=== PATIENT | female | born 2000 | race Caucasian/White ===

== ENCOUNTER 2018-02-09 20:54 | Emergency (ER) | payer SELFPAY ==
--- OUTSIDE RECORDS SUMMARY | 2018-02-09 20:57 | XMS REPORT | Clinical Summary ---
:2000 Author Organization [facility] Address [address] [place] [address] Phone Care Team Providers Name Role Phone Unavailable Primary Care Provider Unavailable Allergies Active Allergy Reactions Severity Noted Date Comments Onion Hives 05/18/2017 Tree Nut 06/17/2017 Latex Rash Low 04/07/2017 Acetaminophen-Pamabrom Rash Low 04/07/2017 Bumps in mouth Promethazine Anxiety Low 04/07/2017 Severe anxiety attacks Current Medications Prescription Sig. Disp. Refills Start End Status Date Date insulin regular If [id number], give 1unit 10 mL 3 04/09/20 Active (HUMULIN R,NOVOLIN R) If DG=[id number], give 2units 17 100 unit/mL injection If GF=[id number], give 4units If HI=[id number], give 6units If UZ=[id number], give 8units. medroxyPROGESTERone Inject 150 mg Active (DEPO-PROVERA) 150 intramuscularly mg/mL every 3 (three) injectionIndications: months. Contraception sertraline (ZOLOFT) 50 Take 50 mg by Active MG tabletIndications: mouth daily. Anxiety with Depression traZODone (DESYREL) 50 Take 50 mg by Active MG tabletIndications: mouth nightly. insomnia associated with depression ondansetron Take 4 mg by mouth Active (ZOFRAN-ODT) 4 MG every 8 (eight) disintegrating tablet hours as needed for Nausea. insulin regular Inject 0.1 mLs (10 10 mL 1 06/19/20 Active (HUMULIN R,NOVOLIN R) Units total) 17 100 unit/mL subcutaneously 3 injectionIndications: (three) times type 1 diabetes daily before meals mellitus Use as directed.. insulin degludec Inject 30 Units 2 Syringe 1 06/19/20 Active (TRESIBA FLEXTOUCH subcutaneously 17 U-100) 100 unit/mL (3 every evening. mL) InPn insulin glargine Inject 40 Units 04/09/ Discontinued (LANTUS) 100 unit/mL subcutaneously 2017 injection nightly Use as directed . insulin regular Inject 15 Units 04/09/ Discontinued (HUMULIN R,NOVOLIN R) subcutaneously 2016 100 unit/mL (three) times injectionIndications: daily before meals type 1 diabetes Use as directed . mellitus insulin glargine Inject 40 Units 10 mL 3 04/09/2004/09/ Discontinued (LANTUS) 100 unit/mL subcutaneously 17 2016 injection nightly Use as directed. insulin regular Inject 0.15 mLs 10 mL 3 04/09/20 Discontinued (HUMULIN R,NOVOLIN R) (15 Units total) 17 2016 100 unit/mL subcutaneously 3 injectionIndications: (three) times type 1 diabetes daily before meals mellitus Use as directed.. insulin regular Use as directed. 10 mL 3 04/09/2004/09/ Discontinued (HUMULIN R,NOVOLIN R) 2016 100 unit/mL injection insulin glargine Inject 40 Units 10 mL 3 04/09/2004/09/ Discontinued (LANTUS) 100 unit/mL subcutaneously 17 2016 injection nightly Use as directed. insulin glargine Inject 25 Units 10 mL 3 04/09/2006/19/ Discontinued (LANTUS) 100 unit/mL subcutaneously 2016 injection nightly Use as directed. cefdinir (OMNICEF) 300 Take 1 capsule 14 capsule 0 05/19/2005/19/ Discontinued MG capsule (300 mg total) by 2016 mouth 2 (two) times daily for 7 days. levoFLOXacin Take 1 tablet (250 7 tablet 0 05/19/2005/26/ (LEVAQUIN) 250 MG mg total) by mouth 2016 tablet daily for 7 days. Active Problems Problem Noted Date Diabetic ketoacidosis without coma associated with diabetes mellitus due 06/17 to underlying condition (HCC) Diabetic ketoacidosis without coma associated with type 1 diabetes 05/18/2017 mellitus (HCC) DKA, type 1 (HCC) 04/07/2017 Nausea 04/07/2017 Encounters Date Type Specialty Care Team Description 06/17/2017 - Hospital General Internal Davy Arevalo Diabetic ketoacidosis 06/19/2017 Encounter Medicine DO Jeffrey without coma Robbie Pichardo associated with MD William diabetes mellitus due to underlying condition (HCC) (Primary Dx);Nausea and vomiting, intractability of vomiting not specified, unspecified vomiting type;Metabolic acidosis;Nausea;Type 1 diabetes mellitus with ketoacidosis without coma (HCC);LUCILA (acute kidney injury) (HCC) 06/17/2017 Orders Only General Internal Medicine 05/18/2017 - [facility] General Internal [place] Diabetic ketoacidosis 05/19/2017 Encounter Medicine Freeman Díaz MD without coma Jamey Olivas associated with type 1 MD Shelly diabetes mellitus Smith, Obed Precious, (HCC) (Primary Dx) 04/07/2017 - Hospital Intensive Care Francis Sarmiento, Type 1 diabetes 04/09/2017 Encounter Maldonado Alvarez mellitus with ketoacidosis without Christina Hammond MD coma (HCC);Uncontrolled type 1 diabetes mellitus without complication (HCC);Hypoglycemia 04/07/2017 Orders Only General Internal Medicine after 02/08/2017 Immunizations Name Dates Previously Given Next Due Influenza Three-TIV PF 5+ YR 05/18/2017 Social History Tobacco Use Types Packs/Day Years Used Date Former Smoker Quit: 06/18/2016 Smokeless Tobacco: Never Used Alcohol Use Drinks/Week oz/Week Comments No Sex Assigned at Date Recorded Not on file Last Filed Vital Signs Vital Sign Reading Time Taken Blood Pressure 98/51 06/19/2017 11:24 AM [employer] Pulse 100 06/19/2017 11:24 AM [employer] Temperature 36.6 C (97.9 F) 06/19/2017 11:24 AM [employer] Respiratory Rate 20 06/19/2017 11:24 AM [employer] Oxygen Saturation 100% 06/19/2017 11:24 AM [employer] Inhaled Oxygen Concentration - - Weight 53.4 kg (117 lb 12.8 oz) 06/19/2017 12:00 AM [employer] Height 157.5 cm (5' 2") 06/17/2017 7:32 AM [employer] Body Mass Index 21.55 06/19/2017 12:00 AM [employer] Plan of Treatment Not on file Procedures Procedure Name Priority Date/Time Associated Diagnosis Comments CRITICAL CARE Routine 06/17/2017 8:43 AM Results for this [employer] procedure are in the results section. CRITICAL CARE Routine 05/18/2017 5:37 AM Diabetic ketoacidosis Results for this CDT without coma procedure are in associated with type 1 the results diabetes mellitus section. (HCC) after 02/08/2017 Results RHYTHM STRIP - SCAN (06/22/2017 2:03 PM)Only the most recent of3 resultswithin the time period is included.POC-Glucose meter (06/19/2017 10:22 AM)Only the most recent of89 resultswithin the time period is included. Component Value Ref Range POC-Glucose Meter 230 (H)Comment: TESTED AT [facility] [address] [facility] 70 - 110 mg/dL [facility] [address] Specimen Performing Laboratory Blood [address] [address] Basic Metabolic Panel (06/18/2017 8:56 AM)Only the most recent of18 resultswithin the time period is included. Component Value Ref Range Sodium 135 135 - 148 meq/L Potassium 3.5 3.5 - 5.5 meq/L Chloride 108 (H) 98 - 106 meq/L CO2 20 20 - 31 meq/L BUN 8 (L) 10 - 26 mg/dL Creatinine 0.90 0.50 - 1.20 mg/dL Glucose 164 (H) 70 - 110 mg/dL Calcium 8.6 8.5 - 10.5 mg/dL EGFR 81Comment: ESTIMATED GFR IS NOT ACCURATE mL/min/1.73 sq m CREATININE CLEARANCE IN PREDICTING GLOMERULAR FILTRATION RATE. ESTIMATED GFR IS NOT APPLICABLE FOR DIALYSIS PATIENTS. Specimen Performing Laboratory Blood [facility] [address] [place] [address] Glucose, serum (06/17/2017 6:45 PM)Only the most recent of8 resultswithin the time period is included. Component Value Ref Range Glucose 230 (H) 70 - 110 mg/dL Specimen Performing Laboratory Blood [facility] [address] [place] [address] Narrative If last glucose was less than 500, may do bedside glucose instead of serum glucose. Potassium (06/17/2017 2:02 PM)Only the most recent of5 resultswithin the time period is included. Component Value Ref Range Potassium 3.9 3.5 - 5.5 meq/L Specimen Performing Laboratory Blood [facility] [address] [place] [address] Narrative If last glucose was less than 500, may do bedside glucose instead of serum glucose. Hemoglobin A1c (06/17/2017 9:43 AM)Only the most recent of3 resultswithin the time period is included. Component Value Ref Range Hemoglobin A1C >14.0 (H) 4.3 - 6.1 % Specimen Performing Laboratory Blood - Line, Venous [facility] [address] [facility] [place] [address] Critical Care (06/17/2017 8:43 AM) Narrative Davy Arevalo, DO 06/17/20178:43 AM Critical Care Performed by: DAVY AREVALO Authorized by: DAVY AREVALO Total critical care time: 35 minutes Critical care time was exclusive of separately billable procedures and treating other patients. Critical care was necessary to treat or prevent imminent or life-threatening deterioration of the following conditions: metabolic crisis and endocrine crisis. Critical care was time spent personally by me on the following activities: discussions with consultants, ordering and review of laboratory studies, re-evaluation of patient's condition and review of old charts. ECG 12 lead (06/17/2017 8:03 AM)Only the most recent of3 resultswithin the time period is included. Specimen Performing Laboratory GE MUSE Narrative Ventricular Rate 97 BPM Atrial Rate 97 BPM P-R Interval 146 ms QRS Duration 72 ms Q-T Interval 372 ms QTC Calculation(Bazett) 472 ms P Hack[place] 67 degrees R [place] 61 degrees T [place] 40 degrees Normal sinus rhythm Normal ECG Procedure Note Interface, External Ris In - 06/17/2017 5:38 PM [employer] Ventricular Rate 97 BPM Atrial Rate 97 BPM P-R Interval 146 ms QRS Duration 72 ms Q-T Interval 372 ms QTC Calculation(Bazett) 472 ms P [place] 67 degrees R [place] 61 degrees T [place] 40 degrees Normal sinus rhythm Normal ECG CBC with platelet count + automated diff (06/17/2017 7:50 AM)Only the most recent of6 resultswithin the time period is included. Component Value Ref Range WBC 7.7 4.0 - 10.0 K/L RBC 5.18 (H) 4.00 - 5.00 M/L Hemoglobin 14.6 12.0 - 15.0 GM/DL Hematocrit 43.9 36.0 - 45.0 % MCV 84.8 82.0 - 99.0 fL MCH 28.1 27.0 - 33.0 pg MCHC 33.1 32.0 - 36.0 GM/DL RDW 12.3 12.0 - 15.0 % Platelets 421 150 - 430 K/CU MM MPV 8.0 6.5 - 10.5 fL nRBC 0 0 - 0 /100 WBC % Neutros 50 % % Lymphs 45 % % Monos 5 % % Eos 1 % % Baso 1 % # Neutros 3.80 1.80 - 8.00 K/L # Lymphs 3.40 1.48 - 4.50 K/L # Monos 0.40 0.00 - 1.30 K/L # Eos 0.10 0.00 - 0.50 K/L # Baso 0.00 0.00 - 0.20 K/L Specimen Performing Laboratory Blood [facility] [address] [place] [address] Screen, urine (06/17/2017 7:50 AM)Only the most recent of2 resultswithin the time period is included. Component Value Ref Range Preg Test, Ur Negative Specimen Performing Laboratory Urine - Urine, [place] [address] Urinalysis w/Microscopic (06/17/2017 7:50 AM)Only the most recent of2 resultswithin the time period is included. Component Value Ref Range Color, UA Colorless Clarity, UA Clear Specific Cromwell, UA 1.025 1.001 - 1.035 pH, UA 5.0 5.0 - 8.0 Protein, UA Negative Negative Glucose, UA >500 mg/dL (A) Negative Ketones, UA 80 mg/dL (A) Negative Bilirubin, UA Negative Negative Blood, UA Negative Negative Nitrite, UA Negative Negative Leukocytes, UA Negative Negative Urobilinogen, UA <1.0 0.2 - 1.0 mg/dL RBC, UA 0 /HPF WBC, UA <1 /HPF Mucus Rare Specimen Source Specimen Performing Laboratory Urine - Urine, [place] [address] CBC with platelet count + automated diff (06/17/2017 7:50 AM)Only the most recent of6 resultswithin the time period is included. Specimen Performing Laboratory Blood Narrative The following orders were created for panel order CBC with platelet count + automated diff. Procedure Abnormality Status --------- ------ CBC with platelet count ...[[id number]]AbnormalFinal result Please view results for these tests on the individual orders. Phosphorus (06/17/2017 7:50 AM)Only the most recent of6 resultswithin the time period is included. Component Value Ref Range Phosphorus 4.0 2.5 - 4.5 mg/dL Specimen Performing Laboratory [facility] [address] [place] [address] Magnesium (06/17/2017 7:50 AM)Only the most recent of6 resultswithin the time period is included. Component Value Ref Range Magnesium 2.0 1.5 - 3.0 mg/dL Specimen Performing Laboratory [facility] [address] [place] [address] pH, venous (06/17/2017 7:50 AM) Component Value Ref Range pH, Maxim 7.18 (LL) 7.32 - 7.[address] [facility] [address] [place] [address] Ketone, blood (06/17/2017 7:50 AM)Only the most recent of4 resultswithin the time period is included. Component Value Ref Range Ketones, Blood 6.1 (H) <0.4 mmol/L Specimen Performing Laboratory [facility] [address] [place] [address] Comprehensive metabolic panel (06/17/2017 7:50 AM) Component Value Ref Range Protein, Total 8.2 6.0 - 8.5 gm/dL Albumin 4.5 3.5 - 5.0 g/dL Alkaline Phosphatase 135 (H) 30 - 115 U/L Total Bilirubin 0.3 0.1 - 1.3 mg/dL Sodium 130 (L) 135 - 148 meq/L Potassium 4.6 3.5 - 5.5 meq/L Chloride 96 (L) 98 - 106 meq/L CO2 10 (LL) 20 - 31 meq/L BUN 16 10 - 26 mg/dL Creatinine 1.49 (H) 0.50 - 1.20 mg/dL Glucose 637 (HH) 70 - 110 mg/dL Calcium 9.5 8.5 - 10.5 mg/dL AST 12 5 - 40 U/L ALT 14 6 - 50 U/L EGFR 45Comment: ESTIMATED GFR IS NOT ACCURATE mL/min/1.73 sq m CREATININE CLEARANCE IN PREDICTING GLOMERULAR FILTRATION RATE. ESTIMATED GFR IS NOT APPLICABLE FOR DIALYSIS PATIENTS. Specimen Performing Laboratory Blood [facility] [address] [place] [address] Calcium, Ionized (05/18/2017 4:08 PM) Component Value Ref Range Calcium, Ion 1.13 1.12 - 1.27 mmol/L pH, Blood 7.30 Specimen Performing Laboratory Blood [facility] [address] [place] [address] Narrative Check serum Ionized Calcium level after 4 hours after IV Calcium replacement. Blood culture (05/18/2017 9:32 AM)Only the most recent of4 resultswithin the time period is included. Component Value Ref Range Result No growth in 5 days Specimen Performing Laboratory Blood - Arm, Left [facility] [address] [place] [address] Procalcitonin (05/18/2017 9:14 AM) Component Value Ref Range Procalcitonin <0.05 <0.05 ng/mL Specimen Performing Laboratory Blood [facility] [address] [place] [address] Narrative SEPSIS RISK (ng/mL) Low:0.05-0.50 Intermediate: 0.51-2.00 High: >=2.01 Urinalysis w/Microscopic + Reflex to Culture - Clear Catch (05/18/2017 5:45 AM) Component Value Ref Range Color, UA Colorless Clarity, UA Hazy Specific Cromwell, UA 1.022 1.001 - 1.035 pH, UA 5.0 5.0 - 8.0 Protein, UA Negative Negative Glucose, UA >500 mg/dL (A) Negative Ketones, UA 80 mg/dL (A) Negative Bilirubin, UA Negative Negative Blood, UA Large (A) Negative Nitrite, UA Negative Negative Leukocytes, UA Negative Negative Urobilinogen, UA <1.0 0.2 - 1.0 mg/dL RBC, UA 170 /HPF WBC, UA 27 /HPF Mucus Rare Specimen Source Specimen Performing Laboratory Urine [facility] [address] [place] [address] Influenza antigen A & B (Rapid) (05/18/2017 5:45 AM) Component Value Ref Range Rapid Influenza A Antigen Negative Negative Rapid influenza B Antigen Negative Negative Specimen Performing Laboratory Nasopharyngeal - Nasal Mucosa [facility] [address] [place] [address] Urine culture (05/18/2017 5:45 AM)Only the most recent of2 resultswithin the time period is included. Component Value Ref Range Result Result 20-29,000 col/mL Escherichia coli (A) Result <10,000 col/mL Beta-hemolytic streptococcus group B, by serological grouping (A)Comment: If this patient is , please refer to ACOG guidelines for appropriate screening and management of colonized women. Specimen Performing Laboratory Urine [facility] [address] [place] [address] Narrative 10-19,000 col/mL skin christophe Organism Antibiotic Method Susceptibility Escherichia coli Amikacin <=2: Susceptible Escherichia coli Ampicillin + Sulbactam Resistant Escherichia coli Aztreonam <=1: Susceptible Escherichia coli Cefepime <=1: Susceptible Escherichia coli Cefoxitin <=4: Susceptible Escherichia coli Ceftazidime <=1: Susceptible Escherichia coli Ceftriaxone <=1: Susceptible Escherichia coli Ertapenem <=0.5: Susceptible Escherichia coli Gentamicin <=1: Susceptible Escherichia coli Levofloxacin <=0.12: Susceptible Escherichia coli Meropenem <=0.25: Susceptible Escherichia coli Nitrofurantoin <=16: Susceptible Escherichia coli Piperacillin + Tazobactam <=4: Susceptible Escherichia coli Tobramycin <=1: Susceptible Escherichia coli Trimethoprim + Sulfamethoxazole <=20: Susceptible Critical Care (05/18/2017 5:37 AM) Narrative Rafa Hernandez MD 05/18/20175:37 AM Critical Care Performed by: RAFA HERNANDEZ Authorized by: RAFA HERNANDEZ Critical care was necessary to treat or prevent imminent or life-threatening deterioration of the following conditions: endocrine crisis. Critical care was time spent personally by me on the following activities: blood draw for specimens, development of treatment plan with patient or surrogate, discussions with consultants, discussions with primary provider, evaluation of patient's response to treatment, ordering and performing treatments and interventions, ordering and review of laboratory studies, ordering and review of radiographic studies and re-evaluation of patient's condition. XR chest 1 view portable / bedside (05/18/2017 5:24 AM)Only the most recent of2 resultswithin the time period is included. Specimen Performing Laboratory GE RIS Narrative FINAL REPORT Comparison examination: 04/07/2017 No pneumothorax, focal pulmonary consolidation, or significant pleural effusion. Normal cardiomediastinal contours. Normal skeleton and soft tissues. Impression: No acute abnormality. Signed: Joesph Foy MD Report Verified Date/Time:05/18/2017 05:52:18 Reading Location: [address] Transitional Reading Room Procedure Note Interface, External Ris In - 05/18/2017 5:54 AM CDT FINAL REPORT Comparison examination: 04/07/2017 No pneumothorax, focal pulmonary consolidation, or significant pleural effusion. Normal cardiomediastinal contours. Normal skeleton and soft tissues. Impression: No acute abnormality. Signed: Joesph Foy MD Report Verified Date/Time: 05/18/2017 05:52:18 Reading Location: [address] Transitional Reading Room Blood gas, venous (05/18/2017 4:54 AM)Only the most recent of2 resultswithin the time period is included. Component Value Ref Range pH, Maxim 7.17 (LL) 7.32 - 7.42 pCO2, Maxim 30 (L) 41 - 51 mmHg pO2, Maxim 35 25 - 40 mmHg O2 Sat, Maxim 53.6 40.0 - 70.0 % HCO3, Maxim 11 (L) 21 - 29 mmol/L Base Excess, Maxim -16.5 (L) -2.0 - 3.0 mmol/L Patient Temperature 36.9 C FIO2 21.0 % Specimen Performing Laboratory Blood [facility] [address] [place] [address] Hepatic function panel (05/18/2017 4:54 AM) Component Value Ref Range Protein, Total 7.9 6.0 - 8.5 gm/dL Albumin 4.1 3.5 - 5.0 g/dL Total Bilirubin 0.4 0.1 - 1.3 mg/dL Bilirubin, Direct 0.2 0.0 - 0.5 mg/dL Alkaline Phosphatase 136 (H) 30 - 115 U/L AST 11 5 - 40 U/L ALT 10 6 - 50 U/L Specimen Performing Laboratory [facility] [address] [place] [address] Narrative If last glucose was less than 500, may do bedside glucose instead of serum glucose. Specimen slightly lipemic Manual Differential (04/09/2017 5:24 AM)Only the most recent of2 resultswithin the time period is included. Component Value Ref Range Total Counted Specimen Performing Laboratory Blood [address] [address] TSH/Free T4 If Indicated (04/07/2017 4:18 PM) Component Value Ref Range TSH 0.95 0.35 - 4.94 uIU/mL Specimen Performing Laboratory Blood [address] [address] Troponin I (04/07/2017 4:18 PM) Component Value Ref Range Troponin I <0.01 0.00 - 0.03 ng/mL Specimen Performing Laboratory Blood [address] [address] Narrative Effective 06/20/2014: Reference Range Change New: 0.00-0.03 Previous 0.00-0.15 Troponin I (TnI) levels must be interpreted in the context of the presenting symptoms and the clinical findings. Elevated TnI levels indicate myocardial damage, but are not specific for ischemic heart disease. Elevated TnI levels are seen in patients with other cardiac conditions (including myocarditis and congestive heart failure), and slight TnI elevations occur in patients with other conditions, including sepsis, renal failure, acidosis, acute neurological disease, and persistent tachyarrhythmia. Lactic acid, venous, whole blood (04/07/2017 4:18 PM) Component Value Ref Range Lactate, Venous 1.1 0.5 - 2.2 mmol/L Specimen Performing Laboratory Blood [address] [address] Narrative Effective 12/05/2015: Units/Reference Range Change New: 0.5-2.2 mmol/LPrevious: 5-20 mg/dL Lipase (04/07/2017 4:18 PM) Component Value Ref Range Lipase 33 8 - 78 U/L Specimen Performing Laboratory Blood [address] [address] Amylase (04/07/2017 4:18 PM) Component Value Ref Range Amylase 66 25 - 125 U/L Specimen Performing Laboratory Blood [address] [address] after 02/08/2017
--- OUTSIDE RECORDS SUMMARY | 2018-02-09 20:59 | XMS REPORT ---
:2000 [facility] Wilfred Gallardo [address] [place] [id number] Care Team Providers Name Role Phone DAVY CRAWLEY Unavailable Unavailable RAFA HODGES Unavailable Unavailable TOMER CHACON Unavailable Unavailable Problems This patient has no known problems. Allergies, Adverse Reactions, Alerts This patient has no known allergies or adverse reactions. Medications This patient has no known medications. Results Test Description Test Time Test Comments Text Results Atomic Results Result Comments POCT-GLUCOSE METER 2017-06-19 10:41:00 Test Item Value Reference Range Comments POC-GLUCOSE METER (BEAKER) (test 230 mg/dL 70-110 TESTED AT [address] ywqi=1517) [facility] [address] POCT-GLUCOSE [id number] 08:32:00 Test Item Value Reference Range Comments POC-GLUCOSE METER (BEAKER) 70 mg/dL 70-110 TESTED AT [facility] [id number] [place] [address] (test ogcg=0674) [facility] [address] POCT-GLUCOSE [id number] 05:13:00 Test Item Value Reference Range Comments POC-GLUCOSE METER (BEAKER) 152 mg/dL 70-110 TESTED AT [facility] [id number] [place] [address] (test ujed=9187) [facility] [address] POCT-GLUCOSE [id number] 04:14:00 Test Item Value Reference Range Comments POC-GLUCOSE METER (BEAKER) 55 mg/dL 70-110 TESTED AT [facility] [id number] [place] [address] (test vbxb=3185) [facility] [address] POCT-GLUCOSE [id number] 20:37:00 Test Item Value Reference Range Comments POC-GLUCOSE METER (BEAKER) 204 mg/dL 70-110 TESTED AT [facility] [id number] [place] [address] (test legx=3641) [facility] [address] POCT-GLUCOSE [id number] 19:01:00 Test Item Value Reference Range Comments POC-GLUCOSE METER (BEAKER) 88 mg/dL 70-110 TESTED AT [facility] [address] [facility] (test enuo=2893) [facility] [address] POCT-GLUCOSE [id number] 17:27:00 Test Item Value Reference Range Comments POC-GLUCOSE METER (BEAKER) 253 mg/dL 70-110 TESTED AT [facility] [id number] [place] [address] (test dxtp=0974) [facility] [address] POCT-GLUCOSE [id number] 15:36:00 Test Item Value Reference Range Comments POC-GLUCOSE METER (BEAKER) 366 mg/dL 70-110 TESTED AT [facility] [id number] [place] [address] (test nkma=5361) [facility] [address] POCT-GLUCOSE [id number] 11:51:00 Test Item Value Reference Range Comments POC-GLUCOSE METER (BEAKER) 194 mg/dL 70-110 TESTED AT [facility] [id number] [place] [address] (test zivl=4913) [facility] [address] POCT-GLUCOSE [id number] 10:19:00 Test Item Value Reference Range Comments POC-GLUCOSE METER (BEAKER) 147 mg/dL 70-110 TESTED AT [facility] [id number] [place] [address] (test dyaq=9952) [facility] [address] BASIC METABOLIC [id number] 09:23:00 Test Item Value Reference Range Comments SODIUM (BEAKER) (test 135 meq/L 135-148 zlwc=459) POTASSIUM (BEAKER) (test 3.5 meq/L 3.5-5.5 ukea=652) CHLORIDE (BEAKER) (test 108 meq/L 98-106 cvly=413) CO2 (BEAKER) (test 20 meq/L 20-31 xywk=633) BLOOD UREA NITROGEN 8 mg/dL 10-26 (BEAKER) (test tfog=483) CREATININE (BEAKER) (test 0.90 mg/dL 0.50-1.20 cnrg=888) GLUCOSE RANDOM (BEAKER) 164 mg/dL 70-110 (test kbzu=525) CALCIUM (BEAKER) (test 8.6 mg/dL 8.5-10.5 secw=798) EGFR (BEAKER) (test 81 mL/min/1.73 sq m ESTIMATED GFR IS NOT ajqe=9477) ACCURATE CREATININE CLEARANCE IN PREDICTING GLOMERULAR FILTRATION RATE. ESTIMATED GFR IS NOT APPLICABLE FOR DIALYSIS PATIENTS. POCT-GLUCOSE [id number] 08:02:00 Test Item Value Reference Range Comments POC-GLUCOSE METER (BEAKER) 161 mg/dL 70-110 TESTED AT [facility] [address] [facility] (test letz=7096) [facility] [address] POCT-GLUCOSE [id number] 07:03:00 Test Item Value Reference Range Comments POC-GLUCOSE METER (BEAKER) 151 mg/dL 70-110 TESTED AT [facility] [id number] [place] [address] (test mbox=0861) [facility] [address] POCT-GLUCOSE [id number] 05:08:00 Test Item Value Reference Range Comments POC-GLUCOSE METER (BEAKER) 158 mg/dL 70-110 TESTED AT [facility] [id number] [place] [address] (test wjmw=7676) [facility] [address] BASIC METABOLIC [id number] 04:51:00 Test Item Value Reference Range Comments SODIUM (BEAKER) (test 137 meq/L 135-148 sbwl=213) POTASSIUM (BEAKER) (test 3.3 meq/L 3.5-5.5 mcas=135) CHLORIDE (BEAKER) (test 111 meq/L 98-106 lufj=005) CO2 (BEAKER) (test 15 meq/L 20-31 aqjf=962) BLOOD UREA NITROGEN 9 mg/dL 10-26 (BEAKER) (test jfrt=187) CREATININE (BEAKER) (test 0.84 mg/dL 0.50-1.20 nuyi=313) GLUCOSE RANDOM (BEAKER) 160 mg/dL 70-110 (test fkjb=230) CALCIUM (BEAKER) (test 8.3 mg/dL 8.5-10.5 knev=447) EGFR (BEAKER) (test 87 mL/min/1.73 sq m ESTIMATED GFR IS NOT kaun=5229) ACCURATE CREATININE CLEARANCE IN PREDICTING GLOMERULAR FILTRATION RATE. ESTIMATED GFR IS NOT APPLICABLE FOR DIALYSIS PATIENTS. POCT-GLUCOSE [id number] 03:03:00 Test Item Value Reference Range Comments POC-GLUCOSE METER (BEAKER) 153 mg/dL 70-110 TESTED AT [facility] [id number] [place] [address] (test plln=3798) WAY [facility] [address] POCT-GLUCOSE [id number] 02:09:00 Test Item Value Reference Range Comments POC-GLUCOSE METER (BEAKER) 159 mg/dL 70-110 TESTED AT [facility] [id number] [place] [address] (test rloq=6222) [facility] [address] POCT-GLUCOSE [id number] 01:08:00 Test Item Value Reference Range Comments POC-GLUCOSE METER (BEAKER) 174 mg/dL 70-110 TESTED AT [address] (test sjgd=2271) [facility] [address] BASIC METABOLIC [id number] 00:38:00 Test Item Value Reference Range Comments SODIUM (BEAKER) (test 137 meq/L 135-148 fnug=152) POTASSIUM (BEAKER) (test 3.8 meq/L 3.5-5.5 mdix=882) CHLORIDE (BEAKER) (test 111 meq/L 98-106 kvva=449) CO2 (BEAKER) (test 12 meq/L 20-31 zrde=816) BLOOD UREA NITROGEN 9 mg/dL 10-26 (BEAKER) (test mwet=311) CREATININE (BEAKER) (test 0.91 mg/dL 0.50-1.20 kgak=418) GLUCOSE RANDOM (BEAKER) 173 mg/dL 70-110 (test ntrw=532) CALCIUM (BEAKER) (test 8.4 mg/dL 8.5-10.5 cncy=517) EGFR (BEAKER) (test 80 mL/min/1.73 sq m ESTIMATED GFR IS NOT ufao=2528) ACCURATE CREATININE CLEARANCE IN PREDICTING GLOMERULAR FILTRATION RATE. ESTIMATED GFR IS NOT APPLICABLE FOR DIALYSIS PATIENTS. POCT-GLUCOSE [id number] 00:37:00 Test Item Value Reference Range Comments POC-GLUCOSE METER (BEAKER) 198 mg/dL 70-110 TESTED AT [facility] [id number] [place] [address] (test buqu=8549) [facility] [address] POCT-GLUCOSE [id number] 00:14:00 Test Item Value Reference Range Comments POC-GLUCOSE METER (BEAKER) 162 mg/dL 70-110 TESTED AT [address] (test ouiu=4738) [facility] [address] POCT-GLUCOSE [id number] 23:39:00 Test Item Value Reference Range Comments POC-GLUCOSE METER (BEAKER) 149 mg/dL 70-110 TESTED AT [facility] [id number] [place] [address] (test wdvz=5919) [facility] [address] POCT-GLUCOSE [id number] 23:10:00 Test Item Value Reference Range Comments POC-GLUCOSE METER (BEAKER) 134 mg/dL 70-110 TESTED AT [facility] [id number] [place] [address] (test kthq=9087) [facility] [address] POCT-GLUCOSE [id number] 22:41:00 Test Item Value Reference Range Comments POC-GLUCOSE METER (BEAKER) 112 mg/dL 70-110 TESTED AT [facility] [id number] [place] [address] (test qjar=4554) [facility] [address] POCT-GLUCOSE [id number] 21:59:00 Test Item Value Reference Range Comments POC-GLUCOSE METER (BEAKER) 95 mg/dL 70-110 TESTED AT [facility] [id number] [place] [address] (test ykav=8658) [facility] [address] POCT-GLUCOSE [id number] 21:39:00 Test Item Value Reference Range Comments POC-GLUCOSE METER (BEAKER) 110 mg/dL 70-110 TESTED AT [facility] [id number] [place] [address] (test izuk=9963) [facility] [address] POCT-GLUCOSE [id number] 21:07:00 Test Item Value Reference Range Comments POC-GLUCOSE METER (BEAKER) 114 mg/dL 70-110 TESTED AT [facility] [id number] [place] [address] (test ozis=7380) [facility] [address] BASIC METABOLIC [id number] 20:47:00 Test Item Value Reference Range Comments SODIUM (BEAKER) (test 139 meq/L 135-148 mfds=735) POTASSIUM (BEAKER) (test 3.7 meq/L 3.5-5.5 dwfx=040) CHLORIDE (BEAKER) (test 112 meq/L 98-106 mgxh=695) CO2 (BEAKER) (test 12 meq/L 20-31 zfcu=648) BLOOD UREA NITROGEN 9 mg/dL 10-26 (BEAKER) (test tgxo=204) CREATININE (BEAKER) (test 1.03 mg/dL 0.50-1.20 zyix=190) GLUCOSE RANDOM (BEAKER) 162 mg/dL 70-110 (test bqob=023) CALCIUM (BEAKER) (test 8.6 mg/dL 8.5-10.5 suvk=019) EGFR (BEAKER) (test 69 mL/min/1.73 sq m ESTIMATED GFR IS NOT apdn=0702) ACCURATE CREATININE CLEARANCE IN PREDICTING GLOMERULAR FILTRATION RATE. ESTIMATED GFR IS NOT APPLICABLE FOR DIALYSIS PATIENTS. POCT-GLUCOSE [id number] 20:17:00 Test Item Value Reference Range Comments POC-GLUCOSE METER (BEAKER) 176 mg/dL 70-110 TESTED AT [facility] [address] [facility] (test mpyj=5376) [facility] [address] [id number] 19:09:00 Test Item Value Reference Range Comments GLUCOSE RANDOM (BEAKER) (test damj=072) 230 mg/dL 70-110 If last glucose was less than 500, may do bedside glucose instead of serum glucose.POCT-GLUCOSE [id number] 18:53:00 Test Item Value Reference Range Comments POC-GLUCOSE METER (BEAKER) 212 mg/dL 70-110 TESTED AT [facility] [address] [facility] (test cind=5019) WAY [facility] [address] POCT-GLUCOSE [id number] 17:14:00 Test Item Value Reference Range Comments POC-GLUCOSE METER (BEAKER) 145 mg/dL 70-110 TESTED AT [facility] [address] [facility] (test wijy=2509) [facility] [address] BASIC METABOLIC [id number] 16:51:00 Test Item Value Reference Range Comments SODIUM (BEAKER) (test 140 meq/L 135-148 ogdn=891) POTASSIUM (BEAKER) (test 3.9 meq/L 3.5-5.5 ztys=236) CHLORIDE (BEAKER) (test 114 meq/L 98-106 puxc=155) CO2 (BEAKER) (test 14 meq/L 20-31 dbxa=632) BLOOD UREA NITROGEN 10 mg/dL 10-26 (BEAKER) (test xivs=853) CREATININE (BEAKER) (test 0.94 mg/dL 0.50-1.20 xxpv=542) GLUCOSE RANDOM (BEAKER) 126 mg/dL 70-110 (test zedu=347) CALCIUM (BEAKER) (test 8.4 mg/dL 8.5-10.5 xmnd=672) EGFR (BEAKER) (test 77 mL/min/1.73 sq m ESTIMATED GFR IS NOT gnhb=3040) ACCURATE CREATININE CLEARANCE IN PREDICTING GLOMERULAR FILTRATION RATE. ESTIMATED GFR IS NOT APPLICABLE FOR DIALYSIS PATIENTS. If last glucose was less than 500, may do bedside glucose instead of serum glucose.[id number] 16:47:00 Test Item Value Reference Range Comments GLUCOSE RANDOM (BEAKER) (test ghhv=786) 126 mg/dL 70-110 If last glucose was less than 500, may do bedside glucose instead of serum glucose.POCT-GLUCOSE [id number] 16:04:00 Test Item Value Reference Range Comments POC-GLUCOSE METER (BEAKER) 119 mg/dL 70-110 TESTED AT [address] (test oqja=1787) [place] [address] [id number] 14:30:00 Test Item Value Reference Range Comments POTASSIUM (BEAKER) (test jsff=497) 3.9 meq/L 3.5-5.5 If last glucose was less than 500, may do bedside glucose instead of serum glucose.[id number] 14:30:00 Test Item Value Reference Range Comments GLUCOSE RANDOM (BEAKER) (test hnhm=170) 190 mg/dL 70-110 If last glucose was less than 500, may do bedside glucose instead of serum glucose.POCT-GLUCOSE [id number] 14:05:00 Test Item Value Reference Range Comments POC-GLUCOSE METER (BEAKER) 194 mg/dL 70-110 TESTED AT [address] (test zfxs=5338) [place] [address] POCT-GLUCOSE [id number] 13:15:00 Test Item Value Reference Range Comments POC-GLUCOSE METER (BEAKER) 229 mg/dL 70-110 TESTED AT [address] (test gztj=7584) [place] [address] BASIC METABOLIC [id number] 12:44:00 Test Item Value Reference Range Comments SODIUM (BEAKER) (test 136 meq/L 135-148 vget=201) POTASSIUM (BEAKER) (test 4.0 meq/L 3.5-5.5 ibde=779) CHLORIDE (BEAKER) (test 111 meq/L 98-106 bahy=000) CO2 (BEAKER) (test 12 meq/L 20-31 nckx=112) BLOOD UREA NITROGEN 12 mg/dL 10-26 (BEAKER) (test nlmc=777) CREATININE (BEAKER) (test 0.99 mg/dL 0.50-1.20 yluy=842) GLUCOSE RANDOM (BEAKER) 258 mg/dL 70-110 (test bbsp=963) CALCIUM (BEAKER) (test 8.1 mg/dL 8.5-10.5 ajpf=016) EGFR (BEAKER) (test 72 mL/min/1.73 sq m ESTIMATED GFR IS NOT ikxk=6822) ACCURATE CREATININE CLEARANCE IN PREDICTING GLOMERULAR FILTRATION RATE. ESTIMATED GFR IS NOT APPLICABLE FOR DIALYSIS PATIENTS. If last glucose was less than 500, may do bedside glucose instead of serum glucose.[id number] 12:43:00 Test Item Value Reference Range Comments GLUCOSE RANDOM (BEAKER) (test fkwz=532) 258 mg/dL 70-110 If last glucose was less than 500, may do bedside glucose instead of serum glucose.POCT-GLUCOSE [id number] 12:03:00 Test Item Value Reference Range Comments POC-GLUCOSE METER (BEAKER) 238 mg/dL 70-110 TESTED AT [address] (test sddf=0723) [facility] [address] POCT-GLUCOSE [id number] 11:05:00 Test Item Value Reference Range Comments POC-GLUCOSE METER (BEAKER) 261 mg/dL 70-110 TESTED AT [address] (test ednl=0631) [facility] [address] HEMOGLOBIN [id number] 10:07:00 Test Item Value Reference Range Comments HEMOGLOBIN A1C (BEAKER) (test qmrp=911) > % 4.3-6.1 [id number] 10:00:00 Test Item Value Reference Range Comments GLUCOSE RANDOM (BEAKER) (test kcuz=063) 441 mg/dL 70-110 If last glucose was less than 500, may do bedside glucose instead of serum glucose.[id number] 09:55:00 Test Item Value Reference Range Comments POTASSIUM (BEAKER) (test bwya=684) 4.1 meq/L 3.5-5.5 If last glucose was less than 500, may do bedside glucose instead of serum glucose.POCT-GLUCOSE [id number] 09:18:00 Test Item Value Reference Range Comments POC-GLUCOSE METER (BEAKER) > mg/dL 70-110 OUTSIDE MEASURING RANGETESTED AT (test hdns=6690) [facility] [address] [facility] [address] [id number] 09:15:00 Test Item Value Reference Range Comments GLUCOSE RANDOM (BEAKER) (test jknm=564) 585 mg/dL 70-110 If last glucose was less than 500, may do bedside glucose instead of serum glucose.COMPREHENSIVE METABOLIC [id number] 08:30:00 Test Item Value Reference Range Comments TOTAL PROTEIN (BEAKER) 8.2 gm/dL 6.0-8.5 (test adae=497) ALBUMIN (BEAKER) (test 4.5 g/dL 3.5-5.0 ltir=7446) ALKALINE PHOSPHATASE 135 U/L 30-115 (BEAKER) (test ojif=979) BILIRUBIN TOTAL (BEAKER) 0.3 mg/dL 0.1-1.3 (test udkf=865) SODIUM (BEAKER) (test 130 meq/L 135-148 xqwo=990) POTASSIUM (BEAKER) (test 4.6 meq/L 3.5-5.5 mqse=218) CHLORIDE (BEAKER) (test 96 meq/L 98-106 nnas=547) CO2 (BEAKER) (test 10 meq/L 20-31 wuvz=475) BLOOD UREA NITROGEN 16 mg/dL 10-26 (BEAKER) (test gpxm=369) CREATININE (BEAKER) (test 1.49 mg/dL 0.50-1.20 dwhq=188) GLUCOSE RANDOM (BEAKER) 637 mg/dL 70-110 (test cdmx=690) CALCIUM (BEAKER) (test 9.5 mg/dL 8.5-10.5 onyp=340) AST (SGOT) (BEAKER) (test 12 U/L 5-40 fpnl=161) ALT (SGPT) (BEAKER) (test 14 U/L 6-50 rrpq=618) EGFR (BEAKER) (test 45 mL/min/1.73 sq m ESTIMATED GFR IS NOT ljrf=2086) ACCURATE CREATININE CLEARANCE IN PREDICTING GLOMERULAR FILTRATION RATE. ESTIMATED GFR IS NOT APPLICABLE FOR DIALYSIS PATIENTS. CBC W/PLT COUNT & AUTO [id number] 08:29:00 Test Item Value Reference Range Comments WHITE BLOOD CELL COUNT (BEAKER) (test nqam=631) 7.7 K/ L 4.0-10.0 RED BLOOD CELL COUNT (BEAKER) (test zvhm=728) 5.18 M/ L 4.00-5.00 HEMOGLOBIN (BEAKER) (test yjpm=306) 14.6 GM/DL 12.0-15.0 HEMATOCRIT (BEAKER) (test uqru=454) 43.9 % 36.0-45.0 MEAN CORPUSCULAR VOLUME (BEAKER) (test kvlh=396) 84.8 fL 82.0-99.0 MEAN CORPUSCULAR HEMOGLOBIN (BEAKER) (test 28.1 pg 27.0-33.0 jrpn=670) MEAN CORPUSCULAR HEMOGLOBIN CONC (BEAKER) (test 33.1 GM/DL 32.0-36.0 bsfn=498) RED CELL DISTRIBUTION WIDTH (BEAKER) (test 12.3 % 12.0-15.0 cxjq=128) PLATELET COUNT (BEAKER) (test cmri=110) 421 K/CU MM 150-430 MEAN PLATELET VOLUME (BEAKER) (test xmkd=313) 8.0 fL 6.5-10.5 NUCLEATED RED BLOOD CELLS (BEAKER) (test 0 /100 WBC 0-0 wmjm=686) NEUTROPHILS RELATIVE PERCENT (BEAKER) (test 50 % xcwp=802) LYMPHOCYTES RELATIVE PERCENT (BEAKER) (test 45 % gakx=368) MONOCYTES RELATIVE PERCENT (BEAKER) (test 5 % byfi=873) EOSINOPHILS RELATIVE PERCENT (BEAKER) (test 1 % cvvk=410) BASOPHILS RELATIVE PERCENT (BEAKER) (test 1 % spzz=485) NEUTROPHILS ABSOLUTE COUNT (BEAKER) (test 3.80 K/ L 1.80-8.00 qvpe=149) LYMPHOCYTES ABSOLUTE COUNT (BEAKER) (test 3.40 K/ L 1.48-4.50 wtde=423) MONOCYTES ABSOLUTE COUNT (BEAKER) (test 0.40 K/ L 0.00-1.30 tbzn=623) EOSINOPHILS ABSOLUTE COUNT (BEAKER) (test 0.10 K/ L 0.00-0.50 jrei=409) BASOPHILS ABSOLUTE COUNT (BEAKER) (test 0.00 K/ L 0.00-0.20 ardw=176) [id number] 08:25:00 Test Item Value Reference Range Comments PHOSPHORUS (BEAKER) (test yjuh=084) 4.0 mg/dL 2.5-4.5 [id number] 08:25:00 Test Item Value Reference Range Comments MAGNESIUM (BEAKER) (test tcxx=488) 2.0 mg/dL 1.5-3.0 SCREEN, [id number] 08:16:00 Test Item Value Reference Range Comments TEST URINE (BEAKER) (test bgvw=364) Negative URINALYSIS W/ [id number] 08:16:00 Test Item Value Reference Range Comments COLOR (BEAKER) (test gugt=657) Colorless CLARITY (BEAKER) (test xlyp=086) Clear SPECIFIC GRAVITY UA (BEAKER) (test qvte=805) 1.025 1.001-1.035 PH UA (BEAKER) (test lsbv=877) 5.0 5.0-8.0 PROTEIN UA (BEAKER) (test arga=600) Negative Negative GLUCOSE UA (BEAKER) (test hsnz=750) >500 mg/dL Negative KETONES UA (BEAKER) (test lkrm=064) 80 mg/dL Negative BILIRUBIN UA (BEAKER) (test sfix=689) Negative Negative BLOOD UA (BEAKER) (test sjjm=289) Negative Negative NITRITE UA (BEAKER) (test eich=948) Negative Negative LEUKOCYTE ESTERASE UA (BEAKER) (test cvbs=964) Negative Negative UROBILINOGEN UA (BEAKER) (test pchf=184) < mg/dL 0.2-1.0 RBC UA (BEAKER) (test bdrw=013) 0 /HPF WBC UA (BEAKER) (test xbrb=722) < /HPF MUCUS (BEAKER) (test jisy=6957) Rare SOURCE(BEAKER) (test bkjs=0062) KETONE, [id number] 08:09:00 Test Item Value Reference Range Comments KETONES, BLOOD (BEAKER) (test omil=0351) 6.1 mmol/L <0.4 PH, [id number] 08:08:00 Test Item Value Reference Range Comments PH VENOUS (BEAKER) (test kukf=196) 7.18 7.32-7.42 BLOOD [id number] 13:00:00 Test Item Value Reference Range Comments CULTURE (BEAKER) (test hjmr=1382) No growth in 5 days BLOOD [id number] 13:00:00 Test Item Value Reference Range Comments CULTURE (BEAKER) (test edwt=3801) No growth in 5 days POCT-GLUCOSE [id number] 17:12:00 Test Item Value Reference Range Comments POC-GLUCOSE METER (BEAKER) 136 mg/dL 70-110 TESTED AT [facility] [address] [facility] (test slhf=1045) [facility] [address] POCT-GLUCOSE [id number] 16:37:00 Test Item Value Reference Range Comments POC-GLUCOSE METER (BEAKER) 45 mg/dL 70-110 TESTED AT [facility] [address] [facility] (test nbrd=1367) [facility] [address] POCT-GLUCOSE [id number] 11:32:00 Test Item Value Reference Range Comments POC-GLUCOSE METER (BEAKER) 98 mg/dL 70-110 TESTED AT [facility] [address] [facility] (test fpzb=8555) [facility] [address] POCT-GLUCOSE [id number] 06:45:00 Test Item Value Reference Range Comments POC-GLUCOSE METER (BEAKER) 85 mg/dL 70-110 TESTED AT [facility] [address] [facility] (test ejrr=6713) [facility] [address] [id number] 06:25:00 Test Item Value Reference Range Comments PHOSPHORUS (BEAKER) (test shxn=495) 2.4 mg/dL 2.5-4.5 [id number] 06:25:00 Test Item Value Reference Range Comments MAGNESIUM (BEAKER) (test fqos=373) 2.4 mg/dL 1.5-3.0 BASIC METABOLIC [id number] 06:25:00 Test Item Value Reference Range Comments SODIUM (BEAKER) (test 138 meq/L 135-148 tzzc=454) POTASSIUM (BEAKER) (test 3.9 meq/L 3.5-5.5 xgcl=778) CHLORIDE (BEAKER) (test 110 meq/L 98-106 pkfd=315) CO2 (BEAKER) (test 19 meq/L 20-31 kbhj=154) BLOOD UREA NITROGEN 3 mg/dL 10-26 (BEAKER) (test srso=232) CREATININE (BEAKER) (test 0.79 mg/dL 0.50-1.20 jyit=272) GLUCOSE RANDOM (BEAKER) 104 mg/dL 70-110 (test zllg=945) CALCIUM (BEAKER) (test 8.6 mg/dL 8.5-10.5 gwjm=912) EGFR (BEAKER) (test 94 mL/min/1.73 sq m ESTIMATED GFR IS NOT gldn=0135) ACCURATE CREATININE CLEARANCE IN PREDICTING GLOMERULAR FILTRATION RATE. ESTIMATED GFR IS NOT APPLICABLE FOR DIALYSIS PATIENTS. CBC W/PLT COUNT & AUTO [id number] 05:58:00 Test Item Value Reference Range Comments WHITE BLOOD CELL COUNT (BEAKER) (test mxwl=774) 9.2 K/ L 4.0-10.0 RED BLOOD CELL COUNT (BEAKER) (test fjxx=407) 4.36 M/ L 4.00-5.00 HEMOGLOBIN (BEAKER) (test glra=085) 12.6 GM/DL 12.0-15.0 HEMATOCRIT (BEAKER) (test wlxq=536) 37.0 % 36.0-45.0 MEAN CORPUSCULAR VOLUME (BEAKER) (test foby=325) 84.8 fL 82.0-99.0 MEAN CORPUSCULAR HEMOGLOBIN (BEAKER) (test 29.0 pg 27.0-33.0 thzg=600) MEAN CORPUSCULAR HEMOGLOBIN CONC (BEAKER) (test 34.2 GM/DL 32.0-36.0 qyan=857) RED CELL DISTRIBUTION WIDTH (BEAKER) (test 12.5 % 12.0-15.0 wxgs=907) PLATELET COUNT (BEAKER) (test nrmv=064) 359 K/CU MM 150-430 MEAN PLATELET VOLUME (BEAKER) (test perp=000) 7.2 fL 6.5-10.5 NUCLEATED RED BLOOD CELLS (BEAKER) (test 0 /100 WBC 0-0 cuox=651) NEUTROPHILS RELATIVE PERCENT (BEAKER) (test 53 % piwk=273) LYMPHOCYTES RELATIVE PERCENT (BEAKER) (test 40 % nkmj=369) MONOCYTES RELATIVE PERCENT (BEAKER) (test 5 % egjh=518) EOSINOPHILS RELATIVE PERCENT (BEAKER) (test 2 % vwld=152) BASOPHILS RELATIVE PERCENT (BEAKER) (test 0 % nyly=137) NEUTROPHILS ABSOLUTE COUNT (BEAKER) (test 4.90 K/ L 1.80-8.00 ztgt=460) LYMPHOCYTES ABSOLUTE COUNT (BEAKER) (test 3.70 K/ L 1.48-4.50 hwkp=589) MONOCYTES ABSOLUTE COUNT (BEAKER) (test 0.50 K/ L 0.00-1.30 rpia=940) EOSINOPHILS ABSOLUTE COUNT (BEAKER) (test 0.20 K/ L 0.00-0.50 wgid=677) BASOPHILS ABSOLUTE COUNT (BEAKER) (test 0.00 K/ L 0.00-0.20 zxxz=138) POCT-GLUCOSE [id number] 05:38:00 Test Item Value Reference Range Comments POC-GLUCOSE METER (BEAKER) 102 mg/dL 70-110 TESTED AT [address] (test bhow=0618) [facility] [address] POCT-GLUCOSE [id number] 03:29:00 Test Item Value Reference Range Comments POC-GLUCOSE METER (BEAKER) 163 mg/dL 70-110 TESTED AT [address] (test hrnf=0166) [facility] [address] POCT-GLUCOSE [id number] 03:29:00 Test Item Value Reference Range Comments POC-GLUCOSE METER (BEAKER) 155 mg/dL 70-110 TESTED AT [address] (test iynw=6737) [facility] [address] BASIC METABOLIC [id number] 01:42:00 Test Item Value Reference Range Comments SODIUM (BEAKER) (test 136 meq/L 135-148 sjtu=621) POTASSIUM (BEAKER) (test 3.7 meq/L 3.5-5.5 xgnd=220) CHLORIDE (BEAKER) (test 109 meq/L 98-106 pnjp=929) CO2 (BEAKER) (test 17 meq/L 20-31 mpqo=330) BLOOD UREA NITROGEN 3 mg/dL - (BEAKER) (test msbe=780) CREATININE (BEAKER) (test 0.79 mg/dL 0.50-1.20 wtar=716) GLUCOSE RANDOM (BEAKER) 153 mg/dL 70-110 (test plba=169) CALCIUM (BEAKER) (test 8.2 mg/dL 8.5-10.5 okap=838) EGFR (BEAKER) (test 94 mL/min/1.73 sq m ESTIMATED GFR IS NOT tsow=6446) ACCURATE CREATININE CLEARANCE IN PREDICTING GLOMERULAR FILTRATION RATE. ESTIMATED GFR IS NOT APPLICABLE FOR DIALYSIS PATIENTS. [id number] 01:39:00 Test Item Value Reference Range Comments PHOSPHORUS (BEAKER) (test eogx=340) 2.1 mg/dL 2.5-4.5 [id number] 01:39:00 Test Item Value Reference Range Comments MAGNESIUM (BEAKER) (test fwqo=650) 2.0 mg/dL 1.5-3.0 POCT-GLUCOSE [id number] 01:19:00 Test Item Value Reference Range Comments POC-GLUCOSE METER (BEAKER) 152 mg/dL 70-110 TESTED AT [facility] [address] [facility] (test cpzu=9249) [facility] [address] POCT-GLUCOSE [id number] 01:07:00 Test Item Value Reference Range Comments POC-GLUCOSE METER (BEAKER) 145 mg/dL 70-110 TESTED AT [facility] [address] [facility] (test buyb=9182) [facility] [address] POCT-GLUCOSE [id number] 01:07:00 Test Item Value Reference Range Comments POC-GLUCOSE METER (BEAKER) 165 mg/dL 70-110 TESTED AT [facility] [address] [facility] (test fafy=2500) [facility] [address] POCT-GLUCOSE [id number] 01:07:00 Test Item Value Reference Range Comments POC-GLUCOSE METER (BEAKER) 163 mg/dL 70-110 TESTED AT [facility] [address] [facility] (test regp=7614) [facility] [address] BASIC METABOLIC [id number] 20:59:00 Test Item Value Reference Range Comments SODIUM (BEAKER) (test 137 meq/L 135-148 hmqc=203) POTASSIUM (BEAKER) (test 3.9 meq/L 3.5-5.5 Specimen slightly kgjd=449) hemolyzed CHLORIDE (BEAKER) (test 111 meq/L 98-106 gaem=640) CO2 (BEAKER) (test 13 meq/L 20-31 asyh=619) BLOOD UREA NITROGEN 4 mg/dL 10-26 (BEAKER) (test xzdh=722) CREATININE (BEAKER) (test 0.83 mg/dL 0.50-1.20 Specimen slightly lwgg=353) hemolyzed GLUCOSE RANDOM (BEAKER) 160 mg/dL 70-110 (test empt=778) CALCIUM (BEAKER) (test 8.5 mg/dL 8.5-10.5 poyg=593) EGFR (BEAKER) (test 89 mL/min/1.73 sq m ESTIMATED GFR IS NOT oqls=8059) ACCURATE CREATININE CLEARANCE IN PREDICTING GLOMERULAR FILTRATION RATE. ESTIMATED GFR IS NOT APPLICABLE FOR DIALYSIS PATIENTS. [id number] 20:58:00 Test Item Value Reference Range Comments MAGNESIUM (BEAKER) (test 1.8 mg/dL 1.5-3.0 Specimen slightly hemolyzed tmke=766) [id number] 20:58:00 Test Item Value Reference Range Comments PHOSPHORUS (BEAKER) (test 2.2 mg/dL 2.5-4.5 Specimen slightly hemolyzed xqez=936) POCT-GLUCOSE [id number] 18:02:00 Test Item Value Reference Range Comments POC-GLUCOSE METER (BEAKER) 176 mg/dL 70-110 TESTED AT [address] (test laec=9656) [facility] [address] [id number] 16:46:00 Test Item Value Reference Range Comments MAGNESIUM (BEAKER) (test 2.1 mg/dL 1.5-3.0 Specimen slightly hemolyzed qbjc=961) [id number] 16:46:00 Test Item Value Reference Range Comments PHOSPHORUS (BEAKER) (test 2.1 mg/dL 2.5-4.5 Specimen slightly hemolyzed ztqh=256) BASIC METABOLIC [id number] 16:46:00 Test Item Value Reference Range Comments SODIUM (BEAKER) (test 134 meq/L 135-148 vbkb=657) POTASSIUM (BEAKER) (test 4.4 meq/L 3.5-5.5 Specimen slightly zyvk=182) hemolyzed CHLORIDE (BEAKER) (test 109 meq/L 98-106 hgyy=475) CO2 (BEAKER) (test 13 meq/L 20-31 pxji=826) BLOOD UREA NITROGEN 5 mg/dL - (BEAKER) (test mttl=957) CREATININE (BEAKER) (test 0.79 mg/dL 0.50-1.20 Specimen slightly opqd=276) hemolyzed GLUCOSE RANDOM (BEAKER) 177 mg/dL 70-110 (test ymht=841) CALCIUM (BEAKER) (test 7.8 mg/dL 8.5-10.5 exvg=236) EGFR (BEAKER) (test 94 mL/min/1.73 sq m ESTIMATED GFR IS NOT mhij=9590) ACCURATE CREATININE CLEARANCE IN PREDICTING GLOMERULAR FILTRATION RATE. ESTIMATED GFR IS NOT APPLICABLE FOR DIALYSIS PATIENTS. CALCIUM, [id number] 16:21:00 Test Item Value Reference Range Comments CALCIUM IONIZED (BEAKER) (test ufmb=048) 1.13 mmol/L 1.12-1.27 PH, BLOOD (BEAKER) (test ukpj=0739) 7.30 Check serum Ionized Calcium level after 4 hours after IV Calcium replacement.POCT-GLUCOSE [id number] 16:12:00 Test Item Value Reference Range Comments POC-GLUCOSE METER (BEAKER) 191 mg/dL 70-110 TESTED AT [facility] [address] [facility] (test ukib=0467) WAY [facility] [address] POCT-GLUCOSE [id number] 15:20:00 Test Item Value Reference Range Comments POC-GLUCOSE METER (BEAKER) 181 mg/dL 70-110 TESTED AT [facility] [address] [facility] (test fqok=6848) WAY [facility] [address] POCT-GLUCOSE [id number] 14:15:00 Test Item Value Reference Range Comments POC-GLUCOSE METER (BEAKER) 169 mg/dL 70-110 TESTED AT [facility] [address] [facility] (test tnqf=1121) WAY [facility] [address] BASIC METABOLIC [id number] 13:44:00 Test Item Value Reference Range Comments SODIUM (BEAKER) (test 137 meq/L 135-148 liqh=047) POTASSIUM (BEAKER) (test 3.8 meq/L 3.5-5.5 sids=252) CHLORIDE (BEAKER) (test 112 meq/L 98-106 iold=135) CO2 (BEAKER) (test 13 meq/L 20- jote=150) BLOOD UREA NITROGEN 7 mg/dL - (BEAKER) (test nwjx=935) CREATININE (BEAKER) (test 0.78 mg/dL 0.50-1.20 fkcp=000) GLUCOSE RANDOM (BEAKER) 141 mg/dL 70-110 (test onrz=758) CALCIUM (BEAKER) (test 7.7 mg/dL 8.5-10.5 lvai=386) EGFR (BEAKER) (test 95 mL/min/1.73 sq m ESTIMATED GFR IS NOT zvob=7910) ACCURATE CREATININE CLEARANCE IN PREDICTING GLOMERULAR FILTRATION RATE. ESTIMATED GFR IS NOT APPLICABLE FOR DIALYSIS PATIENTS. POCT-GLUCOSE [id number] 13:24:00 Test Item Value Reference Range Comments POC-GLUCOSE METER (BEAKER) 157 mg/dL 70-110 TESTED AT [facility] [id number] [place] [address] (test jtrt=6496) [facility] [address] POCT-GLUCOSE [id number] 12:34:00 Test Item Value Reference Range Comments POC-GLUCOSE METER (BEAKER) 131 mg/dL 70-110 TESTED AT [facility] [id number] [place] [address] (test lbts=8504) [facility] [address] POCT-GLUCOSE [id number] 11:39:00 Test Item Value Reference Range Comments POC-GLUCOSE METER (BEAKER) 160 mg/dL 70-110 TESTED AT [facility] [id number] [place] [address] (test ibhv=0290) [facility] [address] [id number] 11:13:00 Test Item Value Reference Range Comments PROCALCITONIN (BEAKER) (test urko=6917) < ng/mL <0.05 SEPSIS RISK (ng/mL)Low: 0.05-0.50Intermediate: 0.51-2.00High: & gt;=2.01POCT-GLUCOSE [id number] 10:40:00 Test Item Value Reference Range Comments POC-GLUCOSE METER (BEAKER) 202 mg/dL 70-110 TESTED AT [facility] [id number] [place] [address] (test stte=5011) [facility] [address] [id number] 10:04:00 Test Item Value Reference Range Comments PHOSPHORUS (BEAKER) (test 1.4 mg/dL 2.5-4.5 Specimen slightly hemolyzed cfbp=827) BASIC METABOLIC [id number] 10:04:00 Test Item Value Reference Range Comments SODIUM (BEAKER) (test 138 meq/L 135-148 gioh=405) POTASSIUM (BEAKER) (test 4.0 meq/L 3.5-5.5 Specimen slightly zsot=189) hemolyzed CHLORIDE (BEAKER) (test 113 meq/L 98-106 xkjj=706) CO2 (BEAKER) (test 11 meq/L 20-31 ducc=346) BLOOD UREA NITROGEN 9 mg/dL 10-26 (BEAKER) (test dmfx=854) CREATININE (BEAKER) (test 0.88 mg/dL 0.50-1.20 Specimen slightly jzzw=094) hemolyzed GLUCOSE RANDOM (BEAKER) 224 mg/dL 70-110 (test zbiv=285) CALCIUM (BEAKER) (test 7.9 mg/dL 8.5-10.5 bozc=583) EGFR (BEAKER) (test 83 mL/min/1.73 sq m ESTIMATED GFR IS NOT bulu=8105) ACCURATE CREATININE CLEARANCE IN PREDICTING GLOMERULAR FILTRATION RATE. ESTIMATED GFR IS NOT APPLICABLE FOR DIALYSIS PATIENTS. [id number] 10:02:00 Test Item Value Reference Range Comments MAGNESIUM (BEAKER) (test 1.8 mg/dL 1.5-3.0 Specimen slightly hemolyzed evac=198) POCT-GLUCOSE [id number] 09:36:00 Test Item Value Reference Range Comments POC-GLUCOSE METER (BEAKER) 212 mg/dL 70-110 TESTED AT [facility] [address] [facility] (test nhmh=8840) [facility] [address] POCT-GLUCOSE [id number] 08:43:00 Test Item Value Reference Range Comments POC-GLUCOSE METER (BEAKER) 268 mg/dL 70-110 TESTED AT [facility] [address] [facility] (test fscy=4206) [facility] [address] [id number] 07:47:00 Test Item Value Reference Range Comments POTASSIUM (BEAKER) (test isqq=474) 4.0 meq/L 3.5-5.5 If last glucose was less than 500, may do bedside glucose instead of serum glucose.[id number] 07:47:00 Test Item Value Reference Range Comments GLUCOSE RANDOM (BEAKER) (test kfri=311) 370 mg/dL 70-110 If last glucose was less than 500, may do bedside glucose instead of serum glucose.POCT-GLUCOSE [id number] 07:31:00 Test Item Value Reference Range Comments POC-GLUCOSE METER (BEAKER) 328 mg/dL 70-110 Notified VI DAIVS/TESTED AT [facility] (test ktay=2636) [address] [facility] [address] [facility] [address] POCT-GLUCOSE [id number] 07:31:00 Test Item Value Reference Range Comments POC-GLUCOSE METER (BEAKER) 414 mg/dL 70-110 TESTED AT [facility] [address] [facility] (test xfwf=1338) WAY [facility] [address] [id number] 06:57:00 Test Item Value Reference Range Comments POTASSIUM (BEAKER) (test ktvz=131) 4.5 meq/L 3.5-5.5 [id number] 06:51:00 Test Item Value Reference Range Comments GLUCOSE RANDOM (BEAKER) (test llnt=505) 523 mg/dL 70-110 If last glucose was less than 500, may do bedside glucose instead of serum glucose.URINALYSIS W/ REFLEX URINE [id number] 06:29:00 Test Item Value Reference Range Comments COLOR (BEAKER) (test sdrj=714) Colorless CLARITY (BEAKER) (test prqz=278) Hazy SPECIFIC GRAVITY UA (BEAKER) (test nwvm=270) 1.022 1.001-1.035 PH UA (BEAKER) (test bqhb=448) 5.0 5.0-8.0 PROTEIN UA (BEAKER) (test ahzk=144) Negative Negative GLUCOSE UA (BEAKER) (test yuwo=513) >500 mg/dL Negative KETONES UA (BEAKER) (test ugdp=633) 80 mg/dL Negative BILIRUBIN UA (BEAKER) (test dzru=866) Negative Negative BLOOD UA (BEAKER) (test mjpp=865) Large Negative NITRITE UA (BEAKER) (test ycsh=702) Negative Negative LEUKOCYTE ESTERASE UA (BEAKER) (test cjfv=401) Negative Negative UROBILINOGEN UA (BEAKER) (test hivk=501) < mg/dL 0.2-1.0 RBC UA (BEAKER) (test ickd=297) 170 /HPF WBC UA (BEAKER) (test ydeh=639) 27 /HPF MUCUS (BEAKER) (test qndo=9954) Rare SOURCE(BEAKER) (test ygko=9567) RAPID INFLUENZA A&B [id number] 06:13:00 Test Item Value Reference Range Comments RAPID INFLUENZA A AG (BEAKER) (test hgbs=2166) Negative Negative RAPID INFLUENZA B AG (BEAKER) (test rcjb=3110) Negative Negative SCREEN, [id number] 05:58:00 Test Item Value Reference Range Comments TEST URINE (BEAKER) (test mfoc=930) Negative RAD, CHEST, 1 VIEW, NON [id number] 05:52:00Reason for exam:-> EMESISReason for exam:->BLOOD SUGAR PROBLEMShould this be performed at the bedside?->YesIs the patient ?->NoFINAL REPORT Comparison examination: 04/07/2017 No pneumothorax, focal pulmonary consolidation, or significant pleural effusion. Normal cardiomediastinal contours. Normal skeleton and soft tissues. Impression: No acute abnormality. Signed: Joesph Foy Verified Date/Time: 05/18/2017 05:52 :18 Reading Location: [address] Reading Room HEMOGLOBIN [id number] 05:49:00 Test Item Value Reference Range Comments HEMOGLOBIN A1C (BEAKER) (test hpsr=038) 13.2 % 4.3-6.1 BASIC METABOLIC [id number] 05:28:00 Test Item Value Reference Range Comments SODIUM (BEAKER) (test 132 meq/L 135-148 suva=071) POTASSIUM (BEAKER) (test 4.4 meq/L 3.5-5.5 mutb=579) CHLORIDE (BEAKER) (test 101 meq/L 98-106 vcag=905) CO2 (BEAKER) (test 8 meq/L 20-31 mcvp=836) BLOOD UREA NITROGEN 12 mg/dL 10- (BEAKER) (test hhhd=606) CREATININE (BEAKER) (test 1.29 mg/dL 0.50-1.20 ltzo=080) GLUCOSE RANDOM (BEAKER) 622 mg/dL 70-110 (test ejex=921) CALCIUM (BEAKER) (test 8.7 mg/dL 8.5-10.5 mtiv=585) EGFR (BEAKER) (test 53 mL/min/1.73 sq m ESTIMATED GFR IS NOT tpqm=6333) ACCURATE CREATININE CLEARANCE IN PREDICTING GLOMERULAR FILTRATION RATE. ESTIMATED GFR IS NOT APPLICABLE FOR DIALYSIS PATIENTS. If last glucose was less than 500, may do bedside glucose instead of serum glucose.HEPATIC FUNCTION [id number] 05:27:00 Test Item Value Reference Range Comments TOTAL PROTEIN (BEAKER) (test mtqx=260) 7.9 gm/dL 6.0-8.5 ALBUMIN (BEAKER) (test pusk=8301) 4.1 g/dL 3.5-5.0 BILIRUBIN TOTAL (BEAKER) (test pgvr=110) 0.4 mg/dL 0.1-1.3 BILIRUBIN DIRECT (BEAKER) (test hrmg=302) 0.2 mg/dL 0.0-0.5 ALKALINE PHOSPHATASE (BEAKER) (test gmay=567) 136 U/L 30-115 AST (SGOT) (BEAKER) (test vlkv=113) 11 U/L 5-40 ALT (SGPT) (BEAKER) (test wafy=572) 10 U/L 6-50 If last glucose was less than 500, may do bedside glucose instead of serum glucose.Specimen slightlylipemicBLOOD GAS, [id number] 05:04:00 Test Item Value Reference Range Comments PH VENOUS (BEAKER) (test tsto=619) 7.17 7.32-7.42 PCO2 VENOUS (BEAKER) (test mkek=060) 30 mmHg 41-51 PO2 VENOUS (BEAKER) (test kevi=490) 35 mmHg 25-40 O2 SATURATION VENOUS (BEAKER) (test jmxz=901) 53.6 % 40.0-70.0 HCO3 VENOUS (BEAKER) (test ytce=549) 11 mmol/L 21-29 BASE EXCESS VENOUS (BEAKER) (test jkyw=424) -16.5 mmol/L -2.0-3.0 PATIENT TEMPERATURE (BEAKER) (test wqap=0202) 36.9 C FIO2 (BEAKER) (test qnif=9001) 21.0 % KETONE, [id number] 05:03:00 Test Item Value Reference Range Comments KETONES, BLOOD (BEAKER) (test goyh=2654) 5.8 mmol/L <0.4 CBC W/PLT COUNT & AUTO [id number] 05:02:00 Test Item Value Reference Range Comments WHITE BLOOD CELL COUNT (BEAKER) (test ofbg=054) 15.3 K/ L 4.0-10.0 RED BLOOD CELL COUNT (BEAKER) (test nrhm=420) 4.71 M/ L 4.00-5.00 HEMOGLOBIN (BEAKER) (test hqks=191) 13.5 GM/DL 12.0-15.0 HEMATOCRIT (BEAKER) (test plws=245) 40.9 % 36.0-45.0 MEAN CORPUSCULAR VOLUME (BEAKER) (test iknb=146) 86.8 fL 82.0-99.0 MEAN CORPUSCULAR HEMOGLOBIN (BEAKER) (test 28.7 pg 27.0-33.0 dmvi=612) MEAN CORPUSCULAR HEMOGLOBIN CONC (BEAKER) (test 33.1 GM/DL 32.0-36.0 dwnl=134) RED CELL DISTRIBUTION WIDTH (BEAKER) (test 12.3 % 12.0-15.0 cwny=142) PLATELET COUNT (BEAKER) (test usot=955) 382 K/CU MM 150-430 MEAN PLATELET VOLUME (BEAKER) (test xvld=194) 7.7 fL 6.5-10.5 NUCLEATED RED BLOOD CELLS (BEAKER) (test 0 /100 WBC 0-0 kjvi=368) NEUTROPHILS RELATIVE PERCENT (BEAKER) (test 73 % iizd=323) LYMPHOCYTES RELATIVE PERCENT (BEAKER) (test 21 % bxef=064) MONOCYTES RELATIVE PERCENT (BEAKER) (test 5 % dqnt=111) EOSINOPHILS RELATIVE PERCENT (BEAKER) (test 1 % qtco=259) BASOPHILS RELATIVE PERCENT (BEAKER) (test 0 % rbal=653) NEUTROPHILS ABSOLUTE COUNT (BEAKER) (test 11.20 K/ L 1.80-8.00 vzxv=269) LYMPHOCYTES ABSOLUTE COUNT (BEAKER) (test 3.30 K/ L 1.48-4.50 obxi=581) MONOCYTES ABSOLUTE COUNT (BEAKER) (test 0.70 K/ L 0.00-1.30 ztcu=374) EOSINOPHILS ABSOLUTE COUNT (BEAKER) (test 0.10 K/ L 0.00-0.50 pdde=724) BASOPHILS ABSOLUTE COUNT (BEAKER) (test 0.00 K/ L 0.00-0.20 vbag=217) POCT-GLUCOSE [id number] 04:49:00 Test Item Value Reference Range Comments POC-GLUCOSE METER (BEAKER) > mg/dL 70-110 OUTSIDE MEASURING RANGETESTED AT (test plky=3304) [facility] [address] [facility] [address] BLOOD [id number] 00:00:00 Test Item Value Reference Range Comments CULTURE (BEAKER) (test vnpb=6674) No growth in 5 days BLOOD [id number] 00:00:00 Test Item Value Reference Range Comments CULTURE (BEAKER) (test tzcm=5809) No growth in 5 days URINE [id number] 15:21:00 Test Item Value Reference Range Comments CULTURE (BEAKER) (test veti=7687) >100,000 col/mL skin christophe POCT-GLUCOSE [id number] 14:37:00 Test Item Value Reference Range Comments POC-GLUCOSE METER (BEAKER) 326 mg/dL 70-110 TESTED AT [address] (test myke=9464) [facility] [address] POCT-GLUCOSE [id number] 13:26:00 Test Item Value Reference Range Comments POC-GLUCOSE METER (BEAKER) 331 mg/dL 70-110 TESTED AT [address] (test efhi=3903) [facility] [address] CBC W/PLT COUNT & AUTO [id number] 11:34:00 Test Item Value Reference Range Comments WHITE BLOOD CELL COUNT (BEAKER) (test jrmx=134) 5.9 K/ L 3.5-10.5 RED BLOOD CELL COUNT (BEAKER) (test zdxi=109) 4.15 M/ L 3.93-5.22 HEMOGLOBIN (BEAKER) (test gzmt=568) 11.7 GM/DL 11.2-15.7 HEMATOCRIT (BEAKER) (test intt=016) 34.9 % 34.1-44.9 MEAN CORPUSCULAR VOLUME (BEAKER) (test gpws=047) 84.1 fL 79.4-94.8 MEAN CORPUSCULAR HEMOGLOBIN (BEAKER) (test 28.2 pg 25.6-32.2 tqam=673) MEAN CORPUSCULAR HEMOGLOBIN CONC (BEAKER) (test 33.5 GM/DL 32.2-35.5 tuhw=080) RED CELL DISTRIBUTION WIDTH (BEAKER) (test 12.8 % 11.7-14.4 srvj=161) PLATELET COUNT (BEAKER) (test askq=273) 272 K/CU MM 150-450 MEAN PLATELET VOLUME (BEAKER) (test xsxj=368) 9.5 fL 9.4-12.3 NUCLEATED RED BLOOD CELLS (BEAKER) (test 0 /100 WBC 0-0 xktw=916) NEUTROPHILS RELATIVE PERCENT (BEAKER) (test 44 % mdda=331) LYMPHOCYTES RELATIVE PERCENT (BEAKER) (test 47 % hhve=970) MONOCYTES RELATIVE PERCENT (BEAKER) (test 6 % jenq=409) EOSINOPHILS RELATIVE PERCENT (BEAKER) (test 2 % lkti=516) BASOPHILS RELATIVE PERCENT (BEAKER) (test 1 % evby=330) NEUTROPHILS ABSOLUTE COUNT (BEAKER) (test 2.61 K/ L 1.56-6.13 vcvf=433) LYMPHOCYTES ABSOLUTE COUNT (BEAKER) (test 2.79 K/ L 1.18-3.74 uwrd=652) MONOCYTES ABSOLUTE COUNT (BEAKER) (test 0.33 K/ L 0.24-0.36 qarj=970) EOSINOPHILS ABSOLUTE COUNT (BEAKER) (test 0.10 K/ L 0.04-0.36 rygm=468) BASOPHILS ABSOLUTE COUNT (BEAKER) (test 0.04 K/ L 0.01-0.08 fdfg=191) IMMATURE GRANULOCYTES-RELATIVE PERCENT (BEAKER) 0 % 0-1 (test dgku=3349) (MANUAL DIFFERENTIAL)2017-04-09 11:34:00 Test Item Value Reference Range Comments TOTAL COUNTED (BEAKER) (test qljr=9860) POCT-GLUCOSE [id number] 11:18:00 Test Item Value Reference Range Comments POC-GLUCOSE METER (BEAKER) 349 mg/dL 70-[address] [facility] [address] [facility] (test iwjb=3179) [facility] [address] POCT-GLUCOSE [id number] 09:34:00 Test Item Value Reference Range Comments POC-GLUCOSE METER (BEAKER) 61 mg/dL 70-110 TESTED AT [address] (test jdje=0841) [facility] [address] POCT-GLUCOSE [id number] 08:48:00 Test Item Value Reference Range Comments POC-GLUCOSE METER (BEAKER) 79 mg/dL 70-110 TESTED AT [address] (test zehx=5377) [place] [address] BASIC METABOLIC [id number] 06:12:00 Test Item Value Reference Range Comments SODIUM (BEAKER) (test 135 meq/L 136-145 upbe=439) POTASSIUM (BEAKER) (test 4.7 meq/L 3.5-5.1 kkhm=358) CHLORIDE (BEAKER) (test 105 meq/L 98-107 cznq=506) CO2 (BEAKER) (test 22 meq/L 22-29 amav=838) BLOOD UREA NITROGEN 11 mg/dL 7-21 (BEAKER) (test kmya=496) CREATININE (BEAKER) (test 0.83 mg/dL 0.57-1.25 vbyj=319) GLUCOSE RANDOM (BEAKER) 387 mg/dL 70-105 (test hnhy=535) CALCIUM (BEAKER) (test 8.7 mg/dL 8.4-10.2 ijgq=479) EGFR (BEAKER) (test 89 mL/min/1.73 sq m ESTIMATED GFR IS NOT dznw=1059) ACCURATE CREATININE CLEARANCE IN PREDICTING GLOMERULAR FILTRATION RATE. ESTIMATED GFR IS NOT APPLICABLE FOR DIALYSIS PATIENTS. KETONE, [id number] 05:43:00 Test Item Value Reference Range Comments KETONES, BLOOD (BEAKER) (test ycor=0846) 0.1 mmol/L <0.4 POCT-GLUCOSE [id number] 05:39:00 Test Item Value Reference Range Comments POC-GLUCOSE METER (BEAKER) 366 mg/dL 70-110 TESTED AT [address] (test sfpe=3249) [place] [id number] POCT-GLUCOSE [id number] 22:32:00 Test Item Value Reference Range Comments POC-GLUCOSE METER (BEAKER) 302 mg/dL 70-110 TESTED AT [address] (test ulji=6798) [place] [address] POCT-GLUCOSE [id number] 19:15:00 Test Item Value Reference Range Comments POC-GLUCOSE METER (BEAKER) 273 mg/dL 70-110 TESTED AT [address] (test fyli=9228) [facility] [address] POCT-GLUCOSE [id number] 17:49:00 Test Item Value Reference Range Comments POC-GLUCOSE METER (BEAKER) 174 mg/dL 70-110 TESTED AT [address] (test vaxd=7969) [facility] [address] POCT-GLUCOSE [id number] 17:02:00 Test Item Value Reference Range Comments POC-GLUCOSE METER (BEAKER) 171 mg/dL 70-110 TESTED AT [address] (test ovug=1860) [facility] [address] POCT-GLUCOSE [id number] 15:17:00 Test Item Value Reference Range Comments POC-GLUCOSE METER (BEAKER) 135 mg/dL 70-110 TESTED AT [address] (test eifb=2125) [place] [id number] POCT-GLUCOSE [id number] 13:10:00 Test Item Value Reference Range Comments POC-GLUCOSE METER (BEAKER) 61 mg/dL 70-110 TESTED AT [address] (test pbfl=0434) [facility] [address] POCT-GLUCOSE [id number] 11:21:00 Test Item Value Reference Range Comments POC-GLUCOSE METER (BEAKER) 57 mg/dL 70-110 Notified VI DAVIS/TESTED AT [facility] (test npvb=2202) [address] [place] [address] POCT-GLUCOSE [id number] 08:02:00 Test Item Value Reference Range Comments POC-GLUCOSE METER (BEAKER) 68 mg/dL 70-110 Notified VI DAVIS/TESTED AT [facility] (test wwpu=1932) [address] [place] [address] CBC W/PLT COUNT & AUTO [id number] 08:02:00 Test Item Value Reference Range Comments WHITE BLOOD CELL COUNT (BEAKER) (test vhpr=545) 6.6 K/ L 3.5-10.5 RED BLOOD CELL COUNT (BEAKER) (test nxqf=748) 3.97 M/ L 3.93-5.22 HEMOGLOBIN (BEAKER) (test pxug=436) 11.2 GM/DL 11.2-15.7 HEMATOCRIT (BEAKER) (test srsl=822) 33.2 % 34.1-44.9 MEAN CORPUSCULAR VOLUME (BEAKER) (test tmjm=301) 83.6 fL 79.4-94.8 MEAN CORPUSCULAR HEMOGLOBIN (BEAKER) (test 28.2 pg 25.6-32.2 qtta=786) MEAN CORPUSCULAR HEMOGLOBIN CONC (BEAKER) (test 33.7 GM/DL 32.2-35.5 kvga=139) RED CELL DISTRIBUTION WIDTH (BEAKER) (test 12.7 % 11.7-14.4 mjwc=593) PLATELET COUNT (BEAKER) (test lpdv=464) 231 K/CU MM 150-450 MEAN PLATELET VOLUME (BEAKER) (test onmc=437) 9.5 fL 9.4-12.3 NUCLEATED RED BLOOD CELLS (BEAKER) (test 0 /100 WBC 0-0 hoqs=492) NEUTROPHILS RELATIVE PERCENT (BEAKER) (test 33 % koat=612) LYMPHOCYTES RELATIVE PERCENT (BEAKER) (test 58 % scxs=853) MONOCYTES RELATIVE PERCENT (BEAKER) (test 6 % huof=389) EOSINOPHILS RELATIVE PERCENT (BEAKER) (test 2 % qrif=338) BASOPHILS RELATIVE PERCENT (BEAKER) (test 1 % zwia=008) NEUTROPHILS ABSOLUTE COUNT (BEAKER) (test 2.20 K/ L 1.56-6.13 rlen=554) LYMPHOCYTES ABSOLUTE COUNT (BEAKER) (test 3.84 K/ L 1.18-3.74 yshl=904) MONOCYTES ABSOLUTE COUNT (BEAKER) (test 0.37 K/ L 0.24-0.36 bcac=158) EOSINOPHILS ABSOLUTE COUNT (BEAKER) (test 0.13 K/ L 0.04-0.36 pitt=764) BASOPHILS ABSOLUTE COUNT (BEAKER) (test 0.04 K/ L 0.01-0.08 ypjs=900) IMMATURE GRANULOCYTES-RELATIVE PERCENT (BEAKER) 0 % 0-1 (test dxrg=8077) POCT-GLUCOSE [id number] 06:58:00 Test Item Value Reference Range Comments POC-GLUCOSE METER (BEAKER) 95 mg/dL 70-[address] [facility] [address] [facility] (test vdmv=7610) [facility] [address] POCT-GLUCOSE [id number] 06:17:00 Test Item Value Reference Range Comments POC-GLUCOSE METER (BEAKER) 150 mg/dL 70-110 TESTED AT [address] (test dhcr=0248) [place] [id number] POCT-GLUCOSE [id number] 05:18:00 Test Item Value Reference Range Comments POC-GLUCOSE METER (BEAKER) 101 mg/dL 70-110 TESTED AT [address] (test kxgz=6577) [place] [address] POCT-GLUCOSE [id number] 05:07:00 Test Item Value Reference Range Comments POC-GLUCOSE METER (BEAKER) 119 mg/dL 70-110 TESTED AT [address] (test wqhh=8480) [place] [id number] BASIC METABOLIC [id number] 04:52:00 Test Item Value Reference Range Comments SODIUM (BEAKER) (test 140 meq/L 136-145 pglh=485) POTASSIUM (BEAKER) (test 3.8 meq/L 3.5-5.1 vlkf=656) CHLORIDE (BEAKER) (test 109 meq/L 98-107 ebsv=329) CO2 (BEAKER) (test 21 meq/L 22-29 noxe=439) BLOOD UREA NITROGEN 7 mg/dL 7-21 (BEAKER) (test zxpb=500) CREATININE (BEAKER) (test 0.70 mg/dL 0.57-1.25 yxjo=682) GLUCOSE RANDOM (BEAKER) 208 mg/dL 70-105 (test vwjy=774) CALCIUM (BEAKER) (test 8.4 mg/dL 8.4-10.2 lqyj=238) EGFR (BEAKER) (test 108 mL/min/1.73 sq m ESTIMATED GFR IS NOT trev=3486) ACCURATE CREATININE CLEARANCE IN PREDICTING GLOMERULAR FILTRATION RATE. ESTIMATED GFR IS NOT APPLICABLE FOR DIALYSIS PATIENTS. POCT-GLUCOSE [id number] 04:05:00 Test Item Value Reference Range Comments POC-GLUCOSE METER (BEAKER) 48 mg/dL 70-110 TESTED AT [address] (test urlx=4555) [facility] [address] POCT-GLUCOSE [id number] 02:30:00 Test Item Value Reference Range Comments POC-GLUCOSE METER (BEAKER) 181 mg/dL 70-110 TESTED AT [address] (test xizj=1243) [facility] [address] POCT-GLUCOSE [id number] 02:10:00 Test Item Value Reference Range Comments POC-GLUCOSE METER (BEAKER) 37 mg/dL 70-110 Will Repeat Test/TESTED AT (test oyce=8967) [place] [id number] POCT-GLUCOSE [id number] 01:07:00 Test Item Value Reference Range Comments POC-GLUCOSE METER (BEAKER) 87 mg/dL 70-110 TESTED AT [address] (test fmwo=8118) [place] [id number] BASIC METABOLIC [id number] 00:44:00 Test Item Value Reference Range Comments SODIUM (BEAKER) (test 142 meq/L 136-145 ucms=393) POTASSIUM (BEAKER) (test 3.6 meq/L 3.5-5.1 keck=411) CHLORIDE (BEAKER) (test 112 meq/L 98-107 xgnk=125) CO2 (BEAKER) (test 22 meq/L 22-29 xitv=311) BLOOD UREA NITROGEN 8 mg/dL 7-21 (BEAKER) (test bwhv=565) CREATININE (BEAKER) (test 0.83 mg/dL 0.57-1.25 dzkv=991) GLUCOSE RANDOM (BEAKER) 109 mg/dL 70-105 (test upto=939) CALCIUM (BEAKER) (test 8.6 mg/dL 8.4-10.2 jmnq=646) EGFR (BEAKER) (test 89 mL/min/1.73 sq m ESTIMATED GFR IS NOT purh=4634) ACCURATE CREATININE CLEARANCE IN PREDICTING GLOMERULAR FILTRATION RATE. ESTIMATED GFR IS NOT APPLICABLE FOR DIALYSIS PATIENTS. POCT-GLUCOSE [id number] 00:30:00 Test Item Value Reference Range Comments POC-GLUCOSE METER (BEAKER) 96 mg/dL 70-110 TESTED AT [address] (test rick=9104) [facility] [address] POCT-GLUCOSE [id number] 23:54:00 Test Item Value Reference Range Comments POC-GLUCOSE METER (BEAKER) 91 mg/dL 70-110 TESTED AT [address] (test hebz=9582) [place] [id number] POCT-GLUCOSE [id number] 23:12:00 Test Item Value Reference Range Comments POC-GLUCOSE METER (BEAKER) 48 mg/dL 70-110 TESTED AT [address] (test wcyi=6985) [place] [address] POCT-GLUCOSE [id number] 21:58:00 Test Item Value Reference Range Comments POC-GLUCOSE METER (BEAKER) 94 mg/dL 70-110 TESTED AT [address] (test qllp=2566) [place] [address] BASIC METABOLIC [id number] 21:08:00 Test Item Value Reference Range Comments SODIUM (BEAKER) (test 137 meq/L 136-145 hwis=443) POTASSIUM (BEAKER) (test 3.6 meq/L 3.5-5.1 lfov=589) CHLORIDE (BEAKER) (test 109 meq/L 98-107 oaeh=835) CO2 (BEAKER) (test 18 meq/L 22-29 hmup=773) BLOOD UREA NITROGEN 6 mg/dL 7-21 (BEAKER) (test yeyq=136) CREATININE (BEAKER) (test 0.93 mg/dL 0.57-1.25 wyfm=505) GLUCOSE RANDOM (BEAKER) 200 mg/dL 70-105 (test mwyi=608) CALCIUM (BEAKER) (test 7.8 mg/dL 8.4-10.2 kfyv=188) EGFR (BEAKER) (test 78 mL/min/1.73 sq m ESTIMATED GFR IS NOT uqnn=9062) ACCURATE CREATININE CLEARANCE IN PREDICTING GLOMERULAR FILTRATION RATE. ESTIMATED GFR IS NOT APPLICABLE FOR DIALYSIS PATIENTS. POCT-GLUCOSE [id number] 20:57:00 Test Item Value Reference Range Comments POC-GLUCOSE METER (BEAKER) 165 mg/dL 70-110 TESTED AT [address] (test edcc=2403) [place] [address] [id number] 20:55:00 Test Item Value Reference Range Comments POTASSIUM (BEAKER) (test bfej=224) 3.6 meq/L 3.5-5.1 URINALYSIS W/ [id number] 20:40:00 Test Item Value Reference Range Comments COLOR (BEAKER) (test cpkr=203) Light Yellow CLARITY (BEAKER) (test nvwd=992) Clear SPECIFIC GRAVITY UA (BEAKER) (test avuo=273) 1.009 1.001-1.035 PH UA (BEAKER) (test fhbm=421) 5.5 5.0-8.0 PROTEIN UA (BEAKER) (test ozyv=258) Negative Negative GLUCOSE UA (BEAKER) (test dydl=088) >1000 mg/dL Negative KETONES UA (BEAKER) (test uiyp=648) 60 mg/dL Negative BILIRUBIN UA (BEAKER) (test glyg=816) Negative Negative BLOOD UA (BEAKER) (test altc=664) Moderate Negative NITRITE UA (BEAKER) (test zpmw=778) Negative Negative LEUKOCYTE ESTERASE UA (BEAKER) (test vinr=045) Negative Negative UROBILINOGEN UA (BEAKER) (test fuac=773) 0.2 mg/dL 0.2-1.0 RBC UA (BEAKER) (test ywmp=592) 0 /HPF WBC UA (BEAKER) (test qqde=496) 1 /HPF SQUAMOUS EPITHELIAL (BEAKER) (test asee=855) 2 /HPF SOURCE(BEAKER) (test wthy=2688) POCT-GLUCOSE [id number] 19:59:00 Test Item Value Reference Range Comments POC-GLUCOSE METER (BEAKER) 282 mg/dL 70-110 TESTED AT [address] (test fqcq=7673) [facility] [address] POCT-GLUCOSE [id number] 19:02:00 Test Item Value Reference Range Comments POC-GLUCOSE METER (BEAKER) 374 mg/dL 70-110 Notified VI DAVIS/TESTED AT [facility] (test sjin=8604) [address] [place] [address] CBC W/PLT COUNT & AUTO [id number] 18:56:00 Test Item Value Reference Range Comments WHITE BLOOD CELL COUNT (BEAKER) (test pdmg=195) 8.3 K/ L 3.5-10.5 RED BLOOD CELL COUNT (BEAKER) (test qhnm=861) 4.18 M/ L 3.93-5.22 HEMOGLOBIN (BEAKER) (test zbft=237) 11.9 GM/DL 11.2-15.7 HEMATOCRIT (BEAKER) (test irqe=735) 35.0 % 34.1-44.9 MEAN CORPUSCULAR VOLUME (BEAKER) (test nhea=816) 83.7 fL 79.4-94.8 MEAN CORPUSCULAR HEMOGLOBIN (BEAKER) (test 28.5 pg 25.6-32.2 tjxg=463) MEAN CORPUSCULAR HEMOGLOBIN CONC (BEAKER) (test 34.0 GM/DL 32.2-35.5 ftlf=543) RED CELL DISTRIBUTION WIDTH (BEAKER) (test 12.7 % 11.7-14.4 irbr=220) PLATELET COUNT (BEAKER) (test fbip=777) 307 K/CU MM 150-450 MEAN PLATELET VOLUME (BEAKER) (test jfqn=067) 9.5 fL 9.4-12.3 NUCLEATED RED BLOOD CELLS (BEAKER) (test 0 /100 WBC 0-0 xbec=483) NEUTROPHILS RELATIVE PERCENT (BEAKER) (test 42 % iais=233) LYMPHOCYTES RELATIVE PERCENT (BEAKER) (test 51 % rsia=303) MONOCYTES RELATIVE PERCENT (BEAKER) (test 5 % sczh=924) EOSINOPHILS RELATIVE PERCENT (BEAKER) (test 1 % aqso=758) BASOPHILS RELATIVE PERCENT (BEAKER) (test 1 % hkwd=825) NEUTROPHILS ABSOLUTE COUNT (BEAKER) (test 3.52 K/ L 1.56-6.13 jbar=809) LYMPHOCYTES ABSOLUTE COUNT (BEAKER) (test 4.24 K/ L 1.18-3.74 wlzs=875) MONOCYTES ABSOLUTE COUNT (BEAKER) (test 0.39 K/ L 0.24-0.36 bwbm=833) EOSINOPHILS ABSOLUTE COUNT (BEAKER) (test 0.09 K/ L 0.04-0.36 vlwc=138) BASOPHILS ABSOLUTE COUNT (BEAKER) (test 0.05 K/ L 0.01-0.08 jaqg=890) IMMATURE GRANULOCYTES-RELATIVE PERCENT (BEAKER) 0 % 0-1 (test dezq=7165) POCT-GLUCOSE [id number] 18:03:00 Test Item Value Reference Range Comments POC-GLUCOSE METER (BEAKER) 294 mg/dL 70-[address] [facility] [address] [facility] (test uzzz=9310) [facility] [address] HEMOGLOBIN [id number] 17:45:00 Test Item Value Reference Range Comments HEMOGLOBIN A1C (BEAKER) (test znse=274) 12.6 % 4.3-6.1 RAD, CHEST, 1 VIEW, NON [id number] 17:20:00Reason for exam:->sobShould this be performed at the bedside?->YesFINAL REPORT AP chest History: Shortness of breath. Comparison: None available. Discussion: The trachea is midline. The lungs are symmetrically expanded without evidence of focal consolidation, pneumothorax, or significant pleural fluid. The cardiomediastinal silhouette and pulmonary vasculature are within normal limits. No acute osseous abnormalities are identified. The surrounding soft tissues are unremarkable. IMPRESSION: No acute cardiopulmonary abnormality. Signed: Salomon Shelton MDReport Verified Date/Time: 04/07/2017 17:20:50 Reading Location: [address] Radiology Reading Room TSH/FREE T4 IF [id number] 17: 04:00 Test Item Value Reference Range Comments THYROID STIMULATING HORMONE (BEAKER) (test 0.95 uIU/mL 0.35-4.94 uljq=306) TROPONIN [id number] 16:51:00 Test Item Value Reference Range Comments TROPONIN I (BEAKER) (test saof=374) < ng/mL 0.00-0.03 Effective 06/20/2014: Reference Range ChangeNew: 0.00-0.03 Previous 0.00- 0.15Troponin I (TnI) levels must be interpreted in the context of the presenting symptoms and the clinical findings. Elevated TnI levels indicate myocardial damage, but are not specific for ischemic heart disease. Elevated TnI levels are seen in patients with other cardiac conditions (including myocarditis and congestive heartfailure), and slight TnI elevations occur in patients with other conditions, including sepsis, renalfailure, acidosis, acute neurological disease, and persistent tachyarrhythmia.[id number] 16:45:00 Test Item Value Reference Range Comments LIPASE (BEAKER) (test jwot=889) 33 U/L 8-78 [id number] 16:45:00 Test Item Value Reference Range Comments AMYLASE (BEAKER) (test vtmf=545) 66 U/L 25-125 BASIC METABOLIC [id number] 16:45:00 Test Item Value Reference Range Comments SODIUM (BEAKER) (test 139 meq/L 136-145 pccw=737) POTASSIUM (BEAKER) (test 3.8 meq/L 3.5-5.1 tklf=198) CHLORIDE (BEAKER) (test 109 meq/L 98-107 rwmg=191) CO2 (BEAKER) (test 23 meq/L 22-29 ehze=640) BLOOD UREA NITROGEN 8 mg/dL 7-21 (BEAKER) (test weeg=809) CREATININE (BEAKER) (test 0.72 mg/dL 0.57-1.25 lavg=364) GLUCOSE RANDOM (BEAKER) 125 mg/dL 70-105 (test ghcw=299) CALCIUM (BEAKER) (test 8.4 mg/dL 8.4-10.2 zsnx=323) EGFR (BEAKER) (test 104 mL/min/1.73 sq m ESTIMATED GFR IS NOT iugq=9704) ACCURATE CREATININE CLEARANCE IN PREDICTING GLOMERULAR FILTRATION RATE. ESTIMATED GFR IS NOT APPLICABLE FOR DIALYSIS PATIENTS. LACTIC ACID, VENOUS, WHOLE [id number] 16:45:00 Test Item Value Reference Range Comments LACTATE BLOOD VENOUS (2) (BEAKER) (test 1.1 mmol/L 0.5-2.2 fphs=6749) Effective 12/05/2015: Units/Reference Range ChangeNew: 0.5-2.2 mmol/L Previous: 5 -20 mg/dLKETONE, [id number] 16:41:00 Test Item Value Reference Range Comments KETONES, BLOOD (BEAKER) (test hrdb=0547) 2.1 mmol/L <0.4 BLOOD GAS, [id number] 16:27:00 Test Item Value Reference Range Comments PH VENOUS (BEAKER) (test ntpr=004) 7.36 7.32-7.42 PCO2 VENOUS (BEAKER) (test filg=705) 41 mmHg 41-51 PO2 VENOUS (BEAKER) (test srny=456) 18 mmHg 25-40 O2 SATURATION VENOUS (BEAKER) (test vdil=308) 26.4 % 40.0-70.0 HCO3 VENOUS (BEAKER) (test yblf=131) 23 mmol/L 21-29 BASE EXCESS VENOUS (BEAKER) (test rqut=976) -2.5 mmol/L -2.0-3.0 PATIENT TEMPERATURE (BEAKER) (test uxkz=9052) 37.0 C POCT-GLUCOSE [id number] 16:20:00 Test Item Value Reference Range Comments POC-GLUCOSE METER (BEAKER) 156 mg/dL 70-110 TESTED AT [address] (test pjvj=2852) [place] [address] POCT-GLUCOSE [id number] 15:28:00 Test Item Value Reference Range Comments POC-GLUCOSE METER (BEAKER) 101 mg/dL 70-110 TESTED AT [address] (test iwsu=1407) [place] [address]
[2018-02-09 21:43] LABS: Absolute Lymphocytes (CBC) 2.4 K/uL (0.7-4.9); Absolute Monocytes 0.3 K/uL (0.1-1.3); Absolute Neutrophil 2.5 K/uL (1.8-8.0); Basophils % 0.4 % (0-1.3); Eosinophils % 0.7 % (0-4.4); Hematocrit 40.6 % (36.0-45.0); Lymphocytes % 46.5 % (15.3-44.8); MCH 29.3 pg (27.0-35.0); MCV 87.1 fL (80-100); MPV 8.1 fL (7.6-11.3); Monocytes % 4.9 % (3.3-12.3); RBC Red Blood Cell Count 4.66 M/uL (3.86-4.86)
[2018-02-09 21:55] LABS: Urine Blood NEGATIVE (NEG); Urine Glucose 2+ (NEG); Urine Protein NEGATIVE (NEG)
[2018-02-09] MEDS ORDERED: NA CHLORIDE 0.9% 2,000 ML ONE (21:58)
[2018-02-09 22:01] LABS: BUN Blood Urea Nitrogen 12 mg/dL (7-18); Bicarbonate 23 mmol/L (21-32); Potassium 4.1 mmol/L (3.5-5.1); Sodium Level 130 mmol/L (136-145)
[2018-02-09 22:03] LABS: Glucose Level 622 mg/dL (74-106)
[2018-02-09] MEDS ORDERED: INSULIN -REGULAR HUMAN 50 UNIT/0.5 ML ML ONE ×2 (22:35→23:24)
--- NOTE | 2018-02-10 00:36 | ER ---
Nurse's Notes [facility] Name: Salome Santacruz Age: 17 yrs Sex: Female : 2000 Arrival Date: 02/09/2018 Time: 21:09 Bed 20 Private MD: Diagnosis: Hyperglycemia, unspecified Presentation: 02/09 21:00 Presenting complaint: Patient states: that she thinks she is in DKA, missed a dose of fc her insulin a couple of days ago has been unable to catch up to fix it. Now feels weak and just not "right". Transition of care: patient was not received from another setting of care. Onset of symptoms was February 07, 2018. Risk Assessment: Do you want to hurt yourself or someone else? Patient reports no desire to harm self or others. Initial Sepsis Screen: Does the patient meet any 2 criteria? RR > 20 per min. HR > 90 bpm. Does the patient have a suspected source of infection? Yes: Other: unknown. Care prior to arrival: None. 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 - Social history:: Smoking status: Patient/guardian denies using tobacco, Patient/guardian denies using alcohol, street drugs. - Ebola Screening: : Patient negative for fever greater than or equal to 101.5 degrees Fahrenheit, and additional compatible Ebola Virus Disease symptoms Patient denies exposure to infectious person Patient denies travel to an Ebola-affected area in the 21 days before illness onset. Screenin:14 Abuse screen: Denies threats or abuse. Nutritional screening: No deficits noted. fc Tuberculosis screening: No symptoms or risk factors identified. Fall Risk None identified. Assessment: 21:26 General: Appears in no apparent distress. comfortable, Behavior is calm, cooperative, aj appropriate for age. Pain: Complains of pain in entire body. Neuro: Level of Consciousness is awake, alert, obeys commands, Oriented to person, place, time, situation, Appropriate for age. Respiratory: Airway is patent Respiratory effort is even, unlabored, Respiratory pattern is regular, symmetrical. GI: Reports nausea. Derm: Skin is intact, is healthy with good turgor, Skin is pink, warm \\T\\ dry. normal. 23:08 Reassessment: Patient appears in no apparent distress at this time. Patient and/or family updated on plan of care and expected duration. Pain level reassessed. Patient is alert, oriented x 3, equal unlabored respirations, skin warm/dry/pink. 23:45 Reassessment: RECD REPORT FROM SHARMAINE LEBRON. 17YO WF P/W HYPERGLYCEMIA, REPEAT BGL DUE bp AFTER IVF. 02/10 00:40 Reassessment: PT D/C HOME AMBULATORY WITH FAMILY, DX WITH HYPERGLYCEMIA. bp Vital Signs: 02/09 21:00 BP 114 / 74; Pulse 103; Resp 24; Temp 97.6(O); Pulse Ox 99% on R/A; Weight 61.23 kg fc (R); Height 5 ft. 4 in. (162.56 cm) (R); Pain 7/10; 23:15 BP 105 / 78; Pulse 100; Resp 18; Pulse Ox 100% on R/A; wh 02/10 00:15 BP 110 / 61; Pulse 100; Resp 14; Pulse Ox 100% ; bp 00:30 BP 91 / 55; Pulse 99; Resp 14; Pulse Ox 99% ; bp 02/09 21:00 Body Mass Index 23.17 (61.23 kg, 162.56 cm) ED Course: 02/09 21:00 Arm band placed on Patient placed in an exam room, on a stretcher. fc 21:09 Patient arrived in ED. fc 21:11 Michael Ramos PA is PHCP. jr8 21:11 Sameer Altamirano MD is Attending Physician. jr8 21:13 Triage completed. fc 21:14 Patient has correct armband on for positive identification. Placed in gown. Bed in low fc position. Call light in reach. 21:24 Inserted saline lock: 20 gauge in right antecubital area, using aseptic technique. Blood collected. 21:25 Manda Lainez, RN is Primary Nurse. 22:02 Report given to Sharmaine LEBRON. 22:03 Notified Nurse Practitioner and/or Physician Breaker Hand of a critical lab result(s), fc glucose 622. 22:26 Sharmaine Matos is Primary Nurse. 02/10 00:39 No provider procedures requiring assistance completed. IV discontinued, intact, bp bleeding controlled, No redness/swelling at site. Pressure dressing applied. Administered Medications: 02/09 22:02 Drug: NS 0.9% 1000 ml Route: IV; Rate: 1000 ml; Site: right antecubital; 02/10 00:41 Follow up: IV Status: Completed infusion; IV Intake: 1000ml 02/09 22:02 Drug: NS 0.9% 1000 ml Route: IV; Rate: 1000 ml; Site: right antecubital; 02/10 00:42 Follow up: IV Status: Completed infusion; IV Intake: 1000ml 02/09 22:36 Drug: Insulin Regular Human 10 units {Co-Signature: (Joshua Lew RN).} Route: Sub-Q; Site: right upper arm; 23:34 Follow up: Response: No adverse reaction 22:37 Drug: Insulin Regular Human 10 units {Co-Signature: (Joshua Lew RN).} Route: IVP; Site: right antecubital; 23:33 Follow up: Response: No adverse reaction 23:32 Drug: Insulin Regular Human 10 units {Co-Signature: (Joshua Lew RN).} Route: IVP; Site: right antecubital; 02/10 00:34 Follow up: Response: Marked relief of symptoms bp Point of Care Testing: Blood Glucose: 02/09 21:24 Blood Glucose: High (>450 mg/dL); 23:16 Blood Glucose: 388 mg/dL; 02/10 00:34 Blood Glucose: 174 mg/dL; bp Ranges: Intake: 00:41 IV: 1000ml; Total: 1000ml. bp 00:42 IV: 1000ml; Total: 2000ml. bp Outcome: 00:35 Discharge ordered by jrLola 00:40 Discharged to home ambulatory, with family. bp 00:40 Condition: stable 00:40 Discharge instructions given to patient, Instructed on discharge instructions, follow up and referral plans. Demonstrated understanding of instructions, follow-up care. 00:45 Patient left the ED. bp Signatures: Manda Lainez, RN RN aj Edilma Sparks RN RN Michael Hadley PA PA jr8 Sharmaine Matos Brian, RN RN bp Joshua Lew RN bp
--- NOTE | 2018-02-10 00:36 | EDPHYS ---
Physician Documentation [facility] Name: Salome Santacruz Age: 17 yrs Sex: Female : 2000 Arrival Date: 02/09/2018 Time: 21:09 Bed 20 Private MD: ED Physician Sameer Altamirano HPI: 02/09 21:50 This 17 yrs old Female presents to ER via Ambulatory with complaints of High jr8 Blood Sugar. 21:50 Onset: The symptoms/episode began/occurred acutely, yesterday. Associated signs and jr8 symptoms: Pertinent positives: nausea. Current symptoms: In the emergency department the patient's symptoms are unchanged from the initial presentation. The patient has experienced similar episodes in the past, several times. The patient has not recently seen a physician. Patient stated that she is a Type 1 diabetic with poor control of glucose. Stated that she has diffuse pain and nausea. Usually feels this way when she goes into DKA. Started with symptoms yesterday . 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 - Social history:: Smoking status: Patient/guardian denies using tobacco, Patient/guardian denies using alcohol, street drugs. - Ebola Screening: : Patient negative for fever greater than or equal to 101.5 degrees Fahrenheit, and additional compatible Ebola Virus Disease symptoms Patient denies exposure to infectious person Patient denies travel to an Ebola-affected area in the 21 days before illness onset. ROS: 21:50 Eyes: Negative for injury, pain, redness, and discharge, ENT: Negative for injury, jr8 pain, and discharge, Neck: Negative for injury, pain, and swelling, Cardiovascular: Negative for chest pain, palpitations, and edema, Respiratory: Negative for shortness of breath, cough, wheezing, and pleuritic chest pain, Back: Negative for injury and pain, MS/Extremity: Negative for injury and deformity, Skin: Negative for injury, rash, and discoloration, Neuro: Negative for headache, weakness, numbness, tingling, and seizure. 21:50 Abdomen/GI: Positive for nausea, Negative for abdominal pain, vomiting, diarrhea, constipation, abdominal cramps, abdominal distension, anorexia, dysphagia, hematemesis, black/tarry stool, rectal pain, rectal bleeding, bowel incontinence, flatulence. Exam: 21:50 Eyes: Pupils equal round and reactive to light, extra-ocular motions intact. Lids and jr8 lashes normal. Conjunctiva and sclera are non-icteric and not injected. Cornea within normal limits. Periorbital areas with no swelling, redness, or edema. ENT: Nares patent. No nasal discharge, no septal abnormalities noted. Tympanic membranes are normal and external auditory canals are clear. Oropharynx with no redness, swelling, or masses, exudates, or evidence of obstruction, uvula midline. Mucous membranes moist. Neck: Trachea midline, no thyromegaly or masses palpated, and no cervical lymphadenopathy. Supple, full range of motion without nuchal rigidity, or vertebral point tenderness. No Meningismus. Cardiovascular: Regular rate and rhythm with a normal S1 and S2. No gallops, murmurs, or rubs. Normal PMI, no JVD. No pulse deficits. Respiratory: Lungs have equal breath sounds bilaterally, clear to auscultation and percussion. No rales, rhonchi or wheezes noted. No increased work of breathing, no retractions or nasal flaring. Abdomen/GI: Soft, non-tender, with normal bowel sounds. No distension or tympany. No guarding or rebound. No evidence of tenderness throughout. Back: No spinal tenderness. No costovertebral tenderness. Full range of motion. Skin: Warm, dry with normal turgor. Normal color with no rashes, no lesions, and no evidence of cellulitis. MS/ Extremity: Pulses equal, no cyanosis. Neurovascular intact. Full, normal range of motion. Neuro: Awake and alert, GCS 15, oriented to person, place, time, and situation. Cranial nerves II-XII grossly intact. Motor strength 5/5 in all extremities. Sensory grossly intact. Cerebellar exam normal. Normal gait. Vital Signs: 21:00 BP 114 / 74; Pulse 103; Resp 24; Temp 97.6(O); Pulse Ox 99% on R/A; Weight 61.23 kg fc (R); Height 5 ft. 4 in. (162.56 cm) (R); Pain 02/09; 23:15 BP 105 / 78; Pulse 100; Resp 18; Pulse Ox 100% on R/A; wh 02/10 00:15 BP 110 / 61; Pulse 100; Resp 14; Pulse Ox 100% ; bp 00:30 BP 91 / 55; Pulse 99; Resp 14; Pulse Ox 99% ; bp 02/09 21:00 Body Mass Index 23.17 (61.23 kg, 162.56 cm) fc MDM: 02/09 21:11 Patient medically screened. [facility] 02/10 00:34 Data reviewed: vital signs, nurses notes, lab test result(s), and as a result, I will [facility] discharge patient. Data interpreted: Pulse oximetry: on room air is 100 %. Interpretation: normal. Counseling: I had a detailed discussion with the patient and/or guardian regarding: the historical points, exam findings, and any diagnostic results supporting the discharge/admit diagnosis, lab results, the need for outpatient follow up, a family practitioner, to return to the emergency department if symptoms worsen or persist or if there are any questions or concerns that arise at home. Response to treatment: the patient's symptoms have markedly improved after treatment, patient is well hydrated. 02/09 21:11 Order name: CBC with Diff; Complete Time: 21:48 02/09 21:11 Order name: Basic Metabolic Panel; Complete Time: 22:14 [facility] 02/09 21:11 Order name: Ketone, Serum; Complete Time: 22:14 [facility] 02/09 21:26 Order name: Urine Dipstick--Ancillary (enter results); Complete Time: 22:00 ms 02/09 21:26 Order name: Urine --Ancillary (enter results); Complete Time: 22:00 ca 02/09 21:11 Order name: Urine Test (obtain specimen); Complete Time: 21:26 [facility] 02/09 21: Order name: Urine Dipstick-Ancillary (obtain specimen); Complete Time: 21: [facility] 02/09 21:11 Order name: IV; Complete Time: : [facility] 02/09 21:11 Order name: Glucose Level; Complete Time: : [facility] Administered Medications: 02/09 22:02 Drug: NS 0.9% 1000 ml Route: IV; Rate: 1000 ml; Site: right antecubital; 02/10 00:41 Follow up: IV Status: Completed infusion; IV Intake: 1000ml 02/09 22:02 Drug: NS 0.9% 1000 ml Route: IV; Rate: 1000 ml; Site: right antecubital; 02/10 00:42 Follow up: IV Status: Completed infusion; IV Intake: 1000ml 02/09 22:36 Drug: Insulin Regular Human 10 units {Co-Signature: (Joshua Lew RN).} Route: Sub-; Site: right upper arm; 23:34 Follow up: Response: No adverse reaction 22:37 Drug: Insulin Regular Human 10 units {Co-Signature: (Joshua Lew RN).} Route: IVP; Site: right antecubital; 23:33 Follow up: Response: No adverse reaction 23:32 Drug: Insulin Regular Human 10 units {Co-Signature: (Joshua Lew RN).} Route: IVP; Site: right antecubital; 02/10 00:34 Follow up: Response: Marked relief of symptoms bp Point of Care Testing: Blood Glucose: 02/09 21:24 Blood Glucose: High (>450 mg/dL); 23:16 Blood Glucose: 388 mg/dL; 02/10 00:34 Blood Glucose: 174 mg/dL; bp Ranges: Critical Glucose Levels:Adult <50 mg/dl or >400 mg/dl <40 mg/dl or >180 mg/dl Disposition: :18 Co-signature as Attending Physician, Sameer Altamirano MD Available for consultation at ps1 all times. Disposition: 02/10/18 00:35 Discharged to Home. Impression: Hyperglycemia, unspecified. - Condition is Stable. - Discharge Instructions: Hyperglycemia, Blood Glucose Monitoring, Adult. - Medication Reconciliation Form, Thank You Letter, Antibiotic Education, Prescription Opioid Use form. - Follow up: Private Physician; When: 2 - 3 days; Reason: Recheck today's complaints, Continuance of care, Re-evaluation by your physician. - Problem is new. - Symptoms have improved. Signatures: Dispatcher [employer] Manda Manley, RN RN Edilma Herrera RN RN fc Roszak, Josh, PA PA jr8 Sharmaine Matos Brian, RN RN bp Sameer Altamirano MD MD ps1 Joshua Lew RN bp Corrections: (The following items were deleted from the chart) 00:45 00:35 02/10/2018 00:35 Discharged to Home. Impression: Hyperglycemia, unspecified. bp Condition is Stable. Forms are Medication Reconciliation Form, Thank You Letter, Antibiotic Education, Prescription Opioid Use. Follow up: Private Physician; When: 2 - 3 days; Reason: Recheck today's complaints, Continuance of care, Re-evaluation by your physician. Problem is new. Symptoms have improved. jr8
[2018-02-10 00:50] VITALS: TEMP 97.6
[2018-02-10 00:54] VITALS: BP 91/55; O2SAT 99
== END 2018-02-10 00:45 | disposition home or self-care (01) ==
LOC: ER 20:54
DX: E10.65 Type 1 diabetes mellitus with hyperglycemia (principal); Z79.4 Long term (current) use of insulin; Z88.8 Allergy status to other drugs, medicaments and biological substances
CPT/HCPCS: 36415; 80048; 81003; 81025; 82010; 82962; 85025; 96361; 96372; 96374; 99284; J7030

== ENCOUNTER 2018-08-17 10:56 | Emergency (ER) | payer SELFPAY ==
--- OUTSIDE RECORDS SUMMARY | 2018-08-17 11:02 | XMS REPORT | Clinical Summary ---
:2000 Author Organization [facility] Address [address] [place] [address] Care Team Providers Name Role Phone Sohail Xiong MD Primary Care Provider Allergies Active Allergy Reactions Severity Noted Date Comments Latex Rash Low 04/07/2017 Acetaminophen-Pamabrom Rash Low 04/07/2017 Bumps in mouth Onion Hives 05/18/2017 Promethazine Anxiety Low 04/07/2017 Severe anxiety attacks Tree Nut 06/17/2017 Medications Medication Sig Dispensed Refills Start End Date Status Date insulin regular (HUMULIN If NQ=[id number], give 1unit 10 mL 3 Active R,NOVOLIN R) 100 unit/mL If PU=923-419, give 2units 7 injection If EQ=326-619, give 4units If YG=117-406, give 6units If RN=405-034, give 8units. medroxyPROGESTERone Inject 150 mg 0 Active (DEPO-PROVERA) 150 mg/mL intramuscularly injectionIndications: every 3 (three) Contraception months. sertraline (ZOLOFT) 50 Take 50 mg by mouth 0 Active MG tabletIndications: daily. Anxiety with Depression traZODone (DESYREL) 50 Take 50 mg by mouth 0 Active MG tabletIndications: nightly. insomnia associated with depression ondansetron (ZOFRAN-ODT) Take 4 mg by mouth 0 Active 4 MG disintegrating every 8 (eight) tablet hours as needed for Nausea. insulin regular (HUMULIN Inject 0.1 mLs (10 10 mL 1 Active R,NOVOLIN R) 100 unit/mL Units total) 7 injectionIndications: subcutaneously 3 type 1 diabetes mellitus (three) times daily before meals Use as directed.. insulin degludec Inject 30 Units 2 Syringe 1 Active (TRESIBA FLEXTOUCH subcutaneously 7 U-100) 100 unit/mL (3 every evening. mL) InPn Active Problems Problem Noted Date Diabetic ketoacidosis without coma associated with diabetes mellitus due 06/17 to underlying condition Diabetic ketoacidosis without coma associated with type 1 diabetes 05/18/2017 mellitus DKA, type 1 04/07/2017 Nausea 04/07/2017 Immunizations Name Dates Previously Given Next Due Influenza Three-TIV PF 5+ YR 05/18/2017 Social History Tobacco Use Types Packs/Day Years Used Date Former Smoker Quit: 06/18/2016 Smokeless Tobacco: Never Used Alcohol Use Drinks/Week oz/Week Comments No Sex Assigned at Date Recorded Not on file Job Start Date Occupation Industry Not on file Not on file Not on file Travel History Travel Start Travel End No recent travel history available. Last Filed Vital Signs Not on file Plan of Treatment Not on file Results Not on fileafter 08/16/2017 Insurance Payer Benefit Plan / Group Subscriber ID Type Phone Address OTHER-COMMERCIAL GENERIC COMMERCIAL xxxxxxxxx Advance Directives For more information, please contact:[address] [phone] Code Status Date Activated Date Inactivated Comments Full Code 06/17/2017 10:54 AM 06/19/2017 2:40 PM This code status was determined by: Patient Full Code 05/18/2017 7:25 AM 05/19/2017 7:18 PM This code status was determined by: Patient Full Code 04/07/2017 3:28 PM 04/09/2017 7:53 PM This code status was determined by: Patient
--- OUTSIDE RECORDS SUMMARY | 2018-08-17 11:03 | XMS REPORT ---
:2000 [facility] Address [address] [place] [id number] Care Team Providers Name Role Phone ARLYNANTONIETA LIAOBEST PETERSEN Unavailable Unavailable RAFA HODGES Unavailable Unavailable TOMER CHACON Unavailable Unavailable Problems This patient has no known problems. Allergies, Adverse Reactions, Alerts This patient has no known allergies or adverse reactions. Medications This patient has no known medications. Results Test Description Test Time Test Comments Text Results Atomic Results Result Comments US PELVIC (TRANSVAGINAL 2018-03-16 14:02:32 CLINICAL INDICATION: R10.2 ONLY) Pelvic and perineal painTECHNIQUE:Real-time and doppler transvaginal ultrasound evaluation of the pelvis was performed on the [employer] Pre[employer].Comparison study: No prior study.FINDINGS:Uterus: 8.2 x 3.9 x 5.1 cm. Homogeneous echotexture without focal mass. Small volume fluid within the endometrial canal. Endometrial stripe: 7.0 mm. Right ovary: 4.2 x 1.9 x 3.7 cm with a volume of 15.6 ml. Several small follicles. Left Ovary: 3.5 x 2.1 x 2.6 cm with a volume of 9.9 ml. Simple cyst measuring 1.8 x 1.5 x 1.5 cm. Adnexa: No free fluid or adnexal mass.IMPRESSION:1. Simple, 1.8 cm left ovarian cyst.2. No other significant findings. POCT-GLUCOSE METER 2017-06-19 10:41:00 Test Item Value Reference Range Comments POC-GLUCOSE METER (BEAKER) (test 230 mg/dL 70-110 TESTED AT [facility] [address] [facility] [address] lqzn=3445) [facility] [address] POCT-GLUCOSE [id number] 08:32:00 Test Item Value Reference Range Comments POC-GLUCOSE METER (BEAKER) 70 mg/dL 70-110 TESTED AT [facility] [address] [facility] (test bmej=7009) WAY [facility] [address] POCT-GLUCOSE [id number] 05:13:00 Test Item Value Reference Range Comments POC-GLUCOSE METER (BEAKER) 152 mg/dL 70-110 TESTED AT [facility] [address] [facility] (test ldpw=9430) WAY [facility] [address] POCT-GLUCOSE [id number] 04:14:00 Test Item Value Reference Range Comments POC-GLUCOSE METER (BEAKER) 55 mg/dL 70-110 TESTED AT [facility] [address] [facility] (test atqk=6983) WAY [facility] [address] POCT-GLUCOSE [id number] 20:37:00 Test Item Value Reference Range Comments POC-GLUCOSE METER (BEAKER) 204 mg/dL 70-110 TESTED AT [facility] [address] [facility] (test cpfw=3396) [facility] [address] POCT-GLUCOSE [id number] 19:01:00 Test Item Value Reference Range Comments POC-GLUCOSE METER (BEAKER) 88 mg/dL 70-110 TESTED AT [facility] [address] [facility] (test noxr=9383) WAY [facility] [address] POCT-GLUCOSE [id number] 17:27:00 Test Item Value Reference Range Comments POC-GLUCOSE METER (BEAKER) 253 mg/dL 70-110 TESTED AT [facility] [address] [facility] (test awdy=6633) WAY [facility] [address] POCT-GLUCOSE [id number] 15:36:00 Test Item Value Reference Range Comments POC-GLUCOSE METER (BEAKER) 366 mg/dL 70-110 TESTED AT [facility] [address] [facility] (test hedg=1486) WAY [facility] [address] POCT-GLUCOSE [id number] 11:51:00 Test Item Value Reference Range Comments POC-GLUCOSE METER (BEAKER) 194 mg/dL 70-110 TESTED AT [facility] [address] [facility] (test stjc=7786) [facility] [address] POCT-GLUCOSE [id number] 10:19:00 Test Item Value Reference Range Comments POC-GLUCOSE METER (BEAKER) 147 mg/dL 70-110 TESTED AT [address] (test diyb=4544) [facility] [address] BASIC METABOLIC [id number] 09:23:00 Test Item Value Reference Range Comments SODIUM (BEAKER) (test 135 meq/L 135-148 xfpm=485) POTASSIUM (BEAKER) (test 3.5 meq/L 3.5-5.5 cugh=551) CHLORIDE (BEAKER) (test 108 meq/L 98-106 szek=152) CO2 (BEAKER) (test 20 meq/L 20-31 ypwf=247) BLOOD UREA NITROGEN 8 mg/dL 10-26 (BEAKER) (test rnya=411) CREATININE (BEAKER) (test 0.90 mg/dL 0.50-1.20 vqmc=819) GLUCOSE RANDOM (BEAKER) 164 mg/dL 70-110 (test czgk=018) CALCIUM (BEAKER) (test 8.6 mg/dL 8.5-10.5 qctp=257) EGFR (BEAKER) (test 81 mL/min/1.73 sq m ESTIMATED GFR IS NOT sbco=0145) ACCURATE CREATININE CLEARANCE IN PREDICTING GLOMERULAR FILTRATION RATE. ESTIMATED GFR IS NOT APPLICABLE FOR DIALYSIS PATIENTS. POCT-GLUCOSE [id number] 08:02:00 Test Item Value Reference Range Comments POC-GLUCOSE METER (BEAKER) 161 mg/dL 70-110 TESTED AT [address] (test dnwm=5652) [facility] [address] POCT-GLUCOSE [id number] 07:03:00 Test Item Value Reference Range Comments POC-GLUCOSE METER (BEAKER) 151 mg/dL 70-110 TESTED AT [address] (test kmrk=6032) [facility] [address] POCT-GLUCOSE [id number] 05:08:00 Test Item Value Reference Range Comments POC-GLUCOSE METER (BEAKER) 158 mg/dL 70-110 TESTED AT [address] (test vegc=7100) [facility] [address] BASIC METABOLIC [id number] 04:51:00 Test Item Value Reference Range Comments SODIUM (BEAKER) (test 137 meq/L 135-148 ykje=126) POTASSIUM (BEAKER) (test 3.3 meq/L 3.5-5.5 eyjr=337) CHLORIDE (BEAKER) (test 111 meq/L 98-106 aoki=153) CO2 (BEAKER) (test 15 meq/L 20-31 kyey=085) BLOOD UREA NITROGEN 9 mg/dL 10-26 (BEAKER) (test ctil=690) CREATININE (BEAKER) (test 0.84 mg/dL 0.50-1.20 zjct=215) GLUCOSE RANDOM (BEAKER) 160 mg/dL 70-110 (test maee=838) CALCIUM (BEAKER) (test 8.3 mg/dL 8.5-10.5 tnuv=689) EGFR (BEAKER) (test 87 mL/min/1.73 sq m ESTIMATED GFR IS NOT npam=8099) ACCURATE CREATININE CLEARANCE IN PREDICTING GLOMERULAR FILTRATION RATE. ESTIMATED GFR IS NOT APPLICABLE FOR DIALYSIS PATIENTS. POCT-GLUCOSE [id number] 03:03:00 Test Item Value Reference Range Comments POC-GLUCOSE METER (BEAKER) 153 mg/dL 70-110 TESTED AT [facility] [address] [facility] (test ollc=3908) [facility] [address] POCT-GLUCOSE [id number] 02:09:00 Test Item Value Reference Range Comments POC-GLUCOSE METER (BEAKER) 159 mg/dL 70-110 TESTED AT [facility] [address] [facility] (test clzd=0765) [facility] [address] POCT-GLUCOSE [id number] 01:08:00 Test Item Value Reference Range Comments POC-GLUCOSE METER (BEAKER) 174 mg/dL 70-110 TESTED AT [facility] [address] [facility] (test hmwy=2968) [facility] [address] BASIC METABOLIC [id number] 00:38:00 Test Item Value Reference Range Comments SODIUM (BEAKER) (test 137 meq/L 135-148 tdze=872) POTASSIUM (BEAKER) (test 3.8 meq/L 3.5-5.5 svqo=672) CHLORIDE (BEAKER) (test 111 meq/L 98-106 bwcd=287) CO2 (BEAKER) (test 12 meq/L 20-31 satm=933) BLOOD UREA NITROGEN 9 mg/dL 10-26 (BEAKER) (test skkq=585) CREATININE (BEAKER) (test 0.91 mg/dL 0.50-1.20 xspd=724) GLUCOSE RANDOM (BEAKER) 173 mg/dL 70-110 (test hwwv=902) CALCIUM (BEAKER) (test 8.4 mg/dL 8.5-10.5 twwn=599) EGFR (BEAKER) (test 80 mL/min/1.73 sq m ESTIMATED GFR IS NOT ymub=5124) ACCURATE CREATININE CLEARANCE IN PREDICTING GLOMERULAR FILTRATION RATE. ESTIMATED GFR IS NOT APPLICABLE FOR DIALYSIS PATIENTS. POCT-GLUCOSE [id number] 00:37:00 Test Item Value Reference Range Comments POC-GLUCOSE METER (BEAKER) 198 mg/dL 70-110 TESTED AT [facility] [address] [facility] (test qgmf=2061) WAY [facility] [address] POCT-GLUCOSE [id number] 00:14:00 Test Item Value Reference Range Comments POC-GLUCOSE METER (BEAKER) 162 mg/dL 70-110 TESTED AT [facility] [id number] [place] [address] (test zicd=0436) [facility] [address] POCT-GLUCOSE [id number] 23:39:00 Test Item Value Reference Range Comments POC-GLUCOSE METER (BEAKER) 149 mg/dL 70-110 TESTED AT [facility] [id number] [place] [address] (test llzd=4866) [facility] [address] POCT-GLUCOSE [id number] 23:10:00 Test Item Value Reference Range Comments POC-GLUCOSE METER (BEAKER) 134 mg/dL 70-110 TESTED AT [facility] [id number] [place] [address] (test cevq=9525) [facility] [address] POCT-GLUCOSE [id number] 22:41:00 Test Item Value Reference Range Comments POC-GLUCOSE METER (BEAKER) 112 mg/dL 70-110 TESTED AT [facility] [id number] [place] [address] (test kxfc=1866) [facility] [address] POCT-GLUCOSE [id number] 21:59:00 Test Item Value Reference Range Comments POC-GLUCOSE METER (BEAKER) 95 mg/dL 70-110 TESTED AT [facility] [id number] [place] [address] (test lyyl=2725) [facility] [address] POCT-GLUCOSE [id number] 21:39:00 Test Item Value Reference Range Comments POC-GLUCOSE METER (BEAKER) 110 mg/dL 70-110 TESTED AT [facility] [id number] [place] [address] (test qeue=5004) [facility] [address] POCT-GLUCOSE [id number] 21:07:00 Test Item Value Reference Range Comments POC-GLUCOSE METER (BEAKER) 114 mg/dL 70-110 TESTED AT [facility] [id number] [place] [address] (test lnuc=4137) [place] [address] BASIC METABOLIC [id number] 20:47:00 Test Item Value Reference Range Comments SODIUM (BEAKER) (test 139 meq/L 135-148 udwn=131) POTASSIUM (BEAKER) (test 3.7 meq/L 3.5-5.5 fgqr=322) CHLORIDE (BEAKER) (test 112 meq/L 98-106 urdl=902) CO2 (BEAKER) (test 12 meq/L 20-31 bzdq=442) BLOOD UREA NITROGEN 9 mg/dL 10-26 (BEAKER) (test dqjy=560) CREATININE (BEAKER) (test 1.03 mg/dL 0.50-1.20 kpfv=965) GLUCOSE RANDOM (BEAKER) 162 mg/dL 70-110 (test zcaf=616) CALCIUM (BEAKER) (test 8.6 mg/dL 8.5-10.5 suuh=321) EGFR (BEAKER) (test 69 mL/min/1.73 sq m ESTIMATED GFR IS NOT ftju=7015) ACCURATE CREATININE CLEARANCE IN PREDICTING GLOMERULAR FILTRATION RATE. ESTIMATED GFR IS NOT APPLICABLE FOR DIALYSIS PATIENTS. POCT-GLUCOSE [id number] 20:17:00 Test Item Value Reference Range Comments POC-GLUCOSE METER (BEAKER) 176 mg/dL 70-110 TESTED AT [facility] [id number] [place] [address] (test tqxw=6911) [facility] [address] [id number] 19:09:00 Test Item Value Reference Range Comments GLUCOSE RANDOM (BEAKER) (test atik=657) 230 mg/dL 70-110 If last glucose was less than 500, may do bedside glucose instead of serum glucose.POCT-GLUCOSE [id number] 18:53:00 Test Item Value Reference Range Comments POC-GLUCOSE METER (BEAKER) 212 mg/dL 70-110 TESTED AT [facility] [address] [facility] (test swie=3288) [place] [address] POCT-GLUCOSE [id number] 17:14:00 Test Item Value Reference Range Comments POC-GLUCOSE METER (BEAKER) 145 mg/dL 70-110 TESTED AT [facility] [address] [facility] (test hdnk=8990) [facility] [address] BASIC METABOLIC [id number] 16:51:00 Test Item Value Reference Range Comments SODIUM (BEAKER) (test 140 meq/L 135-148 ggni=025) POTASSIUM (BEAKER) (test 3.9 meq/L 3.5-5.5 ivhb=994) CHLORIDE (BEAKER) (test 114 meq/L 98-106 rfbu=264) CO2 (BEAKER) (test 14 meq/L 20-31 sbff=722) BLOOD UREA NITROGEN 10 mg/dL 10-26 (BEAKER) (test fprl=416) CREATININE (BEAKER) (test 0.94 mg/dL 0.50-1.20 dmwu=669) GLUCOSE RANDOM (BEAKER) 126 mg/dL 70-110 (test fqyj=154) CALCIUM (BEAKER) (test 8.4 mg/dL 8.5-10.5 iqqh=100) EGFR (BEAKER) (test 77 mL/min/1.73 sq m ESTIMATED GFR IS NOT pyrq=5616) ACCURATE CREATININE CLEARANCE IN PREDICTING GLOMERULAR FILTRATION RATE. ESTIMATED GFR IS NOT APPLICABLE FOR DIALYSIS PATIENTS. If last glucose was less than 500, may do bedside glucose instead of serum glucose.[id number] 16:47:00 Test Item Value Reference Range Comments GLUCOSE RANDOM (BEAKER) (test iphc=034) 126 mg/dL 70-110 If last glucose was less than 500, may do bedside glucose instead of serum glucose.POCT-GLUCOSE [id number] 16:04:00 Test Item Value Reference Range Comments POC-GLUCOSE METER (BEAKER) 119 mg/dL 70-110 TESTED AT [facility] [address] [facility] (test ojxp=0233) [facility] [address] [id number] 14:30:00 Test Item Value Reference Range Comments POTASSIUM (BEAKER) (test mkum=008) 3.9 meq/L 3.5-5.5 If last glucose was less than 500, may do bedside glucose instead of serum glucose.[id number] 14:30:00 Test Item Value Reference Range Comments GLUCOSE RANDOM (BEAKER) (test kkpo=652) 190 mg/dL 70-110 If last glucose was less than 500, may do bedside glucose instead of serum glucose.POCT-GLUCOSE [id number] 14:05:00 Test Item Value Reference Range Comments POC-GLUCOSE METER (BEAKER) 194 mg/dL 70-110 TESTED AT [facility] [address] [facility] (test gtyv=7657) [facility] [address] POCT-GLUCOSE [id number] 13:15:00 Test Item Value Reference Range Comments POC-GLUCOSE METER (BEAKER) 229 mg/dL 70-110 TESTED AT [facility] [address] [facility] (test vioa=0780) [facility] [address] BASIC METABOLIC [id number] 12:44:00 Test Item Value Reference Range Comments SODIUM (BEAKER) (test 136 meq/L 135-148 jyor=231) POTASSIUM (BEAKER) (test 4.0 meq/L 3.5-5.5 ihfo=047) CHLORIDE (BEAKER) (test 111 meq/L 98-106 ohmr=263) CO2 (BEAKER) (test 12 meq/L 20-31 pfrf=656) BLOOD UREA NITROGEN 12 mg/dL 10-26 (BEAKER) (test pmix=636) CREATININE (BEAKER) (test 0.99 mg/dL 0.50-1.20 saeh=170) GLUCOSE RANDOM (BEAKER) 258 mg/dL 70-110 (test cqar=699) CALCIUM (BEAKER) (test 8.1 mg/dL 8.5-10.5 siuh=555) EGFR (BEAKER) (test 72 mL/min/1.73 sq m ESTIMATED GFR IS NOT uqxy=0744) ACCURATE CREATININE CLEARANCE IN PREDICTING GLOMERULAR FILTRATION RATE. ESTIMATED GFR IS NOT APPLICABLE FOR DIALYSIS PATIENTS. If last glucose was less than 500, may do bedside glucose instead of serum glucose.[id number] 12:43:00 Test Item Value Reference Range Comments GLUCOSE RANDOM (BEAKER) (test wmwe=146) 258 mg/dL 70-110 If last glucose was less than 500, may do bedside glucose instead of serum glucose.POCT-GLUCOSE [id number] 12:03:00 Test Item Value Reference Range Comments POC-GLUCOSE METER (BEAKER) 238 mg/dL 70-110 TESTED AT [facility] [address] [facility] (test auvn=5976) [facility] [address] POCT-GLUCOSE [id number] 11:05:00 Test Item Value Reference Range Comments POC-GLUCOSE METER (BEAKER) 261 mg/dL 70-110 TESTED AT [facility] [address] [facility] (test pcbr=7383) [facility] [address] HEMOGLOBIN [id number] 10:07:00 Test Item Value Reference Range Comments HEMOGLOBIN A1C (BEAKER) (test lrsf=022) > % 4.3-6.1 [id number] 10:00:00 Test Item Value Reference Range Comments GLUCOSE RANDOM (BEAKER) (test jpfq=604) 441 mg/dL 70-110 If last glucose was less than 500, may do bedside glucose instead of serum glucose.[id number] 09:55:00 Test Item Value Reference Range Comments POTASSIUM (BEAKER) (test ljur=554) 4.1 meq/L 3.5-5.5 If last glucose was less than 500, may do bedside glucose instead of serum glucose.POCT-GLUCOSE [id number] 09:18:00 Test Item Value Reference Range Comments POC-GLUCOSE METER (BEAKER) > mg/dL 70-110 OUTSIDE MEASURING RANGETESTED AT (test wuhb=8393) [facility] [address] [facility] [address] [id number] 09:15:00 Test Item Value Reference Range Comments GLUCOSE RANDOM (BEAKER) (test uyus=902) 585 mg/dL 70-110 If last glucose was less than 500, may do bedside glucose instead of serum glucose.COMPREHENSIVE METABOLIC [id number] 08:30:00 Test Item Value Reference Range Comments TOTAL PROTEIN (BEAKER) 8.2 gm/dL 6.0-8.5 (test omaz=461) ALBUMIN (BEAKER) (test 4.5 g/dL 3.5-5.0 qzxw=3508) ALKALINE PHOSPHATASE 135 U/L 30-115 (BEAKER) (test oskp=460) BILIRUBIN TOTAL (BEAKER) 0.3 mg/dL 0.1-1.3 (test vwor=383) SODIUM (BEAKER) (test 130 meq/L 135-148 oomq=396) POTASSIUM (BEAKER) (test 4.6 meq/L 3.5-5.5 yoff=385) CHLORIDE (BEAKER) (test 96 meq/L 98-106 flbz=584) CO2 (BEAKER) (test 10 meq/L 20-31 jsih=055) BLOOD UREA NITROGEN 16 mg/dL 10-26 (BEAKER) (test togh=827) CREATININE (BEAKER) (test 1.49 mg/dL 0.50-1.20 rubn=910) GLUCOSE RANDOM (BEAKER) 637 mg/dL 70-110 (test cjmh=094) CALCIUM (BEAKER) (test 9.5 mg/dL 8.5-10.5 hhgp=934) AST (SGOT) (BEAKER) (test 12 U/L 5-40 wcds=258) ALT (SGPT) (BEAKER) (test 14 U/L 6-50 rzak=987) EGFR (BEAKER) (test 45 mL/min/1.73 sq m ESTIMATED GFR IS NOT gdys=4022) ACCURATE CREATININE CLEARANCE IN PREDICTING GLOMERULAR FILTRATION RATE. ESTIMATED GFR IS NOT APPLICABLE FOR DIALYSIS PATIENTS. CBC W/PLT COUNT & AUTO [id number] 08:29:00 Test Item Value Reference Range Comments WHITE BLOOD CELL COUNT (BEAKER) (test igea=778) 7.7 K/ L 4.0-10.0 RED BLOOD CELL COUNT (BEAKER) (test lhkc=220) 5.18 M/ L 4.00-5.00 HEMOGLOBIN (BEAKER) (test bvfd=251) 14.6 GM/DL 12.0-15.0 HEMATOCRIT (BEAKER) (test utbv=979) 43.9 % 36.0-45.0 MEAN CORPUSCULAR VOLUME (BEAKER) (test noga=812) 84.8 fL 82.0-99.0 MEAN CORPUSCULAR HEMOGLOBIN (BEAKER) (test 28.1 pg 27.0-33.0 xjyw=941) MEAN CORPUSCULAR HEMOGLOBIN CONC (BEAKER) (test 33.1 GM/DL 32.0-36.0 fziv=957) RED CELL DISTRIBUTION WIDTH (BEAKER) (test 12.3 % 12.0-15.0 szms=020) PLATELET COUNT (BEAKER) (test umvz=186) 421 K/CU MM 150-430 MEAN PLATELET VOLUME (BEAKER) (test cxvj=231) 8.0 fL 6.5-10.5 NUCLEATED RED BLOOD CELLS (BEAKER) (test 0 /100 WBC 0-0 nbby=817) NEUTROPHILS RELATIVE PERCENT (BEAKER) (test 50 % ckhv=409) LYMPHOCYTES RELATIVE PERCENT (BEAKER) (test 45 % inle=621) MONOCYTES RELATIVE PERCENT (BEAKER) (test 5 % wslb=515) EOSINOPHILS RELATIVE PERCENT (BEAKER) (test 1 % zyvr=145) BASOPHILS RELATIVE PERCENT (BEAKER) (test 1 % jeni=223) NEUTROPHILS ABSOLUTE COUNT (BEAKER) (test 3.80 K/ L 1.80-8.00 wuan=138) LYMPHOCYTES ABSOLUTE COUNT (BEAKER) (test 3.40 K/ L 1.48-4.50 qgrz=737) MONOCYTES ABSOLUTE COUNT (BEAKER) (test 0.40 K/ L 0.00-1.30 vpqo=524) EOSINOPHILS ABSOLUTE COUNT (BEAKER) (test 0.10 K/ L 0.00-0.50 jckk=672) BASOPHILS ABSOLUTE COUNT (BEAKER) (test 0.00 K/ L 0.00-0.20 hxcw=248) [id number] 08:25:00 Test Item Value Reference Range Comments PHOSPHORUS (BEAKER) (test exku=402) 4.0 mg/dL 2.5-4.5 [id number] 08:25:00 Test Item Value Reference Range Comments MAGNESIUM (BEAKER) (test mudb=546) 2.0 mg/dL 1.5-3.0 SCREEN, [id number] 08:16:00 Test Item Value Reference Range Comments TEST URINE (BEAKER) (test lggr=551) Negative URINALYSIS W/ [id number] 08:16:00 Test Item Value Reference Range Comments COLOR (BEAKER) (test anxp=771) Colorless CLARITY (BEAKER) (test voud=476) Clear SPECIFIC GRAVITY UA (BEAKER) (test euns=240) 1.025 1.001-1.035 PH UA (BEAKER) (test stgu=440) 5.0 5.0-8.0 PROTEIN UA (BEAKER) (test gsgi=992) Negative Negative GLUCOSE UA (BEAKER) (test wlvq=180) >500 mg/dL Negative KETONES UA (BEAKER) (test sxwe=977) 80 mg/dL Negative BILIRUBIN UA (BEAKER) (test yvub=498) Negative Negative BLOOD UA (BEAKER) (test jlfs=394) Negative Negative NITRITE UA (BEAKER) (test upwv=777) Negative Negative LEUKOCYTE ESTERASE UA (BEAKER) (test dgra=392) Negative Negative UROBILINOGEN UA (BEAKER) (test crgi=663) < mg/dL 0.2-1.0 RBC UA (BEAKER) (test gohm=311) 0 /HPF WBC UA (BEAKER) (test vqgt=894) < /HPF MUCUS (BEAKER) (test sofw=8748) Rare SOURCE(BEAKER) (test skfg=8593) KETONE, [id number] 08:09:00 Test Item Value Reference Range Comments KETONES, BLOOD (BEAKER) (test eyud=5104) 6.1 mmol/L <0.4 PH, [id number] 08:08:00 Test Item Value Reference Range Comments PH VENOUS (BEAKER) (test mxqy=508) 7.18 7.32-7.42 BLOOD [id number] 13:00:00 Test Item Value Reference Range Comments CULTURE (BEAKER) (test bzvg=3509) No growth in 5 days BLOOD [id number] 13:00:00 Test Item Value Reference Range Comments CULTURE (BEAKER) (test usuv=7381) No growth in 5 days POCT-GLUCOSE [id number] 17:12:00 Test Item Value Reference Range Comments POC-GLUCOSE METER (BEAKER) 136 mg/dL 70-110 TESTED AT [facility] [address] [facility] (test gbke=5376) [facility] [address] POCT-GLUCOSE [id number] 16:37:00 Test Item Value Reference Range Comments POC-GLUCOSE METER (BEAKER) 45 mg/dL 70-110 TESTED AT [facility] [address] [facility] (test izcd=3499) [facility] [address] POCT-GLUCOSE [id number] 11:32:00 Test Item Value Reference Range Comments POC-GLUCOSE METER (BEAKER) 98 mg/dL 70-110 TESTED AT [facility] [address] [facility] (test rfqw=1423) [facility] [address] POCT-GLUCOSE [id number] 06:45:00 Test Item Value Reference Range Comments POC-GLUCOSE METER (BEAKER) 85 mg/dL 70-110 TESTED AT [facility] [address] [facility] (test nfub=5215) [facility] [address] [id number] 06:25:00 Test Item Value Reference Range Comments PHOSPHORUS (BEAKER) (test oxbc=107) 2.4 mg/dL 2.5-4.5 [id number] 06:25:00 Test Item Value Reference Range Comments MAGNESIUM (BEAKER) (test xaks=537) 2.4 mg/dL 1.5-3.0 BASIC METABOLIC [id number] 06:25:00 Test Item Value Reference Range Comments SODIUM (BEAKER) (test 138 meq/L 135-148 nyry=551) POTASSIUM (BEAKER) (test 3.9 meq/L 3.5-5.5 laqg=638) CHLORIDE (BEAKER) (test 110 meq/L 98-106 vqvl=766) CO2 (BEAKER) (test 19 meq/L 20-31 fwpg=996) BLOOD UREA NITROGEN 3 mg/dL 10-26 (BEAKER) (test rfjm=033) CREATININE (BEAKER) (test 0.79 mg/dL 0.50-1.20 cgwm=370) GLUCOSE RANDOM (BEAKER) 104 mg/dL 70-110 (test kdnt=707) CALCIUM (BEAKER) (test 8.6 mg/dL 8.5-10.5 tsjb=026) EGFR (BEAKER) (test 94 mL/min/1.73 sq m ESTIMATED GFR IS NOT veeq=7396) ACCURATE CREATININE CLEARANCE IN PREDICTING GLOMERULAR FILTRATION RATE. ESTIMATED GFR IS NOT APPLICABLE FOR DIALYSIS PATIENTS. CBC W/PLT COUNT & AUTO [id number] 05:58:00 Test Item Value Reference Range Comments WHITE BLOOD CELL COUNT (BEAKER) (test iwka=083) 9.2 K/ L 4.0-10.0 RED BLOOD CELL COUNT (BEAKER) (test qtgf=213) 4.36 M/ L 4.00-5.00 HEMOGLOBIN (BEAKER) (test xfwa=577) 12.6 GM/DL 12.0-15.0 HEMATOCRIT (BEAKER) (test lfks=130) 37.0 % 36.0-45.0 MEAN CORPUSCULAR VOLUME (BEAKER) (test yldl=517) 84.8 fL 82.0-99.0 MEAN CORPUSCULAR HEMOGLOBIN (BEAKER) (test 29.0 pg 27.0-33.0 hlvg=890) MEAN CORPUSCULAR HEMOGLOBIN CONC (BEAKER) (test 34.2 GM/DL 32.0-36.0 efcn=513) RED CELL DISTRIBUTION WIDTH (BEAKER) (test 12.5 % 12.0-15.0 zghn=910) PLATELET COUNT (BEAKER) (test gbtz=665) 359 K/CU MM 150-430 MEAN PLATELET VOLUME (BEAKER) (test ccld=378) 7.2 fL 6.5-10.5 NUCLEATED RED BLOOD CELLS (BEAKER) (test 0 /100 WBC 0-0 rani=069) NEUTROPHILS RELATIVE PERCENT (BEAKER) (test 53 % ybzm=983) LYMPHOCYTES RELATIVE PERCENT (BEAKER) (test 40 % fyil=495) MONOCYTES RELATIVE PERCENT (BEAKER) (test 5 % hpxy=579) EOSINOPHILS RELATIVE PERCENT (BEAKER) (test 2 % drqu=084) BASOPHILS RELATIVE PERCENT (BEAKER) (test 0 % jsft=469) NEUTROPHILS ABSOLUTE COUNT (BEAKER) (test 4.90 K/ L 1.80-8.00 rawe=530) LYMPHOCYTES ABSOLUTE COUNT (BEAKER) (test 3.70 K/ L 1.48-4.50 zbod=079) MONOCYTES ABSOLUTE COUNT (BEAKER) (test 0.50 K/ L 0.00-1.30 bxji=435) EOSINOPHILS ABSOLUTE COUNT (BEAKER) (test 0.20 K/ L 0.00-0.50 feqt=494) BASOPHILS ABSOLUTE COUNT (BEAKER) (test 0.00 K/ L 0.00-0.20 gtat=939) POCT-GLUCOSE [id number] 05:38:00 Test Item Value Reference Range Comments POC-GLUCOSE METER (BEAKER) 102 mg/dL 70-110 TESTED AT [address] (test pret=0903) [facility] [address] POCT-GLUCOSE [id number] 03:29:00 Test Item Value Reference Range Comments POC-GLUCOSE METER (BEAKER) 163 mg/dL 70-110 TESTED AT [address] (test qjor=2776) [facility] [address] POCT-GLUCOSE [id number] 03:29:00 Test Item Value Reference Range Comments POC-GLUCOSE METER (BEAKER) 155 mg/dL 70-110 TESTED AT [facility] [address] [facility] (test jppp=3119) [facility] [address] BASIC METABOLIC [id number] 01:42:00 Test Item Value Reference Range Comments SODIUM (BEAKER) (test 136 meq/L 135-148 agvi=601) POTASSIUM (BEAKER) (test 3.7 meq/L 3.5-5.5 anaf=815) CHLORIDE (BEAKER) (test 109 meq/L 98-106 zeud=054) CO2 (BEAKER) (test 17 meq/L 20-31 ceje=281) BLOOD UREA NITROGEN 3 mg/dL 10-26 (BEAKER) (test zwif=483) CREATININE (BEAKER) (test 0.79 mg/dL 0.50-1.20 gztp=629) GLUCOSE RANDOM (BEAKER) 153 mg/dL 70-110 (test bqin=382) CALCIUM (BEAKER) (test 8.2 mg/dL 8.5-10.5 hxwr=547) EGFR (BEAKER) (test 94 mL/min/1.73 sq m ESTIMATED GFR IS NOT aowh=0181) ACCURATE CREATININE CLEARANCE IN PREDICTING GLOMERULAR FILTRATION RATE. ESTIMATED GFR IS NOT APPLICABLE FOR DIALYSIS PATIENTS. [id number] 01:39:00 Test Item Value Reference Range Comments PHOSPHORUS (BEAKER) (test exjj=232) 2.1 mg/dL 2.5-4.5 [id number] 01:39:00 Test Item Value Reference Range Comments MAGNESIUM (BEAKER) (test pbrh=786) 2.0 mg/dL 1.5-3.0 POCT-GLUCOSE [id number] 01:19:00 Test Item Value Reference Range Comments POC-GLUCOSE METER (BEAKER) 152 mg/dL 70-110 TESTED AT [facility] [address] [facility] (test nabc=7073) [facility] [address] POCT-GLUCOSE [id number] 01:07:00 Test Item Value Reference Range Comments POC-GLUCOSE METER (BEAKER) 145 mg/dL 70-110 TESTED AT [facility] [address] [facility] (test hxgo=9712) [facility] [address] POCT-GLUCOSE [id number] 01:07:00 Test Item Value Reference Range Comments POC-GLUCOSE METER (BEAKER) 165 mg/dL 70-110 TESTED AT [facility] [address] [facility] (test wkla=9914) [facility] [address] POCT-GLUCOSE [id number] 01:07:00 Test Item Value Reference Range Comments POC-GLUCOSE METER (BEAKER) 163 mg/dL 70-110 TESTED AT [facility] [address] [facility] (test eceg=0850) [facility] [address] BASIC METABOLIC [id number] 20:59:00 Test Item Value Reference Range Comments SODIUM (BEAKER) (test 137 meq/L 135-148 axui=426) POTASSIUM (BEAKER) (test 3.9 meq/L 3.5-5.5 Specimen slightly wntq=532) hemolyzed CHLORIDE (BEAKER) (test 111 meq/L 98-106 cfer=461) CO2 (BEAKER) (test 13 meq/L 20-31 ynhh=740) BLOOD UREA NITROGEN 4 mg/dL 10-26 (BEAKER) (test vdme=448) CREATININE (BEAKER) (test 0.83 mg/dL 0.50-1.20 Specimen slightly oofa=872) hemolyzed GLUCOSE RANDOM (BEAKER) 160 mg/dL 70-110 (test pnnz=953) CALCIUM (BEAKER) (test 8.5 mg/dL 8.5-10.5 foev=936) EGFR (BEAKER) (test 89 mL/min/1.73 sq m ESTIMATED GFR IS NOT vxre=2169) ACCURATE CREATININE CLEARANCE IN PREDICTING GLOMERULAR FILTRATION RATE. ESTIMATED GFR IS NOT APPLICABLE FOR DIALYSIS PATIENTS. [id number] 20:58:00 Test Item Value Reference Range Comments MAGNESIUM (BEAKER) (test 1.8 mg/dL 1.5-3.0 Specimen slightly hemolyzed edvg=752) [id number] 20:58:00 Test Item Value Reference Range Comments PHOSPHORUS (BEAKER) (test 2.2 mg/dL 2.5-4.5 Specimen slightly hemolyzed cari=643) POCT-GLUCOSE [id number] 18:02:00 Test Item Value Reference Range Comments POC-GLUCOSE METER (BEAKER) 176 mg/dL 70-110 TESTED AT [facility] [address] [facility] (test lgyf=1452) [facility] [address] [id number] 16:46:00 Test Item Value Reference Range Comments MAGNESIUM (BEAKER) (test 2.1 mg/dL 1.5-3.0 Specimen slightly hemolyzed ogzv=021) [id number] 16:46:00 Test Item Value Reference Range Comments PHOSPHORUS (BEAKER) (test 2.1 mg/dL 2.5-4.5 Specimen slightly hemolyzed qohj=192) BASIC METABOLIC [id number] 16:46:00 Test Item Value Reference Range Comments SODIUM (BEAKER) (test 134 meq/L 135-148 pcwt=734) POTASSIUM (BEAKER) (test 4.4 meq/L 3.5-5.5 Specimen slightly irxi=015) hemolyzed CHLORIDE (BEAKER) (test 109 meq/L 98-106 uwhu=077) CO2 (BEAKER) (test 13 meq/L 20-31 osxl=918) BLOOD UREA NITROGEN 5 mg/dL 10-26 (BEAKER) (test mbyy=349) CREATININE (BEAKER) (test 0.79 mg/dL 0.50-1.20 Specimen slightly tlrb=905) hemolyzed GLUCOSE RANDOM (BEAKER) 177 mg/dL 70-110 (test oxmo=399) CALCIUM (BEAKER) (test 7.8 mg/dL 8.5-10.5 czbv=407) EGFR (BEAKER) (test 94 mL/min/1.73 sq m ESTIMATED GFR IS NOT pmwj=4663) ACCURATE CREATININE CLEARANCE IN PREDICTING GLOMERULAR FILTRATION RATE. ESTIMATED GFR IS NOT APPLICABLE FOR DIALYSIS PATIENTS. CALCIUM, [id number] 16:21:00 Test Item Value Reference Range Comments CALCIUM IONIZED (BEAKER) (test huvk=491) 1.13 mmol/L 1.12-1.27 PH, BLOOD (BEAKER) (test fvtj=7928) 7.30 Check serum Ionized Calcium level after 4 hours after IV Calcium replacement.POCT-GLUCOSE [id number] 16:12:00 Test Item Value Reference Range Comments POC-GLUCOSE METER (BEAKER) 191 mg/dL 70-110 TESTED AT [facility] [address] [facility] (test datn=0531) [facility] [address] POCT-GLUCOSE [id number] 15:20:00 Test Item Value Reference Range Comments POC-GLUCOSE METER (BEAKER) 181 mg/dL 70-110 TESTED AT [facility] [address] [facility] (test rbbz=6172) [facility] [address] POCT-GLUCOSE [id number] 14:15:00 Test Item Value Reference Range Comments POC-GLUCOSE METER (BEAKER) 169 mg/dL 70-110 TESTED AT [facility] [address] [facility] (test mqoa=7680) [facility] [address] BASIC METABOLIC [id number] 13:44:00 Test Item Value Reference Range Comments SODIUM (BEAKER) (test 137 meq/L 135-148 colo=795) POTASSIUM (BEAKER) (test 3.8 meq/L 3.5-5.5 hnkf=468) CHLORIDE (BEAKER) (test 112 meq/L 98-106 zxdd=601) CO2 (BEAKER) (test 13 meq/L 20-31 getj=702) BLOOD UREA NITROGEN 7 mg/dL - (BEAKER) (test kkvk=407) CREATININE (BEAKER) (test 0.78 mg/dL 0.50-1.20 yibt=500) GLUCOSE RANDOM (BEAKER) 141 mg/dL 70-110 (test ulcc=306) CALCIUM (BEAKER) (test 7.7 mg/dL 8.5-10.5 vayy=070) EGFR (BEAKER) (test 95 mL/min/1.73 sq m ESTIMATED GFR IS NOT mpbe=1927) ACCURATE CREATININE CLEARANCE IN PREDICTING GLOMERULAR FILTRATION RATE. ESTIMATED GFR IS NOT APPLICABLE FOR DIALYSIS PATIENTS. POCT-GLUCOSE [id number] 13:24:00 Test Item Value Reference Range Comments POC-GLUCOSE METER (BEAKER) 157 mg/dL 70-110 TESTED AT [facility] [address] [facility] (test agqs=4777) [facility] [address] POCT-GLUCOSE [id number] 12:34:00 Test Item Value Reference Range Comments POC-GLUCOSE METER (BEAKER) 131 mg/dL 70-110 TESTED AT [facility] [address] [facility] (test duuj=7338) [facility] [address] POCT-GLUCOSE [id number] 11:39:00 Test Item Value Reference Range Comments POC-GLUCOSE METER (BEAKER) 160 mg/dL 70-110 TESTED AT [facility] [address] [facility] (test qmfp=1984) [facility] [address] [id number] 11:13:00 Test Item Value Reference Range Comments PROCALCITONIN (BEAKER) (test nmxi=0827) < ng/mL <0.05 SEPSIS RISK (ng/mL)Low: 0.05-0.50Intermediate: 0.51-2.00High: & gt;=2.01POCT-GLUCOSE [id number] 10:40:00 Test Item Value Reference Range Comments POC-GLUCOSE METER (BEAKER) 202 mg/dL 70-110 TESTED AT [facility] [address] [facility] (test akou=1066) [facility] [address] [id number] 10:04:00 Test Item Value Reference Range Comments PHOSPHORUS (BEAKER) (test 1.4 mg/dL 2.5-4.5 Specimen slightly hemolyzed cqmo=882) BASIC METABOLIC [id number] 10:04:00 Test Item Value Reference Range Comments SODIUM (BEAKER) (test 138 meq/L 135-148 nrvn=200) POTASSIUM (BEAKER) (test 4.0 meq/L 3.5-5.5 Specimen slightly gshz=203) hemolyzed CHLORIDE (BEAKER) (test 113 meq/L 98-106 jfcq=652) CO2 (BEAKER) (test 11 meq/L 20-31 cotq=785) BLOOD UREA NITROGEN 9 mg/dL 10-26 (BEAKER) (test uhpn=565) CREATININE (BEAKER) (test 0.88 mg/dL 0.50-1.20 Specimen slightly ghdj=953) hemolyzed GLUCOSE RANDOM (BEAKER) 224 mg/dL 70-110 (test srre=919) CALCIUM (BEAKER) (test 7.9 mg/dL 8.5-10.5 qyvy=693) EGFR (BEAKER) (test 83 mL/min/1.73 sq m ESTIMATED GFR IS NOT ilke=1864) ACCURATE CREATININE CLEARANCE IN PREDICTING GLOMERULAR FILTRATION RATE. ESTIMATED GFR IS NOT APPLICABLE FOR DIALYSIS PATIENTS. [id number] 10:02:00 Test Item Value Reference Range Comments MAGNESIUM (BEAKER) (test 1.8 mg/dL 1.5-3.0 Specimen slightly hemolyzed civh=023) POCT-GLUCOSE [id number] 09:36:00 Test Item Value Reference Range Comments POC-GLUCOSE METER (BEAKER) 212 mg/dL 70-110 TESTED AT [facility] [address] [facility] (test eixw=6773) [facility] [address] POCT-GLUCOSE [id number] 08:43:00 Test Item Value Reference Range Comments POC-GLUCOSE METER (BEAKER) 268 mg/dL 70-110 TESTED AT [facility] [id number] [place] [address] (test cwxb=0589) [facility] [address] [id number] 07:47:00 Test Item Value Reference Range Comments POTASSIUM (BEAKER) (test oodf=263) 4.0 meq/L 3.5-5.5 If last glucose was less than 500, may do bedside glucose instead of serum glucose.[id number] 07:47:00 Test Item Value Reference Range Comments GLUCOSE RANDOM (BEAKER) (test jqom=360) 370 mg/dL 70-110 If last glucose was less than 500, may do bedside glucose instead of serum glucose.POCT-GLUCOSE [id number] 07:31:00 Test Item Value Reference Range Comments POC-GLUCOSE METER (BEAKER) 328 mg/dL 70-110 Notified VI ADVIS/TESTED AT [facility] (test axzg=4452) [address] [place] [address] POCT-GLUCOSE [id number] 07:31:00 Test Item Value Reference Range Comments POC-GLUCOSE METER (BEAKER) 414 mg/dL 70-110 TESTED AT [facility] [id number] [place] [address] (test eomm=1826) [place] [address] [id number] 06:57:00 Test Item Value Reference Range Comments POTASSIUM (BEAKER) (test vliu=772) 4.5 meq/L 3.5-5.5 [id number] 06:51:00 Test Item Value Reference Range Comments GLUCOSE RANDOM (BEAKER) (test mbud=176) 523 mg/dL 70-110 If last glucose was less than 500, may do bedside glucose instead of serum glucose.URINALYSIS W/ REFLEX URINE [id number] 06:29:00 Test Item Value Reference Range Comments COLOR (BEAKER) (test gglj=061) Colorless CLARITY (BEAKER) (test lemo=675) Hazy SPECIFIC GRAVITY UA (BEAKER) (test wgut=907) 1.022 1.001-1.035 PH UA (BEAKER) (test vhzs=760) 5.0 5.0-8.0 PROTEIN UA (BEAKER) (test qyra=687) Negative Negative GLUCOSE UA (BEAKER) (test wpbt=355) >500 mg/dL Negative KETONES UA (BEAKER) (test cwjb=312) 80 mg/dL Negative BILIRUBIN UA (BEAKER) (test iazc=540) Negative Negative BLOOD UA (BEAKER) (test hgev=547) Large Negative NITRITE UA (BEAKER) (test cnvo=296) Negative Negative LEUKOCYTE ESTERASE UA (BEAKER) (test ampg=646) Negative Negative UROBILINOGEN UA (BEAKER) (test vrkh=710) < mg/dL 0.2-1.0 RBC UA (BEAKER) (test hyau=478) 170 /HPF WBC UA (BEAKER) (test umln=848) 27 /HPF MUCUS (BEAKER) (test cotg=7138) Rare SOURCE(BEAKER) (test cala=3343) RAPID INFLUENZA A&B [id number] 06:13:00 Test Item Value Reference Range Comments RAPID INFLUENZA A AG (BEAKER) (test flxy=7133) Negative Negative RAPID INFLUENZA B AG (BEAKER) (test utbi=9621) Negative Negative SCREEN, [id number] 05:58:00 Test Item Value Reference Range Comments TEST URINE (BEAKER) (test njdp=391) Negative RAD, CHEST, 1 VIEW, NON [id number] 05:52:00Reason for exam:-> EMESISReason for exam:->BLOOD SUGAR PROBLEMShould this be performed at the bedside?->YesIs the patient ?->NoFINAL REPORT Comparison examination: 04/07/2017 No pneumothorax, focal pulmonary consolidation, or significant pleural effusion. Normal cardiomediastinal contours. Normal skeleton and soft tissues. Impression: No acute abnormality. Signed: Joesph Foy Verified Date/Time: 05/18/2017 05:52 :18 Reading Location: [facility] C013T Transitional Reading Room HEMOGLOBIN [id number] 05:49:00 Test Item Value Reference Range Comments HEMOGLOBIN A1C (BEAKER) (test zxnk=428) 13.2 % 4.3-6.1 BASIC METABOLIC [id number] 05:28:00 Test Item Value Reference Range Comments SODIUM (BEAKER) (test 132 meq/L 135-148 oihu=407) POTASSIUM (BEAKER) (test 4.4 meq/L 3.5-5.5 cvcy=465) CHLORIDE (BEAKER) (test 101 meq/L 98-106 jbvk=808) CO2 (BEAKER) (test 8 meq/L 20-31 wbhg=431) BLOOD UREA NITROGEN 12 mg/dL 10-26 (BEAKER) (test tuhd=523) CREATININE (BEAKER) (test 1.29 mg/dL 0.50-1.20 vejs=108) GLUCOSE RANDOM (BEAKER) 622 mg/dL 70-110 (test fsri=012) CALCIUM (BEAKER) (test 8.7 mg/dL 8.5-10.5 voiz=183) EGFR (BEAKER) (test 53 mL/min/1.73 sq m ESTIMATED GFR IS NOT jtku=0112) ACCURATE CREATININE CLEARANCE IN PREDICTING GLOMERULAR FILTRATION RATE. ESTIMATED GFR IS NOT APPLICABLE FOR DIALYSIS PATIENTS. If last glucose was less than 500, may do bedside glucose instead of serum glucose.HEPATIC FUNCTION [id number] 05:27:00 Test Item Value Reference Range Comments TOTAL PROTEIN (BEAKER) (test nwsv=137) 7.9 gm/dL 6.0-8.5 ALBUMIN (BEAKER) (test aibz=6472) 4.1 g/dL 3.5-5.0 BILIRUBIN TOTAL (BEAKER) (test ylfn=496) 0.4 mg/dL 0.1-1.3 BILIRUBIN DIRECT (BEAKER) (test ebwy=225) 0.2 mg/dL 0.0-0.5 ALKALINE PHOSPHATASE (BEAKER) (test lndp=722) 136 U/L 30-115 AST (SGOT) (BEAKER) (test yyjl=790) 11 U/L 5-40 ALT (SGPT) (BEAKER) (test efmt=788) 10 U/L 6-50 If last glucose was less than 500, may do bedside glucose instead of serum glucose.Specimen slightlylipemicBLOOD GAS, [id number] 05:04:00 Test Item Value Reference Range Comments PH VENOUS (BEAKER) (test xhnw=564) 7.17 7.32-7.42 PCO2 VENOUS (BEAKER) (test dahk=498) 30 mmHg 41-51 PO2 VENOUS (BEAKER) (test phur=738) 35 mmHg 25-40 O2 SATURATION VENOUS (BEAKER) (test bgmc=328) 53.6 % 40.0-70.0 HCO3 VENOUS (BEAKER) (test vnhg=999) 11 mmol/L 21-29 BASE EXCESS VENOUS (BEAKER) (test obwx=398) -16.5 mmol/L -2.0-3.0 PATIENT TEMPERATURE (BEAKER) (test qkuf=3575) 36.9 C FIO2 (BEAKER) (test jfoy=4908) 21.0 % KETONE, [id number] 05:03:00 Test Item Value Reference Range Comments KETONES, BLOOD (BEAKER) (test subd=5631) 5.8 mmol/L <0.4 CBC W/PLT COUNT & AUTO [id number] 05:02:00 Test Item Value Reference Range Comments WHITE BLOOD CELL COUNT (BEAKER) (test nnhs=026) 15.3 K/ L 4.0-10.0 RED BLOOD CELL COUNT (BEAKER) (test ymvt=999) 4.71 M/ L 4.00-5.00 HEMOGLOBIN (BEAKER) (test etwl=829) 13.5 GM/DL 12.0-15.0 HEMATOCRIT (BEAKER) (test ktlu=916) 40.9 % 36.0-45.0 MEAN CORPUSCULAR VOLUME (BEAKER) (test mbcn=725) 86.8 fL 82.0-99.0 MEAN CORPUSCULAR HEMOGLOBIN (BEAKER) (test 28.7 pg 27.0-33.0 tqmg=450) MEAN CORPUSCULAR HEMOGLOBIN CONC (BEAKER) (test 33.1 GM/DL 32.0-36.0 umyo=640) RED CELL DISTRIBUTION WIDTH (BEAKER) (test 12.3 % 12.0-15.0 zhks=973) PLATELET COUNT (BEAKER) (test ztjp=724) 382 K/CU MM 150-430 MEAN PLATELET VOLUME (BEAKER) (test hbim=670) 7.7 fL 6.5-10.5 NUCLEATED RED BLOOD CELLS (BEAKER) (test 0 /100 WBC 0-0 nrjh=610) NEUTROPHILS RELATIVE PERCENT (BEAKER) (test 73 % jzit=659) LYMPHOCYTES RELATIVE PERCENT (BEAKER) (test 21 % hpzc=218) MONOCYTES RELATIVE PERCENT (BEAKER) (test 5 % angk=166) EOSINOPHILS RELATIVE PERCENT (BEAKER) (test 1 % uyyy=487) BASOPHILS RELATIVE PERCENT (BEAKER) (test 0 % bgnd=968) NEUTROPHILS ABSOLUTE COUNT (BEAKER) (test 11.20 K/ L 1.80-8.00 pabp=949) LYMPHOCYTES ABSOLUTE COUNT (BEAKER) (test 3.30 K/ L 1.48-4.50 vwci=345) MONOCYTES ABSOLUTE COUNT (BEAKER) (test 0.70 K/ L 0.00-1.30 rgzi=242) EOSINOPHILS ABSOLUTE COUNT (BEAKER) (test 0.10 K/ L 0.00-0.50 fasm=603) BASOPHILS ABSOLUTE COUNT (BEAKER) (test 0.00 K/ L 0.00-0.20 wsxd=371) POCT-GLUCOSE [id number] 04:49:00 Test Item Value Reference Range Comments POC-GLUCOSE METER (BEAKER) > mg/dL 70-110 OUTSIDE MEASURING RANGETESTED AT (test rbwr=2400) [facility] [address] [facility] [address] BLOOD [id number] 00:00:00 Test Item Value Reference Range Comments CULTURE (BEAKER) (test qtqj=5069) No growth in 5 days BLOOD [id number] 00:00:00 Test Item Value Reference Range Comments CULTURE (BEAKER) (test mdbh=0596) No growth in 5 days URINE [id number] 15:21:00 Test Item Value Reference Range Comments CULTURE (BEAKER) (test ukcg=0342) >100,000 col/mL skin christophe POCT-GLUCOSE [id number] 14:37:00 Test Item Value Reference Range Comments POC-GLUCOSE METER (BEAKER) 326 mg/dL 70-110 TESTED AT [facility] [address] [facility] (test rvsu=1927) [facility] [address] POCT-GLUCOSE [id number] 13:26:00 Test Item Value Reference Range Comments POC-GLUCOSE METER (BEAKER) 331 mg/dL 70-110 TESTED AT [facility] [address] [facility] (test xdfn=2077) [facility] [address] CBC W/PLT COUNT & AUTO [id number] 11:34:00 Test Item Value Reference Range Comments WHITE BLOOD CELL COUNT (BEAKER) (test mxdy=183) 5.9 K/ L 3.5-10.5 RED BLOOD CELL COUNT (BEAKER) (test woij=536) 4.15 M/ L 3.93-5.22 HEMOGLOBIN (BEAKER) (test qwvl=234) 11.7 GM/DL 11.2-15.7 HEMATOCRIT (BEAKER) (test zuge=505) 34.9 % 34.1-44.9 MEAN CORPUSCULAR VOLUME (BEAKER) (test pdlz=486) 84.1 fL 79.4-94.8 MEAN CORPUSCULAR HEMOGLOBIN (BEAKER) (test 28.2 pg 25.6-32.2 nnur=269) MEAN CORPUSCULAR HEMOGLOBIN CONC (BEAKER) (test 33.5 GM/DL 32.2-35.5 grov=714) RED CELL DISTRIBUTION WIDTH (BEAKER) (test 12.8 % 11.7-14.4 avuq=654) PLATELET COUNT (BEAKER) (test xbal=337) 272 K/CU MM 150-450 MEAN PLATELET VOLUME (BEAKER) (test nekb=233) 9.5 fL 9.4-12.3 NUCLEATED RED BLOOD CELLS (BEAKER) (test 0 /100 WBC 0-0 yayt=297) NEUTROPHILS RELATIVE PERCENT (BEAKER) (test 44 % zaeb=605) LYMPHOCYTES RELATIVE PERCENT (BEAKER) (test 47 % ymtd=219) MONOCYTES RELATIVE PERCENT (BEAKER) (test 6 % onxh=342) EOSINOPHILS RELATIVE PERCENT (BEAKER) (test 2 % drnf=657) BASOPHILS RELATIVE PERCENT (BEAKER) (test 1 % vhes=360) NEUTROPHILS ABSOLUTE COUNT (BEAKER) (test 2.61 K/ L 1.56-6.13 bixb=376) LYMPHOCYTES ABSOLUTE COUNT (BEAKER) (test 2.79 K/ L 1.18-3.74 agxb=147) MONOCYTES ABSOLUTE COUNT (BEAKER) (test 0.33 K/ L 0.24-0.36 kyyi=526) EOSINOPHILS ABSOLUTE COUNT (BEAKER) (test 0.10 K/ L 0.04-0.36 qdse=550) BASOPHILS ABSOLUTE COUNT (BEAKER) (test 0.04 K/ L 0.01-0.08 zkvx=448) IMMATURE GRANULOCYTES-RELATIVE PERCENT (BEAKER) 0 % 0-1 (test gtla=6076) (MANUAL DIFFERENTIAL)2017-04-09 11:34:00 Test Item Value Reference Range Comments TOTAL COUNTED (BEAKER) (test judv=6770) POCT-GLUCOSE [id number] 11:18:00 Test Item Value Reference Range Comments POC-GLUCOSE METER (BEAKER) 349 mg/dL 70-110 TESTED AT [address] (test fefy=0919) [place] [id number] POCT-GLUCOSE [id number] 09:34:00 Test Item Value Reference Range Comments POC-GLUCOSE METER (BEAKER) 61 mg/dL 70-110 TESTED AT [address] (test hmvd=8103) [facility] [address] POCT-GLUCOSE [id number] 08:48:00 Test Item Value Reference Range Comments POC-GLUCOSE METER (BEAKER) 79 mg/dL 70-110 TESTED AT [address] (test imhn=6527) [facility] [address] BASIC METABOLIC [id number] 06:12:00 Test Item Value Reference Range Comments SODIUM (BEAKER) (test 135 meq/L 136-145 puer=646) POTASSIUM (BEAKER) (test 4.7 meq/L 3.5-5.1 efow=315) CHLORIDE (BEAKER) (test 105 meq/L 98-107 hwjf=436) CO2 (BEAKER) (test 22 meq/L 22-29 ntnd=367) BLOOD UREA NITROGEN 11 mg/dL 7-21 (BEAKER) (test ztrr=009) CREATININE (BEAKER) (test 0.83 mg/dL 0.57-1.25 butr=487) GLUCOSE RANDOM (BEAKER) 387 mg/dL 70-105 (test zchj=939) CALCIUM (BEAKER) (test 8.7 mg/dL 8.4-10.2 dveh=975) EGFR (BEAKER) (test 89 mL/min/1.73 sq m ESTIMATED GFR IS NOT ciwl=7093) ACCURATE CREATININE CLEARANCE IN PREDICTING GLOMERULAR FILTRATION RATE. ESTIMATED GFR IS NOT APPLICABLE FOR DIALYSIS PATIENTS. KETONE, [id number] 05:43:00 Test Item Value Reference Range Comments KETONES, BLOOD (BEAKER) (test dgdl=2929) 0.1 mmol/L <0.4 POCT-GLUCOSE [id number] 05:39:00 Test Item Value Reference Range Comments POC-GLUCOSE METER (BEAKER) 366 mg/dL 70-110 TESTED AT [address] (test omhv=3619) [facility] [address] POCT-GLUCOSE [id number] 22:32:00 Test Item Value Reference Range Comments POC-GLUCOSE METER (BEAKER) 302 mg/dL 70-110 TESTED AT [address] (test jima=4368) [place] [id number] POCT-GLUCOSE [id number] 19:15:00 Test Item Value Reference Range Comments POC-GLUCOSE METER (BEAKER) 273 mg/dL 70-110 TESTED AT [address] (test mfqh=6198) [place] [id number] POCT-GLUCOSE [id number] 17:49:00 Test Item Value Reference Range Comments POC-GLUCOSE METER (BEAKER) 174 mg/dL 70-110 TESTED AT [address] (test guet=3663) [place] [id number] POCT-GLUCOSE [id number] 17:02:00 Test Item Value Reference Range Comments POC-GLUCOSE METER (BEAKER) 171 mg/dL 70-110 TESTED AT [address] (test fzip=6836) [facility] [address] POCT-GLUCOSE [id number] 15:17:00 Test Item Value Reference Range Comments POC-GLUCOSE METER (BEAKER) 135 mg/dL 70-110 TESTED AT [address] (test gmth=3117) [place] [id number] POCT-GLUCOSE [id number] 13:10:00 Test Item Value Reference Range Comments POC-GLUCOSE METER (BEAKER) 61 mg/dL 70-110 TESTED AT [address] (test jeaf=7585) [place] [id number] POCT-GLUCOSE [id number] 11:21:00 Test Item Value Reference Range Comments POC-GLUCOSE METER (BEAKER) 57 mg/dL 70-110 Notified VI DAVIS/TESTED AT [facility] (test jpvv=0662) [address] [facility] [address] POCT-GLUCOSE [id number] 08:02:00 Test Item Value Reference Range Comments POC-GLUCOSE METER (BEAKER) 68 mg/dL 70-110 Notified VI DAVIS/TESTED AT [facility] (test unfx=8434) [address] [facility] [address] CBC W/PLT COUNT & AUTO [id number] 08:02:00 Test Item Value Reference Range Comments WHITE BLOOD CELL COUNT (BEAKER) (test amij=031) 6.6 K/ L 3.5-10.5 RED BLOOD CELL COUNT (BEAKER) (test svzr=590) 3.97 M/ L 3.93-5.22 HEMOGLOBIN (BEAKER) (test wmlg=026) 11.2 GM/DL 11.2-15.7 HEMATOCRIT (BEAKER) (test okhy=103) 33.2 % 34.1-44.9 MEAN CORPUSCULAR VOLUME (BEAKER) (test fslp=121) 83.6 fL 79.4-94.8 MEAN CORPUSCULAR HEMOGLOBIN (BEAKER) (test 28.2 pg 25.6-32.2 gzbm=428) MEAN CORPUSCULAR HEMOGLOBIN CONC (BEAKER) (test 33.7 GM/DL 32.2-35.5 hteg=793) RED CELL DISTRIBUTION WIDTH (BEAKER) (test 12.7 % 11.7-14.4 koof=802) PLATELET COUNT (BEAKER) (test eovk=100) 231 K/CU MM 150-450 MEAN PLATELET VOLUME (BEAKER) (test ggin=935) 9.5 fL 9.4-12.3 NUCLEATED RED BLOOD CELLS (BEAKER) (test 0 /100 WBC 0-0 nfql=978) NEUTROPHILS RELATIVE PERCENT (BEAKER) (test 33 % ebnb=272) LYMPHOCYTES RELATIVE PERCENT (BEAKER) (test 58 % yhvq=008) MONOCYTES RELATIVE PERCENT (BEAKER) (test 6 % cuci=781) EOSINOPHILS RELATIVE PERCENT (BEAKER) (test 2 % rlma=816) BASOPHILS RELATIVE PERCENT (BEAKER) (test 1 % ilva=536) NEUTROPHILS ABSOLUTE COUNT (BEAKER) (test 2.20 K/ L 1.56-6.13 ibfd=612) LYMPHOCYTES ABSOLUTE COUNT (BEAKER) (test 3.84 K/ L 1.18-3.74 rjoj=150) MONOCYTES ABSOLUTE COUNT (BEAKER) (test 0.37 K/ L 0.24-0.36 ksyp=660) EOSINOPHILS ABSOLUTE COUNT (BEAKER) (test 0.13 K/ L 0.04-0.36 jszm=365) BASOPHILS ABSOLUTE COUNT (BEAKER) (test 0.04 K/ L 0.01-0.08 jito=682) IMMATURE GRANULOCYTES-RELATIVE PERCENT (BEAKER) 0 % 0-1 (test acpv=6522) POCT-GLUCOSE [id number] 06:58:00 Test Item Value Reference Range Comments POC-GLUCOSE METER (BEAKER) 95 mg/dL 70-110 TESTED AT [address] (test sive=7220) [place] [id number] POCT-GLUCOSE [id number] 06:17:00 Test Item Value Reference Range Comments POC-GLUCOSE METER (BEAKER) 150 mg/dL 70-110 TESTED AT [address] (test zwbf=2105) [place] [id number] POCT-GLUCOSE [id number] 05:18:00 Test Item Value Reference Range Comments POC-GLUCOSE METER (BEAKER) 101 mg/dL 70-110 TESTED AT [address] (test ouhc=2537) [place] [id number] POCT-GLUCOSE [id number] 05:07:00 Test Item Value Reference Range Comments POC-GLUCOSE METER (BEAKER) 119 mg/dL 70-110 TESTED AT [address] (test ugdn=4631) [place] [id number] BASIC METABOLIC [id number] 04:52:00 Test Item Value Reference Range Comments SODIUM (BEAKER) (test 140 meq/L 136-145 syjg=881) POTASSIUM (BEAKER) (test 3.8 meq/L 3.5-5.1 pcce=705) CHLORIDE (BEAKER) (test 109 meq/L 98-107 crih=777) CO2 (BEAKER) (test 21 meq/L 22-29 dobp=207) BLOOD UREA NITROGEN 7 mg/dL 7-21 (BEAKER) (test idqv=062) CREATININE (BEAKER) (test 0.70 mg/dL 0.57-1.25 qmgq=131) GLUCOSE RANDOM (BEAKER) 208 mg/dL 70-105 (test agkr=803) CALCIUM (BEAKER) (test 8.4 mg/dL 8.4-10.2 hiff=118) EGFR (BEAKER) (test 108 mL/min/1.73 sq m ESTIMATED GFR IS NOT fere=1818) ACCURATE CREATININE CLEARANCE IN PREDICTING GLOMERULAR FILTRATION RATE. ESTIMATED GFR IS NOT APPLICABLE FOR DIALYSIS PATIENTS. POCT-GLUCOSE [id number] 04:05:00 Test Item Value Reference Range Comments POC-GLUCOSE METER (BEAKER) 48 mg/dL 70-110 TESTED AT [address] (test yobq=0998) [place] [id number] POCT-GLUCOSE [id number] 02:30:00 Test Item Value Reference Range Comments POC-GLUCOSE METER (BEAKER) 181 mg/dL 70-110 TESTED AT [address] (test wcwg=6079) [place] [id number] POCT-GLUCOSE [id number] 02:10:00 Test Item Value Reference Range Comments POC-GLUCOSE METER (BEAKER) 37 mg/dL 70-110 Will Repeat Test/TESTED AT (test gqhl=0372) [address] [address] POCT-GLUCOSE [id number] 01:07:00 Test Item Value Reference Range Comments POC-GLUCOSE METER (BEAKER) 87 mg/dL 70-110 TESTED AT [address] (test pjvv=4645) [facility] [address] BASIC METABOLIC [id number] 00:44:00 Test Item Value Reference Range Comments SODIUM (BEAKER) (test 142 meq/L 136-145 bgxb=299) POTASSIUM (BEAKER) (test 3.6 meq/L 3.5-5.1 uiaa=232) CHLORIDE (BEAKER) (test 112 meq/L 98-107 nsct=934) CO2 (BEAKER) (test 22 meq/L 22-29 whit=367) BLOOD UREA NITROGEN 8 mg/dL 7-21 (BEAKER) (test otpb=569) CREATININE (BEAKER) (test 0.83 mg/dL 0.57-1.25 vfwv=106) GLUCOSE RANDOM (BEAKER) 109 mg/dL 70-105 (test ypqe=447) CALCIUM (BEAKER) (test 8.6 mg/dL 8.4-10.2 kbpk=573) EGFR (BEAKER) (test 89 mL/min/1.73 sq m ESTIMATED GFR IS NOT asph=3477) ACCURATE CREATININE CLEARANCE IN PREDICTING GLOMERULAR FILTRATION RATE. ESTIMATED GFR IS NOT APPLICABLE FOR DIALYSIS PATIENTS. POCT-GLUCOSE [id number] 00:30:00 Test Item Value Reference Range Comments POC-GLUCOSE METER (BEAKER) 96 mg/dL 70-110 TESTED AT [address] (test ehxd=6295) [place] [id number] POCT-GLUCOSE [id number] 23:54:00 Test Item Value Reference Range Comments POC-GLUCOSE METER (BEAKER) 91 mg/dL 70-110 TESTED AT [address] (test wsmu=3375) [place] [id number] POCT-GLUCOSE [id number] 23:12:00 Test Item Value Reference Range Comments POC-GLUCOSE METER (BEAKER) 48 mg/dL 70-110 TESTED AT [address] (test tgei=8753) [place] [id number] POCT-GLUCOSE [id number] 21:58:00 Test Item Value Reference Range Comments POC-GLUCOSE METER (BEAKER) 94 mg/dL 70-110 TESTED AT [address] (test veki=1211) [facility] [address] BASIC METABOLIC [id number] 21:08:00 Test Item Value Reference Range Comments SODIUM (BEAKER) (test 137 meq/L 136-145 xilp=568) POTASSIUM (BEAKER) (test 3.6 meq/L 3.5-5.1 jgok=638) CHLORIDE (BEAKER) (test 109 meq/L 98-107 dvja=529) CO2 (BEAKER) (test 18 meq/L 22-29 ucyo=419) BLOOD UREA NITROGEN 6 mg/dL 7-21 (BEAKER) (test gqmt=059) CREATININE (BEAKER) (test 0.93 mg/dL 0.57-1.25 tafm=273) GLUCOSE RANDOM (BEAKER) 200 mg/dL 70-105 (test kmjr=224) CALCIUM (BEAKER) (test 7.8 mg/dL 8.4-10.2 ywyp=090) EGFR (BEAKER) (test 78 mL/min/1.73 sq m ESTIMATED GFR IS NOT agsq=7598) ACCURATE CREATININE CLEARANCE IN PREDICTING GLOMERULAR FILTRATION RATE. ESTIMATED GFR IS NOT APPLICABLE FOR DIALYSIS PATIENTS. POCT-GLUCOSE [id number] 20:57:00 Test Item Value Reference Range Comments POC-GLUCOSE METER (BEAKER) 165 mg/dL 70-110 TESTED AT [facility] [address] [facility] (test qqwr=4813) [place] [address] [id number] 20:55:00 Test Item Value Reference Range Comments POTASSIUM (BEAKER) (test sxzm=599) 3.6 meq/L 3.5-5.1 URINALYSIS W/ [id number] 20:40:00 Test Item Value Reference Range Comments COLOR (BEAKER) (test ulkf=241) Light Yellow CLARITY (BEAKER) (test qxmg=564) Clear SPECIFIC GRAVITY UA (BEAKER) (test baji=518) 1.009 1.001-1.035 PH UA (BEAKER) (test jhfl=065) 5.5 5.0-8.0 PROTEIN UA (BEAKER) (test aucd=495) Negative Negative GLUCOSE UA (BEAKER) (test qjsa=482) >1000 mg/dL Negative KETONES UA (BEAKER) (test isdx=450) 60 mg/dL Negative BILIRUBIN UA (BEAKER) (test fauu=714) Negative Negative BLOOD UA (BEAKER) (test htkg=395) Moderate Negative NITRITE UA (BEAKER) (test dudc=367) Negative Negative LEUKOCYTE ESTERASE UA (BEAKER) (test vvyl=894) Negative Negative UROBILINOGEN UA (BEAKER) (test oeqt=687) 0.2 mg/dL 0.2-1.0 RBC UA (BEAKER) (test lsdg=129) 0 /HPF WBC UA (BEAKER) (test fvnq=341) 1 /HPF SQUAMOUS EPITHELIAL (BEAKER) (test vagx=684) 2 /HPF SOURCE(BEAKER) (test basd=8906) POCT-GLUCOSE [id number] 19:59:00 Test Item Value Reference Range Comments POC-GLUCOSE METER (BEAKER) 282 mg/dL 70-110 TESTED AT [place] [id number] [facility] (test khan=9733) [place] [id number] POCT-GLUCOSE [id number] 19:02:00 Test Item Value Reference Range Comments POC-GLUCOSE METER (BEAKER) 374 mg/dL 70-110 Notified VI DAVIS/TESTED AT [facility] (test dkwi=9789) [address] [facility] [address] CBC W/PLT COUNT & AUTO [id number] 18:56:00 Test Item Value Reference Range Comments WHITE BLOOD CELL COUNT (BEAKER) (test qqda=710) 8.3 K/ L 3.5-10.5 RED BLOOD CELL COUNT (BEAKER) (test yvyl=545) 4.18 M/ L 3.93-5.22 HEMOGLOBIN (BEAKER) (test ucxw=240) 11.9 GM/DL 11.2-15.7 HEMATOCRIT (BEAKER) (test agzf=634) 35.0 % 34.1-44.9 MEAN CORPUSCULAR VOLUME (BEAKER) (test qvwv=275) 83.7 fL 79.4-94.8 MEAN CORPUSCULAR HEMOGLOBIN (BEAKER) (test 28.5 pg 25.6-32.2 aklj=571) MEAN CORPUSCULAR HEMOGLOBIN CONC (BEAKER) (test 34.0 GM/DL 32.2-35.5 ukcy=785) RED CELL DISTRIBUTION WIDTH (BEAKER) (test 12.7 % 11.7-14.4 enuu=983) PLATELET COUNT (BEAKER) (test kgri=601) 307 K/CU MM 150-450 MEAN PLATELET VOLUME (BEAKER) (test gnhz=652) 9.5 fL 9.4-12.3 NUCLEATED RED BLOOD CELLS (BEAKER) (test 0 /100 WBC 0-0 mnkc=009) NEUTROPHILS RELATIVE PERCENT (BEAKER) (test 42 % wpzw=999) LYMPHOCYTES RELATIVE PERCENT (BEAKER) (test 51 % ojlv=355) MONOCYTES RELATIVE PERCENT (BEAKER) (test 5 % fdsj=607) EOSINOPHILS RELATIVE PERCENT (BEAKER) (test 1 % epcd=402) BASOPHILS RELATIVE PERCENT (BEAKER) (test 1 % uybu=316) NEUTROPHILS ABSOLUTE COUNT (BEAKER) (test 3.52 K/ L 1.56-6.13 sccx=946) LYMPHOCYTES ABSOLUTE COUNT (BEAKER) (test 4.24 K/ L 1.18-3.74 myzq=186) MONOCYTES ABSOLUTE COUNT (BEAKER) (test 0.39 K/ L 0.24-0.36 qzxb=010) EOSINOPHILS ABSOLUTE COUNT (BEAKER) (test 0.09 K/ L 0.04-0.36 mdxz=372) BASOPHILS ABSOLUTE COUNT (BEAKER) (test 0.05 K/ L 0.01-0.08 kafd=849) IMMATURE GRANULOCYTES-RELATIVE PERCENT (BEAKER) 0 % 0-1 (test niac=2422) POCT-GLUCOSE [id number] 18:03:00 Test Item Value Reference Range Comments POC-GLUCOSE METER (BEAKER) 294 mg/dL 70-110 TESTED AT [facility] [address] [facility] (test covh=0768) [facility] [address] HEMOGLOBIN [id number] 17:45:00 Test Item Value Reference Range Comments HEMOGLOBIN A1C (BEAKER) (test pzuc=524) 12.6 % 4.3-6.1 RAD, CHEST, 1 VIEW, NON [id number] 17:20:00Reason for exam:->sobShould this be performed at [...] No acute cardiopulmonary abnormality. Signed: Salomon Shelton Verified Date/Time: 04/07/2017 17:20:50 Reading Location: [address] Radiology Reading Room TSH/FREE T4 IF [id number] 17: 04:00 Test Item Value Reference Range Comments THYROID STIMULATING HORMONE (BEAKER) (test 0.95 uIU/mL 0.35-4.94 wneg=413) TROPONIN [id number] 16:51:00 Test Item Value Reference Range Comments TROPONIN I (BEAKER) (test tata=545) < ng/mL 0.00-0.03 Effective 06/20/2014: Reference Range [...] renalfailure, acidosis, acute neurological disease, and persistent tachyarrhythmia.[id number] 16:45:00 Test Item Value Reference Range Comments LIPASE (BEAKER) (test nqbv=016) 33 U/L 8-78 [id number] 16:45:00 Test Item Value Reference Range Comments AMYLASE (BEAKER) (test fmcp=970) 66 U/L 25-125 BASIC METABOLIC [id number] 16:45:00 Test Item Value Reference Range Comments SODIUM (BEAKER) (test 139 meq/L 136-145 klfx=103) POTASSIUM (BEAKER) (test 3.8 meq/L 3.5-5.1 xnkr=511) CHLORIDE (BEAKER) (test 109 meq/L 98-107 ovgc=791) CO2 (BEAKER) (test 23 meq/L 22-29 tdgj=025) BLOOD UREA NITROGEN 8 mg/dL 7-21 (BEAKER) (test gzmt=733) CREATININE (BEAKER) (test 0.72 mg/dL 0.57-1.25 srsu=209) GLUCOSE RANDOM (BEAKER) 125 mg/dL 70-105 (test fywr=071) CALCIUM (BEAKER) (test 8.4 mg/dL 8.4-10.2 rlgt=708) EGFR (BEAKER) (test 104 mL/min/1.73 sq m ESTIMATED GFR IS NOT klkx=4576) ACCURATE CREATININE CLEARANCE IN PREDICTING GLOMERULAR FILTRATION RATE. ESTIMATED GFR IS NOT APPLICABLE FOR DIALYSIS PATIENTS. LACTIC ACID, VENOUS, WHOLE [id number] 16:45:00 Test Item Value Reference Range Comments LACTATE BLOOD VENOUS (2) (BEAKER) (test 1.1 mmol/L 0.5-2.2 yuzq=5702) Effective 12/05/2015: Units/Reference Range ChangeNew: 0.5-2.2 mmol/L Previous: 5 -20 mg/dLKETONE, [id number] 16:41:00 Test Item Value Reference Range Comments KETONES, BLOOD (BEAKER) (test reau=8558) 2.1 mmol/L <0.4 BLOOD GAS, [id number] 16:27:00 Test Item Value Reference Range Comments PH VENOUS (BEAKER) (test ybea=843) 7.36 7.32-7.42 PCO2 VENOUS (BEAKER) (test ygok=415) 41 mmHg 41-51 PO2 VENOUS (BEAKER) (test gdng=038) 18 mmHg 25-40 O2 SATURATION VENOUS (BEAKER) (test jofm=068) 26.4 % 40.0-70.0 HCO3 VENOUS (BEAKER) (test wjbn=968) 23 mmol/L 21-29 BASE EXCESS VENOUS (BEAKER) (test bnap=858) -2.5 mmol/L -2.0-3.0 PATIENT TEMPERATURE (BEAKER) (test wqmw=3200) 37.0 C POCT-GLUCOSE [id number] 16:20:00 Test Item Value Reference Range Comments POC-GLUCOSE METER (BEAKER) 156 mg/dL 70-110 TESTED AT [address] (test wnry=0273) [place] [address] POCT-GLUCOSE [id number] 15:28:00 Test Item Value Reference Range Comments POC-GLUCOSE METER (BEAKER) 101 mg/dL 70-110 TESTED AT [address] (test dqeo=7246) [place] [address]
[2018-08-17] MEDS ORDERED: NA CHLORIDE 0.9% 1,000 ML ONE ×2 (11:49→14:41)
[2018-08-17] MEDS ORDERED: ONDANSETRON 4 MG/2 ML VIAL ONE (11:49)
[2018-08-17 12:10] LABS: Absolute Lymphocytes (CBC) 2.2 K/uL (0.7-4.9); Absolute Monocytes 0.4 K/uL (0.1-1.3); Absolute Neutrophil 3.6 K/uL (1.8-8.0); Basophils % 0.5 % (0-1.3); Eosinophils % 0.4 % (0-4.4); Lymphocytes % 34.9 % (15.3-44.8); MPV 7.8 fL (7.6-11.3); Monocytes % 6.2 % (3.3-12.3); RBC Red Blood Cell Count 4.96 M/uL (3.86-4.86)
[2018-08-17 12:25] LABS: ALT/SGPT 14 U/L (12-78); AST/SGOT 9 U/L (15-37); Albumin 3.5 g/dL (3.4-5.0); Alkaline Phosphatase 92 U/L (45-117); BUN Blood Urea Nitrogen 11 mg/dL (7-18); Bicarbonate 19 mmol/L (21-32); Bilirubin Direct 0.1 mg/dL (0-0.2); Bilirubin Total 0.3 mg/dL (0.2-1.0); Glucose Level 249 mg/dL (74-106); Lipase 85 U/L (73-393); Magnesium 1.7 mg/dL (1.8-2.4); Potassium 3.6 mmol/L (3.5-5.1); Protein, Total 7.2 g/dL (6.4-8.2); Sodium Level 138 mmol/L (136-145)
[2018-08-17 14:03] LABS: Urine Blood 2+ (NEG); Urine Glucose 2+ (NEG); Urine Protein NEGATIVE (NEG); Urine pH 5.5 (5.0-7.0)
[2018-08-17] MEDS ORDERED: INSULIN -REGULAR HUMAN 50 UNIT/0.5 ML ML ONE (14:40)
[2018-08-17] MEDS ORDERED: MAGNESIUM SULFATE 1 gm IVPB 1 GM/100 ML BAG IV ONE (14:41)
--- NOTE | 2018-08-17 15:30 | ER ---
Nurse's Notes [facility] Name: Salome Santacruz Age: 18 yrs Sex: Female : 2000 Arrival Date: 08/17/2018 Time: 10:59 Bed 7 Private MD: Diagnosis: Hyperglycemia, unspecified Presentation: 08/17 11:02 Presenting complaint: Patient states: I have hx of diabetes, im on my period and every sg time i menstruate i go into DKA, have been testing my urine, large ketones reports, pt reports bodyaches, abd pain, and nausea that started this morning. Transition of care: patient was not received from another setting of care. Onset of symptoms was August 17, 2018. Risk Assessment: Do you want to hurt yourself or someone else? Patient reports no desire to harm self or others. Initial Sepsis Screen: Does the patient meet any 2 criteria? HR > 90 bpm. Does the patient have a suspected source of infection? No. Patient's initial sepsis screen is negative. Care prior to arrival: None. 11:02 Method Of Arrival: Ambulatory sg 11:02 Acuity: BRIAN 2 sg Triage Assessment: 11:05 General: Appears distressed, uncomfortable, slender, Behavior is cooperative, bp appropriate for age, anxious. 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 - Social history:: Smoking status: Patient/guardian denies using tobacco. - Ebola Screening: : Patient negative for fever greater than or equal to 101.5 degrees Fahrenheit, and additional compatible Ebola Virus Disease symptoms Patient denies exposure to infectious person Patient denies travel to an Ebola-affected area in the 21 days before illness onset No symptoms or risks identified at this time. Screenin:10 Abuse screen: Denies threats or abuse. Denies injuries from another. Nutritional bp screening: No deficits noted. Tuberculosis screening: No symptoms or risk factors identified. Fall Risk None identified. Assessment: 11:10 General: Appears distressed, uncomfortable, slender, Behavior is cooperative, bp appropriate for age, anxious. Pain: Complains of pain in GENERALIZED. Neuro: Level of Consciousness is awake, alert, obeys commands, Oriented to person, place, time, situation, Appropriate for age. Cardiovascular: Rhythm is sinus tachycardia. Respiratory: Airway is patent Respiratory effort is even, unlabored, Respiratory pattern is regular, symmetrical. GI: Reports nausea. : No signs and/or symptoms were reported regarding the genitourinary system. EENT: No deficits noted. Derm: No deficits noted. Musculoskeletal: Circulation, motion, and sensation intact. Range of motion: intact in all extremities. 12:30 Reassessment: UOP PENDING, VS STABLE ON MONITOR. bp 14:38 Reassessment: IVF INFUSING, DISPO PENDING BGL RE-EVAL. bp 15:46 Reassessment: PT D/C HOME AMBULATORY, DX WITH HYPERGLYCEMIA. bp Vital Signs: 11:03 BP 105 / 66; Pulse 122; Resp 20; Temp 98.2; Pulse Ox 100% ; Height 5 ft. 4 in. (162.56 sg cm); Pain 7/10; 11:11 Weight 65.4 kg (M); sg 12:30 BP 97 / 61; Pulse 92; Resp 16; Pulse Ox 98% ; bp 14:38 BP 101 / 60; Pulse 91; Resp 14; Pulse Ox 97% ; bp 15:50 BP 108 / 68; Pulse 86; Resp 14; Pulse Ox 100% ; bp 11:11 Body Mass Index 24.75 (65.40 kg, 162.56 cm) sg ED Course: 10:59 Patient arrived in ED. mr 11:03 Triage completed. sg 11:06 Dre Brothers PA is PHCP. cp 11:06 Sameer Altamirano MD is Attending Physician. cp 11:07 Joshua Lew, VI is Primary Nurse. bp 11:10 Patient has correct armband on for positive identification. Bed in low position. Call bp light in reach. Side rails up X2. Child being held by parent. 11:30 Inserted saline lock: 20 gauge in right forearm, using aseptic technique. Blood bp collected. 15:48 No provider procedures requiring assistance completed. IV discontinued, intact, bp bleeding controlled, No redness/swelling at site. Pressure dressing applied. 15:50 Arm band placed on. bp Administered Medications: 11:45 Drug: NS 0.9% 1000 ml Route: IV; Rate: 1 bolus; Site: right forearm; bp 12:45 Follow up: IV Status: Completed infusion; IV Intake: 1000ml bp 11:45 Drug: Zofran 4 mg Route: IVP; Site: right forearm; bp 12:55 Follow up: Response: Nausea is decreased bp 14:35 Drug: NovoLIN R 5 units {Co-Signature: ca1 (Elisha Pendleton RN).} Route: Sub-Q; Site: right bp upper arm; 15:44 Follow up: Response: No adverse reaction; Marked relief of symptoms bp 14:36 Drug: NS 0.9% 1000 ml Route: IV; Rate: 1 bolus; Site: right forearm; bp 15:45 Follow up: IV Status: Completed infusion bp 14:36 Drug: Magnesium Sulfate 1 grams Route: IVPB; Infused Over: 1 hrs; Site: right forearm; bp 15:30 Follow up: IV Status: Completed infusion; IV Intake: 1000ml bp Intake: 12:45 IV: 1000ml; Total: 1000ml. bp 15:30 IV: 1000ml; Total: 2000ml. bp Outcome: 15:30 Discharge ordered by . cp 15:48 Discharged to home ambulatory, with family. bp 15:48 Condition: stable 15:48 Discharge instructions given to patient, Instructed on discharge instructions, follow up and referral plans. Demonstrated understanding of instructions, follow-up care. 15:52 Patient left the ED. bp Signatures: Ezra Bermeo RN RN sg Rivera, Mary mr Dre Brothers, EJ PA cp Joshua Lew, VI RN bp Elisha Pendleton RN ca1
--- NOTE | 2018-08-17 15:31 | EDPHYS ---
Physician Documentation [facility] Name: Salome Santacruz Age: 18 yrs Sex: Female : 2000 Arrival Date: 08/17/2018 Time: 10:59 Bed 7 Private MD: ED Physician Sameer Altamirano HPI: 08/17 11:45 This 18 yrs old Female presents to ER via Ambulatory with complaints of cp Diabetic. 11:45 The patient or guardian reports hyperglycemia, that was potentially precipitated by cp menstrual cycle. 11:45 Onset: The symptoms/episode began/occurred today. Associated signs and symptoms: cp Pertinent positives: diarrhea, nausea, Pertinent negatives: vomiting. Current symptoms: In the emergency department the patient's symptoms are unchanged from the initial presentation, despite home interventions. The patient has experienced similar episodes in the past, chronically. [employer]: 11:03 LMP 08/17/2018 sg Historical: - Allergies: 11:04 Midol; sg 11:04 Phenergan; sg - Home Meds: 15:49 Humalog 100 unit/mL Sub-Q soln 20 unit before meals [Active]; hydroxyzine HCl 50 mg bp Oral tab 2 tabs nightly [Active]; Tresiba FlexTouch U-100 100 unit/mL (3 mL) subcutaneous inpn 40 unit nightly [Active]; - PMHx: 11:04 Anxiety; Depression; Diabetes - IDDM; sg - PSHx: 11:04 ; sg - Immunization history:: Adult Immunizations up to date. - Social history:: Smoking status: Patient/guardian denies using tobacco. - Ebola Screening: : Patient negative for fever greater than or equal to 101.5 degrees Fahrenheit, and additional compatible Ebola Virus Disease symptoms Patient denies exposure to infectious person Patient denies travel to an Ebola-affected area in the 21 days before illness onset No symptoms or risks identified at this time. ROS: 12:00 Constitutional: Negative for body aches, chills, fever, poor PO intake. cp 12:00 Eyes: Negative for injury, pain, redness, and discharge. cp 12:00 ENT: Negative for drainage from ear(s), ear pain, sore throat, difficulty swallowing, difficulty handling secretions. 12:00 Cardiovascular: Negative for chest pain, edema, palpitations. 12:00 Respiratory: Negative for cough, shortness of breath, wheezing. 12:00 Abdomen/GI: Positive for nausea, Negative for abdominal pain, vomiting, diarrhea, constipation, black/tarry stool, rectal bleeding. 12:00 Back: Negative for pain at rest, pain with movement. 12:00 : Negative for urinary symptoms. 12:00 Skin: Negative for cellulitis, rash. 12:00 Neuro: Negative for altered mental status, headache, weakness. 12:00 All other systems are negative. Exam: 12:05 Constitutional: The patient appears in no acute distress, alert, awake, non-toxic, well cp developed, well nourished. 12:05 Head/Face: Normocephalic, atraumatic. Eyes: Pupils equal round and reactive to light, cp extra-ocular motions intact. Lids and lashes normal. Conjunctiva and sclera are non-icteric and not injected. Cornea within normal limits. Periorbital areas with no swelling, redness, or edema. ENT: Nares patent. No nasal discharge, no septal abnormalities noted. Tympanic membranes are normal and external auditory canals are clear. Oropharynx with no redness, swelling, or masses, exudates, or evidence of obstruction, uvula midline. Mucous membranes moist. Chest/axilla: Normal chest wall appearance and motion. Nontender with no deformity. No lesions are appreciated. 12:05 Cardiovascular: Rate: tachycardic, Rhythm: regular, Heart sounds: murmur, not appreciated, Edema: is not appreciated. 12:05 Respiratory: the patient does not display signs of respiratory distress, Respirations: normal, no use of accessory muscles, no retractions, no splinting, no tachypnea, labored breathing, is not present, Breath sounds: are clear throughout, no decreased breath sounds, no stridor, no wheezing. 12:05 Abdomen/GI: Inspection: abdomen appears normal, Bowel sounds: active, all quadrants, Palpation: abdomen is soft and non-tender, in all quadrants, rebound tenderness, is not appreciated, voluntary guarding, is not appreciated, involuntary guarding, is not appreciated. 12:05 Back: CVA tenderness, is absent. 12:05 Skin: cellulitis, is not appreciated, no rash present. 12:05 Neuro: Orientation: to person, place \T\ time. Mentation: is normal, Cerebellar function: is grossly normal, Motor: moves all fours, strength is normal, Sensation: is normal. Vital Signs: 11:03 BP 105 / 66; Pulse 122; Resp 20; Temp 98.2; Pulse Ox 100% ; Height 5 ft. 4 in. (162.56 sg cm); Pain 7/10; 11:11 Weight 65.4 kg (M); sg 12:30 BP 97 / 61; Pulse 92; Resp 16; Pulse Ox 98% ; bp 14:38 BP 101 / 60; Pulse 91; Resp 14; Pulse Ox 97% ; bp 15:50 BP 108 / 68; Pulse 86; Resp 14; Pulse Ox 100% ; bp 11:11 Body Mass Index 24.75 (65.40 kg, 162.56 cm) sg MDM: 11:26 Patient medically screened. cp 12:00 Differential diagnosis: DKA, hyperglycemia, UTI, sepsis. cp 15:30 Data reviewed: vital signs, nurses notes, lab test result(s), and as a result, I will cp discharge patient. 15:30 Counseling: I had a detailed discussion with the patient and/or guardian regarding: the cp historical points, exam findings, and any diagnostic results supporting the discharge/admit diagnosis, lab results, to return to the emergency department if symptoms worsen or persist or if there are any questions or concerns that arise at home. Response to treatment: the patient's symptoms have markedly improved after treatment, and as a result, I will discharge patient. 08/17 11:36 Order name: Basic Metabolic Panel; Complete Time: 14: cp 08/17 11:36 Order name: CBC with Diff; Complete Time: 14: cp 08/17 11:36 Order name: Creatinine for Radiology; Complete Time: 14: cp 08/17 11:36 Order name: Hepatic Function; Complete Time: 14:06 cp 08/17 11:36 Order name: Lipase; Complete Time: 14:06 cp 08/17 11:36 Order name: Ketone, Serum; Complete Time: 14: cp 08/17 11:36 Order name: Magnesium; Complete Time: 14: cp 08/17 11:54 Order name: Glucose, Ancillary Testing; Complete Time: 14:06 EDMS 08/17 13:31 Order name: Urine Dipstick--Ancillary (enter results); Complete Time: 14:06 bd 08/17 13:31 Order name: Urine --Ancillary (enter results); Complete Time: 14:06 bd 08/17 11:06 Order name: Accucheck Blood Glucose; Complete Time: 12:04 cp 08/17 11:07 Order name: Urine Dipstick-Ancillary (obtain specimen); Complete Time: 13:29 cp 08/17 11:07 Order name: Urine Test (obtain specimen); Complete Time: 13:29 cp 08/17 11:36 Order name: IV Saline Lock; Complete Time: 12:03 cp 08/17 11:36 Order name: Labs collected and sent; Complete Time: 12:03 cp Administered Medications: 11:45 Drug: NS 0.9% 1000 ml Route: IV; Rate: 1 bolus; Site: right forearm; bp 12:45 Follow up: IV Status: Completed infusion; IV Intake: 1000ml bp 11:45 Drug: Zofran 4 mg Route: IVP; Site: right forearm; bp 12:55 Follow up: Response: Nausea is decreased bp 14:35 Drug: NovoLIN R 5 units {Co-Signature: ca1 (Elisha Pendleton RN).} Route: Sub-Q; Site: right bp upper arm; 15:44 Follow up: Response: No adverse reaction; Marked relief of symptoms bp 14:36 Drug: NS 0.9% 1000 ml Route: IV; Rate: 1 bolus; Site: right forearm; bp 15:45 Follow up: IV Status: Completed infusion bp 14:36 Drug: Magnesium Sulfate 1 grams Route: IVPB; Infused Over: 1 hrs; Site: right forearm; bp 15:30 Follow up: IV Status: Completed infusion; IV Intake: 1000ml bp Disposition: 08/17/18 15:30 Discharged to Home. Impression: Hyperglycemia, unspecified. - Condition is Stable. - Discharge Instructions: Hyperglycemia, Blood Glucose Monitoring, Adult. - Work release form, Medication Reconciliation Form, Thank You Letter, Antibiotic Education, Prescription Opioid Use form. - Follow up: Private Physician; When: 1 - 2 days; Reason: Recheck today's complaints. - Problem is an acute exacerbation. - Symptoms have improved. Addendum: 08/22/2018 03:30 Co-signature as Attending Physician, Sameer Altamirano MD Available for consultation at p s1 all times . Signatures: Dispatcher [employer] Ezra Sandoval RN RN sg Page, Dre, PA PA cp Joshua Lew, RN RN bp Sameer Altamirano MD MD ps1 Elisha Pendleton RN ca1 Corrections: (The following items were deleted from the chart) 08/17 15:52 15:30 08/17/2018 15:30 Discharged to Home. Impression: Hyperglycemia, unspecified. bp Condition is Stable. Forms are Medication Reconciliation Form, Thank You Letter, Antibiotic Education, Prescription Opioid Use. Follow up: Private Physician; When: 1 - 2 days; Reason: Recheck today's complaints. Problem is an acute exacerbation. Symptoms have improved. cp
[2018-08-17 16:52] VITALS: BP 108/68; O2SAT 100
[2018-08-17 20:32] VITALS: TEMP 98.2
== END 2018-08-17 15:52 | disposition home or self-care (01) ==
LOC: ER 10:56
DX: E11.65 Type 2 diabetes mellitus with hyperglycemia (principal); Z79.4 Long term (current) use of insulin
CPT/HCPCS: 36415; 80048; 80076; 81003; 81025; 82010; 82962; 83690; 83735; 85025; 96361; 96365; 96372; 96375; 99284; J2405; J3475; J7030

== ENCOUNTER 2019-02-02 23:46 | Emergency (ER) | payer SELFPAY ==
--- OUTSIDE RECORDS SUMMARY | 2019-02-02 23:49 | XMS REPORT | Clinical Summary ---
:2000 Author Organization [facility] Address [address] [place] [address] Care Team Providers Name Role Phone Sohail Xiong MD Primary Care Provider Allergies Active Allergy Reactions Severity Noted Date Comments Latex Rash Low 04/07/2017 Acetaminophen-Pamabrom Rash Low 04/07/2017 Bumps in mouth Onion Hives 05/18/2017 Promethazine Anxiety Low 04/07/2017 Severe anxiety attacks Tree Nut 06/17/2017 Medications Medication Sig Dispensed Refills Start End Date Status Date insulin regular (HUMULIN If VO=[id number], give 1unit 10 mL 3 Active R,NOVOLIN R) 100 unit/mL If EA=373-305, give 2units 7 injection If OB=534-329, give 4units If YO=773-600, give 6units If NM=990-302, give 8units. medroxyPROGESTERone Inject 150 mg 0 [...] Not on file Results Not on fileafter 02/01/2018 Insurance Payer Benefit Plan / Group Subscriber ID Type Phone Address OTHER-COMMERCIAL GENERIC COMMERCIAL xxxxxxxxx Advance Directives For more information, please contact:[address] [phone] Code Status Date Activated Date Inactivated Comments Full Code 06/17/2017 10:54 AM 06/19/2017 2:40 PM This code status was determined by: Patient Full Code 05/18/2017 7:25 AM 05/19/2017 7:18 PM This code status was determined by: Patient Full Code 04/07/2017 3:28 PM 04/09/2017 7:53 PM This code status was determined by: Patient
--- OUTSIDE RECORDS SUMMARY | 2019-02-02 23:52 | XMS REPORT ---
:2000 [facility] Address [address] [place] [id number] Care Team Providers Name Role Phone ARLYNANTONIETA [...] of the pelvis was performed on the [employer].Comparison study: No prior study.FINDINGS:Uterus: 8.2 [...] (BEAKER) (test 230 mg/dL 70-110 TESTED AT [facility] [address] [facility] [address] ryxh=0517) [facility] [address] POCT-GLUCOSE [id number] 08:32:00 Test Item Value Reference Range Comments POC-GLUCOSE METER (BEAKER) 70 mg/dL 70-110 TESTED AT [facility] [address] [facility] (test xqpo=6643) WAY [facility] [address] POCT-GLUCOSE [id number] 05:13:00 Test Item Value Reference Range Comments POC-GLUCOSE METER (BEAKER) 152 mg/dL 70-110 TESTED AT [facility] [address] [facility] (test xttw=8525) WAY [facility] [address] POCT-GLUCOSE [id number] 04:14:00 Test Item Value Reference Range Comments POC-GLUCOSE METER (BEAKER) 55 mg/dL 70-110 TESTED AT [facility] [address] [facility] (test ngmt=5166) WAY [facility] [address] POCT-GLUCOSE [id number] 20:37:00 Test Item Value Reference Range Comments POC-GLUCOSE METER (BEAKER) 204 mg/dL 70-110 TESTED AT [facility] [address] [facility] (test sjcg=7670) [facility] [address] POCT-GLUCOSE [id number] 19:01:00 Test Item Value Reference Range Comments POC-GLUCOSE METER (BEAKER) 88 mg/dL 70-110 TESTED AT [facility] [address] [facility] (test ovzh=9758) WAY [facility] [address] POCT-GLUCOSE [id number] 17:27:00 Test Item Value Reference Range Comments POC-GLUCOSE METER (BEAKER) 253 mg/dL 70-110 TESTED AT [facility] [address] [facility] (test rdgk=3737) WAY [facility] [address] POCT-GLUCOSE [id number] 15:36:00 Test Item Value Reference Range Comments POC-GLUCOSE METER (BEAKER) 366 mg/dL 70-110 TESTED AT [facility] [address] [facility] (test aahr=7941) WAY [facility] [address] POCT-GLUCOSE [id number] 11:51:00 Test Item Value Reference Range Comments POC-GLUCOSE METER (BEAKER) 194 mg/dL 70-110 TESTED AT [facility] [address] [facility] (test dxaz=7528) [facility] [address] POCT-GLUCOSE [id number] 10:19:00 Test Item Value Reference Range Comments POC-GLUCOSE METER (BEAKER) 147 mg/dL 70-110 TESTED AT [address] (test cvws=1990) [facility] [address] BASIC METABOLIC [id number] 09:23:00 Test Item Value Reference Range Comments SODIUM (BEAKER) (test 135 meq/L 135-148 opkx=214) POTASSIUM (BEAKER) (test 3.5 meq/L 3.5-5.5 zmty=273) CHLORIDE (BEAKER) (test 108 meq/L 98-106 hdhe=791) CO2 (BEAKER) (test 20 meq/L 20-31 wcfg=023) BLOOD UREA NITROGEN 8 mg/dL 10-26 (BEAKER) (test nazg=640) CREATININE (BEAKER) (test 0.90 mg/dL 0.50-1.20 mqdq=948) GLUCOSE RANDOM (BEAKER) 164 mg/dL 70-110 (test ynjy=357) CALCIUM (BEAKER) (test 8.6 mg/dL 8.5-10.5 admp=948) EGFR (BEAKER) (test 81 mL/min/1.73 sq m ESTIMATED GFR IS NOT cmbo=2443) ACCURATE CREATININE CLEARANCE IN PREDICTING GLOMERULAR FILTRATION RATE. ESTIMATED GFR IS NOT APPLICABLE FOR DIALYSIS PATIENTS. POCT-GLUCOSE [id number] 08:02:00 Test Item Value Reference Range Comments POC-GLUCOSE METER (BEAKER) 161 mg/dL 70-110 TESTED AT [address] (test wwfr=2849) [facility] [address] POCT-GLUCOSE [id number] 07:03:00 Test Item Value Reference Range Comments POC-GLUCOSE METER (BEAKER) 151 mg/dL 70-110 TESTED AT [address] (test auff=5139) [facility] [address] POCT-GLUCOSE [id number] 05:08:00 Test Item Value Reference Range Comments POC-GLUCOSE METER (BEAKER) 158 mg/dL 70-110 TESTED AT [address] (test prnj=8338) [facility] [address] BASIC METABOLIC [id number] 04:51:00 Test Item Value Reference Range Comments SODIUM (BEAKER) (test 137 meq/L 135-148 pthm=271) POTASSIUM (BEAKER) (test 3.3 meq/L 3.5-5.5 wtdk=409) CHLORIDE (BEAKER) (test 111 meq/L 98-106 tuok=385) CO2 (BEAKER) (test 15 meq/L 20-31 ohfj=008) BLOOD UREA NITROGEN 9 mg/dL 10-26 (BEAKER) (test clkb=955) CREATININE (BEAKER) (test 0.84 mg/dL 0.50-1.20 zxjn=359) GLUCOSE RANDOM (BEAKER) 160 mg/dL 70-110 (test ralm=764) CALCIUM (BEAKER) (test 8.3 mg/dL 8.5-10.5 ijxx=897) EGFR (BEAKER) (test 87 mL/min/1.73 sq m ESTIMATED GFR IS NOT ytlx=2325) ACCURATE CREATININE CLEARANCE IN PREDICTING GLOMERULAR FILTRATION RATE. ESTIMATED GFR IS NOT APPLICABLE FOR DIALYSIS PATIENTS. POCT-GLUCOSE [id number] 03:03:00 Test Item Value Reference Range Comments POC-GLUCOSE METER (BEAKER) 153 mg/dL 70-110 TESTED AT [facility] [address] [facility] (test iyty=2806) [facility] [address] POCT-GLUCOSE [id number] 02:09:00 Test Item Value Reference Range Comments POC-GLUCOSE METER (BEAKER) 159 mg/dL 70-110 TESTED AT [facility] [address] [facility] (test dshh=8435) [facility] [address] POCT-GLUCOSE [id number] 01:08:00 Test Item Value Reference Range Comments POC-GLUCOSE METER (BEAKER) 174 mg/dL 70-110 TESTED AT [facility] [address] [facility] (test tnig=7678) [facility] [address] BASIC METABOLIC [id number] 00:38:00 Test Item Value Reference Range Comments SODIUM (BEAKER) (test 137 meq/L 135-148 uxnb=134) POTASSIUM (BEAKER) (test 3.8 meq/L 3.5-5.5 mxov=370) CHLORIDE (BEAKER) (test 111 meq/L 98-106 gryj=319) CO2 (BEAKER) (test 12 meq/L 20-31 mhyq=820) BLOOD UREA NITROGEN 9 mg/dL 10-26 (BEAKER) (test mdbk=123) CREATININE (BEAKER) (test 0.91 mg/dL 0.50-1.20 ylln=167) GLUCOSE RANDOM (BEAKER) 173 mg/dL 70-110 (test lvkq=436) CALCIUM (BEAKER) (test 8.4 mg/dL 8.5-10.5 dvlh=637) EGFR (BEAKER) (test 80 mL/min/1.73 sq m ESTIMATED GFR IS NOT qvlp=0017) ACCURATE CREATININE CLEARANCE IN PREDICTING GLOMERULAR FILTRATION RATE. ESTIMATED GFR IS NOT APPLICABLE FOR DIALYSIS PATIENTS. POCT-GLUCOSE [id number] 00:37:00 Test Item Value Reference Range Comments POC-GLUCOSE METER (BEAKER) 198 mg/dL 70-110 TESTED AT [facility] [address] [facility] (test ucqy=5834) WAY [facility] [address] POCT-GLUCOSE [id number] 00:14:00 Test Item Value Reference Range Comments POC-GLUCOSE METER (BEAKER) 162 mg/dL 70-110 TESTED AT [facility] [id number] [place] [address] (test iepx=2841) [facility] [address] POCT-GLUCOSE [id number] 23:39:00 Test Item Value Reference Range Comments POC-GLUCOSE METER (BEAKER) 149 mg/dL 70-110 TESTED AT [facility] [id number] [place] [address] (test gmqj=3446) [facility] [address] POCT-GLUCOSE [id number] 23:10:00 Test Item Value Reference Range Comments POC-GLUCOSE METER (BEAKER) 134 mg/dL 70-110 TESTED AT [facility] [id number] [place] [address] (test yjzz=0647) [facility] [address] POCT-GLUCOSE [id number] 22:41:00 Test Item Value Reference Range Comments POC-GLUCOSE METER (BEAKER) 112 mg/dL 70-110 TESTED AT [facility] [id number] [place] [address] (test qnwt=6039) [facility] [address] POCT-GLUCOSE [id number] 21:59:00 Test Item Value Reference Range Comments POC-GLUCOSE METER (BEAKER) 95 mg/dL 70-110 TESTED AT [facility] [address] [place] [address] (test ouht=5050) [facility] [address] POCT-GLUCOSE [id number] 21:39:00 Test Item Value Reference Range Comments POC-GLUCOSE METER (BEAKER) 110 mg/dL 70-110 TESTED AT [facility] [id number] [place] [address] (test upsq=7605) WAY [facility] [address] POCT-GLUCOSE [id number] 21:07:00 Test Item Value Reference Range Comments POC-GLUCOSE METER (BEAKER) 114 mg/dL 70-110 TESTED AT [facility] [id number] [place] [address] (test bbrz=6165) [place] [address] BASIC METABOLIC [id number] 20:47:00 Test Item Value Reference Range Comments SODIUM (BEAKER) (test 139 meq/L 135-148 jycm=966) POTASSIUM (BEAKER) (test 3.7 meq/L 3.5-5.5 gawh=749) CHLORIDE (BEAKER) (test 112 meq/L 98-106 exlr=211) CO2 (BEAKER) (test 12 meq/L 20-31 jrwt=027) BLOOD UREA NITROGEN 9 mg/dL 10-26 (BEAKER) (test ywqn=624) CREATININE (BEAKER) (test 1.03 mg/dL 0.50-1.20 qnru=215) GLUCOSE RANDOM (BEAKER) 162 mg/dL 70-110 (test kneu=983) CALCIUM (BEAKER) (test 8.6 mg/dL 8.5-10.5 dsrm=089) EGFR (BEAKER) (test 69 mL/min/1.73 sq m ESTIMATED GFR IS NOT kjsi=3478) ACCURATE CREATININE CLEARANCE IN PREDICTING GLOMERULAR FILTRATION RATE. ESTIMATED GFR IS NOT APPLICABLE FOR DIALYSIS PATIENTS. POCT-GLUCOSE [id number] 20:17:00 Test Item Value Reference Range Comments POC-GLUCOSE METER (BEAKER) 176 mg/dL 70-110 TESTED AT [facility] [id number] [place] [address] (test lerf=0027) WAY [facility] [address] [id number] 19:09:00 Test Item Value Reference Range Comments GLUCOSE RANDOM (BEAKER) (test kpqt=537) 230 mg/dL 70-110 If last glucose was less than 500, may do bedside glucose instead of serum glucose.POCT-GLUCOSE [id number] 18:53:00 Test Item Value Reference Range Comments POC-GLUCOSE METER (BEAKER) 212 mg/dL 70-110 TESTED AT [facility] [address] [facility] (test ykuc=5475) [place] [address] POCT-GLUCOSE [id number] 17:14:00 Test Item Value Reference Range Comments POC-GLUCOSE METER (BEAKER) 145 mg/dL 70-110 TESTED AT [facility] [address] [facility] (test izfo=6177) WAY [facility] [address] BASIC METABOLIC [id number] 16:51:00 Test Item Value Reference Range Comments SODIUM (BEAKER) (test 140 meq/L 135-148 seep=251) POTASSIUM (BEAKER) (test 3.9 meq/L 3.5-5.5 fbbt=773) CHLORIDE (BEAKER) (test 114 meq/L 98-106 kdro=525) CO2 (BEAKER) (test 14 meq/L 20-31 vvfg=539) BLOOD UREA NITROGEN 10 mg/dL 10-26 (BEAKER) (test huqt=990) CREATININE (BEAKER) (test 0.94 mg/dL 0.50-1.20 qsjk=920) GLUCOSE RANDOM (BEAKER) 126 mg/dL 70-110 (test uaxt=175) CALCIUM (BEAKER) (test 8.4 mg/dL 8.5-10.5 ytho=118) EGFR (BEAKER) (test 77 mL/min/1.73 sq m ESTIMATED GFR IS NOT zwlv=8580) ACCURATE CREATININE CLEARANCE IN PREDICTING GLOMERULAR FILTRATION RATE. ESTIMATED GFR IS NOT APPLICABLE FOR DIALYSIS PATIENTS. If last glucose was less than 500, may do bedside glucose instead of serum glucose.[id number] 16:47:00 Test Item Value Reference Range Comments GLUCOSE RANDOM (BEAKER) (test cfbp=302) 126 mg/dL 70-110 If last glucose was less than 500, may do bedside glucose instead of serum glucose.POCT-GLUCOSE [id number] 16:04:00 Test Item Value Reference Range Comments POC-GLUCOSE METER (BEAKER) 119 mg/dL 70-110 TESTED AT [facility] [address] [facility] (test bwax=0266) WAY [facility] [address] [id number] 14:30:00 Test Item Value Reference Range Comments POTASSIUM (BEAKER) (test ymnt=453) 3.9 meq/L 3.5-5.5 If last glucose was less than 500, may do bedside glucose instead of serum glucose.[id number] 14:30:00 Test Item Value Reference Range Comments GLUCOSE RANDOM (BEAKER) (test fjaw=216) 190 mg/dL 70-110 If last glucose was less than 500, may do bedside glucose instead of serum glucose.POCT-GLUCOSE [id number] 14:05:00 Test Item Value Reference Range Comments POC-GLUCOSE METER (BEAKER) 194 mg/dL 70-110 TESTED AT [facility] [address] [facility] (test bnxj=5699) [facility] [address] POCT-GLUCOSE [id number] 13:15:00 Test Item Value Reference Range Comments POC-GLUCOSE METER (BEAKER) 229 mg/dL 70-110 TESTED AT [facility] [address] [facility] (test oyzh=7075) [facility] [address] BASIC METABOLIC [id number] 12:44:00 Test Item Value Reference Range Comments SODIUM (BEAKER) (test 136 meq/L 135-148 wkwg=035) POTASSIUM (BEAKER) (test 4.0 meq/L 3.5-5.5 ovme=937) CHLORIDE (BEAKER) (test 111 meq/L 98-106 aroj=802) CO2 (BEAKER) (test 12 meq/L 20-31 jrls=824) BLOOD UREA NITROGEN 12 mg/dL 10-26 (BEAKER) (test fbiu=645) CREATININE (BEAKER) (test 0.99 mg/dL 0.50-1.20 kcng=389) GLUCOSE RANDOM (BEAKER) 258 mg/dL 70-110 (test qddj=619) CALCIUM (BEAKER) (test 8.1 mg/dL 8.5-10.5 vqlt=103) EGFR (BEAKER) (test 72 mL/min/1.73 sq m ESTIMATED GFR IS NOT vyqa=3305) ACCURATE CREATININE CLEARANCE IN PREDICTING GLOMERULAR FILTRATION RATE. ESTIMATED GFR IS NOT APPLICABLE FOR DIALYSIS PATIENTS. If last glucose was less than 500, may do bedside glucose instead of serum glucose.[id number] 12:43:00 Test Item Value Reference Range Comments GLUCOSE RANDOM (BEAKER) (test fgkp=764) 258 mg/dL 70-110 If last glucose was less than 500, may do bedside glucose instead of serum glucose.POCT-GLUCOSE [id number] 12:03:00 Test Item Value Reference Range Comments POC-GLUCOSE METER (BEAKER) 238 mg/dL 70-110 TESTED AT [facility] [address] [facility] (test nktr=3885) [facility] [address] POCT-GLUCOSE [id number] 11:05:00 Test Item Value Reference Range Comments POC-GLUCOSE METER (BEAKER) 261 mg/dL 70-110 TESTED AT [facility] [address] [facility] (test bqun=8713) [facility] [address] HEMOGLOBIN [id number] 10:07:00 Test Item Value Reference Range Comments HEMOGLOBIN A1C (BEAKER) (test gksy=302) > % 4.3-6.1 [id number] 10:00:00 Test Item Value Reference Range Comments GLUCOSE RANDOM (BEAKER) (test xngl=912) 441 mg/dL 70-110 If last glucose was less than 500, may do bedside glucose instead of serum glucose.[id number] 09:55:00 Test Item Value Reference Range Comments POTASSIUM (BEAKER) (test zpaz=333) 4.1 meq/L 3.5-5.5 If last glucose was less than 500, may do bedside glucose instead of serum glucose.POCT-GLUCOSE [id number] 09:18:00 Test Item Value Reference Range Comments POC-GLUCOSE METER (BEAKER) > mg/dL 70-110 OUTSIDE MEASURING RANGETESTED AT (test ljmy=3802) [facility] [address] [facility] [address] [id number] 09:15:00 Test Item Value Reference Range Comments GLUCOSE RANDOM (BEAKER) (test vhxu=556) 585 mg/dL 70-110 If last glucose was less than 500, may do bedside glucose instead of serum glucose.COMPREHENSIVE METABOLIC [id number] 08:30:00 Test Item Value Reference Range Comments TOTAL PROTEIN (BEAKER) 8.2 gm/dL 6.0-8.5 (test cqwy=189) ALBUMIN (BEAKER) (test 4.5 g/dL 3.5-5.0 tkdz=6856) ALKALINE PHOSPHATASE 135 U/L 30-115 (BEAKER) (test slmm=898) BILIRUBIN TOTAL (BEAKER) 0.3 mg/dL 0.1-1.3 (test tnck=336) SODIUM (BEAKER) (test 130 meq/L 135-148 dzsd=472) POTASSIUM (BEAKER) (test 4.6 meq/L 3.5-5.5 pdnd=912) CHLORIDE (BEAKER) (test 96 meq/L 98-106 allk=373) CO2 (BEAKER) (test 10 meq/L 20-31 cisl=067) BLOOD UREA NITROGEN 16 mg/dL 10-26 (BEAKER) (test atlv=906) CREATININE (BEAKER) (test 1.49 mg/dL 0.50-1.20 vpse=212) GLUCOSE RANDOM (BEAKER) 637 mg/dL 70-110 (test baws=252) CALCIUM (BEAKER) (test 9.5 mg/dL 8.5-10.5 sdzm=992) AST (SGOT) (BEAKER) (test 12 U/L 5-40 vurh=767) ALT (SGPT) (BEAKER) (test 14 U/L 6-50 rdnu=045) EGFR (BEAKER) (test 45 mL/min/1.73 sq m ESTIMATED GFR IS NOT nokb=3271) ACCURATE CREATININE CLEARANCE IN PREDICTING GLOMERULAR FILTRATION RATE. ESTIMATED GFR IS NOT APPLICABLE FOR DIALYSIS PATIENTS. CBC W/PLT COUNT & AUTO [id number] 08:29:00 Test Item Value Reference Range Comments WHITE BLOOD CELL COUNT (BEAKER) (test lwpv=109) 7.7 K/ L 4.0-10.0 RED BLOOD CELL COUNT (BEAKER) (test jphd=220) 5.18 M/ L 4.00-5.00 HEMOGLOBIN (BEAKER) (test rxxa=796) 14.6 GM/DL 12.0-15.0 HEMATOCRIT (BEAKER) (test ecrl=619) 43.9 % 36.0-45.0 MEAN CORPUSCULAR VOLUME (BEAKER) (test qlkz=423) 84.8 fL 82.0-99.0 MEAN CORPUSCULAR HEMOGLOBIN (BEAKER) (test 28.1 pg 27.0-33.0 fwow=229) MEAN CORPUSCULAR HEMOGLOBIN CONC (BEAKER) (test 33.1 GM/DL 32.0-36.0 bhbw=683) RED CELL DISTRIBUTION WIDTH (BEAKER) (test 12.3 % 12.0-15.0 qwcr=221) PLATELET COUNT (BEAKER) (test kygt=613) 421 K/CU MM 150-430 MEAN PLATELET VOLUME (BEAKER) (test nlrf=819) 8.0 fL 6.5-10.5 NUCLEATED RED BLOOD CELLS (BEAKER) (test 0 /100 WBC 0-0 yxyh=207) NEUTROPHILS RELATIVE PERCENT (BEAKER) (test 50 % hwpq=019) LYMPHOCYTES RELATIVE PERCENT (BEAKER) (test 45 % jbtm=768) MONOCYTES RELATIVE PERCENT (BEAKER) (test 5 % cgok=112) EOSINOPHILS RELATIVE PERCENT (BEAKER) (test 1 % hkjz=140) BASOPHILS RELATIVE PERCENT (BEAKER) (test 1 % xpsq=330) NEUTROPHILS ABSOLUTE COUNT (BEAKER) (test 3.80 K/ L 1.80-8.00 hkxo=134) LYMPHOCYTES ABSOLUTE COUNT (BEAKER) (test 3.40 K/ L 1.48-4.50 nwod=912) MONOCYTES ABSOLUTE COUNT (BEAKER) (test 0.40 K/ L 0.00-1.30 wzih=380) EOSINOPHILS ABSOLUTE COUNT (BEAKER) (test 0.10 K/ L 0.00-0.50 bvqj=870) BASOPHILS ABSOLUTE COUNT (BEAKER) (test 0.00 K/ L 0.00-0.20 kxwt=906) [id number] 08:25:00 Test Item Value Reference Range Comments PHOSPHORUS (BEAKER) (test urnc=130) 4.0 mg/dL 2.5-4.5 [id number] 08:25:00 Test Item Value Reference Range Comments MAGNESIUM (BEAKER) (test cggt=820) 2.0 mg/dL 1.5-3.0 SCREEN, [id number] 08:16:00 Test Item Value Reference Range Comments TEST URINE (BEAKER) (test guge=131) Negative URINALYSIS W/ [id number] 08:16:00 Test Item Value Reference Range Comments COLOR (BEAKER) (test jaed=397) Colorless CLARITY (BEAKER) (test jfox=683) Clear SPECIFIC GRAVITY UA (BEAKER) (test frkn=459) 1.025 1.001-1.035 PH UA (BEAKER) (test jfji=017) 5.0 5.0-8.0 PROTEIN UA (BEAKER) (test gctu=199) Negative Negative GLUCOSE UA (BEAKER) (test tqta=405) >500 mg/dL Negative KETONES UA (BEAKER) (test hilc=009) 80 mg/dL Negative BILIRUBIN UA (BEAKER) (test ixxw=001) Negative Negative BLOOD UA (BEAKER) (test xudf=066) Negative Negative NITRITE UA (BEAKER) (test ksjm=875) Negative Negative LEUKOCYTE ESTERASE UA (BEAKER) (test ptzh=703) Negative Negative UROBILINOGEN UA (BEAKER) (test brvw=734) < mg/dL 0.2-1.0 RBC UA (BEAKER) (test xybz=650) 0 /HPF WBC UA (BEAKER) (test pkrb=164) < /HPF MUCUS (BEAKER) (test tjkp=4283) Rare SOURCE(BEAKER) (test oywv=3480) KETONE, [id number] 08:09:00 Test Item Value Reference Range Comments KETONES, BLOOD (BEAKER) (test thmf=7079) 6.1 mmol/L <0.4 PH, [id number] 08:08:00 Test Item Value Reference Range Comments PH VENOUS (BEAKER) (test pnsl=491) 7.18 7.32-7.42 BLOOD [id number] 13:00:00 Test Item Value Reference Range Comments CULTURE (BEAKER) (test lsaz=9759) No growth in 5 days BLOOD [id number] 13:00:00 Test Item Value Reference Range Comments CULTURE (BEAKER) (test ksjh=9052) No growth in 5 days POCT-GLUCOSE [id number] 17:12:00 Test Item Value Reference Range Comments POC-GLUCOSE METER (BEAKER) 136 mg/dL 70-110 TESTED AT [facility] [address] [facility] (test fntn=9356) WAY [facility] [address] POCT-GLUCOSE [id number] 16:37:00 Test Item Value Reference Range Comments POC-GLUCOSE METER (BEAKER) 45 mg/dL 70-110 TESTED AT [facility] [address] [facility] (test cuxw=8147) WAY [facility] [address] POCT-GLUCOSE [id number] 11:32:00 Test Item Value Reference Range Comments POC-GLUCOSE METER (BEAKER) 98 mg/dL 70-110 TESTED AT [facility] [address] [facility] (test tmoh=2763) WAY [facility] [address] POCT-GLUCOSE [id number] 06:45:00 Test Item Value Reference Range Comments POC-GLUCOSE METER (BEAKER) 85 mg/dL 70-110 TESTED AT [facility] [address] [facility] (test rpgs=1965) [facility] [address] [id number] 06:25:00 Test Item Value Reference Range Comments PHOSPHORUS (BEAKER) (test hije=790) 2.4 mg/dL 2.5-4.5 [id number] 06:25:00 Test Item Value Reference Range Comments MAGNESIUM (BEAKER) (test oumh=504) 2.4 mg/dL 1.5-3.0 BASIC METABOLIC [id number] 06:25:00 Test Item Value Reference Range Comments SODIUM (BEAKER) (test 138 meq/L 135-148 aibt=454) POTASSIUM (BEAKER) (test 3.9 meq/L 3.5-5.5 qjhb=927) CHLORIDE (BEAKER) (test 110 meq/L 98-106 jtqv=349) CO2 (BEAKER) (test 19 meq/L 20-31 mjnk=176) BLOOD UREA NITROGEN 3 mg/dL 10-26 (BEAKER) (test erak=843) CREATININE (BEAKER) (test 0.79 mg/dL 0.50-1.20 vqnh=886) GLUCOSE RANDOM (BEAKER) 104 mg/dL 70-110 (test iooi=020) CALCIUM (BEAKER) (test 8.6 mg/dL 8.5-10.5 cofj=698) EGFR (BEAKER) (test 94 mL/min/1.73 sq m ESTIMATED GFR IS NOT douo=9852) ACCURATE CREATININE CLEARANCE IN PREDICTING GLOMERULAR FILTRATION RATE. ESTIMATED GFR IS NOT APPLICABLE FOR DIALYSIS PATIENTS. CBC W/PLT COUNT & AUTO [id number] 05:58:00 Test Item Value Reference Range Comments WHITE BLOOD CELL COUNT (BEAKER) (test mkrb=713) 9.2 K/ L 4.0-10.0 RED BLOOD CELL COUNT (BEAKER) (test byho=700) 4.36 M/ L 4.00-5.00 HEMOGLOBIN (BEAKER) (test qdqc=957) 12.6 GM/DL 12.0-15.0 HEMATOCRIT (BEAKER) (test clqz=924) 37.0 % 36.0-45.0 MEAN CORPUSCULAR VOLUME (BEAKER) (test rtwc=239) 84.8 fL 82.0-99.0 MEAN CORPUSCULAR HEMOGLOBIN (BEAKER) (test 29.0 pg 27.0-33.0 yuoj=575) MEAN CORPUSCULAR HEMOGLOBIN CONC (BEAKER) (test 34.2 GM/DL 32.0-36.0 apbc=548) RED CELL DISTRIBUTION WIDTH (BEAKER) (test 12.5 % 12.0-15.0 kaxn=729) PLATELET COUNT (BEAKER) (test vilh=350) 359 K/CU MM 150-430 MEAN PLATELET VOLUME (BEAKER) (test nkev=757) 7.2 fL 6.5-10.5 NUCLEATED RED BLOOD CELLS (BEAKER) (test 0 /100 WBC 0-0 wusy=391) NEUTROPHILS RELATIVE PERCENT (BEAKER) (test 53 % oshy=185) LYMPHOCYTES RELATIVE PERCENT (BEAKER) (test 40 % egwi=530) MONOCYTES RELATIVE PERCENT (BEAKER) (test 5 % kfvs=836) EOSINOPHILS RELATIVE PERCENT (BEAKER) (test 2 % rrgn=009) BASOPHILS RELATIVE PERCENT (BEAKER) (test 0 % wtvi=762) NEUTROPHILS ABSOLUTE COUNT (BEAKER) (test 4.90 K/ L 1.80-8.00 aaoj=995) LYMPHOCYTES ABSOLUTE COUNT (BEAKER) (test 3.70 K/ L 1.48-4.50 jtyh=540) MONOCYTES ABSOLUTE COUNT (BEAKER) (test 0.50 K/ L 0.00-1.30 nfeo=147) EOSINOPHILS ABSOLUTE COUNT (BEAKER) (test 0.20 K/ L 0.00-0.50 mgfk=471) BASOPHILS ABSOLUTE COUNT (BEAKER) (test 0.00 K/ L 0.00-0.20 siyh=744) POCT-GLUCOSE [id number] 05:38:00 Test Item Value Reference Range Comments POC-GLUCOSE METER (BEAKER) 102 mg/dL 70-110 TESTED AT [address] (test krlq=7847) [facility] [address] POCT-GLUCOSE [id number] 03:29:00 Test Item Value Reference Range Comments POC-GLUCOSE METER (BEAKER) 163 mg/dL 70-110 TESTED AT [address] (test josr=4724) [facility] [address] POCT-GLUCOSE [id number] 03:29:00 Test Item Value Reference Range Comments POC-GLUCOSE METER (BEAKER) 155 mg/dL 70-110 TESTED AT [facility] [address] [facility] (test mjgb=6591) [facility] [address] BASIC METABOLIC [id number] 01:42:00 Test Item Value Reference Range Comments SODIUM (BEAKER) (test 136 meq/L 135-148 vszz=367) POTASSIUM (BEAKER) (test 3.7 meq/L 3.5-5.5 myrx=710) CHLORIDE (BEAKER) (test 109 meq/L 98-106 wodh=710) CO2 (BEAKER) (test 17 meq/L 20-31 vzjn=531) BLOOD UREA NITROGEN 3 mg/dL 10-26 (BEAKER) (test coin=642) CREATININE (BEAKER) (test 0.79 mg/dL 0.50-1.20 kjij=000) GLUCOSE RANDOM (BEAKER) 153 mg/dL 70-110 (test eavd=607) CALCIUM (BEAKER) (test 8.2 mg/dL 8.5-10.5 bezo=741) EGFR (BEAKER) (test 94 mL/min/1.73 sq m ESTIMATED GFR IS NOT cvvw=5654) ACCURATE CREATININE CLEARANCE IN PREDICTING GLOMERULAR FILTRATION RATE. ESTIMATED GFR IS NOT APPLICABLE FOR DIALYSIS PATIENTS. [id number] 01:39:00 Test Item Value Reference Range Comments PHOSPHORUS (BEAKER) (test cklu=236) 2.1 mg/dL 2.5-4.5 [id number] 01:39:00 Test Item Value Reference Range Comments MAGNESIUM (BEAKER) (test dgon=771) 2.0 mg/dL 1.5-3.0 POCT-GLUCOSE [id number] 01:19:00 Test Item Value Reference Range Comments POC-GLUCOSE METER (BEAKER) 152 mg/dL 70-110 TESTED AT [facility] [address] [facility] (test dopw=3061) [facility] [address] POCT-GLUCOSE [id number] 01:07:00 Test Item Value Reference Range Comments POC-GLUCOSE METER (BEAKER) 145 mg/dL 70-110 TESTED AT [facility] [address] [facility] (test heff=7301) [facility] [address] POCT-GLUCOSE [id number] 01:07:00 Test Item Value Reference Range Comments POC-GLUCOSE METER (BEAKER) 165 mg/dL 70-110 TESTED AT [facility] [address] [facility] (test yeke=6942) [facility] [address] POCT-GLUCOSE [id number] 01:07:00 Test Item Value Reference Range Comments POC-GLUCOSE METER (BEAKER) 163 mg/dL 70-110 TESTED AT [facility] [address] [facility] (test iihb=6808) [facility] [address] BASIC METABOLIC [id number] 20:59:00 Test Item Value Reference Range Comments SODIUM (BEAKER) (test 137 meq/L 135-148 izbn=793) POTASSIUM (BEAKER) (test 3.9 meq/L 3.5-5.5 Specimen slightly wknb=023) hemolyzed CHLORIDE (BEAKER) (test 111 meq/L 98-106 gsqn=500) CO2 (BEAKER) (test 13 meq/L 20-31 sqil=294) BLOOD UREA NITROGEN 4 mg/dL 10-26 (BEAKER) (test agxj=638) CREATININE (BEAKER) (test 0.83 mg/dL 0.50-1.20 Specimen slightly vtno=247) hemolyzed GLUCOSE RANDOM (BEAKER) 160 mg/dL 70-110 (test yucn=756) CALCIUM (BEAKER) (test 8.5 mg/dL 8.5-10.5 ezty=269) EGFR (BEAKER) (test 89 mL/min/1.73 sq m ESTIMATED GFR IS NOT zcfx=6124) ACCURATE CREATININE CLEARANCE IN PREDICTING GLOMERULAR FILTRATION RATE. ESTIMATED GFR IS NOT APPLICABLE FOR DIALYSIS PATIENTS. [id number] 20:58:00 Test Item Value Reference Range Comments MAGNESIUM (BEAKER) (test 1.8 mg/dL 1.5-3.0 Specimen slightly hemolyzed jwju=769) [id number] 20:58:00 Test Item Value Reference Range Comments PHOSPHORUS (BEAKER) (test 2.2 mg/dL 2.5-4.5 Specimen slightly hemolyzed qhqd=921) POCT-GLUCOSE [id number] 18:02:00 Test Item Value Reference Range Comments POC-GLUCOSE METER (BEAKER) 176 mg/dL 70-110 TESTED AT [facility] [address] [facility] (test tmbi=5917) WAY [facility] [address] [id number] 16:46:00 Test Item Value Reference Range Comments MAGNESIUM (BEAKER) (test 2.1 mg/dL 1.5-3.0 Specimen slightly hemolyzed ugwh=793) [id number] 16:46:00 Test Item Value Reference Range Comments PHOSPHORUS (BEAKER) (test 2.1 mg/dL 2.5-4.5 Specimen slightly hemolyzed ftvc=419) BASIC METABOLIC [id number] 16:46:00 Test Item Value Reference Range Comments SODIUM (BEAKER) (test 134 meq/L 135-148 byfs=258) POTASSIUM (BEAKER) (test 4.4 meq/L 3.5-5.5 Specimen slightly pvxx=041) hemolyzed CHLORIDE (BEAKER) (test 109 meq/L 98-106 nkmq=354) CO2 (BEAKER) (test 13 meq/L 20-31 btzg=196) BLOOD UREA NITROGEN 5 mg/dL 10-26 (BEAKER) (test vjdx=374) CREATININE (BEAKER) (test 0.79 mg/dL 0.50-1.20 Specimen slightly lfuz=822) hemolyzed GLUCOSE RANDOM (BEAKER) 177 mg/dL 70-110 (test slyq=613) CALCIUM (BEAKER) (test 7.8 mg/dL 8.5-10.5 rlyd=017) EGFR (BEAKER) (test 94 mL/min/1.73 sq m ESTIMATED GFR IS NOT iccx=9504) ACCURATE CREATININE CLEARANCE IN PREDICTING GLOMERULAR FILTRATION RATE. ESTIMATED GFR IS NOT APPLICABLE FOR DIALYSIS PATIENTS. CALCIUM, [id number] 16:21:00 Test Item Value Reference Range Comments CALCIUM IONIZED (BEAKER) (test qxrb=483) 1.13 mmol/L 1.12-1.27 PH, BLOOD (BEAKER) (test dgyx=5619) 7.30 Check serum Ionized Calcium level after 4 hours after IV Calcium replacement.POCT-GLUCOSE [id number] 16:12:00 Test Item Value Reference Range Comments POC-GLUCOSE METER (BEAKER) 191 mg/dL 70-110 TESTED AT [facility] [address] [facility] (test jgkx=3736) [facility] [address] POCT-GLUCOSE [id number] 15:20:00 Test Item Value Reference Range Comments POC-GLUCOSE METER (BEAKER) 181 mg/dL 70-110 TESTED AT [facility] [address] [facility] (test ihyz=3863) WAY [facility] [address] POCT-GLUCOSE [id number] 14:15:00 Test Item Value Reference Range Comments POC-GLUCOSE METER (BEAKER) 169 mg/dL 70-110 TESTED AT [facility] [address] [facility] (test vxvf=9350) WAY [facility] [address] BASIC METABOLIC [id number] 13:44:00 Test Item Value Reference Range Comments SODIUM (BEAKER) (test 137 meq/L 135-148 utyf=143) POTASSIUM (BEAKER) (test 3.8 meq/L 3.5-5.5 kjou=077) CHLORIDE (BEAKER) (test 112 meq/L 98-106 bytq=044) CO2 (BEAKER) (test 13 meq/L 20-31 nqnx=811) BLOOD UREA NITROGEN 7 mg/dL - (BEAKER) (test gbnu=681) CREATININE (BEAKER) (test 0.78 mg/dL 0.50-1.20 rsue=621) GLUCOSE RANDOM (BEAKER) 141 mg/dL 70-110 (test abjz=108) CALCIUM (BEAKER) (test 7.7 mg/dL 8.5-10.5 npnm=545) EGFR (BEAKER) (test 95 mL/min/1.73 sq m ESTIMATED GFR IS NOT tmkl=7141) ACCURATE CREATININE CLEARANCE IN PREDICTING GLOMERULAR FILTRATION RATE. ESTIMATED GFR IS NOT APPLICABLE FOR DIALYSIS PATIENTS. POCT-GLUCOSE [id number] 13:24:00 Test Item Value Reference Range Comments POC-GLUCOSE METER (BEAKER) 157 mg/dL 70-110 TESTED AT [facility] [address] [facility] (test mtlr=3169) WAY [facility] [address] POCT-GLUCOSE [id number] 12:34:00 Test Item Value Reference Range Comments POC-GLUCOSE METER (BEAKER) 131 mg/dL 70-110 TESTED AT [facility] [address] [facility] (test uzzu=9714) WAY [facility] [address] POCT-GLUCOSE [id number] 11:39:00 Test Item Value Reference Range Comments POC-GLUCOSE METER (BEAKER) 160 mg/dL 70-110 TESTED AT [facility] [address] [facility] (test ebpp=4754) WAY [facility] [address] [id number] 11:13:00 Test Item Value Reference Range Comments PROCALCITONIN (BEAKER) (test jzbm=2796) < ng/mL <0.05 SEPSIS RISK (ng/mL)Low: 0.05-0.50Intermediate: 0.51-2.00High: & gt;=2.01POCT-GLUCOSE [id number] 10:40:00 Test Item Value Reference Range Comments POC-GLUCOSE METER (BEAKER) 202 mg/dL 70-110 TESTED AT [facility] [address] [facility] (test mhjf=3842) WAY [facility] [address] [id number] 10:04:00 Test Item Value Reference Range Comments PHOSPHORUS (BEAKER) (test 1.4 mg/dL 2.5-4.5 Specimen slightly hemolyzed shqo=421) BASIC METABOLIC [id number] 10:04:00 Test Item Value Reference Range Comments SODIUM (BEAKER) (test 138 meq/L 135-148 wbpn=562) POTASSIUM (BEAKER) (test 4.0 meq/L 3.5-5.5 Specimen slightly tuow=810) hemolyzed CHLORIDE (BEAKER) (test 113 meq/L 98-106 iasd=238) CO2 (BEAKER) (test 11 meq/L 20-31 ggul=597) BLOOD UREA NITROGEN 9 mg/dL 10-26 (BEAKER) (test aijx=680) CREATININE (BEAKER) (test 0.88 mg/dL 0.50-1.20 Specimen slightly vuxx=490) hemolyzed GLUCOSE RANDOM (BEAKER) 224 mg/dL 70-110 (test pagp=095) CALCIUM (BEAKER) (test 7.9 mg/dL 8.5-10.5 allj=431) EGFR (BEAKER) (test 83 mL/min/1.73 sq m ESTIMATED GFR IS NOT ibqc=4538) ACCURATE CREATININE CLEARANCE IN PREDICTING GLOMERULAR FILTRATION RATE. ESTIMATED GFR IS NOT APPLICABLE FOR DIALYSIS PATIENTS. [id number] 10:02:00 Test Item Value Reference Range Comments MAGNESIUM (BEAKER) (test 1.8 mg/dL 1.5-3.0 Specimen slightly hemolyzed uggt=537) POCT-GLUCOSE [id number] 09:36:00 Test Item Value Reference Range Comments POC-GLUCOSE METER (BEAKER) 212 mg/dL 70-110 TESTED AT [facility] [address] [facility] (test jpeq=7703) [facility] [address] POCT-GLUCOSE [id number] 08:43:00 Test Item Value Reference Range Comments POC-GLUCOSE METER (BEAKER) 268 mg/dL 70-110 TESTED AT [facility] [address] [place] [address] (test afgf=6452) [facility] [address] [id number] 07:47:00 Test Item Value Reference Range Comments POTASSIUM (BEAKER) (test fuua=342) 4.0 meq/L 3.5-5.5 If last glucose was less than 500, may do bedside glucose instead of serum glucose.[id number] 07:47:00 Test Item Value Reference Range Comments GLUCOSE RANDOM (BEAKER) (test qenn=003) 370 mg/dL 70-110 If last glucose was less than 500, may do bedside glucose instead of serum glucose.POCT-GLUCOSE [id number] 07:31:00 Test Item Value Reference Range Comments POC-GLUCOSE METER (BEAKER) 328 mg/dL 70-110 Notified VI DAVIS/TESTED AT [facility] (test vozb=7887) [address] [place] [address] POCT-GLUCOSE [id number] 07:31:00 Test Item Value Reference Range Comments POC-GLUCOSE METER (BEAKER) 414 mg/dL 70-110 TESTED AT [facility] [id number] [place] [address] (test zpne=5828) [place] [address] [id number] 06:57:00 Test Item Value Reference Range Comments POTASSIUM (BEAKER) (test jsxe=956) 4.5 meq/L 3.5-5.5 [id number] 06:51:00 Test Item Value Reference Range Comments GLUCOSE RANDOM (BEAKER) (test jiaj=225) 523 mg/dL 70-110 If last glucose was less than 500, may do bedside glucose instead of serum glucose.URINALYSIS W/ REFLEX URINE [id number] 06:29:00 Test Item Value Reference Range Comments COLOR (BEAKER) (test yyjw=260) Colorless CLARITY (BEAKER) (test xrsf=460) Hazy SPECIFIC GRAVITY UA (BEAKER) (test itcw=454) 1.022 1.001-1.035 PH UA (BEAKER) (test ynzb=173) 5.0 5.0-8.0 PROTEIN UA (BEAKER) (test lcdv=955) Negative Negative GLUCOSE UA (BEAKER) (test ttzh=116) >500 mg/dL Negative KETONES UA (BEAKER) (test fyil=079) 80 mg/dL Negative BILIRUBIN UA (BEAKER) (test roxr=060) Negative Negative BLOOD UA (BEAKER) (test klrd=042) Large Negative NITRITE UA (BEAKER) (test ngkb=230) Negative Negative LEUKOCYTE ESTERASE UA (BEAKER) (test toso=446) Negative Negative UROBILINOGEN UA (BEAKER) (test qvts=210) < mg/dL 0.2-1.0 RBC UA (BEAKER) (test vqei=885) 170 /HPF WBC UA (BEAKER) (test zwlo=272) 27 /HPF MUCUS (BEAKER) (test ggtl=5705) Rare SOURCE(BEAKER) (test nyoh=8075) RAPID INFLUENZA A&B [id number] 06:13:00 Test Item Value Reference Range Comments RAPID INFLUENZA A AG (BEAKER) (test frud=4900) Negative Negative RAPID INFLUENZA B AG (BEAKER) (test uxtf=1340) Negative Negative SCREEN, [id number] 05:58:00 Test Item Value Reference Range Comments TEST URINE (BEAKER) (test oell=265) Negative RAD, CHEST, 1 VIEW, NON [id number] 05:52:00Reason for exam:-> EMESISReason for exam:->BLOOD SUGAR PROBLEMShould this be performed at the bedside?->YesIs the patient ?->NoFINAL REPORT Comparison examination: 04/07/2017 No pneumothorax, focal pulmonary consolidation, or significant pleural effusion. Normal cardiomediastinal contours. Normal skeleton and soft tissues. Impression: No acute abnormality. Signed: Joesph Foy Verified Date/Time: 05/18/2017 05:52 :18 Reading Location: [facility] C013T Transitional Reading Room HEMOGLOBIN [id number] 05:49:00 Test Item Value Reference Range Comments HEMOGLOBIN A1C (BEAKER) (test yrax=503) 13.2 % 4.3-6.1 BASIC METABOLIC [id number] 05:28:00 Test Item Value Reference Range Comments SODIUM (BEAKER) (test 132 meq/L 135-148 vuob=611) POTASSIUM (BEAKER) (test 4.4 meq/L 3.5-5.5 hycy=606) CHLORIDE (BEAKER) (test 101 meq/L 98-106 mcso=502) CO2 (BEAKER) (test 8 meq/L 20-31 swup=673) BLOOD UREA NITROGEN 12 mg/dL 10-26 (BEAKER) (test jqmw=601) CREATININE (BEAKER) (test 1.29 mg/dL 0.50-1.20 qbrf=012) GLUCOSE RANDOM (BEAKER) 622 mg/dL 70-110 (test cwco=651) CALCIUM (BEAKER) (test 8.7 mg/dL 8.5-10.5 sygg=212) EGFR (BEAKER) (test 53 mL/min/1.73 sq m ESTIMATED GFR IS NOT szpy=2825) ACCURATE CREATININE CLEARANCE IN PREDICTING GLOMERULAR FILTRATION RATE. ESTIMATED GFR IS NOT APPLICABLE FOR DIALYSIS PATIENTS. If last glucose was less than 500, may do bedside glucose instead of serum glucose.HEPATIC FUNCTION [id number] 05:27:00 Test Item Value Reference Range Comments TOTAL PROTEIN (BEAKER) (test ibgk=345) 7.9 gm/dL 6.0-8.5 ALBUMIN (BEAKER) (test buzj=2507) 4.1 g/dL 3.5-5.0 BILIRUBIN TOTAL (BEAKER) (test fixz=169) 0.4 mg/dL 0.1-1.3 BILIRUBIN DIRECT (BEAKER) (test ydds=636) 0.2 mg/dL 0.0-0.5 ALKALINE PHOSPHATASE (BEAKER) (test otvr=290) 136 U/L 30-115 AST (SGOT) (BEAKER) (test bhhd=019) 11 U/L 5-40 ALT (SGPT) (BEAKER) (test slym=535) 10 U/L 6-50 If last glucose was less than 500, may do bedside glucose instead of serum glucose.Specimen slightlylipemicBLOOD GAS, [id number] 05:04:00 Test Item Value Reference Range Comments PH VENOUS (BEAKER) (test cjgg=542) 7.17 7.32-7.42 PCO2 VENOUS (BEAKER) (test hmqf=330) 30 mmHg 41-51 PO2 VENOUS (BEAKER) (test oixv=951) 35 mmHg 25-40 O2 SATURATION VENOUS (BEAKER) (test ubzo=564) 53.6 % 40.0-70.0 HCO3 VENOUS (BEAKER) (test kmnl=581) 11 mmol/L 21-29 BASE EXCESS VENOUS (BEAKER) (test axod=512) -16.5 mmol/L -2.0-3.0 PATIENT TEMPERATURE (BEAKER) (test dacw=5996) 36.9 C FIO2 (BEAKER) (test haez=3226) 21.0 % KETONE, [id number] 05:03:00 Test Item Value Reference Range Comments KETONES, BLOOD (BEAKER) (test ijst=5219) 5.8 mmol/L <0.4 CBC W/PLT COUNT & AUTO [id number] 05:02:00 Test Item Value Reference Range Comments WHITE BLOOD CELL COUNT (BEAKER) (test jbjs=812) 15.3 K/ L 4.0-10.0 RED BLOOD CELL COUNT (BEAKER) (test dnrb=326) 4.71 M/ L 4.00-5.00 HEMOGLOBIN (BEAKER) (test imsr=268) 13.5 GM/DL 12.0-15.0 HEMATOCRIT (BEAKER) (test llfl=779) 40.9 % 36.0-45.0 MEAN CORPUSCULAR VOLUME (BEAKER) (test tgkz=999) 86.8 fL 82.0-99.0 MEAN CORPUSCULAR HEMOGLOBIN (BEAKER) (test 28.7 pg 27.0-33.0 ocdk=898) MEAN CORPUSCULAR HEMOGLOBIN CONC (BEAKER) (test 33.1 GM/DL 32.0-36.0 kwkh=468) RED CELL DISTRIBUTION WIDTH (BEAKER) (test 12.3 % 12.0-15.0 oiby=091) PLATELET COUNT (BEAKER) (test dmcq=850) 382 K/CU MM 150-430 MEAN PLATELET VOLUME (BEAKER) (test yhwi=295) 7.7 fL 6.5-10.5 NUCLEATED RED BLOOD CELLS (BEAKER) (test 0 /100 WBC 0-0 tfsp=162) NEUTROPHILS RELATIVE PERCENT (BEAKER) (test 73 % dbwi=183) LYMPHOCYTES RELATIVE PERCENT (BEAKER) (test 21 % javd=254) MONOCYTES RELATIVE PERCENT (BEAKER) (test 5 % xxln=846) EOSINOPHILS RELATIVE PERCENT (BEAKER) (test 1 % adfn=352) BASOPHILS RELATIVE PERCENT (BEAKER) (test 0 % ugnl=954) NEUTROPHILS ABSOLUTE COUNT (BEAKER) (test 11.20 K/ L 1.80-8.00 eimx=929) LYMPHOCYTES ABSOLUTE COUNT (BEAKER) (test 3.30 K/ L 1.48-4.50 qzzc=580) MONOCYTES ABSOLUTE COUNT (BEAKER) (test 0.70 K/ L 0.00-1.30 avhs=523) EOSINOPHILS ABSOLUTE COUNT (BEAKER) (test 0.10 K/ L 0.00-0.50 swtx=836) BASOPHILS ABSOLUTE COUNT (BEAKER) (test 0.00 K/ L 0.00-0.20 mitv=875) POCT-GLUCOSE [id number] 04:49:00 Test Item Value Reference Range Comments POC-GLUCOSE METER (BEAKER) > mg/dL 70-110 OUTSIDE MEASURING RANGETESTED AT (test zute=8479) [facility] [address] [facility] [address] BLOOD [id number] 00:00:00 Test Item Value Reference Range Comments CULTURE (BEAKER) (test bppp=5388) No growth in 5 days BLOOD [id number] 00:00:00 Test Item Value Reference Range Comments CULTURE (BEAKER) (test hccp=0222) No growth in 5 days URINE [id number] 15:21:00 Test Item Value Reference Range Comments CULTURE (BEAKER) (test uulz=1740) >100,000 col/mL skin christophe POCT-GLUCOSE [id number] 14:37:00 Test Item Value Reference Range Comments POC-GLUCOSE METER (BEAKER) 326 mg/dL 70-110 TESTED AT [facility] [address] [facility] (test util=6310) [facility] [address] POCT-GLUCOSE [id number] 13:26:00 Test Item Value Reference Range Comments POC-GLUCOSE METER (BEAKER) 331 mg/dL 70-110 TESTED AT [facility] [address] [facility] (test oato=0938) [facility] [address] CBC W/PLT COUNT & AUTO [id number] 11:34:00 Test Item Value Reference Range Comments WHITE BLOOD CELL COUNT (BEAKER) (test bpbw=566) 5.9 K/ L 3.5-10.5 RED BLOOD CELL COUNT (BEAKER) (test vpgf=229) 4.15 M/ L 3.93-5.22 HEMOGLOBIN (BEAKER) (test kphj=631) 11.7 GM/DL 11.2-15.7 HEMATOCRIT (BEAKER) (test meac=584) 34.9 % 34.1-44.9 MEAN CORPUSCULAR VOLUME (BEAKER) (test dwdx=375) 84.1 fL 79.4-94.8 MEAN CORPUSCULAR HEMOGLOBIN (BEAKER) (test 28.2 pg 25.6-32.2 lscf=643) MEAN CORPUSCULAR HEMOGLOBIN CONC (BEAKER) (test 33.5 GM/DL 32.2-35.5 ibsb=723) RED CELL DISTRIBUTION WIDTH (BEAKER) (test 12.8 % 11.7-14.4 lnnl=037) PLATELET COUNT (BEAKER) (test nhih=977) 272 K/CU MM 150-450 MEAN PLATELET VOLUME (BEAKER) (test jgqj=773) 9.5 fL 9.4-12.3 NUCLEATED RED BLOOD CELLS (BEAKER) (test 0 /100 WBC 0-0 lqjz=054) NEUTROPHILS RELATIVE PERCENT (BEAKER) (test 44 % ifxm=685) LYMPHOCYTES RELATIVE PERCENT (BEAKER) (test 47 % nicc=385) MONOCYTES RELATIVE PERCENT (BEAKER) (test 6 % zvvm=668) EOSINOPHILS RELATIVE PERCENT (BEAKER) (test 2 % nokt=610) BASOPHILS RELATIVE PERCENT (BEAKER) (test 1 % lapy=873) NEUTROPHILS ABSOLUTE COUNT (BEAKER) (test 2.61 K/ L 1.56-6.13 ynnh=244) LYMPHOCYTES ABSOLUTE COUNT (BEAKER) (test 2.79 K/ L 1.18-3.74 ygas=119) MONOCYTES ABSOLUTE COUNT (BEAKER) (test 0.33 K/ L 0.24-0.36 ckln=959) EOSINOPHILS ABSOLUTE COUNT (BEAKER) (test 0.10 K/ L 0.04-0.36 rted=592) BASOPHILS ABSOLUTE COUNT (BEAKER) (test 0.04 K/ L 0.01-0.08 schz=145) IMMATURE GRANULOCYTES-RELATIVE PERCENT (BEAKER) 0 % 0-1 (test jsfu=4582) (MANUAL DIFFERENTIAL)2017-04-09 11:34:00 Test Item Value Reference Range Comments TOTAL COUNTED (BEAKER) (test xsnc=4304) POCT-GLUCOSE [id number] 11:18:00 Test Item Value Reference Range Comments POC-GLUCOSE METER (BEAKER) 349 mg/dL 70-110 TESTED AT [address] (test bbep=8455) [place] [id number] POCT-GLUCOSE [id number] 09:34:00 Test Item Value Reference Range Comments POC-GLUCOSE METER (BEAKER) 61 mg/dL 70-110 TESTED AT [address] (test ljeo=1450) [facility] [address] POCT-GLUCOSE [id number] 08:48:00 Test Item Value Reference Range Comments POC-GLUCOSE METER (BEAKER) 79 mg/dL 70-110 TESTED AT [address] (test xite=7520) [facility] [address] BASIC METABOLIC [id number] 06:12:00 Test Item Value Reference Range Comments SODIUM (BEAKER) (test 135 meq/L 136-145 logk=818) POTASSIUM (BEAKER) (test 4.7 meq/L 3.5-5.1 zcyj=330) CHLORIDE (BEAKER) (test 105 meq/L 98-107 ilbo=959) CO2 (BEAKER) (test 22 meq/L 22-29 ktdw=573) BLOOD UREA NITROGEN 11 mg/dL 7-21 (BEAKER) (test qtrd=295) CREATININE (BEAKER) (test 0.83 mg/dL 0.57-1.25 bucs=764) GLUCOSE RANDOM (BEAKER) 387 mg/dL 70-105 (test sics=194) CALCIUM (BEAKER) (test 8.7 mg/dL 8.4-10.2 qeoa=907) EGFR (BEAKER) (test 89 mL/min/1.73 sq m ESTIMATED GFR IS NOT fqhi=3659) ACCURATE CREATININE CLEARANCE IN PREDICTING GLOMERULAR FILTRATION RATE. ESTIMATED GFR IS NOT APPLICABLE FOR DIALYSIS PATIENTS. KETONE, [id number] 05:43:00 Test Item Value Reference Range Comments KETONES, BLOOD (BEAKER) (test rald=5693) 0.1 mmol/L <0.4 POCT-GLUCOSE [id number] 05:39:00 Test Item Value Reference Range Comments POC-GLUCOSE METER (BEAKER) 366 mg/dL 70-110 TESTED AT [address] (test wvvf=4703) [facility] [address] POCT-GLUCOSE [id number] 22:32:00 Test Item Value Reference Range Comments POC-GLUCOSE METER (BEAKER) 302 mg/dL 70-110 TESTED AT [address] (test uiqc=5810) [place] [id number] POCT-GLUCOSE [id number] 19:15:00 Test Item Value Reference Range Comments POC-GLUCOSE METER (BEAKER) 273 mg/dL 70-110 TESTED AT [address] (test qjgv=1511) [place] [id number] POCT-GLUCOSE [id number] 17:49:00 Test Item Value Reference Range Comments POC-GLUCOSE METER (BEAKER) 174 mg/dL 70-110 TESTED AT [address] (test nxcm=3310) [place] [id number] POCT-GLUCOSE [id number] 17:02:00 Test Item Value Reference Range Comments POC-GLUCOSE METER (BEAKER) 171 mg/dL 70-110 TESTED AT [address] (test rvop=9581) [facility] [address] POCT-GLUCOSE [id number] 15:17:00 Test Item Value Reference Range Comments POC-GLUCOSE METER (BEAKER) 135 mg/dL 70-110 TESTED AT [address] (test xhfm=7005) [place] [id number] POCT-GLUCOSE [id number] 13:10:00 Test Item Value Reference Range Comments POC-GLUCOSE METER (BEAKER) 61 mg/dL 70-110 TESTED AT [address] (test mpso=1715) [place] [id number] POCT-GLUCOSE [id number] 11:21:00 Test Item Value Reference Range Comments POC-GLUCOSE METER (BEAKER) 57 mg/dL 70-110 Notified VI DAVIS/TESTED AT [facility] (test nacp=2221) [address] [facility] [address] POCT-GLUCOSE [id number] 08:02:00 Test Item Value Reference Range Comments POC-GLUCOSE METER (BEAKER) 68 mg/dL 70-110 Notified VI DAVIS/TESTED AT [facility] (test jrfl=8255) [address] [facility] [address] CBC W/PLT COUNT & AUTO [id number] 08:02:00 Test Item Value Reference Range Comments WHITE BLOOD CELL COUNT (BEAKER) (test vwdu=803) 6.6 K/ L 3.5-10.5 RED BLOOD CELL COUNT (BEAKER) (test uckl=992) 3.97 M/ L 3.93-5.22 HEMOGLOBIN (BEAKER) (test zszy=040) 11.2 GM/DL 11.2-15.7 HEMATOCRIT (BEAKER) (test wibr=122) 33.2 % 34.1-44.9 MEAN CORPUSCULAR VOLUME (BEAKER) (test dmaw=603) 83.6 fL 79.4-94.8 MEAN CORPUSCULAR HEMOGLOBIN (BEAKER) (test 28.2 pg 25.6-32.2 nlgr=518) MEAN CORPUSCULAR HEMOGLOBIN CONC (BEAKER) (test 33.7 GM/DL 32.2-35.5 cejn=818) RED CELL DISTRIBUTION WIDTH (BEAKER) (test 12.7 % 11.7-14.4 lfkf=726) PLATELET COUNT (BEAKER) (test djmt=190) 231 K/CU MM 150-450 MEAN PLATELET VOLUME (BEAKER) (test dgcq=525) 9.5 fL 9.4-12.3 NUCLEATED RED BLOOD CELLS (BEAKER) (test 0 /100 WBC 0-0 nswg=003) NEUTROPHILS RELATIVE PERCENT (BEAKER) (test 33 % npaq=608) LYMPHOCYTES RELATIVE PERCENT (BEAKER) (test 58 % nvfw=674) MONOCYTES RELATIVE PERCENT (BEAKER) (test 6 % gcgs=180) EOSINOPHILS RELATIVE PERCENT (BEAKER) (test 2 % jzkm=173) BASOPHILS RELATIVE PERCENT (BEAKER) (test 1 % bpfk=966) NEUTROPHILS ABSOLUTE COUNT (BEAKER) (test 2.20 K/ L 1.56-6.13 aeae=691) LYMPHOCYTES ABSOLUTE COUNT (BEAKER) (test 3.84 K/ L 1.18-3.74 cmlh=444) MONOCYTES ABSOLUTE COUNT (BEAKER) (test 0.37 K/ L 0.24-0.36 icxc=156) EOSINOPHILS ABSOLUTE COUNT (BEAKER) (test 0.13 K/ L 0.04-0.36 kqda=359) BASOPHILS ABSOLUTE COUNT (BEAKER) (test 0.04 K/ L 0.01-0.08 avwe=879) IMMATURE GRANULOCYTES-RELATIVE PERCENT (BEAKER) 0 % 0-1 (test cfuk=7540) POCT-GLUCOSE [id number] 06:58:00 Test Item Value Reference Range Comments POC-GLUCOSE METER (BEAKER) 95 mg/dL 70-110 TESTED AT [address] (test xhqw=7449) [place] [id number] POCT-GLUCOSE [id number] 06:17:00 Test Item Value Reference Range Comments POC-GLUCOSE METER (BEAKER) 150 mg/dL 70-110 TESTED AT [address] (test pqvm=9365) [place] [id number] POCT-GLUCOSE [id number] 05:18:00 Test Item Value Reference Range Comments POC-GLUCOSE METER (BEAKER) 101 mg/dL 70-110 TESTED AT [address] (test ydxt=8193) [place] [id number] POCT-GLUCOSE [id number] 05:07:00 Test Item Value Reference Range Comments POC-GLUCOSE METER (BEAKER) 119 mg/dL 70-110 TESTED AT [address] (test hjuh=1831) [place] [id number] BASIC METABOLIC [id number] 04:52:00 Test Item Value Reference Range Comments SODIUM (BEAKER) (test 140 meq/L 136-145 dyry=309) POTASSIUM (BEAKER) (test 3.8 meq/L 3.5-5.1 engx=718) CHLORIDE (BEAKER) (test 109 meq/L 98-107 ocua=406) CO2 (BEAKER) (test 21 meq/L 22-29 zgtw=409) BLOOD UREA NITROGEN 7 mg/dL 7-21 (BEAKER) (test jkfb=973) CREATININE (BEAKER) (test 0.70 mg/dL 0.57-1.25 evdi=288) GLUCOSE RANDOM (BEAKER) 208 mg/dL 70-105 (test tjli=026) CALCIUM (BEAKER) (test 8.4 mg/dL 8.4-10.2 fjes=192) EGFR (BEAKER) (test 108 mL/min/1.73 sq m ESTIMATED GFR IS NOT mxdb=8161) ACCURATE CREATININE CLEARANCE IN PREDICTING GLOMERULAR FILTRATION RATE. ESTIMATED GFR IS NOT APPLICABLE FOR DIALYSIS PATIENTS. POCT-GLUCOSE [id number] 04:05:00 Test Item Value Reference Range Comments POC-GLUCOSE METER (BEAKER) 48 mg/dL 70-110 TESTED AT [address] (test vbzs=4061) [place] [id number] POCT-GLUCOSE [id number] 02:30:00 Test Item Value Reference Range Comments POC-GLUCOSE METER (BEAKER) 181 mg/dL 70-110 TESTED AT [address] (test jkdi=1200) [place] [id number] POCT-GLUCOSE [id number] 02:10:00 Test Item Value Reference Range Comments POC-GLUCOSE METER (BEAKER) 37 mg/dL 70-110 Will Repeat Test/TESTED AT (test mtoq=7021) [address] [address] POCT-GLUCOSE [id number] 01:07:00 Test Item Value Reference Range Comments POC-GLUCOSE METER (BEAKER) 87 mg/dL 70-110 TESTED AT [address] (test hwsi=5451) [facility] [address] BASIC METABOLIC [id number] 00:44:00 Test Item Value Reference Range Comments SODIUM (BEAKER) (test 142 meq/L 136-145 zbdq=580) POTASSIUM (BEAKER) (test 3.6 meq/L 3.5-5.1 hkkg=838) CHLORIDE (BEAKER) (test 112 meq/L 98-107 ivzg=214) CO2 (BEAKER) (test 22 meq/L 22-29 wgwx=605) BLOOD UREA NITROGEN 8 mg/dL 7-21 (BEAKER) (test flnt=510) CREATININE (BEAKER) (test 0.83 mg/dL 0.57-1.25 vfgg=575) GLUCOSE RANDOM (BEAKER) 109 mg/dL 70-105 (test ubjf=128) CALCIUM (BEAKER) (test 8.6 mg/dL 8.4-10.2 oblm=082) EGFR (BEAKER) (test 89 mL/min/1.73 sq m ESTIMATED GFR IS NOT edqz=6360) ACCURATE CREATININE CLEARANCE IN PREDICTING GLOMERULAR FILTRATION RATE. ESTIMATED GFR IS NOT APPLICABLE FOR DIALYSIS PATIENTS. POCT-GLUCOSE [id number] 00:30:00 Test Item Value Reference Range Comments POC-GLUCOSE METER (BEAKER) 96 mg/dL 70-110 TESTED AT [address] (test bshi=8056) [place] [id number] POCT-GLUCOSE [id number] 23:54:00 Test Item Value Reference Range Comments POC-GLUCOSE METER (BEAKER) 91 mg/dL 70-110 TESTED AT [address] (test sxmn=4629) [place] [id number] POCT-GLUCOSE [id number] 23:12:00 Test Item Value Reference Range Comments POC-GLUCOSE METER (BEAKER) 48 mg/dL 70-110 TESTED AT [address] (test jpqc=2639) [place] [id number] POCT-GLUCOSE [id number] 21:58:00 Test Item Value Reference Range Comments POC-GLUCOSE METER (BEAKER) 94 mg/dL 70-110 TESTED AT [address] (test xneb=5295) [facility] [address] BASIC METABOLIC [id number] 21:08:00 Test Item Value Reference Range Comments SODIUM (BEAKER) (test 137 meq/L 136-145 kcqf=066) POTASSIUM (BEAKER) (test 3.6 meq/L 3.5-5.1 caws=663) CHLORIDE (BEAKER) (test 109 meq/L 98-107 tdis=106) CO2 (BEAKER) (test 18 meq/L 22-29 rhnk=495) BLOOD UREA NITROGEN 6 mg/dL 7-21 (BEAKER) (test poiz=097) CREATININE (BEAKER) (test 0.93 mg/dL 0.57-1.25 fvkt=812) GLUCOSE RANDOM (BEAKER) 200 mg/dL 70-105 (test igau=555) CALCIUM (BEAKER) (test 7.8 mg/dL 8.4-10.2 taka=037) EGFR (BEAKER) (test 78 mL/min/1.73 sq m ESTIMATED GFR IS NOT momo=4928) ACCURATE CREATININE CLEARANCE IN PREDICTING GLOMERULAR FILTRATION RATE. ESTIMATED GFR IS NOT APPLICABLE FOR DIALYSIS PATIENTS. POCT-GLUCOSE [id number] 20:57:00 Test Item Value Reference Range Comments POC-GLUCOSE METER (BEAKER) 165 mg/dL 70-110 TESTED AT [facility] [address] [facility] (test cvoo=1384) [place] [address] [id number] 20:55:00 Test Item Value Reference Range Comments POTASSIUM (BEAKER) (test xlrr=570) 3.6 meq/L 3.5-5.1 URINALYSIS W/ [id number] 20:40:00 Test Item Value Reference Range Comments COLOR (BEAKER) (test dzly=789) Light Yellow CLARITY (BEAKER) (test vezr=783) Clear SPECIFIC GRAVITY UA (BEAKER) (test nazl=809) 1.009 1.001-1.035 PH UA (BEAKER) (test fwas=717) 5.5 5.0-8.0 PROTEIN UA (BEAKER) (test mrvb=117) Negative Negative GLUCOSE UA (BEAKER) (test rozj=802) >1000 mg/dL Negative KETONES UA (BEAKER) (test usma=328) 60 mg/dL Negative BILIRUBIN UA (BEAKER) (test qclr=762) Negative Negative BLOOD UA (BEAKER) (test korb=429) Moderate Negative NITRITE UA (BEAKER) (test wfqp=097) Negative Negative LEUKOCYTE ESTERASE UA (BEAKER) (test vqda=034) Negative Negative UROBILINOGEN UA (BEAKER) (test vzwg=401) 0.2 mg/dL 0.2-1.0 RBC UA (BEAKER) (test pecq=831) 0 /HPF WBC UA (BEAKER) (test znta=873) 1 /HPF SQUAMOUS EPITHELIAL (BEAKER) (test vxas=885) 2 /HPF SOURCE(BEAKER) (test wdlw=9867) POCT-GLUCOSE [id number] 19:59:00 Test Item Value Reference Range Comments POC-GLUCOSE METER (BEAKER) 282 mg/dL 70-110 TESTED AT [place] [id number] [facility] (test uiop=1937) [place] [id number] POCT-GLUCOSE [id number] 19:02:00 Test Item Value Reference Range Comments POC-GLUCOSE METER (BEAKER) 374 mg/dL 70-110 Notified VI DAVIS/TESTED AT [facility] (test sqlg=1848) [address] [facility] [address] CBC W/PLT COUNT & AUTO [id number] 18:56:00 Test Item Value Reference Range Comments WHITE BLOOD CELL COUNT (BEAKER) (test nufn=846) 8.3 K/ L 3.5-10.5 RED BLOOD CELL COUNT (BEAKER) (test vmsr=776) 4.18 M/ L 3.93-5.22 HEMOGLOBIN (BEAKER) (test qgiy=101) 11.9 GM/DL 11.2-15.7 HEMATOCRIT (BEAKER) (test raec=938) 35.0 % 34.1-44.9 MEAN CORPUSCULAR VOLUME (BEAKER) (test zbqe=527) 83.7 fL 79.4-94.8 MEAN CORPUSCULAR HEMOGLOBIN (BEAKER) (test 28.5 pg 25.6-32.2 tldy=197) MEAN CORPUSCULAR HEMOGLOBIN CONC (BEAKER) (test 34.0 GM/DL 32.2-35.5 oehb=138) RED CELL DISTRIBUTION WIDTH (BEAKER) (test 12.7 % 11.7-14.4 irvu=605) PLATELET COUNT (BEAKER) (test omge=949) 307 K/CU MM 150-450 MEAN PLATELET VOLUME (BEAKER) (test maih=258) 9.5 fL 9.4-12.3 NUCLEATED RED BLOOD CELLS (BEAKER) (test 0 /100 WBC 0-0 saaa=642) NEUTROPHILS RELATIVE PERCENT (BEAKER) (test 42 % gvts=886) LYMPHOCYTES RELATIVE PERCENT (BEAKER) (test 51 % ziyc=336) MONOCYTES RELATIVE PERCENT (BEAKER) (test 5 % roer=438) EOSINOPHILS RELATIVE PERCENT (BEAKER) (test 1 % oirf=148) BASOPHILS RELATIVE PERCENT (BEAKER) (test 1 % qmzo=658) NEUTROPHILS ABSOLUTE COUNT (BEAKER) (test 3.52 K/ L 1.56-6.13 sruz=620) LYMPHOCYTES ABSOLUTE COUNT (BEAKER) (test 4.24 K/ L 1.18-3.74 tcdm=649) MONOCYTES ABSOLUTE COUNT (BEAKER) (test 0.39 K/ L 0.24-0.36 npzf=820) EOSINOPHILS ABSOLUTE COUNT (BEAKER) (test 0.09 K/ L 0.04-0.36 puho=771) BASOPHILS ABSOLUTE COUNT (BEAKER) (test 0.05 K/ L 0.01-0.08 tgap=456) IMMATURE GRANULOCYTES-RELATIVE PERCENT (BEAKER) 0 % 0-1 (test bddq=2877) POCT-GLUCOSE [id number] 18:03:00 Test Item Value Reference Range Comments POC-GLUCOSE METER (BEAKER) 294 mg/dL 70-110 TESTED AT [facility] [address] [facility] (test onrk=2092) [facility] [address] HEMOGLOBIN [id number] 17:45:00 Test Item Value Reference Range Comments HEMOGLOBIN A1C (BEAKER) (test ajeo=135) 12.6 % 4.3-6.1 RAD, CHEST, 1 VIEW, NON [id number] 17:20:00Reason for exam:->sobShould this be performed at [...] [place] Verified Date/Time: 04/07/2017 17:20:50 Reading Location: [address] Radiology Reading Room TSH/FREE T4 IF [id number] 17: 04:00 Test Item Value Reference Range Comments THYROID STIMULATING HORMONE (BEAKER) (test 0.95 uIU/mL 0.35-4.94 nqkh=923) TROPONIN [id number] 16:51:00 Test Item Value Reference Range Comments TROPONIN I (BEAKER) (test gpde=763) < ng/mL 0.00-0.03 Effective 06/20/2014: Reference Range [...] renalfailure, acidosis, acute neurological disease, and persistent tachyarrhythmia.[id number] 16:45:00 Test Item Value Reference Range Comments LIPASE (BEAKER) (test ajub=244) 33 U/L 8-78 [id number] 16:45:00 Test Item Value Reference Range Comments AMYLASE (BEAKER) (test cjrv=862) 66 U/L 25-125 BASIC METABOLIC [id number] 16:45:00 Test Item Value Reference Range Comments SODIUM (BEAKER) (test 139 meq/L 136-145 ogbs=444) POTASSIUM (BEAKER) (test 3.8 meq/L 3.5-5.1 dxwh=515) CHLORIDE (BEAKER) (test 109 meq/L 98-107 hxwo=087) CO2 (BEAKER) (test 23 meq/L 22-29 mqez=867) BLOOD UREA NITROGEN 8 mg/dL 7-21 (BEAKER) (test ykjr=790) CREATININE (BEAKER) (test 0.72 mg/dL 0.57-1.25 ijgt=531) GLUCOSE RANDOM (BEAKER) 125 mg/dL 70-105 (test zbkw=822) CALCIUM (BEAKER) (test 8.4 mg/dL 8.4-10.2 numy=465) EGFR (BEAKER) (test 104 mL/min/1.73 sq m ESTIMATED GFR IS NOT qjzj=7859) ACCURATE CREATININE CLEARANCE IN PREDICTING GLOMERULAR FILTRATION RATE. ESTIMATED GFR IS NOT APPLICABLE FOR DIALYSIS PATIENTS. LACTIC ACID, VENOUS, WHOLE [id number] 16:45:00 Test Item Value Reference Range Comments LACTATE BLOOD VENOUS (2) (BEAKER) (test 1.1 mmol/L 0.5-2.2 awuh=9080) Effective 12/05/2015: Units/Reference Range ChangeNew: 0.5-2.2 mmol/L Previous: 5 -20 mg/dLKETONE, [id number] 16:41:00 Test Item Value Reference Range Comments KETONES, BLOOD (BEAKER) (test ganq=7700) 2.1 mmol/L <0.4 BLOOD GAS, [id number] 16:27:00 Test Item Value Reference Range Comments PH VENOUS (BEAKER) (test oyja=891) 7.36 7.32-7.42 PCO2 VENOUS (BEAKER) (test qfni=561) 41 mmHg 41-51 PO2 VENOUS (BEAKER) (test glgg=486) 18 mmHg 25-40 O2 SATURATION VENOUS (BEAKER) (test znnq=402) 26.4 % 40.0-70.0 HCO3 VENOUS (BEAKER) (test ylcy=130) 23 mmol/L 21-29 BASE EXCESS VENOUS (BEAKER) (test lxnx=446) -2.5 mmol/L -2.0-3.0 PATIENT TEMPERATURE (BEAKER) (test jioe=3132) 37.0 C POCT-GLUCOSE [id number] 16:20:00 Test Item Value Reference Range Comments POC-GLUCOSE METER (BEAKER) 156 mg/dL 70-110 TESTED AT [address] (test ufzb=1424) [place] [address] POCT-GLUCOSE [id number] 15:28:00 Test Item Value Reference Range Comments POC-GLUCOSE METER (BEAKER) 101 mg/dL 70-110 TESTED AT [address] (test uqkf=3337) [place] [address]
[2019-02-03] MEDS ORDERED: NA CHLORIDE 0.9% 1,000 ML ONE (00:38)
[2019-02-03 01:00] LABS: Absolute Lymphocytes (CBC) 2.9 K/uL (0.7-4.9); Basophils % 0.7 % (0-1.3); Eosinophils % 1.8 % (0-4.4); Lymphocytes % 35.7 % (15.3-44.8); MPV 7.8 fL (7.6-11.3); Monocytes % 6.2 % (3.3-12.3); RBC Red Blood Cell Count 5.07 M/uL (3.86-4.86)
[2019-02-03 01:12] LABS: ALT/SGPT 15 U/L (12-78); AST/SGOT 8 U/L (15-37); Albumin 3.9 g/dL (3.4-5.0); Alkaline Phosphatase 104 U/L (45-117); BUN Blood Urea Nitrogen 15 mg/dL (7-18); Bicarbonate 26 mmol/L (21-32); Bilirubin Total 0.3 mg/dL (0.2-1.0); Glucose Level 210 mg/dL (74-106); Lipase 113 U/L (73-393); Potassium 3.2 mmol/L (3.5-5.1); Protein, Total 7.9 g/dL (6.4-8.2); Sodium Level 139 mmol/L (136-145)
[2019-02-03 02:04] LABS: Urine Bacteria <20 /HPF (<20); Urine Culture Reflex Order REFLEXED; Urine RBC NONE SEEN /HPF (NONE SEEN)
--- NOTE | 2019-02-03 02:42 | EDPHYS ---
Physician Documentation [facility] Name: Salome Santacruz Age: 18 yrs Sex: Female : 2000 Arrival Date: 02/02/2019 Time: 23:57 Bed 18 Private MD: ED Physician Jos Davis HPI: 02/03 02:30 This 18 yrs old Female presents to ER via Ambulatory with complaints of gs Vomiting, High Blood Sugar. 02:30 The patient presents to the emergency department with nausea, vomiting. Onset: The gs symptoms/episode began/occurred yesterday. Possible causes: unknown. The symptoms are aggravated by nothing. The symptoms are alleviated by nothing. Associated signs and symptoms: Pertinent negatives: diarrhea, dysuria, fever. Severity of symptoms: At their worst the symptoms were moderate in the emergency department the symptoms are unchanged. The patient has experienced similar episodes in the past, a few times. worried lluvia was in dka. 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 - Social history:: Smoking status: Patient/guardian denies using tobacco. - Ebola Screening: : No symptoms or risks identified at this time. ROS: 02:30 All other systems are negative. gs Exam: 02:30 Head/Face: Normocephalic, atraumatic. Eyes: Pupils equal round and reactive to light, gs extra-ocular motions intact. Lids and lashes normal. Conjunctiva and sclera are non-icteric and not injected. Cornea within normal limits. Periorbital areas with no swelling, redness, or edema. ENT: Nares patent. No nasal discharge, no septal abnormalities noted. Tympanic membranes are normal and external auditory canals are clear. Oropharynx with no redness, swelling, or masses, exudates, or evidence of obstruction, uvula midline. Mucous membranes moist. Neck: Trachea midline, no thyromegaly or masses palpated, and no cervical lymphadenopathy. Supple, full range of motion without nuchal rigidity, or vertebral point tenderness. No Meningismus. Chest/axilla: Normal chest wall appearance and motion. Nontender with no deformity. No lesions are appreciated. Cardiovascular: Regular rate and rhythm with a normal S1 and S2. No gallops, murmurs, or rubs. Normal PMI, no JVD. No pulse deficits. Respiratory: Lungs have equal breath sounds bilaterally, clear to auscultation and percussion. No rales, rhonchi or wheezes noted. No increased work of breathing, no retractions or nasal flaring. Abdomen/GI: Soft, non-tender, with normal bowel sounds. No distension or tympany. No guarding or rebound. No evidence of tenderness throughout. Back: No spinal tenderness. No costovertebral tenderness. Full range of motion. Skin: Warm, dry with normal turgor. Normal color with no rashes, no lesions, and no evidence of cellulitis. MS/ Extremity: Pulses equal, no cyanosis. Neurovascular intact. Full, normal range of motion. Neuro: Awake and alert, GCS 15, oriented to person, place, time, and situation. Cranial nerves II-XII grossly intact. Motor strength 5/5 in all extremities. Sensory grossly intact. Cerebellar exam normal. Normal gait. 02:30 Constitutional: The patient appears alert, awake. Vital Signs: 00:02 BP 123 / 87; Pulse 107; Resp 18 S; Temp 98.4(O); Pulse Ox 99% on R/A; Weight 61.23 kg bb (R); Height 5 ft. 4 in. (162.56 cm) (R); Pain 9/10; 01:00 BP 106 / 67; Pulse 88; Resp 15; Pulse Ox 100% ; rr5 01:55 BP 116 / 72; Pulse 95; Resp 17; Pulse Ox 99% on R/A; rr5 03:00 BP 110 / 67; Pulse 100; Resp 17; Temp 97.4; Pulse Ox 100% ; Pain 4/10; rr5 00:02 Body Mass Index 23.17 (61.23 kg, 162.56 cm) MDM: 01:34 Patient medically screened. gs 02:30 Differential diagnosis: viral gastroenteritis, gastroenteritis. Differential diagnosis: gs dka. Data reviewed: vital signs, nurses notes. Response to treatment: the patient's symptoms have markedly improved after treatment, and as a result, I will discharge patient. 02/03 00:09 Order name: Urine Microscopic Only; Complete Time: 02:18 gs 02/03 00:09 Order name: CBC with Diff; Complete Time: 02:18 gs 02/03 00:09 Order name: CMP; Complete Time: 02:18 gs 02/03 00:09 Order name: Lipase; Complete Time: 02:18 gs 02/03 02:06 Order name: Urine Culture EDMS 02/03 02:43 Order name: Urine Dipstick--Ancillary (enter results) ar5 02/03 00:09 Order name: Urine Test (obtain specimen); Complete Time: 01:58 gs 02/03 00:09 Order name: Urine Dipstick-Ancillary (obtain specimen); Complete Time: 01:58 gs 02/03 02:43 Order name: Urine --Ancillary (enter results) ar5 Administered Medications: 00:30 Drug: NS 0.9% 1000 ml Route: IV; Rate: 1 bolus; Site: right forearm; rr5 01:20 Follow up: Response: No adverse reaction; IV Status: Completed infusion; IV Intake: rr5 1000ml 02:35 Drug: TORadol - Ketorolac 15 mg Route: IVP; Site: right forearm; rr5 03:00 Follow up: Response: No adverse reaction; pain score from 8/10 now 4/10 as verbalized rr5 by patient. Point of Care Testing: Blood Glucose: 00:04 Blood Glucose: 280 mg/dL; bb 00:30 Blood Glucose: 238 mg/dL; rr5 01:35 Blood Glucose: 82 mg/dL; rr5 03:00 Blood Glucose: 125 mg/dL; rr5 Ranges: Critical Glucose Levels:Adult <50 mg/dl or >400 mg/dl <40 mg/dl or >180 mg/dl Disposition: 02/03/19 02:40 Discharged to Home. Impression: Vomiting. - Condition is Stable. - Discharge Instructions: Nausea and Vomiting, Adult. - Prescriptions for Zofran 4 mg Oral Tablet - take 1 tablet by ORAL route every 12 hours As needed; 10 tablet. - Medication Reconciliation Form, Thank You Letter, Antibiotic Education, Prescription Opioid Use form. - Follow up: Private Physician; When: 1 - 2 days; Reason: Re-evaluation by your physician. Signatures: Dispatcher [employer] Florencia Samaniego RN RN Jos Finn MD MD gs Roque, Raymond, RN RN rr5 Corrections: (The following items were deleted from the chart) 03:00 02:40 02/03/2019 02:40 Discharged to Home. Impression: Vomiting. Condition is Stable. rr5 Forms are Medication Reconciliation Form, Thank You Letter, Antibiotic Education, Prescription Opioid Use. Follow up: Private Physician; When: 1 - 2 days; Reason: Re-evaluation by your physician. gs
--- NOTE | 2019-02-03 02:42 | ER ---
Nurse's Notes [facility] Name: Salome Santacruz Age: 18 yrs Sex: Female : 2000 Arrival Date: 02/02/2019 Time: 23:57 Bed 18 Private MD: Diagnosis: Vomiting Presentation: 02/02 23:57 Presenting complaint: Patient states: she thinks she is in DKA her blood sugar tonight bb was 438 and she gave herself 10 units of fast acting insulin and 30 units of Novolin but now she is having abdominal pain and she has vomited x 2. Transition of care: patient was not received from another setting of care. Onset of symptoms was February 03, 2019. Risk Assessment: Do you want to hurt yourself or someone else? Patient reports no desire to harm self or others. Initial Sepsis Screen: Does the patient meet any 2 criteria? No. Patient's initial sepsis screen is negative. Does the patient have a suspected source of infection? No. Patient's initial sepsis screen is negative. 23:57 Method Of Arrival: Ambulatory 23:57 Acuity: BRIAN 2 23:57 Care prior to arrival: Medication(s) given: insulin. rr5 Triage Assessment: 02/03 00:00 General: Appears in no apparent distress. uncomfortable, Behavior is calm, cooperative, rr5 appropriate for age. GI: Reports lower abdominal pain, upper abdominal pain, vomiting. 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 - Social history:: Smoking status: Patient/guardian denies using tobacco. - Ebola Screening: : No symptoms or risks identified at this time. Screenin:30 Abuse screen: Denies threats or abuse. Denies injuries from another. Nutritional rr5 screening: No deficits noted. Tuberculosis screening: No symptoms or risk factors identified. Fall Risk IV access (20 points). Total [place] Fall Scale indicates No Risk (0-24 pts). Assessment: 00:00 General: Appears in no apparent distress. uncomfortable, Behavior is calm, cooperative, rr5 appropriate for age. 00:00 Pain: Complains of pain in abdomen Pain does not radiate. Pain currently is 9 out of 10 rr5 on a pain scale. Quality of pain is described as aching, Pain began gradually, Is intermittent. Neuro: Level of Consciousness is awake, alert, obeys commands, Oriented to person, place, time, situation, Appropriate for age Reports weakness. Cardiovascular: Capillary refill < 3 seconds Patient's skin is warm and dry. Respiratory: Airway is patent Respiratory effort is even, unlabored, Respiratory pattern is regular, symmetrical. GI: Abdomen is flat, Reports lower abdominal pain, upper abdominal pain, vomiting. : No signs and/or symptoms were reported regarding the genitourinary system. EENT: No signs and/or symptoms were reported regarding the EENT system. Derm: Skin is intact, Skin temperature is warm. Musculoskeletal: Circulation, motion, and sensation intact. Capillary refill < 3 seconds, Range of motion: intact in all extremities. 00:50 Reassessment: Patient appears in no apparent distress at this time. Patient is alert, rr5 oriented x 3, equal unlabored respirations, skin warm/dry/pink. eyes closed on bed breathing spontaneously at room air. 01:35 Reassessment: CBG 82mg/dl ED provider aware, snacks given. rr5 02:55 Reassessment: Patient appears in no apparent distress at this time. Patient is alert, rr5 oriented x 3, equal unlabored respirations, skin warm/dry/pink. CBG 125 mg/DL rechecked. discharge instruction given and explained without complaints made. Patient states feeling better. Patient states symptoms have improved. Vital Signs: 00:02 BP 123 / 87; Pulse 107; Resp 18 S; Temp 98.4(O); Pulse Ox 99% on R/A; Weight 61.23 kg bb (R); Height 5 ft. 4 in. (162.56 cm) (R); Pain 9/10; 01:00 BP 106 / 67; Pulse 88; Resp 15; Pulse Ox 100% ; rr5 01:55 BP 116 / 72; Pulse 95; Resp 17; Pulse Ox 99% on R/A; rr5 03:00 BP 110 / 67; Pulse 100; Resp 17; Temp 97.4; Pulse Ox 100% ; Pain 4/10; rr5 00:02 Body Mass Index 23.17 (61.23 kg, 162.56 cm) bb ED Course: 02/02 23:57 Patient arrived in ED. bb 02/03 00:01 Triage completed. bb 00:02 Arm band placed on Patient placed in an exam room, on a stretcher, on pulse oximetry. bb Family accompanied patient. 00:05 Patient has correct armband on for positive identification. Placed in gown. Bed in low rr5 position. Call light in reach. Side rails up X2. Pulse ox on. NIBP on. 00:08 Jos Davis MD is Attending Physician. gs 00:21 Bradley Tipton RN is Primary Nurse. rr5 00:30 Inserted saline lock: 18 gauge in right forearm, using aseptic technique. Blood rr5 collected. 02:55 Assist provider with bone marrow aspiration. IV discontinued, intact, bleeding rr5 controlled, No redness/swelling at site. Pressure dressing applied. Administered Medications: 00:30 Drug: NS 0.9% 1000 ml Route: IV; Rate: 1 bolus; Site: right forearm; rr5 01:20 Follow up: Response: No adverse reaction; IV Status: Completed infusion; IV Intake: rr5 1000ml 02:35 Drug: TORadol - Ketorolac 15 mg Route: IVP; Site: right forearm; rr5 03:00 Follow up: Response: No adverse reaction; pain score from 8/10 now 4/10 as verbalized rr5 by patient. Point of Care Testing: Blood Glucose: 00:04 Blood Glucose: 280 mg/dL; bb 00:30 Blood Glucose: 238 mg/dL; rr5 01:35 Blood Glucose: 82 mg/dL; rr5 03:00 Blood Glucose: 125 mg/dL; rr5 Ranges: Intake: 01:20 IV: 1000ml; Total: 1000ml. rr5 Outcome: 02:40 Discharge ordered by . gs 02:55 Discharged to home ambulatory, with family. rr5 02:55 Condition: stable 02:55 Discharge instructions given to patient, Instructed on discharge instructions, follow up and referral plans. Demonstrated understanding of instructions, follow-up care. 03:00 Patient left the ED. rr5 Signatures: Florencia Giron RN RN bb Jos Davis MD MD gs Roque, Raymond, RN RN rr5
[2019-02-03] MEDS ORDERED: KETOROLAC 30 MG/ML INJ ONE (02:51)
[2019-02-03 03:16] LABS: Urine Blood NEGATIVE (NEG); Urine Glucose 2+ (NEG); Urine Protein NEGATIVE (NEG); Urine Specific Gravity 1.015 (1.005-1.030)
== END 2019-02-03 03:00 | disposition home or self-care (01) ==
LOC: ER 23:46
DX: R11.10 Vomiting, unspecified (principal); E11.9 Type 2 diabetes mellitus without complications; F41.9 Anxiety disorder, unspecified; F32.9 Major depressive disorder, single episode, unspecified; Z79.4 Long term (current) use of insulin; Z88.6 Allergy status to analgesic agent; Z88.8 Allergy status to other drugs, medicaments and biological substances; Z91.018 Allergy to other foods; Z91.040 Latex allergy status
CPT/HCPCS: 36415; 80053; 81003; 81015; 81025; 82962; 83690; 85025; 87086; 87088; 96361; 96374; 99285; J7030

== ENCOUNTER 2019-03-22 07:40 | Emergency (ER) | payer SELFPAY ==
--- OUTSIDE RECORDS SUMMARY | 2019-03-22 07:42 | XMS REPORT | Clinical Summary ---
:2000 Author Organization [facility] Address [address] [place] [address] Care Team Providers Name Role Phone Sohail Xiong MD Primary Care Provider Unavailable Allergies Active Allergy Reactions Severity Noted Date Comments Latex Rash Low 04/07/2017 Acetaminophen-Pamabrom Rash Low 04/07/2017 Bumps in mouth Onion Hives 05/18/2017 Promethazine Anxiety Low 04/07/2017 Severe anxiety attacks Tree Nut 06/17/2017 Medications Medication Sig Dispensed Refills Start End Date Status Date insulin regular (HUMULIN If PT=954-187, give 1unit 10 mL 3 Active R,NOVOLIN R) 100 unit/mL If EE=069-515, give 2units 7 injection If UI=457-956, give 4units If KC=545-577, give 6units If CL=612-390, give 8units. medroxyPROGESTERone Inject 150 mg 0 [...] Not on file Results Not on fileafter 03/21/2018 Insurance Payer Benefit Plan / Group Subscriber ID Type Phone Address OTHER-COMMERCIAL GENERIC COMMERCIAL xxxxxxxxx Advance Directives For more information, please contact:[address] [phone] Code Status Date Activated Date Inactivated Comments Full Code 06/17/2017 10:54 AM 06/19/2017 2:40 PM This code status was determined by: Patient Full Code 05/18/2017 7:25 AM 05/19/2017 7:18 PM This code status was determined by: Patient Full Code 04/07/2017 3:28 PM 04/09/2017 7:53 PM This code status was determined by: Patient
--- OUTSIDE RECORDS SUMMARY | 2019-03-22 07:44 | XMS REPORT ---
:2000 [facility] Address [address] [place] [address] Care Team Providers Name Role Phone DAVY [...] of the pelvis was performed on the [employer] Preirus.Comparison study: No prior study.FINDINGS:Uterus: 8.2 x [...] (BEAKER) (test 230 mg/dL 70-110 TESTED AT [facility] [address] hsvd=5189) [facility] [address] POCT-GLUCOSE [id number] 08:32:00 Test Item Value Reference Range Comments POC-GLUCOSE METER (BEAKER) 70 mg/dL 70-110 TESTED AT [facility] [address] [facility] (test guiz=6294) WAY [facility] [address] POCT-GLUCOSE [id number] 05:13:00 Test Item Value Reference Range Comments POC-GLUCOSE METER (BEAKER) 152 mg/dL 70-110 TESTED AT [facility] [address] [facility] (test dpug=9954) WAY [facility] [address] POCT-GLUCOSE [id number] 04:14:00 Test Item Value Reference Range Comments POC-GLUCOSE METER (BEAKER) 55 mg/dL 70-110 TESTED AT [facility] [address] [facility] (test oyoq=6354) WAY [facility] [address] POCT-GLUCOSE [id number] 20:37:00 Test Item Value Reference Range Comments POC-GLUCOSE METER (BEAKER) 204 mg/dL 70-110 TESTED AT [facility] [address] [facility] (test wcnc=4142) WAY [facility] [address] POCT-GLUCOSE [id number] 19:01:00 Test Item Value Reference Range Comments POC-GLUCOSE METER (BEAKER) 88 mg/dL 70-110 TESTED AT [facility] [address] [facility] (test hqyo=8827) WAY [facility] [address] POCT-GLUCOSE [id number] 17:27:00 Test Item Value Reference Range Comments POC-GLUCOSE METER (BEAKER) 253 mg/dL 70-110 TESTED AT [facility] [address] [facility] (test ykmd=3880) WAY [facility] [address] POCT-GLUCOSE [id number] 15:36:00 Test Item Value Reference Range Comments POC-GLUCOSE METER (BEAKER) 366 mg/dL 70-110 TESTED AT [facility] [address] [facility] (test jxrl=0368) WAY [facility] [address] POCT-GLUCOSE [id number] 11:51:00 Test Item Value Reference Range Comments POC-GLUCOSE METER (BEAKER) 194 mg/dL 70-110 TESTED AT [facility] [address] [facility] (test hznd=2564) WAY [facility] [address] POCT-GLUCOSE [id number] 10:19:00 Test Item Value Reference Range Comments POC-GLUCOSE METER (BEAKER) 147 mg/dL 70-110 TESTED AT [address] (test ryqk=9210) [facility] [address] BASIC METABOLIC [id number] 09:23:00 Test Item Value Reference Range Comments SODIUM (BEAKER) (test 135 meq/L 135-148 bncm=511) POTASSIUM (BEAKER) (test 3.5 meq/L 3.5-5.5 mmmo=737) CHLORIDE (BEAKER) (test 108 meq/L 98-106 rxun=265) CO2 (BEAKER) (test 20 meq/L 20-31 itxh=435) BLOOD UREA NITROGEN 8 mg/dL 10-26 (BEAKER) (test jcwx=183) CREATININE (BEAKER) (test 0.90 mg/dL 0.50-1.20 tfhf=587) GLUCOSE RANDOM (BEAKER) 164 mg/dL 70-110 (test izlq=702) CALCIUM (BEAKER) (test 8.6 mg/dL 8.5-10.5 wuru=987) EGFR (BEAKER) (test 81 mL/min/1.73 sq m ESTIMATED GFR IS NOT maau=9180) ACCURATE CREATININE CLEARANCE IN PREDICTING GLOMERULAR FILTRATION RATE. ESTIMATED GFR IS NOT APPLICABLE FOR DIALYSIS PATIENTS. POCT-GLUCOSE [id number] 08:02:00 Test Item Value Reference Range Comments POC-GLUCOSE METER (BEAKER) 161 mg/dL 70-110 TESTED AT [address] (test nzdl=0156) [place] [address] POCT-GLUCOSE [id number] 07:03:00 Test Item Value Reference Range Comments POC-GLUCOSE METER (BEAKER) 151 mg/dL 70-110 TESTED AT [address] (test gygq=1326) [place] [address] POCT-GLUCOSE [id number] 05:08:00 Test Item Value Reference Range Comments POC-GLUCOSE METER (BEAKER) 158 mg/dL 70-110 TESTED AT [address] (test uche=7120) [facility] [address] BASIC METABOLIC [id number] 04:51:00 Test Item Value Reference Range Comments SODIUM (BEAKER) (test 137 meq/L 135-148 hyyr=010) POTASSIUM (BEAKER) (test 3.3 meq/L 3.5-5.5 sdxh=449) CHLORIDE (BEAKER) (test 111 meq/L 98-106 nqns=136) CO2 (BEAKER) (test 15 meq/L 20-31 racs=842) BLOOD UREA NITROGEN 9 mg/dL 10-26 (BEAKER) (test cqgd=036) CREATININE (BEAKER) (test 0.84 mg/dL 0.50-1.20 djud=728) GLUCOSE RANDOM (BEAKER) 160 mg/dL 70-110 (test uajh=886) CALCIUM (BEAKER) (test 8.3 mg/dL 8.5-10.5 aczh=051) EGFR (BEAKER) (test 87 mL/min/1.73 sq m ESTIMATED GFR IS NOT fscy=8749) ACCURATE CREATININE CLEARANCE IN PREDICTING GLOMERULAR FILTRATION RATE. ESTIMATED GFR IS NOT APPLICABLE FOR DIALYSIS PATIENTS. POCT-GLUCOSE [id number] 03:03:00 Test Item Value Reference Range Comments POC-GLUCOSE METER (BEAKER) 153 mg/dL 70-110 TESTED AT [facility] [id number] [place] [address] (test csrz=6909) [facility] [address] POCT-GLUCOSE [id number] 02:09:00 Test Item Value Reference Range Comments POC-GLUCOSE METER (BEAKER) 159 mg/dL 70-110 TESTED AT [facility] [address] [facility] (test bykv=9528) [facility] [address] POCT-GLUCOSE [id number] 01:08:00 Test Item Value Reference Range Comments POC-GLUCOSE METER (BEAKER) 174 mg/dL 70-110 TESTED AT [facility] [address] [facility] (test xhok=7405) [facility] [address] BASIC METABOLIC [id number] 00:38:00 Test Item Value Reference Range Comments SODIUM (BEAKER) (test 137 meq/L 135-148 jjgg=426) POTASSIUM (BEAKER) (test 3.8 meq/L 3.5-5.5 cllu=645) CHLORIDE (BEAKER) (test 111 meq/L 98-106 apnp=666) CO2 (BEAKER) (test 12 meq/L 20-31 vaoj=919) BLOOD UREA NITROGEN 9 mg/dL 10-26 (BEAKER) (test xtgp=488) CREATININE (BEAKER) (test 0.91 mg/dL 0.50-1.20 bmvs=779) GLUCOSE RANDOM (BEAKER) 173 mg/dL 70-110 (test ptgd=870) CALCIUM (BEAKER) (test 8.4 mg/dL 8.5-10.5 wmtm=486) EGFR (BEAKER) (test 80 mL/min/1.73 sq m ESTIMATED GFR IS NOT ksgm=4673) ACCURATE CREATININE CLEARANCE IN PREDICTING GLOMERULAR FILTRATION RATE. ESTIMATED GFR IS NOT APPLICABLE FOR DIALYSIS PATIENTS. POCT-GLUCOSE [id number] 00:37:00 Test Item Value Reference Range Comments POC-GLUCOSE METER (BEAKER) 198 mg/dL 70-110 TESTED AT [facility] [id number] [place] [address] (test syqc=4504) WAY [facility] [address] POCT-GLUCOSE [id number] 00:14:00 Test Item Value Reference Range Comments POC-GLUCOSE METER (BEAKER) 162 mg/dL 70-110 TESTED AT [facility] [id number] [place] [address] (test ozuv=2101) [facility] [address] POCT-GLUCOSE [id number] 23:39:00 Test Item Value Reference Range Comments POC-GLUCOSE METER (BEAKER) 149 mg/dL 70-110 TESTED AT [facility] [id number] [place] [address] (test hqhx=4105) [facility] [address] POCT-GLUCOSE [id number] 23:10:00 Test Item Value Reference Range Comments POC-GLUCOSE METER (BEAKER) 134 mg/dL 70-110 TESTED AT [facility] [id number] [place] [address] (test bidx=8327) [facility] [address] POCT-GLUCOSE [id number] 22:41:00 Test Item Value Reference Range Comments POC-GLUCOSE METER (BEAKER) 112 mg/dL 70-110 TESTED AT [facility] [id number] [place] [address] (test cmjm=8578) [facility] [address] POCT-GLUCOSE [id number] 21:59:00 Test Item Value Reference Range Comments POC-GLUCOSE METER (BEAKER) 95 mg/dL 70-110 TESTED AT [facility] [id number] [place] [address] (test ntzx=3703) [facility] [address] POCT-GLUCOSE [id number] 21:39:00 Test Item Value Reference Range Comments POC-GLUCOSE METER (BEAKER) 110 mg/dL 70-110 TESTED AT [address] (test adzi=5345) WAY [facility] [address] POCT-GLUCOSE [id number] 21:07:00 Test Item Value Reference Range Comments POC-GLUCOSE METER (BEAKER) 114 mg/dL 70-110 TESTED AT [facility] [id number] [place] [address] (test obfs=0849) [place] [address] BASIC METABOLIC [id number] 20:47:00 Test Item Value Reference Range Comments SODIUM (BEAKER) (test 139 meq/L 135-148 azwb=905) POTASSIUM (BEAKER) (test 3.7 meq/L 3.5-5.5 brvx=133) CHLORIDE (BEAKER) (test 112 meq/L 98-106 dvsi=478) CO2 (BEAKER) (test 12 meq/L 20-31 iyjg=103) BLOOD UREA NITROGEN 9 mg/dL 10-26 (BEAKER) (test kfwn=137) CREATININE (BEAKER) (test 1.03 mg/dL 0.50-1.20 mdfr=189) GLUCOSE RANDOM (BEAKER) 162 mg/dL 70-110 (test syya=587) CALCIUM (BEAKER) (test 8.6 mg/dL 8.5-10.5 rmbk=652) EGFR (BEAKER) (test 69 mL/min/1.73 sq m ESTIMATED GFR IS NOT qztn=3284) ACCURATE CREATININE CLEARANCE IN PREDICTING GLOMERULAR FILTRATION RATE. ESTIMATED GFR IS NOT APPLICABLE FOR DIALYSIS PATIENTS. POCT-GLUCOSE [id number] 20:17:00 Test Item Value Reference Range Comments POC-GLUCOSE METER (BEAKER) 176 mg/dL 70-110 TESTED AT [facility] [id number] [place] [address] (test ljbc=0343) WAY [facility] [address] [id number] 19:09:00 Test Item Value Reference Range Comments GLUCOSE RANDOM (BEAKER) (test czeb=265) 230 mg/dL 70-110 If last glucose was less than 500, may do bedside glucose instead of serum glucose.POCT-GLUCOSE [id number] 18:53:00 Test Item Value Reference Range Comments POC-GLUCOSE METER (BEAKER) 212 mg/dL 70-110 TESTED AT [facility] [address] [facility] (test joci=5872) [place] [address] POCT-GLUCOSE [id number] 17:14:00 Test Item Value Reference Range Comments POC-GLUCOSE METER (BEAKER) 145 mg/dL 70-110 TESTED AT [facility] [address] [facility] (test dbgw=2154) [facility] [address] BASIC METABOLIC [id number] 16:51:00 Test Item Value Reference Range Comments SODIUM (BEAKER) (test 140 meq/L 135-148 uvlp=569) POTASSIUM (BEAKER) (test 3.9 meq/L 3.5-5.5 aznu=330) CHLORIDE (BEAKER) (test 114 meq/L 98-106 dyxi=632) CO2 (BEAKER) (test 14 meq/L 20-31 icnn=064) BLOOD UREA NITROGEN 10 mg/dL 10-26 (BEAKER) (test wekb=306) CREATININE (BEAKER) (test 0.94 mg/dL 0.50-1.20 bmrn=473) GLUCOSE RANDOM (BEAKER) 126 mg/dL 70-110 (test drer=280) CALCIUM (BEAKER) (test 8.4 mg/dL 8.5-10.5 xilu=096) EGFR (BEAKER) (test 77 mL/min/1.73 sq m ESTIMATED GFR IS NOT bngo=1687) ACCURATE CREATININE CLEARANCE IN PREDICTING GLOMERULAR FILTRATION RATE. ESTIMATED GFR IS NOT APPLICABLE FOR DIALYSIS PATIENTS. If last glucose was less than 500, may do bedside glucose instead of serum glucose.[id number] 16:47:00 Test Item Value Reference Range Comments GLUCOSE RANDOM (BEAKER) (test tctz=148) 126 mg/dL 70-110 If last glucose was less than 500, may do bedside glucose instead of serum glucose.POCT-GLUCOSE [id number] 16:04:00 Test Item Value Reference Range Comments POC-GLUCOSE METER (BEAKER) 119 mg/dL 70-110 TESTED AT [facility] [address] [facility] (test letc=4893) WAY [facility] [address] [id number] 14:30:00 Test Item Value Reference Range Comments POTASSIUM (BEAKER) (test feif=380) 3.9 meq/L 3.5-5.5 If last glucose was less than 500, may do bedside glucose instead of serum glucose.[id number] 14:30:00 Test Item Value Reference Range Comments GLUCOSE RANDOM (BEAKER) (test xsel=424) 190 mg/dL 70-110 If last glucose was less than 500, may do bedside glucose instead of serum glucose.POCT-GLUCOSE [id number] 14:05:00 Test Item Value Reference Range Comments POC-GLUCOSE METER (BEAKER) 194 mg/dL 70-110 TESTED AT [facility] [address] [facility] (test lpkk=2549) WAY [facility] [address] POCT-GLUCOSE [id number] 13:15:00 Test Item Value Reference Range Comments POC-GLUCOSE METER (BEAKER) 229 mg/dL 70-110 TESTED AT [facility] [address] [facility] (test ijer=0338) WAY [facility] [address] BASIC METABOLIC [id number] 12:44:00 Test Item Value Reference Range Comments SODIUM (BEAKER) (test 136 meq/L 135-148 rsnt=342) POTASSIUM (BEAKER) (test 4.0 meq/L 3.5-5.5 xbwg=927) CHLORIDE (BEAKER) (test 111 meq/L 98-106 wgnw=828) CO2 (BEAKER) (test 12 meq/L 20-31 dmeb=778) BLOOD UREA NITROGEN 12 mg/dL 10-26 (BEAKER) (test lqqs=503) CREATININE (BEAKER) (test 0.99 mg/dL 0.50-1.20 tfge=335) GLUCOSE RANDOM (BEAKER) 258 mg/dL 70-110 (test bwca=521) CALCIUM (BEAKER) (test 8.1 mg/dL 8.5-10.5 lsml=954) EGFR (BEAKER) (test 72 mL/min/1.73 sq m ESTIMATED GFR IS NOT qemz=5730) ACCURATE CREATININE CLEARANCE IN PREDICTING GLOMERULAR FILTRATION RATE. ESTIMATED GFR IS NOT APPLICABLE FOR DIALYSIS PATIENTS. If last glucose was less than 500, may do bedside glucose instead of serum glucose.[id number] 12:43:00 Test Item Value Reference Range Comments GLUCOSE RANDOM (BEAKER) (test xwol=643) 258 mg/dL 70-110 If last glucose was less than 500, may do bedside glucose instead of serum glucose.POCT-GLUCOSE [id number] 12:03:00 Test Item Value Reference Range Comments POC-GLUCOSE METER (BEAKER) 238 mg/dL 70-110 TESTED AT [facility] [address] [facility] (test cjfy=6647) [facility] [address] POCT-GLUCOSE [id number] 11:05:00 Test Item Value Reference Range Comments POC-GLUCOSE METER (BEAKER) 261 mg/dL 70-110 TESTED AT [facility] [address] [facility] (test mtfk=7586) [facility] [address] HEMOGLOBIN [id number] 10:07:00 Test Item Value Reference Range Comments HEMOGLOBIN A1C (BEAKER) (test tuyx=441) > % 4.3-6.1 [id number] 10:00:00 Test Item Value Reference Range Comments GLUCOSE RANDOM (BEAKER) (test rlvu=525) 441 mg/dL 70-110 If last glucose was less than 500, may do bedside glucose instead of serum glucose.[id number] 09:55:00 Test Item Value Reference Range Comments POTASSIUM (BEAKER) (test vezp=788) 4.1 meq/L 3.5-5.5 If last glucose was less than 500, may do bedside glucose instead of serum glucose.POCT-GLUCOSE [id number] 09:18:00 Test Item Value Reference Range Comments POC-GLUCOSE METER (BEAKER) > mg/dL 70-110 OUTSIDE MEASURING RANGETESTED AT (test wwvx=7552) [facility] [address] [facility] [address] [id number] 09:15:00 Test Item Value Reference Range Comments GLUCOSE RANDOM (BEAKER) (test pdge=341) 585 mg/dL 70-110 If last glucose was less than 500, may do bedside glucose instead of serum glucose.COMPREHENSIVE METABOLIC [id number] 08:30:00 Test Item Value Reference Range Comments TOTAL PROTEIN (BEAKER) 8.2 gm/dL 6.0-8.5 (test bdwz=876) ALBUMIN (BEAKER) (test 4.5 g/dL 3.5-5.0 hgej=0898) ALKALINE PHOSPHATASE 135 U/L 30-115 (BEAKER) (test ycis=083) BILIRUBIN TOTAL (BEAKER) 0.3 mg/dL 0.1-1.3 (test duaj=960) SODIUM (BEAKER) (test 130 meq/L 135-148 qaks=041) POTASSIUM (BEAKER) (test 4.6 meq/L 3.5-5.5 toki=953) CHLORIDE (BEAKER) (test 96 meq/L 98-106 oqdg=554) CO2 (BEAKER) (test 10 meq/L 20-31 lljm=422) BLOOD UREA NITROGEN 16 mg/dL 10-26 (BEAKER) (test bzxk=538) CREATININE (BEAKER) (test 1.49 mg/dL 0.50-1.20 bdav=905) GLUCOSE RANDOM (BEAKER) 637 mg/dL 70-110 (test fadc=909) CALCIUM (BEAKER) (test 9.5 mg/dL 8.5-10.5 sukv=578) AST (SGOT) (BEAKER) (test 12 U/L 5-40 kbby=133) ALT (SGPT) (BEAKER) (test 14 U/L 6-50 tfvx=599) EGFR (BEAKER) (test 45 mL/min/1.73 sq m ESTIMATED GFR IS NOT hxmj=1827) ACCURATE CREATININE CLEARANCE IN PREDICTING GLOMERULAR FILTRATION RATE. ESTIMATED GFR IS NOT APPLICABLE FOR DIALYSIS PATIENTS. CBC W/PLT COUNT & AUTO [id number] 08:29:00 Test Item Value Reference Range Comments WHITE BLOOD CELL COUNT (BEAKER) (test fila=463) 7.7 K/ L 4.0-10.0 RED BLOOD CELL COUNT (BEAKER) (test wzsj=833) 5.18 M/ L 4.00-5.00 HEMOGLOBIN (BEAKER) (test iavj=751) 14.6 GM/DL 12.0-15.0 HEMATOCRIT (BEAKER) (test fnmi=500) 43.9 % 36.0-45.0 MEAN CORPUSCULAR VOLUME (BEAKER) (test mywy=086) 84.8 fL 82.0-99.0 MEAN CORPUSCULAR HEMOGLOBIN (BEAKER) (test 28.1 pg 27.0-33.0 vfai=319) MEAN CORPUSCULAR HEMOGLOBIN CONC (BEAKER) (test 33.1 GM/DL 32.0-36.0 prph=961) RED CELL DISTRIBUTION WIDTH (BEAKER) (test 12.3 % 12.0-15.0 rbli=797) PLATELET COUNT (BEAKER) (test yrgu=294) 421 K/CU MM 150-430 MEAN PLATELET VOLUME (BEAKER) (test acay=976) 8.0 fL 6.5-10.5 NUCLEATED RED BLOOD CELLS (BEAKER) (test 0 /100 WBC 0-0 zdkw=417) NEUTROPHILS RELATIVE PERCENT (BEAKER) (test 50 % kcyc=695) LYMPHOCYTES RELATIVE PERCENT (BEAKER) (test 45 % ageq=170) MONOCYTES RELATIVE PERCENT (BEAKER) (test 5 % irnx=755) EOSINOPHILS RELATIVE PERCENT (BEAKER) (test 1 % wwpq=222) BASOPHILS RELATIVE PERCENT (BEAKER) (test 1 % bmdn=206) NEUTROPHILS ABSOLUTE COUNT (BEAKER) (test 3.80 K/ L 1.80-8.00 dmrq=797) LYMPHOCYTES ABSOLUTE COUNT (BEAKER) (test 3.40 K/ L 1.48-4.50 qzwe=147) MONOCYTES ABSOLUTE COUNT (BEAKER) (test 0.40 K/ L 0.00-1.30 wncw=032) EOSINOPHILS ABSOLUTE COUNT (BEAKER) (test 0.10 K/ L 0.00-0.50 rfng=392) BASOPHILS ABSOLUTE COUNT (BEAKER) (test 0.00 K/ L 0.00-0.20 durr=937) [id number] 08:25:00 Test Item Value Reference Range Comments PHOSPHORUS (BEAKER) (test xwpx=826) 4.0 mg/dL 2.5-4.5 [id number] 08:25:00 Test Item Value Reference Range Comments MAGNESIUM (BEAKER) (test hdwn=409) 2.0 mg/dL 1.5-3.0 SCREEN, [id number] 08:16:00 Test Item Value Reference Range Comments TEST URINE (BEAKER) (test japl=363) Negative URINALYSIS W/ [id number] 08:16:00 Test Item Value Reference Range Comments COLOR (BEAKER) (test tnuw=374) Colorless CLARITY (BEAKER) (test nggf=427) Clear SPECIFIC GRAVITY UA (BEAKER) (test gxfi=219) 1.025 1.001-1.035 PH UA (BEAKER) (test bvzp=216) 5.0 5.0-8.0 PROTEIN UA (BEAKER) (test lonm=125) Negative Negative GLUCOSE UA (BEAKER) (test kody=569) >500 mg/dL Negative KETONES UA (BEAKER) (test jrsp=159) 80 mg/dL Negative BILIRUBIN UA (BEAKER) (test rfxu=906) Negative Negative BLOOD UA (BEAKER) (test uuwh=680) Negative Negative NITRITE UA (BEAKER) (test cote=730) Negative Negative LEUKOCYTE ESTERASE UA (BEAKER) (test fbxy=241) Negative Negative UROBILINOGEN UA (BEAKER) (test dmpo=202) < mg/dL 0.2-1.0 RBC UA (BEAKER) (test fdsp=211) 0 /HPF WBC UA (BEAKER) (test nuds=020) < /HPF MUCUS (BEAKER) (test fzgb=2646) Rare SOURCE(BEAKER) (test umtl=8883) KETONE, [id number] 08:09:00 Test Item Value Reference Range Comments KETONES, BLOOD (BEAKER) (test qlaz=0247) 6.1 mmol/L <0.4 PH, [id number] 08:08:00 Test Item Value Reference Range Comments PH VENOUS (BEAKER) (test spgo=518) 7.18 7.32-7.42 BLOOD [id number] 13:00:00 Test Item Value Reference Range Comments CULTURE (BEAKER) (test uoch=9935) No growth in 5 days BLOOD [id number] 13:00:00 Test Item Value Reference Range Comments CULTURE (BEAKER) (test woyj=6517) No growth in 5 days POCT-GLUCOSE [id number] 17:12:00 Test Item Value Reference Range Comments POC-GLUCOSE METER (BEAKER) 136 mg/dL 70-110 TESTED AT [facility] [address] [facility] (test kkjn=8042) WAY [facility] [address] POCT-GLUCOSE [id number] 16:37:00 Test Item Value Reference Range Comments POC-GLUCOSE METER (BEAKER) 45 mg/dL 70-110 TESTED AT [facility] [address] [facility] (test lklv=3590) WAY [facility] [address] POCT-GLUCOSE [id number] 11:32:00 Test Item Value Reference Range Comments POC-GLUCOSE METER (BEAKER) 98 mg/dL 70-110 TESTED AT [facility] [address] [facility] (test pdma=6942) WAY [facility] [address] POCT-GLUCOSE [id number] 06:45:00 Test Item Value Reference Range Comments POC-GLUCOSE METER (BEAKER) 85 mg/dL 70-110 TESTED AT [facility] [address] [facility] (test lkrz=4110) [facility] [address] [id number] 06:25:00 Test Item Value Reference Range Comments PHOSPHORUS (BEAKER) (test cwcw=724) 2.4 mg/dL 2.5-4.5 [id number] 06:25:00 Test Item Value Reference Range Comments MAGNESIUM (BEAKER) (test qnsz=742) 2.4 mg/dL 1.5-3.0 BASIC METABOLIC [id number] 06:25:00 Test Item Value Reference Range Comments SODIUM (BEAKER) (test 138 meq/L 135-148 nebm=821) POTASSIUM (BEAKER) (test 3.9 meq/L 3.5-5.5 jlhq=712) CHLORIDE (BEAKER) (test 110 meq/L 98-106 uowg=202) CO2 (BEAKER) (test 19 meq/L 20-31 wsms=483) BLOOD UREA NITROGEN 3 mg/dL 10-26 (BEAKER) (test sixh=623) CREATININE (BEAKER) (test 0.79 mg/dL 0.50-1.20 lwfl=813) GLUCOSE RANDOM (BEAKER) 104 mg/dL 70-110 (test jppv=473) CALCIUM (BEAKER) (test 8.6 mg/dL 8.5-10.5 mhxm=467) EGFR (BEAKER) (test 94 mL/min/1.73 sq m ESTIMATED GFR IS NOT qfdl=9025) ACCURATE CREATININE CLEARANCE IN PREDICTING GLOMERULAR FILTRATION RATE. ESTIMATED GFR IS NOT APPLICABLE FOR DIALYSIS PATIENTS. CBC W/PLT COUNT & AUTO [id number] 05:58:00 Test Item Value Reference Range Comments WHITE BLOOD CELL COUNT (BEAKER) (test mjdl=336) 9.2 K/ L 4.0-10.0 RED BLOOD CELL COUNT (BEAKER) (test pxmm=130) 4.36 M/ L 4.00-5.00 HEMOGLOBIN (BEAKER) (test hwed=407) 12.6 GM/DL 12.0-15.0 HEMATOCRIT (BEAKER) (test hqbw=749) 37.0 % 36.0-45.0 MEAN CORPUSCULAR VOLUME (BEAKER) (test wbap=742) 84.8 fL 82.0-99.0 MEAN CORPUSCULAR HEMOGLOBIN (BEAKER) (test 29.0 pg 27.0-33.0 xxiy=090) MEAN CORPUSCULAR HEMOGLOBIN CONC (BEAKER) (test 34.2 GM/DL 32.0-36.0 jegh=756) RED CELL DISTRIBUTION WIDTH (BEAKER) (test 12.5 % 12.0-15.0 igum=265) PLATELET COUNT (BEAKER) (test fgom=174) 359 K/CU MM 150-430 MEAN PLATELET VOLUME (BEAKER) (test zqbt=656) 7.2 fL 6.5-10.5 NUCLEATED RED BLOOD CELLS (BEAKER) (test 0 /100 WBC 0-0 ntmz=242) NEUTROPHILS RELATIVE PERCENT (BEAKER) (test 53 % jyoh=718) LYMPHOCYTES RELATIVE PERCENT (BEAKER) (test 40 % iuqq=751) MONOCYTES RELATIVE PERCENT (BEAKER) (test 5 % pagx=427) EOSINOPHILS RELATIVE PERCENT (BEAKER) (test 2 % lojt=307) BASOPHILS RELATIVE PERCENT (BEAKER) (test 0 % jajt=973) NEUTROPHILS ABSOLUTE COUNT (BEAKER) (test 4.90 K/ L 1.80-8.00 gknd=290) LYMPHOCYTES ABSOLUTE COUNT (BEAKER) (test 3.70 K/ L 1.48-4.50 kcve=876) MONOCYTES ABSOLUTE COUNT (BEAKER) (test 0.50 K/ L 0.00-1.30 skks=916) EOSINOPHILS ABSOLUTE COUNT (BEAKER) (test 0.20 K/ L 0.00-0.50 xzmt=906) BASOPHILS ABSOLUTE COUNT (BEAKER) (test 0.00 K/ L 0.00-0.20 tort=783) POCT-GLUCOSE [id number] 05:38:00 Test Item Value Reference Range Comments POC-GLUCOSE METER (BEAKER) 102 mg/dL 70-110 TESTED AT [address] (test sipx=9613) [facility] [address] POCT-GLUCOSE [id number] 03:29:00 Test Item Value Reference Range Comments POC-GLUCOSE METER (BEAKER) 163 mg/dL 70-110 TESTED AT [address] (test ypnx=7983) [facility] [address] POCT-GLUCOSE [id number] 03:29:00 Test Item Value Reference Range Comments POC-GLUCOSE METER (BEAKER) 155 mg/dL 70-110 TESTED AT [facility] [address] [facility] (test krex=5113) [facility] [address] BASIC METABOLIC [id number] 01:42:00 Test Item Value Reference Range Comments SODIUM (BEAKER) (test 136 meq/L 135-148 nace=928) POTASSIUM (BEAKER) (test 3.7 meq/L 3.5-5.5 ntzq=727) CHLORIDE (BEAKER) (test 109 meq/L 98-106 ledb=906) CO2 (BEAKER) (test 17 meq/L 20-31 ahej=260) BLOOD UREA NITROGEN 3 mg/dL - (BEAKER) (test aiew=805) CREATININE (BEAKER) (test 0.79 mg/dL 0.50-1.20 ekls=331) GLUCOSE RANDOM (BEAKER) 153 mg/dL 70-110 (test xcqx=532) CALCIUM (BEAKER) (test 8.2 mg/dL 8.5-10.5 qlij=142) EGFR (BEAKER) (test 94 mL/min/1.73 sq m ESTIMATED GFR IS NOT jzjp=3113) ACCURATE CREATININE CLEARANCE IN PREDICTING GLOMERULAR FILTRATION RATE. ESTIMATED GFR IS NOT APPLICABLE FOR DIALYSIS PATIENTS. [id number] 01:39:00 Test Item Value Reference Range Comments PHOSPHORUS (BEAKER) (test qqkb=344) 2.1 mg/dL 2.5-4.5 [id number] 01:39:00 Test Item Value Reference Range Comments MAGNESIUM (BEAKER) (test njaz=406) 2.0 mg/dL 1.5-3.0 POCT-GLUCOSE [id number] 01:19:00 Test Item Value Reference Range Comments POC-GLUCOSE METER (BEAKER) 152 mg/dL 70-110 TESTED AT [facility] [address] [facility] (test nvxd=3196) [facility] [address] POCT-GLUCOSE [id number] 01:07:00 Test Item Value Reference Range Comments POC-GLUCOSE METER (BEAKER) 145 mg/dL 70-110 TESTED AT [facility] [address] [facility] (test zhym=5356) [address] [facility] [address] POCT-GLUCOSE [id number] 01:07:00 Test Item Value Reference Range Comments POC-GLUCOSE METER (BEAKER) 165 mg/dL 70-110 TESTED AT [facility] [address] [facility] (test qmwy=1063) [facility] [address] POCT-GLUCOSE [id number] 01:07:00 Test Item Value Reference Range Comments POC-GLUCOSE METER (BEAKER) 163 mg/dL 70-110 TESTED AT [facility] [address] [facility] (test unlb=3908) [facility] [address] BASIC METABOLIC [id number] 20:59:00 Test Item Value Reference Range Comments SODIUM (BEAKER) (test 137 meq/L 135-148 ezka=126) POTASSIUM (BEAKER) (test 3.9 meq/L 3.5-5.5 Specimen slightly rrei=875) hemolyzed CHLORIDE (BEAKER) (test 111 meq/L 98-106 rldx=684) CO2 (BEAKER) (test 13 meq/L 20-31 vhmk=554) BLOOD UREA NITROGEN 4 mg/dL 10-26 (BEAKER) (test lryg=264) CREATININE (BEAKER) (test 0.83 mg/dL 0.50-1.20 Specimen slightly lqiu=802) hemolyzed GLUCOSE RANDOM (BEAKER) 160 mg/dL 70-110 (test lztg=341) CALCIUM (BEAKER) (test 8.5 mg/dL 8.5-10.5 aota=904) EGFR (BEAKER) (test 89 mL/min/1.73 sq m ESTIMATED GFR IS NOT pxat=2916) ACCURATE CREATININE CLEARANCE IN PREDICTING GLOMERULAR FILTRATION RATE. ESTIMATED GFR IS NOT APPLICABLE FOR DIALYSIS PATIENTS. [id number] 20:58:00 Test Item Value Reference Range Comments MAGNESIUM (BEAKER) (test 1.8 mg/dL 1.5-3.0 Specimen slightly hemolyzed bbxo=076) [id number] 20:58:00 Test Item Value Reference Range Comments PHOSPHORUS (BEAKER) (test 2.2 mg/dL 2.5-4.5 Specimen slightly hemolyzed pgut=604) POCT-GLUCOSE [id number] 18:02:00 Test Item Value Reference Range Comments POC-GLUCOSE METER (BEAKER) 176 mg/dL 70-110 TESTED AT [facility] [address] [facility] (test jzxt=7538) [address] [facility] [address] [id number] 16:46:00 Test Item Value Reference Range Comments MAGNESIUM (BEAKER) (test 2.1 mg/dL 1.5-3.0 Specimen slightly hemolyzed hqyt=310) [id number] 16:46:00 Test Item Value Reference Range Comments PHOSPHORUS (BEAKER) (test 2.1 mg/dL 2.5-4.5 Specimen slightly hemolyzed mhsm=099) BASIC METABOLIC [id number] 16:46:00 Test Item Value Reference Range Comments SODIUM (BEAKER) (test 134 meq/L 135-148 idad=085) POTASSIUM (BEAKER) (test 4.4 meq/L 3.5-5.5 Specimen slightly oqmd=836) hemolyzed CHLORIDE (BEAKER) (test 109 meq/L 98-106 mfwv=789) CO2 (BEAKER) (test 13 meq/L 20-31 mbmk=905) BLOOD UREA NITROGEN 5 mg/dL 10-26 (BEAKER) (test ljxv=696) CREATININE (BEAKER) (test 0.79 mg/dL 0.50-1.20 Specimen slightly brse=260) hemolyzed GLUCOSE RANDOM (BEAKER) 177 mg/dL 70-110 (test bngr=116) CALCIUM (BEAKER) (test 7.8 mg/dL 8.5-10.5 lpbs=700) EGFR (BEAKER) (test 94 mL/min/1.73 sq m ESTIMATED GFR IS NOT yclf=4711) ACCURATE CREATININE CLEARANCE IN PREDICTING GLOMERULAR FILTRATION RATE. ESTIMATED GFR IS NOT APPLICABLE FOR DIALYSIS PATIENTS. CALCIUM, [id number] 16:21:00 Test Item Value Reference Range Comments CALCIUM IONIZED (BEAKER) (test vbpa=200) 1.13 mmol/L 1.12-1.27 PH, BLOOD (BEAKER) (test syck=9831) 7.30 Check serum Ionized Calcium level after 4 hours after IV Calcium replacement.POCT-GLUCOSE [id number] 16:12:00 Test Item Value Reference Range Comments POC-GLUCOSE METER (BEAKER) 191 mg/dL 70-110 TESTED AT [facility] [address] [facility] (test gyjl=6035) [facility] [address] POCT-GLUCOSE [id number] 15:20:00 Test Item Value Reference Range Comments POC-GLUCOSE METER (BEAKER) 181 mg/dL 70-110 TESTED AT [facility] [address] [facility] (test nogj=8561) [facility] [address] POCT-GLUCOSE [id number] 14:15:00 Test Item Value Reference Range Comments POC-GLUCOSE METER (BEAKER) 169 mg/dL 70-110 TESTED AT [facility] [address] [facility] (test sept=5347) [address] [facility] [address] BASIC METABOLIC [id number] 13:44:00 Test Item Value Reference Range Comments SODIUM (BEAKER) (test 137 meq/L 135-148 vlhh=695) POTASSIUM (BEAKER) (test 3.8 meq/L 3.5-5.5 mrmp=411) CHLORIDE (BEAKER) (test 112 meq/L 98-106 cnhb=373) CO2 (BEAKER) (test 13 meq/L 20-31 wtti=983) BLOOD UREA NITROGEN 7 mg/dL - (BEAKER) (test rdey=553) CREATININE (BEAKER) (test 0.78 mg/dL 0.50-1.20 iiok=341) GLUCOSE RANDOM (BEAKER) 141 mg/dL 70-110 (test kjjf=869) CALCIUM (BEAKER) (test 7.7 mg/dL 8.5-10.5 txxn=099) EGFR (BEAKER) (test 95 mL/min/1.73 sq m ESTIMATED GFR IS NOT ccur=3625) ACCURATE CREATININE CLEARANCE IN PREDICTING GLOMERULAR FILTRATION RATE. ESTIMATED GFR IS NOT APPLICABLE FOR DIALYSIS PATIENTS. POCT-GLUCOSE [id number] 13:24:00 Test Item Value Reference Range Comments POC-GLUCOSE METER (BEAKER) 157 mg/dL 70-110 TESTED AT [facility] [address] [facility] (test hydq=8813) WAY [facility] [address] POCT-GLUCOSE [id number] 12:34:00 Test Item Value Reference Range Comments POC-GLUCOSE METER (BEAKER) 131 mg/dL 70-110 TESTED AT [facility] [address] [facility] (test mjhx=6868) WAY [place] [address] POCT-GLUCOSE [id number] 11:39:00 Test Item Value Reference Range Comments POC-GLUCOSE METER (BEAKER) 160 mg/dL 70-110 TESTED AT [facility] [address] [facility] (test aktq=8672) WAY [facility] [address] [id number] 11:13:00 Test Item Value Reference Range Comments PROCALCITONIN (BEAKER) (test zuuf=0096) < ng/mL <0.05 SEPSIS RISK (ng/mL)Low: 0.05-0.50Intermediate: 0.51-2.00High: & gt;=2.01POCT-GLUCOSE [id number] 10:40:00 Test Item Value Reference Range Comments POC-GLUCOSE METER (BEAKER) 202 mg/dL 70-110 TESTED AT [facility] [address] [facility] (test psmw=7166) WAY [facility] [address] [id number] 10:04:00 Test Item Value Reference Range Comments PHOSPHORUS (BEAKER) (test 1.4 mg/dL 2.5-4.5 Specimen slightly hemolyzed vqhb=325) BASIC METABOLIC [id number] 10:04:00 Test Item Value Reference Range Comments SODIUM (BEAKER) (test 138 meq/L 135-148 cozs=285) POTASSIUM (BEAKER) (test 4.0 meq/L 3.5-5.5 Specimen slightly ytol=947) hemolyzed CHLORIDE (BEAKER) (test 113 meq/L 98-106 wzyn=119) CO2 (BEAKER) (test 11 meq/L 20-31 tutd=307) BLOOD UREA NITROGEN 9 mg/dL 10-26 (BEAKER) (test hdpg=393) CREATININE (BEAKER) (test 0.88 mg/dL 0.50-1.20 Specimen slightly dcaq=919) hemolyzed GLUCOSE RANDOM (BEAKER) 224 mg/dL 70-110 (test rajm=573) CALCIUM (BEAKER) (test 7.9 mg/dL 8.5-10.5 jaiz=207) EGFR (BEAKER) (test 83 mL/min/1.73 sq m ESTIMATED GFR IS NOT pmic=0696) ACCURATE CREATININE CLEARANCE IN PREDICTING GLOMERULAR FILTRATION RATE. ESTIMATED GFR IS NOT APPLICABLE FOR DIALYSIS PATIENTS. [id number] 10:02:00 Test Item Value Reference Range Comments MAGNESIUM (BEAKER) (test 1.8 mg/dL 1.5-3.0 Specimen slightly hemolyzed nnhm=937) POCT-GLUCOSE [id number] 09:36:00 Test Item Value Reference Range Comments POC-GLUCOSE METER (BEAKER) 212 mg/dL 70-110 TESTED AT [facility] [address] [facility] (test wonw=7011) [facility] [address] POCT-GLUCOSE [id number] 08:43:00 Test Item Value Reference Range Comments POC-GLUCOSE METER (BEAKER) 268 mg/dL 70-110 TESTED AT [facility] [address] [facility] (test zxtu=5020) [facility] [address] [id number] 07:47:00 Test Item Value Reference Range Comments POTASSIUM (BEAKER) (test hqjc=039) 4.0 meq/L 3.5-5.5 If last glucose was less than 500, may do bedside glucose instead of serum glucose.[id number] 07:47:00 Test Item Value Reference Range Comments GLUCOSE RANDOM (BEAKER) (test nqpk=571) 370 mg/dL 70-110 If last glucose was less than 500, may do bedside glucose instead of serum glucose.POCT-GLUCOSE [id number] 07:31:00 Test Item Value Reference Range Comments POC-GLUCOSE METER (BEAKER) 328 mg/dL 70-110 Notified VI DAVIS/TESTED AT [facility] (test qnoq=1002) [address] [place] [address] POCT-GLUCOSE [id number] 07:31:00 Test Item Value Reference Range Comments POC-GLUCOSE METER (BEAKER) 414 mg/dL 70-110 TESTED AT [facility] [id number] [place] [address] (test vllk=4554) [facility] [address] [id number] 06:57:00 Test Item Value Reference Range Comments POTASSIUM (BEAKER) (test fcqn=376) 4.5 meq/L 3.5-5.5 [id number] 06:51:00 Test Item Value Reference Range Comments GLUCOSE RANDOM (BEAKER) (test lnxt=459) 523 mg/dL 70-110 If last glucose was less than 500, may do bedside glucose instead of serum glucose.URINALYSIS W/ REFLEX URINE [id number] 06:29:00 Test Item Value Reference Range Comments COLOR (BEAKER) (test crna=758) Colorless CLARITY (BEAKER) (test fbpk=112) Hazy SPECIFIC GRAVITY UA (BEAKER) (test cwsn=352) 1.022 1.001-1.035 PH UA (BEAKER) (test ydia=870) 5.0 5.0-8.0 PROTEIN UA (BEAKER) (test wcut=701) Negative Negative GLUCOSE UA (BEAKER) (test hddw=791) >500 mg/dL Negative KETONES UA (BEAKER) (test scli=020) 80 mg/dL Negative BILIRUBIN UA (BEAKER) (test zlve=113) Negative Negative BLOOD UA (BEAKER) (test ztcf=504) Large Negative NITRITE UA (BEAKER) (test xenl=405) Negative Negative LEUKOCYTE ESTERASE UA (BEAKER) (test hyci=059) Negative Negative UROBILINOGEN UA (BEAKER) (test edsx=995) < mg/dL 0.2-1.0 RBC UA (BEAKER) (test xgiv=941) 170 /HPF WBC UA (BEAKER) (test uzmj=454) 27 /HPF MUCUS (BEAKER) (test ttxr=8503) Rare SOURCE(BEAKER) (test yjky=2593) RAPID INFLUENZA A&B [id number] 06:13:00 Test Item Value Reference Range Comments RAPID INFLUENZA A AG (BEAKER) (test yepf=7885) Negative Negative RAPID INFLUENZA B AG (BEAKER) (test reod=1018) Negative Negative SCREEN, [id number] 05:58:00 Test Item Value Reference Range Comments TEST URINE (BEAKER) (test vygy=126) Negative RAD, CHEST, 1 VIEW, NON [id number] 05:52:00Reason for exam:-> EMESISReason for exam:->BLOOD SUGAR PROBLEMShould this be performed at the bedside?->YesIs the patient ?->NoFINAL REPORT Comparison examination: 04/07/2017 No pneumothorax, focal pulmonary consolidation, or significant pleural effusion. Normal cardiomediastinal contours. Normal skeleton and soft tissues. Impression: No acute abnormality. Signed: Joesph Foyeport Verified Date/Time: 05/18/2017 05:52 :18 Reading Location: [facility] C0[facility] Trans[facility] Reading Room HEMOGLOBIN [id number] 05:49:00 Test Item Value Reference Range Comments HEMOGLOBIN A1C (BEAKER) (test hovm=877) 13.2 % 4.3-6.1 BASIC METABOLIC [id number] 05:28:00 Test Item Value Reference Range Comments SODIUM (BEAKER) (test 132 meq/L 135-148 xpiv=255) POTASSIUM (BEAKER) (test 4.4 meq/L 3.5-5.5 xkht=424) CHLORIDE (BEAKER) (test 101 meq/L 98-106 czpr=128) CO2 (BEAKER) (test 8 meq/L 20-31 uqfw=608) BLOOD UREA NITROGEN 12 mg/dL 10-26 (BEAKER) (test wmzx=107) CREATININE (BEAKER) (test 1.29 mg/dL 0.50-1.20 gzsg=497) GLUCOSE RANDOM (BEAKER) 622 mg/dL 70-110 (test odwk=481) CALCIUM (BEAKER) (test 8.7 mg/dL 8.5-10.5 qfau=904) EGFR (BEAKER) (test 53 mL/min/1.73 sq m ESTIMATED GFR IS NOT wweu=3495) ACCURATE CREATININE CLEARANCE IN PREDICTING GLOMERULAR FILTRATION RATE. ESTIMATED GFR IS NOT APPLICABLE FOR DIALYSIS PATIENTS. If last glucose was less than 500, may do bedside glucose instead of serum glucose.HEPATIC FUNCTION [id number] 05:27:00 Test Item Value Reference Range Comments TOTAL PROTEIN (BEAKER) (test bgmk=208) 7.9 gm/dL 6.0-8.5 ALBUMIN (BEAKER) (test onwf=5229) 4.1 g/dL 3.5-5.0 BILIRUBIN TOTAL (BEAKER) (test vnvo=479) 0.4 mg/dL 0.1-1.3 BILIRUBIN DIRECT (BEAKER) (test finh=135) 0.2 mg/dL 0.0-0.5 ALKALINE PHOSPHATASE (BEAKER) (test kpkz=976) 136 U/L 30-115 AST (SGOT) (BEAKER) (test gpnw=822) 11 U/L 5-40 ALT (SGPT) (BEAKER) (test iige=609) 10 U/L 6-50 If last glucose was less than 500, may do bedside glucose instead of serum glucose.Specimen slightlylipemicBLOOD GAS, [id number] 05:04:00 Test Item Value Reference Range Comments PH VENOUS (BEAKER) (test yktm=453) 7.17 7.32-7.42 PCO2 VENOUS (BEAKER) (test qlmv=845) 30 mmHg 41-51 PO2 VENOUS (BEAKER) (test kldb=206) 35 mmHg 25-40 O2 SATURATION VENOUS (BEAKER) (test uwec=438) 53.6 % 40.0-70.0 HCO3 VENOUS (BEAKER) (test frbd=503) 11 mmol/L 21-29 BASE EXCESS VENOUS (BEAKER) (test clly=342) -16.5 mmol/L -2.0-3.0 PATIENT TEMPERATURE (BEAKER) (test dgik=9433) 36.9 C FIO2 (BEAKER) (test zuim=0983) 21.0 % KETONE, [id number] 05:03:00 Test Item Value Reference Range Comments KETONES, BLOOD (BEAKER) (test lxkh=1604) 5.8 mmol/L <0.4 CBC W/PLT COUNT & AUTO [id number] 05:02:00 Test Item Value Reference Range Comments WHITE BLOOD CELL COUNT (BEAKER) (test xudi=848) 15.3 K/ L 4.0-10.0 RED BLOOD CELL COUNT (BEAKER) (test xzxj=460) 4.71 M/ L 4.00-5.00 HEMOGLOBIN (BEAKER) (test bybw=865) 13.5 GM/DL 12.0-15.0 HEMATOCRIT (BEAKER) (test pbud=573) 40.9 % 36.0-45.0 MEAN CORPUSCULAR VOLUME (BEAKER) (test nkom=871) 86.8 fL 82.0-99.0 MEAN CORPUSCULAR HEMOGLOBIN (BEAKER) (test 28.7 pg 27.0-33.0 clvr=388) MEAN CORPUSCULAR HEMOGLOBIN CONC (BEAKER) (test 33.1 GM/DL 32.0-36.0 nyeh=571) RED CELL DISTRIBUTION WIDTH (BEAKER) (test 12.3 % 12.0-15.0 jazw=221) PLATELET COUNT (BEAKER) (test uhsn=388) 382 K/CU MM 150-430 MEAN PLATELET VOLUME (BEAKER) (test tonm=919) 7.7 fL 6.5-10.5 NUCLEATED RED BLOOD CELLS (BEAKER) (test 0 /100 WBC 0-0 fgvv=891) NEUTROPHILS RELATIVE PERCENT (BEAKER) (test 73 % yytf=737) LYMPHOCYTES RELATIVE PERCENT (BEAKER) (test 21 % wnbc=372) MONOCYTES RELATIVE PERCENT (BEAKER) (test 5 % uvyc=758) EOSINOPHILS RELATIVE PERCENT (BEAKER) (test 1 % zrpn=155) BASOPHILS RELATIVE PERCENT (BEAKER) (test 0 % vnum=859) NEUTROPHILS ABSOLUTE COUNT (BEAKER) (test 11.20 K/ L 1.80-8.00 risz=857) LYMPHOCYTES ABSOLUTE COUNT (BEAKER) (test 3.30 K/ L 1.48-4.50 usuf=461) MONOCYTES ABSOLUTE COUNT (BEAKER) (test 0.70 K/ L 0.00-1.30 lwnq=998) EOSINOPHILS ABSOLUTE COUNT (BEAKER) (test 0.10 K/ L 0.00-0.50 uyqi=751) BASOPHILS ABSOLUTE COUNT (BEAKER) (test 0.00 K/ L 0.00-0.20 aprj=090) POCT-GLUCOSE [id number] 04:49:00 Test Item Value Reference Range Comments POC-GLUCOSE METER (BEAKER) > mg/dL 70-110 OUTSIDE MEASURING RANGETESTED AT (test lior=0649) [facility] [address] [facility] [address] BLOOD [id number] 00:00:00 Test Item Value Reference Range Comments CULTURE (BEAKER) (test tvef=9551) No growth in 5 days BLOOD [id number] 00:00:00 Test Item Value Reference Range Comments CULTURE (BEAKER) (test ksiq=2190) No growth in 5 days URINE [id number] 15:21:00 Test Item Value Reference Range Comments CULTURE (BEAKER) (test ejxz=2795) >100,000 col/mL skin christophe POCT-GLUCOSE [id number] 14:37:00 Test Item Value Reference Range Comments POC-GLUCOSE METER (BEAKER) 326 mg/dL 70-[address] [facility] [address] [facility] (test waqh=0501) [facility] [address] POCT-GLUCOSE [id number] 13:26:00 Test Item Value Reference Range Comments POC-GLUCOSE METER (BEAKER) 331 mg/dL 70-[address] [facility] [address] [facility] (test uqso=2101) [facility] [address] CBC W/PLT COUNT & AUTO [id number] 11:34:00 Test Item Value Reference Range Comments WHITE BLOOD CELL COUNT (BEAKER) (test xlxt=338) 5.9 K/ L 3.5-10.5 RED BLOOD CELL COUNT (BEAKER) (test oxzf=598) 4.15 M/ L 3.93-5.22 HEMOGLOBIN (BEAKER) (test twxo=145) 11.7 GM/DL 11.2-15.7 HEMATOCRIT (BEAKER) (test abli=699) 34.9 % 34.1-44.9 MEAN CORPUSCULAR VOLUME (BEAKER) (test klzh=738) 84.1 fL 79.4-94.8 MEAN CORPUSCULAR HEMOGLOBIN (BEAKER) (test 28.2 pg 25.6-32.2 kcdi=318) MEAN CORPUSCULAR HEMOGLOBIN CONC (BEAKER) (test 33.5 GM/DL 32.2-35.5 enyf=491) RED CELL DISTRIBUTION WIDTH (BEAKER) (test 12.8 % 11.7-14.4 fzzo=418) PLATELET COUNT (BEAKER) (test gytv=992) 272 K/CU MM 150-450 MEAN PLATELET VOLUME (BEAKER) (test tdvw=062) 9.5 fL 9.4-12.3 NUCLEATED RED BLOOD CELLS (BEAKER) (test 0 /100 WBC 0-0 uepm=602) NEUTROPHILS RELATIVE PERCENT (BEAKER) (test 44 % edbp=138) LYMPHOCYTES RELATIVE PERCENT (BEAKER) (test 47 % lmsz=317) MONOCYTES RELATIVE PERCENT (BEAKER) (test 6 % eeqy=114) EOSINOPHILS RELATIVE PERCENT (BEAKER) (test 2 % xgrj=355) BASOPHILS RELATIVE PERCENT (BEAKER) (test 1 % ezrn=449) NEUTROPHILS ABSOLUTE COUNT (BEAKER) (test 2.61 K/ L 1.56-6.13 vofy=206) LYMPHOCYTES ABSOLUTE COUNT (BEAKER) (test 2.79 K/ L 1.18-3.74 vkym=222) MONOCYTES ABSOLUTE COUNT (BEAKER) (test 0.33 K/ L 0.24-0.36 edot=374) EOSINOPHILS ABSOLUTE COUNT (BEAKER) (test 0.10 K/ L 0.04-0.36 drpd=357) BASOPHILS ABSOLUTE COUNT (BEAKER) (test 0.04 K/ L 0.01-0.08 vvcz=047) IMMATURE GRANULOCYTES-RELATIVE PERCENT (BEAKER) 0 % 0-1 (test ccxi=6051) (MANUAL DIFFERENTIAL)2017-04-09 11:34:00 Test Item Value Reference Range Comments TOTAL COUNTED (BEAKER) (test nett=2365) POCT-GLUCOSE [id number] 11:18:00 Test Item Value Reference Range Comments POC-GLUCOSE METER (BEAKER) 349 mg/dL 70-110 TESTED AT [address] (test opfw=6321) [place] [address] POCT-GLUCOSE [id number] 09:34:00 Test Item Value Reference Range Comments POC-GLUCOSE METER (BEAKER) 61 mg/dL 70-110 TESTED AT [address] (test qkzw=7386) [place] [id number] POCT-GLUCOSE [id number] 08:48:00 Test Item Value Reference Range Comments POC-GLUCOSE METER (BEAKER) 79 mg/dL 70-110 TESTED AT [address] (test ablt=0824) [place] [id number] BASIC METABOLIC [id number] 06:12:00 Test Item Value Reference Range Comments SODIUM (BEAKER) (test 135 meq/L 136-145 diwl=704) POTASSIUM (BEAKER) (test 4.7 meq/L 3.5-5.1 lpjv=250) CHLORIDE (BEAKER) (test 105 meq/L 98-107 osgs=034) CO2 (BEAKER) (test 22 meq/L 22-29 bsiv=418) BLOOD UREA NITROGEN 11 mg/dL 7-21 (BEAKER) (test ikry=462) CREATININE (BEAKER) (test 0.83 mg/dL 0.57-1.25 znfj=613) GLUCOSE RANDOM (BEAKER) 387 mg/dL 70-105 (test ijdb=117) CALCIUM (BEAKER) (test 8.7 mg/dL 8.4-10.2 asiq=064) EGFR (BEAKER) (test 89 mL/min/1.73 sq m ESTIMATED GFR IS NOT tzcf=5172) ACCURATE CREATININE CLEARANCE IN PREDICTING GLOMERULAR FILTRATION RATE. ESTIMATED GFR IS NOT APPLICABLE FOR DIALYSIS PATIENTS. KETONE, [id number] 05:43:00 Test Item Value Reference Range Comments KETONES, BLOOD (BEAKER) (test igma=8408) 0.1 mmol/L <0.4 POCT-GLUCOSE [id number] 05:39:00 Test Item Value Reference Range Comments POC-GLUCOSE METER (BEAKER) 366 mg/dL 70-110 TESTED AT [address] (test mrcq=0980) [facility] [address] POCT-GLUCOSE [id number] 22:32:00 Test Item Value Reference Range Comments POC-GLUCOSE METER (BEAKER) 302 mg/dL 70-110 TESTED AT [address] (test mput=8458) [facility] [address] POCT-GLUCOSE [id number] 19:15:00 Test Item Value Reference Range Comments POC-GLUCOSE METER (BEAKER) 273 mg/dL 70-110 TESTED AT [address] (test zeys=2517) [facility] [address] POCT-GLUCOSE [id number] 17:49:00 Test Item Value Reference Range Comments POC-GLUCOSE METER (BEAKER) 174 mg/dL 70-110 TESTED AT [address] (test peao=6114) [place] [address] POCT-GLUCOSE [id number] 17:02:00 Test Item Value Reference Range Comments POC-GLUCOSE METER (BEAKER) 171 mg/dL 70-110 TESTED AT [address] (test fjcx=9311) [facility] [address] POCT-GLUCOSE [id number] 15:17:00 Test Item Value Reference Range Comments POC-GLUCOSE METER (BEAKER) 135 mg/dL 70-110 TESTED AT [address] (test muxi=1869) [place] [address] POCT-GLUCOSE [id number] 13:10:00 Test Item Value Reference Range Comments POC-GLUCOSE METER (BEAKER) 61 mg/dL 70-110 TESTED AT [address] (test ircs=3480) [facility] [address] POCT-GLUCOSE [id number] 11:21:00 Test Item Value Reference Range Comments POC-GLUCOSE METER (BEAKER) 57 mg/dL 70-110 Notified VI DAVIS/TESTED AT [facility] (test fisl=8425) [address] [facility] [address] POCT-GLUCOSE [id number] 08:02:00 Test Item Value Reference Range Comments POC-GLUCOSE METER (BEAKER) 68 mg/dL 70-110 Notified VI DAVIS/TESTED AT [facility] (test dgfm=0491) [address] [facility] [address] CBC W/PLT COUNT & AUTO [id number] 08:02:00 Test Item Value Reference Range Comments WHITE BLOOD CELL COUNT (BEAKER) (test qpfy=528) 6.6 K/ L 3.5-10.5 RED BLOOD CELL COUNT (BEAKER) (test xowu=871) 3.97 M/ L 3.93-5.22 HEMOGLOBIN (BEAKER) (test qnpk=582) 11.2 GM/DL 11.2-15.7 HEMATOCRIT (BEAKER) (test emwb=281) 33.2 % 34.1-44.9 MEAN CORPUSCULAR VOLUME (BEAKER) (test xckd=272) 83.6 fL 79.4-94.8 MEAN CORPUSCULAR HEMOGLOBIN (BEAKER) (test 28.2 pg 25.6-32.2 jhqt=461) MEAN CORPUSCULAR HEMOGLOBIN CONC (BEAKER) (test 33.7 GM/DL 32.2-35.5 rkcb=691) RED CELL DISTRIBUTION WIDTH (BEAKER) (test 12.7 % 11.7-14.4 mqgk=128) PLATELET COUNT (BEAKER) (test vhdu=433) 231 K/CU MM 150-450 MEAN PLATELET VOLUME (BEAKER) (test zrkm=242) 9.5 fL 9.4-12.3 NUCLEATED RED BLOOD CELLS (BEAKER) (test 0 /100 WBC 0-0 hreu=269) NEUTROPHILS RELATIVE PERCENT (BEAKER) (test 33 % srju=675) LYMPHOCYTES RELATIVE PERCENT (BEAKER) (test 58 % qzet=755) MONOCYTES RELATIVE PERCENT (BEAKER) (test 6 % xqro=965) EOSINOPHILS RELATIVE PERCENT (BEAKER) (test 2 % jtnj=830) BASOPHILS RELATIVE PERCENT (BEAKER) (test 1 % huvf=177) NEUTROPHILS ABSOLUTE COUNT (BEAKER) (test 2.20 K/ L 1.56-6.13 cbxu=037) LYMPHOCYTES ABSOLUTE COUNT (BEAKER) (test 3.84 K/ L 1.18-3.74 ieyo=455) MONOCYTES ABSOLUTE COUNT (BEAKER) (test 0.37 K/ L 0.24-0.36 wgfs=354) EOSINOPHILS ABSOLUTE COUNT (BEAKER) (test 0.13 K/ L 0.04-0.36 gede=968) BASOPHILS ABSOLUTE COUNT (BEAKER) (test 0.04 K/ L 0.01-0.08 ottf=819) IMMATURE GRANULOCYTES-RELATIVE PERCENT (BEAKER) 0 % 0-1 (test imkf=6915) POCT-GLUCOSE [id number] 06:58:00 Test Item Value Reference Range Comments POC-GLUCOSE METER (BEAKER) 95 mg/dL 70-110 TESTED AT [address] (test mbzy=3163) [place] [address] POCT-GLUCOSE [id number] 06:17:00 Test Item Value Reference Range Comments POC-GLUCOSE METER (BEAKER) 150 mg/dL 70-110 TESTED AT [address] (test vxsm=5518) [place] [id number] POCT-GLUCOSE [id number] 05:18:00 Test Item Value Reference Range Comments POC-GLUCOSE METER (BEAKER) 101 mg/dL 70-110 TESTED AT [address] (test koag=4709) [place] [id number] POCT-GLUCOSE [id number] 05:07:00 Test Item Value Reference Range Comments POC-GLUCOSE METER (BEAKER) 119 mg/dL 70-110 TESTED AT [address] (test ysra=2837) [place] [id number] BASIC METABOLIC [id number] 04:52:00 Test Item Value Reference Range Comments SODIUM (BEAKER) (test 140 meq/L 136-145 vuif=252) POTASSIUM (BEAKER) (test 3.8 meq/L 3.5-5.1 oyty=717) CHLORIDE (BEAKER) (test 109 meq/L 98-107 jffu=884) CO2 (BEAKER) (test 21 meq/L 22-29 otvy=630) BLOOD UREA NITROGEN 7 mg/dL 7-21 (BEAKER) (test zkyu=391) CREATININE (BEAKER) (test 0.70 mg/dL 0.57-1.25 vbml=975) GLUCOSE RANDOM (BEAKER) 208 mg/dL 70-105 (test pvqt=508) CALCIUM (BEAKER) (test 8.4 mg/dL 8.4-10.2 mplr=930) EGFR (BEAKER) (test 108 mL/min/1.73 sq m ESTIMATED GFR IS NOT itdd=7462) ACCURATE CREATININE CLEARANCE IN PREDICTING GLOMERULAR FILTRATION RATE. ESTIMATED GFR IS NOT APPLICABLE FOR DIALYSIS PATIENTS. POCT-GLUCOSE [id number] 04:05:00 Test Item Value Reference Range Comments POC-GLUCOSE METER (BEAKER) 48 mg/dL 70-110 TESTED AT [address] (test ckgm=6356) [place] [id number] POCT-GLUCOSE [id number] 02:30:00 Test Item Value Reference Range Comments POC-GLUCOSE METER (BEAKER) 181 mg/dL 70-110 TESTED AT [address] (test uvjy=8100) [place] [id number] POCT-GLUCOSE [id number] 02:10:00 Test Item Value Reference Range Comments POC-GLUCOSE METER (BEAKER) 37 mg/dL 70-110 Will Repeat Test/TESTED AT (test ymxu=8348) [place] [id number] POCT-GLUCOSE [id number] 01:07:00 Test Item Value Reference Range Comments POC-GLUCOSE METER (BEAKER) 87 mg/dL 70-110 TESTED AT [address] (test vbgh=9155) [facility] [address] BASIC METABOLIC [id number] 00:44:00 Test Item Value Reference Range Comments SODIUM (BEAKER) (test 142 meq/L 136-145 fxfq=537) POTASSIUM (BEAKER) (test 3.6 meq/L 3.5-5.1 yivs=614) CHLORIDE (BEAKER) (test 112 meq/L 98-107 nnuu=246) CO2 (BEAKER) (test 22 meq/L 22-29 siqc=234) BLOOD UREA NITROGEN 8 mg/dL 7-21 (BEAKER) (test cnfe=125) CREATININE (BEAKER) (test 0.83 mg/dL 0.57-1.25 uhwj=880) GLUCOSE RANDOM (BEAKER) 109 mg/dL 70-105 (test fyfr=319) CALCIUM (BEAKER) (test 8.6 mg/dL 8.4-10.2 uiii=999) EGFR (BEAKER) (test 89 mL/min/1.73 sq m ESTIMATED GFR IS NOT xhrd=6197) ACCURATE CREATININE CLEARANCE IN PREDICTING GLOMERULAR FILTRATION RATE. ESTIMATED GFR IS NOT APPLICABLE FOR DIALYSIS PATIENTS. POCT-GLUCOSE [id number] 00:30:00 Test Item Value Reference Range Comments POC-GLUCOSE METER (BEAKER) 96 mg/dL 70-110 TESTED AT [address] (test hpjd=1612) [place] [address] POCT-GLUCOSE [id number] 23:54:00 Test Item Value Reference Range Comments POC-GLUCOSE METER (BEAKER) 91 mg/dL 70-110 TESTED AT [address] (test wrin=4893) [place] [address] POCT-GLUCOSE [id number] 23:12:00 Test Item Value Reference Range Comments POC-GLUCOSE METER (BEAKER) 48 mg/dL 70-110 TESTED AT [address] (test yxnh=3953) [place] [id number] POCT-GLUCOSE [id number] 21:58:00 Test Item Value Reference Range Comments POC-GLUCOSE METER (BEAKER) 94 mg/dL 70-110 TESTED AT [address] (test ekqu=5277) [place] [id number] BASIC METABOLIC [id number] 21:08:00 Test Item Value Reference Range Comments SODIUM (BEAKER) (test 137 meq/L 136-145 ngxd=181) POTASSIUM (BEAKER) (test 3.6 meq/L 3.5-5.1 vzaq=717) CHLORIDE (BEAKER) (test 109 meq/L 98-107 nhkj=680) CO2 (BEAKER) (test 18 meq/L 22-29 hnut=501) BLOOD UREA NITROGEN 6 mg/dL 7-21 (BEAKER) (test cmte=554) CREATININE (BEAKER) (test 0.93 mg/dL 0.57-1.25 hsnk=742) GLUCOSE RANDOM (BEAKER) 200 mg/dL 70-105 (test dvqp=971) CALCIUM (BEAKER) (test 7.8 mg/dL 8.4-10.2 qqux=169) EGFR (BEAKER) (test 78 mL/min/1.73 sq m ESTIMATED GFR IS NOT xprj=0821) ACCURATE CREATININE CLEARANCE IN PREDICTING GLOMERULAR FILTRATION RATE. ESTIMATED GFR IS NOT APPLICABLE FOR DIALYSIS PATIENTS. POCT-GLUCOSE [id number] 20:57:00 Test Item Value Reference Range Comments POC-GLUCOSE METER (BEAKER) 165 mg/dL 70-110 TESTED AT [address] (test szrt=0197) [place] [id number] 20:55:00 Test Item Value Reference Range Comments POTASSIUM (BEAKER) (test ocmh=307) 3.6 meq/L 3.5-5.1 URINALYSIS W/ [id number] 20:40:00 Test Item Value Reference Range Comments COLOR (BEAKER) (test lllq=483) Light Yellow CLARITY (BEAKER) (test owqg=642) Clear SPECIFIC GRAVITY UA (BEAKER) (test xihe=018) 1.009 1.001-1.035 PH UA (BEAKER) (test yoqr=553) 5.5 5.0-8.0 PROTEIN UA (BEAKER) (test frdw=139) Negative Negative GLUCOSE UA (BEAKER) (test ymac=282) >1000 mg/dL Negative KETONES UA (BEAKER) (test ltcs=562) 60 mg/dL Negative BILIRUBIN UA (BEAKER) (test cyfh=212) Negative Negative BLOOD UA (BEAKER) (test xniz=004) Moderate Negative NITRITE UA (BEAKER) (test zkef=427) Negative Negative LEUKOCYTE ESTERASE UA (BEAKER) (test anva=872) Negative Negative UROBILINOGEN UA (BEAKER) (test jdng=562) 0.2 mg/dL 0.2-1.0 RBC UA (BEAKER) (test sool=135) 0 /HPF WBC UA (BEAKER) (test jiop=056) 1 /HPF SQUAMOUS EPITHELIAL (BEAKER) (test txln=440) 2 /HPF SOURCE(BEAKER) (test cqxm=2127) POCT-GLUCOSE [id number] 19:59:00 Test Item Value Reference Range Comments POC-GLUCOSE METER (BEAKER) 282 mg/dL 70-110 TESTED AT [address] (test igsr=7606) [place] [id number] POCT-GLUCOSE [id number] 19:02:00 Test Item Value Reference Range Comments POC-GLUCOSE METER (BEAKER) 374 mg/dL 70-110 Notified VI DAVIS/TESTED AT [facility] (test wfhc=0213) [address] [facility] [address] CBC W/PLT COUNT & AUTO [id number] 18:56:00 Test Item Value Reference Range Comments WHITE BLOOD CELL COUNT (BEAKER) (test ezam=042) 8.3 K/ L 3.5-10.5 RED BLOOD CELL COUNT (BEAKER) (test opis=355) 4.18 M/ L 3.93-5.22 HEMOGLOBIN (BEAKER) (test scmb=992) 11.9 GM/DL 11.2-15.7 HEMATOCRIT (BEAKER) (test vehn=637) 35.0 % 34.1-44.9 MEAN CORPUSCULAR VOLUME (BEAKER) (test wmqa=590) 83.7 fL 79.4-94.8 MEAN CORPUSCULAR HEMOGLOBIN (BEAKER) (test 28.5 pg 25.6-32.2 cgwz=247) MEAN CORPUSCULAR HEMOGLOBIN CONC (BEAKER) (test 34.0 GM/DL 32.2-35.5 nlfz=690) RED CELL DISTRIBUTION WIDTH (BEAKER) (test 12.7 % 11.7-14.4 pcxd=880) PLATELET COUNT (BEAKER) (test mjrn=168) 307 K/CU MM 150-450 MEAN PLATELET VOLUME (BEAKER) (test sruo=299) 9.5 fL 9.4-12.3 NUCLEATED RED BLOOD CELLS (BEAKER) (test 0 /100 WBC 0-0 eede=793) NEUTROPHILS RELATIVE PERCENT (BEAKER) (test 42 % mryv=145) LYMPHOCYTES RELATIVE PERCENT (BEAKER) (test 51 % kchm=765) MONOCYTES RELATIVE PERCENT (BEAKER) (test 5 % ozlg=842) EOSINOPHILS RELATIVE PERCENT (BEAKER) (test 1 % lygu=920) BASOPHILS RELATIVE PERCENT (BEAKER) (test 1 % ipqt=449) NEUTROPHILS ABSOLUTE COUNT (BEAKER) (test 3.52 K/ L 1.56-6.13 olxy=181) LYMPHOCYTES ABSOLUTE COUNT (BEAKER) (test 4.24 K/ L 1.18-3.74 pclu=761) MONOCYTES ABSOLUTE COUNT (BEAKER) (test 0.39 K/ L 0.24-0.36 angk=008) EOSINOPHILS ABSOLUTE COUNT (BEAKER) (test 0.09 K/ L 0.04-0.36 jycj=017) BASOPHILS ABSOLUTE COUNT (BEAKER) (test 0.05 K/ L 0.01-0.08 xush=578) IMMATURE GRANULOCYTES-RELATIVE PERCENT (BEAKER) 0 % 0-1 (test mmvl=4122) POCT-GLUCOSE [id number] 18:03:00 Test Item Value Reference Range Comments POC-GLUCOSE METER (BEAKER) 294 mg/dL 70-[address] [facility] [address] [facility] (test vbyh=8094) [facility] [address] HEMOGLOBIN [id number] 17:45:00 Test Item Value Reference Range Comments HEMOGLOBIN A1C (BEAKER) (test ekir=840) 12.6 % 4.3-6.1 RAD, CHEST, 1 VIEW, NON [id number] 17:20:00Reason for exam:->sobShould this be performed at [...] [place] Verified Date/Time: 04/07/2017 17:20:50 Reading Location: [address] Radiology Reading Room TSH/FREE T4 IF [id number] 17: 04:00 Test Item Value Reference Range Comments THYROID STIMULATING HORMONE (BEAKER) (test 0.95 uIU/mL 0.35-4.94 nsxl=671) TROPONIN [id number] 16:51:00 Test Item Value Reference Range Comments TROPONIN I (BEAKER) (test onbu=821) < ng/mL 0.00-0.03 Effective 06/20/2014: Reference Range [...] renalfailure, acidosis, acute neurological disease, and persistent tachyarrhythmia.[id number] 16:45:00 Test Item Value Reference Range Comments LIPASE (BEAKER) (test ispk=975) 33 U/L 8-78 [id number] 16:45:00 Test Item Value Reference Range Comments AMYLASE (BEAKER) (test sxue=689) 66 U/L 25-125 BASIC METABOLIC [id number] 16:45:00 Test Item Value Reference Range Comments SODIUM (BEAKER) (test 139 meq/L 136-145 atzf=856) POTASSIUM (BEAKER) (test 3.8 meq/L 3.5-5.1 ygjp=873) CHLORIDE (BEAKER) (test 109 meq/L 98-107 judc=956) CO2 (BEAKER) (test 23 meq/L 22-29 wrms=614) BLOOD UREA NITROGEN 8 mg/dL 7-21 (BEAKER) (test eukt=263) CREATININE (BEAKER) (test 0.72 mg/dL 0.57-1.25 pozz=705) GLUCOSE RANDOM (BEAKER) 125 mg/dL 70-105 (test moil=668) CALCIUM (BEAKER) (test 8.4 mg/dL 8.4-10.2 bmmo=050) EGFR (BEAKER) (test 104 mL/min/1.73 sq m ESTIMATED GFR IS NOT yukv=1814) ACCURATE CREATININE CLEARANCE IN PREDICTING GLOMERULAR FILTRATION RATE. ESTIMATED GFR IS NOT APPLICABLE FOR DIALYSIS PATIENTS. LACTIC ACID, VENOUS, WHOLE [id number] 16:45:00 Test Item Value Reference Range Comments LACTATE BLOOD VENOUS (2) (BEAKER) (test 1.1 mmol/L 0.5-2.2 vphn=0664) Effective 12/05/2015: Units/Reference Range ChangeNew: 0.5-2.2 mmol/L Previous: 5 -20 mg/dLKETONE, [id number] 16:41:00 Test Item Value Reference Range Comments KETONES, BLOOD (BEAKER) (test ldek=4847) 2.1 mmol/L <0.4 BLOOD GAS, [id number] 16:27:00 Test Item Value Reference Range Comments PH VENOUS (BEAKER) (test foas=829) 7.36 7.32-7.42 PCO2 VENOUS (BEAKER) (test hkxf=101) 41 mmHg 41-51 PO2 VENOUS (BEAKER) (test rmeq=212) 18 mmHg 25-40 O2 SATURATION VENOUS (BEAKER) (test nmir=252) 26.4 % 40.0-70.0 HCO3 VENOUS (BEAKER) (test fsdp=462) 23 mmol/L 21-29 BASE EXCESS VENOUS (BEAKER) (test iqfl=991) -2.5 mmol/L -2.0-3.0 PATIENT TEMPERATURE (BEAKER) (test wfbi=8180) 37.0 C POCT-GLUCOSE [id number] 16:20:00 Test Item Value Reference Range Comments POC-GLUCOSE METER (BEAKER) 156 mg/dL 70-110 TESTED AT [address] (test oarm=5175) [place] [address] POCT-GLUCOSE [id number] 15:28:00 Test Item Value Reference Range Comments POC-GLUCOSE METER (BEAKER) 101 mg/dL 70-110 TESTED AT [address] (test dhee=4393) [place] [address]
[2019-03-22 08:09] LABS: Absolute Lymphocytes (CBC) 1.8 K/uL (0.7-4.9); Basophils % 0.2 % (0-1.3); Hematocrit 40.9 % (36.0-45.0); Lymphocytes % 14.4 % (15.3-44.8); MPV 7.5 fL (7.6-11.3); RBC Red Blood Cell Count 4.94 M/uL (3.86-4.86)
[2019-03-22 08:32] LABS: BUN Blood Urea Nitrogen 16 mg/dL (7-18); Bicarbonate 24 mmol/L (21-32); Glucose Level 144 mg/dL (74-106); Potassium 3.6 mmol/L (3.5-5.1); Sodium Level 141 mmol/L (136-145)
--- NOTE | 2019-03-22 08:57 | ER ---
Nurse's Notes [facility] Name: Salome Santacruz Age: 19 yrs Sex: Female : 2000 Arrival Date: 03/22/2019 Time: 07:43 Bed 5 Private MD: Diagnosis: Hypoglycemia, unspecified Presentation: 03/22 07:43 Presenting complaint: EMS states: "pt's called 911, upon arrival pt was only aa5 reponsive to pain and FSBG was 52 and increased to 188 after giving 250mls of D10". Pt now A\\T\\O x 4. Pt c/o nausea. Pt states "all I remember was giving myself 55 units of Levemir last night and going to bed". Pt reports Levemir dosage was recently increased from 50 units to 55 units. 07:43 Transition of care: patient was not received from another setting of care. Onset of aa5 symptoms was March 22, 2019. Risk Assessment: Do you want to hurt yourself or someone else? Patient reports no desire to harm self or others. Initial Sepsis Screen: Does the patient meet any 2 criteria? No. Patient's initial sepsis screen is negative. Does the patient have a suspected source of infection? No. Patient's initial sepsis screen is negative. Care prior to arrival: Medication(s) given: D10 250mls bolus IV initiated. 20 GA, in the left antecubital area. 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 - Family history:: not pertinent. - Ebola Screening: : No symptoms or risks identified at this time. - Social history:: Smoking status: Patient/guardian denies using tobacco. - Hospitalizations: : No recent hospitalization is reported. Screenin:45 Abuse screen: Denies threats or abuse. Nutritional screening: No deficits noted. aa5 Tuberculosis screening: No symptoms or risk factors identified. Fall Risk None identified. Assessment: 07:45 General: Appears comfortable, Behavior is calm, cooperative. Pain: Denies pain. Neuro: aa5 Level of Consciousness is awake, alert, obeys commands, Oriented to person, place, time, situation. Cardiovascular: Heart tones S1 S2 present Patient's skin is warm and dry. Rhythm is regular. Respiratory: Airway is patent Respiratory effort is even, unlabored, Respiratory pattern is regular, symmetrical. GI: Abdomen is flat, non-distended, Bowel sounds present X 4 quads. Abd is soft and non tender X 4 quads. Reports nausea, Patient currently denies vomiting. : No signs and/or symptoms were reported regarding the genitourinary system. EENT: No signs and/or symptoms were reported regarding the EENT system. Derm: Skin is pink, warm \\T\\ dry. Musculoskeletal: Range of motion: intact in all extremities. 08:20 Reassessment: Pt given food tray, pt now sitting up in bed eating, pt tolerating well. .aa5 08:20 Reassessment: Patient is alert, oriented x 3, equal unlabored respirations, skin aa5 warm/dry/pink. Patient denies pain at this time. Denies nausea . 08:55 Reassessment: Pt ate 100% of breakfast, pt tolerated well. . aa5 09:10 Reassessment: Patient is alert, oriented x 3, equal unlabored respirations, skin aa5 warm/dry/pink. Patient denies pain at this time. Vital Signs: 07:43 BP 119 / 86; Pulse 94; Resp 18 S; Temp 98.2(O); Pulse Ox 100% on R/A; Pain 0/10; aa5 09:10 BP 116 / 71; Pulse 94; Resp 16; Temp 98.2; Pulse Ox 100% ; bp ED Course: 07:43 Patient arrived in ED. rn 07:43 Joe Carreon MD is Attending Physician. rn 07:43 Patient placed in an exam room, on a stretcher. aa5 07:45 Arm band placed on. aa5 07:45 Patient has correct armband on for positive identification. Placed in gown. Bed in low aa5 position. Call light in reach. Side rails up X2. 07:46 Shaunna King, RN is Primary Nurse. aa5 07:51 Triage completed. aa5 07:54 Initial lab(s) drawn, by ED staff, sent to lab. Maintain EMS IV. Dressing intact. Site aa5 clean \\T\\ dry. Gauge \\T\\ site: 20 G to L AC . 07:54 Inserted saline lock: 20 gauge in right antecubital area, using aseptic technique. IV aa5 inserted by Gayle Manzano technical stenographer. 08:11 EKG done, by health and safety tech. reviewed by Joe Carreon MD. sm3 09:10 No provider procedures requiring assistance completed. IV discontinued, intact, aa5 bleeding controlled, No redness/swelling at site. Pressure dressing applied, both IV's d/c'd. Administered Medications: No medications were administered Point of Care Testing: Blood Glucose: 07:43 Blood Glucose: 170 mg/dL; aa5 08:58 Blood Glucose: 114 mg/dL; aa5 Ranges: Outcome: 08:56 Discharge ordered by . rn 09:10 Discharged to home ambulatory, with significant other. aa5 09:10 Condition: stable 09:10 Discharge instructions given to patient, Instructed on discharge instructions, follow up and referral plans. Demonstrated understanding of instructions, follow-up care. 09:13 Patient left the ED. iw Signatures: Pauline London RN RN iw Nieto, Roman, MD MD rn Calderon, Audri, RN RN aa5 Peltier, Brian, RN RN bp Montes, Shakira 3 Corrections: (The following items were deleted from the chart) 07:52 07:43 Presenting complaint: EMS states: "pt's called 911, upon arrival pt was aa5 only reponsive to pain and FSBG was 52 and increased to 188 after giving 250mls of D10". Pt now A\\T\\O x 4. Pt c/o nausea. aa5
--- NOTE | 2019-03-22 08:57 | EDPHYS ---
Physician Documentation [facility] Name: Salome Santacruz Age: 19 yrs Sex: Female : 2000 Arrival Date: 03/22/2019 Time: 07:43 Bed 5 Private MD: ED Physician Joe Carreon HPI: 03/22 07:46 This 19 yrs old Female presents to ER via Unassigned with complaints of low rn blood sugar. 07:46 The patient or guardian reports hypoglycemia, that was potentially precipitated by no rn particular event. Associated signs and symptoms: Pertinent positives: None. Pertinent negatives: decreased urine output, diarrhea, seizure activity, skin flushing, urinary incontinence, vomiting. Current symptoms: In the emergency department the patient's symptoms have improved. The patient has not experienced similar symptoms in the past. The patient has been recently seen by a physician:. Reports low blood sugar, took 55 u lantus last night, woke up today not feeling right, no seizure, doesn't recall events, called 911, glucose 50s, given oral glucose and IV glucose now glucose 170 and patient feels back to baseline. Denies recent fever/vomiting/diarrhea. Reports physician increased her lantus from 50-55, didn't eat much last night, hadn't eaten anything this morning.. 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 - Family history:: not pertinent. - Ebola Screening: : No symptoms or risks identified at this time. - Social history:: Smoking status: Patient/guardian denies using tobacco. - Hospitalizations: : No recent hospitalization is reported. ROS: 07:46 Constitutional: Negative for fever, chills, and weight loss, Eyes: Negative for injury, rn pain, redness, and discharge, Neck: Negative for injury, pain, and swelling, Cardiovascular: Negative for chest pain, palpitations, and edema, Respiratory: Negative for shortness of breath, cough, wheezing, and pleuritic chest pain, Abdomen/GI: Negative for abdominal pain, nausea, vomiting, diarrhea, and constipation, MS/Extremity: Negative for injury and deformity, Skin: Negative for injury, rash, and discoloration, Neuro: Negative for headache, weakness, numbness, tingling, and seizure. Exam: 07:46 Constitutional: This is a well developed, well nourished patient who is awake, alert, rn and in no acute distress. Head/Face: Normocephalic, atraumatic. Eyes: Pupils equal round and reactive to light, extra-ocular motions intact. Lids and lashes normal. Conjunctiva and sclera are non-icteric and not injected. Cornea within normal limits. Periorbital areas with no swelling, redness, or edema. ENT: MMM Neck: Trachea midline, no thyromegaly or masses palpated, and no cervical lymphadenopathy. Supple, full range of motion without nuchal rigidity, or vertebral point tenderness. No Meningismus. Cardiovascular: Regular rate and rhythm. No pulse deficits. Respiratory: Lungs have equal breath sounds bilaterally, clear to auscultation. No increased work of breathing, no retractions or nasal flaring. Abdomen/GI: soft, non-tender MS/ Extremity: Pulses equal, no cyanosis. Neurovascular intact. Full, normal range of motion. Equal circumference. Neuro: Awake and alert, GCS 15, oriented to person, place, time, and situation. Cranial nerves II-XII grossly intact. Motor strength 5/5 in all extremities. Sensory grossly intact. Cerebellar exam normal. 07:53 ECG was reviewed by the Attending Physician. rn Vital Signs: 07:43 BP 119 / 86; Pulse 94; Resp 18 S; Temp 98.2(O); Pulse Ox 100% on R/A; Pain 0/10; aa5 09:10 BP 116 / 71; Pulse 94; Resp 16; Temp 98.2; Pulse Ox 100% ; bp MDM: 07:44 Patient medically screened. rn 08:55 Differential diagnosis: hypoglycemic episode. Data reviewed: vital signs, nurses notes, handle turner test result(s), EKG, and as a result, I will discharge patient. Counseling: I had a detailed discussion with the patient and/or guardian regarding: the historical points, exam findings, and any diagnostic results supporting the discharge/admit diagnosis, lab results, the need for outpatient follow up, to return to the emergency department if symptoms worsen or persist or if there are any questions or concerns that arise at home. Response to treatment: the patient's symptoms have markedly improved after treatment, the patient's symptoms have resolved after treatment, and as a result, I will discharge patient. Special discussion: I discussed with the patient/guardian in detail that at this point there is no indication for admission to the hospital. It is understood, however, that if the symptoms persist or worsen the patient needs to return immediately for re-evaluation. Based on the history and exam findings, there is no indication for further emergent testing or inpatient evaluation. I discussed with the patient/guardian the need to see the primary care provider for further evaluation of the symptoms. ED course: Pt passed PO challenge, glucose remains stable, normal vitals, normal renal function, will dc home. checks glucose frequently, states lately glucose in AM running around 40s-50s, I recommended nighttime/bedtime snack to mitigate this.. 03/22 07:45 Order name: CBC with Diff; Complete Time: 08:35 rn 03/22 07:45 Order name: Basic Metabolic Panel; Complete Time: 08:35 rn 03/22 07:45 Order name: Urine Microscopic Only rn 03/22 07:56 Order name: glucometer results - FOR PT WITH NO ID aa5 03/22 08:10 Order name: Urine Dipstick--Ancillary (enter results) bd 03/22 07:45 Order name: IV Start; Complete Time: 07:47 rn 03/22 07:45 Order name: Urine Test (obtain specimen); Complete Time: 08:17 rn 03/22 07:45 Order name: Urine Dipstick-Ancillary (obtain specimen); Complete Time: 08:17 rn 03/22 07:45 Order name: EKG; Complete Time: 07:46 rn 03/22 07:45 Order name: EKG - Nurse/Tech; Complete Time: 07:56 rn 03/22 07:45 Order name: PO challenge; Complete Time: 08:18 rn 03/22 07:46 Order name: Diet Regular; Complete Time: 07:46 iw 03/22 08:10 Order name: Urine --Ancillary (enter results) bd EC:53 Rate is 93 beats/min. Rhythm is regular. QRS [place] is Normal. [place] interval is normal. QRS rn interval is normal. QT interval is normal. No Q waves. T waves are Normal. No ST changes noted. Clinical impression: Normal ECG. Interpreted by me. Reviewed by me. Administered Medications: No medications were administered Point of Care Testing: Blood Glucose: 07:43 Blood Glucose: 170 mg/dL; aa5 08:58 Blood Glucose: 114 mg/dL; aa5 Ranges: Critical Glucose Levels:Adult <50 mg/dl or >400 mg/dl <40 mg/dl or >180 mg/dl Disposition: 03/22/19 08:56 Discharged to Home. Impression: Hypoglycemia, unspecified. - Condition is Stable. - Discharge Instructions: Hypoglycemia, Blood Glucose Monitoring, Adult. - Work release form, Medication Reconciliation Form, Thank You Letter, Antibiotic Education, Prescription Opioid Use form. - Follow up: Private Physician; When: As needed; Reason: Recheck today's complaints, Re-evaluation by your physician. - Problem is new. - Symptoms have improved. Signatures: Dispatcher [employer] EDPauline Rm RN RN iw Nieto, Roman, MD MD rn Calderon, Audri, RN RN aa5 Corrections: (The following items were deleted from the chart) 09:13 08:56 03/22/2019 08:56 Discharged to Home. Impression: Hypoglycemia, unspecified. iw Condition is Stable. Forms are Medication Reconciliation Form, Thank You Letter, Antibiotic Education, Prescription Opioid Use. Follow up: Private Physician; When: As needed; Reason: Recheck today's complaints, Re-evaluation by your physician. Problem is new. Symptoms have improved. rn
[2019-03-22 09:39] LABS: Urine Bacteria 20-50 /HPF (<20); Urine Culture Reflex Order REFLEXED; Urine Mucus 1+ /HPF (NONE SEEN); Urine RBC <5 /HPF (NONE SEEN)
[2019-03-22 09:44] LABS: Urine Blood NEGATIVE (NEG); Urine Glucose 2+ (NEG); Urine Protein NEGATIVE (NEG); Urine Specific Gravity 1.015 (1.005-1.030)
[2019-03-22 09:58] VITALS: TEMP 98.2; O2SAT 100
[2019-03-22 10:00] VITALS: BP 116/71
--- NOTE | 2019-03-22 12:20 | EKG ---
Test Date: 2019-03-22 Test Time: 07:47:28 Reconciliation Analyst: MERYL MEASUREMENT RESULTS: Intervals: Rate: 93 [place]: 144 QRSD: 76 QT: 374 QTc: 465 [place]: P: 58 [place]: 144 QRS: 47 T: 33 INTERPRETIVE STATEMENTS: Normal sinus rhythm Normal ECG Compared to ECG 04/07/2017 09:27:29 No significant changes Electronically Signed On 03-22-19 12:20:04 CDT by Favio Hilton
== END 2019-03-22 09:13 | disposition home or self-care (01) ==
LOC: ER 07:40
DX: E11.649 Type 2 diabetes mellitus with hypoglycemia without coma (principal); Z88.8 Allergy status to other drugs, medicaments and biological substances; Z91.018 Allergy to other foods; Z91.040 Latex allergy status; Z91.048 Other nonmedicinal substance allergy status
CPT/HCPCS: 36415; 80048; 81003; 81015; 81025; 82962; 85025; 87086; 87088; 93005; 99284

== ENCOUNTER 2019-04-20 09:59 | Inpatient (IN) | payer SELFPAY ==
--- OUTSIDE RECORDS SUMMARY | 2019-04-20 10:01 | XMS REPORT | Clinical Summary ---
:2000 Author Organization [facility] Address [address] [place] [address] Care Team Providers Name Role Phone Sohail Xiong MD Primary Care Provider Unavailable Allergies Active Allergy Reactions Severity Noted Date Comments Latex Rash Low 04/07/2017 Acetaminophen-Pam[place]rom Rash Low 04/07/2017 Bumps in mouth Onion Hives 05/18/2017 Promethazine Anxiety Low 04/07/2017 Severe anxiety attacks Tree Nut 06/17/2017 Medications Medication Sig Dispensed Refills Start End Date Status Date insulin regular (HUMULIN If JH=583-132, give 1unit 10 mL 3 Active R,NOVOLIN R) 100 unit/mL If SA=789-510, give 2units 7 injection If QC=382-085, give 4units If UU=350-727, give 6units If PM=949-294, give 8units. medroxyPROGESTERone Inject 150 mg 0 [...] Not on file Results Not on fileafter 04/19/2018 Insurance Payer Benefit Plan / Group Subscriber ID Type Phone Address OTHER-COMMERCIAL GENERIC COMMERCIAL xxxxxxxxx Advance Directives For more information, please contact:[address] [phone] Code Status Date Activated Date Inactivated Comments Full Code 06/17/2017 10:54 AM 06/19/2017 2:40 PM This code status was determined by: Patient Full Code 05/18/2017 7:25 AM 05/19/2017 7:18 PM This code status was determined by: Patient Full Code 04/07/2017 3:28 PM 04/09/2017 7:53 PM This code status was determined by: Patient
--- OUTSIDE RECORDS SUMMARY | 2019-04-20 10:04 | XMS REPORT | Summary of Care ---
:2000 Author Organization [facility] - Health Address [address] [place] [address] Care Team Providers Name Role Phone Pcp, Patient Does Not Have A Primary Care Provider Reason for Visit Reason Comments Hypoglycemia Auth/Cert Status Reason Specialty Diagnoses / Referred By Referred To Procedures Contact Contact Emergency Medicine Diagnoses [facility] [address] [place] [address] [place] [address] Encounter Details Date Type Department Care Team Description 03/25/2019 Emergency ADC-Emergency NataliemaLenora S, Hypoglycemia (Primary Department MD Dx) [address] [place] [address] [address] [place] [address] [id number] [place], [place] [id number] Allergies Active Allergy Reactions Severity Noted Date Comments Latex Rash 01/30/2016 Midol (Ibuprofen) Other - See comments Medium 09/09/2013 Pt reported that her mouth gets "itchy and swollen" when she takes Midol and Midol Teen. Dr. Guo notified. Sister insists that pt is only allergic to Midol, NOT ibuprofen. Onion Hives Medium 12/02/2016 Promethazine Hcl Other - See comments 01/30/2016 Anxiety and chest pressure documented as of this encounter (statuses as of 03/25/2019) Medications Medication Sig Dispensed Refills Start Date End Date Status Blood-Glucose Meter To be used with 1 Each 1 03/16/2013 Active (PRECISION XTRA) blood ketone strips. MiscIndications: Type I (juvenile type) diabetes mellitus without mention of complication, uncontrolled glucagon (GLUCAGON 1 mg by 2 mg 0 07/24/2014 Active EMERGENCY) 1 mg Intramuscular route injectionIndications as needed (For : Type I (juvenile severe type) diabetes hypoglycemia). mellitus without mention of complication, uncontrolled, Vaccination reaction, initial encounter blood sugar 6 (six) times daily. 200 Strip 12 07/24/2014 Active diagnostic (FREESTYLE LITE STRIPS) stripIndications: Type I (juvenile type) diabetes mellitus without mention of complication, uncontrolled, Vaccination reaction, initial encounter SERTraline 50 mg Take 1 tablet by 90 tablet 1 11/12/2016 Active tabletIndications: mouth daily. Chronic depression, Chronic insomnia insulin degludec inject 40 Units 0 Active (TRESIBA FLEXTOUCH under the skin at U-100) 100 unit/mL bedtime. (3 mL) InPn hydrOXYzine 25 mg Take 25 mg by mouth 0 Active tablet at bedtime as needed for Other (sleep). insulin lispro 100 Inject 10-20 units 10 mL 0 12/11/2017 Active unit/mL pen SQ per carb dosing injectorIndications: Indications: sliding sliding scale scale documented as of this encounter (statuses as of 03/25/2019) Active Problems Problem Noted Date Syncope 12/10/2017 Dyspareunia, female 05/27/2017 Other general counseling and advice for contraceptive management 04/14/2017 Depo-Provera contraceptive status 04/14/2017 New onset of headaches 11/14/2016 Chronic insomnia 10/21/2016 Contraceptive management 03/14/2016 Well woman exam 02/28/2016 DKA (diabetic ketoacidoses) 07/18/2014 Overview: Sep, 2015- admission for DKA and E coli UTI 09/2015, 10/2015, (neg 12/2015) Type 1 diabetes mellitus, uncontrolled 09/09/2013 Overview: Class D since age 1 on insulin pump- base rate: 7am-9pm 1.9U and 9pm-mid 1.6U; Mid-7 am 1.5 CHO 1 u. Along with sliding scale. Depressive disorder 10/17/2012 Overview: wellbutrin 1 yr ago- self d/c. Attention deficit hyperactivity disorder (ADHD) 10/17/2012 Overview: ICD10 Diagnosis Term Online Banking Specialist Utility documented as of this encounter (statuses as of 03/25/2019) Resolved Problems Problem Noted Date Resolved Date Anemia of mother in , condition 02/28/2016 11/14/2016 Status post primary low transverse section 02/03/2016 02/28/2016 Liveborn by 02/03/2016 02/28/2016 01/30/2016 02/28/2016 36 weeks gestation of 01/29/2016 02/28/2016 Uncontrolled blood glucose 01/29/2016 02/28/2016 Diabetes mellitus affecting in third trimester 01/29/20162015 contractions, third trimester 01/14/2016 01/24/2016 Overview: 01/10/2016 observation for ctx Cx=close GBS (group B Streptococcus carrier), +RV culture, currently 01/14/20162015 Overview: 01/08/2016 (+) heart deceleration 01/09/2016 02/28/2016 DM (diabetes mellitus) 12/04/2015 02/28/2016 Noncompliance 09/06/2015 02/28/2016 Pneumonia due to organism 01/23/2015 01/24/2016 UTI (lower urinary tract infection) 01/18/2015 09/06/2015 Recurrent UTI (urinary tract infection) complicating , 01/18/2015 unspecified trimester Overview: 07/2015- Klebsiella 09/2015 and 10/2015- E coli x 2 culture- multidrug resistance (R- amp, cephalosporin, genti, bactrim; sen- macrobid) 01/2016- contam 01/10 on macrobid supp DKA, type 1 12/14/2013 09/06/2015 Hepatitis 12/14/2013 02/28/2016 Overview: S/p hepatitis A and B vaccination as child Type 1 diabetes mellitus with ketoacidosis, uncontrolled 07/14/20122015 documented as of this encounter (statuses as of 03/25/2019) Immunizations Name Administration Dates Next Due DTAP 01/14/2005, 03/12/2004 HEPATITIS A 03/09/2006, 05/22/2005, 02/21/2000 HPV 01/24/2015 HPV9 07/14/2017, 04/14/2017 Hep B, Adol or Pedi Dosage 05/22/2005, 01/14/2005, 03/12/2004 Influenza Virus Vaccine Quad IM 3+ YRS 09/07/2015 MMR 01/14/2005, 03/11/2004 Meningococcal Vaccine 06/06/2010 Pneumococcal 13 Conjugate, PCV13 07/20/2014 (Prevnar 13) Polio (IPV/OPV) 05/22/2005, 01/14/2005, 03/12/2004 TDAP (ADACEL) VACCINE 04/14/2017 Td 05/22/2005 Tdap 12/27/2015, 06/06/2010 Varicella (varivax)(chicken pox) 03/09/2008, 03/11/2004, 02/21/2000, 08/08/1999 documented as of this encounter Social History Tobacco Use Types Packs/Day Years Used Date Former Smoker Cigarettes 04/14/2012 - 04/14/2015 Smokeless Tobacco: Never Used Alcohol Use Drinks/Week oz/Week Comments No 0 Standard drinks or equivalent 0.0 Sex Assigned at Date Recorded Not on file Job Start Date Occupation Industry Not on file Not on file Not on file Travel History Travel Start Travel End No recent travel history available. documented as of this encounter Last Filed Vital Signs Vital Sign Reading Time Taken Comments Blood Pressure 115/72 03/25/2019 11:00 AM CDT Pulse 90 03/25/2019 11:00 AM CDT Temperature 36.9 C (98.4 F) 03/25/2019 8:07 AM CDT Respiratory Rate 16 03/25/2019 11:00 AM CDT Oxygen Saturation 100% 03/25/2019 11:00 AM CDT Inhaled Oxygen Concentration - - Weight 59.4 kg (131 lb) 03/25/2019 8:07 AM CDT Height - - Body Mass Index - - documented in this encounter Discharge Instructions Lenora Rodriguez MD - 03/25/2019 DIAGNOSIS Diagnoses that have been ruled out: None Diagnoses that are still under consideration: None Final diagnoses: Hypoglycemia NO LIFE-THREATENING FINDINGS ON TODAY'S EXAM. PROCEDURES IN THE ER TODAY: Orders Placed This Encounter Procedures POCT GLUCOSE (AUTOMATED) URINALYSIS POCT TEST CBC WITH DIFF COMP. METABOLIC PANEL (68731) CBC WITH DIFFERENTIAL POCT GLUCOSE(AGE >30DAYS) MEDICATIONS ADMINISTERED IN THE ER TODAY AND DISCHARGE MEDICATIONS: No orders of the defined types were placed in this encounter. FOLLOW-UP RECOMMENDATIONS: RECOMMEND FOLLOW-UP WITH YOUR PRIMARY CARE PROVIDER OR UNDERWRITING SPECIALIST ESPECIALLY IF NO IMPROVEMENT IN SYMPTOMS. CALL [phone] TO SCHEDULE THE NEXT AVAILABLE ENDOCRINOLOGY CLINIC APPOINTMENT DISCUSSED MAY FOLLOW-UP WITH A PROVIDER OF YOUR CHOICE, SUCH : 1. A PHYSICIAN OF YOUR CHOICE 2. [facility], . LOCATIONS IN [facility] 3. [facility], [address], [place]; OR, IF YOU WISH TO FOLLOW-UP WITHIN THE [facility], MAY TRY THESE OPTIONS (CLINIC APPOINTMENTS AVAILABLE ON [id number] BASIS): 1. SCHEDULE AN APPOINTMENT ONLINE AT [email or web address] [place] 2. OR CALL THE [facility] ACCESS CENTER AT OR 3. OR CALL YOUR [facility] PHYSICIAN'S OFFICE DIRECTLY IF YOU ARE ALREADY AN ESTABLISHED [facility] PATIENT. RETURN TO ER FOR WORSENING OF SYMPTOMS documented in this encounter Plan of Treatment Health Maintenance Due Date Last Done Comments EYE EXAM 02/16/2008 MENINGOCOCCAL B VACCINES (1 02/16/2008 of 2 - Risk Bexsero 2-dose series) PNEUMOCOCCAL 0-64 YEARS 09/14/2014 07/20/2014 COMBINED SERIES (1 of 1 - PPSV23) FOOT EXAM 02/16/2016 LDL-C 10/22/2017 10/22/2016, 12/16/2014 URINE MICROALBUMIN 10/22/2017 10/22/2016, 06/06/2014, 07/22/2012 CHLAMYDIA SCREENING 04/14/2018 04/14/2017, 09/20/2016, 03/14/2016, Additional history exists HgA1C 06/12/2018 12/10/2017, 10/08/2017, 12/02/2016, Additional history exists PAP SMEAR 2019 INFLUENZA VACCINE (Retired 04/03/2019 09/07/2015 version) CREATININE (SERUM) 01/11/2020 01/10/2019, 07/13/2018, 12/11/2017, Additional history exists DTaP,Tdap,and Td Vaccines (6 04/14/2027 04/14/2017, 12/27/2015, - Td) 06/06/2010, Additional history exists MENINGOCOCCAL VACCINE Aged Out 06/06/2010 No longer eligible based on patient's age to complete this topic HPV VACCINES Completed 07/14/2017, 04/14/2017, 01/24/2015 documented as of this encounter Procedures Procedure Name Priority Date/Time Associated Diagnosis Comments POCT GLUCOSE Routine 03/25/2019 10:42 Results for this (AUTOMATED) AM CDT procedure are in the results section. POCT GLUCOSE(AGE THIEN 03/25/2019 10:42 Hypoglycemia Results for this >30DAYS) AM CDT procedure are in the results section. POCT TEST THIEN 03/25/2019 9:20 Hypoglycemia Results for this AM CDT procedure are in the results section. URINALYSIS STAT 03/25/2019 9:18 Hypoglycemia Results for this AM CDT procedure are in the results section. CBC WITH DIFFERENTIAL STAT 03/25/2019 9:13 Hypoglycemia Results for this AM CDT procedure are in the results section. CBC WITH DIFF STAT 03/25/2019 9:13 Hypoglycemia Results for this AM CDT procedure are in the results section. COMP. METABOLIC PANEL STAT 03/25/2019 9:13 Hypoglycemia Results for this (19458) AM CDT procedure are in the results section. POCT GLUCOSE Routine 03/25/2019 8:51 Results for this (AUTOMATED) AM CDT procedure are in the results section. NOTICE OF PRIVACY Routine 03/25/2019 7:56 PRACTICES AM CDT CONSENT/REFUSAL FOR Routine 03/25/2019 7:55 DIAGNOSIS AND AM CDT TREATMENT documented in this encounter Results POCT GLUCOSE (AUTOMATED) (03/25/2019 10:42 AM CDT) POCT GLU 276 (H) 70 - 110 mg/dL [facility] Specimen Blood Performing Organization Address City/State/Zipcode Phone Number [facility] CLIA: [id number], [address] [place] [address] POCT GLUCOSE(AGE >30DAYS) (03/25/2019 10:42 AM CDT) POCT Glu (age>30days) 276 (A) 70 - 110 mg/dL Specimen Blood - CAPILLARY POCT TEST (03/25/2019 9:20 AM CDT) POCT PREG negative On board controls acceptable present with C Line POCT PREG LOT # [id number] POCT PREG TEST DATE 08-02-2020 Specimen Urine - URINE, CLEAN CATCH URINALYSIS (03/25/2019 9:18 AM CDT) APPEARANCE Clear Clear [facility] COLOR Yellow Yellow [facility] PH 6.0 4.8 - 8.0 [facility] SP GRAVITY 1.010 1.003 - 1.030 [facility] GLU U QUAL >1000 mg/dL (A) Negative [facility] BLOOD Negative Negative [facility] KETONES Negative Negative [facility] PROTEIN Negative Negative [facility] UROBILIN 0.2 mg/dL 0-1.0 mg/dL [facility] BILIRUBIN Negative Negative [facility] NITRITE Negative Negative [facility] LEUK MANN Negative Negative [facility] RBC/HPF 0 0 - 3 HPF [facility] WBC/HPF 4 0 - 5 HPF [facility] BACTERIA Many (A) Negative [facility] SQ EPITH 12 HPF [facility] TRANS EPI 1 <=1 HPF [facility] Specimen Urine - URINE, CLEAN CATCH Performing Organization Address City/State/Zipcode Phone Number [facility] CLIA: [id number], [address] [place] [address] CBC WITH DIFFERENTIAL (03/25/2019 9:13 AM CDT) Pathologist [facility] WBC 10.43Comment: 4.30 - 11.10 [facility] 10*3/L [facility] preliminary LABORATORY verified result was 10.32 10*3/L on 03/25/2019 at 0936 CDT RBC 5.27 (H)Comment: 3.93 - 5.25 [facility] 10*6/L [facility] preliminary LABORATORY verified result was 5.28 10*6/L on 03/25/2019 at 0936 CDT HGB 14.9 11.6 - 15.0 [facility] g/dL [facility] LABORAT[facility] HCT 44.3Comment: 35.7 - 45.2 % [facility] preliminary LABORATORY verified result was 44.4 % on 03/25/2019 at 0936 CDT MCV 84.1 80.6 - 95.5 [facility] LABORATORY MCH 28.3Comment: 25.9 - 32.8 [facility] pg [facility] preliminary LABORATORY verified result was 28.2 pg on 03/25/[address] [place] [address] MCHC 33.6 31.6 - 35.1 [facility] g/dL [facility] LABORATORY RDW-SD 36.1 (L)Comment: 39.0 - 49.9 [facility] preliminary LABORATORY verified result was 36.0 fL on 03/25/[address] [place] [address] RDW-CV 12.0Comment: 12.0 - 15.5 % [facility] preliminary LABORATORY verified result was 11.9 % on 03/25/[address] [place] [address] PLT 421 (H)Comment: 166 - 358 [facility] 10*3/L [facility] preliminary LABORATORY verified result was 422 10*3/L on 03/25/[address] [place] [address] MPV 9.6 9.5 - 12.9 fL [facility] NRBC/100 WBC 0.0 0.0 - 10.0 [facility]100 WBCs [facility] LAB[facility] NRBC x10^3 <0.01 10*3/L [facility] GRAN MAT (NEUT) % 71.2Comment: % [facility] preliminary LABORATORY verified result was 70.8 % on 03/25/[address] [place] [address] IMM GRAN % 0.50 % [facility] LAB[facility] LYMPH % 22.5Comment: % [facility] preliminary LABORATORY verified result was 23.0 % on 03/25/[address] [place] [address] MONO % 4.8Comment: % [facility] preliminary LABORATORY verified result was 4.7 % on 03/25/[address] [place] [address] EOS % 0.5Comment: % [facility] preliminary LABORATORY verified result was 0.6 % on 03/25/[address] [place] [address] BASO % 0.5Comment: % [facility] preliminary LABORATORY verified result was 0.4 % on 03/25/[address] [place] [address] GRAN MAT 7.43 (H)Comment: 1.88 - 7.09 [facility] x10^3(ANC) Previous 10*3/uL HOSPITAL preliminary LABORATORY verified result was 7.31 10*3/uL on 03/25/2019 at 0936 CDT IMM GRAN x10^3 0.05 0.00 - 0.06 [facility] 10*3/uL [facility] LABORATORY LYMPH x10^3 2.35Comment: 1.32 - 3.29 [facility] Previous 10*3/uL [facility] preliminary LABORATORY verified result was 2.37 10*3/uL on 03/25/2019 at 0936 CDT MONO x10^3 0.50Comment: 0.33 - 0.92 [facility] Previous 10*3/uL [facility] preliminary LABORATORY verified result was 0.49 10*3/uL on 03/25/2019 at 0936 CDT EOS x10^3 0.05Comment: 0.03 - 0.39 [facility] Previous 10*3/uL [facility] preliminary LABORATORY verified result was 0.06 10*3/uL on 03/25/2019 at 0936 CDT BASO x10^3 0.05Comment: 0.01 - 0.07 [facility] 10*3/uL [facility] preliminary LABORATORY verified result was 0.04 10*3/uL on 03/25/2019 at 0936 CDT Specimen Blood - VENOUS Performing Organization Address City/State/Zipcode Phone Number [facility] CLIA: [id number], [address] [place] [address] COMP. METABOLIC PANEL (24737) (03/25/2019 9:13 AM CDT) NA 144 135 - 145 [facility] mmol/L [facility] LABORATORY K 3.6 3.5 - 5.0 [facility] mmol/L [facility] LAB[facility] CL 106 98 - 108 mmol/L [facility] CO2 TOTAL 23 23 - 31 mmol/L [facility] AGAP 15 2 - 16 [facility] BUN 14 7 - 23 mg/dL [facility] GLUCOSE 37 (LL) 70 - 110 mg/dL [facility] CREATININE 0.53 0.50 - 1.04 [facility] mg/dL [facility] LAB[facility]ORY TOTAL BILI 0.5 0.1 - 1.1 mg/dL [facility] CALCIUM 9.2 8.6 - 10.6 [facility] mg/dL [facility] LAB[facility] T PROTEIN 9.1 (H) 6.3 - 8.2 g/dL [facility] ALBUMIN 5.1 (H) 3.5 - 5.0 g/dL [facility] ALK PHOS 120 34 - 122 U/L [facility] ALT(SGPT) 6 (L) 9 - 51 U/L [facility] AST(SGOT) 19 13 - 40 U/L [facility] eGFR Calculation 145.6 mL/min/1.73m2 [facility] ([facility] LABORATORY Mongolian) eGFR Calculation 176.5 mL/min/1.73m2 [facility] () [facility] LAB[facility] Specimen Blood - VENOUS Narrative Performed At Association of Glomerular Filtration Rate (GFR) [facility] and Staging of Kidney Disease* + + +- + | GFR (mL/min/1.73 m2)| With Kidney Damage|Without Kidney Damage + + +- + |>90| Stage one| Normal + + +- + |60-89|S tage two| Decreased GFR + + +- + |30-59|S tage three| Stage three + + +- + |15-29|S tage four | Stage four + + +- + |<15 (or dialysis)|Stage five | Stage five + + +- + *Each stage assumes the associated GFR level has been in effect for at least three months.Stages 1 to 5, with or without kidney disease, indicate chronic kidney disease. Notes: Determination of stages one and two (with eGFR >59mL/min/1.73 m2) requires estimation of kidney damage for at least three months as defined by structural or functional abnormalities of the kidney, manifested by either: Pathological abnormalities or Markers of kidney damage (including abnormalities in the composition of the blood or urine or abnormalities in imaging tests). Performing Organization Address [facility] Phone Number [facility] CLIA: [id number], [address] [place] [address] [email or web address] POCT GLUCOSE (AUTOMATED) (03/25/2019 8:51 AM CDT) POCT GLU 181 (H) 70 - 110 mg/dL [facility] Specimen Blood Performing Organization Address 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
--- OUTSIDE RECORDS SUMMARY | 2019-04-20 10:04 | XMS REPORT ---
:2000 [facility] [address] [place] [address] Care Team Providers Name Role Phone DAVY [...] of the pelvis was performed on the [employer] Pre[employer].Comparison study: No prior study.FINDINGS:Uterus: 8.2 x [...] (BEAKER) (test 230 mg/dL 70-110 TESTED AT [facility] [address] [facility] [address] mxev=8274) [facility] [address] POCT-GLUCOSE [id number] 08:32:00 Test Item Value Reference Range Comments POC-GLUCOSE METER (BEAKER) 70 mg/dL 70-110 TESTED AT [facility] [address] [facility] (test zieh=0275) WAY [facility] [address] POCT-GLUCOSE [id number] 05:13:00 Test Item Value Reference Range Comments POC-GLUCOSE METER (BEAKER) 152 mg/dL 70-110 TESTED AT [facility] [address] [facility] (test wuhh=2420) WAY [facility] [address] POCT-GLUCOSE [id number] 04:14:00 Test Item Value Reference Range Comments POC-GLUCOSE METER (BEAKER) 55 mg/dL 70-110 TESTED AT [facility] [address] [facility] (test lppg=4599) WAY [facility] [address] POCT-GLUCOSE [id number] 20:37:00 Test Item Value Reference Range Comments POC-GLUCOSE METER (BEAKER) 204 mg/dL 70-110 TESTED AT [facility] [address] [facility] (test upaj=8601) WAY [facility] [address] POCT-GLUCOSE [id number] 19:01:00 Test Item Value Reference Range Comments POC-GLUCOSE METER (BEAKER) 88 mg/dL 70-110 TESTED AT [facility] [address] [facility] (test couo=2233) WAY [facility] [address] POCT-GLUCOSE [id number] 17:27:00 Test Item Value Reference Range Comments POC-GLUCOSE METER (BEAKER) 253 mg/dL 70-110 TESTED AT [facility] [address] [facility] (test fqzt=0179) WAY [facility] [address] POCT-GLUCOSE [id number] 15:36:00 Test Item Value Reference Range Comments POC-GLUCOSE METER (BEAKER) 366 mg/dL 70-110 TESTED AT [facility] [address] [facility] (test xkwb=5840) WAY [facility] [address] POCT-GLUCOSE [id number] 11:51:00 Test Item Value Reference Range Comments POC-GLUCOSE METER (BEAKER) 194 mg/dL 70-110 TESTED AT [facility] [address] [facility] (test hdba=4878) WAY [facility] [address] POCT-GLUCOSE [id number] 10:19:00 Test Item Value Reference Range Comments POC-GLUCOSE METER (BEAKER) 147 mg/dL 70-110 TESTED AT [address] (test jcue=3802) [facility] [address] BASIC METABOLIC [id number] 09:23:00 Test Item Value Reference Range Comments SODIUM (BEAKER) (test 135 meq/L 135-148 wfyb=834) POTASSIUM (BEAKER) (test 3.5 meq/L 3.5-5.5 xhsu=960) CHLORIDE (BEAKER) (test 108 meq/L 98-106 yrce=844) CO2 (BEAKER) (test 20 meq/L 20-31 snsq=181) BLOOD UREA NITROGEN 8 mg/dL 10-26 (BEAKER) (test njwl=317) CREATININE (BEAKER) (test 0.90 mg/dL 0.50-1.20 zcpm=766) GLUCOSE RANDOM (BEAKER) 164 mg/dL 70-110 (test yvzv=419) CALCIUM (BEAKER) (test 8.6 mg/dL 8.5-10.5 azwv=906) EGFR (BEAKER) (test 81 mL/min/1.73 sq m ESTIMATED GFR IS NOT sarc=5463) ACCURATE CREATININE CLEARANCE IN PREDICTING GLOMERULAR FILTRATION RATE. ESTIMATED GFR IS NOT APPLICABLE FOR DIALYSIS PATIENTS. POCT-GLUCOSE [id number] 08:02:00 Test Item Value Reference Range Comments POC-GLUCOSE METER (BEAKER) 161 mg/dL 70-110 TESTED AT [address] (test widy=1362) [place] [address] POCT-GLUCOSE [id number] 07:03:00 Test Item Value Reference Range Comments POC-GLUCOSE METER (BEAKER) 151 mg/dL 70-110 TESTED AT [address] (test gsfs=1547) [place] [address] POCT-GLUCOSE [id number] 05:08:00 Test Item Value Reference Range Comments POC-GLUCOSE METER (BEAKER) 158 mg/dL 70-110 TESTED AT [address] (test nkye=1745) [facility] [address] BASIC METABOLIC [id number] 04:51:00 Test Item Value Reference Range Comments SODIUM (BEAKER) (test 137 meq/L 135-148 tywv=927) POTASSIUM (BEAKER) (test 3.3 meq/L 3.5-5.5 dkhe=726) CHLORIDE (BEAKER) (test 111 meq/L 98-106 okgd=978) CO2 (BEAKER) (test 15 meq/L 20-31 bkzd=577) BLOOD UREA NITROGEN 9 mg/dL 10-26 (BEAKER) (test draa=338) CREATININE (BEAKER) (test 0.84 mg/dL 0.50-1.20 yqjg=669) GLUCOSE RANDOM (BEAKER) 160 mg/dL 70-110 (test zece=952) CALCIUM (BEAKER) (test 8.3 mg/dL 8.5-10.5 woza=434) EGFR (BEAKER) (test 87 mL/min/1.73 sq m ESTIMATED GFR IS NOT siff=6003) ACCURATE CREATININE CLEARANCE IN PREDICTING GLOMERULAR FILTRATION RATE. ESTIMATED GFR IS NOT APPLICABLE FOR DIALYSIS PATIENTS. POCT-GLUCOSE [id number] 03:03:00 Test Item Value Reference Range Comments POC-GLUCOSE METER (BEAKER) 153 mg/dL 70-110 TESTED AT [facility] [id number] [place] [address] (test qlsh=8239) [facility] [address] POCT-GLUCOSE [id number] 02:09:00 Test Item Value Reference Range Comments POC-GLUCOSE METER (BEAKER) 159 mg/dL 70-110 TESTED AT [facility] [address] [facility] (test idjm=7893) [facility] [address] POCT-GLUCOSE [id number] 01:08:00 Test Item Value Reference Range Comments POC-GLUCOSE METER (BEAKER) 174 mg/dL 70-110 TESTED AT [facility] [address] [facility] (test wqdp=1514) [facility] [address] BASIC METABOLIC [id number] 00:38:00 Test Item Value Reference Range Comments SODIUM (BEAKER) (test 137 meq/L 135-148 egie=504) POTASSIUM (BEAKER) (test 3.8 meq/L 3.5-5.5 stvz=398) CHLORIDE (BEAKER) (test 111 meq/L 98-106 eynl=157) CO2 (BEAKER) (test 12 meq/L 20-31 bwcc=629) BLOOD UREA NITROGEN 9 mg/dL 10-26 (BEAKER) (test ozyq=760) CREATININE (BEAKER) (test 0.91 mg/dL 0.50-1.20 ehmx=122) GLUCOSE RANDOM (BEAKER) 173 mg/dL 70-110 (test lnyl=284) CALCIUM (BEAKER) (test 8.4 mg/dL 8.5-10.5 cdsv=328) EGFR (BEAKER) (test 80 mL/min/1.73 sq m ESTIMATED GFR IS NOT izxs=9818) ACCURATE CREATININE CLEARANCE IN PREDICTING GLOMERULAR FILTRATION RATE. ESTIMATED GFR IS NOT APPLICABLE FOR DIALYSIS PATIENTS. POCT-GLUCOSE [id number] 00:37:00 Test Item Value Reference Range Comments POC-GLUCOSE METER (BEAKER) 198 mg/dL 70-110 TESTED AT [facility] [id number] [place] [address] (test bzqa=9346) WAY [facility] [address] POCT-GLUCOSE [id number] 00:14:00 Test Item Value Reference Range Comments POC-GLUCOSE METER (BEAKER) 162 mg/dL 70-110 TESTED AT [facility] [id number] [place] [address] (test shmn=2526) [facility] [address] POCT-GLUCOSE [id number] 23:39:00 Test Item Value Reference Range Comments POC-GLUCOSE METER (BEAKER) 149 mg/dL 70-110 TESTED AT [facility] [id number] [place] [address] (test fipm=1465) [facility] [address] POCT-GLUCOSE [id number] 23:10:00 Test Item Value Reference Range Comments POC-GLUCOSE METER (BEAKER) 134 mg/dL 70-110 TESTED AT [facility] [id number] [place] [address] (test tdul=9760) [facility] [address] POCT-GLUCOSE [id number] 22:41:00 Test Item Value Reference Range Comments POC-GLUCOSE METER (BEAKER) 112 mg/dL 70-110 TESTED AT [facility] [id number] [place] [address] (test hhnx=5133) [facility] [address] POCT-GLUCOSE [id number] 21:59:00 Test Item Value Reference Range Comments POC-GLUCOSE METER (BEAKER) 95 mg/dL 70-110 TESTED AT [facility] [id number] [place] [address] (test cssf=1145) [facility] [address] POCT-GLUCOSE [id number] 21:39:00 Test Item Value Reference Range Comments POC-GLUCOSE METER (BEAKER) 110 mg/dL 70-110 TESTED AT [address] (test xlcg=4086) WAY [facility] [address] POCT-GLUCOSE [id number] 21:07:00 Test Item Value Reference Range Comments POC-GLUCOSE METER (BEAKER) 114 mg/dL 70-110 TESTED AT [facility] [id number] [place] [address] (test xcty=8150) [place] [address] BASIC METABOLIC [id number] 20:47:00 Test Item Value Reference Range Comments SODIUM (BEAKER) (test 139 meq/L 135-148 inhc=835) POTASSIUM (BEAKER) (test 3.7 meq/L 3.5-5.5 dzqy=726) CHLORIDE (BEAKER) (test 112 meq/L 98-106 xgjj=852) CO2 (BEAKER) (test 12 meq/L 20-31 vadk=436) BLOOD UREA NITROGEN 9 mg/dL 10-26 (BEAKER) (test pcxd=149) CREATININE (BEAKER) (test 1.03 mg/dL 0.50-1.20 hzmh=513) GLUCOSE RANDOM (BEAKER) 162 mg/dL 70-110 (test medz=818) CALCIUM (BEAKER) (test 8.6 mg/dL 8.5-10.5 dslu=616) EGFR (BEAKER) (test 69 mL/min/1.73 sq m ESTIMATED GFR IS NOT stpg=3658) ACCURATE CREATININE CLEARANCE IN PREDICTING GLOMERULAR FILTRATION RATE. ESTIMATED GFR IS NOT APPLICABLE FOR DIALYSIS PATIENTS. POCT-GLUCOSE [id number] 20:17:00 Test Item Value Reference Range Comments POC-GLUCOSE METER (BEAKER) 176 mg/dL 70-110 TESTED AT [facility] [id number] [place] [address] (test tuso=6724) WAY [facility] [address] [id number] 19:09:00 Test Item Value Reference Range Comments GLUCOSE RANDOM (BEAKER) (test wczf=342) 230 mg/dL 70-110 If last glucose was less than 500, may do bedside glucose instead of serum glucose.POCT-GLUCOSE [id number] 18:53:00 Test Item Value Reference Range Comments POC-GLUCOSE METER (BEAKER) 212 mg/dL 70-110 TESTED AT [facility] [address] [facility] (test jlaa=7913) [place] [address] POCT-GLUCOSE [id number] 17:14:00 Test Item Value Reference Range Comments POC-GLUCOSE METER (BEAKER) 145 mg/dL 70-110 TESTED AT [facility] [address] [facility] (test ujmc=0946) [facility] [address] BASIC METABOLIC [id number] 16:51:00 Test Item Value Reference Range Comments SODIUM (BEAKER) (test 140 meq/L 135-148 nvzo=734) POTASSIUM (BEAKER) (test 3.9 meq/L 3.5-5.5 gord=708) CHLORIDE (BEAKER) (test 114 meq/L 98-106 aznd=733) CO2 (BEAKER) (test 14 meq/L 20-31 clhk=022) BLOOD UREA NITROGEN 10 mg/dL 10-26 (BEAKER) (test omco=506) CREATININE (BEAKER) (test 0.94 mg/dL 0.50-1.20 unqh=482) GLUCOSE RANDOM (BEAKER) 126 mg/dL 70-110 (test zkdl=464) CALCIUM (BEAKER) (test 8.4 mg/dL 8.5-10.5 csje=092) EGFR (BEAKER) (test 77 mL/min/1.73 sq m ESTIMATED GFR IS NOT wnsq=4815) ACCURATE CREATININE CLEARANCE IN PREDICTING GLOMERULAR FILTRATION RATE. ESTIMATED GFR IS NOT APPLICABLE FOR DIALYSIS PATIENTS. If last glucose was less than 500, may do bedside glucose instead of serum glucose.[id number] 16:47:00 Test Item Value Reference Range Comments GLUCOSE RANDOM (BEAKER) (test ghpa=179) 126 mg/dL 70-110 If last glucose was less than 500, may do bedside glucose instead of serum glucose.POCT-GLUCOSE [id number] 16:04:00 Test Item Value Reference Range Comments POC-GLUCOSE METER (BEAKER) 119 mg/dL 70-110 TESTED AT [facility] [address] [facility] (test vnce=8013) WAY [facility] [address] [id number] 14:30:00 Test Item Value Reference Range Comments POTASSIUM (BEAKER) (test neyg=411) 3.9 meq/L 3.5-5.5 If last glucose was less than 500, may do bedside glucose instead of serum glucose.[id number] 14:30:00 Test Item Value Reference Range Comments GLUCOSE RANDOM (BEAKER) (test joiy=861) 190 mg/dL 70-110 If last glucose was less than 500, may do bedside glucose instead of serum glucose.POCT-GLUCOSE [id number] 14:05:00 Test Item Value Reference Range Comments POC-GLUCOSE METER (BEAKER) 194 mg/dL 70-110 TESTED AT [facility] [address] [facility] (test ylqd=1449) WAY [facility] [address] POCT-GLUCOSE [id number] 13:15:00 Test Item Value Reference Range Comments POC-GLUCOSE METER (BEAKER) 229 mg/dL 70-110 TESTED AT [facility] [address] [facility] (test rozq=4478) WAY [facility] [address] BASIC METABOLIC [id number] 12:44:00 Test Item Value Reference Range Comments SODIUM (BEAKER) (test 136 meq/L 135-148 gvqq=006) POTASSIUM (BEAKER) (test 4.0 meq/L 3.5-5.5 ryhl=408) CHLORIDE (BEAKER) (test 111 meq/L 98-106 cdmj=990) CO2 (BEAKER) (test 12 meq/L 20-31 ymwi=858) BLOOD UREA NITROGEN 12 mg/dL 10-26 (BEAKER) (test exwj=625) CREATININE (BEAKER) (test 0.99 mg/dL 0.50-1.20 drxj=393) GLUCOSE RANDOM (BEAKER) 258 mg/dL 70-110 (test cyyn=376) CALCIUM (BEAKER) (test 8.1 mg/dL 8.5-10.5 udin=887) EGFR (BEAKER) (test 72 mL/min/1.73 sq m ESTIMATED GFR IS NOT pzfd=8140) ACCURATE CREATININE CLEARANCE IN PREDICTING GLOMERULAR FILTRATION RATE. ESTIMATED GFR IS NOT APPLICABLE FOR DIALYSIS PATIENTS. If last glucose was less than 500, may do bedside glucose instead of serum glucose.[id number] 12:43:00 Test Item Value Reference Range Comments GLUCOSE RANDOM (BEAKER) (test bfdh=601) 258 mg/dL 70-110 If last glucose was less than 500, may do bedside glucose instead of serum glucose.POCT-GLUCOSE [id number] 12:03:00 Test Item Value Reference Range Comments POC-GLUCOSE METER (BEAKER) 238 mg/dL 70-110 TESTED AT [facility] [address] [facility] (test gekt=3983) [facility] [address] POCT-GLUCOSE [id number] 11:05:00 Test Item Value Reference Range Comments POC-GLUCOSE METER (BEAKER) 261 mg/dL 70-110 TESTED AT [facility] [address] [facility] (test ncos=6636) [facility] [address] HEMOGLOBIN [id number] 10:07:00 Test Item Value Reference Range Comments HEMOGLOBIN A1C (BEAKER) (test dgtt=765) > % 4.3-6.1 [id number] 10:00:00 Test Item Value Reference Range Comments GLUCOSE RANDOM (BEAKER) (test wcnc=655) 441 mg/dL 70-110 If last glucose was less than 500, may do bedside glucose instead of serum glucose.[id number] 09:55:00 Test Item Value Reference Range Comments POTASSIUM (BEAKER) (test edtb=366) 4.1 meq/L 3.5-5.5 If last glucose was less than 500, may do bedside glucose instead of serum glucose.POCT-GLUCOSE [id number] 09:18:00 Test Item Value Reference Range Comments POC-GLUCOSE METER (BEAKER) > mg/dL 70-110 OUTSIDE MEASURING RANGETESTED AT (test gfqj=4537) [facility] [address] [facility] [address] [id number] 09:15:00 Test Item Value Reference Range Comments GLUCOSE RANDOM (BEAKER) (test guyr=195) 585 mg/dL 70-110 If last glucose was less than 500, may do bedside glucose instead of serum glucose.COMPREHENSIVE METABOLIC [id number] 08:30:00 Test Item Value Reference Range Comments TOTAL PROTEIN (BEAKER) 8.2 gm/dL 6.0-8.5 (test ridm=606) ALBUMIN (BEAKER) (test 4.5 g/dL 3.5-5.0 lpya=2338) ALKALINE PHOSPHATASE 135 U/L 30-115 (BEAKER) (test bbez=567) BILIRUBIN TOTAL (BEAKER) 0.3 mg/dL 0.1-1.3 (test kmrc=414) SODIUM (BEAKER) (test 130 meq/L 135-148 wwxf=126) POTASSIUM (BEAKER) (test 4.6 meq/L 3.5-5.5 trjh=621) CHLORIDE (BEAKER) (test 96 meq/L 98-106 ujhu=000) CO2 (BEAKER) (test 10 meq/L 20-31 ulsm=858) BLOOD UREA NITROGEN 16 mg/dL 10-26 (BEAKER) (test dzzt=652) CREATININE (BEAKER) (test 1.49 mg/dL 0.50-1.20 ufwi=306) GLUCOSE RANDOM (BEAKER) 637 mg/dL 70-110 (test iavs=929) CALCIUM (BEAKER) (test 9.5 mg/dL 8.5-10.5 peqg=842) AST (SGOT) (BEAKER) (test 12 U/L 5-40 llib=292) ALT (SGPT) (BEAKER) (test 14 U/L 6-50 fdvc=949) EGFR (BEAKER) (test 45 mL/min/1.73 sq m ESTIMATED GFR IS NOT ygol=4666) ACCURATE CREATININE CLEARANCE IN PREDICTING GLOMERULAR FILTRATION RATE. ESTIMATED GFR IS NOT APPLICABLE FOR DIALYSIS PATIENTS. CBC W/PLT COUNT & AUTO [id number] 08:29:00 Test Item Value Reference Range Comments WHITE BLOOD CELL COUNT (BEAKER) (test wapz=149) 7.7 K/ L 4.0-10.0 RED BLOOD CELL COUNT (BEAKER) (test gmqv=616) 5.18 M/ L 4.00-5.00 HEMOGLOBIN (BEAKER) (test czdg=459) 14.6 GM/DL 12.0-15.0 HEMATOCRIT (BEAKER) (test lypl=165) 43.9 % 36.0-45.0 MEAN CORPUSCULAR VOLUME (BEAKER) (test mxpu=079) 84.8 fL 82.0-99.0 MEAN CORPUSCULAR HEMOGLOBIN (BEAKER) (test 28.1 pg 27.0-33.0 thiq=342) MEAN CORPUSCULAR HEMOGLOBIN CONC (BEAKER) (test 33.1 GM/DL 32.0-36.0 ylvo=886) RED CELL DISTRIBUTION WIDTH (BEAKER) (test 12.3 % 12.0-15.0 yepo=970) PLATELET COUNT (BEAKER) (test ptba=210) 421 K/CU MM 150-430 MEAN PLATELET VOLUME (BEAKER) (test tqgt=859) 8.0 fL 6.5-10.5 NUCLEATED RED BLOOD CELLS (BEAKER) (test 0 /100 WBC 0-0 ebbr=799) NEUTROPHILS RELATIVE PERCENT (BEAKER) (test 50 % pfil=561) LYMPHOCYTES RELATIVE PERCENT (BEAKER) (test 45 % xrjc=712) MONOCYTES RELATIVE PERCENT (BEAKER) (test 5 % carr=639) EOSINOPHILS RELATIVE PERCENT (BEAKER) (test 1 % gmsk=279) BASOPHILS RELATIVE PERCENT (BEAKER) (test 1 % pfri=976) NEUTROPHILS ABSOLUTE COUNT (BEAKER) (test 3.80 K/ L 1.80-8.00 jarw=591) LYMPHOCYTES ABSOLUTE COUNT (BEAKER) (test 3.40 K/ L 1.48-4.50 uuwk=730) MONOCYTES ABSOLUTE COUNT (BEAKER) (test 0.40 K/ L 0.00-1.30 zoij=732) EOSINOPHILS ABSOLUTE COUNT (BEAKER) (test 0.10 K/ L 0.00-0.50 wkbl=779) BASOPHILS ABSOLUTE COUNT (BEAKER) (test 0.00 K/ L 0.00-0.20 dtat=878) [id number] 08:25:00 Test Item Value Reference Range Comments PHOSPHORUS (BEAKER) (test knqf=154) 4.0 mg/dL 2.5-4.5 [id number] 08:25:00 Test Item Value Reference Range Comments MAGNESIUM (BEAKER) (test kkxs=847) 2.0 mg/dL 1.5-3.0 SCREEN, [id number] 08:16:00 Test Item Value Reference Range Comments TEST URINE (BEAKER) (test bliu=962) Negative URINALYSIS W/ [id number] 08:16:00 Test Item Value Reference Range Comments COLOR (BEAKER) (test zhql=883) Colorless CLARITY (BEAKER) (test qter=079) Clear SPECIFIC GRAVITY UA (BEAKER) (test stql=706) 1.025 1.001-1.035 PH UA (BEAKER) (test pyym=385) 5.0 5.0-8.0 PROTEIN UA (BEAKER) (test xbgu=790) Negative Negative GLUCOSE UA (BEAKER) (test kjot=559) >500 mg/dL Negative KETONES UA (BEAKER) (test iige=568) 80 mg/dL Negative BILIRUBIN UA (BEAKER) (test lgwc=097) Negative Negative BLOOD UA (BEAKER) (test leba=544) Negative Negative NITRITE UA (BEAKER) (test pbgn=289) Negative Negative LEUKOCYTE ESTERASE UA (BEAKER) (test ojcl=621) Negative Negative UROBILINOGEN UA (BEAKER) (test hnac=983) < mg/dL 0.2-1.0 RBC UA (BEAKER) (test kxfm=994) 0 /HPF WBC UA (BEAKER) (test pkch=024) < /HPF MUCUS (BEAKER) (test hjiy=1471) Rare SOURCE(BEAKER) (test fvwa=9039) KETONE, [id number] 08:09:00 Test Item Value Reference Range Comments KETONES, BLOOD (BEAKER) (test akwt=5341) 6.1 mmol/L <0.4 PH, [id number] 08:08:00 Test Item Value Reference Range Comments PH VENOUS (BEAKER) (test pffi=849) 7.18 7.32-7.42 BLOOD [id number] 13:00:00 Test Item Value Reference Range Comments CULTURE (BEAKER) (test yrvt=3161) No growth in 5 days BLOOD [id number] 13:00:00 Test Item Value Reference Range Comments CULTURE (BEAKER) (test kewf=9802) No growth in 5 days POCT-GLUCOSE [id number] 17:12:00 Test Item Value Reference Range Comments POC-GLUCOSE METER (BEAKER) 136 mg/dL 70-110 TESTED AT [facility] [address] [facility] (test bepw=1638) WAY [facility] [address] POCT-GLUCOSE [id number] 16:37:00 Test Item Value Reference Range Comments POC-GLUCOSE METER (BEAKER) 45 mg/dL 70-110 TESTED AT [facility] [address] [facility] (test soes=8984) WAY [facility] [address] POCT-GLUCOSE [id number] 11:32:00 Test Item Value Reference Range Comments POC-GLUCOSE METER (BEAKER) 98 mg/dL 70-110 TESTED AT [facility] [address] [facility] (test seoc=1428) WAY [facility] [address] POCT-GLUCOSE [id number] 06:45:00 Test Item Value Reference Range Comments POC-GLUCOSE METER (BEAKER) 85 mg/dL 70-110 TESTED AT [facility] [address] [facility] (test jkml=2760) [facility] [address] [id number] 06:25:00 Test Item Value Reference Range Comments PHOSPHORUS (BEAKER) (test uiot=097) 2.4 mg/dL 2.5-4.5 [id number] 06:25:00 Test Item Value Reference Range Comments MAGNESIUM (BEAKER) (test mmbr=827) 2.4 mg/dL 1.5-3.0 BASIC METABOLIC [id number] 06:25:00 Test Item Value Reference Range Comments SODIUM (BEAKER) (test 138 meq/L 135-148 bruz=065) POTASSIUM (BEAKER) (test 3.9 meq/L 3.5-5.5 rolo=802) CHLORIDE (BEAKER) (test 110 meq/L 98-106 pkir=803) CO2 (BEAKER) (test 19 meq/L 20-31 wmlp=207) BLOOD UREA NITROGEN 3 mg/dL 10-26 (BEAKER) (test cmre=494) CREATININE (BEAKER) (test 0.79 mg/dL 0.50-1.20 xbqd=717) GLUCOSE RANDOM (BEAKER) 104 mg/dL 70-110 (test awzx=355) CALCIUM (BEAKER) (test 8.6 mg/dL 8.5-10.5 dkpp=758) EGFR (BEAKER) (test 94 mL/min/1.73 sq m ESTIMATED GFR IS NOT mvjc=1121) ACCURATE CREATININE CLEARANCE IN PREDICTING GLOMERULAR FILTRATION RATE. ESTIMATED GFR IS NOT APPLICABLE FOR DIALYSIS PATIENTS. CBC W/PLT COUNT & AUTO [id number] 05:58:00 Test Item Value Reference Range Comments WHITE BLOOD CELL COUNT (BEAKER) (test hjbs=461) 9.2 K/ L 4.0-10.0 RED BLOOD CELL COUNT (BEAKER) (test dlir=215) 4.36 M/ L 4.00-5.00 HEMOGLOBIN (BEAKER) (test doen=810) 12.6 GM/DL 12.0-15.0 HEMATOCRIT (BEAKER) (test aofi=255) 37.0 % 36.0-45.0 MEAN CORPUSCULAR VOLUME (BEAKER) (test xmnu=009) 84.8 fL 82.0-99.0 MEAN CORPUSCULAR HEMOGLOBIN (BEAKER) (test 29.0 pg 27.0-33.0 dyms=318) MEAN CORPUSCULAR HEMOGLOBIN CONC (BEAKER) (test 34.2 GM/DL 32.0-36.0 tvnx=150) RED CELL DISTRIBUTION WIDTH (BEAKER) (test 12.5 % 12.0-15.0 jzax=543) PLATELET COUNT (BEAKER) (test ejad=519) 359 K/CU MM 150-430 MEAN PLATELET VOLUME (BEAKER) (test rxcb=557) 7.2 fL 6.5-10.5 NUCLEATED RED BLOOD CELLS (BEAKER) (test 0 /100 WBC 0-0 ndww=908) NEUTROPHILS RELATIVE PERCENT (BEAKER) (test 53 % qcek=965) LYMPHOCYTES RELATIVE PERCENT (BEAKER) (test 40 % pkbl=370) MONOCYTES RELATIVE PERCENT (BEAKER) (test 5 % dwkd=457) EOSINOPHILS RELATIVE PERCENT (BEAKER) (test 2 % vwfr=674) BASOPHILS RELATIVE PERCENT (BEAKER) (test 0 % atmz=669) NEUTROPHILS ABSOLUTE COUNT (BEAKER) (test 4.90 K/ L 1.80-8.00 ogcf=029) LYMPHOCYTES ABSOLUTE COUNT (BEAKER) (test 3.70 K/ L 1.48-4.50 gjry=840) MONOCYTES ABSOLUTE COUNT (BEAKER) (test 0.50 K/ L 0.00-1.30 bwft=597) EOSINOPHILS ABSOLUTE COUNT (BEAKER) (test 0.20 K/ L 0.00-0.50 dsoj=762) BASOPHILS ABSOLUTE COUNT (BEAKER) (test 0.00 K/ L 0.00-0.20 brxq=380) POCT-GLUCOSE [id number] 05:38:00 Test Item Value Reference Range Comments POC-GLUCOSE METER (BEAKER) 102 mg/dL 70-110 TESTED AT [address] (test vaqw=3971) [facility] [address] POCT-GLUCOSE [id number] 03:29:00 Test Item Value Reference Range Comments POC-GLUCOSE METER (BEAKER) 163 mg/dL 70-110 TESTED AT [address] (test lmlc=8064) [facility] [address] POCT-GLUCOSE [id number] 03:29:00 Test Item Value Reference Range Comments POC-GLUCOSE METER (BEAKER) 155 mg/dL 70-110 TESTED AT [facility] [address] [facility] (test mtag=5293) [facility] [address] BASIC METABOLIC [id number] 01:42:00 Test Item Value Reference Range Comments SODIUM (BEAKER) (test 136 meq/L 135-148 uime=423) POTASSIUM (BEAKER) (test 3.7 meq/L 3.5-5.5 ulvg=108) CHLORIDE (BEAKER) (test 109 meq/L 98-106 ifcm=018) CO2 (BEAKER) (test 17 meq/L 20-31 hkle=073) BLOOD UREA NITROGEN 3 mg/dL - (BEAKER) (test tiln=894) CREATININE (BEAKER) (test 0.79 mg/dL 0.50-1.20 tdbh=907) GLUCOSE RANDOM (BEAKER) 153 mg/dL 70-110 (test tyoq=181) CALCIUM (BEAKER) (test 8.2 mg/dL 8.5-10.5 pzml=029) EGFR (BEAKER) (test 94 mL/min/1.73 sq m ESTIMATED GFR IS NOT hsve=4864) ACCURATE CREATININE CLEARANCE IN PREDICTING GLOMERULAR FILTRATION RATE. ESTIMATED GFR IS NOT APPLICABLE FOR DIALYSIS PATIENTS. [id number] 01:39:00 Test Item Value Reference Range Comments PHOSPHORUS (BEAKER) (test hamr=510) 2.1 mg/dL 2.5-4.5 [id number] 01:39:00 Test Item Value Reference Range Comments MAGNESIUM (BEAKER) (test wulm=321) 2.0 mg/dL 1.5-3.0 POCT-GLUCOSE [id number] 01:19:00 Test Item Value Reference Range Comments POC-GLUCOSE METER (BEAKER) 152 mg/dL 70-110 TESTED AT [facility] [place] [address] [facility] (test egmx=9030) [facility] [address] POCT-GLUCOSE [id number] 01:07:00 Test Item Value Reference Range Comments POC-GLUCOSE METER (BEAKER) 145 mg/dL 70-110 TESTED AT [facility] [place] [address] [facility] (test tzcg=4039) WAY [facility] [address] POCT-GLUCOSE [id number] 01:07:00 Test Item Value Reference Range Comments POC-GLUCOSE METER (BEAKER) 165 mg/dL 70-110 TESTED AT [facility] [place] [address] [facility] (test wxqf=9369) [facility] [address] POCT-GLUCOSE [id number] 01:07:00 Test Item Value Reference Range Comments POC-GLUCOSE METER (BEAKER) 163 mg/dL 70-110 TESTED AT [facility] [place] [address] [facility] (test pmbn=7367) [facility] [address] BASIC METABOLIC [id number] 20:59:00 Test Item Value Reference Range Comments SODIUM (BEAKER) (test 137 meq/L 135-148 sdzr=823) POTASSIUM (BEAKER) (test 3.9 meq/L 3.5-5.5 Specimen slightly qdfm=440) hemolyzed CHLORIDE (BEAKER) (test 111 meq/L 98-106 wnob=124) CO2 (BEAKER) (test 13 meq/L 20-31 slaf=426) BLOOD UREA NITROGEN 4 mg/dL 10-26 (BEAKER) (test uprv=992) CREATININE (BEAKER) (test 0.83 mg/dL 0.50-1.20 Specimen slightly zmrz=990) hemolyzed GLUCOSE RANDOM (BEAKER) 160 mg/dL 70-110 (test kvnj=592) CALCIUM (BEAKER) (test 8.5 mg/dL 8.5-10.5 nyou=375) EGFR (BEAKER) (test 89 mL/min/1.73 sq m ESTIMATED GFR IS NOT idor=4637) ACCURATE CREATININE CLEARANCE IN PREDICTING GLOMERULAR FILTRATION RATE. ESTIMATED GFR IS NOT APPLICABLE FOR DIALYSIS PATIENTS. [id number] 20:58:00 Test Item Value Reference Range Comments MAGNESIUM (BEAKER) (test 1.8 mg/dL 1.5-3.0 Specimen slightly hemolyzed oadu=356) [id number] 20:58:00 Test Item Value Reference Range Comments PHOSPHORUS (BEAKER) (test 2.2 mg/dL 2.5-4.5 Specimen slightly hemolyzed dilq=008) POCT-GLUCOSE [id number] 18:02:00 Test Item Value Reference Range Comments POC-GLUCOSE METER (BEAKER) 176 mg/dL 70-110 TESTED AT [facility] [place] [address] [facility] (test txsj=2033) [facility] [address] [id number] 16:46:00 Test Item Value Reference Range Comments MAGNESIUM (BEAKER) (test 2.1 mg/dL 1.5-3.0 Specimen slightly hemolyzed whbj=691) [id number] 16:46:00 Test Item Value Reference Range Comments PHOSPHORUS (BEAKER) (test 2.1 mg/dL 2.5-4.5 Specimen slightly hemolyzed vsvs=614) BASIC METABOLIC [id number] 16:46:00 Test Item Value Reference Range Comments SODIUM (BEAKER) (test 134 meq/L 135-148 vzis=055) POTASSIUM (BEAKER) (test 4.4 meq/L 3.5-5.5 Specimen slightly uwvw=204) hemolyzed CHLORIDE (BEAKER) (test 109 meq/L 98-106 hucj=160) CO2 (BEAKER) (test 13 meq/L 20-31 oowx=242) BLOOD UREA NITROGEN 5 mg/dL 10-26 (BEAKER) (test hqbc=944) CREATININE (BEAKER) (test 0.79 mg/dL 0.50-1.20 Specimen slightly hoxw=745) hemolyzed GLUCOSE RANDOM (BEAKER) 177 mg/dL 70-110 (test fcbi=519) CALCIUM (BEAKER) (test 7.8 mg/dL 8.5-10.5 fvlw=494) EGFR (BEAKER) (test 94 mL/min/1.73 sq m ESTIMATED GFR IS NOT iyyg=9051) ACCURATE CREATININE CLEARANCE IN PREDICTING GLOMERULAR FILTRATION RATE. ESTIMATED GFR IS NOT APPLICABLE FOR DIALYSIS PATIENTS. CALCIUM, [id number] 16:21:00 Test Item Value Reference Range Comments CALCIUM IONIZED (BEAKER) (test boan=990) 1.13 mmol/L 1.12-1.27 PH, BLOOD (BEAKER) (test lovy=5113) 7.30 Check serum Ionized Calcium level after 4 hours after IV Calcium replacement.POCT-GLUCOSE [id number] 16:12:00 Test Item Value Reference Range Comments POC-GLUCOSE METER (BEAKER) 191 mg/dL 70-110 TESTED AT [facility] [place] [address] [facility] (test pccs=1904) WAY [facility] [address] POCT-GLUCOSE [id number] 15:20:00 Test Item Value Reference Range Comments POC-GLUCOSE METER (BEAKER) 181 mg/dL 70-110 TESTED AT [facility] [place] [address] [facility] (test yacp=3997) WAY [facility] [address] POCT-GLUCOSE [id number] 14:15:00 Test Item Value Reference Range Comments POC-GLUCOSE METER (BEAKER) 169 mg/dL 70-110 TESTED AT [facility] [place] [address] [facility] (test vgjs=6260) [facility] [address] BASIC METABOLIC [id number] 13:44:00 Test Item Value Reference Range Comments SODIUM (BEAKER) (test 137 meq/L 135-148 sagc=184) POTASSIUM (BEAKER) (test 3.8 meq/L 3.5-5.5 dnuz=967) CHLORIDE (BEAKER) (test 112 meq/L 98-106 ennh=094) CO2 (BEAKER) (test 13 meq/L 20-31 knwy=911) BLOOD UREA NITROGEN 7 mg/dL - (BEAKER) (test hhpx=838) CREATININE (BEAKER) (test 0.78 mg/dL 0.50-1.20 ejez=434) GLUCOSE RANDOM (BEAKER) 141 mg/dL 70-110 (test fctm=411) CALCIUM (BEAKER) (test 7.7 mg/dL 8.5-10.5 nooo=761) EGFR (BEAKER) (test 95 mL/min/1.73 sq m ESTIMATED GFR IS NOT chek=2731) ACCURATE CREATININE CLEARANCE IN PREDICTING GLOMERULAR FILTRATION RATE. ESTIMATED GFR IS NOT APPLICABLE FOR DIALYSIS PATIENTS. POCT-GLUCOSE [id number] 13:24:00 Test Item Value Reference Range Comments POC-GLUCOSE METER (BEAKER) 157 mg/dL 70-110 TESTED AT [facility] [place] [address] [facility] (test kxlt=1713) WAY [facility] [address] POCT-GLUCOSE [id number] 12:34:00 Test Item Value Reference Range Comments POC-GLUCOSE METER (BEAKER) 131 mg/dL 70-110 TESTED AT [facility] [place] [address] [facility] (test mjwf=0502) WAY [place] [address] POCT-GLUCOSE [id number] 11:39:00 Test Item Value Reference Range Comments POC-GLUCOSE METER (BEAKER) 160 mg/dL 70-110 TESTED AT [facility] [place] [address] [facility] (test nnsc=4292) [facility] [address] [id number] 11:13:00 Test Item Value Reference Range Comments PROCALCITONIN (BEAKER) (test ztbj=3672) < ng/mL <0.05 SEPSIS RISK (ng/mL)Low: 0.05-0.50Intermediate: 0.51-2.00High: & gt;=2.01POCT-GLUCOSE [id number] 10:40:00 Test Item Value Reference Range Comments POC-GLUCOSE METER (BEAKER) 202 mg/dL 70-110 TESTED AT [facility] [place] [address] [facility] (test kwsg=5527) [facility] [address] [id number] 10:04:00 Test Item Value Reference Range Comments PHOSPHORUS (BEAKER) (test 1.4 mg/dL 2.5-4.5 Specimen slightly hemolyzed myga=604) BASIC METABOLIC [id number] 10:04:00 Test Item Value Reference Range Comments SODIUM (BEAKER) (test 138 meq/L 135-148 bqph=036) POTASSIUM (BEAKER) (test 4.0 meq/L 3.5-5.5 Specimen slightly lvnx=933) hemolyzed CHLORIDE (BEAKER) (test 113 meq/L 98-106 giuj=877) CO2 (BEAKER) (test 11 meq/L 20-31 tvty=569) BLOOD UREA NITROGEN 9 mg/dL 10-26 (BEAKER) (test mqcb=602) CREATININE (BEAKER) (test 0.88 mg/dL 0.50-1.20 Specimen slightly hlji=314) hemolyzed GLUCOSE RANDOM (BEAKER) 224 mg/dL 70-110 (test vejw=224) CALCIUM (BEAKER) (test 7.9 mg/dL 8.5-10.5 asia=142) EGFR (BEAKER) (test 83 mL/min/1.73 sq m ESTIMATED GFR IS NOT owpr=8587) ACCURATE CREATININE CLEARANCE IN PREDICTING GLOMERULAR FILTRATION RATE. ESTIMATED GFR IS NOT APPLICABLE FOR DIALYSIS PATIENTS. [id number] 10:02:00 Test Item Value Reference Range Comments MAGNESIUM (BEAKER) (test 1.8 mg/dL 1.5-3.0 Specimen slightly hemolyzed fpdp=891) POCT-GLUCOSE [id number] 09:36:00 Test Item Value Reference Range Comments POC-GLUCOSE METER (BEAKER) 212 mg/dL 70-110 TESTED AT [facility] [place] [address] [facility] (test lctm=0147) [facility] [address] POCT-GLUCOSE [id number] 08:43:00 Test Item Value Reference Range Comments POC-GLUCOSE METER (BEAKER) 268 mg/dL 70-110 TESTED AT [facility] [place] [address] [facility] (test orfq=3936) [facility] [address] [id number] 07:47:00 Test Item Value Reference Range Comments POTASSIUM (BEAKER) (test zwhf=939) 4.0 meq/L 3.5-5.5 If last glucose was less than 500, may do bedside glucose instead of serum glucose.[id number] 07:47:00 Test Item Value Reference Range Comments GLUCOSE RANDOM (BEAKER) (test otks=618) 370 mg/dL 70-110 If last glucose was less than 500, may do bedside glucose instead of serum glucose.POCT-GLUCOSE [id number] 07:31:00 Test Item Value Reference Range Comments POC-GLUCOSE METER (BEAKER) 328 mg/dL 70-110 Notified VI DAVIS/TESTED AT [facility] [place] (test jrju=1512) [address] [facility] [address] [place] [address] POCT-GLUCOSE [id number] 07:31:00 Test Item Value Reference Range Comments POC-GLUCOSE METER (BEAKER) 414 mg/dL 70-110 TESTED AT [facility] [place] [id number] [place] [address] (test zfyb=3677) [facility] [address] [id number] 06:57:00 Test Item Value Reference Range Comments POTASSIUM (BEAKER) (test camz=647) 4.5 meq/L 3.5-5.5 [id number] 06:51:00 Test Item Value Reference Range Comments GLUCOSE RANDOM (BEAKER) (test gpnf=459) 523 mg/dL 70-110 If last glucose was less than 500, may do bedside glucose instead of serum glucose.URINALYSIS W/ REFLEX URINE [id number] 06:29:00 Test Item Value Reference Range Comments COLOR (BEAKER) (test jvmw=658) Colorless CLARITY (BEAKER) (test kvbp=264) Hazy SPECIFIC GRAVITY UA (BEAKER) (test mywe=524) 1.022 1.001-1.035 PH UA (BEAKER) (test bufp=710) 5.0 5.0-8.0 PROTEIN UA (BEAKER) (test clte=686) Negative Negative GLUCOSE UA (BEAKER) (test jffz=504) >500 mg/dL Negative KETONES UA (BEAKER) (test ftiw=442) 80 mg/dL Negative BILIRUBIN UA (BEAKER) (test qwhj=909) Negative Negative BLOOD UA (BEAKER) (test udkd=516) Large Negative NITRITE UA (BEAKER) (test hxax=047) Negative Negative LEUKOCYTE ESTERASE UA (BEAKER) (test uiwh=692) Negative Negative UROBILINOGEN UA (BEAKER) (test jyoo=349) < mg/dL 0.2-1.0 RBC UA (BEAKER) (test pmxy=204) 170 /HPF WBC UA (BEAKER) (test lugg=624) 27 /HPF MUCUS (BEAKER) (test tsvg=7297) Rare SOURCE(BEAKER) (test vrcf=5908) RAPID INFLUENZA A&B [id number] 06:13:00 Test Item Value Reference Range Comments RAPID INFLUENZA A AG (BEAKER) (test pzmm=3593) Negative Negative RAPID INFLUENZA B AG (BEAKER) (test zjtd=8853) Negative Negative SCREEN, [id number] 05:58:00 Test Item Value Reference Range Comments TEST URINE (BEAKER) (test buqj=967) Negative RAD, CHEST, 1 VIEW, NON [id number] 05:52:00Reason for exam:-> EMESISReason for exam:->BLOOD SUGAR PROBLEMShould this be performed at the bedside?->YesIs the patient ?->NoFINAL REPORT Comparison examination: 04/07/2017 No pneumothorax, focal pulmonary consolidation, or significant pleural effusion. Normal cardiomediastinal contours. Normal skeleton and soft tissues. Impression: No acute abnormality. Signed: Joesph Foyeport Verified Date/Time: 05/18/2017 05:52 :18 Reading Location: [facility] C0[facility] Transitional Reading Room HEMOGLOBIN [id number] 05:49:00 Test Item Value Reference Range Comments HEMOGLOBIN A1C (BEAKER) (test mplk=418) 13.2 % 4.3-6.1 BASIC METABOLIC [id number] 05:28:00 Test Item Value Reference Range Comments SODIUM (BEAKER) (test 132 meq/L 135-148 nczp=691) POTASSIUM (BEAKER) (test 4.4 meq/L 3.5-5.5 zywl=360) CHLORIDE (BEAKER) (test 101 meq/L 98-106 lqcy=459) CO2 (BEAKER) (test 8 meq/L 20-31 vagq=945) BLOOD UREA NITROGEN 12 mg/dL 10-26 (BEAKER) (test boie=199) CREATININE (BEAKER) (test 1.29 mg/dL 0.50-1.20 pzmg=921) GLUCOSE RANDOM (BEAKER) 622 mg/dL 70-110 (test ejlw=956) CALCIUM (BEAKER) (test 8.7 mg/dL 8.5-10.5 nmhy=847) EGFR (BEAKER) (test 53 mL/min/1.73 sq m ESTIMATED GFR IS NOT wtrp=0889) ACCURATE CREATININE CLEARANCE IN PREDICTING GLOMERULAR FILTRATION RATE. ESTIMATED GFR IS NOT APPLICABLE FOR DIALYSIS PATIENTS. If last glucose was less than 500, may do bedside glucose instead of serum glucose.HEPATIC FUNCTION [id number] 05:27:00 Test Item Value Reference Range Comments TOTAL PROTEIN (BEAKER) (test wtyf=730) 7.9 gm/dL 6.0-8.5 ALBUMIN (BEAKER) (test scbu=8631) 4.1 g/dL 3.5-5.0 BILIRUBIN TOTAL (BEAKER) (test jpyp=964) 0.4 mg/dL 0.1-1.3 BILIRUBIN DIRECT (BEAKER) (test wjqb=445) 0.2 mg/dL 0.0-0.5 ALKALINE PHOSPHATASE (BEAKER) (test myzy=034) 136 U/L 30-115 AST (SGOT) (BEAKER) (test gxog=297) 11 U/L 5-40 ALT (SGPT) (BEAKER) (test alno=654) 10 U/L 6-50 If last glucose was less than 500, may do bedside glucose instead of serum glucose.Specimen slightlylipemicBLOOD GAS, [id number] 05:04:00 Test Item Value Reference Range Comments PH VENOUS (BEAKER) (test unbr=951) 7.17 7.32-7.42 PCO2 VENOUS (BEAKER) (test otlw=785) 30 mmHg 41-51 PO2 VENOUS (BEAKER) (test ggjj=268) 35 mmHg 25-40 O2 SATURATION VENOUS (BEAKER) (test txom=334) 53.6 % 40.0-70.0 HCO3 VENOUS (BEAKER) (test odha=274) 11 mmol/L 21-29 BASE EXCESS VENOUS (BEAKER) (test itzc=514) -16.5 mmol/L -2.0-3.0 PATIENT TEMPERATURE (BEAKER) (test jqun=6193) 36.9 C FIO2 (BEAKER) (test ykkx=4442) 21.0 % KETONE, [id number] 05:03:00 Test Item Value Reference Range Comments KETONES, BLOOD (BEAKER) (test yybd=3461) 5.8 mmol/L <0.4 CBC W/PLT COUNT & AUTO [id number] 05:02:00 Test Item Value Reference Range Comments WHITE BLOOD CELL COUNT (BEAKER) (test tcuz=347) 15.3 K/ L 4.0-10.0 RED BLOOD CELL COUNT (BEAKER) (test mlvr=862) 4.71 M/ L 4.00-5.00 HEMOGLOBIN (BEAKER) (test ywjg=451) 13.5 GM/DL 12.0-15.0 HEMATOCRIT (BEAKER) (test mmbe=545) 40.9 % 36.0-45.0 MEAN CORPUSCULAR VOLUME (BEAKER) (test nyxd=211) 86.8 fL 82.0-99.0 MEAN CORPUSCULAR HEMOGLOBIN (BEAKER) (test 28.7 pg 27.0-33.0 gnjn=099) MEAN CORPUSCULAR HEMOGLOBIN CONC (BEAKER) (test 33.1 GM/DL 32.0-36.0 wmge=963) RED CELL DISTRIBUTION WIDTH (BEAKER) (test 12.3 % 12.0-15.0 ppwv=342) PLATELET COUNT (BEAKER) (test yiax=216) 382 K/CU MM 150-430 MEAN PLATELET VOLUME (BEAKER) (test ecfe=810) 7.7 fL 6.5-10.5 NUCLEATED RED BLOOD CELLS (BEAKER) (test 0 /100 WBC 0-0 nhhq=280) NEUTROPHILS RELATIVE PERCENT (BEAKER) (test 73 % bdjg=501) LYMPHOCYTES RELATIVE PERCENT (BEAKER) (test 21 % geuo=671) MONOCYTES RELATIVE PERCENT (BEAKER) (test 5 % ezsu=957) EOSINOPHILS RELATIVE PERCENT (BEAKER) (test 1 % jvic=566) BASOPHILS RELATIVE PERCENT (BEAKER) (test 0 % wgoo=931) NEUTROPHILS ABSOLUTE COUNT (BEAKER) (test 11.20 K/ L 1.80-8.00 uola=057) LYMPHOCYTES ABSOLUTE COUNT (BEAKER) (test 3.30 K/ L 1.48-4.50 gsac=152) MONOCYTES ABSOLUTE COUNT (BEAKER) (test 0.70 K/ L 0.00-1.30 bgmb=070) EOSINOPHILS ABSOLUTE COUNT (BEAKER) (test 0.10 K/ L 0.00-0.50 xmwq=960) BASOPHILS ABSOLUTE COUNT (BEAKER) (test 0.00 K/ L 0.00-0.20 jtfw=373) POCT-GLUCOSE [id number] 04:49:00 Test Item Value Reference Range Comments POC-GLUCOSE METER (BEAKER) > mg/dL 70-110 OUTSIDE MEASURING RANGETESTED AT (test oluy=8589) [facility] [place] [address] [facility] [address] BLOOD [id number] 00:00:00 Test Item Value Reference Range Comments CULTURE (BEAKER) (test fqbg=5217) No growth in 5 days BLOOD [id number] 00:00:00 Test Item Value Reference Range Comments CULTURE (BEAKER) (test iirs=8570) No growth in 5 days URINE [id number] 15:21:00 Test Item Value Reference Range Comments CULTURE (BEAKER) (test wtko=3508) >100,000 col/mL skin christophe POCT-GLUCOSE [id number] 14:37:00 Test Item Value Reference Range Comments POC-GLUCOSE METER (BEAKER) 326 mg/dL 70-110 TESTED AT [facility] [address] [facility] (test ojmn=5532) [facility] [address] POCT-GLUCOSE [id number] 13:26:00 Test Item Value Reference Range Comments POC-GLUCOSE METER (BEAKER) 331 mg/dL 70-110 TESTED AT [facility] [address] [facility] (test ljsp=4051) [facility] [address] CBC W/PLT COUNT & AUTO [id number] 11:34:00 Test Item Value Reference Range Comments WHITE BLOOD CELL COUNT (BEAKER) (test vxxv=785) 5.9 K/ L 3.5-10.5 RED BLOOD CELL COUNT (BEAKER) (test ubfn=393) 4.15 M/ L 3.93-5.22 HEMOGLOBIN (BEAKER) (test aanu=926) 11.7 GM/DL 11.2-15.7 HEMATOCRIT (BEAKER) (test ysub=695) 34.9 % 34.1-44.9 MEAN CORPUSCULAR VOLUME (BEAKER) (test hhhc=735) 84.1 fL 79.4-94.8 MEAN CORPUSCULAR HEMOGLOBIN (BEAKER) (test 28.2 pg 25.6-32.2 vldo=899) MEAN CORPUSCULAR HEMOGLOBIN CONC (BEAKER) (test 33.5 GM/DL 32.2-35.5 ikeu=716) RED CELL DISTRIBUTION WIDTH (BEAKER) (test 12.8 % 11.7-14.4 dlwo=349) PLATELET COUNT (BEAKER) (test bjrt=810) 272 K/CU MM 150-450 MEAN PLATELET VOLUME (BEAKER) (test vrak=872) 9.5 fL 9.4-12.3 NUCLEATED RED BLOOD CELLS (BEAKER) (test 0 /100 WBC 0-0 jfmt=921) NEUTROPHILS RELATIVE PERCENT (BEAKER) (test 44 % qkvx=877) LYMPHOCYTES RELATIVE PERCENT (BEAKER) (test 47 % mbnq=815) MONOCYTES RELATIVE PERCENT (BEAKER) (test 6 % lsym=438) EOSINOPHILS RELATIVE PERCENT (BEAKER) (test 2 % zwia=579) BASOPHILS RELATIVE PERCENT (BEAKER) (test 1 % movo=290) NEUTROPHILS ABSOLUTE COUNT (BEAKER) (test 2.61 K/ L 1.56-6.13 xzcb=103) LYMPHOCYTES ABSOLUTE COUNT (BEAKER) (test 2.79 K/ L 1.18-3.74 vheo=252) MONOCYTES ABSOLUTE COUNT (BEAKER) (test 0.33 K/ L 0.24-0.36 jgzm=063) EOSINOPHILS ABSOLUTE COUNT (BEAKER) (test 0.10 K/ L 0.04-0.36 huny=614) BASOPHILS ABSOLUTE COUNT (BEAKER) (test 0.04 K/ L 0.01-0.08 iyhn=139) IMMATURE GRANULOCYTES-RELATIVE PERCENT (BEAKER) 0 % 0-1 (test eaca=3353) (MANUAL DIFFERENTIAL)2017-04-09 11:34:00 Test Item Value Reference Range Comments TOTAL COUNTED (BEAKER) (test kgow=4975) POCT-GLUCOSE [id number] 11:18:00 Test Item Value Reference Range Comments POC-GLUCOSE METER (BEAKER) 349 mg/dL 70-110 TESTED AT [address] (test ydji=3109) [place] [address] POCT-GLUCOSE [id number] 09:34:00 Test Item Value Reference Range Comments POC-GLUCOSE METER (BEAKER) 61 mg/dL 70-110 TESTED AT [address] (test xvbq=0599) [place] [id number] POCT-GLUCOSE [id number] 08:48:00 Test Item Value Reference Range Comments POC-GLUCOSE METER (BEAKER) 79 mg/dL 70-110 TESTED AT [address] (test umdz=3333) [place] [id number] BASIC METABOLIC [id number] 06:12:00 Test Item Value Reference Range Comments SODIUM (BEAKER) (test 135 meq/L 136-145 hbhs=962) POTASSIUM (BEAKER) (test 4.7 meq/L 3.5-5.1 zead=707) CHLORIDE (BEAKER) (test 105 meq/L 98-107 kyjz=516) CO2 (BEAKER) (test 22 meq/L 22-29 brqa=098) BLOOD UREA NITROGEN 11 mg/dL 7-21 (BEAKER) (test wsgp=778) CREATININE (BEAKER) (test 0.83 mg/dL 0.57-1.25 yiim=799) GLUCOSE RANDOM (BEAKER) 387 mg/dL 70-105 (test zilg=099) CALCIUM (BEAKER) (test 8.7 mg/dL 8.4-10.2 bnxw=198) EGFR (BEAKER) (test 89 mL/min/1.73 sq m ESTIMATED GFR IS NOT pswe=4872) ACCURATE CREATININE CLEARANCE IN PREDICTING GLOMERULAR FILTRATION RATE. ESTIMATED GFR IS NOT APPLICABLE FOR DIALYSIS PATIENTS. KETONE, [id number] 05:43:00 Test Item Value Reference Range Comments KETONES, BLOOD (BEAKER) (test jnco=7565) 0.1 mmol/L <0.4 POCT-GLUCOSE [id number] 05:39:00 Test Item Value Reference Range Comments POC-GLUCOSE METER (BEAKER) 366 mg/dL 70-110 TESTED AT [address] (test baqm=7690) [facility] [address] POCT-GLUCOSE [id number] 22:32:00 Test Item Value Reference Range Comments POC-GLUCOSE METER (BEAKER) 302 mg/dL 70-110 TESTED AT [address] (test gdax=9493) [facility] [address] POCT-GLUCOSE [id number] 19:15:00 Test Item Value Reference Range Comments POC-GLUCOSE METER (BEAKER) 273 mg/dL 70-110 TESTED AT [address] (test rgcj=3756) [facility] [address] POCT-GLUCOSE [id number] 17:49:00 Test Item Value Reference Range Comments POC-GLUCOSE METER (BEAKER) 174 mg/dL 70-110 TESTED AT [address] (test rram=0812) [place] [id number] POCT-GLUCOSE [id number] 17:02:00 Test Item Value Reference Range Comments POC-GLUCOSE METER (BEAKER) 171 mg/dL 70-110 TESTED AT [address] (test ucra=0527) [facility] [address] POCT-GLUCOSE [id number] 15:17:00 Test Item Value Reference Range Comments POC-GLUCOSE METER (BEAKER) 135 mg/dL 70-110 TESTED AT [address] (test vhtw=8855) [place] [id number] POCT-GLUCOSE [id number] 13:10:00 Test Item Value Reference Range Comments POC-GLUCOSE METER (BEAKER) 61 mg/dL 70-110 TESTED AT [address] (test wzli=5188) [facility] [address] POCT-GLUCOSE [id number] 11:21:00 Test Item Value Reference Range Comments POC-GLUCOSE METER (BEAKER) 57 mg/dL 70-110 Notified VI DAVIS/TESTED AT [facility] (test wxrl=4494) [address] [facility] [address] POCT-GLUCOSE [id number] 08:02:00 Test Item Value Reference Range Comments POC-GLUCOSE METER (BEAKER) 68 mg/dL 70-110 Notified VI DAVIS/TESTED AT [facility] (test vedx=1018) [address] [facility] [address] CBC W/PLT COUNT & AUTO [id number] 08:02:00 Test Item Value Reference Range Comments WHITE BLOOD CELL COUNT (BEAKER) (test rqmc=702) 6.6 K/ L 3.5-10.5 RED BLOOD CELL COUNT (BEAKER) (test levg=298) 3.97 M/ L 3.93-5.22 HEMOGLOBIN (BEAKER) (test rswq=635) 11.2 GM/DL 11.2-15.7 HEMATOCRIT (BEAKER) (test lvdk=101) 33.2 % 34.1-44.9 MEAN CORPUSCULAR VOLUME (BEAKER) (test dbwa=108) 83.6 fL 79.4-94.8 MEAN CORPUSCULAR HEMOGLOBIN (BEAKER) (test 28.2 pg 25.6-32.2 nzkg=357) MEAN CORPUSCULAR HEMOGLOBIN CONC (BEAKER) (test 33.7 GM/DL 32.2-35.5 imkd=578) RED CELL DISTRIBUTION WIDTH (BEAKER) (test 12.7 % 11.7-14.4 yatn=003) PLATELET COUNT (BEAKER) (test qlcc=587) 231 K/CU MM 150-450 MEAN PLATELET VOLUME (BEAKER) (test gklk=507) 9.5 fL 9.4-12.3 NUCLEATED RED BLOOD CELLS (BEAKER) (test 0 /100 WBC 0-0 nqvl=006) NEUTROPHILS RELATIVE PERCENT (BEAKER) (test 33 % oukj=550) LYMPHOCYTES RELATIVE PERCENT (BEAKER) (test 58 % gnzg=079) MONOCYTES RELATIVE PERCENT (BEAKER) (test 6 % objz=560) EOSINOPHILS RELATIVE PERCENT (BEAKER) (test 2 % joda=559) BASOPHILS RELATIVE PERCENT (BEAKER) (test 1 % avmu=617) NEUTROPHILS ABSOLUTE COUNT (BEAKER) (test 2.20 K/ L 1.56-6.13 emku=187) LYMPHOCYTES ABSOLUTE COUNT (BEAKER) (test 3.84 K/ L 1.18-3.74 ijmi=316) MONOCYTES ABSOLUTE COUNT (BEAKER) (test 0.37 K/ L 0.24-0.36 ghrc=207) EOSINOPHILS ABSOLUTE COUNT (BEAKER) (test 0.13 K/ L 0.04-0.36 axgf=372) BASOPHILS ABSOLUTE COUNT (BEAKER) (test 0.04 K/ L 0.01-0.08 whai=373) IMMATURE GRANULOCYTES-RELATIVE PERCENT (BEAKER) 0 % 0-1 (test drsq=1227) POCT-GLUCOSE [id number] 06:58:00 Test Item Value Reference Range Comments POC-GLUCOSE METER (BEAKER) 95 mg/dL 70-110 TESTED AT [address] (test ipmd=5575) [place] [address] POCT-GLUCOSE [id number] 06:17:00 Test Item Value Reference Range Comments POC-GLUCOSE METER (BEAKER) 150 mg/dL 70-110 TESTED AT [address] (test mahy=7304) [place] [id number] POCT-GLUCOSE [id number] 05:18:00 Test Item Value Reference Range Comments POC-GLUCOSE METER (BEAKER) 101 mg/dL 70-110 TESTED AT [address] (test nlyo=4018) [place] [id number] POCT-GLUCOSE [id number] 05:07:00 Test Item Value Reference Range Comments POC-GLUCOSE METER (BEAKER) 119 mg/dL 70-110 TESTED AT [address] (test harl=1235) [place] [id number] BASIC METABOLIC [id number] 04:52:00 Test Item Value Reference Range Comments SODIUM (BEAKER) (test 140 meq/L 136-145 dpsl=907) POTASSIUM (BEAKER) (test 3.8 meq/L 3.5-5.1 kouj=829) CHLORIDE (BEAKER) (test 109 meq/L 98-107 wlhr=804) CO2 (BEAKER) (test 21 meq/L 22-29 vnfx=069) BLOOD UREA NITROGEN 7 mg/dL 7-21 (BEAKER) (test kxdy=692) CREATININE (BEAKER) (test 0.70 mg/dL 0.57-1.25 trfz=213) GLUCOSE RANDOM (BEAKER) 208 mg/dL 70-105 (test nysk=767) CALCIUM (BEAKER) (test 8.4 mg/dL 8.4-10.2 sgdv=612) EGFR (BEAKER) (test 108 mL/min/1.73 sq m ESTIMATED GFR IS NOT phdj=7339) ACCURATE CREATININE CLEARANCE IN PREDICTING GLOMERULAR FILTRATION RATE. ESTIMATED GFR IS NOT APPLICABLE FOR DIALYSIS PATIENTS. POCT-GLUCOSE [id number] 04:05:00 Test Item Value Reference Range Comments POC-GLUCOSE METER (BEAKER) 48 mg/dL 70-110 TESTED AT [address] (test vuzv=1175) [place] [id number] POCT-GLUCOSE [id number] 02:30:00 Test Item Value Reference Range Comments POC-GLUCOSE METER (BEAKER) 181 mg/dL 70-110 TESTED AT [address] (test mbot=2942) [place] [id number] POCT-GLUCOSE [id number] 02:10:00 Test Item Value Reference Range Comments POC-GLUCOSE METER (BEAKER) 37 mg/dL 70-110 Will Repeat Test/TESTED AT (test tppd=2109) [place] [id number] POCT-GLUCOSE [id number] 01:07:00 Test Item Value Reference Range Comments POC-GLUCOSE METER (BEAKER) 87 mg/dL 70-110 TESTED AT [address] (test zroq=2881) [facility] [address] BASIC METABOLIC [id number] 00:44:00 Test Item Value Reference Range Comments SODIUM (BEAKER) (test 142 meq/L 136-145 eurd=883) POTASSIUM (BEAKER) (test 3.6 meq/L 3.5-5.1 lnbh=882) CHLORIDE (BEAKER) (test 112 meq/L 98-107 afyn=819) CO2 (BEAKER) (test 22 meq/L 22-29 sivs=852) BLOOD UREA NITROGEN 8 mg/dL 7-21 (BEAKER) (test phck=700) CREATININE (BEAKER) (test 0.83 mg/dL 0.57-1.25 zqvt=643) GLUCOSE RANDOM (BEAKER) 109 mg/dL 70-105 (test qbsv=731) CALCIUM (BEAKER) (test 8.6 mg/dL 8.4-10.2 ibbs=798) EGFR (BEAKER) (test 89 mL/min/1.73 sq m ESTIMATED GFR IS NOT hkrg=1252) ACCURATE CREATININE CLEARANCE IN PREDICTING GLOMERULAR FILTRATION RATE. ESTIMATED GFR IS NOT APPLICABLE FOR DIALYSIS PATIENTS. POCT-GLUCOSE [id number] 00:30:00 Test Item Value Reference Range Comments POC-GLUCOSE METER (BEAKER) 96 mg/dL 70-110 TESTED AT [address] (test ounw=7255) [place] [address] POCT-GLUCOSE [id number] 23:54:00 Test Item Value Reference Range Comments POC-GLUCOSE METER (BEAKER) 91 mg/dL 70-110 TESTED AT [address] (test rety=2384) [place] [address] POCT-GLUCOSE [id number] 23:12:00 Test Item Value Reference Range Comments POC-GLUCOSE METER (BEAKER) 48 mg/dL 70-110 TESTED AT [address] (test ulgb=0792) [place] [id number] POCT-GLUCOSE [id number] 21:58:00 Test Item Value Reference Range Comments POC-GLUCOSE METER (BEAKER) 94 mg/dL 70-110 TESTED AT [address] (test fpld=3723) [place] [id number] BASIC METABOLIC [id number] 21:08:00 Test Item Value Reference Range Comments SODIUM (BEAKER) (test 137 meq/L 136-145 kpwu=287) POTASSIUM (BEAKER) (test 3.6 meq/L 3.5-5.1 pkao=309) CHLORIDE (BEAKER) (test 109 meq/L 98-107 gpvo=951) CO2 (BEAKER) (test 18 meq/L 22-29 ahbt=049) BLOOD UREA NITROGEN 6 mg/dL 7-21 (BEAKER) (test lzpt=630) CREATININE (BEAKER) (test 0.93 mg/dL 0.57-1.25 vobf=859) GLUCOSE RANDOM (BEAKER) 200 mg/dL 70-105 (test tppk=034) CALCIUM (BEAKER) (test 7.8 mg/dL 8.4-10.2 mpxg=121) EGFR (BEAKER) (test 78 mL/min/1.73 sq m ESTIMATED GFR IS NOT ewvq=2911) ACCURATE CREATININE CLEARANCE IN PREDICTING GLOMERULAR FILTRATION RATE. ESTIMATED GFR IS NOT APPLICABLE FOR DIALYSIS PATIENTS. POCT-GLUCOSE [id number] 20:57:00 Test Item Value Reference Range Comments POC-GLUCOSE METER (BEAKER) 165 mg/dL 70-110 TESTED AT [address] (test bkcf=3295) [place] [id number] 20:55:00 Test Item Value Reference Range Comments POTASSIUM (BEAKER) (test vwfd=648) 3.6 meq/L 3.5-5.1 URINALYSIS W/ [id number] 20:40:00 Test Item Value Reference Range Comments COLOR (BEAKER) (test jqou=786) Light Yellow CLARITY (BEAKER) (test gxzx=673) Clear SPECIFIC GRAVITY UA (BEAKER) (test mqaw=286) 1.009 1.001-1.035 PH UA (BEAKER) (test zwnc=555) 5.5 5.0-8.0 PROTEIN UA (BEAKER) (test idrh=173) Negative Negative GLUCOSE UA (BEAKER) (test kppk=561) >1000 mg/dL Negative KETONES UA (BEAKER) (test hnhp=398) 60 mg/dL Negative BILIRUBIN UA (BEAKER) (test vqwt=105) Negative Negative BLOOD UA (BEAKER) (test bvxr=125) Moderate Negative NITRITE UA (BEAKER) (test fxwl=146) Negative Negative LEUKOCYTE ESTERASE UA (BEAKER) (test kwat=528) Negative Negative UROBILINOGEN UA (BEAKER) (test gmcw=985) 0.2 mg/dL 0.2-1.0 RBC UA (BEAKER) (test cjlu=489) 0 /HPF WBC UA (BEAKER) (test eige=841) 1 /HPF SQUAMOUS EPITHELIAL (BEAKER) (test vvkw=309) 2 /HPF SOURCE(BEAKER) (test xqof=0207) POCT-GLUCOSE [id number] 19:59:00 Test Item Value Reference Range Comments POC-GLUCOSE METER (BEAKER) 282 mg/dL 70-110 TESTED AT [address] (test rtpv=0499) [place] [id number] POCT-GLUCOSE [id number] 19:02:00 Test Item Value Reference Range Comments POC-GLUCOSE METER (BEAKER) 374 mg/dL 70-110 Notified VI DAVIS/TESTED AT [facility] (test bpxw=3639) [address] [facility] [address] CBC W/PLT COUNT & AUTO [id number] 18:56:00 Test Item Value Reference Range Comments WHITE BLOOD CELL COUNT (BEAKER) (test kewo=391) 8.3 K/ L 3.5-10.5 RED BLOOD CELL COUNT (BEAKER) (test hhvg=644) 4.18 M/ L 3.93-5.22 HEMOGLOBIN (BEAKER) (test uxlp=095) 11.9 GM/DL 11.2-15.7 HEMATOCRIT (BEAKER) (test bixp=280) 35.0 % 34.1-44.9 MEAN CORPUSCULAR VOLUME (BEAKER) (test rkcr=387) 83.7 fL 79.4-94.8 MEAN CORPUSCULAR HEMOGLOBIN (BEAKER) (test 28.5 pg 25.6-32.2 fotn=723) MEAN CORPUSCULAR HEMOGLOBIN CONC (BEAKER) (test 34.0 GM/DL 32.2-35.5 gous=416) RED CELL DISTRIBUTION WIDTH (BEAKER) (test 12.7 % 11.7-14.4 zqol=964) PLATELET COUNT (BEAKER) (test jmxy=856) 307 K/CU MM 150-450 MEAN PLATELET VOLUME (BEAKER) (test kego=617) 9.5 fL 9.4-12.3 NUCLEATED RED BLOOD CELLS (BEAKER) (test 0 /100 WBC 0-0 dmda=055) NEUTROPHILS RELATIVE PERCENT (BEAKER) (test 42 % smre=688) LYMPHOCYTES RELATIVE PERCENT (BEAKER) (test 51 % qgbr=174) MONOCYTES RELATIVE PERCENT (BEAKER) (test 5 % qtiu=284) EOSINOPHILS RELATIVE PERCENT (BEAKER) (test 1 % fpyf=896) BASOPHILS RELATIVE PERCENT (BEAKER) (test 1 % jlsm=463) NEUTROPHILS ABSOLUTE COUNT (BEAKER) (test 3.52 K/ L 1.56-6.13 rujv=324) LYMPHOCYTES ABSOLUTE COUNT (BEAKER) (test 4.24 K/ L 1.18-3.74 putf=169) MONOCYTES ABSOLUTE COUNT (BEAKER) (test 0.39 K/ L 0.24-0.36 rswo=106) EOSINOPHILS ABSOLUTE COUNT (BEAKER) (test 0.09 K/ L 0.04-0.36 samu=795) BASOPHILS ABSOLUTE COUNT (BEAKER) (test 0.05 K/ L 0.01-0.08 easf=594) IMMATURE GRANULOCYTES-RELATIVE PERCENT (BEAKER) 0 % 0-1 (test eprh=3963) POCT-GLUCOSE [id number] 18:03:00 Test Item Value Reference Range Comments POC-GLUCOSE METER (BEAKER) 294 mg/dL 70-110 [facility]ED AT [facility] [facility] (test zgse=4760) [facility] [address] HEMOGLOBIN [id number] 17:45:00 Test Item Value Reference Range Comments HEMOGLOBIN A1C (BEAKER) (test zbmn=688) 12.6 % 4.3-6.1 RAD, CHEST, 1 VIEW, NON [id number] 17:20:00Reason for exam:->sobShould this be performed at [...] [place] Verified Date/Time: 04/07/2017 17:20:50 Reading Location: [address] Radiology Reading Room TSH/FREE T4 IF [id number] 17: 04:00 Test Item Value Reference Range Comments THYROID STIMULATING HORMONE (BEAKER) (test 0.95 uIU/mL 0.35-4.94 huej=218) TROPONIN [id number] 16:51:00 Test Item Value Reference Range Comments TROPONIN I (BEAKER) (test pnzn=949) < ng/mL 0.00-0.03 Effective 06/20/2014: Reference Range [...] renalfailure, acidosis, acute neurological disease, and persistent tachyarrhythmia.[id number] 16:45:00 Test Item Value Reference Range Comments LIPASE (BEAKER) (test grmn=836) 33 U/L 8-78 [id number] 16:45:00 Test Item Value Reference Range Comments AMYLASE (BEAKER) (test dhdm=004) 66 U/L 25-125 BASIC METABOLIC [id number] 16:45:00 Test Item Value Reference Range Comments SODIUM (BEAKER) (test 139 meq/L 136-145 iswc=897) POTASSIUM (BEAKER) (test 3.8 meq/L 3.5-5.1 fbih=805) CHLORIDE (BEAKER) (test 109 meq/L 98-107 nsbf=767) CO2 (BEAKER) (test 23 meq/L 22-29 jhyk=506) BLOOD UREA NITROGEN 8 mg/dL 7-21 (BEAKER) (test vgdh=427) CREATININE (BEAKER) (test 0.72 mg/dL 0.57-1.25 wded=337) GLUCOSE RANDOM (BEAKER) 125 mg/dL 70-105 (test okmf=442) CALCIUM (BEAKER) (test 8.4 mg/dL 8.4-10.2 fmpo=270) EGFR (BEAKER) (test 104 mL/min/1.73 sq m ESTIMATED GFR IS NOT ltwq=9394) ACCURATE CREATININE CLEARANCE IN PREDICTING GLOMERULAR FILTRATION RATE. ESTIMATED GFR IS NOT APPLICABLE FOR DIALYSIS PATIENTS. LACTIC ACID, VENOUS, WHOLE [id number] 16:45:00 Test Item Value Reference Range Comments LACTATE BLOOD VENOUS (2) (BEAKER) (test 1.1 mmol/L 0.5-2.2 gysb=2603) Effective 12/05/2015: Units/Reference Range ChangeNew: 0.5-2.2 mmol/L Previous: 5 -20 mg/dLKETONE, [id number] 16:41:00 Test Item Value Reference Range Comments KETONES, BLOOD (BEAKER) (test vtji=7078) 2.1 mmol/L <0.4 BLOOD GAS, [id number] 16:27:00 Test Item Value Reference Range Comments PH VENOUS (BEAKER) (test uabs=651) 7.36 7.32-7.42 PCO2 VENOUS (BEAKER) (test hoxy=354) 41 mmHg 41-51 PO2 VENOUS (BEAKER) (test eiwu=777) 18 mmHg 25-40 O2 SATURATION VENOUS (BEAKER) (test jxzl=429) 26.4 % 40.0-70.0 HCO3 VENOUS (BEAKER) (test apnv=044) 23 mmol/L 21-29 BASE EXCESS VENOUS (BEAKER) (test rjkw=812) -2.5 mmol/L -2.0-3.0 PATIENT TEMPERATURE (BEAKER) (test nzzy=6863) 37.0 C POCT-GLUCOSE [id number] 16:20:00 Test Item Value Reference Range Comments POC-GLUCOSE METER (BEAKER) 156 mg/dL 70-110 TESTED AT [address] (test lqhw=0963) [place] [address] POCT-GLUCOSE [id number] 15:28:00 Test Item Value Reference Range Comments POC-GLUCOSE METER (BEAKER) 101 mg/dL 70-110 TESTED AT [address] (test wvvc=0323) [place] [address]
[2019-04-20] MEDS ORDERED: NA CHLORIDE 0.9% 1,000 ML ONE ×2 (10:13→11:17)
[2019-04-20] MEDS ORDERED: INSULIN -REGULAR HUMAN 50 UNIT/0.5 ML ML ONE (10:24)
[2019-04-20] MEDS ORDERED: FAMOTIDINE 20 MG/2 ML VIAL IV ONE (10:25)
[2019-04-20] MEDS ORDERED: ONDANSETRON 4 MG/2 ML VIAL ONE ×2 (10:25→15:41)
[2019-04-20] MEDS ORDERED: MORPHINE 4 MG/ML SYR ONE ×2 (10:25→14:31)
[2019-04-20 10:35] LABS: Absolute Lymphocytes (CBC) 2.7 K/uL (0.7-4.9); Basophils % 0.3 % (0-1.3); Hematocrit 42.2 % (36.0-45.0); Lymphocytes % 23.1 % (15.3-44.8); MPV 8.3 fL (7.6-11.3); RBC Red Blood Cell Count 4.87 M/uL (3.86-4.86)
[2019-04-20 10:49] LABS: Albumin 4.4 g/dL (3.4-5.0); Bilirubin Direct 0.2 mg/dL (0-0.2); Bilirubin Total 0.7 mg/dL (0.2-1.0); Potassium 4.9 mmol/L (3.5-5.1); Protein, Total 8.2 g/dL (6.4-8.2)
[2019-04-20] MEDS ORDERED: INSULIN -REGULAR HUMAN 100 UNIT in NA CHLORIDE 0.9% 100 ML IV SCH ×2 (11:00→12:45)
--- NOTE | 2019-04-20 11:02 | ER ---
Nurse's Notes [facility] Name: Salome Santacruz Age: 19 yrs Sex: Female : 2000 Arrival Date: 04/20/2019 Time: 10:01 Bed 7 Private MD: Diagnosis: DKA, Hyperglycemia, Acidosis Presentation: 04/20 10:02 Presenting complaint: EMS states: BGL was 225 at 0600, pt took 36 units of insulin, BGL jl7 was 600 took another 10 units. Pt vomited in route, reports having a cold or allergies for the past few days. Transition of care: patient was not received from another setting of care. Onset of symptoms was April 20, 2019 at 06:00. Risk Assessment: Do you want to hurt yourself or someone else? Patient reports no desire to harm self or others. Initial Sepsis Screen: Does the patient meet any 2 criteria? No. Patient's initial sepsis screen is negative. Does the patient have a suspected source of infection? No. Patient's initial sepsis screen is negative. Care prior to arrival: Medication(s) given: Insulin 46 units total. 10:02 Method Of Arrival: EMS: [facility] 10:02 Acuity: BRIAN 2 jl7 Triage Assessment: 10:07 General: Appears in no apparent distress. uncomfortable, ill, Behavior is calm, jl7 cooperative, appropriate for age. Pain: Complains of pain in all over Pain currently is 8 out of 10 on a pain scale. Quality of pain is described as aching. EENT: No signs and/or symptoms were reported regarding the EENT system. Neuro: Level of Consciousness is awake, alert, obeys commands, Oriented to person, place, time, situation. Cardiovascular: Patient's skin is warm and dry. Respiratory: Airway is patent Respiratory effort is even, unlabored, Respiratory pattern is regular, symmetrical. GI: Reports nausea, vomiting. : No signs and/or symptoms were reported regarding the genitourinary system. Derm: Skin is dry, Skin is pale, Skin temperature is warm. Musculoskeletal: No signs and/or symptoms reported regarding the musculoskeletal system. 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 - Social history:: Smoking status: Patient/guardian denies using tobacco. - Ebola Screening: : No symptoms or risks identified at this time. Screenin:05 Abuse screen: Denies threats or abuse. Denies injuries from another. Nutritional aj1 screening: No deficits noted. Tuberculosis screening: No symptoms or risk factors identified. 16:15 Fall Risk None identified. aj1 Assessment: 10:05 General: Appears in no apparent distress. uncomfortable, Behavior is calm, cooperative, aj1 appropriate for age. Pain: Complains of pain in right inguinal area Pain does not radiate. Pain currently is 8 out of 10 on a pain scale. Quality of pain is described as aching. Neuro: Level of Consciousness is awake, alert, obeys commands, Oriented to person, place, time, situation, Booth Supervisor are equal bilaterally Moves all extremities. Full function Speech is normal, Facial symmetry appears normal. Cardiovascular: Denies chest pain, shortness of breath, Heart tones S1 S2 present Patient's skin is warm and dry. Rhythm is sinus tachycardia. Respiratory: Airway is patent Respiratory effort is even, unlabored, Respiratory pattern is regular, tachypnea Breath sounds are clear bilaterally. GI: Abdomen is flat, non-distended, Abd is soft and non tender X 4 quads. Reports nausea, vomiting. : No signs and/or symptoms were reported regarding the genitourinary system. EENT: No signs and/or symptoms were reported regarding the EENT system. Derm: Skin is intact, is healthy with good turgor, Skin is dry, Skin is flushed. Musculoskeletal: No signs and/or symptoms reported regarding the musculoskeletal system. Circulation, motion, and sensation intact. 11:05 Reassessment: Patient appears in no apparent distress at this time. No changes from aj1 previously documented assessment. Patient and/or family updated on plan of care and expected duration. Pain level reassessed. Patient is alert, oriented x 3, equal unlabored respirations, skin warm/dry/pink. 12:00 Reassessment: Patient and/or family updated on plan of care and expected duration. Pain aj1 level reassessed. General: Appears in no apparent distress. comfortable, Behavior is calm, cooperative, appropriate for age. Neuro: Level of Consciousness is awake, alert, obeys commands, Oriented to person, place, time, situation. Cardiovascular: Denies chest pain, shortness of breath, Heart tones S1 S2 present Patient's skin is warm and dry. Rhythm is sinus tachycardia. Respiratory: Airway is patent Respiratory effort is even, unlabored, Respiratory pattern is regular, symmetrical. Derm: No signs and/or symptoms reported regarding the dermatologic system. Skin is pink, warm \T\ dry. normal. Musculoskeletal: Circulation, motion, and sensation intact. 13:00 Reassessment: Insulin drip decreased to 2 units/hour. aj1 13:00 Reassessment: Patient appears in no apparent distress at this time. No changes from aj1 previously documented assessment. Patient and/or family updated on plan of care and expected duration. Pain level reassessed. Patient is alert, oriented x 3, equal unlabored respirations, skin warm/dry/pink. 14:00 Reassessment: Patient FSBS 179 at this time, insulin drip was decreased to 1 unit per aj1 hour and D5 1/2 NS \T\ 150 was started. 14:00 Reassessment: Patient and/or family updated on plan of care and expected duration. Pain aj1 level reassessed. General: Appears in no apparent distress. comfortable, Behavior is calm, cooperative, appropriate for age. Neuro: Level of Consciousness is awake, alert, obeys commands, Oriented to person, place, time, situation, Speech is normal, Facial symmetry appears normal. Cardiovascular: Patient's skin is warm and dry. Cardiovascular: Rhythm is sinus tachycardia. Respiratory: Airway is patent Respiratory effort is even, unlabored, Respiratory pattern is regular, symmetrical. Derm: No signs and/or symptoms reported regarding the dermatologic system. Skin is pink, warm \T\ dry. normal. Musculoskeletal: No signs and/or symptoms reported regarding the musculoskeletal system. Circulation, motion, and sensation intact. 14:30 Reassessment: Patient states that her pain has come back and she would like more pain aj1 medication. Notified Dr. Charles of patient's complaints. Order received. 15:13 Reassessment: Patient appears in no apparent distress at this time. No changes from aj1 previously documented assessment. Patient and/or family updated on plan of care and expected duration. Pain level reassessed. Patient is alert, oriented x 3, equal unlabored respirations, skin warm/dry/pink. 16:04 Reassessment: Notified Dr. Valente that patient's gap is 11, and acetone level is aj1 negative. Order received to give 10 units of levemir now, stop insulin drip in [address] Valente back to have patient down-graded to acute. 16:15 Reassessment: Charting continued in [facility]. aj1 19:45 Reassessment: Patient appears in no apparent distress at this time. Patient and/or aa1 family updated on plan of care and expected duration. Pain level reassessed. Patient is alert, oriented x 3, equal unlabored respirations, skin warm/dry/pink. Report given to VI Araujo on 4th floor Patient denies pain at this time. Patient states feeling better. Vital Signs: 10:07 BP 119 / 76; Pulse 126; Resp 23 S; Temp 98.4(O); Pulse Ox 99% on R/A; Weight 58.97 kg jl7 (R); Height 5 ft. 5 in. (165.10 cm) (R); Pain 8/10; 10:39 BP 112 / 74; Pulse 131; Resp 24; Pulse Ox 100% on R/A; aj1 11:00 BP 109 / 61; Pulse 128; Resp 22; Pulse Ox 100% on R/A; aj1 11:30 BP 111 / 75; Pulse 126; Resp 18; Pulse Ox 100% on R/A; aj1 11:50 Weight 59.33 kg (M); aj1 12:00 BP 100 / 56; Pulse 117; Resp 18; Pulse Ox 99% on R/A; aj1 12:30 BP 98 / 69; Pulse 111; Resp 18; Pulse Ox 99% on R/A; aj1 13:00 BP 102 / 75; Pulse 112; Resp 20; Pulse Ox 99% on R/A; aj1 13:30 BP 104 / 65; Pulse 105; Resp 20; Pulse Ox 99% on R/A; aj1 14:00 BP 91 / 57; Pulse 105; Resp 20; Pulse Ox 97% on R/A; jl7 14:30 BP 101 / 63; Pulse 111; Resp 18; Pulse Ox 99% ; jl7 15:00 BP 93 / 55; Pulse 111; Resp 18; Pulse Ox 100% on R/A; jl7 15:30 BP 93 / 56; Pulse 111; Resp 20; Pulse Ox 100% on R/A; jl7 16:00 BP 111 / 62; Pulse 117; Resp 16; Pulse Ox 99% ; jl7 19:45 BP 109 / 68; Pulse 103; Resp 20; Temp 98.6; Pulse Ox 99% on R/A; Pain 0/10; aa1 11:50 Body Mass Index 21.77 (59.33 kg, 165.10 cm) aj1 ED Course: 10:01 Patient arrived in ED. jl7 10:05 Patient has correct armband on for positive identification. Bed in low position. Call aj light in reach. Side rails up X 1. 10:05 No provider procedures requiring assistance completed. aj1 10:07 Triage completed. jl7 10:07 Arm band placed on right wrist. jl7 10:08 Francisco Charles MD is Attending Physician. kdr 10:10 Vera Cobian RN is Primary Nurse. jl7 10:10 Initial lab(s) drawn, by me, sent to lab. Inserted saline lock: 20 gauge in right aj1 antecubital area, using aseptic technique. Blood collected. 10:33 Thea Devries, VI is Primary Nurse. aj1 11:01 Shu Valente MD is Hospitalizing Provider. kdr 11:40 Repeat lab(s) drawn. by me, sent to lab. Inserted saline lock: 22 gauge in left wrist, dh3 using aseptic technique. Blood collected. 14:18 Repeat lab(s) drawn. by me, sent to lab. dh3 14:54 Radiology exam delayed due to lab results not completed at this time. (BUN/Creatinine) jg6 test not completed at this time. IV insertion attempt and/or patient not having appropriate IV at this time. 16:15 Patient admitted, IV remains in place. aj1 Administered Medications: 10:12 Drug: NS 0.9% 1000 ml Route: IV; Rate: 1 bolus; Site: right antecubital; aj1 11:55 Follow up: IV Status: Completed infusion; IV Intake: 1110ml 10:33 Drug: Insulin Regular Human 10 units {Co-Signature: jl7 (Vera Cobian RN).} Route: IVP; aj1 Site: right antecubital; 11:03 Follow up: Response: No adverse reaction; Blood sugar is unchanged 10:34 Drug: Pepcid 20 mg Route: IVP; Site: right antecubital; aj1 11:55 Follow up: Response: No adverse reaction 10:34 Drug: morphine 4 mg Route: IVP; Site: right antecubital; aj1 11:56 Follow up: Response: No adverse reaction; RASS: Alert and Calm (0) aj1 10:35 Drug: Zofran 4 mg Route: IVP; Site: right antecubital; aj1 11:55 Follow up: Response: No adverse reaction aj 11:10 Drug: Insulin Drip - (Insulin Regular Human 100 units, NS 0.9% 100 ml) {Co-Signature: ajKim jl7 (Vera Cobian RN).} Route: IV; Rate: calculated rate; Site: right antecubital; 11:10 Drug: NS 0.9% 1000 ml Route: IV; Rate: 200 ml/hr; Site: right antecubital; aj1 14:54 Follow up: IV Status: Completed infusion; IV Intake: 600ml aj 14:00 Drug: D5-1/2 NS 1000 ml Route: IV; Rate: 150 ml/hr; Site: right antecubital; aj1 14:36 Drug: morphine 4 mg {Note: RASS score 0 patient is alert .} Route: IVP; Site: left aj1 wrist; 17:14 Drug: Levemir 100 unit/mL 10 units Route: Sub-Q; Site: left upper arm; aj1 Point of Care Testing: Blood Glucose: 10:33 Blood Glucose: High (>450 mg/dL); 11:03 Blood Glucose: High (>450 mg/dL); aj1 12:00 Blood Glucose: 407 mg/dL; aj1 13:00 Blood Glucose: 248 mg/dL; aj1 14:00 Blood Glucose: 179 mg/dL; 1 15:01 Blood Glucose: 201 mg/dL; 1 17:01 Blood Glucose: 272 mg/dL; 3 19:00 Blood Glucose: 301 mg/dL; 3 Ranges: Intake: 11:55 IV: 1110ml; Total: 1110ml. [facility] 14:54 IV: 600ml; Total: 1710ml. [facility] Outcome: 11:01 Decision to Hospitalize by Provider. kdr 17:[address] [facility] 17:26 Condition: stable 17:26 Discharge instructions given to patient, Instructed on the need for admit, Demonstrated understanding of instructions. 19:55 Patient left the ED. aa1 Signatures: Thea Devries RN RN aj1 Alexandra Nicole RN RN aa1 Francisco Charles MD MD kdr Leal, Jahala, RN RN jl7 Kelsey Gonzales [facility] Bri Rocha j6 Vera Cobian RN jl7 Corrections: (The following items were deleted from the chart) 14:53 14:51 Reassessment: Patient states that her pain has come back and she would like more [facility] pain medication. Notified Dr. Charles of patient's complaints. Order received aj1
--- NOTE | 2019-04-20 11:02 | EDPHYS ---
Physician Documentation [facility] Name: Salome Santacruz Age: 19 yrs Sex: Female : 2000 Arrival Date: 04/20/2019 Time: 10:01 Bed 7 Private MD: ED Physician Francisco Charles HPI: 04/20 13:29 This 19 yrs old Female presents to ER via EMS with complaints of High Blood kdr Sugar. 13:29 The patient or guardian reports hyperglycemia, that was potentially precipitated by The kdr patient has been running out of her medication and she has been trying to stretch it out so she has not taken a full dosing regimen fo the last few days. Onset: The symptoms/episode began/occurred gradually, yesterday. Associated signs and symptoms: Pertinent negatives: anorexia, decreased urine output, diaphoresis, diarrhea, hair loss, ketones in urine, nausea, polydipsia, polyphagia, seizure activity, skin flushing, urinary incontinence. Current symptoms: In the emergency department the patient's symptoms are unchanged from the initial presentation. The patient has experienced similar episodes in the past, a few times. The patient has not recently seen a physician. 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 - Social history:: Smoking status: Patient/guardian denies using tobacco. - Ebola Screening: : No symptoms or risks identified at this time. ROS: 13:29 Constitutional: Negative for fever, chills, and weight loss, Eyes: Negative for injury, kdr pain, redness, and discharge, ENT: Negative for injury, pain, and discharge, Neck: Negative for injury, pain, and swelling, Cardiovascular: Negative for chest pain, palpitations, and edema, Respiratory: Negative for shortness of breath, cough, wheezing, and pleuritic chest pain, Abdomen/GI: Negative for abdominal pain, nausea, vomiting, diarrhea, and constipation, Back: Negative for injury and pain, : Negative for injury, bleeding, discharge, and swelling, MS/Extremity: Negative for injury and deformity, Skin: Negative for injury, rash, and discoloration, Neuro: Negative for headache, weakness, numbness, tingling, and seizure activity. Psych: Negative for depression, anxiety, suicide ideation, homicidal ideation, and hallucinations, Allergy/Immunology: Negative for hives, rash, and allergies, Hematologic/Lymphatic: Negative for swollen nodes, abnormal bleeding, and unusual bruising. 13:29 Endocrine: Positive for polydipsia, polyuria. Exam: 13:29 Constitutional: This is a well developed, well nourished patient who is awake, alert, kdr and in no acute distress. Head/Face: Normocephalic, atraumatic. Eyes: Pupils equal round and reactive to light, extra-ocular motions intact. Lids and lashes normal. Conjunctiva and sclera are non-icteric and not injected. Cornea within normal limits. Periorbital areas with no swelling, redness, or edema. Neck: Trachea midline, no thyromegaly or masses palpated, and no cervical lymphadenopathy. Supple, full range of motion without nuchal rigidity, or vertebral point tenderness. No Meningismus. Chest/axilla: Normal chest wall appearance and motion. Nontender with no deformity. No lesions are appreciated. Cardiovascular: Regular rate and rhythm with a normal S1 and S2. No gallops, murmurs, or rubs. Normal PMI, no JVD. No pulse deficits. Respiratory: Lungs have equal breath sounds bilaterally, clear to auscultation and percussion. No rales, rhonchi or wheezes noted. No increased work of breathing, no retractions or nasal flaring. Abdomen/GI: Soft, non-tender, with normal bowel sounds. No distension or tympany. No guarding or rebound. No evidence of tenderness throughout. Back: No spinal tenderness. No costovertebral tenderness. Full range of motion. Skin: Warm, dry with normal turgor. Normal color with no rashes, no lesions, and no evidence of cellulitis. MS/ Extremity: Pulses equal, no cyanosis. Neurovascular intact. Full, normal range of motion. Neuro: Awake and alert, GCS 15, oriented to person, place, time, and situation. Cranial nerves II-XII grossly intact. Motor strength 5/5 in all extremities. Sensory grossly intact. Cerebellar exam normal. Normal gait. Psych: Awake, alert, with orientation to person, place and time. Behavior, mood, and affect are within normal limits. Vital Signs: 10:07 BP 119 / 76; Pulse 126; Resp 23 S; Temp 98.4(O); Pulse Ox 99% on R/A; Weight 58.97 kg jl7 (R); Height 5 ft. 5 in. (165.10 cm) (R); Pain 8/10; 10:39 BP 112 / 74; Pulse 131; Resp 24; Pulse Ox 100% on R/A; aj1 11:00 BP 109 / 61; Pulse 128; Resp 22; Pulse Ox 100% on R/A; aj1 11:30 BP 111 / 75; Pulse 126; Resp 18; Pulse Ox 100% on R/A; aj1 11:50 Weight 59.33 kg (M); aj1 12:00 BP 100 / 56; Pulse 117; Resp 18; Pulse Ox 99% on R/A; aj1 12:30 BP 98 / 69; Pulse 111; Resp 18; Pulse Ox 99% on R/A; aj1 13:00 BP 102 / 75; Pulse 112; Resp 20; Pulse Ox 99% on R/A; aj1 13:30 BP 104 / 65; Pulse 105; Resp 20; Pulse Ox 99% on R/A; aj1 14:00 BP 91 / 57; Pulse 105; Resp 20; Pulse Ox 97% on R/A; jl7 14:30 BP 101 / 63; Pulse 111; Resp 18; Pulse Ox 99% ; jl7 15:00 BP 93 / 55; Pulse 111; Resp 18; Pulse Ox 100% on R/A; jl7 15:30 BP 93 / 56; Pulse 111; Resp 20; Pulse Ox 100% on R/A; jl7 16:00 BP 111 / 62; Pulse 117; Resp 16; Pulse Ox 99% ; jl7 19:45 BP 109 / 68; Pulse 103; Resp 20; Temp 98.6; Pulse Ox 99% on R/A; Pain 0/10; aa1 11:50 Body Mass Index 21.77 (59.33 kg, 165.10 cm) aj MDM: 11:01 Patient medically screened. kdr 13:29 Data reviewed: vital signs, nurses notes, lab test result(s), radiologic studies. [facility] 04/20 10:09 Order name: Basic Metabolic Panel; Complete Time: 11: kdr 04/20 10:09 Order name: CBC with Diff; Complete Time: 11: kdr 04/20 10:09 Order name: Creatinine for Radiology; Complete Time: 11: kdr 04/20 10:09 Order name: Hepatic Function; Complete Time: 11: kdr 04/20 10:09 Order name: Lipase; Complete Time: 11: kdr 04/20 10:23 Order name: Glucose, Ancillary Testing; Complete Time: 11: EDNE 04/20 11:29 Order name: Glucose; Complete Time: 12:25 [facility] 04/20 11:56 Order name: Urine Dipstick--Ancillary (enter results) 04/20 11:56 Order name: Urine --Ancillary (enter results) bd 04/20 12:49 Order name: Acetone Level EDMS 04/20 12:49 Order name: Acetone Level EDMS 04/20 12:49 Order name: Acetone Level EDMS 04/20 12:49 Order name: Acetone Level EDMS 04/20 12:50 Order name: Acetone Level EDMS 04/20 12:50 Order name: Acetone Level EDMS 04/20 12:50 Order name: Acetone Level EDMS 04/20 12:50 Order name: Acetone Level EDMS 04/20 12:50 Order name: Acetone Level EDMS 04/20 12:50 Order name: Acetone Level EDMS 04/20 12:50 Order name: Acetone Level EDMS 04/20 12:50 Order name: Basic Metabolic Panel EDMS 04/20 12:51 Order name: Basic Metabolic Panel EDMS 04/20 12:51 Order name: Basic Metabolic Panel EDMS 04/20 12:51 Order name: Basic Metabolic Panel EDMS 04/20 12:52 Order name: Basic Metabolic Panel EDMS 04/20 12:52 Order name: Basic Metabolic Panel EDMS 04/20 12:52 Order name: Basic Metabolic Panel EDMS 04/20 12:52 Order name: Basic Metabolic Panel EDMS 04/20 12:52 Order name: Basic Metabolic Panel EDMS 04/20 12:52 Order name: Basic Metabolic Panel EDMS 04/20 12:48 Order name: CONS Diabetic Education Consul EDNE 04/20 12:48 Order name: CONS Pharmacy Consult EDMS 04/20 12:48 Order name: Dietitian Consult EDMS 04/20 12:48 Order name: NPO EDNE 04/20 12:52 Order name: Basic Metabolic Panel EDNE 04/20 12:52 Order name: CBC with Automated Diff EDMS 04/20 12:52 Order name: CBC with Automated Diff EDMS 04/20 12:52 Order name: CBC with Automated Diff EDMS 04/20 12:52 Order name: CBC with Automated Diff EDMS 04/20 12:52 Order name: CBC with Automated Diff EDMS 04/20 12:53 Order name: CBC with Automated Diff EDMS 04/20 14:45 Order name: CT Abd/Pelvis - IV Contrast Only kdr 04/20 15:52 Order name: CT EDNE 04/20 17:06 Order name: Glucose, Ancillary Testing EDNE 04/20 17:32 Order name: Glucose, Ancillary Testing EDNE 04/20 17:32 Order name: Glucose, Ancillary Testing EDNE 04/20 17:32 Order name: Glucose, Ancillary Testing EDNE 04/20 17:32 Order name: Glucose, Ancillary Testing EDNE 04/20 17:32 Order name: Glucose, Ancillary Testing EDNE 04/20 17:32 Order name: Glucose, Ancillary Testing EDNE 04/20 19:09 Order name: Glucose, Ancillary Testing EDNE 04/20 19:09 Order name: Glucose, Ancillary Testing EDNE 04/20 10:09 Order name: IV Saline Lock; Complete Time: 10:35 kdr 04/20 10:09 Order name: Labs collected and sent; Complete Time: 10:35 kdr 04/20 16:06 Order name: Diet [place] 1800 [place]; Complete Time: 16:07 aj1 Administered Medications: 10:12 Drug: NS 0.9% 1000 ml Route: IV; Rate: 1 bolus; Site: right antecubital; aj1 11:55 Follow up: IV Status: Completed infusion; IV Intake: 1110ml aj1 10:33 Drug: Insulin Regular Human 10 units {Co-Signature: jl7 (Jahala Cobian RN).} Route: IVP; aj1 Site: right antecubital; 11:03 Follow up: Response: No adverse reaction; Blood sugar is unchanged aj1 10:34 Drug: Pepcid 20 mg Route: IVP; Site: right antecubital; aj1 11:55 Follow up: Response: No adverse reaction aj1 10:34 Drug: morphine 4 mg Route: IVP; Site: right antecubital; aj1 11:56 Follow up: Response: No adverse reaction; RASS: Alert and Calm (0) aj1 10:35 Drug: Zofran 4 mg Route: IVP; Site: right antecubital; aj1 11:55 Follow up: Response: No adverse reaction aj1 11:10 Drug: Insulin Drip - (Insulin Regular Human 100 units, NS 0.9% 100 ml) {Co-Signature: aj1 jl7 (Vera Cobian RN).} Route: IV; Rate: calculated rate; Site: right antecubital; 11:10 Drug: NS 0.9% 1000 ml Route: IV; Rate: 200 ml/hr; Site: right antecubital; aj1 14:54 Follow up: IV Status: Completed infusion; IV Intake: 600ml aj1 14:00 Drug: D5-1/2 NS 1000 ml Route: IV; Rate: 150 ml/hr; Site: right antecubital; aj1 14:36 Drug: morphine 4 mg {Note: RASS score 0 patient is alert .} Route: IVP; Site: left aj1 wrist; 17:14 Drug: Levemir 100 unit/mL 10 units Route: Sub-Q; Site: left upper arm; aj1 Point of Care Testing: Blood Glucose: 10:33 Blood Glucose: High (>450 mg/dL); aj1 11:03 Blood Glucose: High (>450 mg/dL); aj1 12:00 Blood Glucose: 407 mg/dL; aj1 13:00 Blood Glucose: 248 mg/dL; aj1 14:00 Blood Glucose: 179 mg/dL; aj1 15:01 Blood Glucose: 201 mg/dL; aj1 17:01 Blood Glucose: 272 mg/dL; dh3 19:00 Blood Glucose: 301 mg/dL; dh3 Ranges: Critical Glucose Levels:Adult <50 mg/dl or >400 mg/dl <40 mg/dl or >180 mg/dl Disposition: 04/20/19 11:01 Hospitalization ordered by Shu Valente for Inpatient Admission. Preliminary diagnosis is DKA, Hyperglycemia, Acidosis. - Bed requested for Telemetry/MedSurg (Inpatient). - Status is Inpatient Admission. aa1 - Condition is Fair. - Problem is an acute exacerbation. - Symptoms have improved. UTI on Admission? No Signatures: Dispatcher [employer] EDMS Amrita marshall Thea Horner RN RN aj1 Alexandra Nicole RN RN aa1 Francisco Charles MD MD kdr Vera Cobian RN RN jl7 Vera Cobian RN jl7 Corrections: (The following items were deleted from the chart) 12:01 11:01 Hospitalization Ordered by Shu Valente MD for Inpatient Admission. Preliminary kdr diagnosis is DKA, Hyperglycemia, Acidosis. Bed requested for Telemetry/MedSurg (Inpatient). Status is Inpatient Admission. Condition is Fair. Problem is an acute exacerbation. Symptoms have improved. UTI on Admission? No. kdr 17:23 12:01 04/20/2019 11:01 Hospitalization Ordered by Shu Valente MD for Inpatient bd Admission. Preliminary diagnosis is DKA, Hyperglycemia, Acidosis. Bed requested for Intensive Care Unit. Status is Inpatient Admission. Condition is Fair. Problem is an acute exacerbation. Symptoms have improved. UTI on Admission? No. kdr 19:55 17:23 04/20/2019 11:01 Hospitalization Ordered by Shu Valente MD for Inpatient aa1 Admission. Preliminary diagnosis is DKA, Hyperglycemia, Acidosis. Bed requested for Telemetry/MedSurg (Inpatient). Status is Inpatient Admission. Condition is Fair. Problem is an acute exacerbation. Symptoms have improved. UTI on Admission? No. bd
[2019-04-20] MEDS ORDERED: ONDANSETRON 4 MG/2 ML VIAL IV PRN (12:39)
[2019-04-20] MEDS ORDERED: NACHLORIDE 0.45% 1,000 ML IV SCH (13:00)
[2019-04-20] MEDS ORDERED: D5 0.45 NS 1,000 ML IV SCH (13:00)
[2019-04-20 13:53] LABS: Urine Blood NEGATIVE (NEG); Urine Glucose 2+ (NEG); Urine Protein NEGATIVE (NEG)
[2019-04-20] MEDS ORDERED: D5 0.45 NS 1,000 ML IV ONE (14:19)
[2019-04-20 14:50] LABS: BUN Blood Urea Nitrogen 16 mg/dL (7-18); Bicarbonate 19 mmol/L (21-32); Glucose Level 178 mg/dL (74-106); Sodium Level 143 mmol/L (136-145)
--- NOTE | 2019-04-20 15:38 | P.HP ---
Patient History Date of Service: 04/20/19 Reason for admission: DKA History of Present Illness: This is a 19-year-old female with significant past medical history of type 1 diabetes who presented to the ED complaining having nausea vomiting abdominal pain. Patient stated that she has not been able to take her insulin for past couple of weeks due to running out of the medication and not being able to refill it. Patient stated that she usually is compliant with her medication was 1st time this has happened. No other complaints to offer at this time. Denies having any fever chills diarrhea or any other associated symptoms. In the ER patient was found to have DKA with an anion gap of 22 and blood sugar of 688 this patient was referred over to admission for further care. Allergies acetaminophen [From Midol] Allergy (Verified 08/21/16 08:55) "bumps in my mouth" latex Allergy (Verified 08/21/16 08:55) Rash pamabrom [From Midol] Allergy (Verified 08/21/16 08:55) "bumps in my mouth" promethazine [From Phenergan] Allergy (Unverified 02/10/18 00:49) Unknown Home Medications: Acetaminophen with Codeine [Tylenol with Codeine #4 Tablet] 1 each PO Q6HP PRN 08/21/16 Ciprofloxacin HCl [Cipro 500 MG Tablet] 500 mg PO BID 08/21/16 Insulin Aspart [Novolog] 0 unit SQ DAILY 08/21/16 Mupirocin Oint [Bactroban 2% Ointment] 22 gm TP DAILY 08/21/16 Smz./Tmp. [Bactrim Ds 800 MG/160 MG] 1 tab PO BID 08/21/16 - Past Medical/Surgical History Has patient received pneumonia vaccine in the past: No Diabetic: Yes -: Type 1 DM Past Surgical History: Reviewed- Non-Contributory - Family History Family History: Reviewed- Non-Contributory - Social History Smoking Status: Never smoker Counseled patient to stop smoking for: less than 10 minutes Smoking therapy provided: No Patient receptive to therapy: No Alcohol use: No CD- Drugs: No Caffeine use: No Place of Residence: Home Review of Systems 10-point ROS is otherwise unremarkable Physical Examination - Physical Exam General: Alert, In no apparent distress HEENT: Atraumatic, PERRLA, Mucous membr. moist/pink, EOMI, Sclerae nonicteric Neck: Supple, 2+ carotid pulse no bruit, No LAD, Without JVD or thyroid abnormality Respiratory: Clear to auscultation bilaterally, Normal air movement Cardiovascular: Regular rate/rhythm, Normal S1 S2 Gastrointestinal: Normal bowel sounds, No tenderness Musculoskeletal: No tenderness Integumentary: No rashes Neurological: Normal gait, Normal speech, Normal strength at 5/5 x4 extr, Normal tone, Normal affect Lymphatics: No axilla or inguinal lymphadenopathy - Studies Laboratory Data (last 24 hrs) 04/20/19 11:40: Glucose 470 H* 04/20/19 10:15: Creatinine 1.05 04/20/19 10:15: WBC 11.5 H, Hgb 13.9, Hct 42.2, Plt Count 385 04/20/19 10:15: Sodium 131 L, Potassium 4.9, BUN 20 H, Creatinine 1.08, Glucose 688 H*, Total Bilirubin 0.7, AST 7 L, ALT 14, Alkaline Phosphatase 108, Lipase 76 Assessment and Plan - Problems (Diagnosis) (1) DKA (diabetic ketoacidoses) Current Visit: Yes Status: Acute Plan: DKA 2.2 to Noncompliance to medication -blood sugar initial at 688 and anion gap of 20 to -Will start on Insulin ggt and IV half NS at 100 mL an hr -BMP q4h, Acetone q4h for now -Will monitor closely in the ICU -Will switch to D5W once Bs < 200 Qualifiers: Diabetes mellitus type: type 1 Diabetes mellitus complication detail: without coma Qualified Code(s): E10.10 - Type 1 diabetes mellitus with ketoacidosis without coma (2) Type 1 diabetes mellitus Current Visit: Yes Status: Chronic Discharge Plan: Home Plan to discharge in: Greater than 2 days - Advance Directives Does patient have a Living Will: No Does patient have a Durable POA for Healthcare: No - Code Status/Comfort Care Code Status Assessed: Yes Critical Care: No
--- NOTE | 2019-04-20 15:40 | RAD REPORT ---
EXAM DESCRIPTION: CT - Abdomen Pelvis W Contrast - 04/20/2019 3:30 pm CLINICAL HISTORY: ABD PAIN, vomiting COMPARISON: CT study September 2013 TECHNIQUE: Biphasic, helical CT imaging of the abdomen and pelvis was performed following 100 ml non -ionic IV contrast. No oral contrast. All CT scans are performed using dose optimization technique as appropriate and may include automated exposure control or mA/KV adjustment according to patient size. FINDINGS: No suspicious findings in the lung bases. The liver, spleen, and pancreas show no suspicious findings. Gallbladder and biliary tree are also wi thout suspicious finding. Symmetric renal function is seen with no hydronephrosis or suspicious renal mass. No pyelonephritis o r acute parenchymal process. No bladder abnormalities. No adrenal abnormalities. No dilated bowel loops or bowel wall thickening. Appendix is normal. No free air, free fluid or infla mmatory stranding. No hernia, mass or bulky lymphadenopathy. No suspicious bony findings. IMPRESSION: Contrast enhanced CT abdomen and pelvis showing no significant or suspicious finding. No suspicious change from comparison.
[2019-04-20] MEDS ORDERED: ACETAMINOPHEN 500 MG TAB ONE (15:41)
[2019-04-20 16:18] VITALS: BMI 21.7
[2019-04-20] MEDS ORDERED: D50W 25 GM/50 ML SYRINGE IV PRN ×2 (16:27→19:37)
[2019-04-20] MEDS ORDERED: GLUCAGON 1 MG/VIAL IM PRN ×2 (16:27→19:37)
[2019-04-20] MEDS ORDERED: INSULIN -REGULAR HUMAN 50 UNIT/0.5 ML ML SQ SCH ×2 (16:30→19:41)
[2019-04-20 19:19] LABS: BUN Blood Urea Nitrogen 12 mg/dL (7-18); Bicarbonate 16 mmol/L (21-32); Glucose Level 310 mg/dL (74-106); Potassium 4.3 mmol/L (3.5-5.1); Sodium Level 138 mmol/L (136-145)
--- NOTE | 2019-04-20 19:45 | P.PN ---
Subjective Date of Service: 04/20/19 [facility] Provider: [facility] Chief Complaint: DKA Subjective: Doing well Physical Examination - Vital Signs Temperature: 98.6 F Blood Pressure: 102/66 Pulse: 101 Respirations: 22 Pulse Ox (%): 100 - Physical Exam General: Alert, In no apparent distress, Oriented x3, Cooperative HEENT: Atraumatic Neck: Supple Respiratory: Clear to auscultation bilaterally, Normal air movement Cardiovascular: Normal pulses, Regular rate/rhythm Gastrointestinal: Normal bowel sounds, Soft and benign, Non-distended Neurological: Normal speech, Normal strength at 5/5 x4 extr, Normal tone, Normal affect - Studies Laboratory Data (last 24 hrs) 04/20/19 11:40: Glucose 470 H* 04/20/19 10:15: Creatinine 1.05 04/20/19 10:15: WBC 11.5 H, Hgb 13.9, Hct 42.2, Plt Count 385 04/20/19 10:15: Sodium 131 L, Potassium 4.9, BUN 20 H, Creatinine 1.08, Glucose 688 H*, Total Bilirubin 0.7, AST 7 L, ALT 14, Alkaline Phosphatase 108, Lipase 76 Medications List Reviewed: Yes Assessment & Plan Discharge Plan: Home Plan to discharge in: 24 Hours Physician Review Additional Text: Impression: Diabetic ketoacidosis with history of type 1 diabetes Plan: Patient reports taking Levemir 45 units subcu at bedtime at home. She apparently ran out of medication. Anion gap has closed. Patient to be transition off insulin IV and to Levemir subcu. Patient no longer requiring ICU. Will transition to telemetry. Will start Levemir 30 units subcu every bedtime. Continue Accu-Cheks an aggressive sliding scale. Continue IV fluids at half-normal saline at 125 cc/hour. Continue to monitor closely. Will check A1c in the morning. Recheck lab in the morning. Likely discharge tomorrow with clinical improvement. Recommend patient to follow up and establish care with endocrinology as an outpatient to further address. Compliance with medication addressed in detail. She apparently gets medication assistance through the [facility] to obtained Levemir at a reduced cost. Will monitor closely. Time Spent Managing Pts Care (In Minutes): 35
[2019-04-20] MEDS ORDERED: INSULIN GLARGINE 100 UNITS/ML SQ SCH (21:00)
[2019-04-20] MEDS: INSULIN -REGULAR HUMAN 50 UNIT/0.5 ML ML SQ SCH (21:16)
[2019-04-20] MEDS: NACHLORIDE 0.45% 1,000 ML IV SCH (21:16)
[2019-04-20] MEDS ORDERED: TRAMADOL HCL 50 MG TAB PO PRN (21:46)
[2019-04-20] MEDS ORDERED: IBUPROFEN 400 MG TAB PO PRN (21:46)
[2019-04-21 04:48] LABS: BUN Blood Urea Nitrogen 13 mg/dL (7-18); Bicarbonate 23 mmol/L (21-32); Glucose Level 65 mg/dL (74-106); Potassium 3.6 mmol/L (3.5-5.1); Sodium Level 143 mmol/L (136-145)
[2019-04-21] MEDS: NACHLORIDE 0.45% 1,000 ML IV SCH (05:08)
[2019-04-21 05:20] LABS: Basophils % 0.6 % (0-1.3); Hematocrit 35.6 % (36.0-45.0); Lymphocytes % 45.9 % (15.3-44.8); MPV 7.8 fL (7.6-11.3); RBC Red Blood Cell Count 4.24 M/uL (3.86-4.86)
[2019-04-21] MEDS ORDERED: D5 0.45 NS 1,000 ML IV ONE (06:19)
[2019-04-21] MEDS ORDERED: D5 0.45 NS 1,000 ML IV SCH (06:28)
[2019-04-21] MEDS: INSULIN -REGULAR HUMAN 50 UNIT/0.5 ML ML SQ SCH (07:30)
[2019-04-21 08:08] VITALS: TEMP 98.9
[2019-04-21] MEDS ORDERED: POTASSIUM 25 MEQ EFFERV TAB PO ONE (09:00)
[2019-04-21] MEDS ORDERED: ENOXAPARIN 40 MG/0.4 ML SQ SCH (09:00)
[2019-04-21] MEDS ORDERED: INSULIN -REGULAR HUMAN 50 UNIT/0.5 ML ML SQ SCH (09:18)
[2019-04-21 12:32] VITALS: BP 101/60
--- NOTE | 2019-04-21 13:02 | P.SSS ---
Patient History Date of Service: 04/21/19 Primary [facility] Provider: [facility] Reason for admission: DKA History of Present Illness: This is a 19-year-old female with significant past medical history of type 1 diabetes who presented to the ED complaining having nausea vomiting abdominal pain. Patient stated that she has not been able to take her insulin for past couple of weeks due to running out of the medication and not being able to refill it. Patient stated that she usually is compliant with her medication was 1st time this has happened. No other complaints to offer at this time. Denies having any fever chills diarrhea or any other associated symptoms. In the ER patient was found to have DKA with an anion gap of 22 and blood sugar of 688 this patient was referred over to admission for further care. Allergies acetaminophen [From Midol] Allergy (Verified 08/21/16 08:55) "bumps in my mouth" latex Allergy (Verified 08/21/16 08:55) Rash pamabrom [From Midol] Allergy (Verified 08/21/16 08:55) "bumps in my mouth" promethazine [From Phenergan] Allergy (Verified 04/20/19 23:18) Unknown Home Medications: Insulin Aspart [Novolog] 36 unit SQ AC 08/21/16 Insulin Detemir [Levemir] 45 units SQ BEDTIME 04/20/19 - Past Medical/Surgical History Has patient received pneumonia vaccine in the past: No Diabetic: Yes -: Type 1 DM -: -: [place] Teeth removed -: I&D - Family History Family History: Reviewed- Non-Contributory - Social History Smoking Status: Never smoker Alcohol use: Yes CD- Drugs: No Caffeine use: Yes Place of Residence: Home Review of Systems 10-point ROS is otherwise unremarkable Physical Examination - Vital Signs Temperature: 98.9 F Blood Pressure: 101/60 Pulse: 102 Respirations: 18 Pulse Ox (%): 99 - Physical Exam General: Alert, In no apparent distress HEENT: Atraumatic, PERRLA, Mucous membr. moist/pink, EOMI, Sclerae nonicteric Neck: Supple, 2+ carotid pulse no bruit, No LAD, Without JVD or thyroid abnormality Respiratory: Clear to auscultation bilaterally, Normal air movement Cardiovascular: Regular rate/rhythm, Normal S1 S2 Gastrointestinal: Normal bowel sounds, No tenderness Musculoskeletal: No tenderness Integumentary: No rashes Neurological: Normal gait, Normal speech, Normal strength at 5/5 x4 extr, Normal tone, Normal affect Lymphatics: No axilla or inguinal lymphadenopathy - Diagnosis (Problem(s)) (1) DKA (diabetic ketoacidoses) Current Visit: Yes Status: Acute Plan: DKA 2.2 to Noncompliance to medication -blood sugar initial at 688 and anion gap of 20 -today gap closed x 3 and on ISS doing well -DC home today and resume home insulin Qualifiers: Diabetes mellitus type: type 1 Diabetes mellitus complication detail: without coma Qualified Code(s): E10.10 - Type 1 diabetes mellitus with ketoacidosis without coma (2) Type 1 diabetes mellitus Current Visit: Yes Status: Chronic - Disposition Disposition: ROUTINE DISCHARGE Condition: GOOD Diet: Regular Activity: Ad ignacio
[2019-04-21 15:42] VITALS: O2SAT 99
== END 2019-04-21 14:39 | disposition home or self-care (01) | DRG 639 ==
LOC: ER 09:59 → ERHOLD 12:39 → 4TH 19:45
PROVIDERS: ADMIT Family Medicine; ATTEND Family Medicine
DX: E10.10 Type 1 diabetes mellitus with ketoacidosis without coma (principal); Z91.14 Patient's other noncompliance with medication regimen; Z91.040 Latex allergy status
CPT/HCPCS: 36415; 74177; 80048; 80076; 81003; 81025; 82010; 82947; 82962; 83036; 83690; 83735; 84100; 85025; 96361; 96372; 96374; 96375; 99285; J1650; J2405; J7030; Q9967

== ENCOUNTER 2019-10-03 12:18 | Emergency (ER) | payer SELFPAY ==
--- OUTSIDE RECORDS SUMMARY | 2019-10-03 12:24 | XMS REPORT ---
:2000 [facility] Address [address] [place] [address] Care Team Providers Name Role Phone ARLYNANTONIETA [...] of the pelvis was performed on the [employer].Comparison study: No prior study.FINDINGS:Uterus: 8.2 x [...] (BEAKER) (test 230 mg/dL 70-[address] [facility] [address] [facility] [address] antp=0832) [facility] [address] POCT-GLUCOSE [id number] 08:32:00 Test Item Value Reference Range Comments POC-GLUCOSE METER (BEAKER) 70 mg/dL 70-[address] [facility] [address] [facility] (test ekcz=2999) WAY [facility] [address] POCT-GLUCOSE [id number] 05:13:00 Test Item Value Reference Range Comments POC-GLUCOSE METER (BEAKER) 152 mg/dL 70-[address] [facility] [address] [facility] (test qbek=3189) WAY [facility] [address] POCT-GLUCOSE [id number] 04:14:00 Test Item Value Reference Range Comments POC-GLUCOSE METER (BEAKER) 55 mg/dL 70-[address] [facility] [address] [facility] (test bifz=7364) WAY [facility] [address] POCT-GLUCOSE [id number] 20:37:00 Test Item Value Reference Range Comments POC-GLUCOSE METER (BEAKER) 204 mg/dL 70-[address] [facility] [address] [facility] (test mhlw=2925) [facility] [address] POCT-GLUCOSE [id number] 19:01:00 Test Item Value Reference Range Comments POC-GLUCOSE METER (BEAKER) 88 mg/dL 70-[address] [facility] [address] [facility] (test pice=5035) WAY [facility] [address] POCT-GLUCOSE [id number] 17:27:00 Test Item Value Reference Range Comments POC-GLUCOSE METER (BEAKER) 253 mg/dL 70-[address] [facility] [address] [facility] (test mzzr=6826) WAY [facility] [address] POCT-GLUCOSE [id number] 15:36:00 Test Item Value Reference Range Comments POC-GLUCOSE METER (BEAKER) 366 mg/dL 70-[address] [facility] [address] [facility] (test gswb=8383) WAY [facility] [address] POCT-GLUCOSE [id number] 11:51:00 Test Item Value Reference Range Comments POC-GLUCOSE METER (BEAKER) 194 mg/dL 70-[address] [facility] [address] [facility] (test hmkg=3704) [facility] [address] POCT-GLUCOSE [id number] 10:19:00 Test Item Value Reference Range Comments POC-GLUCOSE METER (BEAKER) 147 mg/dL 70-110 TESTED AT [address] (test obdi=2433) [facility] [address] BASIC METABOLIC [id number] 09:23:00 Test Item Value Reference Range Comments SODIUM (BEAKER) (test 135 meq/L 135-148 sccv=072) POTASSIUM (BEAKER) (test 3.5 meq/L 3.5-5.5 nxql=261) CHLORIDE (BEAKER) (test 108 meq/L 98-106 ylsm=000) CO2 (BEAKER) (test 20 meq/L 20-31 yeej=697) BLOOD UREA NITROGEN 8 mg/dL 10-26 (BEAKER) (test regh=448) CREATININE (BEAKER) (test 0.90 mg/dL 0.50-1.20 txxz=353) GLUCOSE RANDOM (BEAKER) 164 mg/dL 70-110 (test atte=437) CALCIUM (BEAKER) (test 8.6 mg/dL 8.5-10.5 rjkx=697) EGFR (BEAKER) (test 81 mL/min/1.73 sq m ESTIMATED GFR IS NOT ylvb=0838) ACCURATE CREATININE CLEARANCE IN PREDICTING GLOMERULAR FILTRATION RATE. ESTIMATED GFR IS NOT APPLICABLE FOR DIALYSIS PATIENTS. POCT-GLUCOSE [id number] 08:02:00 Test Item Value Reference Range Comments POC-GLUCOSE METER (BEAKER) 161 mg/dL 70-110 TESTED AT [address] (test hflp=9336) [facility] [address] POCT-GLUCOSE [id number] 07:03:00 Test Item Value Reference Range Comments POC-GLUCOSE METER (BEAKER) 151 mg/dL 70-110 TESTED AT [address] (test xmkt=6713) [facility] [address] POCT-GLUCOSE [id number] 05:08:00 Test Item Value Reference Range Comments POC-GLUCOSE METER (BEAKER) 158 mg/dL 70-110 TESTED AT [address] (test msmd=3192) [facility] [address] BASIC METABOLIC [id number] 04:51:00 Test Item Value Reference Range Comments SODIUM (BEAKER) (test 137 meq/L 135-148 pwni=817) POTASSIUM (BEAKER) (test 3.3 meq/L 3.5-5.5 mznw=628) CHLORIDE (BEAKER) (test 111 meq/L 98-106 elfb=512) CO2 (BEAKER) (test 15 meq/L 20-31 thcy=201) BLOOD UREA NITROGEN 9 mg/dL 10-26 (BEAKER) (test jrfw=300) CREATININE (BEAKER) (test 0.84 mg/dL 0.50-1.20 jmzc=159) GLUCOSE RANDOM (BEAKER) 160 mg/dL 70-110 (test liub=880) CALCIUM (BEAKER) (test 8.3 mg/dL 8.5-10.5 qurq=113) EGFR (BEAKER) (test 87 mL/min/1.73 sq m ESTIMATED GFR IS NOT wiec=9242) ACCURATE CREATININE CLEARANCE IN PREDICTING GLOMERULAR FILTRATION RATE. ESTIMATED GFR IS NOT APPLICABLE FOR DIALYSIS PATIENTS. POCT-GLUCOSE [id number] 03:03:00 Test Item Value Reference Range Comments POC-GLUCOSE METER (BEAKER) 153 mg/dL 70-[address] [facility] [address] [facility] (test ozlz=8196) [facility] [address] POCT-GLUCOSE [id number] 02:09:00 Test Item Value Reference Range Comments POC-GLUCOSE METER (BEAKER) 159 mg/dL 70-[address] [facility] [address] [facility] (test zymf=8243) [facility] [address] POCT-GLUCOSE [id number] 01:08:00 Test Item Value Reference Range Comments POC-GLUCOSE METER (BEAKER) 174 mg/dL 70-[address] [facility] [address] [facility] (test cfpj=6782) [facility] [address] BASIC METABOLIC [id number] 00:38:00 Test Item Value Reference Range Comments SODIUM (BEAKER) (test 137 meq/L 135-148 gemp=710) POTASSIUM (BEAKER) (test 3.8 meq/L 3.5-5.5 bfak=204) CHLORIDE (BEAKER) (test 111 meq/L 98-106 qdif=182) CO2 (BEAKER) (test 12 meq/L 20-31 xbhz=916) BLOOD UREA NITROGEN 9 mg/dL 10-26 (BEAKER) (test kgmz=408) CREATININE (BEAKER) (test 0.91 mg/dL 0.50-1.20 qsrs=159) GLUCOSE RANDOM (BEAKER) 173 mg/dL 70-110 (test nndp=487) CALCIUM (BEAKER) (test 8.4 mg/dL 8.5-10.5 laxy=759) EGFR (BEAKER) (test 80 mL/min/1.73 sq m ESTIMATED GFR IS NOT tcgm=2781) ACCURATE CREATININE CLEARANCE IN PREDICTING GLOMERULAR FILTRATION RATE. ESTIMATED GFR IS NOT APPLICABLE FOR DIALYSIS PATIENTS. POCT-GLUCOSE [id number] 00:37:00 Test Item Value Reference Range Comments POC-GLUCOSE METER (BEAKER) 198 mg/dL 70-[address] [facility] [address] [facility] (test jkgd=1025) WAY [facility] [address] POCT-GLUCOSE [id number] 00:14:00 Test Item Value Reference Range Comments POC-GLUCOSE METER (BEAKER) 162 mg/dL 70-[address] [facility] [id number] [place] [address] (test vzap=9786) [facility] [address] POCT-GLUCOSE [id number] 23:39:00 Test Item Value Reference Range Comments POC-GLUCOSE METER (BEAKER) 149 mg/dL 70-[address] [facility] [id number] [place] [address] (test yaxa=8869) [facility] [address] POCT-GLUCOSE [id number] 23:10:00 Test Item Value Reference Range Comments POC-GLUCOSE METER (BEAKER) 134 mg/dL 70-[address] [facility] [address] [place] [address] (test divs=6137) [facility] [address] POCT-GLUCOSE [id number] 22:41:00 Test Item Value Reference Range Comments POC-GLUCOSE METER (BEAKER) 112 mg/dL 70-[address] [facility] [address] [place] [address] (test elrz=5533) [facility] [address] POCT-GLUCOSE [id number] 21:59:00 Test Item Value Reference Range Comments POC-GLUCOSE METER (BEAKER) 95 mg/dL 70-[address] [facility] [address] [place] [address] (test qdgo=6028) [facility] [address] POCT-GLUCOSE [id number] 21:39:00 Test Item Value Reference Range Comments POC-GLUCOSE METER (BEAKER) 110 mg/dL 70-[address] [facility] [address] [place] [address] (test dkrs=0949) WAY [facility] [address] POCT-GLUCOSE [id number] 21:07:00 Test Item Value Reference Range Comments POC-GLUCOSE METER (BEAKER) 114 mg/dL 70-[address] [facility] [address] [place] [address] (test inla=7061) [place] [address] BASIC METABOLIC [id number] 20:47:00 Test Item Value Reference Range Comments SODIUM (BEAKER) (test 139 meq/L 135-148 utam=836) POTASSIUM (BEAKER) (test 3.7 meq/L 3.5-5.5 xaaj=201) CHLORIDE (BEAKER) (test 112 meq/L 98-106 xnyh=987) CO2 (BEAKER) (test 12 meq/L 20-31 aecm=520) BLOOD UREA NITROGEN 9 mg/dL 10-26 (BEAKER) (test bzca=188) CREATININE (BEAKER) (test 1.03 mg/dL 0.50-1.20 sxzv=075) GLUCOSE RANDOM (BEAKER) 162 mg/dL 70-110 (test hcli=679) CALCIUM (BEAKER) (test 8.6 mg/dL 8.5-10.5 ghgn=084) EGFR (BEAKER) (test 69 mL/min/1.73 sq m ESTIMATED GFR IS NOT ixqg=4244) ACCURATE CREATININE CLEARANCE IN PREDICTING GLOMERULAR FILTRATION RATE. ESTIMATED GFR IS NOT APPLICABLE FOR DIALYSIS PATIENTS. POCT-GLUCOSE [id number] 20:17:00 Test Item Value Reference Range Comments POC-GLUCOSE METER (BEAKER) 176 mg/dL 70-[address] [facility] [id number] [place] [address] (test jpxn=8874) WAY [facility] [address] [id number] 19:09:00 Test Item Value Reference Range Comments GLUCOSE RANDOM (BEAKER) (test vhut=511) 230 mg/dL 70-110 If last glucose was less than 500, may do bedside glucose instead of serum glucose.POCT-GLUCOSE [id number] 18:53:00 Test Item Value Reference Range Comments POC-GLUCOSE METER (BEAKER) 212 mg/dL 70-[address] [facility] [address] [facility] (test tutf=7387) [place] [address] POCT-GLUCOSE [id number] 17:14:00 Test Item Value Reference Range Comments POC-GLUCOSE METER (BEAKER) 145 mg/dL 70-[address] [facility] [address] [facility] (test tjkt=6284) WAY [facility] [address] BASIC METABOLIC [id number] 16:51:00 Test Item Value Reference Range Comments SODIUM (BEAKER) (test 140 meq/L 135-148 awyd=347) POTASSIUM (BEAKER) (test 3.9 meq/L 3.5-5.5 zyee=560) CHLORIDE (BEAKER) (test 114 meq/L 98-106 tdlg=819) CO2 (BEAKER) (test 14 meq/L 20-31 gmgg=479) BLOOD UREA NITROGEN 10 mg/dL 10-26 (BEAKER) (test dgdl=628) CREATININE (BEAKER) (test 0.94 mg/dL 0.50-1.20 poek=795) GLUCOSE RANDOM (BEAKER) 126 mg/dL 70-110 (test stzr=420) CALCIUM (BEAKER) (test 8.4 mg/dL 8.5-10.5 yhxl=644) EGFR (BEAKER) (test 77 mL/min/1.73 sq m ESTIMATED GFR IS NOT ltmt=0179) ACCURATE CREATININE CLEARANCE IN PREDICTING GLOMERULAR FILTRATION RATE. ESTIMATED GFR IS NOT APPLICABLE FOR DIALYSIS PATIENTS. If last glucose was less than 500, may do bedside glucose instead of serum glucose.[id number] 16:47:00 Test Item Value Reference Range Comments GLUCOSE RANDOM (BEAKER) (test qmct=517) 126 mg/dL 70-110 If last glucose was less than 500, may do bedside glucose instead of serum glucose.POCT-GLUCOSE [id number] 16:04:00 Test Item Value Reference Range Comments POC-GLUCOSE METER (BEAKER) 119 mg/dL 70-[address] [facility] [address] [facility] (test ifak=1924) WAY [facility] [address] [id number] 14:30:00 Test Item Value Reference Range Comments POTASSIUM (BEAKER) (test shfs=039) 3.9 meq/L 3.5-5.5 If last glucose was less than 500, may do bedside glucose instead of serum glucose.[id number] 14:30:00 Test Item Value Reference Range Comments GLUCOSE RANDOM (BEAKER) (test yxbr=489) 190 mg/dL 70-110 If last glucose was less than 500, may do bedside glucose instead of serum glucose.POCT-GLUCOSE [id number] 14:05:00 Test Item Value Reference Range Comments POC-GLUCOSE METER (BEAKER) 194 mg/dL 70-[address] [facility] [address] [facility] (test pokj=8915) [facility] [address] POCT-GLUCOSE [id number] 13:15:00 Test Item Value Reference Range Comments POC-GLUCOSE METER (BEAKER) 229 mg/dL 70-[address] [facility] [address] [facility] (test xakz=5078) [facility] [address] BASIC METABOLIC [id number] 12:44:00 Test Item Value Reference Range Comments SODIUM (BEAKER) (test 136 meq/L 135-148 ynso=281) POTASSIUM (BEAKER) (test 4.0 meq/L 3.5-5.5 rhjk=630) CHLORIDE (BEAKER) (test 111 meq/L 98-106 faqf=893) CO2 (BEAKER) (test 12 meq/L 20-31 lbae=800) BLOOD UREA NITROGEN 12 mg/dL 10-26 (BEAKER) (test ifcf=114) CREATININE (BEAKER) (test 0.99 mg/dL 0.50-1.20 ekdg=511) GLUCOSE RANDOM (BEAKER) 258 mg/dL 70-110 (test rplt=802) CALCIUM (BEAKER) (test 8.1 mg/dL 8.5-10.5 jhot=162) EGFR (BEAKER) (test 72 mL/min/1.73 sq m ESTIMATED GFR IS NOT qhga=8223) ACCURATE CREATININE CLEARANCE IN PREDICTING GLOMERULAR FILTRATION RATE. ESTIMATED GFR IS NOT APPLICABLE FOR DIALYSIS PATIENTS. If last glucose was less than 500, may do bedside glucose instead of serum glucose.[id number] 12:43:00 Test Item Value Reference Range Comments GLUCOSE RANDOM (BEAKER) (test wlac=011) 258 mg/dL 70-110 If last glucose was less than 500, may do bedside glucose instead of serum glucose.POCT-GLUCOSE [id number] 12:03:00 Test Item Value Reference Range Comments POC-GLUCOSE METER (BEAKER) 238 mg/dL 70-[address] [facility] [address] [facility] (test eqxa=1157) [facility] [address] POCT-GLUCOSE [id number] 11:05:00 Test Item Value Reference Range Comments POC-GLUCOSE METER (BEAKER) 261 mg/dL 70-[address] [facility] [address] [facility] (test oxsh=8226) [facility] [address] HEMOGLOBIN [id number] 10:07:00 Test Item Value Reference Range Comments HEMOGLOBIN A1C (BEAKER) (test iapq=327) > % 4.3-6.1 [id number] 10:00:00 Test Item Value Reference Range Comments GLUCOSE RANDOM (BEAKER) (test lpeg=231) 441 mg/dL 70-110 If last glucose was less than 500, may do bedside glucose instead of serum glucose.[id number] 09:55:00 Test Item Value Reference Range Comments POTASSIUM (BEAKER) (test lyjw=223) 4.1 meq/L 3.5-5.5 If last glucose was less than 500, may do bedside glucose instead of serum glucose.POCT-GLUCOSE [id number] 09:18:00 Test Item Value Reference Range Comments POC-GLUCOSE METER (BEAKER) > mg/dL 70-110 OUTSIDE MEASURING RANGETESTED AT (test fotf=7326) [facility] [address] [facility] [address] [id number] 09:15:00 Test Item Value Reference Range Comments GLUCOSE RANDOM (BEAKER) (test xxqg=142) 585 mg/dL 70-110 If last glucose was less than 500, may do bedside glucose instead of serum glucose.COMPREHENSIVE METABOLIC [id number] 08:30:00 Test Item Value Reference Range Comments TOTAL PROTEIN (BEAKER) 8.2 gm/dL 6.0-8.5 (test dllu=221) ALBUMIN (BEAKER) (test 4.5 g/dL 3.5-5.0 gkob=1042) ALKALINE PHOSPHATASE 135 U/L 30-115 (BEAKER) (test wznr=385) BILIRUBIN TOTAL (BEAKER) 0.3 mg/dL 0.1-1.3 (test jgyl=352) SODIUM (BEAKER) (test 130 meq/L 135-148 wwkw=960) POTASSIUM (BEAKER) (test 4.6 meq/L 3.5-5.5 fiai=920) CHLORIDE (BEAKER) (test 96 meq/L 98-106 koaz=637) CO2 (BEAKER) (test 10 meq/L 20-31 ljkg=565) BLOOD UREA NITROGEN 16 mg/dL 10-26 (BEAKER) (test eqdx=620) CREATININE (BEAKER) (test 1.49 mg/dL 0.50-1.20 xwwc=072) GLUCOSE RANDOM (BEAKER) 637 mg/dL 70-110 (test wkyb=227) CALCIUM (BEAKER) (test 9.5 mg/dL 8.5-10.5 absk=168) AST (SGOT) (BEAKER) (test 12 U/L 5-40 lbht=602) ALT (SGPT) (BEAKER) (test 14 U/L 6-50 wtxp=036) EGFR (BEAKER) (test 45 mL/min/1.73 sq m ESTIMATED GFR IS NOT cmvr=6237) ACCURATE CREATININE CLEARANCE IN PREDICTING GLOMERULAR FILTRATION RATE. ESTIMATED GFR IS NOT APPLICABLE FOR DIALYSIS PATIENTS. CBC W/PLT COUNT & AUTO [id number] 08:29:00 Test Item Value Reference Range Comments WHITE BLOOD CELL COUNT (BEAKER) (test vjec=729) 7.7 K/ L 4.0-10.0 RED BLOOD CELL COUNT (BEAKER) (test oldp=514) 5.18 M/ L 4.00-5.00 HEMOGLOBIN (BEAKER) (test iiwu=298) 14.6 GM/DL 12.0-15.0 HEMATOCRIT (BEAKER) (test sctq=894) 43.9 % 36.0-45.0 MEAN CORPUSCULAR VOLUME (BEAKER) (test temo=798) 84.8 fL 82.0-99.0 MEAN CORPUSCULAR HEMOGLOBIN (BEAKER) (test 28.1 pg 27.0-33.0 huyp=952) MEAN CORPUSCULAR HEMOGLOBIN CONC (BEAKER) (test 33.1 GM/DL 32.0-36.0 fzxi=398) RED CELL DISTRIBUTION WIDTH (BEAKER) (test 12.3 % 12.0-15.0 baxn=753) PLATELET COUNT (BEAKER) (test rgcn=071) 421 K/CU MM 150-430 MEAN PLATELET VOLUME (BEAKER) (test hlhh=694) 8.0 fL 6.5-10.5 NUCLEATED RED BLOOD CELLS (BEAKER) (test 0 /100 WBC 0-0 ylyr=987) NEUTROPHILS RELATIVE PERCENT (BEAKER) (test 50 % srcy=152) LYMPHOCYTES RELATIVE PERCENT (BEAKER) (test 45 % yaku=351) MONOCYTES RELATIVE PERCENT (BEAKER) (test 5 % maie=129) EOSINOPHILS RELATIVE PERCENT (BEAKER) (test 1 % alvv=821) BASOPHILS RELATIVE PERCENT (BEAKER) (test 1 % nylc=888) NEUTROPHILS ABSOLUTE COUNT (BEAKER) (test 3.80 K/ L 1.80-8.00 drxx=712) LYMPHOCYTES ABSOLUTE COUNT (BEAKER) (test 3.40 K/ L 1.48-4.50 xbrs=849) MONOCYTES ABSOLUTE COUNT (BEAKER) (test 0.40 K/ L 0.00-1.30 ppyy=506) EOSINOPHILS ABSOLUTE COUNT (BEAKER) (test 0.10 K/ L 0.00-0.50 coid=185) BASOPHILS ABSOLUTE COUNT (BEAKER) (test 0.00 K/ L 0.00-0.20 lqrj=306) [id number] 08:25:00 Test Item Value Reference Range Comments PHOSPHORUS (BEAKER) (test mhqb=715) 4.0 mg/dL 2.5-4.5 [id number] 08:25:00 Test Item Value Reference Range Comments MAGNESIUM (BEAKER) (test qmkz=094) 2.0 mg/dL 1.5-3.0 SCREEN, [id number] 08:16:00 Test Item Value Reference Range Comments TEST URINE (BEAKER) (test qixg=980) Negative URINALYSIS W/ [id number] 08:16:00 Test Item Value Reference Range Comments COLOR (BEAKER) (test qbku=974) Colorless CLARITY (BEAKER) (test opks=337) Clear SPECIFIC GRAVITY UA (BEAKER) (test kpxo=678) 1.025 1.001-1.035 PH UA (BEAKER) (test rngm=186) 5.0 5.0-8.0 PROTEIN UA (BEAKER) (test rjxw=295) Negative Negative GLUCOSE UA (BEAKER) (test vjxi=397) >500 mg/dL Negative KETONES UA (BEAKER) (test lyfe=884) 80 mg/dL Negative BILIRUBIN UA (BEAKER) (test dzuo=418) Negative Negative BLOOD UA (BEAKER) (test kicn=053) Negative Negative NITRITE UA (BEAKER) (test vgqk=205) Negative Negative LEUKOCYTE ESTERASE UA (BEAKER) (test sxaa=721) Negative Negative UROBILINOGEN UA (BEAKER) (test nvqk=068) < mg/dL 0.2-1.0 RBC UA (BEAKER) (test fphe=398) 0 /HPF WBC UA (BEAKER) (test spmm=463) < /HPF MUCUS (BEAKER) (test ehfz=2378) Rare SOURCE(BEAKER) (test hhwq=3310) KETONE, [id number] 08:09:00 Test Item Value Reference Range Comments KETONES, BLOOD (BEAKER) (test vofq=2715) 6.1 mmol/L <0.4 PH, [id number] 08:08:00 Test Item Value Reference Range Comments PH VENOUS (BEAKER) (test rujx=425) 7.18 7.32-7.42 BLOOD [id number] 13:00:00 Test Item Value Reference Range Comments CULTURE (BEAKER) (test drqp=4759) No growth in 5 days BLOOD [id number] 13:00:00 Test Item Value Reference Range Comments CULTURE (BEAKER) (test mgia=9317) No growth in 5 days POCT-GLUCOSE [id number] 17:12:00 Test Item Value Reference Range Comments POC-GLUCOSE METER (BEAKER) 136 mg/dL 70-[address] [facility] [address] [facility] (test fytg=0495) WAY [facility] [address] POCT-GLUCOSE [id number] 16:37:00 Test Item Value Reference Range Comments POC-GLUCOSE METER (BEAKER) 45 mg/dL 70-[address] [facility] [address] [facility] (test xkxs=1737) WAY [facility] [address] POCT-GLUCOSE [id number] 11:32:00 Test Item Value Reference Range Comments POC-GLUCOSE METER (BEAKER) 98 mg/dL 70-[address] [facility] [address] [facility] [place] (test btnt=4019) WAY [facility] [address] POCT-GLUCOSE [id number] 06:45:00 Test Item Value Reference Range Comments POC-GLUCOSE METER (BEAKER) 85 mg/dL 70-[address] [facility] [address] [facility] [place] (test dhqr=6646) [facility] [address] [id number] 06:25:00 Test Item Value Reference Range Comments PHOSPHORUS (BEAKER) (test viam=505) 2.4 mg/dL 2.5-4.5 [id number] 06:25:00 Test Item Value Reference Range Comments MAGNESIUM (BEAKER) (test cpgp=680) 2.4 mg/dL 1.5-3.0 BASIC METABOLIC [id number] 06:25:00 Test Item Value Reference Range Comments SODIUM (BEAKER) (test 138 meq/L 135-148 vxat=904) POTASSIUM (BEAKER) (test 3.9 meq/L 3.5-5.5 fbso=746) CHLORIDE (BEAKER) (test 110 meq/L 98-106 qpbx=514) CO2 (BEAKER) (test 19 meq/L 20-31 epqs=044) BLOOD UREA NITROGEN 3 mg/dL 10-26 (BEAKER) (test xwxu=186) CREATININE (BEAKER) (test 0.79 mg/dL 0.50-1.20 aiak=111) GLUCOSE RANDOM (BEAKER) 104 mg/dL 70-110 (test wsdn=582) CALCIUM (BEAKER) (test 8.6 mg/dL 8.5-10.5 lbpr=618) EGFR (BEAKER) (test 94 mL/min/1.73 sq m ESTIMATED GFR IS NOT tndh=1991) ACCURATE CREATININE CLEARANCE IN PREDICTING GLOMERULAR FILTRATION RATE. ESTIMATED GFR IS NOT APPLICABLE FOR DIALYSIS PATIENTS. CBC W/PLT COUNT & AUTO [id number] 05:58:00 Test Item Value Reference Range Comments WHITE BLOOD CELL COUNT (BEAKER) (test dokd=901) 9.2 K/ L 4.0-10.0 RED BLOOD CELL COUNT (BEAKER) (test aory=339) 4.36 M/ L 4.00-5.00 HEMOGLOBIN (BEAKER) (test awfd=689) 12.6 GM/DL 12.0-15.0 HEMATOCRIT (BEAKER) (test rkyd=592) 37.0 % 36.0-45.0 MEAN CORPUSCULAR VOLUME (BEAKER) (test iyva=791) 84.8 fL 82.0-99.0 MEAN CORPUSCULAR HEMOGLOBIN (BEAKER) (test 29.0 pg 27.0-33.0 fcst=687) MEAN CORPUSCULAR HEMOGLOBIN CONC (BEAKER) (test 34.2 GM/DL 32.0-36.0 vfza=935) RED CELL DISTRIBUTION WIDTH (BEAKER) (test 12.5 % 12.0-15.0 wmpw=616) PLATELET COUNT (BEAKER) (test kkra=153) 359 K/CU MM 150-430 MEAN PLATELET VOLUME (BEAKER) (test xmwu=770) 7.2 fL 6.5-10.5 NUCLEATED RED BLOOD CELLS (BEAKER) (test 0 /100 WBC 0-0 pjdl=356) NEUTROPHILS RELATIVE PERCENT (BEAKER) (test 53 % dyhq=962) LYMPHOCYTES RELATIVE PERCENT (BEAKER) (test 40 % cwan=042) MONOCYTES RELATIVE PERCENT (BEAKER) (test 5 % jafg=142) EOSINOPHILS RELATIVE PERCENT (BEAKER) (test 2 % pqcd=038) BASOPHILS RELATIVE PERCENT (BEAKER) (test 0 % fxjk=970) NEUTROPHILS ABSOLUTE COUNT (BEAKER) (test 4.90 K/ L 1.80-8.00 xzns=062) LYMPHOCYTES ABSOLUTE COUNT (BEAKER) (test 3.70 K/ L 1.48-4.50 yphc=253) MONOCYTES ABSOLUTE COUNT (BEAKER) (test 0.50 K/ L 0.00-1.30 urcq=991) EOSINOPHILS ABSOLUTE COUNT (BEAKER) (test 0.20 K/ L 0.00-0.50 cyka=113) BASOPHILS ABSOLUTE COUNT (BEAKER) (test 0.00 K/ L 0.00-0.20 povx=840) POCT-GLUCOSE [id number] 05:38:00 Test Item Value Reference Range Comments POC-GLUCOSE METER (BEAKER) 102 mg/dL 70-110 TESTED AT [address] (test ucjs=4547) [facility] [address] POCT-GLUCOSE [id number] 03:29:00 Test Item Value Reference Range Comments POC-GLUCOSE METER (BEAKER) 163 mg/dL 70-110 TESTED AT [address] (test mnfx=5337) [facility] [address] POCT-GLUCOSE [id number] 03:29:00 Test Item Value Reference Range Comments POC-GLUCOSE METER (BEAKER) 155 mg/dL 70-[address] [facility] [address] [facility] [place] (test tain=7218) [facility] [address] BASIC METABOLIC [id number] 01:42:00 Test Item Value Reference Range Comments SODIUM (BEAKER) (test 136 meq/L 135-148 dvkj=145) POTASSIUM (BEAKER) (test 3.7 meq/L 3.5-5.5 bvab=251) CHLORIDE (BEAKER) (test 109 meq/L 98-106 jqqi=542) CO2 (BEAKER) (test 17 meq/L 20-31 byyw=499) BLOOD UREA NITROGEN 3 mg/dL 10-26 (BEAKER) (test fpvm=052) CREATININE (BEAKER) (test 0.79 mg/dL 0.50-1.20 ukby=671) GLUCOSE RANDOM (BEAKER) 153 mg/dL 70-110 (test fjsr=593) CALCIUM (BEAKER) (test 8.2 mg/dL 8.5-10.5 ohwl=411) EGFR (BEAKER) (test 94 mL/min/1.73 sq m ESTIMATED GFR IS NOT koqu=2470) ACCURATE CREATININE CLEARANCE IN PREDICTING GLOMERULAR FILTRATION RATE. ESTIMATED GFR IS NOT APPLICABLE FOR DIALYSIS PATIENTS. [id number] 01:39:00 Test Item Value Reference Range Comments PHOSPHORUS (BEAKER) (test mdwq=172) 2.1 mg/dL 2.5-4.5 [id number] 01:39:00 Test Item Value Reference Range Comments MAGNESIUM (BEAKER) (test rcen=454) 2.0 mg/dL 1.5-3.0 POCT-GLUCOSE [id number] 01:19:00 Test Item Value Reference Range Comments POC-GLUCOSE METER (BEAKER) 152 mg/dL 70-[address] [facility] [address] [facility] (test bvlt=3454) [facility] [address] POCT-GLUCOSE [id number] 01:07:00 Test Item Value Reference Range Comments POC-GLUCOSE METER (BEAKER) 145 mg/dL 70-[address] [facility] [address] [facility] (test qmxo=9543) [facility] [address] POCT-GLUCOSE [id number] 01:07:00 Test Item Value Reference Range Comments POC-GLUCOSE METER (BEAKER) 165 mg/dL 70-[address] [facility] [address] [facility] (test pspw=6720) [facility] [address] POCT-GLUCOSE [id number] 01:07:00 Test Item Value Reference Range Comments POC-GLUCOSE METER (BEAKER) 163 mg/dL 70-[address] [facility] [address] [facility] (test hhez=8084) [facility] [address] BASIC METABOLIC [id number] 20:59:00 Test Item Value Reference Range Comments SODIUM (BEAKER) (test 137 meq/L 135-148 ddfz=643) POTASSIUM (BEAKER) (test 3.9 meq/L 3.5-5.5 Specimen slightly ahfe=254) hemolyzed CHLORIDE (BEAKER) (test 111 meq/L 98-106 juib=270) CO2 (BEAKER) (test 13 meq/L 20-31 fjqc=691) BLOOD UREA NITROGEN 4 mg/dL 10-26 (BEAKER) (test qfkd=717) CREATININE (BEAKER) (test 0.83 mg/dL 0.50-1.20 Specimen slightly wcmq=456) hemolyzed GLUCOSE RANDOM (BEAKER) 160 mg/dL 70-110 (test bjqc=930) CALCIUM (BEAKER) (test 8.5 mg/dL 8.5-10.5 fuuy=358) EGFR (BEAKER) (test 89 mL/min/1.73 sq m ESTIMATED GFR IS NOT hyrw=2170) ACCURATE CREATININE CLEARANCE IN PREDICTING GLOMERULAR FILTRATION RATE. ESTIMATED GFR IS NOT APPLICABLE FOR DIALYSIS PATIENTS. [id number] 20:58:00 Test Item Value Reference Range Comments MAGNESIUM (BEAKER) (test 1.8 mg/dL 1.5-3.0 Specimen slightly hemolyzed zqhh=829) [id number] 20:58:00 Test Item Value Reference Range Comments PHOSPHORUS (BEAKER) (test 2.2 mg/dL 2.5-4.5 Specimen slightly hemolyzed lzum=632) POCT-GLUCOSE [id number] 18:02:00 Test Item Value Reference Range Comments POC-GLUCOSE METER (BEAKER) 176 mg/dL 70-[address] [facility] [address] [facility] (test oztl=6398) [address] [facility] [address] [id number] 16:46:00 Test Item Value Reference Range Comments MAGNESIUM (BEAKER) (test 2.1 mg/dL 1.5-3.0 Specimen slightly hemolyzed fsrk=537) [id number] 16:46:00 Test Item Value Reference Range Comments PHOSPHORUS (BEAKER) (test 2.1 mg/dL 2.5-4.5 Specimen slightly hemolyzed ofxn=699) BASIC METABOLIC [id number] 16:46:00 Test Item Value Reference Range Comments SODIUM (BEAKER) (test 134 meq/L 135-148 jcxc=047) POTASSIUM (BEAKER) (test 4.4 meq/L 3.5-5.5 Specimen slightly dzsn=600) hemolyzed CHLORIDE (BEAKER) (test 109 meq/L 98-106 pveo=161) CO2 (BEAKER) (test 13 meq/L 20-31 vfah=002) BLOOD UREA NITROGEN 5 mg/dL 10-26 (BEAKER) (test kqvh=597) CREATININE (BEAKER) (test 0.79 mg/dL 0.50-1.20 Specimen slightly mswg=659) hemolyzed GLUCOSE RANDOM (BEAKER) 177 mg/dL 70-110 (test lvsj=798) CALCIUM (BEAKER) (test 7.8 mg/dL 8.5-10.5 bnid=913) EGFR (BEAKER) (test 94 mL/min/1.73 sq m ESTIMATED GFR IS NOT llsj=4754) ACCURATE CREATININE CLEARANCE IN PREDICTING GLOMERULAR FILTRATION RATE. ESTIMATED GFR IS NOT APPLICABLE FOR DIALYSIS PATIENTS. CALCIUM, [id number] 16:21:00 Test Item Value Reference Range Comments CALCIUM IONIZED (BEAKER) (test antx=673) 1.13 mmol/L 1.12-1.27 PH, BLOOD (BEAKER) (test mjnr=7848) 7.30 Check serum Ionized Calcium level after 4 hours after IV Calcium replacement.POCT-GLUCOSE [id number] 16:12:00 Test Item Value Reference Range Comments POC-GLUCOSE METER (BEAKER) 191 mg/dL 70-[address] [facility] [address] [facility] (test ereu=5009) WAY [facility] [address] POCT-GLUCOSE [id number] 15:20:00 Test Item Value Reference Range Comments POC-GLUCOSE METER (BEAKER) 181 mg/dL 70-[address] [facility] [address] [facility] (test ylsy=3332) WAY [facility] [address] POCT-GLUCOSE [id number] 14:15:00 Test Item Value Reference Range Comments POC-GLUCOSE METER (BEAKER) 169 mg/dL 70-[address] [facility] [address] [facility] (test drnk=7743) WAY [facility] [address] BASIC METABOLIC [id number] 13:44:00 Test Item Value Reference Range Comments SODIUM (BEAKER) (test 137 meq/L 135-148 hhdr=265) POTASSIUM (BEAKER) (test 3.8 meq/L 3.5-5.5 zfcr=094) CHLORIDE (BEAKER) (test 112 meq/L 98-106 panp=736) CO2 (BEAKER) (test 13 meq/L 20-31 uqyn=732) BLOOD UREA NITROGEN 7 mg/dL - (BEAKER) (test kthy=992) CREATININE (BEAKER) (test 0.78 mg/dL 0.50-1.20 fkvs=841) GLUCOSE RANDOM (BEAKER) 141 mg/dL 70-110 (test rbzl=926) CALCIUM (BEAKER) (test 7.7 mg/dL 8.5-10.5 qofh=188) EGFR (BEAKER) (test 95 mL/min/1.73 sq m ESTIMATED GFR IS NOT gbvj=4858) ACCURATE CREATININE CLEARANCE IN PREDICTING GLOMERULAR FILTRATION RATE. ESTIMATED GFR IS NOT APPLICABLE FOR DIALYSIS PATIENTS. POCT-GLUCOSE [id number] 13:24:00 Test Item Value Reference Range Comments POC-GLUCOSE METER (BEAKER) 157 mg/dL 70-[address] [facility] [address] [facility] (test ozut=5679) WAY [facility] [address] POCT-GLUCOSE [id number] 12:34:00 Test Item Value Reference Range Comments POC-GLUCOSE METER (BEAKER) 131 mg/dL 70-[address] [facility] [address] [facility] (test gatt=6880) WAY [facility] [address] POCT-GLUCOSE [id number] 11:39:00 Test Item Value Reference Range Comments POC-GLUCOSE METER (BEAKER) 160 mg/dL 70-[address] [facility] [address] [facility] (test ihdg=3211) WAY [facility] [address] [id number] 11:13:00 Test Item Value Reference Range Comments PROCALCITONIN (BEAKER) (test xemb=3188) < ng/mL <0.05 SEPSIS RISK (ng/mL)Low: 0.05-0.50Intermediate: 0.51-2.00High: & gt;=2.01POCT-GLUCOSE [id number] 10:40:00 Test Item Value Reference Range Comments POC-GLUCOSE METER (BEAKER) 202 mg/dL 70-[address] [facility] [address] [facility] (test pjda=0957) WAY [facility] [address] [id number] 10:04:00 Test Item Value Reference Range Comments PHOSPHORUS (BEAKER) (test 1.4 mg/dL 2.5-4.5 Specimen slightly hemolyzed kgrn=362) BASIC METABOLIC [id number] 10:04:00 Test Item Value Reference Range Comments SODIUM (BEAKER) (test 138 meq/L 135-148 xdxk=738) POTASSIUM (BEAKER) (test 4.0 meq/L 3.5-5.5 Specimen slightly cbap=021) hemolyzed CHLORIDE (BEAKER) (test 113 meq/L 98-106 uvvb=231) CO2 (BEAKER) (test 11 meq/L 20-31 dbkj=137) BLOOD UREA NITROGEN 9 mg/dL 10-26 (BEAKER) (test mwaf=457) CREATININE (BEAKER) (test 0.88 mg/dL 0.50-1.20 Specimen slightly vvre=024) hemolyzed GLUCOSE RANDOM (BEAKER) 224 mg/dL 70-110 (test evce=126) CALCIUM (BEAKER) (test 7.9 mg/dL 8.5-10.5 ihzm=946) EGFR (BEAKER) (test 83 mL/min/1.73 sq m ESTIMATED GFR IS NOT dmwh=0179) ACCURATE CREATININE CLEARANCE IN PREDICTING GLOMERULAR FILTRATION RATE. ESTIMATED GFR IS NOT APPLICABLE FOR DIALYSIS PATIENTS. [id number] 10:02:00 Test Item Value Reference Range Comments MAGNESIUM (BEAKER) (test 1.8 mg/dL 1.5-3.0 Specimen slightly hemolyzed wpod=846) POCT-GLUCOSE [id number] 09:36:00 Test Item Value Reference Range Comments POC-GLUCOSE METER (BEAKER) 212 mg/dL 70-[address] [facility] [address] [facility] (test vnyi=5780) [facility] [address] POCT-GLUCOSE [id number] 08:43:00 Test Item Value Reference Range Comments POC-GLUCOSE METER (BEAKER) 268 mg/dL 70-[address] [facility] [id number] [place] [address] (test fkcp=9790) [facility] [address] [id number] 07:47:00 Test Item Value Reference Range Comments POTASSIUM (BEAKER) (test cggx=600) 4.0 meq/L 3.5-5.5 If last glucose was less than 500, may do bedside glucose instead of serum glucose.[id number] 07:47:00 Test Item Value Reference Range Comments GLUCOSE RANDOM (BEAKER) (test ngmw=624) 370 mg/dL 70-110 If last glucose was less than 500, may do bedside glucose instead of serum glucose.POCT-GLUCOSE [id number] 07:31:00 Test Item Value Reference Range Comments POC-GLUCOSE METER (BEAKER) 328 mg/dL 70-110 Notified VI DAVIS/TESTED AT [facility] (test rwhd=8412) [address] [place] [address] POCT-GLUCOSE [id number] 07:31:00 Test Item Value Reference Range Comments POC-GLUCOSE METER (BEAKER) 414 mg/dL 70-[address] [facility] [id number] [place] [address] (test mdbd=3488) [place] [address] [id number] 06:57:00 Test Item Value Reference Range Comments POTASSIUM (BEAKER) (test kjok=096) 4.5 meq/L 3.5-5.5 [id number] 06:51:00 Test Item Value Reference Range Comments GLUCOSE RANDOM (BEAKER) (test zlzg=419) 523 mg/dL 70-110 If last glucose was less than 500, may do bedside glucose instead of serum glucose.URINALYSIS W/ REFLEX URINE [id number] 06:29:00 Test Item Value Reference Range Comments COLOR (BEAKER) (test tjhs=168) Colorless CLARITY (BEAKER) (test krec=956) Hazy SPECIFIC GRAVITY UA (BEAKER) (test fxgl=544) 1.022 1.001-1.035 PH UA (BEAKER) (test ktef=884) 5.0 5.0-8.0 PROTEIN UA (BEAKER) (test lcew=616) Negative Negative GLUCOSE UA (BEAKER) (test lmbd=787) >500 mg/dL Negative KETONES UA (BEAKER) (test lwnm=354) 80 mg/dL Negative BILIRUBIN UA (BEAKER) (test zrtr=311) Negative Negative BLOOD UA (BEAKER) (test eeak=663) Large Negative NITRITE UA (BEAKER) (test chkt=225) Negative Negative LEUKOCYTE ESTERASE UA (BEAKER) (test zgwr=342) Negative Negative UROBILINOGEN UA (BEAKER) (test wvvl=595) < mg/dL 0.2-1.0 RBC UA (BEAKER) (test jaoo=897) 170 /HPF WBC UA (BEAKER) (test ehif=333) 27 /HPF MUCUS (BEAKER) (test xrin=5633) Rare SOURCE(BEAKER) (test hgst=7356) RAPID INFLUENZA A&B [id number] 06:13:00 Test Item Value Reference Range Comments RAPID INFLUENZA A AG (BEAKER) (test zpzx=1091) Negative Negative RAPID INFLUENZA B AG (BEAKER) (test dyxf=8966) Negative Negative SCREEN, [id number] 05:58:00 Test Item Value Reference Range Comments TEST URINE (BEAKER) (test xxid=707) Negative RAD, CHEST, 1 VIEW, NON [id number] 05:52:00Reason for exam:-> EMESISReason for exam:->BLOOD SUGAR PROBLEMShould this be performed at the bedside?->YesIs the patient ?->NoFINAL REPORT Comparison examination: 04/07/2017 No pneumothorax, focal pulmonary consolidation, or significant pleural effusion. Normal cardiomediastinal contours. Normal skeleton and soft tissues. Impression: No acute abnormality. Signed: Joesph Foy Verified Date/Time: 05/18/2017 05:52 :18 Reading Location: [facility] C013T Transitional Reading Room HEMOGLOBIN [id number] 05:49:00 Test Item Value Reference Range Comments HEMOGLOBIN A1C (BEAKER) (test wfsg=891) 13.2 % 4.3-6.1 BASIC METABOLIC [id number] 05:28:00 Test Item Value Reference Range Comments SODIUM (BEAKER) (test 132 meq/L 135-148 eask=833) POTASSIUM (BEAKER) (test 4.4 meq/L 3.5-5.5 sbkt=186) CHLORIDE (BEAKER) (test 101 meq/L 98-106 blos=968) CO2 (BEAKER) (test 8 meq/L 20-31 bzlt=596) BLOOD UREA NITROGEN 12 mg/dL 10-26 (BEAKER) (test mjco=931) CREATININE (BEAKER) (test 1.29 mg/dL 0.50-1.20 lpwz=207) GLUCOSE RANDOM (BEAKER) 622 mg/dL 70-110 (test kpup=439) CALCIUM (BEAKER) (test 8.7 mg/dL 8.5-10.5 kaml=817) EGFR (BEAKER) (test 53 mL/min/1.73 sq m ESTIMATED GFR IS NOT ntuf=5612) ACCURATE CREATININE CLEARANCE IN PREDICTING GLOMERULAR FILTRATION RATE. ESTIMATED GFR IS NOT APPLICABLE FOR DIALYSIS PATIENTS. If last glucose was less than 500, may do bedside glucose instead of serum glucose.HEPATIC FUNCTION [id number] 05:27:00 Test Item Value Reference Range Comments TOTAL PROTEIN (BEAKER) (test assd=931) 7.9 gm/dL 6.0-8.5 ALBUMIN (BEAKER) (test ndlr=6245) 4.1 g/dL 3.5-5.0 BILIRUBIN TOTAL (BEAKER) (test cref=940) 0.4 mg/dL 0.1-1.3 BILIRUBIN DIRECT (BEAKER) (test bbsz=947) 0.2 mg/dL 0.0-0.5 ALKALINE PHOSPHATASE (BEAKER) (test uoyr=148) 136 U/L 30-115 AST (SGOT) (BEAKER) (test cjvd=475) 11 U/L 5-40 ALT (SGPT) (BEAKER) (test vlng=190) 10 U/L 6-50 If last glucose was less than 500, may do bedside glucose instead of serum glucose.Specimen slightlylipemicBLOOD GAS, [id number] 05:04:00 Test Item Value Reference Range Comments PH VENOUS (BEAKER) (test elhe=521) 7.17 7.32-7.42 PCO2 VENOUS (BEAKER) (test aoxv=904) 30 mmHg 41-51 PO2 VENOUS (BEAKER) (test eujk=289) 35 mmHg 25-40 O2 SATURATION VENOUS (BEAKER) (test rzfa=410) 53.6 % 40.0-70.0 HCO3 VENOUS (BEAKER) (test zjze=387) 11 mmol/L 21-29 BASE EXCESS VENOUS (BEAKER) (test pfhq=512) -16.5 mmol/L -2.0-3.0 PATIENT TEMPERATURE (BEAKER) (test kxgi=0741) 36.9 C FIO2 (BEAKER) (test dqrf=7070) 21.0 % KETONE, [id number] 05:03:00 Test Item Value Reference Range Comments KETONES, BLOOD (BEAKER) (test nueb=5419) 5.8 mmol/L <0.4 CBC W/PLT COUNT & AUTO [id number] 05:02:00 Test Item Value Reference Range Comments WHITE BLOOD CELL COUNT (BEAKER) (test szyj=811) 15.3 K/ L 4.0-10.0 RED BLOOD CELL COUNT (BEAKER) (test spny=312) 4.71 M/ L 4.00-5.00 HEMOGLOBIN (BEAKER) (test wqdz=222) 13.5 GM/DL 12.0-15.0 HEMATOCRIT (BEAKER) (test oogy=995) 40.9 % 36.0-45.0 MEAN CORPUSCULAR VOLUME (BEAKER) (test tzbu=517) 86.8 fL 82.0-99.0 MEAN CORPUSCULAR HEMOGLOBIN (BEAKER) (test 28.7 pg 27.0-33.0 lfvc=096) MEAN CORPUSCULAR HEMOGLOBIN CONC (BEAKER) (test 33.1 GM/DL 32.0-36.0 emzm=677) RED CELL DISTRIBUTION WIDTH (BEAKER) (test 12.3 % 12.0-15.0 tgrf=904) PLATELET COUNT (BEAKER) (test oerx=512) 382 K/CU MM 150-430 MEAN PLATELET VOLUME (BEAKER) (test mnyc=773) 7.7 fL 6.5-10.5 NUCLEATED RED BLOOD CELLS (BEAKER) (test 0 /100 WBC 0-0 zvbf=536) NEUTROPHILS RELATIVE PERCENT (BEAKER) (test 73 % yuqt=321) LYMPHOCYTES RELATIVE PERCENT (BEAKER) (test 21 % ojaz=991) MONOCYTES RELATIVE PERCENT (BEAKER) (test 5 % aedf=651) EOSINOPHILS RELATIVE PERCENT (BEAKER) (test 1 % tlfv=406) BASOPHILS RELATIVE PERCENT (BEAKER) (test 0 % wtce=477) NEUTROPHILS ABSOLUTE COUNT (BEAKER) (test 11.20 K/ L 1.80-8.00 qleq=643) LYMPHOCYTES ABSOLUTE COUNT (BEAKER) (test 3.30 K/ L 1.48-4.50 rras=489) MONOCYTES ABSOLUTE COUNT (BEAKER) (test 0.70 K/ L 0.00-1.30 slxl=626) EOSINOPHILS ABSOLUTE COUNT (BEAKER) (test 0.10 K/ L 0.00-0.50 mehf=083) BASOPHILS ABSOLUTE COUNT (BEAKER) (test 0.00 K/ L 0.00-0.20 vgjr=776) POCT-GLUCOSE [id number] 04:49:00 Test Item Value Reference Range Comments POC-GLUCOSE METER (BEAKER) > mg/dL 70-110 OUTSIDE MEASURING RANGETESTED AT (test cgwm=2564) [facility] [address] [facility] [address] BLOOD [id number] 00:00:00 Test Item Value Reference Range Comments CULTURE (BEAKER) (test ngli=5757) No growth in 5 days BLOOD [id number] 00:00:00 Test Item Value Reference Range Comments CULTURE (BEAKER) (test tjji=2417) No growth in 5 days URINE [id number] 15:21:00 Test Item Value Reference Range Comments CULTURE (BEAKER) (test pjzm=1827) >100,000 col/mL skin christophe POCT-GLUCOSE [id number] 14:37:00 Test Item Value Reference Range Comments POC-GLUCOSE METER (BEAKER) 326 mg/dL 70-110 TESTED AT [facility] [address] [facility] (test hgyu=0049) [facility] [address] POCT-GLUCOSE [id number] 13:26:00 Test Item Value Reference Range Comments POC-GLUCOSE METER (BEAKER) 331 mg/dL 70-110 TESTED AT [facility] [address] [facility] (test swxi=0565) [facility] [address] CBC W/PLT COUNT & AUTO [id number] 11:34:00 Test Item Value Reference Range Comments WHITE BLOOD CELL COUNT (BEAKER) (test rqpu=770) 5.9 K/ L 3.5-10.5 RED BLOOD CELL COUNT (BEAKER) (test hsaf=007) 4.15 M/ L 3.93-5.22 HEMOGLOBIN (BEAKER) (test qrwe=473) 11.7 GM/DL 11.2-15.7 HEMATOCRIT (BEAKER) (test aakj=233) 34.9 % 34.1-44.9 MEAN CORPUSCULAR VOLUME (BEAKER) (test ufsw=856) 84.1 fL 79.4-94.8 MEAN CORPUSCULAR HEMOGLOBIN (BEAKER) (test 28.2 pg 25.6-32.2 acvm=512) MEAN CORPUSCULAR HEMOGLOBIN CONC (BEAKER) (test 33.5 GM/DL 32.2-35.5 hmud=658) RED CELL DISTRIBUTION WIDTH (BEAKER) (test 12.8 % 11.7-14.4 lcfz=894) PLATELET COUNT (BEAKER) (test ehej=509) 272 K/CU MM 150-450 MEAN PLATELET VOLUME (BEAKER) (test vlhi=715) 9.5 fL 9.4-12.3 NUCLEATED RED BLOOD CELLS (BEAKER) (test 0 /100 WBC 0-0 tgsg=899) NEUTROPHILS RELATIVE PERCENT (BEAKER) (test 44 % kssv=174) LYMPHOCYTES RELATIVE PERCENT (BEAKER) (test 47 % yeuh=218) MONOCYTES RELATIVE PERCENT (BEAKER) (test 6 % tdvv=750) EOSINOPHILS RELATIVE PERCENT (BEAKER) (test 2 % quwh=769) BASOPHILS RELATIVE PERCENT (BEAKER) (test 1 % ofxs=043) NEUTROPHILS ABSOLUTE COUNT (BEAKER) (test 2.61 K/ L 1.56-6.13 bied=557) LYMPHOCYTES ABSOLUTE COUNT (BEAKER) (test 2.79 K/ L 1.18-3.74 xycq=859) MONOCYTES ABSOLUTE COUNT (BEAKER) (test 0.33 K/ L 0.24-0.36 cprl=932) EOSINOPHILS ABSOLUTE COUNT (BEAKER) (test 0.10 K/ L 0.04-0.36 koju=466) BASOPHILS ABSOLUTE COUNT (BEAKER) (test 0.04 K/ L 0.01-0.08 rdlb=329) IMMATURE GRANULOCYTES-RELATIVE PERCENT (BEAKER) 0 % 0-1 (test aony=6561) (MANUAL DIFFERENTIAL)2017-04-09 11:34:00 Test Item Value Reference Range Comments TOTAL COUNTED (BEAKER) (test maro=9954) POCT-GLUCOSE [id number] 11:18:00 Test Item Value Reference Range Comments POC-GLUCOSE METER (BEAKER) 349 mg/dL 70-110 TESTED AT [address] (test ipcm=5587) [place] [id number] POCT-GLUCOSE [id number] 09:34:00 Test Item Value Reference Range Comments POC-GLUCOSE METER (BEAKER) 61 mg/dL 70-110 TESTED AT [address] (test kfty=2905) [facility] [address] POCT-GLUCOSE [id number] 08:48:00 Test Item Value Reference Range Comments POC-GLUCOSE METER (BEAKER) 79 mg/dL 70-110 TESTED AT [address] (test dujy=0957) [facility] [address] BASIC METABOLIC [id number] 06:12:00 Test Item Value Reference Range Comments SODIUM (BEAKER) (test 135 meq/L 136-145 qyai=292) POTASSIUM (BEAKER) (test 4.7 meq/L 3.5-5.1 khzd=536) CHLORIDE (BEAKER) (test 105 meq/L 98-107 hdwe=650) CO2 (BEAKER) (test 22 meq/L 22-29 vunh=278) BLOOD UREA NITROGEN 11 mg/dL 7-21 (BEAKER) (test aqnz=442) CREATININE (BEAKER) (test 0.83 mg/dL 0.57-1.25 acdi=102) GLUCOSE RANDOM (BEAKER) 387 mg/dL 70-105 (test udjg=833) CALCIUM (BEAKER) (test 8.7 mg/dL 8.4-10.2 nxlg=553) EGFR (BEAKER) (test 89 mL/min/1.73 sq m ESTIMATED GFR IS NOT jjjp=6746) ACCURATE CREATININE CLEARANCE IN PREDICTING GLOMERULAR FILTRATION RATE. ESTIMATED GFR IS NOT APPLICABLE FOR DIALYSIS PATIENTS. KETONE, [id number] 05:43:00 Test Item Value Reference Range Comments KETONES, BLOOD (BEAKER) (test psmo=7898) 0.1 mmol/L <0.4 POCT-GLUCOSE [id number] 05:39:00 Test Item Value Reference Range Comments POC-GLUCOSE METER (BEAKER) 366 mg/dL 70-110 TESTED AT [address] (test ncty=6242) [facility] [address] POCT-GLUCOSE [id number] 22:32:00 Test Item Value Reference Range Comments POC-GLUCOSE METER (BEAKER) 302 mg/dL 70-110 TESTED AT [address] (test fyoi=6220) [place] [id number] POCT-GLUCOSE [id number] 19:15:00 Test Item Value Reference Range Comments POC-GLUCOSE METER (BEAKER) 273 mg/dL 70-110 TESTED AT [address] (test tgas=5358) [place] [id number] POCT-GLUCOSE [id number] 17:49:00 Test Item Value Reference Range Comments POC-GLUCOSE METER (BEAKER) 174 mg/dL 70-110 TESTED AT [address] (test xmxo=5132) [place] [id number] POCT-GLUCOSE [id number] 17:02:00 Test Item Value Reference Range Comments POC-GLUCOSE METER (BEAKER) 171 mg/dL 70-110 TESTED AT [address] (test bfed=2093) [facility] [address] POCT-GLUCOSE [id number] 15:17:00 Test Item Value Reference Range Comments POC-GLUCOSE METER (BEAKER) 135 mg/dL 70-110 TESTED AT [address] (test uddh=0935) [place] [id number] POCT-GLUCOSE [id number] 13:10:00 Test Item Value Reference Range Comments POC-GLUCOSE METER (BEAKER) 61 mg/dL 70-110 TESTED AT [address] (test byhp=7294) [place] [id number] POCT-GLUCOSE [id number] 11:21:00 Test Item Value Reference Range Comments POC-GLUCOSE METER (BEAKER) 57 mg/dL 70-110 Notified VI DAVIS/TESTED AT [facility] (test tzvg=8027) [address] [facility] [address] POCT-GLUCOSE [id number] 08:02:00 Test Item Value Reference Range Comments POC-GLUCOSE METER (BEAKER) 68 mg/dL 70-110 Notified VI DAVIS/TESTED AT [facility] (test swvn=5619) [address] [facility] [address] CBC W/PLT COUNT & AUTO [id number] 08:02:00 Test Item Value Reference Range Comments WHITE BLOOD CELL COUNT (BEAKER) (test dugc=867) 6.6 K/ L 3.5-10.5 RED BLOOD CELL COUNT (BEAKER) (test vpsx=799) 3.97 M/ L 3.93-5.22 HEMOGLOBIN (BEAKER) (test iune=971) 11.2 GM/DL 11.2-15.7 HEMATOCRIT (BEAKER) (test xdjs=179) 33.2 % 34.1-44.9 MEAN CORPUSCULAR VOLUME (BEAKER) (test swow=726) 83.6 fL 79.4-94.8 MEAN CORPUSCULAR HEMOGLOBIN (BEAKER) (test 28.2 pg 25.6-32.2 tsdk=636) MEAN CORPUSCULAR HEMOGLOBIN CONC (BEAKER) (test 33.7 GM/DL 32.2-35.5 dbue=560) RED CELL DISTRIBUTION WIDTH (BEAKER) (test 12.7 % 11.7-14.4 asly=187) PLATELET COUNT (BEAKER) (test ardb=122) 231 K/CU MM 150-450 MEAN PLATELET VOLUME (BEAKER) (test lvhx=890) 9.5 fL 9.4-12.3 NUCLEATED RED BLOOD CELLS (BEAKER) (test 0 /100 WBC 0-0 aait=006) NEUTROPHILS RELATIVE PERCENT (BEAKER) (test 33 % gswa=970) LYMPHOCYTES RELATIVE PERCENT (BEAKER) (test 58 % vvch=346) MONOCYTES RELATIVE PERCENT (BEAKER) (test 6 % dhgh=632) EOSINOPHILS RELATIVE PERCENT (BEAKER) (test 2 % qzlo=791) BASOPHILS RELATIVE PERCENT (BEAKER) (test 1 % deey=275) NEUTROPHILS ABSOLUTE COUNT (BEAKER) (test 2.20 K/ L 1.56-6.13 boli=680) LYMPHOCYTES ABSOLUTE COUNT (BEAKER) (test 3.84 K/ L 1.18-3.74 zteu=466) MONOCYTES ABSOLUTE COUNT (BEAKER) (test 0.37 K/ L 0.24-0.36 fayn=030) EOSINOPHILS ABSOLUTE COUNT (BEAKER) (test 0.13 K/ L 0.04-0.36 oect=811) BASOPHILS ABSOLUTE COUNT (BEAKER) (test 0.04 K/ L 0.01-0.08 xgfr=553) IMMATURE GRANULOCYTES-RELATIVE PERCENT (BEAKER) 0 % 0-1 (test uhms=5693) POCT-GLUCOSE [id number] 06:58:00 Test Item Value Reference Range Comments POC-GLUCOSE METER (BEAKER) 95 mg/dL 70-110 TESTED AT [address] (test gakg=7397) [place] [id number] POCT-GLUCOSE [id number] 06:17:00 Test Item Value Reference Range Comments POC-GLUCOSE METER (BEAKER) 150 mg/dL 70-110 TESTED AT [address] (test gzww=6369) [place] [id number] POCT-GLUCOSE [id number] 05:18:00 Test Item Value Reference Range Comments POC-GLUCOSE METER (BEAKER) 101 mg/dL 70-110 TESTED AT [address] (test jsis=3338) [place] [id number] POCT-GLUCOSE [id number] 05:07:00 Test Item Value Reference Range Comments POC-GLUCOSE METER (BEAKER) 119 mg/dL 70-110 TESTED AT [address] (test wgvg=4768) [place] [id number] BASIC METABOLIC [id number] 04:52:00 Test Item Value Reference Range Comments SODIUM (BEAKER) (test 140 meq/L 136-145 aeha=037) POTASSIUM (BEAKER) (test 3.8 meq/L 3.5-5.1 tirh=151) CHLORIDE (BEAKER) (test 109 meq/L 98-107 hqmi=529) CO2 (BEAKER) (test 21 meq/L 22-29 gsda=371) BLOOD UREA NITROGEN 7 mg/dL 7-21 (BEAKER) (test vdet=103) CREATININE (BEAKER) (test 0.70 mg/dL 0.57-1.25 xskl=947) GLUCOSE RANDOM (BEAKER) 208 mg/dL 70-105 (test ivxi=427) CALCIUM (BEAKER) (test 8.4 mg/dL 8.4-10.2 wfgf=002) EGFR (BEAKER) (test 108 mL/min/1.73 sq m ESTIMATED GFR IS NOT hdav=7456) ACCURATE CREATININE CLEARANCE IN PREDICTING GLOMERULAR FILTRATION RATE. ESTIMATED GFR IS NOT APPLICABLE FOR DIALYSIS PATIENTS. POCT-GLUCOSE [id number] 04:05:00 Test Item Value Reference Range Comments POC-GLUCOSE METER (BEAKER) 48 mg/dL 70-110 TESTED AT [address] (test uczv=7443) [place] [id number] POCT-GLUCOSE [id number] 02:30:00 Test Item Value Reference Range Comments POC-GLUCOSE METER (BEAKER) 181 mg/dL 70-110 TESTED AT [address] (test kbqj=7238) [place] [id number] POCT-GLUCOSE [id number] 02:10:00 Test Item Value Reference Range Comments POC-GLUCOSE METER (BEAKER) 37 mg/dL 70-110 Will Repeat Test/TESTED AT (test ghce=9331) [address] [address] POCT-GLUCOSE [id number] 01:07:00 Test Item Value Reference Range Comments POC-GLUCOSE METER (BEAKER) 87 mg/dL 70-110 TESTED AT [address] (test jevm=0963) [facility] [address] BASIC METABOLIC [id number] 00:44:00 Test Item Value Reference Range Comments SODIUM (BEAKER) (test 142 meq/L 136-145 hlco=462) POTASSIUM (BEAKER) (test 3.6 meq/L 3.5-5.1 gdjb=143) CHLORIDE (BEAKER) (test 112 meq/L 98-107 ttth=884) CO2 (BEAKER) (test 22 meq/L 22-29 pbqt=468) BLOOD UREA NITROGEN 8 mg/dL 7-21 (BEAKER) (test egdb=059) CREATININE (BEAKER) (test 0.83 mg/dL 0.57-1.25 ihum=072) GLUCOSE RANDOM (BEAKER) 109 mg/dL 70-105 (test uwse=288) CALCIUM (BEAKER) (test 8.6 mg/dL 8.4-10.2 udny=109) EGFR (BEAKER) (test 89 mL/min/1.73 sq m ESTIMATED GFR IS NOT vzjd=8783) ACCURATE CREATININE CLEARANCE IN PREDICTING GLOMERULAR FILTRATION RATE. ESTIMATED GFR IS NOT APPLICABLE FOR DIALYSIS PATIENTS. POCT-GLUCOSE [id number] 00:30:00 Test Item Value Reference Range Comments POC-GLUCOSE METER (BEAKER) 96 mg/dL 70-110 TESTED AT [address] (test ruon=0049) [place] [id number] POCT-GLUCOSE [id number] 23:54:00 Test Item Value Reference Range Comments POC-GLUCOSE METER (BEAKER) 91 mg/dL 70-110 TESTED AT [address] (test cfku=1860) [place] [id number] POCT-GLUCOSE [id number] 23:12:00 Test Item Value Reference Range Comments POC-GLUCOSE METER (BEAKER) 48 mg/dL 70-110 TESTED AT [address] (test jkqn=9290) [place] [id number] POCT-GLUCOSE [id number] 21:58:00 Test Item Value Reference Range Comments POC-GLUCOSE METER (BEAKER) 94 mg/dL 70-110 TESTED AT [address] (test qghl=0702) [facility] [address] BASIC METABOLIC [id number] 21:08:00 Test Item Value Reference Range Comments SODIUM (BEAKER) (test 137 meq/L 136-145 abyg=272) POTASSIUM (BEAKER) (test 3.6 meq/L 3.5-5.1 gepn=221) CHLORIDE (BEAKER) (test 109 meq/L 98-107 lvhx=426) CO2 (BEAKER) (test 18 meq/L 22-29 yycm=927) BLOOD UREA NITROGEN 6 mg/dL 7-21 (BEAKER) (test bfyv=861) CREATININE (BEAKER) (test 0.93 mg/dL 0.57-1.25 fjuz=053) GLUCOSE RANDOM (BEAKER) 200 mg/dL 70-105 (test uztp=464) CALCIUM (BEAKER) (test 7.8 mg/dL 8.4-10.2 cswx=108) EGFR (BEAKER) (test 78 mL/min/1.73 sq m ESTIMATED GFR IS NOT esrq=4486) ACCURATE CREATININE CLEARANCE IN PREDICTING GLOMERULAR FILTRATION RATE. ESTIMATED GFR IS NOT APPLICABLE FOR DIALYSIS PATIENTS. POCT-GLUCOSE [id number] 20:57:00 Test Item Value Reference Range Comments POC-GLUCOSE METER (BEAKER) 165 mg/dL 70-110 TESTED AT [facility] [address] [facility] (test bpfw=1502) [place] [address] [id number] 20:55:00 Test Item Value Reference Range Comments POTASSIUM (BEAKER) (test jkpc=972) 3.6 meq/L 3.5-5.1 URINALYSIS W/ [id number] 20:40:00 Test Item Value Reference Range Comments COLOR (BEAKER) (test fwbx=824) Light Yellow CLARITY (BEAKER) (test fnvu=817) Clear SPECIFIC GRAVITY UA (BEAKER) (test jjel=614) 1.009 1.001-1.035 PH UA (BEAKER) (test yotk=807) 5.5 5.0-8.0 PROTEIN UA (BEAKER) (test utjx=028) Negative Negative GLUCOSE UA (BEAKER) (test lguw=199) >1000 mg/dL Negative KETONES UA (BEAKER) (test gwqp=173) 60 mg/dL Negative BILIRUBIN UA (BEAKER) (test pagu=747) Negative Negative BLOOD UA (BEAKER) (test zumg=042) Moderate Negative NITRITE UA (BEAKER) (test bzry=302) Negative Negative LEUKOCYTE ESTERASE UA (BEAKER) (test vace=814) Negative Negative UROBILINOGEN UA (BEAKER) (test efrj=258) 0.2 mg/dL 0.2-1.0 RBC UA (BEAKER) (test wxyw=209) 0 /HPF WBC UA (BEAKER) (test ulvc=058) 1 /HPF SQUAMOUS EPITHELIAL (BEAKER) (test orkb=251) 2 /HPF SOURCE(BEAKER) (test txqj=4846) POCT-GLUCOSE [id number] 19:59:00 Test Item Value Reference Range Comments POC-GLUCOSE METER (BEAKER) 282 mg/dL 70-110 TESTED AT [place] [id number] [facility] (test mntd=3401) [place] [id number] POCT-GLUCOSE [id number] 19:02:00 Test Item Value Reference Range Comments POC-GLUCOSE METER (BEAKER) 374 mg/dL 70-110 Notified VI DAVIS/TESTED AT [facility] (test erwv=1801) [address] [facility] [address] CBC W/PLT COUNT & AUTO [id number] 18:56:00 Test Item Value Reference Range Comments WHITE BLOOD CELL COUNT (BEAKER) (test kooq=884) 8.3 K/ L 3.5-10.5 RED BLOOD CELL COUNT (BEAKER) (test ahus=576) 4.18 M/ L 3.93-5.22 HEMOGLOBIN (BEAKER) (test cbno=811) 11.9 GM/DL 11.2-15.7 HEMATOCRIT (BEAKER) (test rlkk=334) 35.0 % 34.1-44.9 MEAN CORPUSCULAR VOLUME (BEAKER) (test yvvq=098) 83.7 fL 79.4-94.8 MEAN CORPUSCULAR HEMOGLOBIN (BEAKER) (test 28.5 pg 25.6-32.2 zull=905) MEAN CORPUSCULAR HEMOGLOBIN CONC (BEAKER) (test 34.0 GM/DL 32.2-35.5 nxen=181) RED CELL DISTRIBUTION WIDTH (BEAKER) (test 12.7 % 11.7-14.4 ucnh=146) PLATELET COUNT (BEAKER) (test tnzk=035) 307 K/CU MM 150-450 MEAN PLATELET VOLUME (BEAKER) (test hryh=143) 9.5 fL 9.4-12.3 NUCLEATED RED BLOOD CELLS (BEAKER) (test 0 /100 WBC 0-0 ikxo=911) NEUTROPHILS RELATIVE PERCENT (BEAKER) (test 42 % vwhj=983) LYMPHOCYTES RELATIVE PERCENT (BEAKER) (test 51 % ikkb=780) MONOCYTES RELATIVE PERCENT (BEAKER) (test 5 % tivw=837) EOSINOPHILS RELATIVE PERCENT (BEAKER) (test 1 % apzc=376) BASOPHILS RELATIVE PERCENT (BEAKER) (test 1 % budj=414) NEUTROPHILS ABSOLUTE COUNT (BEAKER) (test 3.52 K/ L 1.56-6.13 qryc=021) LYMPHOCYTES ABSOLUTE COUNT (BEAKER) (test 4.24 K/ L 1.18-3.74 stro=671) MONOCYTES ABSOLUTE COUNT (BEAKER) (test 0.39 K/ L 0.24-0.36 imjb=142) EOSINOPHILS ABSOLUTE COUNT (BEAKER) (test 0.09 K/ L 0.04-0.36 baum=234) BASOPHILS ABSOLUTE COUNT (BEAKER) (test 0.05 K/ L 0.01-0.08 cgsn=027) IMMATURE GRANULOCYTES-RELATIVE PERCENT (BEAKER) 0 % 0-1 (test stpn=7184) POCT-GLUCOSE [id number] 18:03:00 Test Item Value Reference Range Comments POC-GLUCOSE METER (BEAKER) 294 mg/dL 70-110 TESTED AT [facility] [address] [facility] (test ztwr=2606) [facility] [address] HEMOGLOBIN [id number] 17:45:00 Test Item Value Reference Range Comments HEMOGLOBIN A1C (BEAKER) (test sjqu=223) 12.6 % 4.3-6.1 RAD, CHEST, 1 VIEW, NON [id number] 17:20:00Reason for exam:->sobShould this be performed at [...] [place] Verified Date/Time: 04/07/2017 17:20:50 Reading Location: [address] Radiology Reading Room TSH/FREE T4 IF [id number] 17: 04:00 Test Item Value Reference Range Comments THYROID STIMULATING HORMONE (BEAKER) (test 0.95 uIU/mL 0.35-4.94 lzdx=923) TROPONIN [id number] 16:51:00 Test Item Value Reference Range Comments TROPONIN I (BEAKER) (test kvke=064) < ng/mL 0.00-0.03 Effective 06/20/2014: Reference Range [...] renalfailure, acidosis, acute neurological disease, and persistent tachyarrhythmia.[id number] 16:45:00 Test Item Value Reference Range Comments LIPASE (BEAKER) (test iwgw=473) 33 U/L 8-78 [id number] 16:45:00 Test Item Value Reference Range Comments AMYLASE (BEAKER) (test jexe=858) 66 U/L 25-125 BASIC METABOLIC [id number] 16:45:00 Test Item Value Reference Range Comments SODIUM (BEAKER) (test 139 meq/L 136-145 ovot=917) POTASSIUM (BEAKER) (test 3.8 meq/L 3.5-5.1 wyjb=150) CHLORIDE (BEAKER) (test 109 meq/L 98-107 arsj=773) CO2 (BEAKER) (test 23 meq/L 22-29 olor=770) BLOOD UREA NITROGEN 8 mg/dL 7-21 (BEAKER) (test lrkb=707) CREATININE (BEAKER) (test 0.72 mg/dL 0.57-1.25 izuf=486) GLUCOSE RANDOM (BEAKER) 125 mg/dL 70-105 (test shmu=280) CALCIUM (BEAKER) (test 8.4 mg/dL 8.4-10.2 qwdj=447) EGFR (BEAKER) (test 104 mL/min/1.73 sq m ESTIMATED GFR IS NOT oeek=5692) ACCURATE CREATININE CLEARANCE IN PREDICTING GLOMERULAR FILTRATION RATE. ESTIMATED GFR IS NOT APPLICABLE FOR DIALYSIS PATIENTS. LACTIC ACID, VENOUS, WHOLE [id number] 16:45:00 Test Item Value Reference Range Comments LACTATE BLOOD VENOUS (2) (BEAKER) (test 1.1 mmol/L 0.5-2.2 dtyt=4663) Effective 12/05/2015: Units/Reference Range ChangeNew: 0.5-2.2 mmol/L Previous: 5 -20 mg/dLKETONE, [id number] 16:41:00 Test Item Value Reference Range Comments KETONES, BLOOD (BEAKER) (test xibp=9735) 2.1 mmol/L <0.4 BLOOD GAS, [id number] 16:27:00 Test Item Value Reference Range Comments PH VENOUS (BEAKER) (test tcbr=586) 7.36 7.32-7.42 PCO2 VENOUS (BEAKER) (test rerx=751) 41 mmHg 41-51 PO2 VENOUS (BEAKER) (test dyca=845) 18 mmHg 25-40 O2 SATURATION VENOUS (BEAKER) (test nfjd=966) 26.4 % 40.0-70.0 HCO3 VENOUS (BEAKER) (test vgbi=996) 23 mmol/L 21-29 BASE EXCESS VENOUS (BEAKER) (test yyye=393) -2.5 mmol/L -2.0-3.0 PATIENT TEMPERATURE (BEAKER) (test okrx=5675) 37.0 C POCT-GLUCOSE [id number] 16:20:00 Test Item Value Reference Range Comments POC-GLUCOSE METER (BEAKER) 156 mg/dL 70-110 TESTED AT [address] (test ihfo=9914) [place] [address] POCT-GLUCOSE [id number] 15:28:00 Test Item Value Reference Range Comments POC-GLUCOSE METER (BEAKER) 101 mg/dL 70-110 TESTED AT [address] (test uluw=9217) [place] [address]
[2019-10-03] MEDS ORDERED: MORPHINE 4 MG/ML SYR ONE (12:33)
[2019-10-03] MEDS ORDERED: ONDANSETRON 4 MG/2 ML VIAL ONE ×2 (12:34→14:01)
[2019-10-03] MEDS ORDERED: NA CHLORIDE 0.9% 1,000 ML ONE ×2 (12:34→14:01)
--- NOTE | 2019-10-03 12:42 | RAD REPORT ---
EXAM DESCRIPTION: CT - Head Brain Wo Cont - 10/03/2019 12:32 pm CLINICAL HISTORY: HEADACHE Headache, drowsiness COMPARISON: No comparisons TECHNIQUE: All CT scans are performed using dose optimization technique as appropriate and may inclu de automated exposure control or mA/KV adjustment according to patient size. FINDINGS: No intracranial hemorrhage, hydrocephalus or extra-axial fluid collection.No areas of brai n edema or evidence of midline shift. The paranasal sinuses and mastoids are clear. The calvarium is intact. IMPRESSION: No acute intracranial abnormality.
[2019-10-03 13:01] LABS: Absolute Lymphocytes (CBC) 1.9 K/uL (0.7-4.9); Basophils % 0.6 % (0-1.3); Hematocrit 40.2 % (36.0-45.0); Lymphocytes % 19.4 % (15.3-44.8); MPV 8.1 fL (7.6-11.3); RBC Red Blood Cell Count 4.87 M/uL (3.86-4.86)
[2019-10-03 13:20] LABS: ALT/SGPT 14 U/L (12-78); AST/SGOT 12 U/L (15-37); Albumin 3.6 g/dL (3.4-5.0); Alkaline Phosphatase 94 U/L (45-117); BUN Blood Urea Nitrogen 12 mg/dL (7-18); Bicarbonate 25 mmol/L (21-32); Bilirubin Direct 0.1 mg/dL (0-0.2); Bilirubin Total 0.3 mg/dL (0.2-1.0); Glucose Level 78 mg/dL (74-106); Lipase 90 U/L (73-393); Potassium 3.7 mmol/L (3.5-5.1); Protein, Total 7.6 g/dL (6.4-8.2); Sodium Level 140 mmol/L (136-145)
[2019-10-03 13:22] LABS: Urine Blood NEGATIVE (NEG); Urine Glucose 2+ (NEG); Urine Protein NEGATIVE (NEG); Urine pH 7.5 (5.0-7.0)
[2019-10-03] MEDS ORDERED: D50W 25 GM/50 ML SYRINGE/VIAL IV ONE (14:01)
[2019-10-03] MEDS ORDERED: KETOROLAC 30 MG/ML INJ ONE (14:01)
--- NOTE | 2019-10-03 14:42 | RAD REPORT ---
EXAM DESCRIPTION: CT - Head angio - 10/03/2019 2:25 pm CLINICAL HISTORY: HEADACHE COMPARISON: Head Brain Wo Cont dated 10/03/2019 TECHNIQUE: CT angiography of the head was performed with MIPs. All CT scans are performed using dose optimization technique as appropriate and may include automated exposure control or mA/KV adjustment according to patient size. FINDINGS: No evidence of aneurysm is detected. No flow-limiting stenosis or vascular malformation id entified. Antegrade flow is seen in the vertebral arteries. The vertebral arteries are codominant. The visualized dural venous sinuses are patent. IMPRESSION: No significant flow abnormality is detected.
--- NOTE | 2019-10-03 15:00 | EDPHYS ---
Physician Documentation [facility] Name: Salome Santacruz Age: 19 yrs Sex: Female : 2000 Arrival Date: 10/03/2019 Time: 12:11 Bed 5 Private MD: ED Physician Dre Rice HPI: 10/02 12:23 This 19 yrs old Female presents to ER via EMS with complaints of Abdominal rajan Pain. 12:23 The patient complains of pain to the top of head, forehead, left frontal area, left rajan side of the back of head, left temporal area, left occipital area, left base of the skull, right frontal area, right side of the back of head, right occipital area and right base of the skull. Onset: The symptoms/episode began/occurred this morning. The patient presents with abdominal pain in the upper abdomen, in the lower abdomen, abdominal distention in the upper abdomen, in the lower abdomen. Onset: The symptoms/episode began/occurred 1 day(s) ago. The patient presents to the emergency department with nausea, vomiting, abdominal pain, of the right upper quadrant, left upper quadrant, right lower quadrant and left lower quadrant. Onset: The symptoms/episode began/occurred this morning. Historical: - Allergies: 12:13 Latex, Natural Rubber; bp 12:13 Midol; bp 12:13 Phenergan; bp 12:13 raw onions; bp - Home Meds: 12:13 Humalog 100 unit/mL Sub-Q soln 20 unit before meals [Active]; Levemir FlexTouch 100 bp unit/mL (3 mL) subcutaneous inpn [Active]; novolin 70/30 [Active]; - PMHx: 12:13 Anxiety; Depression; Diabetes - IDDM; bp - Immunization history:: Adult Immunizations up to date. - Social history:: Smoking status: unknown. - Family history:: not pertinent. ROS: 12:23 Constitutional: Negative for fever, chills, and weight loss, Eyes: Negative for injury, rajan pain, redness, and discharge, ENT: Negative for injury, pain, and discharge, Neck: Negative for injury, pain, and swelling, Cardiovascular: Negative for chest pain, palpitations, and edema, Respiratory: Negative for shortness of breath, cough, wheezing, and pleuritic chest pain, Back: Negative for injury and pain, : Negative for injury, bleeding, discharge, and swelling, MS/Extremity: Negative for injury and deformity, Skin: Negative for injury, rash, and discoloration. 12:23 Abdomen/GI: Positive for abdominal pain, nausea and vomiting. 12:23 Neuro: Positive for headache. Exam: 12:23 Head/Face: Normocephalic, atraumatic. Eyes: Pupils equal round and reactive to light, rajan extra-ocular motions intact. Lids and lashes normal. Conjunctiva and sclera are non-icteric and not injected. Cornea within normal limits. Periorbital areas with no swelling, redness, or edema. ENT: Nares patent. No nasal discharge, no septal abnormalities noted. Tympanic membranes are normal and external auditory canals are clear. Oropharynx with no redness, swelling, or masses, exudates, or evidence of obstruction, uvula midline. Mucous membranes moist. Neck: Trachea midline, no thyromegaly or masses palpated, and no cervical lymphadenopathy. Supple, full range of motion without nuchal rigidity, or vertebral point tenderness. No Meningismus. Chest/axilla: Normal chest wall appearance and motion. Nontender with no deformity. No lesions are appreciated. Cardiovascular: Regular rate and rhythm with a normal S1 and S2. No gallops, murmurs, or rubs. Normal PMI, no JVD. No pulse deficits. Respiratory: Lungs have equal breath sounds bilaterally, clear to auscultation and percussion. No rales, rhonchi or wheezes noted. No increased work of breathing, no retractions or nasal flaring. Abdomen/GI: Soft, non-tender, with normal bowel sounds. No distension or tympany. No guarding or rebound. No evidence of tenderness throughout. Back: No spinal tenderness. No costovertebral tenderness. Full range of motion. Skin: Warm, dry with normal turgor. Normal color with no rashes, no lesions, and no evidence of cellulitis. MS/ Extremity: Pulses equal, no cyanosis. Neurovascular intact. Full, normal range of motion. Neuro: Awake and alert, GCS 15, oriented to person, place, time, and situation. Cranial nerves II-XII grossly intact. Motor strength 5/5 in all extremities. Sensory grossly intact. Cerebellar exam normal. Normal gait. Psych: Awake, alert, with orientation to person, place and time. Behavior, mood, and affect are within normal limits. 12:23 Constitutional: The patient appears in obvious distress, moderately distressed. 13:48 Neck: ROM/movement: is normal, no acute changes, pain, is not appreciated, Meningeal rajan signs: are not present, Kernig's sign is negative, Brudzinski's sign is negative, nuchal rigidity, is not appreciated. Vital Signs: 12:12 BP 110 / 70; Pulse 100; Resp 18; Temp 97.7; Pulse Ox 98% ; Weight 63.5 kg; bp 13:06 BP 109 / 74; Pulse 93; Resp 16; Pulse Ox 100% ; bp 14:15 BP 110 / 69; Pulse 98; Resp 16; Pulse Ox 100% ; bp 15:55 BP 105 / 68; Pulse 100; Resp 15; Temp 97.8; Pulse Ox 100% ; bp MDM: 12:11 Patient medically screened. [facility] 12:25 Data reviewed: vital signs, nurses notes, lab test result(s), radiologic studies, CT rajan scan, plain films. 10/02 12:13 Order name: Basic Metabolic Panel; Complete Time: 13:30 [facility] 10/02 12:13 Order name: CBC with Diff; Complete Time: 13:30 [facility] 10/02 12:13 Order name: Creatinine for Radiology; Complete Time: 13:30 [facility] 10/02 12:13 Order name: Hepatic Function; Complete Time: 13:30 [facility] 10/02 12:13 Order name: Lipase; Complete Time: 13:30 [facility] 10/02 13:19 Order name: Urine Dipstick--Ancillary (enter results); Complete Time: 13:30 10/02 12:21 Order name: CT Head Brain wo Cont; Complete Time: 13:30 [facility] 10/02 13:19 Order name: Urine --Ancillary (enter results); Complete Time: 13:30 10/02 13:43 Order name: CT Head Angio; Complete Time: 14:58 rajan 10/02 13:57 Order name: Glucose, Ancillary Testing; Complete Time: 14:58 EDMS 10/02 12:13 Order name: IV Saline Lock; Complete Time: 12:55 [facility] 10/02 12:13 Order name: Labs collected and sent; Complete Time: 12:55 [facility] 10/02 12:13 Order name: Urine Dipstick-Ancillary (obtain specimen); Complete Time: 13:06 [facility] 10/02 12:13 Order name: Urine Test (obtain specimen); Complete Time: 13:06 [facility] Administered Medications: 12:45 Drug: NS 0.9% 1000 ml Route: IV; Rate: 1 bolus; Site: right forearm; bp 12:45 Drug: Zofran (Ondansetron) 4 mg Route: IVP; Site: right forearm; bp 13:09 Follow up: Response: Nausea is decreased bp 12:45 Drug: morphine 4 mg Route: IVP; Site: right forearm; bp 13:09 Follow up: Response: Pain is decreased bp 14:00 Drug: NS 0.9% 1000 ml Route: IV; Rate: 1 bolus; Site: right forearm; bp 15:59 Follow up: IV Status: Completed infusion; IV Intake: 1000ml bp 14:00 Drug: Zofran (Ondansetron) 4 mg Route: IVP; Site: right forearm; bp 15:59 Follow up: Response: Nausea is decreased bp 14:00 Drug: TORadol 30 mg Route: IVP; Site: right forearm; bp 15:59 Follow up: Response: Pain is decreased bp 14:00 Drug: D50W 25 ml Route: IVP; Site: right forearm; bp 15:58 Follow up: Response: Blood sugar is elevated bp Disposition: 10/03/19 14:59 Discharged to Home. Impression: Headache, Abdominal tenderness, Vomiting, Type 1 diabetes mellitus. - Condition is Stable. - Discharge Instructions: Abdominal Pain, Adult, Type 1 Diabetes Mellitus, Diagnosis, Adult, General Headache Without Cause, Migraine Headache, Nausea and Vomiting, Adult, Nausea and Vomiting, Adult, Sbzi-ev-Msuv, Abdominal Pain, Adult, Pvso-id-Fbpq, Diabetes Mellitus and Food, General Headache Without Cause, Ubhj-ai-Bjwp, Type 1 Diabetes Mellitus, Self Care, Adult, Type 1 Diabetes Mellitus, Diagnosis, Adult, Nyld-nc-Dnyw, Type 1 Diabetes Mellitus, Self Care, Adult, Jetg-ye-Eftm. - Prescriptions for Fioricet with Codeine 50- 325-40-30 mg Oral capsule - take 1 capsule by ORAL route every 4 hours as needed not to exceed 6 capsules per 24hrs; 30 capsule. Zofran 4 mg Oral Tablet - take 1 tablet by ORAL route every 12 hours As needed; 20 tablet. - Work release form, Medication Reconciliation Form, Thank You Letter, Antibiotic Education, Prescription Opioid Use form. - Follow up: Private Physician; When: 2 - 3 days; Reason: Recheck today's complaints, Continuance of care, Re-evaluation by your physician. Follow up: Edgardo Purcell; When: 2 - 3 days; Reason: Recheck today's complaints, Continuance of care, Re-evaluation by your physician. - Problem is new. - Symptoms have improved. Signatures: Dispatcher [employer] EDMS Dre Rice MD MD cha Peltier, Brian, RN RN bp Corrections: (The following items were deleted from the chart) 16:15 14:59 10/03/2019 14:59 Discharged to Home. Impression: Headache; Abdominal tenderness; bp Vomiting; Type 1 diabetes mellitus. Condition is Stable. Discharge Instructions: Abdominal Pain, Adult, Type 1 Diabetes Mellitus, Diagnosis, Adult, General Headache Without Cause, Migraine Headache, Nausea and Vomiting, Adult, Nausea and Vomiting, Adult, Wdum-oi-Ityo, Abdominal Pain, Adult, Oexe-ts-Ogyh, Diabetes Mellitus and Food, General Headache Without Cause, Bteg-yk-Zsms, Type 1 Diabetes Mellitus, Self Care, Adult, Type 1 Diabetes Mellitus, Diagnosis, Adult, Gpui-he-Hnlm, Type 1 Diabetes Mellitus, Self Care, Adult, Otin-kz-Vshb. Prescriptions for Fioricet with Codeine 27-225-57-30 mg Oral capsule - take 1 capsule by ORAL route every 4 hours as needed not to exceed 6 capsules per 24hrs; 30 capsule, Zofran 4 mg Oral Tablet - take 1 tablet by ORAL route every 12 hours As needed; 20 tablet. and Forms are Medication Reconciliation Form, Thank You Letter, Antibiotic Education, Prescription Opioid Use. Follow up: Private Physician; When: 2 - 3 days; Reason: Recheck today's complaints, Continuance of care, Re-evaluation by your physician. Follow up: Edgardo Purcell; When: 2 - 3 days; Reason: Recheck today's complaints, Continuance of care, Re-evaluation by your physician. Problem is new. Symptoms have improved. rajan
--- NOTE | 2019-10-03 15:00 | ER ---
Nurse's Notes [facility] Name: Salome Santacruz Age: 19 yrs Sex: Female : 2000 Arrival Date: 10/03/2019 Time: 12:11 Bed 5 Private MD: Diagnosis: Headache;Abdominal tenderness;Vomiting;Type 1 diabetes mellitus Presentation: 10/02 12:12 Chief complaint: EMS states: LOWER ABDOMINAL PAIN WITH NAUSEA AND OSEGUERA. Coronavirus bp screen: The patient has NOT traveled to [place] in the past 14 days. The patient has NOT had contact with known and/or suspected case of Coronavirus. Proceed with normal triage procedures. Ebola Screen: No symptoms or risks identified at this time. Initial Sepsis Screen: Does the patient meet any 2 criteria? No. Patient's initial sepsis screen is negative. Does the patient have a suspected source of infection? No. Patient's initial sepsis screen is negative. Risk Assessment: Do you want to hurt yourself or someone else? Patient reports no desire to harm self or others. Care prior to arrival: Glucose check: 80. 12:12 Method Of Arrival: EMS: [facility] bp 12:12 Acuity: BRIAN 3 bp Triage Assessment: 12:13 General: Appears in no apparent distress. comfortable, Behavior is cooperative, bp appropriate for age, anxious. Pain: Complains of pain in right lower quadrant and left lower quadrant. EENT: No deficits noted. Neuro: No deficits noted. Cardiovascular: No deficits noted. Respiratory: No deficits noted. GI: Reports lower abdominal pain, nausea, vomiting. : No signs and/or symptoms were reported regarding the genitourinary system. Derm: No deficits noted. Musculoskeletal: No deficits noted. Historical: - Allergies: 12:13 Latex, Natural Rubber; bp 12:13 Midol; bp 12:13 Phenergan; bp 12:13 raw onions; bp - Home Meds: 12:13 Humalog 100 unit/mL Sub-Q soln 20 unit before meals [Active]; Levemir FlexTouch 100 bp unit/mL (3 mL) subcutaneous inpn [Active]; novolin 70/30 [Active]; - PMHx: 12:13 Anxiety; Depression; Diabetes - IDDM; bp - Immunization history:: Adult Immunizations up to date. - Social history:: Smoking status: unknown. - Family history:: not pertinent. Screenin:15 Abuse screen: Denies threats or abuse. Denies injuries from another. Nutritional bp screening: No deficits noted. Tuberculosis screening: No symptoms or risk factors identified. Fall Risk None identified. Assessment: 12:15 General: SEE TRIAGE NOTE. bp 14:16 Reassessment: NEW PIV PLACED FOR CTA. CT CONTACTED. bp 15:55 Reassessment: D/C ON HOLD FOR MD RE-EVBERE. bp 16:14 Reassessment: PT D/C HOME AMBULATORY WITH FAMILY, DX WITH HEADACHE AND ABDOMINAL bp TENDERNESS. Vital Signs: 12:12 BP 110 / 70; Pulse 100; Resp 18; Temp 97.7; Pulse Ox 98% ; Weight 63.5 kg; bp 13:06 BP 109 / 74; Pulse 93; Resp 16; Pulse Ox 100% ; bp 14:15 BP 110 / 69; Pulse 98; Resp 16; Pulse Ox 100% ; bp 15:55 BP 105 / 68; Pulse 100; Resp 15; Temp 97.8; Pulse Ox 100% ; bp ED Course: 12:11 Patient arrived in ED. bp 12:11 Dre Rice MD is Attending Physician. rajan 12:13 Triage completed. bp 12:13 Arm band placed on. bp 12:15 Patient has correct armband on for positive identification. Bed in low position. Call bp light in reach. Side rails up X2. 12:16 Joshua Lew, RN is Primary Nurse. bp 12:34 CT Head Brain wo Cont In Process Unspecified. EDMS 12:45 Inserted saline lock: 22 gauge in right forearm, using aseptic technique. Blood bp collected. 14:15 Inserted saline lock: 22 gauge in left antecubital area, using aseptic technique. bp 14:15 Inserted saline lock: 22 gauge in left antecubital area, using aseptic technique. dh3 14:25 CT Head Angio In Process Unspecified. EDMS 14:59 Edgardo Purcell MD is Referral Physician. rajan 16:14 No provider procedures requiring assistance completed. IV discontinued, intact, bp bleeding controlled, No redness/swelling at site. Pressure dressing applied. Administered Medications: 12:45 Drug: NS 0.9% 1000 ml Route: IV; Rate: 1 bolus; Site: right forearm; bp 12:45 Drug: Zofran (Ondansetron) 4 mg Route: IVP; Site: right forearm; bp 13:09 Follow up: Response: Nausea is decreased bp 12:45 Drug: morphine 4 mg Route: IVP; Site: right forearm; bp 13:09 Follow up: Response: Pain is decreased bp 14:00 Drug: NS 0.9% 1000 ml Route: IV; Rate: 1 bolus; Site: right forearm; bp 15:59 Follow up: IV Status: Completed infusion; IV Intake: 1000ml bp 14:00 Drug: Zofran (Ondansetron) 4 mg Route: IVP; Site: right forearm; bp 15:59 Follow up: Response: Nausea is decreased bp 14:00 Drug: TORadol 30 mg Route: IVP; Site: right forearm; bp 15:59 Follow up: Response: Pain is decreased bp 14:00 Drug: D50W 25 ml Route: IVP; Site: right forearm; bp 15:58 Follow up: Response: Blood sugar is elevated bp Intake: 15:59 IV: 1000ml; Total: 1000ml. bp Outcome: 14:59 Discharge ordered by MD. tolentino 16:14 Discharged to home ambulatory, with family. bp 16:14 Condition: stable 16:14 Discharge instructions given to patient, Instructed on discharge instructions, follow up and referral plans. medication usage, Demonstrated understanding of instructions, follow-up care, medications, Prescriptions given X 2. 16:15 Patient left the ED. bp Signatures: Dispatcher [employer] Dre Rock MD MD cha Herrera, Deanna [facility] Joshua Lew, RN RN bp
[2019-10-03 16:42] VITALS: O2SAT 100
[2019-10-03 16:44] VITALS: BP 105/68; TEMP 97.8
== END 2019-10-03 16:15 | disposition home or self-care (01) ==
LOC: ER 12:18
DX: R10.819 Abdominal tenderness, unspecified site (principal); R11.10 Vomiting, unspecified; E10.9 Type 1 diabetes mellitus without complications; F34.1 Dysthymic disorder; Z79.4 Long term (current) use of insulin; Z88.6 Allergy status to analgesic agent; Z88.8 Allergy status to other drugs, medicaments and biological substances; Z91.018 Allergy to other foods; Z91.040 Latex allergy status
CPT/HCPCS: 36415; 70450; 70496; 80048; 80076; 81003; 81025; 82947; 83690; 85025; 96361; 96374; 96375; 99284; J2405; J7030; Q9967

== ENCOUNTER 2020-05-19 15:25 | Emergency (ER) | payer OTHER, SELFPAY ==
--- OUTSIDE RECORDS SUMMARY | 2020-05-19 15:27 | XMS REPORT | Clinical Summary ---
:2000 Author Organization [facility] Address [address] [place] [address] Care Team Providers Name Role Phone Tanvi Xiong MD Primary Care Provider Unavailable Allergies Active Allergy Reactions Severity Noted Date Comments Latex Rash Low 04/07/2017 Acetaminophen-Pamabrom Rash Low 04/07/2017 Bumps in mouth Onion Hives 05/18/2017 Promethazine Anxiety Low 04/07/2017 Severe anxiety attacks Tree Nut 06/17/2017 Medications Medication Sig Dispensed Refills Start End Date Status Date insulin regular (HUMULIN If FI=124-920, give 1unit 10 mL 3 Active R,NOVOLIN R) 100 unit/mL If OJ=961-851, give 2units 7 injection If MK=703-506, give 4units If QA=103-470, give 6units If UE=753-925, give 8units. medroxyPROGESTERone Inject 150 mg 0 Active (DEPO-PROVERA) 150 mg/mL intramuscularly injectionIndications: every 3 (three) contraception months. sertraline (ZOLOFT) 50 Take 50 mg by mouth 0 Active MG tabletIndications: daily. anxiety with depression traZODone (DESYREL) 50 Take 50 mg by [...] Date Diabetic ketoacidosis without coma associated with nikki betes mellitus due 06/17/2017 to underlying condition Diabetic ketoacidosis without coma associated with typ e 1 diabetes 05/18/2017 mellitus DKA, type 1 04/07/2017 Nausea 04/07/2017 Immunizations Name Administration Dates Next Due Influenza Three-TIV PF 5+ YR 05/18/2017 Social History Tobacco Use Types Packs/Day Years Used Date Former Smoker Quit: 06/18/20 16 Smokeless Tobacco: Never Used Alcohol Use Drinks/Week oz/Week Comments No Sex Assigned at Date Recorded Not on file Last Filed Vital Signs Not on file Plan of Treatment Not on file Results Not on fileafter 05/19/2019 Insurance Payer Benefit Plan / Subscriber ID Effective Dates Phone Addre ss Type Group OTHER-[employer] [id number] 2017-Present L Advance Directives For more information, please contact: [phone] Code Status Date Activated Date Inactivated Comments Full Code 06/17/2017 10:54 AM 06/19/2017 2:40 PM This code status was determined by: Patient Full Code 05/18/2017 7:25 AM 05/19/2017 7:18 PM This code status was determined by: Patient Full Code 04/07/2017 3:28 PM 04/09/2017 7:53 PM This code status was determined by: Patient
--- OUTSIDE RECORDS SUMMARY | 2020-05-19 15:27 | XMS REPORT | Summary of Care ---
:2000 Author Organization [facility] Address [address] [place] [id number] Care Team Providers Name Role Phone Pcp, Patient Does Not Have A Primary Care Provider +[id number] Reason for Referral (Routine) Status Reason Specialty Diagnoses / Referred By Referred To Procedures Contact Contact New Request OB-GYNECOLOGY Diagnoses Type 1 diabetes mellitus without complication Early stage of Marilee Kimball, Procedures Discharge Follow-Up: Specialty Service OB-GYNECOLOGY; 1 Week [employer] [address] [facility] [id number] [place] [address] Reason for Visit Reason Comments Headache 8 wks Neck Pain Auth/Cert Status Reason Specialty Diagnoses / Referred By Referred To Procedures Contact Contact Emergency Medicine Adc Em ergency Dept [address] [place] [address] Fax: Encounter Details Date Type Department Care Team Description 04/06/2020 Emergency ADC-Emergency Marilee Kimball, Nonintrac table headache, unspecified chronicity pattern, unspecified headache type (Primary Dx); 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 Type 1 nikki betes mellitus without complication; Drive [id number] Early stage of ; [place], [place] [id number] [place] [address] Nausea [phone] [phone] Allergies Active Allergy Reactions Severity Noted Date Comments Latex Rash 01/30/2016 Midol (Ibuprofen) Other - See comments Medium 09/09/2013 Pt reported that her mouth gets "itchy and swollen" when she takes Midol and Midol Teen. Dr. Guo notified. Sister insists that pt is only allergic t o Midol, NOT ibuprofen. Onion Hives Medium 12/02/2016 Promethazine Hcl Other - See comments 01/30/2016 Anx iety and chest pressure documented as of this encounter (statuses as of 04/06/2020) Medications Medication Sig Dispensed Refills Start Date End Date Status Blood-Glucose Meter To be used with 1 Each 1 03/16/2013 Active (PRECISION XTRA) blood ketone MiscIndications: strips. Type I (juvenile type) diabetes mellitus without mention of complication, uncontrolled glucagon (GLUCAGON 1 mg by 2 mg 0 07/24/2014 Active EMERGENCY) 1 mg Intramuscular route injectionIndications as needed (For : Type I (juvenile severe type) diabetes hypoglycemia). mellitus without mention of complication, uncontrolled, Vaccination reaction, initial encounter blood sugar 6 (six) times 200 Strip 12 07/24/2014 Act jose diagnostic daily. (FREESTYLE LITE STRIPS) stripIndications: Type I (juvenile [...] SQ per carb dosing injectorIndications: Indications: sliding scale sliding scale ibuprofen 800 mg Take 1 tablet by 20 tablet 0 01/10/2020 Active tabletIndications: mouth every 8 Abdominal pain, (eight) hours as unspecified needed for Pain abdominal location, (scale 4-6). Right ovarian cyst, Right lower quadrant pain acetaminophen-codein Take 1 tablet by 12 tablet 0 01/10/2020 Active e 300-30 mg mouth every 6 (six) tabletIndications: hours as needed for Abdominal pain, Pain (scale 7-10). unspecified abdominal location, Right ovarian cyst, Right lower quadrant pain cephALEXin 500 mg Take 1 capsule by 28 capsule 0 04/06/2020 Active capsuleIndications: mouth 4 (four) 0 Urinary tract times daily for 7 infection without days. hematuria, site unspecified ondansetron (ZOFRAN Take 1 tablet by 12 tablet 0 04/06/2020 Active ODT) 4 mg mouth every 8 disintegrating (eight) hours as tabletIndications: needed for Nausea Nausea and Vomiting (N/V). documented as of this encounter (statuses as of 04/06/2020) Active Problems Problem Noted Date Syncope 12/10/2017 [...] D since age 1 on insulin pump- bas e rate: 7am-9pm 1.9U and 9pm-mid 1.6U; Mid-7 am 1.5 CHO 1 u. Along with sliding sca le. Depressive disorder 10/17/2012 Overview: wellbutrin 1 yr ago- self d/c. Attention deficit hyperactivity disorder (ADHD) 2012 Overview: ICD10 Diagnosis Term Burn Out Tender Lace Utility documented as of this encounter (statuses as of 04/06/2020) Resolved Problems Problem Noted Date Resolved Date Anemia of mother in , condition 02/28/20 16 11/14/2016 Status post primary low transverse section 02/03/20 16 02/28/2016 Liveborn by 02/03/2016 02/28/2016 01/30/2016 02/28/2016 36 weeks gestation of 01/29/2016 02/28/20 16 Uncontrolled blood glucose 01/29/2016 02/28/2016 Diabetes mellitus affecting in third trimester 02/28/2016 contractions, third trimester 01/14/2016 Overview: 01/10/2016 observation for ctx Cx = close GBS (group B Streptococcus carrier), +RV culture, currently 01/14/2016 02/28/2016 Overview: 01/08/2016 (+) heart deceleration 01/09/2016 02/28/2016 DM (diabetes mellitus) 12/04/2015 02/28/2016 Noncompliance 09/06/2015 02/28/2016 Pneumonia due to organism 01/23/2015 01/24/2016 UTI (lower urinary tract infection) 01/18/2015 02/0 11/2015 Recurrent UTI (urinary tract infection) complicating pregnan cy, 01/18/2015 02/28/2016 unspecified trimester Overview: 07/2015- Klebsiella 09/2015 and 10/2015- E coli x 2 culture- multidrug resistance (R- amp, cephalosporin, genti, bactrim; sen- macrobid) 01/2016- contam 01/10 on macrobid supp DKA, type 1 12/14/2013 09/06/2015 Hepatitis 12/14/2013 02/28/2016 Overview: S/p hepatitis A and B vaccination as chi ld Type 1 diabetes mellitus with ketoacidosis, uncontrolled 07/201209/06/2015 documented as of this encounter (statuses as of 04/06/2020) Immunizations Name Administration Dates Next Due DTAP 01/14/2005, 03/12/2004 HEPATITIS A 03/09/2006, 05/22/2005, 02/21/2000 HPV 01/24/2015 HPV9 07/14/2017, 04/14/2017 Hep B, Adol or Pedi Dosage 05/22/2005, 01/14/2005, 4 Influenza Virus Vaccine Quad IM 3+ YRS 09/07/2015 MMR 01/14/2005, 03/11/2004 Meningococcal Vaccine 06/06/2010 Pneumococcal 13 Conjugate, PCV13 07/20/2014 (Prevnar 13) Polio (IPV/OPV) 05/22/2005, 01/14/2005, 03/12/2004 TDAP 12/27/2015, 06/06/2010 TDAP (ADACEL) VACCINE 04/14/2017 Td 05/22/2005 Varicella (varivax)(chicken pox) 03/09/2008, 03/11/2004, , 08/08/1999 documented as of this encounter Social History Tobacco Use Types Packs/Day Years Used Date Former Smoker Cigarettes 04/14/2012 - 0 04/14/2015 Smokeless Tobacco: Never Used Alcohol Use Drinks/Week oz/Week Comments No 0 Standard drinks or equivalent 0.0 Sex Assigned at Date Recorded Not on file COVID-19 Exposure Response Date Recorded In the last month, have you been in contact with No / Unsure 04/06/2020 2:54 PM CDT someone who was confirmed or suspected to have Coronavirus / COVID-19? documented as of this encounter Last Filed Vital Signs Vital Sign Reading Time Taken Comments Blood Pressure 121/84 04/06/2020 3:01 PM CDT Pulse 97 04/06/2020 3:01 PM CDT Temperature 37.2 C (99 F) 04/06/2020 3:01 PM CDT Respiratory Rate 14 04/06/2020 3:01 PM CDT Oxygen Saturation 100% 04/06/2020 3:01 PM CDT Inhaled Oxygen Concentration - - Weight 61.7 kg (136 lb) 04/06/2020 3:01 PM CDT Height 162.6 cm (5' 4") 04/06/2020 3:01 PM CDT Body Mass Index 23.34 04/06/2020 3:01 PM CDT documented in this encounter Discharge Instructions Marilee Benítez NP - 04/06/2020Diagnosis: Early UTI Headache Nausea Prescriptions for zofran and keflex sent to [facility] [place] Referral for OB follow up sent Return to ED for acute worsening or any new concern documented in this encounter ED Notes Amara Cheung RN - 04/06/2020 3:00 PM CDTPatient states for the past few weeks she has been experiencing neck and head aches. Advises she is "maybe 8 weeks too". Complaining of associated nausea but no vomiting. documented in this encounter Plan of Treatment Name Type Priority Associated Diagnoses Order S chedule URINE CULTURE LAB Routine Nonintractable headache, ON CE for 1 Occurrences unspecified chronicity start ing 04/06/2020 until pattern, unspecified headach e 04/06/2020 type Health Maintenance Due Date Last Done Comments EYE EXAM 02/16/2008 MENINGOCOCCAL B VACCINES (1 02/16/2008 of 2 - Risk Bexsero 2-dose series) Depression Screening 2010 FOOT EXAM 02/16/2016 LDL-C 10/22/2017 10/22/2016, 12/16/2014 URINE MICROALBUMIN 10/22/2017 10/22/2016, 06/06/2014, 07/22/2012 CHLAMYDIA SCREENING 04/14/2018 04/14/2017, 09/20/2016, 03/14/2016, Additional history exists HgA1C 06/12/2018 12/10/2017, 10/08/2017, 12/02/2016, Additional history exists PAP SMEAR 2019 INFLUENZA VACCINE (#1) 2020 09/07/2015 CREATININE (SERUM) 01/09/2021 01/10/2020, 03/25/2019, 01/10/2019, Additional history exists DTaP,Tdap,and Td Vaccines (6 04/14/2027 04/14/2017, 016, - Td) 06/06/2010, Additional history exists MENINGOCOCCAL VACCINE Aged Out 06/06/2010 No longer eligible based on patient 's age to complete this topic PNEUMOCOCCAL 0-64 YEARS Aged Out 07/20/2014 No longe r eligible COMBINED SERIES based on patient 's age to complete this topic HPV VACCINES Completed 07/14/2017, 04/14/2017, 01/24/2015 documented as of this encounter Procedures Procedure Name Priority Date/Time Associated Diagnosis Comme nts POCT GLUCOSE Routine 04/06/2020 4:40 Results for this (AUTOMATED) PM CDT procedure are i n the results section. POCT GLUCOSE(AGE THIEN 04/06/2020 4:40 Nonintractable Resul ts for this 0-30DAYS) PM CDT headache, unspecified proced ure are in chronicity pattern, the resu lts unspecified headache section . type POCT TEST THIEN 04/06/2020 4:38 Nonintractable Re sults for this PM CDT headache, unspecified proced ure are in chronicity pattern, the resu lts unspecified headache section . type URINALYSIS STAT 04/06/2020 3:45 Nonintractable Results f or this PM CDT headache, unspecified proced ure are in chronicity pattern, the resu lts unspecified headache section . type CONSENT/REFUSAL FOR Routine 04/06/2020 2:54 DIAGNOSIS AND PM CDT TREATMENT documented in this encounter Results POCT GLUCOSE (AUTOMATED) (04/06/2020 4:40 PM CDT) Pathologist Sig nature POCT GLU 166 (H) 70 - 110 mg/dL [facility] Specimen Blood Performing Organization Address City/State/Zipcode Phone Number [facility] CLIA: [id number] [place] [address] POCT GLUCOSE(AGE 0-30DAYS) (04/06/2020 4:40 PM CDT) Pathologist Sig nature POCT Glu (age 0-30days) 166 (A) 40 - 110 mg/dl Specimen Blood - CAPILLARY POCT TEST (04/06/2020 4:38 PM CDT) Pathologist Sig nature POCT PREG positive On board controls acceptable present with C Line POCT PREG LOT # [id number] POCT PREG TEST DATE 2021-03-02 Specimen Urine - URINE, CLEAN CATCH Urinalysis (04/06/2020 3:45 PM CDT) Pathologist Sig [facility] APPEARANCE Hazy (A) Clear [facility] COLOR Yellow Yellow [facility] PH 6.0 4.8 - 8.0 [facility] SP GRAVITY 1.016 1.003 - 1.030 [facility] GLU U QUAL 150 mg/dL (A) Normal [facility] BLOOD Negative Negative [facility] KETONES 20 mg/dL (A) Negative [facility] PROTEIN Negative Negative [facility] UROBILIN Normal Normal [facility] BILIRUBIN Negative Negative [facility] NITRITE Positive (A) Negative [facility] LEUK MANN 250/uL (A) Negative [facility] RBC/HPF 3 0 - 3 HPF [facility] WBC/HPF 37 (H) 0 - 5 HPF [facility] BACTERIA Many (A) Negative [facility] MUCOUS Slight (A) Negative LPF [facility] SQ EPITH 1 [facility] Specimen Urine - URINE, CLEAN CATCH Performing Organization Address City/State/Zipcode Phone Number [facility] CLIA: [id number] [place] [address] documented in this encounter Visit Diagnoses Diagnosis Nonintractable headache, unspecified chr onicity pattern, unspecified headache type - Primary Urinary tract infection without hematuri a, site unspecified Type 1 diabetes mellitus without complic ation Type I (juvenile type) diabetes mellitus without mention of complication, not stated as uncontrolled Early stage of Nausea Nausea alone documented in this encounter Insurance Payer Benefit Plan / Subscriber ID Effective Phone Address T ype Group Dates MEDICAID MEDICAID PENDING 2020-[address] [place] [address] documented as of this encounter Advance Directives Type Date Recorded Patient Completion Manager Explanati on Advance Directives and Living Will Power of Community Theater Actor Name Relationship Healthcare Agent Communication Relationship Monet (call Sibling Health Care Agent [phone] first) Héctor (Mobile) Suleiman Forte Significant Other Health Care Agent Caleb Santacruz Mother [facility] Care Agent (Mobile)
--- OUTSIDE RECORDS SUMMARY | 2020-05-19 15:28 | XMS REPORT | Summary of Care ---
:2000 Author Organization [facility] - Health Address [address] [place] [address] Care Team Providers Name Role Phone PatrickjosueDavidEileen C [facility] Primary Care Provider [phone] Encounter Details Date Type Department Care Team Description 04/16/2020 Orders Only [facility] Doctor Unassigned, No [address] [facility] [place] [address] [address] [place] [address] Allergies Active Allergy Reactions Severity Noted Date [...] as of this encounter (statuses as of 04/16/2020) Medications Medication Sig Dispensed Refills Start Date End Date Status Blood-Glucose Meter To be used with 1 Each 1 03/16/2013 Active (PRECISION XTRA) blood ketone MiscIndications: Type strips. I (juvenile type) diabetes mellitus without mention of complication, uncontrolled glucagon (GLUCAGON 1 mg by 2 mg 0 07/24/2014 Active EMERGENCY) 1 mg Intramuscular route injectionIndications: as needed (For Type I (juvenile severe type) diabetes hypoglycemia). mellitus without mention of complication, uncontrolled, Vaccination reaction, initial encounter blood sugar 6 (six) times 200 Strip 12 07/24/2014 Act jose diagnostic (FREESTYLE daily. LITE STRIPS) stripIndications: Type I (juvenile type) diabetes mellitus without mention of complication, uncontrolled, Vaccination reaction, initial encounter SERTraline 50 mg Take 1 tablet by 90 tablet 1 11/12/2016 Active tabletIndications: mouth daily. Chronic depression, Chronic insomnia insulin degludec inject 40 Units 0 Active (TRESIBA FLEXTOUCH under the skin at U-100) 100 unit/mL (3 bedtime. mL) InPn hydrOXYzine 25 mg Take 25 [...] 8 Abdominal pain, (eight) hours as unspecified abdominal needed for Pain location, Right (scale 4-6). ovarian cyst, Right lower quadrant pain acetaminophen-codeine Take 1 tablet by 12 tablet 0 01/10/2020 Active 300-30 mg mouth every 6 (six) tabletIndications: hours as needed for Abdominal pain, Pain (scale 7-10). unspecified abdominal location, Right ovarian cyst, Right lower quadrant pain ondansetron (ZOFRAN Take 1 tablet by 12 tablet 0 04/06/2020 Active ODT) 4 mg mouth every 8 disintegrating (eight) hours as tabletIndications: needed for Nausea Nausea and Vomiting (N/V). documented as of this encounter (statuses as of 04/16/2020) Active Problems Problem Noted Date Syncope 12/10/2017 [...] disorder (ADHD) 2012 Overview: ICD10 Diagnosis Term Spreader Utility documented as of this encounter (statuses as of 04/16/2020) Resolved Problems Problem Noted Date Resolved Date [...] 01/24/2016 UTI (lower urinary tract infection) 01/18/2015 02/11/2015 Recurrent UTI (urinary tract infection) complicating pregnan [...] as of this encounter (statuses as of 04/16/2020) Immunizations Name Administration Dates Next Due DTAP [...] of this encounter Last Filed Vital Signs Not on filedocumented in this encounter Plan of Treatment Date Type Specialty Care Team Description 04/16/2020 Initial Visit [facility] Terrance Schulte, CNP [address] [address] [phone] Health Maintenance Due Date Last Done Comments [...] Name Priority Date/Time Associated Diagnosis Comme nts ASSIGNMENT OF BENEFITS Routine 04/16/2020 12:46 PM CDT documented in this encounter Results Not on filedocumented in this encounter Insurance Payer Benefit Plan / Subscriber ID Effective Phone Address T ype Group Dates MEDICAID MEDICAID PENDING 2020-[address] [place] [address] documented as of this encounter Advance Directives Type Date Recorded Patient Substance Abuse Technician Explanati on Advance Directives and Living Will Power of Cardiovascular Technician Name Relationship Healthcare Agent Communication Relationship Monet (call Sibling Health Care Agent [phone] first) Héctor (Mobile) Suleiman Forte Significant Other Health Care Agent Caleb Santacruz Mother First [facility] Care Agent (Mobile)
--- OUTSIDE RECORDS SUMMARY | 2020-05-19 15:28 | XMS REPORT | Summary of Care ---
:2000 Author Organization [facility] Address [address] [place] [address] Care Team Providers Name Role Phone Eileen Schulte [facility] Primary Care Provider Reason for Visit Reason Comments Referral/consult Encounter Details Date Type Department Care Team Description 04/20/2020 Telephone [facility]- Eileen Schulte, Referral/consult [facility] [address] [facility] [address] [place] [address] [facility] [phone] [place], [place] [address] [phone] Allergies Active Allergy Reactions Severity Noted Date Comments Cephalexin Hives 04/09/2020 Latex Rash 01/30/2016 Midol (Ibuprofen) Other - [...] as of this encounter (statuses as of 04/23/2020) Medications Medication Sig Dispensed Refills Start Date [...] needed for Nausea Nausea and Vomiting (N/V). insulin aspart inject 5 Units 0 Active prot/insuln asp under the skin. (NOVOLOG MIX 70-30 SC) insulin detemir inject 38 Units 0 Active (LEVEMIR U-100 under the skin. INSULIN SC) ondansetron HCl Take 4 mg base by 0 Active (ZOFRAN ORAL) mouth. doxylamine-pyridoxin Take 2 tablets by 120 tablet 1 04/16/2020 Active e, vit B6, mouth at bedtime. (DICLEGIS) 10-10 mg per tabletIndications: Nausea and vomiting during documented as of this encounter (statuses as of 04/23/2020) Active Problems Problem Noted Date Supervision of high-risk 04/16/2020 Multiparity 04/16/2020 History of section 04/16/2020 Overview: At [facility] in 2016 Dyspareunia, female 05/27/2017 Chronic insomnia 10/21/2016 Well woman exam 02/28/2016 DKA (diabetic ketoacidoses) 07/18/2014 Overview: Sep, 2015- admission for DKA and E coli UTI 09/2015, 10/2015, (neg 12/2015) Type 1 diabetes mellitus, uncontrolled 09/09/2013 Overview: Sliding scale novalog reports 5-10U Bedtime 38U Levemir at bedtime A1c 9.2 Depressive disorder 10/17/2012 Overview: wellbutrin 1 yr ago- self d/c. Attention deficit hyperactivity disorder (ADHD) 2012 Overview: ICD10 Diagnosis Term Government Operations Consultant Utility Estimated Date of Delivery Comments Yes 12/24/2020 Based on last menstr ual period of 03/19/2020 (Approximate) documented as of this encounter (statuses as of 04/23/2020) Resolved Problems Problem Noted Date Resolved Date Syncope 12/10/2017 04/16/2020 Other general counseling and advice for contraceptive 201604/16/2020 management Depo-Provera contraceptive status 04/14/20172019 New onset of headaches 11/14/2016 04/16/2020 Contraceptive management 03/14/2016 04/16/2020 Anemia of mother in , condition 02/28/20 [...] as of this encounter (statuses as of 04/23/2020) Immunizations Name Administration Dates Next Due DTAP [...] No 0 Standard drinks or equivalent 0.0 Estimated Date of Delivery Comments Yes 12/24/2020 Based on last menstr ual period of 03/19/2020 (Approximate) Sex Assigned at Date Recorded Not on file COVID-19 Exposure Response Date Recorded In the last month, have you been in contact with No / Unsure 04/16/2020 1:14 PM CDT someone who was confirmed or suspected to have Coronavirus / COVID-19? documented as of this encounter Last Filed Vital Signs Not on filedocumented in this encounter Miscellaneous Notes Telephone Encounter - Marie Melvin RN - 04/23/2020 1:45 PM CDTCalled patient, advised high risk mfm will manage her diabetes in . No need for a referral at this time. Patient verbalized understanding. MARIE MELVNI RN 04/23/2020 1:46 PM Telephone Encounter - Katelyn Henriquez - 04/20/2020 2:49 PM CDTEalberto Santacruz is a 20 year old female Patient requesting referral for Government Guard, please call patient [phone] (home) documented in this encounter Plan of Treatment Date Type Specialty Care Team Description 05/07/2020 Routine Visit [facility] Faculty, Harvey Rodriguezch p [facility] Health Maintenance Due Date Last Done Comments EYE EXAM 02/16/2008 FOOT EXAM 02/16/2016 HgA1C 10/14/2020 04/16/2020, 12/10/2017, 10/08/2017, Additional history exists CREATININE (SERUM) 01/09/2021 01/10/2020, 03/25/2019, 01/10/2019, Additional history exists INFLUENZA VACCINE (#1) 2021 09/07/2015 Postponed from 04/03/2020 (Vacc ine not available) CHLAMYDIA SCREENING 04/16/2021 04/16/2020, 04/16/2020, 04/14/2017, Additional history exists Depression Screening 04/16/2021 04/16/2020 LDL-C 04/16/2021 10/22/2016, 12/16/2014 Postponed from 10/22/2017 (Alte rnative Guidelines) MENINGOCOCCAL B VACCINES (1 04/16/2021 Post poned from of 2 - Risk Bexsero 2-dose 02/15 (Alternative series) Guidelines) URINE MICROALBUMIN 04/16/2021 10/22/2016, 06/06/2014, Postp oned from 07/22/2012 10/22/2017 (Alte rnative Guidelines) PAP SMEAR 04/16/2023 04/16/2020, 04/16/2020 DTaP,Tdap,and Td Vaccines 04/14/2027 04/14/2017, 12/27/2015 , (6 - Td) 06/06/2010, Additional history exists MENINGOCOCCAL VACCINE Aged Out 06/06/2010 No longer eligible based on patient 's age to complete this topic PNEUMOCOCCAL 0-64 YEARS Aged Out 07/20/2014 No longe r eligible COMBINED SERIES based on patient 's age to complete this topic HPV VACCINES Completed 07/14/2017, 04/14/2017, 01/24/2015 documented as of this encounter Results Not on filedocumented in this encounter Insurance Payer Benefit Plan / Subscriber ID Effective Dates Phone Addre ss Type Group TMHP MEDICAID OF [id number] 2020-Present [phone] [address] Medicaid [place] [id number] [place] [phone] documented as of this encounter Advance Directives Type Date Recorded Patient Planning Consultant Explanati on Advance Directives and Living Will Power of Senior Tech Manufacturing Engineering Name Relationship Healthcare Agent Communication Relationship Monet (call first) Sibling Health Care Agent [phone] Héctor (Mobile) Suleiman Forte Spouse Health Care Agent Caleb Santacruz Mother First [facility] Care Agent (Mobile)
--- OUTSIDE RECORDS SUMMARY | 2020-05-19 15:28 | XMS REPORT | Summary of Care ---
:2000 Author Organization [facility] Address [address] [place] [address] Care Team Providers Name Role Phone Eileen Schulte [facility] Primary Care Provider [phone] Reason for Referral (Routine) Status Reason Specialty Diagnoses / Referred By Referred To Procedures Contact Contact New Request Maternal Diagnoses Uncontrolled type 1 diabetes mellitus with hyperglycemia Eris, Medicine Procedures CONSULT/REFERRAL MATERNAL MEDICINE FACULTY/FELLOW Preferred location: DOMI Valdivia [address] [place] [address] Reason for Visit Reason Comments Initial Visit (Routine) Status Reason Specialty Diagnoses / Referred By Referred To Procedures Contact Contact New Request OB-GYNECOLOGY / Diagnoses Type 1 diabetes mellitus without complication Early stage of Marilee Kimball Gynecologic Procedures Discharge Follow-Up: Specialty Service OB-GYNECOLOGY; 1 Week G, 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 Allergies Active Allergy Reactions Severity Noted Date [...] of 04/16/2020) Active Problems Problem Noted Date Supervision of high-risk 04/16/2020 Multiparity 04/16/2020 History of section 04/16/2020 Overview: At [facility] in 2016 Dyspareunia, female 05/27/2017 Chronic insomnia 10/21/2016 Well woman exam 02/28/2016 DKA (diabetic ketoacidoses) 07/18/2014 Overview: Sep, 2015- admission for DKA and E coli UTI 09/2015, 10/2015, (neg 12/2015) Type 1 diabetes mellitus, uncontrolled 09/09/2013 Overview: Sliding scale novalog reports 5-10U Bedtime 38U Levemir at bedtime Depressive disorder 10/17/2012 Overview: wellbutrin 1 yr ago- self d/c. Attention deficit hyperactivity disorder (ADHD) 2012 Overview: ICD10 Diagnosis Term Machine Records Units Supervisor Utility Estimated Date of Delivery Comments Yes [...] Sign Reading Time Taken Comments Blood Pressure 108/72 04/16/2020 1:07 PM CDT Pulse 81 04/16/2020 1:07 PM CDT Temperature 36.7 C (98 F) 04/16/2020 1:07 PM CDT Respiratory Rate 16 04/16/2020 1:07 PM CDT Oxygen Saturation - - Inhaled Oxygen Concentration - - Weight 62.6 kg (138 lb) 04/16/2020 1:07 PM CDT Height 162.6 cm (5' 4") 04/16/2020 1:07 PM CDT Body Mass Index 23.69 04/16/2020 1:07 PM CDT documented in this encounter Progress Notes Marie Melvin RN - 04/16/2020 1:00 PM CDTPt recently dx with GDM, in clinic today for diabetic teaching. Pt instructed on how to check her blood glucose levels at home 4x/day and keep a daily glucose log. Pt demonstrated appropriate teach back. Reviewed GDM nutrition packet, will adhere to a 2200 calorie diet. Pt scheduled to rtc in 1 week for follow up, verbalzied understanding. MARIE MELVIN RN 04/16/2020 2:15 PM Eileen Schulte RAMON - 04/16/2020 1:00 PM CDT Chief complaint: Chief Complaint Patient presents with Initial Visit HPI CC: Follow Up Visit Salome Santacruz is a 20 year old, , /White female. Patient's last menstrual period was 03/19/2020 (approximate). She is 4w0d with an intrauterine . Her estimated date of delivery is 12/24/2020, by Last Menstrual Period. She complains today of: Nausea. She reports 1 episodes of nausea over 1-2 week(s) which occurs intermittently. Patient tolerates liquids and some food. Associated symptom(s) include vomiting. Symptoms are worse with food odors. Symptoms are relieved with avoidance of odors.. Histories OB History Para Term AB Living 2 1 1 1 SAB TAB Ectopic Multiple Live Births 1 # Outcome Date GA Lbr Kentrell/2nd Weight Sex Delivery Anes PTL Lv 2 Current 1 01/30/16 36w1d 8 lb 15.2 oz (4.06 kg) F SEC IV narcotic FRANKLIN Comments: 1st screen collected on 02/01/16 showed normal. Mg 2nd screen collected on 02/07/16 showed normal. mg Past Medical History: Diagnosis Date ADHD (attention deficit hyperactivity disorder) Anemia of mother in , condition 02/28/2016 not on meds Anxiety 11/[address] Xiong Chronic hypertension with superimposed preeclampsia 01/09/2016 Depression 11/2016 diagnosed by , stopped meds 03/2017-denies current depression Diabetes mellitus affecting in third trimester 01/29/2016 Diabetes mellitus type 1, uncontrolled, insulin dependent 1999 Previous use of pump, currently SQ injections History of recurrent UTIs Kidney disease kidney infection, unsure when last one was Liver disease 2015 enlarged liver Family History Adopted: Yes Family history unknown: Yes Family Status Relation Name Status Mo Fa Past Surgical History: Procedure Laterality Date SECTION N/A 01/30/2016 Surgeon: Renato Huffman; Location: Labor and Delivery - [facility] FACIAL LACERATION REPAIR 2003 INCISION AND DRAINAGE OF ABSCESS abdominal wall ORAL SURGERY PROCEDURE Social History Socioeconomic History Marital status: Spouse name: Not on file Number of children: Not on file Years of education: Not on file Highest education level: Not on file Occupational History Not on file Social Needs Financial resource strain: Not on file Food insecurity Worry: Not on file Inability: Not on file Transportation needs Medical: Not on file Non-medical: Not on file Tobacco Use Smoking status: Former Smoker Types: Cigarettes Start date: 04/14/2012 Quit date: 04/14/2015 Years since quittin.0 Smokeless tobacco: Never Used Substance and Sexual Activity Alcohol use: No Alcohol/week: 0.0 standard drinks Drug use: No Sexual activity: Yes Partners: Male control/protection: None Comment: Last intercourse: 03/23/2020 Lifestyle Physical activity Days per week: Not on file Minutes per session: Not on file Stress: Not on file Relationships Social connections Talks on phone: Not on file Gets together: Not on file Attends jew service: Not on file Active member of club or organization: Not on file Attends meetings of clubs or organizations: Not on file Relationship status: Not on file Intimate partner violence Fear of current or ex partner: Not on file Emotionally abused: Not on file Physically abused: Not on file Forced sexual activity: Not on file Other Topics Concern Not on file Social History Narrative Pt denies current or past physical, sexual or emotional abuse. Patient lives with fiance. Patient feels safe at home. Social History Substance and Sexual Activity Sexual Activity Yes Partners: Male control/protection: None Comment: Last intercourse: 03/23/2020 Genetic Screen Autism / Mental Retardation: No Skyler Disease: No Congenital Heart Defect: No Cystic Fibrosis: No Down Syndrome: No Familial Dysautonomia: No Hemophilia or other Blood Disorders: No Yoly Chorea: No Maternal Metabolic Disorder--specify (eg. Type 1 Diabetes, PKU): No Muscular Dystrophy: No Neural Tube Defect: No Recurrent Loss or a Stillbirth: No Sickle Cell Disease or Trait: No Garry Sachs: No Teratological Substances (specify type & strength/dose) since LMP: No Thalassemia: No Other Inherited Genetic or Chromosomal Disorder (specify): No No Significant History of Genetic Disorders: No Significant History of Genetic Disorders Labs No new labs, Labs are pending. and Admission on 04/06/2020, Discharged on 04/06/2020 Component Date Value APPEARANCE 04/06/2020 Hazy* COLOR 04/06/2020 Yellow PH 04/06/2020 6.0 SP GRAVITY 04/06/2020 1.016 GLU U QUAL 04/06/2020 150 mg/dL* BLOOD 04/06/2020 Negative KETONES 04/06/2020 20 mg/dL* PROTEIN 04/06/2020 Negative UROBILIN 04/06/2020 Normal BILIRUBIN 04/06/2020 Negative NITRITE 04/06/2020 Positive* LEUK MANN 04/06/2020 250/uL* RBC/HPF 04/06/2020 3 WBC/HPF 04/06/2020 37* BACTERIA 04/06/2020 Many* MUCOUS 04/06/2020 Slight* SQ EPITH 04/06/2020 1 URINE CULTURE 04/06/2020 >100,000 CFU/mL Escherichia coli POCT PREG 04/06/2020 positive On board controls accept* 04/06/2020 present POCT PREG LOT # 04/06/2020 [id number] POCT PREG TEST DA* 04/06/2020 2021-03-02 POCT Glu (age 0-30days) 04/06/2020 166* POCT GLU 04/06/2020 166* Radiology No new radiology. Allergies Salome is allergic to midol (ibuprofen); onion; keflex [cephalexin]; latex; and phenergan [promethazine hcl]. Medications Salome has a current medication list which includes the following prescription(s): doxylamine-pyridoxine (vit b6), insulin aspart prot/insuln asp, insulin detemir, ondansetron hcl, blood sugar diagnostic, blood-glucose meter, ondansetron, acetaminophen-codeine, ibuprofen, insulin lispro, hydroxyzine, insulin degludec, sertraline, and glucagon. Review of Systems Constitutional: Negative. HENT: Negative. Eyes: Negative. Respiratory: Negative. Breasts: Negative. Cardiovascular: Negative. Gastrointestinal: Negative. Genitourinary: Negative. Musculoskeletal: Negative. Skin: Negative. Neurological: Negative. Psychiatric/Behavioral: Negative. Endocrine: Endocrine negative BP 108/72 (BP Location: Right arm, Patient Position: Sitting, BP CUFF SIZE: Adult Medium) | Pulse 81 | Temp 36.7 C (98 F) (Oral) | Resp 16 | Ht 5' 4" (1.626 m) | Wt 138 lb (62.6 kg) | LMP 03/19/2020 (Approximate) | BMI 23.69 kg/m Pregravid BMI: Could not be calculated Physical Exam Vitals reviewed. Constitutional: She is oriented to person, place, and time. She appears well- developed. Her body habitus is normal. Neck: No tenderness and no mass. No thyroid nodules and no thyromegaly palpated. No neck adenopathy. Cardiovascular: Regular rate and rhythm. No gallop, no friction rub and no murmur auscultated. No peripheral edema present. Pulmonary/Chest: Breath sounds clear to auscultation. Normal inspiratory effort. Abdominal: Abdomen is soft. No mass palpated. No tenderness present. There is no hepatosplenomegaly,splenomegaly or hepatomegaly. There is no rigidity. No hernia palpated or inspected. Neuro/Psychiatric: She has a normal mood and affect. She is oriented to person, place, and time. Skin: No lesion, no rash and no ulceration present. Lymphadenopathy: No neck adenopathy present. No axillary adenopathy present. No inguinal adenopathy present. Genitourinary Comments: Avinash medstudent present during exam Breast: Right breast exhibits no mass, no nipple discharge and no tenderness. Left breast exhibits no mass, no nipple discharge and no tenderness. Breasts are symmetrical. Normal left breast and normalright breast Rectal: Rectal exam with normal anal tone. No mass, no external hemorrhoid and no internal hemorrhoid palpated or inspected. External genitalia: Normal external genitalia appropriate for age. Normal hair distribution. No labial lesion. Urethral meatus: Normal urethral meatus size, location and no lesion. No prolapse present. Normal urethral meatus Urethra: Normal urethra. No urethral tenderness, no mass and no urethral scarring palpated. Bladder: Bladder has no fullness, no mass palpated and no tenderness. Normal bladder Vagina:Normal vagina. No lesion inspected. Normal estrogen effect. Normal support. No abnormal vaginal discharge found. No lesions in the vagina. Cervix: Normal cervix. No lesion. No tenderness and no discharge present. Closed thick Uterus: Uterus is normal size, normal contour, normal position and non-tender. Normal uterus Adnexa: Right adnexa without tenderness, ovary enlargement or mass. Left adnexa without tenderness, ovary enlargement or mass. Normal left adnexa and normal right adnexa Anus/perineum: Normal perineum and normal anus. PHYSICAL: General Exam: HEENT: Normal Neurological: Normal Abdomen: Normal gravid Extremities: Normal Pelvic Exam: Vulva: Normal Vagina: Normal Cervix: Normal Membrane status: Intact Uterus: 4 Weeks Adnexa: Normal Rectum: Normal Assessment/Plan Return to clinic in 2 weeks. Denies zika virus risk, signs and symptoms such as fever,rash,joint pain, conjunctivitis (red eyes),muscle pain, headaches; outside [place] travel to areas affected by zika, and FOB exposure to zika. Educated on use of mosquito repellent. Supervision of high risk , antepartum (primary encounter diagnosis) Multiparity History of section Comment: initial visit with labs and physical exam Plan: POCT TEST, POCT URINALYSIS W/O SPECIFIC GRAVITY, CBC WITH DIFF, HEPATITIS B SURFACE ANTIGEN, HIV 1/2 AG-AB WITH REFLEX, POCT URINALYSIS W SPECIFIC GRAVITY, WORKUP, BLOOD BANK, RUBELLA SCREEN (MAXINE) IGG, GALV ONLY - SYPHILIS IGG/IGM, URINE CULTURE, VZV ANTIBODY SCREEN, PAP Smear-Liquid Based, GC & CHLAMYDIA AMPLIFIED ASSAY Uncontrolled type 1 diabetes mellitus with hyperglycemia Comment: reports on sliding scale insulin, reports she is supposed to be taking 32U with each meal but reports she faints, she states she has only been taking 5-10U with each meal Plan: CONSULT/REFERRAL MATERNAL MEDICINE FACULTY/FELLOW Preferred location: [place], GLYCOSYLATED HEMOGLOBIN (A1C) Screening for viral disease Comment: as ordered Plan: SARS-COV-2 IGG Nausea and vomiting during Comment: reports Plan: doxylamine-pyridoxine, vit B6, (DICLEGIS) 10-10 mg per tablet This visit did not involve counseling and coordination that comprised more than 50% of the visit time. DOMI [place] 04/16/2020 1:54 PM Marie Melvin RN - 04/16/2020 1:00 PM CDTPatient is 20 year old female here for current . Patient is . 1) Previous delivery methods 2) Patient is not experiencing cramping 3) Patient is not experiencing bleeding. 4) LMP 03/19/2020 5) Last Pap was: Never Results: N/A 6) Have you had a flu vaccine this season? no 7) PPD candidate? no 8) Patient having intermittent dull and sharp right sided abdominal pain. 9) Patient denies history of physical, emotional, or sexual abuse. Patient states she currently feels safe at home. New ob packet given and discussed with patient. MARIE MELVIN RN 04/16/2020 1:19 PM documented in this encounter Plan of Treatment Date Type Specialty Care Team Description 05/07/2020 Routine Visit OB Satellites Faculty, Harvey arango carrillo Name Type Priority Associated Diagnoses Date/Ti me SARS-COV-2 IGG LAB Routine Screening for viral 2019 2:20 PM disease CDT CBC WITH DIFF LAB Routine Supervision of high risk 2:20 PM , antepartum CDT HEPATITIS B SURFACE LAB Routine Supervision of high r isk 04/16/2020 2:20 PM ANTIGEN , antepartum CDT HIV 1/2 AG-AB WITH REFLEX LAB Routine Supervision of high risk 04/16/2020 2:20 PM , antepartum CDT RUBELLA SCREEN (MAXINE) LAB Routine Supervision of [facility] h risk 04/16/2020 2:20 PM IGG , antepartum CDT GALV ONLY - SYPHILIS LAB Routine Supervision of high risk 04/16/2020 2:20 PM IGG/IGM , antepartum CDT URINE CULTURE LAB Routine Supervision of high risk 2:27 PM , antepartum CDT VZV ANTIBODY SCREEN LAB Routine Supervision of high r isk 04/16/2020 2:20 PM , antepartum CDT PAP Smear-Liquid Based LAB Routine Supervision of hig h risk 04/16/2020 2:27 PM , antepartum CDT GC & CHLAMYDIA AMPLIFIED LAB Routine Supervision of h igh risk 04/16/2020 2:27 PM ASSAY , antepartum CDT GLYCOSYLATED HEMOGLOBIN LAB Routine Uncontrolled type 1 04/16/2020 2:20 PM (A1C) diabetes mellitus with CDT hyperglycemia Name Type Priority Associated Diagnoses Order S chedule SARS-COV-2 IGG LAB Routine Screening for viral Expect ed: 04/16/2020, disease Expires: 2020 CBC WITH DIFF LAB Routine Supervision of high risk Ex pected: 04/16/2020, , antepartum s: 04/16/2021 HEPATITIS B SURFACE LAB Routine Supervision of high r isk Expected: 04/16/2020, ANTIGEN , antepartum s: 04/16/2021 HIV 1/2 AG-AB WITH LAB Routine Supervision of high ri sk Expected: 04/16/2020, REFLEX , antepartum s: 04/16/2021 POCT URINALYSIS W LAB Routine Supervision of high ris k 20 Occurrences starting SPECIFIC GRAVITY , antepartum until 02/10/2021 WORKUP, BLOOD LAB Routine Supervision of hig h risk Expected: 04/16/2020, BANK , antepartum s: 04/16/2021 RUBELLA SCREEN (MAXINE) LAB Routine Supervision of hig h risk Expected: 04/16/2020, IGG , antepartum s: 04/16/2021 GALV ONLY - SYPHILIS LAB Routine Supervision of high risk Expected: 04/16/2020, IGG/IGM , antepartum s: 04/16/2021 URINE CULTURE LAB Routine Supervision of high risk Ex pected: 04/16/2020, , antepartum s: 04/16/2021 VZV ANTIBODY SCREEN LAB Routine Supervision of high r isk Expected: 04/16/2020, , antepartum s: 04/16/2021 PAP Smear-Liquid Based LAB Routine Supervision of hig h risk Expected: 04/16/2020, , antepartum s: 04/16/2021 GC & CHLAMYDIA LAB Routine Supervision of high risk E xpected: 04/16/2020, AMPLIFIED ASSAY , antepartum Exp ires: 04/16/2021 Health Maintenance Due Date Last Done Comments EYE EXAM 04/17/2020 Postponed from 02/16/2008 ([place] Guidelines) FOOT EXAM 04/17/2020 Postponed from 02/16/2016 ([place] Guidelines) CREATININE (SERUM) 01/09/2021 01/10/2020, 03/25/2019, 01/10/2019, Additional history exists INFLUENZA VACCINE (#1) 2021 09/07/2015 Postponed from 04/03/2020 (Vacc ine not available) CHLAMYDIA SCREENING 04/16/2021 04/16/2020, 04/14/2017, 09/20/2016, Additional history exists Depression Screening 04/16/2021 04/16/2020 HgA1C 04/16/2021 12/10/2017, 10/08/2017, Postpone d from 12/02/2016, Additional 8 (Alternative history exists Guidelines) LDL-C 04/16/2021 10/22/2016, 12/16/2014 Postponed from 10/22/2017 ([place] Guidelines) MENINGOCOCCAL B VACCINES (1 04/16/2021 Post poned from of 2 - Risk Bexsero 2-dose 02/15 (Alternative series) Guidelines) URINE MICROALBUMIN 04/16/2021 10/22/2016, 06/06/2014, Postp oned from 07/22/2012 10/22/2017 ([place] Guidelines) PAP SMEAR 04/16/2023 04/16/2020 DTaP,Tdap,and Td Vaccines 04/14/2027 04/14/2017, 12/27/2015 [...] Priority Date/Time Associated Diagnosis Comme nts POCT URINALYSIS W/O Routine 04/16/2020 12:58 Supervision of [facility] Results for this SPECIFIC GRAVITY PM CDT risk , procedur e are in antepartum the results section. POCT TEST Routine 04/16/2020 12:58 Supervision of tn [facility] Results for this PM CDT risk , procedure ar e in antepartum the results section. documented in this encounter Results POCT URINALYSIS W/O SPECIFIC GRAVITY (04/16/2020 12:58 PM CDT) Pathologist Sig nature POCT PH U 8 5 - 8 mg/dl POCT U LEUK EST Trace Negative - Negative POCT U NIT Neg Negative - Negative POCT U PROT Trace Negative - Negative POCT U GLU 500 Negative - Negative POCT U KETONE None Negative - Negative POCT U BLD Trace Negative - Negative Specimen Urine - URINE, CLEAN CATCH POCT TEST (04/16/2020 12:58 PM CDT) Pathologist Sig nature POCT PREG Positive On board controls acceptable Yes with C Line POCT PREG LOT # POCT PREG TEST DATE Specimen Urine - URINE, CLEAN CATCH documented in this encounter Visit Diagnoses Diagnosis Supervision of high risk , ante - Primary Multiparity History of section Other postprocedural status Uncontrolled type 1 diabetes mellitus wi th hyperglycemia Screening for viral disease Special screening examination for unspec ified viral disease Nausea and vomiting during documented in this encounter Insurance Payer Benefit Plan / Subscriber ID Effective Phone Address T ype Group Dates MEDICAID MEDICAID PENDING 2020-[address] Pending [place] [address] documented as of this encounter Advance Directives Type Date Recorded Patient Head Of Training And Development Explanati on Advance Directives and Living Will Power of County Agricultural Agent Name Relationship Healthcare Agent Communication Relationship Monet (call Sibling Health Care Agent [phone] [facility]) Héctor (Mobile) Suleiman Forte Significant Other Health Care Agent Caleb Santacruz Mother [facility] [phone] Care Agent (Mobile)
--- OUTSIDE RECORDS SUMMARY | 2020-05-19 15:29 | XMS REPORT | Summary of Care ---
:2000 Author Organization [facility] Address [address] [place] [address] Care Team Providers Name Role Phone Eileen Schulte [facility] Primary Care Provider Reason for Referral (THIEN) Status Reason Specialty Diagnoses / Referred By Referred To Procedures Contact Contact New Request Maternal Diagnoses Supervision of high risk , antepartum Dorinda Li Medicine Procedures CONSULT MATERNAL MEDICINE ULTRASOUND Preferred Location: Mckenzie Narayan MD [address] [place] [address] (Routine) Status Reason Specialty Diagnoses / Referred By Referred To Procedures Contact Contact New Request Pediatric Diagnoses Supervision of high risk , antepartum Dorinda Li Genetics Procedures CONSULT GENETICS MD Sylvain [address] [place], [place] [id number] (Routine) Status Reason Specialty Diagnoses / Referred By Referred To Procedures Contact Contact New Request Ophthalmology Diagnoses Supervision of high risk , antepartum Dorinda Li Procedures CONSULT OPHTHALMOLOGY MD Sylvain [address] [place], [place] [id number] Reason for Visit Reason Comments Consult (Routine) Status Reason Specialty Diagnoses / Referred By Referred To Procedures Contact Contact New Request Maternal Diagnoses Uncontrolled type 1 diabetes mellitus with hyperglycemia Eris Medicine Procedures CONSULT/REFERRAL MATERNAL MEDICINE FACULTY/FELLOW Preferred location: [place] Eileen Chisholm, [facility] [address] [place] [address] Encounter Details Date Type Department Care Team Description 05/07/2020 Telemedicine Visit [facility]- Nitesh Li MD [id number] [place] [address] Supervision of [facility] Faculty, [facility] Mf risk , [address]) [place] [address] Allergies Active Allergy Reactions Severity Noted Date [...] as of this encounter (statuses as of 05/07/2020) Medications Medication Sig Dispensed Refills Start End Status Date Date Blood-Glucose To be used with 1 Each 1 03/16/20 Active Meter (PRECISION blood ketone 13 XTRA) strips. MiscIndications: Type I (juvenile type) diabetes mellitus without mention of complication, uncontrolled glucagon (GLUCAGON 1 mg by 2 mg 0 07/24/20 A ctive EMERGENCY) 1 mg Intramuscular 14 injectionIndicatio route as needed ns: Type I (For severe (juvenile type) hypoglycemia). diabetes mellitus without mention of complication, uncontrolled, Vaccination reaction, initial encounter blood sugar 6 (six) times 200 Strip 12 07/24/20 Acti ve diagnostic daily. 14 (FREESTYLE LITE STRIPS) stripIndications: Type I (juvenile type) diabetes mellitus without mention of complication, uncontrolled, Vaccination reaction, initial encounter SERTraline 50 mg Take 1 tablet by 90 tablet 1 11/13/19 Active tabletIndications: mouth daily. 17 Chronic depression, Chronic insomnia hydrOXYzine 25 mg Take 25 mg by 0 Active tablet mouth at bedtime as needed for Other (sleep). insulin lispro 100 Inject 10-20 units 10 mL 0 12/12/19 Active unit/mL pen SQ per carb dosing 18 injectorIndication Indications: s: sliding scale sliding scale ibuprofen 800 mg Take 1 tablet by 20 tablet 0 01/10/20 Active tabletIndications: mouth every 8 20 Abdominal pain, (eight) hours as unspecified needed for Pain abdominal (scale 4-6). location, Right ovarian cyst, Right lower quadrant pain acetaminophen-code Take 1 tablet by 12 tablet 0 01/10/20 Active ine 300-30 mg mouth every 6 20 tabletIndications: (six) hours as Abdominal pain, needed for Pain unspecified (scale 7-10). abdominal location, Right ovarian cyst, Right lower quadrant pain ondansetron Take 1 tablet by 12 tablet 0 04/06/20 A ctive (ZOFRAN ODT) 4 mg mouth every 8 20 disintegrating (eight) hours as tabletIndications: needed for Nausea Nausea and Vomiting (N/V). ondansetron HCl Take 4 mg base by 0 Active (ZOFRAN ORAL) mouth. doxylamine-pyridox Take 2 tablets by 120 tablet 1 04/16/20 Active ine, vit B6, mouth at bedtime. 20 (DICLEGIS) 10-10 mg per tabletIndications: Nausea and vomiting during insulin regular Inject 10 U 1 Vial 5 05/07/20 Ac tive human (NOVOLIN R subcutaneously 30 20 REGULAR U-100 minutes before INSULN) 100 breakfast. Inject unit/mL 7 U subcutaneously injectionIndicatio 30 minutes before ns: Supervision of dinner. high risk , antepartum insulin NPH Inject 20 U 1 Vial 5 05/07/20 Active (HUMULIN N NPH subcutaneously 30 20 U-100 INSULIN) 100 minutes before unit/mL breakfast. Inject injectionIndicatio 7 U subcutaneously ns: Supervision of before bedtime. high risk , antepartum insulin degludec inject 40 Units 0 Discontinued (TRESIBA FLEXTOUCH under the skin at 020 (Formulary U-100) 100 unit/mL bedtime. c abdirizak) (3 mL) InPn insulin aspart inject 5 Units 0 Discontinued prot/insuln asp under the skin. 020 (Formulary (NOVOLOG MIX 70-30 c hange) SC) insulin detemir inject 38 Units 0 Discontinued (LEVEMIR U-100 under the skin. 020 (Formulary INSULIN SC) change) documented as of this encounter (statuses as of 05/07/2020) Active Problems Problem Noted Date Supervision of high-risk 04/16/2020 Multiparity 04/16/2020 History of section 04/16/2020 Overview: At [facility] in 2016 Dyspareunia, female 05/27/2017 Chronic insomnia [...] disorder (ADHD) 2012 Overview: ICD10 Diagnosis Term General Merchandise Manager Utility Estimated Date of Delivery Comments Yes 12/24/2020 Based on last menstr ual period of 03/19/2020 (Approximate) documented as of this encounter (statuses as of 05/07/2020) Resolved Problems Problem Noted Date Resolved Date [...] as of this encounter (statuses as of 05/07/2020) Immunizations Name Administration Dates Next Due DTAP [...] Signs Not on filedocumented in this encounter Progress Notes Darian Coley MD - 05/07/2020 10:00 AM CDT TELEHEALTH NOTE Verbal consent obtained from Patient: Salome Santacruz due to the COVID-19 pandemic for telehealth services provided below. Communication with patient was conducted via Telephone due to patient unable to obtain video call option. Location of Patient: Home Location of Provider: Office Date of Service: 05/07/2020 Chief Complaint: Consult HPI: Salome Santacruz is a 20 year old female 7w0d with Past Medical History: Diagnosis Date ADHD (attention [...] unsure when last one was Liver disease 2014 enlarged liver Doing well today, not complaint with insulin, does not have regular follow up with an clinical exercise physiologist. Sugars not controlled. MEDICATIONS: Current Outpatient Medications Medication Sig Dispense Refill insulin NPH (HUMULIN N NPH U-100 INSULIN) 100 unit/mL injection Inject 20 U subcutaneously 30 minutes before breakfast. Inject 7 U subcutaneously before bedtime. 1 Vial 5 insulin regular human (NOVOLIN R REGULAR U-100 INSULN) 100 unit/mL injection Inject 10 U subcutaneously 30 minutes before breakfast. Inject 7 U subcutaneously 30 minutes before dinner. 1 Vial 5 doxylamine-pyridoxine, vit B6, (DICLEGIS) 10-10 mg per tablet Take 2 tablets by mouth at bedtime. 120 tablet 1 ondansetron HCl (ZOFRAN ORAL) Take 4 mg base by mouth. ondansetron (ZOFRAN ODT) 4 mg disintegrating tablet Take 1 tablet by mouth every 8 (eight) hoursas needed for Nausea and Vomiting (N/V). 12 tablet 0 acetaminophen-codeine 300-30 mg tablet Take 1 tablet by mouth every 6 (six) hours as needed for Pain (scale 7-10). 12 tablet 0 ibuprofen 800 mg tablet Take 1 tablet by mouth every 8 (eight) hours as needed for Pain (scale 4-6). 20 tablet 0 insulin lispro 100 unit/mL pen injector Inject 10-20 units SQ per carb dosing Indications: sliding scale 10 mL 0 hydrOXYzine 25 mg tablet Take 25 mg by mouth at bedtime as needed for Other (sleep). SERTraline 50 mg tablet Take 1 tablet by mouth daily. 90 tablet 1 blood sugar diagnostic (FREESTYLE LITE STRIPS) strip 6 (six) times daily. 200 Strip 12 glucagon (GLUCAGON EMERGENCY) 1 mg injection 1 mg by Intramuscular route as needed (For severe hypoglycemia). 2 mg 0 Blood-Glucose Meter (PRECISION XTRA) [facility] [place] [place] To be used with blood ketone strips. 1 Each 1 No current facility-administered medications for this visit. 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 - HbA1C 9.2 on 04/16 - was on multiple insulin regimens, does not have an clinical exercise physiologist - currently managing it by herself, on Novolog and Levemir but not taking adequate dosages because sometimes it drops her sugars, range between 200s to 300s - will switch to Regular and NPH - will start AM: R 10/N 20, PM: R 7/N 7 - Needs diabetic teaching - Goal fasting blood sugars less than 95 mg/dL. Goal two hour post-prandial blood sugars less than 120 mg/dL. -Recommend ophthalmology consult , ordered -Recommend baseline EKG, to be done in clinic -Recommend baseline 24hr urine for total protein and creatinine clearance, ordered -Recommend detailed anatomy scan at 18-22 weeks gestation -Offer genetic counseling, ordered -Recommend starting aspirin 81 mg QD at 12 weeks and discontinue at 36 weeks for preeclampsia prevention. -Recommend growth ultrasound every 4 weeks starting after anatomy scan at 18-22 weeks -Recommend NST 2x/week starting at 30 weeks -Recommend TSH, ordered -Recommend delivery at 39 weeks gestation if blood sugars well controlled or earlier if clinically indicated. Patient counseled on risks of pregestational diabetes. These include an increased maternal risk of preeclampsia, delivery and delivery. Risks to the fetus include an increased risk of miscarriage, stillbirth, congenital anomalies, poor growth, macrosomia and injury. risks include polycythemia, hypoglycemia, hyperbilirubinemia, congestive cardiomyopathy and respiratory distress syndrome. She understands that good control of her blood sugars before and during can reduce many of these risks. Patients questions answered and she voiced understanding. Previous x 1 - obtain records Patient will start new insulin regimen today, follow up MFM on Thursday for sugar log review via telehealth. Darian Coley MD 05/07/2020 10:55 AM documented in this encounter Plan of Treatment Name Type Priority Associated Diagnoses Order S chedule PROTEIN QUANT U/24H LAB Routine Supervision of high r isk Expected: 05/07/2020, , antepartum s: 05/07/2021 CREATININE U 24 HR LAB Routine Supervision of high ri sk Expected: 05/07/2020, , antepartum s: 05/07/2021 THYROID STIMULATING LAB Routine Supervision of high r isk Expected: 05/07/2020, HORMONE , antepartum s: 05/07/2021 Health Maintenance Due Date Last Done Comments [...] Results Not on filedocumented in this encounter Visit Diagnoses Diagnosis Supervision of high risk , ante - Primary documented in this encounter Insurance Payer Benefit Plan / Subscriber ID Effective Dates Phone Addre ss Type Group [place] [id number] 2020-Present Medicaid HEALTH PLAN - HEALTH MANAGED MEDICAID documented as of this encounter Advance Directives Type Date Recorded Patient Social Work Nurse Explanati on Advance Directives and Living Will Power of Blasting Miner Name Relationship Healthcare Agent Communication Relationship Monet (call first) Sibling Health Care Agent Héctor (Mobile) Suleiman Forte Spouse Health Care Agent Caleb Santacruz [facility] Care Agent (Mobile)
--- OUTSIDE RECORDS SUMMARY | 2020-05-19 15:29 | XMS REPORT | Summary of Care ---
:2000 Author Organization [facility] Address [address] [place] [address] Care Team Providers Name Role Phone Eileen Schulte Primary Care Provider Reason for Visit Reason Comments Rx Concern/Question problem with Rx Assessment RETURN PHONE CALL Encounter Details Date Type Department Care Team Description [facility]/07/[address] [facility] Rx Concern/Question DOMI Chaudhary (problem with Rx); [address] [facility] ([address] [place] PHONE CALL) [place], [place] [id number] Allergies Active Allergy Reactions Severity Noted Date [...] as of this encounter (statuses as of 05/11/2020) Medications Medication Sig Dispensed Refills Start Date [...] tabletIndications: mouth daily. Chronic depression, Chronic insomnia hydrOXYzine 25 mg Take 25 mg by mouth 0 Active tablet at bedtime as needed for Other (sleep). insulin lispro 100 Inject 10-20 units 10 mL 0 12/11/2017 Active unit/mL pen SQ per carb dosing injectorIndications: Indications: sliding sliding scale scale ibuprofen 800 mg Take 1 tablet [...] regular Inject 10 U 1 Vial 5 05/07/2020 A ctive human (NOVOLIN R subcutaneously 30 REGULAR U-100 minutes before INSULN) 100 unit/mL breakfast. Inject 7 injectionIndications U subcutaneously 30 : Supervision of minutes before high risk , dinner. antepartum insulin NPH (HUMULIN Inject 20 U 1 Vial 5 05/07/2020 Active N NPH U-100 INSULIN) subcutaneously 30 100 unit/mL minutes before injectionIndications breakfast. Inject 7 : Supervision of U subcutaneously high risk , before bedtime. antepartum documented as of this encounter (statuses as of 05/11/2020) Active Problems Problem Noted Date Supervision of high-risk 04/16/2020 Multiparity 04/16/2020 History of section 04/16/2020 Overview: At [facility] in 2016 Dyspareunia, female 05/27/2017 Chronic [...] disorder (ADHD) 2012 Overview: ICD10 Diagnosis Term Clam Dredger Utility Estimated Date of Delivery Comments Yes 12/24/2020 Based on last menstr ual period of 03/19/2020 (Approximate) documented as of this encounter (statuses as of 05/11/2020) Resolved Problems Problem Noted Date Resolved Date [...] as of this encounter (statuses as of 05/11/2020) Immunizations Name Administration Dates Next Due DTAP [...] this encounter Miscellaneous Notes Telephone Encounter - Gayle De Los Santos WHCNP - 05/09/2020 10:49 AM CDTPlease call her insurance and see what type of R/N would they cover? Novolin? Telephone Encounter - Giovanny Kimbrough RN - 05/08/2020 7:00 PM CDTAny ideas of how to get insulin? These are standard insulins. elephone Encounter - Raysa Mcgraw - 05/08/2020 3:30 PM CDTReturn phone call, please call. Telephone Encounter - Ginger Díaz LVN - 05/08/2020 9:50 AM CDTEluisvlad Santacruz is a 20 year old female Call placed to pharmacy, stated neither insulins were going to be covered by her medicaid. Informed patient will route to high risk nurse for recommendations, verbalized understanding. elephone Encounter - Ginger Díaz LVN - 05/07/2020 4:31 PM CDTEalberto Santacruz is a 20 year old female Attempted to call patient, no answer, left vm. elephone Encounter - Katelyn Henriquez - 05/07/2020 2:23 PM CDRamila Santacruz is a 20 year old female Patient requesting to speak with provider, having problem with prescription for insulin NPH (HUMULINN NPH U-100 INSULIN) 100 unit/mL injection per pharmacy not covered by insurance they will be getting different ones tomorrow that are covered by insurance. Patient wants to know what she needs to do. [facility] - [place], [place] - [address] documented in this encounter Plan of Treatment Date Type Specialty Care Team Description 05/17/2020 Routine Visit OB Satellites Risk, Ang-Rmchp-N p/High Health Maintenance Due Date Last Done Comments [...] Effective Dates Phone Addre ss Type Group [place]DR[place] [id number] 2020-Present Medicaid HEALTH PLAN - HEALTH MANAGED MEDICAID documented as of this encounter Advance Directives Type Date Recorded Patient Didactic Instructor Explanati on Advance Directives and Living Will Power of Sponge Diver Name Relationship Healthcare Agent Communication Relationship Monet (call first) Sibling Health Care Agent [phone] Héctor (Mobile) Suleiman Hoskinsno Spouse Health Care Agent Calebbrodie Santacruz Mother [facility] [phone] Care Agent (Mobile)
--- OUTSIDE RECORDS SUMMARY | 2020-05-19 15:29 | XMS REPORT | Summary of Care ---
:2000 Author Organization [facility] Address [address] [place] [address] Care Team Providers Name Role Phone Eileen Schulte [facility] Primary Care Provider [phone] Reason for Visit Reason Comments ULTRASOUND (THIEN) Status Reason Specialty Diagnoses / Referred By Referred To Procedures Contact Contact Closed Maternal Diagnoses Supervision of high risk , antepartum Dorinda Li, Medicine Procedures CONSULT MATERNAL MEDICINE ULTRASOUND Preferred Location: Mckenzie DAVIS [address] [address] Encounter Details Date Type Department Care Team Description 05/10/2020 [facility] Internship Visit [facility] Sethi, [place] Uteri ne size-date discrepancy in first trimester; Ultrasound- Mckenzie Bar MD Previous delivery, antepartum c ondition or complication [address] [facility] [address] [place] [address] [place], [place] [phone] [address] Allergies Active Allergy Reactions Severity Noted Date [...] as of this encounter (statuses as of 05/10/2020) Medications Medication Sig Dispensed Refills Start Date [...] subcutaneously high risk , before bedtime. antepartum Blood-Glucose Meter Use as directed 1 Each 0 05/08/2020 Active (TRUE METRIX GLUCOSE METER) [facility] blood sugar Patient to check 1 Box 5 05/08/2020 Active diagnostic (TRUE blood sugar four METRIX GLUCOSE TEST times daily STRIP) strip Lancets [facility] Patient to check 100 Each 5 05/08/2020 Active blood sugar four times daily insulin Patient to 1 Box 5 05/08/2020 Active syringe-needle U-100 administer insulin 1 ml (INSULIN twice daily SYRINGE) 1 mL 29 gauge x 1/2" Syrg documented as of this encounter (statuses as of 05/10/2020) Active Problems Problem Noted Date Supervision of high-risk 04/16/2020 Multiparity 04/16/2020 History of section 04/16/2020 Overview: At [facility] in 2016 Dyspareunia, female 05/27/2017 [...] disorder (ADHD) 2012 Overview: ICD10 Diagnosis Term Finance Broker Utility Estimated Date of Delivery Comments Yes 12/24/2020 Based on last menstr ual period of 03/19/2020 (Approximate) documented as of this encounter (statuses as of 05/10/2020) Resolved Problems Problem Noted Date Resolved Date [...] as of this encounter (statuses as of 05/10/2020) Immunizations Name Administration Dates Next Due DTAP [...] filedocumented in this encounter Plan of Treatment Health [...] filedocumented in this encounter Visit Diagnoses Diagnosis Uterine size-date discrepancy in first t rimester Uterine size date discrepancy, antepartu m condition or complication Previous delivery, antepartum c ondition or complication documented in this encounter Insurance Payer Benefit Plan / Subscriber ID Effective Dates Phone Addre ss Type Group [place] [facility] CHILDRENS [id number] 2020-Present Medicaid HEALTH PLAN - HEALTH MANAGED MEDICAID documented as of this encounter Advance Directives Type Date Recorded Patient Cnc Cutting Operator Explanati on Advance Directives and Living Will Power of Reflow Operator Name Relationship Healthcare Agent Communication Relationship Monet (call first) Sibling Health Care Agent [phone] Héctor (Mobile) Suleiman Forte Spouse Health Care Agent Calebbrodie Santacruz [facility] Care Agent (Mobile)
--- OUTSIDE RECORDS SUMMARY | 2020-05-19 15:29 | XMS REPORT | Summary of Care ---
:2000 Author Organization [facility] Address [address] [place] [address] Care Team Providers Name Role Phone Eileen Schulte [facility] Primary Care Provider Reason for Visit Reason Comments Assessment Encounter Details Date Type Department Care Team Description 05/16/2020 Telephone [facility]- A Eileen Mabry, Assessment [address] [place] [address] [phone] [place], [place] [address] [phone] Allergies Active Allergy Reactions Severity Noted Date [...] as of this encounter (statuses as of 05/16/2020) Medications Medication Sig Dispensed Refills Start Date [...] 0 05/08/2020 Active (TRUE METRIX GLUCOSE METER) [facility] blood sugar Patient to check 1 Box 5 05/08/2020 Active diagnostic (TRUE blood sugar four METRIX GLUCOSE TEST times daily STRIP) strip Lancets [facility] Patient to check 100 Each 5 05/08/2020 Active blood sugar four times daily insulin Patient to 1 Box 5 05/08/2020 Active syringe-needle U-100 administer insulin 1 ml (INSULIN twice daily SYRINGE) 1 mL 29 gauge x 1/2" Syrg documented as of this encounter (statuses as of 05/16/2020) Active Problems Problem Noted Date Supervision of high-risk 04/16/2020 Multiparity 04/16/2020 History of section 04/16/2020 Overview: At [facility] in 2016 Dyspareunia, female 05/27/2017 Chronic insomnia [...] disorder (ADHD) 2012 Overview: ICD10 Diagnosis Term Elevator Builder Utility Estimated Date of Delivery Comments Yes 12/24/2020 Based on last menstr ual period of 03/19/2020 (Approximate) documented as of this encounter (statuses as of 05/16/2020) Resolved Problems Problem Noted Date Resolved Date [...] as of this encounter (statuses as of 05/16/2020) Immunizations Name Administration Dates Next Due DTAP [...] this encounter Miscellaneous Notes Telephone Encounter - Ester Chavez RN - 05/16/2020 4:23 PM CDTEalberto Santacruz is a 20 year old female Patient c/o having chest pains every 10 min with pain level of 6-8 pain scale in between attacks butat time of pain with SOB is a 10 on the pain scale. Patient denies other symptoms. Informed patient to go to the nearest ER immediately or to a [facility] hospital. Patient verbalized understanding. elephone Encounter - Ewa Verma - 05/16/2020 4:11 PM CDTElakeshajustina Santacruz is a 20 year old female Patient states having chest pains every 10 min transferred to nurse documented in this encounter Plan of Treatment Date Type Specialty Care Team Description 05/17/2020 Routine Visit OB Satellites Risk, Ang-Rmchp-N p/High 05/21/2020 Telemedicine Visit OB Satellites Consults, Rmchp Ang P n Genetic Health Maintenance Due Date Last Done Comments [...] Dates Phone Addre ss Type Group [place] CHILDRENS [place] CHILDRENS [id number] 2020-Present Medicaid HEALTH PLAN - HEALTH MANAGED MEDICAID documented as of this encounter Advance Directives Type Date Recorded Patient Map Plotter Explanati on Advance Directives and Living Will Power of Poultry Pinner Name Relationship Healthcare Agent Communication Relationship Monet (call first) Sibling Health Care Agent Héctor (Mobile) Suleiman Forte Spouse Health Care Agent Caleb Santacruz Mother [facility] Care Agent (Mobile)
--- OUTSIDE RECORDS SUMMARY | 2020-05-19 15:31 | XMS REPORT | Summary of Care ---
:2000 Author Organization [facility] - Health Address [address] [place] [id number] Care Team Providers Name Role Phone Eileen Schulte [facility] Primary Care Provider [phone] Reason for Visit Reason Comments Chest Pain Shortness of Breath Auth/Cert Status Reason Specialty Diagnoses / Referred By Referred To Procedures Contact Contact Emergency Medicine Adc Em ergency Dept [address] [facility] [place] [address] Fax: Encounter Details Date Type Department Care Team Description 05/16/2020 Emergency ADC-Emergency Sameer Altamirano, DO Hyperglycemia (Primary Dx); Department [address] [place] [address]. Palpitations 132 [facility] [address] [place] [address] [place] [id number] Allergies Active Allergy Reactions Severity Noted Date [...] 0 05/08/2020 Active (TRUE METRIX GLUCOSE METER) [place] blood sugar Patient to check 1 Box 5 05/08/2020 Active diagnostic (TRUE blood sugar four METRIX GLUCOSE TEST times daily STRIP) strip Lancets [place] Patient to check 100 Each 5 05/08/2020 [...] 04/16/2020 History of section 04/16/2020 Overview: At [facility] in 2016 Dyspareunia, female 05/27/2017 [...] disorder (ADHD) 2012 Overview: ICD10 Diagnosis Term Section Chief Utility Estimated Date of Delivery Comments Yes [...] 01/23/2015 01/24/2016 UTI (lower urinary tract infection) 01/18/201511/2015 Recurrent UTI (urinary tract infection) complicating pregnan [...] been in contact with No / Unsure 05/16/2020 5:21 PM CDT someone who was confirmed or suspected to have Coronavirus / COVID-19? documented as of this encounter Last Filed Vital Signs Vital Sign Reading Time Taken Comments Blood Pressure 116/71 05/16/2020 7:00 PM CDT Pulse 87 05/16/2020 7:00 PM CDT Temperature 37.2 C (99 F) 05/16/2020 5:26 PM CDT Respiratory Rate 18 05/16/2020 7:00 PM CDT Oxygen Saturation 100% 05/16/2020 7:00 PM CDT Inhaled Oxygen Concentration - - Weight 62.6 kg (138 lb) 05/16/2020 5:24 PM CDT Height 162.6 cm (5' 4") 05/16/2020 5:24 PM CDT Body Mass Index 23.69 05/16/2020 5:24 PM CDT documented in this encounter Discharge Instructions Radha Sandoval, DO - 05/16/2020DIAGNOSIS 1. Chest Pain 2. Hyperglycemia NO LIFE-THREATENING FINDINGS ON TODAY'S EXAM. PROCEDURES IN THE ER TODAY: Blood work Urine test EKG MEDICATIONS ADMINISTERED IN THE ER TODAY: IV fluids Insulin YOUR PRESCRIPTIONS AND [id number] MEDICATION RECOMMENDATIONS: None SPECIAL CARE INSTRUCTIONS: None FOLLOW-UP RECOMMENDATIONS: RECOMMEND FOLLOW-UP WITH A PRIMARY CARE PROVIDER OR SPECIALIST IN 2-5 DAYS, ESPECIALLY IF NO IMPROVEMENT IN SYMPTOMS. TO FOLLOW-UP WITHIN THE [facility], TRY THESE OPTIONS (CLINIC APPOINTMENTS AVAILABLE ON [id number] BASIS): 1. SCHEDULE AN APPOINTMENT ONLINE AT [facility] 2. OR CALL THE [facility] ACCESS C[facility] AT OR 3. OR CALL YOUR [facility] PHYSICIAN'S OFFICE DIRECTLY IF YOU ARE ALREADY AN ESTABLISHED [facility] PATIENT. OR, YOU MAY FOLLOW-UP WITH A PROVIDER OF YOUR CHOICE, SUCH : 1. A PHYSICIAN OF YOUR CHOICE 2. [facility], . LOCATIONS IN [facility] 3. [facility], [address], [place]; [phone] RETURN TO ER FOR WORSENING OF SYMPTOMS. AttachmentsThe following attachments cannot be sent through Care Everywhere. Hyperglycemia (High Blood Sugar) ([place])Chest Pain, Noncardiac ([place]) documented in this encounter ED Notes Radha London DO - 05/16/2020 7:16 PM CDT Patient signed out pending results of troponin and repeat glucose. Patient is feeling good. No chest pain. Has f/u with MFM tomorrow. Troponin is normal. Repeat glucose is improving. Stable here in the EC and is ok for discharge home with PCP f/u. Recent Results (from the past 24 hour(s)) POCT GLUCOSE (AUTOMATED) Collection Time: 05/16/20 5:26 PM Result Value Ref Range POCT GLU 442 (H) 70 - 110 mg/dL COMP. METABOLIC PANEL (69126) Collection Time: 05/16/20 5:38 PM Result Value Ref Range NA 132 (L) 135 - 145 mmol/L K 3.9 3.5 - 5.0 mmol/L CL 99 98 - 108 mmol/L CO2 TOTAL 24 23 - 31 mmol/L AGAP 9 2 - 16 BUN 8 7 - 23 mg/dL GLUCOSE 430 (H) 70 - 110 mg/dL CREATININE 0.51 0.50 - 1.04 mg/dL TOTAL BILI 0.3 0.1 - 1.1 mg/dL CALCIUM 8.9 8.6 - 10.6 mg/dL T PROTEIN 6.6 6.3 - 8.2 g/dL ALBUMIN 3.7 3.5 - 5.0 g/dL ALK PHOS 52 34 - 122 U/L ALTv 9 5 - 35 U/L AST(SGOT) 14 13 - 40 U/L eGFR Calculation (Non-) 150.8 mL/min/1.73m2 eGFR Calculation () 182.8 mL/min/1.73m2 CBC WITH DIFF Collection Time: 05/16/20 5:38 PM Result Value Ref Range WBC 9.54 4.30 - 11.10 10*3/L RBC 4.26 3.93 - 5.25 10*6/L HGB 12.1 11.6 - 15.0 g/dL HCT 35.8 35.7 - 45.2 % MCV 84.0 80.6 - 95.5 fL MCH 28.4 25.9 - 32.8 pg MCHC 33.8 31.6 - 35.1 g/dL RDW-SD 38.6 (L) 39.0 - 49.9 fL RDW-CV 12.9 12.0 - 15.5 % PLT 341 166 - 358 10*3/L MPV 9.6 9.5 - 12.9 fL NRBC/100 WBC 0.0 0.0 - 10.0 /100 WBCs NRBC x10^3 <0.01 10*3/L GRAN MAT (NEUT) % 66.5 % IMM GRAN % 0.50 % LYMPH % 26.3 % MONO % 4.9 % EOS % 1.5 % BASO % 0.3 % GRAN MAT x10^3(ANC) 6.34 1.88 - 7.09 10*3/uL IMM GRAN x10^3 0.05 0.00 - 0.06 10*3/uL LYMPH x10^3 2.51 1.32 - 3.29 10*3/uL MONO x10^3 0.47 0.33 - 0.92 10*3/uL EOS x10^3 0.14 0.03 - 0.39 10*3/uL BASO x10^3 0.03 0.01 - 0.07 10*3/uL URIC ACID Collection Time: 05/16/20 5:38 PM Result Value Ref Range URIC ACID 2.8 (L) 2.9 - 6.0 mg/dL VBG+VCOOX+NA+K+GLU+CA2+ Collection Time: 05/16/20 5:38 PM Result Value Ref Range PH 7.35 7.32 - 7.42 PCO2 JAIDA 43 41 - 51 mmHg PO2 JAIDA 31 25 - 40 mmHg HCO3 JAIDA 23 (L) 24 - 28 mEq/L AC VBE(BEAKER) -2.6 mEq/L THB JAIDA 13.1 12.0 - 16.0 g/dL %O2HB JAIDA 60.0 52.0 - 63.0 % %COHB JAIDA 1.5 0.0 - 1.5 % %METHB JAIDA 0.3 (L) 0.4 - 1.5 % VOL%O2 JAIDA 11.0 6.0 - 12.0 % NA 132 (L) 135 - 145 mmol/L K+ 4.0 3.5 - 5.0 mmol/L AC CA IONZ 4.50 4.50 - 5.30 mg/dL GLUCOSE 471 (HH) 70 - 110 mg/dL TROPONIN I Collection Time: 05/16/20 5:38 PM Result Value Ref Range TROPONIN I <0.012 <=0.034 ng/mL D-DIMER Collection Time: 05/16/20 5:39 PM Result Value Ref Range D-DIMER 0.29 <0.41 g/mL (FEU) COVID-19 (ID NOW RAPID TESTING) Collection Time: 05/16/20 5:40 PM Specimen: NASOPHARYNGEAL SWAB Result Value Ref Range SARS-CoV-2 Rapid ID NOW Not Detected Not Detected URINALYSIS Collection Time: 05/16/20 5:51 PM Result Value Ref Range APPEARANCE Clear Clear COLOR Straw (A) Yellow PH 7.0 4.8 - 8.0 SP GRAVITY 1.030 1.003 - 1.030 GLU U QUAL 500 mg/dL (A) Normal BLOOD Negative Negative KETONES Negative Negative PROTEIN Negative Negative UROBILIN Normal Normal BILIRUBIN Negative Negative NITRITE Negative Negative LEUK MANN Negative Negative RBC/HPF 2 0 - 3 HPF WBC/HPF 1 0 - 5 HPF BACTERIA Few (A) Negative SQ EPITH 1 HPF POCT GLUCOSE (AUTOMATED) Collection Time: 05/16/20 6:58 PM Result Value Ref Range POCT GLU 387 (H) 70 - 110 mg/dL Sarahi Corea RN - 05/16/2020 5:22 PM CDTPatient started to have chest pain and shortness of breath 20 minutes ago. 12 weeks . Patient is breathing even and easy satuaratinf 100%room air Type 1 DM Sameer Franz DO - 05/16/2020 5:17 PM CDT EMERGENCY DEPARTMENT ENCOUNTER [facility] Patient Name: Salome Santacruz Date of : 2000 20 year old Exam Room:TX6/TX6 Primary Care Physician: Eileen Schulte Pre- Hospital Patient Escorted by: Self [9] Mode of Arrival: Personal means [1] EMS Treatment Prior to ED Arrival: Chief Complaint Chief Complaint Patient presents with Chest Pain Shortness of Breath HPI 20-year-old female presenting with palpitations and chest pain. Additionally she has shortness of breath. She is reportedly 12 weeks . She is with insulin-dependent diabetes type 1. She is poorly controlled. Her blood sugars 471. She states that she was at work when symptoms happen. Symptoms have since improved. She still has nonspecific chest pressure. No history of DVT or PE in the past. She has no tachycardia or hypoxia at triage. She has an appointment with maternal- medicine tomorrow. Past Medical History / Immunizations Past Medical History: Diagnosis Date ADHD (attention [...] one was Liver disease 2014 enlarged liver Tetanus received in last 5 years: Unknown Past Surgical History Past Surgical History: Procedure Laterality Date SECTION N/A 01/30/2016 Surgeon: Renato Huffman; Location: Labor and Delivery - [place] FACIAL LACERATION REPAIR 2003 INCISION AND DRAINAGE OF ABSCESS abdominal wall ORAL SURGERY PROCEDURE Allergies Allergies Allergen Reactions Midol (Ibuprofen) Other - See comments Pt reported that her mouth gets "itchy and swollen" when she takes Midol and Midol Teen. Dr. Guo notified. Sister insists that pt is only allergic to Midol, NOT ibuprofen. Onion Hives Keflex [Cephalexin] Hives Latex Rash Phenergan [Promethazine Hcl] Other - See comments Anxiety and chest pressure Social History Tobacco Use Former Smoker; 04/14/2012 - 04/14/2015; Smoked: Cigarettes. Smokeless Tobacco: Never used smokeless tobacco. Alcohol Use No. Drug Use No. Sexual Activity Sexually active; Partners: Male; Control/Protection: None. Comments: Last intercourse: 03/23/2020 Review of Systems Review of Systems Constitutional: Positive for fatigue. Negative for chills and fever. HENT: Negative for sore throat. Eyes: Negative for pain. Respiratory: Positive for shortness of breath. Negative for cough, chest tightness and stridor. Breasts: Negative for pain. Cardiovascular: Positive for chest pain and palpitations. Negative for leg swelling. Gastrointestinal: Positive for abdominal pain (intermittent and not associated with this episode.). Negative for constipation and diarrhea. Genitourinary: Negative for bladder incontinence, vaginal discharge and difficulty urinating. Musculoskeletal: Negative for back pain. Skin: Negative for color change and wound. Neurological: Negative for dizziness, seizures, weakness, light-headedness and headaches. Physical Exam BP 124/78 | Pulse 90 | Temp 37.2 C (99 F) | Resp 15 | Ht 1.626 m (5' 4") | Wt 62.6 kg (138 lb) | LMP 03/19/2020 (Approximate) | SpO2 100% | BMI 23.69 kg/m Physical Exam Vitals signs and nursing note reviewed. Constitutional: General: She is not in acute distress. Appearance: She is well-developed. She is not diaphoretic. HENT: Head: Normocephalic and atraumatic. Right Ear: External ear normal. Left Ear: External ear normal. Nose: Nose normal. Eyes: General: No scleral icterus. Conjunctiva/sclera: Conjunctivae normal. Pupils: Pupils are equal, round, and reactive to light. Neck: Musculoskeletal: Normal range of motion and neck supple. Cardiovascular: Rate and Rhythm: Normal rate and regular rhythm. Heart sounds: Normal heart sounds. Pulmonary: Effort: Pulmonary effort is normal. Breath sounds: Normal breath sounds. Abdominal: General: Bowel sounds are normal. Palpations: Abdomen is soft. Tenderness: There is no abdominal tenderness. Musculoskeletal: Normal range of motion. Skin: General: Skin is warm and dry. Neurological: Mental Status: She is alert and oriented to person, place, and time. Cranial Nerves: No cranial nerve deficit. Deep Tendon Reflexes: Reflexes are normal and symmetric. Psychiatric: Behavior: Behavior normal. Thought Content: Thought content normal. Labs Recent Results (from the past 24 hour(s)) COMP. METABOLIC PANEL (72334) Collection Time: 05/16/20 5:38 PM Result Value Ref Range NA 132 (L) 135 - 145 mmol/L K 3.9 3.5 - 5.0 mmol/L CL 99 98 - 108 mmol/L CO2 TOTAL 24 23 - 31 mmol/L AGAP 9 2 - 16 BUN 8 7 - 23 mg/dL GLUCOSE 430 (H) 70 - 110 mg/dL CREATININE 0.51 0.50 - 1.04 mg/dL TOTAL BILI 0.3 0.1 - 1.1 mg/dL CALCIUM 8.9 8.6 - 10.6 mg/dL T PROTEIN 6.6 6.3 - 8.2 g/dL ALBUMIN 3.7 3.5 - 5.0 g/dL ALK PHOS 52 34 - 122 U/L ALTv 9 5 - 35 U/L AST(SGOT) 14 13 - 40 U/L eGFR Calculation (Non-) 150.8 mL/min/1.73m2 eGFR Calculation () 182.8 mL/min/1.73m2 CBC WITH DIFF Collection Time: 05/16/20 5:38 PM Result Value Ref Range WBC 9.54 4.30 - 11.10 10*3/L RBC 4.26 3.93 - 5.25 10*6/L HGB 12.1 11.6 - 15.0 g/dL HCT 35.8 35.7 - 45.2 % MCV 84.0 80.6 - 95.5 fL MCH 28.4 25.9 - 32.8 pg MCHC 33.8 31.6 - 35.1 g/dL RDW-SD 38.6 (L) 39.0 - 49.9 fL RDW-CV 12.9 12.0 - 15.5 % PLT 341 166 - 358 10*3/L MPV 9.6 9.5 - 12.9 fL NRBC/100 WBC 0.0 0.0 - 10.0 /100 WBCs NRBC x10^3 <0.01 10*3/L GRAN MAT (NEUT) % 66.5 % IMM GRAN % 0.50 % LYMPH % 26.3 % MONO % 4.9 % EOS % 1.5 % BASO % 0.3 % GRAN MAT x10^3(ANC) 6.34 1.88 - 7.09 10*3/uL IMM GRAN x10^3 0.05 0.00 - 0.06 10*3/uL LYMPH x10^3 2.51 1.32 - 3.29 10*3/uL MONO x10^3 0.47 0.33 - 0.92 10*3/uL EOS x10^3 0.14 0.03 - 0.39 10*3/uL BASO x10^3 0.03 0.01 - 0.07 10*3/uL URIC ACID Collection Time: 05/16/20 5:38 PM Result Value Ref Range URIC ACID 2.8 (L) 2.9 - 6.0 mg/dL VBG+VCOOX+NA+K+GLU+CA2+ Collection Time: 05/16/20 5:38 PM Result Value Ref Range PH 7.35 7.32 - 7.42 PCO2 JAIDA 43 41 - 51 mmHg PO2 JAIDA 31 25 - 40 mmHg HCO3 JAIDA 23 (L) 24 - 28 mEq/L AC VBE(BEAKER) -2.6 mEq/L THB JAIDA 13.1 12.0 - 16.0 g/dL %O2HB JAIDA 60.0 52.0 - 63.0 % %COHB JAIDA 1.5 0.0 - 1.5 % %METHB JAIDA 0.3 (L) 0.4 - 1.5 % VOL%O2 JAIDA 11.0 6.0 - 12.0 % NA 132 (L) 135 - 145 mmol/L K+ 4.0 3.5 - 5.0 mmol/L AC CA IONZ 4.50 4.50 - 5.30 mg/dL GLUCOSE 471 (HH) 70 - 110 mg/dL TROPONIN I Collection Time: 05/16/20 5:38 PM Result Value Ref Range TROPONIN I <0.012 <=0.034 ng/mL D-DIMER Collection Time: 05/16/20 5:39 PM Result Value Ref Range D-DIMER 0.29 <0.41 g/mL (FEU) COVID-19 (ID NOW RAPID TESTING) Collection Time: 05/16/20 5:40 PM Specimen: NASOPHARYNGEAL SWAB Result Value Ref Range SARS-CoV-2 Rapid ID NOW Not Detected Not Detected URINALYSIS Collection Time: 05/16/20 5:51 PM Result Value Ref Range APPEARANCE Clear Clear COLOR Straw (A) Yellow PH 7.0 4.8 - 8.0 SP GRAVITY 1.030 1.003 - 1.030 GLU U QUAL 500 mg/dL (A) Normal BLOOD Negative Negative KETONES Negative Negative PROTEIN Negative Negative UROBILIN Normal Normal BILIRUBIN Negative Negative NITRITE Negative Negative LEUK MANN Negative Negative RBC/HPF 2 0 - 3 HPF WBC/HPF 1 0 - 5 HPF BACTERIA Few (A) Negative SQ EPITH 1 HPF Imaging No results found for this visit on 05/16/20. Orders and Treatments Orders Placed This Encounter Procedures COMP. METABOLIC PANEL (72262) CBC WITH DIFF URINALYSIS URIC ACID VBG+VCOOX+NA+K+GLU+CA2+ D-DIMER COVID-19 (ID NOW RAPID TESTING) LAB ONLY COVID INTERPRETATION TROPONIN I POCT GLUCOSE(AGE >30DAYS) Orders Placed This Encounter Medications NaCl 0.9% (NS) bolus infusion 1,878 mL insulin regular human (HUMULIN R) injection 10 Units Procedures See ED Procedure Note Notes & MDM Patient was evaluated for an emergency medical condition related to Chest Pain and Shortness of Breath . Differential diagnoses considered by presenting complaints but not limited to: Pulmonary embolism, DKA, anxiety, metabolic derangements, hyperglycemia, dehydration, and others.. Labs:were ordered, and resulted, any relevant abnormalities were considered. Imaging:Was not ordered IV fluids: critical presentation requiring fluid challenge Possible DKA and hyperglycemia Procedures:were not performed. EKG: Time 1732 rate 77 normal sinus rhythm, normal axis, normal intervals, normal ST segments, interpreted. Specifically no signs of pulmonary embolism or right heart strain. Rhythm Strip Interpretation: 90 Normal Sinus Rhythm Pulse Oximetry 100% on room air, not hypoxic. Interpreted. Assessment: 20-year-old female presenting with palpitations and nonspecific chest pain. D- dimer is negative despite her being . Unlikely that she has pulmonary embolism. Her symptoms have improved. She wasmarkedly hyperglycemic. Insulin was given subcutaneous in the emergency department as well as large volume IV fluids greater than 3 L. Palpitations likely secondary to dehydration related to hyperglycemia. Patient signed out to Dr. London at shift change pending troponin and repeat blood glucose. Anticipate discharge. History, physical exam findings, results of visit, differential diagnosis, medication regimens and plan of future care have been considered. Additional MDM may be found in the ED course. Differential diagnosis considered and final disposition made based on information gathered during evaluation and may not be completely ruled out or specifically listed. Vital signs were rechecked before final disposition and determined to be expected for patient's clinical condition.. Diagnosis ICD-10-CM ICD-9-CM 1. Hyperglycemia R73.9 790.29 2. Palpitations R00.2 785.1 Disposition & Follow Up ED Disposition None Patient's Medications START taking these medications No medications on file CONTINUE taking these medications which have NOT CHANGED ACETAMINOPHEN-CODEINE 300-30 MG TABLET Take 1 tablet by mouth every 6 (six) hours as needed for Pain (scale 7-10). BLOOD SUGAR DIAGNOSTIC (FREESTYLE LITE STRIPS) STRIP 6 (six) times daily. BLOOD SUGAR DIAGNOSTIC (TRUE METRIX GLUCOSE TEST STRIP) STRIP Patient to check blood sugar four times daily BLOOD-GLUCOSE METER (PRECISION XTRA) MISC To be used with blood ketone strips. BLOOD-GLUCOSE METER (TRUE METRIX GLUCOSE METER) MISC Use as directed DOXYLAMINE-PYRIDOXINE, VIT B6, (DICLEGIS) 10-10 MG PER TABLET Take 2 tablets by mouth at bedtime. GLUCAGON (GLUCAGON EMERGENCY) 1 MG INJECTION 1 mg by Intramuscular route as needed (For severe hypoglycemia). HYDROXYZINE 25 MG TABLET Take 25 mg by mouth at bedtime as needed for Other (sleep). IBUPROFEN 800 MG TABLET Take 1 tablet by mouth every 8 (eight) hours as needed for Pain (scale 4-6). INSULIN LISPRO 100 UNIT/ML PEN INJECTOR Inject 10-20 units SQ per carb dosing Indications: sliding scale INSULIN NPH (HUMULIN N NPH U-100 INSULIN) 100 UNIT/ML INJECTION Inject 20 U subcutaneously 30 minutes before breakfast. Inject 7 U subcutaneously before bedtime. INSULIN REGULAR HUMAN (NOVOLIN R REGULAR U-100 INSULN) 100 UNIT/ML INJECTION Inject 10 U subcutaneously 30 minutes before breakfast. Inject 7 U subcutaneously 30 minutes before dinner. INSULIN SYRINGE-NEEDLE U-100 1 ML (INSULIN SYRINGE) 1 ML 29 GAUGE X 1/2" SYRG Patient to administer insulin twice daily LANCETS [facility] Patient to check blood sugar four times daily ONDANSETRON (ZOFRAN ODT) 4 MG DISINTEGRATING TABLET Take 1 tablet by mouth every 8 (eight) hoursas needed for Nausea and Vomiting (N/V). ONDANSETRON HCL (ZOFRAN ORAL) Take 4 mg base by mouth. SERTRALINE 50 MG TABLET Take 1 tablet by mouth daily. START taking Modified Medications as Prescribed No medications on file STOP taking these medications No medications on file Sameer Altamirano DO 05/16/2020 6:08 PM ACTIVE COVID-19 PANDEMIC. documented in this encounter Miscellaneous Notes ED Nurse Note - Laine Bruce RN - 05/16/2020 7:32 PM CDTPt given printed and verbal discharge instructions regarding palpitations and hyperglycemia, encouraged hydration. 0 Prescriptions provided Pt verbalized understanding of instructions, pt awake alert oriented, resp reg unlabored, skin w/d, color appropriate for race, moves all ext well,pt encouraged to follow up with pcp and OBGYN Advised to seek medical attention for new/prolonged/worsening of symptoms, Symptoms improved No adverse reaction to meds given in ER noted upon discharge PIV d'cd, dressing to site, catheter in tact. Awake, alert oriented, resp reg unlabored, skin w/d, pt leaving amb with steady gait, in no apparent distress. documented in this encounter Plan of Treatment Date Type Specialty Care Team Description 05/17/2020 Routine Visit OB Satellites Risk, Ang-Rmchp-N p/High 05/21/2020 Telemedicine Visit OB Satellites Consults, Rmchp Ang P n Genetic Name Type Priority Associated Diagnoses Date/Ti me LAB ONLY COVID LAB STAT Hyperglycemia 05/16/2020 5:40 PM INTERPRETATION CDT Name Type Priority Associated Diagnoses Order S chedule LAB ONLY COVID LAB Routine Hyperglycemia ONCE for 1 O ccurrences INTERPRETATION starting 05/03 until 0 POCT GLUCOSE(AGE >30DAYS) LAB THIEN Hyperglycemia O NCE for 1 Occurrences starting 2019 until 0 Health Maintenance Due Date Last Done Comments [...] Associated Diagnosis Comme nts POCT GLUCOSE Routine 05/16/2020 6:58 Results for this (AUTOMATED) PM CDT procedure are i n the results section. URINALYSIS STAT 05/16/2020 5:51 Hyperglycemia Results fo r this PM CDT procedure are i n the results section. COVID-19 (ID NOW STAT 05/16/2020 5:40 Hyperglycemia Result s for this RAPID TESTING) PM CDT procedure are in the results section. D-DIMER STAT 05/16/2020 5:39 Hyperglycemia Results fo r this PM CDT procedure are i n the results section. VBG+VCOOX+NA+K+GLU STAT 05/16/2020 5:38 Hyperglycemia Resu lts for this +CA2+ PM CDT procedure are i n the results section. CBC WITH DIFF STAT 05/16/2020 5:38 Hyperglycemia Results f or this PM CDT procedure are i n the results section. COMP. METABOLIC STAT 05/16/2020 5:38 Hyperglycemia Results for this PANEL ([id number]) PM CDT procedure are in the results section. TROPONIN I STAT Add-On 05/16/2020 5:38 Palpitations Results for this PM CDT procedure are i n the results section. URIC ACID STAT 05/16/2020 5:38 Hyperglycemia Results fo r this PM CDT procedure are i n the results section. POCT GLUCOSE Routine 05/16/2020 5:26 Results for this (AUTOMATED) PM CDT procedure are i n the results section. CONSENT/REFUSAL Routine 05/16/2020 5:18 FOR DIAGNOSIS AND PM CDT TREATMENT documented in this encounter Results POCT GLUCOSE (AUTOMATED) (05/16/2020 6:58 PM CDT) Pathologist Sig nature POCT GLU 387 (H) 70 - 110 mg/dL [facility] Specimen Blood Performing Organization Address City/State/Zipcode Phone Number [facility] CLIA: [id number] [place] [address] URINALYSIS (05/16/2020 5:51 PM CDT) Pathologist Sig nature APPEARANCE Clear Clear [facility] COLOR Straw (A) Yellow [facility] PH 7.0 4.8 - 8.0 [facility] SP GRAVITY 1.030 1.003 - 1.030 [facility] GLU U QUAL 500 mg/dL (A) Normal [facility] BLOOD Negative Negative [facility] KETONES Negative Negative [facility] PROTEIN Negative Negative [facility] UROBILIN Normal Normal [facility] BILIRUBIN Negative Negative [facility] NITRITE Negative Negative [facility] LEUK MANN Negative Negative [facility] RBC/HPF 2 0 - 3 HPF [facility] WBC/HPF 1 0 - 5 HPF [facility] BACTERIA Few (A) Negative [facility] SQ EPITH 1 HPF [facility] Specimen Urine - URINE, CLEAN CATCH Performing Organization Address [facility] Phone Number [facility] CLIA: [id number] [place] [address] COVID-19 (ID NOW RAPID TESTING) (05/16/2020 5:40 PM CDT) SARS-CoV-2 Rapid ID Not Detected Not Detected [facility] Specimen Swab - NASOPHARYNGEAL SWAB Narrative Performed At ID NOW COVID-19 Assay is an isothermal nucleic [facility] acid amplification test intended for the qualitative detection of nucleic acid from SARS-CoV-2 viral RNA in nasopharyngeal ([employer]) specimens. It is used under Emergency Use Authorization (EUA) by FDA. The limit of detection (LOD) of the assay is 125 Genome Equivalents/mL. A positive result is indicative of the presence of SARS-CoV-2 RNA. Clinical correlation with patient history and other diagnostic information is necessary to determine patient infection status. A negative (Not Detected) result does not preclude SARS-CoV-2 infection. In patients with clinical symptoms and other tests that are consistent with SARS-CoV-2 infection, negative results should be treated as presumptive negative and a new specimen should be tested with alternative PCR molecular test. Invalid: Please collect a new specimen for repeat patient testing if clinically indicated. Performing Organization Address City/[facility]/Zipcode Phone Number [facility] CLIA: [id number] [place] [address] LABORATORY [address] [place] [address] D-DIMER (05/16/2020 5:39 PM CDT) [facility] D-DIMER 0.29 <0.41 g/mL (FEU) [facility] LABORATORY Specimen Blood - VENOUS Narrative Performed At This test may be used in conjunction with a [facility] clinical pretest probability (PTP) assessment model to exclude venous thromboembolism (VTE) in patients suspected of deep venous thrombosis (DVT) and pulmonary embolism (PE) A D-Dimer value less than 0.50 g/ml (FEU) has a negative predicative value of 96 to 100% (95% CI)and 97 to 100% (95% CI) as an aid in the diagnosis of deep vein thrombosis (DVT) and pulmonary embolism when there is low or moderate pretest probability of PE or DVT. D-Dimer values are expressed in initial fibrinogen equivalent units (FEU)" The assay results should be used with other information, including the clinical context, in forming a diagnosis. Performing Organization Address [facility] Facility[facility] Phone Number [facility] CLIA: [id number] [place] [address] [place] [address] TROPONIN I (05/16/2020 5:38 PM CDT) [facility] TROPONIN I <0.012 <=0.034 ng/mL [facility] Specimen Blood - VENOUS Narrative Performed At Equal or Less than 0.034 ng/ml---Normal [facility] Note: Cardiac troponin begins to rise 3-4 hours after the onset of ischemia. Repeat in 4-6 hours if the sample was drawn within 3-4 hours of the onset of the symptom and found normal. Between 0.035 and 0.120 ng/mL--- Borderline. Questionable myocardial injury or necros is Note: Serial measurement may be necessary to confirm or exclude the diagnosis of myocardial injury or necrosis; Clinical correlation (symptoms, EKGs, imaging studies, and others) required; Repeat in 4-6 hours if clinically indicated. Equal or Higher than 0.121 ng/mL---Abnormal. Myocardial Injury or Necrosis Likely Biotin has been reported to cause a negative bias, interpret results relative to patient's use of biotin. Performing Organization Address City/[facility]/Zipcode Phone Number [facility] CLIA: [id number] [place], [place] [id number] LABORATORY [address] VBG+VCOOX+NA+K+GLU+CA2+ (05/16/2020 5:38 PM CDT) Pathologist Sig nature PH 7.35 7.32 - 7.42 [facility] PCO2 JAIDA 43 41 - 51 mmHg [facility] PO2 JAIDA 31 25 - 40 mmHg [facility] HCO3 JAIDA 23 (L) 24 - 28 mEq/L [facility] AC VBE(BEAKER) -2.6 mEq/L [facility] THB JAIDA 13.1 12.0 - 16.0 g/dL [facility] %O2HB JAIDA 60.0 52.0 - 63.0 % [facility] %COHB JAIDA 1.5 0.0 - 1.5 % [facility] %METHB JAIDA 0.3 (L) 0.4 - 1.5 % [facility] VOL%O2 JAIDA 11.0 6.0 - 12.0 % [facility] NA 132 (L) 135 - 145 mmol/L [facility] K+ 4.0 3.5 - 5.0 mmol/L [facility] AC CA IONZ 4.50 4.50 - 5.30 mg/dL [facility] GLUCOSE 471 (HH) 70 - 110 mg/dL [facility] Specimen Blood - VENOUS Performing Organization Address City/[facility]/Zipcode Phone Number [facility] CLIA: [id number] [place] [address] URIC ACID (05/16/2020 5:38 PM CDT) Pathologist Sig nature URIC ACID 2.8 (L) 2.9 - 6.0 mg/dL [facility] Specimen Blood - VENOUS Performing Organization Address City/[facility]/Zipcode Phone Number [facility] CLIA: [id number] [place], [place] [id number] LABORATORY [address] CBC WITH DIFF (05/16/2020 5:38 PM CDT) [facility] WBC 9.54 4.30 - 11.10 [facility] 10*3/L HOSPITAL LABORATORY RBC 4.26 3.93 - 5.25 [facility] 10*6/L [facility] HGB 12.1 11.6 - 15.0 [facility] g/dL [facility] HCT 35.8 35.7 - 45.2 % [facility] MCV 84.0 80.6 - 95.5 fL [facility] MCH 28.4 25.9 - 32.8 pg [facility] MCHC 33.8 31.6 - 35.1 [facility] g/dL [facility] RDW-SD 38.6 (L) 39.0 - 49.9 fL [facility] RDW-CV 12.9 12.0 - 15.5 % [facility] PLT 341 166 - 358 [facility] 10*3/L [facility] MPV 9.6 9.5 - 12.9 fL [facility] NRBC/100 WBC 0.0 0.0 - 10.0 /100 [facility] WBCs [facility] NRBC x10^3 <0.01 10*3/L [facility] GRAN MAT (NEUT) % 66.5 % [facility] IMM GRAN % 0.50 % [facility] LYMPH % 26.3 % [facility] MONO % 4.9 % [facility] EOS % 1.5 % [facility] BASO % 0.3 % [facility] GRAN MAT x10^3(ANC) 6.34 1.88 - 7.09 [facility] 10*3/uL HOSPITAL LABORATORY IMM GRAN x10^3 0.05 0.00 - 0.06 [facility] 10*3/uL HOSPITAL LABORATORY LYMPH x10^3 2.51 1.32 - 3.29 [facility] 10*3/uL HOSPITAL LABORATORY MONO x10^3 0.47 0.33 - 0.92 [facility] 10*3/uL HOSPITAL LABORATORY EOS x10^3 0.14 0.03 - 0.39 [facility] 10*3/uL [facility] BASO x10^3 0.03 0.01 - 0.07 [facility] 10*3/uL [facility] Specimen Blood - VENOUS Performing Organization Address City/State/Zipcode Phone Number [facility] CLIA: [id number] [place] [address] COMP. METABOLIC PANEL ([id number]) (05/16/2020 5:38 PM CDT) [facility] NA 132 (L) 135 - 145 [facility] mmol/L [facility] K 3.9 3.5 - 5.0 [facility] mmol/L [facility] CL 99 98 - 108 mmol/L [facility] CO2 TOTAL 24 23 - 31 mmol/L [facility] AGAP 9 2 - 16 [facility] BUN 8 7 - 23 mg/dL [facility] GLUCOSE 430 (H) 70 - 110 mg/dL [facility] CREATININE 0.51 0.50 - 1.04 [facility] mg/dL [facility] TOTAL BILI 0.3 0.1 - 1.1 mg/dL [facility] CALCIUM 8.9 8.6 - 10.6 [facility] mg/dL [facility] T PROTEIN 6.6 6.3 - 8.2 g/dL [facility] ALBUMIN 3.7 3.5 - 5.0 g/dL [facility] ALK PHOS 52 34 - 122 U/L [facility] ALTv 9 5 - 35 U/L [facility] AST(SGOT) 14 13 - 40 U/L [facility] eGFR Calculation 150.8 mL/min/1.73m2 [facility] ([facility] [place] [facility] [place]) eGFR Calculation 182.8 mL/min/1.73m2 [facility] () [facility] Specimen Blood - VENOUS Narrative Performed At Association of Glomerular Filtration Rate (GFR) [facility] and Staging of Kidney Disease* + + +- + | GFR (mL/min/1.73 m2) | With Kidney Damage | Without Kidney Damage + + +- + | >90 | Stage one | Normal + + +- + | 60-89 | Stage two | Decreased GFR + + +- + | 30-59 | Stage three | Stage three + + +- + | 15-29 | Stage four | Stage four + + +- + | <15 (or dialysis) | Stage five | Stage five + + +- + *Each stage assumes the associated GFR level has been in effect for at least three months. Stages 1 to 5, with or without kidney [...] abnormalities in imaging tests). Performing Organization Address City/State/Zipcode Phone Number [facility] CLIA: [id number] [place] [address] POCT GLUCOSE (AUTOMATED) (05/16/2020 5:26 PM CDT) [facility] POCT GLU 442 (H) 70 - 110 mg/dL [facility] Specimen Blood Performing Organization Address City/[facility]/Zipcode Phone Number [facility] CLIA: [id number] [place] [address] documented in this encounter Visit Diagnoses Diagnosis Hyperglycemia - Primary Other abnormal glucose Palpitations documented in this encounter Administered Medications Medication Order MAR Action Action Date Dose Rate Site insulin regular human Given 05/16/2020 6:20 PM 10 Units Right Upper Arm-SC (HUMULIN R) injection CDT 10 Units 10 Units, Subcutaneous, ONCE, 1 dose, Thu05/16/20 at 1930, Routine NaCl 0.9% (NS) bolus infusion New Bag 05/16/2020 5:51 PM CDT 1,878 mL 999 mL/hr 1,878 mL at 999 mL/hr, 1,878 mL (30 mL/kg 62.6 kg), IV Infusion, ONCE, 1 dose, Thu05/16/20 at 1745, STAT documented in this encounter Additional Health Concerns Infection Onset Date Last Indicated Resolved Time COVID-19 Rule Out 05/16/2020 05/16/2020 05/16/2020 6: 21 PM CDT documented as of this encounter Insurance Payer Benefit Plan / Subscriber ID Effective Dates Phone Addre ss Type Group [facility] [id number] 2020-Present Medicaid HEALTH PLAN - HEALTH MANAGED MEDICAID documented as of this encounter Advance Directives Type Date Recorded 

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
--- OUTSIDE RECORDS SUMMARY | 2020-05-19 15:33 | XMS REPORT | Continuity of Care Document ---
:2000 Author Organization [facility] t Address [address] [place] [address] Care Team Providers Name Role Phone Inga DAVIS, Tanvi Primary Care Physician Unavailable Risk Attending Clinician Unavailable Singer HERNANDEZ Attending Clinician Akinsipe WHCNP, C Attending Clinician Ultrasound Attending Clinician Unavailable Faculty, Rmchp Mfm Attending Clinician Unavailable Doctor Unassigned, Name Attending Clinician Unavailable Rehana ROBERTS, G Attending Clinician Angel DAVIS S Attending Clinician TRINITY CRAWLEY Attending Clinician Unavailable STANISLAW HODGES Attending Clinician Unavailable TRENTON CHACON Attending Clinician Unavailable LEOBARDO HANSEN Admitting Clinician Unavailable JORGE LUIS SAM Admitting Clinician Unavailable TRENTON CHACON Admitting Clinician Unavailable Problems Condition Condition Condition Status Onset Resolution Last Treating Co mments Source Name Details Category Date Date Treatment Clinician Date Diabetic Diabetic Disease Active 2016-08 [facility]15 Linette kes - is without is without 00:00: Me dical coma coma 00 Center associated associated with with diabetes diabetes mellitus mellitus due to due to underlying underlying condition condition Diabetic Diabetic Disease Active 2016-08 [facility] 0-16 Linette kes - is without is without 00:00: Me dical coma coma 00 Center associated associated with type with type 1 diabetes 1 diabetes mellitus mellitus DKA, type DKA, type Disease Active [facility] Nausea Nausea Disease Active [facility] Center Allergies, Adverse Reactions, Alerts Allergy Allergy Status Severity Reaction(s) Onset Inactive Treating Comm ents Source Name Type Date Date Clinician Tree Nut Propensi Active 2016-[address] [facility] [address] [facility] to 1-15 [facility] - adverse 00:00: Medical reaction 00 Center s Onion Propensi Active Hives 2016-[address] [facility] [facility] to 0-16 [facility] - adverse 00:00: Medical reaction 00 [place] [facility] Latex Propensi Active Rash [facility] to 905 [facility] - adverse 00:00: Medical reaction 00 Center s Acetamin Propensi Active Rash Bumps in [facility] ophen-Pa ty to 905 mouth [facility] - [facility] adverse 00:00: Medical reaction 00 [place] Prometha Propensi Active Anxiety Severe [facility] ty to 905 anxiety [facility] - adverse 00:00: attacks Medical reaction 00 Center s Social History Social Habit Start Date Stop Date Quantity Comments Source Sex Assigned At [facility] Tobacco use and 2017-06-17 2017-06-[address] [facility] - exposure 00:00:00 00:00:00 [facility] Alcohol intake 2017-06-17 2017-06-17 Current [facility] es - 00:00:00 00:00:00 non-drinker of Medical nter alcohol (finding) History of 2016-06-18 Current smoker [facility] - tobacco use 00:00:00 Medical Cente r Smoking Status Start Date Stop Date Source Former smoker 2017-06-17 00:00:00 2017-06-17 00:00:00 [facility] Medications Ordered Filled Start Stop Current Ordering Indication Dosage Frequency Signature Comments Components Source Medication Medication Date Date Medication? Clinician (SIG) Name Name medroxyPROG 2016-08 Yes 150mg Inject [address] [facility] ESTERone 1-17 contracepti mg Luke s - (DEPO-PROVE 12:40: on intramuscu Medical RA) 150 09 larly Center mg/mL every 3 injection (three) months. sertraline 2016-08 Yes anxiety 50mg QD Take [address] (ZOLOFT) 50 -17 with by mouth [facility] - MG tablet 12:40: depression daily. Medical 09 Center traZODone 2016-08 Yes insomnia 50mg QD Take [address] (DESYREL) 1-17 associated by mouth [facility] - 50 MG 12:40: with nightly. Medical tablet 09 depression Center ondansetron 2016-08 Yes 4mg Take [address] (ZOFRAN-ODT -17 by mouth [facility] - ) 4 MG 12:40: every 8 Medical disintegrat 09 (eight) Cente r ing tablet hours as needed for Nausea. insulin 2016-08 Yes type 1 10U Inject 0.[address] regular 1-17 diabetes mLs (10 [facility] - (HUMULIN 00:00: mellitus Units Medi ruben R,NOVOLIN 00 total) Center R) 100 subcutaneo unit/mL usly 3 injection (three) times daily before meals Use as directed.. insulin 2016-08 Yes 30U QD Inject 30 [facility] degludec 1-17 Units [facility] - (TRESIBA 00:00: subcutaneo Med ical FLEXTOUCH 00 usly every Cent er U-100) 100 evening. unit/mL (3 mL) InPn insulin Yes If [facility] regular -07 WN=550-110 [facility] - (HUMULIN 00:00: , give Medical R,NOVOLIN 00 1unitIf Center R) 100 LB=447-798 unit/mL , give injection 2unitsIf MB=779-986 , give 4unitsIf OC=007-493 , give 6unitsIf SZ=013-226 , give 8units. Immunizations Ordered Immunization Filled Immunization Date Status Commen ts Source Name Name Influenza Three-TIV 2017-05-18 Com[facility] 5[facility] Center Procedures This patient has no known procedures. Encounters Start End Encounter Admission Attending Care Care Encounter Source Date/Time Date/Time Type Type Clinicians Facility Department ID 2020-05-17 2020-05-17 Routine [place] [id number] 14:42:13 15:09:43 Ang-Rmchp-N LEVEL VIAL SETTER 350.1.13.10 Visit p/High REGIONAL 4.2.7.2.686 MATERNAL [id number] & CHILD 107 [facility] 2020-05-16 2020-05-16 Emergency [place], [facility] [id number] 17:21:00 19:33:00 Sameer [place] 350.1.13.10 [place] 4.2.7.2.686 [place] [id number] 2020-05-16 2020-05-16 Telephone Akinsharonda, [facility] [id number] 00:00:00 00:00:00 Eileen C LEVEL VIAL SETTER [id number] REGIONAL 4.2.7.2.686 MATERNAL [id number] & CHILD 107 [facility] 2020-05-10 2020-05-10 Supervisor Laundry Ultrasound, [facility] [id number] 15:41:17 16:11:17 Visit Harvey-Mfm LEVEL VIAL SETTER 350.1.13.10 REGIONAL 4.2.7.2.686 MATERNAL [id number] & CHILD 369 [facility] 2020-05-07 2020-05-07 Telemedici Faculty, [facility] [id number] 08:42:41 09:12:41 ne Visit Harvey Rodriguezchp LEVEL VIAL SETTER 350.1.13.10 [facility] REGIONAL 4.2.7.2.686 MATERNAL [id number] & CHILD 107 [facility] 2020-05-07 2020-05-07 Telephone Akinsipe, [facility] [id number] 00:00:00 00:00:00 Eileen C LEVEL VIAL SETTER 350.1.13.10 REGIONAL 4.2.7.2.686 MATERNAL [id number] & CHILD 107 [facility] 2020-04-20 2020-04-20 Telephone Akinsipe, [facility] [id number] 00:00:00 00:00:00 Eileen C LEVEL VIAL SETTER 350.1.13.10 REGIONAL 4.2.7.2.686 MATERNAL [id number] & CHILD 107 [facility] 2020-04-16 2020-04-16 Initial Akinsi, [facility] [id number] 12:54:24 14:25:19 Eileen C LEVEL VIAL SETTER 350.1.13.10 Visit REGIONAL 4.2.7.2.686 MATERNAL [id number] & CHILD 107 [facility] 2020-04-16 2020-04-16 Orders Doctor VIDYA [id number] 00:00:00 00:00:00 Only Unassigned, MARIA ELENA 350.1.13.10 [place] [facility] 4.2.7.2.686 [id number] 2020-04-06 2020-04-06 Emergency [facility] [id number] 15:01:00 16:55:00 Marilee [place] 350.1.13.10 [place] 4.2.7.2.686 [place] [id number] 2019-03-25 2019-03-25 Emergency [facility] [id number] 07:56:38 11:39:00 Noemisincere Rincon 350.1.13.10 [place] 4.2.7.2.686 [place] [id number] Results Test Description Test Time Test Comments Results Result Comments Source US PELVIC 2018-03-16 CLINICAL (TRANSVAGINAL ONLY) 14:02:32 INDICATION: R10.2 Pelvic and perineal painTECHNIQUE:Real- time and doppler transvaginal ultrasound evaluation of the pelvis was performed on the [employer].Comparison study: No prior study.FINDINGS:Uter us: 8.2 x 3.9 x 5.1 cm. Homogeneous [...] 2017-06-19 10:41:00 Test Item Value Reference Range Interpretation Comme [facility] POC-GLUCOSE METER ([facility]) (test 230 mg/dL 70-110 H TESTED AT [address] [place] code = 1538) [place] [address] POCT-GLUCOSE [id number] 08:32:00 Test Item Value Reference Range Interpretation Comments POC-GLUCOSE METER 70 mg/dL 70-110 TESTED AT [address] ([facility]) (test code = [facility] 1538) [place] [address] POCT-GLUCOSE [id number] 05:13:00 Test Item Value Reference Range Interpretation Comments POC-GLUCOSE METER 152 mg/dL 70-110 H TESTED AT [address] ([facility]) (test code [facility] [facility] = 1538) [place] [address] POCT-GLUCOSE [id number] 04:14:00 Test Item Value Reference Range Interpretation Comments POC-GLUCOSE METER 55 mg/dL 70-110 L TESTED AT [address] ([facility]) (test code = [employer] [facility] 1538) [place] [address] POCT-GLUCOSE [id number] 20:37:00 Test Item Value Reference Range Interpretation Comments POC-GLUCOSE METER 204 mg/dL 70-110 H TESTED AT [address] ([facility]) (test code [employer] [facility] = 1538) [place] [address] POCT-GLUCOSE [id number] 19:01:00 Test Item Value Reference Range Interpretation Comments POC-GLUCOSE METER 88 mg/dL 70-110 TESTED AT [address] ([facility]) (test code = [employer] [facility] 1538) [place] [address] POCT-GLUCOSE [id number] 17:27:00 Test Item Value Reference Range Interpretation Comments POC-GLUCOSE METER 253 mg/dL 70-110 H TESTED AT [address] ([facility]) (test code [facility] = 1538) [place] [address] POCT-GLUCOSE [id number] 15:36:00 Test Item Value Reference Range Interpretation Comments POC-GLUCOSE METER 366 mg/dL 70-110 H TESTED AT [facility] [address] [address] (BEAKER) (test code [facility] = 1538) [place] [address] POCT-GLUCOSE [id number] 11:51:00 Test Item Value Reference Range Interpretation Comments POC-GLUCOSE METER 194 mg/dL 70-110 H TESTED AT [facility] [address] [address] (BEAKER) (test code [facility] = 1538) [place] [address] POCT-GLUCOSE [id number] 10:19:00 Test Item Value Reference Range Interpretation Comments POC-GLUCOSE METER 147 mg/dL 70-110 H TESTED AT [facility] [address] [address] (BEAKER) (test code [facility] = 1538) [place] [address] BASIC METABOLIC [id number] 09:23:00 Test Item Value Reference Range Interpretation Comments SODIUM (BEAKER) 135 meq/L 135-148 (test code = 381) POTASSIUM (BEAKER) 3.5 meq/L 3.5-5.5 (test code = 379) CHLORIDE (BEAKER) 108 meq/L 98-106 H (test code = 382) CO2 (BEAKER) (test 20 meq/L 20-31 code = 355) BLOOD UREA NITROGEN 8 mg/dL 10-26 L (BEAKER) (test code = 354) CREATININE (BEAKER) 0.90 mg/dL 0.50-1.20 (test code = 358) GLUCOSE RANDOM 164 mg/dL 70-110 H (BEAKER) (test code = 652) CALCIUM (BEAKER) 8.6 mg/dL 8.5-10.5 (test code = 697) EGFR (BEAKER) (test 81 mL/min/1.73 ESTIMA PRACHI GFR IS code = 1092) sq m NOT ACCURATE CREATININE CLEARANCE IN PREDICTING GLOMERULAR FILTRATION RATE . ESTIMATED GFR I S NOT APPLICABLE FOR DIALYSIS PATIEN TS. POCT-GLUCOSE [id number] 08:02:00 Test Item Value Reference Range Interpretation Comments POC-GLUCOSE METER 161 mg/dL 70-110 H TESTED AT [facility] [address] [address] (BEAKER) (test code [facility] = 1538) [place] [address] POCT-GLUCOSE [id number] 07:03:00 Test Item Value Reference Range Interpretation Comments POC-GLUCOSE METER 151 mg/dL 70-110 H TESTED AT [facility] [address] [address] (BEAKER) (test code [facility] = 1538) [place] [address] POCT-GLUCOSE [id number] 05:08:00 Test Item Value Reference Range Interpretation Comments POC-GLUCOSE METER 158 mg/dL 70-110 H TESTED AT [facility] [address] [address] (BEAKER) ([facility] 1538[facility] [place] [address] BASIC METABOLIC [id number] 04:51:00 Test Item Value Reference Range Interpretation Comments SODIUM (BEAKER) 137 meq/L 135-148 (test code = 381) POTASSIUM (BEAKER) 3.3 meq/L 3.5-5.5 L (test code = 379) CHLORIDE (BEAKER) 111 meq/L 98-106 H (test code = 382) CO2 (BEAKER) (test 15 meq/L 20-31 L code = 355) BLOOD UREA NITROGEN 9 mg/dL 10-26 L (BEAKER) (test code = 354) CREATININE (BEAKER) 0.84 mg/dL 0.50-1.20 (test code = 358) GLUCOSE RANDOM 160 mg/dL 70-110 H (BEAKER) (test code = 652) CALCIUM (BEAKER) 8.3 mg/dL 8.5-10.5 L (test code = 697) EGFR (BEAKER) (test 87 mL/min/1.73 ESTIMA PRACHI GFR IS code = 1092) sq m NOT ACCURATE CREATININE CLEARANCE IN PREDICTING GLOMERULAR FILTRATION RATE . ESTIMATED GFR I S NOT APPLICABLE FOR DIALYSIS PATIEN TS. POCT-GLUCOSE [id number] 03:03:00 Test Item Value Reference Range Interpretation Comments POC-GLUCOSE METER 153 mg/dL 70-110 H TESTED AT [facility] [address] [address] (BEAKER) (test code [facility] = 1538) [place] [address] POCT-GLUCOSE [id number] 02:09:00 Test Item Value Reference Range Interpretation Comments POC-GLUCOSE METER 159 mg/dL 70-110 H TESTED AT [facility] [address] [address] (BEAKER) (test code [facility] = 1538) [place] [address] POCT-GLUCOSE [id number] 01:08:00 Test Item Value Reference Range Interpretation Comments POC-GLUCOSE METER 174 mg/dL 70-110 H TESTED AT [facility] [address] [address] (BEAKER) (test code [facility] = 1538) [place] [address] BASIC METABOLIC [id number] 00:38:00 Test Item Value Reference Range Interpretation Comments SODIUM (BEAKER) 137 meq/L 135-148 (test code = 381) POTASSIUM (BEAKER) 3.8 meq/L 3.5-5.5 (test code = 379) CHLORIDE (BEAKER) 111 meq/L 98-106 H (test code = 382) CO2 (BEAKER) (test 12 meq/L 20-31 L code = 355) BLOOD UREA NITROGEN 9 mg/dL 10-26 L (BEAKER) (test code = 354) CREATININE (BEAKER) 0.91 mg/dL 0.50-1.20 (test code = 358) GLUCOSE RANDOM 173 mg/dL 70-110 H (BEAKER) (test code = 652) CALCIUM (BEAKER) 8.4 mg/dL 8.5-10.5 L (test code = 697) EGFR (BEAKER) (test 80 mL/min/1.73 ESTIMA PRACHI GFR IS code = 1092) sq m NOT ACCURATE CREATININE CLEARANCE IN PREDICTING GLOMERULAR FILTRATION RATE . ESTIMATED GFR I S NOT APPLICABLE FOR DIALYSIS PATIEN TS. POCT-GLUCOSE [id number] 00:37:00 Test Item Value Reference Range Interpretation Comments POC-GLUCOSE METER 198 mg/dL 70-110 H TESTED AT [facility] [address] [address] (BEAKER) (test code [facility] = 1538) [place] [address] POCT-GLUCOSE [id number] 00:14:00 Test Item Value Reference Range Interpretation Comments POC-GLUCOSE METER 162 mg/dL 70-110 H TESTED AT [facility] [address] (BEAKER) (test code [facility] = 1538) [place] [address] POCT-GLUCOSE [id number] 23:39:00 Test Item Value Reference Range Interpretation Comments POC-GLUCOSE METER 149 mg/dL 70-110 H TESTED AT [facility] [address] [address] (BEAKER) (test code [facility] = 1538) [place] [address] POCT-GLUCOSE [id number] 23:10:00 Test Item Value Reference Range Interpretation Comments POC-GLUCOSE METER 134 mg/dL 70-110 H TESTED AT [facility] [address] [address] (BEAKER) (test code [facility] = 1538) [place] [address] POCT-GLUCOSE [id number] 22:41:00 Test Item Value Reference Range Interpretation Comments POC-GLUCOSE METER 112 mg/dL 70-110 H TESTED AT [facility] [address] (BEAKER) (test code [facility] = 1538) [place] [address] POCT-GLUCOSE [id number] 21:59:00 Test Item Value Reference Range Interpretation Comments POC-GLUCOSE METER 95 mg/dL 70-110 TESTED AT [facility] [address] [address] (BEAKER) (test code = [facility] 1538) [place] [address] POCT-GLUCOSE [id number] 21:39:00 Test Item Value Reference Range Interpretation Comments POC-GLUCOSE METER 110 mg/dL 70-110 TESTED AT [facility] [address] [address] (BEAKER) (test code [facility] = 1538) [place] [address] POCT-GLUCOSE [id number] 21:07:00 Test Item Value Reference Range Interpretation Comments POC-GLUCOSE METER 114 mg/dL 70-110 H TESTED AT [facility] [address] [address] (BEAKER) (test code [facility] = 1538) [place] [address] BASIC METABOLIC [id number] 20:47:00 Test Item Value Reference Range Interpretation Comments SODIUM (BEAKER) 139 meq/L 135-148 (test code = 381) POTASSIUM (BEAKER) 3.7 meq/L 3.5-5.5 (test code = 379) CHLORIDE (BEAKER) 112 meq/L 98-106 H (test code = 382) CO2 (BEAKER) (test 12 meq/L 20-31 L code = 355) BLOOD UREA NITROGEN 9 mg/dL 10-26 L (BEAKER) (test code = 354) CREATININE (BEAKER) 1.03 mg/dL 0.50-1.20 (test code = 358) GLUCOSE RANDOM 162 mg/dL 70-110 H (BEAKER) (test code = 652) CALCIUM (BEAKER) 8.6 mg/dL 8.5-10.5 (test code = 697) EGFR (BEAKER) (test 69 mL/min/1.73 ESTIMA PRACHI GFR IS code = 1092) sq m NOT ACCURATE CREATININE CLEARANCE IN PREDICTING GLOMERULAR FILTRATION RATE . ESTIMATED GFR I S NOT APPLICABLE FOR DIALYSIS PATIEN TS. POCT-GLUCOSE [id number] 20:17:00 Test Item Value Reference Range Interpretation Comments POC-GLUCOSE METER 176 mg/dL 70-110 H TESTED AT [facility] [address] [address] [facility] (test code [facility] = 1538) [place] [address] [id number] 19:09:00 Test Item Value Reference Range Interpretation Comments GLUCOSE RANDOM (BEAKER) (test code 230 mg/dL 70-110 H = 652) If last glucose was less than 500, may do bedside glucose instead of serum glucose.POCT-GLUCOSE [id number] 18:53:00 Test Item Value Reference Range Interpretation Comments POC-GLUCOSE METER 212 mg/dL 70-110 H TESTED AT [facility] [address] [facility] (test code [facility] = 1538) [place] [address] POCT-GLUCOSE [id number] 17:14:00 Test Item Value Reference Range Interpretation Comments POC-GLUCOSE METER 145 mg/dL 70-110 H TESTED AT [facility] [address] ([facility]) (test code [facility] = 1538) [place] [address] BASIC METABOLIC [id number] 16:51:00 Test Item Value Reference Range Interpretation Comments SODIUM (BEAKER) 140 meq/L 135-148 (test code = 381) POTASSIUM (BEAKER) 3.9 meq/L 3.5-5.5 (test code = 379) CHLORIDE (BEAKER) 114 meq/L 98-106 H (test code = 382) CO2 (BEAKER) (test 14 meq/L 20-31 L code = 355) BLOOD UREA NITROGEN 10 mg/dL 10-26 (BEAKER) (test code = 354) CREATININE (BEAKER) 0.94 mg/dL 0.50-1.20 (test code = 358) GLUCOSE RANDOM 126 mg/dL 70-110 H (BEAKER) (test code = 652) CALCIUM (BEAKER) 8.4 mg/dL 8.5-10.5 L (test code = 697) EGFR (BEAKER) (test 77 mL/min/1.73 ESTIMA PRACHI GFR IS code = 1092) sq m NOT ACCURATE CREATININE CLEARANCE IN PREDICTING GLOMERULAR FILTRATION RATE . ESTIMATED GFR I S NOT APPLICABLE FOR DIALYSIS PATIEN TS. If last glucose was less than 500, may do bedside glucose instead of serum glucose.[id number] 16:47:00 Test Item Value Reference Range Interpretation Comments GLUCOSE RANDOM (BEAKER) (test code 126 mg/dL 70-110 H = 652) If last glucose was less than 500, may do bedside glucose instead of serum glucose.POCT-GLUCOSE [id number] 16:04:00 Test Item Value Reference Range Interpretation Comments POC-GLUCOSE METER 119 mg/dL 70-110 H TESTED AT [facility] [address] ([facility]) (test code [facility] = 1538) [place] [address] [id number] 14:30:00 Test Item Value Reference Range Interpretation Comments POTASSIUM (BEAKER) (test code = 3.9 meq/L 3.5-5.5 379) If last glucose was less than 500, may do bedside glucose instead of serum glucose.[id number] 14:30:00 Test Item Value Reference Range Interpretation Comments GLUCOSE RANDOM (AKER) (test code 190 mg/dL 70-110 H = 652) If last glucose was less than 500, may do bedside glucose instead of serum glucose.POCT-GLUCOSE [id number] 14:05:00 Test Item Value Reference Range Interpretation Comments POC-GLUCOSE METER 194 mg/dL 70-110 H TESTED AT [facility] [address] ([facility]) (test code [facility] = 1538) [place] [address] POCT-GLUCOSE [id number] 13:15:00 Test Item Value Reference Range Interpretation Comments POC-GLUCOSE METER 229 mg/dL 70-110 H TESTED AT [facility] [address] ([facility]) (test code [facility] = 1538) [place] [address] BASIC METABOLIC [id number] 12:44:00 Test Item Value Reference Range Interpretation Comments SODIUM (BEAKER) 136 meq/L 135-148 (test code = 381) POTASSIUM (BEAKER) 4.0 meq/L 3.5-5.5 (test code = 379) CHLORIDE (BEAKER) 111 meq/L 98-106 H (test code = 382) CO2 (BEAKER) (test 12 meq/L 20-31 L code = 355) BLOOD UREA NITROGEN 12 mg/dL 10-26 (BEAKER) (test code = 354) CREATININE (BEAKER) 0.99 mg/dL 0.50-1.20 (test code = 358) GLUCOSE RANDOM 258 mg/dL 70-110 H (BEAKER) (test code = 652) CALCIUM (BEAKER) 8.1 mg/dL 8.5-10.5 L (test code = 697) EGFR (BEAKER) (test 72 mL/min/1.73 ESTIMA PRACHI GFR IS code = 1092) sq m NOT ACCURATE CREATININE CLEARANCE IN PREDICTING GLOMERULAR FILTRATION RATE . ESTIMATED GFR I S NOT APPLICABLE FOR DIALYSIS PATIEN TS. If last glucose was less than 500, may do bedside glucose instead of serum glucose.[id number] 12:43:00 Test Item Value Reference Range Interpretation Comments GLUCOSE RANDOM (BEAKER) (test code 258 mg/dL 70-110 H = 652) If last glucose was less than 500, may do bedside glucose instead of serum glucose.POCT-GLUCOSE [id number] 12:03:00 Test Item Value Reference Range Interpretation Comments POC-GLUCOSE METER 238 mg/dL 70-110 H TESTED AT [facility] [address] [address] [facility] (test code [facility] = 1538) [place] [address] POCT-GLUCOSE [id number] 11:05:00 Test Item Value Reference Range Interpretation Comments POC-GLUCOSE METER 261 mg/dL 70-110 H TESTED AT [facility] [address] [facility] (test code [facility] = 1538) [place] [address] HEMOGLOBIN [id number] 10:07:00 Test Item Value Reference Range Interpretation Comments HEMOGLOBIN A1C (BEAKER) (test code = > % 4.3-6.1 H 368) [id number] 10:00:00 Test Item Value Reference Range Interpretation Comments GLUCOSE RANDOM (BEAKER) (test code 441 mg/dL 70-110 HH = 652) If last glucose was less than 500, may do bedside glucose instead of serum glucose.[id number] 09:55:00 Test Item Value Reference Range Interpretation Comments POTASSIUM (BEAKER) (test code = 4.1 meq/L 3.5-5.5 379) If last glucose was less than 500, may do bedside glucose instead of serum glucose.POCT-GLUCOSE [id number] 09:18:00 Test Item Value Reference Range Interpretation Comments POC-GLUCOSE METER > mg/dL 70-110 HH OUTSIDE ME ASURING (BEAKER) (test code [facility] AT [facility] [address] = 1538) [facility] [address] [id number] 09:15:00 Test Item Value Reference Range Interpretation Comments GLUCOSE RANDOM (BEAKER) (test code 585 mg/dL 70-110 HH = 652) If last glucose was less than 500, may do bedside glucose instead of serum glucose.COMPREHENSIVE METABOLIC [id number] 08:30:00 Test Item Value Reference Range Interpretation Comments TOTAL PROTEIN 8.2 gm/dL 6.0-8.5 (BEAKER) (test code = 770) ALBUMIN (BEAKER) 4.5 g/dL 3.5-5.0 (test code = 1145) ALKALINE PHOSPHATASE 135 U/L 30-115 H (BEAKER) (test code = 346) BILIRUBIN TOTAL 0.3 mg/dL 0.1-1.3 (BEAKER) (test code = 377) SODIUM (BEAKER) (test 130 meq/L 135-148 L code = 381) POTASSIUM (BEAKER) 4.6 meq/L 3.5-5.5 (test code = 379) CHLORIDE (BEAKER) 96 meq/L 98-106 L (test code = 382) CO2 (BEAKER) (test 10 meq/L 20-31 LL code = 355) BLOOD UREA NITROGEN 16 mg/dL 10-26 (BEAKER) (test code = 354) CREATININE (BEAKER) 1.49 mg/dL 0.50-1.20 H (test code = 358) GLUCOSE RANDOM 637 mg/dL 70-110 HH (BEAKER) (test code = 652) CALCIUM (BEAKER) 9.5 mg/dL 8.5-10.5 (test code = 697) AST (SGOT) (BEAKER) 12 U/L 5-40 (test code = 353) ALT (SGPT) (BEAKER) 14 U/L 6-50 (test code = 347) EGFR (BEAKER) (test 45 mL/min/1.73 ESTIMA PRACHI GFR IS code = 1092) sq m NOT ACCURATE CREATININE CLEARANCE IN PREDICTING GLOMERULAR FILTRATION RATE . ESTIMATED GFR I S NOT APPLICABLE FOR DIALYSIS PATIEN TS. CBC W/PLT COUNT & AUTO [id number] 08:29:00 Test Item Value Reference Range Interpretation Comments WHITE BLOOD CELL COUNT (BEAKER) 7.7 K/ L 4.0-10.0 (test code = 775) RED BLOOD CELL COUNT (BEAKER) 5.18 M/ L 4.00-5.00 H (test code = 761) HEMOGLOBIN (BEAKER) (test code = 14.6 GM/DL 12.0-15.0 410) HEMATOCRIT (BEAKER) (test code = 43.9 % 36.0-45.0 411) MEAN CORPUSCULAR VOLUME (BEAKER) 84.8 fL 82.0-99.0 (test code = 753) MEAN CORPUSCULAR HEMOGLOBIN 28.1 pg 27.0-33.0 (BEAKER) (test code = 751) MEAN CORPUSCULAR HEMOGLOBIN CONC 33.1 GM/DL 32.0-36.0 (BEAKER) (test code = 752) RED CELL DISTRIBUTION WIDTH 12.3 % 12.0-15.0 (BEAKER) (test code = 412) PLATELET COUNT (BEAKER) (test 421 K/CU MM 150-430 code = 756) MEAN PLATELET VOLUME (BEAKER) 8.0 fL 6.5-10.5 (test code = 754) NUCLEATED RED BLOOD CELLS 0 /100 WBC 0-0 (BEAKER) (test code = 413) NEUTROPHILS RELATIVE PERCENT 50 % (BEAKER) (test code = 429) LYMPHOCYTES RELATIVE PERCENT 45 % (BEAKER) (test code = 430) MONOCYTES RELATIVE PERCENT 5 % (BEAKER) (test code = 431) EOSINOPHILS RELATIVE PERCENT 1 % (BEAKER) (test code = 432) BASOPHILS RELATIVE PERCENT 1 % (BEAKER) (test code = 437) NEUTROPHILS ABSOLUTE COUNT 3.80 K/ L 1.80-8.00 (BEAKER) (test code = 670) LYMPHOCYTES ABSOLUTE COUNT 3.40 K/ L 1.48-4.50 (BEAKER) (test code = 414) MONOCYTES ABSOLUTE COUNT (BEAKER) 0.40 K/ L 0.00-1.30 (test code = 415) EOSINOPHILS ABSOLUTE COUNT 0.10 K/ L 0.00-0.50 (BEAKER) (test code = 416) BASOPHILS ABSOLUTE COUNT (BEAKER) 0.00 K/ L 0.00-0.20 (test code = 417) [id number] 08:25:00 Test Item Value Reference Range Interpretation Comments PHOSPHORUS (BEAKER) (test code = 4.0 mg/dL 2.5-4.5 604) [id number] 08:25:00 Test Item Value Reference Range Interpretation Comments MAGNESIUM (BEAKER) (test code = 2.0 mg/dL 1.5-3.0 627) SCREEN, [id number] 08:16:00 Test Item Value Reference Range Interpretation Comments TEST URINE (BEAKER) (test Negative code = 583) URINALYSIS W/ [id number] 08:16:00 Test Item Value Reference Range Interpretation Comments COLOR (BEAKER) (test code = 470) Colorless CLARITY (BEAKER) (test code = 469) Clear SPECIFIC GRAVITY UA (BEAKER) (test 1.025 1.001-1.035 code = 468) PH UA (BEAKER) (test code = 467) 5.0 5.0-8.0 PROTEIN UA (BEAKER) (test code = Negative Negative 464) GLUCOSE UA (BEAKER) (test code = >500 mg/dL Negative A 365) KETONES UA (BEAKER) (test code = 80 mg/dL Negative A 371) BILIRUBIN UA (BEAKER) (test code = Negative Negative 462) BLOOD UA (BEAKER) (test code = Negative Negative 461) NITRITE UA (BEAKER) (test code = Negative Negative 465) LEUKOCYTE ESTERASE UA (BEAKER) Negative Negative (test code = 466) UROBILINOGEN UA (BEAKER) (test < mg/dL 0.2-1.0 code = 463) RBC UA (BEAKER) (test code = 519) 0 /HPF WBC UA (BEAKER) (test code = 520) < /HPF MUCUS (BEAKER) (test code = 1574) Rare SOURCE(BEAKER) (test code = 2795) KETONE, [id number] 08:09:00 Test Item Value Reference Range Interpretation Comments KETONES, BLOOD (BEAKER) (test code 6.1 mmol/L <0.4 H = 1103) PH, [id number] 08:08:00 Test Item Value Reference Range Interpretation Comments PH VENOUS (BEAKER) (test code = 701) 7.18 7.32-7.42 LL BLOOD [id number] 13:00:00 Test Item Value Reference Range Interpretation Comments CULTURE (BEAKER) (test No growth in 5 days code = 1095) BLOOD [id number] 13:00:00 Test Item Value Reference Range Interpretation Comments CULTURE (BEAKER) (test No growth in 5 days code = 1095) POCT-GLUCOSE [id number] 17:12:00 Test Item Value Reference Range Interpretation Comments POC-GLUCOSE METER 136 mg/dL 70-110 H TESTED AT [facility] [address] (BEAKER) (test code [facility] = 1538) [place] [address] POCT-GLUCOSE [id number] 16:37:00 Test Item Value Reference Range Interpretation Comments POC-GLUCOSE METER 45 mg/dL 70-110 L TESTED AT [facility] [address] (BEAKER) (test code = [facility] 1538) [place] [address] POCT-GLUCOSE [id number] 11:32:00 Test Item Value Reference Range Interpretation Comments POC-GLUCOSE METER 98 mg/dL 70-110 TESTED AT [facility] [address] (BEAKER) (test code = [facility] 1538) [place] [address] POCT-GLUCOSE [id number] 06:45:00 Test Item Value Reference Range Interpretation Comments POC-GLUCOSE METER 85 mg/dL 70-110 TESTED AT [facility] [address] (BEAKER) (test code = [facility] 1538) [place] [address] [id number] 06:25:00 Test Item Value Reference Range Interpretation Comments PHOSPHORUS (BEAKER) (test code = 2.4 mg/dL 2.5-4.5 L 604) [id number] 06:25:00 Test Item Value Reference Range Interpretation Comments MAGNESIUM (BEAKER) (test code = 2.4 mg/dL 1.5-3.0 627) BASIC METABOLIC [id number] 06:25:00 Test Item Value Reference Range Interpretation Comments SODIUM (BEAKER) 138 meq/L 135-148 (test code = 381) POTASSIUM (BEAKER) 3.9 meq/L 3.5-5.5 (test code = 379) CHLORIDE (BEAKER) 110 meq/L 98-106 H (test code = 382) CO2 (BEAKER) (test 19 meq/L 20-31 L code = 355) BLOOD UREA NITROGEN 3 mg/dL 10-26 L (BEAKER) (test code = 354) CREATININE (BEAKER) 0.79 mg/dL 0.50-1.20 (test code = 358) GLUCOSE RANDOM 104 mg/dL 70-110 (BEAKER) (test code = 652) CALCIUM (BEAKER) 8.6 mg/dL 8.5-10.5 (test code = 697) EGFR (BEAKER) (test 94 mL/min/1.73 ESTIMA PRACHI GFR IS code = 1092) sq m NOT ACCURATE CREATININE CLEARANCE IN PREDICTING GLOMERULAR FILTRATION RATE . ESTIMATED GFR I S NOT APPLICABLE FOR DIALYSIS PATIEN TS. CBC W/PLT COUNT & AUTO [id number] 05:58:00 Test Item Value Reference Range Interpretation Comments WHITE BLOOD CELL COUNT (BEAKER) 9.2 K/ L 4.0-10.0 (test code = 775) RED BLOOD CELL COUNT (BEAKER) 4.36 M/ L 4.00-5.00 (test code = 761) HEMOGLOBIN (BEAKER) (test code = 12.6 GM/DL 12.0-15.0 410) HEMATOCRIT (BEAKER) (test code = 37.0 % 36.0-45.0 411) MEAN CORPUSCULAR VOLUME (BEAKER) 84.8 fL 82.0-99.0 (test code = 753) MEAN CORPUSCULAR HEMOGLOBIN 29.0 pg 27.0-33.0 (BEAKER) (test code = 751) MEAN CORPUSCULAR HEMOGLOBIN CONC 34.2 GM/DL 32.0-36.0 (BEAKER) (test code = 752) RED CELL DISTRIBUTION WIDTH 12.5 % 12.0-15.0 (BEAKER) (test code = 412) PLATELET COUNT (BEAKER) (test 359 K/CU MM 150-430 code = 756) MEAN PLATELET VOLUME (BEAKER) 7.2 fL 6.5-10.5 (test code = 754) NUCLEATED RED BLOOD CELLS 0 /100 WBC 0-0 (BEAKER) (test code = 413) NEUTROPHILS RELATIVE PERCENT 53 % (BEAKER) (test code = 429) LYMPHOCYTES RELATIVE PERCENT 40 % (BEAKER) (test code = 430) MONOCYTES RELATIVE PERCENT 5 % (BEAKER) (test code = 431) EOSINOPHILS RELATIVE PERCENT 2 % (BEAKER) (test code = 432) BASOPHILS RELATIVE PERCENT 0 % (BEAKER) (test code = 437) NEUTROPHILS ABSOLUTE COUNT 4.90 K/ L 1.80-8.00 (BEAKER) (test code = 670) LYMPHOCYTES ABSOLUTE COUNT 3.70 K/ L 1.48-4.50 (BEAKER) (test code = 414) MONOCYTES ABSOLUTE COUNT (BEAKER) 0.50 K/ L 0.00-1.30 (test code = 415) EOSINOPHILS ABSOLUTE COUNT 0.20 K/ L 0.00-0.50 (BEAKER) (test code = 416) BASOPHILS ABSOLUTE COUNT (BEAKER) 0.00 K/ L 0.00-0.20 (test code = 417) POCT-GLUCOSE [id number] 05:38:00 Test Item Value Reference Range Interpretation Comments POC-GLUCOSE METER 102 mg/dL 70-110 TESTED AT [facility] [address] (BEAKER) (test code [facility] = 1538) [place] [address] POCT-GLUCOSE [id number] 03:29:00 Test Item Value Reference Range Interpretation Comments POC-GLUCOSE METER 163 mg/dL 70-110 H TESTED AT [facility] [address] (BEAKER) (test code [facility] = 1538) [place] [address] POCT-GLUCOSE [id number] 03:29:00 Test Item Value Reference Range Interpretation Comments POC-GLUCOSE METER 155 mg/dL 70-110 H TESTED AT [facility] [address] (BEAKER) (test code [facility] = 1538) [place] [address] BASIC METABOLIC [id number] 01:42:00 Test Item Value Reference Range Interpretation Comments SODIUM (BEAKER) 136 meq/L 135-148 (test code = 381) POTASSIUM (BEAKER) 3.7 meq/L 3.5-5.5 (test code = 379) CHLORIDE (BEAKER) 109 meq/L 98-106 H (test code = 382) CO2 (BEAKER) (test 17 meq/L 20-31 L code = 355) BLOOD UREA NITROGEN 3 mg/dL 10-26 L (BEAKER) (test code = 354) CREATININE (BEAKER) 0.79 mg/dL 0.50-1.20 (test code = 358) GLUCOSE RANDOM 153 mg/dL 70-110 H (BEAKER) (test code = 652) CALCIUM (BEAKER) 8.2 mg/dL 8.5-10.5 L (test code = 697) EGFR (BEAKER) (test 94 mL/min/1.73 ESTIMA PRACHI GFR IS code = 1092) sq m NOT ACCURATE CREATININE CLEARANCE IN PREDICTING GLOMERULAR FILTRATION RATE . ESTIMATED GFR I S NOT APPLICABLE FOR DIALYSIS PATIEN TS. [id number] 01:39:00 Test Item Value Reference Range Interpretation Comments PHOSPHORUS (BEAKER) (test code = 2.1 mg/dL 2.5-4.5 L 604) [id number] 01:39:00 Test Item Value Reference Range Interpretation Comments MAGNESIUM (BEAKER) (test code = 2.0 mg/dL 1.5-3.0 627) POCT-GLUCOSE [id number] 01:19:00 Test Item Value Reference Range Interpretation Comments POC-GLUCOSE METER 152 mg/dL 70-110 H TESTED AT [facility] [address] (BEAKER) (test code [employer] [facility] = 1538) [place] [address] POCT-GLUCOSE [id number] 01:07:00 Test Item Value Reference Range Interpretation Comments POC-GLUCOSE METER 145 mg/dL 70-110 H TESTED AT [facility] [address] (BEAKER) (test code [employer] [facility] = 1538) [place] [address] POCT-GLUCOSE [id number] 01:07:00 Test Item Value Reference Range Interpretation Comments POC-GLUCOSE METER 165 mg/dL 70-110 H TESTED AT [facility] [address] (BEAKER) (test code [employer] [facility] = 1538) [place] [address] POCT-GLUCOSE [id number] 01:07:00 Test Item Value Reference Range Interpretation Comments POC-GLUCOSE METER 163 mg/dL 70-110 H TESTED AT [facility] [address] (BEAKER) (test code [facility] = 1538) [place] [address] BASIC METABOLIC [id number] 20:59:00 Test Item Value Reference Range Interpretation Comments SODIUM (BEAKER) 137 meq/L 135-148 (test code = 381) POTASSIUM (BEAKER) 3.9 meq/L 3.5-5.5 Specimen slightly (test code = 379) hemolyzed CHLORIDE (BEAKER) 111 meq/L 98-106 H (test code = 382) CO2 (BEAKER) (test 13 meq/L 20-31 L code = 355) BLOOD UREA NITROGEN 4 mg/dL 10-26 L (BEAKER) (test code = 354) CREATININE (BEAKER) 0.83 mg/dL 0.50-1.20 Specimen slightly (test code = 358) hemolyzed GLUCOSE RANDOM 160 mg/dL 70-110 H (BEAKER) (test code = 652) CALCIUM (BEAKER) 8.5 mg/dL 8.5-10.5 (test code = 697) EGFR (BEAKER) (test 89 mL/min/1.73 ESTIMA PRACHI GFR IS code = 1092) sq m NOT ACCURATE CREATININE CLEARANCE IN PREDICTING GLOMERULAR FILTRATION RATE . ESTIMATED GFR I S NOT APPLICABLE FOR DIALYSIS PATIEN TS. [id number] 20:58:00 Test Item Value Reference Range Interpretation Comments MAGNESIUM (BEAKER) 1.8 mg/dL 1.5-3.0 Specimen slightly (test code = 627) hemolyzed [id number] 20:58:00 Test Item Value Reference Range Interpretation Comments PHOSPHORUS (BEAKER) 2.2 mg/dL 2.5-4.5 L Specimen slightly (test code = 604) hemolyzed POCT-GLUCOSE [id number] 18:02:00 Test Item Value Reference Range Interpretation Comments POC-GLUCOSE METER 176 mg/dL 70-110 H TESTED AT [facility] [address] (BEAKER) (test code [facility] = 1538) [place] [address] [id number] 16:46:00 Test Item Value Reference Range Interpretation Comments MAGNESIUM (BEAKER) 2.1 mg/dL 1.5-3.0 Specimen slightly (test code = 627) hemolyzed [id number] 16:46:00 Test Item Value Reference Range Interpretation Comments PHOSPHORUS (BEAKER) 2.1 mg/dL 2.5-4.5 L Specimen slightly (test code = 604) hemolyzed BASIC METABOLIC [id number] 16:46:00 Test Item Value Reference Range Interpretation Comments SODIUM (BEAKER) 134 meq/L 135-148 L (test code = 381) POTASSIUM (BEAKER) 4.4 meq/L 3.5-5.5 Specimen slightly (test code = 379) hemolyzed CHLORIDE (BEAKER) 109 meq/L 98-106 H (test code = 382) CO2 (BEAKER) (test 13 meq/L 20-31 L code = 355) BLOOD UREA NITROGEN 5 mg/dL 10-26 L (BEAKER) (test code = 354) CREATININE (BEAKER) 0.79 mg/dL 0.50-1.20 Specimen slightly (test code = 358) hemolyzed GLUCOSE RANDOM 177 mg/dL 70-110 H (BEAKER) (test code = 652) CALCIUM (BEAKER) 7.8 mg/dL 8.5-10.5 L (test code = 697) EGFR (BEAKER) (test 94 mL/min/1.73 ESTIMA PRACHI GFR IS code = 1092) sq m NOT ACCURATE CREATININE CLEARANCE IN PREDICTING GLOMERULAR FILTRATION RATE . ESTIMATED GFR I S NOT APPLICABLE FOR DIALYSIS PATIEN TS. CALCIUM, [id number] 16:21:00 Test Item Value Reference Range Interpretation Comments CALCIUM IONIZED (BEAKER) (test 1.13 mmol/L 1.12-1.27 code = 698) PH, BLOOD (BEAKER) (test code = 7.30 1810) Check serum Ionized Calcium level after 4 hours after IV Calcium replacement. POCT-GLUCOSE [id number] 16:12:00 Test Item Value Reference Range Interpretation Comments POC-GLUCOSE METER 191 mg/dL 70-110 H TESTED AT [facility] [address] (BEAKER) (test code [facility] = 1538) [place] [address] POCT-GLUCOSE [id number] 15:20:00 Test Item Value Reference Range Interpretation Comments POC-GLUCOSE METER 181 mg/dL 70-110 H TESTED AT [facility] [address] (BEAKER) (test code [facility] = 1538) [place] [address] POCT-GLUCOSE [id number] 14:15:00 Test Item Value Reference Range Interpretation Comments POC-GLUCOSE METER 169 mg/dL 70-110 H TESTED AT [facility] [address] [address] (BEAKER) ([facility] 1538[facility] [place] [address] BASIC METABOLIC [id number] 13:44:00 Test Item Value Reference Range Interpretation Comments SODIUM (BEAKER) 137 meq/L 135-148 (test code = 381) POTASSIUM (BEAKER) 3.8 meq/L 3.5-5.5 (test code = 379) CHLORIDE (BEAKER) 112 meq/L 98-106 H (test code = 382) CO2 (BEAKER) (test 13 meq/L 20-31 L code = 355) BLOOD UREA NITROGEN 7 mg/dL 10-26 L (BEAKER) (test code = 354) CREATININE (BEAKER) 0.78 mg/dL 0.50-1.20 (test code = 358) GLUCOSE RANDOM 141 mg/dL 70-110 H (BEAKER) (test code = 652) CALCIUM (BEAKER) 7.7 mg/dL 8.5-10.5 L (test code = 697) EGFR (BEAKER) (test 95 mL/min/1.73 ESTIMA PRACHI GFR IS code = 1092) sq m NOT ACCURATE CREATININE CLEARANCE IN PREDICTING GLOMERULAR FILTRATION RATE . ESTIMATED GFR I S NOT APPLICABLE FOR DIALYSIS PATIEN TS. POCT-GLUCOSE [id number] 13:24:00 Test Item Value Reference Range Interpretation Comments POC-GLUCOSE METER 157 mg/dL 70-110 H TESTED AT [facility] [address] (BEAKER) ([facility] = 1538) [place] [address] POCT-GLUCOSE [id number] 12:34:00 Test Item Value Reference Range Interpretation Comments POC-GLUCOSE METER 131 mg/dL 70-110 H TESTED AT [facility] [address] (BEAKER) (test code [employer] [facility] = 1538) [place] [address] POCT-GLUCOSE [id number] 11:39:00 Test Item Value Reference Range Interpretation Comments POC-GLUCOSE METER 160 mg/dL 70-110 H TESTED AT [facility] [address] (BEAKER) (test [facility] = 1538) [place] [address] [id number] 11:13:00 Test Item Value Reference Range Interpretation Comments PROCALCITONIN (BEAKER) (test code = < ng/mL <0.05 3036) SEPSIS RISK (ng/mL)Low: 0.05-0.50Intermediate: 0.51-2.00High: >=2.01POCT-GLUCOSE [id number] 10:40:00 Test Item Value Reference Range Interpretation Comments POC-GLUCOSE METER 202 mg/dL 70-110 H TESTED AT [facility] [address] (BEAKER) (test code [facility] = 1538) [place] [address] [id number] 10:04:00 Test Item Value Reference Range Interpretation Comments PHOSPHORUS (BEAKER) 1.4 mg/dL 2.5-4.5 LL Specimen slightly (test code = 604) hemolyzed BASIC METABOLIC [id number] 10:04:00 Test Item Value Reference Range Interpretation Comments SODIUM (BEAKER) 138 meq/L 135-148 (test code = 381) POTASSIUM (BEAKER) 4.0 meq/L 3.5-5.5 Specimen slightly (test code = 379) hemolyzed CHLORIDE (BEAKER) 113 meq/L 98-106 H (test code = 382) CO2 (BEAKER) (test 11 meq/L 20-31 L code = 355) BLOOD UREA NITROGEN 9 mg/dL 10-26 L (BEAKER) (test code = 354) CREATININE (BEAKER) 0.88 mg/dL 0.50-1.20 Specimen slightly (test code = 358) hemolyzed GLUCOSE RANDOM 224 mg/dL 70-110 H (BEAKER) (test code = 652) CALCIUM (BEAKER) 7.9 mg/dL 8.5-10.5 L (test code = 697) EGFR (BEAKER) (test 83 mL/min/1.73 ESTIMA PRACHI GFR IS code = 1092) sq m NOT ACCURATE CREATININE CLEARANCE IN PREDICTING GLOMERULAR FILTRATION RATE . ESTIMATED GFR I S NOT APPLICABLE FOR DIALYSIS PATIEN TS. [id number] 10:02:00 Test Item Value Reference Range Interpretation Comments MAGNESIUM (BEAKER) 1.8 mg/dL 1.5-3.0 Specimen slightly (test code = 627) hemolyzed POCT-GLUCOSE [id number] 09:36:00 Test Item Value Reference Range Interpretation Comments POC-GLUCOSE METER 212 mg/dL 70-110 H TESTED AT [facility] [address] ([facility]) (test code [facility] = 1538) [place] [address] POCT-GLUCOSE [id number] 08:43:00 Test Item Value Reference Range Interpretation Comments POC-GLUCOSE METER 268 mg/dL 70-110 H TESTED AT [facility] [address] ([facility]) (test code [facility] = 1538) [place] [address] [id number] 07:47:00 Test Item Value Reference Range Interpretation Comments POTASSIUM ([facility]) (test code = 4.0 meq/L 3.5-5.5 379) If last glucose was less than 500, may do bedside glucose instead of serum glucose.[id number] 07:47:00 Test Item Value Reference Range Interpretation Comments GLUCOSE RANDOM ([facility]) (test code 370 mg/dL 70-110 H = 652) If last glucose was less than 500, may do bedside glucose instead of serum glucose.POCT-GLUCOSE [id number] 07:31:00 Test Item Value Reference Range Interpretation Comments POC-GLUCOSE METER 328 mg/dL 70-110 H Notified Rosalva Jama MD/TESTED AT ([facility]) (test code [facility] [address] = 15[address]) [facility] [place] [address] POCT-GLUCOSE [id number] 07:31:00 Test Item Value Reference Range Interpretation Comments POC-GLUCOSE METER 414 mg/dL 70-110 HH TESTED AT [facility] [address] ([facility]) (test code [facility] = 1538) [place] [address] [id number] 06:57:00 Test Item Value Reference Range Interpretation Comments POTASSIUM ([facility]) (test code = 4.5 meq/L 3.5-5.5 379) [id number] 06:51:00 Test Item Value Reference Range Interpretation Comments GLUCOSE RANDOM ([facility]) (test code 523 mg/dL 70-110 HH = 652) If last glucose was less than 500, may do bedside glucose instead of serum glucose.URINALYSIS W/ REFLEX URINE [id number] 06:29:00 Test Item Value Reference Range Interpretation Comments COLOR (BEAKER) (test code = 470) Colorless CLARITY (BEAKER) (test code = 469) Hazy SPECIFIC GRAVITY UA (BEAKER) (test 1.022 1.001-1.035 code = 468) PH UA (BEAKER) (test code = 467) 5.0 5.0-8.0 PROTEIN UA (BEAKER) (test code = Negative Negative 464) GLUCOSE UA (BEAKER) (test code = >500 mg/dL Negative A 365) KETONES UA (BEAKER) (test code = 80 mg/dL Negative A 371) BILIRUBIN UA (BEAKER) (test code = Negative Negative 462) BLOOD UA (BEAKER) (test code = Large Negative A 461) NITRITE UA (BEAKER) (test code = Negative Negative 465) LEUKOCYTE ESTERASE UA (BEAKER) Negative Negative (test code = 466) UROBILINOGEN UA (BEAKER) (test < mg/dL 0.2-1.0 code = 463) RBC UA (BEAKER) (test code = 519) 170 /HPF WBC UA (BEAKER) (test code = 520) 27 /HPF MUCUS (BEAKER) (test code = 1574) Rare SOURCE(BEAKER) (test code = 2795) RAPID INFLUENZA A&B [id number] 06:13:00 Test Item Value Reference Range Interpretation Comments RAPID INFLUENZA A AG (BEAKER) (test Negative Negative code = 1622) RAPID INFLUENZA B AG (BEAKER) (test Negative Negative code = 1623) SCREEN, [id number] 05:58:00 Test Item Value Reference Range Interpretation Comments TEST URINE (BEAKER) (test Negative code = 583) RAD, CHEST, 1 VIEW, NON [id number] 05:52:00Reason for exam:->EMESISReason for exam:->BLOOD SUGAR PROBLEMShould this be performed at the bedside?- >YesIs the patient ?->NoFINAL REPORT Comparison examination: 04/07/2017 No pneumothorax, focal pulmonary consolidation, or significant pleural effusion. Normal cardiomediastinal contours. Normal skeleton and soft tissues. Impression: No acute abnormality. Signed: Joesph Foyort Verified Date/Time: 05/18/2017 05:52:18 Reading Location: [address] Transitional Reading Room HEMOGLOBIN [id number] 05:49:00 Test Item Value Reference Range Interpretation Comments HEMOGLOBIN A1C (BEAKER) (test code = 13.2 % 4.3-6.1 H 368) BASIC METABOLIC [id number] 05:28:00 Test Item Value Reference Range Interpretation Comments SODIUM (BEAKER) 132 meq/L 135-148 L (test code = 381) POTASSIUM (BEAKER) 4.4 meq/L 3.5-5.5 (test code = 379) CHLORIDE (BEAKER) 101 meq/L 98-106 (test code = 382) CO2 (BEAKER) (test 8 meq/L 20-31 LL code = 355) BLOOD UREA NITROGEN 12 mg/dL 10-26 (BEAKER) (test code = 354) CREATININE (BEAKER) 1.29 mg/dL 0.50-1.20 H (test code = 358) GLUCOSE RANDOM 622 mg/dL 70-110 HH (BEAKER) (test code = 652) CALCIUM (BEAKER) 8.7 mg/dL 8.5-10.5 (test code = 697) EGFR (BEAKER) (test 53 mL/min/1.73 ESTIMA PRACHI GFR IS code = 1092) sq m NOT ACCURATE CREATININE CLEARANCE IN PREDICTING GLOMERULAR FILTRATION RATE . ESTIMATED GFR I S NOT APPLICABLE FOR DIALYSIS PATIEN TS. If last glucose was less than 500, may do bedside glucose instead of serum glucose.HEPATIC FUNCTION [id number] 05:27:00 Test Item Value Reference Range Interpretation Comments TOTAL PROTEIN (BEAKER) (test code = 7.9 gm/dL 6.0-8.5 770) ALBUMIN (BEAKER) (test code = 1145) 4.1 g/dL 3.5-5.0 BILIRUBIN TOTAL (BEAKER) (test code 0.4 mg/dL 0.1-1.3 = 377) BILIRUBIN DIRECT (BEAKER) (test 0.2 mg/dL 0.0-0.5 code = 706) ALKALINE PHOSPHATASE (BEAKER) (test 136 U/L 30-115 H code = 346) AST (SGOT) (BEAKER) (test code = 11 U/L 5-40 353) ALT (SGPT) (BEAKER) (test code = 10 U/L 6-50 347) If last glucose was less than 500, may do bedside glucose instead of serum glucose.Specimen slightlylipemicBLOOD GAS, [id number] 05:04:00 Test Item Value Reference Range Interpretation Comments PH VENOUS (BEAKER) (test code = 7.17 7.32-7.42 LL 701) PCO2 VENOUS (BEAKER) (test code 30 mmHg 41-51 L = 755) PO2 VENOUS (BEAKER) (test code = 35 mmHg 25-40 702) O2 SATURATION VENOUS (BEAKER) 53.6 % 40.0-70.0 (test code = 703) HCO3 VENOUS (BEAKER) (test code 11 mmol/L 21-29 L = 705) BASE EXCESS VENOUS (BEAKER) -16.5 mmol/L -2.0-3.0 L (test code = 704) PATIENT TEMPERATURE (BEAKER) 36.9 C (test code = 1818) FIO2 (BEAKER) (test code = 1819) 21.0 % KETONE, [id number] 05:03:00 Test Item Value Reference Range Interpretation Comments KETONES, BLOOD (BEAKER) (test code 5.8 mmol/L <0.4 H = 1103) CBC W/PLT COUNT & AUTO [id number] 05:02:00 Test Item Value Reference Range Interpretation Comments WHITE BLOOD CELL COUNT (BEAKER) 15.3 K/ L 4.0-10.0 H (test code = 775) RED BLOOD CELL COUNT (BEAKER) 4.71 M/ L 4.00-5.00 (test code = 761) HEMOGLOBIN (BEAKER) (test code = 13.5 GM/DL 12.0-15.0 410) HEMATOCRIT (BEAKER) (test code = 40.9 % 36.0-45.0 411) MEAN CORPUSCULAR VOLUME (BEAKER) 86.8 fL 82.0-99.0 (test code = 753) MEAN CORPUSCULAR HEMOGLOBIN 28.7 pg 27.0-33.0 (BEAKER) (test code = 751) MEAN CORPUSCULAR HEMOGLOBIN CONC 33.1 GM/DL 32.0-36.0 (BEAKER) (test code = 752) RED CELL DISTRIBUTION WIDTH 12.3 % 12.0-15.0 (BEAKER) (test code = 412) PLATELET COUNT (BEAKER) (test 382 K/CU MM 150-430 code = 756) MEAN PLATELET VOLUME (BEAKER) 7.7 fL 6.5-10.5 (test code = 754) NUCLEATED RED BLOOD CELLS 0 /100 WBC 0-0 (BEAKER) (test code = 413) NEUTROPHILS RELATIVE PERCENT 73 % (BEAKER) (test code = 429) LYMPHOCYTES RELATIVE PERCENT 21 % (BEAKER) (test code = 430) MONOCYTES RELATIVE PERCENT 5 % (BEAKER) (test code = 431) EOSINOPHILS RELATIVE PERCENT 1 % (BEAKER) (test code = 432) BASOPHILS RELATIVE PERCENT 0 % (BEAKER) (test code = 437) NEUTROPHILS ABSOLUTE COUNT 11.20 K/ L 1.80-8.00 H (BEAKER) (test code = 670) LYMPHOCYTES ABSOLUTE COUNT 3.30 K/ L 1.48-4.50 (BEAKER) (test code = 414) MONOCYTES ABSOLUTE COUNT (BEAKER) 0.70 K/ L 0.00-1.30 (test code = 415) EOSINOPHILS ABSOLUTE COUNT 0.10 K/ L 0.00-0.50 (BEAKER) (test code = 416) BASOPHILS ABSOLUTE COUNT (BEAKER) 0.00 K/ L 0.00-0.20 (test code = 417) POCT-GLUCOSE [id number] 04:49:00 Test Item Value Reference Range Interpretation Comments POC-GLUCOSE METER > mg/dL 70-110 HH OUTSIDE ME ASURING (BEAKER) (test code RANGETES PRACHI AT [facility] [address] = 1538) [facility] [address] BLOOD [id number] 00:00:00 Test Item Value Reference Range Interpretation Comments CULTURE (BEAKER) (test No growth in 5 days code = 1095) BLOOD [id number] 00:00:00 Test Item Value Reference Range Interpretation Comments CULTURE (BEAKER) (test No growth in 5 days code = 1095) URINE [id number] 15:21:00 Test Item Value Reference Range Interpretation Comments CULTURE (BEAKER) (test >100,000 col/mL skin code = 1095) christophe POCT-GLUCOSE [id number] 14:37:00 Test Item Value Reference Range Interpretation Comments POC-GLUCOSE METER 326 mg/dL 70-110 H TESTED AT [facility] 67 (BEAKER) (test code = SHARATH Blackwell [place] 1538) [address] POCT-GLUCOSE [id number] 13:26:00 Test Item Value Reference Range Interpretation Comments POC-GLUCOSE METER 331 mg/dL 70-110 H TESTED AT [facility] 6720 (BEAKER) (test code = SHARATH Blackwell [place] 1538) [address] CBC W/PLT COUNT & AUTO [id number] 11:34:00 Test Item Value Reference Range Interpretation Comments WHITE BLOOD CELL COUNT (BEAKER) 5.9 K/ L 3.5-10.5 (test code = 775) RED BLOOD CELL COUNT (BEAKER) 4.15 M/ L 3.93-5.22 (test code = 761) HEMOGLOBIN (BEAKER) (test code = 11.7 GM/DL 11.2-15.7 410) HEMATOCRIT (BEAKER) (test code = 34.9 % 34.1-44.9 411) MEAN CORPUSCULAR VOLUME (BEAKER) 84.1 fL 79.4-94.8 (test code = 753) MEAN CORPUSCULAR HEMOGLOBIN 28.2 pg 25.6-32.2 (BEAKER) (test code = 751) MEAN CORPUSCULAR HEMOGLOBIN CONC 33.5 GM/DL 32.2-35.5 (BEAKER) (test code = 752) RED CELL DISTRIBUTION WIDTH 12.8 % 11.7-14.4 (BEAKER) (test code = 412) PLATELET COUNT (BEAKER) (test 272 K/CU MM 150-450 code = 756) MEAN PLATELET VOLUME (BEAKER) 9.5 fL 9.4-12.3 (test code = 754) NUCLEATED RED BLOOD CELLS 0 /100 WBC 0-0 (BEAKER) (test code = 413) NEUTROPHILS RELATIVE PERCENT 44 % (BEAKER) (test code = 429) LYMPHOCYTES RELATIVE PERCENT 47 % (BEAKER) (test code = 430) MONOCYTES RELATIVE PERCENT 6 % (BEAKER) (test code = 431) EOSINOPHILS RELATIVE PERCENT 2 % (BEAKER) (test code = 432) BASOPHILS RELATIVE PERCENT 1 % (BEAKER) (test code = 437) NEUTROPHILS ABSOLUTE COUNT 2.61 K/ L 1.56-6.13 (BEAKER) (test code = 670) LYMPHOCYTES ABSOLUTE COUNT 2.79 K/ L 1.18-3.74 (BEAKER) (test code = 414) MONOCYTES ABSOLUTE COUNT (BEAKER) 0.33 K/ L 0.24-0.36 (test code = 415) EOSINOPHILS ABSOLUTE COUNT 0.10 K/ L 0.04-0.36 (BEAKER) (test code = 416) BASOPHILS ABSOLUTE COUNT (BEAKER) 0.04 K/ L 0.01-0.08 (test code = 417) IMMATURE GRANULOCYTES-RELATIVE 0 % 0-1 PERCENT (BEAKER) (test code = 2801) (MANUAL DIFFERENTIAL)2017-04-09 11:34:00 Test Item Value Reference Range Interpretation Comments TOTAL COUNTED (AKER) (test code = 1351) POCT-GLUCOSE [id number] 11:18:00 Test Item Value Reference Range Interpretation Comments POC-GLUCOSE METER 349 mg/dL 70-110 H TESTED AT [place] [address] ([facility]) (test code = [facility] 1538) [address] POCT-GLUCOSE [id number] 09:34:00 Test Item Value Reference Range Interpretation Comments POC-GLUCOSE METER 61 mg/dL 70-110 L TESTED AT [place] [address] ([facility]) (test code = [facility] [address] 1538) POCT-GLUCOSE [id number] 08:48:00 Test Item Value Reference Range Interpretation Comments POC-GLUCOSE METER 79 mg/dL 70-110 TESTED AT [place] [address] ([facility]) (test code = [facility] [address] 1538) BASIC METABOLIC [id number] 06:12:00 Test Item Value Reference Range Interpretation Comments SODIUM (BEAKER) 135 meq/L 136-145 L (test code = 381) POTASSIUM (BEAKER) 4.7 meq/L 3.5-5.1 (test code = 379) CHLORIDE (BEAKER) 105 meq/L 98-107 (test code = 382) CO2 (BEAKER) (test 22 meq/L 22-29 code = 355) BLOOD UREA NITROGEN 11 mg/dL 7-21 (BEAKER) (test code = 354) CREATININE (BEAKER) 0.83 mg/dL 0.57-1.25 (test code = 358) GLUCOSE RANDOM 387 mg/dL 70-105 H ([facility]) (test code = 652) CALCIUM ([facility]) 8.7 mg/dL 8.4-10.2 (test code = 697) EGFR ([facility]) (test 89 mL/min/1.73 ESTIMA PRACHI GFR IS code = 1092) sq m NOT ACCURATE CREATININE CLEARANCE IN PREDICTING GLOMERULAR FILTRATION RATE . ESTIMATED GFR I S NOT APPLICABLE FOR DIALYSIS PATIEN TS. KETONE, [id number] 05:43:00 Test Item Value Reference Range Interpretation Comments KETONES, BLOOD ([facility]) (test code 0.1 mmol/L <0.4 = 1103) POCT-GLUCOSE [id number] 05:39:00 Test Item Value Reference Range Interpretation Comments POC-GLUCOSE METER 366 mg/dL 70-110 H TESTED AT [place] [address] ([facility]) (test code = [place] [place] 1538) [address] POCT-GLUCOSE [id number] 22:32:00 Test Item Value Reference Range Interpretation Comments POC-GLUCOSE METER 302 mg/dL 70-110 H TESTED AT [place] [address] ([facility]) (test code = [facility] [place] 1538) [address] POCT-GLUCOSE [id number] 19:15:00 Test Item Value Reference Range Interpretation Comments POC-GLUCOSE METER 273 mg/dL 70-110 H TESTED AT [place] [address] ([facility]) (test code = [employer] [place] 1538) [address] POCT-GLUCOSE [id number] 17:49:00 Test Item Value Reference Range Interpretation Comments POC-GLUCOSE METER 174 mg/dL 70-110 H TESTED AT [place] [address] ([facility]) (test code = [employer] [place] 1538) [address] POCT-GLUCOSE [id number] 17:02:00 Test Item Value Reference Range Interpretation Comments POC-GLUCOSE METER 171 mg/dL 70-110 H TESTED AT [place] [address] ([facility]) (test code = [facility] [place] 1538) [address] POCT-GLUCOSE [id number] 15:17:00 Test Item Value Reference Range Interpretation Comments POC-GLUCOSE METER 135 mg/dL 70-110 H TESTED AT [place] [address] ([facility]) (test code = SHARATH Blackwell [facility] 1538) [address] POCT-GLUCOSE [id number] 13:10:00 Test Item Value Reference Range Interpretation Comments POC-GLUCOSE METER 61 mg/dL 70-110 L TESTED AT [facility] 6720 ([facility]) (test code = SHARATH Blackwell [facility] [address] 1538) POCT-GLUCOSE [id number] 11:21:00 Test Item Value Reference Range Interpretation Comments POC-GLUCOSE METER 57 mg/dL 70-110 L Notified R Evita DAVIS/TESTED AT ([facility]) (test code = [address] [address]) [facility] [address] POCT-GLUCOSE [id number] 08:02:00 Test Item Value Reference Range Interpretation Comments POC-GLUCOSE METER 68 mg/dL 70-110 L Notified Rosalva Jama MD/TESTED AT ([facility]) (test code = [address] 1538) [facility] [address] CBC W/PLT COUNT & AUTO [id number] 08:02:00 Test Item Value Reference Range Interpretation Comments WHITE BLOOD CELL COUNT (BEAKER) 6.6 K/ L 3.5-10.5 (test code = 775) RED BLOOD CELL COUNT (BEAKER) 3.97 M/ L 3.93-5.22 (test code = 761) HEMOGLOBIN (BEAKER) (test code = 11.2 GM/DL 11.2-15.7 410) HEMATOCRIT (BEAKER) (test code = 33.2 % 34.1-44.9 L 411) MEAN CORPUSCULAR VOLUME (BEAKER) 83.6 fL 79.4-94.8 (test code = 753) MEAN CORPUSCULAR HEMOGLOBIN 28.2 pg 25.6-32.2 (BEAKER) (test code = 751) MEAN CORPUSCULAR HEMOGLOBIN CONC 33.7 GM/DL 32.2-35.5 (BEAKER) (test code = 752) RED CELL DISTRIBUTION WIDTH 12.7 % 11.7-14.4 (BEAKER) (test code = 412) PLATELET COUNT (BEAKER) (test 231 K/CU MM 150-450 code = 756) MEAN PLATELET VOLUME (BEAKER) 9.5 fL 9.4-12.3 (test code = 754) NUCLEATED RED BLOOD CELLS 0 /100 WBC 0-0 (BEAKER) (test code = 413) NEUTROPHILS RELATIVE PERCENT 33 % (BEAKER) (test code = 429) LYMPHOCYTES RELATIVE PERCENT 58 % (BEAKER) (test code = 430) MONOCYTES RELATIVE PERCENT 6 % (BEAKER) (test code = 431) EOSINOPHILS RELATIVE PERCENT 2 % (BEAKER) (test code = 432) BASOPHILS RELATIVE PERCENT 1 % (BEAKER) (test code = 437) NEUTROPHILS ABSOLUTE COUNT 2.20 K/ L 1.56-6.13 (BEAKER) (test code = 670) LYMPHOCYTES ABSOLUTE COUNT 3.84 K/ L 1.18-3.74 H (BEAKER) (test code = 414) MONOCYTES ABSOLUTE COUNT (BEAKER) 0.37 K/ L 0.24-0.36 H (test code = 415) EOSINOPHILS ABSOLUTE COUNT 0.13 K/ L 0.04-0.36 (BEAKER) (test code = 416) BASOPHILS ABSOLUTE COUNT (BEAKER) 0.04 K/ L 0.01-0.08 (test code = 417) IMMATURE GRANULOCYTES-RELATIVE 0 % 0-1 PERCENT (BEAKER) (test code = 2801) POCT-GLUCOSE [id number] 06:58:00 Test Item Value Reference Range Interpretation Comments POC-GLUCOSE METER 95 mg/dL 70-110 TESTED AT [place] [address] ([facility]) (test code = [facility] [address]38) POCT-GLUCOSE [id number] 06:17:00 Test Item Value Reference Range Interpretation Comments POC-GLUCOSE METER 150 mg/dL 70-110 H TESTED AT [place] [address] ([facility]) (test code = [facility] 1538) [address] POCT-GLUCOSE [id number] 05:18:00 Test Item Value Reference Range Interpretation Comments POC-GLUCOSE METER 101 mg/dL 70-110 TESTED AT [place] [address] ([facility]) (test code = [facility] 1538) [address] POCT-GLUCOSE [id number] 05:07:00 Test Item Value Reference Range Interpretation Comments POC-GLUCOSE METER 119 mg/dL 70-110 H TESTED AT [place] [address] ([facility]) (test code = [facility] 1538) [address] BASIC METABOLIC [id number] 04:52:00 Test Item Value Reference Range Interpretation Comments SODIUM (BEAKER) 140 meq/L 136-145 (test code = 381) POTASSIUM (BEAKER) 3.8 meq/L 3.5-5.1 (test code = 379) CHLORIDE (BEAKER) 109 meq/L 98-107 H (test code = 382) CO2 (BEAKER) (test 21 meq/L 22-29 L code = 355) BLOOD UREA NITROGEN 7 mg/dL 7-21 (BEAKER) (test code = 354) CREATININE (BEAKER) 0.70 mg/dL 0.57-1.25 (test code = 358) GLUCOSE RANDOM 208 mg/dL 70-105 H (BEAKER) (test code = 652) CALCIUM (BEAKER) 8.4 mg/dL 8.4-10.2 (test code = 697) EGFR (BEAKER) (test 108 mL/min/1.73 ESTIM ATED GFR IS code = 1092) sq m NOT ACCURATE CREATININE CLEARANCE IN PREDICTING GLOMERULAR FILTRATION RATE . ESTIMATED GFR I S NOT APPLICABLE FOR DIALYSIS PATIEN TS. POCT-GLUCOSE [id number] 04:05:00 Test Item Value Reference Range Interpretation Comments POC-GLUCOSE METER 48 mg/dL 70-110 L TESTED AT [place] [address] ([facility]) (test code = SHARATH Blackwell [facility] [address]38) POCT-GLUCOSE [id number] 02:30:00 Test Item Value Reference Range Interpretation Comments POC-GLUCOSE METER 181 mg/dL 70-110 H TESTED AT [place] [address] ([facility]) (test code = SHARATH Blackwell [facility] 1538) [address] POCT-GLUCOSE [id number] 02:10:00 Test Item Value Reference Range Interpretation Comments POC-GLUCOSE METER 37 mg/dL 70-110 LL Will Repea t Test/TESTED (BEAKER) (test code = AT [address] [address]) [facility] [address] POCT-GLUCOSE [id number] 01:07:00 Test Item Value Reference Range Interpretation Comments POC-GLUCOSE METER 87 mg/dL 70-110 [facility] [place] [address] [facility] (test code = SHARATH Blackwell [facility] [address]38) BASIC METABOLIC [id number] 00:44:00 Test Item Value Reference Range Interpretation Comments SODIUM (BEAKER) 142 meq/L 136-145 (test code = 381) POTASSIUM (BEAKER) 3.6 meq/L 3.5-5.1 (test code = 379) CHLORIDE (BEAKER) 112 meq/L 98-107 H (test code = 382) CO2 (BEAKER) (test 22 meq/L 22-29 code = 355) BLOOD UREA NITROGEN 8 mg/dL 7-21 (BEAKER) (test code = 354) CREATININE (BEAKER) 0.83 mg/dL 0.57-1.25 (test code = 358) GLUCOSE RANDOM 109 mg/dL 70-105 H (BEAKER) (test code = 652) CALCIUM (BEAKER) 8.6 mg/dL 8.4-10.2 (test code = 697) EGFR (BEAKER) (test 89 mL/min/1.73 ESTIMA PRACHI GFR IS code = 1092) sq m NOT ACCURATE CREATININE CLEARANCE IN PREDICTING GLOMERULAR FILTRATION RATE . ESTIMATED GFR I S NOT APPLICABLE FOR DIALYSIS PATIEN TS. POCT-GLUCOSE [id number] 00:30:00 Test Item Value Reference Range Interpretation Comments POC-GLUCOSE METER 96 mg/dL 70-110 TESTED AT [place] [address] ([facility]) (test code = [facility] [address]38) POCT-GLUCOSE [id number] 23:54:00 Test Item Value Reference Range Interpretation Comments POC-GLUCOSE METER 91 mg/dL 70-110 TESTED AT [place] [address] ([facility]) (test code = [facility] [address]38) POCT-GLUCOSE [id number] 23:12:00 Test Item Value Reference Range Interpretation Comments POC-GLUCOSE METER 48 mg/dL 70-110 L [facility] AT [place] [address] [facility] (test code = [facility] [address] 1538) POCT-GLUCOSE [id number] 21:58:00 Test Item Value Reference Range Interpretation Comments POC-GLUCOSE METER 94 mg/dL 70-110 TESTED AT [place] [address] ([facility]) (test code = [facility] [address]38) BASIC METABOLIC [id number] 21:08:00 Test Item Value Reference Range Interpretation Comments SODIUM (BEAKER) 137 meq/L 136-145 (test code = 381) POTASSIUM (BEAKER) 3.6 meq/L 3.5-5.1 (test code = 379) CHLORIDE (BEAKER) 109 meq/L 98-107 H (test code = 382) CO2 (BEAKER) (test 18 meq/L 22-29 L code = 355) BLOOD UREA NITROGEN 6 mg/dL 7-21 L (BEAKER) (test code = 354) CREATININE (BEAKER) 0.93 mg/dL 0.57-1.25 (test code = 358) GLUCOSE RANDOM 200 mg/dL 70-105 H (BEAKER) (test code = 652) CALCIUM (BEAKER) 7.8 mg/dL 8.4-10.2 L (test code = 697) EGFR (BEAKER) (test 78 mL/min/1.73 ESTIMA PRACHI GFR IS code = 1092) sq m NOT ACCURATE CREATININE CLEARANCE IN PREDICTING GLOMERULAR FILTRATION RATE . ESTIMATED GFR I S NOT APPLICABLE FOR DIALYSIS PATIEN TS. POCT-GLUCOSE [id number] 20:57:00 Test Item Value Reference Range Interpretation Comments POC-GLUCOSE METER 165 mg/dL 70-110 H TESTED AT [facility] 6720 (BEAKER) (test code = SHARATH Blackwell [facility] 1538) [address] [id number] 20:55:00 Test Item Value Reference Range Interpretation Comments POTASSIUM (BEAKER) (test code = 3.6 meq/L 3.5-5.1 379) URINALYSIS W/ [id number] 20:40:00 Test Item Value Reference Range Interpretation Comments COLOR (BEAKER) (test code = 470) Light Yellow CLARITY (BEAKER) (test code = Clear 469) SPECIFIC GRAVITY UA (BEAKER) 1.009 1.001-1.035 (test code = 468) PH UA (BEAKER) (test code = 467) 5.5 5.0-8.0 PROTEIN UA (BEAKER) (test code = Negative Negative 464) GLUCOSE UA (BEAKER) (test code = >1000 mg/dL Negative A 365) KETONES UA (BEAKER) (test code = 60 mg/dL Negative A 371) BILIRUBIN UA (BEAKER) (test code Negative Negative = 462) BLOOD UA (BEAKER) (test code = Moderate Negative A 461) NITRITE UA (BEAKER) (test code = Negative Negative 465) LEUKOCYTE ESTERASE UA (BEAKER) Negative Negative (test code = 466) UROBILINOGEN UA (BEAKER) (test 0.2 mg/dL 0.2-1.0 code = 463) RBC UA (BEAKER) (test code = 0 /HPF 519) WBC UA (BEAKER) (test code = 1 /HPF 520) SQUAMOUS EPITHELIAL (BEAKER) 2 /HPF (test code = 516) SOURCE(BEAKER) (test code = 2795) POCT-GLUCOSE [id number] 19:59:00 Test Item Value Reference Range Interpretation Comments POC-GLUCOSE METER 282 mg/dL 70-110 H TESTED AT [facility] 6720 (BEAKER) (test code = SHARATH Blackwell [facility] 1538) [address] POCT-GLUCOSE [id number] 19:02:00 Test Item Value Reference Range Interpretation Comments POC-GLUCOSE METER 374 mg/dL 70-110 H Notified R Evita DAVIS/TESTED (BEAKER) (test code = AT [facility] [address] 0 CBC W/PLT COUNT & AUTO [id number] 18:56:00 Test Item Value Reference Range Interpretation Comments WHITE BLOOD CELL COUNT (BEAKER) 8.3 K/ L 3.5-10.5 (test code = 775) RED BLOOD CELL COUNT (BEAKER) 4.18 M/ L 3.93-5.22 (test code = 761) HEMOGLOBIN (BEAKER) (test code = 11.9 GM/DL 11.2-15.7 410) HEMATOCRIT (BEAKER) (test code = 35.0 % 34.1-44.9 411) MEAN CORPUSCULAR VOLUME (BEAKER) 83.7 fL 79.4-94.8 (test code = 753) MEAN CORPUSCULAR HEMOGLOBIN 28.5 pg 25.6-32.2 (BEAKER) (test code = 751) MEAN CORPUSCULAR HEMOGLOBIN CONC 34.0 GM/DL 32.2-35.5 (BEAKER) (test code = 752) RED CELL DISTRIBUTION WIDTH 12.7 % 11.7-14.4 (BEAKER) (test code = 412) PLATELET COUNT (BEAKER) (test 307 K/CU MM 150-450 code = 756) MEAN PLATELET VOLUME (BEAKER) 9.5 fL 9.4-12.3 (test code = 754) NUCLEATED RED BLOOD CELLS 0 /100 WBC 0-0 (BEAKER) (test code = 413) NEUTROPHILS RELATIVE PERCENT 42 % (BEAKER) (test code = 429) LYMPHOCYTES RELATIVE PERCENT 51 % (BEAKER) (test code = 430) MONOCYTES RELATIVE PERCENT 5 % (BEAKER) (test code = 431) EOSINOPHILS RELATIVE PERCENT 1 % (BEAKER) (test code = 432) BASOPHILS RELATIVE PERCENT 1 % (BEAKER) (test code = 437) NEUTROPHILS ABSOLUTE COUNT 3.52 K/ L 1.56-6.13 (BEAKER) (test code = 670) LYMPHOCYTES ABSOLUTE COUNT 4.24 K/ L 1.18-3.74 H (BEAKER) (test code = 414) MONOCYTES ABSOLUTE COUNT (BEAKER) 0.39 K/ L 0.24-0.36 H (test code = 415) EOSINOPHILS ABSOLUTE COUNT 0.09 K/ L 0.04-0.36 (BEAKER) (test code = 416) BASOPHILS ABSOLUTE COUNT (BEAKER) 0.05 K/ L 0.01-0.08 (test code = 417) IMMATURE GRANULOCYTES-RELATIVE 0 % 0-1 PERCENT (BEAKER) (test code = 2801) POCT-GLUCOSE [id number] 18:03:00 Test Item Value Reference Range Interpretation Comments POC-GLUCOSE METER 294 mg/dL 70-110 H TESTED AT [facility] 6720 (BEAKER) (test code = SHARATH Blackwell [facility] 1538) [address] HEMOGLOBIN [id number] 17:45:00 Test Item Value Reference Range Interpretation Comments HEMOGLOBIN A1C (BEAKER) (test code = 12.6 % 4.3-6.1 H 368) RAD, CHEST, 1 VIEW, NON [id number] 17:20:00Reason for exam:->sobShould this be performed at [...] IMPRESSION: No acute cardiopulmonary abnormality. Signed: Salomon Mckeonepsharron Verified Date/Time: 04/07/2017 17:20:50 Reading Location: [address] Radiology Reading Room TSH/FREE T4 IF [id number] 17:04:00 Test Item Value Reference Range Interpretation Comments THYROID STIMULATING HORMONE 0.95 uIU/mL 0.35-4.94 (BEAKER) (test code = 772) TROPONIN [id number] 16:51:00 Test Item Value Reference Range Interpretation Comments TROPONIN I (BEAKER) (test code = 397) < ng/mL 0.00-0.03 Effective 06/20/2014: Reference Range [...] renalfailure, acidosis, acute neurological disease, and persistent tachyarrhythmia.[id number] 16:45:00 Test Item Value Reference Range Interpretation Comments LIPASE (BEAKER) (test code = 749) 33 U/L 8-78 [id number] 16:45:00 Test Item Value Reference Range Interpretation Comments AMYLASE (BEAKER) (test code = 349) 66 U/L 25-125 BASIC METABOLIC [id number] 16:45:00 Test Item Value Reference Range Interpretation Comments SODIUM (BEAKER) 139 meq/L 136-145 (test code = 381) POTASSIUM (BEAKER) 3.8 meq/L 3.5-5.1 (test code = 379) CHLORIDE (BEAKER) 109 meq/L 98-107 H (test code = 382) CO2 (BEAKER) (test 23 meq/L 22-29 code = 355) BLOOD UREA NITROGEN 8 mg/dL 7-21 (BEAKER) (test code = 354) CREATININE (BEAKER) 0.72 mg/dL 0.57-1.25 (test code = 358) GLUCOSE RANDOM 125 mg/dL 70-105 H (BEAKER) (test code = 652) CALCIUM (BEAKER) 8.4 mg/dL 8.4-10.2 (test code = 697) EGFR (BEAKER) (test 104 mL/min/1.73 ESTIM ATED GFR IS code = 1092) sq m NOT ACCURATE CREATININE CLEARANCE IN PREDICTING GLOMERULAR FILTRATION RATE . ESTIMATED GFR I S NOT APPLICABLE FOR DIALYSIS PATIEN TS. LACTIC ACID, VENOUS, WHOLE [id number] 16:45:00 Test Item Value Reference Range Interpretation Comments LACTATE BLOOD VENOUS (2) (BEAKER) 1.1 mmol/L 0.5-2.2 (test code = 2872) Effective 12/05/2015: Units/Reference Range ChangeNew: 0.5-2.2 mmol/L Previous: 5-20 mg/dLKETONE, [id number] 16:41:00 Test Item Value Reference Range Interpretation Comments KETONES, BLOOD (BEAKER) (test code 2.1 mmol/L <0.4 H = 1103) BLOOD GAS, [id number] 16:27:00 Test Item Value Reference Range Interpretation Comments PH VENOUS (BEAKER) (test code = 7.36 7.32-7.42 701) PCO2 VENOUS (BEAKER) (test code = 41 mmHg 41-51 755) PO2 VENOUS (BEAKER) (test code = 18 mmHg 25-40 L 702) O2 SATURATION VENOUS (BEAKER) 26.4 % 40.0-70.0 L (test code = 703) HCO3 VENOUS (BEAKER) (test code = 23 mmol/L 21-29 705) BASE EXCESS VENOUS (BEAKER) (test -2.5 mmol/L -2.0-3.0 L code = 704) PATIENT TEMPERATURE (BEAKER) 37.0 C (test code = 1818) POCT-GLUCOSE [id number] 16:20:00 Test Item Value Reference Range Interpretation Comments POC-GLUCOSE METER 156 mg/dL 70-110 H TESTED AT [facility] 6720 (BEAKER) (test code = SHARATH HERRING 1538) [address] POCT-GLUCOSE [id number] 15:28:00 Test Item Value Reference Range Interpretation Comments POC-GLUCOSE METER 101 mg/dL 70-110 TESTED AT [facility] 6737 (TACO) (test code = [place] 2602) [address]
--- NOTE | 2020-05-19 16:40 | ER ---
Nurse's Notes [facility] Name: Salome Santacruz Age: 20 yrs Sex: Female : 2000 Arrival Date: 05/19/2020 Time: 15:27 Bed 8 Private MD: Diagnosis: Hypoglycemia, unspecified Presentation: 05/19 15:27 Chief complaint: EMS states: HYPOGLYCEMIA WHILE 12 WK PREG. Coronavirus screen: At this bp time, the client does not indicate any symptoms associated with coronavirus-19. Ebola Screen: No symptoms or risks identified at this time. Initial Sepsis Screen: Does the patient meet any 2 criteria? No. Patient's initial sepsis screen is negative. Does the patient have a suspected source of infection? No. Patient's initial sepsis screen is negative. Risk Assessment: Do you want to hurt yourself or someone else? Patient reports no desire to harm self or others. Onset of symptoms is unknown. Care prior to arrival: IV initiated. 20 GA, in the right antecubital area, Glucose check: 81. 15:27 Method Of Arrival: EMS: [facility] bp 15:27 Acuity: BRIAN 3 bp Triage Assessment: 15:29 General: Appears in no apparent distress. comfortable, Behavior is calm, cooperative, bp appropriate for age. Pain: Denies pain. EENT: No deficits noted. Neuro: No deficits noted. Cardiovascular: No deficits noted. Respiratory: No deficits noted. GI: No signs and/or symptoms were reported involving the gastrointestinal system. : No signs and/or symptoms were reported regarding the genitourinary system. Derm: No deficits noted. Musculoskeletal: No deficits noted. Historical: - Allergies: 15:29 Latex, Natural Rubber; bp 15:29 Midol; bp 15:29 Phenergan; bp 15:29 raw onions; bp - Home Meds: 15:29 Humalog 100 unit/mL Sub-Q soln 20 unit before meals [Active]; Levemir FlexTouch 100 bp unit/mL (3 mL) subcutaneous inpn [Active]; novolin 70/30 [Active]; - PMHx: 15:29 Anxiety; Depression; Diabetes - IDDM; bp - Immunization history:: Adult Immunizations up to date. - Social history:: Smoking status: Patient denies any tobacco usage or history of. - Family history:: not pertinent. - Hospitalizations: : No recent hospitalization is reported. Screenin:30 Abuse screen: Denies threats or abuse. Denies injuries from another. Nutritional bp screening: No deficits noted. Tuberculosis screening: No symptoms or risk factors identified. Fall Risk None identified. Assessment: 15:30 General: SEE TRIAGE NOTE. bp 17:02 Reassessment: PT D/C HOME AMBULATORY AFTER EATING, DX WITH HYPOGLYCEMIA. bp Vital Signs: 15:27 BP 103 / 70; Pulse 83; Resp 16; Temp 98; Pulse Ox 100% ; bp 17:02 BP 110 / 79; Pulse 83; Resp 16; Temp 98; Pulse Ox 100% ; bp ED Course: 15:27 Patient arrived in ED. bp 15:29 Triage completed. bp 15:29 Arm band placed on. bp 15:30 Patient has correct armband on for positive identification. Bed in low position. Call bp light in reach. Side rails up X2. 15:31 Maintain EMS IV. Dressing intact. Good blood return noted. Site clean \T\ dry. Gauge \T\ bp site: 20 GAUGE R AC. 15:32 Joshua Lew, RN is Primary Nurse. bp 15:32 Joe Carreon MD is Attending Physician. rn 17:02 No provider procedures requiring assistance completed. IV discontinued, intact, bp bleeding controlled, No redness/swelling at site. Pressure dressing applied. Administered Medications: No medications were administered Outcome: 16:40 Discharge ordered by . rn 17:02 Discharged to home ambulatory, with family. bp 17:02 Condition: stable 17:02 Discharge instructions given to patient, Instructed on discharge instructions, follow up and referral plans. Demonstrated understanding of instructions, follow-up care. 17:04 Patient left the ED. bp Signatures: Joe Carreon MD MD rn Peltier, Brian, VI RN bp
--- NOTE | 2020-05-19 16:40 | EDPHYS ---
Physician Documentation [facility] Name: Salome Santacruz Age: 20 yrs Sex: Female : 2000 Arrival Date: 05/19/2020 Time: 15:27 Bed 8 Private MD: ED Physician Joe Carreon HPI: 05/19 15:42 This 20 yrs old Female presents to ER via EMS with complaints of Low Blood rn Sugar. 15:42 The patient or guardian reports hypoglycemia. Onset: The symptoms/episode rn began/occurred just prior to arrival. Current symptoms: In the emergency department the patient's symptoms have improved. The patient has experienced similar episodes in the past. Reports has been having trouble with low glucose for " a while now", seen at [facility] 2 days ago, had normal U/S, and seen by OB, insulin decreased compared to pre- dosing, but today at work, a lot of customers so didn't have time to eat lunch, felt generalized weakness, glucose was in 30s for EMS, given D10 with improvement, now feels better, repeat glucose in 70s here and 80s for EMS. Reports not eating much lately due to nausea of and busy at work. . Historical: - Allergies: 15:29 Latex, Natural Rubber; bp 15:29 Midol; bp 15:29 Phenergan; bp 15:29 raw onions; bp - Home Meds: 15:29 Humalog 100 unit/mL Sub-Q soln 20 unit before meals [Active]; Levemir FlexTouch 100 bp unit/mL (3 mL) subcutaneous inpn [Active]; novolin 70/30 [Active]; - PMHx: 15:29 Anxiety; Depression; Diabetes - IDDM; bp - Immunization history:: Adult Immunizations up to date. - Social history:: Smoking status: Patient denies any tobacco usage or history of. - Family history:: not pertinent. - Hospitalizations: : No recent hospitalization is reported. ROS: 15:42 Constitutional: Negative for fever, chills, and weight loss, Cardiovascular: Negative rn for chest pain, palpitations, and edema, Respiratory: Negative for shortness of breath, cough, wheezing, and pleuritic chest pain, Abdomen/GI: Negative for abdominal pain, nausea, vomiting, diarrhea, and constipation, : Negative for injury, bleeding, discharge, and swelling, MS/Extremity: Negative for injury and deformity, Skin: Negative for injury, rash, and discoloration, Neuro: Negative for headache, weakness, numbness, tingling, and seizure. Exam: 15:42 Constitutional: This is a well developed, well nourished patient who is awake, alert, rn and in no acute distress. Head/Face: Normocephalic, atraumatic. Eyes: Normal conjunctivae Cardiovascular: Regular rate and rhythm. No pulse deficits. Respiratory: No increased work of breathing, no retractions or nasal flaring. Abdomen/GI: Soft, non-tender Skin: Warm, dry MS/ Extremity: Pulses equal, no cyanosis. Neurovascular intact. Full, normal range of motion. Equal circumference. Neuro: Awake and alert, GCS 15, oriented to person, place, time, and situation. Cranial nerves II-XII grossly intact. Motor strength 5/5 in all extremities. Sensory grossly intact. Cerebellar exam normal. Normal gait. Vital Signs: 15:27 BP 103 / 70; Pulse 83; Resp 16; Temp 98; Pulse Ox 100% ; bp 17:02 BP 110 / 79; Pulse 83; Resp 16; Temp 98; Pulse Ox 100% ; bp MDM: 15:32 Patient medically screened. rn 16:35 Differential diagnosis: hypoglycemic episode. Data reviewed: vital signs, nurses notes. rn Counseling: I had a detailed discussion with the patient and/or guardian regarding: the historical points, exam findings, and any diagnostic results supporting the discharge/admit diagnosis, the need for outpatient follow up, to return to the emergency department if symptoms worsen or persist or if there are any questions or concerns that arise at home. ED course: Pt doing well, eating, will monitor glucose, stable vitals. . 16:39 ED course: Glucose 245, will dc home with close glucose monitoring, instructions to try rn and eat regularly, and f/u with her new OB for continued glucose/diabetic management. . 05/19 16:51 Order name: Glucose, Ancillary Testing EDMS 05/19 15:49 Order name: Diet Regular; Complete Time: 15:50 bp 05/19 15:32 Order name: Glucose Level; Complete Time: 15:34 rn 05/19 15:32 Order name: PO challenge; Complete Time: 15:37 rn Administered Medications: No medications were administered Disposition: 05/19/20 16:40 Discharged to Home. Impression: Hypoglycemia, unspecified. - Condition is Stable. - Discharge Instructions: Hypoglycemia, Blood Glucose Monitoring, Adult. - Medication Reconciliation Form, Thank You Letter, Antibiotic Education, Prescription Opioid Use form. - Follow up: Private Physician; When: As needed; Reason: Recheck today's complaints, Re-evaluation by your physician. - Problem is an ongoing problem. - Symptoms have improved. Signatures: Dispatcher [employer] EDVT Joe Carreon MD MD rn Peltier, Brian, RN RN bp Corrections: (The following items were deleted from the chart) 17:04 16:40 05/19/2020 16:40 Discharged to Home. Impression: Hypoglycemia, unspecified. bp Condition is Stable. Forms are Medication Reconciliation Form, Thank You Letter, Antibiotic Education, Prescription Opioid Use. Follow up: Private Physician; When: As needed; Reason: Recheck today's complaints, Re-evaluation by your physician. Problem is an ongoing problem. Symptoms have improved. rn
[2020-05-19 17:18] VITALS: TEMP 98; O2SAT 100
[2020-05-19 17:19] VITALS: BP 110/79
== END 2020-05-19 17:04 | disposition home or self-care (01) ==
LOC: ER 15:25
DX: O26.891 Other specified pregnancy related conditions, first trimester (principal); E11.649 Type 2 diabetes mellitus with hypoglycemia without coma; F41.8 Other specified anxiety disorders; Z79.4 Long term (current) use of insulin; Z91.040 Latex allergy status; Z91.018 Allergy to other foods; Z88.8 Allergy status to other drugs, medicaments and biological substances
CPT/HCPCS: 82947; 99283

== ENCOUNTER 2020-06-17 02:37 | Emergency (ER) | payer OTHER ==
--- OUTSIDE RECORDS SUMMARY | 2020-06-17 02:40 | XMS REPORT | Clinical Summary ---
:2000 Author Organization [facility] Address [address] [place] [address] Care Team Providers Name Role Phone Tanvi Xiong MD Primary Care Provider Unavailable Allergies Active Allergy Reactions Severity Noted Date Comments Latex Rash Low 04/07/2017 Acetaminophen-Pamabrom Rash Low 04/07/2017 Bumps in mouth Onion Hives 05/18/2017 Promethazine Anxiety Low 04/07/2017 Severe anxiety attacks Tree Nut 06/17/2017 Medications Medication Sig Dispensed Refills Start End Date Status Date insulin regular (HUMULIN If SM=445-620, give 1unit 10 mL 3 Active R,NOVOLIN R) 100 unit/mL If IM=930-167, give 2units 7 injection If HS=549-877, give 4units If MH=121-182, give 6units If RD=980-695, give 8units. medroxyPROGESTERone Inject 150 mg 0 [...] Signs Not on file Plan of Treatment Health Maintenance Due Date Last Done Comments PNEUMOCOCCAL VACCINE 0-64 YRS (1 of 1 - PPSV23) 02/16/2004 DIABETIC EYE EXAM 02/16/2008 DIABETIC FOOT EXAM 02/16/2008 URINE MICROALBUMIN 02/16/2008 LIPID PANEL 2018 CERVICAL CANCER SCREENING PAP ONLY (Age 21-65) 2019 INFLUENZA VACCINE (#1) 2020 05/18/2017 Results Not on fileafter 06/17/2019 Insurance Payer Benefit Plan / Subscriber ID Effective Dates Phone Addre ss Type Group [employer] [id number] 2017-Present L Advance Directives For more information, please contact: [phone] Code Status Date Activated Date Inactivated Comments Full Code 06/17/2017 10:54 AM 06/19/2017 2:40 PM This code status was determined by: Patient Full Code 05/18/2017 7:25 AM 05/19/2017 7:18 PM This code status was determined by: Patient Full Code 04/07/2017 3:28 PM 04/09/2017 7:53 PM This code status was determined by: Patient
--- OUTSIDE RECORDS SUMMARY | 2020-06-17 02:40 | XMS REPORT | Summary of Care ---
:[address] [facility] - [facility] Address [address] [place] [address] Care Team Providers Name Role Phone Pcp, Patient Does Not Have A Primary Care Provider [phone] Reason for Referral (Routine) Status Reason Specialty Diagnoses / Referred By Referred To Procedures Contact Contact New Request OB-GYNECOLOGY Diagnoses Type 1 diabetes mellitus without complication Early stage of Marilee Kimball, Procedures Discharge Follow-Up: Specialty Service OB-GYNECOLOGY; 1 Week MATERIAL HAULER [address] [facility] [id number] [place] [address] Reason for Visit Reason Comments Headache 8 wks Neck Pain Auth/Cert Status Reason Specialty Diagnoses / Referred By Referred To Procedures Contact Contact Emergency Medicine Adc Em ergency Dept [address] [place] [address] Fax: Encounter Details Date Type Department Care Team Description 04/06/2020 Emergency ADC-Emergency Marilee Kimball, Nonintrac table headache, unspecified chronicity pattern, unspecified headache type (Primary Dx); Department MATERIAL HAULER Urinary tract infection without hematuri a, site unspecified; [address] [place] [address] 301 [facility] Type 1 nikki betes mellitus without complication; Drive [id number] Early stage of ; [place], [place] [id number] [place] [address] Nausea [phone] Allergies Active Allergy Reactions Severity Noted Date [...] disorder (ADHD) 2012 Overview: ICD10 Diagnosis Term Driller'S Offsider Utility documented as of this encounter (statuses [...] Prescriptions for zofran and keflex sent to [facility] pharmacy [place] Referral for OB follow up sent Return [...] GLU 166 (H) 70 - 110 mg/dL [facility] Specimen Blood Performing Organization Address City/State/Zipcode Phone Number [facility] CLIA: [id number] [place] [address] POCT GLUCOSE(AGE 0-30DAYS) (04/06/2020 4:40 PM CDT) Pathologist Sig nature POCT Glu (age 0-30days) 166 (A) 40 - 110 mg/dl Specimen Blood - CAPILLARY POCT TEST (04/06/2020 4:38 PM CDT) Pathologist Sig nature POCT PREG positive On board controls acceptable present with C Line POCT PREG LOT # [id number] POCT PREG TEST DATE 2021-03-02 Specimen Urine - URINE, CLEAN CATCH Urinalysis (04/06/2020 3:45 PM CDT) Pathologist Sig [facility] APPEARANCE Hazy (A) Clear [facility] COLOR Yellow Yellow [facility] PH 6.0 4.8 - 8.0 [facility] SP GRAVITY 1.016 1.003 - 1.030 [facility] GLU U QUAL 150 mg/dL (A) Normal [facility] BLOOD Negative Negative [facility] KETONES 20 mg/dL (A) Negative [facility] PROTEIN Negative Negative [facility] UROBILIN Normal Normal [facility] BILIRUBIN Negative Negative [facility] NITRITE Positive (A) Negative [facility] LEUK MANN 250/uL (A) Negative [facility] RBC/HPF 3 0 - 3 HPF [facility] WBC/HPF 37 (H) 0 - 5 HPF [facility] BACTERIA Many (A) Negative [facility] MUCOUS Slight (A) Negative LPF [facility] SQ EPITH 1 [facility] Specimen Urine - URINE, CLEAN CATCH Performing Organization Address City/State/Zipcode Phone Number [facility] CLIA: [id number] [place] [address] documented in this [...] T ype Group Dates MEDICAID MEDICAID PENDING 2020-[address] [place] [address] documented as of this encounter Advance Directives Type Date Recorded 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
--- OUTSIDE RECORDS SUMMARY | 2020-06-17 02:41 | XMS REPORT | Summary of Care ---
:2000 Author Organization [facility] Address [address] [place] [address] Care Team Providers Name Role Phone Eileen Schulte [facility] Primary Care Provider [phone] Reason for Referral (Routine) Status Reason Specialty Diagnoses / Referred By Referred To Procedures Contact Contact New Request Maternal Diagnoses Uncontrolled type 1 diabetes mellitus with hyperglycemia Eris, Medicine Procedures CONSULT/REFERRAL MATERNAL MEDICINE FACULTY/FELLOW Preferred location: [facility] Valdivia [address] [place] [address] Reason for Visit Reason Comments Initial Visit (Routine) Status Reason Specialty Diagnoses / Referred By Referred To Procedures Contact Contact New Request OB-GYNECOLOGY / Diagnoses Type 1 diabetes mellitus without complication Early stage of Marliee Kimball Gynecologic Procedures Discharge Follow-Up: Specialty Service OB-GYNECOLOGY; 1 Week G, EMPLOYMENT CASE MANAGER Oncology [address] [facility] [id number] [place] [address] Encounter Details Date Type Department Care Team Description 04/16/2020 [facility] Jesus Scuhlte vision of high risk , antepartum (Primary Dx); Visit DOMI Valdivia Multiparity; [address] Histor y of section; [facility] Uncontrolled type 1 diabetes mellitus wi th hyperglycemia; [place], [place] MIKE A Screening for viral disease; [id number] [place], [place] Nausea and vomiting during p regnancy [phone] Allergies Active Allergy Reactions Severity Noted [...] 04/16/2020 History of section 04/16/2020 Overview: At [facility] in 2016 Dyspareunia, female 05/27/2017 Chronic [...] disorder (ADHD) 2012 Overview: ICD10 Diagnosis Term Deckhand Shrimp Boat Utility Estimated Date of Delivery Comments Yes [...] Renato Huffman; Location: Labor and Delivery - [place] FACIAL LACERATION REPAIR 2003 INCISION AND DRAINAGE [...] file Gets together: Not on file Attends mosque service: Not on file Active member of [...] 04/06/2020 present POCT PREG LOT # 04/06/2020 [id number] POCT PREG TEST DA* 04/06/2020 2021-03-02 POCT [...] Plan: CONSULT/REFERRAL MATERNAL MEDICINE FACULTY/FELLOW Preferred location: [place], GLYCOSYLATED HEMOGLOBIN (A1C) Screening for viral disease [...] RUBELLA SCREEN (MAXINE) LAB Routine Supervision of [facility] h risk 04/16/2020 2:20 PM IGG [...] URINALYSIS W/O Routine 04/16/2020 12:58 Supervision of [facility] Results for this SPECIFIC GRAVITY PM CDT risk , procedur e are in antepartum the results section. POCT TEST Routine 04/16/2020 12:58 Supervision of [facility] Results for this PM CDT risk [...] ype Group Dates MEDICAID MEDICAID PENDING 2020-[address] [place] [address] documented as of this encounter Advance Directives Type Date Recorded Patient [employer] Humanities Teacher Explanati on Advance Directives and Living Will Power of Pole Peeling Machine Operator Helper Name Relationship Healthcare Agent Communication Relationship Monet (call Sibling Health Care Agent [phone] [facility]) Héctor (Mobile) Suleiman Forte Significant Other Health Care Agent Caleb Santacruz Mother [facility] [phone] Care Agent (Mobile)
--- OUTSIDE RECORDS SUMMARY | 2020-06-17 02:41 | XMS REPORT | Summary of Care ---
:2000 Author Organization [facility] Address [address] [place] [address] Care Team Providers Name Role Phone Eileen Schulte [facility] Primary Care Provider [phone] Reason for Visit Reason Comments Referral/consult Encounter Details Date Type Department Care Team Description 04/20/2020 Telephone [facility]- Eileen Schulte, Referral/consult [facility] [address] [facility] [address] [place] [address] [facility] [phone] [place], [place] [address] [phone] Allergies Active Allergy Reactions Severity Noted Date [...] 04/16/2020 History of section 04/16/2020 Overview: At [facility] in 2016 Dyspareunia, female [...] disorder (ADHD) 2012 Overview: ICD10 Diagnosis Term Ultrasonic Welding Machine Operator Utility Estimated Date of Delivery Comments Yes [...] at this time. Patient verbalized understanding. MARIE MELVIN RN 04/23/2020 1:46 PM Telephone Encounter - Katelyn Henriquez - 04/20/2020 2:49 PM CDTEalberto Santacruz is a 20 year old female Patient requesting referral for Clinical Documentation Specialist, please call patient [phone] (home) documented in this encounter Plan of [...] Addre ss Type Group TMHP MEDICAID OF [id number] 2020-Present [phone] [address] Medicaid [place] [id number] [place] [phone] documented as of this encounter Advance Directives Type Date Recorded Patient Chemist Helper Explanati on Advance Directives and Living Will Power of Stud Driver Name Relationship Healthcare Agent Communication Relationship Monet (call first) Sibling Health Care Agent [phone] Héctor (Mobile) Suleiman Forte Spouse Health Care Agent Caleb Santacruz Mother [facility] Care Agent (Mobile)
--- OUTSIDE RECORDS SUMMARY | 2020-06-17 02:41 | XMS REPORT | Summary of Care ---
:2000 Author Organization [facility] - Health Address [address] [place] [address] Care Team Providers Name Role Phone PatrickjosueDavidEileen C [facility] Primary Care Provider [phone] Encounter Details Date Type Department Care Team Description 04/16/2020 Orders Only [facility] Doctor Unassigned, No [address] [facility] [place] [address] [address] [place] [address] Allergies Active Allergy Reactions Severity Noted Date [...] disorder (ADHD) 2012 Overview: ICD10 Diagnosis Term [facility] Director Utility documented as of this encounter (statuses [...] OB Satellites Terrance Schulte, CNP [address] [place] [address] [phone] Health Maintenance Due Date Last Done Comments [...] T ype Group Dates MEDICAID MEDICAID PENDING 2020-[address] [place] [address] documented as of this encounter Advance Directives Type Date Recorded Patient Rn Chemical Dependency Explanati on Advance Directives and Living Will Power of Financial Associate Name Relationship Healthcare Agent Communication Relationship Monet (call Sibling Health Care Agent [phone] first) Héctor (Mobile) Suleiman Forte Significant Other Health Care Agent Caleb Santacruz Mother First [facility] [phone] Care Agent (Mobile)
--- OUTSIDE RECORDS SUMMARY | 2020-06-17 02:42 | XMS REPORT | Summary of Care ---
:2000 Author Organization [facility] Address [address] [place] [address] Care Team Providers Name Role Phone Eileen Schulte [facility] Primary Care Provider [phone] Reason for Visit Reason Comments ULTRASOUND (THIEN) Status Reason Specialty Diagnoses / Referred By Referred To Procedures Contact Contact Closed Maternal Diagnoses Supervision of high risk , antepartum Dorinda Li, Medicine Procedures CONSULT MATERNAL MEDICINE ULTRASOUND Preferred Location: Mckenzie DAVIS [address] [address] Encounter Details Date Type Department Care Team Description 05/10/2020 Commissions Manager Visit [facility] Sethi, Thompson Uteri ne size-date discrepancy in first trimester; Ultrasound- Mckenzie Bar MD Previous delivery, antepartum c ondition or complication [address] [facility] [address] [place] [id number] [place], [place] [phone] Allergies Active Allergy Reactions Severity Noted [...] 0 05/08/2020 Active (TRUE METRIX GLUCOSE METER) [facility] blood sugar Patient to check 1 Box 5 05/08/2020 Active diagnostic (TRUE blood sugar four METRIX GLUCOSE TEST times daily STRIP) strip Lancets [facility] Patient to check 100 Each 5 05/08/2020 [...] 04/16/2020 History of section 04/16/2020 Overview: At [facility] in 2016 Dyspareunia, female 05/27/2017 Chronic insomnia [...] disorder (ADHD) 2012 Overview: ICD10 Diagnosis Term Principal Cloud Architect Utility Estimated Date of Delivery Comments Yes [...] Phone Addre ss Type Group [place] [facility] [place] CH[facility]DR[facility] [id number] 2020-Present Medicaid HEALTH PLAN - HEALTH MANAGED MEDICAID documented as of this encounter Advance Directives Type Date Recorded Patient Utility Mechanic Explanati on Advance Directives and Living Will Power of Clinical Project Manager Name Relationship Healthcare Agent Communication Relationship Monet (call first) Sibling Health Care Agent [phone] Héctor (Mobile) Suleiman Forte Spouse Health Care Agent Calebbrodie Santacruz [facility] [phone] Care Agent (Mobile)
--- OUTSIDE RECORDS SUMMARY | 2020-06-17 02:42 | XMS REPORT | Summary of Care ---
:2000 Author Organization [facility] Address [address] [place] [address] Care Team Providers Name Role Phone Eileen Schulte Primary Care Provider Reason for Visit Reason Comments Rx Concern/Question problem with Rx Assessment RETURN PHONE CALL Encounter Details Date Type Department Care Team Description 05/07[facility]2020 [facility] Rx Concern/Question DOMI Chaudhary (problem with Rx); [address] [facility] Assessment (RETURN Street MIKE A PHONE CALL) [place], [place] [phone] Allergies Active Allergy Reactions Severity Noted Date [...] disorder (ADHD) 2012 Overview: ICD10 Diagnosis Term Manager Professional Development Utility Estimated Date of Delivery Comments Yes [...] know what she needs to do. [facility] - [place], [place] - [address] [...] Dates Phone Addre ss Type Group [place] [facility] [place] CHILDRENS [id number] 2020-Present Medicaid HEALTH PLAN - HEALTH MANAGED MEDICAID documented as of this encounter Advance Directives Type Date Recorded Patient Straw Hat Brim Raiser Operator Explanati on Advance Directives and Living Will Power of Driver Education Road Instructor Name Relationship Healthcare Agent Communication Relationship Monet (call first) Sibling Health Care Agent Héctor (Mobile) Suleiman Hoskinsno Spouse Health Care Agent Calebbrodie Santacruz Mother First [facility] Care Agent (Mobile)
--- OUTSIDE RECORDS SUMMARY | 2020-06-17 02:42 | XMS REPORT | Summary of Care ---
:2000 Author Organization [facility] Address [address] [place] [address] Care Team Providers Name Role Phone Eileen Schulte [facility] Primary Care Provider Reason for Referral (THIEN) Status Reason Specialty Diagnoses / Referred By Referred To Procedures Contact Contact New Request Maternal Diagnoses Supervision of high risk , antepartum Dorinda Li Medicine Procedures CONSULT MATERNAL MEDICINE ULTRASOUND Preferred Location: Mckenzie Narayan MD [address] [place] [address] (Routine) Status Reason Specialty Diagnoses / Referred By Referred To Procedures Contact Contact New Request Pediatric Diagnoses Supervision of high risk , antepartum Dorinda Li Genetics Procedures CONSULT GENETICS MD Sylvain [address] [place], [place] [phone] (Routine) Status Reason Specialty Diagnoses / Referred By Referred To Procedures Contact Contact New Request Ophthalmology Diagnoses Supervision of high risk , antepartum Dorinda Li Procedures CONSULT OPHTHALMOLOGY MD Sylvain [address] [place], [place] [phone] Reason for Visit Reason Comments Consult (Routine) Status Reason Specialty Diagnoses / Referred By Referred To Procedures Contact Contact New Request Maternal Diagnoses Uncontrolled type 1 diabetes mellitus with hyperglycemia Eris Medicine Procedures CONSULT/REFERRAL MATERNAL MEDICINE FACULTY/FELLOW Preferred location: Mitchell Eileen Chisholm, [facility] [address] [place] [address] Encounter Details Date Type Department Care Team Description 05/07/2020 Telemedicine Visit [facility] Nitesh Li MD [id number] [place] [address] Supervision of [facility] Faculty, [facility] risk , [address] (Primary Street Dx) [place] [address] Allergies Active Allergy Reactions Severity [...] 04/16/2020 History of section 04/16/2020 Overview: At [facility] in 2016 Dyspareunia, female 05/27/2017 [...] disorder (ADHD) 2012 Overview: ICD10 Diagnosis Term Stabber Utility Estimated Date of Delivery Comments Yes [...] not have regular follow up with an correspondence specialist. Sugars not controlled. MEDICATIONS: Current Outpatient Medications [...] 2 mg 0 Blood-Glucose Meter (PRECISION XTRA) [facility] To be used with blood ketone strips. [...] multiple insulin regimens, does not have an correspondence specialist - currently managing it by herself, on [...] Effective Dates Phone Addre ss Type Group [place] [facility] [place] CHILDRENS [id number] 2020-Present Medicaid HEALTH PLAN - HEALTH MANAGED MEDICAID documented as of this encounter Advance Directives Type Date Recorded Patient Ramp Flight Attendant Explanati on Advance Directives and Living Will Power of Fireperson Name Relationship Healthcare Agent Communication Relationship Monet (call first) Sibling Health Care Agent Héctor (Mobile) Suleiman Forte Spouse Health Care Agent Caleb Santacruz [facility] [phone] Care Agent (Mobile)
--- OUTSIDE RECORDS SUMMARY | 2020-06-17 02:42 | XMS REPORT | Summary of Care ---
:2000 Author Organization [facility] Address [address] [place] [address] Care Team Providers Name Role Phone Eileen Schulte [facility] Primary Care Provider [phone] Reason for Visit Reason Comments Assessment Encounter Details Date Type Department Care Team Description 05/16/2020 Telephone [facility]- A Eileen Mabry, Assessment [address] [place] [address] [phone] [place], [place] [address] [phone] Allergies Active Allergy Reactions Severity Noted Date [...] 0 05/08/2020 Active (TRUE METRIX GLUCOSE METER) [facility] blood sugar Patient to check 1 Box 5 05/08/2020 Active diagnostic (TRUE blood sugar four METRIX GLUCOSE TEST times daily STRIP) strip Lancets [facility] Patient to check 100 Each 5 05/08/2020 [...] 04/16/2020 History of section 04/16/2020 Overview: At [facility] in 2016 Dyspareunia, female 05/27/2017 Chronic insomnia [...] disorder (ADHD) 2012 Overview: ICD10 Diagnosis Term Developer Evangelist Utility Estimated Date of Delivery Comments Yes [...] the nearest ER immediately or to a [facility] hospital. Patient verbalized understanding. 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
--- OUTSIDE RECORDS SUMMARY | 2020-06-17 02:43 | XMS REPORT | Summary of Care ---
:2000 Author Organization [facility] Address [address] [place] [address] Care Team Providers Name Role Phone Eileen Schulte [facility] Primary Care Provider [phone] Reason for Visit Reason Comments Chest Pain Shortness of Breath Auth/Cert Status Reason Specialty Diagnoses / Referred By Referred To Procedures Contact Contact Emergency Medicine Adc Em ergency Dept [address] [facility] [place] [address] Fax: Encounter Details Date Type Department Care Team Description 05/16/2020 Emergency ADC-Emergency Sameer Altamirano, DO Hyperglycemia (Primary Dx); Department [address] [place] [address]. Palpitations [address] [facility] [address] [place] [address] [place] [phone] Allergies Active Allergy Reactions Severity Noted Date [...] 05/08/2020 Active (TRUE METRIX GLUCOSE METER) [facility] blood sugar Patient to check 1 Box 5 05/08/2020 Active diagnostic (TRUE blood sugar four METRIX GLUCOSE TEST times daily STRIP) strip Lancets [facility] Patient to check 100 Each 5 05/08/2020 [...] 04/16/2020 History of section 04/16/2020 Overview: At [facility] in 2016 Dyspareunia, female 05/27/2017 Chronic [...] disorder (ADHD) 2012 Overview: ICD10 Diagnosis Term Chief Engineer Utility Estimated Date of Delivery Comments Yes [...] TODAY: IV fluids Insulin YOUR PRESCRIPTIONS AND [id number] MEDICATION RECOMMENDATIONS: None SPECIAL CARE INSTRUCTIONS: None FOLLOW-UP RECOMMENDATIONS: RECOMMEND FOLLOW-UP WITH A PRIMARY CARE PROVIDER OR SPECIALIST IN 2-5 DAYS, ESPECIALLY IF NO IMPROVEMENT IN SYMPTOMS. TO FOLLOW-UP WITHIN THE [facility], TRY THESE OPTIONS (CLINIC APPOINTMENTS AVAILABLE ON EOBE-IO-KARE BASIS): 1. SCHEDULE AN APPOINTMENT ONLINE AT WWW.[facility] 2. OR CALL THE [facility] AT OR 3. OR CALL YOUR [facility] PHYSICIAN'S OFFICE DIRECTLY IF YOU ARE ALREADY AN ESTABLISHED [facility] PATIENT. OR, YOU MAY FOLLOW-UP WITH A PROVIDER OF YOUR CHOICE, SUCH : 1. A PHYSICIAN OF YOUR CHOICE 2. [facility], . LOCATIONS IN [facility] 3. [facility], [address], [place]; [phone] RETURN TO ER FOR WORSENING OF SYMPTOMS. AttachmentsThe following attachments cannot be sent through Care Everywhere. Hyperglycemia (High Blood Sugar) (Citizen Of [place])Chest Pain, Noncardiac ([place]izen [place]) documented in this encounter ED Notes Radha [...] 70 - 110 mg/dL COMP. METABOLIC PANEL ([id number]) Collection Time: 05/16/20 5:38 PM Result Value [...] 05/16/2020 5:17 PM CDT EMERGENCY DEPARTMENT ENCOUNTER [facility] Patient Name: Saolme Santacruz Date of : 2000 20 year [...] Procedure Laterality Date SECTION N/A 01/30/2016 Surgeon: Renaot Huffman; Location: Labor and Delivery - [place] FACIAL LACERATION REPAIR 2003 INCISION AND DRAINAGE [...] the past 24 hour(s)) COMP. METABOLIC PANEL ([id number]) Collection Time: 05/16/20 5:38 PM Result Value [...] Placed This Encounter Procedures COMP. METABOLIC PANEL ([id number]) CBC WITH DIFF URINALYSIS URIC ACID VBG+VCOOX+NA+K+GLU+CA2+ [...] Patient to administer insulin twice daily LANCETS [facility] Patient to check blood sugar four times [...] 05/16/2020 5:38 Hyperglycemia Results for this PANEL ([id number]) PM CDT procedure are in the results [...] GLU 387 (H) 70 - 110 mg/dL [facility] Specimen Blood Performing Organization Address City/State/Zipcode Phone Number [facility] CLIA: [id number] [place] [address] URINALYSIS (05/16/2020 5:51 PM CDT) Pathologist Sig nature APPEARANCE Clear Clear [facility] COLOR Straw (A) Yellow [facility] PH 7.0 4.8 - 8.0 [facility] SP GRAVITY 1.030 1.003 - 1.030 [facility] GLU U QUAL 500 mg/dL (A) Normal [facility] BLOOD Negative Negative [facility] KETONES Negative Negative [facility] PROTEIN Negative Negative [facility] UROBILIN Normal Normal [facility] BILIRUBIN Negative Negative [facility] NITRITE Negative Negative [facility] LEUK MANN Negative Negative [facility] RBC/HPF 2 0 - 3 HPF [facility] WBC/HPF 1 0 - 5 HPF [facility] BACTERIA Few (A) Negative [facility] SQ EPITH 1 HPF [facility] Specimen Urine - URINE, CLEAN CATCH Performing Organization Address [place]/[facility] Phone Number [facility] CLIA: [id number] [place] [address] COVID-19 (ID NOW RAPID TESTING) (05/16/2020 5:40 PM CDT) SARS-CoV-2 Rapid ID Not Detected Not Detected [facility] Specimen Swab - NASOPHARYNGEAL SWAB Narrative Performed At ID NOW COVID-19 Assay is an isothermal nucleic [facility] acid amplification test intended for the qualitative detection of nucleic acid from SARS-CoV-2 viral RNA in nasopharyngeal (MUSICAL PERFORMER) specimens. It is used under Emergency Use [...] testing if clinically indicated. Performing Organization Address City/[facility]/Zipcode Phone Number [facility] CLIA: [id number] [place] [address] [place] [address] D-DIMER (05/16/2020 5:39 PM CDT) [facility] D-DIMER 0.29 <0.41 g/mL (FEU) [facility] Specimen Blood - VENOUS Narrative Performed At This test may be used in conjunction with a [facility] clinical pretest probability (PTP) assessment [...] in forming a diagnosis. Performing Organization Address [place]/[facility] Cent[facility] Phone Number [facility] CLIA: [id number] [place] [address] [place] [address] TROPONIN I (05/16/2020 5:38 PM CDT) [facility] TROPONIN I <0.012 <=0.034 ng/mL [facility] Specimen Blood - VENOUS Narrative Performed At Equal or Less than 0.034 ng/ml---Normal [facility] Note: Cardiac troponin begins to [...] patient's use of biotin. Performing Organization Address City/[facility]/Zipcode Phone Number [facility] CLIA: [id number] [place], [place] [id number] LABORATORY [address] VBG+VCOOX+NA+K+GLU+CA2+ (05/16/2020 5:38 PM CDT) Pathologist Sig nature PH 7.35 7.32 - 7.42 [facility] PCO2 JAIDA 43 41 - 51 mmHg [facility] PO2 JAIDA 31 25 - 40 mmHg [facility] HCO3 JAIDA 23 (L) 24 - 28 mEq/L [facility] AC VBE(BEAKER) -2.6 mEq/L [facility] THB JAIDA 13.1 12.0 - 16.0 g/dL [facility] %O2HB JAIDA 60.0 52.0 - 63.0 % [facility] %COHB JAIDA 1.5 0.0 - 1.5 % [facility] %METHB JAIDA 0.3 (L) 0.4 - 1.5 % [facility] VOL%O2 JAIDA 11.0 6.0 - 12.0 % [facility] NA 132 (L) 135 - 145 mmol/L [facility] K+ 4.0 3.5 - 5.0 mmol/L [facility] AC CA IONZ 4.50 4.50 - 5.30 mg/dL [facility] GLUCOSE 471 (HH) 70 - 110 mg/dL [facility] Specimen Blood - VENOUS Performing Organization Address City/[facility]/Zipcode Phone Number [facility] CLIA: [id number] [place] [address] URIC ACID (05/16/2020 5:38 PM CDT) Pathologist Sig nature URIC ACID 2.8 (L) 2.9 - 6.0 mg/dL [facility] Specimen Blood - VENOUS Performing Organization Address City/[facility]/Zipcode Phone Number [facility] CLIA: [id number] [place], [place] [phone] LABORATORY [address] CBC WITH DIFF (05/16/2020 5:38 PM CDT) [facility] WBC 9.54 4.30 - 11.10 [facility] 10*3/L HOSPITAL LABORATORY RBC 4.26 3.93 - 5.25 [facility] 10*6/L [facility] HGB 12.1 11.6 - 15.0 [facility] g/dL [facility] HCT 35.8 35.7 - 45.2 % [facility] MCV 84.0 80.6 - 95.5 fL [facility] MCH 28.4 25.9 - 32.8 pg [facility] MCHC 33.8 31.6 - 35.1 [facility] g/dL [facility] RDW-SD 38.6 (L) 39.0 - 49.9 fL [facility] RDW-CV 12.9 12.0 - 15.5 % [facility] PLT 341 166 - 358 [facility] 10*3/L [facility] MPV 9.6 9.5 - 12.9 fL [facility] NRBC/100 WBC 0.0 0.0 - 10.0 /100 [facility] WBCs [facility] NRBC x10^3 <0.01 10*3/L [facility] GRAN MAT (NEUT) % 66.5 % [facility] IMM GRAN % 0.50 % [facility] LYMPH % 26.3 % [facility] MONO % 4.9 % [facility] EOS % 1.5 % [facility] BASO % 0.3 % [facility] GRAN MAT x10^3(ANC) 6.34 1.88 - 7.09 [facility] 10*3/uL HOSPITAL LABORATORY IMM GRAN x10^3 0.05 0.00 - 0.06 [facility] 10*3/uL HOSPITAL LAB[facility]ORY LYMPH x10^3 2.51 1.32 - 3.29 [facility] 10*3/uL HOSPITAL LABORATORY MONO x10^3 0.47 0.33 - 0.92 [facility] 10*3/uL HOSPITAL LABORATORY EOS x10^3 0.14 0.03 - 0.39 [facility] 10*3/uL [facility] BASO x10^3 0.03 0.01 - 0.07 [facility] 10*3/uL [facility] Specimen Blood - VENOUS Performing Organization Address City/State/Zipcode Phone Number [facility] CLIA: [id number] [place] [address] COMP. METABOLIC PANEL ([id number]) (05/16/2020 5:38 PM CDT) [facility] NA 132 (L) 135 - 145 [facility] mmol/L [facility] K 3.9 3.5 - 5.0 [facility] mmol/L [facility] CL 99 98 - 108 mmol/L [facility] CO2 TOTAL 24 23 - 31 mmol/L [facility] AGAP 9 2 - 16 [facility] BUN 8 7 - 23 mg/dL [facility] GLUCOSE 430 (H) 70 - 110 mg/dL [facility] CREATININE 0.51 0.50 - 1.04 [facility] mg/dL [facility] TOTAL BILI 0.3 0.1 - 1.1 mg/dL [facility] CALCIUM 8.9 8.6 - 10.6 [facility] mg/dL [facility] T PROTEIN 6.6 6.3 - 8.2 g/dL [facility] ALBUMIN 3.7 3.5 - 5.0 g/dL [facility] ALK PHOS 52 34 - 122 U/L [facility] ALTv 9 5 - 35 U/L [facility] AST(SGOT) 14 13 - 40 U/L [facility] eGFR Calculation 150.8 mL/min/1.73m2 [facility] ([facility]ORATORY [place]) eGFR Calculation 182.8 mL/min/1.73m2 [facility] () [facility] Specimen Blood - VENOUS Narrative Performed At Association of Glomerular Filtration Rate (GFR) [facility] and Staging of Kidney [...] tests). Performing Organization Address City/State/Zipcode Phone Number [facility] CLIA: [id number] [place] [address] POCT GLUCOSE (AUTOMATED) (05/16/2020 5:26 PM CDT) [facility] POCT GLU 442 (H) 70 - 110 mg/dL [facility] Specimen Blood Performing Organization Address City/[facility]/Zipcode Phone Number [facility] CLIA: [id number] [place] [address] documented in this [...] Effective Dates Phone Addre ss Type Group [facility] [id number] 2020-Present Medicaid HEALTH PLAN - HEALTH MANAGED MEDICAID documented as of this encounter Advance Directives Type Date Recorded Patient Certified Credit Counselor Explanati on Advance Directives and Living Will Power of Provider Enrollment Specialist Name Relationship Healthcare Agent Communication Relationship Monet (call first) Sibling Health Care Agent Héctor (Mobile) Suleiman Forte Spouse Health Care Agent Caleb Santacruz Mother First [facility] Care Agent (Mobile)
--- OUTSIDE RECORDS SUMMARY | 2020-06-17 02:43 | XMS REPORT | Summary of Care ---
:2000 Author Organization [facility] Address [address] [place] [id number] Care Team Providers Name Role Phone Eileen Schulte [facility] Primary Care Provider [phone] Reason for Referral (Routine) Status Reason Specialty Diagnoses / Referred By Referred To Procedures Contact Contact New Request Maternal Diagnoses Uncontrolled type 1 diabetes mellitus with hyperglycemia History of section Crystal Menard Medicine Procedures CONSULT MATERNAL MEDICINE ULTRASOUND Preferred Location: [facility] [address] [id number] (Routine) Status Reason Specialty Diagnoses / Referred By Referred To Procedures Contact Contact New Request Psychiatry Diagnoses Supervision of high risk , antepartum History of bipolar disorder Crystal Menard, Procedures CONSULT/REFERRAL PSYCHIATRY ADULT [address] [facility] Reason for Visit Reason Comments ROUTINE VISIT Encounter Details Date Type Department Care Team Description 05/17/2020 Routine [facility] [address] [facility] [place] [place] [address] [phone] Uncontrolled type 1 diabetes mellitus wi th hyperglycemia (Primary Dx); Visit Fei QuezadaRmchp-Np/High Supervision of high risk , ante ; [address] History o f bipolar disorder; [place] [address] Allergies Active Allergy Reactions Severity Noted [...] 0 05/08/2020 Active (TRUE METRIX GLUCOSE METER) [facility] blood sugar Patient to check [address] 05/08/2020 Active diagnostic (TRUE blood sugar four METRIX GLUCOSE TEST times daily STRIP) strip Lancets [facility] Patient to check 100 Each 5 05/08/2020 [...] 04/16/2020 History of section 04/16/2020 Overview: At [facility] in 2016 Dyspareunia, female 05/27/2017 Chronic [...] disorder (ADHD) 2012 Overview: ICD10 Diagnosis Term Director [employer] Estimated Date of Delivery Comments Yes [...] [place]; Location: Labor and Delivery - JS Dewart FACIAL LACERATION REPAIR 2003 INCISION AND DRAINAGE [...] file Gets together: Not on file Attends jehovah's witness service: Not on file Active member of [...] Plan: CONSULT MATERNAL MEDICINE ULTRASOUND Preferred Location: 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
--- OUTSIDE RECORDS SUMMARY | 2020-06-17 02:45 | XMS REPORT | Continuity of Care Document ---
:2000 Author Organization [facility] t Address [address] [place] [address] Care Team Providers Name Role Phone Inga DAVIS, A Primary Care Physician Unavailable Singer HERNANDEZ Attending Clinician Faculty, [facility] Mf Attending Clinician Unavailable Doctor Unassigned, Name Attending Clinician Unavailable TRINITY CRAWLEY Attending Clinician Unavailable STANISLAW HODGES Attending Clinician Unavailable TRENTON CHACON Attending Clinician Unavailable LEOBARDO HANSEN Admitting Clinician Unavailable CECY, JORGE LUIS Admitting Clinician Unavailable TRENTON CHACON Admitting Clinician [...] DKA, type DKA, type Disease [facility] Nausea Nausea Disease Active [facility] Allergies, Adverse Reactions, Alerts Allergy Allergy Status Severity Reaction(s) Onset Inactive Treating Comm ents Source Name Type Date Date Clinician Tree Nut Propensi Active 2016-[address] [facility] [facility] to 15 [facility] - adverse 00:00: Medical reaction 00 Center s Onion Propensi Active Hives 2016-[address] [facility] to 016 [facility] - adverse 00:00: Medical reaction 00 Center s Latex Propensi Active Rash [facility]07 [facility] - adverse 00:00: Medical reaction 00 [place] [facility] Acetamin Propensi Active Rash Bumps in [facility] ophen-Pa ty to 04-07 mouth [facility] - [facility] adverse 00:00: Medical reaction 00 [place] Prometha Propensi Active Anxiety Severe [facility] to 04-07 anxiety [facility] - adverse 00:00: attacks Medical reaction 00 [place] [facility] Social History Social Habit Start Date Stop Date Quantity Comments Source Sex Assigned At [facility] Tobacco use and 2017-06-17 2017-06-17 Never used [facility] - exposure 00:00:00 00:00:00 [facility] Alcohol intake 2017-06-17 2017-06-17 Current [facility] - 00:00:00 00:00:00 non-drinker of Medical nter alcohol (finding) History of 2016-06-18 Current smoker [facility] - tobacco use 00:00:00 Medical Cente r Smoking Status Start Date Stop Date Source Former smoker 2017-06-17 00:00:00 2017-06-17 00:00:00 [facility] Medications Ordered Filled Start Stop Current Ordering Indication Dosage Frequency Signature Comments Components Source Medication Medication Date Date Medication? Clinician (SIG) Name Name medroxyPROG 2016-08 Yes 150mg Inject 150 [facility] ESTERone -17 contracepti mg [facility] - (DEPO-PROVE 12:40: on intramuscu Medical RA) 150 09 larly Center mg/mL every 3 injection (three) months. sertraline 2016-08 Yes anxiety 50mg QD Take [address] (ZOLOFT) 50 1-17 with by mouth [facility] - MG tablet 12:40: depression daily. Medical 09 Center traZODone 2016-08 Yes insomnia 50mg QD Take [address] (DESYREL) 1-17 associated by mouth [facility] - 50 MG 12:40: with nightly. Medical tablet 09 depression Center ondansetron 2016-08 Yes 4mg Take [address] (ZOFRAN-ODT 1-17 by mouth [facility] - ) 4 [...] InPn insulin Yes If [facility] regular - SJ=200-262 [facility] - (HUMULIN 00:00: , give Medical R,NOVOLIN 00 1unitIf Center R) 100 YH=710-426 unit/mL , give injection 2unitsIf LQ=601-283 , give 4unitsIf EZ=276-643 , give 6unitsIf RT=349-475 , give 8units. Immunizations Ordered Immunization Filled Immunization Date Status Commen ts Source Name Name Influenza Three-TIV 2017-05-18 [facility] 5[facility]00 [facility] Center Procedures This patient has no known procedures. Plan of Care Planned Activity Planned Date Details Comments Source Future Scheduled 2020-04-03 INFLUENZA VACCINE (#1) [facility] Test 00:00:00 [code = INFLUENZA Medical Ce nter VACCINE (#1)] Future Scheduled [address] [facility] - Test 00:00:00 malignant neoplasm of Medica l Center cervix (procedure) [code = 383279343] Future Scheduled [address] [facility] - Test 00:00:00 (procedure) [code = Medical Center 78699777] Future Scheduled 2008-02-[address] DIABETIC EYE EXAM [facility] - Test 00:00:00 [code = DIABETIC EYE Medical Center EXAM] Future Scheduled 2008-02-[address] [facility] - Test 00:00:00 examination Medical Center (regime/therapy) [code = 927362456] Future Scheduled 2008-02-16 Urine screening [facility] - Test 00:00:00 protein (procedure) Medical Center [code = 475026520] Future Scheduled 2004-02-[address] [facility] - Test 00:00:00 0-64 YRS (1 of 1 - Medical C enter PPSV23) [code = PNEUMOCOCCAL VACCINE 0-64 YRS (1 of 1 - PPSV23)] Encounters Start End Encounter Admission Attending Care Care Encounter Source Date/Time Date/Time Type Type Clinicians Facility Department ID 2020-06-13 2020-06-13 Emergency [place], [facility] [id number] 13:56:00 15:42:00 Sameer Rincon [id number] [place] [id number] [place] [id number] 2020-06-11 2020-06-11 Routine Faculty, [facility] [id number] 09:37:31 10:48:32 Harvey chp [employer]ENDER SERVER [id number] Visit [facility] [id number] MATERNAL [id number] & CHILD [address] [place] [address] 2020-06-11 2020-06-11 Orders Doctor VIDYA [id number] 00:00:00 00:00:00 Only Unassigned, MARIA ELENA [id number] [facility] [id number] [id number] 2020-06-04 2020-06-05 Telemedici Faculty, [facility] [id number] 08:18:00 14:22:03 ne Visit Ang Rmchp [employer]ENDER SERVER [id number] [facility] [id number] MATERNAL [id number] & CHILD [address] [place] [address] Results Test Description Test Time Test Comments Results Result Comments Source US PELVIC 2018-03-16 CLINICAL (TRANSVAGINAL ONLY) 14:02:32 INDICATION: R10.2 Pelvic and perineal painTECHNIQUE:Real- time and doppler transvaginal ultrasound evaluation of the pelvis was performed on the Opara Preirus.Comparison study: No prior study.FINDINGS:Uter us: 8.2 [...] Test Item Value Reference Range Interpretation Comme nts POC-GLUCOSE METER ([employer]) (test 230 mg/dL 70-110 H TESTED AT [facility] [address] [facility] code = 1538) [facility] [address] POCT-GLUCOSE [id number] 08:32:00 Test Item Value Reference Range Interpretation Comments POC-GLUCOSE METER 70 mg/dL 70-110 TESTED AT [facility] [address] ([facility]) (test code = [employer] [facility] 1538) [place] [address] POCT-GLUCOSE [id number] 05:13:00 Test Item Value Reference Range Interpretation Comments POC-GLUCOSE METER 152 mg/dL 70-110 H TESTED AT [facility] [address] ([facility]) (test code [employer] [facility] = 1538) [place] [address] POCT-GLUCOSE [id number] 04:14:00 Test Item Value Reference Range Interpretation Comments POC-GLUCOSE METER 55 mg/dL 70-110 L TESTED AT [facility] [address] ([facility]) (test code = [facility] 1538) [place] [address] POCT-GLUCOSE [id number] 20:37:00 Test Item Value Reference Range Interpretation Comments POC-GLUCOSE METER 204 mg/dL 70-110 H TESTED AT [facility] [address] (BEAKER) (test code [facility] = 1538) [place] [address] POCT-GLUCOSE [id number] 19:01:00 Test Item Value Reference Range Interpretation Comments POC-GLUCOSE METER 88 mg/dL 70-110 TESTED AT [facility] [address] (BEAKER) (test code = [facility] 1538) [place] [address] POCT-GLUCOSE [id number] 17:27:00 Test Item Value Reference Range Interpretation Comments POC-GLUCOSE METER 253 mg/dL 70-110 H TESTED AT [facility] [address] (BEAKER) ([facility] 1538) [place] [address] POCT-GLUCOSE [id number] 15:36:00 Test Item Value Reference Range Interpretation Comments POC-GLUCOSE METER 366 mg/dL 70-110 H TESTED AT [facility] [address] (BEAKER) (test code [facility] = 1538) [place] [address] POCT-GLUCOSE [id number] 11:51:00 Test Item Value Reference Range Interpretation Comments POC-GLUCOSE METER 194 mg/dL 70-110 H TESTED AT [facility] [address] (BEAKER) (test code [facility] = 1538) [place] [address] POCT-GLUCOSE [id number] 10:19:00 Test Item Value Reference Range Interpretation Comments POC-GLUCOSE METER 147 mg/dL 70-110 H TESTED AT [facility] [address] (BEAKER) ([facility] 1538) [place] [address] BASIC METABOLIC [id number] 09:23:00 Test Item Value Reference Range Interpretation [...] NOT APPLICABLE FOR DIALYSIS PATIEN TS. POCT-GLUCOSE [id number] 08:02:00 Test Item Value Reference Range Interpretation Comments POC-GLUCOSE METER 161 mg/dL 70-110 H TESTED AT [facility] [address] (BEAKER) (test code [facility] = 1538) [place] [address] POCT-GLUCOSE [id number] 07:03:00 Test Item Value Reference Range Interpretation Comments POC-GLUCOSE METER 151 mg/dL 70-110 H TESTED AT [facility] [address] (BEAKER) (test code [facility] = 1538) [place] [address] POCT-GLUCOSE [id number] 05:08:00 Test Item Value Reference Range Interpretation Comments POC-GLUCOSE METER 158 mg/dL 70-110 H TESTED AT [facility] [address] (BEAKER) (test code [facility] = 1538) [place] [address] BASIC METABOLIC [id number] 04:51:00 Test Item Value Reference Range Interpretation [...] NOT APPLICABLE FOR DIALYSIS PATIEN TS. POCT-GLUCOSE [id number] 03:03:00 Test Item Value Reference Range Interpretation Comments POC-GLUCOSE METER 153 mg/dL 70-110 H TESTED AT [facility] [address] (BEAKER) (test code [facility] = 1538) [place] [address] POCT-GLUCOSE [id number] 02:09:00 Test Item Value Reference Range Interpretation Comments POC-GLUCOSE METER 159 mg/dL 70-110 H TESTED AT [facility] [address] (BEAKER) (test code [facility] = 1538) [place] [address] POCT-GLUCOSE [id number] 01:08:00 Test Item Value Reference Range Interpretation Comments POC-GLUCOSE METER 174 mg/dL 70-110 H TESTED AT [facility] [address] (BEAKER) (test code [facility] = 1538) [place] [address] BASIC METABOLIC [id number] 00:38:00 Test Item Value Reference Range Interpretation [...] NOT APPLICABLE FOR DIALYSIS PATIEN TS. POCT-GLUCOSE [id number] 00:37:00 Test Item Value Reference Range Interpretation Comments POC-GLUCOSE METER 198 mg/dL 70-110 H TESTED AT [facility] [address] ([facility]) (test code [facility] = 1538) [place] [address] POCT-GLUCOSE [id number] 00:14:00 Test Item Value Reference Range Interpretation Comments POC-GLUCOSE METER 162 mg/dL 70-110 H TESTED AT [facility] [address] ([facility]) (test code [facility] = 1538) [place] [address] POCT-GLUCOSE [id number] 23:39:00 Test Item Value Reference Range Interpretation Comments POC-GLUCOSE METER 149 mg/dL 70-110 H TESTED AT [facility] [address] ([facility]) (test code [facility] = 1538) [place] [address] POCT-GLUCOSE [id number] 23:10:00 Test Item Value Reference Range Interpretation Comments POC-GLUCOSE METER 134 mg/dL 70-110 H TESTED AT [address] ([facility]) (test code [facility] = 1538) [place] [address] POCT-GLUCOSE [id number] 22:41:00 Test Item Value Reference Range Interpretation Comments POC-GLUCOSE METER 112 mg/dL 70-110 H TESTED AT [facility] [address] ([facility]) (test code [facility] = 1538) [place] [address] POCT-GLUCOSE [id number] 21:59:00 Test Item Value Reference Range Interpretation Comments POC-GLUCOSE METER 95 mg/dL 70-110 TESTED AT [facility] [address] ([facility]) (test code = [facility] 1538) [place] [address] POCT-GLUCOSE [id number] 21:39:00 Test Item Value Reference Range Interpretation Comments POC-GLUCOSE METER 110 mg/dL 70-110 TESTED AT [facility] [address] ([facility]) (test code [employer] [facility] = 1538) [place] [address] POCT-GLUCOSE [id number] 21:07:00 Test Item Value Reference Range Interpretation Comments POC-GLUCOSE METER 114 mg/dL 70-110 H TESTED AT [address] (BEAKER) (test code [facility] = 1538) [place] [address] BASIC METABOLIC [id number] 20:47:00 Test Item Value Reference Range Interpretation [...] NOT APPLICABLE FOR DIALYSIS PATIEN TS. POCT-GLUCOSE [id number] 20:17:00 Test Item Value Reference Range Interpretation Comments POC-GLUCOSE METER 176 mg/dL 70-110 H TESTED AT [facility] [address] (BEAKER) (test code [facility] = 1538) [place] [address] [id number] 19:09:00 Test Item Value Reference Range Interpretation Comments GLUCOSE RANDOM (BEAKER) (test code 230 mg/dL 70-110 H = 652) If last glucose was less than 500, may do bedside glucose instead of serum glucose.POCT-GLUCOSE [id number] 18:53:00 Test Item Value Reference Range Interpretation Comments POC-GLUCOSE METER 212 mg/dL 70-110 H TESTED AT [facility] [address] (BEAKER) (test code [facility] = 1538) [place] [address] POCT-GLUCOSE [id number] 17:14:00 Test Item Value Reference Range Interpretation Comments POC-GLUCOSE METER 145 mg/dL 70-110 H TESTED AT [facility] [address] (BEAKER) (test code [facility] = 1538) [place] [address] BASIC METABOLIC [id number] 16:51:00 Test Item Value Reference Range Interpretation [...] may do bedside glucose instead of serum glucose.[id number] 16:47:00 Test Item Value Reference Range Interpretation Comments GLUCOSE RANDOM (BEAKER) (test code 126 mg/dL 70-110 H = 652) If last glucose was less than 500, may do bedside glucose instead of serum glucose.POCT-GLUCOSE [id number] 16:04:00 Test Item Value Reference Range Interpretation Comments POC-GLUCOSE METER 119 mg/dL 70-110 H TESTED AT [facility] [address] (BEAKER) (test code [facility] = 1538) [place] [address] [id number] 14:30:00 Test Item Value Reference Range Interpretation Comments POTASSIUM (BEAKER) (test code = 3.9 meq/L 3.5-5.5 379) If last glucose was less than 500, may do bedside glucose instead of serum glucose.[id number] 14:30:00 Test Item Value Reference Range Interpretation Comments GLUCOSE RANDOM (BEAKER) (test code 190 mg/dL 70-110 H = 652) If last glucose was less than 500, may do bedside glucose instead of serum glucose.POCT-GLUCOSE [id number] 14:05:00 Test Item Value Reference Range Interpretation Comments POC-GLUCOSE METER 194 mg/dL 70-110 H TESTED AT [facility] [address] (BEAKER) (test code [facility] = 1538) [place] [address] POCT-GLUCOSE [id number] 13:15:00 Test Item Value Reference Range Interpretation Comments POC-GLUCOSE METER 229 mg/dL 70-110 H TESTED AT [facility] [address] (BEAKER) (test code [facility] = 1538) [place] [address] BASIC METABOLIC [id number] 12:44:00 Test Item Value Reference Range Interpretation [...] may do bedside glucose instead of serum glucose.[id number] 12:43:00 Test Item Value Reference Range Interpretation Comments GLUCOSE RANDOM (BEAKER) (test code 258 mg/dL 70-110 H = 652) If last glucose was less than 500, may do bedside glucose instead of serum glucose.POCT-GLUCOSE [id number] 12:03:00 Test Item Value Reference Range Interpretation Comments POC-GLUCOSE METER 238 mg/dL 70-110 H TESTED AT [facility] [address] (BEAKER) (test code [facility] = 1538) [place] [address] POCT-GLUCOSE [id number] 11:05:00 Test Item Value Reference Range Interpretation Comments POC-GLUCOSE METER 261 mg/dL 70-110 H TESTED AT [facility] [address] ([facility]) (test code [facility] = 1538) [place] [address] HEMOGLOBIN [id number] 10:07:00 Test Item Value Reference Range Interpretation Comments HEMOGLOBIN A1C ([facility]) (test code = > % 4.3-6.1 H 368) [id number] 10:00:00 Test Item Value Reference Range Interpretation Comments GLUCOSE RANDOM ([facility]) (test code 441 mg/dL 70-110 HH = 652) If last glucose was less than 500, may do bedside glucose instead of serum glucose.[id number] 09:55:00 Test Item Value Reference Range Interpretation Comments POTASSIUM ([facility]) (test code = 4.1 meq/L 3.5-5.5 379) If last glucose was less than 500, may do bedside glucose instead of serum glucose.POCT-GLUCOSE [id number] 09:18:00 Test Item Value Reference Range Interpretation Comments POC-GLUCOSE METER > mg/dL 70-110 HH OUTSIDE ME ASURING ([facility]) (test code RANGETES PRACHI AT [facility] [address] = 1538) [facility] [address] [id number] 09:15:00 Test Item Value Reference Range Interpretation Comments GLUCOSE RANDOM ([facility]) (test code 585 mg/dL 70-110 HH = 652) If last glucose was less than 500, may do bedside glucose instead of serum glucose.COMPREHENSIVE METABOLIC [id number] 08:30:00 Test Item Value Reference Range Interpretation Comments TOTAL PROTEIN 8.2 gm/dL 6.0-8.5 (BEAKER) (test code = 770) ALBUMIN (BEAKER) 4.5 g/dL 3.5-5.0 (test code = 1145) ALKALINE PHOSPHATASE 135 U/L 30-115 H (AKER) (test code = 346) BILIRUBIN TOTAL 0.3 [...] PATIEN TS. CBC W/PLT COUNT & AUTO [id number] 08:29:00 Test Item Value Reference Range Interpretation [...] K/ L 0.00-0.20 (test code = 417) [id number] 08:25:00 Test Item Value Reference Range Interpretation Comments PHOSPHORUS (BEAKER) (test code = 4.0 mg/dL 2.5-4.5 604) [id number] 08:25:00 Test Item Value Reference Range Interpretation Comments MAGNESIUM (BEAKER) (test code = 2.0 mg/dL 1.5-3.0 627) SCREEN, [id number] 08:16:00 Test Item Value Reference Range Interpretation Comments TEST URINE (BEAKER) (test Negative code = 583) URINALYSIS W/ [id number] 08:16:00 Test Item Value Reference Range Interpretation [...] Rare SOURCE(BEAKER) (test code = 2795) KETONE, [id number] 08:09:00 Test Item Value Reference Range Interpretation Comments KETONES, BLOOD (BEAKER) (test code 6.1 mmol/L <0.4 H = 1103) PH, [id number] 08:08:00 Test Item Value Reference Range Interpretation Comments PH VENOUS (BEAKER) (test code = 701) 7.18 7.32-7.42 LL BLOOD [id number] 13:00:00 Test Item Value Reference Range Interpretation Comments CULTURE (BEAKER) (test No growth in 5 days code = 1095) BLOOD [id number] 13:00:00 Test Item Value Reference Range Interpretation Comments CULTURE (BEAKER) (test No growth in 5 days code = 1095) POCT-GLUCOSE [id number] 17:12:00 Test Item Value Reference Range Interpretation Comments POC-GLUCOSE METER 136 mg/dL 70-110 H TESTED AT [facility] [address] (BEAKER) (test code [facility] = 1538) [place] [address] POCT-GLUCOSE [id number] 16:37:00 Test Item Value Reference Range Interpretation Comments POC-GLUCOSE METER 45 mg/dL 70-110 L TESTED AT [facility] [address] (BEAKER) (test code = [facility] 1538) [place] [address] POCT-GLUCOSE [id number] 11:32:00 Test Item Value Reference Range Interpretation Comments POC-GLUCOSE METER 98 mg/dL 70-110 TESTED AT [facility] [address] (BEAKER) (test code = [facility] 1538) [place] [address] POCT-GLUCOSE [id number] 06:45:00 Test Item Value Reference Range Interpretation Comments POC-GLUCOSE METER 85 mg/dL 70-110 TESTED AT [facility] [address] (BEAKER) (test code = [facility] 1538) [place] [address] [id number] 06:25:00 Test Item Value Reference Range Interpretation Comments PHOSPHORUS (BEAKER) (test code = 2.4 mg/dL 2.5-4.5 L 604) [id number] 06:25:00 Test Item Value Reference Range Interpretation Comments MAGNESIUM (BEAKER) (test code = 2.4 mg/dL 1.5-3.0 627) BASIC METABOLIC [id number] 06:25:00 Test Item Value Reference Range Interpretation [...] PATIEN TS. CBC W/PLT COUNT & AUTO [id number] 05:58:00 Test Item Value Reference Range Interpretation [...] L 0.00-0.20 (test code = 417) POCT-GLUCOSE [id number] 05:38:00 Test Item Value Reference Range Interpretation Comments POC-GLUCOSE METER 102 mg/dL 70-110 TESTED AT [facility] [address] (BEAKER) (test code [facility] = 1538) [place] [address] POCT-GLUCOSE [id number] 03:29:00 Test Item Value Reference Range Interpretation Comments POC-GLUCOSE METER 163 mg/dL 70-110 H TESTED AT [facility] [address] (BEAKER) (test code [facility] = 1538) [place] [address] POCT-GLUCOSE [id number] 03:29:00 Test Item Value Reference Range Interpretation Comments POC-GLUCOSE METER 155 mg/dL 70-110 H TESTED AT [facility] [address] (BEAKER) (test code [facility] = 1538) [place] [address] BASIC METABOLIC [id number] 01:42:00 Test Item Value Reference Range Interpretation [...] S NOT APPLICABLE FOR DIALYSIS PATIEN TS. [id number] 01:39:00 Test Item Value Reference Range Interpretation Comments PHOSPHORUS (BEAKER) (test code = 2.1 mg/dL 2.5-4.5 L 604) [id number] 01:39:00 Test Item Value Reference Range Interpretation Comments MAGNESIUM (BEAKER) (test code = 2.0 mg/dL 1.5-3.0 627) POCT-GLUCOSE [id number] 01:19:00 Test Item Value Reference Range Interpretation Comments POC-GLUCOSE METER 152 mg/dL 70-110 H TESTED AT [facility] [address] (BEAKER) (test code [facility] = 1538) [place] [address] POCT-GLUCOSE [id number] 01:07:00 Test Item Value Reference Range Interpretation Comments POC-GLUCOSE METER 145 mg/dL 70-110 H TESTED AT [facility] [address] (BEAKER) (test code [facility] = 1538) [place] [address] POCT-GLUCOSE [id number] 01:07:00 Test Item Value Reference Range Interpretation Comments POC-GLUCOSE METER 165 mg/dL 70-110 H TESTED AT [facility] [address] (BEAKER) (test code [facility] = 1538) [place] [address] POCT-GLUCOSE [id number] 01:07:00 Test Item Value Reference Range Interpretation Comments POC-GLUCOSE METER 163 mg/dL 70-110 H TESTED AT [facility] [address] (BEAKER) (test code [facility] = 1538) [place] [address] BASIC METABOLIC [id number] 20:59:00 Test Item Value Reference Range Interpretation [...] S NOT APPLICABLE FOR DIALYSIS PATIEN TS. [id number] 20:58:00 Test Item Value Reference Range Interpretation Comments MAGNESIUM (BEAKER) 1.8 mg/dL 1.5-3.0 Specimen slightly (test code = 627) hemolyzed [id number] 20:58:00 Test Item Value Reference Range Interpretation Comments PHOSPHORUS (BEAKER) 2.2 mg/dL 2.5-4.5 L Specimen slightly (test code = 604) hemolyzed POCT-GLUCOSE [id number] 18:02:00 Test Item Value Reference Range Interpretation Comments POC-GLUCOSE METER 176 mg/dL 70-110 H TESTED AT [facility] [address] (BEAKER) (test code [facility] = 1538) [place] [address] [id number] 16:46:00 Test Item Value Reference Range Interpretation Comments MAGNESIUM (BEAKER) 2.1 mg/dL 1.5-3.0 Specimen slightly (test code = 627) hemolyzed [id number] 16:46:00 Test Item Value Reference Range Interpretation Comments PHOSPHORUS (BEAKER) 2.1 mg/dL 2.5-4.5 L Specimen slightly (test code = 604) hemolyzed BASIC METABOLIC [id number] 16:46:00 Test Item Value Reference Range Interpretation [...] NOT APPLICABLE FOR DIALYSIS PATIEN TS. CALCIUM, [id number] 16:21:00 Test Item Value Reference Range Interpretation Comments CALCIUM IONIZED (BEAKER) (test 1.13 mmol/L 1.12-1.27 code = 698) PH, BLOOD (BEAKER) (test code = 7.30 1810) Check serum Ionized Calcium level after 4 hours after IV Calcium replacement. POCT-GLUCOSE [id number] 16:12:00 Test Item Value Reference Range Interpretation Comments POC-GLUCOSE METER 191 mg/dL 70-110 H TESTED AT [facility] [address] (BEAKER) (test code [facility] = 1538) [place] [address] POCT-GLUCOSE [id number] 15:20:00 Test Item Value Reference Range Interpretation Comments POC-GLUCOSE METER 181 mg/dL 70-110 H TESTED AT [facility] [address] (BEAKER) (test code [facility] = 1538) [place] [address] POCT-GLUCOSE [id number] 14:15:00 Test Item Value Reference Range Interpretation Comments POC-GLUCOSE METER 169 mg/dL 70-110 H TESTED AT [facility] [address] (BEAKER) (test code [facility] = 1538) [place] [address] BASIC METABOLIC [id number] 13:44:00 Test Item Value Reference Range Interpretation [...] NOT APPLICABLE FOR DIALYSIS PATIEN TS. POCT-GLUCOSE [id number] 13:24:00 Test Item Value Reference Range Interpretation Comments POC-GLUCOSE METER 157 mg/dL 70-110 H TESTED AT [facility] [address] (BEAKER) (test code [facility] = 1538) [place] [address] POCT-GLUCOSE [id number] 12:34:00 Test Item Value Reference Range Interpretation Comments POC-GLUCOSE METER 131 mg/dL 70-110 H TESTED AT [facility] [address] (BEAKER) (test code [facility] = 1538) [place] [address] POCT-GLUCOSE [id number] 11:39:00 Test Item Value Reference Range Interpretation Comments POC-GLUCOSE METER 160 mg/dL 70-110 H TESTED AT [facility] [address] ([facility]) (test code [facility] = 1538) [place] [address] [id number] 11:13:00 Test Item Value Reference Range Interpretation Comments PROCALCITONIN (BEAKER) (test code = < ng/mL <0.05 3036) SEPSIS RISK (ng/mL)Low: 0.05-0.50Intermediate: 0.51-2.00High: >=2.01POCT-GLUCOSE [id number] 10:40:00 Test Item Value Reference Range Interpretation Comments POC-GLUCOSE METER 202 mg/dL 70-110 H TESTED AT [facility] [address] ([facility]) (test code [facility] = 1538) [place] [address] [id number] 10:04:00 Test Item Value Reference Range Interpretation Comments PHOSPHORUS (BEAKER) 1.4 mg/dL 2.5-4.5 LL Specimen slightly (test code = 604) hemolyzed BASIC METABOLIC [id number] 10:04:00 Test Item Value Reference Range Interpretation [...] hemolyzed GLUCOSE RANDOM 224 mg/dL 70-110 H ([facility]) (test code = 652) CALCIUM (BEAKER) 7.9 mg/dL 8.5-10.5 L (test code = 697) EGFR ([facility]) (test 83 mL/min/1.73 ESTIMA PRACHI GFR IS code = 1092) sq m NOT ACCURATE CREATININE CLEARANCE IN PREDICTING GLOMERULAR FILTRATION RATE . ESTIMATED GFR I S NOT APPLICABLE FOR DIALYSIS PATIEN TS. [id number] 10:02:00 Test Item Value Reference Range Interpretation Comments MAGNESIUM ([facility]) 1.8 mg/dL 1.5-3.0 Specimen slightly (test code = 627) hemolyzed POCT-GLUCOSE [id number] 09:36:00 Test Item Value Reference Range Interpretation Comments POC-GLUCOSE METER 212 mg/dL 70-110 H TESTED AT [facility] [address] ([facility]) (test code [facility] = 1538) [place] [address] POCT-GLUCOSE [id number] 08:43:00 Test Item Value Reference Range Interpretation Comments POC-GLUCOSE METER 268 mg/dL 70-110 H TESTED AT [facility] [address] ([facility]) (test code [facility] = 1538) [place] [address] [id number] 07:47:00 Test Item Value Reference Range Interpretation Comments POTASSIUM ([facility]) (test code = 4.0 meq/L 3.5-5.5 379) If last glucose was less than 500, may do bedside glucose instead of serum glucose.[id number] 07:47:00 Test Item Value Reference Range Interpretation Comments GLUCOSE RANDOM ([facility]) (test code 370 mg/dL 70-110 H = 652) If last glucose was less than 500, may do bedside glucose instead of serum glucose.POCT-GLUCOSE [id number] 07:31:00 Test Item Value Reference Range Interpretation Comments POC-GLUCOSE METER 328 mg/dL 70-110 H Notified R Evita DAVIS/TESTED AT ([facility]) (test code [facility] [address] = 1538) [facility] [place] [address] POCT-GLUCOSE [id number] 07:31:00 Test Item Value Reference Range Interpretation Comments POC-GLUCOSE METER 414 mg/dL 70-110 HH TESTED AT [facility] [address] (BEAKER) (test code [place] [facility] = 1538) [place] [address] [id number] 06:57:00 Test Item Value Reference Range Interpretation Comments POTASSIUM (BEAKER) (test code = 4.5 meq/L 3.5-5.5 379) [id number] 06:51:00 Test Item Value Reference Range Interpretation Comments GLUCOSE RANDOM (BEAKER) (test code 523 mg/dL 70-110 HH = 652) If last glucose was less than 500, may do bedside glucose instead of serum glucose.URINALYSIS W/ REFLEX URINE [id number] 06:29:00 Test Item Value Reference Range Interpretation [...] (test code = 2795) RAPID INFLUENZA A&B [id number] 06:13:00 Test Item Value Reference Range Interpretation Comments RAPID INFLUENZA A AG (BEAKER) (test Negative Negative code = 1622) RAPID INFLUENZA B AG (BEAKER) (test Negative Negative code = 1623) SCREEN, [id number] 05:58:00 Test Item Value Reference Range Interpretation Comments TEST URINE (BEAKER) (test Negative code = 583) RAD, CHEST, 1 VIEW, NON [id number] 05:52:00Reason for exam:->EMESISReason for exam:->BLOOD SUGAR PROBLEMShould this be performed at the bedside?- >YesIs the patient ?->NoFINAL REPORT Comparison examination: 04/07/2017 No pneumothorax, focal pulmonary consolidation, or significant pleural effusion. Normal cardiomediastinal contours. Normal skeleton and soft tissues. Impression: No acute abnormality. Signed: Joesph Foyeport Verified Date/Time: 05/18/2017 05:52:18 Reading Location: [address] Transitional Reading Room HEMOGLOBIN [id number] 05:49:00 Test Item Value Reference Range Interpretation Comments HEMOGLOBIN A1C (BEAKER) (test code = 13.2 % 4.3-6.1 H 368) BASIC METABOLIC [id number] 05:28:00 Test Item Value Reference Range Interpretation [...] bedside glucose instead of serum glucose.HEPATIC FUNCTION [id number] 05:27:00 Test Item Value Reference Range Interpretation [...] glucose instead of serum glucose.Specimen slightlylipemicBLOOD GAS, [id number] 05:04:00 Test Item Value Reference Range Interpretation [...] (test code = 1819) 21.0 % KETONE, [id number] 05:03:00 Test Item Value Reference Range Interpretation Comments KETONES, BLOOD (BEAKER) (test code 5.8 mmol/L <0.4 H = 1103) CBC W/PLT COUNT & AUTO [id number] 05:02:00 Test Item Value Reference Range Interpretation [...] L 0.00-0.20 (test code = 417) POCT-GLUCOSE [id number] 04:49:00 Test Item Value Reference Range Interpretation Comments POC-GLUCOSE METER > mg/dL 70-110 HH OUTSIDE ME ASURING (BEAKER) (test code RANGETES PRACHI AT [facility] [address] = 1538) [facility] [address] BLOOD [id number] 00:00:00 Test Item Value Reference Range Interpretation Comments CULTURE (BEAKER) (test No growth in 5 days code = 1095) BLOOD [id number] 00:00:00 Test Item Value Reference Range Interpretation Comments CULTURE (BEAKER) (test No growth in 5 days code = 1095) URINE [id number] 15:21:00 Test Item Value Reference Range Interpretation Comments CULTURE (BEAKER) (test >100,000 col/mL skin code = 1095) christophe POCT-GLUCOSE [id number] 14:37:00 Test Item Value Reference Range Interpretation Comments POC-GLUCOSE METER 326 mg/dL 70-110 H TESTED AT [place] [address] ([facility]) (test code = [facility] 1538) [address] POCT-GLUCOSE [id number] 13:26:00 Test Item Value Reference Range Interpretation Comments POC-GLUCOSE METER 331 mg/dL 70-110 H TESTED AT [place] [address] ([facility]) (test code = [facility] 1538) [address] CBC W/PLT COUNT & AUTO [id number] 11:34:00 Test Item Value Reference Range Interpretation Comments WHITE BLOOD CELL COUNT (BEAKER) 5.9 K/ L 3.5-10.5 (test code = 775) RED BLOOD CELL COUNT (BEAKER) 4.15 M/ L 3.93-5.22 (test code = 761) HEMOGLOBIN (BEAKER) (test code = 11.7 GM/DL 11.2-15.7 410) HEMATOCRIT (BEAKER) (test code = 34.9 % 34.1-44.9 411) MEAN CORPUSCULAR VOLUME (AKER) 84.1 fL 79.4-94.8 (test code = 753) [...] Value Reference Range Interpretation Comments TOTAL COUNTED (BEAKER) (test code = 1351) POCT-GLUCOSE [id number] 11:18:00 Test Item Value Reference Range Interpretation Comments POC-GLUCOSE METER 349 mg/dL 70-110 H TESTED AT [place] [address] ([facility]) (test code = [place] 1538) [address] POCT-GLUCOSE [id number] 09:34:00 Test Item Value Reference Range Interpretation Comments POC-GLUCOSE METER 61 mg/dL 70-110 L TESTED AT [place] [address] ([facility]) (test code = [place] [address] 1538) POCT-GLUCOSE [id number] 08:48:00 Test Item Value Reference Range Interpretation Comments POC-GLUCOSE METER 79 mg/dL 70-110 TESTED AT [facility] 67 ([facility]) (test code = [facility] [address] 1538) BASIC METABOLIC [id number] 06:12:00 Test Item Value Reference Range Interpretation [...] 358) GLUCOSE RANDOM 387 mg/dL 70-105 H (BEAKER) (test code = 652) CALCIUM (BEAKER) 8.7 mg/dL 8.4-10.2 (test code = 697) EGFR (BEAKER) (test 89 mL/min/1.73 ESTIMA PRACHI GFR IS code = 1092) sq m NOT ACCURATE CREATININE CLEARANCE IN PREDICTING GLOMERULAR FILTRATION RATE . ESTIMATED GFR I S NOT APPLICABLE FOR DIALYSIS PATIEN TS. KETONE, [id number] 05:43:00 Test Item Value Reference Range Interpretation Comments KETONES, BLOOD (BEAKER) (test code 0.1 mmol/L <0.4 = 1103) POCT-GLUCOSE [id number] 05:39:00 Test Item Value Reference Range Interpretation Comments POC-GLUCOSE METER 366 mg/dL 70-110 H TESTED AT [facility] 6720 (BEAKER) (test code = [facility] 1538) [address] POCT-GLUCOSE [id number] 22:32:00 Test Item Value Reference Range Interpretation Comments POC-GLUCOSE METER 302 mg/dL 70-110 H TESTED AT [facility] 6720 (BEAKER) (test code = [facility] [place] [facility] 1538) [address] POCT-GLUCOSE [id number] 19:15:00 Test Item Value Reference Range Interpretation Comments POC-GLUCOSE METER 273 mg/dL 70-110 H TESTED AT [place] [address] ([facility]) (test code = [facility] 1538) [address] POCT-GLUCOSE [id number] 17:49:00 Test Item Value Reference Range Interpretation Comments POC-GLUCOSE METER 174 mg/dL 70-110 H TESTED AT [place] [address] ([facility]) (test code = [facility] 1538) [address] POCT-GLUCOSE [id number] 17:02:00 Test Item Value Reference Range Interpretation Comments POC-GLUCOSE METER 171 mg/dL 70-110 H TESTED AT [place] [address] ([facility]) (test code = [facility] 1538) [address] POCT-GLUCOSE [id number] 15:17:00 Test Item Value Reference Range Interpretation Comments POC-GLUCOSE METER 135 mg/dL 70-110 H TESTED AT [place] [address] ([facility]) (test code = [facility] 1538) [address] POCT-GLUCOSE [id number] 13:10:00 Test Item Value Reference Range Interpretation Comments POC-GLUCOSE METER 61 mg/dL 70-110 L TESTED AT [place] [address] ([facility]) (test code = [facility] [place] [address] 1538) POCT-GLUCOSE [id number] 11:21:00 Test Item Value Reference Range Interpretation Comments POC-GLUCOSE METER 57 mg/dL 70-110 L Notified Roaslva Jama MD/TESTED AT ([facility]) (test code = [address] 1538) [facility] [address] POCT-GLUCOSE [id number] 08:02:00 Test Item Value Reference Range Interpretation Comments POC-GLUCOSE METER 68 mg/dL 70-110 L Notified Rosalva Jama MD/TESTED AT ([facility]) (test code = [address] 1538) [facility] 7[address] CBC W/PLT COUNT & AUTO [id number] 08:02:00 Test Item Value Reference Range Interpretation Comments WHITE BLOOD CELL COUNT ([facility]) 6.6 K/ L 3.5-10.5 (test code = 775) RED BLOOD CELL COUNT ([facility]) 3.97 M/ L 3.93-5.22 (test code = 761) HEMOGLOBIN ([facility]) (test code = 11.2 GM/DL 11.2-15.7 410) [...] PERCENT (BEAKER) (test code = 2801) POCT-GLUCOSE [id number] 06:58:00 Test Item Value Reference Range Interpretation Comments POC-GLUCOSE METER 95 mg/dL 70-110 TESTED AT [facility] 6720 (BEAKER) (test code = [facility] [address] 1538) POCT-GLUCOSE [id number] 06:17:00 Test Item Value Reference Range Interpretation Comments POC-GLUCOSE METER 150 mg/dL 70-110 H TESTED AT [place] [address] ([facility]) (test code = [facility] 1538) [address] POCT-GLUCOSE [id number] 05:18:00 Test Item Value Reference Range Interpretation Comments POC-GLUCOSE METER 101 mg/dL 70-110 TESTED AT [place] [address] ([facility]) (test code = [place] [facility] 1538) [address] POCT-GLUCOSE [id number] 05:07:00 Test Item Value Reference Range Interpretation Comments POC-GLUCOSE METER 119 mg/dL 70-110 H TESTED AT [place] [address] ([facility]) (test code = [facility] 1538) [address] BASIC METABOLIC [id number] 04:52:00 Test Item Value Reference Range Interpretation [...] NOT APPLICABLE FOR DIALYSIS PATIEN TS. POCT-GLUCOSE [id number] 04:05:00 Test Item Value Reference Range Interpretation Comments POC-GLUCOSE METER 48 mg/dL 70-110 L TESTED AT [place] [address] ([facility]) (test code = [facility] [place] [facility] [address] 1538) POCT-GLUCOSE [id number] 02:30:00 Test Item Value Reference Range Interpretation Comments POC-GLUCOSE METER 181 mg/dL 70-110 H TESTED AT [place] [address] (BEAKER) (test code = [facility] 1538) [address] POCT-GLUCOSE [id number] 02:10:00 Test Item Value Reference Range Interpretation Comments POC-GLUCOSE METER 37 mg/dL 70-110 LL Will Repea t Test/TESTED (BEAKER) (test code = AT [facility] [facility] 7[address] POCT-GLUCOSE [id number] 01:07:00 Test Item Value Reference Range Interpretation Comments POC-GLUCOSE METER 87 mg/dL 70-110 TESTED AT [place] [address] (BEAKER) (test code = [facility] [address] 1538) BASIC METABOLIC [id number] 00:44:00 Test Item Value Reference Range Interpretation [...] NOT APPLICABLE FOR DIALYSIS PATIEN TS. POCT-GLUCOSE [id number] 00:30:00 Test Item Value Reference Range Interpretation Comments POC-GLUCOSE METER 96 mg/dL 70-110 TESTED AT [place] [id number] (BEAKER) (test code = [facility] [address] 1538) POCT-GLUCOSE [id number] 23:54:00 Test Item Value Reference Range Interpretation Comments POC-GLUCOSE METER 91 mg/dL 70-110 TESTED AT [place] [address] (BEAKER) (test code = [facility] [address] 1538) POCT-GLUCOSE [id number] 23:12:00 Test Item Value Reference Range Interpretation Comments POC-GLUCOSE METER 48 mg/dL 70-110 L TESTED AT [place] [address] (BEAKER) (test code = [facility] [address] 1538) POCT-GLUCOSE [id number] 21:58:00 Test Item Value Reference Range Interpretation Comments POC-GLUCOSE METER 94 mg/dL 70-110 TESTED AT [place] [address] (BEAKER) (test code = [facility] [place] [facility] [address] 1538) BASIC METABOLIC [id number] 21:08:00 Test Item Value Reference Range Interpretation [...] NOT APPLICABLE FOR DIALYSIS PATIEN TS. POCT-GLUCOSE [id number] 20:57:00 Test Item Value Reference Range Interpretation Comments POC-GLUCOSE METER 165 mg/dL 70-110 H TESTED AT [place] [address] (BEAKER) (test code = [facility] [place] 1538) [address] [id number] 20:55:00 Test Item Value Reference Range Interpretation Comments POTASSIUM (BEAKER) (test code = 3.6 meq/L 3.5-5.1 379) URINALYSIS W/ [id number] 20:40:00 Test Item Value Reference Range Interpretation [...] 516) SOURCE(BEAKER) (test code = 2795) POCT-GLUCOSE [id number] 19:59:00 Test Item Value Reference Range Interpretation Comments POC-GLUCOSE METER 282 mg/dL 70-110 H TESTED AT [facility] 6720 (BEAKER) (test code = [facility] 1538) [address] POCT-GLUCOSE [id number] 19:02:00 Test Item Value Reference Range Interpretation Comments POC-GLUCOSE METER 374 mg/dL 70-110 H Notified Rosalva Jama MD/TESTED (BEAKER) (test code = AT [facility] [address] [place] 1538) [facility] 7703 0 CBC W/PLT COUNT & AUTO [id number] 18:56:00 Test Item Value Reference Range Interpretation [...] PERCENT (BEAKER) (test code = 2801) POCT-GLUCOSE [id number] 18:03:00 Test Item Value Reference Range Interpretation Comments POC-GLUCOSE METER 294 mg/dL 70-110 H TESTED AT [facility] 6720 (BEAKER) (test code = [place] 1538) [address] HEMOGLOBIN [id number] 17:45:00 Test Item Value Reference Range Interpretation Comments HEMOGLOBIN A1C ([facility]) (test code = 12.6 % 4.3-6.1 H 368) RAD, CHEST, 1 VIEW, NON [id number] 17:20:00Reason for exam:->sobShould this be performed at [...] IMPRESSION: No acute cardiopulmonary abnormality. Signed: Salomon Mckeon Verified Date/Time: 04/07/2017 17:20:50 Reading Location: [address] Radiology Reading Room TSH/FREE T4 IF [id number] 17:04:00 Test Item Value Reference Range Interpretation Comments THYROID STIMULATING HORMONE 0.95 uIU/mL 0.35-4.94 ([facility]) (test code = 772) TROPONIN [id number] 16:51:00 Test Item Value Reference Range Interpretation Comments TROPONIN I ([facility]) (test code = 397) < ng/mL 0.00-0.03 [...] renalfailure, acidosis, acute neurological disease, and persistent tachyarrhythmia.[id number] 16:45:00 Test Item Value Reference Range Interpretation Comments LIPASE (BEAKER) (test code = 749) 33 U/L 8-78 [id number] 16:45:00 Test Item Value Reference Range Interpretation Comments AMYLASE (BEAKER) (test code = 349) 66 U/L 25-125 BASIC METABOLIC [id number] 16:45:00 Test Item Value Reference Range Interpretation [...] DIALYSIS PATIEN TS. LACTIC ACID, VENOUS, WHOLE [id number] 16:45:00 Test Item Value Reference Range Interpretation Comments LACTATE BLOOD VENOUS (2) (BEAKER) 1.1 mmol/L 0.5-2.2 (test code = 2872) Effective 12/05/2015: Units/Reference Range ChangeNew: 0.5-2.2 mmol/L Previous: 5-20 mg/dLKETONE, [id number] 16:41:00 Test Item Value Reference Range Interpretation Comments KETONES, BLOOD (BEAKER) (test code 2.1 mmol/L <0.4 H = 1103) BLOOD GAS, [id number] 16:27:00 Test Item Value Reference Range Interpretation Comments PH VENOUS (BEAKER) (test code = 7.36 7.32-7.42 701) PCO2 VENOUS (BEAKER) (test code = 41 mmHg 41-51 755) PO2 VENOUS (BEAKER) (test code = 18 mmHg 25-40 L 702) O2 SATURATION VENOUS (AKER) 26.4 % 40.0-70.0 L (test code = 703) HCO3 VENOUS (AKER) (test code = 23 mmol/L 21-29 705) BASE EXCESS VENOUS (AKER) (test -2.5 mmol/L -2.0-3.0 L code = 704) PATIENT TEMPERATURE ([facility]) 37.0 C (test code = 1818) POCT-GLUCOSE [id number] 16:20:00 Test Item Value Reference Range Interpretation Comments POC-GLUCOSE METER 156 mg/dL 70-110 H TESTED AT [place] [address] ([facility]) (test code = [place] 1538) [address] POCT-GLUCOSE [id number] 15:28:00 Test Item Value Reference Range Interpretation Comments POC-GLUCOSE METER 101 mg/dL 70-110 TESTED AT [place] [address] ([facility]) (test code = [place] 1538) [address]
--- OUTSIDE RECORDS SUMMARY | 2020-06-17 02:46 | XMS REPORT | Summary of Care ---
:[address] [facility] - [facility] Address [address] [place] [id number] Care Team Providers Name Role Phone EliottreEileen salas [facility] Primary Care Provider [phone] Reason for Referral Other (Routine) Status Reason Specialty Diagnoses / Procedures Referred By Rosalva nicole To Contact Contact New Request Diagnoses Uncontrolled type 1 diabetes mellitus with hypoglycemia without coma Ino Faculty, Harvey Procedures Discharge Follow-up: Specialty Provider HARVEY HOFFMANN FACULTY; 1 Week Marilia Demarco MD [address] [place] [address] Reason for Visit Auth/Cert Status Reason Specialty Diagnoses / Referred By Contact Refe rred To Contact Procedures Obstetrics Diagnoses Uncontrolled diabetes mellitus J10c [address] [place] [phone] Phone: Fax: Encounter Details Date Type Department Care Team Description 05/24/2020 - Hospital Encounter Obstetrics and Dorinda Li Type 1 diabetes 05/28/2020 Gynecology (J10C) MD Sylvain mellitus[address] uncontrolled [address] [phone] [id number] Allergies Active Allergy Reactions Severity Noted Date [...] as of this encounter (statuses as of 05/28/2020) Medications Medication Sig Dispensed Refills Start End Date Status Date Blood-Glucose To be used with 1 Each 1 Active Meter (PRECISION blood ketone 3 XTRA) strips. MiscIndications: Type I (juvenile type) diabetes mellitus without mention of complication, uncontrolled glucagon (GLUCAGON 1 mg by 2 mg 0 A ctive EMERGENCY) 1 mg Intramuscular 4 injectionIndicatio route as needed ns: Type I (For severe (juvenile type) hypoglycemia). diabetes mellitus without mention of complication, uncontrolled, Vaccination reaction, initial encounter blood sugar 6 (six) times 200 Strip 12 Acti ve diagnostic daily. 4 (FREESTYLE LITE STRIPS) stripIndications: Type I (juvenile type) diabetes mellitus without mention of complication, uncontrolled, Vaccination reaction, initial encounter SERTraline 50 mg Take 1 tablet by 90 tablet 1 Active tabletIndications: mouth daily. 7 Chronic depression, Chronic insomnia hydrOXYzine 25 mg Take 25 mg by 0 Active tablet mouth at bedtime as needed for Other (sleep). ibuprofen 800 mg Take 1 tablet by 20 tablet 0 Active tabletIndications: mouth every 8 0 Abdominal pain, (eight) hours as unspecified needed for Pain abdominal (scale 4-6). location, Right ovarian cyst, Right lower quadrant pain acetaminophen-code Take 1 tablet by 12 tablet 0 Active ine 300-30 mg mouth every 6 0 tabletIndications: (six) hours as Abdominal pain, needed for Pain unspecified (scale 7-10). abdominal location, Right ovarian cyst, Right lower quadrant pain ondansetron Take 1 tablet by 12 tablet 0 A ctive (ZOFRAN ODT) 4 mg mouth every 8 0 disintegrating (eight) hours as tabletIndications: needed for Nausea Nausea and Vomiting (N/V). ondansetron HCl Take 4 mg base by 0 Active (ZOFRAN ORAL) mouth. doxylamine-pyridox Take 2 tablets by 120 tablet 1 Active ine, vit B6, mouth at bedtime. 0 (DICLEGIS) 10-10 mg per tabletIndications: Nausea and vomiting during Blood-Glucose Use as directed 1 Each 0 Active Meter (TRUE METRIX 0 GLUCOSE METER) [facility] blood sugar Patient to check 1 Box 5 A ctive diagnostic (TRUE blood sugar four 0 METRIX GLUCOSE times daily TEST STRIP) strip Lancets [facility] Patient to check 100 Each 5 Active blood sugar four 0 times daily insulin Patient to 1 Box 5 Active syringe-needle administer insulin 0 U-100 1 ml twice daily (INSULIN SYRINGE) 1 mL 29 gauge x 1/2" Syrg insulin NPH 100 inject 6 Units 1 Vial 3 Active unit/mL under the skin at 0 injectionIndicatio bedtime. ns: Uncontrolled type 1 diabetes mellitus with hypoglycemia without coma insulin NPH 100 inject 18 Units 1 Vial 3 Active unit/mL under the skin 0 injectionIndicatio every morning. ns: Uncontrolled type 1 diabetes mellitus with hypoglycemia without coma insulin regular inject 14 Units 1 Vial 3 Active human 100 unit/mL under the skin 0 injectionIndicatio every morning. ns: Uncontrolled type 1 diabetes mellitus with hypoglycemia without coma insulin regular inject 10 Units 1 Vial 3 Active human 100 unit/mL under the skin 0 injectionIndicatio with evening meal. ns: Uncontrolled type 1 diabetes mellitus with hypoglycemia without coma aspirin 81 mg Take 1 tablet by 60 tablet 2 Active chewable mouth daily. 0 tabletIndications: Uncontrolled type 1 diabetes mellitus with hypoglycemia without coma famotidine 20 mg Take 1 tablet by 60 tablet 2 Active tabletIndications: mouth 2 (two) 0 Uncontrolled type times daily with 1 diabetes meals. mellitus with hypoglycemia without coma metoclopramide HCl Take 1 tablet by 90 tablet 2 Active 10 mg mouth before 0 tabletIndications: meals. Uncontrolled type 1 diabetes mellitus with hypoglycemia without coma vitamin Take 1 tablet by 60 tablet 2 Active w/FA mouth daily. 0 tabletIndications: Uncontrolled type 1 diabetes mellitus with hypoglycemia without coma metroNIDAZOLE 500 Take 1 tablet by 6 tablet 0 05/31 Active mg mouth 2 (two) 0 20 tabletIndications: times daily for 3 Bacterial days. vaginosis clotrimazole 1 % Insert 1 1 Tube 0 05/31/20 Act jose vaginal Applicator into 0 20 creamIndications: vagina at bedtime Vaginal for 3 days. candidiasis insulin lispro 100 Inject 10-20 units 10 mL 0 Discontinued unit/mL pen SQ per carb dosing 8 20 injectorIndication Indications: s: sliding scale sliding scale insulin regular Inject 10 U 1 Vial 5 05/28/20 Di scontinued human (NOVOLIN R subcutaneously 30 0 20 REGULAR U-100 minutes before INSULN) 100 breakfast. Inject unit/mL 7 U subcutaneously injectionIndicatio 30 minutes before ns: Supervision of dinner. high risk , antepartum insulin NPH Inject 20 U 1 Vial 5 05/28/20 Discon tinued (HUMULIN N NPH subcutaneously 30 0 20 U-100 INSULIN) 100 minutes before unit/mL breakfast. Inject injectionIndicatio 7 U subcutaneously ns: Supervision of before bedtime. high risk , antepartum documented as of this encounter (statuses as of 05/28/2020) Active Problems Problem Noted Date Vaginal spotting 05/24/2020 13 weeks gestation of 05/24/2020 Uncontrolled diabetes mellitus 05/24/2020 Uncontrolled type 1 diabetes mellitus with hyperglycem ia 05/17/2020 History of bipolar disorder 05/17/2020 Supervision of high-risk 04/16/2020 Multiparity 04/16/2020 History of section 04/16/2020 Overview: At [facility] in 2016 Dyspareunia, female 05/27/2017 Chronic [...] disorder (ADHD) 2012 Overview: ICD10 Diagnosis Term Student Financial Aid Manager Utility Estimated Date of Delivery Comments Yes 11/24/2020 Based on Ultrasound documented as of this encounter (statuses as of 05/28/2020) Resolved Problems Problem Noted Date Resolved Date [...] as of this encounter (statuses as of 05/28/2020) Immunizations Name Administration Dates Next Due DTAP [...] been in contact with No / Unsure 05/25/2020 12:35 AM CDT someone who was confirmed or suspected to have Coronavirus / COVID-19? documented as of this encounter Last Filed Vital Signs Vital Sign Reading Time Taken Comments Blood Pressure 115/68 05/28/2020 12:00 PM CDT Pulse 91 05/28/2020 12:00 PM CDT Temperature 36.9 C (98.4 F) 05/28/2020 12:00 PM CDT Respiratory Rate 18 05/28/2020 12:00 PM CDT Oxygen Saturation 98% 05/28/2020 12:00 PM CDT Inhaled Oxygen Concentration - - Weight 64 kg (141 lb) 05/24/2020 7:35 PM CDT Height 162.6 cm (5' 4.02") 05/24/2020 7:35 PM CDT Body Mass Index 24.19 05/24/2020 7:35 PM CDT documented in this encounter Discharge Instructions Thais Dennison RN - 05/28/2020 AttachmentsThe following attachments cannot be sent through Care Everywhere. Diabetes with High Blood Sugar (Slovenian)Diabetes, Carbohydrates, Fats, and Protein, Understanding (Slovenian)Diabetes, Diet (Slovenian)Diabetes, Meal Planning (Slovenian)Kick Counts (Slovenian)False Labor (Slovenian)documented in this encounter Progress Notes Alexander Allen MD - 05/27/2020 3:53 PM CDT R1 [facility] CALL PROGRESS NOTE Salome Santacruz [id number] 05/27/2020, 3:53 PM Notified by RN that patient had BG of 59 at 2hr Postprandial. Patient wasn't feeling well. Given juice and snacks. Vitals Vitals: 05/27/20 1535 BP: 105/53 Pulse: 84 Resp: 17 Temp: 36.9 C (98.4 F) SpO2: 100% Plan: recheck BG in 30 min. Alexander Allen MD OBGYN PGY-1 haparro Rice MD - 05/27/2020 10:37 AM CDTPost rounding note 05/27/2020 10:37 AM Plan: - Insulin regimen adjusted to AM 18N/14R; PM 6N/12R - Started Reglan prior to meals and pantoprazole for gastric discomfort Chaparro Rice MD Don Cervantes MD - 05/27/2020 7:33 AM CDT ANTEPARTUM PROGRESS NOTE Subjective: Patient has no complaints. She denies vaginal bleeding, denies leakage of fluid, denies contractions. Does not yet feel movement. Patient reports not eating much due to epigastric pain after eating. Endorses mild nausea in AM. Objective: Vitals: 05/26/20 1600 05/26/20 2000 05/27/20 0000 05/27/20 0400 BP: 98/79 112/70 106/62 98/50 BP Location: Patient Position: Sitting Pulse: 92 (!) 18 94 90 Resp: 18 18 18 18 Temp: 37.1 C (98.7 F) 36.8 C (98.2 F) 36.7 C (98.1 F) 36.9 C (98.4 F) TempSrc: Oral Oral Oral Oral SpO2: 99% 100% 99% 97% Weight: Height: Physical Exam: General: patient alert and in no acute distress HEENT: symmetric, negative for masses Lungs: unlabored breathing Cardiology: peripheral pulses intact and regular Abdomen: soft, non-tender, non-distended, Gravid Extremities: no clubbing, cyanosis, or edema Neuro: patient moving all extremities, no facial droop : deferred Medications: Current Facility-Administered Medications Medication Dose Route Frequency Last Rate Last Dose insulin NPH (HUMULIN N) injection 20 Units 20 Units Subcutaneous QAM 20 Units at 05/26/20 0858 insulin NPH (HUMULIN N) injection 8 Units 8 Units Subcutaneous QHS 8 Units at 05/26/202056 insulin regular human (HUMULIN R) injection 8 Units 8 Units Subcutaneous DINNER 8 Units at 05/26/20 1813 acetaminophen (TYLENOL) tablet 650 mg 650 mg Oral Q6HPRN 650 mg at 05/26/202051 aspirin chewable tablet 81 mg 81 mg Oral DAILY 81 mg at 05/26/20 0858 Sliding Scale Insulin-Regular + Fsbg Testing Subcutaneous Q4H Stopped at 05/27/20 0000 alum-mag hydroxide-simeth (MAALOX PLUS / MAG-AL PLUS) 200-200-20 mg/5 mL suspension 30 mL 30 mLOral Q6HPRN 30 mL at 05/25/202113 clotrimazole (CLOTRIMAZOLE-7) 1 % vaginal cream 1 Applicator 1 Applicator Vaginal QHS 1 Applicator at 05/25/20 2214 docusate calcium (SURFAK) capsule 240 mg 240 mg Oral QHSPRN insulin regular human (HUMULIN R) injection 12 Units 12 Units Subcutaneous QAM 12 Units at 05/26/20 0858 magnesium hydroxide (MILK OF MAGNESIA) 400 mg/5 mL suspension 30 mL 30 mL Oral QDAILYPRN metroNIDAZOLE (FLAGYL) tablet 500 mg 500 mg Oral BID 500 mg at 05/26/20 205 vitamin w/FA (PRENATABS RX) tablet 1 tablet 1 tablet Oral DAILY 1 tablet at 05/26/200858 Labs: no new Assessment/Plan: Salome Santacruz is a 20 year [id number] 14w1d by u(11)whoisadmitted for diabetes control.Hospital Day: 4 Class D DM -Diagnosedage 3, previously on insulin pumpbut lost insurance' - HgbA1c 9.4% on 04/16/20 - Baseline EKG:normal sinus rhythm on 05/16/20and again today 05/24/20 -Qzeovgfo41 hour urine:364 mg - On ASA 81 mg daily, continue until 36 weeks for preeclampsia prevention - Opthalmology and nutrition consultplaced - Recommendlevel II anatomy scan (ordered),Growth US q4 weeks after anatomy scan, NST 2x/wk at 30 weeks - Current regimen AM 20N/12R, PM 8R and 8R qhs 05/26/2020 08:03 05/26/2020 11:29 05/26/2020 12:44 05/26/2020 13:02 05/26/2020 16:29 05/26/2020 18:07 05/26/2020 20:52 05/27/2020 03:46 05/27/2020 05:11 POCT GLU 117 (H) 146 (H) 45 (LL) 58 (L) 182 (H) 215 (H) 177 (H) 55 (L) 132 (H) Vaginal spotting, resolved - reports spotting for the past week - :normal external genitalia, SSE cervix visually closed with physiologic mucus present. Brownish green vaginal discharge noted, no active bleeding from the cervical os. - Wet mount showing clue cells consistent with BV and yeast. - Blood type AB positive, Rhogam not indicated - Plan:flagylBID x7d, clotrimazole nightly x7d Flank pain - endorsesbilateral flank pain - no dysuria, N/V/D or fevers at home - VSS, afebrile - normal urethra on exam - Tylenol given with minimal relief - UA showing 500 glucose, no bacteria or nitrites - Urine culture: negative - plan: heating pad, Tylenol 6h PRN Bipolar disorder - reportspreviouslytaking hydroxyzine but no longer takingbecause it makes her too sleepy to feel when her sugars are low - Has referral to see psychiatry, buthas not been able to get in yet Prev x 1 -documented LTCS at [facility] for NRFHT COVID-19 SCREEN: Lab Results Component Value Date/Time COVID19 Not Detected 05/24/2020 07:32 PM Antepartum course reviewed -Hgb A1c9.2 04/16/20, seronegative, Rimmune, VZVimmune,AB positive/IATnegative, GBSunk, PapNILM 04/16/20 - H/H, plt:12.1/ 35.8,341on 05/16/20 -[place] [facility] Fetus - Presentation on admission:variable -early posteriorplacenta visualized on R2 BSUS -Detailed level IIanatomy scan ordered Routine care: - GDM screen: DDM - Tdap: not received - Rhogam: not indicated - GBS: unknown - Last T&S: 05/24 Don Cervantes MD (Michelle) PGY-3 Obstetrics and Gynecology Associated attestation - Carla Alegre MD - 05/27/2020 12:10 PM CDTI personally examined the patient on 05/27/[address] Cervantes's resident note with the following addition(s): Patient had 0300 hr hypoglycemia. Will reduce evening NPH. She also had before lunch hypoglycemia. Will reduce a.m. NPH. Will adjust insulin to a.m. 14R, 18NPH and p.m. 12R, 6NPH. D/C zofran and added reglan and PPI for gastritis pain. Patient asking to go home. Patient encouraged to give us at least today to adjust insulin. I actively participated in the decision-making process. Please see the resident's note for additional details. Dorinda Li MD - 05/26/2020 9:02 AM CDT I was rounding [facility] faculty for this patient and was involved and agree with antepartum planning. Shewas seen and examined by me and the resident. Salome Santacruz is a 20 year [id number] 14w0d by jessica(11)who is admitted for diabetes control.Hospital Day: 3 Class D DM -Diagnosedage 3, previously on insulin pumpbut lost insurance' - HgbA1c 9.4% on 04/16/20 - Baseline EKG:normal sinus rhythm on 05/16/20and again today 05/24/20 - Baseline 24 hour urine:364 mg - On ASA 81 mg daily, continue until 36 weeks for preeclampsia prevention - Opthalmology and nutrition consultplaced - Recommendlevel II anatomy scan (ordered),Growth US q4 weeks after anatomy scan, NST 2x/wk at 30 weeks - Current regimen AM 20N/12R, PM 8R and 8R qhs Vaginal spotting - reports spotting for the past week - :normal external genitalia, SSE cervix visually closed with physiologic mucus present. Brownish green vaginal discharge noted, no active bleeding from the cervical os. - Wet mount showing clue cells consistent with BV and yeast. - Blood type AB positive, Rhogam not indicated - Plan:flagylBID x7d, clotrimazole nightly x7d Flank pain - endorsesbilateral flank pain - no dysuria, N/V/D or fevers at home - VSS, afebrile - normal urethra on exam - Tylenol given with minimal relief - UA showing 500 glucose, no bacteria or nitrites - Urine culture: negative - plan: heating pad, Tylenol 6h PRN Bipolar disorder - reportspreviouslytaking hydroxyzine but no longer takingbecause it makes her too sleepy to feel when her sugars are low - Has referral to see psychiatry, buthas not been able to get in yet Prev x 1 -documented LTCS at [facility] for NRFHT COVID-19 SCREEN: Lab Results Component Value Date/Time COVID19 Not Detected 05/24/2020 07:32 PM Antepartum course reviewed -Hgb A1c9.2 04/16/20, seronegative, Rimmune, VZVimmune,AB positive/IATnegative, GBSunk, PapNILM 04/16/20 - H/H, plt:12.1/ 35.8,341on 05/16/20 -[place] [facility] Fetus - Presentation on admission:variable -early posteriorplacenta visualized on R2 BSUS -Detailed level IIanatomy scan ordered Chaparro Guerra MD - 05/26/2020 7:04 AM CDT ANTEPARTUM PROGRESS NOTE 05/26/2020 7:05 AM Subjective: Patient has been well without complaints. She denies vaginal bleeding, denies leakage of fluid, denies contractions. Endorses normal movement. Objective: Vitals: Temp: [36.7 C (98.1 F)-37 C (98.6 F)] Pulse: [83-97] Resp: [17-18] BP: (101-117)/(57-71) Patient Vitals for the past 24 hrs: BP Temp Temp src Pulse Resp SpO2 05/26/20 0400 101/57 37 C (98.6 F) Oral 85 18 99 % 05/26/20 0000 114/61 37 C (98.6 F) Oral 87 18 98 % 05/25/20 2000 107/65 36.9 C (98.4 F) Oral 94 18 99 % 05/25/20 1600 111/60 37 C (98.6 F) Oral 93 17 100 % 05/25/20 1145 117/71 36.7 C (98.1 F) Oral 97 18 100 % 05/25/20 0800 107/60 36.9 C (98.4 F) Oral 83 17 100 % Physical Exam: General: patient alert and in no acute distress HEENT: symmetric, negative for masses Lungs: unlabored breathing Cardiology: peripheral pulses intact and regular Abdomen: Gravid and soft, non-tender, non-distended, no abnormal masses palpated Extremities: no clubbing, cyanosis, or edema Neuro: patient moving all extremities, no facial droop : deferred Medications: Current Facility-Administered Medications Medication Dose Route Frequency Last Rate Last Dose acetaminophen (TYLENOL) tablet 650 mg 650 mg Oral Q6HPRN 650 mg at 05/25/20 2113 aspirin chewable tablet 81 mg 81 mg Oral DAILY 81 mg at 05/25/20 0845 cyclobenzaprine (FLEXERIL) tablet 10 mg 10 mg Oral ONCE Stopped at 05/25/20 221 insulin NPH (HUMULIN N) injection 20 Units 20 Units Subcutaneous QAM insulin NPH (HUMULIN N) injection 7 Units 7 Units Subcutaneous QPM 7 Units at 05/25/20 1706 insulin regular human (HUMULIN R) injection 7 Units 7 Units Subcutaneous QPM 7 Units at 05/25/20 1706 Sliding Scale Insulin-Regular + Fsbg Testing Subcutaneous Q4H Stopped at 05/25/201999 alum-mag hydroxide-simeth (MAALOX PLUS / MAG-AL PLUS) 200-200-20 mg/5 mL suspension 30 mL 30 mLOral Q6HPRN 30 mL at 05/25/20 211 clotrimazole (CLOTRIMAZOLE-7) 1 % vaginal cream 1 Applicator 1 Applicator Vaginal QHS 1 Applicator at 05/25/20 2214 docusate calcium (SURFAK) capsule 240 mg 240 mg Oral QHSPRN insulin regular human (HUMULIN R) injection 12 Units 12 Units Subcutaneous QAM 12 Units at 05/25/20 0845 magnesium hydroxide (MILK OF MAGNESIA) 400 mg/5 mL suspension 30 mL 30 mL Oral QDAILYPRN metroNIDAZOLE (FLAGYL) tablet 500 mg 500 mg Oral BID 500 mg at 05/25/20 1904 vitamin w/FA (PRENATABS RX) tablet 1 tablet 1 tablet Oral DAILY 1 tablet at Assessment/Plan: Salome Santacruz is a 20 year [id number] 14w0d by u(11)who is admitted for diabetes control.Hospital Day: 3 Class D DM -Diagnosedage 3, previously on insulin pumpbut lost insurance' - HgbA1c 9.4% on 04/16/20 -BS log reviewed withsugarsover the past week: 108-345fasting and 73- 4252h after breakfast, 90-298 2h after lunch and 52-381 2h after dinner, see log above - Currently onsplit dose insulin - Baseline EKG:normal sinus rhythm on 05/16/20and again today 05/24/20 -DKA ruled out in triage based on normal pH and normal betahydroxybutyrate - Baseline 24 hour urine:364 mg - On ASA 81 mg daily, continue until 36 weeks for preeclampsia prevention - Opthalmology and nutrition consultplaced -Seen by genetics 05/21, notestillincomplete at this time - Recommendlevel II anatomy scan (ordered),Growth US q4 weeks after anatomy scan, NST 2x/wk at 30 weeks - Current regimen AM 20N/12R, PM 7N/7R - Will change regimen to AM 20N/12R, PM 8R with dinner and 8N qhs - FSB / 33 / 145 / 154 / 159 / 67 / 104 / F 117 Vaginal spotting - reports spotting for the past week - :normal external genitalia, SSE cervix visually closed with physiologic mucus present. Brownish green vaginal discharge noted, no active bleeding from the cervical os. - Wet mount showing clue cells consistent with BV and yeast. - Blood type AB positive, Rhogam not indicated - Plan:flagylBID x7d, clotrimazole nightly x7d Flank pain - endorses bilateral flank pain - no dysuria, N/V/D or fevers at home - VSS, afebrile - normal urethra on exam - Tylenol given with minimal relief - UA showing 500 glucose, no bacteria or nitrites - Urine culture: negative - plan: heating pad, Tylenol 6h PRN Bipolar disorder - reportspreviouslytaking hydroxyzine but no longer takingbecause it makes her too sleepy to feel when her sugars are low - Has referral to see psychiatry, buthas not been able to get in yet Prev x 1 -documented LTCS at [facility] for NRFHT COVID-19 SCREEN: Lab Results Component Value Date/Time COVID19 Not Detected 05/24/2020 07:32 PM Antepartum course reviewed -Hgb A1c9.2 04/16/20, seronegative, Rimmune, VZVimmune,AB positive/IATnegative, GBSunk, PapNILM 04/16/20 - H/H, plt:12.1/ 35.8,341on [facility]16/[facility] - Presentation on admission:variable -early posteriorplacenta visualized on R2 BSUS -Detailed level IIanatomy scan ordered Chaparro Rice MD Jackelyn Nieto MD - 05/25/2020 8:37 PM CDT [facility] CALL PROGRESS NOTE Salome Santacruz [id number] 05/25/2020, 8:37 PM CTSP by RN for pain Subjective: Pt reports 3 day hx of L posterior rib pain. Pt describes pain that radiates from her L flank to herpelvic area. She says the pain is sharp and hasn't changed for 3 days despite one dose of tyelonol yesterday. Reports mild improvement this morning when she took ASA. Pt also describes a new pain in her epigastric area that radiates across her upper abdomen. 01/10. It started at dinner with food and is more intermittent in timing. It is causing pain with deep inspiration. Unable to qualify. Denies excessive bending or activity. Her chronic pain, mentioned in previous note is in her lower abdomen andthought to be 2/2 cyst per patient. Not currently bothering her. She endorses some nausea without vomiting. She denies sx of low sugar at this time, OSEGUERA, vision changes, feeling faint, or jittery. Objective: Vitals: 05/25/20 0800 05/25/20 1145 05/25/20 1600 05/25/201999 BP: 107/60 117/71 111/60 107/65 Pulse: 83 97 93 94 Resp: 17 18 17 18 Temp: 36.9 C (98.4 F) 36.7 C (98.1 F) 37 C (98.6 F) 36.9 C (98.4 F) TempSrc: Oral Oral Oral Oral SpO2: 100% 100% 100% 99% Weight: Height: Focused Physical Exam: Gen: Aox4, in no acute distress. HEENT: CV: normal s1/s2, no m/r/g Resp: CTAB, no accessory muscle usage Abd: non-tender, non-distended, no rebound or guarding. Normal bowel sounds : deferred Extremities: no edema bilaterally. Assessment: Pain Plan: - Tylenol q6prn order put in (in previous note, for flank pain until Ucx come back) - flexeril for msk pain - give prn Maalox for possible GI upset Discussed with Dr. Singh. Jackelyn Nieto MD PGY-1 REAL PROPERTY EVALUATOR Personal Pager: [phone] 05/25/20 8:37 PM Dav Beach MD - 05/25/2020 1:14 PM CDTR3 Note Salome Santacruz [id number] 05/25/2020, 1:14 PM Post rounding updates - Will Change AM insulin to 22N/10R, PM 7N/7R - Nutrition consult placed Dav Calvillo PGY 3 OBGYN Dav Calvo MD - 05/25/2020 7:27 AM CDT ANTEPARTUM PROGRESS NOTE 05/25/2020 7:27 AM Subjective: Patient complains of intermittent abdominal pain. Her pain has been present for years and is not relieved with any medications. She denies vaginal bleeding, denies leakage of fluid, denies contractions. Objective: Vitals: Temp: [36.7 C (98.1 F)-37.2 C (99 F)] Pulse: [78-98] Resp: [16-18] BP: (105-117)/(59-72) Patient Vitals for the past 24 hrs: BP Temp Temp src Pulse Resp SpO2 Height Weight 05/25/20 0400 105/59 36.9 C (98.4 F) Oral 86 18 100 % 05/25/20 0015 78 05/24/20 2330 115/65 37.2 C (99 F) Oral 85 18 100 % 05/24/20 1935 117/68 36.7 C (98.1 F) Axillary 98 17 99 % 1.626 m (5' 4.02") 64 kg (141 lb) Physical Exam: General: patient alert and in no acute distress HEENT: symmetric, negative for masses Lungs: unlabored breathing Cardiology: peripheral pulses intact and regular Abdomen: Gravid and soft, non-distended, no abnormal masses palpated. Mild tenderness to palpation in lower quadrants Extremities: no clubbing, cyanosis, or edema Neuro: patient moving all extremities, no facial droop : deferred Medications: Current Facility-Administered Medications Medication Dose Route Frequency Last Rate Last Dose aspirin chewable tablet 81 mg 81 mg Oral DAILY alum-mag hydroxide-simeth (MAALOX PLUS / MAG-AL PLUS) 200-200-20 mg/5 mL suspension 30 mL 30 mLOral Q6HPRN clotrimazole (CLOTRIMAZOLE-7) 1 % vaginal cream 1 Applicator 1 Applicator Vaginal QHS 1 Applicator at 05/25/20 0021 docusate calcium (SURFAK) capsule 240 mg 240 mg Oral QHSPRN insulin NPH (HUMULIN N) injection 10 Units 10 Units Subcutaneous QPM insulin NPH (HUMULIN N) injection 22 Units 22 Units Subcutaneous QAM insulin regular human (HUMULIN R) injection 10 Units 10 Units Subcutaneous QPM insulin regular human (HUMULIN R) injection 12 Units 12 Units Subcutaneous QAM magnesium hydroxide (MILK OF MAGNESIA) 400 mg/5 mL suspension 30 mL 30 mL Oral QDAILYPRN metroNIDAZOLE (FLAGYL) tablet 500 mg 500 mg Oral BID 500 mg at 05/24/202055 vitamin w/FA (PRENATABS RX) tablet 1 tablet 1 tablet Oral DAILY 1 tablet at 352 Sliding Scale Insulin-Regular + Fsbg Testing Subcutaneous Q4H Stopped at 05/25/20 0400 ASSESSMENT AND PLAN Salome Santacruz is a 20 year old at 13w6d by u(11) who presents for vaginal spotting and admitted for diabetic control. Uncontrolled Class D (Type I) Diabetes - Diagnosed age 1, previously on insulin pump but lost insurance - On split dose insulin N20/R10 AM, and N7/R7 PM, increased to AM 22N/12R and PM 10N/10R yesterday - BS log reviewed with sugars over the past week: 108-345 fasting and 73-425 2h after breakfast, 90-298 2h after lunch and 52-381 2h after dinner, see log above - HgbA1c 9.4% on 04/16/20 - FSBG on admission: 246 - 1L NS bolus given and DKA labs collected on admission - Baseline EKG: normal sinus rhythm on 05/16/20 and again today 05/24/20 - DKA ruled out in triage based on normal pH and normal betahydroxybutyrate 05/24/2020 20:38 05/24/2020 20:57 3 OH-BUTY 0.1 TSH 1.04 NA 134 (L) K 4.4 CL 104 CO2 TOTAL 22 (L) AGAP 8 GLUCOSE 246 (H) CREATININE 0.43 (L) PH ART 7.42 PCO2 ART 33 (L) HCO3 ART 21 (L) THB ART 11.8 (L) %COHB ART 0.3 %O2HB ART 96.9 %METHB ART 0.6 GLUCOSE 226 (H) ARTERIAL BE -2.7 - 24 hour urine: ordered but not yet performed, will collect while in house (up at 0030) - On ASA 81 mg daily, continue until 36 weeks for pre-eclampsia prevention - Opthalmology and nutrition consult placed, has not been able to go yet -Seen by genetics 05/21, note still incomplete at this time - Recommend level II anatomy scan (ordered), Growth US q4 weeks after anatomy scan, NST 2x/wk at 30 weeks - SW consulted for insulin pump 05/24/2020 19:42 05/24/2020 22:54 05/25/2020 02:17 05/25/2020 03:45 POCT Blood Glucose 246 137 167 97 Vaginal spotting -reports spotting for the past week - : normal external genitalia, SSE cervix visually closed with physiologic mucus present. Brownishgreen vaginal discharge noted, no active bleeding from the cervical os. - Wet mount showing clue cells consistent with BV and yeast. - Blood type AB positive, Rhogam not indicated - Plan: flagyl BID x7d, clotrimazole nightly x7d Flank pain -endorses bilateral flank pain -no dysuria, N/V/D or fevers at home - VSS, afebrile -normal urethra on exam -Tylenol given with minimal relief -UA showing 500 glucose, no bacteria or nitrites, urine culture sent -plan: heating pad, Tylenol 6h PRN, await urine culture Bipolar disorder - reports previously taking hydroxyzine but no longer taking because it makes her too sleepy to feelwhen her sugars are low - Has referral to see psychiatry, but has not been able to get in yet Prev x1 - documented [facility] at [facility] for NRFHT COVID-19 SCREEN: Lab Results Component Value Date/Time COVID19 Not Detected 05/24/2020 07:32 PM Antepartum course reviewed - Hgb A1c 9.2 04/16/20, sero negative, Rimmune, VZVimmune, AB positive/IAT negative, GBS unk, Pap NILM 04/16/20 - H/H, plt: 12.1 / 35.8, 341 on 05/16/20 - [place] [facility] Fetus - Presentation on admission: variable - early posterior placenta visualized on R2 BSUS - FHT pending this am - Detailed level II anatomy scan ordered Dav Calvillo MD Associated attestation - Elvie Myers MD - 05/25/2020 6:43 PM CDT I was present for antepartum rounds, have seen the patient and personally participated in the decision and agree with the resident note as written. Patient Active Problem List Diagnosis Depressive disorder Attention deficit hyperactivity disorder (ADHD) Type 1 diabetes mellitus, uncontrolled DKA (diabetic ketoacidoses) Well woman exam Chronic insomnia Dyspareunia, female Supervision of high-risk Multiparity History of section Uncontrolled type 1 diabetes mellitus with hyperglycemia History of bipolar disorder Vaginal spotting 13 weeks gestation of Uncontrolled diabetes mellitus documented in this encounter Consult Notes April Napoles, RD - 05/25/2020 4:52 PM CDTAssociated Order(s): CONSULT FOOD AND NUTRITION Medical Nutrition Therapy- Consult Note: Reason For Consultation: Physician consult: Type 1 brittle diabetic diet History of Present Illness Patient admitted due to spotting and uncontrolled diabetes with left flank pain. DKA ruled out. PMH/PSH: Past Medical History: Diagnosis Date ADHD (attention [...] one was Liver disease 2015 enlarged liver Past Surgical History: Procedure Laterality Date SECTION N/A 01/30/2016 Surgeon: Renato Huffman; Location: [facility] [place] FACIAL LACERATION REPAIR 2003 INCISION AND DRAINAGE OF ABSCESS abdominal wall ORAL SURGERY PROCEDURE PSH noted. GI and Nutrition Related Findings: Symptoms: N/A Difficulty: N/A GI tract alteration: N/A Alternative means of nutrition: N/A General: N/A Medications: I have reviewed the medications currently ordered in the EMR located under the medications andMAR tabs. Current medications include: Current Facility-Administered Medications: aspirin chewable tablet 81 mg, 81 mg, Oral, DAILY, Marta Pearson MD, 81 mg at 05/25/20 0845 [START ON 05/26/2020] insulin NPH (HUMULIN N) injection 20 Units, 20 Units, Subcutaneous, QAM, Dav Calvillo MD insulin NPH (HUMULIN N) injection 7 Units, 7 Units, Subcutaneous, QPM, Dav Calvillo MD insulin regular human (HUMULIN R) injection 7 Units, 7 Units, Subcutaneous, QPM, Dav Calvillo MD Sliding Scale Insulin-Regular + Fsbg Testing, , Subcutaneous, Q4H, Dav Ulrich MD, 1 Units at 05/25/20 1623 alum-mag hydroxide-simeth (MAALOX PLUS / MAG-AL PLUS) 200-200-20 mg/5 mL suspension 30 mL, 30 mL, Oral, Q6HPRNLili Kelly, MD clotrimazole (CLOTRIMAZOLE-7) 1 % vaginal cream 1 Applicator, 1 Applicator, Vaginal, QHS, Marta Pearson MD, 1 Applicator at 05/25/20 0021 docusate calcium (SURFAK) capsule 240 mg, 240 mg, Oral, QHSPRNLili Kelly, MD insulin regular human (HUMULIN R) injection 12 Units, 12 Units, Subcutaneous, QAM, Marta Pearson MD, 12 Units at 05/25/20 0845 magnesium hydroxide (MILK OF MAGNESIA) 400 mg/5 mL suspension 30 mL, 30 mL, Oral, QDAILYPRN, Marta Pearson MD metroNIDAZOLE (FLAGYL) tablet 500 mg, 500 mg, Oral, BID, Marta Pearson MD, 500 mg at 05/25/200845 vitamin w/FA (PRENATABS RX) tablet 1 tablet, 1 tablet, Oral, DAILY, Marta Pearson MD, 1 tablet at 05/25/20 0845 Lab and Medical Test Results: NA Date Value 05/24/2020 134 mmol/L (L) 12/16/2014 135 MMOL/L K Date Value 05/24/2020 4.4 mmol/L 12/16/2014 3.4 MMOL/L (L) CALCIUM Date Value 05/24/2020 9.1 mg/dL 12/16/2014 8.4 MG/DL (L) CL Date Value 05/24/2020 104 mmol/L 12/16/2014 101 MMOL/L BUN Date Value 05/24/2020 10 mg/dL 12/16/2014 8 MG/DL CREATININE Date Value 05/24/2020 0.43 mg/dL (L) 12/16/2014 0.52 MG/DL GLUCOSE Date Value 05/24/2020 246 mg/dL (H) 12/16/2014 200 MG/DL (H) CO2 TOTAL Date Value 05/24/2020 22 mmol/L (L) 12/16/2014 21 MMOL/L (L) ALBUMIN Date Value 05/16/2020 3.7 g/dL 12/14/2014 5.4 G/DL (H) T PROTEIN Date Value 05/16/2020 6.6 g/dL 12/14/2014 8.5 G/DL (H) TOTAL BILI Date Value 05/16/2020 0.3 mg/dL 12/14/2014 0.5 MG/DL BILI UNCON Date Value 01/10/2020 0.7 mg/dL 12/14/2014 0.0 MG/DL (L) BILI CONJ Date Value 01/10/2020 0.0 mg/dL 12/14/2014 0.0 MG/DL ALT(SGPT) (U/L) Date Value 03/25/2019 6 (L) 12/14/2014 69 (H) ALTv (U/L) Date Value 05/16/2020 9 AST(SGOT) (U/L) Date Value 05/16/2020 14 12/14/2014 59 (H) ALK PHOS (U/L) Date Value 05/16/2020 52 12/14/2014 223 (H) Ref. Range 05/25/2020 16:20 POCT GLU Latest Ref Range: 70 - 110 mg/dL 154 (H) Ref. Range 05/24/2020 20:38 HGB Latest Ref Range: 11.6 - 15.0 g/dL 11.4 (L) Ref. Range 04/16/2020 14:20 HGB A1C Latest Ref Range: 4.0 - 6.0 % 9.2 (H) Nutrition Assessment: Age: [age] year old Sex: female Ht: 1.626 m / 5'4" Ht Readings from Last 3 Encounters: 05/24/20 1.626 m (5' 4.02") 05/24/20 1.626 m (5' 4") 05/17/20 1.626 m (5' 4") Current Wt: 64 kg/ 141 lb BMI: Body mass index is 24.19 kg/m. (Normal) IBW for Ht: 55 kg +/- 5.5 kg %IBW: 116% Weight History: Wt Readings from Last 20 Encounters: 05/24/20 64 kg (141 lb) 05/24/20 64.5 kg (142 lb 4 oz) 05/17/20 64 kg (141 lb) 05/16/20 62.6 kg (138 lb) 04/16/20 62.6 kg (138 lb) 04/06/20 61.7 kg (136 lb) 01/10/20 61.2 kg (135 lb) 03/25/19 59.4 kg (131 lb) 01/10/19 59.4 kg (131 lb) 07/13/18 63.5 kg (140 lb) 03/31/18 67 kg (147 lb 11.2 oz) 01/06/18 59.5 kg (131 lb 4 oz) (55 %, Z= 0.14)* 12/10/17 61.2 kg (135 lb) (62 %, Z= 0.30)* 10/14/17 60 kg (132 lb 3.2 oz) (58 %, Z= 0.20)* 10/14/17 59.5 kg (131 lb 2 oz) (56 %, Z= 0.15)* 10/09/17 61.5 kg (135 lb 8 oz) (63 %, Z= 0.34)* 07/14/17 60.4 kg (133 lb 3.2 oz) (60 %, Z= 0.26)* 06/23/17 55 kg (121 lb 3 oz) (38 %, Z= -0.31)* 05/27/17 54.1 kg (119 lb 4 oz) (34 %, Z= -0.41)* 04/14/17 57.7 kg (127 lb 4 oz) (51 %, Z= 0.02)* * Growth percentiles are based on CDC (Girls, 2-20 Years) data. Inflammatory Markers: Elevated WBC, Hyperglycemia and Increased HR (>90) Current Dietary Order(s): 2500 Calorie Diabetic Consistent Carbohydrates Diet - includes HS Snack; Texture: Regular EMR documented food allergies/intolerance/cultural preferences: onion Nutrition & Diet History: Spoke with patient today in room. Patient reports on and off GI issues consisting of upset stomach and nausea. Patient reports issues prior to and states has worsened symptoms. Due to patient with history of uncontrolled diabetes, could likely be gastroparesis. Patient reports prepregnancy weight of 135 lbs and reports taking vitamins "when she can remember". Patient reports checking blood glucose levels five times daily usually prior to and 2 hours after a meal. Patientreports that she works a [employer] and survives off cookies most of the time while working. Patient reports that she mostly eats salads at lunch doing to that being what she can tolerate. Patient reports that since she has only really been eating, salad, cooked sushi, and fresh vegetables. Patient reports she may eat breakfast if she feels like cooking and it may include eggs, waffles, pancakes. Dinner is typically salad, cereal (rice chex), or sushi. Patient reports being chicken, pork, beef make her feel sick to her stomach so she avoids. Patient reports being able to tolerate peanut butter and hot dogs. When patient with high blood glucose levels, she reports getting headaches and when she has blood sugar lows she reports dizziness. Patient reports that her sugars tend to go lower overnight. Patient reports that she follows her insulin regimen at home with novolin and humulin. Patient states that shedoesn't count CHO at home and doesn't keep snacks around for her low BG. There are multiple issues that need to be rectified including patient's ongoing issues with food intolerability. As mentioned before, this may be due to gastroparesis but MD likely have to evaluate to confirm. The patient being able to tolerate more foods may allow for patient to eat meals more consistently and maintain more adequate nutrient intake. RD also provided patient with consistent CHO nutrition therapy handouts which discussed label reading, CHO counting, and portion sizes. Please see recommendations below. RD will continue to follow. Estimated Daily Nutritional Needs: Calories: 2002 kcal/day = 31 kcal/kg current wt Protein: 10-14% of kcal need/day = 51-70 g/day = .8-1.1 g/kg current wt Carbohydrate: 35-40% of kcal need/day = 175-200 g/day = 11-13 choices Fluid: 2763-5464 mL/day (30-35 ml/kg IBW) or per MD; adjust per acute needs. Nutrition Diagnosis Unstable meal patterns related to schedule/food tolerance as evidenced by diet history. Poor glucose control related to diabetes as evidenced by HgbA1c 9.2% Nutrition Plan of Care: Intervention(s): 1. Recommend 2000 [place] Consistent CHO Diet 2. Encourage increased protein intake 3. Consistent CHO Nutrition Therapy Handouts 4. Consider adding regimen for possible gastroparesis and N/V 5. Please provide with high protein snacks Peanut Butter, ensure high protein, etc. Goal(s): 1. Patient will be able to maintain better control over blood glucose levels. 2. Patient will be able to meet >75% of nutrient needs via meals/snacks/supplements. D/C Planning: Consistent CHO Diet Throughout the day: Maintain consistent eating schedule with 3 meals daily 60-65 gm of carbohydrate per meals 15-20 gm carbohdyrate per snacks Keep snacks with you Try nutritional supplements At night: Pair carbohydrate food item with high protein food item before bed to help offset morning low BG drops Nutrition Monitoring and Evaluation: A registered dietitian will f/u as indicated to report nutrition related information and to revise the recommended nutrition intervention(s); please call with questions or concerns, thank-you. April Napoles, MS, RD, LD Clinical Dietitian RD Office: [phone] Celeste Jimenez RN - 05/25/2020 9:20 AM CDTAssociated Order(s): CONSULT LABORER [facility]are Management Note: CM received consult for "Will insurance cover insulin pump" MATTIE is not familiar with this process due to the Endocrinology - Diabetes Educators managing these patient's. CM reached out to inpatient nutrition educator and received the following response. "I only see inpatients and we do not start patients on a pump in the hospital. This is an outpatient thing. If endocrine is consulted, we would be happy to see this patient and come up with a basal/bolus regimen while inpatient and upon discharge. After patient is discharged, she should be seen in the endocrinology clinic where they can assess ifa pump is a good option for her and evaluate coverage. There is a lot of teaching involved when patients start on a pump. 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 A quick glance at her chart shows she has an issue with hypoglycemia. At a minimum, she would benefit from a Dexcom CGM (continuous glucose monitor), as this device will alert her if her glucose drops.Medicaid does cover with a PA and if the following criteria are met: ? The member has been using a SBGM and performing frequent (at least four times per day) testing. ? Insulin injections are utilized three or more times per day or is on an insulin pump. ? The members insulin treatment regimen requires frequent adjustment due to SBGM or CGM testing results. ? The member is able, or has a caregiver who is able, to learn to use the device, hear and view CGM alerts and respond appropriately. ? A member with hypoglycemia unawareness or several episodes of hypoglycemia per day may also qualify for therapeutic CGM if the above criteria are not met. CM recommends to consult Endocrinology for management of this patient. Celeste Jimenez RN, BSN Creative Resource Manager [email or web address] [phone] documented in this encounter Miscellaneous Notes Care Plan - Thais Medel RN - 05/28/2020 11:45 AM CDT Problem: Discharge Planning - Antepartum Goal: Absence of seizure activity 05/28/2020 1145 by Thais Medel RN Outcome: Adequate for discharge 05/28/2020 1144 by Thais Medel RN Outcome: Progressing as expected Goal: Absence of venous thromboembolism 05/28/2020 1145 by Thais Medel RN Outcome: Adequate for discharge 05/28/2020 1144 by Thais Medel RN Outcome: Progressing as expected Goal: Adequate for discharge 05/28/2020 1145 by Thais Medel RN Outcome: Adequate for discharge 05/28/2020 1144 by Thais Medel RN Outcome: Progressing as expected Goal: Blood pressure within specified parameters 05/28/2020 1145 by Thais Medel RN Outcome: Adequate for discharge 05/28/2020 1144 by Thais Medel RN Outcome: Progressing as expected Problem: Glucose control Goal: Glucose level within specified parameters 05/28/2020 1145 by Thais Medel RN Outcome: Adequate for discharge 05/28/2020 1144 by Thais Medel RN Outcome: Progressing as expected Thais Epperson RN - 05/28/2020 11:44 AM CDT Problem: Discharge Planning - Antepartum Goal: Absence of seizure activity Outcome: Progressing as expected Goal: Absence of venous thromboembolism Outcome: Progressing as expected Goal: Adequate for discharge Outcome: Progressing as expected Goal: Blood pressure within specified parameters Outcome: Progressing as expected Problem: Glucose control Goal: Glucose level within specified parameters Outcome: Progressing as expected are Monet Chery RN - 05/28/2020 1:05 AM CDT Problem: Discharge Planning - Antepartum Goal: Absence of seizure activity Outcome: Progressing as expected Goal: Absence of venous thromboembolism Outcome: Progressing as expected Goal: Adequate for discharge Outcome: Progressing as expected Goal: Blood pressure within specified parameters Outcome: Progressing as expected Problem: Glucose control Goal: Glucose level within specified parameters Outcome: Progressing as expected Thais Epperson RN - 05/27/2020 5:45 PM CDT Problem: Discharge Planning - Antepartum Goal: Absence of seizure activity 05/27/2020 1745 by Thais Medel RN Outcome: Progressing as expected 05/27/2020 0954 by Thais Medel RN Outcome: Progressing as expected Goal: Absence of venous thromboembolism 05/27/2020 1745 by hTais Medel RN Outcome: Progressing as expected 05/27/2020 0954 by Thais Medel RN Outcome: Progressing as expected Goal: Adequate for discharge 05/27/2020 1745 by Thais Medel RN Outcome: Progressing as expected 05/27/2020 0954 by Thais Medel RN Outcome: Progressing as expected Goal: Blood pressure within specified parameters 05/27/2020 1745 by Thais Medel RN Outcome: Progressing as expected 05/27/2020 0954 by Thais Medel RN Outcome: Progressing as expected Problem: Glucose control Goal: Glucose level within specified parameters 05/27/2020 1745 by Thais Medel RN Outcome: Progressing as expected 05/27/2020 0954 by Thais Medel RN Outcome: Progressing as expected are Thais Reese RN - 05/27/2020 9:54 AM CDT Problem: Discharge Planning - Antepartum Goal: Absence of seizure activity Outcome: Progressing as expected Goal: Absence of venous thromboembolism Outcome: Progressing as expected Goal: Adequate for discharge Outcome: Progressing as expected Goal: Blood pressure within specified parameters Outcome: Progressing as expected Problem: Glucose control Goal: Glucose level within specified parameters Outcome: Progressing as expected RTCMonet Sagastume RN - 05/26/2020 10:26 PM CDT Problem: Discharge Planning - Antepartum Goal: Absence of seizure activity Outcome: Progressing as expected Goal: Absence of venous thromboembolism Outcome: Progressing as expected Goal: Adequate for discharge Outcome: Progressing as expected Goal: Blood pressure within specified parameters Outcome: Progressing as expected Problem: Glucose control Goal: Glucose level within specified parameters Outcome: Progressing as expected are Plan - Thais Medel RN - 05/26/2020 10:20 AM CDT Problem: Discharge Planning - Antepartum Goal: Absence of seizure activity Outcome: Progressing as expected Goal: Absence of venous thromboembolism Outcome: Progressing as expected Goal: Adequate for discharge Outcome: Progressing as expected Goal: Blood pressure within specified parameters Outcome: Progressing as expected Problem: Glucose control Goal: Glucose level within specified parameters Outcome: Progressing as expected are Joni - Laura Clark RN - 05/25/2020 8:38 PM CDT Problem: Discharge Planning - Antepartum Goal: Absence of seizure activity Outcome: Progressing as expected Goal: Absence of venous thromboembolism Outcome: Progressing as expected Goal: Adequate for discharge Outcome: Progressing as expected Goal: Blood pressure within specified parameters Outcome: Progressing as expected Problem: Glucose control Goal: Glucose level within specified parameters Outcome: Progressing as expected Care Plan - Ashleigh Allen RN - 05/25/2020 4:33 PM CDT Problem: Discharge Planning - Antepartum Goal: Absence of seizure activity Outcome: Progressing as expected Goal: Absence of venous thromboembolism Outcome: Progressing as expected Goal: Adequate for discharge Outcome: Progressing as expected Goal: Blood pressure within specified parameters Outcome: Progressing as expected Problem: Glucose control Goal: Glucose level within specified parameters Outcome: Progressing as expected are Plan - Elisha Li RN - 05/25/2020 12:34 AM CDT Problem: Discharge Planning - Antepartum Goal: Absence of seizure activity Outcome: Progressing as expected Goal: Absence of venous thromboembolism Outcome: Progressing as expected Goal: Adequate for discharge Outcome: Progressing as expected Goal: Blood pressure within specified parameters Outcome: Progressing as expected Problem: Glucose control Goal: Glucose level within specified parameters Outcome: Progressing as expected documented in this encounter Plan of Treatment Date Type Specialty Care Team Description 06/04/2020 Telemedicine Visit [facility] Faculty, Harvey Capellan m Name Type Priority Associated Diagnoses Order S chedule EKG-12 LEAD ROUTINE HEART STATION STAT ONCE fo r 1 Occurrences starting 2019 until 0 Health [...] 07/22/2012 10/22/2017 ([place]) CREATININE (SERUM) 05/24/2021 05/24/2020, 05/16/2020, 01/10/2020, Additional history exists PAP SMEAR 04/16/2023 04/16/2020, [...] encounter Procedures Procedure Name Priority Date/Time Associated Comments Diagnosis POCT GLUCOSE Routine 05/28/2020 1:23 Results for this (AUTOMATED) PM CDT procedure are i n the results section. POCT GLUCOSE Routine 05/28/2020 12:42 Results for this (AUTOMATED) PM CDT procedure are i n the results section. POCT GLUCOSE Routine 05/28/2020 11:37 Results for this (AUTOMATED) AM CDT procedure are i n the results section. POCT GLUCOSE Routine 05/28/2020 8:44 Results for this (AUTOMATED) AM CDT procedure are i n the results section. POCT GLUCOSE Routine 05/28/2020 5:50 Results for this (AUTOMATED) AM CDT procedure are i n the results section. POCT GLUCOSE Routine 05/28/2020 4:09 Results for this (AUTOMATED) AM CDT procedure are i n the results section. POCT GLUCOSE Routine 05/27/2020 10:40 Results for this (AUTOMATED) PM CDT procedure are i n the results section. POCT GLUCOSE Routine 05/27/2020 9:17 Results for this (AUTOMATED) PM CDT procedure are i n the results section. POCT GLUCOSE Routine 05/27/2020 8:18 Results for this (AUTOMATED) PM CDT procedure are i n the results section. POCT GLUCOSE Routine 05/27/2020 6:20 Results for this (AUTOMATED) PM CDT procedure are i n the results section. POCT GLUCOSE Routine 05/27/2020 4:29 Results for this (AUTOMATED) PM CDT procedure are i n the results section. POCT GLUCOSE Routine 05/27/2020 3:35 Results for this (AUTOMATED) PM CDT procedure are i n the results section. POCT GLUCOSE Routine 05/27/2020 11:41 Results for this (AUTOMATED) AM CDT procedure are i n the results section. POCT GLUCOSE Routine 05/27/2020 9:02 Results for this (AUTOMATED) AM CDT procedure are i n the results section. POCT GLUCOSE Routine 05/27/2020 5:11 Results for this (AUTOMATED) AM CDT procedure are i n the results section. POCT GLUCOSE Routine 05/27/2020 3:46 Results for this (AUTOMATED) AM CDT procedure are i n the results section. POCT GLUCOSE Routine 05/26/2020 8:52 Results for this (AUTOMATED) PM CDT procedure are i n the results section. POCT GLUCOSE Routine 05/26/2020 6:07 Results for this (AUTOMATED) PM CDT procedure are i n the results section. POCT GLUCOSE Routine 05/26/2020 4:29 Results for this (AUTOMATED) PM CDT procedure are i n the results section. POCT GLUCOSE Routine 05/26/2020 1:02 Results for this (AUTOMATED) PM CDT procedure are i n the results section. POCT GLUCOSE Routine 05/26/2020 12:44 Results for this (AUTOMATED) PM CDT procedure are i n the results section. POCT GLUCOSE Routine 05/26/2020 11:29 Results for this (AUTOMATED) AM CDT procedure are i n the results section. POCT GLUCOSE Routine 05/26/2020 8:03 Results for this (AUTOMATED) AM CDT procedure are i n the results section. PROTEIN QUANT U/24H Routine 05/26/2020 12:37 Resu lts for this AM CDT procedure are i n the results section. CREATININE U 24 HR Routine 05/26/2020 12:37 Resul ts for this AM CDT procedure are i n the results section. POCT GLUCOSE Routine 05/25/2020 9:12 Results for this (AUTOMATED) PM CDT procedure are i n the results section. POCT GLUCOSE Routine 05/25/2020 8:12 Results for this (AUTOMATED) PM CDT procedure are i n the results section. POCT GLUCOSE Routine 05/25/2020 5:03 Results for this (AUTOMATED) PM CDT procedure are i n the results section. POCT GLUCOSE Routine 05/25/2020 4:20 Results for this (AUTOMATED) PM CDT procedure are i n the results section. POCT GLUCOSE Routine 05/25/2020 3:31 Results for this (AUTOMATED) PM CDT procedure are i n the results section. POCT GLUCOSE Routine 05/25/2020 11:16 Results for this (AUTOMATED) AM CDT procedure are i n the results section. POCT GLUCOSE Routine 05/25/2020 10:31 Results for this (AUTOMATED) AM CDT procedure are i n the results section. POCT GLUCOSE Routine 05/25/2020 8:23 Results for this (AUTOMATED) AM CDT procedure are i n the results section. POCT GLUCOSE Routine 05/25/2020 3:45 Results for this (AUTOMATED) AM CDT procedure are i n the results section. POCT GLUCOSE Routine 05/25/2020 2:17 Results for this (AUTOMATED) AM CDT procedure are i n the results section. POCT GLUCOSE Routine 05/24/2020 10:54 Results for this (AUTOMATED) PM CDT procedure are i n the results section. URINE CULTURE THIEN 05/24/2020 10:52 Results fo r this PM CDT procedure are i n the results section. ABG+COOX+NA+K+GLU+CA2+ STAT 05/24/2020 8:57 R esults for this PM CDT procedure are i n the results section. HB ABO GROUPING Routine 05/24/2020 8:43 Results for this PM CDT procedure are i n the results section. URINALYSIS STAT 05/24/2020 8:38 Results for this PM CDT procedure are i n the results section. CBC WITH DIFF STAT 05/24/2020 8:38 Results fo r this PM CDT procedure are i n the results section. BASIC METABOLIC PANEL STAT 05/24/2020 8:38 Re sults for this (NA, K, CL, CO2, PM CDT procedure a re in GLUCOSE, BUN, the results CREATININE, CA) section. THYROID STIMULATING Add-on 05/24/2020 8:38 Resu lts for this HORMONE PM CDT procedure are i n the results section. BETA HYDROXY-BUTYRATE STAT 05/24/2020 8:38 Re sults for this PM CDT procedure are i n the results section. POCT GLUCOSE Routine 05/24/2020 7:42 Results for this (AUTOMATED) PM CDT procedure are i n the results section. LAB ONLY COVID Routine 05/24/2020 7:32 Results f or this INTERPRETATION PM CDT procedure are in the results section. COVID-19 (ID NOW RAPID THIEN 05/24/2020 7:32 R esults for this TESTING) PM CDT procedure are i n the results section. documented in this encounter Results POCT GLUCOSE (AUTOMATED) (05/28/2020 1:23 PM CDT) Pathologist Sig nature POCT GLU 119 (H) 70 - 110 mg/dL [facility] Specimen Blood Performing Organization Address City/State/Zipcode Phone Number [facility] CLIA: [id number] [place], [place] [address] [place] [address] POCT GLUCOSE (AUTOMATED) (05/28/2020 12:42 PM CDT) Pathologist Sig nature POCT GLU 47 (LL) 70 - 110 mg/dL [facility] Specimen Blood Performing Organization Address [facility] Phone Number [facility] CLIA: [id number] [place] [address] [phone] [address] [facility] POCT GLUCOSE (AUTOMATED) (05/28/2020 11:37 AM CDT) Pathologist Sig nature POCT GLU 99 70 - 110 mg/dL [facility] Specimen Blood Performing Organization Address [facility] Phone Number [facility] CLIA: [id number] [place] [address] [phone] [address] [facility] POCT GLUCOSE (AUTOMATED) (05/28/2020 8:44 AM CDT) Pathologist Sig nature POCT GLU 219 (H) 70 - 110 mg/dL [facility] Specimen Blood Performing Organization Address [facility] Phone Number [facility] CLIA: [id number] [place] [address] [phone] [address] [facility] POCT GLUCOSE (AUTOMATED) (05/28/2020 5:50 AM CDT) Pathologist Sig nature POCT GLU 137 (H) 70 - 110 mg/dL [facility] Specimen Blood Performing Organization Address [facility] Phone Number [facility] CLIA: [id number] [place] [address] [phone] [address] [facility] POCT GLUCOSE (AUTOMATED) (05/28/2020 4:09 AM CDT) Pathologist Sig nature POCT GLU 54 (L) 70 - 110 mg/dL [facility] Specimen Blood Performing Organization Address [facility] Phone Number [facility] CLIA: [id number] [place] [address] [phone] [address] [facility] POCT GLUCOSE (AUTOMATED) (05/27/2020 10:40 PM CDT) Pathologist Sig nature POCT GLU 46 (LL) 70 - 110 mg/dL [facility] Specimen Blood Performing Organization Address [facility] Phone Number [facility] CLIA: [id number] [place] [address] [phone] [address] [facility] POCT GLUCOSE (AUTOMATED) (05/27/2020 9:17 PM CDT) Pathologist Sig nature POCT GLU 83 70 - 110 mg/dL [facility] Specimen Blood Performing Organization Address [facility] Phone Number [facility] CLIA: [id number] [place] [address] [phone] [address] [facility] POCT GLUCOSE (AUTOMATED) (05/27/2020 8:18 PM CDT) Pathologist Sig nature POCT GLU 63 (L) 70 - 110 mg/dL [facility] Specimen Blood Performing Organization Address [facility] Phone Number [facility] CLIA: [id number] [place] [address] [phone] [address] [facility] POCT GLUCOSE (AUTOMATED) (05/27/2020 6:20 PM CDT) Pathologist Sig nature POCT GLU 149 (H) 70 - 110 mg/dL [facility] Specimen Blood Performing Organization Address [facility] Phone Number [facility] CLIA: [id number] [place] [address] [phone] [address] [facility] POCT GLUCOSE (AUTOMATED) (05/27/2020 4:29 PM CDT) Pathologist Sig nature POCT GLU 86 70 - 110 mg/dL [facility] Specimen Blood Performing Organization Address [facility] Phone Number [facility] CLIA: [id number] [place], [place] [address] [address] POCT GLUCOSE (AUTOMATED) (05/27/2020 3:35 PM CDT) Pathologist Sig nature POCT GLU 59 (L) 70 - 110 mg/dL [facility] Specimen Blood Performing Organization Address [facility] Phone Number [facility] CLIA: [id number] [place] [address] [phone] [address] [facility] POCT GLUCOSE (AUTOMATED) (05/27/2020 11:41 AM CDT) Pathologist Sig nature POCT GLU 203 (H) 70 - 110 mg/dL [facility] Specimen Blood Performing Organization Address City/[facility] Phone Number [facility] CLIA: [id number] [place] [address] [phone] [address] [facility] POCT GLUCOSE (AUTOMATED) (05/27/2020 9:02 AM CDT) Pathologist Sig nature POCT GLU 108 70 - 110 mg/dL [facility] Specimen Blood Performing Organization Address [facility] Phone Number [facility] CLIA: [id number] [place] [address] [phone] [address] [facility] POCT GLUCOSE (AUTOMATED) (05/27/2020 5:11 AM CDT) Pathologist Sig nature POCT GLU 132 (H) 70 - 110 mg/dL [facility] Specimen Blood Performing Organization Address [facility] Phone Number [facility] CLIA: [id number] [place] [address] [phone] [address] [facility] POCT GLUCOSE (AUTOMATED) (05/27/2020 3:46 AM CDT) Pathologist Sig nature POCT GLU 55 (L) 70 - 110 mg/dL [facility] Specimen Blood Performing Organization Address [facility] Phone Number [facility] CLIA: [id number] [place] [address] [phone] [address] [facility] POCT GLUCOSE (AUTOMATED) (05/26/2020 8:52 PM CDT) Pathologist Sig nature POCT GLU 177 (H) 70 - 110 mg/dL [facility] Specimen Blood Performing Organization Address [facility] Phone Number [facility] CLIA: [id number] [place] [address] [phone] [address] [facility] POCT GLUCOSE (AUTOMATED) (05/26/2020 6:07 PM CDT) Pathologist Sig nature POCT GLU 215 (H) 70 - 110 mg/dL [facility] Specimen Blood Performing Organization Address [facility] Phone Number [facility] CLIA: [id number] [place] [address] [phone] [address] [facility] POCT GLUCOSE (AUTOMATED) (05/26/2020 4:29 PM CDT) Pathologist Sig nature POCT GLU 182 (H) 70 - 110 mg/dL [facility] Specimen Blood Performing Organization Address [facility] Phone Number [facility] CLIA: [id number] [place] [address] [phone] [address] [facility] POCT GLUCOSE (AUTOMATED) (05/26/2020 1:02 PM CDT) Pathologist Sig nature POCT GLU 58 (L) 70 - 110 mg/dL [facility] Specimen Blood Performing Organization Address [facility] Phone Number [facility] CLIA: [id number] [place] [address] [phone] [address] [facility] POCT GLUCOSE (AUTOMATED) (05/26/2020 12:44 PM CDT) Pathologist Sig nature POCT GLU 45 (LL) 70 - 110 mg/dL [facility] Specimen Blood Performing Organization Address [facility] Phone Number [facility] CLIA: [id number] [place] [address] [phone] [address] [facility] POCT GLUCOSE (AUTOMATED) (05/26/2020 11:29 AM CDT) Pathologist Sig nature POCT GLU 146 (H) 70 - 110 mg/dL [facility] Specimen Blood Performing Organization Address [facility] Phone Number [facility] CLIA: [id number] [place] [address] [place] [address] POCT GLUCOSE (AUTOMATED) (05/26/2020 8:03 AM CDT) Pathologist Sig nature POCT GLU 117 (H) 70 - 110 mg/dL [facility] Specimen Blood Performing Organization Address City/[facility] Phone Number [facility] CLIA: [id number] [place] [address] [phone] [address] [facility] PROTEIN QUANT U/24H (05/26/2020 12:37 AM CDT) Pathologist Sig nature T. VOL U 2,600Comment: mL [facility] Completed 05/26/2020 SERVICES @ 0030 HR COLLECT 24Comment: Started Hours [facility] 05/25/2020 @ 0030 SERVICES T. PROT U 14 mg/dL [facility] PRO U/24HR 364 (H) <150 mg/24h [facility] Specimen Urine - URINE, CLEAN CATCH Performing Organization Address [facility] Phone Number [facility] CLIA: [id number] [place] [address] [place] [address] CREATININE U 24 HR (05/26/2020 12:37 AM CDT) T. VOL U 2,600Comment: mL [facility] Completed SERVICES 05/26/2020 @ 0030 HR COLLECT 24Comment: Started Hours [facility] 05/25/2020 @ 0030 SERVICES CREAT U 33.8 mg/dL [facility] CREA U/24H 0.9 0.8 - 1.8 g/24H [facility] Specimen Urine - URINE, CLEAN CATCH Performing Organization Address City/[facility] Phone Number [facility] CLIA: [id number] [place] [address] [phone] 301 [facility] POCT GLUCOSE (AUTOMATED) (05/25/2020 9:12 PM CDT) Pathologist Sig nature POCT GLU 104 70 - 110 mg/dL [facility] Specimen Blood Performing Organization Address City/[facility] Phone Number [facility] CLIA: [id number] [place] [address] [address] POCT GLUCOSE (AUTOMATED) (05/25/2020 8:12 PM CDT) Pathologist Sig nature POCT GLU 67 (L) 70 - 110 mg/dL [facility] Specimen Blood Performing Organization Address [facility] Phone Number [facility] CLIA: [id number] [place] [address] [phone] [address] [facility] POCT GLUCOSE (AUTOMATED) (05/25/2020 5:03 PM CDT) Pathologist Sig nature POCT GLU 159 (H) 70 - 110 mg/dL [facility] Specimen Blood Performing Organization Address [facility] Phone Number [facility] CLIA: [id number] [place] [address] [phone] [address] [facility] POCT GLUCOSE (AUTOMATED) (05/25/2020 4:20 PM CDT) Pathologist Sig nature POCT GLU 154 (H) 70 - 110 mg/dL [facility] Specimen Blood Performing Organization Address [facility] Phone Number [facility] CLIA: [id number] [place] [address] [phone] [address] [facility] POCT GLUCOSE (AUTOMATED) (05/25/2020 3:31 PM CDT) Pathologist Sig nature POCT GLU 145 (H) 70 - 110 mg/dL [facility] Specimen Blood Performing Organization Address [facility] Phone Number [facility] CLIA: [id number] [place] [address] [phone] [address] [facility] POCT GLUCOSE (AUTOMATED) (05/25/2020 11:16 AM CDT) Pathologist Sig nature POCT GLU 33 (LL) 70 - 110 mg/dL [facility] Specimen Blood Performing Organization Address [facility] Phone Number [facility] CLIA: [id number] [place] [address] [phone] [address] [facility] POCT GLUCOSE (AUTOMATED) (05/25/2020 10:31 AM CDT) Pathologist Sig nature POCT GLU 84 70 - 110 mg/dL [facility] Specimen Blood Performing Organization Address [facility] Phone Number [facility] CLIA: [id number] [place] [address] [phone] [address] [facility] POCT GLUCOSE (AUTOMATED) (05/25/2020 8:23 AM CDT) Pathologist Sig nature POCT GLU 83 70 - 110 mg/dL [facility] Specimen Blood Performing Organization Address [facility] Phone Number [facility] CLIA: [id number] [place] [address] [phone] [address] [facility] POCT GLUCOSE (AUTOMATED) (05/25/2020 3:45 AM CDT) Pathologist Sig nature POCT GLU 97 70 - 110 mg/dL [facility] Specimen Blood Performing Organization Address [facility] Phone Number [facility] CLIA: [id number] [place] [address] [phone] [address] [facility] POCT GLUCOSE (AUTOMATED) (05/25/2020 2:17 AM CDT) Pathologist Sig nature POCT GLU 167 (H) 70 - 110 mg/dL [facility] Specimen Blood Performing Organization Address [facility] Phone Number [facility] CLIA: [id number] [place] [address] [phone] [address] [facility] POCT GLUCOSE (AUTOMATED) (05/24/2020 10:54 PM CDT) Pathologist Sig nature POCT GLU 137 (H) 70 - 110 mg/dL [facility] Specimen Blood Performing Organization Address [facility] Phone Number [facility] CLIA: [id number] [place] [address] [phone] [address] [facility] URINE CULTURE (05/24/2020 10:52 PM CDT) Pathologist Sig nature URINE CULTURE No aerobic growth [facility] (< 1000 CFU/mL) SERVICES Specimen Urine - URINE, CLEAN CATCH Performing Organization Address City/[facility] Phone Number [facility] CLIA: [id number] [place] [address] [place] [address] ABG+COOX+NA+K+GLU+CA2+ (05/24/2020 8:57 PM CDT) Pathologist Sig nature PH 7.42 7.35 - 7.45 [facility] PCO2 33 (L) 35 - [address] [facility] PO2 125 (H) 80 - [address] [facility] HCO3 21 (L) 22 - 26 mEq/L [facility] BE -2.7 -3.0 - 3.0 mEq/L [facility] THB 11.8 (L) 12.0 - 16.0 g/dL [facility] %O2HB 96.9 94.0 - 99.0 % [facility] %COHB ART 0.3 0.0 - 1.5 % [facility] %METHB ART 0.6 0.4 - 1.5 % [facility] VOL%O2 ART 16.3 15.0 - 23.0 % [facility] NA 133 (L) 135 - 145 mmol/L [facility] K+ 3.8 3.5 - 5.0 mmol/L [facility] AC CA IONZ 4.60 4.50 - 5.30 mg/dL [facility] SERVICE S GLUCOSE 226 (H) 70 - 110 mg/dL [facility] Specimen Blood Performing Organization Address City/[facility] Phone Number [facility] CLIA: [id number] [place] [address] [place] [address] Type and Screen - ONCE Routine (05/24/2020 8:43 PM CDT) Pathologist Sig nature ABO & RH AB POSITIVE LAB Comment: Performed at [facility] Laboratory Services - [facility] Blood [place] [address] Toll Free: [phone] CLIA No. [id number] IAT Negative LAB Comment: Performed at [facility] Laboratory Services - [facility] Blood [place] [address] Toll Free: [phone] CLIA No. [id number] Specimen Blood - VENOUS Performing Organization Address City/[facility]/Zipcode Phone Number [facility] THYROID STIMULATING HORMONE (05/24/2020 8:38 PM CDT) Pathologist Sig nature TSH 1.04 0.45 - 4.70 mIU/L [facility] SERVICE S Specimen Blood - ARM, RIGHT Performing Organization Address [facility] Cent[facility] Phone Number [facility] CLIA: [id number] [place] [address] [place] [address] URINALYSIS (05/24/2020 8:38 PM CDT) Pathologist Sig nature APPEARANCE Clear Clear [facility] COLOR Yellow Yellow [facility] PH 6.0 4.8 - 8.0 [facility] SP GRAVITY 1.016 1.003 - 1.030 [facility] GLU U QUAL 500 mg/dL (A) Normal [facility] BLOOD Negative Negative [facility] KETONES Negative Negative [facility] PROTEIN Negative Negative [facility] UROBILIN Normal Normal [facility] BILIRUBIN Negative Negative [facility] NITRITE Negative Negative [facility] LEUK MANN 25/uL (A) Negative [facility] RBC/HPF 1 0 - [address] [facility] WBC/HPF 2 0 - [address] [facility] BACTERIA Negative Negative [facility] MUCOUS Slight (A) Negative LPF [facility] SQ EPITH <1 <=[address] [facility] Specimen Urine - URINE, CLEAN CATCH Performing Organization Address [facility] Phone Number [facility] CLIA: [id number] [place] [address] [place] [address] BETA HYDROXY-BUTYRATE (05/24/2020 8:38 PM CDT) Pathologist Sig nature BOH 0.1 mmol/L [facility] Specimen Blood - ARM, RIGHT Narrative Performed At Normal Ranges: [facility] Nonfasting Less th an 0.1 mmol/L Overnight Fast Less than 0.4 mmol/L Fasting (1-2 weeks) 6-8 mmol/L Test developed and characteristics determined by [facility]. Performing Organization Address City/[facility] Phone Number [facility] CLIA: [id number] [place] [address] [place] [address] BASIC METABOLIC PANEL (NA, K, CL, CO2, GLUCOSE, BUN, CREATININE, CA) (05/24/2020 8:38 PM CDT) NA 134 (L) 135 - 145 [facility] mmol/L SERVICES K 4.4 3.5 - 5.0 [facility] mmol/L SERVICES CL 104 98 - 108 mmol/L [facility] SERVICES CO2 TOTAL 22 (L) 23 - 31 mmol/L [facility] SERVICES AGAP 8 2 - 16 [facility] SERVICES BUN 10 7 - 23 mg/dL [facility] SERVICES GLUCOSE 246 (H) 70 - 110 mg/dL [facility] SERVICES CREATININE 0.43 (L) 0.50 - 1.04 [facility] mg/dL SERVICES CALCIUM 9.1 8.6 - 10.6 [facility] mg/dL SERVICES eGFR Calculation 183.6 mL/min/1.73m2 [facility] (Non- SERVICES [place]) eGFR Calculation 222.5 mL/min/1.73m2 [facility] () SERVICES Specimen Blood - ARM, RIGHT Narrative Performed At Association of Glomerular Filtration Rate (GFR) and St aging [facility] SERVICES of Kidney Disease* + + +------- ------ + | GFR (mL/min/1.73 m2) | With Kidney Damage | [facility] Kidney Damage + + +------- ------ + | >90 | Stage one | Normal + + +------- ------ + | 60-89 | Stage two | Decreased GFR + + +------- ------ + | 30-59 | Stage three | Stage three + + +------- ------ + | 15-29 | Stage four | Stage four + + +------- ------ + | <15 (or dialysis) | Stage five | Stage five + + +------- ------ + *Each stage assumes the associated GFR level has been in effect for at least three months. Stages 1 to 5, wit h or without kidney disease, indicate chronic kidney disease. Notes: Determination of stages one and two (with eGFR >59mL/min/1.73 m2) requires estimation of kidney damag e for at least three months as defined by structural or func tional abnormalities of the kidney, manifested by either: Pathological abnormalities or Markers of kidney damage (including abnormalities in the composition of the blo od or urine or abnormalities in imaging tests) . Performing Organization Address City/State/Zipcode Phone Number [facility] SERVICES CLIA: [id number] [place] [address] [place] [address] CBC WITH DIFF (05/24/2020 8:38 PM CDT) Pathologist Sig nature WBC 11.90 (H) 4.30 - 11.10 [facility] 10*3/L SERVICES RBC 3.90 (L) 3.93 - 5.25 [facility] 10*6/L SERVICES HGB 11.4 (L) 11.6 - 15.0 [facility] g/dL SERVICES HCT 32.4 (L) 35.7 - 45.2 % [facility] SERVICES MCV 83.1 80.6 - 95.5 fL [facility] SERVICES MCH 29.2 25.9 - 32.8 pg [facility] MCHC 35.2 (H) 31.6 - 35.1 [facility] g/dL SERVICES RDW-SD 39.0 39.0 - 49.9 fL [facility] SERVICES RDW-CV 12.9 12.0 - 15.5 % [facility] PLT 315 166 - 358 [facility] 10*3/L SERVICES MPV 9.4 (L) 9.5 - 12.9 fL [facility] SERVICES NRBC/100 WBC 0.0 0.0 - 10.0 /100 [facility] WBCs SERVICES NRBC x10^3 <0.01 10*3/L [facility] GRAN MAT (NEUT) % 65.8 % [facility] IMM GRAN % 0.40 % [facility] LYMPH % 27.2 % [facility] MONO % 5.0 % [facility] EOS % 1.1 % [facility] BASO % 0.5 % [facility] GRAN MAT x10^3(ANC) 7.83 (H) 1.88 - 7.09 [facility] 10*3/uL SERVICES IMM GRAN x10^3 0.05 0.00 - 0.06 [facility] 10*3/uL SERVICES LYMPH x10^3 3.24 1.32 - 3.29 [facility] 10*3/uL SERVICES MONO x10^3 0.59 0.33 - 0.92 [facility] 10*3/uL SERVICES EOS x10^3 0.13 0.03 - 0.39 [facility] 10*3/uL SERVICES BASO x10^3 0.06 0.01 - 0.07 [facility] 10*3/uL SERVICES Specimen Blood - ARM, RIGHT Performing Organization Address City/[facility]/Zipcode Phone Number [facility] CLIA: [id number] [place] [address] [place] [address] POCT GLUCOSE (AUTOMATED) (05/24/2020 7:42 PM CDT) Pathologist Sig nature POCT GLU 246 (H) 70 - 110 mg/dL [facility] Specimen Blood Performing Organization Address City/[facility]/Zipcode Phone Number [facility] CLIA: [id number] [place] [address] [place] [address] [facility] ONLY COVID INTERPRETATION (05/24/2020 7:32 PM CDT) COVID DMT Interpretation/Recommendatio nsTests (PCR) for Active Infection by COVID-19 Virus:This patient has tested negative for the COVID-19 virus on two occasions. For approximately two thirds of patients with a negative test, the patient is truly negative [facility] Interpretation and has not been infected wi th the COVID-19 virus. However, for those tested using a nasopharyngeal sample each time the test is performed, there is approximately a [id number] chance that the once dale SERVICES [place] patient has indeed been infected and the result is a false negative. This oc curs because the virus is predominantly in the lung and out of reach of the nasopharyngeal swab. Importantly, however, this patient has tested negative twice. Especially if t here were minimal or no symptoms of the infection, this makes a false negative result less likely for this patient.Tests for IgM and/or IgG Antibodies to COVID-19 Virus: A. A blood sample collected from this patient revealed a negative test for IgG antibodies to the COVID-19 virus. IgG antibodies to the COVID-19 virus can ap pear before, after, during the presence of IgM antibodies. The negative IgG test makes it likely that the patient has not been infected with the COVID-19 virus. However, it may be too early in the course of this patient's infection for the IgG respon se to occur. B. It would be informative to test the patient at least 3-to-4 weeks post onset of symptoms for both IgG and IgM antibodies. IgM antibodies may also have be en generated. If negative, the result supports the conclusion that the patient has not been infected with the COVID-19 virus. C. At this time, it is not known if the production of antibodies indicates whether the patient is immune to future infecti ons with the COVID-19 virus. D. Although it is uncommon, some patients david ot ever mount an antibody response to infectious agents, such as COVID-19. If there are persistently negative results for IgM and IgG antibodies, this may be the explanation. COVID Results SARS-CoV-2 Rapid ID NOW (no units) [facility] Date Value SERVICES 05/24/2020 Not Detected 05/16/2020 Not Detected CoV-2 IgG (no units) Date Value 04/16/2020 Negative Specimen Swab - NASOPHARYNGEAL SWAB Performing Organization Address City/[facility] Phone Number [facility] SERVICES CLIA: [id number] [place] [address] [place] [address] COVID-19 (ID NOW RAPID TESTING) (05/24/2020 7:32 PM CDT) SARS-CoV-2 Rapid ID Not Detected Not Detected [facility] NOW SERVICES Specimen Swab - NASOPHARYNGEAL SWAB Narrative Performed At ID NOW COVID-19 Assay is an isothermal nucleic acid [facility] SERVICES amplification test intended for the qualitative detect ion of nucleic acid from SARS-CoV-2 viral RNA in nasopharynge al ([facility] [employer]) specimens. It is used under Emergency Use Authori zation (EUA) by FDA. The limit of detection (LOD) of the assa y is 125 Genome Equivalents/mL. A positive result is indicative of the presence of SARS-CoV-2 RNA. Clinical correlation with patient hi story and other diagnostic information is necessary to deter mine patient infection status. A negative (Not Detected) result does not preclude SARS-CoV-2 infection. In patients with clinical sympto ms and other tests that are consistent with SARS-CoV-2 infect ion, negative results should be treated as presumptive nega tive and a new specimen should be tested with alternative P CR molecular test. Invalid: Please collect a new specimen for repeat avril ent testing if clinically indicated. Performing Organization Address City/[facility]/Zipcode Phone Number [facility] CLIA: [id number] [place] [address] [place] [address] documented in this encounter Visit Diagnoses Diagnosis Bacterial vaginosis Vaginitis and vulvovaginitis, unspecifie d Vaginal candidiasis Candidiasis of vulva and vagina Uncontrolled type 1 diabetes mellitus wi th hypoglycemia without coma History of section Other postprocedural status History of bipolar disorder Personal history of affective disorder Vaginal spotting Other specified noninflammatory disorder of vagina 13 weeks gestation of state, incidental Uncontrolled diabetes mellitus Type II or unspecified type diabetes enzo litus without mention of complication, uncontrolled documented in this encounter Administered Medications Medication Order MAR Action Action Date Dose Rate Site acetaminophen (TYLENOL) tablet Given 05/26/2020 8:52 PM CDT 650 mg 650 mg 650 mg, Oral, Q6HPRN, Starting Thu05/25/20 at 2012, Until Discontinued, Routine, Pain (scale 4-6) Given 05/26/2020 4:53 PM CDT 650 mg Given 05/25/2020 9:13 PM CDT 650 mg alum-mag hydroxide-simeth (MAALOX PLUS / Given 05/25/2020 9:14 PM CDT 30 mL MAG-AL PLUS) 200-200-20 mg/5 mL suspension 30 mL 30 mL, Oral, Q6HPRN, Starting Thu05/24/20 at 2258, Until Discontinued, Routine, Indigestion aspirin chewable tablet 81 mg Given 05/28/2020 8:56 AM CDT 81 mg 81 mg, Oral, DAILY, First dose on Thu05/25/20 at 0900, Until Discontinued, Routine Given 05/27/2020 9:10 AM CDT 81 mg Given 05/26/2020 8:58 AM CDT 81 mg clotrimazole (CLOTRIMAZOLE-7) 1 % Given 05/27/2020 9:00 PM CDT 1 Applicator vaginal cream 1 Applicator 1 Applicator, Vaginal, QHS, 7 doses, First dose on Thu05/24/20 at 2100, Last dose on Thu05/30/20 at 2100, Routine Applied 05/26/2020 9:00 PM CDT 1 Applicator Given 05/25/2020 10:14 PM CDT 1 Applicator docusate calcium (SURFAK) capsule 240 mg 240 mg, Oral, QHSPRN, Starting 05/24 at 2258, Until Discontinued, Routine, Constipation famotidine (PEPCID AC) tablet 20 mg Given 05/28/2020 8:04 AM CDT 20 mg 20 mg, Oral, BID MEALS, First dose on Thu05/27/20 at 0800, Until Discontinued, Routine Given 05/27/2020 4:37 PM CDT 20 mg Given 05/27/2020 8:17 AM CDT 20 mg insulin NPH (HUMULIN N) Given 05/28/2020 8:55 AM CDT 18 Units Right Upper Arm-SC injection 18 Units 18 Units, Subcutaneous, QAM, First dose (after last modification) on Thu05/28/20 at 0900, Until Discontinued, Routine insulin NPH (HUMULIN N) injection 6 Given 05/27/2020 9:32 PM CD T 6 Units Left Arm Units 6 Units, Subcutaneous, QHS, First dose (after last modification) on [place] 05/27/20 at 2100, Until Discontinued, Routine insulin regular human (HUMULIN R) inject ion 10 Units 10 Units, Subcutaneous, DINNER, First dose (after last modification) on Thu05/28/20 at 1800, Until Discontinued, Routine insulin regular human Given 05/28/2020 8:55 AM CDT 14 Units Right Upper Arm-SC (HUMULIN R) injection 14 Units 14 Units, Subcutaneous, QAM, First dose (after last modification) on Thu05/28/20 at 0900, Until Discontinued, Routine magnesium hydroxide (MILK OF MAGNESIA) 4 00 mg/5 mL suspension 30 mL 30 mL, Oral, QDAILYPRN, Starting Paula at 2258, Until Discontinued, Routine, Constipation metoclopramide HCl (REGLAN) tablet 10 mg Given 05/28/2020 8:04 AM CDT 10 mg 10 mg, Oral, AC, First dose on [place] 05/27/20 at 1130, Until Discontinued, Routine Given 05/27/2020 4:37 PM CDT 10 mg Given 05/27/2020 11:30 AM CDT 10 mg metroNIDAZOLE (FLAGYL) tablet 500 mg Given 05/28/2020 8:56 AM CDT 500 mg 500 mg, Oral, BID, 14 doses, First dose on [place] 05/24/20 at 2045, Last dose on Thu05/31/20 at 0800, Routine, Reason for Anti-Infective: Documented Infection, Documented Infection Site: Pelvic, Duration of Therapy: 7 days Given 05/27/2020 9:18 PM CDT 500 mg Given 05/27/2020 8:00 AM CDT 500 mg vitamin w/FA (PRENATABS RX) Given 05/28/2020 8:56 AM C DT 1 tablet tablet 1 tablet 1 tablet, Oral, DAILY, First dose on [place] 05/24/20 at 2200, Until Discontinued, Routine Given 05/27/2020 9:10 AM CDT 1 tablet Given 05/26/2020 8:58 AM CDT 1 tablet Sliding Scale Insulin-Regular + Given 05/27/2020 11:48 AM 2 Unit s Left Upper Fsbg Testing CDT Arm-SC Subcutaneous, Q4H, First dose (after last modification) on Thu05/25/20 at 0800, Until Discontinued, Routine Given 05/26/2020 8:57 PM CDT 1 Units Righ t Arm Given 05/26/2020 4:40 PM CDT 1 Units Righ t Upper Arm-SC Medication Order MAR Action Action Date Dose Rate Site acetaminophen (TYLENOL) tablet Given 05/24/2020 8:56 PM CDT 650 mg 650 mg 650 mg, Oral, ONCE, 1 dose, [place] 05/24/20 at 2100, THIEN insulin NPH (HUMULIN N) Given 05/27/2020 9:10 AM CDT 20 Units Right Upper Arm-SC injection 20 Units 20 Units, Subcutaneous, QAM, First dose (after last modification) on 05/26/20 at 0900, Until Discontinued, Routine Given 05/26/2020 8:58 AM CDT 20 Units Left Upper Arm-SC insulin NPH (HUMULIN N) injection Given 05/25/2020 8:46 AM CDT 22 Units Left Arm 22 Units 22 Units, Subcutaneous, QAM, First dose (after last modification) on Thu05/25/20 at 0900, Until Discontinued, Routine insulin NPH (HUMULIN N) injection 7 Given 05/25/2020 5:06 PM CD T 7 Units Right Arm Units 7 Units, Subcutaneous, QPM, First dose (after last modification) on Thu05/25/20 at 1700, Until Discontinued, Routine insulin NPH (HUMULIN N) injection 8 Given 05/26/2020 8:57 PM CD T 8 Units Right Arm Units 8 Units, Subcutaneous, QHS, First dose (after last modification) on 05/26/20 at 2100, Until Discontinued, Routine insulin regular human Given 05/27/2020 9:09 AM CDT 12 Units Right Upper Arm-SC (HUMULIN R) injection 12 Units 12 Units, Subcutaneous, QAM, First dose (after last modification) on Thu05/25/20 at 0900, Until Discontinued, Routine Given 05/26/2020 8:58 AM CDT 12 Units Left Upper Arm-SC Given 05/25/2020 8:45 AM CDT 12 Units Left Arm insulin regular human Given 05/27/2020 6:24 PM CDT 12 Units Left Upper Arm-SC (HUMULIN R) injection 12 Units 12 Units, Subcutaneous, DINNER, First dose (after last modification) on 05/27/20 at 1800, Until Discontinued, Routine insulin regular human (HUMULIN R) Given 05/25/2020 5:06 PM CDT 7 Units Right Arm injection 7 Units 7 Units, Subcutaneous, QPM, First dose (after last modification) on Thu05/25/20 at 1700, Until Discontinued, Routine insulin regular human Given 05/26/2020 6:13 PM CDT 8 Units Right Upper Arm-SC (HUMULIN R) injection 8 Units 8 Units, Subcutaneous, DINNER, First dose (after last modification) on [facility] 05/26/20 at 1800, Until Discontinued, Routine NaCl 0.9% (NS) IV infusion New Bag 05/24/2020 8:39 PM CDT 1,000 m L 1000 mL/hr 1,000 mL at 1,000 mL/hr, IV Infusion, CONTINUOUS, Starting Paula 05/24/20 at 2015, Until Paula 05/24/20 at 2301, THIEN ondansetron (ZOFRAN (PF)) injection 4 mg Given 05/26/2020 8:23 AM CDT 4 mg 4 mg, Slow IV Push, ONCE, 1 dose, [facility] 05/26/20 at 0915, Routine pantoprazole (PROTONIX) EC tablet 20 mg Given 05/27/2020 11:31 AM CDT 20 mg 20 mg, Oral, ONCE, 1 dose, [place] 05/27/20 at 1145, Routine Sliding Scale Insulin-Regular + Given 05/25/2020 2:35 AM 1 Unit s Right Upper Fsbg Testing CDT Arm-SC Subcutaneous, Q4H, First dose (after last modification) on Thu05/25/20 at 0000, Until Discontinued, Routine documented in this encounter Additional Health Concerns Infection Onset Date Last Indicated Resolved Time COVID-19 Rule Out 05/24/2020 05/24/2020 05/24/2020 8: 01 PM CDT documented as of this encounter Insurance Payer Benefit Plan / Subscriber ID Effective Dates Phone Addre ss Type Group [place] [facility] [place] [facility] [id number] 2020-Present Medicaid HEALTH PLAN - HEALTH MANAGED MEDICAID documented as of this encounter Advance Directives Type Date Recorded Patient Compatibility Test Engineer Explanati on Advance Directives and Living Will Power of Chronic Specialist Name Relationship Healthcare Agent Communication Relationship Monet (call first) Sibling Health Care Agent [phone] Héctor (Mobile) Suleiman Forte Spouse Health Care Agent Caleb Waltannabel Mother [employer] Care Agent (Mobile)
--- OUTSIDE RECORDS SUMMARY | 2020-06-17 02:46 | XMS REPORT | Summary of Care ---
:2000 Author Organization [facility] Address [address] [place] [address] Care Team Providers Name Role Phone Eileen Schulte [facility] Primary Care Provider [phone] Reason for Visit Reason Comments MFM Visit Encounter Details Date Type Department Care Team Description 05/24/2020 Routine [facility]- Yoan Vazquez, [facility] [address] [place] [address] Pre-existing type 1 diabetes mellitus wi th hyperglycemia during in first trimester (Primary Dx); Visit [facility] Rdk-Qshjx-Vc/High Supervision of high risk , ante ; [address] Bipolar d isease during , antepartum; Street Previous delivery a ffecting , [place] [address] Allergies Active Allergy Reactions Severity [...] as of this encounter (statuses as of 05/24/2020) Medications Medication Sig Dispensed Refills Start Date [...] 0 05/08/2020 Active (TRUE METRIX GLUCOSE METER) [facility] blood sugar Patient to check 1 Box 5 05/08/2020 Active diagnostic (TRUE blood sugar four METRIX GLUCOSE TEST times daily STRIP) strip Lancets [facility] Patient to check 100 Each 5 05/08/2020 Active blood sugar four times daily insulin Patient to 1 Box 5 05/08/2020 Active syringe-needle U-100 administer insulin 1 ml (INSULIN twice daily SYRINGE) 1 mL 29 gauge x 1/2" Syrg documented as of this encounter (statuses as of 05/24/2020) Active Problems Problem Noted Date Uncontrolled type 1 diabetes mellitus with hyperglycem ia 05/17/2020 History of bipolar disorder 05/17/2020 Supervision of high-risk 04/16/2020 Multiparity 04/16/2020 History of section 04/16/2020 Overview: At [facility] in 2016 Dyspareunia, female 05/27/2017 Chronic insomnia [...] disorder (ADHD) 2012 Overview: ICD10 Diagnosis Term Keyboard Specialist Utility Estimated Date of Delivery Comments Yes 11/24/2020 Based on Ultrasound documented as of this encounter (statuses as of 05/24/2020) Resolved Problems Problem Noted Date Resolved Date [...] as of this encounter (statuses as of 05/24/2020) Immunizations Name Administration Dates Next Due DTAP [...] been in contact with No / Unsure 05/24/2020 3:09 PM CDT someone who was confirmed or suspected to have Coronavirus / COVID-19? documented as of this encounter Last Filed Vital Signs Vital Sign Reading Time Taken Comments Blood Pressure 108/72 05/24/2020 3:11 PM CDT Pulse 86 05/24/2020 3:11 PM CDT Temperature 36.8 C (98.3 F) 05/24/2020 3:11 PM CDT Respiratory Rate 16 05/24/2020 3:11 PM CDT Oxygen Saturation - - Inhaled Oxygen Concentration - - Weight 64.5 kg (142 lb 4 oz) 05/24/2020 3:11 PM CDT Height 162.6 cm (5' 4") 05/24/2020 3:11 PM CDT Body Mass Index 24.42 05/24/2020 3:11 PM CDT documented in this encounter Progress Notes Tania Vazquez, JUDYP - 05/24/2020 2:30 PM CDT Chief complaint: Chief Complaint Patient presents with MFM Visit HPI CC: Follow Up Visit Salome Santacruz is a 20 year old, , /White female. Patient's last menstrual period was 03/19/2020 (approximate). She is 13w5d with an intrauterine . Her estimated date of delivery is 11/24/2020, by Ultrasound. Type I diabetes - diet and insulin regimen-patient states having m any highs during the day, then she gets hypoglycemic early AM and has to eat something almost daily.Bipolar disorder, no meds. Preivously referred to psych, awaiting appointment. Denies SI/HI/VAH. Reports vaginal spotting for the past week. Histories OB History Para Term AB Living [...] Huffman; Location: Labor and Delivery - [place] FACIAL LACERATION REPAIR 2003 INCISION AND DRAINAGE [...] date: 04/14/2012 Quit date: 04/14/2015 Years since quittin.1 Smokeless tobacco: Never Used Substance and Sexual Activity Alcohol use: No Alcohol/week: 0.0 standard drinks Drug use: No Sexual activity: Yes Partners: Male control/protection: None Comment: Last intercourse: 03/23/2020 Lifestyle Physical activity Days per week: Not on file Minutes per session: Not on file Stress: Not on file Relationships Social connections Talks on phone: Not on file Gets together: Not on file Attends hinduism service: Not on file Active member of [...] glucagon, and blood-glucose meter. Review of Systems Gastrointestinal: Positive for abdominal pain. Genitourinary: Positive for vaginal bleeding (spotting). All other systems reviewed and are negative. BP 108/72 (BP Location: Right arm, Patient Position: Sitting, BP CUFF SIZE: Adult Medium) | Pulse 86 | Temp 36.8 C (98.3 F) (Oral) | Resp 16 | Ht 5' 4" (1.626 m) | Wt 142 lb 4 oz (64.5 kg) | LMP 03/19/2020 (Approximate) | BMI 24.42 kg/m Pregravid BMI: Could not be calculated Physical Exam PHYSICAL: General Exam: Neurological: Normal Alert, oriented to person, place, time, and situation Abdomen: Normal Soft, non-tender, gravid Extremities: Normal No edema noted Assessment/Plan at 13w5d Pre-existing type 1 diabetes mellitus with hyperglycemia during in first trimester (primary encounter diagnosis) Comment: on diet and insulin regimen of AM R10/N20 PM R7/N7. BG log reviewed today- many values elevated, most in 200s-300s, several in 400s. Several hypoglycemic values noted, patient states she gets hypoglycemic early AM and has to eat something almost every day. Plan: discussed patient with Dr. Khan - will send to L&D for r/o DKA with possible admission to antepartum floor for glycemic control. Supervision of high risk , antepartum Comment: Plan: POCT URINALYSIS Bipolar disease during , antepartum Comment: denies SI/HI/VAH, but states does feel anxious and depressed. Plan: Psych referral previously completed, awaiting appointment. ER warnings given. Previous delivery affecting , antepartum Comment: previous c/s x1 Plan: will address method of delivery later Vaginal Bleeding Comment: patient c/o spotting for the last week, states on and off. Denies having uterine ctx, states has some abdominal pain. Plan: to L&D for evaluation This visit did not involve counseling and coordination that comprised more than 50% of the visit time. documented in this encounter Miscellaneous Notes OB Summary Note - Tania Vazquez WHCNP - 05/24/2020 2:30 PM CDTAge: 20 year old GA: 13w5d Pre-existing type 1 diabetes mellitus with hyperglycemia during in first trimester (primary encounter diagnosis) Comment: on diet and insulin regimen of AM R10/N20 PM R7/N7. BG log reviewed today- many values elevated, most in 200s-300s, several in 400s. Several hypoglycemic values noted, patient states she gets hypoglycemic early AM and has to eat something almost every day. Plan: discussed patient with Dr. Khan - will send to L&D for r/o DKA with possible admission to antepartum floor for glycemic control. Supervision of high risk , antepartum Comment: Plan: POCT URINALYSIS Bipolar disease during , antepartum Comment: denies SI/HI/VAH, but states does feel anxious and depressed. Plan: Psych referral previously completed, awaiting appointment. ER warnings given. Previous delivery affecting , antepartum Comment: previous c/s x1 Plan: will address method of delivery later Vaginal Bleeding Comment: patient c/o spotting for the last week, states on and off. Denies having uterine ctx, states has some abdominal pain. Plan: to L&D for evaluation documented in this encounter Plan of Treatment Date Type Specialty Care Team Description 05/28/2020 Routine Visit OB Satellites Faculty, Harvey ch p [facility] Health Maintenance Due Date Last Done Comments [...] Associated Diagnosis Comme nts POCT URINALYSIS Routine 05/24/2020 3:12 PM [facility] Results for this CDT risk , procedure ar e in antepartum the results section. documented in this encounter Results POCT URINALYSIS W SPECIFIC GRAVITY (05/24/2020 3:12 PM CDT) Pathologist Sig nature POCT U SP GRAV . 1.005 - 1.025 mg/dl POCT PH U 5 5 - 8 mg/dl POCT U LEUK EST neg Negative - Negative POCT U NIT neg Negative - Negative POCT U PROT trace Negative - Negative POCT U GLU 2+ Negative - Negative POCT U KETONE neg Negative - Negative POCT U UROBILI . 0.2 - 1 mg/dl POCT U BILI . Negative - Negative POCT U BLD trace Negative - Negative POCT U COLOR POCT U APPEAR Specimen Urine - URINE, CLEAN CATCH documented in this encounter Visit Diagnoses Diagnosis Pre-existing type 1 diabetes mellitus wi th hyperglycemia during in first trimester - Primary Supervision of high risk , ante Bipolar disease during , antepa rtum Previous delivery affecting pre gnancy, antepartum Previous delivery, antepartum c ondition or complication documented in this encounter Insurance Payer Benefit Plan / Subscriber ID Effective Dates Phone Addre ss Type Group [place] [employer] [place] [employer] [id number] 2020-Present Medicaid HEALTH PLAN - [facility] MEDICAID documented as of this encounter Advance Directives Type Date Recorded Patient Turning Machine Operator Explanati on Advance Directives and Living Will Power of Dairy Management Specialist Name Relationship Healthcare Agent Communication Relationship Monet (call first) Sibling Health Care Agent [phone] Héctor (Mobile) Suleiman Jann Spouse Health Care Agent Caleb Santacruz Mother First [facility] [phone] Care Agent (Mobile)
--- OUTSIDE RECORDS SUMMARY | 2020-06-17 02:47 | XMS REPORT | Summary of Care ---
:2000 Author Organization [facility] Address [address] [place], [place] [id number] Care Team Providers Name Role Phone Eileen Schulte Primary Care Provider [phone] Reason for Referral (Routine) Status Reason Specialty Diagnoses / Referred By Referred To Procedures Contact Contact New Request Pediatric Diagnoses Uncontrolled type 1 diabetes mellitus with hypoglycemia without coma [facility] Procedures CONSULT GENETICS Elvie Demarco MD [address] [address] Reason for Visit Reason Comments MFM Visit Other (Routine) Status Reason Specialty Diagnoses / Procedures Referred By R eferred To Contact Contact Closed OB Satellites Diagnoses Uncontrolled type 1 diabetes mellitus with hypoglycemia without coma Ino FacultyHarvey Procedures Discharge Follow-up: Specialty Provider [facility]; 1 Week Elvie Demarco Rmchp Mfm MD [address] [address] Encounter Details Date Type Department Care Team Description [facility]/04[facility] [address] [address] Uncontrolled type 1 diabetes mellitus wi th hypoglycemia without coma (Primary Dx); [facility] [address] [facility] [place] [place] [address] [phone] Supervision of high risk in se cond trimester; [address] [facility] Attention deficit hyperactivity disorder (ADHD), unspecified ADHD type; Street Depressive disorder; [place], [place] History of cesa rean section [address] Allergies Active Allergy Reactions Severity Noted [...] as of this encounter (statuses as of 06/04/2020) Medications Medication Sig Dispensed Refills Start Date [...] per tabletIndications: Nausea and vomiting during Blood-Glucose Meter Use as directed 1 Each 0 05/08/2020 Active (TRUE METRIX GLUCOSE METER) [facility] [place] sugar Patient to check 1 Box 5 05/08/2020 Active diagnostic (TRUE blood sugar four METRIX GLUCOSE TEST times daily STRIP) strip Lancets [facility] [place] to check 100 Each 5 05/08/2020 Active blood sugar four times daily insulin Patient to 1 Box 5 05/08/2020 Active syringe-needle U-100 administer insulin 1 ml (INSULIN twice daily SYRINGE) 1 mL 29 gauge x 1/2" Syrg insulin NPH 100 inject 6 Units 1 Vial 3 05/28/2020 Active unit/mL under the skin at injectionIndications bedtime. : Uncontrolled type 1 diabetes mellitus with hypoglycemia without coma insulin NPH 100 inject 18 Units 1 Vial 3 05/29/2020 Active unit/mL under the skin injectionIndications every morning. : Uncontrolled type 1 diabetes mellitus with hypoglycemia without coma insulin regular inject 14 Units 1 Vial 3 05/29/2020 Active human 100 unit/mL under the skin injectionIndications every morning. : Uncontrolled type 1 diabetes mellitus with hypoglycemia without coma insulin regular inject 10 Units 1 Vial 3 05/28/2020 Active human 100 unit/mL under the skin with injectionIndications evening meal. : Uncontrolled type 1 diabetes mellitus with hypoglycemia without coma aspirin 81 mg Take 1 tablet by 60 tablet 2 05/29/2020 Active chewable mouth daily. tabletIndications: Uncontrolled type 1 diabetes mellitus with hypoglycemia without coma famotidine 20 mg Take 1 tablet by 60 tablet 2 05/28/2020 Active tabletIndications: mouth 2 (two) times Uncontrolled type 1 daily with meals. diabetes mellitus with hypoglycemia without coma metoclopramide HCl Take 1 tablet by 90 tablet 2 05/28/2020 Active 10 mg mouth before meals. tabletIndications: Uncontrolled type 1 diabetes mellitus with hypoglycemia without coma vitamin Take 1 tablet by 60 tablet 2 05/29/2020 Active w/FA mouth daily. tabletIndications: Uncontrolled type 1 diabetes mellitus with hypoglycemia without coma documented as of this encounter (statuses as of 06/04/2020) Active Problems Problem Noted Date Supervision of high-risk 04/16/2020 History of section 04/16/2020 Overview: At [facility] in 2015 DKA (diabetic ketoacidoses) 07/18/2014 Overview: Sep, 2015- admission for DKA and E coli UTI 09/2015, 10/2015, (neg 12/2015) Type 1 diabetes mellitus, uncontrolled 09/09/2013 Overview: Sliding scale novalog reports 5-10U Bedtime 38U Levemir at bedtime A1c 9.2 Depressive disorder 10/17/2012 Overview: wellbutrin 1 yr ago- self d/c. Attention deficit hyperactivity disorder (ADHD) 2012 Overview: ICD10 Diagnosis Term Java Application Developer Utility documented as of this encounter (statuses as of 06/04/2020) Resolved Problems Problem Noted Date Resolved Date Vaginal spotting 05/24/2020 06/03/2020 13 weeks gestation of 05/24/2020 06/03/20 20 Uncontrolled diabetes mellitus 05/24/2020 0 Uncontrolled type 1 diabetes mellitus with hyperglycemia 06/03/2020 History of bipolar disorder 05/17/2020 06/03/2020 Multiparity 04/16/2020 06/03/2020 Syncope 12/10/2017 04/16/2020 Dyspareunia, female 05/27/2017 06/03/2020 Other general counseling and advice for contraceptive 201604/16/2020 management Depo-Provera contraceptive status 04/14/20172019 New onset of headaches 11/14/2016 04/16/2020 Chronic insomnia 10/21/2016 06/03/2020 Contraceptive management 03/14/2016 04/16/2020 Well woman exam 02/28/2016 06/03/2020 Anemia of mother in , condition 02/28/20 [...] as of this encounter (statuses as of 06/04/2020) Immunizations Name Administration Dates Next Due DTAP [...] on filedocumented in this encounter Progress Notes Celena Khan MD - 06/04/2020 2:15 PM [facility] NOTE Verbal consent obtained from Patient: Salome Santacruz due to the COVID-19 pandemic for telehealth services provided below. Communication with patient was conducted via Telephone due to patient unable to obtain video call option. Location of Patient: Car Location of Provider: Office Date of Service: 06/04/2020 Salome Santacruz is a 20 year old @ 15w2d who is scheduled for consultation. Patient feeling well without any complaints. Reports despite Reglan/Pepcid, still having a lot of abdominal pain limiting diet. Denies any nausea or vomiting. FM - + VB - denies CTX - denies LOF - denies Patient Active Problem List Diagnosis Depressive disorder Attention deficit hyperactivity disorder (ADHD) Type 1 diabetes mellitus, uncontrolled DKA (diabetic ketoacidoses) Supervision of high-risk History of section OB History Para Term AB Living 2 1 1 1 SAB TAB Ectopic Multiple Live Births 1 # Outcome Date GA Lbr [place]/2nd Weight Sex Delivery Anes PTL Lv 2 1 01/30/16 36w1d 8 lb 15.2 oz (4.06 kg) F SEC IV narcotic [place] Comments: 1st screen collected on 02/01/16 showed normal. Mg 2nd screen collected on 02/07/16 showed normal. mg Past Medical History: Diagnosis Date ADHD (attention deficit hyperactivity disorder) Anxiety 11/[address] Xiong Depression 11/2016 diagnosed by , stopped meds 03/2017-denies current depression Diabetes mellitus type 1, uncontrolled, insulin dependent 1999 Previous use of pump, currently SQ injections History of recurrent UTIs Past Surgical History: Procedure Laterality Date SECTION N/A 01/30/2016 Surgeon: Renato Huffman; Location: Labor and Delivery - [place] FACIAL LACERATION REPAIR 2003 INCISION AND DRAINAGE OF ABSCESS abdominal wall ORAL SURGERY PROCEDURE Allergies Allergen Reactions Midol (Ibuprofen) Other - See comments Pt reported that her mouth gets "itchy and swollen" when she takes Midol and Midol Teen. Dr. Guo notified. Sister insists that pt is only allergic to Midol, NOT ibuprofen. Onion Hives Keflex [Cephalexin] Hives Latex Rash Phenergan [Promethazine Hcl] Other - See comments Anxiety and chest pressure Prior to Admission medications Medication Sig Start Date End Date Taking? Authorizing Provider aspirin 81 mg chewable tablet Take 1 tablet by mouth daily. 05/29/20 Don Cervantes MD famotidine 20 mg tablet Take 1 tablet by mouth 2 (two) times daily with meals. 05/28/20 Don Cervantes MD insulin NPH 100 unit/mL injection inject 6 Units under the skin at bedtime. 05/28/20 Don Cervantes MD insulin NPH 100 unit/mL injection inject 18 Units under the skin every morning. 05/29/20 Don Cervantes MD insulin regular human 100 unit/mL injection inject 14 Units under the skin every morning. 05/29/20Don Cervantes MD insulin regular human 100 unit/mL injection inject 10 Units under the skin with evening meal. 05/28/20 Don Cervantes MD metoclopramide HCl 10 mg tablet Take 1 tablet by mouth before meals. 05/28/20 Don Cervantes MD vitamin w/FA tablet Take 1 tablet by mouth daily. 05/29/20 Don Cervantes MD blood sugar diagnostic (TRUE METRIX GLUCOSE TEST STRIP) strip Patient to check blood sugar four times daily 05/08/20 Carla Alegre MD Blood-Glucose Meter (TRUE METRIX GLUCOSE METER) [facility] Use as directed 05/08/20 Carla Alegre MD insulin syringe-needle U-100 1 ml (INSULIN SYRINGE) 1 mL 29 gauge x 1/2" Syrg Patient to administer insulin twice daily 05/08/20 Carla Alegre MD Lancets [facility] Patient to check blood sugar four times daily 05/08/20 Carla Alegre MD doxylamine-pyridoxine, vit B6, (DICLEGIS) 10-10 mg per tablet Take 2 tablets by mouth at bedtime. 04/16/20 Eileen Schulte WHCNP ondansetron HCl (ZOFRAN ORAL) Take 4 mg base by mouth. Doctor Unassigned, [place] ondansetron (ZOFRAN ODT) 4 mg disintegrating tablet Take 1 tablet by mouth every 8 (eight) hours as needed for Nausea and Vomiting (N/V). 04/06/20 Marilee Kimball, ALEJANDRA acetaminophen-codeine 300-30 mg tablet Take 1 tablet by mouth every 6 (six) hours as needed for Pain(scale 7-10). 01/10/20 Palmira Lowery FNP ibuprofen 800 mg tablet Take 1 tablet by mouth every 8 (eight) hours as needed for Pain (scale 4-6).01/10/20 Palmira Lowery FNP hydrOXYzine 25 mg tablet Take 25 mg by mouth at bedtime as needed for Other (sleep). Doctor Unassigned, [place] SERTraline 50 mg tablet Take 1 tablet by mouth daily. 11/12/16 Sohail Xiong MD blood sugar diagnostic (FREESTYLE LITE STRIPS) strip 6 (six) times daily. 07/24/14 Sameer Lizama MD glucagon (GLUCAGON EMERGENCY) 1 mg injection 1 mg by Intramuscular route as needed (For severe hypoglycemia). 07/24/14 Sameer Lizama MD Blood-Glucose Meter (PRECISION XTRA) [facility] To be used with blood ketone strips. 03/16/13 Sameer Lizama MD Family History Adopted: Yes Family history unknown: Yes Social History Tobacco Use Smoking status: Former Smoker Types: Cigarettes Start date: 04/14/2012 Quit date: 04/14/2015 Years since quittin.1 Smokeless tobacco: Never Used Substance Use Topics Alcohol use: No Alcohol/week: 0.0 standard drinks Drug use: No ROS See HPI, otherwise negative TELEHEALTH EXAM Normal respirations, NO SOB observed over phone call Alert and communicating appropriately No distress Assessment and Plan: Salome Santacruz is a 20 year old @ 15w2d who is scheduled for consultation. Class D DM -Diagnosedage 1, previously on insulin pumpbut lost insurance - multiple episodes of DKA in past - HgbA1c 9.4% on 04/16/20 - Baseline EKG:normal sinus rhythm -Qrtpfpog40 hour urine:364 mg. Normal baseline labs. Normal TSH - On ASA 81 mg daily, continue until 36 weeks for preeclampsia prevention - Ophthalmology, genetics and nutrition consultplaced - Recommendlevel II anatomy scan and echo,Growth US q4 weeks after anatomy scan, NST 2x/wkat 32 weeks, delivery between 37-39 weeks - Current regimen AM 18N/14R, PM6N/10R. Recently admitted for glycemic control and insulin titration - Limited log reviewed: 124 PP Thursday 196, 308, 419, 32 (did not eat dinner) Thursday 75, 184, 522 today thus far - Patient counseled about concerning PP value today of 522. Instructed that values that high are concerning for DKA and she should be evaluated in house. Patient reports that she cannot come to the hospital at this time and will correct it with her own sliding scale. Patient discussed with Dr. Mckinnon. Unable to make significant dose adjustments based off limited data. Only reasonable change at this time is AM NPH to 20N. New regimen: AM 20N/14R, PM6N/10R. Patient encouraged to eat regular timed meals in order to avoid hypoglycemia. Counseled on risks of hypo and hyperglycemia. Bipolar Disorder - reportspreviouslytaking hydroxyzine but no longer takingbecause it makes her too sleepy to feel when her sugars are low - Has referral to see psychiatry, buthas not been able to get in yet - mood overall stable; denies SI/HI/AVH Prev CS X 1 -documented LTCS at [facility] for NRFHT Routine PNC - Will refer for provider to receive routine care - Quad screen ordered Follow up: Quad Needs appointment for routine PNC 1 week f/u MFM Future Appointments Date Time Provider Department Center 06/04/2020 2:15 PM Faculty, Ang Rmchp Mfm ANGOBS [facility] 07/09/2020 1:00 PM ANG-MFM ULTRASOUND ANGOBSUS [facility] After visit summary (AVS ) documentation will be available through [place] for this encounter. A total of 25 minutes was spent on the Telephone due to patient unable to obtain video call option. Discussed with staff. Celena Khan MD PGY5 MFM Fellow documented in this encounter Plan of Treatment Date Type Specialty Care Team Description 07/09/2020 Line Director Visit Maternal Medicine Name Type Priority Associated Diagnoses Order S chedule QUAD SCRN LAB Routine Uncontrolled type 1 diabetes Expected: 06/04/2020, mellitus with hypoglycemia E xpires: 06/04/2021 without coma Health Maintenance Due Date Last Done Comments [...] filedocumented in this encounter Visit Diagnoses Diagnosis Uncontrolled type 1 diabetes mellitus wi th hypoglycemia without coma - Primary Supervision of high risk in se cond trimester Unspecified high-risk Attention deficit hyperactivity disorder (ADHD), unspecified ADHD type Depressive disorder Depressive disorder, not elsewhere class ified History of section Other postprocedural status documented in this encounter Insurance Payer Benefit Plan / Subscriber ID Effective Dates Phone Addre ss Type Group [place] [employer] [place] [employer] [id number] 2020-Present Medicaid HEALTH PLAN - HEALTH [facility]NAGED MEDICAID documented as of this encounter Advance Directives Type Date Recorded Patient Security Alarm Technician Explanati on Advance Directives and Living Will Power of Simulation Developer Name Relationship Healthcare Agent Communication Relationship Monet (call first) Sibling Health Care Agent Héctor Forte Spouse Health Care Agent Caleb Santacruz Mother First [facility] [phone] Care Agent (Mobile)
--- OUTSIDE RECORDS SUMMARY | 2020-06-17 02:47 | XMS REPORT | Summary of Care ---
:2000 Author Organization [facility] Address [address] [place], [place] [id number] Care Team Providers Name Role Phone Eileen Schulte Primary Care Provider [phone] Reason for Referral (Routine) Status Reason Specialty Diagnoses / Referred By Referred To Procedures Contact Contact New Request Pediatric Diagnoses Uncontrolled type 1 diabetes mellitus with hypoglycemia without coma Ino Genetics Procedures CONSULT GENETICS Elvie Demarco MD [address] [address] Reason for Visit Reason Comments MFM Visit Other (Routine) Status Reason Specialty Diagnoses / Procedures Referred By R eferred To Contact Contact Closed OB Satellites Diagnoses Uncontrolled type 1 diabetes mellitus with hypoglycemia without coma Ino FacultyHarvey Procedures Discharge Follow-up: Specialty Provider HARVEY EASON [facility]; 1 Week Elvie Demarco Rmchp Mfm MD [address] [address] Encounter Details Date Type Department Care Team Description 06/04/2020 [facility] Elvie March MD [address] [address] Uncontrolled type 1 diabetes mellitus wi th hypoglycemia without coma (Primary Dx); [facility]ile[facility] [address] [facility] [place] [address] [phone] Supervision of high risk in se cond trimester; [address] [facility] Attention deficit hyperactivity disorder (ADHD), unspecified ADHD type; Street Depressive disorder; [place], [place] History of cesa rean section [id number] [...] as of this encounter (statuses as of 06/05/2020) Medications Medication Sig Dispensed Refills Start Date [...] 0 05/08/2020 Active (TRUE METRIX GLUCOSE METER) [facility] blood sugar Patient to check 1 Box 5 05/08/2020 Active diagnostic (TRUE blood sugar four METRIX GLUCOSE TEST times daily STRIP) strip Lancets [facility] Patient to check 100 Each 5 05/08/2020 [...] as of this encounter (statuses as of 06/05/2020) Active Problems Problem Noted Date Supervision of high-risk 04/16/2020 History of section 04/16/2020 Overview: At [facility] in 2015 DKA (diabetic ketoacidoses) 07/18/2014 Overview: Sep, 2015- admission for DKA and E coli UTI 09/2015, 10/2015, (neg 12/2015) Type 1 diabetes mellitus, uncontrolled 09/09/2013 Overview: Sliding scale novalog reports 5-10U Bedtime 38U Levemir at bedtime A1c 9.2 Depressive disorder 10/17/2012 Overview: wellbutrin 1 yr ago- self d/c. Attention deficit hyperactivity disorder (ADHD) 2012 Overview: ICD10 Diagnosis Term Radiology Director Utility documented as of this encounter (statuses as of 06/05/2020) Resolved Problems Problem Noted Date Resolved Date [...] as of this encounter (statuses as of 06/05/2020) Immunizations Name Administration Dates Next Due DTAP [...] Khan MD - 06/04/2020 2:[address] PM [address] [facility] TELEHEALTH NOTE Verbal consent obtained from [...] Births 1 # Outcome Date GA Lbr Knetrell/2nd Weight Sex Delivery Anes PTL Lv 2 [...] Renato Huffman; Location: Labor and Delivery - [place] FACIAL LACERATION REPAIR 2003 INCISION AND DRAINAGE [...] MD Blood-Glucose Meter (TRUE METRIX GLUCOSE METER) [facility] Use as directed 05/08/20 Carla Alegre MD insulin syringe-needle U-100 1 ml (INSULIN SYRINGE) 1 mL 29 gauge x 1/2" Syrg Patient to administer insulin twice daily 05/08/20 Carla Alegre MD Lancets [facility] Patient to check blood sugar four times daily 05/08/20 Carla Alegre MD doxylamine-pyridoxine, vit B6, (DICLEGIS) 10-10 mg per tablet Take 2 tablets by mouth at bedtime. 04/16/20 Eileen Schulte WHCNP ondansetron HCl (ZOFRAN ORAL) Take 4 mg base by mouth. Doctor Unassigned, [place] ondansetron (ZOFRAN ODT) 4 mg disintegrating tablet [...] as needed for Other (sleep). Doctor Unassigned, [place] SERTraline 50 mg tablet Take 1 tablet by mouth daily. 11/12/16 Sohail Xiong MD blood sugar diagnostic (FREESTYLE LITE STRIPS) strip 6 (six) times daily. 07/24/14 Sameer Lizama MD glucagon (GLUCAGON EMERGENCY) 1 mg injection 1 mg by Intramuscular route as needed (For severe hypoglycemia). 07/24/14 Sameer Lizama MD Blood-Glucose Meter (PRECISION XTRA) [facility] To be used with blood ketone strips. [...] on 04/16/20 - Baseline EKG:normal sinus rhythm -[id number] hour urine:364 mg. Normal baseline labs. Normal [...] Prev CS X 1 -documented LTCS at [facility] for NRFHT Routine PNC - Will refer for provider to receive routine care - Quad screen ordered Follow up: Quad Needs appointment for routine PNC 1 week f/u MFM Future Appointments Date Time Provider Department Center 06/04/2020 2:15 PM Faculty, Harvey Rodriguezchlakeshia Mf ANGOBS [facility] 07/09/2020 1:00 PM ANG-MFM ULTRASOUND ANGOBSUS [facility] Ang After visit summary (AVS ) documentation will be available through [employer]Smart for this encounter. A total of 25 minutes was spent on the Telephone due to patient unable to obtain video call option. Discussed with staff. Celena Khan MD PGY5 MFM Fellow documented in this encounter Plan of Treatment Date Type Specialty Care Team Description 06/11/2020 Routine Visit OB Satellites Faculty, Harvey Eason [facility] 07/09/2020 Maintenance Custodian Visit Maternal Medicine Name Type Priority Associated [...] Effective Dates Phone Addre ss Type Group [place] [id number] 2020-Present Medicaid HEALTH PLAN - HEALTH MANAGED MEDICAID documented as of this encounter Advance Directives Type Date Recorded Patient Transportation Specialist Explanati on Advance Directives and Living Will Power of Pilot Fuel Engineer Name Relationship Healthcare Agent Communication Relationship Monet (call first) Sibling Health Care Agent Héctor Forte Spouse Health Care Agent Caleb Santacruz Mother First [facility] Care Agent (Mobile)
--- OUTSIDE RECORDS SUMMARY | 2020-06-17 02:47 | XMS REPORT | Summary of Care ---
:2000 Author Organization [facility] Address [address] [place], [place] [id number] Care Team Providers Name Role Phone Eileen Schulte Primary Care Provider [phone] Reason for Referral (Routine) Status Reason Specialty Diagnoses / Referred By Referred To Procedures Contact Contact New Request Pediatric Diagnoses Uncontrolled type 1 diabetes mellitus with hypoglycemia without coma Ino Genetics Procedures CONSULT GENETICS Elvie Demarco MD [address] [address] Reason for Visit Reason Comments MFM Visit Other (Routine) Status Reason Specialty Diagnoses / Procedures Referred By R eferred To Contact Contact Closed OB Satellites Diagnoses Uncontrolled type 1 diabetes mellitus with hypoglycemia without coma Ino FacultyHarvey Procedures Discharge Follow-up: Specialty Provider HARVEY EASON [facility]; 1 Week Elvie Demarco Rmchp Mfm MD [address] [address] Encounter Details Date Type Department Care Team Description 06/04/2020 [facility] March [facility] [address] [address] Uncontrolled type 1 diabetes mellitus wi th hypoglycemia without coma (Primary Dx); [facility] [address] [facility] [place] [address] [phone] Supervision of high risk in se cond trimester; [address] [facility] Attention deficit hyperactivity disorder (ADHD), unspecified ADHD type; Street Depressive disorder; [place], [place] History of cesa rean section [id number] [...] 04/16/2020 History of section 04/16/2020 Overview: At [facility] in 2015 DKA (diabetic ketoacidoses) 07/18/2014 Overview: Sep, 2015- admission for DKA and E coli UTI 09/2015, 10/2015, (neg 12/2015) Type 1 diabetes mellitus, uncontrolled 09/09/2013 Overview: Sliding scale novalog reports 5-10U Bedtime 38U Levemir at bedtime A1c 9.2 Depressive disorder 10/17/2012 Overview: wellbutrin 1 yr ago- self d/c. Attention deficit hyperactivity disorder (ADHD) 2012 Overview: ICD10 Diagnosis Term Hat Blocking Machine Operator Utility documented as of this encounter (statuses [...] on filedocumented in this encounter Progress Notes Elvie Myers MD - 06/04/2020 2:15 PM CST Present and available, participated in the decision making for care. Agree with the fellow assessment and plan Patient Active Problem List Diagnosis Depressive disorder Attention deficit hyperactivity disorder (ADHD) Type 1 diabetes mellitus, uncontrolled DKA (diabetic ketoacidoses) Supervision of high-risk History of section RVISOR FURNACE PROCESS Celena Khan MD - 06/04/2020 2:15 PM CST M TELEHEALTH NOTE Verbal consent obtained from Patient: [...] Huff[place]; Location: Labor and Delivery - [place] FACIAL LACERATION REPAIR 2003 INCISION AND DRAINAGE [...] MD Blood-Glucose Meter (TRUE METRIX GLUCOSE METER) [place] Use as directed 05/08/20 Carla Alegre MD insulin syringe-needle U-100 1 ml (INSULIN SYRINGE) 1 mL 29 gauge x 1/2" Syrg Patient to administer insulin twice daily 05/08/20 Carla Alegre MD Lancets [place] Patient to check blood sugar four times daily 05/08/20 Carla Alegre MD doxylamine-pyridoxine, vit B6, (DICLEGIS) 10-10 mg per tablet Take 2 tablets by mouth at bedtime. 04/16/20 Eileen Schulte WHCNP ondansetron HCl (ZOFRAN ORAL) Take 4 mg base by mouth. Doctor Unassigned, [place] ondansetron (ZOFRAN ODT) 4 mg disintegrating tablet Take 1 tablet by mouth every 8 (eight) hours as needed for Nausea and Vomiting (N/V). 04/06/20 Marilee Kimball, DIRECTOR OF INCOME TAX acetaminophen-codeine 300-30 mg tablet Take 1 tablet by mouth every 6 (six) hours as needed for Pain(scale 7-10). 01/10/20 Palmira Lowery FNP ibuprofen 800 mg tablet Take 1 tablet by mouth every 8 (eight) hours as needed for Pain (scale 4-6).01/10/20 Palmira Lowery FNP hydrOXYzine 25 mg tablet Take 25 mg by mouth at bedtime as needed for Other (sleep). Doctor Unassigned, [place] SERTraline 50 mg tablet Take 1 tablet by mouth daily. 11/12/16 Sohail Xiong MD blood sugar diagnostic (FREESTYLE LITE STRIPS) strip 6 (six) times daily. 07/24/14 Sameer Lizama MD glucagon (GLUCAGON EMERGENCY) 1 mg injection 1 mg by Intramuscular route as needed (For severe hypoglycemia). 07/24/14 Sameer Lizama MD Blood-Glucose Meter (PRECISION XTRA) Misc To be used with blood ketone strips. [...] on 04/16/20 - Baseline EKG:normal sinus rhythm -Xmayonqi13 hour urine:364 mg. Normal baseline labs. Normal TSH - On ASA 81 mg daily, continue until 36 weeks for preeclampsia prevention - Ophthalmology, genetics and nutrition consultplaced - Recommendlevel II anatomy scan and echo,Growth US q4 weeks after anatomy scan, NST 2x/wkat 32 weeks, delivery between 34-39 weeks pending glycemic control and growth - Current regimen AM 18N/14R, PM6N/10R. Recently [...] to make significant dose adjustments based off data for only 2 days; need at least 7-10 days worth of values to establish a trend. Only change at this time is AM NPH to 20N. Adjustments should focus on correcting one value at a time due to brittle disease. -New regimen: AM 20N/14R, PM6N/10R with sliding scale, will consider adding carb correction in future. Patient encouraged to eat regular timed meals in order to avoid hypoglycemia. Counseled on risks of hypo and hyperglycemia. Sliding scale: BG 201 to 240, give 1 units. BG 241 to 280, give 2 units. BG 281 to 300, give 3 units. BG > 300, give 4 units, NHO, recheck in 6 hours and cover again with sliding scale. Bipolar Disorder - reportspreviouslytaking hydroxyzine but no longer takingbecause it makes her too sleepy to feel when her sugars are low - Has referral to see psychiatry, buthas not been able to get in yet - mood overall stable; denies SI/HI/AVH Prev CS X 1 -documented LTCS at [facility] Routine PNC - Will refer for provider to receive routine care - Quad screen ordered Follow up: Quad Needs appointment for routine PNC 1 week f/u MFM Future Appointments Date Time Provider Department Center 06/04/2020 2:15 PM Faculty, Harvey Gabriel 07/09/2020 1:00 PM ANG-[place] ULTRASOUND ANGOBSUS RMP Ang After visit summary (AVS ) documentation will be available through [employer] for this encounter. A total of 25 minutes was spent on the Telephone due to patient unable to obtain video call option. Discussed with staff. Celena Khan MD PGY5 MFM Fellow documented in this encounter Plan of Treatment Date Type Specialty Care Team Description 06/11/2020 Routine Visit OB Satellites Faculty, Harvey Colon 07/09/2020 Drilling Foreman Visit Maternal Medicine Name Type Priority Associated [...] Dates Phone Addre ss Type Group [place] [id number] 2020-Present Medicaid HEALTH PLAN - HEALTH MANAGED MEDICAID documented as of this encounter Advance Directives Type Date Recorded Patient Carpet Layer Helper Explanati on Advance Directives and Living Will Power of Park Manager Name Relationship Healthcare Agent Communication Relationship Monet (call first) Sibling Health Care Agent Héctor Forte Spouse Health Care Agent Caleb Santacruz Mother First [facility] Care Agent (Mobile)
--- OUTSIDE RECORDS SUMMARY | 2020-06-17 02:48 | XMS REPORT | Summary of Care ---
:2000 Author Organization [facility] - Health Address [address] [place] [address] Care Team Providers Name Role Phone Eileen Schulte [facility] Primary Care Provider [phone] Encounter Details Date Type Department Care Team Description 06/11/2020 Orders Only [facility] Doctor Unassigned, No [address] [facility] [place] [address] [address] [place] [address] Allergies Active Allergy Reactions Severity Noted Date [...] as of this encounter (statuses as of 06/11/2020) Medications Medication Sig Dispensed Refills Start Date [...] 0 05/08/2020 Active (TRUE METRIX GLUCOSE METER) [facility] blood sugar Patient to check 1 [address] 5 05/08/2020 Active diagnostic (TRUE blood sugar four METRIX GLUCOSE TEST times daily STRIP) strip Lancets [facility] Patient to check 100 Each 5 05/08/2020 [...] as of this encounter (statuses as of 06/11/2020) Active Problems Problem Noted Date Supervision of high-risk 04/16/2020 History of section 04/16/2020 Overview: At [facility] in 2015 DKA (diabetic ketoacidoses) 07/18/2014 Overview: Sep, 2015- admission for DKA and E coli UTI 09/2015, 10/2015, (neg 12/2015) Type 1 diabetes mellitus, uncontrolled 09/09/2013 Overview: Sliding scale novalog reports 5-10U Bedtime 38U Levemir at bedtime A1c 9.2 Depressive disorder 10/17/2012 Overview: wellbutrin 1 yr ago- self d/c. Attention deficit hyperactivity disorder (ADHD) 2012 Overview: ICD10 Diagnosis Term Director Fixed Income Utility Estimated Date of Delivery Comments Yes 11/24/2020 Based on Ultrasound documented as of this encounter (statuses as of 06/11/2020) Resolved Problems Problem Noted Date Resolved Date [...] as of this encounter (statuses as of 06/11/2020) Immunizations Name Administration Dates Next Due DTAP 01/14/2005, 03/12/2004 HEPATITIS A 03/09/2006, 05/22/2005, 02/21/2000 HPV 01/24/2015 HPV9 07/14/2017, 04/14/2017 Hep B, Adol or Pedi Dosage 05/22/2005, 01/14/2005, 4 Influenza Virus Vaccine Quad .5 mL IM 06/11/2020 6+ MO Influenza Virus Vaccine Quad IM 3+ YRS [...] been in contact with No / Unsure 06/11/2020 9:57 AM FINE DINING SERVER someone who was confirmed or suspected to have Coronavirus / COVID-19? documented as of this encounter Last Filed Vital Signs Not on filedocumented in this encounter Plan of Treatment Date Type Specialty Care Team Description 06/18/2020 Telemedicine Visit OB Satellites Faculty, Harvey Colon 07/09/2020 Angle Shearer Visit Maternal Medicine Health Maintenance Due Date Last Done Comments [...] Name Priority Date/Time Associated Diagnosis Comme nts PATIENT QUESTIONNAIRE Routine 06/11/2020 12:01 AM FINE DINING SERVER documented in this encounter Results Not on filedocumented in this encounter Insurance Payer Benefit Plan / Subscriber ID Effective Dates Phone Addre ss Type Group [place] [id number] 2020-Present Medicaid HEALTH PLAN - HEALTH MANAGED MEDICAID documented as of this encounter Advance Directives Type Date Recorded Patient Real Time Operator Explanati on Advance Directives and Living Will Power of Therapeutic Mentor Name Relationship Healthcare Agent Communication Relationship Monet (call first) Sibling Health Care Agent [phone] Héctor (Mobile) Suleiman Forte Spouse Health Care Agent Caleb Santacruz Mother First [facility] Care Agent (Mobile)
--- OUTSIDE RECORDS SUMMARY | 2020-06-17 02:48 | XMS REPORT | Summary of Care ---
:2000 Author Organization [facility] Address [address] [place] [address] Care Team Providers Name Role Phone Eileen Schulte [facility] Primary Care Provider [phone] Reason for Visit Reason Comments MFM Visit Encounter Details Date Type Department Care Team Description [facility] [id number] [place] [address] History of section (Primary Dx) ; Visit [facility], [facility] Supervision of high risk in se cond trimester; [address] [facility] led type 1 diabetes mellitus with hypoglycemia without coma; [place] Supervision of high risk pre gnancy, antepartum; [place], [place] Need for influe nza vaccination [id number] Allergies Active Allergy Reactions Severity Noted [...] 0 05/08/2020 Active (TRUE METRIX GLUCOSE METER) Misc blood sugar Patient to check 1 Box 5 05/08/2020 Active diagnostic (TRUE blood sugar four METRIX GLUCOSE TEST times daily STRIP) strip Lancets [facility] Patient to check 100 [...] 04/16/2020 History of section 04/16/2020 Overview: At [facility] in 2016 DKA (diabetic ketoacidoses) 07/18/2014 Overview: Sep, 2015- admission for DKA and E coli UTI 09/2015, 10/2015, (neg 12/2015) Type 1 diabetes mellitus, uncontrolled 09/09/2013 Overview: Sliding scale novalog reports 5-10U Bedtime 38U Levemir at bedtime A1c 9.2 Depressive disorder 10/17/2012 Overview: wellbutrin 1 yr ago- self d/c. Attention deficit hyperactivity disorder (ADHD) 2012 Overview: ICD10 Diagnosis Term Livestock Nutrition Territory Manager Utility Estimated Date of Delivery Comments [...] with No / Unsure 06/11/2020 9:57 AM NATIONAL SECRETARY someone who was confirmed or suspected to have Coronavirus / COVID-19? documented as of this encounter Last Filed Vital Signs Vital Sign Reading Time Taken Comments Blood Pressure 111/73 06/11/2020 9:57 AM NATIONAL SECRETARY Pulse 86 06/11/2020 9:57 AM NATIONAL SECRETARY Temperature 37.1 C (98.7 F) 06/11/2020 9:57 AM NATIONAL SECRETARY Respiratory Rate 16 06/11/2020 9:57 AM NATIONAL SECRETARY Oxygen Saturation - - Inhaled Oxygen Concentration - - Weight 64.9 kg (143 lb 2 oz) 06/11/2020 9:57 AM NATIONAL SECRETARY Height 162.6 cm (5' 4") 06/11/2020 9:57 AM NATIONAL SECRETARY Body Mass Index 24.57 06/11/2020 9:57 AM NATIONAL SECRETARY documented in this encounter Progress Notes Celena Khan MD - 06/11/2020 9:00 AM CST MFM Fellow Clinic Return Visit Salome Santacruz is a 20 year old @ 16w2d who is here for follow up. Patient feeling well without any complaints. Denies symptoms concerning for DKA FM - + VB - denies CTX [...] screen collected on 02/07/16 showed normal. mg Prior to Admission medications Medication Sig Start [...] MD Blood-Glucose Meter (TRUE METRIX GLUCOSE METER) [facility] Use as directed 05/08/20 Carla Alegre MD insulin syringe-needle U-100 1 ml (INSULIN SYRINGE) 1 mL 29 gauge x 1/2" Syrg Patient to administer insulin twice daily 05/08/20 Carla Alegre MD Lanc[address] [facility] Patient to check blood sugar four times daily 05/08/20 Carla Alegre MD doxylamine-pyridoxine, vit B6, (DICLEGIS) 10-10 mg per tablet Take 2 tablets by mouth at bedtime. 04/16/20 Eileen Schulte, WHCNP ondansetron HCl (ZOFRAN ORAL) Take 4 mg base by mouth. Doctor Unassigned, [place] ondansetron (ZOFRAN ODT) 4 mg disintegrating tablet Take 1 tablet by mouth every 8 (eight) hours as needed for Nausea and Vomiting (N/V). 04/06/20 Marilee Kimball G, REFUSE COLLECTOR SUPERVISOR acetaminophen-codeine 300-30 mg tablet Take 1 tablet by mouth every 6 (six) hours as needed for Pain(scale 7-10). 01/10/20 Palmira Lowery FNP ibuprofen 800 mg tablet Take 1 tablet by mouth every 8 (eight) hours as needed for Pain (scale 4-6).01/10/20 Palmira Lowery FNP hydrOXYzine 25 mg tablet Take 25 mg by mouth at bedtime as needed for Other (sleep). Doctor Unassigned, [place] SERTraline 50 mg tablet Take 1 tablet by mouth daily. 11/12/16 Sohail Xiong MD blood sugar diagnostic (FREESTYLE LITE STRIPS) strip 6 (six) times daily. 07/24/14 Sameer Lizama MD glucagon (GLUCAGON EMERGENCY) 1 mg injection 1 mg by Intramuscular route as needed (For severe hypoglycemia). 07/24/14 Sameer Lizama MD Blood-Glucose Meter (PRECISION XTRA) [facility] To be used with blood ketone strips. 03/16/13 Sameer Lizama MD OBJECTIVE: BP 111/73 (BP Location: Right arm, Patient Position: Sitting, BP CUFF SIZE: Adult Medium) | Pulse 86 | Temp 37.1 C (98.7 F) (Oral) | Resp 16 | Ht 5' 4" (1.626 m) | Wt 143 lb 2 oz (64.9 kg) | LMP 03/19/2020 (Approximate) | BMI 24.57 kg/m Could not be calculated Physical Exam: General - NAD CV - RRR Pulm - CTAB Abdomen - NT, gravid Extremities - Trace edema FHTS: 140s Assessment and Plan: Salome Santacruz is a 20 year old @ 16w2d who is here for follow up. Class D DM -Diagnosedage 1, previously on insulin pumpbut lost insurance - multiple episodes of DKA in past - HgbA1c 9.4% on 04/16/20 - Baseline EKG:normal sinus rhythm -Pafwesey88 hour urine:364 mg. Normal baseline labs. Normal TSH - On ASA 81 mg daily, continue until 36 weeks - Ophthalmology, genetics and nutrition consultplaced - Recommendlevel II anatomy scan and echo,Growth US q4 weeks after anatomy scan, NST 2x/wkat 32 weeks, delivery between 34-39 weeks pending glycemic control and growth - Current regimen AM20N/14R, PM6N/10R with sliding scale, can consider adding carb correction infuture - Log reviewed 263/491/77/52 234/50/55/207 - patient unsure why she was hypoglycemic 323/273/407/226 310/380/334/586 63/368/405/485 - patient unsure why she was hypoglycemic in AM 171/517/441/302 - patient increased NPH at bedtime from 6 to 10 234 - Less lability in BG noted this week with more consistent elevations, patient unsure of why hypoglycemia occurred when it did, reports using sliding scale frequently but did not notate when she did orhow much she used, instructed to do so in future. Continues to admit inconsistency with low-carb diet. We discussed that we continue to recommend inpatient management for improvement in control (especially in light of having moderate ketones today on urine dipstick) - Patient continues to decline admission. Reports asymptomatic for symptoms a/w DKA. Reports cannot be admitted because she needs to work - offered SW consult, patient declines. Will continue to perform slow titration of insulin to avoid hypoglycemia - New regimen AM 24N/16R PM 10N/12R - Counseled on risks of hypo and hyperglycemia Sliding scale: BG 201 to 240, give 1 units BG 241 to 280, give 2 units BG 281 to 300, give 3 units BG > 300, give 4 units Bipolar Disorder - reportspreviouslytaking hydroxyzine but no longer takingbecause it makes her too sleepy to feel when her sugars are low - Has referral to see psychiatry - mood overall stable; denies SI/HI/AVH Prev CS X 1 -documented LTCS at [facility] for NRFHT Routine PNC - Scheduled to follow-up with Eris - Quad screen ordered previously Follow up: Quad ordered, needs to be collect MFM telehealth in one week Future Appointments Date Time Provider Department Center 06/11/2020 9:00 AM Erica, [facility] Rmchp Mfm ANGOBS [facility] 06/20/2020 10:30 AM Eileen Schulte WHCNP ANGOBS [facility] 07/09/2020 1:00 PM ANG-MFM ULTRASOUND ANGOBSUS [facility] Discussed with staff. Celena Khan MD PGY5 MFM Fellow documented in this encounter Plan of Treatment Date Type Specialty Care Team Description 06/18/2020 Telemedicine Visit [facility] Faculty, Harvey Capellan Mfcarrillo 07/09/2020 Associate Dean Of Women Visit Maternal Medicine Name Type Priority Associated Diagnoses Date/Ti me QUAD SCRN LAB Routine Supervision of high risk pre gnancy, 06/11/2020 10:55 AM NATIONAL SECRETARY antepartum Name Type Priority Associated Diagnoses Order S chedule QUAD SCRN LAB Routine Supervision of high risk Exp ected: 06/11/2020, , antepartum s: 06/11/2021 Health Maintenance Due Date Last Done Comments [...] Name Priority Date/Time Associated Diagnosis Comme nts FLU VACC Routine 06/11/2020 10:38 Need for influenza ([id number]), 6+ AM NATIONAL SECRETARY vaccination MONTHS, IM, QUAD POCT URINALYSIS Routine 06/11/2020 10:01 Supervision of high R esults for this AM NATIONAL SECRETARY risk , procedure ar e in antepartum the results section. documented in this encounter Results POCT URINALYSIS W SPECIFIC GRAVITY (06/11/2020 10:01 AM NATIONAL SECRETARY) Pathologist Sig nature POCT U SP GRAV . 1.005 - 1.025 mg/dl POCT PH U 7 5 - 8 mg/dl POCT U LEUK EST Trace Negative - Negative POCT U NIT Neg Negative - Negative POCT U PROT Trace Negative - Negative POCT U GLU 1,000 Negative - Negative POCT U KETONE 2+ Negative - Negative POCT U UROBILI . 0.2 - 1 mg/dl POCT U BILI . Negative - Negative POCT U BLD Neg Negative - Negative POCT U COLOR POCT U APPEAR Specimen Urine - URINE, CLEAN CATCH documented in this encounter Visit Diagnoses Diagnosis History of section - Primary Other postprocedural status Supervision of high risk in se cond trimester Unspecified high-risk Uncontrolled type 1 diabetes mellitus wi th hypoglycemia without coma Supervision of high risk , ante Need for influenza vaccination Need for prophylactic vaccination and in oculation against influenza documented in this encounter Insurance Payer Benefit Plan / Subscriber ID Effective Dates Phone Addre ss Type Group [place] [facility] [id number] 2020-Present Medicaid HEALTH PLAN - HEALTH MANAGED MEDICAID documented as of this encounter Advance Directives Type Date Recorded Patient Director Of Corporate Sales Explanati on Advance Directives and Living Will Power of Oil Gas And Pipe Tester Name Relationship Healthcare Agent Communication Relationship Monet (call first) Sibling Health Care Agent Héctor (Mobile) Suleiman Forte [facility] Health Care Agent Caleb Santacruz [facility] Care Agent (Mobile)
--- OUTSIDE RECORDS SUMMARY | 2020-06-17 02:48 | XMS REPORT | Summary of Care ---
:2000 Author Organization [facility] Address [address] [place], [place] [id number] Care Team Providers Name Role Phone Eileen Schulte Primary Care Provider [phone] Reason for Referral (Routine) Status Reason Specialty Diagnoses / Referred By Referred To Procedures Contact Contact New Request Pediatric Diagnoses Uncontrolled type 1 diabetes mellitus with hypoglycemia without coma [facility] Procedures CONSULT GENETICS Elvie Demarco MD [address] [address] Reason for Visit Reason Comments MFM Visit Other (Routine) Status Reason Specialty Diagnoses / Procedures Referred By R eferred To Contact Contact Closed OB Satell[facility] Diagnoses Uncontrolled type 1 diabetes mellitus with hypoglycemia without coma Ino FacultyHarvey Procedures Discharge Follow-up: Specialty Provider [facility] FAC[facility]; 1 Week Elvie Demarco Rmchp Mfm MD [address] [address] Encounter Details Date Type Department Care Team Description 06/04/2020 [facility] Elvie March MD [address] [address] Uncontrolled type 1 diabetes mellitus wi th hypoglycemia without coma (Primary Dx); [facility] [address] [facility] [place] [address] [phone] Supervision of high risk in se cond trimester; [address] [facility] Attention deficit hyperactivity disorder (ADHD), unspecified ADHD type; Street Depressive disorder; [place], [place] History of cesa rean section [id number] [...] 0 05/08/2020 Active (TRUE METRIX GLUCOSE METER) [facility] blood sugar Patient to check 1 Box 5 05/08/2020 Active diagnostic (TRUE blood sugar four METRIX GLUCOSE TEST times daily STRIP) strip Lancets [facility] Patient to check 100 Each [...] 04/16/2020 History of section 04/16/2020 Overview: At [facility] in 2015 DKA (diabetic ketoacidoses) 07/18/2014 Overview: Sep, 2015- admission for DKA and E coli UTI 09/2015, 10/2015, (neg 12/2015) Type 1 diabetes mellitus, uncontrolled 09/09/2013 Overview: Sliding scale novalog reports 5-10U Bedtime 38U Levemir at bedtime A1c 9.2 Depressive disorder 10/17/2012 Overview: wellbutrin 1 yr ago- self d/c. Attention deficit hyperactivity disorder (ADHD) 2012 Overview: ICD10 Diagnosis Term Glove Turner And Former Automatic Utility documented as of this encounter (statuses [...] Celena Khan MD - 06/04/2020 2:15 PM CSTPatient called today to f/u on BG after patient gave herself sliding scale insulin. Reports administered 5U with correction to 123. Reports fasting value today 250 however ate chicken nuggets in the middle of the night. Discussed addition of formal sliding scale with patient. Patient voiced understanding. Celena Khan MD PGY5 MFM Fellow lvie Myers MD - 06/04/2020 2:15 PM CST Present and available, participated in the decision making for care. 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 Celena Khan MD - 06/04/2020 2:15 PM [...] [place]; Location: Labor and Delivery - [facility] [place] FACIAL LACERATION REPAIR 2003 INCISION AND DRAINAGE [...] MD Blood-Glucose Meter (TRUE METRIX GLUCOSE METER) [facility] Use as directed 05/08/20 Carla Alegre MD insulin syringe-needle U-100 1 ml (INSULIN SYRINGE) 1 mL 29 gauge x 1/2" Syrg Patient to administer insulin twice daily 05/08/20 Carla Alegre MD Lancets [facility] Patient to check blood sugar four times daily 05/08/20 Carla Alegre MD doxylamine-pyridoxine, vit B6, (DICLEGIS) 10-10 mg per tablet Take 2 tablets by mouth at bedtime. 04/16/20 Eileen Schulte, ANTONIOP ondansetron HCl (ZOFRAN ORAL) Take 4 mg base by mouth. Doctor Unassigned, [place] ondansetron (ZOFRAN ODT) 4 mg disintegrating tablet Take 1 tablet by mouth every 8 (eight) hours as needed for Nausea and Vomiting (N/V). 04/06/20 Marilee Kimball G, CLIENT CARE COORDINATOR acetaminophen-codeine 300-30 mg tablet Take 1 tablet by mouth every 6 (six) hours as needed for Pain(scale 7-10). 01/10/20 Palmira Lowery FNP ibuprofen 800 mg tablet Take 1 tablet by mouth every 8 (eight) hours as needed for Pain (scale 4-6).01/10/20 Palmira Lowery FNP hydrOXYzine 25 mg tablet Take 25 mg by mouth at bedtime as needed for Other (sleep). Doctor Unassigned, [place] SERTraline 50 mg tablet Take 1 tablet by mouth daily. 11/12/16 Sohail Xiong MD blood sugar diagnostic (FREESTYLE LITE STRIPS) strip 6 (six) times daily. 07/24/14 Sameer Lizama MD glucagon (GLUCAGON EMERGENCY) 1 mg injection 1 mg by Intramuscular route as needed (For severe hypoglycemia). 07/24/14 Sameer Lizama MD Blood-Glucose Meter (PRECISION XTRA) [place] To be used with blood ketone strips. [...] on 04/16/20 - Baseline EKG:normal sinus rhythm -Kidkzuzg14 hour urine:364 mg. Normal baseline labs. Normal [...] Prev CS X 1 -documented LTCS at [facility] for NRFHT Routine PNC - Will refer for provider to receive routine care - Quad screen ordered Follow up: Quad Needs appointment for routine PNC 1 week f/u MFM Future Appointments Date Time Provider Department Center 06/04/2020 2:15 PM Faculty, Harvey Rmchp Mfm ANGOBS [facility] 07/09/2020 1:00 PM ANG-MFM ULTRASOUND ANGOBSUS [facility] After visit summary (AVS ) documentation will be available through [employer] for this encounter. A total of 25 minutes was spent on the Telephone due to patient unable to obtain video call option. Discussed with staff. Celena Khan MD PGY5 MFM Fellow documented in this encounter Plan of Treatment Date Type Specialty Care Team Description 06/11/2020 Routine Visit [facility] Faculty, Harvey Rmchp Mfm 07/09/2020 Juvenile Officer Visit Maternal Medicine Name Type Priority Associated [...] Dates Phone Addre ss Type Group [facility] [id number] 2020-Present Medicaid HEALTH PLAN - HEALTH MANAGED MEDICAID documented as of this encounter Advance Directives Type Date Recorded Patient Lamp Replacer Explanati on Advance Directives and Living Will Power of Miller Helper Name Relationship Healthcare Agent Communication Relationship Monet (call first) Sibling Health Care Agent Héctor Forte Spouse Health Care Agent Caleb Santacruz Mother [facility] Care Agent (Mobile)
--- OUTSIDE RECORDS SUMMARY | 2020-06-17 02:49 | XMS REPORT | Summary of Care ---
:2000 Author Organization [facility] - Health Address [address] [place] [address] Care Team Providers Name Role Phone Eileen Schulte [facility] Primary Care Provider Reason for Referral Radiology Services (STAT) Status Reason Specialty Diagnoses / Referred By Referred To Procedures Contact Contact New Request Diagnostic Diagnoses Hyperglycemia Sameer Altamirano, Radiology Procedures XR CHEST 1 VW DO 301 [facility]. RT [address] [place] [address] Reason for Visit Reason Comments Nausea Vomiting Weakness Auth/Cert Status Reason Specialty Diagnoses / Referred By Referred To Procedures Contact Contact Emergency Medicine [facility] Em ergency Dept [address] [place] [address] Fax: Encounter Details Date Type Department Care Team Description 06/13/2020 Emergency ADC-Emergency Sameer Altamirano DO Nausea (Primary Dx); Department 301 [facility]. Hyperglycemia 132 [facility] [address] [place] [address] [place] [address] [phone] Allergies Active Allergy Reactions Severity Noted Date Comments Cephalexin Hives 04/09/2020 Latex Rash 01/30/2016 Midol (Ibuprofen) Other - See comments Medium 09/09/2013 Pt reported that her mouth gets "itchy and swollen" when she takes Midol and Midol Teen. Dr. Guo notified. Sister insists that pt is only allergic t o Midol, NOT ibuprofen. Promethazine Hcl Other - See comments 01/30/2016 Anx iety and chest pressure documented as of this encounter (statuses as of 06/13/2020) Medications Medication Sig Dispensed Refills Start End [...] ovarian cyst, Right lower quadrant pain ondansetron HCl Take 4 mg base by 0 Active (ZOFRAN ORAL) mouth. doxylamine-pyridox Take 2 tablets by 120 tablet 1 Active ine, vit B6, mouth at bedtime. 0 (DICLEGIS) 10-10 mg per tabletIndications: Nausea and vomiting during Blood-Glucose Use as directed 1 Each 0 Active Meter (TRUE METRIX 0 GLUCOSE METER) [facility] blood sugar Patient to check 1 Box 5 A ctive diagnostic (TRUE blood sugar four 0 METRIX GLUCOSE times daily TEST STRIP) strip Lancets [facility] Patient to check 100 Each 5 Active blood sugar four 0 times daily insulin Patient to 1 Box 5 Active syringe-needle administer 0 U-100 1 ml insulin twice (INSULIN SYRINGE) daily 1 mL 29 gauge x 1/2" Syrg [...] under the skin 0 injectionIndicatio with evening ns: Uncontrolled meal. type 1 diabetes mellitus with hypoglycemia without [...] 1 diabetes mellitus with hypoglycemia without coma ondansetron Take 1 tablet by 12 tablet 0 A ctive (ZOFRAN ODT) 4 mg mouth every 8 0 disintegrating (eight) hours as tabletIndications: needed for Nausea Nausea and Vomiting (N/V). ondansetron Take 1 tablet by 12 tablet 0 D iscontinued (ZOFRAN ODT) 4 mg mouth every 8 0 020 (Reorder) disintegrating (eight) hours as tabletIndications: needed for Nausea Nausea and Vomiting (N/V). documented as of this encounter (statuses as of 06/13/2020) Active Problems Problem Noted Date Supervision of high-risk 04/16/2020 History of section 04/16/2020 Overview: At [facility] in 2015 DKA (diabetic ketoacidoses) 07/18/2014 Overview: Sep, 2015- admission for DKA and E coli UTI 09/2015, 10/2015, (neg 12/2015) Type 1 diabetes mellitus, uncontrolled 09/09/2013 Overview: Sliding scale novalog reports 5-10U Bedtime 38U Levemir at bedtime A1c 9.2 Depressive disorder 10/17/2012 Overview: wellbutrin 1 yr ago- self d/c. Attention deficit hyperactivity disorder (ADHD) 2012 Overview: ICD10 Diagnosis Term Panel Edge Sealer Utility Estimated Date of Delivery Comments Yes 11/24/2020 Based on Ultrasound documented as of this encounter (statuses as of 06/13/2020) Resolved Problems Problem Noted Date Resolved Date [...] as of this encounter (statuses as of 06/13/2020) Immunizations Name Administration Dates Next Due DTAP [...] been in contact with No / Unsure 06/13/2020 1:50 PM 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 someone who was confirmed or suspected to have Coronavirus / COVID-19? documented as of this encounter Last Filed Vital Signs Vital Sign Reading Time Taken Comments Blood Pressure 111/72 06/13/2020 2:00 PM 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 Pulse 92 06/13/2020 2:00 PM 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 Temperature 37.3 C (99.2 F) 06/13/2020 1:54 PM 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 Respiratory Rate 18 06/13/2020 2:00 PM 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 Oxygen Saturation 100% 06/13/2020 2:00 PM 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 Inhaled Oxygen Concentration - - Weight 64.8 kg (142 lb 12.8 oz) 06/13/2020 1:54 PM 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 Height 162.6 cm (5' 4") 06/13/2020 1:54 PM 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 Body Mass Index 24.51 06/13/2020 1:54 PM 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 documented in this encounter Discharge Instructions Sameer Kam DO - 06/13/2020 DIAGNOSIS Diagnoses that have been ruled out: None Diagnoses that are still under consideration: None Final diagnoses: Nausea Hyperglycemia NO LIFE-THREATENING FINDINGS ON TODAY'S EXAM. PROCEDURES IN THE ER TODAY: Orders Placed This Encounter Procedures XR CHEST 1 VW POCT GLUCOSE(AGE >30DAYS) CBC WITH DIFF COMP. METABOLIC PANEL (16617) Lactic Acid Whole Blood VBG+VCOOX+NA+K+GLU+CA2+ URINALYSIS MEDICATIONS ADMINISTERED IN THE ER TODAY AND DISCHARGE MEDICATIONS: Orders Placed This Encounter Medications NaCl 0.9% (NS) bolus infusion 1,944 mL ondansetron (ZOFRAN (PF)) injection 4 mg FOLLOW-UP RECOMMENDATIONS: RECOMMEND FOLLOW-UP WITH A PRIMARY CARE PROVIDER OR SPECIALIST IN 2-5 DAYS, ESPECIALLY IF NO IMPROVEMENT IN SYMPTOMS. MAY FOLLOW-UP WITH A PROVIDER OF YOUR CHOICE, SUCH : 1. A PHYSICIAN OF YOUR CHOICE 2. [facility], . LOCATIONS IN [facility] 3. [facility], [address], [place]; [phone] OR, IF YOU WISH TO FOLLOW-UP WITHIN THE [facility], MAY TRY THESE OPTIONS (CLINIC APPOINTMENTS AVAILABLE ON [id number] BASIS): 1. SCHEDULE AN APPOINTMENT ONLINE AT [email or web address] 2. OR CALL THE [facility] AT OR 3. OR CALL YOUR [facility] PHYSICIAN'S OFFICE DIRECTLY IF YOU ARE ALREADY AN ESTABLISHED [facility] PATIENT. RETURN TO ER FOR WORSENING OF SYMPTOMS. documented in this encounter ED Notes Komal Looney RN - 06/13/2020 1:50 PM CSTCC: Pt presents to ER via POV with complaints of Nausea, Vomiting, Weakness. Pt states she is a Type1 DM and 16 weeks . Pt is concerned that she might be in DKA. She states that she was just on Kamiah within the last two weeks for the same thing. PMHx: Type 1 DM, Bipolar, depression, anxiety, ADHD, Insomnia PSH: , Abcess drained, wisdom teeth MEDS: See Hx LMP: Unsure sometime in march Tetanus: Not UTD Awake, alert, oriented, resp reg unlabored, skin warm, color appropriate for race, moves all ext without difficulty, amb without assist. Appears in no distress Sameer Woodruff DO - 06/13/2020 1:35 PM CST EMERGENCY DEPARTMENT ENCOUNTER [facility] Patient Name: Salome Santacruz Date of : 2000 20 year old Exam Room:TX4/TX4 Primary Care Physician: Eileen Schulte Pre- Hospital Patient Escorted by: Self [9] Mode of Arrival: Personal means [1] EMS Treatment Prior to ED Arrival: Chief Complaint Chief Complaint Patient presents with Nausea Vomiting Weakness HPI 20-year-old female type I diabetic at 17 weeks presenting with hyperglycemia and concern for DKA. Patient is poorly controlled brittle diabetic that's not on insulin pump. She has her blood sugar log and her tested blood sugars are highly variable ranging between 400s to 150s. She is complaining of nausea and decreased appetite and possible dehydration. Past Medical History / Immunizations Past Medical History: Diagnosis Date ADHD (attention deficit hyperactivity disorder) Anxiety 11/[address] Xiong Depression 11/2016 diagnosed by , stopped meds 03/2017-denies current depression Diabetes mellitus type 1, uncontrolled, insulin dependent 1999 Previous use of pump, currently SQ injections History of recurrent UTIs Tetanus received in last 5 years: Yes Childhood immunizations: Up-to-date Past Surgical History Past Surgical History: Procedure Laterality Date SECTION N/A 01/30/2016 Surgeon: Renato Huffman; Location: Labor and Delivery - [facility] [place] FACIAL LACERATION REPAIR 2003 INCISION AND DRAINAGE OF ABSCESS abdominal wall ORAL SURGERY PROCEDURE Allergies Allergies Allergen Reactions Midol (Ibuprofen) Other - See comments Pt reported that her mouth gets "itchy and swollen" when she takes Midol and Midol Teen. Dr. Guo notified. Sister insists that pt is only allergic to Midol, NOT ibuprofen. Keflex [Cephalexin] Hives Latex Rash Phenergan [Promethazine Hcl] Other - See comments Anxiety and chest pressure Social History Tobacco Use Former Smoker; 04/14/2012 - 04/14/2015; Smoked: Cigarettes. Smokeless Tobacco: Never used smokeless tobacco. Alcohol Use No. Drug Use No. Sexual Activity Sexually active; Partners: Male; Control/Protection: None. Comments: Last intercourse: 03/23/2020 Review of Systems Review of Systems Constitutional: Positive for appetite change and fatigue. Negative for chills and fever. HENT: Negative for sore throat. Eyes: Negative for pain. Respiratory: Negative for cough, chest tightness, shortness of breath and stridor. Breasts: Negative for pain. Cardiovascular: Negative for chest pain and palpitations. Gastrointestinal: Positive for nausea and vomiting. Negative for abdominal pain, constipation and diarrhea. Genitourinary: Negative for bladder incontinence, vaginal discharge and difficulty urinating. Musculoskeletal: Negative for back pain. Skin: Negative for color change and wound. Neurological: Negative for dizziness, seizures, weakness, light-headedness and headaches. Physical Exam BP 115/69 | Pulse 99 | Temp 37.3 C (99.2 F) (Oral) | Resp 16 | Ht 1.626 m (5' 4") | Wt 64.8kg (142 lb 12.8 oz) | LMP 03/19/2020 (Approximate) | SpO2 99% | BMI 24.51 kg/m Physical Exam Vitals signs and nursing [...] soft. Tenderness: There is no abdominal tenderness. Comments: gravid Musculoskeletal: Normal range of motion. Skin: General: Skin is warm and dry. Neurological: Mental Status: She is alert and oriented to person, place, and time. Cranial Nerves: No cranial nerve deficit. Deep Tendon Reflexes: Reflexes are normal and symmetric. Psychiatric: Behavior: Behavior normal. Thought Content: Thought content normal. Labs Recent Results (from the past 24 hour(s)) POCT GLUCOSE(AGE >30DAYS) Collection Time: 06/13/20 2:02 PM Result Value Ref Range POCT Glu (age>30days) 283 (A) 70 - 110 mg/dL CBC WITH DIFF Collection Time: 06/13/20 2:24 PM Result Value Ref Range WBC 10.18 4.30 - 11.10 10*3/L RBC 4.28 3.93 - 5.25 10*6/L HGB 12.3 11.6 - 15.0 g/dL HCT 36.1 35.7 - 45.2 % MCV 84.3 80.6 - 95.5 fL MCH 28.7 25.9 - 32.8 pg MCHC 34.1 31.6 - 35.1 g/dL RDW-SD 40.5 39.0 - 49.9 fL RDW-CV 13.2 12.0 - 15.5 % PLT 384 (H) 166 - 358 10*3/L MPV 9.1 (L) 9.5 - 12.9 fL NRBC/100 WBC 0.0 0.0 - 10.0 /100 WBCs NRBC x10^3 <0.01 10*3/L GRAN MAT (NEUT) % 72.6 % IMM GRAN % 0.50 % LYMPH % 18.9 % MONO % 3.9 % EOS % 3.6 % BASO % 0.5 % GRAN MAT x10^3(ANC) 7.39 (H) 1.88 - 7.09 10*3/uL IMM GRAN x10^3 0.05 0.00 - 0.06 10*3/uL LYMPH x10^3 1.92 1.32 - 3.29 10*3/uL MONO x10^3 0.40 0.33 - 0.92 10*3/uL EOS x10^3 0.37 0.03 - 0.39 10*3/uL BASO x10^3 0.05 0.01 - 0.07 10*3/uL COMP. METABOLIC PANEL (97564) Collection Time: 06/13/20 2:24 PM Result Value Ref Range NA 133 (L) 135 - 145 mmol/L K 4.0 3.5 - 5.0 mmol/L CL 103 98 - 108 mmol/L CO2 TOTAL 23 23 - 31 mmol/L AGAP 7 2 - 16 BUN 10 7 - 23 mg/dL GLUCOSE 294 (H) 70 - 110 mg/dL CREATININE 0.48 (L) 0.50 - 1.04 mg/dL TOTAL BILI 0.4 0.1 - 1.1 mg/dL CALCIUM 9.0 8.6 - 10.6 mg/dL T PROTEIN 7.0 6.3 - 8.2 g/dL ALBUMIN 3.9 3.5 - 5.0 g/dL ALK PHOS 87 34 - 122 U/L ALTv 9 5 - 35 U/L AST(SGOT) 17 13 - 40 U/L eGFR Calculation (Non-) 161.7 mL/min/1.73m2 eGFR Calculation () 196.0 mL/min/1.73m2 URINALYSIS Collection Time: 06/13/20 2:24 PM Result Value Ref Range APPEARANCE Clear Clear COLOR Yellow Yellow PH 7.0 4.8 - 8.0 SP GRAVITY 1.018 1.003 - 1.030 GLU U QUAL 500 mg/dL (A) Normal BLOOD Negative Negative KETONES 5 mg/dL (A) Negative PROTEIN Negative Negative UROBILIN Normal Normal BILIRUBIN Negative Negative NITRITE Negative Negative LEUK MANN Negative Negative RBC/HPF 1 0 - 3 HPF WBC/HPF 1 0 - 5 HPF BACTERIA Few (A) Negative SQ EPITH 6 HPF Lactic Acid Whole Blood Collection Time: 06/13/20 2:25 PM Result Value Ref Range LACTIC ACID 1.00 mmol/L VBG+VCOOX+NA+K+GLU+CA2+ Collection Time: 06/13/20 2:25 PM Result Value Ref Range PH 7.40 7.32 - 7.42 PCO2 JAIDA 32 (L) 41 - 51 mmHg PO2 JAIDA 39 25 - 40 mmHg HCO3 JAIDA 20 (L) 24 - 28 mEq/L AC VBE(BEAKER) -4.1 mEq/L THB JAIDA 13.2 12.0 - 16.0 g/dL %O2HB JAIDA 74.5 (H) 52.0 - 63.0 % %COHB JAIDA 0.9 0.0 - 1.5 % %METHB JAIDA 0.3 (L) 0.4 - 1.5 % VOL%O2 JAIDA 13.8 (H) 6.0 - 12.0 % NA 131 (L) 135 - 145 mmol/L K+ 4.0 3.5 - 5.0 mmol/L AC CA IONZ 4.60 4.50 - 5.30 mg/dL GLUCOSE 291 (H) 70 - 110 mg/dL Imaging Hospital Encounter on 06/13/20 XR CHEST 1 VW Narrative HISTORY: DKA. TECHNIQUE: Portable AP erect view of the chest is obtained. Comparison made with 06/22/2018 study. FINDINGS: No acute pneumonia. No pneumothorax or pleural effusion or pulmonary congestion detected. Cardiac size is within normal limits. CONCLUSIONS: No signs of acute cardiopulmonary disease. Orders and Treatments Orders Placed This Encounter Procedures XR CHEST 1 VW POCT GLUCOSE(AGE >30DAYS) CBC WITH DIFF COMP. METABOLIC PANEL (43820) Lactic Acid Whole Blood VBG+VCOOX+NA+K+GLU+CA2+ URINALYSIS Orders Placed This Encounter Medications NaCl 0.9% (NS) bolus infusion 1,944 mL ondansetron (ZOFRAN (PF)) injection 4 mg Procedures See ED Procedure Note Notes & MDM Patient was evaluated for an emergency medical condition related to Nausea, Vomiting, and Weakness . Differential diagnoses considered by presenting complaints but not limited to: DKA, Hyperglycemia, Metabolic Derangements, and others. Labs:were ordered, and resulted, any relevant abnormalities were considered. Imaging:Ordered, and resulted, any relevant abnormalities were considered. IV fluids: metabolic derangement (evidenced within the metabolic panel) Procedures:were not performed. Assessment: Salome Santacruz is a 20 year old female with nausea and hyperglycemia. IV fluids given in the emergency department. Patient is not in DKA. Patient stable for discharge and follow-up with endocrinologyfor evaluation of a insulin pump for better glucose control. Return precautions given if symptoms worsen as documented in the discharge instructions. Home with zofran. History, physical exam findings, results of visit, differential diagnosis, medication regimens and plan of future care have been considered. Additional MDM may be found in the ED course. Differential diagnosis considered and final disposition made based on information gathered during evaluation and may not be completely ruled out or specifically listed. Vital signs were rechecked before final disposition and determined to be stable. Diagnosis ICD-10-CM ICD-9-CM 1. Nausea R11.0 787.02 2. Hyperglycemia R73.9 790.29 Disposition & Follow Up ED Disposition ED Disposition Condition Comment Disch - Home Stable Patient's Medications START taking these medications No medications on file CONTINUE taking these medications which have NOT CHANGED ACETAMINOPHEN-CODEINE 300-30 MG TABLET Take 1 tablet by mouth every 6 (six) hours as needed for Pain (scale 7-10). ASPIRIN 81 MG CHEWABLE TABLET Take 1 tablet by mouth daily. BLOOD SUGAR DIAGNOSTIC (FREESTYLE LITE STRIPS) STRIP 6 (six) times daily. BLOOD SUGAR DIAGNOSTIC (TRUE METRIX GLUCOSE TEST STRIP) STRIP Patient to check blood sugar four times daily BLOOD-GLUCOSE METER (PRECISION XTRA) [facility] [place] To be used with blood ketone strips. BLOOD-GLUCOSE METER (TRUE METRIX GLUCOSE METER) [facility] [place] Use as directed DOXYLAMINE-PYRIDOXINE, VIT B6, (DICLEGIS) 10-10 MG PER TABLET Take 2 tablets by mouth at bedtime. FAMOTIDINE 20 MG TABLET Take 1 tablet by mouth 2 (two) times daily with meals. GLUCAGON (GLUCAGON EMERGENCY) 1 MG INJECTION 1 mg by Intramuscular route as needed (For severe hypoglycemia). HYDROXYZINE 25 MG TABLET Take 25 mg by mouth at bedtime as needed for Other (sleep). IBUPROFEN 800 MG TABLET Take 1 tablet by mouth every 8 (eight) hours as needed for Pain (scale 4-6). INSULIN NPH 100 UNIT/ML INJECTION inject 6 Units under the skin at bedtime. INSULIN NPH 100 UNIT/ML INJECTION inject 18 Units under the skin every morning. INSULIN REGULAR HUMAN 100 UNIT/ML INJECTION inject 14 Units under the skin every morning. INSULIN REGULAR HUMAN 100 UNIT/ML INJECTION inject 10 Units under the skin with evening meal. INSULIN SYRINGE-NEEDLE U-100 1 ML (INSULIN SYRINGE) 1 ML 29 GAUGE X 1/2" SYRG Patient to administer insulin twice daily [facility] Patient to check blood sugar four times daily METOCLOPRAMIDE HCL 10 MG TABLET Take 1 tablet by mouth before meals. ONDANSETRON (ZOFRAN ODT) 4 MG DISINTEGRATING TABLET Take 1 tablet by mouth every 8 (eight) hoursas needed for Nausea and Vomiting (N/V). ONDANSETRON HCL (ZOFRAN ORAL) Take 4 mg base by mouth. VITAMIN W/FA TABLET Take 1 tablet by mouth daily. SERTRALINE 50 MG TABLET Take 1 tablet by mouth daily. START taking Modified Medications as Prescribed No medications on file STOP taking these medications No medications on file Contact information for follow-up [facility]ileen Schulte[facility] Special[facility]: STAFF INTERNIST OFFICE BASED ONLY-WOMEN'S HEALTH Relationship: PCP - General [facility] [address] [facility] [id number] A, Endocrine Team Specialty: IM-INTERNAL MEDICINE Instructions: For follow up of the presenting symptoms. Call access center. Sameer Altamirano DO 06/13/2020 2:25 PM ACTIVE COVID-19 PANDEMIC. documented in this encounter Miscellaneous Notes ED Nurse Note - Laine Bruce RN - 06/13/2020 3:37 PM CSTPatient agrees with POC; states she monitors her Blood Sugar closely at home. Pt given printed and verbal discharge instructions regarding nausea, encouraged hydration, 0 Prescriptions provided; one sent to pharmacy on file Pt verbalized understanding of instructions, pt awake [...] with steady gait, in no apparent distress. D Nurse Note - Laine Bruce RN - 06/13/2020 3:18 PM CSTFSBS 356 at this time; provider notified; patient administered her insulin of Humulin R 5 units SQ at this time. Per provider patient may be discharged. documented in this encounter Plan of Treatment Date Type Specialty Care Team Description 06/18/2020 Telemedicine Visit OB Satellites Faculty, [facility] 07/09/2020 Paper Maker Visit Maternal Medicine Health Maintenance Due Date Last Done Comments EYE EXAM 02/16/2008 FOOT EXAM 02/16/2016 HgA1C 10/14/2020 04/16/2020, 12/10/2017, 10/08/2017, Additional history exists CHLAMYDIA SCREENING 04/16/2021 04/16/2020, 04/16/2020, 04/14/2017, Additional [...] topic HPV VACCINES Completed 07/14/2017, 04/14/2017, 01/24/2015 INFLUENZA VACCINE Completed 06/11/2020, 09/07/2015 documented as of this encounter Procedures Procedure Name Priority Date/Time Associated Diagnosis Comme nts XR CHEST 1 VW STAT 06/13/2020 2:34 Hyperglycemia Results f or this PM 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 procedure are i n the results section. LACTIC ACID WHOLE STAT 06/13/2020 2:25 Hyperglycemia Resul ts for this BLOOD PM 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 procedure are i n the results section. VBG+VCOOX+NA+K+GLU+ STAT 06/13/2020 2:25 Hyperglycemia Res ults for this CA2+ PM 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 procedure are i n the results section. URINALYSIS STAT 06/13/2020 2:24 Hyperglycemia Results fo r this PM 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 procedure are i n the results section. CBC WITH DIFF STAT 06/13/2020 2:24 Hyperglycemia Results f or this PM 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 procedure are i n the results section. COMP. METABOLIC STAT 06/13/2020 2:24 Hyperglycemia Results for this PANEL (87950) PM 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 procedure are in the results section. POCT GLUCOSE(AGE THIEN 06/13/2020 2:02 Nausea Results for this >30DAYS) PM 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 procedure are i n the results section. CONSENT/REFUSAL FOR Routine 06/13/2020 1:37 DIAGNOSIS AND PM 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 TREATMENT documented in this encounter Results XR CHEST 1 VW (06/13/2020 2:34 PM 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) Specimen Narrative Performed At HISTORY: DKA. PACS/VR/DOSE TECHNIQUE: Portable AP erect view of the chest is obta ined. Comparison made with 06/22/2018 study. FINDINGS: No acute pneumonia. No pneumot horax or pleural effusion or pulmonary congestion detected. Cardiac s ize is within normal limits. CONCLUSIONS: No signs of acute cardiopulmonary disease . Procedure Note [facility], Radiant Results Inft User - 2019 2:38 PM 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 HISTORY: DKA. TECHNIQUE: Portable AP erect view of the chest is obtained. Comparison made with 06/22/2018 study. FINDINGS: No acute pneumonia. No pneumot horax or pleural effusion or pulmonary congestion detected. Cardiac s ize is within normal limits. CONCLUSIONS: No signs of acute cardiopul monary disease. Performing Organization Address City/State/Zipcode Phone Number PACS/VR/DOSE VBG+VCOOX+NA+K+GLU+CA2+ (06/13/2020 2:25 PM 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) Pathologist Sig nature PH 7.40 7.32 - 7.42 [facility] PCO2 JAIDA 32 (L) 41 - 51 mmHg [facility] PO2 JAIDA 39 25 - 40 mmHg [facility] HCO3 JAIDA 20 (L) 24 - 28 mEq/L [facility] AC VBE(BEAKER) -4.1 mEq/L [facility] THB JAIDA 13.2 12.0 - 16.0 g/dL [facility] %O2HB JAIDA 74.5 (H) 52.0 - 63.0 % [facility] %COHB JAIDA 0.9 0.0 - 1.5 % [facility] %METHB JAIDA 0.3 (L) 0.4 - 1.5 % [facility] VOL%O2 JAIDA 13.8 (H) 6.0 - 12.0 % [facility] NA 131 (L) 135 - 145 mmol/L [facility] K+ 4.0 3.5 - 5.0 mmol/L [facility] AC CA IONZ 4.60 4.50 - 5.30 mg/dL [facility] GLUCOSE 291 (H) 70 - 110 mg/dL [facility] Specimen Blood - VENOUS Performing Organization Address [facility] Phone Number [facility] CLIA: [id number] [place] [address] LABORATORY [address] Lactic Acid Whole Blood (06/13/2020 2:25 PM 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) Pathologist Sig nature LACTIC ACID 1.00 mmol/L [facility] Specimen Blood - VENOUS Performing Organization Address [facility] Phone Number [facility] CLIA: [id number] [place] [address] LABORATORY [address] [facility] URINALYSIS (06/13/2020 2:24 PM 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) Pathologist Sig nature APPEARANCE Clear Clear [facility] COLOR Yellow Yellow [facility] PH 7.0 4.8 - 8.0 [facility] SP GRAVITY 1.018 1.003 - 1.030 [facility] GLU U QUAL 500 mg/dL (A) Normal [facility] BLOOD Negative Negative [facility] KETONES 5 mg/dL (A) Negative [facility] PROTEIN Negative Negative [facility] UROBILIN Normal Normal [facility] BILIRUBIN Negative Negative [facility] NITRITE Negative Negative [facility] LEUK MANN Negative Negative [facility] RBC/HPF 1 0 - 3 HPF [facility] WBC/HPF 1 0 - 5 HPF [facility] BACTERIA Few (A) Negative [facility] SQ EPITH 6 HPF [facility] Specimen Urine - URINE, CLEAN CATCH Performing Organization Address [facility] Phone Number [facility] CLIA: [id number] [place] [address] LAB[address] COMP. METABOLIC PANEL (50541) (06/13/2020 2:24 PM 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) NA 133 (L) 135 - 145 [facility] mmol/L [facility] K 4.0 3.5 - 5.0 [facility] mmol/L [facility]PITAL [facility] CL 103 98 - 108 mmol/L [facility] CO2 TOTAL 23 23 - 31 mmol/L [facility] AGAP 7 2 - 16 [facility] BUN 10 7 - 23 mg/dL [facility] GLUCOSE 294 (H) 70 - 110 mg/dL [facility] CREATININE 0.48 (L) 0.50 - 1.04 [facility] mg/dL [facility] TOTAL BILI 0.4 0.1 - 1.1 mg/dL [facility] CALCIUM 9.0 8.6 - 10.6 [facility] mg/dL [facility] T PROTEIN 7.0 6.3 - 8.2 g/dL [facility] ALBUMIN 3.9 3.5 - 5.0 g/dL [facility] ALK PHOS 87 34 - 122 U/L [facility] ALTv 9 5 - 35 U/L [facility] AST(SGOT) 17 13 - 40 U/L [facility] eGFR Calculation 161.7 mL/min/1.73m2 [facility] [place] eGFR Calculation 196.0 mL/min/1.73m2 [facility] () [facility] Specimen Blood - VENOUS Narrative Performed At Association of Glomerular Filtration Rate (GFR) [facility] and Staging of Kidney Disease* [...] tests). Performing Organization Address City/State/Zipcode Phone Number [facility] CLIA: [id number] [place], [place] [id number] LABORATORY [address] CBC WITH DIFF (06/13/2020 2:24 PM 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) [facility] nature WBC 10.18 4.30 - 11.10 [facility] 10*3/L HOSPITAL [facility] RBC 4.28 3.93 - 5.25 [facility] 10*6/L [facility] HGB 12.3 11.6 - 15.0 [facility] g/dL [facility] HCT 36.1 35.7 - 45.2 % [facility] MCV 84.3 80.6 - 95.5 fL [facility] MCH 28.7 25.9 - 32.8 pg [facility] MCHC 34.1 31.6 - 35.1 [facility] g/dL [facility] RDW-SD 40.5 39.0 - 49.9 fL [facility] RDW-CV 13.2 12.0 - 15.5 % [facility] PLT 384 (H) 166 - 358 [facility] 10*3/L [facility] MPV 9.1 (L) 9.5 - 12.9 fL [facility] NRBC/100 WBC 0.0 0.0 - 10.0 /100 [facility] WBCs [facility] NRBC x10^3 <0.01 10*3/L [facility] GRAN MAT (NEUT) % 72.6 % [facility] IMM GRAN % 0.50 % [facility] LYMPH % 18.9 % [facility] MONO % 3.9 % [facility] EOS % 3.6 % [facility] BASO % 0.5 % [facility] GRAN MAT x10^3(ANC) 7.39 (H) 1.88 - 7.09 [facility] 10*3/uL HOSPITAL LABORATORY IMM GRAN x10^3 0.05 0.00 - 0.06 [facility] 10*3/uL [facility]OSPITAL LAB[facility] LYMPH x10^3 1.92 1.32 - 3.29 [facility] 10*3/uL HOSPITAL LAB[facility]ORY MONO x10^3 0.40 0.33 - 0.92 [facility] 10*3/uL HOSPITAL LAB[facility]ATORY EOS x10^3 0.37 0.03 - 0.39 [facility] 10*3/uL [facility] BASO x10^3 0.05 0.01 - 0.07 [facility] 10*3/uL [facility] Specimen Blood - VENOUS Performing Organization Address City/State/Zipcode Phone Number [facility] CLIA: [id number] [place] [address] POCT GLUCOSE(AGE >30DAYS) (06/13/2020 2:02 PM 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) Pathologist Sig nature POCT Glu (age>30days) 283 (A) 70 - 110 mg/dL Specimen Blood - VENOUS documented in this encounter Visit Diagnoses Diagnosis Nausea - Primary Nausea alone Hyperglycemia Other abnormal glucose documented in this encounter Administered Medications Medication Order MAR Action Action Date Dose Rate Site NaCl 0.9% (NS) bolus New Bag 06/13/2020 2:28 PM 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 1,944 mL 99 9 mL/hr infusion 1,944 mL at 999 mL/hr, 1,944 mL (30 mL/kg 64.8 kg), IV Piggyback, ONCE, 1 dose, Thu06/13/20 at 1515, STAT documented in this encounter Insurance Payer Benefit Plan / Subscriber ID Effective Dates Phone Addre ss Type Group [place] [facility] [id number] 2020-Present Medicaid HEALTH PLAN - HEALTH MANAGED MEDICAID documented as of this encounter Advance Directives Type Date Recorded Patient 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
[2020-06-17 04:11] LABS: Absolute Lymphocytes (CBC) 2.1 K/uL (0.7-4.9); Basophils % 0.6 % (0-1.3); Hematocrit 30.9 % (36.0-45.0); Lymphocytes % 21.1 % (15.3-44.8); MPV 7.8 fL (7.6-11.3); RBC Red Blood Cell Count 3.64 M/uL (3.86-4.86)
[2020-06-17 04:24] LABS: ALT/SGPT 12 U/L (12-78); AST/SGOT 9 U/L (15-37); Albumin 3.1 g/dL (3.4-5.0); Alkaline Phosphatase 88 U/L (45-117); BUN Blood Urea Nitrogen 9 mg/dL (7-18); Bicarbonate 25 mmol/L (21-32); Bilirubin Direct < 0.1 mg/dL (0-0.2); Bilirubin Total 0.2 mg/dL (0.2-1.0); HCG, Quantitative 31657 mIU/mL (1-3); Sodium Level 140 mmol/L (136-145)
[2020-06-17 04:25] LABS: Glucose Level 46 mg/dL (74-106); Potassium 2.9 mmol/L (3.5-5.1)
[2020-06-17 04:43] LABS: Urine Blood NEGATIVE (NEG); Urine Glucose TRACE (NEG); Urine Protein NEGATIVE (NEG); Urine Specific Gravity 1.015 (1.005-1.030)
[2020-06-17] MEDS ORDERED: POTASSIUM 25 MEQ EFFERV TAB ONE (05:01)
--- NOTE | 2020-06-17 06:54 | ER ---
Nurse's Notes [facility] Name: Salome Santacruz Age: 20 yrs Sex: Female : 2000 Arrival Date: 06/17/2020 Time: 02:38 Bed 6 Private MD: Diagnosis: Hypoglycemia, unspecified;Hypokalemia Presentation: 06/17 02:39 Chief complaint: EMS states: Toned out for pt unresponsive, upon arrival FSBG of 20's, sg administered IV D10 infusion, repeat FSBG up to 80's with pt responsive but appearing drowsy, no other complaints reported for triage. Coronavirus screen: Client denies travel out of the [place] in the last 14 days. At this time, the client does not indicate any symptoms associated with coronavirus-19. Ebola Screen: Patient negative for fever greater than or equal to 101.5 degrees Fahrenheit, and additional compatible Ebola Virus Disease symptoms Patient denies exposure to infectious person. Patient denies travel to an Ebola-affected area in the 21 days before illness onset. No symptoms or risks identified at this time. Initial Sepsis Screen: Does the patient meet any 2 criteria? No. Patient's initial sepsis screen is negative. Does the patient have a suspected source of infection? No. Patient's initial sepsis screen is negative. Risk Assessment: Do you want to hurt yourself or someone else? Patient reports no desire to harm self or others. Onset of symptoms was June 17, 2020. Care prior to arrival: Medication(s) given: D 10 infusion IV IV initiated. 20 GA, Glucose check: 80. Activity prior to arrival: confused, unresponsive. Transition of care: patient was not received from another setting of care. 02:39 Method Of Arrival: EMS: [facility] sg 02:39 Acuity: BRIAN 3 sg Triage Assessment: 02:49 General: Appears in no apparent distress. Behavior is appropriate for age. Pain: Denies ea pain. Neuro: Level of Consciousness is awake, alert, obeys commands, Oriented to person, place, time, situation. Respiratory: Airway is patent Respiratory effort is even, unlabored, Respiratory pattern is regular, symmetrical. Derm: Skin is dry, Skin is pale, Skin temperature is warm. 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 - Social history:: Smoking status: Patient denies any tobacco usage or history of. Screenin:44 Abuse screen: Denies threats or abuse. Nutritional screening: No deficits noted. ea Tuberculosis screening: No symptoms or risk factors identified. 02:52 Fall Risk IV access (20 points). ea Assessment: 02:52 Reassessment: see triage assessment. ea 03:30 Reassessment: Patient appears in no apparent distress at this time. Patient and/or mg2 family updated on plan of care and expected duration. Pain level reassessed. Patient is alert, oriented x 3, equal unlabored respirations, skin warm/dry/pink. 04:29 Reassessment: Patient and/or family updated on plan of care and expected duration. Pain ea level reassessed. Patient is alert, oriented x 3, equal unlabored respirations, skin warm/dry/pink. 04:59 Reassessment: Patient appears in no apparent distress at this time. Patient and/or mg2 family updated on plan of care and expected duration. Pain level reassessed. Patient is alert, oriented x 3, equal unlabored respirations, skin warm/dry/pink. 06:02 Reassessment: Patient appears in no apparent distress at this time. Patient and/or mg2 family updated on plan of care and expected duration. Pain level reassessed. Patient is alert, oriented x 3, equal unlabored respirations, skin warm/dry/pink. 06:56 Reassessment: Patient and/or family updated on plan of care and expected duration. Pain ea level reassessed. Patient is alert, oriented x 3, equal unlabored respirations, skin warm/dry/pink. Discharge instruction given to patient verbalized the understanding of instruction. Pt left ED ambulatory tolerating well. Vital Signs: 02:46 BP 117 / 68; Pulse 97; Resp 18; Temp 97; Pulse Ox 99% on R/A; Weight 63.5 kg; Height 5 ea ft. 4 in. (162.56 cm); 04:00 BP 106 / 86; Pulse 88; Resp 18; Pulse Ox 100% on R/A; mg2 04:59 BP 105 / 66; Pulse 77; Resp 18; Pulse Ox 99% on R/A; mg2 06:02 BP 111 / 72; Pulse 84; Resp 18; Pulse Ox 99% on R/A; mg2 02:46 Body Mass Index 24.03 (63.50 kg, 162.56 cm) ea Vitals: 03:30 Heart Tones 140 FHT. mg2 ED Course: 02:38 Patient arrived in ED. sg 02:39 Dustin Calvin MD is Private Physician. sg 02:39 Arm band placed on. sg 02:40 Francis Vega MD is Attending Physician. [facility] 02:41 Triage completed. sg 02:45 Patient has correct armband on for positive identification. Bed in low position. Call ea light in reach. Side rails up X2. Pulse ox on. NIBP on. 02:50 Savage Emmanuel, RN is Primary Nurse. mg2 02:52 Inserted saline lock: 18 gauge in left antecubital area, using aseptic technique. ea 03:20 Inserted saline lock: 22 gauge in right forearm, using aseptic technique. Blood ds4 collected. 04:45 No provider procedures requiring assistance completed. mg2 06:55 IV discontinued, intact, bleeding controlled, No redness/swelling at site. Pressure mg2 dressing applied. Administered Medications: 04:51 Drug: Potassium Effervescent Tablet 50 mEq Route: PO; mg2 06:03 Follow up: Response: No adverse reaction mg2 Outcome: 06:53 Discharge ordered by . [facility] 06:56 Condition: stable ea 06:56 Discharged to home ambulatory, with family. ea 06:56 Discharge instructions given to patient, Instructed on discharge instructions, follow up and referral plans. Demonstrated understanding of instructions, follow-up care. 06:57 Patient left the ED. ea Signatures: Ezra Bermeo RN RN sg KiddRaul ds4 Cat Santos RN RN ea Savage Emmanuel RN RN mg2 Francis Vega MD MD [facility] Corrections: (The following items were deleted from the chart) 02:57 02:39 Care prior to arrival: Medication(s) given: D 10 infusion IV IV initiated. 20 GA, ea Glucose check: 80 sg
--- NOTE | 2020-06-17 06:54 | EDPHYS ---
Physician Documentation [facility] Name: Salome Santacruz Age: 20 yrs Sex: Female : 2000 Arrival Date: 06/17/2020 Time: 02:38 Bed 6 Private MD: ED Physician Francis Vega HPI: 06/17 03:54 This 20 yrs old Female presents to ER via EMS with complaints of Low Blood mh7 Sugar. 03:54 The patient or guardian reports hypoglycemia, that was potentially precipitated by no mh7 particular event, with the patient's symptoms witnessed by family, Treatment prior to arrival includes: EMS D10. Onset: The symptoms/episode began/occurred today. Associated signs and symptoms: Pertinent positives: loss of consciousness for an unknown amount of time, Pertinent negatives: anorexia, constipation, decreased urine output, diaphoresis, diarrhea, dry skin, hair loss, ketones in urine, nausea, polydipsia, polyphagia, polyuria, seizure activity, skin flushing, urinary incontinence, vomiting. Current symptoms: In the emergency department the patient's symptoms have resolved, the patient is alert and fully oriented, has normal speech, has normal responsiveness, has no confusion. The patient has experienced similar episodes in the past, several times. 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 - Social history:: Smoking status: Patient denies any tobacco usage or history of. ROS: 03:54 Constitutional: Negative for fever, chills, and weight loss, Eyes: Negative for injury, mh7 pain, redness, and discharge, ENT: Negative for injury, pain, and discharge, Neck: Negative for injury, pain, and swelling, Cardiovascular: Negative for chest pain, palpitations, and edema, Respiratory: Negative for shortness of breath, cough, wheezing, and pleuritic chest pain, Abdomen/GI: Negative for abdominal pain, nausea, vomiting, diarrhea, and constipation, Back: Negative for injury and pain, : Negative for injury, bleeding, discharge, and swelling, MS/Extremity: Negative for injury and deformity, Skin: Negative for injury, rash, and discoloration, Psych: Negative for depression, anxiety, suicide ideation, homicidal ideation, and hallucinations, Allergy/Immunology: Negative for hives, rash, and allergies, Endocrine: Negative for neck swelling, polydipsia, polyuria, polyphagia, and marked weight changes, Hematologic/Lymphatic: Negative for swollen nodes, abnormal bleeding, and unusual bruising. Exam: 03:54 Constitutional: This is a well developed, well nourished patient who is awake, alert, mh7 and in no acute distress. Head/Face: Normocephalic, atraumatic. Eyes: Pupils equal round and reactive to light, extra-ocular motions intact. Lids and lashes normal. Conjunctiva and sclera are non-icteric and not injected. Cornea within normal limits. Periorbital areas with no swelling, redness, or edema. ENT: Nares patent. No nasal discharge, no septal abnormalities noted. Tympanic membranes are normal and external auditory canals are clear. Oropharynx with no redness, swelling, or masses, exudates, or evidence of obstruction, uvula midline. Mucous membranes moist. Neck: Trachea midline, no thyromegaly or masses palpated, and no cervical lymphadenopathy. Supple, full range of motion without nuchal rigidity, or vertebral point tenderness. No Meningismus. Chest/axilla: Normal chest wall appearance and motion. Nontender with no deformity. No lesions are appreciated. Cardiovascular: Regular rate and rhythm with a normal S1 and S2. No gallops, murmurs, or rubs. Normal PMI, no JVD. No pulse deficits. Respiratory: Lungs have equal breath sounds bilaterally, clear to auscultation and percussion. No rales, rhonchi or wheezes noted. No increased work of breathing, no retractions or nasal flaring. Abdomen/GI: Soft, non-tender, with normal bowel sounds. No distension or tympany. No guarding or rebound. No evidence of tenderness throughout. Back: No spinal tenderness. No costovertebral tenderness. Full range of motion. 03:54 Skin: Warm, dry with normal turgor. Normal color with no rashes, no lesions, and no evidence of cellulitis. MS/ Extremity: Pulses equal, no cyanosis. Neurovascular intact. Full, normal range of motion. Neuro: Awake and alert, GCS 15, oriented to person, place, time, and situation. Cranial nerves II-XII grossly intact. Motor strength 5/5 in all extremities. Sensory grossly intact. Cerebellar exam normal. Normal gait. Psych: Awake, alert, with orientation to person, place and time. Behavior, mood, and affect are within normal limits. 03:54 : CVA tenderness, is absent, Pelvic Exam: The exam is refused by the patient/guardian. The risks and consequences are understood by the patient, Gravid exam: Fundal height: consistent with gestational age, Bladder: is normal. Vital Signs: 02:46 BP 117 / 68; Pulse 97; Resp 18; Temp 97; Pulse Ox 99% on R/A; Weight 63.5 kg; Height 5 ea ft. 4 in. (162.56 cm); 04:00 BP 106 / 86; Pulse 88; Resp 18; Pulse Ox 100% on R/A; mg2 04:59 BP 105 / 66; Pulse 77; Resp 18; Pulse Ox 99% on R/A; mg2 06:02 BP 111 / 72; Pulse 84; Resp 18; Pulse Ox 99% on R/A; mg2 02:46 Body Mass Index 24.03 (63.50 kg, 162.56 cm) ea MDM: 03:14 Patient medically screened. [facility] 06:50 Differential diagnosis: diabetes insipidus, hypoglycemic episode, myxedema coma. mh7 Differential diagnosis: Medication Reaction. Data reviewed: vital signs, nurses notes. Data interpreted: Pulse oximetry: on room air is 99 %. Interpretation: normal. Counseling: I had a detailed discussion with the patient and/or guardian regarding: the historical points, exam findings, and any diagnostic results supporting the discharge/admit diagnosis, lab results, the need for outpatient follow up, to return to the emergency department if symptoms worsen or persist or if there are any questions or concerns that arise at home. Response to treatment: the patient's symptoms have resolved after treatment, the patient's blood pressure is in an acceptable range, mental status has returned to baseline, the patient no longer shows bradycardia, the patient is not short of breath, the patient is not tachycardic, the patient's pain is gone, the patient's temperature has normalized, the patient is now symptom free, patient is well hydrated. 06/17 03:15 Order name: CBC with Diff; Complete Time: 04:25 mh7 06/17 03:15 Order name: Basic Metabolic Panel; Complete Time: 04:30 mh7 06/17 03:15 Order name: LFT's; Complete Time: 04:30 mh7 06/17 03:15 Order name: HCG-Quantitative; Complete Time: 04:30 mh7 06/17 03:23 Order name: Glucose, Ancillary Testing; Complete Time: 04:25 EDMS 06/17 04:06 Order name: Urine Dipstick--Ancillary (enter results); Complete Time: 05:35 ds4 06/17 03:15 Order name: Urine Dipstick-Ancillary (obtain specimen); Complete Time: 04:01 7 06/17 03:15 Order name: EKG - Nurse/Tech; Complete Time: 03:27 mh7 06/17 03:15 Order name: Heart Tones; Complete Time: 03:27 mh7 06/17 04:16 Order name: Glucose, Ancillary Testing; Complete Time: 04:25 EDMS 06/17 06:26 Order name: FSBS; Complete Time: 06:41 sg 06/17 06:51 Order name: Glucose, Ancillary Testing; Complete Time: 06:55 EDMS Administered Medications: 04:51 Drug: Potassium Effervescent Tablet 50 mEq Route: PO; mg2 06:03 Follow up: Response: No adverse reaction mg2 Disposition: 06/17/20 06:53 Discharged to Home. Impression: Hypoglycemia, unspecified, Hypokalemia. - Condition is Stable. - Discharge Instructions: Blood Glucose Monitoring, Adult, Hypoglycemia, [id number]. - Prescriptions for Zofran ODT 4 mg Oral tablet,disintegrating - place 1 tablet by TRANSLINGUAL route every 8 hours As needed; 10 tablet. - Medication Reconciliation Form, Thank You Letter, Antibiotic Education, Prescription Opioid Use form. - Follow up: Private Physician; When: 1 - 2 days; Reason: Worsening of condition, Recheck today's complaints, Continuance of care, Re-evaluation by your physician. - Problem is an acute exacerbation. - Symptoms have improved. Signatures: Dispatcher [employer] EDMS Ezra Bermeo RN Cat Crouch RN Savage Tejada ea, RN RN mg2 Holmes, Maurice, MD MD [facility] Corrections: (The following items were deleted from the chart) 06:55 06:53 06/17/2020 06:53 Discharged to Home. Impression: Hypoglycemia, unspecified. [facility] Condition is Stable. Forms are Medication Reconciliation Form, Thank You Letter, Antibiotic Education, Prescription Opioid Use. Follow up: Private Physician; When: 1 - 2 days; Reason: Worsening of condition, Recheck today's complaints, Continuance of care, Re-evaluation by your physician. Problem is an acute exacerbation. Symptoms have improved. [facility] 06:57 06:55 06/17/2020 06:53 Discharged to Home. Impression: Hypoglycemia, unspecified; ea Hypokalemia. Condition is Stable. Discharge Instructions: Blood Glucose Monitoring, Adult, Hypoglycemia, [id number]. Prescriptions for Zofran ODT 4 mg Oral tablet,disintegrating - place 1 tablet by TRANSLINGUAL route every 8 hours As needed; 10 tablet. and Forms are Medication Reconciliation Form, Thank You Letter, Antibiotic Education, Prescription Opioid Use. Follow up: Private Physician; When: 1 - 2 days; Reason: Worsening of condition, Recheck today's complaints, Continuance of care, Re-evaluation by your physician. Problem is an acute exacerbation. Symptoms have improved. [facility]
[2020-06-17 08:59] VITALS: TEMP 97
[2020-06-17 09:05] VITALS: O2SAT 99
[2020-06-17 09:06] VITALS: BP 111/72
== END 2020-06-17 06:57 | disposition home or self-care (01) ==
LOC: ER 02:37
DX: E11.649 Type 2 diabetes mellitus with hypoglycemia without coma (principal); E87.6 Hypokalemia; F41.8 Other specified anxiety disorders
CPT/HCPCS: 36415; 80048; 80076; 81003; 82947; 84702; 85025; 93005; 99284

== ENCOUNTER 2020-06-26 17:35 | Emergency (ER) | payer OTHER ==
--- OUTSIDE RECORDS SUMMARY | 2020-06-26 17:37 | XMS REPORT | Clinical Summary ---
:2000 Author Organization [facility] Address [address] [place] [address] Care Team Providers Name Role Phone Tanvi Xiong MD Primary Care Provider Unavailable Allergies Active Allergy Reactions Severity Noted Date Comments Latex Rash Low 04/07/2017 Acetaminophen-Pamabrom Rash Low 04/07/2017 Bumps in mouth Onion Hives 05/18/2017 Promethazine Anxiety Low 04/07/2017 Severe anxiety attacks Tree Nut 06/17/2017 Medications Medication Sig Dispensed Refills Start End Date Status Date insulin regular (HUMULIN If HP=629-977, give 1unit 10 mL 3 Active R,NOVOLIN R) 100 unit/mL If VQ=172-512, give 2units 7 injection If NO=049-328, give 4units If ZT=654-663, give 6units If YO=259-629, give 8units. medroxyPROGESTERone Inject 150 mg 0 [...] Not on file Results Not on fileafter 06/26/2019 Insurance Payer Benefit Plan / Subscriber ID Effective Dates Phone Addre ss Type Group [employer] [id number] 2017-Present L Advance Directives For more information, please contact: [phone] Code Status Date Activated Date Inactivated Comments Full Code 06/17/2017 10:54 AM 06/19/2017 2:40 PM This code status was determined by: Patient Full Code 05/18/2017 7:25 AM 05/19/2017 7:18 PM This code status was determined by: Patient Full Code 04/07/2017 3:28 PM 04/09/2017 7:53 PM This code status was determined by: Patient
--- OUTSIDE RECORDS SUMMARY | 2020-06-26 17:42 | XMS REPORT | Continuity of Care Document ---
:2000 Author Organization [facility] t Address [address] [place] [address] Care Team Providers Name Role Phone Inga DAVIS, A Primary Care Physician Unavailable Eris DURON C Attending Clinician [facility], [facility]ending [facility]ician Unavailable Bill DAVIS Attending Clinician Singer HERNANDEZ Attending Clinician Doctor Unassigned, Name Attending Clinician Unavailable TRINITY [...] D[facility], type Disease [facility] Nausea Nausea Disease [facility] Allergies, Adverse Reactions, Alerts Allergy Allergy Status Severity Reaction(s) Onset Inactive Treating Comm ents Source Name Type Date Date Clinician Tree Nut Propensi Active 2016-[address] [facility] [facility] 115 [facility] - adverse 00:00: Medical reaction 00 Center s Onion Propensi Active Hives 2016-[address] [facility] [facility] to 016 [facility] - adverse 00:00: Medical reaction 00 [place] Latex Propensi Active Rash [facility] 905 [facility] - adverse 00:00: Medical reaction 00 [place] Acetamin Propensi Active Rash Bumps in [facility] ophen-Pa ty to 05 mouth [facility] - [facility] adverse 00:00: Medical reaction 00 [place] Prometha Propensi Active Anxiety Severe [facility] to 04-07 anxiety [facility] - adverse 00:00: attacks Medical reaction 00 Center s Social History Social Habit Start Date Stop Date Quantity Comments Source Sex Assigned At [facility] Tobacco use and 2017-06-17 2017-06-17 Never used [facility] - exposure 00:00:00 00:00:00 [facility] Alcohol intake 2017-06-17 2017-06-17 Current [facility] es - 00:00:00 00:00:00 non-drinker of Medical nter alcohol (finding) History of 2016-06-18 Current smoker [facility] - tobacco use 00:00:00 Medical Ronnie r Smoking Status Start Date Stop Date Source Former smoker 2017-06-17 00:00:00 2017-06-17 00:00:00 [facility] Medications Ordered Filled Start Stop Current Ordering [...] er U-100) 100 evening. unit/mL (3 mL) In insulin Yes If [facility] regular -07 II=396-779 [facility] - (HUMULIN 00:00: , give Medical R,NOVOLIN 00 1unitIf Center R) 100 SH=205-700 unit/mL , give injection 2unitsIf VU=986-164 , give 4unitsIf RB=599-781 , give 6unitsIf YX=245-355 , give 8units. Immunizations Ordered Immunization Filled Immunization Date Status Commen ts Source Name Name Influenza Three-TIV 2017-05-18 Com[facility] Procedures This patient has no known procedures. 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 350.1.13.10 Visit [facility] 4.2.7.2.686 MATERNAL [id number] & CHILD 107 [facility] 2020-06-22 2020-06-22 [facility] [id number] 00:00:00 00:00:00 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 350.1.13.10 [facility] 4.2.7.2.686 MATERNAL [id number] & CHILD 107 [facility] 2020-06-19 2020-06-19 Telephone ANEL Khan [id number] 00:00:00 00:00:00 [facility] [id number] [facility] [id number] [id number] 2020-06-18 2020-06-18 Telemedici Faculty, [facility] [id number] 09:51:46 10:21:46 ne Visit Ang Rmchp 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 [employer] 350.1.13.10 [facility] 4.2.7.2.686 MATERNAL [id number] & CHILD 107 [facility] 2020-06-13 2020-06-13 [facility] [id number] 13:56:00 15:42:00 Sameersid Rincon 350.1.13.10 [place] 4.2.7.2.686 [place] [id number] 2020-06-11 2020-06-11 Routine Faculty, [facility] [id number] 09:37:31 10:48:32 Ang Rmchp THREADING MACHINE [employer]OMATIC 350.1.13.10 Visit [facility] 4.2.7.2.686 MATERNAL [id number] & CHILD 107 [facility] 2020-06-11 2020-06-11 Orders Doctor VIDYA [id number] 00:00:00 00:00:00 Only Unassigned, MARIA ELENA 350.1.13.10 [facility] 4.2.7.2.686 [id number] 2020-06-04 2020-06-05 Telemedici Faculty, [facility] [id number] 08:18:00 14:22:03 ne Visit Ang Rmchp THREADING MACHINE [employer]OM[employer]IC 350.1.13.10 [facility] 4.2.7.2.686 MATERNAL [id number] & CHILD 107 [facility] Results Test Description Test Time Test Comments Results Result Comments Source US PELVIC 2018-03-16 CLINICAL (TRANSVAGINAL ONLY) 14:02:32 INDICATION: R10.2 Pelvic and perineal painTECHNIQUE:Real- time and doppler transvaginal ultrasound evaluation of the pelvis was performed on the [employer].Comparison study: No prior study.FINDINGS:Uter us: 8.2 [...] Reference Range Interpretation Comme nts POC-GLUCOSE METER (TACO) (test 230 mg/dL 70-110 H TESTED AT [facility] [address] [facility] code = 1538) WAY [facility] [place] [address] POCT-GLUCOSE [id number] 08:32:00 Test Item Value Reference Range Interpretation Comments POC-GLUCOSE METER 70 mg/dL 70-110 TESTED AT [facility] [address] (BEAKER) (test code = [facility] 1538) [place] [address] POCT-GLUCOSE [id number] 05:13:00 Test Item Value Reference Range Interpretation Comments POC-GLUCOSE METER 152 mg/dL 70-110 H TESTED AT [facility] [address] ([facility]) (test code [facility] = 1538) [place] [address] POCT-GLUCOSE [id number] 04:14:00 Test Item Value Reference Range Interpretation Comments POC-GLUCOSE METER 55 mg/dL 70-110 L TESTED AT [facility] [address] ([facility]) (test code = [facility] 1538) [place] [address] POCT-GLUCOSE [id number] 20:37:00 Test Item Value Reference Range Interpretation Comments POC-GLUCOSE METER 204 mg/dL 70-110 H TESTED AT [address] ([facility]) (test code [facility] = 1538) [place] [address] POCT-GLUCOSE [id number] 19:01:00 Test Item Value Reference Range Interpretation Comments POC-GLUCOSE METER 88 mg/dL 70-110 TESTED AT [address] ([facility]) (test code = [facility] 1538) [place] [address] POCT-GLUCOSE [id number] 17:27:00 Test Item Value Reference Range Interpretation Comments POC-GLUCOSE METER 253 mg/dL 70-110 H TESTED AT [address] ([facility]) (test code [facility] = 1538) [place] [address] POCT-GLUCOSE [id number] 15:36:00 Test Item Value Reference Range Interpretation Comments POC-GLUCOSE METER 366 mg/dL 70-110 H TESTED AT [address] ([facility]) (test code [facility] = 1538) [place] [address] POCT-GLUCOSE [id number] 11:51:00 Test Item Value Reference Range Interpretation Comments POC-GLUCOSE METER 194 mg/dL 70-110 H TESTED AT [facility] [address] ([facility]) (test code [facility] = 1538) [place] [address] POCT-GLUCOSE [id number] 10:19:00 Test Item Value Reference Range Interpretation Comments POC-GLUCOSE METER 147 mg/dL 70-110 H TESTED AT [facility] [address] (BEAKER) (test code [facility] = 1538) [place] [address] BASIC METABOLIC [id number] 09:23:00 Test Item Value Reference Range Interpretation [...] NOT APPLICABLE FOR DIALYSIS PATIEN TS. POCT-GLUCOSE [id number] 08:02:00 Test Item Value Reference Range Interpretation Comments POC-GLUCOSE METER 161 mg/dL 70-110 H TESTED AT [facility] [address] (BEAKER) (test code [facility] = 1538) [place] [address] POCT-GLUCOSE [id number] 07:03:00 Test Item Value Reference Range Interpretation Comments POC-GLUCOSE METER 151 mg/dL 70-110 H TESTED AT [facility] [address] (BEAKER) (test code [facility] = 1538) [place] [address] POCT-GLUCOSE [id number] 05:08:00 Test Item Value Reference Range Interpretation Comments POC-GLUCOSE METER 158 mg/dL 70-110 H TESTED AT [facility] [address] (BEAKER) (test code [facility] = 1538) [place] [address] BASIC METABOLIC [id number] 04:51:00 Test Item Value Reference Range Interpretation [...] NOT APPLICABLE FOR DIALYSIS PATIEN TS. POCT-GLUCOSE [id number] 03:03:00 Test Item Value Reference Range Interpretation Comments POC-GLUCOSE METER 153 mg/dL 70-110 H TESTED AT [facility] [address] (BEAKER) (test code [facility] = 1538) [place] [address] POCT-GLUCOSE [id number] 02:09:00 Test Item Value Reference Range Interpretation Comments POC-GLUCOSE METER 159 mg/dL 70-110 H TESTED AT [facility] [address] (BEAKER) (test code [facility] = 1538) [place] [address] POCT-GLUCOSE [id number] 01:08:00 Test Item Value Reference Range Interpretation Comments POC-GLUCOSE METER 174 mg/dL 70-110 H TESTED AT [facility] [address] (BEAKER) (test code [facility] = 1538) [place] [address] BASIC METABOLIC [id number] 00:38:00 Test Item Value Reference Range Interpretation Comments SODIUM (BEAKER) 137 meq/L 135-148 (test code = 381) POTASSIUM (BEAKER) 3.8 meq/L 3.5-5.5 (test code = 379) CHLORIDE (BEAKER) 111 meq/L 98-106 H (test code = 382) CO2 (BEAKER) (test 12 meq/L 20-31 L code = 355) BLOOD UREA NITROGEN 9 mg/dL 10-26 L ([facility]) (test code = 354) CREATININE (BEAKER) 0.91 mg/dL 0.50-1.20 (test code = 358) GLUCOSE RANDOM 173 mg/dL 70-110 H [facility] (test code = 652) CALCIUM [facility] 8.4 mg/dL 8.5-10.5 L (test code = 697) EGFR ([facility] (test 80 mL/min/1.73 ESTIMA PRACHI GFR IS code = 1092) sq m NOT ACCURATE CREATININE CLEARANCE IN PREDICTING GLOMERULAR FILTRATION RATE . ESTIMATED GFR I S NOT APPLICABLE FOR DIALYSIS PATIEN TS. POCT-GLUCOSE [id number] 00:37:00 Test Item Value Reference Range Interpretation Comments POC-GLUCOSE METER 198 mg/dL 70-110 H TESTED AT [facility] [address] ([facility]) (test code [facility] = 1538) [place] [address] POCT-GLUCOSE [id number] 00:14:00 Test Item Value Reference Range Interpretation Comments POC-GLUCOSE METER 162 mg/dL 70-110 H TESTED AT [facility] [address] ([facility]) (test code [facility] = 1538) [place] [address] POCT-GLUCOSE [id number] 23:39:00 Test Item Value Reference Range Interpretation Comments POC-GLUCOSE METER 149 mg/dL 70-110 H TESTED AT [facility] [address] ([facility]) (test code [facility] = 1538) [place] [address] POCT-GLUCOSE [id number] 23:10:00 Test Item Value Reference Range Interpretation Comments POC-GLUCOSE METER 134 mg/dL 70-110 H TESTED AT [facility] [address] ([facility]) (test code [facility] = 1538) [place] [address] POCT-GLUCOSE [id number] 22:41:00 Test Item Value Reference Range Interpretation Comments POC-GLUCOSE METER 112 mg/dL 70-110 H TESTED AT [facility] [address] ([facility]) (test code [facility] = 1538) [place] [address] POCT-GLUCOSE [id number] 21:59:00 Test Item Value Reference Range Interpretation Comments POC-GLUCOSE METER 95 mg/dL 70-110 TESTED AT [facility] [address] (BEAKER) (test code = [facility] 1538) [place] [address] POCT-GLUCOSE [id number] 21:39:00 Test Item Value Reference Range Interpretation Comments POC-GLUCOSE METER 110 mg/dL 70-110 TESTED AT [facility] [address] (BEAKER) (test code [facility] = 1538) [place] [address] POCT-GLUCOSE [id number] 21:07:00 Test Item Value Reference Range Interpretation Comments POC-GLUCOSE METER 114 mg/dL 70-110 H TESTED AT [facility] [address] (BEAKER) (test code [facility] = 1538) [place] [address] BASIC METABOLIC [id number] 20:47:00 Test Item Value Reference Range Interpretation [...] NOT APPLICABLE FOR DIALYSIS PATIEN TS. POCT-GLUCOSE [id number] 20:17:00 Test Item Value Reference Range Interpretation Comments POC-GLUCOSE METER 176 mg/dL 70-110 H TESTED AT [facility] [address] (BEAKER) (test code [facility] = 1538) [place] [address] [id number] 19:09:00 Test Item Value Reference Range Interpretation Comments GLUCOSE RANDOM (BEAKER) (test code 230 mg/dL 70-110 H = 652) If last glucose was less than 500, may do bedside glucose instead of serum glucose.POCT-GLUCOSE [id number] 18:53:00 Test Item Value Reference Range Interpretation Comments POC-GLUCOSE METER 212 mg/dL 70-110 H TESTED AT [facility] [address] (BEAKER) (test code [facility] = 1538) [place] [address] POCT-GLUCOSE [id number] 17:14:00 Test Item Value Reference Range Interpretation Comments POC-GLUCOSE METER 145 mg/dL 70-110 H TESTED AT [facility] [address] (BEAKER) (test code [facility] = 1538) [place] [address] BASIC METABOLIC [id number] 16:51:00 Test Item Value Reference Range Interpretation [...] may do bedside glucose instead of serum glucose.[id number] 16:47:00 Test Item Value Reference Range Interpretation Comments GLUCOSE RANDOM (BEAKER) (test code 126 mg/dL 70-110 H = 652) If last glucose was less than 500, may do bedside glucose instead of serum glucose.POCT-GLUCOSE [id number] 16:04:00 Test Item Value Reference Range Interpretation Comments POC-GLUCOSE METER 119 mg/dL 70-110 H TESTED AT [facility] [address] (BEAKER) (test code [facility] = 1538) [place] [address] [id number] 14:30:00 Test Item Value Reference Range Interpretation Comments POTASSIUM (BEAKER) (test code = 3.9 meq/L 3.5-5.5 379) If last glucose was less than 500, may do bedside glucose instead of serum glucose.[id number] 14:30:00 Test Item Value Reference Range Interpretation Comments GLUCOSE RANDOM (BEAKER) (test code 190 mg/dL 70-110 H = 652) If last glucose was less than 500, may do bedside glucose instead of serum glucose.POCT-GLUCOSE [id number] 14:05:00 Test Item Value Reference Range Interpretation Comments POC-GLUCOSE METER 194 mg/dL 70-110 H TESTED AT [facility] [address] (BEAKER) (test code [facility] = 1538) [place] [address] POCT-GLUCOSE [id number] 13:15:00 Test Item Value Reference Range Interpretation Comments POC-GLUCOSE METER 229 mg/dL 70-110 H TESTED AT [facility] [address] (BEAKER) (test code [facility] = 1538) [place] [address] BASIC METABOLIC [id number] 12:44:00 Test Item Value Reference Range Interpretation [...] may do bedside glucose instead of serum glucose.[id number] 12:43:00 Test Item Value Reference Range Interpretation Comments GLUCOSE RANDOM (BEAKER) (test code 258 mg/dL 70-110 H = 652) If last glucose was less than 500, may do bedside glucose instead of serum glucose.POCT-GLUCOSE [id number] 12:03:00 Test Item Value Reference Range Interpretation Comments POC-GLUCOSE METER 238 mg/dL 70-110 H TESTED AT [facility] [address] ([facility]) (test code [facility] = 1538) [place] [address] POCT-GLUCOSE [id number] 11:05:00 Test Item Value Reference Range Interpretation Comments POC-GLUCOSE METER 261 mg/dL 70-110 H TESTED AT [facility] [address] ([facility]) (test code [facility] = 1538) [place] [address] HEMOGLOBIN [id number] 10:07:00 Test Item Value Reference Range Interpretation Comments HEMOGLOBIN A1C (BEAKER) (test code = > % 4.3-6.1 H 368) [id number] 10:00:00 Test Item Value Reference Range Interpretation Comments GLUCOSE RANDOM (BEAKER) (test code 441 mg/dL 70-110 HH = 652) If last glucose was less than 500, may do bedside glucose instead of serum glucose.[id number] 09:55:00 Test Item Value Reference Range Interpretation Comments POTASSIUM (BEAKER) (test code = 4.1 meq/L 3.5-5.5 379) If last glucose was less than 500, may do bedside glucose instead of serum glucose.POCT-GLUCOSE [id number] 09:18:00 Test Item Value Reference Range Interpretation Comments POC-GLUCOSE METER > mg/dL 70-110 HH OUTSIDE ME ASURING (BEAKER) (test code RANGETES PRACHI AT [facility] [address] = 1538) [place] [address] [id number] 09:15:00 Test Item Value Reference Range Interpretation Comments GLUCOSE RANDOM (BEAKER) (test code 585 mg/dL 70-110 HH = 652) If last glucose was less than 500, may do bedside glucose instead of serum glucose.COMPREHENSIVE METABOLIC [id number] 08:30:00 Test Item Value Reference Range Interpretation [...] PATIEN TS. CBC W/PLT COUNT & AUTO [id number] 08:29:00 Test Item Value Reference Range Interpretation [...] K/ L 0.00-0.20 (test code = 417) [id number] 08:25:00 Test Item Value Reference Range Interpretation Comments PHOSPHORUS (BEAKER) (test code = 4.0 mg/dL 2.5-4.5 604) [id number] 08:25:00 Test Item Value Reference Range Interpretation Comments MAGNESIUM (BEAKER) (test code = 2.0 mg/dL 1.5-3.0 627) SCREEN, [id number] 08:16:00 Test Item Value Reference Range Interpretation Comments TEST URINE (BEAKER) (test Negative code = 583) URINALYSIS W/ [id number] 08:16:00 Test Item Value Reference Range Interpretation [...] Rare SOURCE(BEAKER) (test code = 2795) KETONE, [id number] 08:09:00 Test Item Value Reference Range Interpretation Comments KETONES, BLOOD (BEAKER) (test code 6.1 mmol/L <0.4 H = 1103) PH, [id number] 08:08:00 Test Item Value Reference Range Interpretation Comments PH VENOUS (BEAKER) (test code = 701) 7.18 7.32-7.42 LL BLOOD [id number] 13:00:00 Test Item Value Reference Range Interpretation Comments CULTURE (BEAKER) (test No growth in 5 days code = 1095) BLOOD [id number] 13:00:00 Test Item Value Reference Range Interpretation Comments CULTURE (BEAKER) (test No growth in 5 days code = 1095) POCT-GLUCOSE [id number] 17:12:00 Test Item Value Reference Range Interpretation Comments POC-GLUCOSE METER 136 mg/dL 70-110 H TESTED AT [facility] [address] (BEAKER) (test code [facility] = 1538) [place] [address] POCT-GLUCOSE [id number] 16:37:00 Test Item Value Reference Range Interpretation Comments POC-GLUCOSE METER 45 mg/dL 70-110 L TESTED AT [facility] [address] (BEAKER) (test code = [facility] 1538) [place] [address] POCT-GLUCOSE [id number] 11:32:00 Test Item Value Reference Range Interpretation Comments POC-GLUCOSE METER 98 mg/dL 70-110 TESTED AT [facility] [address] (BEAKER) (test code = [facility] 1538) [place] [address] POCT-GLUCOSE [id number] 06:45:00 Test Item Value Reference Range Interpretation Comments POC-GLUCOSE METER 85 mg/dL 70-110 TESTED AT [facility] [address] (BEAKER) (test code = [facility] 1538) [place] [address] [id number] 06:25:00 Test Item Value Reference Range Interpretation Comments PHOSPHORUS (BEAKER) (test code = 2.4 mg/dL 2.5-4.5 L 604) [id number] 06:25:00 Test Item Value Reference Range Interpretation Comments MAGNESIUM (BEAKER) (test code = 2.4 mg/dL 1.5-3.0 627) BASIC METABOLIC [id number] 06:25:00 Test Item Value Reference Range Interpretation [...] PATIEN TS. CBC W/PLT COUNT & AUTO [id number] 05:58:00 Test Item Value Reference Range Interpretation [...] L 0.00-0.20 (test code = 417) POCT-GLUCOSE [id number] 05:38:00 Test Item Value Reference Range Interpretation Comments POC-GLUCOSE METER 102 mg/dL 70-110 TESTED AT [facility] [address] (BEAKER) (test code [facility] = 1538) [place] [address] POCT-GLUCOSE [id number] 03:29:00 Test Item Value Reference Range Interpretation Comments POC-GLUCOSE METER 163 mg/dL 70-110 H TESTED AT [facility] [address] (BEAKER) (test code [facility] = 1538) [place] [address] POCT-GLUCOSE [id number] 03:29:00 Test Item Value Reference Range Interpretation Comments POC-GLUCOSE METER 155 mg/dL 70-110 H TESTED AT [facility] [address] (BEAKER) (test code [facility] = 1538) [place] [address] BASIC METABOLIC [id number] 01:42:00 Test Item Value Reference Range Interpretation [...] S NOT APPLICABLE FOR DIALYSIS PATIEN TS. [id number] 01:39:00 Test Item Value Reference Range Interpretation Comments PHOSPHORUS (BEAKER) (test code = 2.1 mg/dL 2.5-4.5 L 604) [id number] 01:39:00 Test Item Value Reference Range Interpretation Comments MAGNESIUM (BEAKER) (test code = 2.0 mg/dL 1.5-3.0 627) POCT-GLUCOSE [id number] 01:19:00 Test Item Value Reference Range Interpretation Comments POC-GLUCOSE METER 152 mg/dL 70-110 H TESTED AT [facility] [address] (BEAKER) (test code [facility] = 1538) [place] [address] POCT-GLUCOSE [id number] 01:07:00 Test Item Value Reference Range Interpretation Comments POC-GLUCOSE METER 145 mg/dL 70-110 H TESTED AT [facility] [address] (BEAKER) (test code [facility] = 1538) [place] [address] POCT-GLUCOSE [id number] 01:07:00 Test Item Value Reference Range Interpretation Comments POC-GLUCOSE METER 165 mg/dL 70-110 H TESTED AT [facility] [address] (BEAKER) (test code [facility] = 1538) [place] [address] POCT-GLUCOSE [id number] 01:07:00 Test Item Value Reference Range Interpretation Comments POC-GLUCOSE METER 163 mg/dL 70-110 H TESTED AT [facility] [address] (BEAKER) (test code [facility] = 1538) [place] [address] BASIC METABOLIC [id number] 20:59:00 Test Item Value Reference Range Interpretation [...] S NOT APPLICABLE FOR DIALYSIS PATIEN TS. [id number] 20:58:00 Test Item Value Reference Range Interpretation Comments MAGNESIUM (BEAKER) 1.8 mg/dL 1.5-3.0 Specimen slightly (test code = 627) hemolyzed [id number] 20:58:00 Test Item Value Reference Range Interpretation Comments PHOSPHORUS (BEAKER) 2.2 mg/dL 2.5-4.5 L Specimen slightly (test code = 604) hemolyzed POCT-GLUCOSE [id number] 18:02:00 Test Item Value Reference Range Interpretation Comments POC-GLUCOSE METER 176 mg/dL 70-110 H TESTED AT [facility] [address] (BEAKER) (test code [facility] = [address]38) [place] [address] [id number] 16:46:00 Test Item Value Reference Range Interpretation Comments MAGNESIUM (BEAKER) 2.1 mg/dL 1.5-3.0 Specimen slightly (test code = 627) hemolyzed [id number] 16:46:00 Test Item Value Reference Range Interpretation Comments PHOSPHORUS (BEAKER) 2.1 mg/dL 2.5-4.5 L Specimen slightly (test code = 604) hemolyzed BASIC METABOLIC [id number] 16:46:00 Test Item Value Reference Range Interpretation [...] NOT APPLICABLE FOR DIALYSIS PATIEN TS. CALCIUM, [id number] 16:21:00 Test Item Value Reference Range Interpretation Comments CALCIUM IONIZED (BEAKER) (test 1.13 mmol/L 1.12-1.27 code = 698) PH, BLOOD (BEAKER) (test code = 7.30 1810) Check serum Ionized Calcium level after 4 hours after IV Calcium replacement. POCT-GLUCOSE [id number] 16:12:00 Test Item Value Reference Range Interpretation Comments POC-GLUCOSE METER 191 mg/dL 70-110 H TESTED AT [facility] [address] (BEAKER) (test code [facility] = 1538) [place] [address] POCT-GLUCOSE [id number] 15:20:00 Test Item Value Reference Range Interpretation Comments POC-GLUCOSE METER 181 mg/dL 70-110 H TESTED AT [facility] [address] (BEAKER) (test code [facility] = 1538) [place] [address] POCT-GLUCOSE [id number] 14:15:00 Test Item Value Reference Range Interpretation Comments POC-GLUCOSE METER 169 mg/dL 70-110 H TESTED AT [facility] [address] (BEAKER) (test code [facility] = 1538) [place] [address] BASIC METABOLIC [id number] 13:44:00 Test Item Value Reference Range Interpretation [...] 8.5-10.5 L (test code = 697) [facility] (test 95 mL/min/1.73 ESTIMA PRACHI GFR IS code = 1092) sq m NOT ACCURATE CREATININE CLEARANCE IN PREDICTING GLOMERULAR FILTRATION RATE . ESTIMATED GFR I S NOT APPLICABLE FOR DIALYSIS PATIEN TS. POCT-GLUCOSE [id number] 13:24:00 Test Item Value Reference Range Interpretation Comments POC-GLUCOSE METER 157 mg/dL 70-110 H TESTED AT [facility] [address] ([facility]) (test code [facility] = 1538) [place] [address] POCT-GLUCOSE [id number] 12:34:00 Test Item Value Reference Range Interpretation Comments POC-GLUCOSE METER 131 mg/dL 70-110 H TESTED AT [facility] [address] ([facility]) (test code [facility] = 1538) [place] [address] POCT-GLUCOSE [id number] 11:39:00 Test Item Value Reference Range Interpretation Comments POC-GLUCOSE METER 160 mg/dL 70-110 H TESTED AT [facility] [address] ([facility]) (test code [facility] = 1538) [place] [address] [id number] 11:13:00 Test Item Value Reference Range Interpretation Comments PROCALCITONIN (BEAKER) (test code = < ng/mL <0.05 3036) SEPSIS RISK (ng/mL)Low: 0.05-0.50Intermediate: 0.51-2.00High: >=2.01POCT-GLUCOSE [id number] 10:40:00 Test Item Value Reference Range Interpretation Comments POC-GLUCOSE METER 202 mg/dL 70-110 H TESTED AT [facility] [address] ([facility]) (test code [facility] = 1538) [place] [address] [id number] 10:04:00 Test Item Value Reference Range Interpretation Comments PHOSPHORUS (BEAKER) 1.4 mg/dL 2.5-4.5 LL Specimen slightly (test code = 604) hemolyzed BASIC METABOLIC [id number] 10:04:00 Test Item Value Reference Range Interpretation [...] S NOT APPLICABLE FOR DIALYSIS PATIEN TS. [id number] 10:02:00 Test Item Value Reference Range Interpretation Comments MAGNESIUM (BEAKER) 1.8 mg/dL 1.5-3.0 Specimen slightly (test code = 627) hemolyzed POCT-GLUCOSE [id number] 09:36:00 Test Item Value Reference Range Interpretation Comments POC-GLUCOSE METER 212 mg/dL 70-110 H TESTED AT [facility] [address] (BEAKER) (test code [facility] = 1538) [place] [address] POCT-GLUCOSE [id number] 08:43:00 Test Item Value Reference Range Interpretation Comments POC-GLUCOSE METER 268 mg/dL 70-110 H TESTED AT [facility] [address] (BEAKER) (test code [facility] = 1538) [place] [address] [id number] 07:47:00 Test Item Value Reference Range Interpretation Comments POTASSIUM (BEAKER) (test code = 4.0 meq/L 3.5-5.5 379) If last glucose was less than 500, may do bedside glucose instead of serum glucose.[id number] 07:47:00 Test Item Value Reference Range Interpretation Comments GLUCOSE RANDOM (BEAKER) (test code 370 mg/dL 70-110 H = 652) If last glucose was less than 500, may do bedside glucose instead of serum glucose.POCT-GLUCOSE [id number] 07:31:00 Test Item Value Reference Range Interpretation Comments POC-GLUCOSE METER 328 mg/dL 70-110 H Notified R Evita DAVIS/TESTED AT (BEAKER) (test code [facility] [address] [facility] [address] = 1538) [facility] [place] [address] POCT-GLUCOSE [id number] 07:31:00 Test Item Value Reference Range Interpretation Comments POC-GLUCOSE METER 414 mg/dL 70-110 HH TESTED AT [facility] [address] ([facility] (test code [facility] = 1538) [place] [address] [id number] 06:57:00 Test Item Value Reference Range Interpretation Comments POTASSIUM (BEAKER) (test code = 4.5 meq/L 3.5-5.5 379) [id number] 06:51:00 Test Item Value Reference Range Interpretation Comments GLUCOSE RANDOM (BEAKER) (test code 523 mg/dL 70-110 HH = 652) If last glucose was less than 500, may do bedside glucose instead of serum glucose.URINALYSIS W/ REFLEX URINE [id number] 06:29:00 Test Item Value Reference Range Interpretation [...] (test code = 2795) RAPID INFLUENZA A&B [id number] 06:13:00 Test Item Value Reference Range Interpretation Comments RAPID INFLUENZA A AG (BEAKER) (test Negative Negative code = 1622) RAPID INFLUENZA B AG (BEAKER) (test Negative Negative code = 1623) SCREEN, [id number] 05:58:00 Test Item Value Reference Range Interpretation Comments TEST URINE (BEAKER) (test Negative code = 583) RAD, CHEST, 1 VIEW, NON [id number] 05:52:00Reason for exam:->EMESISReason for exam:->BLOOD SUGAR PROBLEMShould this be performed at the bedside?- >YesIs the patient ?->NoFINAL REPORT Comparison examination: 04/07/2017 No pneumothorax, focal pulmonary consolidation, or significant pleural effusion. Normal cardiomediastinal contours. Normal skeleton and soft tissues. Impression: No acute abnormality. Signed: Joesph Foy Verified Date/Time: 05/18/2017 05:52:18 Reading Location: [address] Transitional Reading Room HEMOGLOBIN [id number] 05:49:00 Test Item Value Reference Range Interpretation Comments HEMOGLOBIN A1C (BEAKER) (test code = 13.2 % 4.3-6.1 H 368) BASIC METABOLIC [id number] 05:28:00 Test Item Value Reference Range Interpretation [...] bedside glucose instead of serum glucose.HEPATIC FUNCTION [id number] 05:27:00 Test Item Value Reference Range Interpretation [...] glucose instead of serum glucose.Specimen slightlylipemicBLOOD GAS, [id number] 05:04:00 Test Item Value Reference Range Interpretation [...] (test code = 1819) 21.0 % KETONE, [id number] 05:03:00 Test Item Value Reference Range Interpretation Comments KETONES, BLOOD (BEAKER) (test code 5.8 mmol/L <0.4 H = 1103) CBC W/PLT COUNT & AUTO [id number] 05:02:00 Test Item Value Reference Range Interpretation [...] L 0.00-0.20 (test code = 417) POCT-GLUCOSE [id number] 04:49:00 Test Item Value Reference Range Interpretation Comments POC-GLUCOSE METER > mg/dL 70-110 HH OUTSIDE ME ASURING (BEAKER) (test code RANGETES PRACHI AT [facility] [address] = 1538) [facility] [address] BLOOD [id number] 00:00:00 Test Item Value Reference Range Interpretation Comments CULTURE (BEAKER) (test No growth in 5 days code = 1095) BLOOD [id number] 00:00:00 Test Item Value Reference Range Interpretation Comments CULTURE (BEAKER) (test No growth in 5 days code = 1095) URINE [id number] 15:21:00 Test Item Value Reference Range Interpretation Comments CULTURE (BEAKER) (test >100,000 col/mL skin code = 1095) christophe POCT-GLUCOSE [id number] 14:37:00 Test Item Value Reference Range Interpretation Comments POC-GLUCOSE METER 326 mg/dL 70-110 H TESTED AT [facility] 6720 (BEAKER) (test code = [facility] [place] Rosalva [facility] 1538) [address] POCT-GLUCOSE [id number] 13:26:00 Test Item Value Reference Range Interpretation Comments POC-GLUCOSE METER 331 mg/dL 70-110 H TESTED AT [facility] 6720 (BEAKER) (test code = [facility] 1538) [address] CBC W/PLT COUNT & AUTO [id number] 11:34:00 Test Item Value Reference Range Interpretation [...] COUNTED (BEAKER) (test code = 1351) POCT-GLUCOSE [id number] 11:18:00 Test Item Value Reference Range Interpretation Comments POC-GLUCOSE METER 349 mg/dL 70-110 H TESTED AT [facility] 6720 (BEAKER) (test code = SHARATH Blackwell [facility] 1538) [address] POCT-GLUCOSE [id number] 09:34:00 Test Item Value Reference Range Interpretation Comments POC-GLUCOSE METER 61 mg/dL 70-110 L TESTED AT [place] [address] (BEAKER) (test code = [facility] [place] Rosalva [facility] [address] 1538) POCT-GLUCOSE [id number] 08:48:00 Test Item Value Reference Range Interpretation Comments POC-GLUCOSE METER 79 mg/dL 70-110 TESTED AT [place] [address] ([facility] (test code = [facility] [place] Rosalva [facility] [address] 1538) BASIC METABOLIC [id number] 06:12:00 Test Item Value Reference Range Interpretation [...] NOT APPLICABLE FOR DIALYSIS PATIEN TS. KETONE, [id number] 05:43:00 Test Item Value Reference Range Interpretation Comments KETONES, BLOOD (BEAKER) (test code 0.1 mmol/L <0.4 = 1103) POCT-GLUCOSE [id number] 05:39:00 Test Item Value Reference Range Interpretation Comments POC-GLUCOSE METER 366 mg/dL 70-110 H TESTED AT [place] [address] ([facility]) (test code = SHARATH Black[place] 1538) [address] POCT-GLUCOSE [id number] 22:32:00 Test Item Value Reference Range Interpretation Comments POC-GLUCOSE METER 302 mg/dL 70-110 H TESTED AT [place] [address] ([facility]) (test code = SHARATH Blackwell [place] 1538) [address] POCT-GLUCOSE [id number] 19:15:00 Test Item Value Reference Range Interpretation Comments POC-GLUCOSE METER 273 mg/dL 70-110 H TESTED AT [place] [address] ([facility]) (test code = SHARATH Blackwell [place] 1538) [address] POCT-GLUCOSE [id number] 17:49:00 Test Item Value Reference Range Interpretation Comments POC-GLUCOSE METER 174 mg/dL 70-110 H TESTED AT [place] [address] ([facility]) (test code = SHARATH Blackwell [facility] 1538) [address] POCT-GLUCOSE [id number] 17:02:00 Test Item Value Reference Range Interpretation Comments POC-GLUCOSE METER 171 mg/dL 70-110 H TESTED AT [place] [address] ([facility]) (test code = SHARATH Blackwell [place] 1538) [address] POCT-GLUCOSE [id number] 15:17:00 Test Item Value Reference Range Interpretation Comments POC-GLUCOSE METER 135 mg/dL 70-110 H TESTED AT [place] [address] ([facility]) (test code = SHARATH Blackwell [place] 1538) [address] POCT-GLUCOSE [id number] 13:10:00 Test Item Value Reference Range Interpretation Comments POC-GLUCOSE METER 61 mg/dL 70-110 L TESTED AT [place] [address] ([facility]) (test code = [place] [address] 1538) POCT-GLUCOSE [id number] 11:21:00 Test Item Value Reference Range Interpretation Comments POC-GLUCOSE METER 57 mg/dL 70-110 L Notified Rosalva Jama MD/TESTED AT ([facility]) (test code = [address] 1538) [place] [address] POCT-GLUCOSE [id number] 08:02:00 Test Item Value Reference Range Interpretation Comments POC-GLUCOSE METER 68 mg/dL 70-110 L Notified R Evita DAVIS/TESTED AT (BEAKER) (test code = [facility] [facility] [place] [address] CBC W/PLT COUNT & AUTO [id number] 08:02:00 Test Item Value Reference Range Interpretation [...] PERCENT (BEAKER) (test code = 2801) POCT-GLUCOSE [id number] 06:58:00 Test Item Value Reference Range Interpretation Comments POC-GLUCOSE METER 95 mg/dL 70-110 TESTED AT [place] [address] ([facility]) (test code = [facility] [address] 1538) POCT-GLUCOSE [id number] 06:17:00 Test Item Value Reference Range Interpretation Comments POC-GLUCOSE METER 150 mg/dL 70-110 H TESTED AT [place] [address] ([facility]) (test code = [facility] 1538) [address] POCT-GLUCOSE [id number] 05:18:00 Test Item Value Reference Range Interpretation Comments POC-GLUCOSE METER 101 mg/dL 70-110 TESTED AT [place] [address] ([facility]) (test code = [facility] 1538) [address] POCT-GLUCOSE [id number] 05:07:00 Test Item Value Reference Range Interpretation Comments POC-GLUCOSE METER 119 mg/dL 70-110 H TESTED AT [place] [address] ([facility]) (test code = [facility] 1538) [address] BASIC METABOLIC [id number] 04:52:00 Test Item Value Reference Range Interpretation [...] NOT APPLICABLE FOR DIALYSIS PATIEN TS. POCT-GLUCOSE [id number] 04:05:00 Test Item Value Reference Range Interpretation Comments POC-GLUCOSE METER 48 mg/dL 70-110 L TESTED AT [place] [address] ([facility]) (test code = SHARATH Blackwell [facility] [address] 1538) POCT-GLUCOSE [id number] 02:30:00 Test Item Value Reference Range Interpretation Comments POC-GLUCOSE METER 181 mg/dL 70-110 H TESTED AT [place] [address] ([facility]) (test code = [facility] 1538) [address] POCT-GLUCOSE [id number] 02:10:00 Test Item Value Reference Range Interpretation Comments POC-GLUCOSE METER 37 mg/dL 70-110 LL Will Repea t Test/TESTED ([facility]) (test code = AT [address] 1538) [facility] [address] POCT-GLUCOSE [id number] 01:07:00 Test Item Value Reference Range Interpretation Comments POC-GLUCOSE METER 87 mg/dL 70-110 TESTED AT [place] [address] ([facility]) (test code = [facility] [address] 1538) BASIC METABOLIC [id number] 00:44:00 Test Item Value Reference Range Interpretation [...] NOT APPLICABLE FOR DIALYSIS PATIEN TS. POCT-GLUCOSE [id number] 00:30:00 Test Item Value Reference Range Interpretation Comments POC-GLUCOSE METER 96 mg/dL 70-110 TESTED AT [place] [address] ([facility]) (test code = [facility] [address] 1538) POCT-GLUCOSE [id number] 23:54:00 Test Item Value Reference Range Interpretation Comments POC-GLUCOSE METER 91 mg/dL 70-110 TESTED AT [place] [address] ([facility]) (test code = [facility] [address] 1538) POCT-GLUCOSE [id number] 23:12:00 Test Item Value Reference Range Interpretation Comments POC-GLUCOSE METER 48 mg/dL 70-110 L TESTED AT [place] [address] ([facility]) (test code = [facility] [address] 1538) POCT-GLUCOSE [id number] 21:58:00 Test Item Value Reference Range Interpretation Comments POC-GLUCOSE METER 94 mg/dL 70-110 TESTED AT [place] [address] ([facility]) (test code = [facility] [address] 1538) BASIC METABOLIC [id number] 21:08:00 Test Item Value Reference Range Interpretation [...] NOT APPLICABLE FOR DIALYSIS PATIEN TS. POCT-GLUCOSE [id number] 20:57:00 Test Item Value Reference Range Interpretation Comments POC-GLUCOSE METER 165 mg/dL 70-110 H TESTED AT [facility] 6720 (BEAKER) (test code = SHARATH Blackwell [place] 1538) [address] [id number] 20:55:00 Test Item Value Reference Range Interpretation Comments POTASSIUM (BEAKER) (test code = 3.6 meq/L 3.5-5.1 379) URINALYSIS W/ [id number] 20:40:00 Test Item Value Reference Range Interpretation [...] 516) SOURCE(BEAKER) (test code = 2795) POCT-GLUCOSE [id number] 19:59:00 Test Item Value Reference Range Interpretation Comments POC-GLUCOSE METER 282 mg/dL 70-110 H TESTED AT [facility] 6720 (BEAKER) (test code = [facility] [place] Rosalva [place] 1538) [address] POCT-GLUCOSE [id number] 19:02:00 Test Item Value Reference Range Interpretation Comments POC-GLUCOSE METER 374 mg/dL 70-110 H Notified R Evita DAVIS/TESTED (BEAKER) (test code = AT [facility] [address] [facility]) [place] [address] CBC W/PLT COUNT & AUTO [id number] 18:56:00 Test Item Value Reference Range Interpretation [...] PERCENT (BEAKER) (test code = 2801) POCT-GLUCOSE [id number] 18:03:00 Test Item Value Reference Range Interpretation Comments POC-GLUCOSE METER 294 mg/dL 70-110 H TESTED AT [facility] 6720 (TACO) (test code = [place] 1538) [address] HEMOGLOBIN [id number] 17:45:00 Test Item Value Reference Range Interpretation Comments HEMOGLOBIN A1C (ATCO) (test code = 12.6 % 4.3-6.1 H 368) RAD, CHEST, 1 VIEW, NON [id number] 17:20:00Reason for exam:->sobShould this be performed at [...] No acute cardiopulmonary abnormality. Signed: Salomon Mckeon MDReport Verified Date/Time: 04/07/2017 17:20:50 Reading Location: [address] Radiology Reading Room TSH/FREE T4 IF [id number] 17:04:00 Test Item Value Reference Range Interpretation Comments THYROID STIMULATING HORMONE 0.95 uIU/mL 0.35-4.94 (TACO) (test code = 772) TROPONIN [id number] 16:51:00 Test Item Value Reference Range Interpretation [...] renalfailure, acidosis, acute neurological disease, and persistent tachyarrhythmia.[id number] 16:45:00 Test Item Value Reference Range Interpretation Comments LIPASE (BEAKER) (test code = 749) 33 U/L 8-78 [id number] 16:45:00 Test Item Value Reference Range Interpretation Comments AMYLASE (BEAKER) (test code = 349) 66 U/L 25-125 BASIC METABOLIC [id number] 16:45:00 Test Item Value Reference Range Interpretation [...] DIALYSIS PATIEN TS. LACTIC ACID, VENOUS, WHOLE [id number] 16:45:00 Test Item Value Reference Range Interpretation Comments LACTATE BLOOD VENOUS (2) (BEAKER) 1.1 mmol/L 0.5-2.2 (test code = 2872) Effective 12/05/2015: Units/Reference Range ChangeNew: 0.5-2.2 mmol/L Previous: 5-20 mg/dLKETONE, [id number] 16:41:00 Test Item Value Reference Range Interpretation Comments KETONES, BLOOD (BEAKER) (test code 2.1 mmol/L <0.4 H = 1103) BLOOD GAS, [id number] 16:27:00 Test Item Value Reference Range Interpretation [...] 37.0 C (test code = 1818) POCT-GLUCOSE [id number] 16:20:00 Test Item Value Reference Range Interpretation Comments POC-GLUCOSE METER 156 mg/dL 70-110 H TESTED AT [place] [address] ([facility]) (test code = [place] 1538) [address] POCT-GLUCOSE [id number] 15:28:00 Test Item Value Reference Range Interpretation Comments POC-GLUCOSE METER 101 mg/dL 70-110 TESTED AT [place] [address] ([facility]) (test code = [place] 1538) [address]
--- OUTSIDE RECORDS SUMMARY | 2020-06-26 17:46 | XMS REPORT | Summary of Care ---
:2000 Author Organization [facility] Address [address] [place] [address] Care Team Providers Name Role Phone Eileen Schlute [facility] Primary Care Provider [phone] Reason for Referral (Routine) Status Reason Specialty Diagnoses / Referred By Referred To Procedures Contact Contact New Request Endocrinology Diagnoses Uncontrolled type 1 diabetes mellitus with hypoglycemia without coma Ino Diabetes & Procedures CONSULT/REFERRAL ENDOCRINOLOGY Diabetes Lisset Demarco MD [address] [address] Reason for Visit Reason Comments Encounter Details Date Type Department Care Team Description 06/18/2020 Telemedicine Visit [facility]- Elvie March MD [address] [address] History of section (Primary Dx) ; [facility], [facility] Mf Supervision of high risk in se cond trimester; [address] Uncontrol led type 1 diabetes mellitus [place] [address] Allergies Active Allergy Reactions Severity [...] as of this encounter (statuses as of 06/18/2020) Medications Medication Sig Dispensed Refills Start Date [...] 0 05/08/2020 Active (TRUE METRIX GLUCOSE METER) [facility] blood sugar Patient to check 1 Box 5 05/08/2020 Active diagnostic (TRUE blood sugar four METRIX GLUCOSE TEST times daily STRIP) strip Lancets [facility] Patient to check 100 Each 5 05/08/2020 [...] diabetes mellitus with hypoglycemia without coma ondansetron (ZOFRAN Take 1 tablet by 12 tablet 0 06/13/2020 Active ODT) 4 mg mouth every 8 disintegrating (eight) hours as tabletIndications: needed for Nausea Nausea and Vomiting (N/V). documented as of this encounter (statuses as of 06/18/2020) Active Problems Problem Noted Date Supervision of high-risk 04/16/2020 History of section 04/16/2020 Overview: At [facility] in 2016 DKA (diabetic ketoacidoses) 07/18/2014 Overview: Sep, 2015- admission for DKA and E coli UTI 09/2015, 10/2015, (neg 12/2015) Type 1 diabetes mellitus, uncontrolled 09/09/2013 Overview: Sliding scale novalog reports 5-10U Bedtime 38U Levemir at bedtime A1c 9.2 Depressive disorder 10/17/2012 Overview: wellbutrin 1 yr ago- self d/c. 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 documented as of this encounter Last Filed Vital Signs Not on filedocumented in this encounter Progress Notes Celena Khan MD - 06/18/2020 10:30 AM CST [facility] TELEHEALTH NOTE Verbal consent obtained from Patient: Salome Santacruz due to the COVID-19 pandemic for telehealth services provided below. Communication with patient was conducted via Video Call. Location of Patient: Home Location of Provider: Office Date of Service: 06/18/2020 Salome Santacruz is a 20 year old @ 17w2d who is scheduled for follow up. Patient reports feeling "okay." Recently has had very labile BG prompting 2 ED visits within the last week. FM - + VB - denies CTX [...] Start Date End Date Taking? Authorizing Provider ondansetron (ZOFRAN ODT) 4 mg disintegrating tablet Take 1 tablet by mouth every 8 (eight) hours as needed for Nausea and Vomiting (N/V). 06/13/20 Sameer Altamirano, DO aspirin 81 mg chewable tablet Take 1 [...] MD Blood-Glucose Meter (TRUE METRIX GLUCOSE METER) [facility] Use as directed 05/08/20 Carla Alegre MD insulin syringe-needle U-100 1 ml (INSULIN SYRINGE) 1 mL 29 gauge x 1/2" Syrg Patient to administer insulin twice daily 05/08/20 Carla Alegre MD Lancets [facility] Patient to check blood sugar four times daily 05/08/20 Carla Alegre MD doxylamine-pyridoxine, vit B6, (DICLEGIS) 10-10 mg per tablet Take 2 tablets by mouth at bedtime. 04/16/20 Eileen Schulte, WHCNP ondansetron HCl (ZOFRAN ORAL) Take 4 mg base by mouth. Doctor Unassigned, [place] acetaminophen-codeine 300-30 mg tablet Take 1 tablet by mouth every 6 (six) hours as needed for Pain(scale 7-10). 01/10/20 Palmira Lowery FNP ibuprofen 800 mg tablet Take 1 tablet by mouth every 8 (eight) hours as needed for Pain (scale 4-6).01/10/20 Lowery, Palmira, RENEWABLE ENERGY CONSULTANT hydrOXYzine 25 mg tablet Take 25 mg by mouth at bedtime as needed for Other (sleep). Doctor Unassigned, [place] SERTraline 50 mg tablet Take 1 tablet [...] blood ketone strips. 03/16/13 Sameer Lizama MD ROS See HPI, otherwise negative TELEHEALTH EXAM Normal respirations, NO SOB observed over phone call Alert and communicating appropriately No distress Assessment and Plan: Salome Santacruz is a 20 year old @ 17w2d who is scheduled for follow up. Class D DM -Diagnosedage 1, previously on insulin pumpbut lost insurance - multiple episodes of DKA in past, evaluated in ED on 06/13 (not in DKA, IVF administered), [facility] due to BG of 5 at 0200 and non-responsive state. Log reviewed and scanned via [employer]. In reviewing severe hypoglycemic episode on 06/17, patient did not take NPH as scheduled however took regular insulin above sliding scale recommendation. When patient takes NPH at bedtime instead of sliding scale correction, she does not have routinely night-time or AM hypoglycemia. Patient counseled that she must strictly adhere to proposed sliding scale due to very brittle disease.Counseled on the risks of hypo and hyperglycemia. Will leave regimen otherwise the same and increaseNPH in AM slightly. AM 26N/16R PM 10N/12Rwith sliding scale.Will consult endocrinology at this time for consideration of insulin pump. Due to more lability last week will order UA/UC to rule out underlying infection. - HgbA1c 9.4% on 04/16/20 - Baseline EKG:normal sinus rhythm -[id number] hour urine:364 mg. Normal baseline labs. Normal TSH - On ASA 81 mg daily, continue until 36 weeks -Ophthalmology, genetics andnutrition consultplaced - Needs diabetic foot exam at next visit - Recommendlevel II anatomy scanand echo,Growth US q4 weeks after anatomy scan, Sliding scale: BG 201 to 240, give 1units BG 241 to 280, give 2units BG 281 to 300, give 3units BG >300, give 4units Bipolar Disorder - followed by psychiatry at [facility], started on Zoloft - mood overall stable; denies SI/HI Prev CS X 1 -documented LTCS at [facility] for NRFHT Routine PNC -Needs f/u scheduled - Quad screen negative Follow up: Schedule ophthalmology and endocrinology Lab Future Appointments Date Time Provider Department Center 06/18/2020 10:30 AM Faculty, Ang Rmchp Mfm ANGOBS [facility] Ang 07/09/2020 1:00 PM ANG-MFM ULTRASOUND ANGOBSUS [facility] Ang After visit summary (AVS ) documentation will be available through [employer] for this encounter. A total of 30 minutes was spent on the Video Call, chart review, and coordination of care with specialists. Discussed with staff. Celena Khan MD PGY5 MFM Fellow documented in this encounter Plan of Treatment Date Type Specialty Care Team Description 07/09/2020 Journalism Teacher Visit Maternal Medicine Name Type Priority Associated Diagnoses Order S chedule POCT URINALYSIS W LAB Routine Uncontrolled type 1 Ord ered: 06/18/2020 SPECIFIC GRAVITY diabetes mellitus with hypoglycemia without coma URINE CULTURE LAB Routine Uncontrolled type 1 Expecte d: 06/18/2020, diabetes mellitus with Expir es: 06/18/2021 hypoglycemia without coma Health Maintenance Due Date Last [...] 07/22/2012 10/22/2017 ([place] Guidelines) CREATININE (SERUM) 06/13/2021 06/13/2020, 05/24/2020, 05/16/2020, Additional history exists PAP SMEAR 04/16/2023 04/16/2020, [...] 06/11/2020, 09/07/2015 documented as of this encounter Results Not on filedocumented in this encounter Visit Diagnoses Diagnosis History of section - Primary Other postprocedural status Supervision of high risk in se cond trimester Unspecified high-risk Uncontrolled type 1 diabetes mellitus wi th hypoglycemia without coma documented in this encounter Insurance Payer Benefit Plan / Subscriber ID Effective Dates Phone Addre ss Type Group [place] [facility] [place] [id number] 2020-Present Medicaid HEALTH PLAN - HEALTH MANAGED MEDICAID documented as of this encounter Advance Directives Type Date Recorded Patient Night Nurse Explanati on Advance Directives and Living Will Power of Special Diet Cook Name Relationship Healthcare Agent Communication Relationship Monet (call first) Sibling Health Care Agent Héctor (Mobile) Suleiman Forte Spouse Health Care Agent Caleb Santacruz Mother First [facility] [phone] Care Agent (Mobile)
--- OUTSIDE RECORDS SUMMARY | 2020-06-26 17:47 | XMS REPORT | Summary of Care ---
:2000 Author Organization [facility] Address [address] [place] [address] Care Team Providers Name Role Phone Eileen Schulte [facility] Primary Care Provider [phone] Reason for Visit Reason Comments Care MFM Visit Encounter Details Date Type Department Care Team Description 06/25/2020 Routine [facility]- Rohan Carreon MD [address] [facility] [id number] [place] [address] History of section (Primary Dx) ; Visit [facility], [facility] Uncontrolled type 1 diabetes mellitus wi th hypoglycemia without coma; [address] [facility] Supervisi on of high risk , ante[place] [address] Allergies Active Allergy Reactions Severity [...] as of this encounter (statuses as of 06/25/2020) Medications Medication Sig Dispensed Refills Start Date [...] 0 05/08/2020 Active (TRUE METRIX GLUCOSE METER) [facility] [place] sugar Patient to check 1 Box 5 05/08/2020 Active diagnostic (TRUE blood sugar four METRIX GLUCOSE TEST times daily STRIP) strip Lancets [facility] Patient to check 100 Each 5 05/08/2020 [...] as of this encounter (statuses as of 06/25/2020) Active Problems Problem Noted Date Supervision of high-risk 04/16/2020 History of section 04/16/2020 Overview: At [facility] in 2016 DKA (diabetic ketoacidoses) 07/18/2014 Overview: Sep, 2015- admission for DKA and E coli UTI 09/2015, 10/2015, (neg 12/2015) Type 1 diabetes mellitus, uncontrolled 09/09/2013 Overview: Sliding scale novalog reports 5-10U Bedtime 38U Levemir at bedtime A1c 9.2 Depressive disorder 10/17/2012 Overview: wellbutrin 1 yr ago- self d/c. Attention deficit hyperactivity disorder (ADHD) 2012 Overview: ICD10 Diagnosis Term Reefer Engineer Utility Estimated Date of Delivery Comments Yes 11/24/2020 Based on Ultrasound documented as of this encounter (statuses as of 06/25/2020) Resolved Problems Problem Noted Date Resolved Date [...] as of this encounter (statuses as of 06/25/2020) Immunizations Name Administration Dates Next Due DTAP [...] been in contact with No / Unsure 06/25/2020 9:13 AM CLOTHING MANAGER someone who was confirmed or suspected to have Coronavirus / COVID-19? documented as of this encounter Last Filed Vital Signs Vital Sign Reading Time Taken Comments Blood Pressure 108/69 06/25/2020 9:14 AM CLOTHING MANAGER Pulse 96 06/25/2020 9:14 AM CLOTHING MANAGER Temperature 36.9 C (98.5 F) 06/25/2020 9:14 AM CLOTHING MANAGER Respiratory Rate 16 06/25/2020 9:14 AM CLOTHING MANAGER Oxygen Saturation - - Inhaled Oxygen Concentration - - Weight 66 kg (145 lb 9 oz) 06/25/2020 9:14 AM CLOTHING MANAGER Height 162.6 cm (5' 4") 06/25/2020 9:14 AM CLOTHING MANAGER Body Mass Index 24.99 06/25/2020 9:14 AM CLOTHING MANAGER documented in this encounter Progress Notes Celena Khan MD - 06/25/2020 9:15 AM CST M Fellow Clinic Return Visit Salome Santacruz is a 20 year old @ 18w2d who is here for follow up. Patient feeling well without any complaints. No recent severe hypoglycemic episodes or symptoms concerning for DKA. FM - + VB - denies CTX [...] Nausea and Vomiting (N/V). 06/13/20 Sameer Altamirano, aspirin 81 mg chewable tablet Take 1 [...] MD Blood-Glucose Meter (TRUE METRIX GLUCOSE METER) [facility] Use as directed 05/08/20 Carla Alegre MD insulin syringe-needle U-100 1 ml (INSULIN SYRINGE) 1 mL 29 gauge x 1/2" Syrg Patient to administer insulin twice daily 05/08/20 Carla Alegre MD Lancets [facility] Patient to check blood sugar four times daily 05/08/20 Carla Alegre MD doxylamine-pyridoxine, vit B6, (DICLEGIS) 10-10 mg per tablet Take 2 tablets by mouth at bedtime. 04/16/20 Eileen Schulte, ANTONIOP ondansetron HCl (ZOFRAN ORAL) Take 4 mg base by mouth. Doctor Unassigned, [place] acetaminophen-codeine 300-30 mg tablet Take 1 tablet by mouth every 6 (six) hours as needed for Pain(scale 7-10). 01/10/20 Palmira Lowery FNP ibuprofen 800 mg tablet Take 1 tablet by mouth every 8 (eight) hours as needed for Pain (scale 4-6).01/10/20 Palmira Lowery FNP hydrOXYzine 25 mg tablet Take 25 mg by mouth at bedtime as needed for Other (sleep). Doctor Unassigned, [place] SERTraline 50 mg tablet Take 1 tablet by mouth daily. 11/12/16 Sohail Xiong MD blood sugar diagnostic (FREESTYLE LITE STRIPS) strip 6 (six) times daily. 07/24/14 Sameer Lizama MD glucagon (GLUCAGON EMERGENCY) 1 mg injection 1 mg by Intramuscular route as needed (For severe hypoglycemia). 07/24/14 Sameer Lizama MD Blood-Glucose Meter (PRECISION XTRA) [facility] To be used with blood ketone strips. 03/16/13 Sameer Lizama MD OBJECTIVE: BP 108/69 (BP Location: Right arm, Patient Position: Sitting, BP CUFF SIZE: Adult Medium) | Pulse 96 | Temp 36.9 C (98.5 F) (Oral) | Resp 16 | Ht 5' 4" (1.626 m) | Wt 145 lb 9 oz (66 kg) | LMP 03/19/2020 (Approximate) | BMI 24.99 kg/m Could not be calculated Physical Exam: General - NAD CV - RRR Pulm - CTAB Abdomen - NT, gravid Extremities - No edema Urine dipstick - 3+ glucose, negative ketones BG Log from last week: 495/330/472/192 339/419/373/46 77/282/334/297 182/524/556/285 192/279/198/133 FHTS: 140s Assessment and Plan: Salome Santacruz is a 20 year old @ 18w2d who is here for follow up. Class D DM - very brittle T1DM -Diagnosedage 1, previously on insulin pumpbut lost insurance - Multiple episodes of DKA in past, admitted at the beginning of for glycemic control. Patient has also had a severe hypoglycemic episode this due to using own sliding scale parameters - Current regimen: AM 26N/16R PM 10N/12Rwith sliding scale. Endocrinology was consulted last visitdue to difficult to control disease and potential consideration of insulin pump. Appointment is not until 09/2020. Clinic called by SHUN RN, unable to be seen sooner. Patient will call providers outsideof [facility] system to see if she can find sooner appointment. - Log reviewed - see values above. Log this week with less lability and more consistent elevations. Reports not usually taking PM NPH due to concern for hypoglycemia. Reports when she did take it this past week, her BG at 0300 was in 40s. Will change regimen to AM 28N/18R PM 5N/12R. - Counseled on the risks of hypo and hyperglycemia. Will continue weekly visits due to brittle disease. - HgbA1c 9.4% on 04/16/20 - Baseline EKG:normal sinus rhythm -[id number] hour urine:364 mg. Normal baseline labs. Normal TSH - On ASA 81 mg daily, continue until 36 weeks - Patient declined first ophthalmology consult, importance discussed with patient, appointment re-scheduled -s/p genetics, nutrition consultplaced - Diabetic foot exam normal - Recommendlevel II anatomy scanand echo,Growth US q4 weeks after anatomy scan, NST twice weekly at 30 weeks Sliding scale: BG 201 to 240, give 1units BG 241 to 280, give 2units BG 281 to 300, give 3units BG >300, give 4units Bipolar Disorder - followed by psychiatry at [facility], started on Zoloft - mood overall stable; denies SI/HI Prev CS X 1 -documented LTCS at [facility] for NRFHT Routine PNC - Quad screen negative - s/p flu vaccine Future Appointments Date Time Provider Department Center 06/25/2020 9:15 AM Faculty, Harvey Capellan Mfm ANGOBS [facility] 07/09/2020 1:00 PM ANG-MFM ULTRASOUND ANGOBSUS [facility] 07/12/2020 10:30 AM Telemedicine, Con-Rmchp CONOBS [facility] Con 09/12/2020 10:30 AM Jaswinder Coy MD [facility] Discussed with staff. Celena Khan MD PGY5 MFM Fellow documented in this encounter Plan of Treatment Date Type Specialty Care Team Description 06/27/2020 Office Visit Ophthalmology Jaquelin Fall MD [address] [place] [address]. [place], [place] [address] 07/02/2020 Telemedicine Visit [facility] Faculty, Harvey Colon 07/09/2020 Architectural Manager Visit Maternal Medicine 07/12/2020 Telemedicine Visit [facility] Ian Smith MD [address] [facility] [address] [address] [place] [address] [phone] Lise, BhavnaRmchp 09/12/2020 Office Visit Endocrinology Diabetes Jessica Coy MD & Metabolism [address] [facility] [place] [address] [phone] Health Maintenance Due Date Last Done Comments [...] Associated Diagnosis Comme nts POCT URINALYSIS Routine 06/25/2020 9:19 AM Supervision of hig h Results for this CLOTHING MANAGER risk , procedure ar e in antepartum the results section. documented in this encounter Results POCT URINALYSIS W SPECIFIC GRAVITY (06/25/2020 9:19 AM CLOTHING MANAGER) Pathologist Sig nature POCT U SP GRAV . 1.005 - 1.025 mg/dl POCT PH U 6 5 - 8 mg/dl POCT U LEUK EST negative Negative - Negative POCT U NIT negative Negative - Negative POCT U PROT trace Negative - Negative POCT U GLU 3+ Negative - Negative POCT U KETONE negative Negative - Negative POCT U UROBILI . 0.2 - 1 mg/dl POCT U BILI . Negative - Negative POCT U BLD negative Negative - Negative POCT U COLOR POCT U APPEAR Specimen Urine - URINE, CLEAN CATCH documented in this encounter Visit Diagnoses Diagnosis History of section - Primary Other postprocedural status Uncontrolled type 1 diabetes mellitus wi th hypoglycemia without coma Supervision of high risk , ante documented in this encounter Insurance Payer Benefit Plan / Subscriber ID Effective Dates Phone Addre ss Type Group [facility] [place] [facility] [id number] 2020-Present Medicaid HEALTH PLAN - HEALTH MANAGED MEDICAID documented as of this encounter Advance Directives Type Date Recorded Patient Cut Out Operator Explanati on Advance Directives and Living Will Power of Emd Special Education Teacher Name Relationship Healthcare Agent Communication Relationship Monet (call first) Sibling Health Care Agent [phone] Héctor (Mobile) Suleiman Forte Spouse Health Care Agent Caleb Santacruz Mother First [facility] [phone] Care Agent (Mobile)
--- OUTSIDE RECORDS SUMMARY | 2020-06-26 17:47 | XMS REPORT | Summary of Care ---
:1998 Author Organization [facility] Address [address] [place] [address] Care Team Providers Name Role Phone Eileen Schulte [facility] Primary Care Provider Reason for Visit Reason Comments Results Encounter Details Date Type Department Care Team Description 06/22/2020 Telephone [facility]- A Eileen Mabry, Results [address] [address] [phone] [place], [place] [address] [phone] Allergies Active Allergy Reactions Severity Noted Date [...] 0 05/08/2020 Active (TRUE METRIX GLUCOSE METER) [facility] blood sugar Patient to check 1 Box 5 05/08/2020 Active diagnostic (TRUE blood sugar four METRIX GLUCOSE TEST times daily STRIP) strip Lancets [facility] Patient to check 100 [...] 04/16/2020 History of section 04/16/2020 Overview: At [facility] in 2016 DKA (diabetic ketoacidoses) 07/18/2014 Overview: Sep, 2015- admission for DKA and E coli UTI 09/2015, 10/2015, (neg 12/2015) Type 1 diabetes mellitus, uncontrolled 09/09/2013 Overview: Sliding scale novalog reports 5-10U Bedtime 38U Levemir at bedtime A1c 9.2 Depressive disorder 10/17/2012 Overview: wellbutrin 1 yr ago- self d/c. Attention deficit hyperactivity disorder (ADHD) 2012 Overview: ICD10 Diagnosis Term Retail Receiving Clerk Utility Estimated Date of Delivery Comments Yes [...] with No / Unsure 06/13/2020 1:50 PM ERP PROJECT MANAGER someone who was confirmed or suspected to have Coronavirus / COVID-19? documented as of this encounter Last Filed Vital Signs Not on filedocumented in this encounter Miscellaneous Notes Telephone Encounter - Ebony Crawford RN - 06/25/2020 8:39 AM CSTPt will be seen in clinic today elephone Encounter - Sona Rucker - 06/22/2020 1:38 PM ERP PROJECT MANAGER Salome Santacruz is a 20 year old female Patient is returning missed call from clinic. Please call patient at [phone] (home) documented in this encounter Plan of Treatment Date Type Specialty Care Team Description 06/25/2020 Routine Visit [facility] Basia Carreon MD [id number] [place], [place] [id number] Faculty, Harvey Capellan [facility] 07/09/2020 Alumina Refinery Operator Visit Maternal Medicine 07/12/2020 Telemedicine Visit [facility]ell[facility] Ian Smith MD [address] [facility] [address] [place] [address] Telemedicine, Anthony 09/12/2020 Office Visit Endocrinology Diabetes Jessica Coy MD & Metabolism [address] [place], [place] [id number] Health Maintenance Due Date Last Done Comments [...] Addre ss Type Group [place] [facility] [place] [id number] 2020-Present Medicaid HEALTH PLAN - HEALTH MANAGED MEDICAID documented as of this encounter Advance Directives Type Date Recorded Patient Natural Science Curator Explanati on Advance Directives and Living Will Power of Dental Tech Name Relationship Healthcare Agent Communication Relationship Monet (call first) Sibling Health Care Agent Héctor (Mobile) Suleiman Forte Spouse Health Care Agent Caleb Santacruz Mother First [facility] [phone] Care Agent (Mobile)
--- OUTSIDE RECORDS SUMMARY | 2020-06-26 17:47 | XMS REPORT | Summary of Care ---
:2000 Author Organization [facility] - [address] [address] Care Team Providers Name Role Phone Eileen Schulte [facility] Primary Care Provider [phone] Reason for Visit Reason Comments Appointment Encounter Details Date Type Department Care Team Description 06/19/2020 Telephone [facility] Women's Betzy Khan MD Appointment Healthcare-[address] [phone] [place] [address] 67-[address] [place] [address] Allergies Active Allergy Reactions Severity Noted Date [...] as of this encounter (statuses as of 06/19/2020) Medications Medication Sig Dispensed Refills Start Date [...] 05/08/2020 Active (TRUE METRIX GLUCOSE METER) [facility] blood sugar Patient to check [address] 05/08/2020 Active diagnostic (TRUE blood sugar four METRIX GLUCOSE TEST times daily STRIP) strip Lancets [facility] Patient to check [...] as of this encounter (statuses as of 06/19/2020) Active Problems Problem Noted Date Supervision of high-risk 04/16/2020 History of section 04/16/2020 Overview: At [facility] in 2016 DKA (diabetic ketoacidoses) 07/18/2014 Overview: Sep, 2015- admission for DKA and E coli UTI 09/2015, 10/2015, (neg 12/2015) Type 1 diabetes mellitus, uncontrolled 09/09/2013 Overview: Sliding scale novalog reports 5-10U Bedtime 38U Levemir at bedtime A1c 9.2 Depressive disorder 10/17/2012 Overview: wellbutrin 1 yr ago- self d/c. Attention deficit hyperactivity disorder (ADHD) 2012 Overview: ICD10 Diagnosis Term Sde Utility Estimated Date of Delivery Comments Yes 11/24/2020 Based on Ultrasound documented as of this encounter (statuses as of 06/19/2020) Resolved Problems Problem Noted Date Resolved Date [...] as of this encounter (statuses as of 06/19/2020) Immunizations Name Administration Dates Next Due DTAP [...] with No / Unsure 06/13/2020 1:50 PM BLIND LACER someone who was confirmed or suspected to have Coronavirus / COVID-19? documented as of this encounter Last Filed Vital Signs Not on filedocumented in this encounter Miscellaneous Notes Telephone Encounter - Ebony Crawford RN - 06/19/2020 9:12 AM CSTRN called patient to give [facility] Endocrinology contact info. Left voicemail. Patient may make Endocrine appointment at her convenience. Also, stressed that patient needs to reschedule Opthomology appointment, as patient declined to be scheduled when they contacted her. documented in this encounter Plan of Treatment Date Type Specialty Care Team Description 06/25/2020 Routine Visit OB Satellites Faculty, Harvey Rmp Mfm 07/09/2020 Form Tamper Visit Maternal Medicine Health Maintenance Due Date [...] Effective Dates Phone Addre ss Type Group [place]ENS [id number] 2020-Present Medicaid HEALTH PLAN - HEALTH MANAGED MEDICAID documented as of this encounter Advance Directives Type Date Recorded Patient Bi Developer Explanati on Advance Directives and Living Will Power of Gimp Buttonhole Machine Operator Name Relationship Healthcare Agent Communication Relationship Monet (call first) Sibling Health Care Agent Héctor (Mobile) Suleiman Forte Spouse Health Care Agent Caleb Santacruz Mother First [place] Health Care Agent (Mobile)
--- OUTSIDE RECORDS SUMMARY | 2020-06-26 17:47 | XMS REPORT | Summary of Care ---
:2000 Author Organization [facility] Address [address] [place] [id number] Care Team Providers Name Role Phone Eileen Schulte [facility] Primary Care Provider Reason for Visit Reason Comments Results Would like to discuss urine culture results Assessment right side rib pain is 8 Encounter Details Date Type Department Care Team Description [facility] Res (Would like to cMkenzie [facility] discuss urine culture [address] results); Assessment Street MIKE A (right side rib pain [place], [place] [address] is 8) [phone] Allergies Active Allergy Reactions Severity Noted [...] as of this encounter (statuses as of 06/26/2020) Medications Medication Sig Dispensed Refills Start Date [...] 0 05/08/2020 Active (TRUE METRIX GLUCOSE METER) [facility] blood sugar Patient to check 1 [address] 05/08/2020 Active diagnostic (TRUE blood sugar four METRIX GLUCOSE TEST times daily STRIP) strip Lancets [facility] Patient to check 100 Each 5 05/08/2020 [...] as of this encounter (statuses as of 06/26/2020) Active Problems Problem Noted Date Supervision of high-risk 04/16/2020 History of section 04/16/2020 Overview: At [facility] in 2016 DKA (diabetic ketoacidoses) 07/18/2014 Overview: Sep, 2015- admission for DKA and E coli UTI 09/2015, 10/2015, (neg 12/2015) Type 1 diabetes mellitus, uncontrolled 09/09/2013 Overview: Sliding scale novalog reports 5-10U Bedtime 38U Levemir at bedtime A1c 9.2 Depressive disorder 10/17/2012 Overview: wellbutrin 1 yr ago- self d/c. Attention deficit hyperactivity disorder (ADHD) 2012 Overview: ICD10 Diagnosis Term Sponge Clipper Utility Estimated Date of Delivery Comments Yes 11/24/2020 Based on Ultrasound documented as of this encounter (statuses as of 06/26/2020) Resolved Problems Problem Noted Date Resolved Date [...] 01/24/2016 UTI (lower urinary tract infection) 01/18/2015 11/2015 Recurrent UTI (urinary tract infection) complicating [...] as of this encounter (statuses as of 06/26/2020) Immunizations Name Administration Dates Next Due DTAP [...] with No / Unsure 06/25/2020 9:13 AM BREAD BAKER someone who was confirmed or suspected to have Coronavirus / COVID-19? documented as of this encounter Last Filed Vital Signs Not on filedocumented in this encounter Miscellaneous Notes Telephone Encounter - Marie Melvin RN - 06/26/2020 4:31 PM CSTCalled patient, patient having uti symptoms and vomiting. Requesting urine culture results. Advised no culture sent. Patient states will go to ER bc in pain. Verbalized understanding. MARIE MELVIN RN 06/26/2020 4:32 PM D BAKER Telephone Encounter - Marta Nelson - 06/26/2020 3:37 PM CSTElizavlad Santacruz is a 20 year old female Is having right rib pain of an 8. Is also, calling to discuss her urine culture results. Please call. documented in this encounter Plan of Treatment Date Type Specialty Care Team Description 06/27/2020 Office Visit Ophthalmology Jaquelin Fall MD [address] [place] [address]. [place], [place] [address] 07/02/2020 Telemedicine Visit OB Satellites [facility] 07/09/2020 Retirement Plan Counselor Visit Maternal Medicine 07/12/2020 Telemedicine Visit OB Satellites Ian Smith MD [address] [place] [address] [facility]med[facility], [facility] 09/12/2020 Office Visit Endocrinology Diabetes Jessica Coy MD & Metabolism [address] [place], [place] [id number] Health Maintenance Due Date Last Done Comments [...] Effective Dates Phone Addre ss Type Group [place] [id number] 2020-Present Medicaid HEALTH PLAN - HEALTH MANAGED MEDICAID documented as of this encounter Advance Directives Type Date Recorded Patient Banquet Houseperson Explanati on Advance Directives and Living Will Power of Skein Washer Name Relationship Healthcare Agent Communication Relationship Monet (call first) Sibling Health Care Agent [phone] Héctor (Mobile) Suleiman Forte Spouse Health Care Agent Caleb Santacruz Mother First [facility] Care Agent (Mobile)
--- NOTE | 2020-06-26 18:27 | RAD REPORT ---
EXAM DESCRIPTION: RAD - Chest Single View - 06/26/2020 6:17 pm CLINICAL HISTORY: shield pt;Chest pain Chest pain. COMPARISON: Chest Single View dated 04/07/2017; Chest Single View dated 12/04/2015; CHEST SINGLE VIEW da denton 01/18/2015; CHEST SINGLE VIEW dated 09/08/2013 FINDINGS: Portable technique limits examination quality. The lungs are grossly clear. The heart is normal in size. No displaced fractures. IMPRESSION: No acute intrathoracic process suspected.
[2020-06-26] MEDS ORDERED: NA CHLORIDE 0.9% 1,000 ML ONE (18:41)
[2020-06-26 18:47] LABS: Absolute Lymphocytes (CBC) 2.2 K/uL (0.7-4.9); Basophils % 0.8 % (0-1.3); Hematocrit 36.7 % (36.0-45.0); Lymphocytes % 20.7 % (15.3-44.8); MPV 7.8 fL (7.6-11.3); RBC Red Blood Cell Count 4.26 M/uL (3.86-4.86)
[2020-06-26 18:56] LABS: BUN Blood Urea Nitrogen 9 mg/dL (7-18); Bicarbonate 23 mmol/L (21-32); Glucose Level 383 mg/dL (74-106); Potassium 3.9 mmol/L (3.5-5.1); Sodium Level 134 mmol/L (136-145)
--- NOTE | 2020-06-26 19:03 | EDPHYS ---
Physician Documentation [facility] Name: Salome Santacruz Age: 20 yrs Sex: Female : 2000 Arrival Date: 06/26/2020 Time: 17:37 Bed 16 Private MD: ED Physician Sameer Altamirano HPI: 06/26 18:16 This 20 yrs old Female presents to ER via Ambulatory with complaints of Rib kb Pain- 18 wks preg. 18:12 The patient presents with pain that is acute, with no known mechanism of injury. kb 18:16 The symptoms are located in the right mid back and right subscapular area and right kb scapular area. Onset: The symptoms/episode began/occurred 4 day(s) ago. The pain does not radiate. Associated signs and symptoms: Pertinent positives: back pain. The problem was sustained from unknown cause. Modifying factors: The patient symptoms are alleviated by nothing, the patient symptoms are aggravated by any movement, palpation. Severity of symptoms: At their worst the symptoms were moderate, severe, in the emergency department the symptoms are unchanged. The patient has experienced a previous episode, last month. 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 - Social history:: Smoking status: unknown. ROS: 18:08 Constitutional: Negative for fever, chills, and weight loss, Cardiovascular: Negative kb for chest pain, palpitations, and edema, Respiratory: Negative for shortness of breath, cough, wheezing, and pleuritic chest pain, Abdomen/GI: Negative for abdominal pain, nausea, vomiting, diarrhea, and constipation, : Negative for injury, bleeding, discharge, and swelling, MS/Extremity: Negative for injury and deformity, Skin: Negative for injury, rash, and discoloration, Neuro: Negative for headache, weakness, numbness, tingling, and seizure. 18:08 Back: Positive for pain with movement, of the right scapular area, right subscapular area and right mid back. Exam: 18:08 Constitutional: This is a well developed, well nourished patient who is awake, alert, kb and in no acute distress. Head/Face: Normocephalic, atraumatic. Chest/axilla: Normal chest wall appearance and motion. Nontender with no deformity. No lesions are appreciated. Cardiovascular: Regular rate and rhythm with a normal S1 and S2. No gallops, murmurs, or rubs. Normal PMI, no JVD. No pulse deficits. Respiratory: Lungs have equal breath sounds bilaterally, clear to auscultation and percussion. No rales, rhonchi or wheezes noted. No increased work of breathing, no retractions or nasal flaring. Abdomen/GI: Soft, non-tender, with normal bowel sounds. No distension or tympany. No guarding or rebound. No evidence of tenderness throughout. Skin: Warm, dry with normal turgor. Normal color with no rashes, no lesions, and no evidence of cellulitis. MS/ Extremity: Pulses equal, no cyanosis. Neurovascular intact. Full, normal range of motion. Neuro: Awake and alert, GCS 15, oriented to person, place, time, and situation. Cranial nerves II-XII grossly intact. Motor strength 5/5 in all extremities. Sensory grossly intact. Cerebellar exam normal. Normal gait. 18:08 Back: pain, that is moderate, of the right mid back and right subscapular area and right scapular area, moderately tender, ROM is painful, pain to right side of back when raising right arm. normal spinal alignment noted. Vital Signs: 17:40 BP 118 / 76; Pulse 84; Resp 16 S; Temp 97.6(TE); Pulse Ox 100% on R/A; Weight 65.77 kg ca1 (R); Height 5 ft. 4 in. (162.56 cm) (R); Pain 10/10; 18:45 BP 116 / 71; Pulse 90; Resp 17; Pulse Ox 100% on R/A; tw2 20:01 BP 108 / 66; Pulse 89; Resp 17 S; Pulse Ox 100% on R/A; jd3 17:40 Body Mass Index 24.89 (65.77 kg, 162.56 cm) ca1 MDM: 17:47 Patient medically screened. kb 18:10 Data reviewed: vital signs, nurses notes. Data interpreted: Pulse oximetry: on room air kb is 100 %. Interpretation: normal. Counseling: I had a detailed discussion with the patient and/or guardian regarding: the historical points, exam findings, and any diagnostic results supporting the discharge/admit diagnosis, radiology results, the need for outpatient follow up, a family practitioner, to return to the emergency department if symptoms worsen or persist or if there are any questions or concerns that arise at home. 06/26 17:45 Order name: Urine Microscopic Only; Complete Time: 19:54 kb 06/26 18:16 Order name: Urine Dipstick--Ancillary (enter results); Complete Time: 19:28 bd 06/26 18:20 Order name: CBC with Diff; Complete Time: 18:49 kb 06/26 18:20 Order name: Basic Metabolic Panel; Complete Time: 19:00 kb 06/26 18:20 Order name: Acetone, Serum; Complete Time: 19:00 kb 06/26 18:50 Order name: Glucose, Ancillary Testing; Complete Time: 18:52 EDMS 06/26 17:45 Order name: Urine Dipstick-Ancillary (obtain specimen); Complete Time: 18:27 kb 06/26 17:45 Order name: Chest Single View XRAY; Complete Time: 18:38 kb 06/26 18:20 Order name: IV Start; Complete Time: 18:27 kb Administered Medications: 18:31 Drug: NS 0.9% 1000 ml Route: IV; Rate: 1000 ml; Site: left antecubital; zb 19:37 Follow up: Response: No adverse reaction; IV Status: Completed infusion; IV Intake: zb 1000ml 19:36 Drug: Insulin Regular Human 5 units {Co-Signature: jd3 (Martinez Harris RN).} Route: zb IVP; Site: left antecubital; 20:09 Follow up: Response: Blood sugar is lowered jd3 Disposition: 06/26/20 19:02 Discharged to Home. Impression: Hyperglycemia, unspecified, Myalgia - right upper back. - Condition is Stable. - Discharge Instructions: Musculoskeletal Pain, Hyperglycemia, [id number]. - Medication Reconciliation Form, Thank You Letter, Antibiotic Education, Prescription Opioid Use form. - Follow up: Emergency Department; When: As needed; Reason: Worsening of condition. Follow up: Private Physician; When: 2 - 3 days; Reason: Recheck today's complaints, Continuance of care, Re-evaluation by your physician. Addendum: 07/01/2020 21:03 Co-signature as Attending Physician, Sameer Altamirano MD Did not see or evaluate patient. p s1 Signature for administrative purposes. . Signatures: Dispatcher [employer] EDLo Armstrong, BRIDGER BRENNER-Martinez Bojorquez RN RN jd3 Singer, Phillip, MD MD ps1 Elisha Pendleton RN RN ca1 Brown, Zipporah, RN RN zb Martinez Harris RN jquincy Corrections: (The following items were deleted from the chart) 06/26 19:03 19:02 06/26/2020 19:02 Discharged to Home. Impression: Hyperglycemia, unspecified. kb Condition is Stable. Forms are Medication Reconciliation Form, Thank You Letter, Antibiotic Education, Prescription Opioid Use. Follow up: Emergency Department; When: As needed; Reason: Worsening of condition. Follow up: Private Physician; When: 2 - 3 days; Reason: Recheck today's complaints, Continuance of care, Re-evaluation by your physician. kb 20:20 19:03 06/26/2020 19:02 Discharged to Home. Impression: Hyperglycemia, unspecified; jd3 Myalgia - right upper back. Condition is Stable. Discharge Instructions: Hyperglycemia, [id number]. Forms are Medication Reconciliation Form, Thank You Letter, Antibiotic Education, Prescription Opioid Use. Follow up: Emergency Department; When: As needed; Reason: Worsening of condition. Follow up: Private Physician; When: 2 - 3 days; Reason: Recheck today's complaints, Continuance of care, Re-evaluation by your physician. kb
--- NOTE | 2020-06-26 19:03 | ER ---
Nurse's Notes [facility] Name: Salome Santacruz Age: 20 yrs Sex: Female : 2000 Arrival Date: 06/26/2020 Time: 17:37 Bed 16 Private MD: Diagnosis: Hyperglycemia, unspecified;Myalgia-right upper back Presentation: 06/26 17:40 Chief complaint: Patient states: I've been having R back pain, from my kidney area to ca1 the upper R side of the back x 4 days. It hurts to breathe, to cough, to move. Pt is 18 wks. Was at the doctor yesterday, had a urine test done and they said it was okay, but said if the rib pain persists, to come to the ER. Reports N/V x 2 episodes today. Coronavirus screen: Client denies travel out of the [place] in the last 14 days. nausea, vomiting. Client presents with at least one sign or symptom that may indicate coronavirus-19. Standard/surgical mask placed on the client. Provider contacted for isolation considerations. The client reports previous COVID testing was negative. Date of collection: May 2020. Ebola Screen: Patient negative for fever greater than or equal to 101.5 degrees Fahrenheit, and additional compatible Ebola Virus Disease symptoms Patient denies exposure to infectious person. Patient denies travel to an Ebola-affected area in the 21 days before illness onset. No symptoms or risks identified at this time. Initial Sepsis Screen: Does the patient meet any 2 criteria? No. Patient's initial sepsis screen is negative. Does the patient have a suspected source of infection? No. Patient's initial sepsis screen is negative. Risk Assessment: Do you want to hurt yourself or someone else? Patient reports no desire to harm self or others. Onset of symptoms was June 26, 2020. 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 - Social history:: Smoking status: unknown. Screenin:33 Abuse screen: Denies threats or abuse. Denies injuries from another. Nutritional zb screening: No deficits noted. Tuberculosis screening: No symptoms or risk factors identified. Fall Risk None identified. Assessment: 18:31 General: Appears in no apparent distress. uncomfortable, Behavior is calm, cooperative, zb appropriate for age. Pain: Complains of pain in right flank Pain currently is 10 out of 10 on a pain scale. Quality of pain is described as aching, sharp, Pain began 2-3 days ago. Alleviated by nothing. Aggravated by repositioning. Neuro: Level of Consciousness is awake, alert, obeys commands, Oriented to person, place, time, situation. Cardiovascular: Capillary refill < 3 seconds in bilateral fingers. Respiratory: Airway is patent Respiratory effort is even, unlabored. GI: Abdomen is round non-distended, Reports nausea. : No signs and/or symptoms were reported regarding the genitourinary system. EENT: No signs and/or symptoms were reported regarding the EENT system. Derm: Skin is intact, is healthy with good turgor, Skin is normal. Musculoskeletal: Circulation, motion, and sensation intact. Range of motion: intact in all extremities. 19:46 Reassessment: Patient appears in no apparent distress at this time. Patient and/or zb family updated on plan of care and expected duration. Pain level reassessed. Patient is alert, oriented x 3, equal unlabored respirations, skin warm/dry/pink. discharge pending glucose check. 20:01 Reassessment: Patient appears in no apparent distress at this time. Patient and/or jd3 family updated on plan of care and expected duration. Pain level reassessed. Patient is alert, oriented x 3, equal unlabored respirations, skin warm/dry/pink. Vital Signs: 17:40 BP 118 / 76; Pulse 84; Resp 16 S; Temp 97.6(TE); Pulse Ox 100% on R/A; Weight 65.77 kg ca1 (R); Height 5 ft. 4 in. (162.56 cm) (R); Pain 10/10; 18:45 BP 116 / 71; Pulse 90; Resp 17; Pulse Ox 100% on R/A; tw2 20:01 BP 108 / 66; Pulse 89; Resp 17 S; Pulse Ox 100% on R/A; jd3 17:40 Body Mass Index 24.89 (65.77 kg, 162.56 cm) ca1 ED Course: 17:37 Patient arrived in ED. as 17:38 Lo Alcaraz FNP-C [facility]. kb 17:38 Sameer Altamirano MD is Attending Physician. kb 17:43 Triage completed. ca1 17:46 Arm band placed on right wrist. ca1 17:54 Allyn Marshall, VI is Primary Nurse. zb 18:17 Chest Single View XRAY In Process Unspecified. EDMS 18:28 Inserted saline lock: 20 gauge in left antecubital area, using aseptic technique. Blood zb collected. placed by Omate. 18:34 Patient has correct armband on for positive identification. Bed in low position. Call zb light in reach. Side rails up X 1. Pulse ox on. NIBP on. Door closed. Noise minimized. Warm blanket given. 20:12 No provider procedures requiring assistance completed. IV discontinued, intact, jd3 bleeding controlled, No redness/swelling at site. Pressure dressing applied. Administered Medications: 18:31 Drug: NS 0.9% 1000 ml Route: IV; Rate: 1000 ml; Site: left antecubital; zb 19:37 Follow up: Response: No adverse reaction; IV Status: Completed infusion; IV Intake: zb 1000ml 19:36 Drug: Insulin Regular Human 5 units {Co-Signature: anu (Martinez Harris RN).} Route: zb IVP; Site: left antecubital; 20:09 Follow up: Response: Blood sugar is lowered jd3 Intake: 19:37 IV: 1000ml; Total: 1000ml. zb Outcome: 19:02 Discharge ordered by . kb 20:13 Discharged to home ambulatory, with family. jd3 20:13 Condition: stable 20:13 Discharge instructions given to patient, family, Instructed on discharge instructions, follow up and referral plans. Demonstrated understanding of instructions, follow-up care. 20:20 Patient left the ED. jd3 Signatures: Dispatcher [employer] EDLo Armstrong, CLUTCH SPECIALIST-C CLUTCH SPECIALIST-Anupama Turner Tara RN RN tw2 Martinez Harris RN RN jd3 Elisha Pendleton RN RN ca1 Brown, Zipporah, RN RN zb Martinez Harris RN jd3 Corrections: (The following items were deleted from the chart) 18:34 18:31 GI: Abdomen is round non-distended, lacy house
[2020-06-26 19:25] LABS: Urine Blood TRACE (NEG); Urine Glucose 2+ (NEG); Urine Protein NEGATIVE (NEG); Urine Specific Gravity 1.015 (1.005-1.030)
[2020-06-26] MEDS ORDERED: INSULIN -REGULAR HUMAN 50 UNIT/0.5 ML ML ONE (19:45)
[2020-06-26 19:53] LABS: Urine Bacteria <20 /HPF (<20); Urine Culture Reflex Order NOT NEEDED; Urine RBC <5 /HPF (NONE SEEN)
[2020-06-27 03:16] VITALS: TEMP 97.6; O2SAT 100
[2020-06-27 03:22] VITALS: BP 108/66
== END 2020-06-26 20:20 | disposition home or self-care (01) ==
LOC: ER 17:35
DX: O24.912 Unspecified diabetes mellitus in pregnancy, second trimester (principal); O26.892 Other specified pregnancy related conditions, second trimester; O99.342 Other mental disorders complicating pregnancy, second trimester; F41.8 Other specified anxiety disorders; Z3A.18 18 weeks gestation of pregnancy; Z79.82 Long term (current) use of aspirin; Z79.4 Long term (current) use of insulin; Z88.5 Allergy status to narcotic agent; Z88.6 Allergy status to analgesic agent; Z91.018 Allergy to other foods; Z91.040 Latex allergy status; Z91.048 Other nonmedicinal substance allergy status
CPT/HCPCS: 96361; 85025; 80048; 36415; 82010; 82947 ×2; 71045; 96374; 99284; J7030; 81003; 81015

== ENCOUNTER 2020-11-23 03:58 | Emergency (ER) | payer OTHER ==
--- OUTSIDE RECORDS SUMMARY | 2020-11-23 04:04 | XMS REPORT | Continuity of Care Document ---
:2000 Author Organization [facility] t Address [address] [place] [address] Care Team Providers Name Role Phone Inga DAVIS, A Primary Care Physician Unavailable Kathrine Blas Attending Clinician TRINITY CRAWLEY Attending Clinician Unavailable STANISLAW HODGES Attending Clinician Unavailable TRENTON CHACON Attending Clinician Unavailable LEOBARDO HANSEN Admitting Clinician Unavailable OJRGE LUIS SAM Admitting Clinician Unavailable TRENTON CHACON [...] 1 [facility]05 [facility] 00 [facility] Nausea Nausea Disease Active [facility] [...] [facility] - adverse 00:00: Medical reaction 00 [facility] s Latex Propensi Active Rash [facility]-07 [facility] - adverse 00:00: Medical reaction 00 [facility] s Acetamin Propensi Active Rash Bumps in [facility] ophen-Pa ty to 04-07 mouth [facility] - [facility]rom adverse 00:00: Medical reaction 00 [facility]sk s Prometha Propensi Active Anxiety Severe [facility] ty to 04-07 anxiety [facility] - adverse 00:00: attacks Medical reaction 00 Usk s Social History Social Habit Start Date Stop Date Quantity Comments Source Sex Assigned At [facility] Tobacco use and 2017-06-17 2017-06-17 Never used [facility] - exposure 00:00:00 00:00:00 [facility] Alcohol intake 2017-06-17 2017-06-17 Current [facility] es - 00:00:00 00:00:00 non-drinker of Medical nter alcohol (finding) History of 2016-06-18 Smoker [facility] - tobacco use [facility] Smoking Status Start Date Stop Date Source Former smoker 2017-06-17 00:00:00 2017-06-17 00:00:00 [facility] Medications Ordered Filled Start Stop Current Ordering Indication Dosage Frequency Signature Comments Components Source Medication Medication Date Date Medication? Clinician (SIG) Name Name medroxyPROG 2016-08 Yes 150mg Inject 150 [facility] ESTERone -17 contracepti mg Luke [facility] - [...] InPn insulin Yes If [facility] regular 9-07 UA=130-772 [facility] - (HUMULIN 00:00: , give Medical R,NOVOLIN 00 1unitIf Center R) 100 QA=841-006 unit/mL , give injection 2unitsIf TT=764-992 , give 4unitsIf YE=228-790 , give 6unitsIf GW=572-532 , give 8units. Immunizations Ordered Immunization Filled Immunization Date Status Commen ts Source Name Name Influenza Three-TIV 2017-05-18 [facility] Procedures This patient has no known procedures. 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 [id number] [facility] [id number] MATERNAL [id number] & CHILD [address] [place] [address] Results Test Description Test Time Test Comments Results Result Comments Source US PELVIC 2018-03-16 CLINICAL (TRANSVAGINAL ONLY) 14:02:32 INDICATION: R10.2 Pelvic and perineal painTECHNIQUE:Real- time and doppler transvaginal ultrasound evaluation of the pelvis was performed on the [employer] Preirus.Comparison study: No prior study.FINDINGS:Uter us: 8.2 [...] Reference Range Interpretation Comme nts POC-GLUCOSE METER (BEAKER) (test 230 mg/dL 70-110 H TESTED AT [facility] [address] [facility] code = 1538) [facility] [place] [address] POCT-GLUCOSE [id number] 08:32:00 Test Item Value Reference Range Interpretation Comments POC-GLUCOSE METER 70 mg/dL 70-110 TESTED AT [facility] [address] [facility] (test code = [facility] 1538) [place] [address] POCT-GLUCOSE [id number] 05:13:00 Test Item Value Reference Range Interpretation Comments POC-GLUCOSE METER 152 mg/dL 70-110 H TESTED AT [facility] [address] [facility] (test code [facility] = 1538) [place] [address] POCT-GLUCOSE [id number] 04:14:00 Test Item Value Reference Range Interpretation Comments POC-GLUCOSE METER 55 mg/dL 70-[address] [place] [address] [address] (BEAKER) (test code = [facility] 1538[facility] [place] [address] POCT-GLUCOSE [id number] 20:37:00 Test Item Value Reference Range Interpretation Comments POC-GLUCOSE METER 204 mg/dL 70-110 H TESTED AT [facility] [address] (BEAKER) (test code [facility] = 1538) [place] [address] POCT-GLUCOSE [id number] 19:01:00 Test Item Value Reference Range Interpretation Comments POC-GLUCOSE METER 88 mg/dL 70-110 TESTED AT [facility] [address] (BEAKER) (test code = [facility] 1538) [place] [address] POCT-GLUCOSE [id number] 17:27:00 Test Item Value Reference Range Interpretation Comments POC-GLUCOSE METER 253 mg/dL 70-110 H TESTED AT [facility] [address] (BEAKER) (test code [facility] = 1538) [place] [address] POCT-GLUCOSE [id number] 15:36:00 Test Item Value Reference Range Interpretation Comments POC-GLUCOSE METER 366 mg/dL 70-110 H TESTED AT [facility] [address] (BEAKER) (test code [facility] = 1538) [place] [address] POCT-GLUCOSE [id number] 11:51:00 Test Item Value Reference Range Interpretation Comments POC-GLUCOSE METER 194 mg/dL 70-110 H TESTED AT [facility] [address] (BEAKER) (test code [facility] = 1538) [place] [address] POCT-GLUCOSE [id number] 10:19:00 Test Item Value Reference Range Interpretation Comments POC-GLUCOSE METER 147 mg/dL 70-110 H TESTED AT [facility] [address] (BEAKER) (test code [facility] = 1538) [place] [address] BASIC METABOLIC [id number] 09:23:00 Test Item Value Reference Range Interpretation [...] NOT APPLICABLE FOR DIALYSIS PATIEN TS. POCT-GLUCOSE [id number] 08:02:00 Test Item Value Reference Range Interpretation Comments POC-GLUCOSE METER 161 mg/dL 70-110 H TESTED AT [facility] [address] (BEAKER) (test code [facility] = 1538) [place] [address] POCT-GLUCOSE [id number] 07:03:00 Test Item Value Reference Range Interpretation Comments POC-GLUCOSE METER 151 mg/dL 70-[address] [place] [address] [address] (BEAKER) (test code [facility] = 1538) [place] [address] POCT-GLUCOSE [id number] 05:08:00 Test Item Value Reference Range Interpretation Comments POC-GLUCOSE METER 158 mg/dL 70-110 H TESTED AT [facility] [address] (BEAKER) (test code [facility] = 1538) [place] [address] BASIC METABOLIC [id number] 04:51:00 Test Item Value Reference Range Interpretation [...] NOT APPLICABLE FOR DIALYSIS PATIEN TS. POCT-GLUCOSE [id number] 03:03:00 Test Item Value Reference Range Interpretation Comments POC-GLUCOSE METER 153 mg/dL 70-110 H TESTED AT [facility] [address] (BEAKER) (test code [facility] = 1538) [place] [address] POCT-GLUCOSE [id number] 02:09:00 Test Item Value Reference Range Interpretation Comments POC-GLUCOSE METER 159 mg/dL 70-110 H TESTED AT [facility] [address] (BEAKER) (test code [facility] = 1538) [place] [address] POCT-GLUCOSE [id number] 01:08:00 Test Item Value Reference Range Interpretation Comments POC-GLUCOSE METER 174 mg/dL 70-110 H TESTED AT [facility] [address] (BEAKER) (test code [facility] = 1538) [place] [address] BASIC METABOLIC [id number] 00:38:00 Test Item Value Reference Range Interpretation [...] NOT APPLICABLE FOR DIALYSIS PATIEN TS. POCT-GLUCOSE [id number] 00:37:00 Test Item Value Reference Range Interpretation Comments POC-GLUCOSE METER 198 mg/dL 70-[address] [place] [address] [address] [facility] (test code [facility] = 1538) [place] [address] POCT-GLUCOSE [id number] 00:14:00 Test Item Value Reference Range Interpretation Comments POC-GLUCOSE METER 162 mg/dL 70-[address] [place] [address] [address] [facility] (test code [facility] = 1538) [place] [address] POCT-GLUCOSE [id number] 23:39:00 Test Item Value Reference Range Interpretation Comments POC-GLUCOSE METER 149 mg/dL 70-110 H TESTED AT [facility] [address] [facility] (test code [facility] = 1538) [place] [address] POCT-GLUCOSE [id number] 23:10:00 Test Item Value Reference Range Interpretation Comments POC-GLUCOSE METER 134 mg/dL 70-110 H TESTED AT [facility] [address] ([facility] (test code [facility] = 1538) [place] [address] POCT-GLUCOSE [id number] 22:41:00 Test Item Value Reference Range Interpretation Comments POC-GLUCOSE METER 112 mg/dL 70-110 H TESTED AT [facility] [address] ([facility] (test code [facility] = 1538) [place] [address] POCT-GLUCOSE [id number] 21:59:00 Test Item Value Reference Range Interpretation Comments POC-GLUCOSE METER 95 mg/dL 70-110 TESTED AT [facility] [address] ([facility]) (test code = [facility] 1538) [place] [address] POCT-GLUCOSE [id number] 21:39:00 Test Item Value Reference Range Interpretation Comments POC-GLUCOSE METER 110 mg/dL 70-[address] [place] [address] [address] (BEAKER) (test code [facility] = 1538) [place] [address] POCT-GLUCOSE [id number] 21:07:00 Test Item Value Reference Range Interpretation Comments POC-GLUCOSE METER 114 mg/dL 70-110 H TESTED AT [facility] [address] (BEAKER) (test code [facility] = 1538) [place] [address] BASIC METABOLIC [id number] 20:47:00 Test Item Value Reference Range Interpretation [...] NOT APPLICABLE FOR DIALYSIS PATIEN TS. POCT-GLUCOSE [id number] 20:17:00 Test Item Value Reference Range Interpretation Comments POC-GLUCOSE METER 176 mg/dL 70-110 H TESTED AT [facility] [address] (BEAKER) (test code [facility] = 1538) [place] [address] [id number] 19:09:00 Test Item Value Reference Range Interpretation Comments GLUCOSE RANDOM (BEAKER) (test code 230 mg/dL 70-110 H = 652) If last glucose was less than 500, may do bedside glucose instead of serum glucose.POCT-GLUCOSE [id number] 18:53:00 Test Item Value Reference Range Interpretation Comments POC-GLUCOSE METER 212 mg/dL 70-110 H TESTED AT [facility] [address] (BEAKER) (test code [facility] = 1538) [place] [address] POCT-GLUCOSE [id number] 17:14:00 Test Item Value Reference Range Interpretation Comments POC-GLUCOSE METER 145 mg/dL 70-110 H TESTED AT [facility] [address] (BEAKER) (test code [facility] = 1538) [place] [address] BASIC METABOLIC [id number] 16:51:00 Test Item Value Reference Range Interpretation [...] may do bedside glucose instead of serum glucose.[id number] 16:47:00 Test Item Value Reference Range Interpretation Comments GLUCOSE RANDOM (BEAKER) (test code 126 mg/dL 70-110 H = 652) If last glucose was less than 500, may do bedside glucose instead of serum glucose.POCT-GLUCOSE [id number] 16:04:00 Test Item Value Reference Range Interpretation Comments POC-GLUCOSE METER 119 mg/dL 70-110 H TESTED AT [facility] [address] (BEAKER) (test code [facility] = 1538) [place] [address] [id number] 14:30:00 Test Item Value Reference Range Interpretation Comments POTASSIUM (BEAKER) (test code = 3.9 meq/L 3.5-5.5 379) If last glucose was less than 500, may do bedside glucose instead of serum glucose.[id number] 14:30:00 Test Item Value Reference Range Interpretation Comments GLUCOSE RANDOM (BEAKER) (test code 190 mg/dL 70-110 H = 652) If last glucose was less than 500, may do bedside glucose instead of serum glucose.POCT-GLUCOSE [id number] 14:05:00 Test Item Value Reference Range Interpretation Comments POC-GLUCOSE METER 194 mg/dL 70-110 H TESTED AT [facility] [address] (BEAKER) (test code [facility] = 1538) [place] [address] POCT-GLUCOSE [id number] 13:15:00 Test Item Value Reference Range Interpretation Comments POC-GLUCOSE METER 229 mg/dL 70-110 H TESTED AT [facility] [address] (BEAKER) (test code [facility] = 1538) [place] [address] BASIC METABOLIC [id number] 12:44:00 Test Item Value Reference Range Interpretation [...] may do bedside glucose instead of serum glucose.[id number] 12:43:00 Test Item Value Reference Range Interpretation Comments GLUCOSE RANDOM (BEAKER) (test code 258 mg/dL 70-110 H = 652) If last glucose was less than 500, may do bedside glucose instead of serum glucose.POCT-GLUCOSE [id number] 12:03:00 Test Item Value Reference Range Interpretation Comments POC-GLUCOSE METER 238 mg/dL 70-110 H TESTED AT [facility] [address] ([facility]) (test code [facility] = 1538) [place] [address] POCT-GLUCOSE [id number] 11:05:00 Test Item Value Reference Range Interpretation Comments POC-GLUCOSE METER 261 mg/dL 70-110 H TESTED AT [facility] [address] ([facility]) (test code [facility] = 1538) [place] [address] HEMOGLOBIN [id number] 10:07:00 Test Item Value Reference Range Interpretation Comments HEMOGLOBIN A1C (BEAKER) (test code = > % 4.3-6.1 H 368) [id number] 10:00:00 Test Item Value Reference Range Interpretation Comments GLUCOSE RANDOM (BEAKER) (test code 441 mg/dL 70-110 HH = 652) If last glucose was less than 500, may do bedside glucose instead of serum glucose.[id number] 09:55:00 Test Item Value Reference Range Interpretation Comments POTASSIUM (BEAKER) (test code = 4.1 meq/L 3.5-5.5 379) If last glucose was less than 500, may do bedside glucose instead of serum glucose.POCT-GLUCOSE [id number] 09:18:00 Test Item Value Reference Range Interpretation Comments POC-GLUCOSE METER > mg/dL 70-110 HH [facility] (test code RANGETES PRACHI AT [facility] [address] = 1538) [facility] [address] [id number] 09:15:00 Test Item Value Reference Range Interpretation Comments GLUCOSE RANDOM (BEAKER) (test code 585 mg/dL 70-110 HH = 652) If last glucose was less than 500, may do bedside glucose instead of serum glucose.COMPREHENSIVE METABOLIC [id number] 08:30:00 Test Item Value Reference Range Interpretation [...] PATIEN TS. CBC W/PLT COUNT & AUTO [id number] 08:29:00 Test Item Value Reference Range Interpretation [...] K/ L 0.00-0.20 (test code = 417) [id number] 08:25:00 Test Item Value Reference Range Interpretation Comments PHOSPHORUS (BEAKER) (test code = 4.0 mg/dL 2.5-4.5 604) [id number] 08:25:00 Test Item Value Reference Range Interpretation Comments MAGNESIUM (BEAKER) (test code = 2.0 mg/dL 1.5-3.0 627) SCREEN, [id number] 08:16:00 Test Item Value Reference Range Interpretation Comments TEST URINE (BEAKER) (test Negative code = 583) URINALYSIS W/ [id number] 08:16:00 Test Item Value Reference Range Interpretation [...] Rare SOURCE(BEAKER) (test code = 2795) KETONE, [id number] 08:09:00 Test Item Value Reference Range Interpretation Comments KETONES, BLOOD (BEAKER) (test code 6.1 mmol/L <0.4 H = 1103) PH, [id number] 08:08:00 Test Item Value Reference Range Interpretation Comments PH VENOUS (BEAKER) (test code = 701) 7.18 7.32-7.42 LL BLOOD [id number] 13:00:00 Test Item Value Reference Range Interpretation Comments CULTURE (BEAKER) (test No growth in 5 days code = 1095) BLOOD [id number] 13:00:00 Test Item Value Reference Range Interpretation Comments CULTURE (BEAKER) (test No growth in 5 days code = 1095) POCT-GLUCOSE [id number] 17:12:00 Test Item Value Reference Range Interpretation Comments POC-GLUCOSE METER 136 mg/dL 70-110 H TESTED AT [facility] [address] (BEAKER) ([facility] 1538) [place] [address] POCT-GLUCOSE [id number] 16:37:00 Test Item Value Reference Range Interpretation Comments POC-GLUCOSE METER 45 mg/dL 70-110 L TESTED AT [facility] [address] (BEAKER) (test code = [facility] 1538) [place] [address] POCT-GLUCOSE [id number] 11:32:00 Test Item Value Reference Range Interpretation Comments POC-GLUCOSE METER 98 mg/dL 70-110 TESTED AT [facility] [address] (BEAKER) (test code = [facility] 1538) [place] [address] POCT-GLUCOSE [id number] 06:45:00 Test Item Value Reference Range Interpretation Comments POC-GLUCOSE METER 85 mg/dL 70-110 TESTED AT [facility] [address] (BEAKER) (test code = [facility] 1538) [place] [address] [id number] 06:25:00 Test Item Value Reference Range Interpretation Comments PHOSPHORUS (BEAKER) (test code = 2.4 mg/dL 2.5-4.5 L 604) [id number] 06:25:00 Test Item Value Reference Range Interpretation Comments MAGNESIUM (BEAKER) (test code = 2.4 mg/dL 1.5-3.0 627) BASIC METABOLIC [id number] 06:25:00 Test Item Value Reference Range Interpretation [...] PATIEN TS. CBC W/PLT COUNT & AUTO [id number] 05:58:00 Test Item Value Reference Range Interpretation [...] L 0.00-0.20 (test code = 417) POCT-GLUCOSE [id number] 05:38:00 Test Item Value Reference Range Interpretation Comments POC-GLUCOSE METER 102 mg/dL 70-110 TESTED AT [facility] [address] (BEAKER) (test code [facility] = 1538) [place] [address] POCT-GLUCOSE [id number] 03:29:00 Test Item Value Reference Range Interpretation Comments POC-GLUCOSE METER 163 mg/dL 70-110 H TESTED AT [facility] [address] (BEAKER) (test code [facility] = 1538) [place] [address] POCT-GLUCOSE [id number] 03:29:00 Test Item Value Reference Range Interpretation Comments POC-GLUCOSE METER 155 mg/dL 70-110 H TESTED AT [facility] [address] (BEAKER) (test code [facility] = 1538) [place] [address] BASIC METABOLIC [id number] 01:42:00 Test Item Value Reference Range Interpretation [...] S NOT APPLICABLE FOR DIALYSIS PATIEN TS. [id number] 01:39:00 Test Item Value Reference Range Interpretation Comments PHOSPHORUS (BEAKER) (test code = 2.1 mg/dL 2.5-4.5 L 604) [id number] 01:39:00 Test Item Value Reference Range Interpretation Comments MAGNESIUM (BEAKER) (test code = 2.0 mg/dL 1.5-3.0 627) POCT-GLUCOSE [id number] 01:19:00 Test Item Value Reference Range Interpretation Comments POC-GLUCOSE METER 152 mg/dL 70-110 H TESTED AT [facility] [address] (BEAKER) (test code [facility] = 1538) [place] [address] POCT-GLUCOSE [id number] 01:07:00 Test Item Value Reference Range Interpretation Comments POC-GLUCOSE METER 145 mg/dL 70-110 H TESTED AT [facility] [address] (BEAKER) (test code [facility] = 1538) [place] [address] POCT-GLUCOSE [id number] 01:07:00 Test Item Value Reference Range Interpretation Comments POC-GLUCOSE METER 165 mg/dL 70-110 H TESTED AT [facility] [address] (BEAKER) (test code [facility] = 1538) [place] [address] POCT-GLUCOSE [id number] 01:07:00 Test Item Value Reference Range Interpretation Comments POC-GLUCOSE METER 163 mg/dL 70-110 H TESTED AT [facility] [address] (BEAKER) (test code [facility] = 1538) [place] [address] BASIC METABOLIC [id number] 20:59:00 Test Item Value Reference Range Interpretation [...] S NOT APPLICABLE FOR DIALYSIS PATIEN TS. [id number] 20:58:00 Test Item Value Reference Range Interpretation Comments MAGNESIUM (BEAKER) 1.8 mg/dL 1.5-3.0 Specimen slightly (test code = 627) hemolyzed [id number] 20:58:00 Test Item Value Reference Range Interpretation Comments PHOSPHORUS (BEAKER) 2.2 mg/dL 2.5-4.5 L Specimen slightly (test code = 604) hemolyzed POCT-GLUCOSE [id number] 18:02:00 Test Item Value Reference Range Interpretation Comments POC-GLUCOSE METER 176 mg/dL 70-110 H TESTED AT [facility] [address] (BEAKER) (test code [facility] = 1538) [place] [address] [id number] 16:46:00 Test Item Value Reference Range Interpretation Comments MAGNESIUM (BEAKER) 2.1 mg/dL 1.5-3.0 Specimen slightly (test code = 627) hemolyzed [id number] 16:46:00 Test Item Value Reference Range Interpretation Comments PHOSPHORUS (BEAKER) 2.1 mg/dL 2.5-4.5 L Specimen slightly (test code = 604) hemolyzed BASIC METABOLIC [id number] 16:46:00 Test Item Value Reference Range Interpretation [...] 697) EGFR (BEAKER) (test 94 mL/min/1.73 ESTIMA PRCAHI GFR IS code = 1092) sq m NOT ACCURATE CREATININE CLEARANCE IN PREDICTING GLOMERULAR FILTRATION RATE . ESTIMATED GFR I S NOT APPLICABLE FOR DIALYSIS PATIEN TS. CALCIUM, [id number] 16:21:00 Test Item Value Reference Range Interpretation Comments CALCIUM IONIZED (BEAKER) (test 1.13 mmol/L 1.12-1.27 code = 698) PH, BLOOD (BEAKER) (test code = 7.30 1810) Check serum Ionized Calcium level after 4 hours after IV Calcium replacement. POCT-GLUCOSE [id number] 16:12:00 Test Item Value Reference Range Interpretation Comments POC-GLUCOSE METER 191 mg/dL 70-110 H TESTED AT [facility] [address] (BEAKER) (test code [facility] = 1538) [place] [address] POCT-GLUCOSE [id number] 15:20:00 Test Item Value Reference Range Interpretation Comments POC-GLUCOSE METER 181 mg/dL 70-110 H TESTED AT [facility] [address] (BEAKER) (test code [facility] = 1538) [place] [address] POCT-GLUCOSE [id number] 14:15:00 Test Item Value Reference Range Interpretation Comments POC-GLUCOSE METER 169 mg/dL 70-110 H TESTED AT [facility] [address] (BEAKER) (test code [facility] = 1538) [place] [address] BASIC METABOLIC [id number] 13:44:00 Test Item Value Reference Range Interpretation [...] NOT APPLICABLE FOR DIALYSIS PATIEN TS. POCT-GLUCOSE [id number] 13:24:00 Test Item Value Reference Range Interpretation Comments POC-GLUCOSE METER 157 mg/dL 70-110 H TESTED AT [facility] [address] (BEAKER) (test code [facility] = 1538) [place] [address] POCT-GLUCOSE [id number] 12:34:00 Test Item Value Reference Range Interpretation Comments POC-GLUCOSE METER 131 mg/dL 70-110 H TESTED AT [facility] [address] (BEAKER) (test code [facility] = 1538) [place] [address] POCT-GLUCOSE [id number] 11:39:00 Test Item Value Reference Range Interpretation Comments POC-GLUCOSE METER 160 mg/dL 70-110 H TESTED AT [facility] [address] (BEAKER) (test code [facility] = 1538) [place] [address] [id number] 11:13:00 Test Item Value Reference Range Interpretation Comments PROCALCITONIN (BEAKER) (test code = < ng/mL <0.05 3036) SEPSIS RISK (ng/mL)Low: 0.05-0.50Intermediate: 0.51-2.00High: >=2.01POCT-GLUCOSE [id number] 10:40:00 Test Item Value Reference Range Interpretation Comments POC-GLUCOSE METER 202 mg/dL 70-110 H TESTED AT [facility] [address] (BEAKER) (test code [facility] = 1538) [place] [address] [id number] 10:04:00 Test Item Value Reference Range Interpretation Comments PHOSPHORUS (BEAKER) 1.4 mg/dL 2.5-4.5 LL Specimen slightly (test code = 604) hemolyzed BASIC METABOLIC [id number] 10:04:00 Test Item Value Reference Range Interpretation [...] hemolyzed GLUCOSE RANDOM 224 mg/dL 70-110 H ([facility]) (test code = 652) CALCIUM (BEAKER) 7.9 mg/dL 8.5-10.5 L (test code = 697) EGFR (BEAKER) (test 83 mL/min/1.73 ESTIMA PRACHI GFR IS code = 1092) sq m NOT ACCURATE CREATININE CLEARANCE IN PREDICTING GLOMERULAR FILTRATION RATE . ESTIMATED GFR I S NOT APPLICABLE FOR DIALYSIS PATIEN TS. [id number] 10:02:00 Test Item Value Reference Range Interpretation Comments MAGNESIUM (BEAKER) 1.8 mg/dL 1.5-3.0 Specimen slightly (test code = 627) hemolyzed POCT-GLUCOSE [id number] 09:36:00 Test Item Value Reference Range Interpretation Comments POC-GLUCOSE METER 212 mg/dL 70-110 H TESTED AT [facility] [address] ([facility]) (test code [facility] = 1538) [place] [address] POCT-GLUCOSE [id number] 08:43:00 Test Item Value Reference Range Interpretation Comments POC-GLUCOSE METER 268 mg/dL 70-110 H TESTED AT [facility] [address] ([facility]) (test code [facility] = 1538) [place] [address] [id number] 07:47:00 Test Item Value Reference Range Interpretation Comments POTASSIUM (BEAKER) (test code = 4.0 meq/L 3.5-5.5 379) If last glucose was less than 500, may do bedside glucose instead of serum glucose.[id number] 07:47:00 Test Item Value Reference Range Interpretation Comments GLUCOSE RANDOM ([facility]) (test code 370 mg/dL 70-110 H = 652) If last glucose was less than 500, may do bedside glucose instead of serum glucose.POCT-GLUCOSE [id number] 07:31:00 Test Item Value Reference Range Interpretation Comments POC-GLUCOSE METER 328 mg/dL 70-110 H Notified R Evita DAVIS/TESTED AT ([facility]) (test code [facility] [address] [facility] [address] = 1538) [facility] [place] [address] POCT-GLUCOSE [id number] 07:31:00 Test Item Value Reference Range Interpretation Comments POC-GLUCOSE METER 414 mg/dL 70-110 HH TESTED AT [facility] [address] (BEAKER) (test code [facility] = 1538) [place] [address] [id number] 06:57:00 Test Item Value Reference Range Interpretation Comments POTASSIUM (BEAKER) (test code = 4.5 meq/L 3.5-5.5 379) [id number] 06:51:00 Test Item Value Reference Range Interpretation Comments GLUCOSE RANDOM (BEAKER) (test code 523 mg/dL 70-110 HH = 652) If last glucose was less than 500, may do bedside glucose instead of serum glucose.URINALYSIS W/ REFLEX URINE [id number] 06:29:00 Test Item Value Reference Range Interpretation [...] (test code = 2795) RAPID INFLUENZA A&B [id number] 06:13:00 Test Item Value Reference Range Interpretation Comments RAPID INFLUENZA A AG (BEAKER) (test Negative Negative code = 1622) RAPID INFLUENZA B AG (BEAKER) (test Negative Negative code = 1623) SCREEN, [id number] 05:58:00 Test Item Value Reference Range Interpretation Comments TEST URINE (BEAKER) (test Negative code = 583) RAD, CHEST, 1 VIEW, NON [id number] 05:52:00Reason for exam:->EMESISReason for exam:->BLOOD SUGAR PROBLEMShould this be performed at the bedside?- >YesIs the patient ?->NoFINAL REPORT Comparison examination: 04/07/2017 No pneumothorax, focal pulmonary consolidation, or significant pleural effusion. Normal cardiomediastinal contours. Normal skeleton and soft tissues. Impression: No acute abnormality. Signed: Joesph Foy Verified Date/Time: 05/18/2017 05:52:18 Reading Location: [address] Transitional Reading Room HEMOGLOBIN [id number] 05:49:00 Test Item Value Reference Range Interpretation Comments HEMOGLOBIN A1C (BEAKER) (test code = 13.2 % 4.3-6.1 H 368) BASIC METABOLIC [id number] 05:28:00 Test Item Value Reference Range Interpretation [...] bedside glucose instead of serum glucose.HEPATIC FUNCTION [id number] 05:27:00 Test Item Value Reference Range Interpretation [...] glucose instead of serum glucose.Specimen slightlylipemicBLOOD GAS, [id number] 05:04:00 Test Item Value Reference Range Interpretation [...] (test code = 1819) 21.0 % KETONE, [id number] 05:03:00 Test Item Value Reference Range Interpretation Comments KETONES, BLOOD (BEAKER) (test code 5.8 mmol/L <0.4 H = 1103) CBC W/PLT COUNT & AUTO [id number] 05:02:00 Test Item Value Reference Range Interpretation [...] L 0.00-0.20 (test code = 417) POCT-GLUCOSE [id number] 04:49:00 Test Item Value Reference Range Interpretation Comments POC-GLUCOSE METER > mg/dL 70-110 HH OUTSIDE ME ASURING (BEAKER) (test code RANGETES PRACHI AT [facility] [address] = 1538) [facility] [address] BLOOD [id number] 00:00:00 Test Item Value Reference Range Interpretation Comments CULTURE (BEAKER) (test No growth in 5 days code = 1095) BLOOD [id number] 00:00:00 Test Item Value Reference Range Interpretation Comments CULTURE (BEAKER) (test No growth in 5 days code = 1095) URINE [id number] 15:21:00 Test Item Value Reference Range Interpretation Comments CULTURE (BEAKER) (test >100,000 col/mL skin code = 1095) christophe POCT-GLUCOSE [id number] 14:37:00 Test Item Value Reference Range Interpretation Comments POC-GLUCOSE METER 326 mg/dL 70-[address] [facility] 67 ([facility]) (test code = [facility] 1538) [address] POCT-GLUCOSE [id number] 13:26:00 Test Item Value Reference Range Interpretation Comments POC-GLUCOSE METER 331 mg/dL 70-110 H TESTED AT [place] [address] ([facility]) (test code = [facility] 1538) [address] CBC W/PLT COUNT & AUTO [id number] 11:34:00 Test Item Value Reference Range Interpretation [...] COUNTED (BEAKER) (test code = 1351) POCT-GLUCOSE [id number] 11:18:00 Test Item Value Reference Range Interpretation Comments POC-GLUCOSE METER 349 mg/dL 70-[address] [facility] 6720 (BEAKER) (test code = [place] 1538) [address] POCT-GLUCOSE [id number] 09:34:00 Test Item Value Reference Range Interpretation Comments POC-GLUCOSE METER 61 mg/dL 70-110 L TESTED AT [place] [address] (BEAKER) (test code = SHARATH Blackwell [facility] [address] 1538) POCT-GLUCOSE [id number] 08:48:00 Test Item Value Reference Range Interpretation Comments POC-GLUCOSE METER 79 mg/dL 70-110 TESTED AT [place] [address] (BEAKER) ([facility] = [facility] [address] 1538) BASIC METABOLIC [id number] 06:12:00 Test Item Value Reference Range Interpretation [...] NOT APPLICABLE FOR DIALYSIS PATIEN TS. KETONE, [id number] 05:43:00 Test Item Value Reference Range Interpretation Comments KETONES, BLOOD (BEAKER) (test code 0.1 mmol/L <0.4 = 1103) POCT-GLUCOSE [id number] 05:39:00 Test Item Value Reference Range Interpretation Comments POC-GLUCOSE METER 366 mg/dL 70-110 H TESTED AT [place] [address] (BEAKER) (test code = [facility] 1538) [address] POCT-GLUCOSE [id number] 22:32:00 Test Item Value Reference Range Interpretation Comments POC-GLUCOSE METER 302 mg/dL 70-110 H TESTED AT [place] [address] [facility] (test code = [facility] 1538) [address] POCT-GLUCOSE [id number] 19:15:00 Test Item Value Reference Range Interpretation Comments POC-GLUCOSE METER 273 mg/dL 70-110 H TESTED AT [place] [address] ([facility]) (test code = SHARATH Blackwell [facility] 1538) [address] POCT-GLUCOSE [id number] 17:49:00 Test Item Value Reference Range Interpretation Comments POC-GLUCOSE METER 174 mg/dL 70-110 H TESTED AT [place] [address] ([facility]) (test code = SHARATH Blackwell [facility] 1538) [address] POCT-GLUCOSE [id number] 17:02:00 Test Item Value Reference Range Interpretation Comments POC-GLUCOSE METER 171 mg/dL 70-110 H TESTED AT [place] [address] ([facility]) (test code = [facility] Rosalva [facility] 1538) [address] POCT-GLUCOSE [id number] 15:17:00 Test Item Value Reference Range Interpretation Comments POC-GLUCOSE METER 135 mg/dL 70-110 H TESTED AT [place] [address] ([facility]) (test code = [facility] Rosalva [facility] 1538) [address] POCT-GLUCOSE [id number] 13:10:00 Test Item Value Reference Range Interpretation Comments POC-GLUCOSE METER 61 mg/dL 70-110 L TESTED AT [place] [address] ([facility]) (test code = [facility] Rosalva [facility] [address] 1538) POCT-GLUCOSE [id number] 11:21:00 Test Item Value Reference Range Interpretation Comments POC-GLUCOSE METER 57 mg/dL 70-110 L Notified R Evita DAVIS/TESTED AT ([facility]) (test code = [address] 1538) [facility] [address] POCT-GLUCOSE [id number] 08:02:00 Test Item Value Reference Range Interpretation Comments POC-GLUCOSE METER 68 mg/dL 70-110 L Notified R Evita DAVIS/TESTED AT ([facility]) (test code = [address] 1538) [facility] 7[address] 0 CBC W/PLT COUNT & AUTO [id number] 08:02:00 Test Item Value Reference Range Interpretation Comments WHITE BLOOD CELL COUNT ([facility]) 6.6 K/ L 3.5-10.5 (test code = 775) RED BLOOD CELL COUNT ([facility]) 3.97 M/ L 3.93-5.22 (test code = [...] PERCENT (BEAKER) (test code = 2801) POCT-GLUCOSE [id number] 06:58:00 Test Item Value Reference Range Interpretation Comments POC-GLUCOSE METER 95 mg/dL 70-110 TESTED AT [place] [address] ([facility]) (test code = [facility] Rosalva [facility] [address] 1538) POCT-GLUCOSE [id number] 06:17:00 Test Item Value Reference Range Interpretation Comments POC-GLUCOSE METER 150 mg/dL 70-110 H TESTED AT [place] [address] ([facility]) (test code = [facility] 1538) [address] POCT-GLUCOSE [id number] 05:18:00 Test Item Value Reference Range Interpretation Comments POC-GLUCOSE METER 101 mg/dL 70-110 TESTED AT [place] [address] ([facility]) (test code = [facility] 1538) [address] POCT-GLUCOSE [id number] 05:07:00 Test Item Value Reference Range Interpretation Comments POC-GLUCOSE METER 119 mg/dL 70-110 H TESTED AT [place] [address] ([facility]) (test code = [facility] 1538) [address] BASIC METABOLIC [id number] 04:52:00 Test Item Value Reference Range Interpretation [...] NOT APPLICABLE FOR DIALYSIS PATIEN TS. POCT-GLUCOSE [id number] 04:05:00 Test Item Value Reference Range Interpretation Comments POC-GLUCOSE METER 48 mg/dL 70-110 L TESTED AT [place] [address] ([facility]) (test code = [facility] [address] 1538) POCT-GLUCOSE [id number] 02:30:00 Test Item Value Reference Range Interpretation Comments POC-GLUCOSE METER 181 mg/dL 70-110 H TESTED AT [place] [address] ([facility]) (test code = SHARATH Blackwell [facility] 1538) [address] POCT-GLUCOSE [id number] 02:10:00 Test Item Value Reference Range Interpretation Comments POC-GLUCOSE METER 37 mg/dL 70-110 LL Will Repea t Test/TESTED (BEAKER) (test code = AT [facility] [address] [place] [address] 1538) [facility] [address] POCT-GLUCOSE [id number] 01:07:00 Test Item Value Reference Range Interpretation Comments POC-GLUCOSE METER 87 mg/dL 70-110 [facility] [place] [address] [facility] (test code = SHARATH Blackwell [place] [id number] 1538) BASIC METABOLIC [id number] 00:44:00 Test Item Value Reference Range Interpretation [...] NOT APPLICABLE FOR DIALYSIS PATIEN TS. POCT-GLUCOSE [id number] 00:30:00 Test Item Value Reference Range Interpretation Comments POC-GLUCOSE METER 96 mg/dL 70-110 TESTED AT [place] [address] [facility] (test code = SHARATH Blackwell [facility] [address] 1538) POCT-GLUCOSE [id number] 23:54:00 Test Item Value Reference Range Interpretation Comments POC-GLUCOSE METER 91 mg/dL 70-110 TESTED AT [place] [address] (BEAKER) (test code = SHARATH Blackwell [facility] [address] 1538) POCT-GLUCOSE [id number] 23:12:00 Test Item Value Reference Range Interpretation Comments POC-GLUCOSE METER 48 mg/dL 70-110 L TESTED AT [place] [address] (BEAKER) (test code = [facility] Rosalva [facility] [address] 1538) POCT-GLUCOSE [id number] 21:58:00 Test Item Value Reference Range Interpretation Comments POC-GLUCOSE METER 94 mg/dL 70-110 TESTED AT [place] [address] (BEAKER) (test code = [facility] [address] 1538) BASIC METABOLIC [id number] 21:08:00 Test Item Value Reference Range Interpretation [...] NOT APPLICABLE FOR DIALYSIS PATIEN TS. POCT-GLUCOSE [id number] 20:57:00 Test Item Value Reference Range Interpretation Comments POC-GLUCOSE METER 165 mg/dL 70-110 H TESTED AT [place] [id number] (BEAKER) (test code = [facility] 1538) [address] [id number] 20:55:00 Test Item Value Reference Range Interpretation Comments POTASSIUM (BEAKER) (test code = 3.6 meq/L 3.5-5.1 379) URINALYSIS W/ [id number] 20:40:00 Test Item Value Reference Range Interpretation [...] 516) SOURCE(BEAKER) (test code = 2795) POCT-GLUCOSE [id number] 19:59:00 Test Item Value Reference Range Interpretation Comments POC-GLUCOSE METER 282 mg/dL 70-[address] [facility] 67 ([facility]) (test code = SHARATH Blackwell [facility] 153) [address] POCT-GLUCOSE [id number] 19:02:00 Test Item Value Reference Range Interpretation Comments POC-GLUCOSE METER 374 mg/dL 70-110 H Notified Rosalva Jama MD/TESTED (BEAKER) (test code = AT [facility] [address] [place], [place] [address]) [facility] 7703 0 CBC W/PLT COUNT & AUTO [id number] 18:56:00 Test Item Value Reference Range Interpretation [...] PERCENT (BEAKER) (test code = 2801) POCT-GLUCOSE [id number] 18:03:00 Test Item Value Reference Range Interpretation Comments POC-GLUCOSE METER 294 mg/dL 70-[address] [facility] 6720 (TACO) (test code = [place] 1538) [address] HEMOGLOBIN [id number] 17:45:00 Test Item Value Reference Range Interpretation Comments HEMOGLOBIN A1C (TACO) (test code = 12.6 % 4.3-6.1 H 368) RAD, CHEST, 1 VIEW, NON [id number] 17:20:00Reason for exam:->sobShould this be performed at [...] Mckeon Verified Date/Time: 04/07/2017 17:20:50 Reading Location: [address] Radiology Reading Room TSH/FREE T4 IF [id number] 17:04:00 Test Item Value Reference Range Interpretation Comments THYROID STIMULATING HORMONE 0.95 uIU/mL 0.35-4.94 (TACO) (test code = 772) TROPONIN [id number] 16:51:00 Test Item Value Reference Range Interpretation [...] renalfailure, acidosis, acute neurological disease, and persistent tachyarrhythmia.[id number] 16:45:00 Test Item Value Reference Range Interpretation Comments LIPASE (BEAKER) (test code = 749) 33 U/L 8-78 [id number] 16:45:00 Test Item Value Reference Range Interpretation Comments AMYLASE (BEAKER) (test code = 349) 66 U/L 25-125 BASIC METABOLIC [id number] 16:45:00 Test Item Value Reference Range Interpretation [...] DIALYSIS PATIEN TS. LACTIC ACID, VENOUS, WHOLE [id number] 16:45:00 Test Item Value Reference Range Interpretation Comments LACTATE BLOOD VENOUS (2) (BEAKER) 1.1 mmol/L 0.5-2.2 (test code = 2872) Effective 12/05/2015: Units/Reference Range ChangeNew: 0.5-2.2 mmol/L Previous: 5-20 mg/dLKETONE, [id number] 16:41:00 Test Item Value Reference Range Interpretation Comments KETONES, BLOOD (BEAKER) (test code 2.1 mmol/L <0.4 H = 1103) BLOOD GAS, [id number] 16:27:00 Test Item Value Reference Range Interpretation Comments PH VENOUS (BEAKER) (test code = 7.36 7.32-7.42 701) PCO2 VENOUS (BEAKER) (test code = 41 mmHg 41-51 755) PO2 VENOUS ([facility]) (test code = 18 mmHg 25-40 L 702) O2 SATURATION VENOUS ([facility]) 26.4 % 40.0-70.0 L (test code = 703) HCO3 VENOUS ([facility]) (test code = 23 mmol/L 21-29 705) BASE EXCESS VENOUS ([facility]) (test -2.5 mmol/L -2.0-3.0 L code = 704) PATIENT TEMPERATURE ([facility]) 37.0 C (test code = 1818) POCT-GLUCOSE [id number] 16:20:00 Test Item Value Reference Range Interpretation Comments POC-GLUCOSE METER 156 mg/dL 70-110 H TESTED AT [place] [address] ([facility]) ([facility] = [facility] 1538) [address] POCT-GLUCOSE [id number] 15:28:00 Test Item Value Reference Range Interpretation Comments POC-GLUCOSE METER 101 mg/dL 70-110 TESTED AT [place] [address] ([facility]) (test code = [facility] Rosalva [facility] 1538) [address]
[2020-11-23 05:34] LABS: Absolute Lymphocytes (CBC) 2.5 K/uL (0.7-4.9); Basophils % 1.1 % (0-1.3); Hematocrit 36.7 % (36.0-45.0); Lymphocytes % 38.2 % (15.3-44.8); MPV 8.3 fL (7.6-11.3); RBC Red Blood Cell Count 4.32 M/uL (3.86-4.86)
[2020-11-23 05:49] LABS: ALT/SGPT 20 U/L (12-78); AST/SGOT 15 U/L (15-37); Albumin 3.3 g/dL (3.4-5.0); Alkaline Phosphatase 143 U/L (45-117); BUN Blood Urea Nitrogen 19 mg/dL (7-18); Bicarbonate 25 mmol/L (21-32); Bilirubin Direct < 0.1 mg/dL (0-0.2); Bilirubin Total 0.2 mg/dL (0.2-1.0); Lipase 164 U/L (73-393); Potassium 4.3 mmol/L (3.5-5.1); Protein, Total 7.2 g/dL (6.4-8.2); Sodium Level 136 mmol/L (136-145)
[2020-11-23] MEDS ORDERED: MORPHINE 4 MG/ML SYR ONE (05:49)
[2020-11-23] MEDS ORDERED: ONDANSETRON 4 MG/2 ML VIAL ONE (05:49)
[2020-11-23] MEDS ORDERED: NA CHLORIDE 0.9% 1,000 ML ONE (05:49)
[2020-11-23 05:51] LABS: Glucose Level 579 mg/dL (74-106)
[2020-11-23 06:01] LABS: Urine Blood 1+ (Negative); Urine Glucose 3+ (Negative); Urine Protein Negative (Negative); Urine pH 6.5 (5.0-7.0)
[2020-11-23] MEDS ORDERED: INSULIN -REGULAR HUMAN 50 UNIT/0.5 ML ML ONE (07:17)
[2020-11-23] MEDS ORDERED: KETOROLAC 30 MG/ML INJ ONE (07:39)
--- NOTE | 2020-11-23 07:54 | ER ---
Nurse's Notes [facility] Name: Salome Santacruz Age: 20 yrs Sex: Female : 2000 Arrival Date: 11/23/2020 Time: 04:00 Bed 24 Private MD: Diagnosis: Abdominal tenderness;Hyperglycemia, unspecified Presentation: 11/23 04:40 Chief complaint: Patient states: 7 weeks post op emergency , done at [facility], has had right sided abd pain since then but worsening over past 2 weeks, had her f/u with OB but it wasn't hurting at that time. Coronavirus screen: At this time, the client does not indicate any symptoms associated with coronavirus-19. Ebola Screen: Patient negative for fever greater than or equal to 101.5 degrees Fahrenheit, and additional compatible Ebola Virus Disease symptoms Patient denies exposure to infectious person. Patient denies travel to an Ebola-affected area in the 21 days before illness onset. No symptoms or risks identified at this time. Initial Sepsis Screen: Does the patient meet any 2 criteria? No. Patient's initial sepsis screen is negative. Does the patient have a suspected source of infection? No. Patient's initial sepsis screen is negative. Risk Assessment: Do you want to hurt yourself or someone else? Patient reports no desire to harm self or others. Onset of symptoms was November 09, 2020. 04:40 Method Of Arrival: Ambulatory iw 04:40 Acuity: BRIAN 3 iw Historical: - Allergies: 04:45 Demerol; iw 04:45 Latex, Natural Rubber; iw 04:45 Midol; iw 04:45 Phenergan; iw 04:45 raw onions; iw 04:45 Keflex; iw - Home Meds: 04:45 Levemir 100 unit/mL subcutaneous soln daily [Active]; Humalog 100 unit/mL Sub-Q soln 20 iw unit before meals [Active]; sertraline 100 mg oral tab once daily [Active]; - PMHx: 04:45 Anxiety; Depression; Diabetes - IDDM; iw - PSHx: 04:45 ; iw - Immunization history:: Adult Immunizations up to date. - Social history:: Smoking status: Patient denies any tobacco usage or history of. Screenin:04 Abuse screen: Denies threats or abuse. Denies injuries from another. Nutritional iw screening: On. Tuberculosis screening: No symptoms or risk factors identified. Fall Risk IV access (20 points). Assessment: 05:10 General: Appears in no apparent distress. Behavior is calm, cooperative. Pain: iw Complains of pain in right lower quadrant and left lower quadrant Pain radiates to posterior aspect of right lateral abdomen and anterior aspect of right lateral abdomen. Neuro: Level of Consciousness is awake, alert, obeys commands, Oriented to person, place, time, situation, Moves all extremities. Full function. Cardiovascular: Patient's skin is warm and dry. Respiratory: Respiratory effort is even, unlabored, Respiratory pattern is regular, symmetrical. GI: Bowel sounds present X 4 quads. Abd is soft X 4 quads Reports lower abdominal pain. Derm: Skin is intact, is healthy with good turgor. Musculoskeletal: Range of motion: intact in all extremities. 06:03 Reassessment: Patient appears in no apparent distress at this time. Patient and/or iw family updated on plan of care and expected duration. Pain level reassessed. Patient is alert, oriented x 3, equal unlabored respirations, skin warm/dry/pink. 07:25 Reassessment: Patient appears in no apparent distress at this time. Patient and/or iw family updated on plan of care and expected duration. Pain level reassessed. Patient is alert, oriented x 3, equal unlabored respirations, skin warm/dry/pink. Patient states feeling better. Patient states symptoms have improved. Vital Signs: 04:40 BP 127 / 76; Pulse 90; Resp 16; Temp 98.9(TE); Pulse Ox 100% on R/A; iw 07:26 BP 126 / 74; Pulse 64; Resp 16; Pulse Ox 98% on R/A; iw ED Course: 04:00 Patient arrived in ED. bp1 04:43 Triage completed. iw 04:45 Arm band placed on. iw 04:55 Rigoberto Mccoy MD is Attending Physician. tw4 05:16 Pauline London, RN is Primary Nurse. iw 05:16 Initial lab(s) drawn, by me, sent to lab. Inserted saline lock: 20 gauge in right iw antecubital area, using aseptic technique. Blood collected. 06:22 CT Abd/Pelvis - IV Contrast Only In Process Unspecified. EDMS 07:31 Attending Physician role handed off by Rigoberto Mccoy MD [facility] 07:31 Dre Rice MD is Attending Physician. rajan 08:34 No provider procedures requiring assistance completed. IV discontinued, intact, ss bleeding controlled, No redness/swelling at site. Pressure dressing applied. Administered Medications: 05:35 Drug: NS 0.9% 1000 ml Route: IV; Rate: 1 bolus; Site: right antecubital; iw 08:37 Follow up: IV Status: Completed infusion; IV Intake: 1000ml ss 05:35 Drug: morphine 4 mg Route: IVP; Site: right antecubital; iw 08:32 Follow up: Response: No adverse reaction ss 05:35 Drug: Zofran (Ondansetron) 4 mg Route: IVP; Site: right antecubital; iw 08:01 Follow up: Response: No adverse reaction ss 07:10 Drug: Insulin Regular Human 10 units {Co-Signature: (Pauline London RN).} Route: ss IVP; Site: right antecubital; 08:31 Follow up: Response: No adverse reaction; Blood sugar is lowered ss 07:25 Drug: TORadol (ketorolac) 30 mg Route: IVP; Site: right antecubital; iw 08:31 Follow up: Response: No adverse reaction; Pain is decreased ss 08:31 Not Given (Physician Discretion): NS 0.9% 1000 ml IV at 1 bolus Per protocol; 1000 mL ss bolus 08:31 Not Given (bgl UNDER 300): Insulin Regular Human 10 units IVP once; if blood glucose ss greater than 300 mg/dl 08:34 Drug: LanTUS (insulin glargine) 35 units Route: Sub-Q; Site: left upper arm; ss 08:34 Follow up: Response: Medication administered at discharge. ss Intake: 08:37 IV: 1000ml; Total: 1000ml. ss Outcome: 07:53 Discharge ordered by . rajan 08:34 Discharged to home ambulatory. ss 08:34 Condition: improved 08:34 Discharge instructions given to patient, Instructed on discharge instructions, follow up and referral plans. Demonstrated understanding of instructions, follow-up care. 08:36 Patient left the ED. ss Signatures: Dispatcher [employer] [facility] Dre Rice MD MD cha Williams, Irene, RN RN Dominique Garcia RN RN Rigoberto Mccoy MD MD tw4 [facility]hel[facility] Pauline London RN iw Corrections: (The following items were deleted from the chart) 06:03 04:40 BP 127 / 76; Pulse 90bpm; Resp 16bpm; Pulse Ox 100% RA; iw iw
--- NOTE | 2020-11-23 07:54 | EDPHYS ---
Physician Documentation [facility] Name: Salome Santacruz Age: 20 yrs Sex: Female : 2000 Arrival Date: 11/23/2020 Time: 04:00 Bed 24 Private MD: KRISTINE Physician Dre Rice HPI: 11/23 05:58 This 20 yrs old Female presents to ER via Ambulatory with complaints of tw4 Abdominal Pain, Post Surgical Pain. 05:58 The patient presents with abdominal pain in the left lower quadrant. Onset: The tw4 symptoms/episode began/occurred 2 week(s) ago. The symptoms do not radiate. Associated signs and symptoms: none. The symptoms are described as dull. Modifying factors: The symptoms are alleviated by nothing. The patient has not experienced similar symptoms in the past. Historical: - Allergies: 04:45 Demerol; iw 04:45 Latex, Natural Rubber; iw 04:45 Midol; iw 04:45 Phenergan; iw 04:45 raw onions; iw 04:45 Keflex; iw - Home Meds: 04:45 Levemir 100 unit/mL subcutaneous soln daily [Active]; Humalog 100 unit/mL Sub-Q soln 20 iw unit before meals [Active]; sertraline 100 mg oral tab once daily [Active]; - PMHx: 04:45 Anxiety; Depression; Diabetes - IDDM; iw - PSHx: 04:45 ; iw - Immunization history:: Adult Immunizations up to date. - Social history:: Smoking status: Patient denies any tobacco usage or history of. ROS: 05:58 Constitutional: Negative for fever, chills, and weight loss, Eyes: Negative for injury, tw4 pain, redness, and discharge, ENT: Negative for injury, pain, and discharge, Cardiovascular: Negative for chest pain, palpitations, and edema, Respiratory: Negative for shortness of breath, cough, wheezing, and pleuritic chest pain, Back: Negative for injury and pain. 05:58 Abdomen/GI: Positive for abdominal pain, nausea and vomiting, nausea, vomiting, and diarrhea, nausea, vomiting, Negative for constipation, abdominal cramps, abdominal distension, anorexia, dysphagia, hematemesis, black/tarry stool, rectal pain, rectal bleeding, bowel incontinence. Exam: 05:58 Constitutional: This is a well developed, well nourished patient who is awake, alert, tw4 and in no acute distress. Head/Face: Normocephalic, atraumatic. Chest/axilla: Normal chest wall appearance and motion. Nontender with no deformity. No lesions are appreciated. Cardiovascular: Regular rate and rhythm with a normal S1 and S2. No gallops, murmurs, or rubs. Normal PMI, no JVD. No pulse deficits. Respiratory: Lungs have equal breath sounds bilaterally, clear to auscultation and percussion. No rales, rhonchi or wheezes noted. No increased work of breathing, no retractions or nasal flaring. Abdomen/GI: Soft, non-tender, with normal bowel sounds. No distension or tympany. No guarding or rebound. No evidence of tenderness throughout. Back: No spinal tenderness. No costovertebral tenderness. Full range of motion. Skin: Warm, dry with normal turgor. Normal color with no rashes, no lesions, and no evidence of cellulitis. MS/ Extremity: Pulses equal, no cyanosis. Neurovascular intact. Full, normal range of motion. Neuro: Awake and alert, GCS 15, oriented to person, place, time, and situation. Cranial nerves II-XII grossly intact. Motor strength 5/5 in all extremities. Sensory grossly intact. Cerebellar exam normal. Normal gait. Vital Signs: 04:40 BP 127 / 76; Pulse 90; Resp 16; Temp 98.9(TE); Pulse Ox 100% on R/A; iw 07:26 BP 126 / 74; Pulse 64; Resp 16; Pulse Ox 98% on R/A; iw MDM: 04:55 Patient medically screened. 11/23 04:50 Order name: Basic Metabolic Panel; Complete Time: 06:49 11/23 04:50 Order name: CBC with Diff; Complete Time: 06:49 11/23 04:50 Order name: Hepatic Function; Complete Time: 06:49 11/23 04:50 Order name: Lipase; Complete Time: 06:49 11/23 06:00 Order name: Urine --Ancillary (enter results); Complete Time: 07:49 tt3 11/23 06:00 Order name: Urine Dipstick-Ancillary; Complete Time: 06:49 EDMS 11/23 05:37 Order name: CT Abd/Pelvis - IV Contrast Only tw4 11/23 06:49 Order name: Acetone, Serum tw4 11/23 08:22 Order name: Glucose, Ancillary Testing [facility] 11/23 04:50 Order name: IV Saline Lock; Complete Time: 05:17 tw4 11/23 04:50 Order name: Labs collected and sent; Complete Time: 05:17 tw4 11/23 05:37 Order name: Urine Dipstick-Ancillary (obtain specimen); Complete Time: 05:55 tw4 11/23 05:37 Order name: Urine Test (obtain specimen); Complete Time: 06:02 tw4 11/23 07:53 Order name: Blood Glucose Level; Complete Time: 08:31 rajan Administered Medications: 05:35 Drug: NS 0.9% 1000 ml Route: IV; Rate: 1 bolus; Site: right antecubital; iw 08:37 Follow up: IV Status: Completed infusion; IV Intake: 1000ml ss 05:35 Drug: morphine 4 mg Route: IVP; Site: right antecubital; iw 08:32 Follow up: Response: No adverse reaction ss 05:35 Drug: Zofran (Ondansetron) 4 mg Route: IVP; Site: right antecubital; iw 08:01 Follow up: Response: No adverse reaction ss 07:10 Drug: Insulin Regular Human 10 units {Co-Signature: iw (Pauline London RN).} Route: ss IVP; Site: right antecubital; 08:31 Follow up: Response: No adverse reaction; Blood sugar is lowered ss 07:25 Drug: TORadol (ketorolac) 30 mg Route: IVP; Site: right antecubital; iw 08:31 Follow up: Response: No adverse reaction; Pain is decreased ss 08:31 Not Given (Physician Discretion): NS 0.9% 1000 ml IV at 1 bolus Per protocol; 1000 mL ss bolus 08:31 Not Given (bgl UNDER 300): Insulin Regular Human 10 units IVP once; if blood glucose ss greater than 300 mg/dl 08:34 Drug: LanTUS (insulin glargine) 35 units Route: Sub-Q; Site: left upper arm; ss 08:34 Follow up: Response: Medication administered at discharge. ss Disposition: 11/23/20 07:53 Discharged to Home. Impression: Abdominal tenderness, Hyperglycemia, unspecified. - Condition is Stable. - Discharge Instructions: Type 1 Diabetes Mellitus, Diagnosis, Adult, Type 1 Diabetes Mellitus, Self Care, Adult, [id number], Abdominal Pain, Adult, Hyperglycemia. - Prescriptions for Bentyl 20 mg Oral Tablet - take 1 tablet by ORAL route every 6 hours As needed; 20 tablet. Ibuprofen 800 mg Oral Tablet - take 1 tablet by ORAL route every 8 hours As needed take with food; 30 tablet. - Medication Reconciliation Form, Thank You Letter, Antibiotic Education, Prescription Opioid Use, Work release form form. - Follow up: Private Physician; When: Upon discharge from the Emergency Department; Reason: Recheck today's complaints, Continuance of care, Re-evaluation by your physician. - Problem is new. - Symptoms have improved. Signatures: Dispatcher [employer] EDMS Dre Rice MD MD cha Williams, Irene, RN RN iw Smirch, Shelby, RN RN ss Wadley, Terrence, MD MD tw4 Pauline London RN iw Corrections: (The following items were deleted from the chart) 08:36 07:53 11/23/2020 07:53 Discharged to Home. Impression: Abdominal tenderness; ss Hyperglycemia, unspecified. Condition is Stable. Discharge Instructions: Abdominal Pain, Adult, Hyperglycemia. Prescriptions for Bentyl 20 mg Oral Tablet - take 1 tablet by ORAL route every 6 hours As needed; 20 tablet, Ibuprofen 800 mg Oral Tablet - take 1 tablet by ORAL route every 8 hours As needed take with food; 30 tablet. and Forms are Medication Reconciliation Form, Thank You Letter, Antibiotic Education, Prescription Opioid Use. Follow up: Private Physician; When: Upon discharge from the Emergency Department; Reason: Recheck today's complaints, Continuance of care, Re-evaluation by your physician. Problem is new. Symptoms have improved. rajan
[2020-11-23 08:42] VITALS: TEMP 98.9
[2020-11-23] MEDS ORDERED: INSULIN GLARGINE 100 UNITS/ML SQ ONE (08:42)
[2020-11-23 08:44] VITALS: BP 126/74; O2SAT 98
--- NOTE | 2020-11-23 16:22 | RAD REPORT ---
EXAM DESCRIPTION: CT - Abdomen Pelvis W Contrast - 11/23/2020 7:02 am CLINICAL HISTORY: The patient is 20 years old and is Female; ABD PAIN TECHNIQUE: Axial computed tomography images of the abdomen and pelvis with intravenous contrast. S agittal and coronal reformatted images were created and reviewed. This CT exam was performed using one or more of the following dose reduction techniques: automated exposure control, adjustment of t he mA and/or kV according to patient size, and/or use of iterative reconstruction technique. COMPARISON: CT abdomen and pelvis 04/20/2019.. FINDINGS: Lung bases: Unremarkable. No mass. No consolidation. ABDOMEN: Liver: Hepatomegaly. Gallbladder and bile ducts: Unremarkable. No calcified stones. No ductal dilation. Pancreas: Unremarkable. No mass. No ductal dilation. Spleen: Unremarkable. No splenomegaly. Adrenals: Unremarkable. No mass. Kidneys and ureters: Unremarkable. No solid mass. No hydronephrosis. Stomach and bowel: Unremarkable. No obstruction. No mucosal thickening. PELVIS: Appendix: No findings to suggest acute appendicitis. Bladder: Unremarkable. No mass. Reproductive: Unremarkable as visualized. ABDOMEN and PELVIS: Intraperitoneal space: Midline surgical scar in the lower abdomen/pelvis. No free air. No significant fluid collection. Bones/joints: No acute fracture. No dislocation. Soft tissues: Unremarkable. Vasculature: Unremarkable. No abdominal aortic aneurysm. Lymph nodes: Unremarkable. No enlarged lymph nodes. IMPRESSION: 1. No acute finding. 2. Hepatomegaly. Electronically signed by: Roshan Aquino MD 11/23/2020 6:51 AM CDT Due to temporary technical issues with the PACS/Fluency reporting system, reports are being signed by the in house radiologists without review as a courtesy to insure prompt reporting. The interpreting radiologist is fully responsible for the content of the report.
== END 2020-11-23 08:36 | disposition home or self-care (01) ==
LOC: ER 03:58
DX: R10.819 Abdominal tenderness, unspecified site (principal); E10.65 Type 1 diabetes mellitus with hyperglycemia; F41.9 Anxiety disorder, unspecified; F32.9 Major depressive disorder, single episode, unspecified
CPT/HCPCS: 96361; 85025; 80048; 36415; 82010; 81025; 82947; 80076; 81003; 83690; 74177; 96375; 96372; 96374; 99284; Q9967; J1815; J7030; J2405

== ENCOUNTER 2020-11-27 10:39 | Inpatient (IN) | payer OTHER ==
--- OUTSIDE RECORDS SUMMARY | 2020-11-27 10:43 | XMS REPORT | Continuity of Care Document ---
:2000 Author Organization [facility] t Address [address] [place] [address] Care Team Providers Name Role Phone Inga [...] 1 9-05 [facility] - 00:[facility]: Medical 00 [place] Nausea Nausea Disease Active [facility] [...] [facility] - adverse 00:00: Medical reaction 00 [place] Latex Propensi Active Rash [facility] ty to 04-07 [facility] - adverse 00:00: Medical reaction 00 [place] Acetamin Propensi Active Rash Bumps in [facility] ophen-Pa ty to 04-07 mouth [facility] - m[facility]rom adverse 00:00: Medical reaction 00 [place] Prometha Propensi Active Anxiety Severe [facility] to 04-07 anxiety [facility] - adverse 00:00: attacks Medical reaction 00 [place] Social History Social Habit Start Date Stop Date Quantity Comments Source Sex Assigned At [facility] Tobacco use and 2017-06-17 2017-06-17 Never used [facility] - exposure 00:00:00 00:00:00 [facility] Alcohol intake 2017-06-17 2017-06-17 Current [facility] es - 00:00:00 00:00:00 non-drinker of Medical nter alcohol (finding) History of 2016-06-18 Smoker [facility] - tobacco use 00:00:00 [facility] Smoking Status Start Date Stop Date Source Former smoker 2017-06-17 00:00:00 2017-06-17 00:00:00 [facility] - [facility] Medications Ordered Filled Start Stop Current Ordering Indication Dosage Frequency Signature Comments Components Source Medication Medication Date Date Medication? Clinician (SIG) Name Name medroxyPROG 2016-08 Yes 150mg Inject 150 [facility] ESTERone -17 contracepti mg [facility] - [...] insulin Yes If [facility] regular 9-07 XL=690-682 [facility] - (HUMULIN 00:00: , give Medical R,NOVOLIN 00 1unitIf Center R) 100 GR=860-139 unit/mL , give injection 2unitsIf OO=126-894 , give 4unitsIf TD=518-434 , give 6unitsIf LK=900-636 , give 8units. Immunizations Ordered Immunization Filled Immunization Date Status Commen ts Source Name Name Influenza Three-TIV 2017-05-18 [facility] Procedures This patient has no known procedures. Encounters Start End Encounter Admission Attending Care Care Encounter Source Date/Time Date/Time Type Type Clinicians Facility Department ID 2020-11-14 2020-11-14 [id number] 13:09:00 14:20:05 Visit Eileen Kathrine LIGHTING ENGINEER [id number] [facility] [id number] MATERNAL [id number] & CHILD [address] [place] [address] Results Test Description Test Time Test Comments Results Result Comments Source US PELVIC 2018-03-16 CLINICAL (TRANSVAGINAL ONLY) 14:02:32 INDICATION: R10.2 Pelvic and perineal painTECHNIQUE:Real- time and doppler transvaginal ultrasound evaluation of the pelvis was performed on the [employer] Pre[employer].Comparison study: No prior study.FINDINGS:Uter us: 8.2 [...] (test 230 mg/dL 70-110 H TESTED AT [facility] [address] [facility] code = 1538) [place] [address] POCT-GLUCOSE [id number] 08:32:00 Test Item Value Reference Range Interpretation Comments POC-GLUCOSE METER 70 mg/dL 70-110 TESTED AT [facility] [address] ([facility] (test code = [facility] 1538) [place] [address] POCT-GLUCOSE [id number] 05:13:00 Test Item Value Reference Range Interpretation Comments POC-GLUCOSE METER 152 mg/dL 70-110 H TESTED AT [facility] [address] ([facility] (test code [facility] = 1538) [place] [address] POCT-GLUCOSE [id number] 04:14:00 Test Item Value Reference Range Interpretation Comments POC-GLUCOSE METER 55 mg/dL 70-[address] [place] [address] [address] (BEAKER) ([facility] = [facility] [place] [address] POCT-GLUCOSE [id number] 20:37:00 Test Item Value Reference Range Interpretation Comments POC-GLUCOSE METER 204 mg/dL 70-110 H TESTED AT [facility] [address] (BEAKER) (test code [facility] = 1538) [place] [address] POCT-GLUCOSE [id number] 19:01:00 Test Item Value Reference Range Interpretation Comments POC-GLUCOSE METER 88 mg/dL 70-110 TESTED AT [facility] [address] (BEAKER) (test [facility] = [facility]38[facility] [place] [address] POCT-GLUCOSE [id number] 17:27:00 Test Item Value Reference Range Interpretation Comments POC-GLUCOSE METER 253 mg/dL 70-110 H TESTED AT [facility] [address] (BEAKER) (test code [facility] = 1538) [place] [address] POCT-GLUCOSE [id number] 15:36:00 Test Item Value Reference Range Interpretation Comments POC-GLUCOSE METER 366 mg/dL 70-110 H TESTED AT [facility] [address] (BEAKER) (test code [facility] = 1538) [place] [address] POCT-GLUCOSE [id number] 11:51:00 Test Item Value Reference Range Interpretation Comments POC-GLUCOSE METER 194 mg/dL 70-110 H TESTED AT [facility] [address] (BEAKER) (test code [facility] = 1538) [place] [address] POCT-GLUCOSE [id number] 10:19:00 Test Item Value Reference Range Interpretation Comments POC-GLUCOSE METER 147 mg/dL 70-110 H TESTED AT [facility] [address] (BEAKER) (test code [employer] [facility] = 1538) [place] [address] BASIC METABOLIC [id number] 09:23:00 Test Item Value Reference Range Interpretation [...] NOT APPLICABLE FOR DIALYSIS PATIEN TS. POCT-GLUCOSE [id number] 08:02:00 Test Item Value Reference Range Interpretation Comments POC-GLUCOSE METER 161 mg/dL 70-110 H TESTED AT [facility] [address] (BEAKER) (test code [facility] = 1538) [place] [address] POCT-GLUCOSE [id number] 07:03:00 Test Item Value Reference Range Interpretation Comments POC-GLUCOSE METER 151 mg/dL 70-[address] [place] [address] [address] (BEAKER) (test code [facility] = 1538) [place] [address] POCT-GLUCOSE [id number] 05:08:00 Test Item Value Reference Range Interpretation Comments POC-GLUCOSE METER 158 mg/dL 70-110 H TESTED AT [facility] [address] (BEAKER) (test code [facility] = 1538) [place] [address] BASIC METABOLIC [id number] 04:51:00 Test Item Value Reference Range Interpretation [...] NOT APPLICABLE FOR DIALYSIS PATIEN TS. POCT-GLUCOSE [id number] 03:03:00 Test Item Value Reference Range Interpretation Comments POC-GLUCOSE METER 153 mg/dL 70-110 H TESTED AT [facility] [address] (BEAKER) (test code [facility] = 1538) [place] [address] POCT-GLUCOSE [id number] 02:09:00 Test Item Value Reference Range Interpretation Comments POC-GLUCOSE METER 159 mg/dL 70-110 H TESTED AT [facility] [address] (BEAKER) (test code [facility] = 1538) [place] [address] POCT-GLUCOSE [id number] 01:08:00 Test Item Value Reference Range Interpretation Comments POC-GLUCOSE METER 174 mg/dL 70-110 H TESTED AT [facility] [address] (BEAKER) (test code [facility] = 1538) [place] [address] BASIC METABOLIC [id number] 00:38:00 Test Item Value Reference Range Interpretation [...] NOT APPLICABLE FOR DIALYSIS PATIEN TS. POCT-GLUCOSE [id number] 00:37:00 Test Item Value Reference Range Interpretation Comments POC-GLUCOSE METER 198 mg/dL 70-[address] [place] [address] [address] ([facility] (test code [facility] = 1538) [place] [address] POCT-GLUCOSE [id number] 00:14:00 Test Item Value Reference Range Interpretation Comments POC-GLUCOSE METER 162 mg/dL 70-[address] [place] [address] [address] ([facility] (test code [facility] = 1538) [place] [address] POCT-GLUCOSE [id number] 23:39:00 Test Item Value Reference Range Interpretation Comments POC-GLUCOSE METER 149 mg/dL 70-110 H TESTED AT [facility] [address] ([facility]) (test code [facility] = 1538) [place] [address] POCT-GLUCOSE [id number] 23:10:00 Test Item Value Reference Range Interpretation Comments POC-GLUCOSE METER 134 mg/dL 70-110 H TESTED AT [facility] [address] ([facility]) (test code [facility] = 1538) [place] [address] POCT-GLUCOSE [id number] 22:41:00 Test Item Value Reference Range Interpretation Comments POC-GLUCOSE METER 112 mg/dL 70-110 H TESTED AT [facility] [address] ([facility]) (test code [facility] = 1538) [place] [address] POCT-GLUCOSE [id number] 21:59:00 Test Item Value Reference Range Interpretation Comments POC-GLUCOSE METER 95 mg/dL 70-110 TESTED AT [facility] [address] ([facility]) (test code = [facility] 1538) [place] [address] POCT-GLUCOSE [id number] 21:39:00 Test Item Value Reference Range Interpretation Comments POC-GLUCOSE METER 110 mg/dL 70-[address] [place] [address] [address] (BEAKER) (test code [employer] [facility] = 1538) [place] [address] POCT-GLUCOSE [id number] 21:07:00 Test Item Value Reference Range Interpretation Comments POC-GLUCOSE METER 114 mg/dL 70-110 H TESTED AT [facility] [address] (BEAKER) (test code [facility] = 1538) [place] [address] BASIC METABOLIC [id number] 20:47:00 Test Item Value Reference Range Interpretation [...] NOT APPLICABLE FOR DIALYSIS PATIEN TS. POCT-GLUCOSE [id number] 20:17:00 Test Item Value Reference Range Interpretation Comments POC-GLUCOSE METER 176 mg/dL 70-110 H TESTED AT [facility] [address] (BEAKER) (test code [facility] = 1538) [place] [address] [id number] 19:09:00 Test Item Value Reference Range Interpretation Comments GLUCOSE RANDOM (BEAKER) (test code 230 mg/dL 70-110 H = 652) If last glucose was less than 500, may do bedside glucose instead of serum glucose.POCT-GLUCOSE [id number] 18:53:00 Test Item Value Reference Range Interpretation Comments POC-GLUCOSE METER 212 mg/dL 70-110 H TESTED AT [facility] [address] (BEAKER) (test code [facility] = 1538) [place] [address] POCT-GLUCOSE [id number] 17:14:00 Test Item Value Reference Range Interpretation Comments POC-GLUCOSE METER 145 mg/dL 70-110 H TESTED AT [facility] [address] (BEAKER) (test code [facility] = 1538) [place] [address] BASIC METABOLIC [id number] 16:51:00 Test Item Value Reference Range Interpretation [...] may do bedside glucose instead of serum glucose.[id number] 16:47:00 Test Item Value Reference Range Interpretation Comments GLUCOSE RANDOM (BEAKER) (test code 126 mg/dL 70-110 H = 652) If last glucose was less than 500, may do bedside glucose instead of serum glucose.POCT-GLUCOSE [id number] 16:04:00 Test Item Value Reference Range Interpretation Comments POC-GLUCOSE METER 119 mg/dL 70-110 H TESTED AT [facility] [address] (BEAKER) (test code [facility] = 1538) [place] [address] [id number] 14:30:00 Test Item Value Reference Range Interpretation Comments POTASSIUM (BEAKER) (test code = 3.9 meq/L 3.5-5.5 379) If last glucose was less than 500, may do bedside glucose instead of serum glucose.[id number] 14:30:00 Test Item Value Reference Range Interpretation Comments GLUCOSE RANDOM (BEAKER) (test code 190 mg/dL 70-110 H = 652) If last glucose was less than 500, may do bedside glucose instead of serum glucose.POCT-GLUCOSE [id number] 14:05:00 Test Item Value Reference Range Interpretation Comments POC-GLUCOSE METER 194 mg/dL 70-110 H TESTED AT [facility] [address] (BEAKER) (test code [facility] = 1538) [place] [address] POCT-GLUCOSE [id number] 13:15:00 Test Item Value Reference Range Interpretation Comments POC-GLUCOSE METER 229 mg/dL 70-110 H TESTED AT [facility] [address] (BEAKER) (test code [facility] = 1538) [place] [address] BASIC METABOLIC [id number] 12:44:00 Test Item Value Reference Range Interpretation [...] may do bedside glucose instead of serum glucose.[id number] 12:43:00 Test Item Value Reference Range Interpretation Comments GLUCOSE RANDOM (BEAKER) (test code 258 mg/dL 70-110 H = 652) If last glucose was less than 500, may do bedside glucose instead of serum glucose.POCT-GLUCOSE [id number] 12:03:00 Test Item Value Reference Range Interpretation Comments POC-GLUCOSE METER 238 mg/dL 70-110 H TESTED AT [facility] [address] ([facility]) (test code [facility] = 1538) [place] [address] POCT-GLUCOSE [id number] 11:05:00 Test Item Value Reference Range Interpretation Comments POC-GLUCOSE METER 261 mg/dL 70-110 H TESTED AT [facility] [address] ([facility]) (test code [facility] = 1538) [place] [address] HEMOGLOBIN [id number] 10:07:00 Test Item Value Reference Range Interpretation Comments HEMOGLOBIN A1C (BEAKER) (test code = > % 4.3-6.1 H 368) [id number] 10:00:00 Test Item Value Reference Range Interpretation Comments GLUCOSE RANDOM (BEAKER) (test code 441 mg/dL 70-110 HH = 652) If last glucose was less than 500, may do bedside glucose instead of serum glucose.[id number] 09:55:00 Test Item Value Reference Range Interpretation Comments POTASSIUM (BEAKER) (test code = 4.1 meq/L 3.5-5.5 379) If last glucose was less than 500, may do bedside glucose instead of serum glucose.POCT-GLUCOSE [id number] 09:18:00 Test Item Value Reference Range Interpretation Comments POC-GLUCOSE METER > mg/dL 70-110 HH OUTSIDE ME ASURING ([facility] (test code [facility] PR[facility] [address] = 1538) [place] [address] [id number] 09:15:00 Test Item Value Reference Range Interpretation Comments GLUCOSE RANDOM (BEAKER) (test code 585 mg/dL 70-110 HH = 652) If last glucose was less than 500, may do bedside glucose instead of serum glucose.COMPREHENSIVE METABOLIC [id number] 08:30:00 Test Item Value Reference Range Interpretation [...] PATIEN TS. CBC W/PLT COUNT & AUTO [id number] 08:29:00 Test Item Value Reference Range Interpretation [...] K/ L 0.00-0.20 (test code = 417) [id number] 08:25:00 Test Item Value Reference Range Interpretation Comments PHOSPHORUS (BEAKER) (test code = 4.0 mg/dL 2.5-4.5 604) [id number] 08:25:00 Test Item Value Reference Range Interpretation Comments MAGNESIUM (BEAKER) (test code = 2.0 mg/dL 1.5-3.0 627) SCREEN, [id number] 08:16:00 Test Item Value Reference Range Interpretation Comments TEST URINE (BEAKER) (test Negative code = 583) URINALYSIS W/ [id number] 08:16:00 Test Item Value Reference Range Interpretation [...] Rare SOURCE(BEAKER) (test code = 2795) KETONE, [id number] 08:09:00 Test Item Value Reference Range Interpretation Comments KETONES, BLOOD (BEAKER) (test code 6.1 mmol/L <0.4 H = 1103) PH, [id number] 08:08:00 Test Item Value Reference Range Interpretation Comments PH VENOUS (BEAKER) (test code = 701) 7.18 7.32-7.42 LL BLOOD [id number] 13:00:00 Test Item Value Reference Range Interpretation Comments CULTURE (BEAKER) (test No growth in 5 days code = 1095) BLOOD [id number] 13:00:00 Test Item Value Reference Range Interpretation Comments CULTURE (BEAKER) (test No growth in 5 days code = 1095) POCT-GLUCOSE [id number] 17:12:00 Test Item Value Reference Range Interpretation Comments POC-GLUCOSE METER 136 mg/dL 70-110 H TESTED AT [facility] [address] (BEAKER) ([facility] = 1538) [place] [address] POCT-GLUCOSE [id number] 16:37:00 Test Item Value Reference Range Interpretation Comments POC-GLUCOSE METER 45 mg/dL 70-110 L TESTED AT [facility] [address] (BEAKER) (test code = [facility] 1538) [place] [address] POCT-GLUCOSE [id number] 11:32:00 Test Item Value Reference Range Interpretation Comments POC-GLUCOSE METER 98 mg/dL 70-110 TESTED AT [facility] [address] (BEAKER) (test code = [facility] 1538) [place] [address] POCT-GLUCOSE [id number] 06:45:00 Test Item Value Reference Range Interpretation Comments POC-GLUCOSE METER 85 mg/dL 70-110 TESTED AT [facility] [address] (BEAKER) (test code = [facility] 1538) [place] [address] [id number] 06:25:00 Test Item Value Reference Range Interpretation Comments PHOSPHORUS (BEAKER) (test code = 2.4 mg/dL 2.5-4.5 L 604) [id number] 06:25:00 Test Item Value Reference Range Interpretation Comments MAGNESIUM (BEAKER) (test code = 2.4 mg/dL 1.5-3.0 627) BASIC METABOLIC [id number] 06:25:00 Test Item Value Reference Range Interpretation [...] PATIEN TS. CBC W/PLT COUNT & AUTO [id number] 05:58:00 Test Item Value Reference Range Interpretation [...] L 0.00-0.20 (test code = 417) POCT-GLUCOSE [id number] 05:38:00 Test Item Value Reference Range Interpretation Comments POC-GLUCOSE METER 102 mg/dL 70-110 TESTED AT [facility] [address] (BEAKER) (test code [facility] = 1538) [place] [address] POCT-GLUCOSE [id number] 03:29:00 Test Item Value Reference Range Interpretation Comments POC-GLUCOSE METER 163 mg/dL 70-110 H TESTED AT [facility] [address] (BEAKER) (test code [facility] = 1538) [place] [address] POCT-GLUCOSE [id number] 03:29:00 Test Item Value Reference Range Interpretation Comments POC-GLUCOSE METER 155 mg/dL 70-110 H TESTED AT [facility] [address] (BEAKER) (test code [facility] = 1538) [place] [address] BASIC METABOLIC [id number] 01:42:00 Test Item Value Reference Range Interpretation [...] S NOT APPLICABLE FOR DIALYSIS PATIEN TS. [id number] 01:39:00 Test Item Value Reference Range Interpretation Comments PHOSPHORUS (BEAKER) (test code = 2.1 mg/dL 2.5-4.5 L 604) [id number] 01:39:00 Test Item Value Reference Range Interpretation Comments MAGNESIUM (BEAKER) (test code = 2.0 mg/dL 1.5-3.0 627) POCT-GLUCOSE [id number] 01:19:00 Test Item Value Reference Range Interpretation Comments POC-GLUCOSE METER 152 mg/dL 70-110 H TESTED AT [facility] [address] (BEAKER) (test code [facility] = 1538) [place] [address] POCT-GLUCOSE [id number] 01:07:00 Test Item Value Reference Range Interpretation Comments POC-GLUCOSE METER 145 mg/dL 70-110 H TESTED AT [facility] [address] (BEAKER) (test code [facility] = 1538) [place] [address] POCT-GLUCOSE [id number] 01:07:00 Test Item Value Reference Range Interpretation Comments POC-GLUCOSE METER 165 mg/dL 70-110 H TESTED AT [facility] [address] (BEAKER) (test code [facility] = 1538) [place] [address] POCT-GLUCOSE [id number] 01:07:00 Test Item Value Reference Range Interpretation Comments POC-GLUCOSE METER 163 mg/dL 70-110 H TESTED AT [facility] [address] (BEAKER) (test code [facility] = 1538) [place] [address] BASIC METABOLIC [id number] 20:59:00 Test Item Value Reference Range Interpretation [...] S NOT APPLICABLE FOR DIALYSIS PATIEN TS. [id number] 20:58:00 Test Item Value Reference Range Interpretation Comments MAGNESIUM (BEAKER) 1.8 mg/dL 1.5-3.0 Specimen slightly (test code = 627) hemolyzed [id number] 20:58:00 Test Item Value Reference Range Interpretation Comments PHOSPHORUS (BEAKER) 2.2 mg/dL 2.5-4.5 L Specimen slightly (test code = 604) hemolyzed POCT-GLUCOSE [id number] 18:02:00 Test Item Value Reference Range Interpretation Comments POC-GLUCOSE METER 176 mg/dL 70-110 H TESTED AT [facility] [address] (BEAKER) (test code [facility] = 1538) [place] [address] [id number] 16:46:00 Test Item Value Reference Range Interpretation Comments MAGNESIUM (BEAKER) 2.1 mg/dL 1.5-3.0 Specimen slightly (test code = 627) hemolyzed [id number] 16:46:00 Test Item Value Reference Range Interpretation Comments PHOSPHORUS (BEAKER) 2.1 mg/dL 2.5-4.5 L Specimen slightly (test code = 604) hemolyzed BASIC METABOLIC [id number] 16:46:00 Test Item Value Reference Range Interpretation [...] NOT APPLICABLE FOR DIALYSIS PATIEN TS. CALCIUM, [id number] 16:21:00 Test Item Value Reference Range Interpretation Comments CALCIUM IONIZED (BEAKER) (test 1.13 mmol/L 1.12-1.27 code = 698) PH, BLOOD (BEAKER) (test code = 7.30 1810) Check serum Ionized Calcium level after 4 hours after IV Calcium replacement. POCT-GLUCOSE [id number] 16:12:00 Test Item Value Reference Range Interpretation Comments POC-GLUCOSE METER 191 mg/dL 70-110 H TESTED AT [facility] [address] (BEAKER) (test code [facility] = 1538) [place] [address] POCT-GLUCOSE [id number] 15:20:00 Test Item Value Reference Range Interpretation Comments POC-GLUCOSE METER 181 mg/dL 70-110 H TESTED AT [facility] [address] (BEAKER) (test code [facility] = 1538) [place] [address] POCT-GLUCOSE [id number] 14:15:00 Test Item Value Reference Range Interpretation Comments POC-GLUCOSE METER 169 mg/dL 70-110 H TESTED AT [facility] [address] (BEAKER) (test code [facility] = 1538) [place] [address] BASIC METABOLIC [id number] 13:44:00 Test Item Value Reference Range Interpretation [...] NOT APPLICABLE FOR DIALYSIS PATIEN TS. POCT-GLUCOSE [id number] 13:24:00 Test Item Value Reference Range Interpretation Comments POC-GLUCOSE METER 157 mg/dL 70-110 H TESTED AT [facility] [address] (BEAKER) (test code [facility] = 1538) [place] [address] POCT-GLUCOSE [id number] 12:34:00 Test Item Value Reference Range Interpretation Comments POC-GLUCOSE METER 131 mg/dL 70-110 H TESTED AT [facility] [address] (BEAKER) (test code [facility] = 1538) [place] [address] POCT-GLUCOSE [id number] 11:39:00 Test Item Value Reference Range Interpretation Comments POC-GLUCOSE METER 160 mg/dL 70-110 H TESTED AT [facility] [address] (BEAKER) (test code [facility] = 1538) [place] [address] [id number] 11:13:00 Test Item Value Reference Range Interpretation Comments PROCALCITONIN (BEAKER) (test code = < ng/mL <0.05 3036) SEPSIS RISK (ng/mL)Low: 0.05-0.50Intermediate: 0.51-2.00High: >=2.01POCT-GLUCOSE [id number] 10:40:00 Test Item Value Reference Range Interpretation Comments POC-GLUCOSE METER 202 mg/dL 70-110 H TESTED AT [facility] [address] (BEAKER) (test code [facility] = 1538) [place] [address] [id number] 10:04:00 Test Item Value Reference Range Interpretation Comments PHOSPHORUS (BEAKER) 1.4 mg/dL 2.5-4.5 LL Specimen slightly (test code = 604) hemolyzed BASIC METABOLIC [id number] 10:04:00 Test Item Value Reference Range Interpretation [...] hemolyzed GLUCOSE RANDOM 224 mg/dL 70-110 H ([facility]) (test code = 652) CALCIUM (BEAKER) 7.9 mg/dL 8.5-10.5 L (test code = 697) EGFR (BEAKER) (test 83 mL/min/1.73 ESTIMA PRACHI GFR IS code = 1092) sq m NOT ACCURATE CREATININE CLEARANCE IN PREDICTING GLOMERULAR FILTRATION RATE . ESTIMATED GFR I S NOT APPLICABLE FOR DIALYSIS PATIEN TS. [id number] 10:02:00 Test Item Value Reference Range Interpretation Comments MAGNESIUM (BEAKER) 1.8 mg/dL 1.5-3.0 Specimen slightly (test code = 627) hemolyzed POCT-GLUCOSE [id number] 09:36:00 Test Item Value Reference Range Interpretation Comments POC-GLUCOSE METER 212 mg/dL 70-110 H TESTED AT [facility] [id number] ([facility]) (test code [facility] = 1538) [place] [id number] POCT-GLUCOSE [id number] 08:43:00 Test Item Value Reference Range Interpretation Comments POC-GLUCOSE METER 268 mg/dL 70-110 H TESTED AT [facility] [address] ([facility]) (test code [facility] = 1538) [place] [address] [id number] 07:47:00 Test Item Value Reference Range Interpretation Comments POTASSIUM (BEAKER) (test code = 4.0 meq/L 3.5-5.5 379) If last glucose was less than 500, may do bedside glucose instead of serum glucose.[id number] 07:47:00 Test Item Value Reference Range Interpretation Comments GLUCOSE RANDOM ([facility]) (test code 370 mg/dL 70-110 H = 652) If last glucose was less than 500, may do bedside glucose instead of serum glucose.POCT-GLUCOSE [id number] 07:31:00 Test Item Value Reference Range Interpretation Comments POC-GLUCOSE METER 328 mg/dL 70-110 H Notified R Evita DAVIS/TESTED AT ([facility]) (test code [facility] [address] [address] = 1538) [facility] [place] [address] POCT-GLUCOSE [id number] 07:31:00 Test Item Value Reference Range Interpretation Comments POC-GLUCOSE METER 414 mg/dL 70-110 HH TESTED AT [facility] [address] (BEAKER) (test code [facility] = 1538) [place] [address] [id number] 06:57:00 Test Item Value Reference Range Interpretation Comments POTASSIUM (BEAKER) (test code = 4.5 meq/L 3.5-5.5 379) [id number] 06:51:00 Test Item Value Reference Range Interpretation Comments GLUCOSE RANDOM (BEAKER) (test code 523 mg/dL 70-110 HH = 652) If last glucose was less than 500, may do bedside glucose instead of serum glucose.URINALYSIS W/ REFLEX URINE [id number] 06:29:00 Test Item Value Reference Range Interpretation [...] (test code = 2795) RAPID INFLUENZA A&B [id number] 06:13:00 Test Item Value Reference Range Interpretation Comments RAPID INFLUENZA A AG (BEAKER) (test Negative Negative code = 1622) RAPID INFLUENZA B AG (BEAKER) (test Negative Negative code = 1623) SCREEN, [id number] 05:58:00 Test Item Value Reference Range Interpretation Comments TEST URINE (BEAKER) (test Negative code = 583) RAD, CHEST, 1 VIEW, NON [id number] 05:52:00Reason for exam:->EMESISReason for exam:->BLOOD SUGAR PROBLEMShould this be performed at the bedside?- >YesIs the patient ?->NoFINAL REPORT Comparison examination: 04/07/2017 No pneumothorax, focal pulmonary consolidation, or significant pleural effusion. Normal cardiomediastinal contours. Normal skeleton and soft tissues. Impression: No acute abnormality. Signed: Joesph Foy Verified Date/Time: 05/18/2017 05:52:18 Reading Location: [address] Transitional Reading Room HEMOGLOBIN [id number] 05:49:00 Test Item Value Reference Range Interpretation Comments HEMOGLOBIN A1C (BEAKER) (test code = 13.2 % 4.3-6.1 H 368) BASIC METABOLIC [id number] 05:28:00 Test Item Value Reference Range Interpretation [...] bedside glucose instead of serum glucose.HEPATIC FUNCTION [id number] 05:27:00 Test Item Value Reference Range Interpretation [...] glucose instead of serum glucose.Specimen slightlylipemicBLOOD GAS, [id number] 05:04:00 Test Item Value Reference Range Interpretation [...] (test code = 1819) 21.0 % KETONE, [id number] 05:03:00 Test Item Value Reference Range Interpretation Comments KETONES, BLOOD (BEAKER) (test code 5.8 mmol/L <0.4 H = 1103) CBC W/PLT COUNT & AUTO [id number] 05:02:00 Test Item Value Reference Range Interpretation [...] L 0.00-0.20 (test code = 417) POCT-GLUCOSE [id number] 04:49:00 Test Item Value Reference Range Interpretation Comments POC-GLUCOSE METER > mg/dL 70-110 HH OUTSIDE ME ASURING (BEAKER) (test code [facility]ANGETES PRACHI AT [facility] [address] = 1538) [facility] [address] BLOOD [id number] 00:00:00 Test Item Value Reference Range Interpretation Comments CULTURE (BEAKER) (test No growth in 5 days code = 1095) BLOOD [id number] 00:00:00 Test Item Value Reference Range Interpretation Comments CULTURE (BEAKER) (test No growth in 5 days code = 1095) URINE [id number] 15:21:00 Test Item Value Reference Range Interpretation Comments CULTURE (BEAKER) (test >100,000 col/mL skin code = 1095) christophe POCT-GLUCOSE [id number] 14:37:00 Test Item Value Reference Range Interpretation Comments POC-GLUCOSE METER 326 mg/dL 70-110 H TESTED AT [facility] ([facility]) (test code = [facility] 1538) [address] POCT-GLUCOSE [id number] 13:26:00 Test Item Value Reference Range Interpretation Comments POC-GLUCOSE METER 331 mg/dL 70-110 H TESTED AT [place] [address] ([facility]) (test code = [facility] 1538) [address] CBC W/PLT COUNT & AUTO [id number] 11:34:00 Test Item Value Reference Range Interpretation [...] COUNTED (BEAKER) (test code = 1351) POCT-GLUCOSE [id number] 11:18:00 Test Item Value Reference Range Interpretation Comments POC-GLUCOSE METER 349 mg/dL 70-110 H TESTED AT [facility] 6720 (BEAKER) (test code = SH[place] 1538) [address] POCT-GLUCOSE [id number] 09:34:00 Test Item Value Reference Range Interpretation Comments POC-GLUCOSE METER 61 mg/dL 70-110 L TESTED AT [place] [address] (BEAKER) (test code = SHARATH Blackwell [facility] [address] 1538) POCT-GLUCOSE [id number] 08:48:00 Test Item Value Reference Range Interpretation Comments POC-GLUCOSE METER 79 mg/dL 70-110 TESTED AT [place] [address] (BEAKER) [facility] [address] 1538) BASIC METABOLIC [id number] 06:12:00 Test Item Value Reference Range Interpretation [...] NOT APPLICABLE FOR DIALYSIS PATIEN TS. KETONE, [id number] 05:43:00 Test Item Value Reference Range Interpretation Comments KETONES, BLOOD (BEAKER) (test code 0.1 mmol/L <0.4 = 1103) POCT-GLUCOSE [id number] 05:39:00 Test Item Value Reference Range Interpretation Comments POC-GLUCOSE METER 366 mg/dL 70-110 H TESTED AT [place] [address] (BEAKER) (test code = [facility] 1538) [address] POCT-GLUCOSE [id number] 22:32:00 Test Item Value Reference Range Interpretation Comments POC-GLUCOSE METER 302 mg/dL 70-110 H TESTED AT [place] [address] ([facility]) (test code = [facility] 1538) [address] POCT-GLUCOSE [id number] 19:15:00 Test Item Value Reference Range Interpretation Comments POC-GLUCOSE METER 273 mg/dL 70-110 H TESTED AT [place] [address] ([facility]) (test code = SHARATH Blackwell [facility] 1538) [address] POCT-GLUCOSE [id number] 17:49:00 Test Item Value Reference Range Interpretation Comments POC-GLUCOSE METER 174 mg/dL 70-110 H TESTED AT [place] [address] ([facility]) (test code = SHARATH Blackwell [facility] 1538) [address] POCT-GLUCOSE [id number] 17:02:00 Test Item Value Reference Range Interpretation Comments POC-GLUCOSE METER 171 mg/dL 70-110 H TESTED AT [place] [address] ([facility]) (test code = [facility] Rosalva [facility] 1538) [address] POCT-GLUCOSE [id number] 15:17:00 Test Item Value Reference Range Interpretation Comments POC-GLUCOSE METER 135 mg/dL 70-110 H TESTED AT [place] [address] ([facility]) (test code = [facility] Rosalva [facility] 1538) [address] POCT-GLUCOSE [id number] 13:10:00 Test Item Value Reference Range Interpretation Comments POC-GLUCOSE METER 61 mg/dL 70-110 L TESTED AT [place] [address] ([facility]) (test code = [facility] Rosalva [facility] [address] 1538) POCT-GLUCOSE [id number] 11:21:00 Test Item Value Reference Range Interpretation Comments POC-GLUCOSE METER 57 mg/dL 70-110 L Notified R Evita DAVIS/TESTED AT ([facility]) (test code = [address] 1538) [facility] [address] POCT-GLUCOSE [id number] 08:02:00 Test Item Value Reference Range Interpretation Comments POC-GLUCOSE METER 68 mg/dL 70-110 L Notified R Evita DAVIS/TESTED AT ([facility]) (test code = [address] 1538) [facility] 7[address] 0 CBC W/PLT COUNT & AUTO [id number] 08:02:00 Test Item Value Reference Range Interpretation Comments WHITE BLOOD CELL COUNT ([facility]) 6.6 K/ L 3.5-10.5 (test code = 775) RED BLOOD CELL COUNT ([facility]) 3.97 M/ L 3.93-5.22 (test code = [...] PERCENT (BEAKER) (test code = 2801) POCT-GLUCOSE [id number] 06:58:00 Test Item Value Reference Range Interpretation Comments POC-GLUCOSE METER 95 mg/dL 70-110 TESTED AT [place] [address] ([facility]) (test code = [facility] Rosalva [facility] [address] 1538) POCT-GLUCOSE [id number] 06:17:00 Test Item Value Reference Range Interpretation Comments POC-GLUCOSE METER 150 mg/dL 70-110 H TESTED AT [place] [address] ([facility]) (test code = [facility] 1538) [address] POCT-GLUCOSE [id number] 05:18:00 Test Item Value Reference Range Interpretation Comments POC-GLUCOSE METER 101 mg/dL 70-110 TESTED AT [place] [address] ([facility]) (test code = [facility] 1538) [address] POCT-GLUCOSE [id number] 05:07:00 Test Item Value Reference Range Interpretation Comments POC-GLUCOSE METER 119 mg/dL 70-110 H TESTED AT [place] [address] ([facility]) (test code = [facility] 1538) [address] BASIC METABOLIC [id number] 04:52:00 Test Item Value Reference Range Interpretation [...] NOT APPLICABLE FOR DIALYSIS PATIEN TS. POCT-GLUCOSE [id number] 04:05:00 Test Item Value Reference Range Interpretation Comments POC-GLUCOSE METER 48 mg/dL 70-110 L TESTED AT [place] [address] ([facility]) (test code = [facility] [address] 1538) POCT-GLUCOSE [id number] 02:30:00 Test Item Value Reference Range Interpretation Comments POC-GLUCOSE METER 181 mg/dL 70-110 H TESTED AT [place] [address] ([facility]) (test code = SHARATH Blackwell [facility] 1538) [address] POCT-GLUCOSE [id number] 02:10:00 Test Item Value Reference Range Interpretation Comments POC-GLUCOSE METER 37 mg/dL 70-110 LL Will Repea t Test/TESTED (BEAKER) (test code = AT [facility] [address] [place] [address] 1538) [facility] [address] POCT-GLUCOSE [id number] 01:07:00 Test Item Value Reference Range Interpretation Comments POC-GLUCOSE METER 87 mg/dL 70-110 TESTED AT [place] [address] ([facility]) (test code = SHARATH Blackwell [place] [id number] 1538) BASIC METABOLIC [id number] 00:44:00 Test Item Value Reference Range Interpretation [...] NOT APPLICABLE FOR DIALYSIS PATIEN TS. POCT-GLUCOSE [id number] 00:30:00 Test Item Value Reference Range Interpretation Comments POC-GLUCOSE METER 96 mg/dL 70-110 TESTED AT [place] [address] ([facility]) (test code = SHARATH Blackwell [facility] [address] 1538) POCT-GLUCOSE [id number] 23:54:00 Test Item Value Reference Range Interpretation Comments POC-GLUCOSE METER 91 mg/dL 70-110 TESTED AT [place] [address] (BEAKER) (test code = SHARATH Blackwell [facility] [address] 1538) POCT-GLUCOSE [id number] 23:12:00 Test Item Value Reference Range Interpretation Comments POC-GLUCOSE METER 48 mg/dL 70-110 L TESTED AT [place] [address] (BEAKER) (test code = [facility] Rosalva [facility] [address] 1538) POCT-GLUCOSE [id number] 21:58:00 Test Item Value Reference Range Interpretation Comments POC-GLUCOSE METER 94 mg/dL 70-110 TESTED AT [place] [address] (BEAKER) (test code = [facility] [address] 1538) BASIC METABOLIC [id number] 21:08:00 Test Item Value Reference Range Interpretation [...] NOT APPLICABLE FOR DIALYSIS PATIEN TS. POCT-GLUCOSE [id number] 20:57:00 Test Item Value Reference Range Interpretation Comments POC-GLUCOSE METER 165 mg/dL 70-110 H TESTED AT [place] [id number] (BEAKER) (test code = [facility] 1538) [address] [id number] 20:55:00 Test Item Value Reference Range Interpretation Comments POTASSIUM (BEAKER) (test code = 3.6 meq/L 3.5-5.1 379) URINALYSIS W/ [id number] 20:40:00 Test Item Value Reference Range Interpretation [...] 516) SOURCE(BEAKER) (test code = 2795) POCT-GLUCOSE [id number] 19:59:00 Test Item Value Reference Range Interpretation Comments POC-GLUCOSE METER 282 mg/dL 70-110 H TESTED AT [facility] 67 ([facility]) (test code = SHARATH Blackwell [facility] 153) [address] POCT-GLUCOSE [id number] 19:02:00 Test Item Value Reference Range Interpretation Comments POC-GLUCOSE METER 374 mg/dL 70-110 H Notified Rosalva Jama MD/TESTED (BEAKER) (test code = AT [facility] [address] [place], [place] [address]) [facility] 7[address] 0 CBC W/PLT COUNT & AUTO [id number] 18:56:00 Test Item Value Reference Range Interpretation [...] PERCENT (BEAKER) (test code = 2801) POCT-GLUCOSE [id number] 18:03:00 Test Item Value Reference Range Interpretation Comments POC-GLUCOSE METER 294 mg/dL 70-110 H TESTED AT [facility] 6720 ([facility]) (test code = SHARATH [place] 1538) [address] HEMOGLOBIN [id number] 17:45:00 Test Item Value Reference Range Interpretation Comments HEMOGLOBIN A1C ([facility]) (test code = 12.6 % 4.3-6.1 H 368) RAD, CHEST, 1 VIEW, NON [id number] 17:20:00Reason for exam:->sobShould this be performed at [...] Mckeon Verified Date/Time: 04/07/2017 17:20:50 Reading Location: [address] Radiology Reading Room TSH/FREE T4 IF [id number] 17:04:00 Test Item Value Reference Range Interpretation Comments THYROID STIMULATING HORMONE 0.95 uIU/mL 0.35-4.94 ([facility]) (test code = 772) TROPONIN [id number] 16:51:00 Test Item Value Reference Range Interpretation [...] renalfailure, acidosis, acute neurological disease, and persistent tachyarrhythmia.[id number] 16:45:00 Test Item Value Reference Range Interpretation Comments LIPASE (BEAKER) (test code = 749) 33 U/L 8-78 [id number] 16:45:00 Test Item Value Reference Range Interpretation Comments AMYLASE (BEAKER) (test code = 349) 66 U/L 25-125 BASIC METABOLIC [id number] 16:45:00 Test Item Value Reference Range Interpretation [...] DIALYSIS PATIEN TS. LACTIC ACID, VENOUS, WHOLE [id number] 16:45:00 Test Item Value Reference Range Interpretation Comments LACTATE BLOOD VENOUS (2) (BEAKER) 1.1 mmol/L 0.5-2.2 (test code = 2872) Effective 12/05/2015: Units/Reference Range ChangeNew: 0.5-2.2 mmol/L Previous: 5-20 mg/dLKETONE, [id number] 16:41:00 Test Item Value Reference Range Interpretation Comments KETONES, BLOOD (BEAKER) (test code 2.1 mmol/L <0.4 H = 1103) BLOOD GAS, [id number] 16:27:00 Test Item Value Reference Range Interpretation Comments PH VENOUS (BEAKER) (test code = 7.36 7.32-7.42 701) PCO2 VENOUS (BEAKER) (test code = 41 mmHg 41-51 755) PO2 VENOUS ([facility]) (test code = 18 mmHg 25-40 L 702) O2 SATURATION VENOUS ([facility]) 26.4 % 40.0-70.0 L (test code = 703) HCO3 VENOUS ([facility]) (test code = 23 mmol/L 21-29 705) BASE EXCESS VENOUS ([facility]) (test -2.5 mmol/L -2.0-3.0 L code = 704) PATIENT TEMPERATURE ([facility]) 37.0 C (test code = 1818) POCT-GLUCOSE [id number] 16:20:00 Test Item Value Reference Range Interpretation Comments POC-GLUCOSE METER 156 mg/dL 70-110 H TESTED AT [place] [address] ([facility]) ([facility] 1538) [address] POCT-GLUCOSE [id number] 15:28:00 Test Item Value Reference Range Interpretation Comments POC-GLUCOSE METER 101 mg/dL 70-110 TESTED AT [place] [address] ([facility]) (test code = [facility] Rosalva [facility] 1538) [address]
[2020-11-27 11:26] LABS: Absolute Lymphocytes (CBC) 2.2 K/uL (0.7-4.9); Basophils % 0.9 % (0-1.3); Hematocrit 40.3 % (36.0-45.0); Lymphocytes % 21.2 % (15.3-44.8); MPV 7.7 fL (7.6-11.3); RBC Red Blood Cell Count 4.75 M/uL (3.86-4.86)
[2020-11-27] MEDS ORDERED: NA CHLORIDE 0.9% 1,000 ML ONE (11:39)
[2020-11-27] MEDS ORDERED: ONDANSETRON 4 MG/2 ML VIAL ONE (11:39)
[2020-11-27 11:54] LABS: ALT/SGPT 23 U/L (12-78); AST/SGOT 11 U/L (15-37); Albumin 3.8 g/dL (3.4-5.0); Alkaline Phosphatase 188 U/L (45-117); BUN Blood Urea Nitrogen 24 mg/dL (7-18); Bicarbonate 15 mmol/L (21-32); Bilirubin Direct < 0.1 mg/dL (0-0.2); Bilirubin Total 0.4 mg/dL (0.2-1.0); Lipase 111 U/L (73-393); Protein, Total 8.5 g/dL (6.4-8.2); Sodium Level 131 mmol/L (136-145)
[2020-11-27 11:57] LABS: Glucose Level 447 mg/dL (74-106)
--- NOTE | 2020-11-27 12:13 | EDPHYS ---
Physician Documentation [facility] Name: Salome Santacruz Age: 20 yrs Sex: Female : 2000 Arrival Date: 11/27/2020 Time: 10:42 Bed 24 Private MD: ED Physician Rigoberto Mccoy HPI: 11/27 12:46 This 20 yrs old Female presents to ER via Ambulatory with complaints of dka, tw4 Vomiting. 12:46 The patient presents to the emergency department with nausea. Onset: The tw4 symptoms/episode began/occurred today. Possible causes: unknown. The symptoms are aggravated by nothing. The symptoms are alleviated by nothing. Associated signs and symptoms: The patient has no apparent associated signs or symptoms. Severity of symptoms: At their worst the symptoms were moderate in the emergency department the symptoms are unchanged. The patient has not experienced similar symptoms in the past. 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 - Social history:: Smoking status: Patient denies any tobacco usage or history of. ROS: 12:46 Eyes: Negative for injury, pain, redness, and discharge, Cardiovascular: Negative for tw4 chest pain, palpitations, and edema, Respiratory: Negative for shortness of breath, cough, wheezing, and pleuritic chest pain. 12:46 Back: Negative for injury and pain, MS/Extremity: Negative for injury and deformity, Skin: Negative for injury, rash, and discoloration, Neuro: Negative for headache, weakness, numbness, tingling, and seizure. 12:46 Constitutional: Positive for body aches, Negative for chills, fatigue, fever, malaise, poor PO intake, weight loss. 12:46 Abdomen/GI: Positive for nausea, Negative for abdominal pain, nausea and vomiting, nausea, vomiting, and diarrhea, vomiting, diarrhea, constipation, abdominal cramps, abdominal distension, anorexia, dysphagia, hematemesis, black/tarry stool, rectal pain, rectal bleeding, bowel incontinence, flatulence. Exam: 12:46 Constitutional: This is a well developed, well nourished patient who is awake, alert, tw4 and in no acute distress. Head/Face: Normocephalic, atraumatic. Chest/axilla: Normal chest wall appearance and motion. Nontender with no deformity. No lesions are appreciated. Cardiovascular: Regular rate and rhythm with a normal S1 and S2. No gallops, murmurs, or rubs. Normal PMI, no JVD. No pulse deficits. Respiratory: Lungs have equal breath sounds bilaterally, clear to auscultation and percussion. No rales, rhonchi or wheezes noted. No increased work of breathing, no retractions or nasal flaring. Abdomen/GI: Soft, non-tender, with normal bowel sounds. No distension or tympany. No guarding or rebound. No evidence of tenderness throughout. Back: No spinal tenderness. No costovertebral tenderness. Full range of motion. Skin: Warm, dry with normal turgor. Normal color with no rashes, no lesions, and no evidence of cellulitis. MS/ Extremity: Pulses equal, no cyanosis. Neurovascular intact. Full, normal range of motion. Neuro: Awake and alert, GCS 15, oriented to person, place, time, and situation. Cranial nerves II-XII grossly intact. Motor strength 5/5 in all extremities. Sensory grossly intact. Cerebellar exam normal. Normal gait. Vital Signs: 11:03 BP 112 / 92; Pulse 114; Resp 18; Temp 97.9; Pulse Ox 99% on R/A; Weight 65.77 kg; em Height 5 ft. 4 in. (162.56 cm); Pain 7/10; 13:18 BP 120 / 75; Pulse 99; Resp 17 S; Pulse Ox 100% on R/A; jd3 14:36 BP 101 / 65; Pulse 94; Resp 17 S; Pulse Ox 99% on R/A; jd3 15:30 BP 125 / 74; Pulse 95; Resp 17 S; Pulse Ox 99% on R/A; jd3 16:30 BP 102 / 64; Pulse 89; Resp 16 S; Pulse Ox 99% on R/A; jd3 18:31 BP 95 / 59; Pulse 91; Resp 16 S; Pulse Ox 100% on R/A; jd3 11:03 Body Mass Index 24.89 (65.77 kg, 162.56 cm) em MDM: 10:47 Patient medically screened. tw4 12:46 Differential diagnosis: Nonspecific abd pain, gastritis, cholecystitis. Data reviewed: tw4 vital signs, nurses notes. Data interpreted: Pulse oximetry: Interpretation: normal. Counseling: I had a detailed discussion with the patient and/or guardian regarding: the historical points, exam findings, and any diagnostic results supporting the discharge/admit diagnosis. Special discussion: I discussed with the patient/guardian in detail that at this point there is no indication for admission to the hospital. It is understood, however, that if the symptoms persist or worsen the patient needs to return immediately for re-evaluation. 11/27 10:53 Order name: Basic Metabolic Panel; Complete Time: 12:07 [facility] 11/27 12:07 Interpretation: Normal except: GFR 62; BUN 24; GLUC 447; CO2 15; NA 131. tw 11/27 10:53 Order name: CBC with Diff; Complete Time: 12:07 tw4 11/27 12:07 Interpretation: Abnormal: WBC 10.30; PLT 371. tw11/27 10:53 Order name: Hepatic Function; Complete Time: 12:07 [facility] 11/27 12:07 Interpretation: Normal except: AST 11; ALK 188; TP 8.5; GLOB 4.7; A/G 0.8. tw 11/27 10:53 Order name: Lipase; Complete Time: 12:07 [facility] 11/27 12:07 Interpretation: Within normal limits: LIP 111. 11/27 10:53 Order name: Ketone, Serum; Complete Time: 12:07 [facility] 11/27 12:07 Interpretation: Abnormal. 11/27 11:30 Order name: Glucose, Ancillary Testing; Complete Time: 12:09 EDNM 11/27 12:23 Order name: COVID-19 : Document "Date of Symptom Onset" if Symptomatic. bp 11/27 13:41 Order name: SARS-COV-2 RT PCR EDNM 11/27 13:55 Order name: Glucose, Ancillary Testing EDNM 11/27 14:59 Order name: Glucose, Ancillary Testing EDNM 11/27 16:09 Order name: Glucose, Ancillary Testing EDNM 11/27 17:19 Order name: Glucose, Ancillary Testing EDMS 11/27 18:30 Order name: Glucose, Ancillary Testing EDMS 11/27 19:55 Order name: Glucose, Ancillary Testing EDMS 11/27 20:42 Order name: Glucose, Ancillary Testing EDMS 11/27 21:02 Order name: Basic Metabolic Panel EDMS 11/27 21:06 Order name: Acetone Level EDMS 11/27 21:35 Order name: Glucose, Ancillary Testing EDMS 11/27 23:24 Order name: Glucose, Ancillary Testing EDMS 11/27 23:59 Order name: Glucose, Ancillary Testing EDMS 11/28 00:17 Order name: Basic Metabolic Panel EDMS 11/28 00:20 Order name: Acetone Level EDMS 11/28 00:41 Order name: Glucose, Ancillary Testing EDMS 11/28 05:18 Order name: Glucose, Ancillary Testing EDMS 11/28 05:33 Order name: CBC with Automated Diff EDNM 11/27 10:53 Order name: IV Saline Lock; Complete Time: 11:17 tw4 11/27 10:53 Order name: Labs collected and sent; Complete Time: 11:17 tw4 Administered Medications: 11:33 Drug: NS 0.9% 1000 ml Route: IV; Rate: 1 bolus; Site: left antecubital; jd3 12:30 Follow up: Response: No adverse reaction; IV Status: Completed infusion; IV Intake: jd3 1000ml 11:33 Drug: Zofran (Ondansetron) 4 mg Route: IVP; Site: left antecubital; jd3 12:30 Follow up: Response: No adverse reaction jd3 13:10 Drug: Insulin Drip - (Insulin Regular Human 100 units, NS 0.9% 100 ml) {Co-Signature: jquincy ap3 (Manda Read RN).} Route: IV; Rate: calculated rate; Site: left antecubital; 13:13 Follow up: Response: No adverse reaction; IV Status: Infusion continued upon admission jd3 14:56 Drug: D50W 25 ml Route: IVP; Site: left antecubital; jd3 15:50 Follow up: Response: No adverse reaction jd3 17:17 Drug: D50W 25 ml Route: IVP; Site: left antecubital; jd3 18:00 Follow up: Response: No adverse reaction jd3 18:36 Drug: Tylenol 500 mg Route: PO; jd3 18:50 Follow up: Response: No adverse reaction jd3 Disposition: 11/27/20 12:12 Hospitalization ordered by Rodriguez Lyle for Inpatient Admission. Preliminary diagnosis is Diabetes mellitus due to underlying condition with ketoacidosis without coma. - Bed requested for Telemetry/MedSurg (Inpatient). - Status is Inpatient Admission. iw - Condition is Fair. - Problem is new. - Symptoms are unchanged. Signatures: Dispatcher [employer] EDNM Sarah Tavares RN Oanh Verdin RN RN Angel Dumont, RN RN Pauline Abraham RN Martinez Alvarenga RN Rigoberto Pantoja MD MD tw4 Manda Read RN ap3 Corrections: (The following items were deleted from the chart) 12:55 12:24 CORONAVIRUS ordered. EDNM EDNM 19:20 12:12 Hospitalization Ordered by Rodriguez Lyle DO for Inpatient Admission. Preliminary diagnosis is Diabetes mellitus due to underlying condition with ketoacidosis without coma. Bed requested for Intensive Care Unit. Status is Inpatient Admission. Condition is Fair. Problem is new. Symptoms are unchanged. 4 11/28 05:40 11/27 19:20 11/27/2020 12:12 Hospitalization Ordered by Rodriguez Lyle DO for Inpatient mw Admission. Preliminary diagnosis is Diabetes mellitus due to underlying condition with ketoacidosis without coma. Bed requested for [facility] ER HOLD. Status is Inpatient Admission. Condition is Fair. Problem is new. Symptoms are unchanged. 11/28 06:05 05:40 11/27/2020 12:12 Hospitalization Ordered by Rodriguez Lyle DO for Inpatient iw Admission. Preliminary diagnosis is Diabetes mellitus due to underlying condition with ketoacidosis without coma. Bed requested for Telemetry/MedSurg (Inpatient). Status is Inpatient Admission. Condition is Fair. Problem is new. Symptoms are unchanged.
--- NOTE | 2020-11-27 12:13 | ER ---
Nurse's Notes [facility] Name: Salome Santacruz Age: 20 yrs Sex: Female : 2000 Arrival Date: 11/27/2020 Time: 10:42 Bed 24 Private MD: Diagnosis: Diabetes mellitus due to underlying condition with ketoacidosis without coma Presentation: 11/27 11:03 Chief complaint: Patient states: high BGL read about 45 minutes ago, also reports N/V em body aches, also reports right wrist/forearm tattoo that might be infected as well. Coronavirus screen: Client denies travel out of the [place] in the last 14 days. Ebola Screen: Patient negative for fever greater than or equal to 101.5 degrees Fahrenheit, and additional compatible Ebola Virus Disease symptoms Patient denies exposure to infectious person. Patient denies travel to an Ebola-affected area in the 21 days before illness onset. No symptoms or risks identified at this time. Initial Sepsis Screen: Does the patient meet any 2 criteria? HR > 90 bpm. Does the patient have a suspected source of infection? Yes: Skin breakdown/wound. Risk Assessment: Do you want to hurt yourself or someone else? Patient reports no desire to harm self or others. Onset of symptoms was November 27, 2020. 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 - Social history:: Smoking status: Patient denies any tobacco usage or history of. Screenin:19 Abuse screen: Denies threats or abuse. Nutritional screening: No deficits noted. jd3 Tuberculosis screening: No symptoms or risk factors identified. Fall Risk Ambulatory Aid- None/Bed Rest/Nurse Assist (0 pts). Gait- Normal/Bed Rest/Wheelchair (0 pts) Mental Status- Oriented to own ability (0 pts). Total [place] Fall Scale indicates No Risk (0-24 pts). Assessment: 11:10 General: Appears in no apparent distress. uncomfortable, Behavior is calm, cooperative, jd3 appropriate for age. Pain: Complains of pain in abdomen Quality of pain is described as aching. Neuro: Level of Consciousness is awake, alert, obeys commands, Oriented to person, place, time, situation. Cardiovascular: Denies chest pain, Capillary refill < 3 seconds Patient's skin is warm and dry. Respiratory: Airway is patent Respiratory effort is even, unlabored, Respiratory pattern is regular, symmetrical. GI: Abdomen is round non-distended, Abd is soft and non tender X 4 quads. Reports upper abdominal pain, cramping, nausea. : No signs and/or symptoms were reported regarding the genitourinary system. EENT: No signs and/or symptoms were reported regarding the EENT system. Derm: Skin is intact, Skin is dry, Skin is normal, Skin temperature is warm. Musculoskeletal: Circulation, motion, and sensation intact. Range of motion: intact in all extremities. 12:15 Reassessment: Patient appears in no apparent distress at this time. Patient and/or jd3 family updated on plan of care and expected duration. Pain level reassessed. Patient is alert, oriented x 3, equal unlabored respirations, skin warm/dry/pink. Patient states feeling better. 13:18 Reassessment: Patient appears in no apparent distress at this time. No changes from jd3 previously documented assessment. Patient and/or family updated on plan of care and expected duration. Pain level reassessed. Patient is alert, oriented x 3, equal unlabored respirations, skin warm/dry/pink. 14:36 Reassessment: Patient appears in no apparent distress at this time. Patient and/or jd3 family updated on plan of care and expected duration. Pain level reassessed. Patient is alert, oriented x 3, equal unlabored respirations, skin warm/dry/pink. 15:30 Reassessment: Patient appears in no apparent distress at this time. Patient and/or jd3 family updated on plan of care and expected duration. Pain level reassessed. Patient is alert, oriented x 3, equal unlabored respirations, skin warm/dry/pink. 16:30 Reassessment: Patient appears in no apparent distress at this time. Patient and/or jd3 family updated on plan of care and expected duration. Pain level reassessed. Patient is alert, oriented x 3, equal unlabored respirations, skin warm/dry/pink. awaiting admission orders. 17:30 Reassessment: Patient appears in no apparent distress at this time. No changes from jd3 previously documented assessment. Patient and/or family updated on plan of care and expected duration. Pain level reassessed. Patient is alert, oriented x 3, equal unlabored respirations, skin warm/dry/pink. 18:30 Reassessment: Patient appears in no apparent distress at this time. Patient and/or jd3 family updated on plan of care and expected duration. Pain level reassessed. Patient is alert, oriented x 3, equal unlabored respirations, skin warm/dry/pink. pt reporting headache, hospitalist Dl RN BSN notified, order received, see MAR. Vital Signs: 11:03 BP 112 / 92; Pulse 114; Resp 18; Temp 97.9; Pulse Ox 99% on R/A; Weight 65.77 kg; em Height 5 ft. 4 in. (162.56 cm); Pain 7/10; 13:18 BP 120 / 75; Pulse 99; Resp 17 S; Pulse Ox 100% on R/A; jd3 14:36 BP 101 / 65; Pulse 94; Resp 17 S; Pulse Ox 99% on R/A; jd3 15:30 BP 125 / 74; Pulse 95; Resp 17 S; Pulse Ox 99% on R/A; jd3 16:30 BP 102 / 64; Pulse 89; Resp 16 S; Pulse Ox 99% on R/A; jd3 18:31 BP 95 / 59; Pulse 91; Resp 16 S; Pulse Ox 100% on R/A; jd3 11:03 Body Mass Index 24.89 (65.77 kg, 162.56 cm) em ED Course: 10:42 Patient arrived in ED. am2 10:46 Rigoberto Mccoy MD is Attending Physician. tw4 11:05 Triage completed. em 11:06 Arm band placed on. em 11:09 Martinez Harris, VI is Primary Nurse. jd3 11:21 Inserted saline lock: 20 gauge in left antecubital area, using aseptic technique. Blood jd3 collected. 12:12 Rodriguez Lyle DO is Hospitalizing Provider. tw4 13:19 Patient has correct armband on for positive identification. Bed in low position. Call jd3 light in reach. Side rails up X 1. Adult w/ patient. Pulse ox on. NIBP on. Administered Medications: 11:33 Drug: NS 0.9% 1000 ml Route: IV; Rate: 1 bolus; Site: left antecubital; jd3 12:30 Follow up: Response: No adverse reaction; IV Status: Completed infusion; IV Intake: jd3 1000ml 11:33 Drug: Zofran (Ondansetron) 4 mg Route: IVP; Site: left antecubital; jd3 12:30 Follow up: Response: No adverse reaction jd3 13:10 Drug: Insulin Drip - (Insulin Regular Human 100 units, NS 0.9% 100 ml) {Co-Signature: anu ap3 (Manda Read RN).} Route: IV; Rate: calculated rate; Site: left antecubital; 13:13 Follow up: Response: No adverse reaction; IV Status: Infusion continued upon admission jd3 14:56 Drug: D50W 25 ml Route: IVP; Site: left antecubital; jd3 15:50 Follow up: Response: No adverse reaction jd3 17:17 Drug: D50W 25 ml Route: IVP; Site: left antecubital; jd3 18:00 Follow up: Response: No adverse reaction jd3 18:36 Drug: Tylenol 500 mg Route: PO; jd3 18:50 Follow up: Response: No adverse reaction jd3 Intake: 12:30 IV: 1000ml; Total: 1000ml. jd3 Outcome: 12:12 Decision to Hospitalize by Provider. tw4 11/28 06:05 Patient left the ED. iw Signatures: Angel Dumont RN RN Pauline Abraham RN Manda Ordonez Jonathon, RN RN Rigoberto Olivares MD MD tw4 Manda Read RN ap3 Corrections: (The following items were deleted from the chart) 11/27 16:55 16:53 BP 125 / 74; Pulse 95bpm; Resp 17bpm; Spontaneous; Pulse Ox 99% RA; jd3 jd3
[2020-11-27] MEDS ORDERED: INSULIN -REGULAR HUMAN 100 UNIT in NA CHLORIDE 0.9% 100 ML IV SCH (13:00)
[2020-11-27] MEDS ORDERED: D50W 25 GM/50 ML SYRINGE IV ONE ×2 (15:10→17:28)
--- NOTE | 2020-11-27 15:16 | P.HP ---
Certification for Inpatient Patient admitted to: Inpatient With expected LOS: >2 Midnights Patient will require the following post-hospital care: None Practitioner: I am a practitioner with admitting privileges, knowledge of patient current condition, hospital course, and medical plan of care. Services: Services provided to patient in accordance with Admission requirements found in Title 42 Section 412.3 of the Code of Federal Regulations Patient History Date of Service: 11/27/20 Reason for admission: Nausea and Vomitting History of Present Illness: Patient is a 20 year old female with a PMHx significant for DM 1, Anxiety disorder, depression who presents with c\\o of nausea and vomiting onset this am Patient reported associated s\\s of fatigue, cough and malaise. Patient denies any other s\\s. Symptoms are aggravated or relieved by nothing. Patient decided to present to the hospital due to worsening symptoms. Off note patient reported that she was in DKA 2 months ago. Patient reports compliance with home medications. Allergies acetaminophen [From Midol] Allergy (Verified 08/21/16 08:55) "bumps in my mouth" latex Allergy (Verified 08/21/16 08:55) Rash pamabrom [From Midol] Allergy (Verified 08/21/16 08:55) "bumps in my mouth" promethazine [From Phenergan] Allergy (Verified 04/20/19 23:18) Unknown Home Medications: Insulin Detemir [Levemir] 16 units SQ DAILY 04/20/19 Dicyclomine [Bentyl*] 10 mg PO Q6HP PRN 11/27/20 Folic Acid 1,000 mcg PO DAILY 11/27/20 Insulin NPH Human Isophane [Humulin N] 1 units SQ AC 11/27/20 Insulin Regular, Human [Humulin R U-500 Kwikpen] 1 units SQ AC 11/27/20 - Past Medical/Surgical History Has patient received pneumonia vaccine in the past: No Diabetic: Yes -: Type 1 DM -: -: [place] Teeth removed -: I&D - Family History Father History Unknown: Yes Mother History Unknown: Yes - Social History Smoking Status: Never smoker Alcohol use: Yes CD- Drugs: No Caffeine use: Yes Place of Residence: Home Review of Systems General: Other (Fatigue, malaise ) Eyes: Unremarkable ENT: Unremarkable Respiratory: Cough Cardiovascular: Unremarkable Gastrointestinal: Nausea, Vomiting Genitourinary: Unremarkable Musculoskeletal: Unremarkable Integumentary: Unremarkable Neurological: Unremarkable Lymphatics: Unremarkable Physical Examination - Physical Exam General: Alert, In no apparent distress, Oriented x3 HEENT: Atraumatic, PERRLA, EOMI, Sclerae nonicteric Neck: Supple, 2+ carotid pulse no bruit, No LAD, Without JVD or thyroid abnormality Respiratory: Clear to auscultation bilaterally, Normal air movement Cardiovascular: Regular rate/rhythm, Normal S1 S2 Gastrointestinal: Normal bowel sounds, Non-distended, No tenderness Musculoskeletal: No clubbing, No swelling, No tenderness Integumentary: No rashes, No breakdown Neurological: Normal gait, Normal speech, Normal strength at 5/5 x4 extr, Normal tone, Normal affect Lymphatics: No axilla or inguinal lymphadenopathy External genitalia: Deferred Rectal: Deferred - Studies Laboratory Data (last 24 hrs) 11/27/20 11:16: WBC 10.30 D, Hgb 13.0, Hct 40.3, Plt Count 371 D 11/27/20 11:16: Sodium 131 L, Potassium 4.0, BUN 24 H, Creatinine 1.10, Glucose 447 H*, Total Bilirubin 0.4, AST 11 L, ALT 23, Alkaline Phosphatase 188 H, Lipase 111 Assessment and Plan - Plan --DKA associated with DM 1. Patient placed on insulin drip protocol. Continue NPO and supportive care --Nausea and vomiting. Antiemetics on board. --Depression and Anxiety disorder. Stable. Continue home meds when available --. Patient gave last month. Continue supportive care --DVT prophylaxis with Lovenox subQ Discharge Plan: Home Plan to discharge in: Greater than 2 days - Advance Directives Does patient have a Living Will: No Does patient have a Durable POA for Healthcare: No - Code Status/Comfort Care Code Status Assessed: Yes Code Status: Full Code Critical Care: No
[2020-11-27] MEDS: NACHLORIDE 0.45% 1,000 ML IV SCH ×2 (17:00→20:08)
[2020-11-27] MEDS ORDERED: ONDANSETRON 4 MG/2 ML VIAL IV PRN (17:00)
[2020-11-27] MEDS: ENOXAPARIN 40 MG/0.4 ML SQ SCH (18:00)
[2020-11-27] MEDS: D5 0.45 NS 1,000 ML IV SCH ×2 (18:25→23:40)
[2020-11-27] MEDS ORDERED: ENOXAPARIN 40 MG/0.4 ML SQ ONE (18:28)
[2020-11-27] MEDS ORDERED: D5 0.45 NS 1,000 ML IV ONE (18:28)
[2020-11-27] MEDS ORDERED: ACETAMINOPHEN 650MG/RECT SUPP PR PRN (18:29)
[2020-11-27] MEDS ORDERED: KETOROLAC 30 MG/ML INJ IV PRN (18:30)
[2020-11-27] MEDS ORDERED: ACETAMINOPHEN 500 MG TAB ONE (18:46)
[2020-11-27] MEDS ORDERED: KETOROLAC 30 MG/ML INJ ONE (20:30)
[2020-11-27 20:50] VITALS: BMI 24.9
[2020-11-27 20:58] LABS: BUN Blood Urea Nitrogen 12 mg/dL (7-18); Bicarbonate 22 mmol/L (21-32); Glucose Level 143 mg/dL (74-106); Potassium 3.4 mmol/L (3.5-5.1); Sodium Level 140 mmol/L (136-145)
[2020-11-28 00:17] LABS: BUN Blood Urea Nitrogen 10 mg/dL (7-18); Bicarbonate 20 mmol/L (21-32); Glucose Level 189 mg/dL (74-106); Potassium 3.6 mmol/L (3.5-5.1); Sodium Level 138 mmol/L (136-145)
[2020-11-28] MEDS ORDERED: D50W 25 GM/50 ML SYRINGE IV PRN (00:34)
[2020-11-28] MEDS ORDERED: GLUCAGON 1 MG/VIAL IM PRN (00:34)
[2020-11-28] MEDS ORDERED: NACHLORIDE 0.45% 1,000 ML IV ONE (00:56)
[2020-11-28] MEDS ORDERED: INSULIN GLARGINE 100 UNITS/ML SQ ONE (00:56)
[2020-11-28] MEDS ORDERED: NACHLORIDE 0.45% 1,000 ML IV SCH (01:00)
[2020-11-28] MEDS: INSULIN -REGULAR HUMAN 50 UNIT/0.5 ML ML SQ SCH ×2 (05:27→07:30)
[2020-11-28 05:28] LABS: Absolute Lymphocytes (CBC) 2.4 K/uL (0.7-4.9); Basophils % 0.6 % (0-1.3); Lymphocytes % 37.2 % (15.3-44.8); MPV 7.8 fL (7.6-11.3); RBC Red Blood Cell Count 4.09 M/uL (3.86-4.86)
[2020-11-28] MEDS ORDERED: INSULIN -REGULAR HUMAN 50 UNIT/0.5 ML ML ONE (05:44)
[2020-11-28 06:02] LABS: ALT/SGPT 18 U/L (12-78); AST/SGOT 13 U/L (15-37); Albumin 2.8 g/dL (3.4-5.0); Alkaline Phosphatase 137 U/L (45-117); BUN Blood Urea Nitrogen 11 mg/dL (7-18); Bicarbonate 19 mmol/L (21-32); Bilirubin Total 0.3 mg/dL (0.2-1.0); Glucose Level 400 mg/dL (74-106); HDL Cholesterol 69 mg/dL (40-60); LDL Cholesterol, Calculated 54 (<130); Magnesium 1.7 mg/dL (1.8-2.4); Potassium 4.2 mmol/L (3.5-5.1); Protein, Total 6.2 g/dL (6.4-8.2); Sodium Level 134 mmol/L (136-145)
[2020-11-28] MEDS ORDERED: DICYCLOMINE HCL 10 MG CAP PO PRN (06:20)
[2020-11-28 06:33] LABS: Phosphorus 2.7 mg/dL (2.5-4.9)
[2020-11-28 06:37] VITALS: O2SAT 100
[2020-11-28] MEDS ORDERED: MAGNESIUM SULFATE 1 gm IVPB 1 GM/100 ML BAG IV ONE ×2 (06:42→09:00)
[2020-11-28] MEDS: ENOXAPARIN 40 MG/0.4 ML SQ SCH (09:00)
[2020-11-28] MEDS ORDERED: INSULIN GLARGINE 100 UNITS/ML SQ SCH ×2 (09:00→21:00)
[2020-11-28] MEDS ORDERED: FOLIC ACID 1 MG TABLET PO SCH (09:00)
[2020-11-28] MEDS ORDERED: SERTRALINE HCL 100 MG TAB PO SCH (09:00)
[2020-11-28 09:24] VITALS: BP 104/61; TEMP 97
--- NOTE | 2020-11-28 10:35 | P.DS ---
Admission Date: 11/27/20 Discharge Date: 11/28/20 Primary Care Provider: none Disposition: ROUTINE DISCHARGE Discharge Condition: GOOD Reason for Admission: Nausea and Vomitting Consultations: none Procedures: COVID: Negative Medical Problem List: Nausea, vomiting secondary to diabetic ketoacidosis with history of diabetes carrillo carbajal type 1 Brief History of Present Illness: 20 year old female with a PMHx significant for DM 1, Anxiety disorder, depression who presents with c\o of nausea and vomiting onset this am Patient reported associated s\s of fatigue, cough and malaise. Patient denies any other s\s. Symptoms are aggravated or relieved by nothing. Patient reports that her blood sugars are not very well controlled. She is currently seen endocrinology. In the ER she was found to be in DKA. Patient was admitted for treatment. Hospital Course: Patient presented with nausea, vomiting secondary to diabetic ketoacidosis. Patient with poorly controlled type 1 diabetes. Patient was admitted for treatment. Patient received IV fluids and IV insulin. The patient was transitioned to her regular regimen. Patient takes Levemir 16 units subcu daily. Blood sugars have improved. Hemoglobin A1c obtained. At discharge recommend to continue Levemir at 20 units subcu daily. Patient will continue with mild sliding scale with NovoLog. Recommend to monitor blood sugars at least twice daily. Recommend to maintain blood sugars less than 140 fasting and less than 200 for meals. If blood sugars remain elevated greater than 200 then she may increase Levemir by 1 to 2 units for better control. Will help patient establish care with a local physician. Patient plans to see Dr. Cisneros, who will come and see the patient as well. Recommend to follow-up within 1 week to follow-up this hospitalization and continue her care. Better diabetic control will be required to prevent DKA exacerbations. Education on DKA and diabetes provided. Patient with anxiety. At discharge she will continue with her medications of Zoloft 100 mg daily. Vital Signs/Physical Exam: Temp Pulse Resp BP Pulse Ox 97.0 F 98 H 16 104/61 99 11/28/20 08:00 11/28/20 08:00 11/28/20 08:00 11/28/20 08:00 11/28/20 08:00 General: Alert, In no apparent distress, Oriented x3, Cooperative HEENT: Atraumatic Neck: Supple Respiratory: Clear to auscultation bilaterally, Normal air movement Cardiovascular: Normal pulses, Regular rate/rhythm Gastrointestinal: Normal bowel sounds, Soft and benign, Non-distended, No tenderness, No masses, No rebound, No guarding Musculoskeletal: No erythema, No tenderness, No warmth Integumentary: No tenderness/swelling Neurological: Normal speech, Normal strength at 5/5 x4 extr, Normal tone, Normal affect Laboratory Data at Discharge: WBC 6.40 K/uL (4.3-10.9) D 11/28/20 05:01 Hgb 11.2 g/dL (12.0-15.0) L 11/28/20 05:01 Hct 34.0 % (36.0-45.0) L D 11/28/20 05:01 Plt Count 289 K/uL (152-406) D 11/28/20 05:01 Sodium 134 mmol/L (136-145) L 11/28/20 05:01 Potassium 4.2 mmol/L (3.5-5.1) 11/28/20 05:01 BUN 11 mg/dL (7-18) 11/28/20 05:01 Creatinine 0.71 mg/dL (0.55-1.3) 11/28/20 05:01 Glucose 400 mg/dL (74-106) H 11/28/20 05:01 Phosphorus 2.7 mg/dL (2.5-4.9) 11/28/20 05:01 Magnesium 1.7 mg/dL (1.8-2.4) L 11/28/20 05:01 Total Bilirubin 0.3 mg/dL (0.2-1.0) 11/28/20 05:01 AST 13 U/L (15-37) L 11/28/20 05:01 ALT 18 U/L (12-78) 11/28/20 05:01 Alkaline Phosphatase 137 U/L (45-117) H 11/28/20 05:01 Triglycerides 258 mg/dL (<150) H 11/28/20 05:01 Cholesterol 175 mg/dL (<200) 11/28/20 05:01 HDL Cholesterol 69 mg/dL (40-60) H 11/28/20 05:01 Cholesterol/HDL Ratio 2.54 11/28/20 05:01 Lipase 111 U/L (73-393) 11/27/20 11:16 Home Medications: Dicyclomine [Bentyl*] 10 mg PO Q6HP PRN 11/27/20 Folic Acid 1,000 mcg PO DAILY 11/27/20 Sertraline [Zoloft*] 100 mg PO DAILY 11/27/20 Insulin Aspart [Novolog Flexpen] See Protocol SQ SEECOM #1 box 11/28/20 Insulin Detemir [Levemir] 20 units SQ DAILY #1 vial 11/28/20 New Medications: Insulin Detemir [Levemir] 20 units SQ DAILY #1 vial Insulin Aspart [Novolog Flexpen] See Protocol SQ SEECOM #1 box Physician Discharge Instructions: Patient presented with nausea, vomiting secondary to diabetic ketoacidosis. Patient with poorly controlled type 1 diabetes. Patient was admitted for treatment. Patient received IV fluids and IV insulin. The patient was transitioned to her regular regimen. Patient takes Levemir 16 units subcu daily. Blood sugars have improved. Hemoglobin A1c obtained. At discharge recommend to continue Levemir at 20 units subcu daily. Patient will continue with mild sliding scale with NovoLog. Recommend to monitor blood sugars at least twice daily. Recommend to maintain blood sugars less than 140 fasting and less than 200 for meals. If blood sugars remain elevated greater than 200 then she may increase Levemir by 1 to 2 units for better control. Will help patient establish care with a local physician. Patient plans to see Dr. Cisneros, who will come and see the patient as well. Recommend to follow-up within 1 week to follow-up this hospitalization and continue her care. Better diabetic control will be required to prevent DKA exacerbations. Education on DKA and diabetes provided. Patient with anxiety. At discharge she will continue with her medications of Zoloft 100 mg daily. Diet: ADA Activity: Ad ignacio Followup: NONE,NONE [Primary Care Provider] - Time spent managing pt's care (in minutes): 55
== END 2020-11-28 11:37 | disposition home or self-care (01) | DRG 639 ==
LOC: ER 10:39 → ERHOLD 14:56 → 2ND 11-28 05:53
PROVIDERS: ADMIT Family Medicine; ATTEND Family Medicine
DX: E10.10 Type 1 diabetes mellitus with ketoacidosis without coma (principal); F41.9 Anxiety disorder, unspecified; F32.9 Major depressive disorder, single episode, unspecified; Z88.1 Allergy status to other antibiotic agents; Z91.040 Latex allergy status; Z88.5 Allergy status to narcotic agent; Z88.8 Allergy status to other drugs, medicaments and biological substances; Z91.09 Other allergy status, other than to drugs and biological substances; Z79.4 Long term (current) use of insulin; Z79.899 Other long term (current) drug therapy; Z20.822 Contact with and (suspected) exposure to COVID-19
CPT/HCPCS: 36415; 80048; 80053; 80061; 80076; 82010; 82947; 83036; 83690; 83735; 84100; 85025; 96361; 96374; 96375; 99284; J1650; J1815; J2405; J7030; J7799; U0003

== ENCOUNTER 2021-01-13 18:44 | Emergency (ER) | payer OTHER ==
[2021-01-13] MEDS ORDERED: NA CHLORIDE 0.9% 0 ML ONE ×2 (19:42→21:23)
[2021-01-13 19:48] LABS: Absolute Lymphocytes (CBC) 2.8 K/uL (0.7-4.9); Basophils % 0.6 % (0-1.3); Hematocrit 40.8 % (36.0-45.0); Lymphocytes % 28.2 % (15.3-44.8); MPV 7.9 fL (7.6-11.3); RBC Red Blood Cell Count 4.95 M/uL (3.86-4.86)
[2021-01-13 20:08] LABS: Arterial Blood Carboxyhemoglob 1.3 % (0-1.5); Blood O2 Saturation 95.2 % (92-98.5)
[2021-01-13 20:10] LABS: Albumin 3.8 g/dL (3.4-5.0); Bilirubin Direct 0.1 mg/dL (0-0.2); Bilirubin Total 0.5 mg/dL (0.2-1.0); Potassium 4.1 mmol/L (3.5-5.1); Protein, Total 8.6 g/dL (6.4-8.2)
[2021-01-13] MEDS ORDERED: ONDANSETRON 4 MG/2 ML VIAL ONE (20:19)
--- NOTE | 2021-01-13 21:22 | EDPHYS ---
Physician Documentation [facility] Name: Salome Santacruz Age: 20 yrs Sex: Female : 2000 Arrival Date: 01/13/2021 Time: 18:46 Bed 8 Private MD: Tarun Cisneros ED Physician Zenon Roldan HPI: 01/13 20:05 This 20 yrs old Female presents to ER via Ambulatory with complaints of High ma2 Blood Sugar. 20:05 Onset: The symptoms/episode began/occurred gradually, 1 day(s) ago. Associated signs ma2 and symptoms: Pertinent positives: vomiting, Pertinent negatives: constipation, diarrhea, dry skin, hair loss. Current symptoms: In the emergency department the patient's symptoms are unchanged from the initial presentation. The patient has experienced similar episodes in the past. patient has iddm states takes insulin as prescribed, here with tachycardia and nausea . Historical: - Allergies: 19:07 Phenergan; ll1 19:07 Midol; ll1 19:07 Latex, Natural Rubber; ll1 19:07 Keflex; ll1 19:07 Demerol; ll1 19:07 raw onions; ll1 - PMHx: 19:07 Anxiety; Depression; Diabetes - IDDM; ll1 - PSHx: 19:07 ; ll1 - Immunization history:: Client reports receiving the 2nd dose of the Covid vaccine, Flu vaccine is up to date. - Social history:: Smoking status: Patient denies any tobacco usage or history of. - Family history:: not pertinent. - Hospitalizations: : No recent hospitalization is reported. ROS: 20:05 Constitutional: Negative for fever, chills, and weight loss. ma2 20:05 All other systems are negative. Exam: 20:05 Constitutional: This is a well developed, well nourished patient who is awake, alert, ma2 and in no acute distress. Head/Face: Normocephalic, atraumatic. Eyes: Pupils equal round and reactive to light, extra-ocular motions intact. Lids and lashes normal. Conjunctiva and sclera are non-icteric and not injected. Cornea within normal limits. Periorbital areas with no swelling, redness, or edema. ENT: Nares patent. No nasal discharge, no septal abnormalities noted. Tympanic membranes are normal and external auditory canals are clear. Oropharynx with no redness, swelling, or masses, exudates, or evidence of obstruction, uvula midline. Mucous membranes moist. Neck: Trachea midline, no thyromegaly or masses palpated, and no cervical lymphadenopathy. Supple, full range of motion without nuchal rigidity, or vertebral point tenderness. No Meningismus. Chest/axilla: Normal chest wall appearance and motion. Nontender with no deformity. No lesions are appreciated. Cardiovascular: Regular rate and rhythm with a normal S1 and S2. No gallops, murmurs, or rubs. Normal PMI, no JVD. No pulse deficits. Respiratory: Lungs have equal breath sounds bilaterally, clear to auscultation and percussion. No rales, rhonchi or wheezes noted. No increased work of breathing, no retractions or nasal flaring. Abdomen/GI: Soft, non-tender, with normal bowel sounds. No distension or tympany. No guarding or rebound. No evidence of tenderness throughout. Back: No spinal tenderness. No costovertebral tenderness. Full range of motion. Skin: Warm, dry with normal turgor. Normal color with no rashes, no lesions, and no evidence of cellulitis. MS/ Extremity: Pulses equal, no cyanosis. Neurovascular intact. Full, normal range of motion. Neuro: Awake and alert, GCS 15, oriented to person, place, time, and situation. Cranial nerves II-XII grossly intact. Motor strength 5/5 in all extremities. Sensory grossly intact. Cerebellar exam normal. Normal gait. Psych: Awake, alert, with orientation to person, place and time. Behavior, mood, and affect are within normal limits. Vital Signs: 19:04 BP 113 / 78; Pulse 115; Resp 19; Temp 98.1; Pulse Ox 97% ; Weight 61.23 kg; Height 5 ll1 ft. 4 in. (162.56 cm); Pain 6/10; 21:15 BP 115 / 70; Pulse 110; Resp 19; Pulse Ox 100% ; rr5 19:04 Body Mass Index 23.17 (61.23 kg, 162.56 cm) ll1 MDM: 19:10 Patient medically screened. ma2 20:05 Differential diagnosis: diabetes insipidus, DKA, hyperglycemia, hypoglycemic episode, ma2 new onset diabetes. Data reviewed: vital signs, nurses notes. 21:16 ED course: discussed with dr. Rutherford. Patient need to be admitted to icu with dka.. hernán however want to go home as she has a child at home and dad will leave home.. i explained that she has dka and needs admission insuline drip and ivf. there is risk of worsening dka which can cause brain edema coma and . she communicate understanding this risk and states she will call ems and return to hospital if feels worse . 01/13 19:13 Order name: Basic Metabolic Panel; Complete Time: 20:13 [facility] 01/13 19:13 Order name: CBC with Diff; Complete Time: 19:54 [facility] 01/13 19:13 Order name: Hepatic Function; Complete Time: 20:13 [facility] 01/13 19:13 Order name: Lipase; Complete Time: 20:13 [facility] 01/13 19:50 Order name: ABG; Complete Time: 20:49 [facility] 01/13 20:14 Order name: Acetone, Serum; Complete Time: 20:49 [facility] 01/13 20:14 Order name: Phosphorus; Complete Time: 20:49 [facility] 01/13 21:23 Order name: Glucose, Ancillary Testing [facility] 01/13 19:13 Order name: IV Saline Lock; Complete Time: 19:56 [facility] 01/13 19:13 Order name: Labs collected and sent; Complete Time: 19:56 [facility] 01/13 20:21 Order name: Blood Glucose Level: at 1150 pm [facility] Administered Medications: 19:30 Drug: NS 0.9% 2000 ml Route: IV; Rate: 1 bolus; Site: right forearm; ea 20:17 Drug: Zofran (Ondansetron) 4 mg Route: IVP; Site: right forearm; ea Disposition: 01/13/21 21:20 Patient has left against medical advice. Impression: Diabetes mellitus due to underlying condition with ketoacidosis without coma. - Patients states they are going to Home. - Condition is Stable. - Discharge Instructions: Diabetic Ketoacidosis. Follow up: Tarun Cisneros MD; When: As needed; Reason: Re-evaluation by your physician. - Problem is new. - Symptoms are unchanged. Signatures: Dispatcher [employer] [facility] Cat Santos RN RN ea Alzahri, Mohammad, MD MD ma2 Bradley Tipton RN RN rr5 Kannan Kyle RN RN ll1 Corrections: (The following items were deleted from the chart) 21:27 21:20 01/13/2021 21:20 Patients has left against medical advice. Impression: Diabetes rr5 mellitus due to underlying condition with ketoacidosis without coma. Patient states they are going to Home. Condition is Stable. Follow up: Tarun Cisneros; When: As needed; Reason: Re-evaluation by your physician. Problem is new. Symptoms are unchanged. ma2
--- NOTE | 2021-01-13 21:22 | ER ---
Nurse's Notes [facility] Name: Salome Santacruz Age: 20 yrs Sex: Female : 2000 Arrival Date: 01/13/2021 Time: 18:46 Bed 8 Private MD: Tarun Cisneros Diagnosis: Diabetes mellitus due to underlying condition with ketoacidosis without coma Presentation: 01/13 19:04 Chief complaint: Patient states: High blood sugar for 2 days with nausea. No fever. + ll1 SOB, no cough. Coronavirus screen: Client denies travel out of the [place] in the last 14 days. At this time, the client does not indicate any symptoms associated with coronavirus-19. Ebola Screen: Patient denies travel to an Ebola-affected area in the 21 days before illness onset. Initial Sepsis Screen: Does the patient meet any 2 criteria? HR > 90 bpm. No. Patient's initial sepsis screen is negative. Does the patient have a suspected source of infection? Yes: Other: high blood sugar. Risk Assessment: Do you want to hurt yourself or someone else? Patient reports no desire to harm self or others. Onset of symptoms was January 12, 2021. 19:04 Method Of Arrival: Ambulatory ll1 19:04 Acuity: BRIAN 2 ll1 Historical: - Allergies: 19:07 Phenergan; ll1 19:07 Midol; ll1 19:07 Latex, Natural Rubber; ll1 19:07 Keflex; ll1 19:07 Demerol; ll1 19:07 raw onions; ll1 - PMHx: 19:07 Anxiety; Depression; Diabetes - IDDM; ll1 - PSHx: 19:07 ; ll1 - Immunization history:: Client reports receiving the 2nd dose of the Covid vaccine, Flu vaccine is up to date. - Social history:: Smoking status: Patient denies any tobacco usage or history of. - Family history:: not pertinent. - Hospitalizations: : No recent hospitalization is reported. Screenin:56 Abuse screen: Denies threats or abuse. Nutritional screening: No deficits noted. ea Tuberculosis screening: No symptoms or risk factors identified. Fall Risk IV access (20 points). Assessment: 19:56 General: Appears in no apparent distress. Behavior is appropriate for age. Pain: Denies ea pain. Neuro: Level of Consciousness is awake, alert, obeys commands, Oriented to person, place, time. Cardiovascular: Patient's skin is warm and dry. Respiratory: Airway is patent Respiratory effort is even, unlabored, Respiratory pattern is regular, symmetrical. Derm: Skin is pink, warm \T\ dry. 21:14 Reassessment: Patient appears in no apparent distress at this time. Patient is alert, rr5 oriented x 3, equal unlabored respirations, skin warm/dry/pink. Ed provider spoke to patient advised for admission and explained the situation of DKA, but opted to go home because of her child. AMA form signed. Vital Signs: 19:04 BP 113 / 78; Pulse 115; Resp 19; Temp 98.1; Pulse Ox 97% ; Weight 61.23 kg; Height 5 ll1 ft. 4 in. (162.56 cm); Pain 6/10; 21:15 BP 115 / 70; Pulse 110; Resp 19; Pulse Ox 100% ; rr5 19:04 Body Mass Index 23.17 (61.23 kg, 162.56 cm) ll1 ED Course: 18:46 Patient arrived in ED. am2 18:46 Tarun Cisneros MD is Private Physician. am2 19:06 Triage completed. ll1 19:07 Arm band placed on Patient placed in an exam room, on a stretcher. ll1 19:10 Zenon Roldan MD is Attending Physician. ma2 19:28 Cat Santos, VI is Primary Nurse. ea 19:56 Patient has correct armband on for positive identification. Bed in low position. Call ea light in reach. Side rails up X 1. 20:00 Inserted saline lock: 20 gauge in right forearm, using aseptic technique. Blood rr5 collected. 21:16 No provider procedures requiring assistance completed. IV discontinued, intact, rr5 bleeding controlled, No redness/swelling at site. Pressure dressing applied. 21:19 Tarun Cisneros MD is Referral Physician. ma2 Administered Medications: 19:30 Drug: NS 0.9% 2000 ml Route: IV; Rate: 1 bolus; Site: right forearm; ea 20:17 Drug: Zofran (Ondansetron) 4 mg Route: IVP; Site: right forearm; ea Outcome: 21:10 AMA AMA form signed rr5 21:10 Condition: stable 21:10 Discharge instructions given to patient, Instructed on the need for admit, Demonstrated understanding of instructions, to come back anytime if symptoms get worsen 21:27 Patient left the ED. rr5 Signatures: Manda Forte am2 Cat Santos RN Zenon Sommers ea, MD MD ma2 Bradley Tipton RN RN rr5 Kannan Kyle RN RN ll1
[2021-01-13] MEDS ORDERED: INSULIN -REGULAR HUMAN 50 UNIT/0.5 ML ML ONE (21:23)
[2021-01-13] MEDS ORDERED: NA CHLORIDE 0.9% 2,000 ML ONE (21:23)
[2021-01-13] MEDS ORDERED: KCL 20 MEQ/100 mL IVPB 0 MEQ/0 ML BAG IV ONE (21:23)
[2021-01-13 21:41] VITALS: BP 115/70; O2SAT 100
[2021-01-13 21:42] VITALS: TEMP 98.1
== END 2021-01-13 21:27 | disposition left against medical advice (07) ==
LOC: ER 18:44
DX: E11.10 Type 2 diabetes mellitus with ketoacidosis without coma (principal); Z88.1 Allergy status to other antibiotic agents; Z88.5 Allergy status to narcotic agent; Z88.6 Allergy status to analgesic agent; Z91.018 Allergy to other foods; Z91.040 Latex allergy status; Z91.048 Other nonmedicinal substance allergy status
CPT/HCPCS: 85025; 80048; 36415; 82010; 84100; 82947; 80076; 83690; 82805; J7030; J2405; 96374; 99283; J3480

== ENCOUNTER 2021-01-14 14:44 | Inpatient (IN) | payer OTHER ==
[2021-01-14 15:20] LABS: Urine Blood 2+ (Negative); Urine Glucose 2+ (Negative); Urine Protein Negative (Negative); Urine Specific Gravity 1.015 (1.005-1.030); Urine pH 5.5 (5.0-7.0)
[2021-01-14 15:25] LABS: Absolute Lymphocytes (CBC) 1.9 K/uL (0.7-4.9); Basophils % 0.6 % (0-1.3); Hematocrit 36.3 % (36.0-45.0); MPV 8.2 fL (7.6-11.3); RBC Red Blood Cell Count 4.25 M/uL (3.86-4.86)
[2021-01-14 15:29] LABS: Urine Specific Gravity/Preg 1.015 (1.005-1.030)
[2021-01-14 15:34] LABS: BUN Blood Urea Nitrogen 17 mg/dL (7-18); Potassium 5.1 mmol/L (3.5-5.1); Sodium Level 131 mmol/L (136-145)
[2021-01-14 15:35] LABS: Bicarbonate 8 mmol/L (21-32); Glucose Level 708 mg/dL (74-106)
[2021-01-14] MEDS ORDERED: D50W 25 GM/50 ML SYRINGE IV PRN (15:49)
[2021-01-14] MEDS ORDERED: GLUCAGON 1 MG/VIAL IM PRN (15:49)
[2021-01-14] MEDS ORDERED: ONDANSETRON 4 MG/2 ML VIAL ONE ×2 (15:49→22:26)
--- NOTE | 2021-01-14 15:49 | EDPHYS ---
Physician Documentation [facility] Name: Salome Santacruz Age: 20 yrs Sex: Female : 2000 Arrival Date: 01/14/2021 Time: 14:46 Bed 2 Private MD: ED Physician Dre Rice HPI: 01/14 19:29 This 20 yrs old Female presents to ER via EMS with complaints of High Blood kb Sugar. 19:29 The patient or guardian reports hyperglycemia. Onset: The symptoms/episode kb began/occurred yesterday. Associated signs and symptoms: Pertinent positives: vomiting. Current symptoms: In the emergency department the patient's symptoms are unchanged from the initial presentation. The patient has experienced similar episodes in the past, multiple times. The patient has been recently seen at the [facility] Emergency Department, yesterday, for similar complaints left AMA. Pt reports she was supposed to be admitted for DKA last night, but left AMA to go to work. States she vomited once and work and once at [facility] [place] so she knows she is in DKA. Called EMS after vomiting at [facility] [place]. Historical: - Allergies: 15:00 Demerol; hb 15:00 Keflex; hb 15:00 Latex, Natural Rubber; hb 15:00 Midol; hb 15:00 Phenergan; hb 15:00 raw onions; hb - Home Meds: 15:00 aspirin 81 mg Oral chew 1 tab once daily [Active]; Humalog 100 unit/mL Sub-Q soln 20 hb unit before meals [Active]; Humulin N Pen 100 unit/mL (3 mL) Sub-Q inpn [Active]; Levemir 100 unit/mL subcutaneous soln daily [Active]; Levemir FlexTouch 100 unit/mL (3 mL) subcutaneous inpn [Active]; novolin 70/30 [Active]; Reglan Oral [Active]; sertraline 100 mg Oral tab once daily [Active]; Pepcid Oral [Active]; Zoloft Oral [Active]; - PMHx: 15:00 Diabetes - IDDM; Anxiety; Depression; hb - PSHx: 15:00 ; hb - Immunization history:: Adult Immunizations up to date. - Social history:: Smoking status: Patient denies any tobacco usage or history of. ROS: 19:31 Constitutional: Negative for fever, chills, and weight loss. kb 19:31 Abdomen/GI: Positive for nausea and vomiting, Negative for abdominal pain. 19:31 All other systems are negative. Exam: 19:30 Constitutional: This is a well developed, well nourished patient who is awake, alert, kb and in no acute distress. Head/Face: Normocephalic, atraumatic. ENT: Moist Mucous membranes Cardiovascular: Regular rate and rhythm with a normal S1 and S2. No gallops, murmurs, or rubs. No pulse deficits. Respiratory: Respirations even and unlabored. No increased work of breathing, no retractions or nasal flaring. Abdomen/GI: Soft, non-tender. No distention Skin: Warm, dry with normal turgor. Normal color. MS/ Extremity: Pulses equal, no cyanosis. Neurovascular intact. Full, normal range of motion. Neuro: Awake and alert, GCS 15, oriented to person, place, time, and situation. Moves all extremities. Normal gait. Psych: Awake, alert, with orientation to person, place and time. Behavior, mood, and affect are within normal limits. Vital Signs: 14:57 BP 117 / 62; Pulse 117; Resp 17; Temp 97.7; Pulse Ox 99% on R/A; Weight 61.23 kg; hb Height 5 ft. 4 in. (162.56 cm); Pain 8/10; 15:31 BP 116 / 30; Pulse 125; Resp 18; Pulse Ox 99% on R/A; hb 16:54 BP 99 / 50; Pulse 131; Resp 21; Pulse Ox 98% on R/A; Pain 8/10; hb 17:39 BP 96 / 48; Pulse 124; Resp 18; Pulse Ox 97% on R/A; hb 18:37 BP 91 / 45; Pulse 113; Resp 17; Pulse Ox 98% ; hb 20:41 BP 79 / 35; Pulse 102; Resp 16; Pulse Ox 97% on R/A; jm8 20:41 BP 87 / 43; Pulse 107; Resp 16; Pulse Ox 96% on R/A; jm8 14:57 Body Mass Index 23.17 (61.23 kg, 162.56 cm) hb MDM: 14:48 Patient medically screened. kb 15:47 Data reviewed: vital signs, nurses notes. Data interpreted: Pulse oximetry: on room air kb is 99 %. Interpretation: normal. Counseling: I had a detailed discussion with the patient and/or guardian regarding: the historical points, exam findings, and any diagnostic results supporting the discharge/admit diagnosis, lab results, the need for further work-up and treatment in the hospital. Physician consultation: Tarun Cisneros MD was contacted at 15:47, regarding admission, to the ICU, patient's condition, and will see patient in ED. 01/14 14:49 Order name: CBC with Diff kb 01/14 14:49 Order name: Basic Metabolic Panel kb 01/14 14:49 Order name: Acetone, Serum kb 01/14 14:50 Order name: CBC with Automated Diff; Complete Time: 16:10 EDMS 01/14 14:50 Order name: Basic Metabolic Panel; Complete Time: 15:42 EDMS 01/14 14:50 Order name: Acetone Level; Complete Time: 15:42 EDMS 01/14 14:50 Order name: COVID-19 : Document "Date of Symptom Onset" if Symptomatic. 01/14 15:19 Order name: Urine Dipstick-Ancillary; Complete Time: 15:27 EDMS 01/14 15:20 Order name: Urine --Ancillary (enter results); Complete Time: 15:35 bd 01/14 16:26 Order name: SARS-COV-2 RT PCR; Complete Time: 16:38 EDMS 01/14 17:41 Order name: Glucose, Ancillary Testing; Complete Time: 17:54 EDMS 01/14 18:47 Order name: Glucose, Ancillary Testing; Complete Time: 18:49 EDMS 01/14 19:50 Order name: Glucose, Ancillary Testing EDMS 01/14 14:49 Order name: IV Start; Complete Time: 15:10 kb 01/14 14:49 Order name: Urine Dipstick-Ancillary (obtain specimen); Complete Time: 15:14 kb 01/14 20:23 Order name: CBC with Automated Diff EDMS 01/14 20:41 Order name: Basic Metabolic Panel EDMS 01/14 20:49 Order name: Glucose, Ancillary Testing EDMS 01/14 21:18 Order name: Glucose, Ancillary Testing EDMS Administered Medications: 15:30 Drug: Zofran (Ondansetron) 4 mg Route: IVP; Site: right antecubital; hb 16:12 Follow up: Response: No adverse reaction hb 15:30 Drug: TORadol - (ketorolac) 15 mg Route: IVP; Site: right antecubital; hb 16:37 Follow up: Response: No adverse reaction hb 15:31 Drug: NS 0.9% 1000 ml Route: IV; Rate: 1000 ml; Site: right antecubital; hb 16:15 Follow up: Response: No adverse reaction; IV Status: Completed infusion; IV Intake: hb 1000ml 16:05 Drug: Insulin Drip - (Insulin Regular Human 100 units, NS 0.9% 100 ml) {Co-Signature: hb ph (Angie Ha RN).} Route: IV; Rate: calculated rate; Site: left hand; 17:41 Follow up: Response: No adverse reaction hb 16:52 Drug: morphine 2 mg Route: IVP; Site: right antecubital; hb 17:41 Follow up: Response: No adverse reaction hb 16:52 Drug: Phenergan (promethazine) 25 mg Route: IVP; Site: right antecubital; hb 17:41 Follow up: Response: No adverse reaction hb 16:53 Drug: NS 0.9% 1000 ml Route: IV; Rate: 125 ml/hr; Site: right antecubital; hb Disposition: 01/15 07:26 Co-signature as Attending Physician, Dre Rice MD I agree with the assessment and rajan plan of care. Disposition: 01/14/21 15:48 Hospitalization ordered by Tarun Cisneros for Inpatient Admission. Preliminary diagnosis is Diabetes mellitus due to underlying condition with ketoacidosis without coma. - Bed requested for Intensive Care Unit. - Status is Inpatient Admission. jm8 - Condition is Stable. - Problem is new. - Symptoms are unchanged. Signatures: Dispatcher [employer] [facility] Lo Alcaraz, HAMPER MAKER MACHINE-C HAMPER MAKER MACHINE-Dre Veliz MD MD cha Garcia, Cindy, RN RN Jane Reyes, RN RN Ian Liu RN RN [facility] Angie Ha RN ph Corrections: (The following items were deleted from the chart) 01/14 15:31 14:51 CORONAVIRUS ordered. [facility] 21:02 15:48 Hospitalization Ordered by Tarun Cisneros MD for Inpatient Admission. Preliminary cg diagnosis is Diabetes mellitus due to underlying condition with ketoacidosis without coma. Bed requested for Telemetry/MedSurg (Inpatient). Status is Inpatient Admission. Condition is Stable. Problem is new. Symptoms are unchanged. kb 21:22 21:02 01/14/2021 15:48 Hospitalization Ordered by Tarun Cisneros MD for Inpatient jm8 Admission. Preliminary diagnosis is Diabetes mellitus due to underlying condition with ketoacidosis without coma. Bed requested for Intensive Care Unit. Status is Inpatient Admission. Condition is Stable. Problem is new. Symptoms are unchanged. cg
--- NOTE | 2021-01-14 15:49 | ER ---
Nurse's Notes [facility] Name: Salome Santacruz Age: 20 yrs Sex: Female : 2000 Arrival Date: 01/14/2021 Time: 14:46 Bed 2 Private MD: Diagnosis: Diabetes mellitus due to underlying condition with ketoacidosis without coma Presentation: 01/14 14:46 Chief complaint: EMS states: pt was seen here last night for high blood sugar, was iw supposed to be admitted, left AMA, pt collapsed at gas station today, BS was over 600. Coronavirus screen: At this time, the client does not indicate any symptoms associated with coronavirus-19. Ebola Screen: Patient negative for fever greater than or equal to 101.5 degrees Fahrenheit, and additional compatible Ebola Virus Disease symptoms Patient denies exposure to infectious person. Patient denies travel to an Ebola-affected area in the 21 days before illness onset. No symptoms or risks identified at this time. Initial Sepsis Screen: Does the patient meet any 2 criteria? No. Patient's initial sepsis screen is negative. Does the patient have a suspected source of infection? No. Patient's initial sepsis screen is negative. Risk Assessment: Do you want to hurt yourself or someone else? Patient reports no desire to harm self or others. Onset of symptoms was January 14, 2021. 14:46 Method Of Arrival: EMS: [facility] iw 14:46 Acuity: BRIAN 2 iw Historical: - Allergies: 15:00 Demerol; hb 15:00 Keflex; hb 15:00 Latex, Natural Rubber; hb 15:00 Midol; hb 15:00 Phenergan; hb 15:00 raw onions; hb - Home Meds: 15:00 aspirin 81 mg Oral chew 1 tab once daily [Active]; Humalog 100 unit/mL Sub-Q soln 20 hb unit before meals [Active]; Humulin N Pen 100 unit/mL (3 mL) Sub-Q inpn [Active]; Levemir 100 unit/mL subcutaneous soln daily [Active]; Levemir FlexTouch 100 unit/mL (3 mL) subcutaneous inpn [Active]; novolin 70/30 [Active]; Reglan Oral [Active]; sertraline 100 mg Oral tab once daily [Active]; Pepcid Oral [Active]; Zoloft Oral [Active]; - PMHx: 15:00 Diabetes - IDDM; Anxiety; Depression; hb - PSHx: 15:00 ; hb - Immunization history:: Adult Immunizations up to date. - Social history:: Smoking status: Patient denies any tobacco usage or history of. Screenin:10 Abuse screen: Denies threats or abuse. Denies injuries from another. Nutritional hb screening: No deficits noted. Tuberculosis screening: No symptoms or risk factors identified. Fall Risk Total [place] Fall Scale indicates Low Risk Score (25-44 pts). Fall prevention measures have been instituted. Side Rails Up X 2 Frequent Obs/Assesments occuring As available Patient and Family Educated on Fall Prevention Program and strategies. Assessment: 15:10 General: Appears in no apparent distress. Behavior is calm, cooperative. Pain: Pain hb currently is 8 out of 10 on a pain scale. Neuro: Level of Consciousness is awake, alert, obeys commands, Oriented to person, place, time, situation. Cardiovascular: Patient's skin is warm and dry. Rhythm is sinus tachycardia. Respiratory: Respiratory effort is even, unlabored, Respiratory pattern is regular, symmetrical. GI: Reports nausea, vomiting. : No signs and/or symptoms were reported regarding the genitourinary system. EENT: No signs and/or symptoms were reported regarding the EENT system. Derm: Skin is pink, warm \\T\\ dry. Musculoskeletal: Reports "pain all over". 16:15 Reassessment: Patient appears in no apparent distress at this time. Patient and/or hb family updated on plan of care and expected duration. Pain level reassessed. Patient is alert, oriented x 3, equal unlabored respirations, skin warm/dry/pink. Admission ordered, awaiting room assignment at this time. 16:46 Reassessment: Dr. Cisneros at bedside. hb 17:40 Reassessment: Patient appears in no apparent distress at this time. Patient and/or hb family updated on plan of care and expected duration. Pain level reassessed. Patient is alert, oriented x 3, equal unlabored respirations, skin warm/dry/pink. 18:30 Reassessment: Patient appears in no apparent distress at this time. Patient and/or hb family updated on plan of care and expected duration. Pain level reassessed. Patient is alert, oriented x 3, equal unlabored respirations, skin warm/dry/pink. Vital Signs: 14:57 BP 117 / 62; Pulse 117; Resp 17; Temp 97.7; Pulse Ox 99% on R/A; Weight 61.23 kg; hb Height 5 ft. 4 in. (162.56 cm); Pain 8/10; 15:31 BP 116 / 30; Pulse 125; Resp 18; Pulse Ox 99% on R/A; hb 16:54 BP 99 / 50; Pulse 131; Resp 21; Pulse Ox 98% on R/A; Pain 8/10; hb 17:39 BP 96 / 48; Pulse 124; Resp 18; Pulse Ox 97% on R/A; hb 18:37 BP 91 / 45; Pulse 113; Resp 17; Pulse Ox 98% ; hb 20:41 BP 79 / 35; Pulse 102; Resp 16; Pulse Ox 97% on R/A; jm8 20:41 BP 87 / 43; Pulse 107; Resp 16; Pulse Ox 96% on R/A; jm8 14:57 Body Mass Index 23.17 (61.23 kg, 162.56 cm) hb ED Course: 14:46 Patient arrived in ED. iw 14:47 Lo Alcaraz FNP-C is [facility]. kb 14:47 Dre Rice MD is Attending Physician. kb 14:48 Triage completed. iw 14:57 Arm band placed on Patient placed in an exam room, on a stretcher, on quality assurance monitor final, ph on pulse oximetry. 15:01 Jane Reyes, RN is Primary Nurse. hb 15:10 Patient has correct armband on for positive identification. Bed in low position. Call hb light in reach. 15:10 COVID-19 : Document "Date of Symptom Onset" if Symptomatic. Sent. hb 15:10 Maintain EMS IV. Dressing intact. Good blood return noted. Site clean \\T\\ dry. Gauge \\T\\ hb site: 20g RAC. 15:48 Tarun Cisneros MD is Hospitalizing Provider. kb 16:02 Inserted saline lock: 22 gauge in left hand, using aseptic technique. hb 21:22 No provider procedures requiring assistance completed. Patient admitted, IV remains in [address] intact. Administered Medications: 15:30 Drug: Zofran (Ondansetron) 4 mg Route: IVP; Site: right antecubital; hb 16:12 Follow up: Response: No adverse reaction hb 15:30 Drug: TORadol - (ketorolac) 15 mg Route: IVP; Site: right antecubital; hb 16:37 Follow up: Response: No adverse reaction hb 15:31 Drug: NS 0.9% 1000 ml Route: IV; Rate: 1000 ml; Site: right antecubital; hb 16:15 Follow up: Response: No adverse reaction; IV Status: Completed infusion; IV Intake: hb 1000ml 16:05 Drug: Insulin Drip - (Insulin Regular Human 100 units, NS 0.9% 100 ml) {Co-Signature: fernando ph (Angie Ha RN).} Route: IV; Rate: calculated rate; Site: left hand; 17:41 Follow up: Response: No adverse reaction hb 16:52 Drug: morphine 2 mg Route: IVP; Site: right antecubital; hb 17:41 Follow up: Response: No adverse reaction hb 16:52 Drug: Phenergan (promethazine) 25 mg Route: IVP; Site: right antecubital; hb 17:41 Follow up: Response: No adverse reaction hb 16:53 Drug: NS 0.9% 1000 ml Route: IV; Rate: 125 ml/hr; Site: right antecubital; hb Intake: 16:15 IV: 1000ml; Total: 1000ml. hb Outcome: 15:48 Decision to Hospitalize by Provider. kb 21:21 Admitted to ICU accompanied by nurse, via stretcher, with chart, Report called to romie De Leon RN 21:21 Condition: good 21:21 Instructed on the need for admit. 21:21 Critical Care visit due to DKA. 21:22 Patient left the ED. romie Signatures: Lo Alcaraz, EVANGELINAC ELIDIA-Pauline Ball RN VI Angie Ha RN RN ph Jane Reyes RN RN hb Malcaba, Joseph, RN RN jm8 Patricia Hall RN
[2021-01-14] MEDS ORDERED: NA CHLORIDE 0.9% 1,000 ML ONE ×2 (15:50→17:05)
[2021-01-14] MEDS ORDERED: KETOROLAC 30 MG/ML INJ ONE (15:50)
[2021-01-14] MEDS ORDERED: INSULIN -REGULAR HUMAN 100 UNIT in NA CHLORIDE 0.9% 100 ML IV SCH (16:30)
[2021-01-14] MEDS ORDERED: PROMETHAZINE INJ 25 MG/ML AMP ONE (17:04)
[2021-01-14] MEDS ORDERED: MORPHINE 2 MG/ML SYR ONE (17:05)
--- NOTE | 2021-01-14 17:05 | P.HP ---
Certification for Inpatient Patient admitted to: Inpatient With expected LOS: >2 Midnights Patient will require the following post-hospital care: None Practitioner: I am a practitioner with admitting privileges, knowledge of patient current condition, hospital course, and medical plan of care. Services: Services provided to patient in accordance with Admission requirements found in Title 42 Section 412.3 of the Code of Federal Regulations Patient History Date of Service: 01/14/21 Primary Care Provider: Blayne Reason for admission: DKA History of Present Illness: Patient is her for DKA. She has a history of DM1. She has had them in the past with her periods. Which is what happened yesterday. She came into the ER. Was found to be in Dka. I had accepted her. However the patient left AMA. She felt she could handle this. However the patient started vomitting at work. Called EMS. Her labs were worse. She agreed to get admitted this time. She has an anion gap of 24 with a co2 of 8. So fairly acidotic. Allergies acetaminophen [From Midol] Allergy (Verified 08/21/16 08:55) "bumps in my mouth" latex Allergy (Verified 08/21/16 08:55) Rash pamabrom [From Midol] Allergy (Verified 08/21/16 08:55) "bumps in my mouth" promethazine [From Phenergan] Allergy (Verified 04/20/19 23:18) Unknown Home Medications: Dicyclomine [Bentyl*] 10 mg PO Q6HP PRN 11/27/20 Folic Acid 1,000 mcg PO DAILY 11/27/20 Sertraline [Zoloft*] 100 mg PO DAILY 11/27/20 Insulin Aspart [Novolog Flexpen] See Protocol SQ SEECOM #1 box 11/28/20 Insulin Detemir [Levemir] 20 units SQ DAILY #1 vial 11/28/20 - Past Medical/Surgical History Diabetic: Yes -: Type 1 DM -: major depressive disorder with psychosis -: -: [place] Teeth removed -: I&D - Social History Alcohol use: Yes CD- Drugs: No Caffeine use: Yes Review of Systems Gastrointestinal: Nausea, Vomiting, Abdominal Pain Physical Examination - Physical Exam General: Alert, In no apparent distress HEENT: Atraumatic, PERRLA, Other (dry mucus membranes), EOMI, Sclerae nonicteric Neck: Supple, 2+ carotid pulse no bruit, No LAD, Without JVD or thyroid abnormality Respiratory: Clear to auscultation bilaterally, Normal air movement Cardiovascular: Normal S1 S2, Other (tachycardia) Gastrointestinal: Normal bowel sounds, No tenderness Musculoskeletal: No tenderness Integumentary: No rashes Neurological: Normal gait, Normal speech, Normal strength at 5/5 x4 extr, Normal tone, Normal affect Lymphatics: No axilla or inguinal lymphadenopathy - Studies Laboratory Data (last 24 hrs) 01/14/21 15:06: Sodium 131 L, Potassium 5.1, BUN 17, Creatinine 1.02, Glucose 708 H* 01/14/21 15:06: WBC 8.50 D, Hgb 11.2 L, Hct 36.3, Plt Count 361 Assessment and Plan - Problems (Diagnosis) (1) DKA (diabetic ketoacidoses) Current Visit: No Status: Acute Plan: will admit her to the hospital. Start her on fluids and iv insulin. Will repl chadnu magnesium and potassium as needed. Will have her in the ICU. Will need to try getting her a pump and a cgm as an outpatient. Qualifiers: Diabetes mellitus type: type 1 Diabetes mellitus complication detail: without coma Qualified Code(s): E10.10 - Type 1 diabetes mellitus with ketoacidosis without coma (2) Depression Current Visit: Yes Status: Chronic Plan: will restart her sertraline in the morning. Qualifiers: Depression Type: major depressive disorder Major depression recurrence: recurrent Active/Remission status: in partial remission Qualified Code(s): F33.41 - Major depressive disorder, recurrent, in partial remission Discharge Plan: Home Plan to discharge in: 48 Hours - Advance Directives Does patient have a Living Will: No Does patient have a Durable POA for Healthcare: No - Code Status/Comfort Care Code Status Assessed: No Code Status: Full Code Physician Review: Patient Assessed, Agree with Above Assessment and Plan Critical Care: Yes Time Spent Managing Pts Care (In Minutes): 45
[2021-01-14] MEDS ORDERED: ACETAMINOPHEN 500 MG TAB PO PRN (19:31)
[2021-01-14] MEDS ORDERED: PROMETHAZINE INJ 25 MG/ML AMP IV PRN (19:31)
[2021-01-14] MEDS ORDERED: NA CHLORIDE 0.9% 1,000 ML IV SCH ×2 (19:31)
[2021-01-14] MEDS: ENOXAPARIN 40 MG/0.4 ML SQ SCH (19:31)
[2021-01-14] MEDS ORDERED: MORPHINE 2 MG/ML SYR IM PRN (19:31)
[2021-01-14] MEDS: D5 0.45 NS 1,000 ML IV SCH (20:12)
[2021-01-14 20:22] LABS: Absolute Lymphocytes (CBC) 3.1 K/uL (0.7-4.9); Basophils % 0.5 % (0-1.3); Hematocrit 31.3 % (36.0-45.0); Lymphocytes % 24.5 % (15.3-44.8); MPV 7.5 fL (7.6-11.3); RBC Red Blood Cell Count 3.83 M/uL (3.86-4.86)
[2021-01-14] MEDS ORDERED: D5 0.45 NS 1,000 ML IV ONE (20:23)
[2021-01-14 20:40] LABS: Potassium 4.3 mmol/L (3.5-5.1)
[2021-01-14] MEDS ORDERED: ENOXAPARIN 40 MG/0.4 ML SQ ONE (20:52)
[2021-01-14] MEDS: ONDANSETRON 4 MG/2 ML VIAL IV PRN (22:12)
[2021-01-14 22:21] VITALS: BMI 23.1
[2021-01-15 01:19] LABS: BUN Blood Urea Nitrogen 15 mg/dL (7-18); Bicarbonate 17 mmol/L (21-32); Glucose Level 111 mg/dL (74-106); Potassium 4.1 mmol/L (3.5-5.1); Sodium Level 142 mmol/L (136-145)
[2021-01-15] MEDS ORDERED: D5 0.45 NS 1,000 ML IV ONE (02:26)
[2021-01-15] MEDS: D5 0.45 NS 1,000 ML IV SCH (03:02)
[2021-01-15 05:06] LABS: Absolute Lymphocytes (CBC) 3.8 K/uL (0.7-4.9); Basophils % 1.3 % (0-1.3); Hematocrit 31.2 % (36.0-45.0); Lymphocytes % 41.4 % (15.3-44.8); MPV 7.5 fL (7.6-11.3); RBC Red Blood Cell Count 3.83 M/uL (3.86-4.86)
[2021-01-15 05:23] LABS: BUN Blood Urea Nitrogen 13 mg/dL (7-18); Bicarbonate 18 mmol/L (21-32); Glucose Level 161 mg/dL (74-106); Potassium 3.8 mmol/L (3.5-5.1); Sodium Level 144 mmol/L (136-145)
[2021-01-15] MEDS: PANTOPRAZOLE 40MG TABLET PO SCH (06:36)
[2021-01-15] MEDS ORDERED: PANTOPRAZOLE 40MG TABLET PO ONE (06:55)
[2021-01-15] MEDS ORDERED: D50W 25 GM/50 ML SYRINGE IV PRN (07:29)
[2021-01-15] MEDS ORDERED: GLUCAGON 1 MG/VIAL IM PRN (07:29)
[2021-01-15] MEDS ORDERED: POTASSIUM CL SA 10 MEQ TAB PO ONE ×2 (07:36→09:00)
[2021-01-15] MEDS ORDERED: FOLIC ACID 1 MG TABLET ONE (07:36)
[2021-01-15] MEDS: NA CHLORIDE 0.9% 1,000 ML IV SCH ×2 (07:41→18:47)
[2021-01-15] MEDS: INSULIN GLARGINE 100 UNITS/ML SQ SCH (07:42)
[2021-01-15] MEDS: FOLIC ACID 1 MG TABLET PO SCH (07:42)
[2021-01-15] MEDS: INSULIN -REGULAR HUMAN 50 UNIT/0.5 ML ML SQ SCH ×4 (07:49→21:00)
[2021-01-15] MEDS ORDERED: INSULIN GLARGINE 100 UNITS/ML SQ ONE (07:57)
[2021-01-15] MEDS ORDERED: INSULIN -REGULAR HUMAN 50 UNIT/0.5 ML ML ONE ×2 (07:58→11:29)
[2021-01-15] MEDS ORDERED: NA CHLORIDE 0.9% 1,000 ML ONE (07:58)
--- NOTE | 2021-01-15 08:50 | P.PN ---
Subjective Date of Service: 01/15/21 Primary Care Provider: Blayne Chief Complaint: DKA Subjective: Improving (no longer in dka. Feels very weak thought) Review of Systems 10-point ROS is otherwise unremarkable General: Weakness, Malaise Physical Examination - Vital Signs Temperature: 98.0 F Blood Pressure: 97/55 Pulse: 117 Respirations: 16 Pulse Ox (%): 100 - Physical Exam General: Alert, In no apparent distress HEENT: Atraumatic, PERRLA, EOMI Neck: Supple, JVD not distended Respiratory: Clear to auscultation bilaterally, Normal air movement Cardiovascular: Regular rate/rhythm, Normal S1 S2 Gastrointestinal: Normal bowel sounds, No tenderness Musculoskeletal: No tenderness Integumentary: No rashes Neurological: Normal speech, Normal tone, Normal affect Lymphatics: No axilla or inguinal lymphadenopathy - Studies Laboratory Data (last 24 hrs) 01/14/21 15:06: Sodium 131 L, Potassium 5.1, BUN 17, Creatinine 1.02, Glucose 708 H* 01/14/21 15:06: WBC 8.50 D, Hgb 11.2 L, Hct 36.3, Plt Count 361 Assessment & Plan - Problems (Diagnosis) (1) DKA (diabetic ketoacidoses) Current Visit: No Status: Acute Plan: will admit her to the hospital. Start her on fluids and iv insulin. Will replace magnesium and potassium as needed. Will have her in the ICU. Will need to try getting her a pump and a cgm as an outpatient. 01/15 Patient out of dka. Will stop the insulin drip. Start the patient on 15 units of levemir. She normally takes 20 units. Will also start feeding her. Will see if she tolerates this. Move her out of the unit if she does. Will consider discharge tomorrow. Continue IV fluids. Qualifiers: Diabetes mellitus type: type 1 Diabetes mellitus complication detail: without coma Qualified Code(s): E10.10 - Type 1 diabetes mellitus with ketoacidosis without coma (2) Depression Current Visit: Yes Status: Chronic Plan: will restart her sertraline in the morning. Qualifiers: Depression Type: major depressive disorder Major depression recurrence: recurrent Active/Remission status: in partial remission Qualified Code(s): F33.41 - Major depressive disorder, recurrent, in partial remission Discharge Plan: Home Plan to discharge in: 24 Hours - Code Status/Comfort Care Code Status Assessed: No Physician Review: Patient Assessed, Agree with Above Assessment and Plan Critical Care: Yes Time Spent Managing Pts Care (In Minutes): 20
[2021-01-15 12:43] LABS: Albumin 2.6 g/dL (3.4-5.0); Bilirubin Total 0.2 mg/dL (0.2-1.0); Potassium 4.1 mmol/L (3.5-5.1); Protein, Total 5.8 g/dL (6.4-8.2)
[2021-01-15] MEDS: ENOXAPARIN 40 MG/0.4 ML SQ SCH (16:54)
[2021-01-16] MEDS: NA CHLORIDE 0.9% 1,000 ML IV SCH (04:45)
[2021-01-16] MEDS: PANTOPRAZOLE 40MG TABLET PO SCH (05:26)
[2021-01-16 05:42] LABS: Absolute Lymphocytes (CBC) 3.4 K/uL (0.7-4.9); Basophils % 0.8 % (0-1.3); Hematocrit 29.8 % (36.0-45.0); Lymphocytes % 49.2 % (15.3-44.8); MPV 7.4 fL (7.6-11.3); RBC Red Blood Cell Count 3.68 M/uL (3.86-4.86)
[2021-01-16 06:08] LABS: ALT/SGPT 15 U/L (12-78); AST/SGOT 9 U/L (15-37); Albumin 2.6 g/dL (3.4-5.0); Alkaline Phosphatase 128 U/L (45-117); BUN Blood Urea Nitrogen 11 mg/dL (7-18); Bicarbonate 20 mmol/L (21-32); Bilirubin Total 0.2 mg/dL (0.2-1.0); Glucose Level 368 mg/dL (74-106); Potassium 3.8 mmol/L (3.5-5.1); Protein, Total 5.9 g/dL (6.4-8.2); Sodium Level 138 mmol/L (136-145)
[2021-01-16] MEDS: INSULIN GLARGINE 100 UNITS/ML SQ SCH (08:45)
[2021-01-16] MEDS: INSULIN -REGULAR HUMAN 50 UNIT/0.5 ML ML SQ SCH ×4 (08:45→20:41)
[2021-01-16] MEDS: FOLIC ACID 1 MG TABLET PO SCH (08:46)
[2021-01-16] MEDS: ONDANSETRON 4 MG/2 ML VIAL IV PRN (08:46)
[2021-01-16] MEDS ORDERED: POTASSIUM CL SA 10 MEQ TAB PO ONE (09:00)
[2021-01-16] MEDS ORDERED: SUMATRIPTAN SUCCI 50 MG TAB PO PRN (12:13)
[2021-01-16] MEDS ORDERED: ACETAMIN/CAFFEINE/BUTALB TAB PO PRN (12:13)
[2021-01-16] MEDS ORDERED: DICLOFENAC SOD D.R. 75 MG TAB PO PRN (12:13)
[2021-01-16] MEDS ORDERED: D50W 25 GM/50 ML SYRINGE IV PRN (12:16)
[2021-01-16] MEDS ORDERED: GLUCAGON 1 MG/VIAL IM PRN (12:16)
--- NOTE | 2021-01-16 12:29 | P.PN ---
Subjective Date of Service: 01/16/21 Primary Care Provider: Blayne Chief Complaint: DKA Subjective: New changes (complainting of migraine headaches. Was given morphine last night for her pain) Review of Systems Neurological: Other (migraine headaches) Physical Examination - Vital Signs Temperature: 98.4 F Blood Pressure: 127/80 Pulse: 83 Respirations: 16 Pulse Ox (%): 100 - Physical Exam General: Alert, In no apparent distress HEENT: Atraumatic, PERRLA, EOMI Neck: Supple, JVD not distended Respiratory: Clear to auscultation bilaterally, Normal air movement Cardiovascular: Regular rate/rhythm, Normal S1 S2 Gastrointestinal: Normal bowel sounds, No tenderness Musculoskeletal: No tenderness Integumentary: No rashes Neurological: Normal speech, Normal tone, Normal affect Lymphatics: No axilla or inguinal lymphadenopathy Assessment & Plan - Problems (Diagnosis) (1) Depression Current Visit: Yes Status: Chronic Plan: will restart her sertraline in the morning. Qualifiers: Depression Type: major depressive disorder Major depression recurrence: recurrent Active/Remission status: in partial remission Qualified Code(s): F33.41 - Major depressive disorder, recurrent, in partial remission (2) DKA (diabetic ketoacidoses) Current Visit: No Status: Acute Plan: will admit her to the hospital. Start her on fluids and iv insulin. Will replace magnesium and potassium as needed. Will have her in the ICU. Will need to try getting her a pump and a cgm as an outpatient. 01/16 resolved. Will d/c fluids. Increase her morphine to 20 units. Her regular dosage. Qualifiers: Diabetes mellitus type: type 1 Diabetes mellitus complication detail: without coma Qualified Code(s): E10.10 - Type 1 diabetes mellitus with ketoacidosis without coma (3) Migraine aura, persistent, intractable, with status migrainosus Current Visit: Yes Status: Acute Plan: acute on chronic. She has daily headache and nausea. Her midas score is 270. Which may be the maximum. Not sure if this is true. However either way she has class 4 migranes. The patient will be started on phenergan, sumatriptan and fiorcet and diclofenac. No steroids as it may cause dka again. Will consider oxygen. Discussed her getting a headache mary and tracking her symptoms. - Code Status/Comfort Care Code Status Assessed: No Physician Review: Patient Assessed, Agree with Above Assessment and Plan Critical Care: No Time Spent Managing Pts Care (In Minutes): 35
[2021-01-16] MEDS: ENOXAPARIN 40 MG/0.4 ML SQ SCH (17:54)
[2021-01-17] MEDS: PANTOPRAZOLE 40MG TABLET PO SCH (05:44)
[2021-01-17 06:16] LABS: Absolute Lymphocytes (CBC) 3.2 K/uL (0.7-4.9); Basophils % 1.1 % (0-1.3); Hematocrit 33.7 % (36.0-45.0); Lymphocytes % 53.6 % (15.3-44.8); MPV 7.7 fL (7.6-11.3); RBC Red Blood Cell Count 4.17 M/uL (3.86-4.86)
[2021-01-17 06:29] LABS: ALT/SGPT 17 U/L (12-78); AST/SGOT 12 U/L (15-37); Albumin 2.8 g/dL (3.4-5.0); Alkaline Phosphatase 138 U/L (45-117); BUN Blood Urea Nitrogen 10 mg/dL (7-18); Bicarbonate 26 mmol/L (21-32); Bilirubin Total 0.2 mg/dL (0.2-1.0); Glucose Level 215 mg/dL (74-106); Potassium 3.6 mmol/L (3.5-5.1); Protein, Total 6.5 g/dL (6.4-8.2); Sodium Level 140 mmol/L (136-145)
[2021-01-17] MEDS ORDERED: INSULIN GLARGINE 100 UNITS/ML SQ SCH (08:00)
[2021-01-17 08:30] LABS: Blood Morphology Comment NOT SEEN (NOT SEEN); Platelet Estimate ADEQ
[2021-01-17] MEDS: INSULIN -REGULAR HUMAN 50 UNIT/0.5 ML ML SQ SCH ×2 (09:53→11:30)
[2021-01-17] MEDS: FOLIC ACID 1 MG TABLET PO SCH (09:54)
[2021-01-17 10:55] VITALS: O2SAT 98
[2021-01-17 12:04] VITALS: BP 122/64; TEMP 98.4
--- NOTE | 2021-01-17 14:16 | P.DS ---
Admission Date: 01/14/21 Discharge Date: 01/17/21 Primary Care Provider: Blayne Disposition: ROUTINE DISCHARGE Discharge Condition: GOOD Reason for Admission: DKA - Problems (1) Depression Current Visit: Yes Status: Chronic Qualifiers: Depression Type: major depressive disorder Major depression recurrence: recurrent Active/Remission status: in partial remission Qualified Code(s): F33.41 - Major depressive disorder, recurrent, in partial remission (2) DKA (diabetic ketoacidoses) Current Visit: No Status: Acute Qualifiers: Diabetes mellitus type: type 1 Diabetes mellitus complication detail: without coma Qualified Code(s): E10.10 - Type 1 diabetes mellitus with ketoacidosis without coma (3) Migraine aura, persistent, intractable, with status migrainosus Current Visit: Yes Status: Acute Brief History of Present Illness: Patient is her for DKA. She has a history of DM1. She has had them in the past with her periods. Which is what happened yesterday. She came into the ER. Was found to be in Dka. I had accepted her. However the patient left AMA. She felt she could handle this. However the patient started vomitting at work. Called EMS. Her labs were worse. She agreed to get admitted this time. She has an anion gap of 24 with a co2 of 8. So fairly acidotic. Hospital Course: Patient was admitted for dka. She was in the icu on an insulin drip. The patient gap closed relatively quickly. We moved her to the floors. Had social media marketing specialist see the patient to get her insurance The patient reported migranes in house. She stated she has chronic migranes with class 4 medications This is a new information. The patient was started on sumatriptan, and pherrgan. The patient wants to go home today. She states she has not been getting enough insulin Nursing has been requesting she not drink soda. The patient refuses to abstain from soda. States we are not giving her enough insulin. As a type 1 she is probably very good at carb counting. The patient can follow up with us. However I think her headaches are due to fluctation of her sugar. Vital Signs/Physical Exam: Temp Pulse Resp BP Pulse Ox 98.4 F 75 15 122/64 100 01/17/21 12:00 01/17/21 12:00 01/17/21 12:01/17/21 12:00 01/17/21 12:00 General: Alert, In no apparent distress HEENT: Atraumatic, PERRLA, EOMI Neck: Supple, JVD not distended Respiratory: Clear to auscultation bilaterally, Normal air movement Cardiovascular: Regular rate/rhythm, Normal S1 S2 Gastrointestinal: Normal bowel sounds, No tenderness Musculoskeletal: No tenderness Integumentary: No rashes Neurological: Normal speech, Normal tone, Normal affect Lymphatics: No axilla or inguinal lymphadenopathy Laboratory Data at Discharge: WBC 5.90 K/uL (4.3-10.9) D 01/17/21 05:46 Hgb 11.3 g/dL (12.0-15.0) L 01/17/21 05:46 Hct 33.7 % (36.0-45.0) L 01/17/21 05:46 Plt Count 324 K/uL (152-406) 01/17/21 05:46 Sodium 140 mmol/L (136-145) 01/17/21 05:46 Potassium 3.6 mmol/L (3.5-5.1) 01/17/21 05:46 BUN 10 mg/dL (7-18) 01/17/21 05:46 Creatinine 0.74 mg/dL (0.55-1.3) 01/17/21 05:46 Glucose 215 mg/dL (74-106) H 01/17/21 05:46 Total Bilirubin 0.2 mg/dL (0.2-1.0) 01/17/21 05:46 AST 12 U/L (15-37) L 01/17/21 05:46 ALT 17 U/L (12-78) 01/17/21 05:46 Alkaline Phosphatase 138 U/L (45-117) H 01/17/21 05:46 Home Medications: Sertraline [Zoloft*] 100 mg PO DAILY 11/27/20 Insulin Aspart [Novolog Flexpen] See Protocol SQ SEECOM #1 box 11/28/20 Insulin Detemir [Levemir] 20 units SQ DAILY #1 vial 11/28/20 Sumatriptan [Imitrex*] 50 mg PO PRN PRN 30 Days #14 tab 01/17/21 Ubrogepant [Ubrelvy] 50 mg PO DAILY 30 Days #30 tablet 01/17/21 New Medications: Sumatriptan [Imitrex*] 50 mg PO PRN PRN 30 Days #14 tab PRN Reason: Pain Scale 8-10 (Severe) Ubrogepant [Ubrelvy] 50 mg PO DAILY 30 Days #30 tablet Physician Discharge Instructions: PROBLEM: DKA GOAL: Clear understanding of disease process INSTRUCTIONS: Diet: DIABETIC Activity: TOLERATED IF YOU HAVE ANY QUESTIONS REGARDING YOUR STAY CALL [phone] IF YOUR SYMPTOMS WORSEN CALL 911 OR GO TO THE ED. Diet: ADA Activity: Ad ignacio Followup: Tarun Cisneros MD [ACTIVE - CAN ADMIT] - 1 Week (Call to make an appointment. ) NONE,NONE [Primary Care Provider] - Time spent managing pt's care (in minutes): 40
== END 2021-01-17 14:18 | disposition home or self-care (01) | DRG 639 ==
LOC: ER 14:44 → ERHOLD 17:14 → 2ND 01-15 15:01
PROVIDERS: ADMIT Internal Medicine; ATTEND Internal Medicine
DX: E10.10 Type 1 diabetes mellitus with ketoacidosis without coma (principal); F33.41 Major depressive disorder, recurrent, in partial remission; G43.511 Persistent migraine aura without cerebral infarction, intractable, with status migrainosus; Z91.040 Latex allergy status; Z88.5 Allergy status to narcotic agent; Z88.8 Allergy status to other drugs, medicaments and biological substances; Z91.018 Allergy to other foods; Z79.82 Long term (current) use of aspirin; Z79.4 Long term (current) use of insulin; Z79.899 Other long term (current) drug therapy; Z20.822 Contact with and (suspected) exposure to COVID-19
CPT/HCPCS: 36415; 80048; 80053; 80076; 81003; 81025; 82010; 82805; 82947; 83690; 84100; 85025; 96374; 99283; 99285; J1650; J1815; J2270; J2405; J2550; J3480; J7030; J7799; U0003

== ENCOUNTER 2021-09-15 12:27 | Emergency (ER) | payer OTHER ==
--- OUTSIDE RECORDS SUMMARY | 2021-09-15 12:34 | XMS REPORT | Continuity of Care Document ---
:2000 Author Organization [facility] t Address [address] [place] [address] Care Team Providers Name Role Phone Tanvi HIGGINS Primary Care Physician Unavailable MANISH Attending Clinician Unavailable Manish BRENNER Attending Clinician Kathrine Blas Attending Clinician TRINITY CRAWLEY Attending Clinician Unavailable STANISLAW HODGES Attending Clinician Unavailable TRENTON CHACON Attending Clinician Unavailable LEOBARDO HANSEN Admitting Clinician Unavailable SAM, JORGE LUIS Admitting Clinician Unavailable TRENTON CHACON Admitting Clinician Unavailable Payers Payer Name Policy Type Policy Number Effective Date Expiration Date Anastasiya WINSLOW [id number] 2020 HEALTH 00:00:00 Problems Condition Condition Condition Status Onset Resolution Last Treating Co mments Source Name Details Category Date Date Treatment Clinician Date Hyperglyce Hyperglyce Disease Active U nivers pablo pablo 8-13 ity of 00:00: [place] [facility] Diabetic Diabetic Disease Active Unive rs gastropare gastropare 8-05 it y of sis sis 00:00: [place] 00 [facility] Other Other Disease Active Univers general general 4-14 ity of counseling [place] and advice and advice 00 Me dical for for Branch contracept contracept jose jose management management 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 4-14 ity of mellitus mellitus 00:00: [place] with with 00 [facility] diabetic diabetic [place] autonomic autonomic neuropathy neuropathy Well woman Well woman Disease Active U nivers exam exam 3-24 ity of 00:00: [place] 00 [facility] Acute Acute Disease Active Univers blood loss blood loss 3-02 it y of anemia anemia 00:00: [place] [facility] Diabetic Diabetic Disease Active Unive rs ketoacidos ketoacidos 2-01 it y of is without is without 00:[place] coma coma 00 Medical associated associated Br anch with type with type 1 diabetes 1 diabetes mellitus mellitus Bipolar Bipolar Disease Active Univers disease disease 1-14 ity of during during 00:00: [place] , , 00 Me dical antepartum antepartum Br anch Vaginal Vaginal Disease Active Univers itching itching 1-06 ity of 00:00: [place] 00 [facility] Vaginal Vaginal Disease Active 2019-08 Univers bleeding bleeding 0-22 ity of 00:00: [place] 00 [facility] Diabetic Diabetic Disease Active 2016-08 [facility] ketoacidos ketoacidos 1-15 [facility] - is without is without 00:00: Me dical coma coma 00 Center associated associated with with diabetes diabetes mellitus mellitus due to due to underlying underlying condition condition Dyspareuni Dyspareuni Disease Active 2016-08 U nivers a in a in 0-25 ity of female female 00:00: Medical Branch Diabetic Diabetic Disease Active 2016-08 [facility] ketoacidos ketoacidos 0-16 [place] - is without is without 00:00: Me dical coma coma 00 Center associated associated with type with type 1 diabetes 1 diabetes mellitus mellitus History of History of Disease Active U nivers tubal tubal 9-12 ity of ligation ligation 00:00: Medical Branch DKA, type DKA, type Disease Active [facility] Medical [facility] Center Nausea Nausea Disease Active [facility] - 00:[facility]: Medical 00 Center Depressive Depressive Disease Active Overview : Univers disorder disorder 3-17 Formattin ity of 00:00: g of this 00 note Medical might be Branch different from the original. wellbutri n 1 yr ago- self d/c. Attention Attention Disease Active Overview: Univers deficit deficit 3-17 Formattin ity o f hyperactiv hyperactiv 00:00: g of this [place] ity ity 00 note Medical disorder disorder might be Bran ch (ADHD) (ADHD) different from the original. 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 Allergies, Adverse Reactions, Alerts Allergy Allergy Status Severity Reaction(s) Onset Inactive Treating Comm ents Source Name Type Date Date Clinician CEPHALEX DRUG Active Hives Univers IN INGREDI 04-09 ity of 00:00: Medical Branch Cephalex Propensi Active Hives Univer s in ty to 04-09 ity of adverse 00:00: [place] reaction 00 Medical s Branch Tree Nut Propensi Active 2016-[address] [facility] ty to 1-15 [facility] - adverse 00:00: Medical reaction 00 Center s Onion Propensi Active Hives 2016-[address] [facility] ty to 0-16 [facility] - adverse 00:00: Medical reaction 00 Center s Latex Propensi Active Rash [facility] ty to 9-05 [facility] - adverse 00:00: Medical reaction 00 Center s Acetamin Propensi Active Rash Bumps in [facility] ophen-Pa ty to 9-05 mouth [facility] - mabrom adverse 00:00: Medical reaction 00 Center s Prometha Propensi Active Anxiety Severe [facility] t zine ty to 04-07 anxiety [facility] - adverse 00:00: attacks Medical reaction 00 Center s ACETAMIN DRUG Active Low Rash Univers OPHEN-PA 04-07 ity of MABROM 00:00: [place] 00 Medical Branch PROMETHA DRUG Active Low Anxiety Univers ZINE INGREDI 04-07 ity of 00:00: [place] 00 Medical Branch PROMETHA DRUG Active Other-Cmnt Univ ers ZINE HCL INGREDI 01-29 ity of 00:00: [place] 00 Medical Branch LATEX DRUG Active Low Rash Univers INGREDI 01-29 ity of 00:00: [place] 00 Medical Branch Latex Propensi Active Rash Univers ty to 01-29 ity of adverse 00:00: [place] reaction 00 Medical s to Branch drug Prometha Propensi Active Other - See Anxiety Univers zine Hcl ty to comments 01-29 and chest ity of adverse 00:00: pressure [place] reaction Medical s Branch MIDOL DRUG Active Med Other-Cmnt Univer s (IBUPROF 2- ity of EN) 00:00: [place] 00 Medical Branch Midol Propensi Active Other - See Pt Uni vers (Ibuprof ty to comments 09-09 reported ity of en) adverse 00:00: that her [place] reaction 00 mouth Medical s to gets Branch drug "itchy and swollen" when she takes Midol and Midol Teen. Dr. Guo notified. Sister insists that pt is only allergic to Midol, NOT ibuprofen . Social History Social Habit Start Date Stop Date Quantity Comments Source Exposure to Not sure [facility] SARS-CoV-2 [place] Medical (event) Branch Alcohol intake 2017-06-17 2017-06-[address] [facility] - 00:00:00 00:00:00 non-drinker of Medical Ce nter alcohol (finding) Tobacco use and 2017-04-07 2017-04-[address] [facility] [address] [facility] kes - exposure 00:00:00 00:00:00 Medical Center History of 2016-06-[address] [facility] - tobacco use 00:00:00 Medical [facility] r Sex Assigned At [address] [facility] - 00:00:00 00:00:00 Medical Center Smoking Status Start Date Stop Date Source Former smoker 2016-10-21 00:00:00 2016-10-21 00:00:00 [facility] Medical Branch Medications Ordered Filled Start Stop Current Ordering Indication Dosage Frequency Signature Comments Components Source Medication Medication Date Date Medication? Clinician (SIG) Name Name Lamotrigine Yes [id number] 100mg Take 100 Univers (LAMICTAL 2-03 mg by ity of XR) 100 mg 00:00: mouth [place] [address] 00 daily. Medical Start 50 Branch mg first week, then 100 mg afterwards traZODone 0 Yes [id number] 100mg Take 1 U nivers 100 mg 2-03 tablet by ity of tablet 00:00: mouth at [place] 00 bedtime. Medical Branch Lamotrigine Yes [id number] 100mg Take 100 Univers (LAMICTAL 2-03 mg by ity of XR) 100 mg 00:00: mouth [place] [address] 00 daily. Medical Start 50 Branch mg first week, then 100 mg afterwards traZODone Yes [id number] 100mg Take 1 U nivers 100 mg 2-03 tablet by ity of tablet 00:00: mouth at [place] 00 bedtime. Medical Branch Lamotrigine 2021-2021- Yes [id number] 50mg Take 1 Univers (LAMICTAL 2-03 02-11 tablet by ity of XR) 50 mg 00:00: 05:59 mouth [place] tablet 00 :00 daily for Medical 7 days. Branch ondansetron Yes [id number] 4mg Take 1 Univers (ZOFRAN) 4 1-03 tablet by ity of mg tablet 00:00: mouth [place] 00 every 8 Medical (eight) Branch hours as needed for Nausea and Vomiting (N/V). benzonatate Yes [id number] 200mg Take 1 Univers 200 mg 1-03 capsule by ity of capsule 00:00: mouth 3 [place] 00 (three) Medical times Branch daily as needed for Cough. traMADoL 0 Yes [id number] 50mg Take 1 Univers (ULTRAM) 50 1-03 tablet by ity of mg tablet 00:00: mouth [place] 00 every 6 Medical (six) Branch hours as needed for Pain (scale 7-10). Indication s: acute pain ondansetron Yes [id number] 4mg Take 1 Univers (ZOFRAN) 4 1-03 tablet by ity of mg tablet 00:00: mouth [place] 00 every 8 Medical (eight) Branch hours as needed for Nausea and Vomiting (N/V). benzonatate Yes [id number] 200mg Take 1 Univers 200 mg 1-03 capsule by ity of capsule 00:00: mouth 3 [place] 00 (three) Medical times Branch daily as needed for Cough. traMADoL Yes [id number] 50mg Take 1 Univers (ULTRAM) 50 1-03 tablet by ity of mg tablet 00:00: mouth [place] 00 every 6 Medical (six) Branch hours as needed for Pain (scale 7-10). Indication s: acute pain insulin 2020-08 Yes [id number] 35U inject 35 U nivers degludec 0-05 Units ity of (TRESIBA 00:00: [place] FLEXTOUCH 00 skin at Medical U-100) 100 bedtime. Branc h unit/mL (3 mL) InPn insulin 2020-08 Yes [id number] 15U inject 15 U nivers aspart 0-05 Units ity of U-100 00:00: under the [place] (NOVOLOG 00 skin 3 Medical FLEXPEN (three) Branch U-100 times INSULIN) daily 100 unit/mL before (3 mL) meals. injection famotidine 2020-08 Yes [id number] 20mg Take 1 Univers (PEPCID) 20 0-05 tablet by ity of mg tablet 00:00: mouth [place] 00 daily. Medical Branch metoclopram 2020-08 Yes [id number] 10mg Take 1 Univers jeremiah HCl 10 0-05 tablet by ity of mg tablet 00:00: mouth [place] 00 before Medical meals and Branch at bedtime. pen needle, 2020-08 Yes [id number] 200{eac 200 Each 6 Univers diabetic 31 0-05 h} (six) ity of gauge x 00:00: times [place] 08/08" [place] 00 daily. Medical Branch insulin 2020-08 Yes [id number] 35U inject 35 U nivers degludec 0-05 Units ity of (TRESIBA 00:00: [place] FLEXTOUCH 00 skin at Medical U-100) 100 bedtime. Branc h unit/mL (3 mL) InPn insulin 2020-08 Yes [id number] 15U inject 15 U nivers aspart 0-05 Units ity of U-100 00:00: under the [place] (NOVOLOG 00 skin 3 Medical FLEXPEN (three) Branch U-100 times INSULIN) daily 100 unit/mL before (3 mL) meals. injection famotidine 2020-08 Yes [id number] 20mg Take 1 Univers (PEPCID) 20 0-05 tablet by ity of mg tablet 00:00: mouth [place] 00 daily. Medical Branch metoclopram 2020-08 Yes [id number] 10mg Take 1 Univers jeremiah HCl 10 0-05 tablet by ity of mg tablet 00:00: mouth [place] 00 before Medical meals and Branch at bedtime. pen needle, 2020-08 Yes [id number] 200{eac 200 Each 6 Univers diabetic 31 0-05 h} (six) ity of gauge x 00:00: times [place] 08/08" Ndle 00 daily. Medical Branch benzonatate Yes [id number] 100mg Take 1 Univers (TESSALON 9-15 capsule by ity of HALIE) 100 00:00: mouth 3 [place] mg capsule 00 (three) Medica l times Branch daily as needed for Cough. azelastine Yes [id number] 1{spray Use 1 Univers 137 mcg 9-15 } [place] in ity of (0.1 %) 00:00: each [place] nasal spray 00 nostril 2 Med ical (two) Branch times daily. Use in each nostril as directed benzonatate Yes [id number] 100mg Take 1 Univers (TESSALON 9-15 capsule by ity of PERLES) 100 00:00: mouth 3 [place] mg capsule 00 (three) Medica l times Branch daily as needed for Cough. azelastine Yes [id number] 1{spray Use 1 Univers 137 mcg 9-15 } [place] in ity of (0.1 %) 00:00: each [place] nasal spray 00 nostril 2 Med ical (two) Branch times daily. Use in each nostril as directed azithromyci Yes Univer s n 500 mg 7-23 ity of tablet 00:00: [place] 00 Medical Branch azithromyci Yes Univer s n 500 mg 7-23 ity of tablet 00:00: [place] 00 Medical Branch ketorolac 2020-0 Yes [id number] 10mg Take 1 Un braldy 10 mg 6-20 tablet by ity of tablet 00:00: mouth [place] 00 every 6 Medical (six) Branch hours as needed for Pain (scale 7-10). ketorolac 2020-0 Yes [id number] 10mg Take 1 Un bradly 10 mg 6-20 tablet by ity of tablet 00:00: mouth [place] 00 every 6 Medical (six) Branch hours as needed for Pain (scale 7-10). loratadine 0 Yes Univers 10 mg 6-08 ity of tablet 00:00: [place] 00 Medical Branch loratadine 0 Yes Univers 10 mg 6-08 ity of tablet 00:00: [place] 00 Medical Branch ferrous 2020-0 Yes [id number] 325mg Take 1 Un bradly sulfate 3-05 tablet by ity of (IRON) 325 00:00: mouth 3 [place] mg (65 mg 00 (three) Medical iron) times Branch tablet daily with meals. foLIC acid Yes [id number] 1mg Take 1 Univers 1 mg tablet 3-05 tablet by ity of 00:00: mouth 00 daily. Medical Branch docusate 0 Yes [id number] 240mg Take 1 U nivers calcium 240 3-05 capsule by it y of mg capsule 00:00: mouth [place] 00 daily as Medical needed for Branch Constipati on. ibuprofen 0 Yes [id number] 600mg Take 1 Univers 600 mg 3-05 tablet by ity of tablet 00:00: mouth [place] 00 every 6 Medical (six) Branch hours as needed (Pain). Take with food or milk. ferrous Yes [id number] 325mg Take 1 Un bradly sulfate 3-05 tablet by ity of (IRON) 325 00:00: mouth 3 [place] mg (65 mg 00 (three) Medical iron) times Branch tablet daily with meals. foLIC acid 0 Yes [id number] 1mg Take 1 Univers 1 mg tablet 3-05 tablet by ity of 00:00: mouth [place] 00 daily. Medical Branch docusate 0 Yes [id number] 240mg Take 1 U nivers calcium 240 3-05 capsule by it y of mg capsule 00:00: mouth once [place] 00 daily as Medical needed for Branch Constipati on. ibuprofen Yes [id number] 600mg Take 1 Univers 600 mg 3-05 tablet by ity of tablet 00:00: mouth [place] 00 every 6 Medical (six) Branch hours as needed (Pain). Take with food or milk. 2019-08 Yes [id number] 1{tbl} Take 1 U nivers vitamin 0-27 tablet by ity of w/FA tablet 00:00: mouth [place] 00 daily. Medical Branch 2019-08 Yes [id number] 1{tbl} Take 1 U nivers vitamin 0-27 tablet by ity of w/FA tablet 00:00: mouth [place] 00 daily. Medical Branch Lancets 2019-[address] [facility] Misc 0-06 check ity of 00:00: blood [place] 00 sugar four Medical times Branch daily Lancets 2019-[address] [facility] Misc 0-06 check ity of 00:00: blood [place] 00 sugar four Medical times Branch daily medroxyPROG 2016-08 Yes 150mg Inject [address] [facility] ESTERone 1-17 contracepti mg Luke s - (DEPO-PROVE 12:40: on intramuscu Medical RA) 150 09 larly Center mg/mL every 3 injection (three) months. sertraline 2016-08 Yes anxiety 50mg QD Take [address] [facility] (ZOLOFT) 50 -17 with by mouth Luke s - MG tablet 12:40: depression daily. Medical Center traZODone 2016-08 Yes insomnia 50mg QD [...] In insulin Yes If [facility] regular 9-07 MT=[id number] [facility] - (HUMULIN 00:00: , give Medical R,NOVOLIN 00 1unitIf Center R) 100 OW=109-495 unit/mL , give injection 2unitsIf JL=135-515 , give 4unitsIf UO=920-992 , give 6unitsIf PI=231-907 , give 8units. glucagon 2013-08 Yes [id number] 1mg 1 mg by U nivers (GLUCAGON 2-22 Intramuscu ity of EMERGENCY) 00:00: lar route [place] 1 mg 00 as needed Medical injection (For Branch severe hypoglycem ia). glucagon 2013-08 Yes [id number] 1mg 1 mg by U nivers (GLUCAGON 2-22 Intramuscu ity of EMERGENCY) 00:00: lar route [place] 1 mg 00 as needed Medical injection (For Branch severe hypoglycem ia). Immunizations Ordered Immunization Filled Immunization Date Status Commen ts Source Name Name SARS-COV-2 COVID-19 2020-11-10 Completed Unive rsity of PFIZER VACCINE 00:00:00 [facility] SARS-COV-2 COVID-19 2020-11-10 Completed Unive rsity of PFIZER VACCINE 00:00:00 [facility] SARS-COV-2 COVID-19 2020-10-20 Completed Unive rsity of PFIZER VACCINE 00:00:00 [facility] SARS-COV-2 COVID-19 2020-10-20 Completed Unive rsity of PFIZER VACCINE 00:00:00 [facility] TDAP 2020-09-13 Completed University 00:00:00 [facility] TDAP 2020-09-13 Completed University 00:00:00 [facility] Influenza Virus 2020-06-11 Completed Universit y of Vaccine Quad .5 mL 00:00:00 [facility] 6+ MO [place] Influenza Virus 2020-06-11 Completed Universit y of Vaccine Quad .5 mL 00:00:00 [facility] 6+ MO Branch HPV9 2017-07-14 Completed University of 00:00:00 [facility] HPV9 2017-07-14 Completed University of 00:00:00 [facility] Influenza Virus 2017-05-18 Completed Universit y of Vaccine (3+ yrs) [facility] 2017-05-18 Completed Universit y of Vaccine (3+ yrs) 00:00:00 [facility] Influenza Three-TIV 2017-05-18 [facility] PF 5+ YR 00:00:00 [facility] HPV9 2017-04-14 Completed University of 00:00:00 [facility] TDAP (ADACEL) 2017-04-14 Completed University of VACCINE 00:00:00 [facility] HPV9 2017-04-14 Completed University of 00:00:00 [facility] TDAP (ADACEL) 2017-04-14 Completed University of VACCINE 00:00:00 [facility] TDAP 2015-12-27 Completed University of 00:00:00 [facility] TDAP 2015-12-27 Completed University of 00:00:00 [facility] Influenza Virus 2015-09-07 Completed Universit y of Vaccine Quad IM 3+ 00:00:00 [facility] Branch Influenza Virus 2015-09-07 Completed Universit y of Vaccine Quad IM 3+ 00:00:00 [facility] Branch HPV 2015-01-24 Completed University of 00:00:00 [facility] HPV 2015-01-24 Completed University of 00:00:00 [facility] Pneumococcal 13 2014-07-20 Completed Universit y of Conjugate, PCV13 00:00:00 [facility] dical (Prevnar 13) Branch Pneumococcal 13 2014-07-20 Completed Universit y of Conjugate, PCV13 00:00:00 [facility] dical (Prevnar 13) Branch Meningococcal 2010-06-06 Completed University of Vaccine 00:00:00 [facility] TDAP 2010-06-06 Completed University of 00:00:00 [facility] Meningococcal 2010-06-06 Completed University of Vaccine 00:00:00 [facility] TDAP 2010-06-06 Completed University of 00:00:00 [facility] Varicella 2008-03-09 Completed University of (varivax)(chicken 00:00:00 [facility] edical pox) Branch Varicella 2008-03-09 Completed University of (varivax)(chicken 00:00:00 [place] M edical pox) Branch HEPATITIS A 2006-03-09 Completed University of 00:00:00 [facility] HEPATITIS A 2006-03-09 Completed University of 00:00:00 [facility] HEPATITIS A 2005-05-22 Completed University of 00:00:00 [facility] Hep B, Adol or Pedi 2005-05-22 Completed Unive rsity of Dosage 00:00:00 [facility] Polio (IPV/OPV) 2005-05-22 Completed Universit y of 00:00:00 [facility] Td 2005-05-22 Completed University of 00:00:00 [facility] HEPATITIS A 2005-05-22 Completed University of 00:00:00 [facility] Hep B, Adol or Pedi 2005-05-22 Completed Unive rsity of Dosage 00:00:00 [facility] Polio (IPV/OPV) 2005-05-22 Completed Universit y of 00:00:00 [facility] Td 2005-05-22 Completed University of 00:00:00 [facility] DTAP 2005-01-14 Completed University of 00:00:00 [facility] Hep B, Adol or Pedi 2005-01-14 Completed Unive rsity of Dosage 00:00:00 [facility] MMR 2005-01-14 Completed University of 00:00:00 [facility] Polio (IPV/OPV) 2005-01-14 Completed Universit y of 00:00:00 [facility] DTAP 2005-01-14 Completed University of 00:00:00 [facility] Hep B, Adol or Pedi 2005-01-14 Completed Unive rsity of Dosage 00:00:00 [facility] MMR 2005-01-14 Completed University of 00:00:00 [facility] Polio (IPV/OPV) 2005-01-14 Completed Universit y of 00:00:00 [facility] DTAP 2004-03-12 Completed University of 00:00:00 [facility] Hep B, Adol or Pedi 2004-03-12 Completed Unive rsity of Dosage 00:00:00 [facility] Polio (IPV/OPV) 2004-03-12 Completed Universit y of 00:00:00 [facility] DTAP 2004-03-12 Completed University of 00:00:00 [facility] Hep B, Adol or Pedi 2004-03-12 Completed Unive rsity of Dosage 00:00:00 [facility] Polio (IPV/OPV) 2004-03-12 Completed Universit y of 00:00:00 [facility] MMR 2004-03-11 Completed University of 00:00:00 [facility] Varicella 2004-03-11 Completed University of (varivax)(chicken 00:00:00 [facility] edical pox) Branch MMR 2004-03-11 Completed University of 00:00:00 [facility] Varicella 2004-03-11 Completed University of (varivax)(chicken 00:00:00 [facility] edical pox) Branch HEPATITIS A 2000-02-21 Completed University of 00:00:00 [facility] Varicella 2000-02-21 Completed University of (varivax)(chicken 00:00:00 [facility] edical pox) Branch HEPATITIS A 2000-02-21 Completed University of 00:00:00 [facility] Varicella 2000-02-21 Completed University of (varivax)(chicken 00:00:00 [place] edical pox) Branch Varicella 1999-08-08 Completed University of (varivax)(chicken 00:00:00 [place] M edical pox) Branch Varicella 1999-08-08 Completed University of (varivax)(chicken 00:00:00 [facility] edical pox) Branch Vital Signs Vital Name Observation Time Observation Value Comments Source Systolic blood 2021-09-05 19:50:00 106 mm[Hg] Univer sity of pressure [facility] Diastolic blood 2021-09-05 19:50:00 75 mm[Hg] Unive rsity of pressure [facility] Respiratory rate 2021-09-05 19:50:00 20 /min Univ ersity [facility] Body height 2021-09-05 19:50:00 162.6 cm [facility] Body weight 2021-09-05 19:50:00 65.409 kg [facility] BMI 2021-09-05 19:50:00 24.75 kg/m2 [facility] Procedures Procedure Date / Time Performed Performing Clinician Sour e CBC WITH DIFF 2021-09-05 20:34:00 Sheba Hammond Export o f [facility] URINALYSIS 2021-09-05 20:34:00 [facility] URINE CULTURE 2021-09-05 20:34:00 Sheba Hammond Export o [facility] Encounters Start End Encounter Admission Attending Care Care Encounter Source Date/Time Date/Time Type Type Clinicians Facility Department ID 2021-09-19 2021-09-[address] [facility] [id number] Univers 10:00:00 10:00:00 ity [facility] 2021-09-19 2021-09-19 [id number] Univers 00:00:00 00:00:00 SHEBA [id number] [facility] 2021-09-16 2021-09-16 [facility] [id number] Univers 15:30:00 15:30:00 SHEBA [id number] [facility] 2021-09-10 2021-09-10 [facility] [id number] Univers 00:00:00 00:00:00 Sheba [employer] [id number] it y of S[facility]NEY CENTER [id number] [place] RODERICK?BLEA [id number] [address] MEDICAL OFFICE BUILDING 2021-09-05 2021-09-05 [facility] [id number] Univers 13:30:00 14:23:24 Visit [facility] [id number] it y of SIDNEY CENTER [id number] [place] RODERICK?BLEA [id number] [address] MEDICAL OFFICE BUILDING 2021-09-05 2021-09-05 [facility] [id number] Univers 13:30:00 14:23:24 SHEBA [facility] 2020-11-14 2020-11-14 [facility] [id number] 13:09:00 14:20:05 Visit Eileen Chisholm MALTED MILK MIXER [id number] [facility] [id number] MATERNAL [id number] & CHILD [address] [place] [address] Results Test Description Test Time Test Comments Results Result Comments Source CBC WITH DIFF 2021-09-06 04:19:32 Test Item Value Reference Range Interpretation Comme nts WBC (test code = 6690-2) See_Comment [A utomated message] The system which ge nerated this result transmit prachi reference range: 4.30 - 1 1.10 10*3/?L. The reference r junito was not used to interpr et this result as normal/abnor mal. RBC (test code = 789-8) See_Comment [Au tomated message] The system which ge nerated this result transmit prachi reference range: 3.93 - 5 .25 10*6/?L. The reference r junito was not used to interpr et this result as normal/abnor mal. HGB (test code = 718-7) 14.3 g/dL 11.6-15.0 HCT (test code = 4544-3) 40.7 % 35.7-45.2 MCV (test code = 787-2) 78.7 fL 80.6-95.5 L MCH (test code = 785-6) 27.7 pg 25.9-32.8 MCHC (test code = 786-4) 35.1 g/dL 31.6-35.1 RDW-SD (test code = 72941-6) 33.6 fL 39.0-49.9 L RDW-CV (test code = 788-0) 11.8 % 12.0-15.5 L PLT (test code = 777-3) See_Comment H [Au tomated message] The system which ge nerated this result transmit prachi reference range: 166 - 35 8 10*3/?L. The reference range was not used to interpret th is result as normal/abnormal . MPV (test code = 63168-6) 9.3 fL 9.5-12.9 L NRBC/100 WBC (test code = See_Comment [ Automated message] The [id number]) system which ge nerated this result transmit prachi reference range: 0.0 - 10 .0 /100 WBCs. The reference r juniot was not used to interpr et this result as normal/abnor mal. NRBC x10^3 (test code = <0.01 See_Comment [Au tomated message] The [id number]) system which ge nerated this result transmit prachi reference range: 10*3/?L. The reference range was not u sed to interpret this result as normal/abnormal . GRAN MAT (NEUT) % (test code 45.2 % = 770-8) IMM GRAN % (test code = 0.30 % [id number]) LYMPH % (test code = 736-9) 44.8 % MONO % (test code = 5905-5) 6.8 % EOS % (test code = 713-8) 1.9 % BASO % (test code = 706-2) 1.0 % GRAN MAT x10^3(ANC) (test 2.68 10*3/uL 1.88-7.09 code = 2252128906) IMM GRAN x10^3 (test code = <0.03 0.00-0.06 [id number]) LYMPH x10^3 (test code = 2.65 10*3/uL 1.32-3.29 731-0) MONO x10^3 (test code = 0.40 10*3/uL 0.33-0.92 742-7) EOS x10^3 (test code = 0.11 10*3/uL 0.03-0.39 711-2) BASO x10^3 (test code = 0.06 10*3/uL 0.01-0.07 704-7) Lab Interpretation (test Abnormal code = 35953-6) [facility] PELVIC (TRANSVAGINAL ONLY)2018-03-16 14:02:32CLINICAL INDICATION: R10.2 Pelvic and perineal painTECHNIQUE:Real- time and doppler transvaginal ultrasound evaluation of the pelvis was performed on the X-IO [employer].Comparison study: No prior study.FINDINGS:Uterus: 8.2 x 3.9 [...] cm left ovarian cyst.2. No other significant findings.POCT-GLUCOSE [id number] 10:41:00 Test Item Value Reference Range Interpretation Comments POC-GLUCOSE METER 230 mg/dL 70-110 H TESTED AT [facility] [address] ([place]) (test code [employer] [facility] = 1538) [place] [address] POCT-GLUCOSE [id number] 08:32:00 Test Item Value Reference Range Interpretation Comments POC-GLUCOSE METER 70 mg/dL 70-110 TESTED AT [facility] [address] ([place]) (test code = [employer] [facility] 1538) [place] [address] POCT-GLUCOSE [id number] 05:13:00 Test Item Value Reference Range Interpretation Comments POC-GLUCOSE METER 152 mg/dL 70-110 H TESTED AT [address] ([place]) (test code [employer] [facility] = 1538) [place] [address] POCT-GLUCOSE [id number] 04:14:00 Test Item Value Reference Range Interpretation Comments POC-GLUCOSE METER 55 mg/dL 70-110 L TESTED AT [facility] [address] ([place]) (test code = [employer] 1538) [place] [address] POCT-GLUCOSE [id number] 20:37:00 Test Item Value Reference Range Interpretation Comments POC-GLUCOSE METER 204 mg/dL 70-110 H TESTED AT [facility] [address] ([place]) (test code [employer] [facility] = 1538) [place] [address] POCT-GLUCOSE [id number] 19:01:00 Test Item Value Reference Range Interpretation Comments POC-GLUCOSE METER 88 mg/dL 70-110 TESTED AT [facility] [address] ([place]) (test code = [employer] [facility] 1538) [place] [address] POCT-GLUCOSE [id number] 17:27:00 Test Item Value Reference Range Interpretation Comments POC-GLUCOSE METER 253 mg/dL 70-110 H TESTED AT [facility] [address] ([place]) (test code [employer] [facility] = 1538) [place] [address] POCT-GLUCOSE [id number] 15:36:00 Test Item Value Reference Range Interpretation Comments POC-GLUCOSE METER 366 mg/dL 70-110 H TESTED AT [facility] [address] (BEAKER) (test code [facility] = 1538) [place] [address] POCT-GLUCOSE [id number] 11:51:00 Test Item Value Reference Range Interpretation Comments POC-GLUCOSE METER 194 mg/dL 70-110 H TESTED AT [facility] [address] (BEAKER) (test code [facility] = 1538) [place] [address] POCT-GLUCOSE [id number] 10:19:00 Test Item Value Reference Range Interpretation Comments POC-GLUCOSE METER 147 mg/dL 70-110 H TESTED AT [facility] [address] (BEAKER) (test code [facility] = 1538) [place] [address] BASIC METABOLIC [id number] 09:23:00 Test Item Value Reference Range Interpretation [...] NOT APPLICABLE FOR DIALYSIS PATIEN TS. POCT-GLUCOSE [id number] 08:02:00 Test Item Value Reference Range Interpretation Comments POC-GLUCOSE METER 161 mg/dL 70-110 H TESTED AT [facility] [address] (BEAKER) (test code [facility] = 1538) [place] [address] POCT-GLUCOSE [id number] 07:03:00 Test Item Value Reference Range Interpretation Comments POC-GLUCOSE METER 151 mg/dL 70-[address] [place] [address] [address] (BEAKER) (test code [facility] = 1538) [place] [address] POCT-GLUCOSE [id number] 05:08:00 Test Item Value Reference Range Interpretation Comments POC-GLUCOSE METER 158 mg/dL 70-[address] [place] [address] [address] (BEAKER) (test code [facility] = 1538) [place] [address] BASIC METABOLIC [id number] 04:51:00 Test Item Value Reference Range Interpretation [...] NOT APPLICABLE FOR DIALYSIS PATIEN TS. POCT-GLUCOSE [id number] 03:03:00 Test Item Value Reference Range Interpretation Comments POC-GLUCOSE METER 153 mg/dL 70-110 H TESTED AT [facility] [address] (BEAKER) (test code [facility] = 1538) [place] [address] POCT-GLUCOSE [id number] 02:09:00 Test Item Value Reference Range Interpretation Comments POC-GLUCOSE METER 159 mg/dL 70-110 H TESTED AT [facility] [address] (BEAKER) (test code [facility] = 1538) [place] [address] POCT-GLUCOSE [id number] 01:08:00 Test Item Value Reference Range Interpretation Comments POC-GLUCOSE METER 174 mg/dL 70-110 H TESTED AT [facility] [address] (BEAKER) (test code [facility] = 1538) [place] [address] BASIC METABOLIC [id number] 00:38:00 Test Item Value Reference Range Interpretation [...] NOT APPLICABLE FOR DIALYSIS PATIEN TS. POCT-GLUCOSE [id number] 00:37:00 Test Item Value Reference Range Interpretation Comments POC-GLUCOSE METER 198 mg/dL 70-110 H TESTED AT [facility] [address] (BEAKER) (test code [facility] = 1538) [place] [address] POCT-GLUCOSE [id number] 00:14:00 Test Item Value Reference Range Interpretation Comments POC-GLUCOSE METER 162 mg/dL 70-110 H TESTED AT [facility] [address] (BEAKER) (test code [facility] = 1538) [place] [address] POCT-GLUCOSE [id number] 23:39:00 Test Item Value Reference Range Interpretation Comments POC-GLUCOSE METER 149 mg/dL 70-110 H TESTED AT [facility] [address] (BEAKER) (test code [facility] = 1538) [place] [address] POCT-GLUCOSE [id number] 23:10:00 Test Item Value Reference Range Interpretation Comments POC-GLUCOSE METER 134 mg/dL 70-110 H TESTED AT [facility] [address] (BEAKER) (test code [facility] = 1538) [place] [address] POCT-GLUCOSE [id number] 22:41:00 Test Item Value Reference Range Interpretation Comments POC-GLUCOSE METER 112 mg/dL 70-110 H TESTED AT [facility] [address] (BEAKER) (test code [facility] = 1538) [place] [address] POCT-GLUCOSE [id number] 21:59:00 Test Item Value Reference Range Interpretation Comments POC-GLUCOSE METER 95 mg/dL 70-110 TESTED AT [facility] [address] ([place]) (test code = [facility] 1538) [place] [address] POCT-GLUCOSE [id number] 21:39:00 Test Item Value Reference Range Interpretation Comments POC-GLUCOSE METER 110 mg/dL 70-110 TESTED AT [facility] [address] [facility] (test code [facility] = 1538) [place] [address] POCT-GLUCOSE [id number] 21:07:00 Test Item Value Reference Range Interpretation Comments POC-GLUCOSE METER 114 mg/dL 70-110 H TESTED AT [facility] [address] [facility] (test code [facility] = 1538) [place] [address] BASIC METABOLIC [id number] 20:47:00 Test Item Value Reference Range Interpretation [...] NOT APPLICABLE FOR DIALYSIS PATIEN TS. POCT-GLUCOSE [id number] 20:17:00 Test Item Value Reference Range Interpretation Comments POC-GLUCOSE METER 176 mg/dL 70-110 H TESTED AT [facility] [address] (BEAKER) (test code [facility] = 1538) [place] [address] [id number] 19:09:00 Test Item Value Reference Range Interpretation Comments GLUCOSE RANDOM (BEAKER) (test code 230 mg/dL 70-110 H = 652) If last glucose was less than 500, may do bedside glucose instead of serum glucose.POCT-GLUCOSE [id number] 18:53:00 Test Item Value Reference Range Interpretation Comments POC-GLUCOSE METER 212 mg/dL 70-110 H TESTED AT [facility] [address] [facility] (test code [facility] = 1538) [place] [address] POCT-GLUCOSE [id number] 17:14:00 Test Item Value Reference Range Interpretation Comments POC-GLUCOSE METER 145 mg/dL 70-110 H TESTED AT [facility] [address] ([place]) (test code [facility] = 1538) [place] [address] BASIC METABOLIC [id number] 16:51:00 Test Item Value Reference Range Interpretation [...] may do bedside glucose instead of serum glucose.[id number] 16:47:00 Test Item Value Reference Range Interpretation Comments GLUCOSE RANDOM (BEAKER) (test code 126 mg/dL 70-110 H = 652) If last glucose was less than 500, may do bedside glucose instead of serum glucose.POCT-GLUCOSE [id number] 16:04:00 Test Item Value Reference Range Interpretation Comments POC-GLUCOSE METER 119 mg/dL 70-110 H TESTED AT [facility] [address] ([place]) (test code [facility] = 1538) [place] [address] [id number] 14:30:00 Test Item Value Reference Range Interpretation Comments POTASSIUM (BEAKER) (test code = 3.9 meq/L 3.5-5.5 379) If last glucose was less than 500, may do bedside glucose instead of serum glucose.[id number] 14:30:00 Test Item Value Reference Range Interpretation Comments GLUCOSE RANDOM (BEAKER) (test code 190 mg/dL 70-110 H = 652) If last glucose was less than 500, may do bedside glucose instead of serum glucose.POCT-GLUCOSE [id number] 14:05:00 Test Item Value Reference Range Interpretation Comments POC-GLUCOSE METER 194 mg/dL 70-110 H TESTED AT [facility] [address] [facility] (test code [facility] = 1538) [place] [address] POCT-GLUCOSE [id number] 13:15:00 Test Item Value Reference Range Interpretation Comments POC-GLUCOSE METER 229 mg/dL 70-110 H TESTED AT [facility] [address] ([place]) (test code [facility] = 1538) [place] [address] BASIC METABOLIC [id number] 12:44:00 Test Item Value Reference Range Interpretation [...] may do bedside glucose instead of serum glucose.[id number] 12:43:00 Test Item Value Reference Range Interpretation Comments GLUCOSE RANDOM (BEAKER) (test code 258 mg/dL 70-110 H = 652) If last glucose was less than 500, may do bedside glucose instead of serum glucose.POCT-GLUCOSE [id number] 12:03:00 Test Item Value Reference Range Interpretation Comments POC-GLUCOSE METER 238 mg/dL 70-110 H TESTED AT [facility] [address] ([facility] (test code [facility] = 1538) [place] [address] POCT-GLUCOSE [id number] 11:05:00 Test Item Value Reference Range Interpretation Comments POC-GLUCOSE METER 261 mg/dL 70-110 H TESTED AT [facility] [address] ([place]) (test code [facility] = 1538) [place] [address] HEMOGLOBIN [id number] 10:07:00 Test Item Value Reference Range Interpretation Comments HEMOGLOBIN A1C (BEAKER) (test code = > % 4.3-6.1 H 368) [id number] 10:00:00 Test Item Value Reference Range Interpretation Comments GLUCOSE RANDOM (BEAKER) (test code 441 mg/dL 70-110 HH = 652) If last glucose was less than 500, may do bedside glucose instead of serum glucose.[id number] 09:55:00 Test Item Value Reference Range Interpretation Comments POTASSIUM (BEAKER) (test code = 4.1 meq/L 3.5-5.5 379) If last glucose was less than 500, may do bedside glucose instead of serum glucose.POCT-GLUCOSE [id number] 09:18:00 Test Item Value Reference Range Interpretation Comments POC-GLUCOSE METER > mg/dL 70-110 HH OUTSIDE ME ASURING (BEAKER) (test code [facility] [address] = 1538) [facility] [address] [id number] 09:15:00 Test Item Value Reference Range Interpretation Comments GLUCOSE RANDOM (BEAKER) (test code 585 mg/dL 70-110 HH = 652) If last glucose was less than 500, may do bedside glucose instead of serum glucose.COMPREHENSIVE METABOLIC [id number] 08:30:00 Test Item Value Reference Range Interpretation [...] PATIEN TS. CBC W/PLT COUNT & AUTO [id number] 08:29:00 Test Item Value Reference Range Interpretation [...] K/ L 0.00-0.20 (test code = 417) [id number] 08:25:00 Test Item Value Reference Range Interpretation Comments PHOSPHORUS (BEAKER) (test code = 4.0 mg/dL 2.5-4.5 604) [id number] 08:25:00 Test Item Value Reference Range Interpretation Comments MAGNESIUM (BEAKER) (test code = 2.0 mg/dL 1.5-3.0 627) SCREEN, [id number] 08:16:00 Test Item Value Reference Range Interpretation Comments TEST URINE (BEAKER) (test Negative code = 583) URINALYSIS W/ [id number] 08:16:00 Test Item Value Reference Range Interpretation [...] Rare SOURCE(BEAKER) (test code = 2795) KETONE, [id number] 08:09:00 Test Item Value Reference Range Interpretation Comments KETONES, BLOOD (BEAKER) (test code 6.1 mmol/L <0.4 H = 1103) PH, [id number] 08:08:00 Test Item Value Reference Range Interpretation Comments PH VENOUS (BEAKER) (test code = 701) 7.18 7.32-7.42 LL BLOOD [id number] 13:00:00 Test Item Value Reference Range Interpretation Comments CULTURE (BEAKER) (test No growth in 5 days code = 1095) BLOOD [id number] 13:00:00 Test Item Value Reference Range Interpretation Comments CULTURE (BEAKER) (test No growth in 5 days code = 1095) POCT-GLUCOSE [id number] 17:12:00 Test Item Value Reference Range Interpretation Comments POC-GLUCOSE METER 136 mg/dL 70-110 H TESTED AT [facility] [address] (BEAKER) (test code [facility] = 1538) [place] [address] POCT-GLUCOSE [id number] 16:37:00 Test Item Value Reference Range Interpretation Comments POC-GLUCOSE METER 45 mg/dL 70-110 L TESTED AT [facility] [address] (BEAKER) (test code = [facility] 1538) [place] [address] POCT-GLUCOSE [id number] 11:32:00 Test Item Value Reference Range Interpretation Comments POC-GLUCOSE METER 98 mg/dL 70-110 TESTED AT [facility] [address] (BEAKER) (test code = [facility] 1538) [place] [address] POCT-GLUCOSE [id number] 06:45:00 Test Item Value Reference Range Interpretation Comments POC-GLUCOSE METER 85 mg/dL 70-110 TESTED AT [address] (BEAKER) (test code = [facility] 1538) [place] [address] [id number] 06:25:00 Test Item Value Reference Range Interpretation Comments PHOSPHORUS (BEAKER) (test code = 2.4 mg/dL 2.5-4.5 L 604) [id number] 06:25:00 Test Item Value Reference Range Interpretation Comments MAGNESIUM (BEAKER) (test code = 2.4 mg/dL 1.5-3.0 627) BASIC METABOLIC [id number] 06:25:00 Test Item Value Reference Range Interpretation [...] PATIEN TS. CBC W/PLT COUNT & AUTO [id number] 05:58:00 Test Item Value Reference Range Interpretation [...] L 0.00-0.20 (test code = 417) POCT-GLUCOSE [id number] 05:38:00 Test Item Value Reference Range Interpretation Comments POC-GLUCOSE METER 102 mg/dL 70-110 TESTED AT [facility] [address] (BEAKER) (test code [facility] = 1538) [place] [address] POCT-GLUCOSE [id number] 03:29:00 Test Item Value Reference Range Interpretation Comments POC-GLUCOSE METER 163 mg/dL 70-110 H TESTED AT [facility] [address] (BEAKER) (test code [facility] = 1538) [place] [address] POCT-GLUCOSE [id number] 03:29:00 Test Item Value Reference Range Interpretation Comments POC-GLUCOSE METER 155 mg/dL 70-110 H TESTED AT [facility] [address] (BEAKER) (test code [facility] = 1538) [place] [address] BASIC METABOLIC [id number] 01:42:00 Test Item Value Reference Range Interpretation [...] S NOT APPLICABLE FOR DIALYSIS PATIEN TS. [id number] 01:39:00 Test Item Value Reference Range Interpretation Comments PHOSPHORUS (BEAKER) (test code = 2.1 mg/dL 2.5-4.5 L 604) [id number] 01:39:00 Test Item Value Reference Range Interpretation Comments MAGNESIUM (BEAKER) (test code = 2.0 mg/dL 1.5-3.0 627) POCT-GLUCOSE [id number] 01:19:00 Test Item Value Reference Range Interpretation Comments POC-GLUCOSE METER 152 mg/dL 70-110 H TESTED AT [facility] [address] (BEAKER) (test code [facility] = 1538) [place] [address] POCT-GLUCOSE [id number] 01:07:00 Test Item Value Reference Range Interpretation Comments POC-GLUCOSE METER 145 mg/dL 70-110 H TESTED AT [facility] [address] (BEAKER) (test code [facility] = 1538) [place] [address] POCT-GLUCOSE [id number] 01:07:00 Test Item Value Reference Range Interpretation Comments POC-GLUCOSE METER 165 mg/dL 70-110 H TESTED AT [facility] [address] (BEAKER) (test code SOLO [facility] = 1538) [place] [address] POCT-GLUCOSE [id number] 01:07:00 Test Item Value Reference Range Interpretation Comments POC-GLUCOSE METER 163 mg/dL 70-110 H TESTED AT [facility] [address] (BEAKER) (test code [facility] = 1538) [place] [address] BASIC METABOLIC [id number] 20:59:00 Test Item Value Reference Range Interpretation [...] S NOT APPLICABLE FOR DIALYSIS PATIEN TS. [id number] 20:58:00 Test Item Value Reference Range Interpretation Comments MAGNESIUM (BEAKER) 1.8 mg/dL 1.5-3.0 Specimen slightly (test code = 627) hemolyzed [id number] 20:58:00 Test Item Value Reference Range Interpretation Comments PHOSPHORUS (BEAKER) 2.2 mg/dL 2.5-4.5 L Specimen slightly (test code = 604) hemolyzed POCT-GLUCOSE [id number] 18:02:00 Test Item Value Reference Range Interpretation Comments POC-GLUCOSE METER 176 mg/dL 70-110 H TESTED AT [facility] [address] (BEAKER) (test code [facility] = 1538) [place] [address] [id number] 16:46:00 Test Item Value Reference Range Interpretation Comments MAGNESIUM (BEAKER) 2.1 mg/dL 1.5-3.0 Specimen slightly (test code = 627) hemolyzed [id number] 16:46:00 Test Item Value Reference Range Interpretation Comments PHOSPHORUS (BEAKER) 2.1 mg/dL 2.5-4.5 L Specimen slightly (test code = 604) hemolyzed BASIC METABOLIC [id number] 16:46:00 Test Item Value Reference Range Interpretation [...] NOT APPLICABLE FOR DIALYSIS PATIEN TS. CALCIUM, [id number] 16:21:00 Test Item Value Reference Range Interpretation Comments CALCIUM IONIZED (BEAKER) (test 1.13 mmol/L 1.12-1.27 code = 698) PH, BLOOD (BEAKER) (test code = 7.30 1810) Check serum Ionized Calcium level after 4 hours after IV Calcium replacement. POCT-GLUCOSE [id number] 16:12:00 Test Item Value Reference Range Interpretation Comments POC-GLUCOSE METER 191 mg/dL 70-110 H TESTED AT [facility] [address] (BEAKER) (test code [facility] = 1538) [place] [address] POCT-GLUCOSE [id number] 15:20:00 Test Item Value Reference Range Interpretation Comments POC-GLUCOSE METER 181 mg/dL 70-110 H TESTED AT [facility] [address] (BEAKER) (test code [facility] = 1538) [place] [address] POCT-GLUCOSE [id number] 14:15:00 Test Item Value Reference Range Interpretation Comments POC-GLUCOSE METER 169 mg/dL 70-[address] [place] [address] [address] (BEAKER) (test code [facility] = 1538) [place] [address] BASIC METABOLIC [id number] 13:44:00 Test Item Value Reference Range Interpretation [...] NOT APPLICABLE FOR DIALYSIS PATIEN TS. POCT-GLUCOSE [id number] 13:24:00 Test Item Value Reference Range Interpretation Comments POC-GLUCOSE METER 157 mg/dL 70-110 H TESTED AT [facility] [address] (BEAKER) (test code [facility] = 1538) [place] [address] POCT-GLUCOSE [id number] 12:34:00 Test Item Value Reference Range Interpretation Comments POC-GLUCOSE METER 131 mg/dL 70-110 H TESTED AT [facility] [address] (BEAKER) (test code [facility] = 1538) [place] [address] POCT-GLUCOSE [id number] 11:39:00 Test Item Value Reference Range Interpretation Comments POC-GLUCOSE METER 160 mg/dL 70-110 H TESTED AT [facility] [address] (BEAKER) (test code [facility] = 1538) [place] [address] [id number] 11:13:00 Test Item Value Reference Range Interpretation Comments PROCALCITONIN (BEAKER) (test code = < ng/mL <0.05 3036) SEPSIS RISK (ng/mL)Low: 0.05-0.50Intermediate: 0.51-2.00High: >=2.01POCT-GLUCOSE [id number] 10:40:00 Test Item Value Reference Range Interpretation Comments POC-GLUCOSE METER 202 mg/dL 70-110 H TESTED AT [facility] [address] (BEAKER) (test code [facility] = 1538) [place] [address] [id number] 10:04:00 Test Item Value Reference Range Interpretation Comments PHOSPHORUS (BEAKER) 1.4 mg/dL 2.5-4.5 LL Specimen slightly (test code = 604) hemolyzed BASIC METABOLIC [id number] 10:04:00 Test Item Value Reference Range Interpretation [...] S NOT APPLICABLE FOR DIALYSIS PATIEN TS. [id number] 10:02:00 Test Item Value Reference Range Interpretation Comments MAGNESIUM (BEAKER) 1.8 mg/dL 1.5-3.0 Specimen slightly (test code = 627) hemolyzed POCT-GLUCOSE [id number] 09:36:00 Test Item Value Reference Range Interpretation Comments POC-GLUCOSE METER 212 mg/dL 70-110 H TESTED AT [facility] [address] (BANNER) (test code [facility] = 1538) [place] [address] POCT-GLUCOSE [id number] 08:43:00 Test Item Value Reference Range Interpretation Comments POC-GLUCOSE METER 268 mg/dL 70-110 H TESTED AT [facility] [address] ([place]ANNER) (test code [facility] = 1538) [place] [address] [id number] 07:47:00 Test Item Value Reference Range Interpretation Comments POTASSIUM (BANNER) (test code = 4.0 meq/L 3.5-5.5 379) If last glucose was less than 500, may do bedside glucose instead of serum glucose.[id number] 07:47:00 Test Item Value Reference Range Interpretation Comments GLUCOSE RANDOM ([place]) (test code 370 mg/dL 70-110 H = 652) If last glucose was less than 500, may do bedside glucose instead of serum glucose.POCT-GLUCOSE [id number] 07:31:00 Test Item Value Reference Range Interpretation Comments POC-GLUCOSE METER 328 mg/dL 70-110 H Notified R Evita DAVIS/TESTED AT ([place]) (test code [facility] [address] [facility] = 1538) [facility] [place] [address] POCT-GLUCOSE [id number] 07:31:00 Test Item Value Reference Range Interpretation Comments POC-GLUCOSE METER 414 mg/dL 70-110 HH TESTED AT [facility] [id number] ([place]) (test code [facility] = 1538) [place] [address] [id number] 06:57:00 Test Item Value Reference Range Interpretation Comments POTASSIUM ([place]) (test code = 4.5 meq/L 3.5-5.5 379) [id number] 06:51:00 Test Item Value Reference Range Interpretation Comments GLUCOSE RANDOM ([place]) (test code 523 mg/dL 70-110 HH = 652) If last glucose was less than 500, may do bedside glucose instead of serum glucose.URINALYSIS W/ REFLEX URINE [id number] 06:29:00 Test Item Value Reference Range Interpretation [...] (test code = 2795) RAPID INFLUENZA A&B [id number] 06:13:00 Test Item Value Reference Range Interpretation Comments RAPID INFLUENZA A AG ([facility]) (test Negative Negative code = 1622) RAPID INFLUENZA B AG ([place]) (test Negative Negative code = 1623) SCREEN, [id number] 05:58:00 Test Item Value Reference Range Interpretation Comments TEST URINE (BEAKER) (test Negative code = 583) RAD, CHEST, 1 VIEW, NON [id number] 05:52:00Reason for exam:->EMESISReason for exam:->BLOOD SUGAR PROBLEMShould this be performed at the bedside?- >YesIs the patient ?->NoFINAL REPORT Comparison examination: 04/07/2017 No pneumothorax, focal pulmonary consolidation, or significant pleural effusion. Normal cardiomediastinal contours. Normal skeleton and soft tissues. Impression: No acute abnormality. Signed: Joesph Foy Verified Date/Time: 05/18/2017 05:52:18 Reading Location: [facility] B1 C013T Transitional Reading Room HEMOGLOBIN [id number] 05:49:00 Test Item Value Reference Range Interpretation Comments HEMOGLOBIN A1C (BEAKER) (test code = 13.2 % 4.3-6.1 H 368) BASIC METABOLIC [id number] 05:28:00 Test Item Value Reference Range Interpretation [...] bedside glucose instead of serum glucose.HEPATIC FUNCTION [id number] 05:27:00 Test Item Value Reference Range Interpretation [...] glucose instead of serum glucose.Specimen slightlylipemicBLOOD GAS, [id number] 05:04:00 Test Item Value Reference Range Interpretation [...] (test code = 1819) 21.0 % KETONE, [id number] 05:03:00 Test Item Value Reference Range Interpretation Comments KETONES, BLOOD (BEAKER) (test code 5.8 mmol/L <0.4 H = 1103) CBC W/PLT COUNT & AUTO [id number] 05:02:00 Test Item Value Reference Range Interpretation [...] L 0.00-0.20 (test code = 417) POCT-GLUCOSE [id number] 04:49:00 Test Item Value Reference Range Interpretation Comments POC-GLUCOSE METER > mg/dL 70-110 HH OUTSIDE ME ASURING (BEAKER) (test code RANGETES PRACHI [facility] [address] = 1538) [facility] [address] BLOOD [id number] 00:00:00 Test Item Value Reference Range Interpretation Comments CULTURE (BEAKER) (test No growth in 5 days code = 1095) BLOOD [id number] 00:00:00 Test Item Value Reference Range Interpretation Comments CULTURE (BEAKER) (test No growth in 5 days code = 1095) URINE [id number] 15:21:00 Test Item Value Reference Range Interpretation Comments CULTURE (BEAKER) (test >100,000 col/mL skin code = 1095) christophe POCT-GLUCOSE [id number] 14:37:00 Test Item Value Reference Range Interpretation Comments POC-GLUCOSE METER 326 mg/dL 70-[address] [facility] 6720 (BEAKER) (test code = SHARATH Black[place] 1538) [address] POCT-GLUCOSE [id number] 13:26:00 Test Item Value Reference Range Interpretation Comments POC-GLUCOSE METER 331 mg/dL 70-[address] [facility] 6720 (BEAKER) (test code = SHARATH Blackwell [facility] 1538) [address] CBC W/PLT COUNT & AUTO [id number] 11:34:00 Test Item Value Reference Range Interpretation [...] COUNTED (BEAKER) (test code = 1351) POCT-GLUCOSE [id number] 11:18:00 Test Item Value Reference Range Interpretation Comments POC-GLUCOSE METER 349 mg/dL 70-110 H TESTED AT [place] [address] ([facility]) (test code = [facility] 1538) [address] POCT-GLUCOSE [id number] 09:34:00 Test Item Value Reference Range Interpretation Comments POC-GLUCOSE METER 61 mg/dL 70-110 L TESTED AT [place] [address] ([place]) (test code = [facility] [address] 1538) POCT-GLUCOSE [id number] 08:48:00 Test Item Value Reference Range Interpretation Comments POC-GLUCOSE METER 79 mg/dL 70-110 TESTED AT [place] [address] ([place]) (test code = [facility] [address] 1538) BASIC METABOLIC [id number] 06:12:00 Test Item Value Reference Range Interpretation [...] 358) GLUCOSE RANDOM 387 mg/dL 70-105 H (BANNER) (test code = 652) CALCIUM ([place]NER) 8.7 mg/dL 8.4-10.2 (test code = 697) EGFR ([place]) (test 89 mL/min/1.73 ESTIMA PRACHI GFR IS code = 1092) sq m NOT ACCURATE CREATININE CLEARANCE IN PREDICTING GLOMERULAR FILTRATION RATE . ESTIMATED GFR I S NOT APPLICABLE FOR DIALYSIS PATIEN TS. KETONE, [id number] 05:43:00 Test Item Value Reference Range Interpretation Comments KETONES, BLOOD ([facility]NER) (test code 0.1 mmol/L <0.4 = 1103) POCT-GLUCOSE [id number] 05:39:00 Test Item Value Reference Range Interpretation Comments POC-GLUCOSE METER 366 mg/dL 70-110 H TESTED AT [place] [address] ([place]) (test code = CIARANAE Blackwell [place] 1538) [address] POCT-GLUCOSE [id number] 22:32:00 Test Item Value Reference Range Interpretation Comments POC-GLUCOSE METER 302 mg/dL 70-110 H TESTED AT [place] [address] ([place]) (test code = [employer] [place] 1538) [address] POCT-GLUCOSE [id number] 19:15:00 Test Item Value Reference Range Interpretation Comments POC-GLUCOSE METER 273 mg/dL 70-110 H TESTED AT [place] [address] ([place]) (test code = [employer] [place] 1538) [address] POCT-GLUCOSE [id number] 17:49:00 Test Item Value Reference Range Interpretation Comments POC-GLUCOSE METER 174 mg/dL 70-110 H TESTED AT [place] [address] ([place]) (test code = [employer] [place] 1538) [address] POCT-GLUCOSE [id number] 17:02:00 Test Item Value Reference Range Interpretation Comments POC-GLUCOSE METER 171 mg/dL 70-110 H TESTED AT [place] [address] ([place]) (test code = [employer] [place] 1538) [address] POCT-GLUCOSE [id number] 15:17:00 Test Item Value Reference Range Interpretation Comments POC-GLUCOSE METER 135 mg/dL 70-110 H TESTED AT [place] [address] ([place]) (test code = [employer] [place] 1538) [address] POCT-GLUCOSE [id number] 13:10:00 Test Item Value Reference Range Interpretation Comments POC-GLUCOSE METER 61 mg/dL 70-110 L TESTED AT [place] [address] ([place]) (test code = SHARATH Blackwell [facility] [address] 1538) POCT-GLUCOSE [id number] 11:21:00 Test Item Value Reference Range Interpretation Comments POC-GLUCOSE METER 57 mg/dL 70-110 L Notified R Evita DAVIS/TESTED AT ([place]) (test code = [place] [address]) [facility] 7703 0 POCT-GLUCOSE [id number] 08:02:00 Test Item Value Reference Range Interpretation Comments POC-GLUCOSE METER 68 mg/dL 70-110 L Notified R Evita DAVIS/TESTED AT ([facility]) (test code = [place] [address]) [facility] 7703 0 CBC W/PLT COUNT & AUTO [id number] 08:02:00 Test Item Value Reference Range Interpretation [...] PERCENT (BEAKER) (test code = 2801) POCT-GLUCOSE [id number] 06:58:00 Test Item Value Reference Range Interpretation Comments POC-GLUCOSE METER 95 mg/dL 70-110 [facility]ED AT [place] [address] [facility] (test code = [facility] [address] 1538) POCT-GLUCOSE [id number] 06:17:00 Test Item Value Reference Range Interpretation Comments POC-GLUCOSE METER 150 mg/dL 70-110 H TESTED AT [place] [address] [facility] (test code = [facility] 1538) [address] POCT-GLUCOSE [id number] 05:18:00 Test Item Value Reference Range Interpretation Comments POC-GLUCOSE METER 101 mg/dL 70-110 TESTED AT [place] [address] ([facility] (test code = [facility] 1538) [address] POCT-GLUCOSE [id number] 05:07:00 Test Item Value Reference Range Interpretation Comments POC-GLUCOSE METER 119 mg/dL 70-110 H TESTED AT [place] [address] ([facility] (test code = [facility] 1538) [address] BASIC METABOLIC [id number] 04:52:00 Test Item Value Reference Range Interpretation [...] NOT APPLICABLE FOR DIALYSIS PATIEN TS. POCT-GLUCOSE [id number] 04:05:00 Test Item Value Reference Range Interpretation Comments POC-GLUCOSE METER 48 mg/dL 70-110 L TESTED AT [place] [address] ([facility] (test code = [facility] Rosalva [facility] [address] 1538) POCT-GLUCOSE [id number] 02:30:00 Test Item Value Reference Range Interpretation Comments POC-GLUCOSE METER 181 mg/dL 70-110 H TESTED AT [place] [address] ([facility] (test code = [facility] 1538) [address] POCT-GLUCOSE [id number] 02:10:00 Test Item Value Reference Range Interpretation Comments POC-GLUCOSE METER 37 mg/dL 70-110 LL Will Repea t Test/TESTED (BEAKER) (test code = AT [facility] 6720 [facility] 1538) [facility] 7703 0 POCT-GLUCOSE [id number] 01:07:00 Test Item Value Reference Range Interpretation Comments POC-GLUCOSE METER 87 mg/dL 70-110 TESTED AT [place] [id number] ([facility] (test code = [facility] Rosalva [facility] [address] 1538) BASIC METABOLIC [id number] 00:44:00 Test Item Value Reference Range Interpretation [...] NOT APPLICABLE FOR DIALYSIS PATIEN TS. POCT-GLUCOSE [id number] 00:30:00 Test Item Value Reference Range Interpretation Comments POC-GLUCOSE METER 96 mg/dL 70-110 TESTED AT [place] [address] ([facility]) (test code = [facility] [address] 1538) POCT-GLUCOSE [id number] 23:54:00 Test Item Value Reference Range Interpretation Comments POC-GLUCOSE METER 91 mg/dL 70-110 TESTED AT [place] [address] ([place]) (test code = [facility] [address] 1538) POCT-GLUCOSE [id number] 23:12:00 Test Item Value Reference Range Interpretation Comments POC-GLUCOSE METER 48 mg/dL 70-110 L TESTED AT [place] [address] ([place]) (test code = [facility] [address] 1538) POCT-GLUCOSE [id number] 21:58:00 Test Item Value Reference Range Interpretation Comments POC-GLUCOSE METER 94 mg/dL 70-110 TESTED AT [place] [address] ([place]) (test code = [facility] [address] 1538) BASIC METABOLIC [id number] 21:08:00 Test Item Value Reference Range Interpretation [...] NOT APPLICABLE FOR DIALYSIS PATIEN TS. POCT-GLUCOSE [id number] 20:57:00 Test Item Value Reference Range Interpretation Comments POC-GLUCOSE METER 165 mg/dL 70-[address] [facility] 6720 (BEAKER) (test code = CIARA[place] 1538) [address] [id number] 20:55:00 Test Item Value Reference Range Interpretation Comments POTASSIUM (BEAKER) (test code = 3.6 meq/L 3.5-5.1 379) URINALYSIS W/ [id number] 20:40:00 Test Item Value Reference Range Interpretation [...] 516) SOURCE(BEAKER) (test code = 2795) POCT-GLUCOSE [id number] 19:59:00 Test Item Value Reference Range Interpretation Comments POC-GLUCOSE METER 282 mg/dL 70-[address] [facility] 6720 (BEAKER) (test code = SHARATH Blackwell [facility] 1538) [address] POCT-GLUCOSE [id number] 19:02:00 Test Item Value Reference Range Interpretation Comments POC-GLUCOSE METER 374 mg/dL 70-110 H Notified Rosalva Jama MD/TESTED (BEAKER) (test code = AT [facility] 6720 [place] 1538) [facility] 7703 0 CBC W/PLT COUNT & AUTO [id number] 18:56:00 Test Item Value Reference Range Interpretation [...] PERCENT (BEAKER) (test code = 2801) POCT-GLUCOSE [id number] 18:03:00 Test Item Value Reference Range Interpretation Comments POC-GLUCOSE METER 294 mg/dL 70-[address] [facility] 6720 (BEAKER) (test code = SHARATH Blackwell [facility] 1538) [address] HEMOGLOBIN [id number] 17:45:00 Test Item Value Reference Range Interpretation Comments HEMOGLOBIN A1C (BEAKER) (test code = 12.6 % 4.3-6.1 H 368) RAD, CHEST, 1 VIEW, NON [id number] 17:20:00Reason for exam:->sobShould this be performed at [...] IMPRESSION: No acute cardiopulmonary abnormality. Signed: Salomon [place] Verified Date/Time: 04/07/2017 17:20:50 Reading Location: [address] Radiology Reading Room TSH/FREE T4 IF [id number] 17:04:00 Test Item Value Reference Range Interpretation Comments THYROID STIMULATING HORMONE 0.95 uIU/mL 0.35-4.94 (BEAKER) (test code = 772) TROPONIN [id number] 16:51:00 Test Item Value Reference Range Interpretation [...] renalfailure, acidosis, acute neurological disease, and persistent tachyarrhythmia.[id number] 16:45:00 Test Item Value Reference Range Interpretation Comments LIPASE (BEAKER) (test code = 749) 33 U/L 8-78 [id number] 16:45:00 Test Item Value Reference Range Interpretation Comments AMYLASE (BEAKER) (test code = 349) 66 U/L 25-125 BASIC METABOLIC [id number] 16:45:00 Test Item Value Reference Range Interpretation [...] DIALYSIS PATIEN TS. LACTIC ACID, VENOUS, WHOLE [id number] 16:45:00 Test Item Value Reference Range Interpretation Comments LACTATE BLOOD VENOUS (2) (BEAKER) 1.1 mmol/L 0.5-2.2 (test code = 2872) Effective 12/05/2015: Units/Reference Range ChangeNew: 0.5-2.2 mmol/L Previous: 5-20 mg/dLKETONE, [id number] 16:41:00 Test Item Value Reference Range Interpretation Comments KETONES, BLOOD (BEAKER) (test code 2.1 mmol/L <0.4 H = 1103) BLOOD GAS, [id number] 16:27:00 Test Item Value Reference Range Interpretation [...] 37.0 C (test code = 1818) POCT-GLUCOSE [id number] 16:20:00 Test Item Value Reference Range Interpretation Comments POC-GLUCOSE METER 156 mg/dL 70-[address] [facility] 6720 (BEAKER) (test code = SHARATH [place] 1538) [address] POCT-GLUCOSE [id number] 15:28:00 Test Item Value Reference Range Interpretation Comments POC-GLUCOSE METER 101 mg/dL 70-[address] [facility] 6720 (BEAKER) (test code = SHARATH Blackwell [facility] 1530) [address]
[2021-09-15] MEDS ORDERED: KETOROLAC 30 MG/ML INJ ONE (13:14)
--- NOTE | 2021-09-15 14:35 | RAD REPORT ---
EXAM DESCRIPTION: RAD - Knee Right 3 View - 09/15/2021 1:49 pm CLINICAL HISTORY: knee pain COMPARISON: No comparisons FINDINGS: No fracture, dislocation or periosteal reaction.No joint effusion seen. No joint space maisha rowing. No foreign body or other soft tissue abnormality. IMPRESSION: Negative right knee. Clinical concerns for internal derangement or occult bony injury could be further assessed with MR im aging.
--- NOTE | 2021-09-15 15:53 | EDPHYS ---
Physician Documentation [facility] Name: Salome Santacruz Age: 21 yrs Sex: Female : 2000 Arrival Date: 09/15/2021 Time: 12:30 Bed 10 Private MD: ED Physician Francisco Charles HPI: 09/15 12:57 This 21 yrs old Female presents to ER via Wheelchair with complaints of Fall Injury, jmm Leg Pain. 12:57 Details of fall: The patient fell from an upright position, while walking. Onset: The jmm symptoms/episode began/occurred acutely. This is a 21-year-old female with history of anxiety, depression, diabetes mellitus, bipolar the presents emerged department with complaints of right knee pain which radiates down to the mid calf. Patient states that she tripped over her pants. Denies head injury. Pain is mainly posterior from the knee to the calf.. MAGNETIZER: 12:50 LMP 08/31/2021 jl7 Historical: - Allergies: 12:50 Demerol; jl7 12:50 Keflex; jl7 12:50 Latex, Natural Rubber; jl7 12:50 Midol; jl7 12:50 Phenergan; jl7 12:50 raw onions; jl7 - Home Meds: 12:50 Levemir 100 unit/mL subcutaneous soln daily [Active]; Novolog U-100 Insulin aspart 100 jl7 unit/mL Sub-Q soln [Active]; lamotrigine oral [Active]; Trazodone Oral [Active]; - PMHx: 12:50 Anxiety; Depression; Diabetes - IDDM; Bipolar disorder; jl7 - PSHx: 12:50 section; jl7 - Immunization history:: Client reports receiving the 2nd dose of the Covid vaccine. - Social history:: Smoking status: Patient denies any tobacco usage or history of. ROS: 12:57 Constitutional: Negative for fever, chills, and weight loss, Cardiovascular: Negative jmm for chest pain, palpitations, and edema, Respiratory: Negative for shortness of breath, cough, wheezing, and pleuritic chest pain. 12:57 MS/extremity: Positive for pain. 12:57 All other systems are negative. Exam: 12:57 Constitutional: This is a well developed, well nourished patient who is awake, alert, jmm and in no acute distress. Head/Face: atraumatic. Eyes: EOMI, no conjunctival erythema appreciated ENT: Moist Mucus Membranes Neck: Trachea midline, Supple Chest/axilla: Normal chest wall appearance and motion. Cardiovascular: Regular rate and rhythm. No edema appreciated Respiratory: Normal respirations, no respiratory distress appreciated Abdomen/GI: Non distended, soft Back: Normal ROM Skin: General appearance color normal 12:57 Musculoskeletal/extremity: Right popliteal knee tender to palpation, mild right lateral gastrocnemius pain, compartments are soft, neurovascular tact. 12:57 Skin: Appearance: Color: normal in color. 12:57 Neuro: Orientation: is normal, Mentation: is normal, Memory: is normal. 12:57 Psych: Behavior/mood is pleasant, cooperative. Vital Signs: 12:49 BP 117 / 73; Pulse 98; Resp 17; Temp 97.9; Pulse Ox 100% on R/A; Weight 65.77 kg; jl7 Height 5 ft. 4 in. (162.56 cm); Pain 7/10; 12:49 Body Mass Index 24.89 (65.77 kg, 162.56 cm) jl7 Procedures: 12:57 Splinting: Splint applied to right leg using knee immobilizer, applied by nurse. jmm Examined by me, post splint application: neurovascular intact, 2+ distal pulses palpable, brisk capillary refill noted, Patient tolerated. MDM: 12:57 Patient medically screened. [facility] 15:50 Data reviewed: vital signs, nurses notes. [facility] 15:50 Counseling: I had a detailed discussion with the patient and/or guardian regarding: the [facility] historical points, exam findings, and any diagnostic results supporting the discharge/admit diagnosis, radiology results, the need for outpatient follow up, to return to the emergency department if symptoms worsen or persist or if there are any questions or concerns that arise at home. 09/15 13:06 Order name: Knee Right 3 View XRAY; Complete Time: 14:38 [facility] 09/15 14:38 Order name: Knee Immobilizer; Complete Time: 15:12 [facility] Administered Medications: 13:16 Drug: Ketorolac 30 mg Route: IM; Site: right deltoid; ld1 Disposition: 19:29 Co-signature as Attending Physician, Francisco Charles MD I agree with the assessment and kdr plan of care. Disposition Summary: 09/15/21 15:52 Discharge Ordered Location: Home jm Condition: Stable jmm Diagnosis - Strain of other muscle(s) and tendon(s) at lower leg level, right leg jmm - Strain of other muscle(s) and tendon(s) of posterior muscle group at lower leg leveljmm Followup: [facility] - With: Suleiman Mishra MD - When: 2 - 3 days - Reason: Recheck today's complaints, Continuance of care, Re-evaluation by your physician Discharge Instructions: - Discharge Summary Sheet [facility] - Muscle Strain [facility] Forms: - Medication Reconciliation Form [facility] - Thank You Letter [facility] - Antibiotic Education [facility] - Prescription Opioid Use [facility] Prescriptions: - orphenadrine citrate 100 mg Oral Tablet Sustained Release - take 1 tablet by ORAL route 2 times per day As needed; 20 tablet; Refills: 0, jm Product Selection Permitted Signatures: Dispatcher [employer] EDFrancisco Johns MD MD kdr Mickail, Joel, PA PA [facility] Vera Cobian, RN RN jl7 Kendra Cummins RN RN ld1
--- NOTE | 2021-09-15 15:53 | ER ---
Nurse's Notes [facility] Name: Salome Santacruz Age: 21 yrs Sex: Female : 2000 Arrival Date: 09/15/2021 Time: 12:30 Bed 10 Private MD: Diagnosis: Strain of other muscle(s) and tendon(s) at lower leg level, right leg;Strain of other muscle(s) and tendon(s) of posterior muscle group at lower leg level Presentation: 09/15 12:49 Chief complaint: Patient states: Fell yesterday and reports pain to posterior right jl7 knee, radiates to right calf. Coronavirus screen: At this time, the client does not indicate any symptoms associated with coronavirus-19. Ebola Screen: No symptoms or risks identified at this time. Initial Sepsis Screen: Does the patient meet any 2 criteria? No. Patient's initial sepsis screen is negative. Does the patient have a suspected source of infection? No. Patient's initial sepsis screen is negative. Risk Assessment: Do you want to hurt yourself or someone else? Patient reports no desire to harm self or others. Onset of symptoms was September 14, 2021. 12:49 Method Of Arrival: Wheelchair jl7 12:49 Acuity: BRIAN 4 jl7 Triage Assessment: 12:50 General: Appears in no apparent distress. uncomfortable, Behavior is calm, cooperative, jl7 appropriate for age. Pain: Complains of pain in posterior aspect of right knee Pain currently is 7 out of 10 on a pain scale. DIRECTOR VOICE: 12:50 LMP 08/31/2021 jl7 Historical: - Allergies: 12:50 Demerol; jl7 12:50 Keflex; jl7 12:50 Latex, Natural Rubber; jl7 12:50 Midol; jl7 12:50 Phenergan; jl7 12:50 raw onions; jl7 - Home Meds: 12:50 Levemir 100 unit/mL subcutaneous soln daily [Active]; Novolog U-100 Insulin aspart 100 jl7 unit/mL Sub-Q soln [Active]; lamotrigine oral [Active]; Trazodone Oral [Active]; - PMHx: 12:50 Anxiety; Depression; Diabetes - IDDM; Bipolar disorder; jl7 - PSHx: 12:50 section; jl7 - Immunization history:: Client reports receiving the 2nd dose of the Covid vaccine. - Social history:: Smoking status: Patient denies any tobacco usage or history of. Screenin:18 Abuse screen: Denies threats or abuse. Denies injuries from another. Nutritional ld1 screening: No deficits noted. Tuberculosis screening: No symptoms or risk factors identified. Fall Risk None identified. Assessment: 13:18 General: Appears in no apparent distress. comfortable, Behavior is calm, cooperative, ld1 appropriate for age. Pain: Complains of pain in right leg Pain does not radiate. Pain currently is 8 out of 10 on a pain scale. Quality of pain is described as throbbing, Pain began gradually, Is continuous. Neuro: Level of Consciousness is awake, alert, obeys commands, Oriented to person, place, time, situation. Cardiovascular: Capillary refill < 3 seconds Patient's skin is warm and dry. Respiratory: Airway is patent Respiratory effort is even, unlabored, Respiratory pattern is regular, symmetrical. GI: Abdomen is flat, non-distended. : No signs and/or symptoms were reported regarding the genitourinary system. EENT: No signs and/or symptoms were reported regarding the EENT system. Derm: No signs and/or symptoms reported regarding the dermatologic system. Musculoskeletal: No signs and/or symptoms reported regarding the musculoskeletal system. Vital Signs: 12:49 BP 117 / 73; Pulse 98; Resp 17; Temp 97.9; Pulse Ox 100% on R/A; Weight 65.77 kg; jl7 Height 5 ft. 4 in. (162.56 cm); Pain 7/10; 12:49 Body Mass Index 24.89 (65.77 kg, 162.56 cm) jl7 ED Course: 12:30 Patient arrived in ED. jj6 12:31 Migel Ross PA is PHCP. [facility] 12:31 Francisco Charles MD is Attending Physician. [facility] 12:50 Triage completed. jl7 12:50 Arm band placed on right wrist. jl7 12:53 Kendra Cummins, VI is Primary Nurse. ld1 13:18 Patient has correct armband on for positive identification. Bed in low position. Call ld1 light in reach. Side rails up X2. Pulse ox on. NIBP on. Door closed. Noise minimized. 13:18 No provider procedures requiring assistance completed. ld1 13:49 Knee Right 3 View XRAY In Process Unspecified. EDMS 15:52 Suleiman Mishra MD is Referral Physician. [facility] 15:56 Patient did not have IV access during this emergency room visit. ld1 Administered Medications: 13:16 Drug: Ketorolac 30 mg Route: IM; Site: right deltoid; ld1 Outcome: 15:52 Discharge ordered by . [facility] 15:56 Discharged to home ambulatory. ld1 15:56 Condition: stable 15:56 Discharge instructions given to patient, Instructed on discharge instructions, follow up and referral plans. medication usage, Demonstrated understanding of instructions, follow-up care, medications, Prescriptions given X 1. 15:56 Patient left the ED. ld1 Signatures: Dispatcher [employer] EDMS Migel Ross PA PA jmm Leal, Jahala, RN RN jl7 Kendra Cummins RN RN ld1 Ashleigh Craven jj6
[2021-09-15 16:08] VITALS: BP 117/73; TEMP 97.9; O2SAT 100
== END 2021-09-15 15:56 | disposition home or self-care (01) ==
LOC: ER 12:27
DX: S86.811A Strain of other muscle(s) and tendon(s) at lower leg level, right leg, initial encounter (principal); W18.30XA Fall on same level, unspecified, initial encounter; Y93.01 Activity, walking, marching and hiking; E11.9 Type 2 diabetes mellitus without complications; Z79.4 Long term (current) use of insulin; F31.9 Bipolar disorder, unspecified; Z88.1 Allergy status to other antibiotic agents; Z88.5 Allergy status to narcotic agent; Z88.6 Allergy status to analgesic agent; Z88.8 Allergy status to other drugs, medicaments and biological substances; Z91.018 Allergy to other foods; Z91.040 Latex allergy status; Z91.048 Other nonmedicinal substance allergy status
CPT/HCPCS: 96372; 99284

== ENCOUNTER 2022-05-19 18:46 | Emergency (ER) | payer OTHER ==
--- OUTSIDE RECORDS SUMMARY | 2022-05-19 18:57 | XMS REPORT | Continuity of Care Document ---
:2000 Author Organization [facility] t Address [address] [place] [address] Care Team Providers Name Role Phone Inessa DAVIS, Cori A Primary Care Physician Unavailable ELEANOR SEXTON Attending Clinician Unavailable ELEANOR SEXTON Attending Clinician Unavailable RAUL HAMMOND Attending Clinician Unavailable AMALIA FLAHERTY Attending Clinician Unavailable Amalia Flaherty DO Attending Clinician Jacqui Espinal MD Attending Clinician Doctor Unassigned, [place] Attending Clinician Unavailable MARITZA VINES Attending Clinician Unavailable TIEN MANCUSO Attending Clinician Unavailable Green IT ANALYST, Bill Attending Clinician Ebrahicarrillo IT ANALYST, Tien Attending Clinician Anesruthi IT ANALYST, Raul Attending Clinician Lore Mccurdy RN, Arturo Attending Clinician Unavailable Only, Harvey Db Test Attending Clinician Unavailable Davidson DAVIS, Manda Attending Clinician MANDA CEDEÑO Attending Clinician Unavailable Sarai LEBRON, Annette Narayan Attending Clinician Unavailable Simone IT ANALYST, Dustin Attending Clinician DUSTIN NICHOLS Attending Clinician Unavailable Priti COLORADO, Abraham Robles Attending Clinician Unavailable Marcella Casey MD Attending Clinician MARCELLA CASEY Attending Clinician Unavailable KATIE APONTE Attending Clinician Unavailable Katie Aponte MD Attending Clinician Sonal Chao NP Attending Clinician RADHA ABREU Attending Clinician Unavailable Radha Abreu DO Attending Clinician SONAL CHAO Attending Clinician Unavailable Rah DAVIS, Sandeep Tinajero Attending Clinician OSVALDO SCHULTE Attending Clinician Unavailable Alesha DAVIS, Sendil K.H. Attending Clinician PAMELA FINLEY Attending Clinician Unavailable Lab, Ang - Db Attending Clinician Unavailable Malia BRENNER, Pamela Blackwell Attending Clinician LATRICE EDUARDO K.H. Attending Clinician Unavailable COREY DURAN Attending Clinician Unavailable COREY DURAN Attending Clinician Unavailable JUNITO LEE Attending Clinician Unavailable Pat Barajas Attending Clinician PAT POZO Attending Clinician Unavailable Shyam DAVIS, Corey Romo Attending Clinician Paul LEBRON, Kiley Narayan Attending Clinician FAVIOLA ORTIZ Attending Clinician Unavailable Angel DAVIS, Faviola Judge Attending Clinician Jessica DAVIS, Abraham Attending Clinician Maritza Santiago Attending Clinician JAQUELIN HERNANDEZ Attending Clinician Unavailable Mary DAVIS, Jaquelin Attending Clinician SENIA ARIAS Attending Clinician Unavailable MAEVE JAIME Attending Clinician Unavailable MAEVE JAIME Attending Clinician Unavailable JANE HERNANDEZ Attending Clinician Unavailable Jane Berkowitz Attending Clinician Michele LEBRON, Villa Cook Attending Clinician Unavailable BILL PATIÑO Attending Clinician Unavailable ROMINA VELAZQUEZ Attending Clinician Unavailable Nurse, [facility] Attending Clinician Unavailable KARLA SMITH Attending Clinician Unavailable ARTURO GREENE Attending Clinician Unavailable Unknown, Attending Attending Clinician Unavailable JOSIE SALMERON Attending Clinician Unavailable Josie Salmeron MD Attending Clinician Nurse, [facility] Attending Clinician Unavailable ENEDINA LIND Attending Clinician Unavailable ASHOK COLLINS Attending Clinician Unavailable Ashok Collins MD Attending Clinician CORI WYLIE Attending Clinician Unavailable SANDEEP MONREAL Attending Clinician Unavailable Pob, Ad[facility] Main Attending Clinician Unavailable Radha Resendez MD Attending Clinician Nirav Lake MD Attending Clinician Pgy2 Attending Clinician Unavailable Claudia Hairston Attending Clinician Osvaldo Blas Attending Clinician [phone] Provider, [facility] Attending Clinician Unavailable Graham Melara MD Attending Clinician JUAN LOJA Attending Clinician Unavailable ELEAZAR GIBBS Attending Clinician Unavailable Lab, Adc Fam Pob I Attending Clinician Unavailable Teo Villaya S Attending Clinician Zbigniew DAVIS, Juan Attending Clinician Edwin IT ANALYST, Anna Jones Attending Clinician Caroline IT ANALYST, Romina Angeles Attending Clinician Sophie LEBRON, Yesenia Attending Clinician Unavailable [facility] Attending Clinician Unavailable Faculty, [facility] Attending Clinician Unavailable Basia Carreon MD Attending Clinician Abisai DAVIS, Vidya Taylor Attending Clinician VIDYA DEAN Attending Clinician Unavailable Fellow, Christiano Colon Attending Clinician Unavailable Aaron Li MD Attending Clinician Thompson Sethi MD Attending Clinician Risk, Zoe-Odvtd-Mu/High Attending Clinician Unavailable George Tania NAVARRO Attending Clinician TANIA VAZQUEZ Attending Clinician Unavailable AARON LI Attending Clinician Unavailable AARON LI Attending Clinician Unavailable Leslye Demarco MD, Dio Attending Clinician [phone] Lili DAVIS, Marta Attending Clinician NICHOLE REAL Attending Clinician Unavailable Alexander AVALOSP, Delma Attending Clinician Sailaja [facility] Crystal Franklin Attending Clinician Nichole Real MD Attending Clinician Ultrasound, Feicarrillo Attending Clinician Unavailable Cedrick DAVIS, Adelaida Cook Attending Clinician Efrem IT ANALYSTSherry Attending Clinician ABIMBOLA GILL Attending Clinician Unavailable Bill DAVIS, Celena Attending Clinician Sameer Altamirano DO Attending Clinician Carla Alegre MD Attending Clinician DIO ABBOTT Attending Clinician Unavailable Brijesh DAVIS, Darian Suazo Attending Clinician Rehana ROBERTS, Marilee Robles Attending Clinician JAYY COONEY Attending Clinician Unavailable EDDIE HARRIS Attending Clinician Unavailable DAVY CRAWLEY Attending Clinician Unavailable RAFA HODGES Attending Clinician Unavailable TOMER CHACON Attending Clinician UnavailVIDYA Leonard Admitting Clinician Unavailable THOMPSON SETHI Admitting Clinician Unavailable DIO ABBOTT Admitting Clinician Unavailable ADELAIDA PHILIP Admitting Clinician Unavailable AARON LI Admitting Clinician Unavailable LATRICE EDUARDO.Rashmi Admitting Clinician Unavailable ABRAHAM CHAIDEZ Admitting Clinician Unavailable Abraham Chaidez MD Admitting Clinician JANE HERNANDEZ Admitting Clinician Unavailable FAVIOLA ORTIZ Admitting Clinician Unavailable Nirav Lake MD Admitting Clinician Vidya Dean MD Admitting Clinician Thompson Sethi MD Admitting Clinician Dio Abbott MD Admitting Clinician [phone] Nichole Real MD Admitting Clinician Adelaida Philip MD Admitting Clinician Aaron Li MD Admitting Clinician JAYY COONEY Admitting Clinician Unavailable EDDIE HARRIS Admitting Clinician Unavailable EDENILSON HANSEN Admitting Clinician Unavailable JOHNY SAM Admitting Clinician Unavailable TOMER CHACON Admitting Clinician Unavailtanvi chowdhury Payers Payer Name Policy Type Policy Number Effective Date Expiration Date Anastasiya WINSLOW [id number] 2020 HEALTH 00:00:00 MEDICAID PENDING PENDING 2020 00:00:00 PHCS GENERIC [id number] 2018 2018 00:00:00 00:00:00 Problems Condition Condition Condition Status Onset Resolution Last Treating Co mments Source Name Details Category Date Date Treatment Clinician Date Vaginal Vaginal Disease Active Univers discharge discharge 6-28 ity of 00:00: [place] [facility] High risk High risk Disease Active Uni vers bisexual bisexual 6-28 ity of behavior behavior 00:00: [place] [facility] DKA, type DKA, type Disease Active Uni vers 1, not at 1, not at 4-18 ity of goal goal 00:00: [place] [facility] Chronic Chronic Disease Active Univers pain of pain of 4-01 ity of both knees [place] Chronic Chronic Disease Active Univers pain of pain of 4- ity of both hips both hips 00:00: [place] judge 00 Medical Branch Tachycardi Tachycardi Disease Active U nivers a a 4-01 ity of 00:00: [place] [facility] Hyperglyce Hyperglyce Disease Active U nivers pablo pablo 8-13 ity of 00:00: [place] [facility] Diabetic Diabetic Disease Active Unive rs gastropare gastropare 8-05 it y of sis sis 00:00: [place] 00 [facility] Screening Screening Disease Active Uni vers examinatio examinatio 4-14 it y of n for STD n for STD 00:00: [place] judge (sexually (sexually 00 Medi ruben transmitte transmitte Br anch d disease) d disease) 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 4-14 ity of mellitus mellitus 00:00: [place] with with 00 Medical diabetic diabetic Branch autonomic autonomic neuropathy neuropathy Well woman Well woman Disease Active U nivers exam exam 3-24 ity of 00:00: [place] 00 Medical Branch Acute Acute Disease Active Univers blood loss blood loss 3-02 it y of anemia anemia 00:00: [place] [facility] Diabetic Diabetic Disease Active Unive rs ketoacidos ketoacidos 2-01 it y of is without is without [place] coma 00 Medical associated associated Br anch with type with type 1 diabetes 1 diabetes mellitus mellitus Bipolar Bipolar Disease Active Univers disease disease 1-14 ity of during during 00:00: [place] , , 00 Me dical antepartum antepartum Br anch Dysuria Dysuria Disease Active Univers 1-06 ity of 00:00: Medical Branch Vaginal Vaginal Disease Active Univers itching itching 1-06 ity of 00:00: [facility] Vaginal Vaginal Disease Active 2019-08 Univers bleeding bleeding 0-22 ity of 00:00: Medical Branch Diabetic Diabetic Disease Active 2016[facility] ketoacidos ketoacidos 1-15 Linette kes is without is without 00:00: Me dical coma coma 00 Center associated associated with with diabetes diabetes mellitus mellitus due to due to underlying underlying condition condition Dyspareuni Dyspareuni Disease Active 2016-08 U nivers a in a in 0-25 ity of female female 00:00: [facility] Branch Diabetic Diabetic Disease Active 2016-08 [facility] ketoacidos ketoacidos 0-16 Linette kes is without is without 00:00: Me dical coma coma 00 Center associated associated with type with type 1 diabetes 1 diabetes mellitus mellitus History of History of Disease Active U nivers tubal tubal 9-12 ity of ligation ligation 00:00: [facility] Branch DKA, type DKA, type Disease Active [facility] Nausea Nausea Disease Active [facility] Center 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 wellbutri n 1 yr ago- self d/c. Attention Attention Disease Active Overview: Univers deficit deficit 3-17 Formattin ity o f hyperactiv hyperactiv 00:00: g of this [place] ity ity 00 note Medical disorder disorder might be Bran ch (ADHD) (ADHD) different from the original. 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 Utility Allergies, Adverse Reactions, Alerts Allergy Allergy Status Severity Reaction(s) Onset Inactive Treating Comm ents Source Name Type Date Date Clinician CEPHALEX DRUG Active Hiv Univers IN INGREDI 04-09 ity of 00:00: 00 Medical Branch Cephalex Propensi Active Univer s in ty to 04-09 ity of adverse 00:00: [place] reaction 00 Medical s Branch Tree Nut Propensi Active 2016-[address] [facility] ty to 1-15 [facility] adverse 00:00: Medical reaction 00 Center s Onion Propensi Active Hives 2016-[address] ty to 0-16 [facility] adverse 00:00: Medical reaction 00 Center s Latex Propensi Active Rash [facility] 9-05 [facility] adverse 00:00: Medical reaction 00 Center s Acetamin Propensi Active Rash 2016- Bumps in [facility] ophen-Pa ty to 9-05 [facility] mabrom adverse 00:00: Medical reaction 00 Center s Prometha Propensi Active Anxiety 2017- Severe [facility] zine ty to 905 anxiety [facility] adverse 00:00: attacks Medical reaction 00 Center s ACETAMIN DRUG Active Low Rash 2016- Univers OPHEN-PA 04-07 ity of MABROM 00:00: [place] 00 Medical Branch PROMETHA DRUG Active Low Anxiety 2016- Univers ZINE INGREDI 04-07 ity of 00:00: [...] Pt Uni vers (Ibuprof ty to comments 2 reported ity of en) adverse 00:00: that her [place] reaction mouth Medical s to gets Branch drug "itchy and swollen" when she takes Midol and Midol Teen. Dr. Guo notified. Sister insists that pt is only allergic to Midol, NOT ibuprofen . Social History Social Habit Start Date Stop Date Quantity Comments Source Exposure to 2022-04-05 2022-04-15 Not sure [facility] SARS-CoV-2 00:00:00 15:12:00 [facility] (event) Branch Alcohol intake 2017-06-17 2017-06-17 Current LISA Crossk es 00:00:00 00:00:00 non-drinker of Medical Ce nter alcohol (finding) Tobacco use and 2017-04-14 2017-04-14 Smokeless tobacco Un iversity of exposure 00:00:00 00:00:00 non-user [facility] History of 2012-04-14 2015-04-14 Cigarette Smoker Universi ty of tobacco use 00:00:00 00:00:00 [facility] Sex Assigned At [birth year] LISA Cross kes 00:00:00 00:00:00 Medical Center Smoking Status Start Date Stop Date Source Ex-smoker 2017-04-14 00:00:00 2017-04-14 00:00:00 [facility] Medications Ordered Filled Start Stop Current Ordering Indication Dosage Frequency Signature Comments Components Source Medication Medication Date Date Medication? Clinician (SIG) Name Name insulin 2021-08 Yes [id number] 60U inject 60 Univers aspart 0 9101 Units ity of RAPID 00:00: under the [place] (NOVOLOG 00 skin in Medical U-100 the Branch INSULIN morning. ASPART) 100 unit/mL injection DULOXETINE Yes [id number] TAKE ONE Univers 20 mg 9-12 CAPSULE BY ity of capsule 00:00: MOUTH [place] 00 EVERY Medical MORNING Branch DULOXETINE 0 Yes [id number] TAKE ONE Univers 20 mg 9-12 CAPSULE BY ity of capsule 00:00: MOUTH [place] 00 EVERY Medical MORNING Branch DULOXETINE Yes [id number] TAKE ONE Univers 20 mg 9-12 CAPSULE BY ity of capsule 00:00: MOUTH [place] 00 EVERY Medical MORNING Branch insulin Yes 15 units 3 Univ ers aspart 9-08 x a day ity of RAPID 00:00: before [place] (NOVOLOG 00 meals . Medical U-100 For use Branch INSULIN with ASPART) 100 Insulin unit/mL pump injection insulin Yes 15 units 3 Univ ers aspart 9-08 x a day ity of RAPID 00:00: before [place] (NOVOLOG 00 meals . Medical U-100 For use Branch INSULIN with ASPART) 100 Insulin unit/mL pump injection insulin 2022-0 Yes 15 units 3 Univ ers aspart 04-10 x a day ity of RAPID 00:00: before [place] (NOVOLOG 00 meals . Medical U-100 For use Branch INSULIN with ASPART) 100 Insulin unit/mL pump injection insulin 0 2021- No 15 units 3 Uni vers aspart 04-10 10- x a day ity of RAPID 00:00: 00:00 before [place] (NOVOLOG 00 :00 meals . Medical U-100 For use Branch INSULIN with ASPART) 100 Insulin unit/mL pump injection gabapentin 2021-0 Yes [id number] Take 1 cap Univers 100 mg 8-16 by mouth ity of capsule 00:00: at [place] [address] bedtime, Medical titrate Branch medication up to 3 caps by mouth three times a day gabapentin 2021-0 Yes [id number] Take 1 cap Univers 100 mg 8-16 by mouth ity of capsule 00:00: at [place] [address] bedtime, Medical titrate Branch medication up to 3 caps by mouth three times a day gabapentin 2021-0 Yes [id number] Take 1 cap Univers 100 mg 8-16 by mouth ity of capsule 00:00: at [place] [address] bedtime, Medical titrate Branch medication up to 3 caps by mouth three times a day gabapentin 2021-0 Yes [id number] Take 1 cap Univers 100 mg 8-16 by mouth ity of capsule 00:00: at [place] [address] bedtime, Medical titrate Branch medication up to 3 caps by mouth three times a day gabapentin 2021-0 Yes [id number] Take 1 cap Univers 100 mg 8-16 by mouth ity of capsule 00:00: at [place] [address] bedtime, Medical titrate Branch medication up to 3 caps by mouth three times a day gabapentin 2021-0 Yes [id number] Take 1 cap Univers 100 mg 8-16 by mouth ity of capsule 00:00: at [place] [address] bedtime, Medical titrate Branch medication up to 3 caps by mouth three times a day DULoxetine 2021-0 2021- No [id number] 20mg Take 1 Univers 20 mg 8-15 -12 capsule by ity of capsule 00:00: 00:00 mouth in [place] 00 :00 the Medical morning. Branch rizatriptan 2021-0 Yes [id number] 10mg Take 1 U nivers (MAXALT) 10 7-29 tablet by ity of mg tablet 00:00: [place] 00 needed for Medical Migraine. Branch May repeat in 2 hours if needed, do not exceed daily recommende d dose rizatriptan 2-0 Yes [id number] 10mg Take 1 U nivers (MAXALT) 10 7-29 tablet by ity of mg tablet 00:00: [place] 00 needed for Medical Migraine. Branch May repeat in 2 hours if needed, do not exceed daily recommende d dose rizatriptan 2021-0 Yes [id number] 10mg Take 1 U nivers (MAXALT) 10 7-29 tablet by ity of mg tablet 00:00: [place] 00 needed for Medical Migraine. Branch May repeat in 2 hours if needed, do not exceed daily recommende d dose rizatriptan 2021-0 Yes [id number] 10mg Take 1 U nivers (MAXALT) 10 7-29 tablet by ity of mg tablet 00:00: [place] 00 needed for Medical Migraine. Branch May repeat in 2 hours if needed, do not exceed daily recommende d dose rizatriptan 2021-0 Yes [id number] 10mg Take 1 U nivers (MAXALT) 10 7-29 tablet by ity of mg tablet 00:00: [place] 00 needed for Medical Migraine. Branch May repeat in 2 hours if needed, do not exceed daily recommende d dose rizatriptan 2021-0 Yes [id number] 10mg Take 1 U nivers (MAXALT) 10 7-29 tablet by ity of mg tablet 00:00: [place] 00 needed for Medical Migraine. Branch May repeat in 2 hours if needed, do not exceed daily recommende d dose meloxicam 2-0 Yes [id number] 7.5mg Take 1 Univers 7.5 mg 7-08 tablet by ity of tablet 00:00: mouth once [place] 00 daily as Medical needed for Branch Pain (scale 7-10). meloxicam 2-0 Yes [id number] 7.5mg Take 1 Univers 7.5 mg 7-08 tablet by ity of tablet 00:00: mouth once [place] 00 daily as Medical needed for Branch Pain (scale 7-10). meloxicam 2-0 Yes [id number] 7.5mg Take 1 Univers 7.5 mg 7-08 tablet by ity of tablet 00:00: mouth once [place] 00 daily as Medical needed for Branch Pain (scale 7-10). meloxicam 2022-0 Yes [id number] 7.5mg Take 1 Univers 7.5 mg 7-08 tablet by ity of tablet 00:00: mouth once [place] 00 daily as Medical needed for Branch Pain (scale 7-10). meloxicam 2022-0 Yes [id number] 7.5mg Take 1 Univers 7.5 mg 7-08 tablet by ity of tablet 00:00: mouth once [place] 00 daily as Medical needed for Branch Pain (scale 7-10). meloxicam 2022-0 Yes [id number] 7.5mg Take 1 Univers 7.5 mg 7-08 tablet by ity of tablet 00:00: mouth once [place] 00 daily as Medical needed for Branch Pain (scale 7-10). flash 2022-0 Yes [id number] 1{box} 1 Box Un bradly glucose 7-06 9101 every 14 ity of sensor 00:00: (fourteen) [place] (FREESTYLE 00 days. Medical DC 2 Branch SENSOR) Kit flash 202-0 Yes [id number] 1{box} 1 Box Un bradly glucose 7-06 9101 every 14 ity of sensor 00:00: (fourteen) [place] (FREESTYLE 00 days. Medical DC 2 Branch SENSOR) Kit flash 2022-0 Yes [id number] 1{box} 1 Box Un bradly glucose 7-06 9101 every 14 ity of sensor 00:00: (fourteen) [place] (FREESTYLE 00 days. Medical DC 2 Branch SENSOR) Kit flash 2022-0 Yes [id number] 1{box} 1 Box Un bradly glucose 7-06 9101 every 14 ity of sensor 00:00: (fourteen) [place] (FREESTYLE 00 days. Medical DC 2 Branch SENSOR) Kit flash 2022-0 Yes [id number] 1{box} 1 Box Un bradly glucose 7-06 9101 every 14 ity of sensor 00:00: (fourteen) [place] (FREESTYLE 00 days. Medical DC 2 Branch SENSOR) Kit flash 2022-0 Yes [id number] 1{box} 1 Box Un bradly glucose 7-06 9101 every 14 ity of sensor 00:00: (fourteen) [place] (FREESTYLE 00 days. Medical DC 2 Branch SENSOR) Kit insulin 2021- No [id number] 15U inject 15 Univers aspart 7 09-08 9101 Units ity of U-100 00:00: 00:00 under the [place] (NOVOLOG 00 :00 skin 3 Medical FLEXPEN (three) Branch U-100 times INSULIN) daily 100 unit/mL before (3 mL) meals. injection flash Yes [id number] 1{box} 1 Box Unive rs glucose 4-25 daily. ity of scanning 00:00: [place] reader Medical (FREESTYLE Branch DC 2 READER) Misc insulin Yes [id number] 30U inject 30 U nivers degludec 4-25 Units ity of (TRESIBA 00:00: [place] FLEXTOUCH 00 skin at Medical U-100) 100 bedtime. Branc h unit/mL (3 mL) InPn flash Yes [id number] 1{box} 1 Box Unive rs glucose 4-25 daily. ity of scanning 00:00: [place] reader Medical (FREESTYLE Branch DC 2 READER) Misc insulin Yes [id number] 30U inject 30 U nivers degludec 4-25 Units ity of (TRESIBA 00:00: [place] FLEXTOU[place] 00 skin at Medical U-100) 100 bedtime. Branc h unit/mL (3 mL) InPn flash 2021-0 Yes [id number] 1{box} 1 Box Unive rs glucose 4-25 daily. ity of scanning 00:00: [place] reader Medical (FREESTYLE Branch DC 2 READER) Misc insulin 0 Yes [id number] 30U inject 30 U nivers degludec 4-25 Units ity of (TRESIBA 00:00: [place] FLEXTOU[place] 00 skin at Medical U-100) 100 bedtime. Branc h unit/mL (3 mL) InPn flash 0 Yes [id number] 1{box} 1 Box Unive rs glucose 4-25 daily. ity of scanning 00:00: [place] reader Medical (FREESTYLE Branch DC 2 READER) Misc insulin 0 Yes [id number] 30U inject 30 U nivers degludec 4-25 Units ity of (TRESIBA 00:00: [place] FLEXTOU[place] 00 skin at Medical U-100) 100 bedtime. Branc h unit/mL (3 mL) InPn flash Yes [id number] 1{box} 1 Box Unive rs glucose 4-25 daily. ity of scanning 00:00: [place] reader 00 Medical (FREESTYLE Branch DC 2 READER) Misc insulin Yes [id number] 30U inject 30 U nivers degludec 4-25 Units ity of (TRESIBA 00:00: [place] FLEXT[place] 00 skin at Medical U-100) 100 bedtime. Branc h unit/mL (3 mL) InPn flash Yes [id number] 1{box} 1 Box Unive rs glucose 4-25 daily. ity of scanning 00:00: [place] reader 00 Medical (FREESTYLE Branch DC 2 READER) Misc insulin Yes [id number] 30U inject 30 U nivers degludec 4-25 Units ity of (TRESIBA 00:00: [place] FLEXTOU[place] 00 skin at Medical U-100) 100 bedtime. Branc h unit/mL (3 mL) InPn pen needle, 2020-08 Yes [id number] 200{eac 200 Each 6 Univers diabetic 31 0-05 h} (six) ity of gauge x 00:00: times [place] 1/6" Ndle 00 daily. Medical Branch pen needle, 2020-08 Yes [id number] 200{eac 200 Each 6 Univers diabetic 31 0-05 h} (six) ity of gauge x 00:00: times [place] 1/6" Ndle 00 daily. Medical Branch pen needle, 2020-08 Yes [id number] 200{eac 200 Each 6 Univers diabetic 31 0-05 h} (six) ity of gauge x 00:00: times [place] 1/6" Ndle 00 daily. Medical Branch pen needle, 2020-08 Yes [id number] 200{eac 200 Each 6 Univers diabetic 31 0-05 h} (six) ity of gauge x 00:00: times [place] 1/6" Ndle 00 daily. Medical Branch pen needle, 2020-08 Yes [id number] 200{eac 200 Each 6 Univers diabetic 31 0-05 h} (six) ity of gauge x 00:00: times [place] 1/6" Ndle 00 daily. Medical Branch pen needle, 2020-08 Yes [id number] 200{eac 200 Each 6 Univers diabetic 31 0-05 h} (six) ity of gauge x 00:00: times [place] 1/6" Ndle 00 daily. Medical Branch Lancets 2019-08 Yes Patient to [facility] ers Misc 0-06 check ity of 00:00: blood [place] 00 sugar four Medical times Branch daily Lancets 2019-08 Yes Patient to [facility] [place] [facility] Misc 0-06 check ity of 00:00: blood [place] 00 sugar four Medical times Branch daily Lancets 2019-08 Yes Patient to [facility] [place] [facility] Misc 0-06 check ity of 00:00: blood [place] 00 sugar four Medical times Branch daily Lancets 2019-08 Yes Patient to [facility] [place] [facility] Misc 0-06 check ity of 00:00: blood [place] 00 sugar four Medical times Branch daily Lancets 2019-08 Yes Patient to [facility] [place] [facility] Misc 0-06 check ity of 00:00: blood [place] 00 sugar four Medical times Branch daily Lancets 2019-08 Yes Patient to [facility] [place] [facility] Misc 0-06 check ity of 00:00: blood [place] 00 sugar four Medical times Branch daily medroxyPROG 2016-08 Yes 150mg Inject [address] [facility] ESTERone 1-17 contracepti mg Luke s (DEPO-PROVE 12:40: on intramuscu Medical RA) 150 09 larly Center mg/mL every 3 injection (three) months. sertraline 2016-08 Yes anxiety 50mg QD Take [address] [facility] (ZOLOFT) 50 1-17 with by mouth Luke s MG tablet 12:40: depression daily. Medical 09 Center traZODone 2016-08 Yes insomnia 50mg QD Take [address] [facility] (DESYREL) 1-17 associated by mouth [facility] 50 MG 12:40: with nightly. Medical tablet 09 depression Center ondansetron 2016-08 Yes 4mg Take [address] (ZOFRAN-ODT 1-17 by mouth Luke s ) 4 MG 12:40: every 8 Medical disintegrat 09 (eight) Cente r ing tablet hours as needed for Nausea. insulin 2016-08 Yes type 1 10U Inject 0.[address] regular 1-17 diabetes mLs (10 [facility] (HUMULIN 00:00: mellitus Units Medi ruben R,NOVOLIN 00 total) Center R) 100 subcutaneo unit/mL usly 3 injection (three) times daily before meals Use as directed.. insulin 2016-08 Yes 30U QD Inject 30 [facility]17 [facility] (TRESIBA 00:00: subcutaneo Med ical FLEXTOUCH 00 usly every Cent er U-100) 100 evening. unit/mL (3 mL) InPn insulin Yes If [facility] regular 9-07 XF=[id number] [facility] (HUMULIN 00:00: , give Medical R,NOVOLIN 00 1unitIf Center R) 100 CO=894-733 unit/mL , give injection 2unitsIf PI=165-598 , give 4unitsIf HB=107-012 , give 6unitsIf ML=280-097 , give 8units. Immunizations Ordered Immunization Filled Immunization Date Status Commen ts Source Name Name Influenza Virus 2021-11-01 Completed Universit [facility] of Vaccine Quad IM, 00:00:00 [facility] dical Preserv and ABX Free Bran ch 6 MO-64 YRS Influenza Virus 2021-11-01 Completed [facility] of Vaccine 00:00:00 [facility] Influenza Virus 2021-11-01 Completed Universit y of Vaccine Quad IM, 00:00:00 [facility] dical Preserv and ABX Free Bran ch 6 MO-64 YRS Influenza Virus 2021-11-01 Completed [facility]it y of Vaccine 00:00:00 [facility] Influenza Virus 2021-11-01 Completed [facility]it y of Vaccine Quad IM, 00:00:00 [facility] dical Preserv and ABX Free Bran ch 6 MO-64 YRS Influenza Virus 2021-11-01 Completed [facility]it y of Vaccine 00:00:00 [facility] Influenza Virus 2021-11-01 Completed [facility]it y of Vaccine Quad IM, 00:00:00 [facility] dical Preserv and ABX Free Bran ch 6 MO-64 YRS Influenza Virus 2021-11-01 Completed [facility]it y of Vaccine 00:00:00 [facility] Influenza Virus 2021-11-01 Completed Universit y of Vaccine Quad IM, 00:00:00 [facility] dical Preserv and ABX Free Bran ch 6 MO-64 YRS Influenza Virus 2021-11-01 Completed [facility]it y of Vaccine 00:00:00 [facility] Influenza Virus 2021-11-01 Completed [facility]it y of Vaccine Quad IM, 00:00:00 [facility] dical Preserv and ABX Free Bran ch 6 MO-64 YRS Influenza Virus 2021-11-01 Completed [facility]it y of Vaccine 00:00:00 [facility] SARS-COV-2 COVID-19 2020-11-10 Completed Unive rsity of PFIZER VACCINE 00:00:00 [facility] SARS-COV-2 COVID-19 2020-11-10 Completed Unive rsity of PFIZER VACCINE 00:00:00 [facility] SARS-COV-2 COVID-19 2020-11-10 Completed Unive rsity of PFIZER VACCINE 00:00:00 [facility] SARS-COV-2 COVID-19 2020-11-10 Completed Unive rsity of PFIZER VACCINE 00:00:00 [facility] SARS-COV-2 COVID-19 2020-11-10 Completed Unive rsity of PFIZER VACCINE 00:00:00 [facility] SARS-COV-2 COVID-19 2020-11-10 Completed Unive rsity of PFIZER VACCINE 00:00:00 [facility] SARS-COV-2 COVID-19 2020-10-20 Completed Unive rsity of PFIZER VACCINE 00:00:00 [facility] SARS-COV-2 COVID-19 2020-10-20 Completed Unive rsity of PFIZER VACCINE 00:00:00 [facility] SARS-COV-2 COVID-19 2020-10-20 Completed Unive rsity of PFIZER VACCINE 00:00:00 [facility] SARS-COV-2 COVID-19 2020-10-20 Completed Unive rsity of PFIZER VACCINE 00:00:00 [facility] SARS-COV-2 COVID-19 2020-10-20 Completed Unive rsity of PFIZER VACCINE 00:00:00 [facility] SARS-COV-2 COVID-19 2020-10-20 Completed Unive rsity of PFIZER VACCINE 00:00:00 [facility] TDAP 2020-09-13 Completed University of 00:00:00 [facility] TDAP 2020-09-13 Completed University of 00:00:00 [facility] TDAP 2020-09-13 Completed University of 00:00:00 [facility] TDAP 2020-09-13 Completed University of 00:00:00 [facility] TDAP 2020-09-13 Completed University of 00:00:00 [facility] TDAP 2020-09-13 Completed University of 00:00:00 [facility] Influenza Virus 2020-06-11 Completed Universit y of Vaccine Quad .5 mL 00:00:00 [facility] 6+ MO Branch Influenza Virus 2020-06-11 Completed Universit y of Vaccine Quad .5 mL 00:00:00 [facility] 6+ MO Branch Influenza Virus 2020-06-11 Completed [facility]it y of Vaccine Quad .5 mL 00:00:00 [facility] 6+ MO Branch Influenza Virus 2020-06-11 Completed [facility]it y of Vaccine Quad .5 mL 00:00:00 [facility] 6+ MO Branch Influenza Virus 2020-06-11 Completed [facility]it y of Vaccine Quad .5 mL 00:00:00 [facility] 6+ MO Branch Influenza Virus 2020-06-11 Completed [facility]it y of Vaccine Quad .5 mL 00:00:00 [facility] 6+ MO Branch HPV9 2017-07-14 Completed University of 00:00:00 [facility] HPV9 2017-07-14 Completed University of 00:00:00 [facility] HPV9 2017-07-14 Completed University of 00:00:00 [facility] HPV9 2017-07-14 Completed University of 00:00:00 [facility] HPV9 2017-07-14 Completed University of 00:00:00 [facility] HPV9 2017-07-14 Completed University of 00:00:00 [facility] Influenza Virus 2017-05-18 Completed Universit y of Vaccine (3+ yrs) 00:00:00 [facility] Influenza Virus 2017-05-18 Completed Universit y of Vaccine (3+ yrs) 00:00:00 [facility] Influenza Virus 2017-05-18 Completed Universit y of Vaccine (3+ yrs) 00:00:00 [facility] Influenza Virus 2017-05-18 Completed Universit y of Vaccine (3+ yrs) 00:00:00 [facility] Influenza Virus 2017-05-18 Completed Universit y of Vaccine (3+ yrs) 00:00:00 [facility] Influenza Virus 2017-05-18 Completed Universit y of Vaccine (3+ yrs) 00:00:00 [facility] Influenza Three-TIV 2017-05-18 [facility] 5[facility]R 00:[facility]:00 [facility] HPV9 2017-04-14 Completed University of 00:00:00 [facility] TDAP (ADACEL) 2017-04-14 Completed University of VACCINE 00:00:00 [facility] HPV9 2017-04-14 Completed University of 00:00:00 [facility] TDAP (ADACEL) 2017-04-14 Completed University of VACCINE 00:00:00 [facility] HPV9 2017-04-14 Completed University of 00:00:00 [facility] TDAP (ADACEL) 2017-04-14 Completed University of VACCINE 00:00:00 [facility] HPV9 2017-04-14 Completed University of 00:00:00 [facility] TDAP (ADACEL) 2017-04-14 Completed University of VACCINE 00:00:00 [facility] HPV9 2017-04-14 Completed University of 00:00:00 [facility] TDAP (ADACEL) 2017-04-14 Completed University of VACCINE 00:00:00 [facility] HPV9 2017-04-14 Completed University of 00:00:00 [facility] TDAP (ADACEL) 2017-04-14 Completed University of VACCINE 00:00:00 [facility] TDAP 2015-12-27 Completed University of 00:00:00 [facility] TDAP 2015-12-27 Completed University of 00:00:00 [facility] TDAP 2015-12-27 Completed University of 00:00:00 [facility] TDAP 2015-12-27 Completed University of 00:00:00 [facility] TDAP 2015-12-27 Completed University of 00:00:00 [facility] TDAP 2015-12-27 Completed University of 00:00:00 [facility] Influenza Virus 2015-09-07 Completed Universit y of Vaccine Quad IM 3+ 00:00:00 [facility] Influenza Virus 2015-09-07 Completed Universit y of Vaccine Quad IM 3+ 00:00:00 [facility] Influenza Virus 2015-09-07 Completed Universit y of Vaccine Quad IM 3+ 00:00:00 [facility] Influenza Virus 2015-09-07 Completed Universit y of Vaccine Quad IM 3+ 00:00:00 [facility] Branch Influenza Virus 2015-09-07 Completed Universit y of Vaccine Quad IM 3+ 00:00:00 [facility] Influenza Virus 2015-09-07 Completed [facility]it y of Vaccine Quad IM 3+ 00:00:00 [facility] Branch HPV 2015-01-24 Completed University of 00:00:00 [facility] HPV 2015-01-24 Completed University of 00:00:00 [facility] HPV 2015-01-24 Completed University of 00:00:00 [facility] HPV 2015-01-24 Completed University of 00:00:00 [facility] HPV 2015-01-24 Completed University of 00:00:00 [facility] HPV 2015-01-24 Completed University of 00:00:00 [facility] Pneumococcal 13 2014-07-20 Completed Universit y of Conjugate, PCV13 00:00:00 [facility] dical (Prevnar 13) Branch Pneumococcal 13 2014-07-20 Completed Universit y of Conjugate, PCV13 00:00:00 [facility] dical (Prevnar 13) Branch Pneumococcal 13 2014-07-20 Completed Universit y of Conjugate, PCV13 00:00:00 [facility] dical (Prevnar 13) Branch Pneumococcal 13 2014-07-20 Completed Universit y of Conjugate, PCV13 00:00:00 [facility] dical (Prevnar 13) Branch Pneumococcal 13 2014-07-20 Completed Universit y of Conjugate, PCV13 00:00:00 [facility] dical (Prevnar 13) Branch Pneumococcal 13 2014-07-20 Completed Universit y of Conjugate, PCV13 00:00:00 [facility] dical (Prevnar 13) Branch Meningococcal 2010-06-06 Completed University of Vaccine 00:00:00 [facility] TDAP 2010-06-06 Completed University of 00:00:00 [facility] Meningococcal 2010-06-06 Completed University of Vaccine 00:00:00 [facility] TDAP 2010-06-06 Completed University of 00:00:00 [facility] Meningococcal 2010-06-06 Completed University of Vaccine 00:00:00 [facility] TDAP 2010-06-06 Completed University of 00:00:00 [facility] Meningococcal 2010-06-06 Completed University of Vaccine 00:00:00 [facility] TDAP 2010-06-06 Completed University of 00:00:00 [facility] Meningococcal 2010-06-06 Completed University of Vaccine 00:00:00 [facility] TDAP 2010-06-06 Completed University of 00:00:00 [facility] Meningococcal 2010-06-06 Completed University of Vaccine 00:00:00 [facility] TDAP 2010-06-06 Completed University of 00:00:00 [facility] Varicella 2008-03-09 Completed University of (varivax)(chicken 00:00:00 [place] [facility] pox[facility] Varicella 2008-03-09 Completed [facility] of (varivax)(chicken 00:00:00 [place] [facility] pox[facility] Varicella 2008-03-09 Completed [facility] of (varivax)(chicken 00:00:00 [place] [facility] pox) [facility] Varicella 2008-03-09 Completed [facility] of (varivax)(chicken 00:00:00 [place] [facility] pox) [facility] Varicella 2008-03-09 Completed [facility] of (varivax)(chicken 00:00:00 [place] [facility] pox) [facility] Varicella 2008-03-09 Completed [facility] of (varivax)(chicken 00:00:00 [place] [facility] pox) [facility] HEPATITIS A 2006-03-09 Completed University of 00:00:00 [facility] HEPATITIS A 2006-03-09 Completed University of 00:00:00 [facility] HEPATITIS A 2006-03-09 Completed University of 00:00:00 [facility] HEPATITIS A 2006-03-09 Completed University of 00:00:00 [facility] HEPATITIS A 2006-03-09 Completed University of 00:00:00 [facility] HEPATITIS A 2006-03-09 Completed University of 00:00:00 [facility] HEPATITIS A 2005-05-22 Completed University of 00:00:00 [facility] Hep B, Adol or Pedi 2005-05-22 Completed Unive rsity of Dosage 00:00:00 [facility] Polio (IPV/OPV) 2005-05-22 Completed Universit y of 00:00:00 [facility] Td 2005-05-22 Completed University of 00:00:00 [facility] HEPATITIS A 2005-05-22 Completed University of 00:00:00 [facility] Hep B, Adol or Pedi 2005-05-22 Completed Unive rsity of Dosage 00:00:00 [facility] Polio (IPV/OPV) 2005-05-22 Completed Universit y of 00:00:00 [facility] Td 2005-05-22 Completed University of 00:00:00 [facility] HEPATITIS A 2005-05-22 Completed University of 00:00:00 [facility] Hep B, Adol or Pedi 2005-05-22 Completed Unive rsity of Dosage 00:00:00 [facility] Polio (IPV/OPV) 2005-05-22 Completed Universit y of 00:00:00 [facility] Td 2005-05-22 Completed University of 00:00:00 [facility] HEPATITIS A 2005-05-22 Completed University of 00:00:00 [facility] Hep B, Adol or Pedi 2005-05-22 Completed Unive rsity of Dosage 00:00:00 [facility] Polio (IPV/OPV) 2005-05-22 Completed [facility]it y of 00:00:00 [facility] Td 2005-05-22 Completed University of 00:00:00 [facility] HEPATITIS A 2005-05-22 Completed University of 00:00:00 [facility] Hep B, Adol or Pedi 2005-05-22 Completed Unive rsity of Dosage 00:00:00 [facility] Polio (IPV/OPV) 2005-05-22 Completed Universit y of 00:00:00 [facility] Td 2005-05-22 Completed University of 00:00:00 [facility] HEPATITIS A 2005-05-22 Completed University of 00:00:00 [facility] Hep B, Adol or Pedi 2005-05-22 Completed Unive rsity of Dosage 00:00:00 [facility] Polio (IPV/OPV) 2005-05-22 Completed [facility]it y of 00:00:00 [facility] Td 2005-05-22 Completed University of 00:00:00 [facility] DTAP 2005-01-14 Completed University of 00:00:00 [facility] Hep B, Adol or Pedi 2005-01-14 Completed Unive rsity of Dosage 00:00:00 [facility] MMR 2005-01-14 Completed University of 00:00:00 [facility] Polio (IPV/OPV) 2005-01-14 Completed [facility] y of 00:00:00 [facility] DTAP 2005-01-14 Completed University of 00:00:00 [facility] Hep B, Adol or Pedi 2005-01-14 Completed Unive rsity of Dosage 00:00:00 [facility] MMR 2005-01-14 Completed University of 00:00:00 [facility] Polio (IPV/OPV) 2005-01-14 Completed [facility]it y of 00:00:00 [facility] DTAP 2005-01-14 Completed University of 00:00:00 [facility] Hep B, Adol or Pedi 2005-01-14 Completed Unive rsity of Dosage 00:00:00 [facility] MMR 2005-01-14 Completed University of 00:00:00 [facility] Polio (IPV/OPV) 2005-01-14 Completed Universit y of 00:00:00 [facility] DTAP 2005-01-14 Completed University of 00:00:00 [facility] Hep B, Adol or Pedi 2005-01-14 Completed Unive rsity of Dosage 00:00:00 [facility] MMR 2005-01-14 Completed University of 00:00:00 [facility] Polio (IPV/OPV) 2005-01-14 Completed [facility]it y of 00:00:00 [facility] DTAP 2005-01-14 Completed University of 00:00:00 [facility] Hep B, Adol or Pedi 2005-01-14 Completed Unive rsity of Dosage 00:00:00 [facility] MMR 2005-01-14 Completed University of 00:00:00 [facility] Polio (IPV/OPV) 2005-01-14 Completed Universit y of 00:00:00 [facility] DTAP 2005-01-14 Completed University of 00:00:00 [facility] Hep B, Adol or Pedi 2005-01-14 Completed Unive rsity of Dosage 00:00:00 [facility] MMR 2005-01-14 Completed University of 00:00:00 [facility] Polio (IPV/OPV) 2005-01-14 Completed Universit y of 00:00:00 [facility] DTAP 2004-03-12 Completed University of 00:00:00 [facility] Hep B, Adol or Pedi 2004-03-12 Completed Unive rsity of Dosage 00:00:00 [facility] Polio (IPV/OPV) 2004-03-12 Completed Universit y of 00:00:00 [facility] DTAP 2004-03-12 Completed University of 00:00:00 [facility] Hep B, Adol or Pedi 2004-03-12 Completed Unive rsity of Dosage 00:00:00 [facility] Polio (IPV/OPV) 2004-03-12 Completed Universit y of 00:00:00 [facility] DTAP 2004-03-12 Completed University of 00:00:00 [facility] Hep B, Adol or Pedi 2004-03-12 Completed Unive rsity of Dosage 00:00:00 [facility] Polio (IPV/OPV) 2004-03-12 Completed Universit y of 00:00:00 [facility] DTAP 2004-03-12 Completed University of 00:00:00 [facility] Hep B, Adol or Pedi 2004-03-12 Completed Unive rsity of Dosage 00:00:00 [facility] Polio (IPV/OPV) 2004-03-12 Completed Universit y of 00:00:00 [facility] DTAP 2004-03-12 Completed University of 00:00:00 [facility] Hep B, Adol or Pedi 2004-03-12 Completed Unive rsity of Dosage 00:00:00 [facility] Polio (IPV/OPV) 2004-03-12 Completed Universit y of 00:00:00 [facility] DTAP 2004-03-12 Completed University of 00:00:00 [facility] Hep B, Adol or Pedi 2004-03-12 Completed Unive rsity of Dosage 00:00:00 [facility] Polio (IPV/OPV) 2004-03-12 Completed [facility]it y of 00:00:00 [facility] MMR 2004-03-11 Completed [facility] of 00:00:00 [facility] Varicella 2004-03-11 Completed University of (varivax)(chicken 00:00:00 [place] [facility] pox) [facility] MMR 2004-03-11 Completed [facility] of 00:00:00 [facility] Varicella 2004-03-11 Completed University of (varivax)(chicken 00:00:00 [place] [facility] pox) Branch MMR 2004-03-11 Completed [facility] of 00:00:00 [facility] Varicella 2004-03-11 Completed University of (varivax)(chicken 00:00:00 [place] [facility] pox) Branch MMR 2004-03-11 Completed [facility] of 00:00:00 [facility] Varicella 2004-03-11 Completed University of (varivax)(chicken 00:00:00 [place] [facility] pox) Branch MMR 2004-03-11 Completed [facility] of 00:00:00 [facility] Varicella 2004-03-11 Completed University of (varivax)(chicken 00:00:00 [place] [facility] pox) Branch MMR 2004-03-11 Completed University of 00:00:00 [facility] Varicella 2004-03-11 Completed University of (varivax)(chicken 00:00:00 [place] [facility] pox) Branch HEPATITIS A 2000-02-21 Completed University of 00:00:00 [facility] Varicella 2000-02-21 Completed University of (varivax)(chicken 00:00:00 [place] [facility] pox) Branch HEPATITIS A 2000-02-21 Completed [facility] of 00:00:00 [facility] Varicella 2000-02-21 Completed University of (varivax)(chicken 00:00:00 [place] [facility] pox) Branch HEPATITIS A 2000-02-21 Completed University of 00:00:00 [facility] Varicella 2000-02-21 Completed University of (varivax)(chicken 00:00:00 [place] [facility] pox) Branch HEPATITIS A 2000-02-21 Completed [facility] of 00:00:00 [facility] Varicella 2000-02-21 Completed University of (varivax)(chicken 00:00:00 [place] [facility] pox) Branch HEPATITIS A 2000-02-21 Completed [facility] of 00:00:00 [facility] Varicella 2000-02-21 Completed University of (varivax)(chicken 00:00:00 [place] [facility] pox) Branch HEPATITIS A 2000-02-21 Completed [facility] of 00:00:00 [facility] Varicella 2000-02-21 Completed [facility] of (varivax)(chicken 00:00:00 [place] [facility] pox) Branch Varicella 1999-08-08 Completed [facility] of (varivax)(chicken 00:00:00 [place] [facility] pox) Branch Varicella 1999-08-08 Completed [facility] of (varivax)(chicken 00:00:00 [place] [facility] pox) Branch Varicella 1999-08-08 Completed [facility] of (varivax)(chicken 00:00:00 [place] [facility] pox) Branch Varicella 1999-08-08 Completed [facility] of (varivax)(chicken 00:00:00 [place] [facility] pox) Branch Varicella 1999-08-08 Completed [facility] of (varivax)(chicken 00:00:00 [place] [facility] pox) Branch Varicella 1999-08-08 Completed [facility] of (varivax)(chicken 00:00:00 [place] [facility] pox) [facility] Procedures Procedure Date / Time Performing Clinician Source Performed DME/SUPPLY JUSTIFICATION 2022-04-08 05:01:00 Doctor Unassigned, No [facility] DME/SUPPLY JUSTIFICATION 2022-03-24 05:01:00 Doctor Unassigned, No [facility] Encounters Start End Encounter Admission Attending Care Care Encounter Source Date/Time Date/Time Type Type Clinicians Facility Department ID 2021-06-03 Emergency [facility] [id number] Univers 15:14:34 ity of [facility] 2021-06-03 Emergency [facility] [id number] Univers 12:37:06 ity of [facility] 2021-06-03 Emergency [facility] [id number] Univers 10:07:04 ity of [facility] 2021-06-03 Emergency [facility] [id number] Univers 02:22:48 ity of [facility] 2021-06-02 [id number] Univers 12:07:03 it[facility] of [facility] 2021-06-02 [facility] [id number] Univers 10:34:21 ity of [facility] 2021-06-02 Outpatient P [facility] [id number] Univers 01:58:31 ity of [facility] 2021-06-02 Outpatient P [facility] [id number] Univers 00:14:42 ity of [facility] 2021-06-01 Outpatient P [facility] [id number] Univers 22:21:09 ity of [facility] 2021-06-01 Outpatient [facility] [id number] Univers 20:51:29 ity of [facility] 2021-06-01 Emergency [facility] [id number] Univers 20:49:21 ity of [facility] 2021-06-01 [facility] [id number] Univers 15:53:16 ity of [facility] 2021-06-01 Outpatient P [facility] [id number] Univers 15:31:42 ity of [facility] 2021-06-01 Outpatient P [facility] DENISE [id number] Univers 12:20:05 ity of [facility] 2021-06-01 Emergency [facility] [id number] Univers 04:48:52 ity of [facility] 2021-06-01 Outpatient P [facility] DENISE [id number] Univers 01:06:52 ity of [facility] 2021-06-01 Outpatient [facility] [id number] Univers 00:36:46 ity of [facility] 2021-05-31 Emergency [facility] [id number] Univers 23:01:42 ity of [facility] 2021-05-31 Emergency [facility] [id number] Univers 16:03:19 ity of [facility] 2021-05-31 Emergency [facility] [id number] Univers 00:16:05 ity of [facility] 2022-07-09 2022-07-09 Outpatient R ELEANOR SEXTON [facility] [id number] Univers 15:30:00 15:30:00 ELEANOR SEXTON ity [facility] 2022-05-16 2022-05-16 Outpatient R MANISH [facility] [id number] Univers 09:30:00 09:30:00 RAUL ity [facility] 2022-05-08 2022-05-08 Patient Eleanor Sexton [facility] [id number] Univers 00:00:00 00:00:00 Secure Msg PRIMARY 350.1.13.10 ity of [place] 4.2.[place].2.[place] [id number] [address] 2022-05-05 2022-05-05 Telephone CarlieEleanor soto [facility] 1.2.248.663 [id number] Univers 00:00:00 00:00:00 HEALTH 350.1.13.10 it y of [place] 4.2.7.2.686 [place] NORRIS?BLEA [id number] [address] MEDICAL OFFICE BUILDING 2022-04-25 2022-04-25 Outpatient R MANISH [facility] [id number] Univers 16:00:00 16:00:00 RAUL ity [facility] 2022-04-21 2022-04-21 Outpatient Rosalva HAMMOND [facility] [id number] Univers 09:30:00 09:30:00 RAUL ity [facility] 2022-04-15 2022-04-15 Emergency [facility] ERT [id number] Univers 12:12:00 15:19:00 AMALIA cole [facility] 2022-04-15 2022-04-15 [facility] [place] 1.2.840.114 [id number] Univers 12:12:00 15:19:00 [facility] 350.1.13.10 i ty of [place].2.7.2.[place] [id number] [facility] [address] 2022-04-12 2022-04-12 Shelton [facility] 1.2.840.114 [id number] Univers 00:00:00 00:00:00 [facility] 350.1.13.10 ity [facility] 4.2.7.2.686 [place] NORRIS?BLEA [id number] [address] MEDICAL OFFICE BUILDING 2022-04-11 2022-04-11 Outpatient Rosalva HAMMOND [facility] [id number] Univers 09:00:00 09:00:00 RAUL cole [facility] 2022-04-11 2022-04-11 Outpatient Rosalva HAMMOND [facility] [id number] Univers 09:00:00 09:00:00 RAUL cole [facility] 2022-04-10 2022-04-10 Eleanor Gonzalez [facility] 1.2.840.114 [id number] Univers 00:00:00 00:00:00 PRIMARY 350.1.13.10 it y of [facility] 4.2.7.2.686 [place] [facility] [id number] [facility] [address] 2022-04-09 2022-04-09 Outpatient ELEANOR BADILLO [facility] [id number] Univers 09:00:00 09:00:00 ELEANOR SEXTON [facility] 2022-04-092022-04-09 Outpatient R ELEANOR SEXTON [facility] [id number] Univers 09:00:00 09:00:00 ELEANOR SEXTON [facility] 2022-04-09 2022-04-09 Outpatient R ELEANOR SEXTON [facility] [id number] Univers 09:00:00 09:00:00 ELEANOR SEXTON [facility] 2022-04-09 2022-04-09 Outpatient R CARLIE [facility] [id number] Univers 09:00:00 09:00:00 ELEANOR SEXTON [facility] 2022-04-08 2022-04-08 Patient Carlie [facility] 1.2.840.114 [id number] Univers 00:00:00 00:00:00 Secure Msg PRIMARY 350.1.13.10 it[place] of [place] [id number] [address] 2022-04-08 2022-04-08 Orders Doctor VIDYA 1.2.840.114 [id number] Univers 00:00:00 00:00:00 Only Unassigned, MARIA ELENA 350.1.13.10 ity of [place] [facility] 4.2.7.2.686 [place] as [phone] [address] 2022-03-24 2022-03-24 Telephone Eleanor Sexton [facility] 1.2.362.175 [id number] Univers 00:00:00 00:00:00 HEALTH 350.1.13.10 it y of [place] 4.2.7.2.686 [place] NORRIS?BLEA [phone] [address] MEDICAL OFFICE BUILDING 2022-03-24 2022-03-24 Orders Doctor VIDYA 1.2.840.114 [id number] Univers 00:00:00 00:00:00 Only Unassigned, MARIA ELENA 350.1.13.10 ity of [place] [facility] 4.2.7.2.686 [place] as [id number] [address] 2022-03-21 2022-03-21 Telephone Eleanor Sexton [facility] 1.2.669.870 [id number] Univers 00:00:00 00:00:00 PRIMARY 350.1.13.10 it y of C[place] 4.2.[place].2.[place]ORIA[place] [id number] [address] 2022-03-20 2022-03-20 Patient Doctor [facility] 1.2.840.114 [id number] Univers 00:00:00 00:00:00 Secure Msg Unassigned, HEALTH 350.1.13.10 ity of [place] 4.2.7.2.686 [place] NORRIS?BLEA [id number] [address] OFFICE [facility] 2022-03-19 2022-03-19 Outpatient R MOHINDER, [facility] [id number] Univers 13:00:00 13:00:00 MARITZA ity [facility] 2022-03-18 2022-03-18 [facility] 1.2.649.526 [id number] Univers 00:00:00 00:00:00 [facility] 350.1.13.10 ity of [place] 4.2.7.2.686 [place] as NORRIS?BLEA [id number] [address] OFFICE [facility] 2022-03-18 2022-03-18 Patient Doctor [facility] 1.2.840.114 [id number] Univers 00:00:00 00:00:00 Secure Msg Unassigned, HEALTH 350.1.13.10 ity of [place] 4.2.7.2.686 [place] as NORRIS?BLEA [id number] [address] OFFICE [facility] 2022-03-17 2022-03-17 Outpatient R KLE, [facility] [id number] Univers 08:40:00 09:07:30 JACQUI ity [facility] 2022-03-17 2022-03-17 [facility] 1.2.840.114 [id number] Univers 08:40:00 09:07:30 Visit [facility] 350.1.13.10 ity of [place] 4.2.7.2.686 [place] NORRIS?BLEA [id number] [address] OFFICE [facility] 2022-03-13 2022-03-13 Outpatient R ELLACarrillo [facility] [id number] Univers 19:40:00 20:20:46 TIEN cole [facility] 2022-03-13 2022-03-13 Urgent Bill Patiño [facility] 1.2.840.114 [id number] Univers 19:40:00 20:20:46 Care Ebarcarrillo, Tien HEALTH 350.1.13.10 ity of [place] 4.2.7.2.686 [place] as NORRIS?BLEA [phone] [facility] [address] MEDICAL OFFICE [facility] 2022-03-13 2022-03-13 Outpatient R CARLITSO [facility] [id number] Univers 19:40:00 20:20:46 TIEN [facility] 2022-03-12 2022-03-12 Outpatient [facility] [id number] Univers 13:00:00 13:00:00 MARITZA [facility] 2022-03-06 2022-03-06 Outpatient [facility] [id number] Univers 13:00:00 13:00:00 MARITZA [facility] 2022-02-28 2022-02-28 Telephone Manish [facility] 1.2.283.296 [id number] Univers 00:00:00 00:00:00 Raul HEALTH 350.1.13.10 it y of [place] 4.2.7.2.686 [place] NORRIS?BLEA [phone] [address] MEDICAL OFFICE [facility] 2022-02-27 2022-02-27 Telephone Lore DASILVA 1.2.089.795 [id number] Univers 00:00:00 00:00:00 MARIA ELENA Mccurdy 350.1.13.10 ity of [facility] 4.2.7.2.686 [place] as [phone] [address] 2022-02-27 2022-02-27 Patient Eleanor Sexton [facility] 1.2.840.114 [id number] Univers 00:00:00 00:00:00 Secure Msg PRIMARY 350.1.13.10 ity of [place]2.[place] [id number] [facility] [address] 2022-02-26 2022-02-26 Laboratory Only, Ang Db Test [facility] 1.2.8 40.114 [id number] Univers 13:30:00 13:45:00 Only Manda Cedeño HEALTH 350.1.13.10 ity of [place] 4.2.7.2.686 [place] NORRIS?BLEA [phone] [facility] [address] MEDICAL OFFICE [facility] 2022-02-26 2022-02-26 Outpatient R DAVIDSON [facility] [id number] Univers 13:30:00 13:30:00 MANDA cole [facility] 2022-02-23 2022-02-23 Telephone Eleanor Sexton [facility] 1.2.178.465 [id number] Univers 00:00:00 00:00:00 HEALTH 350.1.13.10 it y [facility] 4.2.7.2.686 [place] NORRIS?BLEA [id number] [address] OFFICE [facility] 2022-02-19 2022-02-19 Telephone Connor Moona Carrillo VIDYA 1.2.840.114 [id number] Univers 00:00:00 00:00:00 MARIA ELENA 350.1.13.10 it y of [facility] 4.2.7.2.686 [place] as [id number] [address] 2022-02-18 2022-02-18 Laboratory Only, Ang Db Test [facility] 1.2.8 40.114 [id number] Univers 19:30:00 19:45:00 Only Dustin Nichols HEALTH 350.1.13.10 ity [facility] 4.2.7.2.686 [place] NORRIS?BLEA [id number] [address] OFFICE [facility] 2022-02-18 2022-02-18 Outpatient R SIMONE [facility] [id number] Univers 19:30:00 19:30:00 DUSTIN granger [facility] 2022-02-18 2022-02-18 Outpatient R SIMONE [facility] [id number] Univers 19:30:00 19:30:00 DUSTIN harmon f [facility] 2022-02-17 2022-02-17 Ancillary Abraham Marcos [facility] 1.2.840. 114 [id number] Univers 09:15:00 10:15:00 Visit Marcella Casey 350.1.13.10 ity of [place] 4.2.7.2.686 [place] NATHEN [phone] Nc dical NAL 179 [facility] 2022-02-17 2022-02-17 Outpatient [facility] [id number] Univers 09:15:00 09:15:00 MARECLLA ity [facility] 2022-02-17 2022-02-17 Orders Doctor VIDYA 1.2.840.114 [id number] Univers 00:00:00 00:00:00 Only Unassigned, MARIA ELENA 350.1.13.10 ity of [place] [facility] 4.2.7.2.686 [place] as [id number] [address] 2022-02-14 2022-02-14 Outpatient [facility] [id number] Univers 19:40:00 19:40:00 RANIA ity [facility] 2022-02-07 2022-02-07 Outpatient R [facility] [id number] Univers 13:32:04 23:59:00 KATIE ity [facility] 2022-02-07 2022-02-07 [facility] [id number] Univers 13:32:04 23:59:00 KATIE ity [facility] 2022-02-07 2022-02-07 [facility] 1.2.840.114 [id number] Univers 13:32:04 23:59:00 Encounter Katie PRIMARY 350.1.13.10 ity of [place] [id number] Nc dical [address] 2022-02-07 2022-02-07 Office [facility] 1.2.089.366 [id number] Univers 13:20:00 14:22:34 Visit Katie PRIMARY 350.1.13.10 it y of [place] [id number] Nc luisana [address] 2022-02-07 2022-02-07 Outpatient R FAY [facility] [id number] Univers 13:20:00 14:22:34 KATIE [facility] 2022-02-05 2022-02-05 Office Carlie [facility] 1.2.840.114 [id number] Univers 14:30:00 16:45:20 Visit HEALTH 350.1.13.10 it y of [place] 4.2.7.2.686 [place] NORRIS?BLEA [id number] Nc luisana [facility] [address] MEDICAL OFFICE BUILDING 2022-02-05 2022-02-05 Outpatient R CARLIE [facility] [id number] Univers 14:30:00 16:45:20 CARLIE, WEBSTER [facility] 2022-02-05 2022-02-05 Outpatient R CARLIE [facility] [id number] Univers 14:30:00 14:30:00 CARLIEELEANOR Soto [facility] 2022-01-29 2022-01-29 Case [facility] 1.2.840.114 [id number] Univers 00:00:00 00:00:00 Management Sonal AVENDAÑO 350.1.13.10 ity of PEDIATRIC 4.2.7.2.[address] [facility] [phone] [address] 2022-01-29 2022-01-29 Case [facility] 1.2.840.114 [id number] Univers 00:00:00 00:00:00 Management Sonal KATERYNA 350.1.13.10 it[place] [facility] [id number] [address] 2022-01-27 2022-01-27 Emergency [facility] [id number] Univers 17:09:00 18:50:00 RADHA [facility] 2022-01-27 2022-01-27 Emergency [facility] 1.2.840.114 [id number] Univers 17:09:00 18:50:00 Radha MURCIA 350.1.13.10 ity of [facility] 4.2.7.2.686 [facility] [id number] [facility] [address] 2022-01-27 2022-01-27 Emergency X BRADY, [facility] ERT [id number] Univers 17:09:00 18:50:00 RADHA itshira [facility] 2022-01-27 2022-01-27 Outpatient R SONAL CHAO [facility] B [id number] Univers 14:00:00 15:19:34 SONAL CHAO [facility] 2022-01-27 2022-01-27 Office [facility] 1.2.840.114 [id number] Univers 14:00:00 15:19:34 Visit Sonal AVENDAÑO 350.1.13.10 it y of WOMEN'S 4.2.7.2.686 [facility] [id number] [facility] [address] 2022-01-16 2022-01-16 [facility] 1.2.840.114 [id number] Univers 00:00:00 00:00:00 Miller A HEALTH 350.1.13.10 ity of SPECIALTY 4.2.7.2.686 [facility]ly [facility] [phone] [facility] [address] 2022-01-14 2022-01-14 Outpatient R ERIS [facility] [id number] Univers 14:45:00 14:45:00 OSVALDO ity o f [facility] 2022-01-14 2022-01-14 Telephone [facility] 1.2.056.652 [id number] Univers 00:00:00 00:00:00 Latrice MURCIA 350.1.13.10 ity of [facility] 4.2.7.2.686 [facility] [phone] Nc dical NAL [address] BUILDING 2022-01-08 2022-01-08 Outpatient R MALIA [facility] [id number] Univers 09:00:00 09:00:00 PAMELA ity o [facility] 2022-01-08 2022-01-08 Outpatient R MALIA [facility] [id number] Univers 09:00:00 09:00:00 PAMELA granger [facility] 2022-01-08 2022-01-08 Outpatient R MALIA [facility] [id number] Univers 09:00:00 09:00:00 PAMELA granger [facility] 2022-01-01 2022-01-01 Outpatient R ELEANOR SEXTON [facility] [id number] Univers 08:30:00 08:30:00 ELEANOR SEXTON [facility] 2021-12-23 2021-12-23 Materials Research Engineer Lab, Ang - Db [facility] 1.2.840.1 14 [id number] Univers 12:00:00 12:15:00 Visit Venus Hammondthia [facility] 350.1.13.10 ity of [place] 4.2.7.2.686 [place] as NORRIS?BLEA [id number] [address] MEDICAL OFFICE [facility] 2021-12-23 2021-12-23 Outpatient R MANISH [facility] [id number] Univers 11:30:00 12:02:04 RAUL cole [facility] 2021-12-23 2021-12-23 Office [facility] 1.2.840.114 [id number] Univers 11:30:00 12:02:04 Visit [facility] 350.1.13.10 it y of [place] 4.2.7.2.686 [place] as NORRIS?BLEA [id number] [address] MEDICAL OFFICE BUILDING 2021-12-23 2021-12-23 Outpatient R MANISH [facility] [id number] Univers 11:30:00 12:02:04 RAUL cole [facility] 2021-12-19 2021-12-19 Outpatient R MALIA [facility] [id number] Univers 09:00:00 10:06:45 PAMELA granger [facility] 2021-12-19 2021-12-19 Office [facility] 1.2.840.114 [id number] Univers 09:00:00 10:06:45 Visit Pamela Blackwell BEER MERCHANT 350.1.13.10 ity of [facility] 4.2.7.2.686 [place] as MATERNAL [id number] Med ical & CHILD [address] [place] [address] 2021-12-18 2021-12-18 Outpatient Rosalva EDUARDO [facility] [id number] Univers 11:00:00 11:00:00 SENDGIOVANNY itshira [facility] 2021-12-05 2021-12-05 Outpatient Rosalva LEE [facility] [id number] Univers 15:00:00 15:00:00 JUNITO [facility] 2021-12-05 2021-12-05 Outpatient Rosalva LEE [facility] [id number] Univers 15:00:00 15:00:00 JUNITO [facility] 2021-12-04 2021-12-04 Outpatient COREY QUINTEROS [facility] [id number] Univers 00:00:00 00:00:00 COREY DURAN [facility] 2021-12-04 2021-12-04 Refill [facility] 1.2.840.114 [id number] Univers 00:00:00 00:00:00 [facility] 350.1.13.10 it y of [place] 4.2.7.2.686 [place] as NORRIS?BLEA [id number] [address] 2021-12-02 2021-12-02 Telephone [facility] 1.2.910.618 [id number] Univers 00:00:00 00:00:00 [facility] 350.1.13.10 it y of [place] 4.2.7.2.686 [place] as NORRIS?BLEA [id number] [address] 2021-11-30 2021-11-30 Patient Doctor VIDYA 1.2.840.114 [id number] Univers 00:00:00 00:00:00 Secure Msg Unassigned, MARIA ELENA 350.1.13.10 ity of [place] [facility] 4.2.7.2.686 [place] as [id number] [address] 2021-11-28 2021-11-28 Office [facility] 1.2.840.114 [id number] Univers 08:30:00 08:45:00 Visit [facility] 350.1.13.10 it y of [place] 4.2.7.2.686 [place] as NORRIS?BLEA [id number] Nc dical ALPHONSE 198 [facility] OFFICE [facility] 2021-11-28 2021-11-28 Outpatient R SÁNCHEZ [facility] [id number] Univers 08:30:00 08:30:00 [facility] 2021-11-28 2021-11-28 Outpatient [facility] [id number] Univers 08:30:00 08:30:00 [facility] 2021-11-28 2021-11-28 Telephone [facility] 1.2.502.498 [id number] Univers 00:00:00 00:00:00 [facility] 350.1.13.10 it y of [place] 4.2.7.2.686 [place] as NORRIS?BLEA [phone] Nc dickailey CUNHA 198 [facility] OFFICE [facility] 2021-11-25 2021-11-25 Outpatient R COREY DURAN [facility] [id number] Univers 15:40:00 16:20:31 COREY DURAN [facility] 2021-11-25 2021-11-25 Office [facility] 1.2.840.114 [id number] Univers 15:40:00 16:20:31 Visit [facility] 350.1.13.10 ity of [place] 4.2.7.2.686 [place] as NORRIS?BLEA [phone] Nc dickailey CUNHA 092 [facility] OFFICE [facility] 2021-11-25 2021-11-25 Outpatient COREY QUINTEROS [facility] [id number] Univers 15:40:00 15:40:00 COREY DURAN [facility] 2021-11-25 2021-11-25 Outpatient R ELEANOR SEXTON [facility] [id number] Univers 10:00:00 11:17:41 ELEANOR SEXTON [facility] 2021-11-25 2021-11-25 Office Eleanor Sexton [facility] 1.2.840.114 [id number] Univers 10:00:00 11:17:41 Visit HEALTH 350.1.13.10 it y of [place] 4.2.7.2.686 [place] as NORRIS?BLEA [id number] Nc alannahkailey CUNHA 220 [facility] OFFICE [facility] 2021-11-22 2021-11-22 Outpatient Rosalva EDUARDO [facility] [id number] Univers 15:12:16 23:59:00 SENDIL [facility] 2021-11-22 2021-11-22 Outpatient R ALESHA [facility] [id number] Univers 00:00:00 00:00:00 [facility] 2021-11-21 2021-11-21 Materials Research Engineer Lab, Ang - [facility] 1.2.840.1 14 [id number] Univers 16:00:00 16:22:57 Visit [facility] 350.1.13.10 ity of [place] 4.2.7.2.686 [place] as NORRIS?BLEA [id number] Nc alannahkailey CUNHA 353 [facility] OFFICE [facility] 2021-11-21 2021-11-21 Outpatient Rosalva POZO [facility] [id number] Univers 16:00:00 16:00:00 [facility] 2021-11-21 2021-11-21 Office [facility] 1.2.840.114 [id number] Univers 15:30:00 16:00:00 Visit [facility] 350.1.13.10 it y of [place] 4.2.7.2.686 [place] as NORRIS?BLEA [phone] Nc alannahkailey MELVINERIC 198 [facility] OFFICE [facility] 2021-11-21 2021-11-21 Outpatient Rosalva POZO [facility] [id number] Univers 15:30:00 15:47:08 [facility] 2021-11-21 2021-11-21 Outpatient Rosalva POZO [facility] [id number] Univers 15:30:00 15:47:08 [facility] 2021-11-21 2021-11-21 Telephone [facility] 1.2.683.102 [id number] Univers 00:00:00 00:00:00 Latrice MURCIA 350.1.13.10 ity of [place].2.686 [place] [phone] Nc dical NAL 059 [facility] 2021-11-21 2021-11-21 Transition MACI Miller 1.2.840.114 [id number] Univers 00:00:00 00:00:00 of Care Kiley BARROW 350.1.13.10 i ty of [place].2.7.2.686 [place] [phone] [facility] [address] 2021-11-21 2021-11-21 Telephone [facility] 1.2.153.337 [id number] Univers 00:00:00 00:00:00 Latrice MURCIA 350.1.13.10 ity of [facility] 4.2.[place].2.[place] [id number] Nc dical NAL 9 [facility] 2021-11-18 2021-11-20 Inpatient X [facility] AMALIA [id number] Univers 21:35:00 15:25:00 [facility] ity [facility] 2021-11-18 2021-11-20 [facility] 1.2.840. [id number] Univers 21:35:00 15:25:00 Encounter Abraham Chaidez 350.1.13.10 ity of [facility] [place] [id number] [facility] [address] [place] 2021-11-18 2021-11-20 Inpatient X [facility] [id number] Univers 21:35:00 15:25:00 [facility] ity [facility] 2021-11-14 2021-11-14 [facility] 1.2.840.114 [id number] Univers 17:59:51 23:59:00 Encounter [facility] [id number] [facility] 4.2.7.2.686 [place] NORRIS?BLEA [phone] Me dical ALPHONSE [address] MEDICAL OFFICE [facility] 2021-11-14 2021-11-14 Outpatient Rosalva MANCUSO [facility] [id number] Univers 17:40:00 18:41:58 RANIA ity [facility] 2021-11-14 2021-11-14 [place], Bill [facility] 1.2.840.114 [id number] Univers 17:40:00 18:41:58 Care Tien Mancuso HEALTH 350.1.13.10 ity of [place] 4.2.7.2.686 [place] NORRIS?BLEA [phone] Me alannahkailey CUNHA 370 [facility] OFFICE [facility] 2021-11-11 2021-11-11 Outpatient R ALESHA [facility] [id number] Univers 00:00:00 00:00:00 SENDIL ity [facility] 2021-11-11 2021-11-11 Patient Doctor VIDYA [id number] [id number] Univers 00:00:00 00:00:00 Secure Msg Unassigned, MARIA ELENA 350.1.13.10 ity of [place] [facility] 4.2.7.2.686 [place] [phone] [address] 2021-11-08 2021-11-08 Outpatient Rosalva EDUARDO [facility] [id number] Univers 16:00:00 23:59:00 SENDIL ity [facility] 2021-11-08 2021-11-08 Outpatient Rosalva EDUARDO [facility] [id number] Univers 16:00:00 23:59:00 SENDIL ity [facility] 2021-11-06 2021-11-06 [facility]phone [facility] [id number] Univers 00:00:00 00:00:00 Maritza A HEALTH 350.1.13.10 i ty of [place] 4.2.7.2.686 [place] NORRIS?BLEA [phone] Me dickailey CUNHA 044 [facility] OFFICE [facility] 2021-11-04 2021-11-04 Outpatient Rosalva EDUARDO [facility] [id number] Univers 10:00:00 11:00:33 SENDIL ity [facility] 2021-11-04 2021-11-04 [facility] [id number] Univers 10:00:00 11:00:33 SENDIL ity [facility] 2021-11-04 2021-11-04 [facility] 1.2.840.114 [id number] Univers 10:00:00 11:00:33 Visit Latrice MURCIA 350.1.13.10 ity of [place] [place] 4[place] [facility] [phone] [place] dical NAL [address] [facility] 2021-11-01 2021-11-01 Outpatient [facility] [id number] Univers 15:28:39 23:59:00 MARITZA ity [facility] 2021-11-01 2021-11-01 [facility] 1.2.840.114 [id number] Univers 15:28:39 23:59:00 Encounter Maritza MURCIA 350.1.13.10 ity of [place].2.7.2.[place] [phone] [facility] [address] 2021-11-01 2021-11-01 [facility] 1.2.840.114 [id number] Univers 15:28:26 23:59:00 Encounter Maritza MURCIA 350.1.13.10 it[place] of [place].2.[place] [phone] [facility] [address] 2021-11-01 2021-11-01 Outpatient R MANISH [facility] [id number] Univers 15:00:00 15:15:12 RAUL ity [facility] 2021-11-01 2021-11-01 Materials Research Engineer Lab, Ang - Steve [facility] 1.2.840.1 14 [id number] Univers 15:00:00 15:15:00 Visit Raul Hammond 350.1.13.10 ity of [place] 4.2.7.2.686 [place] NORRIS?BLEA [phone] N[place] dical KNEY [address] MEDICAL OFFICE BUILDING 2021-11-01 2021-11-01 Outpatient Rosalva HAMMOND [facility] [id number] Univers 15:00:00 15:00:00 RAUL cole [facility] 2021-11-01 2021-11-01 Office Mohinder [facility] 1.2.840.114 [id number] Univers 14:00:00 14:30:00 Visit Maritza Tinajero HEALTH 350.1.13.10 i ty of [place] 4.2.7.2.686 [place]RIS?BLEA [phone] N[place] dical [facility] [address] MEDICAL OFFICE BUILDING 2021-11-01 2021-11-01 Orders Doctor VIDYA 1.2.840.114 [id number] Univers 00:00:00 00:00:00 Only Unassigned, MARIA ELENA 350.1.13.10 ity of [place] [facility] 4.2.7.2.686 [place] as [phone] [address] 2021-10-31 2021-10-31 Outpatient Rosalva [facility]D [facility] [id number] Univers 08:00:00 08:00:00 RAULGUS cole [facility] 2021-10-31 2021-10-31 Outpatient Rosalva HAMMOND [facility] [id number] Univers 08:00:00 08:00:00 RAUL ity [facility] 2021-10-29 2021-10-29 Outpatient Rosalva HAMMOND [facility] [id number] Univers 16:00:00 16:00:00 RAUL edelshira [facility] 2021-10-25 2021-10-25 Outpatient Rosalva HERNANDEZ [facility] [id number] Univers 14:15:00 14:51:16 DARIAIR cole [facility] 2021-10-25 2021-10-25 [facility] 1.2.840.114 [id number] Univers 14:15:00 14:51:16 Visit [employer] HEALTH 350.1.13.10 it y of [place] 4[place]2.[place].2.[place] C[place] [id number] [address] 2021-10-21 2021-10-21 Outpatient COREY QUINTEROS [facility] [id number] Univers 11:30:00 11:30:00 COREY DURAN [facility] 2021-10-21 2021-10-21 Outpatient R COREY DURAN [facility] [id number] Univers 11:30:00 11:30:00 COREY DURAN [facility] 2021-09-24 2021-09-24 Outpatient R [facility] [id number] Univers 11:00:00 11:00:00 [facility] 2021-09-24 2021-09-24 Outpatient R [facility] [id number] Univers 11:00:00 11:00:00 [facility] 2021-09-24 2021-09-24 Outpatient R JUANA [facility] [id number] Univers 11:00:00 11:00:00 SENIA [facility] 2021-09-19 2021-09-19 Outpatient R [facility] [id number] Univers 10:00:00 10:00:00 [facility] 2021-09-18 2021-09-18 Outpatient R SILVIABABAKMAEVE Parham [facility] [id number] Univers 14:00:00 14:41:25 SILVIABABAKMAEVE Parham [facility] 2021-09-18 2021-09-18 Office [facility] 1.2.840.114 [id number] Univers 14:00:00 14:41:25 Visit [facility] 350.1.13.10 it y of [place] 4.2.7.2.686 [facility] [phone] [address] 2021-09-18 2021-09-18 Outpatient R SILVIABABAKRADHA ParhamUKA [facility] [id number] Univers 14:00:00 14:00:00 TIANARADHAMAEVE [facility] 2021-09-16 2021-09-17 Emergency X COLBY [facility] ERT [id number] Univers 23:55:00 02:44:00 JANE [facility] 2021-09-16 2021-09-17 Emergency Colby [facility] 1.2.208.078 [id number] Univers 23:55:00 02:44:00 Jane MURCIA 350.1.13.10 ity of [place] 4.2.7.2.[place] [phone] [facility] [address] 2021-09-16 2021-09-17 Emergency X COLBY, [facility] ERT [id number] Univers 23:55:00 02:44:00 JANE cole [facility] 2021-09-16 2021-09-16 Outpatient [facility] [id number] Univers 15:30:00 15:30:00 RAUL edelshira [facility] 2021-09-16 2021-09-16 Orders Doctor VIDYA 1.2.840.114 [id number] Univers 00:00:00 00:00:00 Only Unassigned, MARIA ELENA 350.1.13.10 ity of [place] [facility] 4.2.7.2.686 [place] [phone] [facility] [address] 2021-09-10 2021-09-10 Telephone Manish [facility] 1.2.773.605 [id number] Univers 00:00:00 00:00:00 Raul CQuotient 350.1.13.10 it y [facility] 4.2.7.2.686 [place] NORRIS?BLEA [phone] Nc alannahkailey [facility] [address] MEDICAL OFFICE [facility] 2021-09-05 2021-09-05 Materials Research Engineer Lab, Ang - [facility] 1.2.840.1 14 [id number] Univers 14:30:00 14:45:00 Visit Raul Hammond 350.1.13.10 ity of [place] 4.2.7.2.686 [place] NORRIS?BLEA [phone] Nc alannahkailey [facility] [address] MEDICAL OFFICE [facility] 2021-09-05 2021-09-05 Outpatient Rosalva [facility] [id number] Univers 14:30:00 14:30:00 RAUL cole [facility] 2021-09-05 2021-09-05 Outpatient Rosalva HAMMOND [facility] [id number] Univers 13:30:00 14:23:24 RAUL cole [facility] 2021-09-05 2021-09-05 Office [facility] 1.2.840.114 [id number] Univers 13:30:00 14:23:24 Visit Raul HEALTH 350.1.13.10 it y of [place] 4.2.7.2.686 [place]RIS?BLEA [phone] [address] OFFICE [facility] 2021-09-05 2021-09-05 Office [facility] 1.2.840.114 [id number] Univers 13:30:00 14:23:24 Visit Raul HEALTH 350.1.13.10 it y of [place] 4.2.7.2.686 [place] NORRIS?BLEA [phone] [address] OFFICE [facility] 2021-09-05 2021-09-05 Outpatient [facility] [id number] Univers 13:30:00 14:23:24 RAULGUS cole [facility] 2021-09-05 2021-09-05 Telephone Mohinder KSMATT 1.2.037.859 [id number] Univers 00:00:00 00:00:00 Maritza A HEALTH 350.1.13.10 i ty of [facility] 4.2.7.2.686 [place] NORRIS?BLEA [phone] [address] OFFICE [facility] 2021-09-03 2021-09-03 Outpatient Rosalva HAMMOND [facility] [id number] Univers 16:00:00 16:00:00 RAUL cole [facility] 2021-09-02 2021-09-02 Outpatient R MOHINDER [facility] [id number] Univers 10:00:00 10:00:00 MARITZA itshira [facility] 2021-09-02 2021-09-02 Outpatient Rosalva VINES [facility] [id number] Univers 10:00:00 10:00:00 MARITZA cole [facility] 2021-08-29 2021-08-29 Telephone VIDYA Bautista 1.2.940.141 [id number] Univers 00:00:00 00:00:00 Villa ARREDONDO 350.1.13.10 ity of [facility] 4.2.7.2.686 [place] as [phone] [address] 2021-08-28 2021-08-28 Laboratory Only, Ang Db Test [facility] 1.2.8 40.114 [id number] Univers 18:00:00 18:15:00 Only Dustin Nichols [facility] 350.1.13.10 ity of [place] 4.2.7.2.686 [place]RIS?BLEA [phone] [address] MEDICAL OFFICE [facility] 2021-08-28 2021-08-28 Outpatient [facility] [id number] Univers 18:00:00 18:00:00 DUSTIN ity o f [facility] 2021-08-22 2021-08-22 Laboratory Only, Ang Db Test [facility] 1.2.8 40.114 [id number] Univers 20:00:00 20:15:00 Only HaroonIra [facility] 350.1.13.10 ity of [place] 4.2.7.2.686 [place]RIS?BLEA [id number] [address] MEDICAL OFFICE [facility] 2021-08-22 2021-08-22 Outpatient R HAROON [facility] [id number] Univers 20:00:00 20:00:00 BILL ity [facility] 2021-08-21 2021-08-21 Outpatient R CAROLINE [facility] [id number] Univers 12:00:00 12:00:00 ROMINA itshira o [facility] 2021-08-21 2021-08-21 Letter Nurse, [facility] 1.2.840.114 [id number] Univers 00:00:00 00:00:00 (Out) Urgent Care HEALTH 350.1.13.10 ity of [place] 4.2.7.2.686 [place]RIS?BLEA [phone] [address] MEDICAL OFFICE [facility] 2021-08-15 2021-08-15 Outpatient R LUIS [facility] [id number] Univers 11:30:00 11:30:00 CHILVANA ity o f [facility] 2021-08-13 2021-08-13 Outpatient R COREY DURAN [facility] [id number] Univers 08:00:00 08:00:00 COREY DURAN [facility] 2021-08-11 2021-08-11 Outpatient R JC [facility] [id number] Univers 16:00:00 16:31:43 ARTURO [facility] 2021-08-11 2021-08-11 Laboratory Only, Ang Db Test [facility] 1.2.8 40.114 [id number] Univers 16:00:00 16:15:00 Only Unknown, Attending HEALTH 350.1.13.10 ity of [place] 4.2.7.2.686 [place]IS?BLEA [phone] Nc luisana CUNHA [address] MEDICAL OFFICE [facility] 2021-08-09 2021-08-09 Outpatient R COREY DURAN [facility] [id number] Univers 10:00:00 10:00:00 COREY DURAN [facility] 2021-08-05 2021-08-05 Emergency X YAEUGENIALA, [facility] ERT [id number] Univers 15:05:00 16:44:00 DEKASSI [facility] 2021-08-05 2021-08-05 Emergency [facility] 1.2.617.743 [id number] Univers 15:05:00 16:44:00 Faviola [facility] 350.1.13.10 ity of [place].2.7.2.686 [place] [id number] [facility] [address] 2021-08-01 2021-08-01 Office [facility] 1.2.840.114 [id number] Univers 09:30:00 10:47:41 Visit [facility] 350.1.13.10 it y of [place] 4.2.7.2.686 [place]RIS?BLEA [phone] Nc luisana [facility] [address] MEDICAL OFFICE [facility] 2021-08-01 2021-08-01 Outpatient R MANISH [facility] [id number] Univers 09:30:00 10:47:41 [facility] 2021-08-01 2021-08-01 Office [facility] 1.2.840.114 [id number] Univers 09:30:00 10:47:41 Visit Raul CQuotient 350.1.13.10 it y of [place] 4.2.7.2.686 [place] NORRIS?BLEA [phone] Nc luisana [address] MEDICAL OFFICE BUILDING 2021-08-01 2021-08-01 Outpatient [facility] [id number] Univers 09:30:00 10:47:41 RAUL cole [facility] 2021-08-01 2021-08-01 Outpatient R [facility] [id number] Univers 09:30:00 09:30:00 RAUL shira [facility] 2021-07-18 2021-07-18 Outpatient [facility] [id number] Univers 14:00:00 14:35:49 JOSIE cole [facility] 2021-07-18 2021-07-18 Office Salmeron, [facility] 1.2.840.114 [id number] Univers 14:00:00 14:35:49 Visit Josie CQuotient 350.1.13.10 i ty of [place] 4.2.7.2.[address] [facility], [place] [phone] [address] 2021-07-17 2021-07-17 Outpatient Rosalva FINLEY [facility] [id number] Univers 09:00:00 09:00:00 JUSTINA kelsey o [facility] 2021-07-17 2021-07-17 Outpatient Rosalva FINLEY [facility] [id number] Univers 09:00:00 09:00:00 ROSALINANDA ity o f [facility] 2021-07-12 2021-07-13 Emergency X [facility] ERT [id number] Univers 19:10:00 01:46:00 [facility] 2021-07-12 2021-07-13 [facility] [id number] Univers 19:10:00 01:46:00 [facility] 2021-07-12 2021-07-13 [facility] 1.2.525.762 [id number] Univers 19:10:00 01:46:00 Faviola Judge [place] 350.1.13.10 ity of [place] 4.2.7.2.686 [place] [phone] [facility] [address] 2021-07-12 2021-07-12 Outpatient R DAVIDSON [facility] [id number] Univers 11:45:00 11:54:39 MANDA ity [facility] 2021-07-12 2021-07-12 Nurse Nurse, [facility] 1.2.840.114 [id number] Univers 11:34:17 11:54:39 Visit Manda Cedeño [facility] 350.1.13.10 ity of [place] 4.2.7.2.686 [place] NORRIS?BLEA [phone] [facility] [address] MEDICAL OFFICE BUILDING 2021-07-12 2021-07-12 Orders Doctor VIDYA 1.2.840.114 [id number] Univers 00:00:00 00:00:00 Only Unassigned, MARIA ELENA 350.1.13.10 ity of [facility] 4.2.7.2.686 [place] [phone] [facility] [address] 2021-06-14 2021-06-14 Materials Research Engineer Lab, [facility] 1.2.840.1 14 [id number] Univers 09:57:31 10:12:31 Visit Corey Duran [facility] 350.1.13. 10 ity of [place] 4.2.7.2.686 [place] NORRIS?BLEA [phone] [facility] [address] MEDICAL OFFICE BUILDING 2021-06-14 2021-06-14 Outpatient COREY QUINTEROS [facility] [id number] Univers 09:20:00 09:58:01 COREY DURAN shira [facility] 2021-06-14 2021-06-14 Outpatient COREY QUINTEROS [facility] [id number] Univers 09:20:00 09:58:01 COREY DURAN shira [facility] 2021-06-14 2021-06-14 Office Shyam [facility] 1.2.840.114 [id number] Univers 09:17:10 09:58:01 Visit Corey Romo [facility] 350.1.13.10 ity of [place] 4.2.7.2.686 [place] as NORRIS?BLEA [phone] Nc luisana CUNHA [address] MEDICAL OFFICE [facility] 2021-06-14 2021-06-14 Outpatient R COREY DURAN [facility] [id number] Univers 09:20:00 09:20:00 COREY DURAN [facility] 2021-06-06 2021-06-06 Outpatient R LELO, [facility] [id number] Univers 13:40:00 13:40:00 ENEDINA granger [facility] 2021-06-06 2021-06-06 Outpatient Rosalva LIND, [facility] [id number] Univers 13:40:00 13:40:00 ENEDINA harmon [facility] 2021-06-04 2021-06-04 Materials Research Engineer Lab, [facility] 1.2.840.1 14 [id number] Univers 16:23:28 16:38:28 Visit Maritza Vines [facility] 350.1.13.10 ity of [facility] 4.2.7.2.686 [place] NORRIS?BLEA [phone] Nc luisana CUNHA [address] [facility] OFFICE [facility] 2021-06-04 2021-06-04 Outpatient R MANISH [facility] [id number] Univers 16:00:00 16:23:14 RAUL cole [facility] 2021-06-04 2021-06-04 Outpatient [facility] [id number] Univers 16:00:00 16:23:14 RAUL itshira [facility] 2021-06-04 2021-06-04 Office [facility] 1.2.840.114 [id number] Univers 15:49:27 16:23:14 Visit Raul CQuotient 350.1.13.10 it y of [place] 4.2.7.2.686 [place] as NORRIS?BLEA [phone] Nc luisana CUNHA [address] [facility] OFFICE [facility] 2021-06-03 2021-06-03 Telephone [facility] 1.2.877.712 [id number] Univers 00:00:00 00:00:00 Maritza Tinajero [facility] 350.1.13.10 i ty of [place] 4.2.7.2.686 [place] as NORRIS?BLEA [phone] Nc luisana CUNHA [address] [place] [address] MEDICAL OFFICE BUILDING 2021-06-02 2021-06-02 Emergency X [facility] ERT [id number] Univers 13:06:00 18:42:00 ASHOK itshira [facility] 2021-06-02 2021-06-02 Emergency [facility] 1.2.020.161 [id number] Univers 13:06:00 18:42:00 Ashok MURCIA 350.1.13.10 ity [facility] 4.2.7.2.[address] [facility] [phone] [address] 2021-06-02 2021-06-02 Emergency X [facility] ERT [id number] Univers 13:06:00 18:42:00 ASHOK [facility] 2021-06-02 2021-06-02 Orders Doctor DASILVA 1.2.840.114 [id number] Univers 00:00:00 00:00:00 Only Unassigned, MARIA ELENA 350.1.13.10 ity of [place] [facility] 4.2.7.2.686 [place] as [phone] [facility] [address] 2021-05-30 2021-05-30 Outpatient R INESSA [facility] [id number] Univers 11:15:00 11:15:00 WONDIFUL ity o f [facility] 2021-05-30 2021-05-30 Outpatient R MOHINDER [facility] [id number] Univers 10:30:00 10:30:00 [facility] 2021-05-30 2021-05-30 Outpatient R MOHINDER [facility] [id number] Univers 10:30:00 10:30:00 [facility] 2021-05-14 2021-05-14 Outpatient R [facility] [id number] Univers 14:00:00 14:00:00 ity [facility] 2021-05-14 2021-05-14 Outpatient [facility] [id number] Univers 13:00:00 13:00:00 PAMELA ity o [facility] 2021-05-09 2021-05-09 Outpatient [facility] [id number] Univers 14:20:00 14:20:00 ENEDINA hollingsworthy o f [facility] 2021-05-07 2021-05-07 Office [facility] 1.2.840.114 [id number] Univers 09:54:24 10:24:24 Visit [facility] 350.1.13.10 ity of Specialty 4.2.7.2.686 [place] - [phone] [facility] [address] 2021-05-07 2021-05-07 Outpatient [facility] [id number] Univers 09:30:00 09:30:00 SANDEEP hollingsworthy o [facility] 2021-05-07 2021-05-07 Telephone [facility] 1.2.624.652 [id number] Univers 00:00:00 00:00:00 [facility] 350.1.13.10 ity of Specialty 4.2.7.2.686 [place] - [phone] [facility] [address] 2021-05-06 2021-05-06 Materials Research Engineer Zhang, Adc Lab Main [facility] 1.2.8 40.114 [id number] Univers 17:03:55 17:18:55 Visit Rah Sandeep Tinajero [place] 350.1.13.10 ity of [place] 4.2.7.2.686 Aria judge Professio [phone] Nc dical [facility] [address] [facility] 2021-05-06 2021-05-06 Outpatient [facility] [id number] Univers 10:00:00 10:00:00 MARITZA cole [facility] 2021-04-30 2021-04-30 Materials Research Engineer Zhang, Adc Lab Main [facility] 1.2.8 40.114 [id number] Univers 11:47:03 12:02:03 Visit Mohinder, Maritza A [place] 350.1.13.10 ity of [place] 4.2.7.2.686 [place] Profess[place] [phone] [facility] [address] Building 2021-04-30 2021-04-30 Outpatient [facility] [id number] Univers 11:30:00 11:30:00 MARITZA ity [facility] 2021-04-30 2021-04-30 Telephone [facility] 1.2.092.706 [id number] Univers 00:00:00 00:00:00 [facility] 350.1.13.10 ity of [place] 4.2.7.2.686 [place] [phone] [facility] [address] Office Building 2021-04-17 2021-04-17 Office [facility] 1.2.840.114 [id number] Univers 12:36:07 13:51:10 Visit Maritza [facility] 350.1.13.10 i ty of [place] 4.2.7.2.686 [place] as Norris?Blea [phone] [facility] 044 [facility] Office Building 2021-04-17 2021-04-17 Outpatient [facility] [id number] Univers 12:30:00 12:30:00 MARITZA ity [facility] 2021-04-17 2021-04-17 Orders Doctor DASILVA 1.2.840.114 [id number] Univers 00:00:00 00:00:00 Only Unassigned, MARIA ELENA 350.1.13.10 ity of [place] [facility] 4.2.7.2.686 [place] as [phone] [address] 2021-04-17 2021-04-17 Telephone [facility] 1.2.017.993 [id number] Univers 00:00:00 00:00:00 Maritza A Health 350.1.13.10 i ty of [place] 4.2.7.2.686 [place] as Norris?Blea [phone] [facility] 044 [facility] Office Building 2021-04-17 2021-04-17 Orders Doctor DASILVA 1.2.840.114 [id number] Univers 00:00:00 00:00:00 Only Unassigned, MARIA ELENA 350.1.13.10 ity of [place] [facility] 4.2.7.2.686 [place] [phone] [facility] [address] 2021-03-21 2021-03-21 Telephone YASMIN ResendezIT 1.2.840.11 [id number] Univers 00:00:00 00:00:00 Radha Robles HEALTH 350.1.13.10 i ty of [place] [phone] [facility] [address] 2021-03-15 2021-03-15 Emergency Faviola Ortiz [facility] 1.2.840 .114 [id number] Univers 00:58:00 18:31:00 [place] 350.1.13.10 ity [place] [phone] [facility] [address] 2021-03-07 2021-03-07 Office Pgy2 UNIVERSIT [id number] [id number] Univers 15:22:23 15:37:23 Visit Lyssa Monreald Tanvi HEALTH 350.1.13.10 [place]y [place] [phone] [facility] [address] 2021-03-07 2021-03-07 Outpatient R [facility] [id number] Univers 15:15:00 15:15:00 ity of [facility] 2021-03-06 2021-03-06 [facility] [id number] Univers 10:30:00 10:30:00 MARITZA ity of [facility] 2021-03-05 2021-03-05 Emergency Claudia Carranza [facility] 1.2.840.114 [id number] Univers 00:44:00 05:15:00 Joanna Murcia 350.1.13.10 i ty [place] [phone] [facility] [address] 2021-03-05 2021-03-05 Orders Doctor DASILVA 1.2.840.114 [id number] Univers 00:00:00 00:00:00 Only Unassigned, MARIA ELENA 350.1.13.10 ity of [place] [facility] 4.2.7.2.686 [place] [phone] [facility] [address] [place] 2021-02-28 2021-02-28 Office Malia [facility] 1.2.840.114 [id number] Univers 10:36:17 11:42:08 Visit Pamela Blackwell [employer] 350.1.13.10 ity of [facility] 4.2.7.2.686 [place] MATERNAL [phone] [facility] ical & CHILD [address] [place] [address] 2021-02-28 2021-02-28 Outpatient [facility] [id number] Univers 10:45:00 10:45:00 PAMELA cole o f [facility] 2021-02-22 2021-02-22 Outpatient R [facility] [facility] [id number] Univers 13:00:00 13:00:00 MARITZA cole [facility] 2021-02-22 2021-02-22 Telephone [facility] 1.2.472.507 [id number] Univers 00:00:00 00:00:00 Maritza Tinajero [facility] 350.1.13.[address] [facility] 4.2.7.2.686 [place] as Professio [phone] [facility] [address] [place] Office [facility] One 2021-02-21 2021-02-21 Emergency [facility] 1.2.840.114 [id number] Univers 14:23:00 16:09:00 Radha Murcia 350.1.13.10 ity [facility] [place].2.7.2.[place] [phone] [facility] [address] [place] 2021-02-21 2021-02-21 Telephone [facility] 1.2.840.114 [id number] Univers 00:00:00 00:00:00 Osvaldo Chisholm [employer] 350.1.13.10 ity of [facility] 4.2.7.2.686 [place] as MATERNAL [phone] [facility] ical & CHILD [address] [place] [address] 2021-02-19 2021-02-19 Office [facility] 1.2.023.214 [id number] Univers 13:50:26 14:20:33 Visit Osvaldo Chisholm [employer] 350.1.13.10 ity [facility] 4.2.7.2.686 [place] MATERNAL [phone] Med ical & CHILD [address] [place] [address] 2021-02-19 2021-02-19 [facility] [id number] Univers 14:00:00 14:00:00 OSVALDO ity o f [facility] 2021-02-18 2021-02-18 Telephone [facility] 1.2.091.265 [id number] Univers 00:00:00 00:00:00 Maritza Tinajero Health 350.1.13.10 i ty of [place] 4.2.7.2.686 [place] Professio [phone] [address] Office [facility] One 2021-02-11 2021-02-11 Urgent Provider, [facility] 1.2.840.114 [id number] Univers 16:48:53 18:10:35 Care Graham Melara 350.1.13.10 ity of [place] 4.2.7.2.686 [place] as Professio [phone] [address] One 2021-02-11 2021-02-11 Outpatient R [facility] [id number] Univers 17:00:00 17:00:00 ity of [facility] 2021-02-07 2021-02-07 Outpatient [facility] [id number] Univers 08:15:00 08:15:00 WONDIFUL ity o f [facility] 2021-02-06 2021-02-06 Outpatient R [facility] [id number] Univers 13:30:00 13:30:00 ity of [facility] 2021-02-06 2021-02-06 Orders Doctor DASILVA 1.2.840.114 [id number] Univers 00:00:00 00:00:00 Only Unassigned, MARIA ELENA 350.1.13.10 ity of [place] [facility] 4.2.7.2.686 [place] as [phone] [address] 2021-01-29 2021-01-29 Outpatient [facility] [id number] Univers 14:30:00 14:30:00 JUAN [facility] 2021-01-28 2021-01-28 Outpatient [facility] [id number] Univers 10:30:00 10:30:00 JOSIE [facility] 2021-01-25 2021-01-25 Outpatient R [facility] [id number] Univers 11:30:00 11:30:00 ELEAZAR [facility] 2021-01-25 2021-01-25 Telephone [facility] 1.2.599.895 [id number] Univers 00:00:00 00:00:00 [facility] 350.1.13.10 i ty of [place] 4.2.7.2.686 [place] as Professio [phone] [address] Office [facility] 2021-01-22 2021-01-22 Materials Research Engineer Lab, Adc Fam Pob I [facility] 1.2. 840.114 [id number] Univers 14:45:57 15:05:57 Visit [facility] 350.1.13.10 ity of [place] 4.2.7.2.686 [place] as Professio [phone] [address] 2021-01-22 2021-01-22 [facility] 1.2.840.114 [id number] Univers 13:54:55 14:46:13 Visit [facility] 350.1.13.10 i ty of [place] 4.2.7.2.686 [place] Professio [phone] [address] Office [facility] 2021-01-22 2021-01-22 Outpatient [facility] [id number] Univers 14:00:00 14:00:00 DUSTIN cole o f [facility] 2021-01-20 2021-01-20 Emergency [facility] 1..729.048 [id number] Univers 01:27:00 04:30:00 Faviola Murcia 350.1.13.10 ity of [place] 4.2.7.2.686 [facility] [phone] [address] 2021-01-18 2021-01-18 Outpatient R SAI [facility] [id number] Univers 10:30:00 10:30:00 ELEAZAR cole [facility] 2021-01-10 2021-01-10 Outpatient R ERIS, [facility] [id number] Univers 13:15:00 13:15:00 OSVALDO ity o [facility] 2021-01-02 2021-01-02 Outpatient [facility] [id number] Univers 08:00:00 08:00:00 OSVALDO ity o [facility] 2020-11-14 2020-11-14 Office [facility] 1.2.559.375 [id number] 13:09:00 14:20:05 Visit Osvaldo Kathrine [employer] 350.1.13.10 REGIONAL 4.2.7.2.686 MATERNAL [phone] & CHILD [address] [place] [address] 2020-11-14 2020-11-14 Office [facility] 1.2.016.062 [id number] Univers 13:09:00 14:20:05 Visit Osvaldo C [employer] 350.1.13.10 ity of REGIONAL 4.2.7.2.686 [place] MATERNAL [phone] Med ical & CHILD [address] [place] [address] 2020-11-14 2020-11-14 Outpatient R ERIS, [facility] [id number] Univers 13:15:00 13:15:00 OSVALDO ity o [facility] 2020-11-11 2020-11-12 Emergency [facility] 1.2.178.563 [id number] Univers 20:34:00 00:26:00 Faviola Murcia 350.1.13.10 ity of [place] 4.2.7.2.686 [facility] [phone] [address] 2020-11-10 2020-11-10 Outpatient [facility] [id number] Univers 13:55:00 13:55:00 ity of [facility] 2020-11-04 2020-11-04 Emergency [facility] 1.2.202.046 [id number] Univers 18:01:00 20:04:00 Jemima Judge [place] 350.1.13.10 i ty of [place] 4.2.7.2.686 [place] [phone] [facility] [address] [place] 2020-10-30 2020-10-30 1.2.840.1 1.2.840.114 [id number] Univers 00:00:00 00:00:00 Encounter 24610.1.1 350.1.13.10 ity of 3.104.2.7 [place].2.696 [place]2.637888 [address] [place] 2020-10-29 2020-10-29 Telephone [facility] 1.2.203.661 [id number] Univers 00:00:00 00:00:00 Wentong [place] 350.1.13.10 i ty of [place] 4.2.7.2.686 [place] Profess[place] [phone] N[place] dical nal [address] [place] [address] 2020-10-29 2020-10-29 Telephone [facility] 1.2.199.704 [id number] [id number] Univers 00:00:00 00:00:00 Wentong [place] 350.1.13.10 i ty of [place] 4.2.7.2.686 [place] Profess[place] [phone] N[place] dical nal [address] [place] [address] 2020-10-26 2020-10-26 Outpatient Rosalva HERNANDEZ [facility] [id number] Univers 15:00:00 15:00:00 HUMAIR ity of [facility] 2020-10-25 2020-10-25 Telephone [facility] 1.2.884.577 [id number] Univers 00:00:00 00:00:00 Wentong [place] 350.1.13.10 i ty of [place] 4.2.7.2.686 [place] Profess[place] [phone] N[place] dical nal 220 [facility] 2020-10-24 2020-10-24 Routine Akinsi, [facility] 1.2.151.100 [id number] Univers 15:58:25 16:30:47 Osvaldo Chisholm [employer]CHANT 350.1.13.10 ity of Visit [facility] 4.2.7.2.686 [place] as MATERNAL [phone] Med ical & CHILD 107 [facility] 2020-10-24 2020-10-24 Office [facility] 1.2.840.114 [id number] Univers 08:32:21 09:34:52 Visit [facility] 350.1.13.10 i ty of [place] 4.2.7.2.686 [place] Profess[place] [phone] [place] dical nal 220 [facility] 2020-10-24 2020-10-24 Outpatient [facility] [id number] Univers 08:30:00 08:30:00 [facility] ity [facility] 2020-10-20 2020-10-20 Outpatient [facility] [id number] Univers 13:45:00 13:45:00 ity of [facility] 2020-10-19 2020-10-19 Telephone [facility] 1.2.764.663 [id number] Univers 00:00:00 00:00:00 [facility] Kelan 350.1.13.10 it y of [place] 4.2.7.2.686 [place] as Professio [phone] Nc dical nal 044 [facility] One 2020-10-18 2020-10-18 Hospital [facility] 1.2.840.114 [id number] Univers 20:14:02 23:59:00 Encounter Anna Murcia 350.1.13.10 ity of [place] 4.2.7.2.686 [place] [phone] [facility] [address] [place] [address] 2020-10-18 2020-10-18 Urgent Provider, [facility] 1.2.840.114 [id number] Univers 18:26:47 19:49:55 Care Romina Velazquez Fortino 350.1.13.10 ity of [place] 4.2.7.2.686 [place] as Professio [phone] N[place] dical nal [address] One 2020-10-18 2020-10-18 Outpatient R CAROLINE [facility] [id number] Univers 18:40:00 18:40:00 ROMINA cole o f [facility] 2020-10-13 2020-10-13 Nurse VIDYA Barrios 1.2.840.114 [id number] Univers 00:00:00 00:00:00 Triage Yesenia ARREDONDO 350.1.13.10 it y of [facility] 4.2.7.2.686 [place] as [phone] [address] 2020-10-11 2020-10-11 Nurse Visit, Dione Nurse [facility] 1.2 .0.114 [id number] Univers 10:20:05 10:38:28 Visit Osvaldo Schulte [employer] 350.1.13. 10 ity of [facility] 4.2.7.2.686 [place] as MATERNAL [phone] [facility] ical & CHILD [address] [place] [address] 2020-10-11 2020-10-11 Outpatient R ERIS [facility] [id number] Univers 10:30:00 10:30:00 OSVALDO cole eden granger [facility] 2020-10-11 2020-10-11 1.2.840.1 1.2.840.114 [id number] Univers 00:00:00 00:00:00 Encounter 58312.1.1 350.1.13.10 ity of 3.104.2.7 [place].696 [place] .2.246974 570 [facility] 2020-10-08 2020-10-08 1.2.840.1 1.2.840.114 [id number] Univers 00:00:00 00:00:00 Encounter 05646.1.1 350.1.13.10 ity of 3.104.2.7 4.[place].2.696 [place] .2.486905 570 [facility] 2020-10-01 2020-10-01 Telemedici Faculty, Harvey [facility] 1.2.840.114 [id number] Univers 09:23:14 14:54:50 ne Visit Basia Carreon [employer] 350.1.13.10 ity of [facility] 4.2.7.2.686 [place] as MATERNAL [phone] [facility] ical & CHILD 107 [facility] 2020-09-27 2020-09-27 [facility] Vidya Dean [facility] 1.2.840.114 [id number] Univers 14:29:00 22:45:00 Encounter [facility] 350.1.13.10 ity [facility] 4.2.7.2.686 [place] [phone] [address] 2020-09-27 2020-09-27 Outpatient P VIDYA DEAN [facility] DENISE [id number] Univers 14:29:00 22:45:00 ity of [facility] 2020-09-27 2020-09-27 Outpatient R [facility] [id number] Univers 13:00:00 13:00:00 ity of [facility] 2020-09-27 2020-09-27 Telemedici Fellow, Christiano [facility] 1 .2.840.114 [id number] Univers 07:53:52 08:08:52 ne Visit Basia Carreon [employer] 350.1.13.10 ity of [facility] 4.2.7.2.686 [place] as MATERNAL [phone] [facility] ical & CHILD [address] 2020-09-24 2020-09-24 Routine Faculty, Harvey [facility] 1.2 .840.114 [id number] Univers 14:32:43 15:03:55 Aaron Li [employer]CHANT 350.1.13.10 ity of Visit [facility] 4.2.7.2.686 [place] as MATERNAL [phone] [facility] ical & CHILD 107 [facility] 2020-09-24 2020-09-24 Outpatient R [facility] [id number] Univers 14:30:00 14:30:00 ity [facility] 2020-09-19 2020-09-22 [facility] VIDYA Sethi 1.2.238.738 [id number] Univers 20:30:00 10:35:00 Encounter [facility] MARIA ELENA 350.1.13.10 ity [facility] 4.2.7.2.686 [place] as [phone] [address] 2020-09-20 2020-09-20 Outpatient R [facility] [id number] Univers 15:00:00 15:00:00 [facility] 2020-09-13 2020-09-13 Routine Risk, Snv-Ygkta-Jq/High [facility] 1. 2.840.114 [id number] Univers 14:30:12 15:31:05 Tania Vazquez [employer]CHANT 350.1.13.10 ity of Visit [facility] 4.2.7.2.686 [place] as MATERNAL [phone] Med ical & CHILD [address] [place] [address] 2020-09-13 2020-09-13 Outpatient [facility] [id number] Univers 14:30:00 14:30:00 TANIA [facility] 2020-09-11 2020-09-11 Outpatient P AARON LI [facility] [id number] Univers 13:30:00 13:30:00 AARON LI [facility] 2020-09-02 2020-09-09 [facility] 1.2.840.114 [id number] Univers 23:37:00 14:30:00 Encounter Camron MARIA ELENA 350.1.13.10 ity of [facility] 4.2.7.2.686 [place] as [phone] [address] 2020-09-09 2020-09-09 Letter YASMIN PearsonIT 1.2.840.114 [id number] Univers 00:00:00 00:00:00 (Out) Marta Granados [facility] 350.1.13.[address] [facility] 4.2.7.2.686 [place] [phone] [address] 2020-09-06 2020-09-06 Outpatient P FARHAN [facility] [id number] Univers 13:00:00 13:00:00 NICHOLE [facility] 2020-09-022020-09-02 Emergency Emerson, [facility] 1.2.309.474 [id number] Univers 12:27:00 15:04:00 Jemima Judge [place] 350.1.13.10 i ty of [place] 4.2.7.2.686 [place] [phone] [facility] [address] 2020-09-02 2020-09-02 Orders Doctor VIDYA 1.2.840.114 [id number] Univers 00:00:00 00:00:00 Only Unassigned, MARIA ELENA 350.1.13.10 ity of [place] [facility] 4.2.7.2.686 Scot as [phone] [facility] [address] 2020-08-30 2020-08-30 Outpatient R [facility] [id number] Univers 15:30:00 15:30:00 ity [facility] 2020-08-28 2020-08-28 Telephone ANEL Munoz 1.2.840.114 [id number] Univers 00:00:00 00:00:00 [facility] 350.1.13.[address] [facility] 4.2.7.2.686 [place] [phone] [facility] [address] 2020-08-28 2020-08-28 Telephone Eris [facility] 1.2.840.114 [id number] Univers 00:00:00 00:00:00 Osvaldo Chisholm [employer] 350.1.13.10 ity of REGIONAL 4.2.7.2.686 [place] as MATERNAL [phone] Med ical & CHILD [address] [place] [address] 2020-08-23 2020-08-23 Routine Risk, Fsg-Yufxt-Gk/High [facility] 1. 2.840.114 [id number] Univers 15:25:42 16:19:39 Tania Vazquez BE[employer] MERCHANT 350.1.13.10 ity of Visit REGIONAL 4.2.7.2.686 [place] as MATERNAL [id number] Med ical & CHILD [address] [place] [address] 2020-08-23 2020-08-23 Outpatient R [facility] [id number] Univers 11:00:00 11:00:00 ity [facility] 2020-08-16 2020-08-16 Routine Risk, Yzv-Xipky-Mk/High [facility] 1. 2.840.114 [id number] Univers 13:22:11 13:37:11 MenardCrystal ybarra [employer]CHANT 350.1.13.10 ity of Visit [facility] 4.2.7.2.686 [place] as MATERNAL [id number] [facility] ical & CHILD [address] [place] [address] 2020-08-16 2020-08-16 Outpatient R [facility] [id number] Univers 13:30:00 13:30:00 ity of [facility] 2020-08-16 2020-08-16 Orders Doctor VIDYA 1.2.840.114 [id number] Univers 00:00:00 00:00:00 Only Unassigned, MARIA ELENA 350.1.13.10 ity of [place] [facility] 4.2.7.2.686 Scot as [phone] [facility] [address] [place] 2020-08-09 2020-08-11 Hospital VIDYA Real 1.2.840.114 [id number] Univers 18:41:00 13:02:00 Encounter Nichole ARREDONDO 350.1.13.10 ity of [facility] 4.2.7.2.686 [place] as [phone] [facility] [address] [place] 2020-08-09 2020-08-09 Routine Risk, Acc-Phdtj-Wx/High [facility] 1. 2.840.114 [id number] Univers 13:21:37 14:25:58 Tania Vazquez [employer] 350.1.13.10 ity of Visit [facility] 4.2.7.2.686 [place] as MATERNAL [phone] [facility], Incl & CHILD [address] [place] [address] 2020-08-09 2020-08-09 Outpatient R [facility] [id number] Univers 14:00:00 14:00:00 ity of [facility] 2020-08-09 2020-08-09 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, Jaqueline [facility] 1.2 .840.114 [id number] Univers 12:52:13 13:21:14 Visit Nichole Real [employer] 350.1.13.10 ity of [facility] 4.2.7.2.686 [place] as MATERNAL [phone] Med ical & CHILD 369 [facility] 2020-08-09 2020-08-09 Orders Doctor VIDYA 1.2.840.114 [id number] Univers 00:00:00 00:00:00 Only Unassigned, MARIA ELENA 350.1.13.10 ity of [place] [facility] 4.2.7.2.686 [place] as [phone] [facility] [address] [place] 2020-08-08 2020-08-08 [facility] 1.2.840.114 [id number] Univers 16:18:00 20:20:00 Encounter Adelaida Murcia 350.1.13.10 ity of [place] 4.2.7.2.686 [place] [facility] [phone] [facility] [address] [place] 2020-08-08 2020-08-08 Orders Doctor VIDYA 1.2.840.114 [id number] Univers 00:00:00 00:00:00 Only Unassigned, MARIA ELENA 350.1.13.10 ity of [place] [facility] 4.2.7.2.686 [place] as [phone] [address] 2020-07-31 2020-07-31 Routine [facility] 1.2.112.880 [id number] Univers 14:33:59 15:07:48 Osvaldo Chisholm [employer] 350.1.13.10 ity of Visit REGIONAL 4.2.7.2.686 [place] as MATERNAL [phone] [facility] ical & CHILD 107 [facility] 2020-07-31 2020-07-31 Outpatient R [facility] [id number] Univers 14:30:00 14:30:00 OSVALDO cole o f [facility] 2020-07-23 2020-07-23 Outpatient R [facility] [id number] Univers 10:00:00 10:00:00 ity of [facility] 2020-07-22 2020-07-22 Emergency [facility] 1.2.840. 114 [id number] Univers 15:14:00 17:33:00 Vidya Dean 350.1.13.10 ity of [place] 4.2.7.2.686 [place] [facility] [phone] [facility] [address] [place] 2020-07-22 2020-07-22 Outpatient P DEAN IVDYA [facility] DENISE [id number] Univers 15:14:00 15:14:00 ity of [facility] 2020-07-16 2020-07-16 Routine Akinsijosue, [facility] 1.2.033.233 [id number] Univers 10:49:31 11:34:46 Osvaldo Chisholm [employer] 350.1.13.10 ity of Visit [facility] 4.2.7.2.686 [place] as MATERNAL [phone] Med ical & CHILD [address] [place] [address] 2020-07-16 2020-07-16 Routine Faculty, Harvey [facility] 1. .840.114 [id number] Univers 10:03:55 10:49:16 Aaron Li [employer] 350.1.13.10 ity of Visit [facility] 4.2.7.2.686 [place] as MATERNAL [phone] Med ical & CHILD [address] [place] [address] 2020-07-16 2020-07-16 Outpatient R [facility] [id number] Univers 09:00:00 09:00:00 ity of [facility] 2020-07-16 2020-07-16 Orders Doctor VIDYA 1..840.114 [id number] Univers 00:00:00 00:00:00 Only Unassigned, MARIA ELENA 350.1.13.10 ity of [place] [facility] 4.2.7.2.686 [place] as [phone] [facility] [address] [place] 2020-07-12 2020-07-12 Outpatient P ABIMBOLA GILL [facility] [id number] Univers 10:30:00 10:30:00 ity of [facility] 2020-07-11 2020-07-11 Outpatient R RAH [facility] [id number] Univers 13:30:00 13:30:00 SANDEEP ity o f [facility] 2020-07-09 2020-07-09 Telemedici Faculty, Harvey [facility] 1..840.114 [id number] Univers 08:08:55 16:43:54 ne Visit Aaron Li [employer] 350.1.13.10 ity of REGIONAL 4.2.7.2.686 [place] as MATERNAL [phone] [facility], Incl & CHILD [address] [place] [address] 2020-07-09 2020-07-09 Outpatient R SONI AARON [facility] [id number] Univers 15:30:00 15:30:00 AARON LI ity [facility] 2020-07-09 2020-07-09 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, [facility] 1.2 .840.114 [id number] Univers 13:00:00 14:06:35 Visit Aaron Li [employer] 350.1.13.10 ity of REGIONAL 4.2.7.2.686 [place] as MATERNAL [phone] [facility] ical & CHILD 369 [facility] 2020-07-02 2020-07-02 Outpatient R [facility] [id number] Univers 09:45:00 09:45:00 ity [facility] 2020-07-02 2020-07-02 Telemedici Faculty, Harvey [facility] 1.2.840.114 [id number] Univers 08:27:24 08:57:24 ne Visit Dio Abbott [employer] 350.1 .13.10 ity of [facility] 4.2.7.2.686 [place] as MATERNAL [phone] [facility] & CHILD [address] [place] [address] 2020-06-27 2020-06-27 Office Mary [facility] 1.2.840.114 [id number] Univers 10:04:07 11:12:04 Visit [facility] 350.1.13.10 it y of [place] 4[place]2.7.2.686 [place] C[place] [phone] [address] 2020-06-27 2020-06-27 Outpatient R MARY [facility] [id number] Univers 10:00:00 10:00:00 HUMAIR ity [facility] 2020-06-26 2020-06-26 Telephone Eris [facility] 1.2.840.114 [id number] Univers 00:00:00 00:00:00 Osvaldo Chisholm [employer] 350.1.13.10 ity of REGIONAL 4.2.7.2.686 [place] as MATERNAL [phone] [facility] & [address] 2020-06-25 2020-06-25 Routine Faculty, Harvey Capellan [facility] 1.2 .840.114 [id number] Univers 09:02:18 09:43:31 AlexandrstephBasia [employer] 350.1.13.10 ity of Visit [facility] 4.2.7.2.686 [place] as MATERNAL [id number] [address] 2020-06-25 2020-06-25 Outpatient R [facility] [id number] Univers 09:15:00 09:15:00 ity [facility] 2020-06-22 2020-06-22 Telephone [facility] 1.2.840.114 [id number] Univers 00:00:00 00:00:00 Osvaldo Chisholm [employer] 350.1.13.10 ity of [facility] 4.2.7.2.686 [place] as MATERNAL [id number] [address] 2020-06-20 2020-06-20 [facility] [id number] Univers 10:30:00 10:30:00 OSVALDO granger [facility] 2020-06-19 2020-06-19 Telephone KhanANEL 1.2.840.114 [id number] Univers 00:00:00 00:00:00 [facility] 350.1.13.10 i ty of CLINICS 4[place]7.2.[place] [id number] [address] 2020-06-18 2020-06-18 Outpatient R [facility] [id number] Univers 10:30:00 10:30:00 ity of [facility] 2020-06-18 2020-06-18 Telemedici Faculty, Harvey Capellan [facility] 1.2.840.114 [id number] Univers 09:51:46 10:21:46 ne Visit Leslye LeeDio cazares [employer] 350.1 .13.10 ity of REGIONAL 4.2.7.2.686 [place] as MATERNAL [id number] [facility], Incl & CHILD [address] [place] [address] 2020-06-13 2020-06-13 Emergency , [facility] [id number] [id number] Univers 13:56:00 15:42:00 Sameer Murcia 350.1.13.10 i ty of [place] 4.2.7.2.686 [facility] [id number] [facility] [address] 2020-06-11 2020-06-11 Routine Faculty, Harvey [facility] 1.2 .840.114 [id number] Univers 09:37:31 10:48:32 Carla Alegre [employer] 350.1.13.10 ity of Visit [facility] 4.2.7.2.686 [place] as MATERNAL [phone] [facility] & CHILD [address] [place] [address] 2020-06-11 2020-06-11 Outpatient R [facility] [id number] Univers 09:00:00 09:00:00 ity of [facility] 2020-06-11 2020-06-11 Orders Doctor VIDYA 1.2.840.114 [id number] Univers 00:00:00 00:00:00 Only Unassigned, MARIA ELENA 350.1.13.10 ity of [place] [facility] 4.2.7.2.686 [place] [phone] [facility] [address] [place] 2020-06-04 2020-06-05 Telemedici Faculty, Harvey Rodriguezconchita [facility] 1.2.840.114 [id number] Univers 08:18:00 14:22:03 ne Visit Dio Abbott BEER MERCHANT 350.1 .13.10 ity of Osvaldo Schulte [facility] 4.2.7.2.68 6 [place] MATERNAL [phone] [facility] & CHILD [address] [place] [address] 2020-06-04 2020-06-04 Outpatient R LESLYE [facility] [id number] Univers 14:15:00 14:15:00 CAMRON it y of S, [place] [facility] 2020-05-24 2020-05-28 Hospital VIDYA Li 1.2.840.114 [id number] Univers 19:22:00 14:36:00 Encounter Aaron M MARIA ELENA 350.1.13.10 ity of [facility] 4.2.7.2.686 [place] [phone] [facility] 019 [place] 2020-05-28 2020-05-28 Outpatient R [facility] [id number] Univers 13:00:00 13:00:00 ity [facility] 2020-05-24 2020-05-24 Routine Risk, Ngj-Qhqvq-Gs/High [facility] 1. 2.840.114 [id number] Univers 14:23:40 16:18:10 Tania Vazquez BEER MERCHANT 350.1.13.10 ity of Visit REGIONAL 4.2.7.2.686 [place] MATERNAL [phone] Med ical & CHILD [address] [place] [address] 2020-05-24 2020-05-24 Outpatient R [facility] [id number] Univers 14:30:00 14:30:00 ity [facility] 2020-05-21 2020-05-21 Outpatient R ABIMBOLA GILL [facility] [id number] Univers 10:15:00 10:15:00 ity of [facility] 2020-05-17 2020-05-17 Routine Risk, Zaj-Zbaoy-Rk/High [facility] 1. 2.840.114 [id number] Univers 14:42:13 15:09:43 Osvaldo Schulte BEER MERCHANT 350.1.13 .10 ity of Visit REGIONAL 4.2.7.2.686 [place] MATERNAL [phone] [facility] & CHILD [address] [place] [address] 2020-05-17 2020-05-17 Outpatient R [facility] [id number] Univers 15:00:00 15:00:00 ity [facility] 2020-05-17 2020-05-17 Outpatient R ERIS [facility] [id number] Univers 15:00:00 15:00:00 OSVALDO cole o f [facility] 2020-05-16 2020-05-16 Emergency [facility] [id number] Univers 17:21:00 19:33:00 Sameer Murcia 350.1.13.10 i ty of [place]7.2.[place] [phone] [facility] [address] [place] 2020-05-16 2020-05-16 Telephone [facility] 1.2.840.114 [id number] Univers 00:00:00 00:00:00 Osvaldo C BEER MERCHANT 350.1.13.10 ity of REGIONAL 4.2.7.2.686 [place] MATERNAL [phone] [facility] & [facility]ILD 107 [facility] 2020-05-10 2020-05-10 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 1.2 .840.114 [id number] Univers 15:41:17 16:11:17 Visit Thompson Sethi BEER MERCHANT 350.1.13.1 0 ity of REGIONAL 4.2.7.2.686 [place] MATERNAL [phone] [facility] & CHILD 369 [facility] 2020-05-10 2020-05-10 Outpatient P [facility] [id number] Univers 15:15:00 15:15:00 ity of [facility] 2020-05-08 2020-05-08 Case Darian Coley UNIVERSIT 1.2.840.114 [id number] Univers 00:00:00 00:00:00 Management Gabriele HEALTH 350.1.13.10 ity of CLINICS [place] [phone] [facility] 104 [place] 2020-05-07 2020-05-07 Outpatient R [facility] [id number] Univers 10:00:00 10:00:00 ity of [facility] 2020-05-07 2020-05-07 Telemedici Faculty, Harvey Capellan [facility] 1.2.840.114 [id number] Univers 08:42:41 09:12:41 ne Visit Aaron Li BEER MERCHANT 350.1.13.10 ity of REGIONAL 4.2.7.2.686 [place] MATERNAL [phone] [facility], [facility] & CHILD [address] [place] [address] 2020-05-07 2020-05-07 Telephone [facility] 1.2.840.114 [id number] Univers 00:00:00 00:00:00 Osvaldo Chisholm BEER MERCHANT 350.1.13.10 ity of REGIONAL 4.2.7.2.686 [place] MATERNAL [phone] [facility], [facility] & CHILD [address] [place] [address] 2020-04-20 2020-04-20 Telephone [facility] 1.2.840.114 [id number] Univers 00:00:00 00:00:00 Osvaldo Chisholm BEER MERCHANT 350.1.13.10 ity of [facility] 4.2.7.2.686 [place] MATERNAL [phone] [facility] & CHILD [address] [place] [address] 2020-04-16 2020-04-16 Initial [facility] 1.2.847.555 [id number] Univers 12:54:24 14:25:19 Osvaldo Chisholm BEER MERCHANT 350.1.13.10 ity of Visit [facility] 4.2.7.2.686 [place] MATERNAL [phone] [facility] & [address] 2020-04-16 2020-04-16 Outpatient R [facility] [id number] Univers 12:30:00 12:30:00 OSVALDO cole o f [facility] 2020-04-16 2020-04-16 Orders Doctor VIDYA 1.2.840.114 [id number] Univers 00:00:00 00:00:00 Only Unassigned, MARIA ELENA 350.1.13.10 ity of [facility] 4.2.7.2.686 [place] [phone] [facility] [address] [place] 2020-04-06 2020-04-06 Emergency [facility] [id number] [id number] Univers 15:01:00 16:55:00 Marilee Murcia 350.1.13.10 ity of [place] [phone] [facility] [address] [place] 2020-01-10 2020-01-10 Emergency X EROS, [facility] ERT [id number] Univers 17:11:44 22:23:00 JAYY ity of [facility] 2019-03-25 2019-03-25 [facility] 1.2.996.129 [id number] Univers 07:56:38 11:39:00 Faviola Murcia 350.1.13.10 ity of [place] 4.2.7.2.686 [facility] [phone] [place] [id number] [place] 2018-07-13 2018-07-13 Emergency X STEVEN [facility] ERT [id number] Univers 09:57:43 13:30:00 EDDIE edelshira [facility] Results Test Description Test Time Test Comments Results Result Comments Source US PELVIC 2018-03-16 CLINICAL (TRANSVAGINAL ONLY) 14:02:32 INDICATION: R10.2 Pelvic and perineal painTECHNIQUE:Real- time and doppler transvaginal ultrasound evaluation of the pelvis was performed on the [facility].Comparison study: No prior study.FINDINGS:Uter us: 8.2 [...] Reference Range Interpretation Comme nts POC-GLUCOSE METER ([employer]) (test 230 mg/dL 70-110 H TESTED AT [facility] [address] [facility] code = 1538) [facility] [place] [address] POCT-GLUCOSE [id number] 08:32:00 Test Item Value Reference Range Interpretation Comments POC-GLUCOSE METER 70 mg/dL 70-110 TESTED AT [facility] [address] ([facility]) (test code = [facility] 1538) [place] [address] POCT-GLUCOSE [id number] 05:13:00 Test Item Value Reference Range Interpretation Comments POC-GLUCOSE METER 152 mg/dL 70-110 H TESTED AT [facility] [address] ([employer]) (test code [facility] = 1538) [place] [address] POCT-GLUCOSE [id number] 04:14:00 Test Item Value Reference Range Interpretation Comments POC-GLUCOSE METER 55 mg/dL 70-110 L TESTED AT [facility] [address] (BEAKER) (test code = [employer] [facility] 1538) [place] [address] POCT-GLUCOSE [id number] 20:37:00 Test Item Value Reference Range Interpretation Comments POC-GLUCOSE METER 204 mg/dL 70-110 H TESTED AT [facility] [address] (BEAKER) (test code [facility] = 1538) [place] [address] POCT-GLUCOSE [id number] 19:01:00 Test Item Value Reference Range Interpretation Comments POC-GLUCOSE METER 88 mg/dL 70-[address] [place] [address] [address] (BEAKER) (test code = [employer] [facility] 1538) [place] [address] POCT-GLUCOSE [id number] 17:27:00 Test Item Value Reference Range Interpretation Comments POC-GLUCOSE METER 253 mg/dL 70-110 H TESTED AT [facility] [address] (BEAKER) (test code [facility] = 1538) [place] [address] POCT-GLUCOSE [id number] 15:36:00 Test Item Value Reference Range Interpretation Comments POC-GLUCOSE METER 366 mg/dL 70-110 H TESTED AT [facility] [address] (BEAKER) (test code [employer] [facility] = 1538) [place] [address] POCT-GLUCOSE [id number] 11:51:00 Test Item Value Reference Range Interpretation Comments POC-GLUCOSE METER 194 mg/dL 70-110 H TESTED AT [facility] [address] (BEAKER) (test code [facility] = 1538) [place] [address] POCT-GLUCOSE [id number] 10:19:00 Test Item Value Reference Range Interpretation Comments POC-GLUCOSE METER 147 mg/dL 70-110 H TESTED AT [facility] [address] (BEAKER) (test code [employer] [facility] = 1538) [place] [address] BASIC METABOLIC [id number] 09:23:00 Test Item Value Reference Range Interpretation [...] NOT APPLICABLE FOR DIALYSIS PATIEN TS. POCT-GLUCOSE [id number] 08:02:00 Test Item Value Reference Range Interpretation Comments POC-GLUCOSE METER 161 mg/dL 70-110 H TESTED AT [facility] [address] (BEAKER) (test code [facility] = 1538) [place] [address] POCT-GLUCOSE [id number] 07:03:00 Test Item Value Reference Range Interpretation Comments POC-GLUCOSE METER 151 mg/dL 70-110 H TESTED AT [facility] [address] (BEAKER) (test code [facility] = 1538) [place] [address] POCT-GLUCOSE [id number] 05:08:00 Test Item Value Reference Range Interpretation Comments POC-GLUCOSE METER 158 mg/dL 70-110 H TESTED AT [facility] [address] (BEAKER) (test code [facility] = 1538) [place] [address] BASIC METABOLIC [id number] 04:51:00 Test Item Value Reference Range Interpretation [...] NOT APPLICABLE FOR DIALYSIS PATIEN TS. POCT-GLUCOSE [id number] 03:03:00 Test Item Value Reference Range Interpretation Comments POC-GLUCOSE METER 153 mg/dL 70-110 H TESTED AT [facility] [address] (BEAKER) (test code [facility] = 1538) [place] [address] POCT-GLUCOSE [id number] 02:09:00 Test Item Value Reference Range Interpretation Comments POC-GLUCOSE METER 159 mg/dL 70-110 H TESTED AT [facility] [address] (BEAKER) (test code [facility] = 1538) [place] [address] POCT-GLUCOSE [id number] 01:08:00 Test Item Value Reference Range Interpretation Comments POC-GLUCOSE METER 174 mg/dL 70-110 H TESTED AT [facility] [address] (BEAKER) (test code [facility] = 1538) [place] [address] BASIC METABOLIC [id number] 00:38:00 Test Item Value Reference Range Interpretation [...] NOT APPLICABLE FOR DIALYSIS PATIEN TS. POCT-GLUCOSE [id number] 00:37:00 Test Item Value Reference Range Interpretation Comments POC-GLUCOSE METER 198 mg/dL 70-110 H TESTED AT [facility] [address] ([facility] (test code [employer] [facility] = 1538) [place] [address] POCT-GLUCOSE [id number] 00:14:00 Test Item Value Reference Range Interpretation Comments POC-GLUCOSE METER 162 mg/dL 70-110 H TESTED AT [facility] [address] ([facility]) (test code [employer] [facility] = 1538) [place] [address] POCT-GLUCOSE [id number] 23:39:00 Test Item Value Reference Range Interpretation Comments POC-GLUCOSE METER 149 mg/dL 70-110 H TESTED AT [facility] [address] ([facility]) (test code [employer] [facility] = 1538) [place] [address] POCT-GLUCOSE [id number] 23:10:00 Test Item Value Reference Range Interpretation Comments POC-GLUCOSE METER 134 mg/dL 70-110 H TESTED AT [facility] [address] ([facility]) (test code [employer] [facility] = 1538) [place] [address] POCT-GLUCOSE [id number] 22:41:00 Test Item Value Reference Range Interpretation Comments POC-GLUCOSE METER 112 mg/dL 70-110 H TESTED AT [facility] [address] ([facility]) (test code [employer] [facility] = 1538) [place] [address] POCT-GLUCOSE [id number] 21:59:00 Test Item Value Reference Range Interpretation Comments POC-GLUCOSE METER 95 mg/dL 70-110 TESTED AT [facility] [address] ([facility]) (test code = [employer] [facility] 1538) [place] [address] POCT-GLUCOSE [id number] 21:39:00 Test Item Value Reference Range Interpretation Comments POC-GLUCOSE METER 110 mg/dL 70-110 TESTED AT [facility] [address] ([facility]) (test code [employer] [facility] = 1538) [place] [address] POCT-GLUCOSE [id number] 21:07:00 Test Item Value Reference Range Interpretation Comments POC-GLUCOSE METER 114 mg/dL 70-110 H TESTED AT [facility] [address] (BEAKER) (test code [facility] = 1538) [place] [address] BASIC METABOLIC [id number] 20:47:00 Test Item Value Reference Range Interpretation [...] NOT APPLICABLE FOR DIALYSIS PATIEN TS. POCT-GLUCOSE [id number] 20:17:00 Test Item Value Reference Range Interpretation Comments POC-GLUCOSE METER 176 mg/dL 70-110 H TESTED AT [facility] [address] (BEAKER) (test code [facility] = 1538) [place] [address] [id number] 19:09:00 Test Item Value Reference Range Interpretation Comments GLUCOSE RANDOM (BEAKER) (test code 230 mg/dL 70-110 H = 652) If last glucose was less than 500, may do bedside glucose instead of serum glucose.POCT-GLUCOSE [id number] 18:53:00 Test Item Value Reference Range Interpretation Comments POC-GLUCOSE METER 212 mg/dL 70-110 H TESTED AT [facility] [address] (BEAKER) (test code [facility] = 1538) [place] [address] POCT-GLUCOSE [id number] 17:14:00 Test Item Value Reference Range Interpretation Comments POC-GLUCOSE METER 145 mg/dL 70-110 H TESTED AT [facility] [address] (BEAKER) (test code [facility] = 1538) [place] [address] BASIC METABOLIC [id number] 16:51:00 Test Item Value Reference Range Interpretation [...] may do bedside glucose instead of serum glucose.[id number] 16:47:00 Test Item Value Reference Range Interpretation Comments GLUCOSE RANDOM (BEAKER) (test code 126 mg/dL 70-110 H = 652) If last glucose was less than 500, may do bedside glucose instead of serum glucose.POCT-GLUCOSE [id number] 16:04:00 Test Item Value Reference Range Interpretation Comments POC-GLUCOSE METER 119 mg/dL 70-110 H TESTED AT [facility] [address] (BEAKER) (test code [facility] = 1538) [place] [address] [id number] 14:30:00 Test Item Value Reference Range Interpretation Comments POTASSIUM (BEAKER) (test code = 3.9 meq/L 3.5-5.5 379) If last glucose was less than 500, may do bedside glucose instead of serum glucose.[id number] 14:30:00 Test Item Value Reference Range Interpretation Comments GLUCOSE RANDOM (BEAKER) (test code 190 mg/dL 70-110 H = 652) If last glucose was less than 500, may do bedside glucose instead of serum glucose.POCT-GLUCOSE [id number] 14:05:00 Test Item Value Reference Range Interpretation Comments POC-GLUCOSE METER 194 mg/dL 70-110 H TESTED AT [facility] [address] (BEAKER) (test code [facility] = 1538) [place] [address] POCT-GLUCOSE [id number] 13:15:00 Test Item Value Reference Range Interpretation Comments POC-GLUCOSE METER 229 mg/dL 70-110 H TESTED AT [facility] [address] (BEAKER) (test code [facility] = 1538) [place] [address] BASIC METABOLIC [id number] 12:44:00 Test Item Value Reference Range Interpretation [...] may do bedside glucose instead of serum glucose.[id number] 12:43:00 Test Item Value Reference Range Interpretation Comments GLUCOSE RANDOM (BEAKER) (test code 258 mg/dL 70-110 H = 652) If last glucose was less than 500, may do bedside glucose instead of serum glucose.POCT-GLUCOSE [id number] 12:03:00 Test Item Value Reference Range Interpretation Comments POC-GLUCOSE METER 238 mg/dL 70-110 H TESTED AT [facility] [address] ([facility]) (test code [facility] = 1538) [place] [address] POCT-GLUCOSE [id number] 11:05:00 Test Item Value Reference Range Interpretation Comments POC-GLUCOSE METER 261 mg/dL 70-110 H TESTED AT [facility] [address] ([facility]) (test code [facility] = 1538) [place] [address] HEMOGLOBIN [id number] 10:07:00 Test Item Value Reference Range Interpretation Comments HEMOGLOBIN A1C ([facility]) (test code = > % 4.3-6.1 H 368) [id number] 10:00:00 Test Item Value Reference Range Interpretation Comments GLUCOSE RANDOM ([facility]) (test code 441 mg/dL 70-110 HH = 652) If last glucose was less than 500, may do bedside glucose instead of serum glucose.[id number] 09:55:00 Test Item Value Reference Range Interpretation Comments POTASSIUM (BEAKER) (test code = 4.1 meq/L 3.5-5.5 379) If last glucose was less than 500, may do bedside glucose instead of serum glucose.POCT-GLUCOSE [id number] 09:18:00 Test Item Value Reference Range Interpretation Comments POC-GLUCOSE METER > mg/dL 70-110 HH OUTSIDE ME ASURING ([facility]) (test code RANGETES PRACHI AT [facility] [address] = 1538) [place] [address] [id number] 09:15:00 Test Item Value Reference Range Interpretation Comments GLUCOSE RANDOM (AKER) (test code 585 mg/dL 70-110 HH = 652) If last glucose was less than 500, may do bedside glucose instead of serum glucose.COMPREHENSIVE METABOLIC [id number] 08:30:00 Test Item Value Reference Range Interpretation Comments TOTAL PROTEIN 8.2 gm/dL 6.0-8.5 (AKER) (test code = 770) ALBUMIN (AKER) 4.5 g/dL 3.5-5.0 (test code = 1145) ALKALINE PHOSPHATASE 135 U/L 30-115 H ([facility]) (test code = 346) BILIRUBIN TOTAL 0.3 [...] PATIEN TS. CBC W/PLT COUNT & AUTO [id number] 08:29:00 Test Item Value Reference Range Interpretation [...] K/ L 0.00-0.20 (test code = 417) [id number] 08:25:00 Test Item Value Reference Range Interpretation Comments PHOSPHORUS (BEAKER) (test code = 4.0 mg/dL 2.5-4.5 604) [id number] 08:25:00 Test Item Value Reference Range Interpretation Comments MAGNESIUM (BEAKER) (test code = 2.0 mg/dL 1.5-3.0 627) SCREEN, [id number] 08:16:00 Test Item Value Reference Range Interpretation Comments TEST URINE (BEAKER) (test Negative code = 583) URINALYSIS W/ [id number] 08:16:00 Test Item Value Reference Range Interpretation [...] Rare SOURCE(BEAKER) (test code = 2795) KETONE, [id number] 08:09:00 Test Item Value Reference Range Interpretation Comments KETONES, BLOOD (BEAKER) (test code 6.1 mmol/L <0.4 H = 1103) PH, [id number] 08:08:00 Test Item Value Reference Range Interpretation Comments PH VENOUS (BEAKER) (test code = 701) 7.18 7.32-7.42 LL BLOOD [id number] 13:00:00 Test Item Value Reference Range Interpretation Comments CULTURE (BEAKER) (test No growth in 5 days code = 1095) BLOOD [id number] 13:00:00 Test Item Value Reference Range Interpretation Comments CULTURE (BEAKER) (test No growth in 5 days code = 1095) POCT-GLUCOSE [id number] 17:12:00 Test Item Value Reference Range Interpretation Comments POC-GLUCOSE METER 136 mg/dL 70-110 H TESTED AT [facility] [address] (BEAKER) (test code [facility] = 1538) [place] [address] POCT-GLUCOSE [id number] 16:37:00 Test Item Value Reference Range Interpretation Comments POC-GLUCOSE METER 45 mg/dL 70-110 L TESTED AT [facility] [address] (BEAKER) (test code = [facility] 1538) [place] [address] POCT-GLUCOSE [id number] 11:32:00 Test Item Value Reference Range Interpretation Comments POC-GLUCOSE METER 98 mg/dL 70-110 TESTED AT [facility] [address] (BEAKER) (test code = [facility] 1538) [place] [address] POCT-GLUCOSE [id number] 06:45:00 Test Item Value Reference Range Interpretation Comments POC-GLUCOSE METER 85 mg/dL 70-110 TESTED AT [facility] [address] (BEAKER) (test code = [facility] 1538) [place] [address] [id number] 06:25:00 Test Item Value Reference Range Interpretation Comments PHOSPHORUS (BEAKER) (test code = 2.4 mg/dL 2.5-4.5 L 604) [id number] 06:25:00 Test Item Value Reference Range Interpretation Comments MAGNESIUM (BEAKER) (test code = 2.4 mg/dL 1.5-3.0 627) BASIC METABOLIC [id number] 06:25:00 Test Item Value Reference Range Interpretation [...] PATIEN TS. CBC W/PLT COUNT & AUTO [id number] 05:58:00 Test Item Value Reference Range Interpretation [...] L 0.00-0.20 (test code = 417) POCT-GLUCOSE [id number] 05:38:00 Test Item Value Reference Range Interpretation Comments POC-GLUCOSE METER 102 mg/dL 70-110 TESTED AT [facility] [address] (BEAKER) (test code [facility] = 1538) [place] [address] POCT-GLUCOSE [id number] 03:29:00 Test Item Value Reference Range Interpretation Comments POC-GLUCOSE METER 163 mg/dL 70-110 H TESTED AT [facility] [address] (BEAKER) (test code [facility] = 1538) [place] [address] POCT-GLUCOSE [id number] 03:29:00 Test Item Value Reference Range Interpretation Comments POC-GLUCOSE METER 155 mg/dL 70-110 H TESTED AT [facility] [address] (BEAKER) (test code [facility] = 1538) [place] [address] BASIC METABOLIC [id number] 01:42:00 Test Item Value Reference Range Interpretation [...] S NOT APPLICABLE FOR DIALYSIS PATIEN TS. [id number] 01:39:00 Test Item Value Reference Range Interpretation Comments PHOSPHORUS (BEAKER) (test code = 2.1 mg/dL 2.5-4.5 L 604) [id number] 01:39:00 Test Item Value Reference Range Interpretation Comments MAGNESIUM (BEAKER) (test code = 2.0 mg/dL 1.5-3.0 627) POCT-GLUCOSE [id number] 01:19:00 Test Item Value Reference Range Interpretation Comments POC-GLUCOSE METER 152 mg/dL 70-110 H TESTED AT [facility] [address] (BEAKER) (test code [facility] = 1538) [place] [address] POCT-GLUCOSE [id number] 01:07:00 Test Item Value Reference Range Interpretation Comments POC-GLUCOSE METER 145 mg/dL 70-110 H TESTED AT [facility] [address] (BEAKER) (test code [facility] = 1538) [place] [address] POCT-GLUCOSE [id number] 01:07:00 Test Item Value Reference Range Interpretation Comments POC-GLUCOSE METER 165 mg/dL 70-110 H TESTED AT [facility] [address] ([facility] (test code [facility] = 1538) [place] [address] POCT-GLUCOSE [id number] 01:07:00 Test Item Value Reference Range Interpretation Comments POC-GLUCOSE METER 163 mg/dL 70-110 H TESTED AT [facility] [address] (BEAKER) (test code [facility] = 1538) [place] [address] BASIC METABOLIC [id number] 20:59:00 Test Item Value Reference Range Interpretation [...] S NOT APPLICABLE FOR DIALYSIS PATIEN TS. [id number] 20:58:00 Test Item Value Reference Range Interpretation Comments MAGNESIUM (BEAKER) 1.8 mg/dL 1.5-3.0 Specimen slightly (test code = 627) hemolyzed [id number] 20:58:00 Test Item Value Reference Range Interpretation Comments PHOSPHORUS (BEAKER) 2.2 mg/dL 2.5-4.5 L Specimen slightly (test code = 604) hemolyzed POCT-GLUCOSE [id number] 18:02:00 Test Item Value Reference Range Interpretation Comments POC-GLUCOSE METER 176 mg/dL 70-110 H TESTED AT [facility] [address] (BEAKER) (test code [facility] = 1538) [place] [address] [id number] 16:46:00 Test Item Value Reference Range Interpretation Comments MAGNESIUM (BEAKER) 2.1 mg/dL 1.5-3.0 Specimen slightly (test code = 627) hemolyzed [id number] 16:46:00 Test Item Value Reference Range Interpretation Comments PHOSPHORUS (BEAKER) 2.1 mg/dL 2.5-4.5 L Specimen slightly (test code = 604) hemolyzed BASIC METABOLIC [id number] 16:46:00 Test Item Value Reference Range Interpretation [...] NOT APPLICABLE FOR DIALYSIS PATIEN TS. CALCIUM, [id number] 16:21:00 Test Item Value Reference Range Interpretation Comments CALCIUM IONIZED (BEAKER) (test 1.13 mmol/L 1.12-1.27 code = 698) PH, BLOOD (BEAKER) (test code = 7.30 1810) Check serum Ionized Calcium level after 4 hours after IV Calcium replacement. POCT-GLUCOSE [id number] 16:12:00 Test Item Value Reference Range Interpretation Comments POC-GLUCOSE METER 191 mg/dL 70-110 H TESTED AT [facility] [address] (BEAKER) (test code [facility] = 1538) [place] [address] POCT-GLUCOSE [id number] 15:20:00 Test Item Value Reference Range Interpretation Comments POC-GLUCOSE METER 181 mg/dL 70-110 H TESTED AT [facility] [address] (BEAKER) (test code [facility] = 1538) [place] [address] POCT-GLUCOSE [id number] 14:15:00 Test Item Value Reference Range Interpretation Comments POC-GLUCOSE METER 169 mg/dL 70-110 H TESTED AT [facility] [address] (BEAKER) (test code [facility] = 1538) [place] [address] BASIC METABOLIC [id number] 13:44:00 Test Item Value Reference Range Interpretation [...] NOT APPLICABLE FOR DIALYSIS PATIEN TS. POCT-GLUCOSE [id number] 13:24:00 Test Item Value Reference Range Interpretation Comments POC-GLUCOSE METER 157 mg/dL 70-110 H TESTED AT [facility] [address] (BEAKER) (test code [facility] = 1538) [place] [address] POCT-GLUCOSE [id number] 12:34:00 Test Item Value Reference Range Interpretation Comments POC-GLUCOSE METER 131 mg/dL 70-110 H TESTED AT [facility] [address] (BEAKER) (test code [facility] = 1538) [place] [address] POCT-GLUCOSE [id number] 11:39:00 Test Item Value Reference Range Interpretation Comments POC-GLUCOSE METER 160 mg/dL 70-110 H TESTED AT [facility] [address] (BEAKER) (test code [facility] = 1538) [place] [address] [id number] 11:13:00 Test Item Value Reference Range Interpretation Comments PROCALCITONIN (BEAKER) (test code = < ng/mL <0.05 3036) SEPSIS RISK (ng/mL)Low: 0.05-0.50Intermediate: 0.51-2.00High: >=2.01POCT- GLUCOSE [id number] 10:40:00 Test Item Value Reference Range Interpretation Comments POC-GLUCOSE METER 202 mg/dL 70-110 H TESTED AT [facility] [address] (BEAKER) (test code [facility] = 1538) [place] [address] [id number] 10:04:00 Test Item Value Reference Range Interpretation Comments PHOSPHORUS (BEAKER) 1.4 mg/dL 2.5-4.5 LL Specimen slightly (test code = 604) hemolyzed BASIC METABOLIC [id number] 10:04:00 Test Item Value Reference Range Interpretation [...] S NOT APPLICABLE FOR DIALYSIS PATIEN TS. [id number] 10:02:00 Test Item Value Reference Range Interpretation Comments MAGNESIUM (BEAKER) 1.8 mg/dL 1.5-3.0 Specimen slightly (test code = 627) hemolyzed POCT-GLUCOSE [id number] 09:36:00 Test Item Value Reference Range Interpretation Comments POC-GLUCOSE METER 212 mg/dL 70-110 H TESTED AT [facility] [address] (BEAKER) (test code [facility] = 1538) [place] [address] POCT-GLUCOSE [id number] 08:43:00 Test Item Value Reference Range Interpretation Comments POC-GLUCOSE METER 268 mg/dL 70-110 H TESTED AT [facility] [address] (BEAKER) (test code [facility] = 1538) [place] [address] [id number] 07:47:00 Test Item Value Reference Range Interpretation Comments POTASSIUM (BEAKER) (test code = 4.0 meq/L 3.5-5.5 379) If last glucose was less than 500, may do bedside glucose instead of serum glucose.[id number] 07:47:00 Test Item Value Reference Range Interpretation Comments GLUCOSE RANDOM (BEAKER) (test code 370 mg/dL 70-110 H = 652) If last glucose was less than 500, may do bedside glucose instead of serum glucose.POCT-GLUCOSE [id number] 07:31:00 Test Item Value Reference Range Interpretation Comments POC-GLUCOSE METER 328 mg/dL 70-110 H Notified R Evita DAVIS/TESTED AT (BEAKER) (test code [facility] [address] [facility] [address] = 1538) [facility] [place] [address] POCT-GLUCOSE [id number] 07:31:00 Test Item Value Reference Range Interpretation Comments POC-GLUCOSE METER 414 mg/dL 70-110 HH TESTED AT [facility] [address] (BEAKER) (test code [facility] = 1538) [place] [address] [id number] 06:57:00 Test Item Value Reference Range Interpretation Comments POTASSIUM (BEAKER) (test code = 4.5 meq/L 3.5-5.5 379) [id number] 06:51:00 Test Item Value Reference Range Interpretation Comments GLUCOSE RANDOM (BEAKER) (test code 523 mg/dL 70-110 HH = 652) If last glucose was less than 500, may do bedside glucose instead of serum glucose.URINALYSIS W/ REFLEX URINE [id number] 06:29:00 Test Item Value Reference Range Interpretation [...] (test code = 2795) RAPID INFLUENZA A&B [id number] 06:13:00 Test Item Value Reference Range Interpretation Comments RAPID INFLUENZA A AG (BEAKER) (test Negative Negative code = 1622) RAPID INFLUENZA B AG (BEAKER) (test Negative Negative code = 1623) SCREEN, [id number] 05:58:00 Test Item Value Reference Range Interpretation Comments TEST URINE (BEAKER) (test Negative code = 583) RAD, CHEST, 1 VIEW, NON [id number] 05:52:00Reason for exam:->EMESISReason for exam:->BLOOD SUGAR PROBLEMShould this be performed at the bedside?- >YesIs the patient ?->NoFINAL REPORT Comparison examination: 04/07/2017 No pneumothorax, focal pulmonary consolidation, or significant pleural effusion. Normal cardiomediastinal contours. Normal skeleton and soft tissues. Impression: No acute abnormality. Signed: Joesph Lopez Verified Date/Time: 05/18/2017 05:52:18 Reading Location: [address] Transitional Reading Room HEMOGLOBIN [id number] 05:49:00 Test Item Value Reference Range Interpretation Comments HEMOGLOBIN A1C (BEAKER) (test code = 13.2 % 4.3-6.1 H 368) BASIC METABOLIC [id number] 05:28:00 Test Item Value Reference Range Interpretation [...] bedside glucose instead of serum glucose.HEPATIC FUNCTION [id number] 05:27:00 Test Item Value Reference Range Interpretation [...] glucose instead of serum glucose.Specimen slightlylipemicBLOOD GAS, [id number] 05:04:00 Test Item Value Reference Range Interpretation [...] (test code = 1819) 21.0 % KETONE, [id number] 05:03:00 Test Item Value Reference Range Interpretation Comments KETONES, BLOOD (BEAKER) (test code 5.8 mmol/L <0.4 H = 1103) CBC W/PLT COUNT & AUTO [id number] 05:02:00 Test Item Value Reference Range Interpretation [...] L 0.00-0.20 (test code = 417) POCT-GLUCOSE [id number] 04:49:00 Test Item Value Reference Range Interpretation Comments POC-GLUCOSE METER > mg/dL 70-110 HH OUTSIDE ME ASURING (BEAKER) (test code RANGETES PRACHI AT [facility] [address] = 1538) [facility] [address] BLOOD [id number] 00:00:00 Test Item Value Reference Range Interpretation Comments CULTURE (BEAKER) (test No growth in 5 days code = 1095) BLOOD [id number] 00:00:00 Test Item Value Reference Range Interpretation Comments CULTURE (BEAKER) (test No growth in 5 days code = 1095) URINE [id number] 15:21:00 Test Item Value Reference Range Interpretation Comments CULTURE (BEAKER) (test >100,000 col/mL skin code = 1095) christophe POCT-GLUCOSE [id number] 14:37:00 Test Item Value Reference Range Interpretation Comments POC-GLUCOSE METER 326 mg/dL 70-110 H TESTED AT [place] [address] ([facility]) (test code = SHARATH Blackwell [facility] 1538) [address] POCT-GLUCOSE [id number] 13:26:00 Test Item Value Reference Range Interpretation Comments POC-GLUCOSE METER 331 mg/dL 70-110 H TESTED AT [place] [address] ([facility]) (test code = [facility] Rosalva [facility] 1538) [address] CBC W/PLT COUNT & AUTO [id number] 11:34:00 Test Item Value Reference Range Interpretation [...] Comments TOTAL COUNTED (BEAKER) (test code = 3801) POCT-GLUCOSE [id number] 11:18:00 Test Item Value Reference Range Interpretation Comments POC-GLUCOSE METER 349 mg/dL 70-110 H TESTED AT [facility] 6720 (BEAKER) (test code = SHARATH HERRING 1538) [address] POCT-GLUCOSE [id number] 09:34:00 Test Item Value Reference Range Interpretation Comments POC-GLUCOSE METER 61 mg/dL 70-110 L TESTED AT [place] [address] (BEAKER) (test code = [facility] Rosalva [facility] [address] 1538) POCT-GLUCOSE [id number] 08:48:00 Test Item Value Reference Range Interpretation Comments POC-GLUCOSE METER 79 mg/dL 70-110 TESTED AT [place] [address] (BEAKER) (test code = [facility] Rosalva [facility] [address] 1538) BASIC METABOLIC [id number] 06:12:00 Test Item Value Reference Range Interpretation [...] NOT APPLICABLE FOR DIALYSIS PATIEN TS. KETONE, [id number] 05:43:00 Test Item Value Reference Range Interpretation Comments KETONES, BLOOD (BEAKER) (test code 0.1 mmol/L <0.4 = 1103) POCT-GLUCOSE [id number] 05:39:00 Test Item Value Reference Range Interpretation Comments POC-GLUCOSE METER 366 mg/dL 70-110 H TESTED AT [place] [id number] (BEAKER) (test code = [facility] 1538) [address] POCT-GLUCOSE [id number] 22:32:00 Test Item Value Reference Range Interpretation Comments POC-GLUCOSE METER 302 mg/dL 70-110 H TESTED AT [place] [address] ([facility] (test code = [facility] 1538) [address] POCT-GLUCOSE [id number] 19:15:00 Test Item Value Reference Range Interpretation Comments POC-GLUCOSE METER 273 mg/dL 70-110 H TESTED AT [place] [address] ([facility]) (test code = SHARATH Blackwell [facility] 1538) [address] POCT-GLUCOSE [id number] 17:49:00 Test Item Value Reference Range Interpretation Comments POC-GLUCOSE METER 174 mg/dL 70-110 H TESTED AT [place] [address] ([facility]) (test code = SHARATH Blackwell [facility] 1538) [address] POCT-GLUCOSE [id number] 17:02:00 Test Item Value Reference Range Interpretation Comments POC-GLUCOSE METER 171 mg/dL 70-110 H TESTED AT [place] [address] ([facility]) (test code = SHARATH Blackwell [facility] 1538) [address] POCT-GLUCOSE [id number] 15:17:00 Test Item Value Reference Range Interpretation Comments POC-GLUCOSE METER 135 mg/dL 70-110 H TESTED AT [place] [address] ([facility]) (test code = SHARATH Blackwell [facility] 1538) [address] POCT-GLUCOSE [id number] 13:10:00 Test Item Value Reference Range Interpretation Comments POC-GLUCOSE METER 61 mg/dL 70-110 L TESTED AT [place] [address] ([facility]) (test code = SHARATH Blackwell [facility] [address] 1538) POCT-GLUCOSE [id number] 11:21:00 Test Item Value Reference Range Interpretation Comments POC-GLUCOSE METER 57 mg/dL 70-110 L Notified Rosalva Soto MD/TESTED AT ([facility]) (test code = [place] [address] [facility]8) [facility] [address] POCT-GLUCOSE [id number] 08:02:00 Test Item Value Reference Range Interpretation Comments POC-GLUCOSE METER 68 mg/dL 70-110 L Notified Rosalva Soto MD/TESTED AT ([facility]) (test code = [place] [address]28) [facility] 7703 0 CBC W/PLT COUNT & AUTO [id number] 08:02:00 Test Item Value Reference Range Interpretation Comments WHITE BLOOD CELL COUNT ([facility]) 6.6 K/ L 3.5-10.5 (test code [...] PERCENT (BEAKER) (test code = 2801) POCT-GLUCOSE [id number] 06:58:00 Test Item Value Reference Range Interpretation Comments POC-GLUCOSE METER 95 mg/dL 70-110 TESTED AT [facility] 6720 (BEAKER) (test code = SHARATH Blackwell [facility] [address] 1538) POCT-GLUCOSE [id number] 06:17:00 Test Item Value Reference Range Interpretation Comments POC-GLUCOSE METER 150 mg/dL 70-110 H TESTED AT [place] [address] (BEAKER) (test code = [facility] Rosalva [facility] 1538) [address] POCT-GLUCOSE [id number] 05:18:00 Test Item Value Reference Range Interpretation Comments POC-GLUCOSE METER 101 mg/dL 70-110 TESTED AT [place] [address] (BEAKER) (test code = [facility] Rosalva [facility] 1538) [address] POCT-GLUCOSE [id number] 05:07:00 Test Item Value Reference Range Interpretation Comments POC-GLUCOSE METER 119 mg/dL 70-110 H TESTED AT [place] [address] (BEAKER) (test code = [facility] 1538) [address] BASIC METABOLIC [id number] 04:52:00 Test Item Value Reference Range Interpretation [...] NOT APPLICABLE FOR DIALYSIS PATIEN TS. POCT-GLUCOSE [id number] 04:05:00 Test Item Value Reference Range Interpretation Comments POC-GLUCOSE METER 48 mg/dL 70-110 L TESTED AT [place] [address] (BEAKER) (test code = [facility] [address] 1538) POCT-GLUCOSE [id number] 02:30:00 Test Item Value Reference Range Interpretation Comments POC-GLUCOSE METER 181 mg/dL 70-110 H TESTED AT [place] [address] ([facility]) (test code = [facility] 1538) [address] POCT-GLUCOSE [id number] 02:10:00 Test Item Value Reference Range Interpretation Comments POC-GLUCOSE METER 37 mg/dL 70-110 LL Will Repea t Test/TESTED (BEAKER) (test code = AT [facility] [address] [facility]) [facility] 7[address] 0 POCT-GLUCOSE [id number] 01:07:00 Test Item Value Reference Range Interpretation Comments POC-GLUCOSE METER 87 mg/dL 70-110 TESTED AT [place] [address] ([facility]) (test code = [facility] [address] 1538) BASIC METABOLIC [id number] 00:44:00 Test Item Value Reference Range Interpretation [...] NOT APPLICABLE FOR DIALYSIS PATIEN TS. POCT-GLUCOSE [id number] 00:30:00 Test Item Value Reference Range Interpretation Comments POC-GLUCOSE METER 96 mg/dL 70-110 TESTED AT [place] [address] ([facility]) (test code = [facility] [address] 1538) POCT-GLUCOSE [id number] 23:54:00 Test Item Value Reference Range Interpretation Comments POC-GLUCOSE METER 91 mg/dL 70-110 TESTED AT [facility] 6720 (BEAKER) (test code = [facility] [address] 1538) POCT-GLUCOSE [id number] 23:12:00 Test Item Value Reference Range Interpretation Comments POC-GLUCOSE METER 48 mg/dL 70-110 L TESTED AT [place] [address] (BEAKER) (test code = [facility] [address] 1538) POCT-GLUCOSE [id number] 21:58:00 Test Item Value Reference Range Interpretation Comments POC-GLUCOSE METER 94 mg/dL 70-110 TESTED AT [place] [address] (BEAKER) (test code = [facility] [address] 1538) BASIC METABOLIC [id number] 21:08:00 Test Item Value Reference Range Interpretation [...] NOT APPLICABLE FOR DIALYSIS PATIEN TS. POCT-GLUCOSE [id number] 20:57:00 Test Item Value Reference Range Interpretation Comments POC-GLUCOSE METER 165 mg/dL 70-110 H TESTED AT [facility] 6720 (BEAKER) (test code = [facility] 1538) [address] [id number] 20:55:00 Test Item Value Reference Range Interpretation Comments POTASSIUM (BEAKER) (test code = 3.6 meq/L 3.5-5.1 379) URINALYSIS W/ [id number] 20:40:00 Test Item Value Reference Range Interpretation [...] 516) SOURCE(BEAKER) (test code = 2795) POCT-GLUCOSE [id number] 19:59:00 Test Item Value Reference Range Interpretation Comments POC-GLUCOSE METER 282 mg/dL 70-110 H TESTED AT [facility] 6720 (BEAKER) (test code = SHARATH Blackwell [facility] 1538) [address] POCT-GLUCOSE [id number] 19:02:00 Test Item Value Reference Range Interpretation Comments POC-GLUCOSE METER 374 mg/dL 70-110 H Notified Rosalva Soto MD/TESTED (BEAKER) (test code = AT [facility] [address] [facility] 7703 0 CBC W/PLT COUNT & AUTO [id number] 18:56:00 Test Item Value Reference Range Interpretation [...] PERCENT (BEAKER) (test code = 2801) POCT-GLUCOSE [id number] 18:03:00 Test Item Value Reference Range Interpretation Comments POC-GLUCOSE METER 294 mg/dL 70-110 H TESTED AT [facility] 6720 (TACO) (test code = SHARATH [place] 1538) [address] HEMOGLOBIN [id number] 17:45:00 Test Item Value Reference Range Interpretation Comments HEMOGLOBIN A1C (TACO) (test code = 12.6 % 4.3-6.1 H 368) RAD, CHEST, 1 VIEW, NON [id number] 17:20:00Reason for exam:->sobShould this be performed at the bedside?->YesFINAL REPORT AP chest History: Shortness of breath. Comparison: None available.Discussion: The trachea is midline. The lungs are symmetrically expanded without evidence of focal consolidation, pneumothorax, or significant pleural fluid. The cardiomediastinal silhouette and pulmonary vasculature are within normal limits. No acute osseous abnormalities are identified. The surrounding soft tissues are unremarkable. IMPRESSION: No acute cardiopulmonary abnormality. Signed: Salomon Shelton Verified Date/Time: 04/07/2017 17:20:50 Reading Location: [address] Radiology Reading Room TSH/FREE T4 IF [id number] 17:04:00 Test Item Value Reference Range Interpretation Comments THYROID STIMULATING HORMONE 0.95 uIU/mL 0.35-4.94 (TACO) (test code = 772) TROPONIN [id number] 16:51:00 Test Item Value Reference Range Interpretation Comments TROPONIN I (TACO) (test code = 397) < ng/mL 0.00-0.03 Effective 06/20/2014: Reference Range ChangeNew: 0.00-0.03 Previous 0.00- 0.15Troponin I (TnI) levelsmust be interpreted in the context of the [...] failure, acidosis, acute neurological disease, and persistent tachyarrhythmia.[id number] 16:45:00 Test Item Value Reference Range Interpretation Comments LIPASE (BEAKER) (test code = 749) 33 U/L 8-78 [id number] 16:45:00 Test Item Value Reference Range Interpretation Comments AMYLASE (BEAKER) (test code = 349) 66 U/L 25-125 BASIC METABOLIC [id number] 16:45:00 Test Item Value Reference Range Interpretation [...] DIALYSIS PATIEN TS. LACTIC ACID, VENOUS, WHOLE [id number] 16:45:00 Test Item Value Reference Range Interpretation Comments LACTATE BLOOD VENOUS (2) (BEAKER) 1.1 mmol/L 0.5-2.2 (test code = 2872) Effective 12/05/2015: Units/Reference Range ChangeNew: 0.5-2.2 mmol/L Previous: 5- 20 mg/dLKETONE, [id number] 16:41:00 Test Item Value Reference Range Interpretation Comments KETONES, BLOOD (BEAKER) (test code 2.1 mmol/L <0.4 H = 1103) BLOOD GAS, [id number] 16:27:00 Test Item Value Reference Range Interpretation Comments PH VENOUS (BEAKER) (test code = 7.36 7.32-7.42 701) PCO2 VENOUS (BEAKER) (test code = 41 mmHg 41-51 755) PO2 VENOUS ([facility]) (test code = 18 mmHg 25-40 L 702) O2 SATURATION VENOUS (AKER) 26.4 % 40.0-70.0 L (test code = 703) HCO3 VENOUS ([facility]) (test code = 23 mmol/L 21-29 705) BASE EXCESS VENOUS ([facility]) (test -2.5 mmol/L -2.0-3.0 L code = 704) PATIENT TEMPERATURE ([facility]) 37.0 C (test code = 1818) POCT-GLUCOSE [id number] 16:20:00 Test Item Value Reference Range Interpretation Comments POC-GLUCOSE METER 156 mg/dL 70-110 H TESTED AT [place] [address] ([facility]) (test code = SHARATH Blackwell [place] 1538) [address] POCT-GLUCOSE [id number] 15:28:00 Test Item Value Reference Range Interpretation Comments POC-GLUCOSE METER 101 mg/dL 70-110 TESTED AT [place] [address] ([facility]) (test code = SHARATH Blackwell [place] 1538) [address]
[2022-05-19] MEDS ORDERED: LIDOCAINE 1% MPF 5 ML VIAL ONE (22:01)
[2022-05-19] MEDS ORDERED: TETANUS & DIPHTHERIA TOX,ADULT 0.5 ML VIAL ONE (22:03)
--- NOTE | 2022-05-19 22:36 | ER ---
Nurse's Notes [facility] Name: Salome Santacruz Age: 22 yrs Sex: Female : 2000 Arrival Date: 05/19/2022 Time: 18:49 Bed 9 Private MD: Diagnosis: Laceration without foreign body of left thumb without damage to nail Presentation: 05/19 19:24 Chief complaint: Patient states: I cut my thumb on a knife at work. left thumb. kd3 Coronavirus screen: Vaccine status: Patient reports receiving the 2nd dose of the covid vaccine. 19:24 Method Of Arrival: Ambulatory kd3 19:27 Ebola Screen: No symptoms or risks identified at this time. Initial Sepsis Screen: Does kd3 the patient meet any 2 criteria? No. Patient's initial sepsis screen is negative. Does the patient have a suspected source of infection? No. Patient's initial sepsis screen is negative. Risk Assessment: Do you want to hurt yourself or someone else? Patient reports no desire to harm self or others. Onset of symptoms was May 19, 2022. 19:27 Acuity: BRIAN 3 kd3 Triage Assessment: 19:29 General: Appears in no apparent distress. Behavior is calm, cooperative. Pain: Denies kd3 pain. 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 - Social history:: Smoking status: Patient denies any tobacco usage or history of. Screenin:24 Abuse screen: Denies threats or abuse. Nutritional screening: No deficits noted. em6 Tuberculosis screening: No symptoms or risk factors identified. Fall Risk Total [place] Fall Scale indicates No Risk (0-24 pts). Assessment: 22:14 Reassessment: SEE TRIAGE ASSESSMENT. jj7 Vital Signs: 19:27 BP 112 / 78; Pulse 84; Resp 16; Temp 98.6(O); Pulse Ox 100% on R/A; Weight 63.5 kg; kd3 Height 5 ft. 4 in. (162.56 cm); Pain 0/10; 22:14 BP 120 / 76; Pulse 86; Resp 18; Pulse Ox 98% ; jj7 19:27 Body Mass Index 24.03 (63.50 kg, 162.56 cm) kd3 ED Course: 18:49 Patient arrived in ED. rg4 19:04 Lo Alcaraz FNP-C [facility]. kb 19:04 Joe Carreon MD is Attending Physician. kb 19:20 Bed in low position. Call light in reach. em6 19:29 Triage completed. kd3 19:29 Arm band placed on right wrist. kd3 23:02 No provider procedures requiring assistance completed. Patient did not have IV access em6 during this emergency room visit. 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 Exp: jj7 12/21/2023. Lot #: [id number]. } Route: IM; Site: left deltoid; 22:00 Follow up: Response: No adverse reaction em6 Medication: 23:03 Vaccine Information Statement (VIS) provided today. Questions and/or concerns em6 addressed. VIS edition date: March 08, 2021. Outcome: 22:36 Discharge ordered by . kb 23:02 Discharged to home ambulatory, with family. em6 23:02 Condition: stable 23:02 Condition: stable 23:02 Discharge instructions given to patient, family, Instructed on discharge instructions, follow up and referral plans. medication usage, Demonstrated understanding of instructions, follow-up care, medications, Prescriptions given X 1. 23:04 Patient left the ED. em6 Signatures: Lo Alcaraz FNP-C FNP-Patricia Mcgarry rg4 Sheila Shay RN RN kd3 Sho Ross RN RN em6 Washington Devries RN RN jj7 Corrections: (The following items were deleted from the chart) 19:27 19:24 Chief complaint: Patient states: I cut my thumb on a knife at work. left thumb. kd3 kd3 23:01 23:01 Response: No adverse reaction em6 em6
--- NOTE | 2022-05-19 22:36 | EDPHYS ---
Physician Documentation [facility] Name: Salome Santacruz Age: 22 yrs Sex: Female : 2000 Arrival Date: 05/19/2022 Time: 18:49 Bed 9 Private MD: ED Physician Joe Carreon HPI: 05/19 22:51 This 22 yrs old Female presents to ER via Ambulatory with complaints of Finger kb Laceration. 22:51 The patient has a laceration related to: cooking, from a knife, occurred at work, and kb there are no complicating factors. The injury was accidental. The laceration(s) is(are) located on the palmar aspect of distal phalanx of left thumb. Onset: The symptoms/episode began/occurred at 15:00. Associated signs and symptoms: The patient has no apparent associated signs or symptoms. The patient has not experienced similar symptoms in the past. The patient has not recently seen a physician. 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 - Social history:: Smoking status: Patient denies any tobacco usage or history of. ROS: 22:51 Constitutional: Negative for fever, chills, and weight loss. kb 22:51 Skin: Positive for laceration(s), of the palmar aspect of distal phalanx of left thumb. 22:51 All other systems are negative. Exam: 22:51 Constitutional: This is a well developed, well nourished patient who is awake, alert, kb and in no acute distress. Head/Face: Normocephalic, atraumatic. ENT: Moist Mucous membranes Cardiovascular: Regular rate and rhythm with a normal S1 and S2. No gallops, murmurs, or rubs. No pulse deficits. Respiratory: Respirations even and unlabored. No increased work of breathing. Talking in full sentences MS/ Extremity: Pulses equal, no cyanosis. Neurovascular intact. Full, normal range of motion. Neuro: Awake and alert, GCS 15, oriented to person, place, time, and situation. Moves all extremities. Normal gait. 22:51 Skin: injury, laceration(s), the wound is approximately 1.5 cm(s), of the palmar aspect of distal phalanx of left thumb, that can be described as clean, no foreign body, irregular, without bleeding. Vital Signs: 19:27 BP 112 / 78; Pulse 84; Resp 16; Temp 98.6(O); Pulse Ox 100% on R/A; Weight 63.5 kg; kd3 Height 5 ft. 4 in. (162.56 cm); Pain 0/10; 22:14 BP 120 / 76; Pulse 86; Resp 18; Pulse Ox 98% ; jj7 19:27 Body Mass Index 24.03 (63.50 kg, 162.56 cm) kd3 Laceration: 22:34 Wound Repair of 1.5cm ( 0.6in ) subcutaneous laceration to palmar aspect of distal kb phalanx of left thumb. Skin/tissue flap noted.. Distal neuro/vascular/tendon intact. Anesthesia: Wound infiltrated with 0.5 mls of 1% lidocaine. Wound prep: Extensive cleansing with hibiclenz by me, Wound irrigation with saline by me. Skin closed with 3 5-0 Prolene using simple sutures and sterile technique. Patient tolerated well. MDM: 19:32 Patient medically screened. kb 22:34 Data reviewed: vital signs, nurses notes. Data interpreted: Pulse oximetry: on room air kb is 100 %. Interpretation: normal. Counseling: I had a detailed discussion with the patient and/or guardian regarding: the historical points, exam findings, and any diagnostic results supporting the discharge/admit diagnosis, the need for outpatient follow up, a family practitioner, to return to the emergency department if symptoms worsen or persist or if there are any questions or concerns that arise at home. 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 Exp: jj7 12/21/2023. Lot #: [id number]. } Route: IM; Site: left deltoid; 22:00 Follow up: Response: No adverse reaction em6 Disposition: 23:58 Co-signature as Attending Physician, Joe Carreon MD. rn Disposition Summary: 05/19/22 22:36 Discharge Ordered Location: Home kb Condition: Stable kb Diagnosis - Laceration without foreign body of left thumb without damage to nail kb Followup: kb - With: Emergency Department - When: As needed - Reason: Worsening of condition Followup: kb - With: Private Physician - When: 2 - 3 days - Reason: Recheck today's complaints, Continuance of care, Re-evaluation by your physician Discharge Instructions: - Discharge Summary Sheet kb - Laceration Care, Adult, [id number] kb Forms: - Medication Reconciliation Form kb - Thank You Letter kb - Antibiotic Education kb - Prescription Opioid Use kb Prescriptions: - Bactrim DS 800-160 mg Oral Tablet - take 1 tablet by ORAL route every 12 hours for 7 days; 14 tablet; Refills: 0, kb Product Selection Permitted Signatures: Lo Alcaraz, DATA CONTROL CLERK SUPERVISOR-C DATA CONTROL CLERK SUPERVISOR-Joe Singleton MD MD rn Doucette, Kyli RN RN kd3 Sho Ross RN RN em6 Washington Devries RN RN jj7
[2022-05-19 23:10] VITALS: TEMP 98.6
[2022-05-19 23:11] VITALS: BP 120/76; O2SAT 98
== END 2022-05-19 23:04 | disposition home or self-care (01) ==
LOC: ER 18:46
PROC: 0JQK0ZZ Repair Left Hand Subcutaneous Tissue and Fascia, Open Approach (ICD-10-PCS; principal; 2022-05-19)
DX: S61.012A Laceration without foreign body of left thumb without damage to nail, initial encounter (principal); W26.0XXA Contact with knife, initial encounter; Y93.G3 Activity, cooking and baking; Y92.89 Other specified places as the place of occurrence of the external cause; Y99.0 Civilian activity done for income or pay; Z23 Encounter for immunization; Z88.1 Allergy status to other antibiotic agents; E11.9 Type 2 diabetes mellitus without complications; F41.9 Anxiety disorder, unspecified; F32.A Depression, unspecified; F31.9 Bipolar disorder, unspecified
CPT/HCPCS: 90471; 90714; 99283; 12001; J2001

== ENCOUNTER 2022-05-26 16:26 | Emergency (ER) | payer OTHER ==
--- OUTSIDE RECORDS SUMMARY | 2022-05-26 16:35 | XMS REPORT | Continuity of Care Document ---
:2000 Author Organization [facility] t Address [address] [place] [address] Care Team Providers Name Role Phone Inessa DAVIS, Cori A Primary Care Physician Unavailable ELEANOR SEXTON Attending Clinician Unavailable ELEANOR SEXTON Attending Clinician Unavailable RAUL HAMMOND Attending Clinician Unavailable AMALIA FLAHERTY Attending Clinician Unavailable Amalia Flaherty DO Attending Clinician Jacqui Espinal MD Attending Clinician Doctor Unassigned, [place] Attending Clinician Unavailable MARITZA VINES Attending Clinician Unavailable TIEN MANCUSO Attending Clinician Unavailable Green AVIATION METALSMITH, Bill Attending Clinician Ebrahim AVIATION METALSMITH, Rania Attending Clinician Anesruthi AVIATION METALSMITH, Raul Attending Clinician Lore Mccurdy RN, Arturo Attending Clinician Unavailable Only, Harvey Db Test Attending Clinician Unavailable Davidson DAVIS, Manda Attending Clinician MANDA CEDEÑO Attending Clinician Unavailable Sarai LEBRON, Annette Narayan Attending Clinician Unavailable Simone AVIATION METALSMITH, Dustin Attending Clinician DUSTIN NICHOLS Attending Clinician Unavailable Priti COLORADO, Abraham Robles Attending Clinician Unavailable Marcella Casey MD Attending Clinician MARCELLA CASEY Attending Clinician Unavailable KATIE APONTE Attending Clinician Unavailable Katie Aponte MD Attending Clinician Sonal Chao NP Attending Clinician RADHA ABREU Attending Clinician Unavailable Radha Abreu DO Attending Clinician SONAL CHAO Attending Clinician Unavailable Sandeep Monreal MD Attending Clinician OSVALDO SCHUTLE Attending Clinician Unavailable Alesha DAVIS, Sendil K.H. Attending Clinician PAMELA FINLEY Attending Clinician Unavailable Lab, Ang - Db Attending Clinician Unavailable Malia BRENNER, Pamela Blackwell Attending Clinician ALESHA SENDGIOVANNY K.H. Attending Clinician Unavailable COREY DURAN Attending Clinician Unavailable COREY DURAN Attending Clinician Unavailable JUNITO LEE Attending Clinician Unavailable Pat Barajas Attending Clinician PAT POZO Attending Clinician Unavailable Roger DAVIS, Corey Romo Attending Clinician Paul LEBRON, Kiley Narayan Attending Clinician FAVIOLA ORTIZ Attending Clinician Unavailable Angel DAVIS, Faviola Langford Attending Clinician Jessica DAVIS, Abraham Attending Clinician Maritza Santiago Attending Clinician JAQUELIN HERNANDEZ Attending Clinician Unavailable Mary DAVIS, Jaquelin Attending Clinician SENIA ARIAS Attending Clinician Unavailable MAEVE JAIME Attending Clinician Unavailable MAEVE JAIME Attending Clinician Unavailable JANE HERNANDEZ Attending Clinician Unavailable Jane Berkowitz Attending Clinician Michele LEBRON, Villa Cook Attending Clinician Unavailable BILL YOUSIF Attending Clinician Unavailable ROMINA VELAZQUEZ Attending Clinician [...] Attending Clinician Unavailable Claudia Hairston Attending Clinician AkinOsvaldo Lee Attending Clinician [phone] Provider, [facility] Attending Clinician Unavailable Graham Melara MD Attending Clinician JUAN COY Attending Clinician Unavailable ELEAZAR GIBBS Attending Clinician Unavailable Lab, Adc Fam Pob I Attending Clinician Unavailable Emerson PAC, Jemima S Attending Clinician Zbigniew DAVIS, Juan Attending Clinician Edwin AVIATION METALSMITH, Anna Jones Attending Clinician Caroline AVIATION METALSMITH, Romina Angeles Attending Clinician Sophie LEBRON, Yesenia Attending Clinician Unavailable Visit, FeiRmchp Nurse Attending Clinician Unavailable Faculty, Harvey Rodriguezchconchita Mfm Attending Clinician Unavailable Lauri DAVIS, Basia Narayan Attending Clinician Abisai DAVIS, Vidya Taylor Attending Clinician VIDYA DEAN Attending Clinician Unavailable Fellow, Christiano Colon Attending Clinician Unavailable Aaron Li MD Attending Clinician Thompson Sethi MD Attending Clinician Risk, Eoe-Cqgne-Uk/High Attending Clinician Unavailable George Tania NAVARRO Attending Clinician TANIA VAZQUEZ Attending Clinician Unavailable AARON LI Attending Clinician Unavailable AARON LI Attending Clinician Unavailable Leslye Demarco MD, Dio Attending Clinician [phone] Marta Pearson MD Attending Clinician NICHOLE REAL Attending Clinician Unavailable Alexander AVALOSP, Delma Attending Clinician Sailaja [facility], Crystal Franklin Attending Clinician Nichole Real MD Attending Clinician Ultrasound, FeiMfcarrillo Attending Clinician Unavailable Adelaida Philip MD Attending Clinician Efrem AVIATION METALSMITH, Sherry Attending Clinician ABIMBOLA GILL Attending Clinician Unavailable Bill DAVIS, Celena Attending Clinician Sameer Altamirano DO Attending Clinician Carla Alegre MD Attending Clinician DIO ABBOTT Attending Clinician Unavailable Darian Coley MD Attending Clinician Rehana ROBERTS, Marilee Robles Attending Clinician JAYY COONEY Attending Clinician Unavailable EDDIE HARRIS Attending Clinician Unavailable DAVY CRAWLEY Attending Clinician Unavailable RAFA HODGES Attending Clinician Unavailable TOMER CHACON Attending Clinician UnavailVIDYA Leonard Admitting Clinician Unavailable THOMPSON SETHI Admitting Clinician Unavailable DIO ABBOTT Admitting Clinician Unavailable ADELAIDA PHILIP Admitting Clinician Unavailable AARON LI Admitting Clinician Unavailable LATRICE EDUARDO Admitting Clinician Unavailable ABRAHAM CHAIDEZ Admitting Clinician Unavailable Jessica DAVIS, Abraham Admitting Clinician JANE HERNANDEZ Admitting Clinician Unavailable FAVIOLA ORTIZ Admitting Clinician Unavailable Nirav Lake MD Admitting Clinician Vidya Dean MD Admitting Clinician Thompson Sethi MD Admitting Clinician Leslye Demarco MD, Dio Admitting Clinician [phone] Nichole Real MD Admitting Clinician Adelaida Philip MD Admitting Clinician Aaron Li MD Admitting Clinician JAYY COONEY Admitting Clinician Unavailable EDDIE HARRIS Admitting Clinician Unavailable EDENILSON HANSEN Admitting Clinician Unavailable JOHNY SAM Admitting Clinician Unavailable TOMER CHACON Admitting Clinician Unavailtanvi ble Payers Payer Name Policy Type Policy Number Effective Date Expiration Date Anastasiya WINSLOW [id number] 2020 HEALTH 00:00:00 MEDICAID PENDING PENDING 2020 00:00:00 PHCS GENERIC [id number] 2018 2018 00:00:00 00:00:00 Problems Condition Condition Condition Status Onset Resolution Last Treating Co mments Source Name Details Category Date Date Treatment Clinician Date Vaginal Vaginal Disease Active Univers discharge discharge 6-28 ity of 00:00: [place] [facility] High risk High risk Disease Active Uni vers bisexual bisexual 6-28 ity of behavior behavior 00:00: [place] [facility] DKA, type DKA, type Disease Active Uni vers 1, not at 1, not at 4-18 ity of goal goal 00:00: [place] [facility] Chronic Chronic Disease Active Univers pain of pain of 4-01 ity of both knees [place] knees [place] Chronic Chronic Disease Active Univers pain of pain of 4-01 ity of both hips both hips [place] Tachycardi Tachycardi Disease Active U nivers a a 4-01 ity of 00:00: [place] [facility] Branch Hyperglyce Hyperglyce Disease Active U nivers pablo pablo 8-13 ity of 00:00: [place] [facility] Diabetic Diabetic Disease Active Unive rs gastropare gastropare 8-05 it y of sis sis 00:00: [place] [facility] Branch Screening Screening Disease Active Uni vers examinatio examinatio 4-14 it y of n for STD n for STD 00:00: [place] (sexually (sexually 00 [facility] ruben transmitte transmitte Br anch d disease) d disease) 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 4-14 ity of mellitus mellitus 00:00: [place] with with 00 Medical diabetic diabetic Branch autonomic autonomic neuropathy neuropathy Well woman Well woman Disease Active U nivers exam exam 3-24 ity of 00:00: [place] 00 Medical Branch Acute Acute Disease Active Univers blood loss blood loss 3-02 it y of anemia anemia 00:00: [place] [facility] Branch Diabetic Diabetic Disease Active Unive rs ketoacidos ketoacidos 2-01 it y of is without is without [place] coma coma 00 Medical associated associated Br anch with type with type 1 diabetes 1 diabetes mellitus mellitus Bipolar Bipolar Disease Active Univers disease disease 1-14 ity of during during 00:00: [place] , , 00 Me dical antepartum antepartum Br anch Dysuria Dysuria Disease Active Univers 1-06 ity of 00:00: Medical Branch Vaginal Vaginal Disease Active Univers itching itching 1-06 ity of 00:00: [facility] Vaginal Vaginal Disease Active 2019-08 Univers bleeding bleeding 0-22 ity of 00:00: [facility] Diabetic Diabetic Disease Active 2016-[facility] ketoac[facility] ketoacidos 1-15 [facility] k[facility] is without is without 00:00: Me dical coma coma 00 Center associated associated with with diabetes diabetes mellitus mellitus due to due to underlying underlying condition condition Dyspareuni Dyspareuni Disease Active 2016-08 U nivers a in a in 0-25 ity of female female 00:00: [place] [facility] Branch Diabetic Diabetic Disease Active 2016-08 [facility] ketoacidos ketoacidos 0-16 [facility] k[facility] is without is without 00:00: Me dical coma coma 00 Center associated associated with type with type 1 diabetes 1 diabetes mellitus mellitus History of History of Disease Active U nivers tubal tubal 9-12 ity of ligation ligation 00:00: [facility] Branch DKA, type DKA, type [...] different from the original. ICD10 Diagnosis Term Diet Supervisor Utility Allergies, Adverse Reactions, Alerts Allergy Allergy Status Severity Reaction(s) Onset Inactive Treating Comm ents Source Name Type Date Date Clinician CEPHALEX DRUG Active Hiv Univers IN INGREDI 04-09 ity of 00:00: Medical Branch Cephalex Propensi Active Hiv Univer s in ty to 04-09 ity of adverse 00:00: [place] reaction 00 Medical s Branch Tree Nut Propensi Active 2017- [facility] adverse [facility]: Medical reaction 00 Center s Onion Propensi Active Hives 2016- [facility]-16 [facility] adverse 00:00: Medical reaction 00 Center s ACETAMIN DRUG Active Low Rash 2017-0 Univers OPHEN-PA 9-05 ity of MABROM 00:00: [place] 00 Medical Branch PROMETHA DRUG Active Low Anxiety 2017-0 Univers ZINE INGREDI 9-05 ity of 00:00: [place] 00 Medical Branch Latex Propensi Active Rash 2017-[address] [facility] 9-05 [facility] adverse 00:00: Medical reaction 00 Center s Acetamin Propensi Active Rash 2017-[address] [facility] ophen-Pa ty to 9-05 mouth [facility] mabrom adverse 00:00: Medical reaction 00 Center s Prometha Propensi Active Anxiety 2017-0 Severe [facility] zine ty to 9-05 anxiety [facility] adverse 00:00: attacks Medical reaction 00 Center s PROMETHA DRUG Active Other-Cmnt Univ ers ZINE HCL INGREDI 01-29 ity of 00:00: [place] 00 Medical Branch LATEX DRUG Active Low Rash 2015- Univers INGREDI 6 ity of 00:00: [place] 00 Medical Branch Latex Propensi Active Rash 2015- Univers ty to 01-29 ity of adverse 00:00: [place] reaction 00 Medical s to Branch drug Prometha Propensi Active Other - See Anxiety Univers zine Hcl ty to comments 01-29 and chest ity of adverse 00:00: pressure [place] reaction 00 Medical s Branch MIDOL DRUG Active Med Other-Cmnt Univer s (IBUPROF 2-07 ity of EN) 00:00: [place] 00 Medical Branch Midol Propensi Active Other - See Pt Uni vers (Ibuprof ty to comments 2- reported ity of en) adverse 00:00: that her [place] reaction 00 mouth Medical s to gets Branch drug "itchy and swollen" when she takes Midol and Midol Teen. Dr. Guo notified. Sister insists that pt is only allergic to Midol, NOT ibuprofen . Social History Social Habit Start Date Stop Date Quantity Comments Source Exposure to 2022-04-05 2022-04-15 Not sure [facility] SARS-CoV-2 00:00:00 15:12:00 [facility] (event) Branch Alcohol intake 2017-06-17 2017-06-[address] [facility] es 00:00:00 00:00:00 non-drinker of Medical Ce nter alcohol (finding) Tobacco use and 2017-04-07 2017-04-[address] [facility] Linette kes exposure 00:00:00 00:00:00 Medical Center History of 2012-04-14 2015-04-14 Cigarette Smoker Universi ty of tobacco use 00:00:00 00:00:00 [facility] Sex Assigned At [address] Linette kes 00:00:00 00:00:00 [facility] Smoking Status Start Date Stop Date Source Ex-smoker 2017-04-14 00:00:00 2017-04-14 00:00:00 [facility] Medications Ordered Filled Start Stop Current Ordering Indication Dosage Frequency Signature Comments Components Source Medication Medication Date Date Medication? Clinician (SIG) Name Name insulin 2021-08 Yes [id number] 60U inject 60 Univers aspart 9101 Units ity of RAPID 00:00: under the [place] (NOVOLOG 00 skin in Medical U-100 the Branch INSULIN morning. ASPART) 100 unit/mL injection DULOXETINE Yes [id number] TAKE ONE Univers 20 mg 9-12 CAPSULE BY ity of capsule 00:00: MOUTH [place] 00 EVERY Medical MORNING Branch DULOXETINE 0 Yes [id number] TAKE ONE Univers 20 mg 9-12 CAPSULE BY ity of capsule 00:00: MOUTH [place] 00 EVERY Medical MORNING Branch DULOXETINE 0 Yes [id number] TAKE ONE Univers 20 mg 9-12 CAPSULE [...] a day ity of RAPID 00:00: before [place] (NOVOLOG 00 meals . Medical U-100 For use Branch INSULIN with ASPART) 100 Insulin unit/mL pump injection insulin 0 2021- No 15 units 3 Uni vers aspart 04-10 10- x a day ity of RAPID 00:00: 00:00 before [place] (NOVOLOG 00 :00 meals . Medical U-100 For use Branch INSULIN with ASPART) 100 Insulin unit/mL pump injection gabapentin 2021-0 Yes [id number] Take 1 cap Univers 100 mg 8-16 by mouth ity of capsule 00:00: at [place] [address] bedtime, Medical titrate Branch medication up to 3 caps by mouth three times a day gabapentin 2021-0 Yes [id number] Take 1 cap Univers 100 mg 8-16 by mouth ity of capsule 00:00: at [place] [address] bedtime, Medical titrate Branch medication up to 3 caps by mouth three times a day gabapentin 2021-0 Yes [id number] Take 1 cap Univers 100 mg 8-16 by mouth ity of capsule 00:00: at [place] [address] bedtime, Medical titrate Branch medication up to 3 caps by mouth three times a day gabapentin 2021-0 Yes [id number] Take 1 cap Univers 100 mg 8-16 by mouth ity of capsule 00:00: at [place] bedtime, Medical titrate Branch medication up to 3 caps by mouth three times a day gabapentin 2021-0 Yes [id number] Take 1 cap Univers 100 mg 8-16 by mouth ity of capsule 00:00: at [place] [address] bedtime, Medical titrate Branch medication up to 3 caps by mouth three times a day gabapentin 2021-0 Yes [id number] Take 1 cap Univers 100 mg 8-16 by mouth ity of capsule 00:00: at [place] [address] bedtime, Medical titrate Branch medication up to 3 caps by mouth three times a day DULoxetine 2021-0 2021- No [id number] 20mg Take 1 Univers 20 mg 8-15 -12 capsule by ity of capsule 00:00: 00:00 mouth in [place] 00 :00 the Medical morning. Branch rizatriptan 2021-0 Yes [id number] 10mg Take 1 U nivers (MAXALT) 10 7-29 tablet by ity of mg tablet 00:00: [place] 00 needed for Medical Migraine. Branch May repeat in 2 hours if needed, do not exceed daily recommende d dose rizatriptan 2021-0 Yes [id number] 10mg Take 1 U nivers (MAXALT) 10 7-29 tablet by ity of mg tablet 00:00: [place] 00 needed for Medical Migraine. Branch May repeat in 2 hours if needed, do not exceed daily recommende d dose rizatriptan 2021-0 Yes [id number] 10mg Take 1 U nivers (MAXALT) 10 7-29 tablet by ity of mg tablet 00:00: mouth [place] 00 needed for Medical Migraine. Branch May repeat in 2 hours if needed, do not exceed daily recommende d dose rizatriptan 2021-0 Yes [id number] 10mg Take 1 U nivers (MAXALT) 10 7-29 tablet by ity of mg tablet 00:00: mouth [place] 00 needed for Medical Migraine. Branch May repeat in 2 hours if needed, do not exceed daily recommende d dose rizatriptan 2021-0 Yes [id number] 10mg Take 1 U nivers (MAXALT) 10 7-29 tablet by ity of mg tablet 00:00: mouth [place] 00 needed for Medical Migraine. Branch May repeat in 2 hours if needed, do not exceed daily recommende d dose rizatriptan 2021-0 Yes [id number] 10mg Take 1 U nivers (MAXALT) 10 7-29 tablet by ity of mg tablet 00:00: mouth [place] 00 needed for Medical Migraine. Branch May repeat in 2 hours if needed, do not exceed daily recommende d dose meloxicam 2021-0 Yes [id number] 7.5mg Take 1 Univers 7.5 mg 7-08 tablet by ity of tablet 00:00: mouth once [place] 00 daily as Medical needed for Branch Pain (scale 7-10). meloxicam 2021-0 Yes [id number] 7.5mg Take 1 Univers 7.5 mg 7-08 tablet by ity of tablet 00:00: mouth once [place] 00 daily as Medical needed for Branch Pain (scale 7-10). meloxicam 2021-0 Yes [id number] 7.5mg Take 1 Univers 7.5 mg 7-08 tablet by ity of tablet 00:00: mouth once [place] 00 daily as Medical needed for Branch Pain (scale 7-10). meloxicam 2022-0 Yes [id number] 7.5mg Take 1 Univers 7.5 mg 7-08 tablet by ity of tablet 00:00: mouth once [place] 00 daily as Medical needed for Branch Pain (scale 7-10). meloxicam 2022-0 Yes [id number] 7.5mg Take 1 Univers 7.5 mg 7-08 tablet by ity of tablet 00:00: mouth once [place] 00 daily as Medical needed for Branch Pain (scale 7-10). meloxicam 2022-0 Yes [id number] 7.5mg Take 1 Univers 7.5 mg 7-08 tablet by ity of tablet 00:00: mouth once 00 daily as Medical needed for Branch Pain (scale 7-10). flash 2022-0 Yes [id number] 1{box} 1 Box Un bradly glucose 7-06 9101 every 14 ity of sensor 00:00: (fourteen) [place] (FREESTYLE 00 days. Medical DC 2 Branch SENSOR) Kit flash 2022-0 Yes [id number] 1{box} 1 Box Un bradly glucose 7-06 9101 every 14 ity of sensor 00:00: (fourteen) [place] (FREESTYLE 00 days. Medical DC 2 Branch SENSOR) Kit flash 2022-0 Yes [id number] 1{box} 1 Box Un bradly glucose 7-06 9101 every 14 ity of sensor 00:00: (fourteen) [place] (FREESTYLE 00 days. Medical DC 2 Branch SENSOR) Kit flash 2022-0 Yes [id number] 1{box} 1 Box Un bradly glucose 7-06 9101 every 14 ity of sensor 00:00: (fourteen) [place] (FREESTYLE 00 days. Medical DC 2 Branch SENSOR) Kit flash 2022-0 Yes [id number] 1{box} 1 Box Un bradly glucose 7-06 9101 every 14 ity of sensor 00:00: (fourteen) [place] (FREESTYLE 00 days. Medical DC 2 Branch SENSOR) Kit flash 2022-0 Yes [id number] 1{box} 1 Box Un bradly glucose 7-06 9101 every 14 ity of sensor 00:00: (fourteen) [place] (FREESTYLE 00 days. Medical DC 2 Branch SENSOR) Kit insulin 2021- No [id number] 15U inject 15 Univers aspart 7 09-08 9101 Units ity of U-100 00:00: 00:00 under the [place] (NOVOLOG 00 :00 skin 3 Medical FLEXPEN (three) Branch U-100 times INSULIN) daily 100 unit/mL before (3 mL) meals. injection flash Yes [id number] 1{box} 1 Box Unive rs glucose 4-25 daily. ity of scanning 00:00: [place] reader Medical (FREESTYLE Branch DC 2 READER) Misc insulin Yes [id number] 30U inject 30 U nivers degludec 4-25 Units ity of (TRESIBA 00:00: [place] FLEXTOUCH 00 skin at Medical U-100) 100 bedtime. Branc h unit/mL (3 mL) InPn flash Yes [id number] 1{box} 1 Box Unive rs glucose 4-25 daily. ity of scanning 00:00: [place] reader Medical (FREESTYLE Branch DC 2 READER) Misc insulin Yes [id number] 30U inject 30 U nivers degludec 4-25 Units ity of (TRESIBA 00:00: [place] FLEXTOUCH 00 skin at Medical U-100) 100 bedtime. Branc h unit/mL (3 mL) InPn flash 2021-0 Yes [id number] 1{box} 1 Box Unive rs glucose 4-25 daily. ity of scanning 00:00: [place] reader Medical (FREESTYLE Branch DC 2 READER) Misc insulin 0 Yes [id number] 30U inject 30 U nivers degludec 4-25 Units ity of (TRESIBA 00:00: [place] FLEXTOUCH 00 skin at Medical U-100) 100 bedtime. Branc h unit/mL (3 mL) InPn flash 2021-0 Yes [id number] 1{box} 1 Box Unive rs glucose 4-25 daily. ity of scanning 00:00: [place] reader Medical (FREESTYLE Branch DC 2 READER) Misc insulin 0 Yes [id number] 30U inject 30 U nivers degludec 4-25 Units ity of (TRESIBA 00:00: [place] FLEXTOUCH 00 skin at Medical U-100) 100 bedtime. Branc h unit/mL (3 mL) InPn flash Yes [id number] 1{box} 1 Box Unive rs glucose 4-25 daily. ity of scanning 00:00: [place] reader 00 Medical (FREESTYLE Branch DC 2 READER) Misc insulin Yes [id number] 30U inject 30 U nivers degludec 4-25 Units ity of (TRESIBA 00:00: [place] FLEXTOUCH 00 skin at Medical U-100) 100 bedtime. Branc h unit/mL (3 mL) InPn flash Yes [id number] 1{box} 1 Box Unive rs glucose 4-25 daily. ity of scanning 00:00: [place] reader 00 Medical (FREESTYLE Branch DC 2 READER) Misc insulin Yes [id number] 30U inject 30 U nivers degludec 4-25 Units ity of (TRESIBA 00:00: [place] FLEXTOUCH 00 skin at Medical U-100) 100 bedtime. Branc h unit/mL (3 mL) InPn pen needle, 2020-08 Yes [id number] 200{eac 200 Each 6 Univers diabetic 31 0-05 h} (six) ity of gauge x 00:00: times [place] 1/6" Ndle 00 daily. Medical Branch pen needle, 2020-08 Yes [id number] 200{eac 200 Each 6 Univers diabetic 31 0-05 h} (six) ity of gauge x 00:00: times [place] 1/6" Ndle 00 daily. Medical Branch pen needle, 2020-08 Yes [id number] 200{eac 200 Each 6 Univers diabetic 31 0-05 h} (six) ity of gauge x 00:00: times [place] 1/6" Ndle 00 daily. Medical Branch pen needle, 2020-08 Yes [id number] 200{eac 200 Each 6 Univers diabetic 31 0-05 h} (six) ity of gauge x 00:00: times [place] 1/6" Ndle 00 daily. Medical Branch pen needle, 2020-08 Yes [id number] 200{eac 200 Each 6 Univers diabetic 31 0-05 h} (six) ity of gauge x 00:00: times [place] 1/6" Ndle 00 daily. Medical Branch pen needle, 2020-08 Yes [id number] 200{eac 200 Each 6 Univers diabetic 31 0-05 h} (six) ity of gauge x 00:00: times [place] 1/6" Ndle 00 daily. Medical Branch Lancets 2019-08 Yes Patient to [facility] ers Misc 0-06 check ity of 00:00: blood [place] 00 sugar four Medical times Branch daily Lancets 2019-08 Yes Patient to [facility] ers Misc 0-06 check ity of 00:00: blood [place] 00 sugar four Medical times Branch daily Lancets 2019-08 Yes Patient to [facility] ers Misc 0-06 check ity of 00:00: blood [place] 00 sugar four Medical times Branch daily Lancets 2019-08 Yes Patient to [facility] Misc 0-06 check ity of 00:00: blood [place] 00 sugar four Medical times Branch daily Lancets 2019-08 Yes Patient to [facility] Misc 0-06 check ity of 00:00: blood [place] 00 sugar four Medical times Branch daily Lancets 2019-08 Yes Patient to [facility] Misc 0-06 check ity of 00:00: blood [...] ing tablet hours as needed for Nausea. medroxyPROG 2016-08 Yes 150mg Inject 150 [facility] (ZOFRAN-ODT -17 by mouth Luke s ) 4 MG [...] 100 evening. unit/mL (3 mL) InPn insulin 2016-08 Yes type 1 10U Inject [...] insulin Yes If [facility] regular 9-07 VM=[id number] [facility] (HUMULIN 00:00: , give Medical R,NOVOLIN 00 1unitIf Center R) 100 CW=640-996 unit/mL , give injection 2unitsIf GC=773-184 , give 4unitsIf HI=733-343 , give 6unitsIf FQ=901-457 , give 8units. insulin 2017-[address] [facility] regular 9-07 JG=863-967 [facility] (HUMULIN 00:00: , give Medical R,NOVOLIN 00 1unitIf Center R) 100 TG=439-586 unit/mL , give injection 2unitsIf OK=611-785 , give 4unitsIf HD=168-292 , give 6unitsIf QV=049-182 , give 8units. Immunizations Ordered Immunization Filled Immunization Date Status Commen ts Source Name Name Influenza Virus 2021-11-01 Completed Universit y of Vaccine Quad IM, 00:00:00 [place] [facility] dical Preserv and ABX Free Bran ch 6 MO-64 YRS Influenza Virus 2021-11-01 Completed Universit y of Vaccine 00:00:00 [facility] Influenza Virus 2021-11-01 Completed Universit y of Vaccine Quad IM, 00:00:00 [place] [facility] dical Preserv and ABX Free Bran ch 6 MO-64 YRS Influenza Virus 2021-11-01 Completed Universit y of Vaccine 00:00:00 [facility] Influenza Virus 2021-11-01 Completed Universit y of Vaccine Quad IM, 00:00:00 [place] [facility] dical Preserv and ABX Free Bran ch 6 MO-64 YRS Influenza Virus 2021-11-01 Completed Universit y of Vaccine 00:00:00 [facility] Influenza Virus 2021-11-01 Completed Universit y of Vaccine Quad IM, 00:00:00 [place] [facility] dical Preserv and ABX Free Bran ch 6 MO-64 YRS Influenza Virus 2021-11-01 Completed Universit y of Vaccine 00:00:00 [facility] [facility] Influenza Virus 2021-11-01 Completed Universit y of Vaccine Quad IM, 00:00:00 [facility] dical Preserv and ABX Free Bran ch 6 MO-64 YRS Influenza Virus 2021-11-01 Completed Universit y of Vaccine 00:00:00 [facility] Influenza Virus 2021-11-01 Completed Universit y of Vaccine Quad IM, 00:00:00 [facility] dical Preserv and ABX Free Bran ch 6 MO-64 YRS Influenza Virus 2021-11-01 Completed Universit y of Vaccine 00:00:00 [facility] SARS-COV-2 COVID-19 2020-11-10 Completed Unive rsity of PFIZER VACCINE 00:00:00 [facility] SARS-COV-2 COVID-19 2020-11-10 Completed Unive rsity of PFIZER VACCINE 00:00:00 [facility] SARS-COV-2 COVID-19 2020-11-10 Completed Unive rsity of PFIZER VACCINE 00:00:00 [facility] SARS-COV-2 COVID-19 2020-11-10 Completed Unive rsity of PFIZER VACCINE 00:00:00 [facility] SARS-COV-2 COVID-19 2020-11-10 Completed Unive rsity of PFIZER VACCINE 00:00:00 [facility] SARS-COV-2 COVID-19 2020-11-10 Completed Unive rsity of PFIZER VACCINE 00:00:00 [facility] SARS-COV-2 COVID-19 2020-10-20 Completed Unive rsity of PFIZER VACCINE 00:00:00 [facility] SARS-COV-2 COVID-19 2020-10-20 Completed Unive rsity of PFIZER VACCINE 00:00:00 [facility] SARS-COV-2 COVID-19 2020-10-20 Completed Unive rsity of PFIZER VACCINE 00:00:00 [facility] SARS-COV-2 COVID-19 2020-10-20 Completed Unive rsity of PFIZER VACCINE 00:00:00 [facility] SARS-COV-2 COVID-19 2020-10-20 Completed Unive rsity of PFIZER VACCINE 00:00:00 [facility] SARS-COV-2 COVID-19 2020-10-20 Completed Unive rsity of PFIZER VACCINE 00:00:00 [facility] TDAP 2020-09-13 Completed University of 00:00:00 [facility] TDAP 2020-09-13 Completed University of 00:00:00 [facility] TDAP 2020-09-13 Completed University of 00:00:00 [facility] TDAP 2020-09-13 Completed University of 00:00:00 [facility] TDAP 2020-09-13 Completed University of 00:00:00 [facility] TDAP 2020-09-13 Completed University of 00:00:00 [facility] Influenza Virus 2020-06-11 Completed Universit y of Vaccine Quad .5 mL 00:00:00 [facility] 6+ MO Branch Influenza Virus 2020-06-11 Completed Universit y of Vaccine Quad .5 mL 00:00:00 [facility] 6+ MO Branch Influenza Virus 2020-06-11 Completed Universit y of Vaccine Quad .5 mL 00:00:00 [facility] 6+ MO Branch Influenza Virus 2020-06-11 Completed Universit y of Vaccine Quad .5 mL 00:00:00 [facility] 6+ MO Branch Influenza Virus 2020-06-11 Completed Universit y of Vaccine Quad .5 mL 00:00:00 [facility] 6+ MO Branch Influenza Virus 2020-06-11 Completed Universit y of Vaccine Quad .5 mL 00:00:00 [facility] 6+ MO Branch HPV9 2017-07-14 Completed University of 00:00:00 [facility] HPV9 2017-07-14 Completed University of 00:00:00 [facility] HPV9 2017-07-14 Completed University of 00:00:00 [facility] HPV9 2017-07-14 Completed University of 00:00:00 [facility] HPV9 2017-07-14 Completed University of 00:00:00 [facility] HPV9 2017-07-14 Completed University of 00:00:00 [facility] Influenza Virus 2017-05-18 Completed Universit y of Vaccine (3+ yrs) 00:00:00 [facility] Influenza Virus 2017-05-18 Completed Universit y of Vaccine (3+ yrs) 00:00:00 [facility] Influenza Virus 2017-05-18 Completed Universit y of Vaccine (3+ yrs) 00:00:00 [facility] Influenza Virus 2017-05-18 Completed Universit y of Vaccine (3+ yrs) 00:00:00 [facility] Influenza Virus 2017-05-18 Completed Universit y of Vaccine (3+ yrs) 00:00:00 [facility] Influenza Virus 2017-05-18 Completed Universit y of Vaccine (3+ yrs) 00:00:00 [facility] Influenza Three-TIV 2017-05-18 Completed [facility] 5+ YR 00:00:00 [facility] Influenza Three-TIV 2017-05-18 Completed [facility] 5[facility] HPV9 2017-04-14 Completed University of 00:00:00 [facility] TDAP (ADACEL) 2017-04-14 Completed University of VACCINE 00:00:00 [facility] HPV9 2017-04-14 Completed University of 00:00:00 [facility] TDAP (ADACEL) 2017-04-14 Completed University of VACCINE 00:00:00 [facility] HPV9 2017-04-14 Completed University of 00:00:00 [facility] TDAP (ADACEL) 2017-04-14 Completed University of VACCINE 00:00:00 [facility] HPV9 2017-04-14 Completed University of 00:00:00 [facility] TDAP (ADACEL) 2017-04-14 Completed University of VACCINE 00:00:00 [facility] HPV9 2017-04-14 Completed University of 00:00:00 [facility] TDAP (ADACEL) 2017-04-14 Completed University of VACCINE 00:00:00 [facility] HPV9 2017-04-14 Completed University of 00:00:00 [facility] TDAP (ADACEL) 2017-04-14 Completed University of VACCINE 00:00:00 [facility] TDAP 2015-12-27 Completed University of 00:00:00 [facility] TDAP 2015-12-27 Completed University of 00:00:00 [facility] TDAP 2015-12-27 Completed University of 00:00:00 [facility] TDAP 2015-12-27 Completed University of 00:00:00 [facility] TDAP 2015-12-27 Completed University of 00:00:00 [facility] TDAP 2015-12-27 Completed University of 00:00:00 [facility] Influenza Virus 2015-09-07 Completed Universit y of Vaccine Quad IM 3+ 00:00:00 [facility] Influenza Virus 2015-09-07 Completed Universit y of Vaccine Quad IM 3+ 00:00:00 [facility] Influenza Virus 2015-09-07 Completed Universit y of Vaccine Quad IM 3+ 00:00:00 [facility] Influenza Virus 2015-09-07 Completed Universit y of Vaccine Quad IM 3+ 00:00:00 [facility] Influenza Virus 2015-09-07 Completed Universit y of Vaccine Quad IM 3+ 00:00:00 [facility] Influenza Virus 2015-09-07 Completed Universit y of Vaccine Quad IM 3+ 00:00:00 [facility] Branch HPV 2015-01-24 Completed University of 00:00:00 [facility] HPV 2015-01-24 Completed University of 00:00:00 [facility] HPV 2015-01-24 Completed University of 00:00:00 [facility] HPV 2015-01-24 Completed University of 00:00:00 [facility] HPV 2015-01-24 Completed University of 00:00:00 [facility] HPV 2015-01-24 Completed University of 00:00:00 [facility] Pneumococcal 13 2014-07-20 Completed Universit y of Conjugate, PCV13 00:00:00 [facility] dical (Prevnar 13) Branch Pneumococcal 13 2014-07-20 Completed Universit y of Conjugate, PCV13 00:00:00 [facility] dical (Prevnar 13) Branch Pneumococcal 13 2014-07-20 Completed Universit y of Conjugate, PCV13 00:00:00 [facility] dical (Prevnar 13) Branch Pneumococcal 13 2014-07-20 Completed Universit y of Conjugate, PCV13 00:00:00 [facility] dical (Prevnar 13) Branch Pneumococcal 13 2014-07-20 Completed Universit y of Conjugate, PCV13 00:00:00 [facility] dical (Prevnar 13) Branch Pneumococcal 13 2014-07-20 Completed Universit y of Conjugate, PCV13 00:00:00 [facility] dical (Prevnar 13) Branch Meningococcal 2010-06-06 Completed University of Vaccine 00:00:00 [facility] TDAP 2010-06-06 Completed University of 00:00:00 [facility] Meningococcal 2010-06-06 Completed University of Vaccine 00:00:00 [facility] TDAP 2010-06-06 Completed University of 00:00:00 [facility] Meningococcal 2010-06-06 Completed University of Vaccine 00:00:00 [facility] TDAP 2010-06-06 Completed University of 00:00:00 [facility] Meningococcal 2010-06-06 Completed University of Vaccine 00:00:00 [facility] TDAP 2010-06-06 Completed University of 00:00:00 [facility] Meningococcal 2010-06-06 Completed University of Vaccine 00:00:00 [facility] TDAP 2010-06-06 Completed University of 00:00:00 [facility] Meningococcal 2010-06-06 Completed University of Vaccine 00:00:00 [facility] TDAP 2010-06-06 Completed University of 00:00:00 [facility] Varicella 2008-03-09 Completed University of (varivax)(chicken [...] HEPATITIS A 2006-03-09 Completed University of 00:00:00 [facility] HEPATITIS A 2006-03-09 Completed University of 00:00:00 [facility] HEPATITIS A 2006-03-09 Completed University of 00:00:00 [facility] HEPATITIS A 2006-03-09 Completed University of 00:00:00 [facility] HEPATITIS A 2006-03-09 Completed University of 00:00:00 [facility] HEPATITIS A 2006-03-09 Completed University of 00:00:00 [facility] HEPATITIS A 2005-05-22 Completed University of 00:00:00 [facility] Hep B, Adol or Pedi 2005-05-22 Completed Unive rsity of Dosage 00:00:00 [facility] Polio (IPV/OPV) 2005-05-22 Completed Universit y of 00:00:00 [facility] Td 2005-05-22 Completed University of 00:00:00 [facility] HEPATITIS A 2005-05-22 Completed University of 00:00:00 [facility] Hep B, Adol or Pedi 2005-05-22 Completed Unive rsity of Dosage 00:00:00 [facility] Polio (IPV/OPV) 2005-05-22 Completed Universit y of 00:00:00 [facility] Td 2005-05-22 Completed University of 00:00:00 [facility] HEPATITIS A 2005-05-22 Completed University of 00:00:00 [facility] Hep B, Adol or Pedi 2005-05-22 Completed Unive rsity of Dosage 00:00:00 [facility] Polio (IPV/OPV) 2005-05-22 Completed Universit y of 00:00:00 [facility] Td 2005-05-22 Completed University of 00:00:00 [facility] HEPATITIS A 2005-05-22 Completed University of 00:00:00 [facility] Hep B, Adol or Pedi 2005-05-22 Completed Unive rsity of Dosage 00:00:00 [facility] Polio (IPV/OPV) 2005-05-22 Completed Universit y of 00:00:00 [facility] Td 2005-05-22 Completed University of 00:00:00 [facility] HEPATITIS A 2005-05-22 Completed University of 00:00:00 [facility] Hep B, Adol or Pedi 2005-05-22 Completed Unive rsity of Dosage 00:00:00 [facility] Polio (IPV/OPV) 2005-05-22 Completed Universit y of 00:00:00 [facility] Td 2005-05-22 Completed University of 00:00:00 [facility] HEPATITIS A 2005-05-22 Completed University of 00:00:00 [facility] Hep B, Adol or Pedi 2005-05-22 Completed Unive rsity of Dosage 00:00:00 [facility] Polio (IPV/OPV) 2005-05-22 Completed Universit y of 00:00:00 [facility] Td 2005-05-22 Completed University of 00:00:00 [facility] DTAP 2005-01-14 Completed University of 00:00:00 [facility] Hep B, Adol or Pedi 2005-01-14 Completed Unive rsity of Dosage 00:00:00 [facility] MMR 2005-01-14 Completed University of 00:00:00 [facility] Polio (IPV/OPV) 2005-01-14 Completed Universit y of 00:00:00 [facility] DTAP 2005-01-14 Completed University of 00:00:00 [facility] Hep B, Adol or Pedi 2005-01-14 Completed Unive rsity of Dosage 00:00:00 [facility] MMR 2005-01-14 Completed University of 00:00:00 [facility] Polio (IPV/OPV) 2005-01-14 Completed Universit y of 00:00:00 [facility] DTAP 2005-01-14 Completed University of 00:00:00 [facility] Hep B, Adol or Pedi 2005-01-14 Completed Unive rsity of Dosage 00:00:00 [facility] MMR 2005-01-14 Completed University of 00:00:00 [facility] Polio (IPV/OPV) 2005-01-14 Completed Universit y of 00:00:00 [facility] DTAP 2005-01-14 Completed University of 00:00:00 [facility] Hep B, Adol or Pedi 2005-01-14 Completed Unive rsity of Dosage 00:00:00 [facility] MMR 2005-01-14 Completed University of 00:00:00 [facility] Polio (IPV/OPV) 2005-01-14 Completed Universit y of 00:00:00 [facility] DTAP 2005-01-14 Completed University of 00:00:00 [facility] Hep B, Adol or Pedi 2005-01-14 Completed Unive rsity of Dosage 00:00:00 [facility] MMR 2005-01-14 Completed University of 00:00:00 [facility] Polio (IPV/OPV) 2005-01-14 Completed Universit y of 00:00:00 [facility] DTAP 2005-01-14 Completed University of 00:00:00 [facility] Hep B, Adol or Pedi 2005-01-14 Completed Unive rsity of Dosage 00:00:00 [facility] MMR 2005-01-14 Completed University of 00:00:00 [facility] Polio (IPV/OPV) 2005-01-14 Completed Universit y of 00:00:00 [facility] DTAP 2004-03-12 Completed University of 00:00:00 [facility] Hep B, Adol or Pedi 2004-03-12 Completed Unive rsity of Dosage 00:00:00 [facility] Polio (IPV/OPV) 2004-03-12 Completed Universit y of 00:00:00 [facility] DTAP 2004-03-12 Completed University of 00:00:00 [facility] Hep B, Adol or Pedi 2004-03-12 Completed Unive rsity of Dosage 00:00:00 [facility] Polio (IPV/OPV) 2004-03-12 Completed Universit y of 00:00:00 [facility] DTAP 2004-03-12 Completed University of 00:00:00 [facility] Hep B, Adol or Pedi 2004-03-12 Completed Unive rsity of Dosage 00:00:00 [facility] Polio (IPV/OPV) 2004-03-12 Completed Universit y of 00:00:00 [facility] DTAP 2004-03-12 Completed University of 00:00:00 [facility] Hep B, Adol or Pedi 2004-03-12 Completed Unive rsity of Dosage 00:00:00 [facility] Polio (IPV/OPV) 2004-03-12 Completed Universit y of 00:00:00 [facility] DTAP 2004-03-12 Completed University of 00:00:00 [facility] Hep B, Adol or Pedi 2004-03-12 Completed Unive rsity of Dosage 00:00:00 [facility] Polio (IPV/OPV) 2004-03-12 Completed Universit y of 00:00:00 [facility] DTAP 2004-03-12 Completed University of 00:00:00 [facility] Hep B, Adol or Pedi 2004-03-12 Completed Unive rsity of Dosage 00:00:00 [facility] Polio (IPV/OPV) 2004-03-12 Completed Universit y of 00:00:00 [facility] MMR 2004-03-11 Completed University of 00:00:00 [facility] Varicella 2004-03-11 Completed University of (varivax)(chicken 00:00:00 [place] [facility] pox) [facility] MMR 2004-03-11 Completed University of 00:00:00 [facility] Varicella 2004-03-11 Completed University of (varivax)(chicken 00:00:00 [place] [facility] pox) [facility] MMR 2004-03-11 Completed University of 00:00:00 [facility] Varicella 2004-03-11 Completed University of (varivax)(chicken 00:00:00 [place] [facility] pox) [facility] MMR 2004-03-11 Completed University of 00:00:00 [facility] Varicella 2004-03-11 Completed University of (varivax)(chicken 00:00:00 [place] [facility] pox) [facility] MMR 2004-03-11 Completed University of 00:00:00 [facility] Varicella 2004-03-11 Completed University of (varivax)(chicken 00:00:00 [place] [facility] pox) [facility] MMR 2004-03-11 Completed University of 00:00:00 [facility] Varicella 2004-03-11 Completed University of (varivax)(chicken 00:00:00 [place] [facility] pox) [facility] HEPATITIS A 2000-02-21 Completed University of 00:00:00 [facility] Varicella 2000-02-21 Completed University of (varivax)(chicken 00:00:00 [place] [facility] pox) [facility] HEPATITIS A 2000-02-21 Completed University of 00:00:00 [facility] Varicella 2000-02-21 Completed University of (varivax)(chicken 00:00:00 [place] [facility] pox) [facility] HEPATITIS A 2000-02-21 Completed University of 00:00:00 [facility] Varicella 2000-02-21 Completed University of (varivax)(chicken 00:00:00 [place] [facility] pox) [facility] HEPATITIS A 2000-02-21 Completed University of 00:00:00 [facility] Varicella 2000-02-21 Completed University of (varivax)(chicken 00:00:00 [place] [facility] pox) [facility] HEPATITIS A 2000-02-21 Completed University of 00:00:00 [facility] Varicella 2000-02-21 Completed University of (varivax)(chicken 00:00:00 [place] [facility] pox) [facility] HEPATITIS A 2000-02-21 Completed University of 00:00:00 [facility] Varicella 2000-02-21 Completed University of (varivax)(chicken [...] (varivax)(chicken 00:00:00 [place] [facility] pox) [facility] Procedures Procedure Date / Time Performing Clinician Source Performed DME/SUPPLY JUSTIFICATION 2022-04-08 05:01:00 Doctor Unassigned, No [facility] DME/SUPPLY JUSTIFICATION 2022-03-24 05:01:00 Doctor Unassigned, No [facility] Encounters Start End Encounter Admission Attending Care Care Encounter Source Date/Time Date/Time Type Type Clinicians Facility Department ID 2021-06-03 Emergency [facility] [id number] Univers 15:14:34 ity of [facility] 2021-06-03 Emergency [facility] [id number] Univers 12:37:06 ity of [facility] 2021-06-03 Emergency [facility] [id number] Univers 10:07:04 ity of [facility] 2021-06-03 Emergency [facility] [id number] Univers 02:22:48 ity of [facility] 2021-06-02 Emergency [facility] [id number] Univers 12:07:03 ity of [facility] 2021-06-02 [id number] Univers 10:34:21 ity of [facility] 2021-06-02 Outpatient P [facility] DEN[facility] [id number] Univers 01:58:31 ity of [facility] 2021-06-02 Outpatient P [facility] DEN[facility] [id number] Univers 00:14:42 ity of [facility] 2021-06-01 Outpatient P [facility] DENISE [id number] Univers 22:21:09 ity of [facility] 2021-06-01 [facility] [id number] Univers 20:51:29 ity of [facility] 2021-06-01 [facility] [id number] Univers 20:49:21 ity of [facility] 2021-06-01 [facility] [id number] Univers 15:53:16 ity of [facility] 2021-06-01 Outpatient P [facility] DENISE [id number] Univers 15:31:42 ity of [facility] 2021-06-01 Outpatient P [facility] DEN[facility] [id number] Univers 12:20:05 ity of [facility] 2021-06-01 Emergency [facility] [id number] Univers 04:48:52 ity of [facility] 2021-06-01 Outpatient P [facility] DENISE [id number] Univers 01:06:52 ity of [facility] 2021-06-01 Outpatient [facility] [id number] Univers 00:36:46 ity of [facility] 2021-05-31 Emergency [facility] [id number] Univers 23:01:42 ity of [facility] 2021-05-31 Emergency [facility] [id number] Univers 16:03:19 ity of [facility] 2021-05-31 Emergency [facility] [id number] Univers 00:16:05 ity [facility] 2022-07-09 2022-07-09 Outpatient R CARLIE WEBSTER [facility] [id number] Univers 15:30:00 15:30:00 [facility] 2022-05-16 [facility] [id number] Univers 09:30:00 09:30:00 RAUL itshira [facility] 2022-05-08 2022-05-08 Patient Carlei [facility] [id number] Univers 00:00:00 00:00:00 Secure Msg PRIMARY [id number] [id number] [facility] [id number] [address] 2022-05-05 2022-05-05 Telephone Carlie [facility] [id number] Univers 00:00:00 00:00:00 HEALTH [id number] it y of [place] [id number] [place]?BLEA [id number] [address] MEDICAL OFFICE BUILDING 2022-04-25 2022-04-25 Outpatient Rosalva HAMMOND [facility] [id number] Univers 16:00:00 16:00:00 RAULGUS cole [facility] 2022-04-21 2022-04-21 Outpatient Rosalva HAMMOND [facility] [id number] Univers 09:30:00 09:30:00 RAUL ity [facility] 2022-04-15 2022-04-15 [facility] [id number] Univers 12:12:00 15:19:00 AMALIA cole [facility] 2022-04-15 2022-04-15 [facility] [id number] Univers 12:12:00 15:19:00 [facility] [id number] i ty [id number] [id number] [facility] [address] [place] 2022-04-12 2022-04-12 [facility] [id number] Univers 00:00:00 00:00:00 [facility] [id number] ity [facility] [id number] [place]?BLEA [phone] [place] [address] MEDICAL OFFICE BUILDING 2022-04-11 2022-04-11 Outpatient R MANISH [facility] [id number] Univers 09:00:00 09:00:00 RAUL cole [facility] 2022-04-11 2022-04-11 [facility] [id number] Univers 09:00:00 09:00:00 RAUL cole [facility] 2022-04-10 2022-04-10 Shelton Sexton [facility] [id number] Univers 00:00:00 00:00:00 PRIMARY [id number] it y of [facility] [id number] [facility] [id number] [place] [address] [place] 2022-04-09 2022-04-09 Outpatient R ELEANOR SEXTON [facility] [id number] Univers 09:00:00 09:00:00 ELEANOR SEXTON [facility] 2022-04-09 2022-04-09 Outpatient R ELEANOR SEXTON [facility] [id number] Univers 09:00:00 09:00:00 ELEANOR SEXTON [facility] 2022-04-09 2022-04-09 Outpatient R ELEANOR SEXTON [facility] [id number] Univers 09:00:00 09:00:00 CARLIEELEANOR Jama edelshira [facility] 2022-04-09 2022-04-09 Outpatient R ELEANOR SEXTON [facility] [id number] Univers 09:00:00 09:00:00 CARLIE ELEANOR cole [facility] 2022-04-08 2022-04-08 Patient Carlie [facility] [id number] Univers 00:00:00 00:00:00 Secure Msg PRIMARY 350.1.13.10 it[place] of [place] [id number] [address] 2022-04-08 2022-04-08 Orders Doctor VIDYA 1.2.840.114 [id number] Univers 00:00:00 00:00:00 Only Unassigned, MARIA ELENA 350.1.13.10 ity of [facility] 4.2.7.2.686 [place] as [phone] [address] 2022-03-24 2022-03-24 Telephone Eleanor Sexton [facility] 1.2.845.020 [id number] Univers 00:00:00 00:00:00 HEALTH 350.1.13.10 it y of [place] 4.2.7.2.686 [place] NORRIS?BLEA [phone] [address] MEDICAL OFFICE BUILDING 2022-03-24 2022-03-24 Orders Doctor VIDYA 1.2.840.114 [id number] Univers 00:00:00 00:00:00 Only Unassigned, MARIA ELENA 350.1.13.10 ity of [facility] 4.2.7.2.686 [place] as [phone] [address] 2022-03-21 2022-03-21 Telephone Eleanor Sexton [facility] 1.2.825.690 [id number] Univers 00:00:00 00:00:00 PRIMARY 350.1.13.10 it y of [place] [id number] [address] 2022-03-20 2022-03-20 Patient Doctor [facility] 1.2.840.114 [id number] Univers 00:00:00 00:00:00 Secure Msg Unassigned, HEALTH 350.1.13.10 ity of [place] 4.2.7.2.686 [place] NORRIS?BLEA [id number] [address] MEDICAL OFFICE [facility] 2022-03-19 2022-03-19 Outpatient R MOHINDER, [facility] [id number] Univers 13:00:00 13:00:00 MARITZA ity [facility] 2022-03-18 2022-03-18 [facility] 1.2.573.450 [id number] Univers 00:00:00 00:00:00 [place] HEALTH 350.1.13.10 ity of [place] 4.2.7.2.686 [place] NORRIS?BLEA [phone] [address] OFFICE [facility] 2022-03-18 2022-03-18 Patient Doctor [facility] 1.2.840.114 [id number] Univers 00:00:00 00:00:00 Secure Msg Unassigned, HEALTH 350.1.13.10 ity of [place] 4.2.7.2.686 [place] NORRIS?BLEA [phone] [address] OFFICE [facility] 2022-03-17 2022-03-17 Outpatient R CHIP [facility] [id number] Univers 08:40:00 09:07:30 JACQUI ity [facility] 2022-03-17 2022-03-17 [facility] 1.2.840.114 [id number] Univers 08:40:00 09:07:30 Visit [facility] 350.1.13.10 ity of [place] 4.2.7.2.686 [place] NORRIS?BLEA [id number] [address] OFFICE [facility] 2022-03-13 2022-03-13 Outpatient R CARLITOS [facility] [id number] Univers 19:40:00 20:20:46 TIEN ity [facility] 2022-03-13 2022-03-13 Urgent GreenBill [facility] 1.2.840.114 [id number] Univers 19:40:00 20:20:46 Care Tien Mancuso HEALTH 350.1.13.10 ity of [place] 4.2.7.2.686 [place] NORRIS?BLEA [id number] [facility] [address] [place] MEDICAL OFFICE [facility] 2022-03-13 2022-03-13 Outpatient R CARLITOS [facility] [id number] Univers 19:40:00 20:20:46 TIEN [facility] 2022-03-12 2022-03-12 [facility] [id number] Univers 13:00:00 13:00:00 MARITZA [facility] 2022-03-06 2022-03-06 Outpatient [facility] [id number] Univers 13:00:00 13:00:00 [facility] 2022-02-28 2022-02-28 Telephone Manish [facility] 1.2.031.073 [id number] Univers 00:00:00 00:00:00 Raul HEALTH 350.1.13.10 it y of [place] 4.2.7.2.686 [place] NORRIS?BLEA [id number] [facility] [address] [place] MEDICAL OFFICE [facility] 2022-02-27 2022-02-27 Telephone Lore DASILVA 1.2.059.406 [id number] Univers 00:00:00 00:00:00 MARIA ELENA Mccurdy 350.1.13.10 ity [facility] 4.2.7.2.686 [place] as [phone] [facility] [address] [place] 2022-02-27 2022-02-27 Patient Eleanor Sexton [facility] 1.2.840.114 [id number] Univers 00:00:00 00:00:00 Secure Msg PRIMARY 350.1.13.10 ity of [facility] 4.2.7.2.[place] [id number] [facility] [address] [place] 2022-02-26 2022-02-26 Laboratory Only, Ang Db Test [facility] 1.2.8 40.114 [id number] Univers 13:30:00 13:45:00 Only Manda Cedeño HEALTH 350.1.13.10 ity [facility] 4.2.7.2.686 [place] NORRIS?BLEA [id number] [facility] [address] [place] MEDICAL OFFICE [facility] 2022-02-26 2022-02-26 Outpatient R DAVIDSON [facility] [id number] Univers 13:30:00 13:30:00 MANDA ity [facility] 2022-02-23 2022-02-23 Telephone Eleanor Sexton [facility] 1.2.682.737 [id number] Univers 00:00:00 00:00:00 HEALTH 350.1.13.10 it y [facility] 4.2.7.2.686 [place] NORRIS?BLEA [phone] [facility] [address] [facility] OFFICE [facility] 2022-02-19 2022-02-19 Telephone Annette Moon 1..840.114 [id number] Univers 00:00:00 00:00:00 MARIA ELENA 350.1.13.10 it y of [facility] 4.2.7.2.686 [place] as [phone] [address] 2022-02-18 2022-02-18 Laboratory Only, Ang Db Test [facility] 1.2.8 40.114 [id number] Univers 19:30:00 19:45:00 Only Dustin Nichols HEALTH 350.1.13.10 ity of [place] 4.2.7.2.686 [place] NORRIS?BLEA [id number] [facility] [address] [facility] OFFICE [facility] 2022-02-18 2022-02-18 Outpatient R SIMONE [facility] [id number] Univers 19:30:00 19:30:00 DUSTIN edely o f [facility] 2022-02-18 2022-02-18 Outpatient R SIMONE [facility] [id number] Univers 19:30:00 19:30:00 DUSTIN ity o f [facility] 2022-02-17 2022-02-17 Ancillary Abraham Marcos [facility] 1.2.840. 114 [id number] Univers 09:15:00 10:15:00 Visit Marcella Casey 350.1.13.10 [place] of [place] [phone] Co dical NAL [address] [facility] 2022-02-17 2022-02-17 Outpatient [facility] [id number] Univers 09:15:00 09:15:00 MARCELLA ity [facility] 2022-02-17 2022-02-17 Orders Doctor VIDYA 1.2.840.114 [id number] Univers 00:00:00 00:00:00 Only Unassigned, MARIA ELENA 350.1.13.10 ity of [place] [facility] 4.2.7.2.686 [place] [phone] [facility] [address] [place] 2022-02-14 2022-02-14 Outpatient [facility] [id number] Univers 19:40:00 19:40:00 RANIA ity [facility] 2022-02-07 2022-02-[address] [facility] [id number] Univers 13:32:04 23:59:00 KATIE ity [facility] 2022-02-07 2022-02-[address] [facility] [id number] Univers 13:32:04 23:59:00 KATIE ity [facility] 2022-02-07 2022-02-07 [facility] 1.2.840.114 [id number] Univers 13:32:04 23:59:00 Encounter Katie PRIMARY 350.1.13.10 it[place] of [place] [id number] Co dical [address] [place] 2022-02-07 2022-02-07 Office [facility] 1.2.778.907 [id number] Univers 13:20:00 14:22:34 Visit Katie PRIMARY 350.1.13.10 it y of [place] [id number] Co dical [address] 2022-02-07 2022-02-07 Outpatient R FAY [facility] [id number] Univers 13:20:00 14:22:34 KATIE kelsey [facility] 2022-02-05 2022-02-05 Office Carlie [facility] 1.2.840.114 [id number] Univers 14:30:00 16:45:20 Visit HEALTH 350.1.13.10 it y of [place] 4.2.7.2.686 [place] NORRIS?BLEA [phone] Co luisana [address] MEDICAL OFFICE BUILDING 2022-02-05 2022-02-05 Outpatient R ELEANOR SEXTON [facility] [id number] Univers 14:30:00 16:45:20 ELEANOR SEXTON shira [facility] 2022-02-05 2022-02-05 Outpatient R CARLIE [facility] [id number] Univers 14:30:00 14:30:00 CARLIEELEANOR [facility] 2022-01-29 2022-01-29 Case [facility] 1.2.840.114 [id number] Univers 00:00:00 00:00:00 Management Cheraden AVENDAÑO 350.1.13.10 ity of PEDIATRIC 4.2.7.2.[address] [facility] [phone] [address] 2022-01-29 2022-01-29 [facility] 1.2.840.114 [id number] Univers 00:00:00 00:00:00 Management Radhaaden KATERYNA 350.1.13.10 ity of PEDIATRIC 4.2.7.2.686 [place] [facility] [id number] [address] 2022-01-27 2022-01-27 Emergency [facility] [id number] Univers 17:09:00 18:50:00 RADHA cole [facility] 2022-01-27 2022-01-27 Emergency [facility] 1.2.840.114 [id number] Univers 17:09:00 18:50:00 Radha MURCIA 350.1.13.10 ity of [facility] 4.2.7.2.686 [facility] [id number] [place] [address] 2022-01-27 2022-01-27 Emergency X BRADY, [facility] ERT [id number] Univers 17:09:00 18:50:00 RADHA cole [facility] 2022-01-27 2022-01-27 Outpatient R SONAL CHAO [facility] B [id number] Univers 14:00:00 15:19:34 ZHANNA SONAL cole [facility] 2022-01-27 2022-01-27 Office [facility] 1.2.840.114 [id number] Univers 14:00:00 15:19:34 Visit Sonal KATERYNA 350.1.13.10 it y of [place] [id number] [facility] [address] 2022-01-16 2022-01-16 [facility] 1.2.840.114 [id number] Univers 00:00:00 00:00:00 Hopkins A HEALTH 350.1.13.10 ity of SPECIALTY 4.2.7.2.686 [facility] [id number] [place] [facility] [address] 2022-01-14 2022-01-14 Outpatient R ERIS [facility] [id number] Univers 14:45:00 14:45:00 OSVALDO hollingsworthy o f [facility] 2022-01-14 2022-01-14 Telephone [facility] 1.2.309.425 [id number] Univers 00:00:00 00:00:00 Latrice MURCIA 350.1.13.10 it[place] of [place].2.[place] [id number] Co dical NAL [address] BUILDING 2022-01-08 2022-01-08 Outpatient Rosalva FINLEY [facility] [id number] Univers 09:00:00 09:00:00 JUSTINA ity o f [facility] 2022-01-08 2022-01-08 Outpatient Rosalva FINLEY [facility] [id number] Univers 09:00:00 09:00:00 JUSTINA ity o f [facility] 2022-01-08 2022-01-08 Outpatient R MALIA [facility] [id number] Univers 09:00:00 09:00:00 PAMELA cole o f [facility] 2022-01-01 2022-01-01 Outpatient R ELEANOR SEXTON [facility] [id number] Univers 08:30:00 08:30:00 ELEANOR SEXTON [facility] 2021-12-23 2021-12-23 Custodial Aide Lab, Ang - Db [facility] 1.2.840.1 14 [id number] Univers 12:00:00 12:15:00 Visit Raul Hammond 350.1.13.10 ity of [place] 4.2.7.2.686 [place] NORRIS?BLEA [id number] [facility] [address] [facility] OFFICE [facility] 2021-12-23 2021-12-23 Outpatient R MANISH [facility] [id number] Univers 11:30:00 12:02:04 RAUL cole [facility] 2021-12-23 2021-12-23 Office [facility] 1.2.840.114 [id number] Univers 11:30:00 12:02:04 Visit Raul [facility] 350.1.13.10 it y of [place] 4.2.7.2.686 [place] NORRIS?BLEA [id number] [address] MEDICAL OFFICE [facility] 2021-12-23 2021-12-23 Outpatient R MANISH [facility] [id number] Univers 11:30:00 12:02:04 RAUL kelsey [facility] 2021-12-19 2021-12-19 Outpatient R FINLEY [facility] [id number] Univers 09:00:00 10:06:45 LENORASTEPHANIETanvi cole o elkin [facility] 2021-12-19 2021-12-19 Office [facility] 1.2.840.114 [id number] Univers 09:00:00 10:06:45 Visit Pamela R MACHINE MARKER 350.1.13.10 ity of [facility] 4.2.7.2.686 [place] as MATERNAL [id number] Med ical & CHILD [address] [place] [address] 2021-12-18 2021-12-18 Outpatient Rosalva EDUARDO [facility] [id number] Univers 11:00:00 11:00:00 LATRICE shira [facility] 2021-12-05 2021-12-05 Outpatient Rosalva AWANGAIL [facility] [id number] Univers 15:00:00 15:00:00 JUNITO cole [facility] 2021-12-05 2021-12-05 Outpatient Rosalva AWANGAIL [facility] [id number] Univers 15:00:00 15:00:00 JUNITO cole [facility] 2021-12-04 2021-12-04 Outpatient COREY QUINTEROS [facility] [id number] Univers 00:00:00 00:00:00 COREY DURAN [facility] 2021-12-04 2021-12-04 Refill Sánchez [facility] 1.2.840.114 [id number] Univers 00:00:00 00:00:00 [facility] 350.1.13.10 it y of [place] 4.2.7.2.686 [place] as NORRIS?BLEA [id number] Co alannah[address] 2021-12-02 2021-12-02 Telephone Sánchez WIMATT 1.2.932.477 [id number] Univers 00:00:00 00:00:00 [facility] HEALTH 350.1.13.10 it y of [place] 4.2.7.2.686 [place]IS?BLEA [id number] [address] 2021-11-30 2021-11-30 Patient Doctor VIDYA 1.2.840.114 [id number] Univers 00:00:00 00:00:00 Secure Msg Unassigned, MARIA ELENA 350.1.13.10 ity of [place] [facility] 4.2.7.2.686 [place] as [phone] [address] 2021-11-28 2021-11-28 Office [facility] 1.2.840.114 [id number] Univers 08:30:00 08:45:00 Visit [facility] 350.1.13.10 it y of [place] 4.2.7.2.686 [place] NORRIS?BLEA [phone] Co luisana CUNHA [address] [facility] OFFICE [facility] 2021-11-28 2021-11-28 Outpatient R SÁNCHEZ [facility] [id number] Univers 08:30:00 08:30:00 [facility] 2021-11-28 2021-11-28 Outpatient R SÁNCHEZ [facility] [id number] Univers 08:30:00 08:30:00 [facility] 2021-11-28 2021-11-28 Telephone [facility] 1.2.465.826 [id number] Univers 00:00:00 00:00:00 [facility] 350.1.13.10 it y of [place] 4.2.7.2.686 [place] NORRIS?BLEA [phone] Co luisana CUNHA 198 [facility] 2021-11-25 2021-11-25 Outpatient R COREY DURAN [facility] [id number] Univers 15:40:00 16:20:31 ROGERCOREY Collins [facility] 2021-11-25 2021-11-25 Office Roger [facility] 1.2.840.114 [id number] Univers 15:40:00 16:20:31 Visit [facility] 350.1.13.10 ity of [place] 4.2.7.2.686 [place] NORRIS?BLEA [id number] Co alannahkailey CUNHA [address] [facility] OFFICE [facility] 2021-11-25 2021-11-25 Outpatient R ROGER, COREY [facility] [id number] Univers 15:40:00 15:40:00 COREY DURAN [facility] 2021-11-25 2021-11-25 Outpatient R ELEANOR SEXTON [facility] [id number] Univers 10:00:00 11:17:41 CARLIE WEBSTER [facility] 2021-11-25 2021-11-25 Office Eleanor Sexton [facility] 1.2.840.114 [id number] Univers 10:00:00 11:17:41 Visit HEALTH 350.1.13.10 it y of [place] 4.2.7.2.686 [place] NORRIS?BLEA [id number] Co luisana CUNHA [address] [facility] OFFICE [facility] 2021-11-22 2021-11-22 Outpatient Rosalva EDUARDO [facility] [id number] Univers 15:12:16 23:59:00 [facility] 2021-11-22 2021-11-22 Outpatient Rosalva EDUARDO [facility] [id number] Univers 00:00:00 00:00:00 SENDIL ity [facility] 2021-11-21 2021-11-21 Custodial Aide Lab, Ang - [facility] 1.2.840.1 14 [id number] Univers 16:00:00 16:22:57 Visit Pat Pozo [facility] 350.1.13.10 ity of [place] 4.2.7.2.686 [place] NORRIS?BLEA [id number] Co luisana CUNHA [address] [facility] OFFICE [facility] 2021-11-21 2021-11-21 Outpatient Rosalva POZO [facility] [id number] Univers 16:00:00 16:00:00 [facility] 2021-11-21 2021-11-21 Office [facility] 1.2.840.114 [id number] Univers 15:30:00 16:00:00 Visit [facility] 350.1.13.10 it y of [place] 4.2.7.2.686 [place] NORRIS?BLEA [id number] Co luisana CUNHA [address] [facility] OFFICE [facility] 2021-11-21 2021-11-21 Outpatient R SÁNCHEZ [facility] [id number] Univers 15:30:00 15:47:08 PAT [facility] 2021-11-21 2021-11-21 Outpatient Rosalva POZO [facility] [id number] Univers 15:30:00 15:47:08 [facility] 2021-11-21 2021-11-21 Telephone Alesha [facility] 1.2.405.516 [id number] Univers 00:00:00 00:00:00 Sendil RicHHermilo [place] 350.1.13.10 ity of [facility] 4.2.7.2.686 [place] [phone] Co dical NAL [address] [facility] 2021-11-21 2021-11-21 Transition MACI Miller 1.2.840.114 [id number] Univers 00:00:00 00:00:00 of Care Kiley BARROW 350.1.13.10 i ty of [place] 4.2.7.2.686 [place] [phone] [facility] [address] [place] 2021-11-21 2021-11-21 Telephone [facility] 1.2.336.180 [id number] Univers 00:00:00 00:00:00 Latrice MURCIA 350.1.13.10 ity of [place] 4.2.7.2.686 [place] [phone] Co dical NAL 0[address] [facility] 2021-11-18 2021-11-20 Inpatient X [facility] [id number] Univers 21:35:00 15:25:00 [facility] ity [facility] 2021-11-18 2021-11-20 [facility] 1.2.840. 114 [id number] Univers 21:35:00 15:25:00 Encounter Abraham Chaidez [place] 350.1.13.10 ity of [place]2.[place].2.686 [place] [id number] [facility] [address] [place] 2021-11-18 2021-11-20 Inpatient X [facility] AMALIA [id number] Univers 21:35:00 15:25:00 [facility] ity [facility] 2021-11-14 2021-11-14 [facility] 1.2.840.114 [id number] Univers 17:59:51 23:59:00 Encounter [facility] 350.1.13.10 ity of [place] 4.2.7.2.686 [place] NORRSI?BLEA [phone] Co dical OLEGARIOEY [address] [place] MEDICAL [facility] 2021-11-14 2021-11-14 Outpatient Rosalva MANCUSO [facility] [id number] Univers 17:40:00 18:41:58 RANIA ity [facility] 2021-11-14 2021-11-14 Urgent GreenBill [facility] 1.2.840.114 [id number] Univers 17:40:00 18:41:58 Care Tien Mancuso HEALTH 350.1.13.10 ity [facility] 4.2.7.2.686 [place] NORRIS?BLEA [id number] Co alannahkailey OLEGARIOERIC [address] [place] MEDICAL OFFICE [facility] 2021-11-11 2021-11-11 Outpatient Rosal[facility] [id number] Univers 00:00:00 00:00:00 [facility] 2021-11-11 2021-11-11 Patient Doctor VIDYA 1.2.840.114 [id number] Univers 00:00:00 00:00:00 Secure Msg Unassigned, MARIA ELENA 350.1.13.10 ity of [facility] 4.2.7.2.686 [place] as [id number] [address] 2021-11-08 2021-11-08 Outpatient Rosalva [facility] [id number] Univers 16:00:00 23:59:00 [facility] 2021-11-08 2021-11-08 Outpatient Rosalva [facility] [id number] Univers 16:00:00 23:59:00 SENDIL ity [facility] 2021-11-06 2021-11-06 Telephone [facility] 1.2.751.074 [id number] Univers 00:00:00 00:00:00 Maritza A HEALTH 350.1.13.10 i ty of [place] 4.2.7.2.686 [place] as NORRIS?BLEA [id number] Co luisana CUNHA [address] [place] MEDICAL OFFICE [facility] 2021-11-04 2021-11-04 Outpatient Rosalva [facility] [id number] Univers 10:00:00 11:00:33 SENDIL ity [facility] 2021-11-04 2021-11-04 Outpatient Rosalva [facility] [id number] Univers 10:00:00 11:00:33 SENDIL ity [facility] 2021-11-04 2021-11-04 Office [facility] 1.2.840.114 [id number] Univers 10:00:00 11:00:33 Visit Latrice ClaudiaJoseph MURCIA 350.1.13.10 ity of [facility] 4.2.7.2.686 [place] [id number] Co dical NAL [address] [facility] 2021-11-01 2021-11-01 Outpatient R [facility] [id number] Univers 15:28:39 23:59:00 MARITZA ity [facility] 2021-11-01 2021-11-01 [facility] 1.2.840.114 [id number] Univers 15:28:39 23:59:00 Encounter Maritza Tinajero T[place] 350.1.13.10 ity of [facility] 4.2.7.2.686 [place] [id number] [facility] [address] [place] 2021-11-01 2021-11-01 [facility] 1.2.840.114 [id number] Univers 15:28:26 23:59:00 Encounter Maritza A [place] 350.1.13.10 ity of [place] 4.2.7.2.686 [place] [id number] [facility] [address] [place] 2021-11-01 2021-11-01 Outpatient Rosalva HAMMOND [facility] [id number] Univers 15:00:00 15:15:12 RAUL cole [facility] 2021-11-01 2021-11-01 Custodial Aide Lab, Ang - Db [facility] 1.2.840.1 14 [id number] Univers 15:00:00 15:15:00 Visit Raul Hammond 350.1.13.10 ity [facility] 4.2.7.2.686 [place] NORRIS?BLEA [id number] Co dical [place] [address] [place] MEDICAL OFFICE [facility] 2021-11-01 2021-11-01 Outpatient Rosalva HAMMOND [facility] [id number] Univers 15:00:00 15:00:00 RAUL ity [facility] 2021-11-01 2021-11-01 [facility] 1.2.840.114 [id number] Univers 14:00:00 14:30:00 Visit Maritza Tinajero HEALTH 350.1.13.10 i ty of [place] 4.2.7.2.686 [place] as NORRIS?BLEA [phone] Co dical [address] MEDICAL OFFICE BUILDING 2021-11-01 2021-11-01 Orders Doctor VIDYA 1.2.840.114 [id number] Univers 00:00:00 00:00:00 Only Unassigned, MARIA ELENA 350.1.13.10 ity of [place] [facility] 4.2.7.2.686 [place] as [phone] [address] 2021-10-31 2021-10-31 Outpatient Rosalva HAMMOND [facility] [id number] Univers 08:00:00 08:00:00 RAUL ity [facility] 2021-10-31 2021-10-31 Outpatient Rosalva HAMMOND [facility] [id number] Univers 08:00:00 08:00:00 RAUL ity [facility] 2021-10-29 2021-10-29 Outpatient Rosalva HAMMOND [facility] [id number] Univers 16:00:00 16:00:00 RALU ity [facility] 2021-10-25 2021-10-25 Outpatient Rosalva HERNANDEZ [facility] [id number] Univers 14:15:00 14:51:16 JAQUELIN ity [facility] 2021-10-25 2021-10-25 [facility] 1.2.840.114 [id number] Univers 14:15:00 14:51:16 [facility] [id number] it y of [place] 4.2.7.2.686 [place] [facility] [phone] [address] 2021-10-21 2021-10-21 Outpatient COREY QUINTEROS [facility] [id number] Univers 11:30:00 11:30:00 COREY DURAN [facility] 2021-10-21 2021-10-21 Outpatient COREY QUINTEROS [facility] [id number] Univers 11:30:00 11:30:00 [facility] 2021-09-24 Outpatient R [facility] [id number] Univers 11:00:00 11:00:00 ity [facility] 2021-09-24 2021-09-24 Outpatient R [facility] [id number] Univers 11:00:00 11:00:00 ity [facility] 2021-09-24 2021-09-24 [id number] Univers 11:00:00 11:00:00 SENIA [facility] 2021-09-19 2021-09-19 Outpatient R [facility] [id number] Univers 10:00:00 10:00:00 [facility] 2021-09-18 2021-09-18 Outpatient R MAEVE JAIME [facility] [id number] Univers 14:00:00 14:41:25 SILVIABABAKMAEVE Parham [facility] 2021-09-18 2021-09-18 [facility] 1.2.840.114 [id number] Univers 14:00:00 14:41:25 Visit [facility] [id number] it y of E[place] [id number] [facility] [phone] [facility] [address] [place] 2021-09-18 2021-09-18 Outpatient R SILVIABABAKMAEVE Parham [facility] [id number] Univers 14:00:00 14:00:00 MAEVE JAIME [facility] 2021-09-16 2021-09-17 Emergency X CACCHANDU, [facility] ERT [id number] Univers 23:55:00 02:44:00 JANE [facility] 2021-09-16 2021-09-17 Emergency [facility] 1.2.716.992 [id number] Univers 23:55:00 02:44:00 Jane MURCIA 350.1.13.10 ity of [place] 4.2.7.2.686 [facility] [phone] [facility] [address] [place] 2021-09-16 2021-09-17 Emergency X DAVID, [facility] ERT [id number] Univers 23:55:00 02:44:00 JANE cole [facility] 2021-09-16 2021-09-16 Out[facility] [id number] Univers 15:30:00 15:30:00 RAUL ity [facility] 2021-09-16 2021-09-16 Orders Doctor VIDYA 1.2.840.114 [id number] Univers 00:00:00 00:00:00 Only Unassigned, MARIA ELENA 350.1.13.10 ity of [place] [facility] 4.2.7.2.686 [place] as [phone] [facility] [address] [place] 2021-09-10 2021-09-10 Telephone Manish [facility] 1.2.434.000 [id number] Univers 00:00:00 00:00:00 Raul HEALTH 350.1.13.10 it y [facility] 4.2.7.2.686 [place] NORRIS?BLEA [phone] [facility] [address] [place] MEDICAL OFFICE [facility] 2021-09-05 2021-09-05 Custodial Aide Lab, Ang - Db [facility] 1.2.840.1 14 [id number] Univers 14:30:00 14:45:00 Visit Manish Raul HEALTH 350.1.13.10 ity of [place] 4.2.7.2.686 [place] NORRIS?BLEA [phone] [facility] [address] [place] MEDICAL OFFICE [facility] 2021-09-05 2021-09-05 Outpatient Rosalva HAMMOND [facility] [id number] Univers 14:30:00 14:30:00 RAUL kelsey [facility] 2021-09-05 2021-09-05 Outpatient R MANISH [facility] [id number] Univers 13:30:00 14:23:24 RAUL ity [facility] 2021-09-05 2021-09-05 Office [facility] 1.2.840.114 [id number] Univers 13:30:00 14:23:24 Visit Raul HEALTH 350.1.13.10 it y of [place] 4.2.7.2.686 [place] NORRIS?BLEA [id number] [address] OFFICE [facility] 2021-09-05 2021-09-05 Office Manish [facility] 1.2.840.114 [id number] Univers 13:30:00 14:23:24 Visit Raul CARVER 350.1.13.10 it y of [place] 4.2.7.2.686 [place] NORRIS?BLEA [phone] [address] OFFICE [facility] 2021-09-05 2021-09-05 Outpatient R MANISH [facility] [id number] Univers 13:30:00 14:23:24 RAULGUS cole [facility] 2021-09-05 2021-09-05 Telephone Mohinder [facility] 1.2.913.613 [id number] Univers 00:00:00 00:00:00 Maritza A HEALTH 350.1.13.10 i ty of [place] 4.2.7.2.686 [place] as NORRIS?BLEA [phone] [address] OFFICE [facility] 2021-09-03 2021-09-03 Outpatient R MANISH [facility] [id number] Univers 16:00:00 16:00:00 RAUL cole [facility] 2021-09-02 2021-09-02 Outpatient R MOHINDER [facility] [id number] Univers 10:00:00 10:00:00 MARITZAPAULINE cole [facility] 2021-09-02 2021-09-02 Outpatient [facility] [id number] Univers 10:00:00 10:00:00 MARITZA cole [facility] 2021-08-29 2021-08-29 Telephone VIDYA Bautista 1.2.947.294 [id number] Univers 00:00:00 00:00:00 Villa ARREDONDO 350.1.13.10 ity of [facility] 4.2.7.2.686 [place] as [phone] [address] 2021-08-28 2021-08-28 Laboratory Only, Ang Db Test [facility] 1.2.8 40.114 [id number] Univers 18:00:00 18:15:00 Only Dustin Nichols [facility] 350.1.13.10 ity of [place] 4.2.7.2.686 [place] as NORRIS?BLEA [phone] [address] MEDICAL OFFICE [facility] 2021-08-28 2021-08-28 Outpatient R SIMONE [facility] [id number] Univers 18:00:00 18:00:00 DUSTIN ity o f [facility] 2021-08-22 2021-08-22 Laboratory Only, Harvey Db Test [facility] 1.2.8 40.114 [id number] Univers 20:00:00 20:15:00 Only Haroon [facility] 350.1.13.10 ity [facility] 4.2.7.2.686 [place] as NORRIS?BLEA [phone] [address] MEDICAL OFFICE [facility] 2021-08-22 2021-08-22 Outpatient R HAROON [facility] [id number] Univers 20:00:00 20:00:00 BILL [facility] 2021-08-21 2021-08-21 Outpatient R CAROLINE [facility] [id number] Univers 12:00:00 12:00:00 ROMINA cole o elkin [facility] 2021-08-21 2021-08-21 Letter Nurse, Harvey [facility] 1.2.840.114 [id number] Univers 00:00:00 00:00:00 (Out) Urgent Care HEALTH 350.1.13.10 ity [facility] 4.2.7.2.686 [place] NORRIS?BLEA [phone] [address] MEDICAL OFFICE [facility] 2021-08-15 2021-08-15 Outpatient R LUIS [facility] [id number] Univers 11:30:00 11:30:00 CHILVANA ity o f [facility] 2021-08-13 2021-08-13 Outpatient R COREY DURAN [facility] [id number] Univers 08:00:00 08:00:00 COREY DURAN [facility] 2021-08-11 2021-08-11 Outpatient R JC [facility] [id number] Univers 16:00:00 16:31:43 ARTURO [facility] 2021-08-11 2021-08-11 Laboratory Only, Ang Db Test [facility] 1.2.8 40.114 [id number] Univers 16:00:00 16:15:00 Only Unknown, Attending HEALTH 350.1.13.10 ity of [place] 4.2.7.2.686 [place] as NORRIS?BLEA [phone] [facility] [address] [place] MEDICAL OFFICE BUILDING 2021-08-09 2021-08-09 Outpatient R ROGER COREY [facility] [id number] Univers 10:00:00 10:00:00 ROGER, COREY [facility] 2021-08-05 2021-08-05 Emergency X [facility] ERT [id number] Univers 15:05:00 16:44:00 FAVIOLA [facility] 2021-08-05 2021-08-05 [facility] 1.2.455.893 [id number] Univers 15:05:00 16:44:00 Miladys Anastasiya [place] 350.1.13.10 ity of [place] 4.2.7.2.686 [place] [facility] [phone] [address] 2021-08-01 2021-08-01 Office [facility] 1.2.840.114 [id number] Univers 09:30:00 10:47:41 Visit [facility] 350.1.13.10 it y [facility] 4.2.7.2.686 [place] NORRIS?BLEA [phone] [facility] [address] [place] MEDICAL OFFICE [facility] 2021-08-01 2021-08-01 Outpatient R MANISH [facility] [id number] Univers 09:30:00 10:47:41 [facility] 2021-08-01 2021-08-01 Office [facility] 1.2.840.114 [id number] Univers 09:30:00 10:47:41 Visit [facility] 350.1.13.10 it y [facility] 4.2.7.2.686 [place] as NORRIS?BLEA [phone] Co luisana [address] MEDICAL OFFICE BUILDING 2021-08-01 2021-08-01 Outpatient R MANISH [facility] [id number] Univers 09:30:00 10:47:41 RAUL cole [facility] 2021-08-01 2021-08-01 Outpatient R MANISH [facility] [id number] Univers 09:30:00 09:30:00 RAUL cole [facility] 2021-07-18 2021-07-18 Outpatient R OUMAR, [facility] [id number] Univers 14:00:00 14:35:49 JOSIE cole [facility] 2021-07-18 2021-07-18 Office Salmeron, [facility] 1.2.840.114 [id number] Univers 14:00:00 14:35:49 Visit [facility] 350.1.13.10 i ty of [place] 4.2.7.2.686 [facility] [phone] [address] 2021-07-17 2021-07-17 Outpatient R MALIA, [facility] [id number] Univers 09:00:00 09:00:00 PAMELA harmon [facility] 2021-07-17 2021-07-17 Outpatient Rosalva FINLEY [facility] [id number] Univers 09:00:00 09:00:00 PAMELA cole o [facility] 2021-07-12 2021-07-13 Emergency X SINDYCOUNT INCLUDES THE [facility] ERT [id number] Univers 19:10:00 01:46:00 [facility] 2021-07-12 2021-07-13 Emergency X [facility] ERT [id number] Univers 19:10:00 01:46:00 [facility] 2021-07-12 2021-07-13 Emergency [facility] 1.2.081.966 [id number] Univers 19:10:00 01:46:00 [facility] 350.1.13.10 ity [facility] 4.2.7.2.[address] [facility] [phone] [facility] [address] [place] 2021-07-12 2021-07-12 Outpatient R DAVIDSON [facility] [id number] Univers 11:45:00 11:54:39 MANDA [facility] 2021-07-12 2021-07-12 Nurse Nurse, [facility] 1.2.840.114 [id number] Univers 11:34:17 11:54:39 Visit Manda Cedeño [facility] 350.1.13.10 ity of [place] 4.2.7.2.686 [place] as NORRIS?BLEA [phone] [facility] [address] [place] MEDICAL OFFICE BUILDING 2021-07-12 2021-07-12 Orders Doctor VIDYA 1.2.840.114 [id number] Univers 00:00:00 00:00:00 Only Unassigned, MARIA ELENA 350.1.13.10 ity of [place] [facility] 4.2.7.2.686 [place] as [phone] [facility] [address] [place] 2021-06-14 2021-06-14 Custodial Aide Lab, Harvey - Steev [facility] 1.2.840.1 14 [id number] Univers 09:57:31 10:12:[address] [facility] 350.1.13. 10 ity of [place] 4.2.7.2.686 [place] as NORRIS?BLEA [phone] [facility] [address] [place] MEDICAL OFFICE [facility] 2021-06-14 2021-06-14 Outpatient COREY QUINTEROS [facility] [id number] Univers 09:20:00 09:58:01 COREY DURAN [facility] 2021-06-14 2021-06-14 Outpatient COREY QUINTEROS [facility] [id number] Univers 09:20:00 09:58:01 COREY DURAN [facility] 2021-06-14 2021-06-14 Office Roger [facility] 1.2.840.114 [id number] Univers 09:17:10 09:58:[address] [facility] 350.1.13.10 ity of [place] 4.2.7.2.686 [place] as NORRIS?BLEA [phone] Co luisana CUNHA 092 [facility] OFFICE [facility] 2021-06-14 2021-06-14 Outpatient COREY QUINTEROS [facility] [id number] Univers 09:20:00 09:20:00 COREY DURAN [facility] 2021-06-06 2021-06-06 Outpatient R LELO, [facility] [id number] Univers 13:40:00 13:40:00 ENEDINA harmon [facility] 2021-06-06 2021-06-06 Outpatient R LELO, [facility] [id number] Univers 13:40:00 13:40:00 [facility] harmon [facility] 2021-06-04 2021-06-04 Custodial Aide Lab, Ang - Db [facility] 1.2.840.1 14 [id number] Univers 16:23:28 16:38:28 Visit Maritza Vines HEALTH 350.1.13.10 ity [facility] 4.2.7.2.686 [place] as NORRIS?BLEA [phone] Co luisana [facility] 353 [facility] OFFICE [facility] 2021-06-04 2021-06-04 Outpatient R MANISH, [facility] [id number] Univers 16:00:00 16:23:14 RAUL cole [facility] 2021-06-04 2021-06-04 Outpatient R MANISH, [facility] [id number] Univers 16:00:00 16:23:14 RAUL cole [facility] 2021-06-04 2021-06-04 Office [facility] 1.2.840.114 [id number] Univers 15:49:27 16:23:14 Visit Raul Praccel 350.1.13.10 it y of [place] 4.2.7.2.686 [place] as NORRIS?BLEA [phone] Co luisana [facility] 044 [facility] OFFICE [facility] 2021-06-03 2021-06-03 Telephone [facility] 1.2.473.189 [id number] Univers 00:00:00 00:00:00 Maritza Tanvi HEALTH 350.1.13.10 i ty of [place] 4.2.7.2.686 [place] as NORRIS?BLEA [phone] Co luisana MELVIN[address] MEDICAL OFFICE BUILDING 2021-06-02 2021-06-02 Emergency X KARINA [facility] ERT [id number] Univers 13:06:00 18:42:00 ASHOK cole [facility] 2021-06-02 2021-06-02 Emergency [facility] 1.2.671.593 [id number] Univers 13:06:00 18:42:00 Ashok MURCIA 350.1.13.10 ity [facility] 4.2.7.2.686 [facility] [phone] [facility] [address] 2021-06-02 2021-06-02 Emergency [facility] ERT [id number] Univers 13:06:00 18:42:00 ASHOK [facility] 2021-06-02 2021-06-02 Orders Doctor DASILVA 1.2.840.114 [id number] Univers 00:00:00 00:00:00 Only Unassigned, MARIA ELENA 350.1.13.10 ity of [facility] 4.2.7.2.686 [place] as [phone] [facility] [address] 2021-05-30 2021-05-30 Outpatient R INESSA, [facility] [id number] Univers 11:15:00 11:15:00 WONDIFUL ity o f [facility] 2021-05-30 2021-05-30 Outpatient R MOHINDER, [facility] [id number] Univers 10:30:00 10:30:00 [facility]-05-30 2021-05-30 Outpatient R MOHINDER, [facility] [id number] Univers 10:30:00 10:30:00 [facility]ITZA [facility] 2021-05-14 2021-05-14 Outpatient R [facility] [id number] Univers 14:00:00 14:00:00 ity [facility] 2021-05-14 2021-05-14 Outpatient R MALIA [facility] [id number] Univers 13:00:00 13:00:00 ROSHUNDA ity o f [facility] 2021-05-09 2021-05-09 [facility] [id number] Univers 14:20:00 14:20:00 ENEDINA granger [facility] 2021-05-07 2021-05-07 Office [facility] 1.2.840.114 [id number] Univers 09:54:24 10:24:24 Visit [facility] 350.1.13.10 ity of [place] 4[place]2.7.2.686 [place] [facility] [place] [phone] [address] 2021-05-07 2021-05-07 Outpatient R [facility] [id number] Univers 09:30:00 09:30:00 HOPKINS kelsey o elkin [facility] 2021-05-07 2021-05-07 Telephone [facility] 1.2.357.082 [id number] Univers 00:00:00 00:00:00 [facility] 350.1.13.10 ity of Special[place] 4.2.7.2.686 [place] - [phone] [address] 2021-05-06 2021-05-06 Custodial Aide Zhang, Adc Lab Main [facility] 1.2.8 40.114 [id number] Univers 17:03:55 17:18:55 Visit Sandeep Monreal [place] 350.1.13.10 ity of [place] 4.2.7.2.686 [place] Profess[place] [phone] Co dic[address] 2021-05-06 2021-05-06 Outpatient R [facility] [id number] Univers 10:00:00 10:00:00 MARITZA ity of [facility] 2021-04-30 2021-04-30 Custodial Aide Zhang, Adc Lab Main [facility] 1.2.8 40.114 [id number] Univers 11:47:03 12:02:03 Visit Maritza Vines [place] 350.1.13.10 ity of [place] 4.2.7.2.686 [place] [phone] Co dic[address] 2021-04-30 2021-04-30 Outpatient R [facility] [id number] Univers 11:30:00 11:30:00 MARITZA cole [facility] 2021-04-30 2021-04-30 Telephone [facility] 1.2.473.613 [id number] Univers 00:00:00 00:00:00 [facility] 350.1.13.10 ity of [place]2.7.2.686 [place] [phone] [address] Office Building 2021-04-17 2021-04-17 Office [facility] 1.2.840.114 [id number] Univers 12:36:07 13:51:10 Visit Maritza [facility] 350.1.13.10 i ty of [place] 4.2.7.2.686 [place] Norris?Blea [phone] [address] Office [facility] 2021-04-17 2021-04-17 Outpatient R [facility] [id number] Univers 12:30:00 12:30:00 MARITZA cole [facility] 2021-04-17 2021-04-17 Orders Doctor VIDYA 1.2.840.114 [id number] Univers 00:00:00 00:00:00 Only Unassigned, MARIA ELENA 350.1.13.10 ity of [place] [facility] 4.2.7.2.686 [place] as [phone] [address] 2021-04-17 2021-04-17 Telephone [facility] 1.2.038.829 [id number] Univers 00:00:00 00:00:00 Maritza [facility] 350.1.13.10 i ty of [place] 4.2.7.2.686 [place] Norris?Blea [phone] [address] Office [facility] 2021-04-17 2021-04-17 Orders Doctor VIDYA 1.2.840.114 [id number] Univers 00:00:00 00:00:00 Only Unassigned, MARIA ELENA 350.1.13.10 ity of [place] [facility] 4.2.7.2.686 [place] as [phone] [address] 2021-03-21 2021-03-21 Telephone Dipti, [facility] 1.2.840.11 4 [id number] Univers 00:00:00 00:00:00 Radha Robles HEALTH 350.1.13.10 i ty of CL[place]2.[place] [phone] [facility] [address] 2021-03-15 2021-03-15 Emergency Faviola Ortiz S [facility] 1.2.840 .114 [id number] Univers 00:58:00 18:31:00 [place] 350.1.13.10 ity of [place] 4.2.7.2.686 [place] [phone] [facility] [address] 2021-03-07 2021-03-07 Office Pgy2 [facility] 1.2.307.289 [id number] Univers 15:22:23 15:37:23 Visit Sandeep Monreal Tanvi HEALTH 350.1.13.10 ity of CLIN[place] 4.2.7.2.686 [place] [id number] [facility] [address] 2021-03-07 2021-03-07 Outpatient R [facility] [id number] Univers 15:15:00 15:15:00 ity of [facility] 2021-03-06 2021-03-06 Outpatient R [facility] [id number] Univers 10:30:00 10:30:00 MARITZA ity of [facility] 2021-03-05 2021-03-05 Emergency Claudia Carranza [facility] 1.2.840.114 [id number] Univers 00:44:00 05:15:00 Joanna Murcia 350.1.13.10 i ty of [place] 4.2.7.2.686 [place] [phone] [facility] [address] 2021-03-05 2021-03-05 Orders Doctor DASILVA 1.2.840.114 [id number] Univers 00:00:00 00:00:00 Only Unassigned, MARIA ELENA 350.1.13.10 ity of [place] [facility] 4.2.7.2.686 [place] as [phone] [address] 2021-02-28 2021-02-28 Office [facility] 1.2.840.114 [id number] Univers 10:36:17 11:42:08 Visit Pamela Blackwell MACHINE MARKER 350.1.13.10 ity of [facility] 4.2.7.2.686 [place] as MATERNAL [phone] [facility] & CHILD [address] [place] [address] 2021-02-28 2021-02-28 Outpatient R MALIA [facility] [id number] Univers 10:45:00 10:45:00 PAMELA ity o f [facility] 2021-02-22 2021-02-22 Outpatient R [facility] [id number] Univers 13:00:00 13:00:00 MARITZA cole [facility] 2021-02-22 2021-02-[address] [facility] 1.2.948.644 [id number] Univers 00:00:00 00:00:00 Maritza Tinajero [facility] 350.1.13.10 i ty [facility] 4.2.7.2.686 [place] as Professio [phone] [facility] [address] [place] Office Building One 2021-02-21 2021-02-21 Emergency [facility] 1.2.840.114 [id number] Univers 14:23:00 16:09:00 Radha Murcia 350.1.13.10 ity [facility] 4.2.7.2.686 [place] [facility] [phone] [facility] [address] [place] 2021-02-21 2021-02-21 Telephone [facility] 1.2.840.114 [id number] Univers 00:00:00 00:00:00 Osvaldo Chisholm MACHINE MARKER 350.1.13.10 ity of [facility] 4.2.7.2.686 [place] as MATERNAL [phone] [facility] & CHILD [address] [place] [address] 2021-02-19 2021-02-19 Office [facility] 1.2.849.333 [id number] Univers 13:50:26 14:20:33 Visit Osvaldo Chisholm MACHINE MARKER 350.1.13.10 ity of REGIONAL 4.2.7.2.686 [place] as MATERNAL [phone] Med ical & CHILD 107 [facility] 2021-02-19 2021-02-19 Outpatient R ERIS [facility] [id number] Univers 14:00:00 14:00:00 OSVALDO ity o f [facility] 2021-02-18 2021-02-18 Telephone [facility] 1.2.868.593 [id number] Univers 00:00:00 00:00:00 Maritza A [facility] 350.1.13.10 i ty of [place] 4.2.7.2.686 [place] as Professio [phone] [address] Office [facility] 2021-02-11 2021-02-11 Urgent Provider, [facility] 1.2.840.114 [id number] Univers 16:48:53 18:10:35 Care Graham Melara [facility] 350.1.13.10 ity of [place] 4.2.7.2.686 [place] as Professio [phone] [address] One 2021-02-11 2021-02-11 Outpatient R [facility] [id number] Univers 17:00:00 17:00:00 ity of [facility] 2021-02-07 2021-02-07 Outpatient R [facility] [id number] Univers 08:15:00 08:15:00 WONDIFUL ity o f [facility] 2021-02-06 2021-02-06 Outpatient R [facility] [id number] Univers 13:30:00 13:30:00 ity of [facility] 2021-02-06 2021-02-06 Orders Doctor VIDYA 1.2.840.114 [id number] Univers 00:00:00 00:00:00 Only Unassigned, MARIA ELENA 350.1.13.10 ity of [place] [facility] 4.2.7.2.686 [place] as [phone] [address] 2021-01-29 2021-01-29 Outpatient R ZBIGNIEW [facility] [id number] Univers 14:30:00 14:30:00 WENTONG ity of [facility] 2021-01-28 2021-01-28 Outpatient R SALMERON [facility] [id number] Univers 10:30:00 10:30:00 JOSIE [facility] 2021-01-25 2021-01-25 Outpatient [facility] [id number] Univers 11:30:00 11:30:00 ELEAZAR [facility] 2021-01-25 2021-01-25 Telephone [facility] 1..358.569 [id number] Univers 00:00:00 00:00:00 Maritza A [facility] 350.1.13.10 i ty of [place] 4.2.7.2.686 [place] as Professio [phone] [address] Office [facility] One 2021-01-22 2021-01-22 Custodial Aide Lab, Adc Fam Pob I [facility] 1.. 840.114 [id number] Univers 14:45:57 15:05:57 Visit Simone [facility] 350.1.13.10 ity of [place] 4.2.7.2.686 [place] Professio [phone] [address] Office [facility] One 2021-01-22 2021-01-22 Office [facility] 1..840.114 [id number] Univers 13:54:55 14:46:13 Visit [facility] 350.1.13.10 i ty of [place] 4.2.7.2.686 [place] as Professio [phone] [address] Office [facility] 2021-01-22 2021-01-22 Outpatient R SIMONE [facility] [id number] Univers 14:00:00 14:00:00 DUSTIN edelshira o f [facility] 2021-01-20 2021-01-20 Emergency [facility] [id number] Univers 01:27:00 04:30:00 Faviola [facility] [place] [id number] ity of [place] 4.2.7.2.686 [place] [facility] [phone] [address] 2021-01-18 2021-01-18 Outpatient R ASI [facility] [id number] Univers 10:30:00 10:30:00 ELEAZAR cole [facility] 2021-01-10 2021-01-10 Outpatient R ERIS, [facility] [id number] Univers 13:15:00 13:15:00 OSVALDO ity o f [facility] 2021-01-02 2021-01-02 Outpatient R ERIS, [facility] [id number] Univers 08:00:00 08:00:00 OSVALDO ity o f [facility] 2020-11-14 2020-11-14 Office [facility] [id number] 13:09:00 14:20:05 Visit Osvaldo Chisholm MACHINE MARKER [id number] [facility] [id number] MATERNAL [phone] & CHILD [address] [place] [address] 2020-11-14 2020-11-14 Office [facility] [id number] Univers 13:09:00 14:20:05 Visit [facility] MACHINE MARKER [id number] ity [facility] [id number] [place] as MATERNAL [phone] [facility] & CHILD [address] [place] [address] 2020-11-14 2020-11-14 [facility] [id number] Univers 13:15:00 13:15:00 OSVALDO ity o f [facility] 2020-11-11 2020-11-12 [facility] [id number] Univers 20:34:00 00:26:00 Faviola [facility] [place] [id number] [facility] [id number] [facility] [phone] [address] 2020-11-10 2020-11-10 Outpatient [facility] [id number] Univers 13:55:00 13:55:00 ity [facility] 2020-11-04 2020-11-04 [facility] 1.2.740.886 [id number] Univers 18:01:00 20:04:00 Jemima S Clark 350.1.13.10 i ty of [place] [phone] [facility] ruben 084 [place] 2020-10-30 2020-10-30 1.2.840.1 1.2.840.114 [id number] Univers 00:00:00 00:00:00 Encounter 20680.1.1 350.1.13.10 ity of 3.104.2.7 [place].2.696 [place][id number] 570 [facility] l [place] 2020-10-29 2020-10-29 [facility]phone [facility] 1.2.781.175 [id number] Univers 00:00:00 00:00:00 Juan [place] 350.1.13.10 i ty of [place] [phone] Co dicaz nal 220 [facility] 2020-10-29 2020-10-29 [facility]phone [facility] 1.2.441.719 [id number] Univers 00:00:00 00:00:00 Jessicaong [place] 350.1.13.10 i [place] of [place] [facility] [phone] Co dical nal 220 [facility] 2020-10-26 2020-10-26 Outpatient Rosalva HERNANDEZ [facility] [id number] Univers 15:00:00 15:00:00 HUMAIR ity of [facility] 2020-10-25 2020-10-25 [facility]phone [facility] 1.2.896.884 [id number] Univers 00:00:00 00:00:00 Jessicaong [place] 350.1.13.10 i ty of [place] [phone] Co dical nal 220 [facility] 2020-10-24 2020-10-24 Routine Akinsijosue, [facility] 1.2.148.087 [id number] Univers 15:58:25 16:30:47 Osvaldo C MACHINE MARKER 350.1.13.10 ity of Visit [facility] 4.2.7.2.686 [place] MATERNAL [phone] Med ical & CHILD 107 [facility] 2020-10-24 2020-10-24 Office Zbigniew [facility] 1.2.840.114 [id number] Univers 08:32:21 09:34:52 Visit [facility] 350.1.13.10 i [place] [phone] [facility] 220 [facility] 2020-10-24 2020-10-24 Outpatient R ZBIGNIEW [facility] [id number] Univers 08:30:00 08:30:00 [facility] ity [facility] 2020-10-20 2020-10-20 Outpatient [facility] [id number] Univers 13:45:00 13:45:00 ity of [facility] 2020-10-19 2020-10-19 Telephone [facility] 1.2.245.432 [id number] Univers 00:00:00 00:00:00 [facility] 350.1.13.10 it y [facility] [place] 4.2.7.2.686 [place] Professio [phone] [facility] 044 [facility] 2020-10-18 2020-10-18 [facility] 1.2.840.114 [id number] Univers 20:14:02 23:59:00 Encounter Anna Murcia 350.1.13.10 ity of [place].2.7.2.686 [place] [phone] [facility] 807 [place] 2020-10-18 2020-10-18 Urgent Provider, [facility] 1.2.840.114 [id number] Univers 18:26:47 19:49:55 Care Romina Velazquez [facility] 350.1.13.10 ity of [place] 4.2.7.2.686 [place] Professio [phone] [facility] 044 [facility] 2020-10-18 2020-10-18 Outpatient R CAROLINE [facility] [id number] Univers 18:40:00 18:40:00 ROMINA ity o f [facility] 2020-10-13 2020-10-13 Nurse VIDYA Barrios 1.2.840.114 [id number] Univers 00:00:00 00:00:00 Triage Yesenia ARREDONDO 350.1.13.10 it y of [facility] 4.2.7.2.686 [place] [phone] [address] 2020-10-11 2020-10-11 [facility] 1.2 .840.114 [id number] Univers 10:20:05 10:38:28 Visit Osvaldo Schulte MACHINE MARKER 350.1.13. 10 ity of [facility] 4.2.7.2.686 [place] MATERNAL [phone] [facility] ical & CHILD [address] [place] [address] 2020-10-11 2020-10-11 Outpatient R ERIS [facility] [id number] Univers 10:30:00 10:30:00 OSVALDOJOÃO cole o f [facility] 2020-10-11 2020-10-11 1.2.840.1 1.2.840.114 [id number] Univers 00:00:00 00:00:00 Encounter 59414.1.1 350.1.13.10 ity of 3.104.2.7 [place].2.696 [place] .2.680994 570 [facility] 2020-10-08 2020-10-08 1.2.840.1 1.2.840.114 [id number] Univers 00:00:00 00:00:00 Encounter 63661.1.1 350.1.13.10 ity of 3.104.2.7 [place]7.2.696 [place] .2.405897 570 [facility] 2020-10-01 2020-10-01 Telemedici Faculty, Harvey [facility] 1.2.840.114 [id number] Univers 09:23:14 14:54:50 ne Visit Basia Carreon MACHINE MARKER 350.1.13.10 ity of REGIONAL 4.2.7.2.686 [place] MATERNAL [phone] Med ical & CHILD 107 [facility] 2020-09-27 2020-09-27 Hospital Vidya Dean [facility] 1.2.840.114 [id number] Univers 14:29:00 22:45:00 Encounter Brandon Murcia 350.1.13.10 ity of [place].2.7.2.686 [place] [phone] [facility] 083 [place] 2020-09-27 2020-09-27 Outpatient P VIDYA DEAN [facility] DENISE [id number] Univers 14:29:00 22:45:00 ity of [facility] 2020-09-27 2020-09-27 Outpatient R [facility] [id number] Univers 13:00:00 13:00:00 ity of [facility] 2020-09-27 2020-09-27 Telemedici Fellow, Christiano [facility] 1 .2.840.114 [id number] Univers 07:53:52 08:08:52 ne Visit Basia Carreon MACHINE MARKER 350.1.13.10 ity of [facility] 4.2.7.2.686 [place] MATERNAL [id number] Med ical & CHILD 124 [facility] 2020-09-24 2020-09-24 Routine Faculty, Harvey [facility] 1.2 .840.114 [id number] Univers 14:32:43 15:03:55 Aaron Li MACHINE MARKER 350.1.13.10 ity of Visit [facility] 4.2.7.2.686 [place] MATERNAL [phone] Med ical & CHILD 107 [facility] 2020-09-24 2020-09-24 Outpatient R [facility] [id number] Univers 14:30:00 14:30:00 ity of [facility] 2020-09-19 2020-09-22 Hospital VIDYA Sethi 1.2.836.858 [id number] Univers 20:30:00 10:35:00 Encounter Thompson ARREDONDO 350.1.13.10 ity of [facility] 4.2.7.2.686 [place] [phone] [address] 2020-09-20 2020-09-20 Outpatient R [facility] [id number] Univers 15:00:00 15:00:00 [facility] 2020-09-13 2020-09-13 Routine Risk, Bza-Ajrqa-Fk/High [facility] 1. 2.840.114 [id number] Univers 14:30:12 15:31:05 Tania Vazquez MACHINE MARKER 350.1.13.10 ity of Visit REGIONAL 4.2.7.2.686 [place] MATERNAL [phone] Med ical & CHILD [address] [place] [address] 2020-09-13 2020-09-13 Outpatient R GEORGE [facility] [id number] Univers 14:30:00 14:30:00 TANIA [facility] 2020-09-11 2020-09-11 Outpatient P AARON LI [facility] [id number] Univers 13:30:00 13:30:00 AARON LI [facility] 2020-09-02 2020-09-09 Hospital Leslye DASILVA 1.2.840.114 [id number] Univers 23:37:00 14:30:00 Encounter Camron ARREDONDO 350.1.13.10 ity of [facility] 4.2.7.2.686 [place] as [phone] [address] 2020-09-09 2020-09-09 Letter YASMIN PearsonIT .2.840.114 [id number] Univers 00:00:00 00:00:00 (Out) Marta Granados [facility] 350.1.13.10 i ty of CLINICS [place].2.[place] [id number] [facility] 113 [place] 2020-09-06 2020-09-06 Outpatient P FARHAN [facility] [id number] Univers 13:00:00 13:00:00 NICHOLE [facility] 2020-09-02 2020-09-02 [facility] 1.2.165.832 [id number] Univers 12:27:00 15:04:00 Jemima Murcia 350.1.13.10 i ty of [place] 4.2.7.2.686 [place] [phone] [facility] [address] [place] 2020-09-02 2020-09-02 Orders Doctor VIDYA 1.2.840.114 [id number] Univers 00:00:00 00:00:00 Only Unassigned, MARIA ELENA 350.1.13.10 ity of [place] [facility] 4.2.7.2.686 [place] [phone] [facility] [address] [place] 2020-08-30 2020-08-30 Outpatient R [facility] [id number] Univers 15:30:00 15:30:00 ity of [facility] 2020-08-28 2020-08-28 Telephone ANEL Munoz 1.2.840.114 [id number] Univers 00:00:00 00:00:00 [facility] 350.1.13.10 i ty of [facility] 4.2.7.2.686 [place] [phone] [facility] [address] 2020-08-28 2020-08-28 Telephone Eris [facility] 1.2.840.114 [id number] Univers 00:00:00 00:00:00 Osvaldo Chisholm MACHINE MARKER 350.1.13.10 ity of REGIONAL 4.2.7.2.686 [place] MATERNAL [phone] Med ical & CHILD [address] [place] [address] 2020-08-23 2020-08-23 Routine Risk, Nms-Ajucl-Rm/High [facility] 1. 2.840.114 [id number] Univers 15:25:42 16:19:39 Tania Vazquez MACHINE MARKER 350.1.13.10 ity of Visit REGIONAL 4.2.7.2.686 [place] MATERNAL [id number] [facility] ical & CHILD [address] [place] [address] 2020-08-23 2020-08-23 Outpatient R [facility] [id number] Univers 11:00:00 11:00:00 ity of [facility] 2020-08-16 2020-08-16 Routine Risk, Svf-Hfkau-Ix/High [facility] 1. 2.840.114 [id number] Univers 13:22:11 13:37:11 Crystal Menard MACHINE MARKER 350.1.13.10 ity of Visit REGIONAL 4.2.7.2.686 [place] MATERNAL [phone] [facility] ical & CHILD [address] [place] [address] 2020-08-16 2020-08-16 Outpatient R [facility] [id number] Univers 13:30:00 13:30:00 ity of [facility] 2020-08-16 2020-08-16 Orders Doctor DASILVA 1.2.840.114 [id number] Univers 00:00:00 00:00:00 Only Unassigned, MARIA ELENA 350.1.13.10 ity of [place] [facility] 4.2.7.2.686 [place] as [phone] [address] 2020-08-09 2020-08-11 Hospital VIDYA Real 1.2.840.114 [id number] Univers 18:41:00 13:02:00 Encounter Nichole ARREDONDO 350.1.13.10 ity of HOSPITAL 4.2.7.2.686 [place] [phone] [facility] 019 [place] 2020-08-09 2020-08-09 Routine Risk, Tym-Cevpa-Tg/High [facility] 1. 2.840.114 [id number] Univers 13:21:37 14:25:58 Tania Vazquez MACHINE MARKER 350.1.13.10 ity of Visit REGIONAL 4.2.7.2.686 [place] MATERNAL [phone] [facility] & CHILD [address] [place] [address] 2020-08-09 2020-08-09 Outpatient R [facility] [id number] Univers 14:00:00 14:00:00 ity of [facility] 2020-08-09 2020-08-09 Custodial Aide Ultrasound, Jaqueline [facility] 1.2 .840.114 [id number] Univers 12:52:13 13:21:14 Visit Nichole Real MACHINE MARKER 350.1.13.10 ity of [facility] 4.2.7.2.686 [place] MATERNAL [phone] [facility] ical & CHILD 369 [facility] 2020-08-09 2020-08-09 Orders Doctor VIDYA 1.2.840.114 [id number] Univers 00:00:00 00:00:00 Only Unassigned, MARIA ELENA 350.1.13.10 ity of [place] [facility] 4.2.7.2.686 [place] as [phone] [address] 2020-08-08 2020-08-08 [facility] 1.2.840.114 [id number] Univers 16:18:00 20:20:00 Encounter Adelaida Murcia 350.1.13.10 ity of [place] 4.2.7.2.686 [facility] [phone] [address] 2020-08-08 2020-08-08 Orders Doctor VIDYA 1.2.840.114 [id number] Univers 00:00:00 00:00:00 Only Unassigned, MARIA ELENA 350.1.13.10 ity of [place] [facility] 4.2.7.2.686 [place] as [phone] [address] 2020-07-31 2020-07-31 Routine [facility] 1.2.865.937 [id number] Univers 14:33:59 15:07:48 Osvaldo Chisholm MACHINE MARKER 350.1.13.10 ity of Visit [facility] 4.2.7.2.686 [place] MATERNAL [id number] Med ical & CHILD [address] [place] [address] 2020-07-31 2020-07-[address] [facility] [id number] Univers 14:30:00 14:30:00 OSVALDO hollingsworthy o f [facility] 2020-07-23 2020-07-23 Outpatient R [facility] [id number] Univers 10:00:00 10:00:00 ity of [facility] 2020-07-22 2020-07-22 Emergency Sherry Topete [facility] 1.2.840. 114 [id number] Univers 15:14:00 17:33:00 Vidya Dean 350.1.13.10 ity of [place] 4.2.7.2.686 [facility] [phone] [address] 2020-07-22 2020-07-22 Outpatient P VIDYA DEAN [facility] DENISE [id number] Univers 15:14:00 15:14:00 ity [facility] 2020-07-16 2020-07-16 [facility] 1.2.836.010 [id number] Univers 10:49:31 11:34:46 Osvaldo Chisholm MACHINE MARKER 350.1.13.10 ity of Visit [facility] 4.2.7.2.686 [place] MATERNAL [id number] [facility] ical & CHILD [address] [place] [address] 2020-07-16 2020-07-16 Routine Faculty, Harvey Capellan [facility] 1.2 .840.114 [id number] Univers 10:03:55 10:49:16 Aaron Li MACHINE MARKER 350.1.13.10 ity of Visit [facility] 4.2.7.2.686 [place] MATERNAL [phone] [facility] & [address] 2020-07-16 2020-07-16 Outpatient R [facility] [id number] Univers 09:00:00 09:00:00 ity of [facility] 2020-07-16 2020-07-16 Orders Doctor VIDYA 1..840.114 [id number] Univers 00:00:00 00:00:00 Only Unassigned, MARIA ELENA 350.1.13.10 ity of [place] [facility] 4.2.7.2.686 [place] as [phone] [address] 2020-07-12 2020-07-12 Outpatient P ABIMBOLA GILL [facility] [id number] Univers 10:30:00 10:30:00 ity of [facility] 2020-07-11 2020-07-11 Outpatient R RAH [facility] [id number] Univers 13:30:00 13:30:00 SANDEEP ity o f [facility] 2020-07-09 2020-07-09 Telemedici Faculty, Harvey [facility] 1.2.840.114 [id number] Univers 08:08:55 16:43:54 ne Visit Aaron Li MACHINE MARKER 350.1.13.10 ity of [facility] 4.2.7.2.686 [place] MATERNAL [id number] [facility] & CHILD [address] [place] [address] 2020-07-09 2020-07-09 Outpatient R SONI AARON [facility] [id number] Univers 15:30:00 15:30:00 SONIAARON ity [facility] 2020-07-09 2020-07-09 Custodial Aide Ultrasound, [facility] 1.2 .840.114 [id number] Univers 13:00:00 14:06:35 Visit Aaron Li MACHINE MARKER 350.1.13.10 ity of REGIONAL 4.2.7.2.686 [place] MATERNAL [id number] [facility] & [address] 2020-07-02 2020-07-02 Outpatient R [facility] [id number] Univers 09:45:00 09:45:00 ity [facility] 2020-07-02 2020-07-02 Telemedici Faculty, Harvey [facility] 1.2.840.114 [id number] Univers 08:27:24 08:57:24 ne Visit Dio Abbott MACHINE MARKER 350.1 .13.10 ity of REGIONAL 4.2.7.2.686 [place] MATERNAL [id number] [address] 2020-06-27 2020-06-27 Office Mary [facility] 1.2.840.114 [id number] Univers 10:04:07 11:12:04 Visit [facility] 350.1.13.10 it y of [place].2.[place] [id number] [address] 2020-06-27 2020-06-27 Outpatient R MARY [facility] [id number] Univers 10:00:00 10:00:00 [facility] 2020-06-26 2020-06-26 Telephone Eris [facility] 1.2.840.114 [id number] Univers 00:00:00 00:00:00 Osvaldo Chisholm MACHINE MARKER 350.1.13.10 ity of REGIONAL 4.2.7.2.686 [place] MATERNAL [phone] [facility] & [address] 2020-06-25 2020-06-25 Routine Faculty, Ang [facility] 1.2 .840.114 [id number] Univers 09:02:18 09:43:31 Basia Carreon MACHINE MARKER 350.1.13.10 ity of Visit REGIONAL 4.2.7.2.686 [place] MATERNAL [id number] [facility] & CHILD [address] [place] [address] 2020-06-25 2020-06-25 Outpatient R [facility] [id number] Univers 09:15:00 09:15:00 ity of [facility] 2020-06-22 2020-06-22 Telephone [facility] 1.2.840.114 [id number] Univers 00:00:00 00:00:00 Osvaldo C MACHINE MARKER 350.1.13.10 ity of [facility] 4.2.7.2.686 [place] MATERNAL [id number] [facility] & CHILD [address] [place] [address] 2020-06-20 2020-06-20 Outpatient [facility] [id number] Univers 10:30:00 10:30:00 OSVALDO cole o f [facility] 2020-06-19 2020-06-19 Telephone YASMIN KhanIT 1.2.840.114 [id number] Univers 00:00:00 00:00:00 [facility] 350.1.13.10 i ty of CL[place].2.[place] [phone] [address] 2020-06-18 2020-06-18 Outpatient R [facility] [id number] Univers 10:30:00 10:30:00 ity of [facility] 2020-06-18 2020-06-18 Telemedici Faculty, Harvey Rodriguezconchita [facility] 1.2.840.114 [id number] Univers 09:51:46 10:21:46 ne Visit Dio Abbott MACHINE MARKER 350.1 .13.10 ity of [facility] 4.2.7.2.686 [place] MATERNAL [phone] [facility] & CHILD [address] [place] [address] 2020-06-13 2020-06-13 Emergency [facility] 1.2.553.840 [id number] Univers 13:56:00 15:42:00 Sameer Murcia 350.1.13.10 i ty of [place] 4.2.7.2.686 [place] [phone] [facility] [address] [place] 2020-06-11 2020-06-11 Routine Faculty, Harvey Rodriguezconchita [facility] 1.2 .840.114 [id number] Univers 09:37:31 10:48:32 Carla Alegre MACHINE MARKER 350.1.13.10 ity of Visit REGIONAL 4.2.7.2.686 [place] MATERNAL [phone] Med ical & CHILD [address] [place] [address] 2020-06-11 2020-06-11 Outpatient R [facility] [id number] Univers 09:00:00 09:00:00 ity of [facility] 2020-06-11 2020-06-11 Orders Doctor DASILVA 1.2.840.114 [id number] Univers 00:00:00 00:00:00 Only Unassigned, MARIA ELENA 350.1.13.10 ity of [place] [facility] 4.2.7.2.686 [place] as [phone] [facility] [address] [place] 2020-06-04 2020-06-05 Telemedici Faculty, Harvey Rodriguezconchita [facility] 1.2.840.114 [id number] Univers 08:18:00 14:22:03 ne Visit Dio Abbott MACHINE MARKER 350.1 .13.10 ity of Osvaldo Schulte [facility] 4.2.7.2.68 6 [place] MATERNAL [phone] [facility] & CHILD [address] [place] [address] 2020-06-04 2020-06-04 Outpatient R LESLYE [facility] [id number] Univers 14:15:00 14:15:00 CAMRON it y of S, WHARTON [facility] 2020-05-24 2020-05-28 Hospital VIDYA Li 1.2.840.114 [id number] Univers 19:22:00 14:36:00 Encounter Aaron ARREDONDO 350.1.13.10 ity of HOSPITAL 4.2.7.2.686 [place] as [phone] [facility] [address] [place] 2020-05-28 2020-05-28 Outpatient R [facility] [id number] Univers 13:00:00 13:00:00 ity [facility] 2020-05-24 2020-05-24 Routine Risk, Wmt-Fcofa-Cd/High [facility] 1. 2.840.114 [id number] Univers 14:23:40 16:18:10 George Tania Joey MACHINE MARKER 350.1.13.10 ity of Visit REGIONAL 4.2.7.2.686 [place] MATERNAL [id number] [facility] ical & CHILD [address] [place] [address] 2020-05-24 2020-05-24 Outpatient R [facility] [id number] Univers 14:30:00 14:30:00 ity [facility] 2020-05-21 2020-05-21 Outpatient R ABIMBOLA GILL [facility] [id number] Univers 10:15:00 10:15:00 ity [facility] 2020-05-17 2020-05-17 Routine Risk, Jbt-Zzklo-Mc/High [facility] 1. 2.840.114 [id number] Univers 14:42:13 15:09:43 Osvaldo Scuhlte MACHINE MARKER 350.1.13 .10 ity of Visit REGIONAL 4.2.7.2.686 [place] MATERNAL [id number] [facility] & [address] 2020-05-17 2020-05-17 Outpatient R [facility] [id number] Univers 15:00:00 15:00:00 ity [facility] 2020-05-17 2020-05-17 Outpatient R ERIS [facility] [id number] Univers 15:00:00 15:00:00 OSVALDO cole o f [facility] 2020-05-16 2020-05-16 Emergency Singer [facility] 1.2.434.084 [id number] Univers 17:21:00 19:33:00 Sameer Murcia 350.1.13.10 i ty of [place] 4.2.7.2.686 [facility] [phone] [address] 2020-05-16 2020-05-16 Telephone Eris [facility] 1.2.840.114 [id number] Univers 00:00:00 00:00:00 Osvaldo Chisholm MACHINE MARKER 350.1.13.10 ity of REGIONAL 4.2.7.2.686 [place] MATERNAL [id number] Med ical & CHILD 107 [facility] 2020-05-10 2020-05-10 Custodial Aide [facility] 1.2 .840.114 [id number] Univers 15:41:17 16:11:17 Visit Thompson Sethi Yosvany MACHINE MARKER 350.1.13.1 0 ity of REGIONAL 4.2.7.2.686 [place] MATERNAL [phone] Med ical & CHILD 369 [facility] 2020-05-10 2020-05-10 Outpatient P [facility] [id number] Univers 15:15:00 15:15:00 ity of [facility] 2020-05-08 2020-05-08 Case Darian Coley [facility] 1.2.840.114 [id number] Univers 00:00:00 00:00:00 Management [facility] 350.1.13.10 ity of [facility] 4.2.7.2.686 [place] [id number] [address] 2020-05-07 2020-05-07 Outpatient R [facility] [id number] Univers 10:00:00 10:00:00 ity of [facility] 2020-05-07 2020-05-07 Telemedici Faculty, Harvey [facility] 1.2.840.114 [id number] Univers 08:42:41 09:12:41 ne Visit Aaron Li MACHINE MARKER 350.1.13.10 ity of REGIONAL 4.2.7.2.686 [place] MATERNAL [phone] Med ical & CHILD [address] [place] [address] 2020-05-07 2020-05-07 Telephone [facility] 1.2.840.114 [id number] Univers 00:00:00 00:00:00 Osvaldo C MACHINE MARKER 350.1.13.10 ity of REGIONAL 4.2.7.2.686 [place] MATERNAL [id number] [facility] ical & CHILD [address] [place] [address] 2020-04-20 2020-04-20 Telephone [facility] 1.2.840.114 [id number] Univers 00:00:00 00:00:00 Osvaldo C MACHINE MARKER 350.1.13.10 ity of REGIONAL 4.2.7.2.686 [place] MATERNAL [id number] [facility] & [address] 2020-04-16 2020-04-16 Initial [facility] 1.2.745.747 [id number] Univers 12:54:24 14:25:19 Osvaldo C MACHINE MARKER 350.1.13.10 ity of Visit REGIONAL 4.2.7.2.686 [place] MATERNAL [phone] [facility] & CHILD [address] [place] [address] 2020-04-16 2020-04-[address] [facility] [id number] Univers 12:30:00 12:30:00 OSVALDO cole o f [facility] 2020-04-16 2020-04-16 Orders Doctor VIDYA [id number] Univers 00:00:00 00:00:00 Only Unassigned, MARIA LEENA [id number] ity of [place] [facility] 4.2.7.2.686 [place] [phone] [address] 2020-04-06 2020-04-06 Emergency [facility] [place] [id number] Univers 15:01:00 16:55:00 Marilee Murcia 350.1.13.10 ity of [place] 4.2.7.2.686 [place] [facility] [phone] [address] 2020-01-10 2020-01-10 Emergency X EROS, [facility] ERT [id number] Univers 17:11:44 22:23:00 JAYY ity of [facility] 2019-03-25 2019-03-25 [facility] [id number] Univers 07:56:38 11:39:00 Faviola Murcia 350.1.13.10 ity of [place] 4[place]2.7.2.686 [place] [phone] [address] 2018-07-13 2018-07-13 Emergency X [facility] [id number] Univers 09:57:43 13:30:00 EDDARIN kelsey [facility] Results Test Description Test Time Test Comments Results Result Comments Source US PELVIC 2018-03-16 CLINICAL (TRANSVAGINAL ONLY) 14:02:32 INDICATION: R10.2 Pelvic and perineal painTECHNIQUE:Real- time and doppler transvaginal ultrasound evaluation of the pelvis was performed on the [employer].Comparison study: No prior study.FINDINGS:Uter us: 8.2 [...] Reference Range Interpretation Comme nts POC-GLUCOSE METER ([facility]) (test 230 mg/dL 70-110 H TESTED AT [facility] [address] [facility] code = 1538) [facility] [address] POCT-GLUCOSE [id number] 08:32:00 Test Item Value Reference Range Interpretation Comments POC-GLUCOSE METER 70 mg/dL 70-110 TESTED AT [facility] [address] ST ([facility]) (test code = [facility] [facility] [place]) [place] [address] POCT-GLUCOSE [id number] 05:13:00 Test Item Value Reference Range Interpretation Comments POC-GLUCOSE METER 152 mg/dL 70-110 H TESTED AT [facility] [address] ([facility]) (test code [facility] = 1538) [place] [address] POCT-GLUCOSE [id number] 04:14:00 Test Item Value Reference Range Interpretation Comments POC-GLUCOSE METER 55 mg/dL 70-110 L TESTED AT [facility] [address] ([facility]) (test code = [facility] [place] 1538) [place] [address] POCT-GLUCOSE [id number] 20:37:00 Test Item Value Reference Range Interpretation Comments POC-GLUCOSE METER 204 mg/dL 70-110 H TESTED AT [facility] [address] [facility] (test code [facility] = 1538) [place] [address] POCT-GLUCOSE [id number] 19:01:00 Test Item Value Reference Range Interpretation Comments POC-GLUCOSE METER 88 mg/dL 70-110 TESTED AT [facility] [address] [facility] (test code = [facility] [place] 1538) [place] [address] POCT-GLUCOSE [id number] 17:27:00 Test Item Value Reference Range Interpretation Comments POC-GLUCOSE METER 253 mg/dL 70-110 H TESTED AT [facility] [address] ([facility] (test code [facility] = 1538) [place] [address] POCT-GLUCOSE [id number] 15:36:00 Test Item Value Reference Range Interpretation Comments POC-GLUCOSE METER 366 mg/dL 70-110 H TESTED AT [facility] [address] ([facility] (test code [facility] = 1538) [place] [address] POCT-GLUCOSE [id number] 11:51:00 Test Item Value Reference Range Interpretation Comments POC-GLUCOSE METER 194 mg/dL 70-110 H TESTED AT [facility] [address] ([facility] (test code [facility] = 1538) [place] [address] POCT-GLUCOSE [id number] 10:19:00 Test Item Value Reference Range Interpretation Comments POC-GLUCOSE METER 147 mg/dL 70-110 H TESTED AT [facility] [address] (BEAKER) (test code [facility] = 1538) [place] [address] BASIC METABOLIC [id number] 09:23:00 Test Item Value Reference Range Interpretation [...] NOT APPLICABLE FOR DIALYSIS PATIEN TS. POCT-GLUCOSE [id number] 08:02:00 Test Item Value Reference Range Interpretation Comments POC-GLUCOSE METER 161 mg/dL 70-110 H TESTED AT [facility] [address] (BEAKER) (test code [facility] = 1538) [place] [address] POCT-GLUCOSE [id number] 07:03:00 Test Item Value Reference Range Interpretation Comments POC-GLUCOSE METER 151 mg/dL 70-110 H TESTED AT [facility] [address] (BEAKER) (test code [facility] = 1538) [place] [address] POCT-GLUCOSE [id number] 05:08:00 Test Item Value Reference Range Interpretation Comments POC-GLUCOSE METER 158 mg/dL 70-110 H TESTED AT [facility] [address] (BEAKER) (test code [facility] = 1538) [place] [address] BASIC METABOLIC [id number] 04:51:00 Test Item Value Reference Range Interpretation [...] NOT APPLICABLE FOR DIALYSIS PATIEN TS. POCT-GLUCOSE [id number] 03:03:00 Test Item Value Reference Range Interpretation Comments POC-GLUCOSE METER 153 mg/dL 70-110 H TESTED AT [facility] [address] (BEAKER) (test code [facility] = 1538) [place] [address] POCT-GLUCOSE [id number] 02:09:00 Test Item Value Reference Range Interpretation Comments POC-GLUCOSE METER 159 mg/dL 70-110 H TESTED AT [facility] [address] (BEAKER) (test code [facility] = 1538) [place] [address] POCT-GLUCOSE [id number] 01:08:00 Test Item Value Reference Range Interpretation Comments POC-GLUCOSE METER 174 mg/dL 70-110 H TESTED AT [facility] [address] (BEAKER) (test code [facility] = 1538) [place] [address] BASIC METABOLIC [id number] 00:38:00 Test Item Value Reference Range Interpretation [...] NOT APPLICABLE FOR DIALYSIS PATIEN TS. POCT-GLUCOSE [id number] 00:37:00 Test Item Value Reference Range Interpretation Comments POC-GLUCOSE METER 198 mg/dL 70-110 H TESTED AT [facility] [address] ([facility]) [facility]38[facility] [place] [address] POCT-GLUCOSE [id number] 00:14:00 Test Item Value Reference Range Interpretation Comments POC-GLUCOSE METER 162 mg/dL 70-110 H TESTED AT [facility] [address] ([facility]) ([facility] 1538) [place] [address] POCT-GLUCOSE [id number] 23:39:00 Test Item Value Reference Range Interpretation Comments POC-GLUCOSE METER 149 mg/dL 70-110 H TESTED AT [facility] [address] ([facility]) ([facility] 1538) [place] [address] POCT-GLUCOSE [id number] 23:10:00 Test Item Value Reference Range Interpretation Comments POC-GLUCOSE METER 134 mg/dL 70-110 H TESTED AT [facility] [address] ([facility]) ([facility] 1538) [place] [address] POCT-GLUCOSE [id number] 22:41:00 Test Item Value Reference Range Interpretation Comments POC-GLUCOSE METER 112 mg/dL 70-110 H TESTED AT [facility] [address] ([facility]) (test [facility] 1538) [place] [address] POCT-GLUCOSE [id number] 21:59:00 Test Item Value Reference Range Interpretation Comments POC-GLUCOSE METER 95 mg/dL 70-110 TESTED AT [facility] [address] ([facility]) (test code = [facility] 1538) [place] [address] POCT-GLUCOSE [id number] 21:39:00 Test Item Value Reference Range Interpretation Comments POC-GLUCOSE METER 110 mg/dL 70-110 TESTED AT [facility] [address] ([facility]) (test [facility] 1538) [place] [address] POCT-GLUCOSE [id number] 21:07:00 Test Item Value Reference Range Interpretation Comments POC-GLUCOSE METER 114 mg/dL 70-110 H TESTED AT [facility] [address] ([facility]) (test [facility] 1538) [place] [address] BASIC METABOLIC [id number] 20:47:00 Test Item Value Reference Range Interpretation [...] NOT APPLICABLE FOR DIALYSIS PATIEN TS. POCT-GLUCOSE [id number] 20:17:00 Test Item Value Reference Range Interpretation Comments POC-GLUCOSE METER 176 mg/dL 70-110 H TESTED AT [facility] [address] (BEAKER) (test code [facility] = 1538) [place] [address] [id number] 19:09:00 Test Item Value Reference Range Interpretation Comments GLUCOSE RANDOM (BEAKER) (test code 230 mg/dL 70-110 H = 652) If last glucose was less than 500, may do bedside glucose instead of serum glucose.POCT-GLUCOSE [id number] 18:53:00 Test Item Value Reference Range Interpretation Comments POC-GLUCOSE METER 212 mg/dL 70-110 H TESTED AT [facility] [address] (BEAKER) (test code [facility] = 1538) [place] [address] POCT-GLUCOSE [id number] 17:14:00 Test Item Value Reference Range Interpretation Comments POC-GLUCOSE METER 145 mg/dL 70-110 H TESTED AT [facility] [address] (BEAKER) (test code [facility] = 1538) [place] [address] BASIC METABOLIC [id number] 16:51:00 Test Item Value Reference Range Interpretation [...] may do bedside glucose instead of serum glucose.[id number] 16:47:00 Test Item Value Reference Range Interpretation Comments GLUCOSE RANDOM (BEAKER) (test code 126 mg/dL 70-110 H = 652) If last glucose was less than 500, may do bedside glucose instead of serum glucose.POCT-GLUCOSE [id number] 16:04:00 Test Item Value Reference Range Interpretation Comments POC-GLUCOSE METER 119 mg/dL 70-110 H TESTED AT [facility] [address] (BEAKER) (test code [facility] = 1538) [place] [address] [id number] 14:30:00 Test Item Value Reference Range Interpretation Comments POTASSIUM (BEAKER) (test code = 3.9 meq/L 3.5-5.5 379) If last glucose was less than 500, may do bedside glucose instead of serum glucose.[id number] 14:30:00 Test Item Value Reference Range Interpretation Comments GLUCOSE RANDOM (BEAKER) (test code 190 mg/dL 70-110 H = 652) If last glucose was less than 500, may do bedside glucose instead of serum glucose.POCT-GLUCOSE [id number] 14:05:00 Test Item Value Reference Range Interpretation Comments POC-GLUCOSE METER 194 mg/dL 70-110 H TESTED AT [facility] [address] (BEAKER) (test code [facility] = 1538) [place] [address] POCT-GLUCOSE [id number] 13:15:00 Test Item Value Reference Range Interpretation Comments POC-GLUCOSE METER 229 mg/dL 70-110 H TESTED AT [facility] [address] (BEAKER) (test code [facility] = 1538) [place] [address] BASIC METABOLIC [id number] 12:44:00 Test Item Value Reference Range Interpretation [...] may do bedside glucose instead of serum glucose.[id number] 12:43:00 Test Item Value Reference Range Interpretation Comments GLUCOSE RANDOM (BEAKER) (test code 258 mg/dL 70-110 H = 652) If last glucose was less than 500, may do bedside glucose instead of serum glucose.POCT-GLUCOSE [id number] 12:03:00 Test Item Value Reference Range Interpretation Comments POC-GLUCOSE METER 238 mg/dL 70-110 H TESTED AT [facility] [address] (BEAKER) (test code [facility] = 1538) [place] [address] POCT-GLUCOSE [id number] 11:05:00 Test Item Value Reference Range Interpretation Comments POC-GLUCOSE METER 261 mg/dL 70-110 H TESTED AT [facility] [address] ([facility]) (test code [facility] = 1538) [place] [address] HEMOGLOBIN [id number] 10:07:00 Test Item Value Reference Range Interpretation Comments HEMOGLOBIN A1C (BEAKER) (test code = > % 4.3-6.1 H 368) [id number] 10:00:00 Test Item Value Reference Range Interpretation Comments GLUCOSE RANDOM (BEAKER) (test code 441 mg/dL 70-110 HH = 652) If last glucose was less than 500, may do bedside glucose instead of serum glucose.[id number] 09:55:00 Test Item Value Reference Range Interpretation Comments POTASSIUM (BEAKER) (test code = 4.1 meq/L 3.5-5.5 379) If last glucose was less than 500, may do bedside glucose instead of serum glucose.POCT-GLUCOSE [id number] 09:18:00 Test Item Value Reference Range Interpretation Comments POC-GLUCOSE METER > mg/dL 70-110 HH OUTSIDE ME ASURING (BEAKER) (test code RANGETES PRACHI AT [facility] [address] = 1538) [facility] [address] [id number] 09:15:00 Test Item Value Reference Range Interpretation Comments GLUCOSE RANDOM (BEAKER) (test code 585 mg/dL 70-110 HH = 652) If last glucose was less than 500, may do bedside glucose instead of serum glucose.COMPREHENSIVE METABOLIC [id number] 08:30:00 Test Item Value Reference Range Interpretation [...] PATIEN TS. CBC W/PLT COUNT & AUTO [id number] 08:29:00 Test Item Value Reference Range Interpretation [...] K/ L 0.00-0.20 (test code = 417) [id number] 08:25:00 Test Item Value Reference Range Interpretation Comments PHOSPHORUS (BEAKER) (test code = 4.0 mg/dL 2.5-4.5 604) [id number] 08:25:00 Test Item Value Reference Range Interpretation Comments MAGNESIUM (BEAKER) (test code = 2.0 mg/dL 1.5-3.0 627) SCREEN, [id number] 08:16:00 Test Item Value Reference Range Interpretation Comments TEST URINE (BEAKER) (test Negative code = 583) URINALYSIS W/ [id number] 08:16:00 Test Item Value Reference Range Interpretation [...] Rare SOURCE(BEAKER) (test code = 2795) KETONE, [id number] 08:09:00 Test Item Value Reference Range Interpretation Comments KETONES, BLOOD (BEAKER) (test code 6.1 mmol/L <0.4 H = 1103) PH, [id number] 08:08:00 Test Item Value Reference Range Interpretation Comments PH VENOUS (BEAKER) (test code = 701) 7.18 7.32-7.42 LL BLOOD [id number] 13:00:00 Test Item Value Reference Range Interpretation Comments CULTURE (BEAKER) (test No growth in 5 days code = 1095) BLOOD [id number] 13:00:00 Test Item Value Reference Range Interpretation Comments CULTURE (BEAKER) (test No growth in 5 days code = 1095) POCT-GLUCOSE [id number] 17:12:00 Test Item Value Reference Range Interpretation Comments POC-GLUCOSE METER 136 mg/dL 70-110 H TESTED AT [facility] [address] (BEAKER) (test code [facility] = 1538) [place] [address] POCT-GLUCOSE [id number] 16:37:00 Test Item Value Reference Range Interpretation Comments POC-GLUCOSE METER 45 mg/dL 70-110 L TESTED AT [facility] [address] (BEAKER) (test code = [facility] [place] 1538) [place] [address] POCT-GLUCOSE [id number] 11:32:00 Test Item Value Reference Range Interpretation Comments POC-GLUCOSE METER 98 mg/dL 70-110 TESTED AT [facility] [address] (BEAKER) (test code = [facility] [place] 1538) [place] [address] POCT-GLUCOSE [id number] 06:45:00 Test Item Value Reference Range Interpretation Comments POC-GLUCOSE METER 85 mg/dL 70-110 TESTED AT [facility] [address] (BEAKER) (test code = [facility] [place] 1538) [place] [address] [id number] 06:25:00 Test Item Value Reference Range Interpretation Comments PHOSPHORUS (BEAKER) (test code = 2.4 mg/dL 2.5-4.5 L 604) [id number] 06:25:00 Test Item Value Reference Range Interpretation Comments MAGNESIUM (BEAKER) (test code = 2.4 mg/dL 1.5-3.0 627) BASIC METABOLIC [id number] 06:25:00 Test Item Value Reference Range Interpretation [...] PATIEN TS. CBC W/PLT COUNT & AUTO [id number] 05:58:00 Test Item Value Reference Range Interpretation [...] L 0.00-0.20 (test code = 417) POCT-GLUCOSE [id number] 05:38:00 Test Item Value Reference Range Interpretation Comments POC-GLUCOSE METER 102 mg/dL 70-110 TESTED AT [facility] [address] (BEAKER) (test code [facility] = 1538) [place] [address] POCT-GLUCOSE [id number] 03:29:00 Test Item Value Reference Range Interpretation Comments POC-GLUCOSE METER 163 mg/dL 70-110 H TESTED AT [facility] [address] (BEAKER) (test code [facility] = 1538) [place] [address] POCT-GLUCOSE [id number] 03:29:00 Test Item Value Reference Range Interpretation Comments POC-GLUCOSE METER 155 mg/dL 70-110 H TESTED AT [facility] [address] (BEAKER) (test code [facility] = 1538) [place] [address] BASIC METABOLIC [id number] 01:42:00 Test Item Value Reference Range Interpretation [...] S NOT APPLICABLE FOR DIALYSIS PATIEN TS. [id number] 01:39:00 Test Item Value Reference Range Interpretation Comments PHOSPHORUS (BEAKER) (test code = 2.1 mg/dL 2.5-4.5 L 604) [id number] 01:39:00 Test Item Value Reference Range Interpretation Comments MAGNESIUM (BEAKER) (test code = 2.0 mg/dL 1.5-3.0 627) POCT-GLUCOSE [id number] 01:19:00 Test Item Value Reference Range Interpretation Comments POC-GLUCOSE METER 152 mg/dL 70-110 H TESTED AT [facility] [address] (BEAKER) (test code [facility] = 1538) [place] [address] POCT-GLUCOSE [id number] 01:07:00 Test Item Value Reference Range Interpretation Comments POC-GLUCOSE METER 145 mg/dL 70-110 H TESTED AT [facility] [address] (BEAKER) (test code [facility] = 1538) [place] [address] POCT-GLUCOSE [id number] 01:07:00 Test Item Value Reference Range Interpretation Comments POC-GLUCOSE METER 165 mg/dL 70-110 H TESTED AT [facility] [address] (BEAKER) (test code [facility] = 1538) [place] [address] POCT-GLUCOSE [id number] 01:07:00 Test Item Value Reference Range Interpretation Comments POC-GLUCOSE METER 163 mg/dL 70-110 H TESTED AT [facility] [address] (BEAKER) (test code [facility] = 1538) [place] [address] BASIC METABOLIC [id number] 20:59:00 Test Item Value Reference Range Interpretation [...] S NOT APPLICABLE FOR DIALYSIS PATIEN TS. [id number] 20:58:00 Test Item Value Reference Range Interpretation Comments MAGNESIUM (BEAKER) 1.8 mg/dL 1.5-3.0 Specimen slightly (test code = 627) hemolyzed [id number] 20:58:00 Test Item Value Reference Range Interpretation Comments PHOSPHORUS (BEAKER) 2.2 mg/dL 2.5-4.5 L Specimen slightly (test code = 604) hemolyzed POCT-GLUCOSE [id number] 18:02:00 Test Item Value Reference Range Interpretation Comments POC-GLUCOSE METER 176 mg/dL 70-110 H TESTED AT [facility] [address] (BEAKER) (test code [facility] = 1538) [place] [address] [id number] 16:46:00 Test Item Value Reference Range Interpretation Comments MAGNESIUM (BEAKER) 2.1 mg/dL 1.5-3.0 Specimen slightly (test code = 627) hemolyzed [id number] 16:46:00 Test Item Value Reference Range Interpretation Comments PHOSPHORUS (BEAKER) 2.1 mg/dL 2.5-4.5 L Specimen slightly (test code = 604) hemolyzed BASIC METABOLIC [id number] 16:46:00 Test Item Value Reference Range Interpretation [...] NOT APPLICABLE FOR DIALYSIS PATIEN TS. CALCIUM, [id number] 16:21:00 Test Item Value Reference Range Interpretation Comments CALCIUM IONIZED (BEAKER) (test 1.13 mmol/L 1.12-1.27 code = 698) PH, BLOOD (BEAKER) (test code = 7.30 1810) Check serum Ionized Calcium level after 4 hours after IV Calcium replacement. POCT-GLUCOSE [id number] 16:12:00 Test Item Value Reference Range Interpretation Comments POC-GLUCOSE METER 191 mg/dL 70-110 H TESTED AT [facility] [address] (BEAKER) (test code [facility] = 1538) [place] [address] POCT-GLUCOSE [id number] 15:20:00 Test Item Value Reference Range Interpretation Comments POC-GLUCOSE METER 181 mg/dL 70-110 H TESTED AT [facility] [address] ST (BEAKER) (test code [facility] = 1538) [place] [address] POCT-GLUCOSE [id number] 14:15:00 Test Item Value Reference Range Interpretation Comments POC-GLUCOSE METER 169 mg/dL 70-110 H TESTED AT [facility] [address] (BEAKER) (test code [facility] = 1538) [place] [address] BASIC METABOLIC [id number] 13:44:00 Test Item Value Reference Range Interpretation [...] NOT APPLICABLE FOR DIALYSIS PATIEN TS. POCT-GLUCOSE [id number] 13:24:00 Test Item Value Reference Range Interpretation Comments POC-GLUCOSE METER 157 mg/dL 70-110 H TESTED AT [facility] [address] ST (BEAKER) (test code [facility] = 1538) [place] [address] POCT-GLUCOSE [id number] 12:34:00 Test Item Value Reference Range Interpretation Comments POC-GLUCOSE METER 131 mg/dL 70-110 H TESTED AT [facility] [address] (BEAKER) (test code [facility] = 1538) [place] [address] POCT-GLUCOSE [id number] 11:39:00 Test Item Value Reference Range Interpretation Comments POC-GLUCOSE METER 160 mg/dL 70-110 H TESTED AT [facility] [address] (BEAKER) (test code [facility] = 1538) [place] [address] [id number] 11:13:00 Test Item Value Reference Range Interpretation Comments PROCALCITONIN (BEAKER) (test code = < ng/mL <0.05 3036) SEPSIS RISK (ng/mL)Low: 0.05-0.50Intermediate: 0.51-2.00High: >=2.01POCT- GLUCOSE [id number] 10:40:00 Test Item Value Reference Range Interpretation Comments POC-GLUCOSE METER 202 mg/dL 70-110 H TESTED AT [facility] [address] ST (BEAKER) (test code [facility] = 1538) [place] [address] [id number] 10:04:00 Test Item Value Reference Range Interpretation Comments PHOSPHORUS (BEAKER) 1.4 mg/dL 2.5-4.5 LL Specimen slightly (test code = 604) hemolyzed BASIC METABOLIC [id number] 10:04:00 Test Item Value Reference Range Interpretation [...] S NOT APPLICABLE FOR DIALYSIS PATIEN TS. [id number] 10:02:00 Test Item Value Reference Range Interpretation Comments MAGNESIUM (BEAKER) 1.8 mg/dL 1.5-3.0 Specimen slightly (test code = 627) hemolyzed POCT-GLUCOSE [id number] 09:36:00 Test Item Value Reference Range Interpretation Comments POC-GLUCOSE METER 212 mg/dL 70-110 H TESTED AT [facility] [address] ([facility]) (test code [facility] = 1538) [place] [address] POCT-GLUCOSE [id number] 08:43:00 Test Item Value Reference Range Interpretation Comments POC-GLUCOSE METER 268 mg/dL 70-110 H TESTED AT [facility] [address] ([facility]) (test code [facility] = 1538) [place] [address] [id number] 07:47:00 Test Item Value Reference Range Interpretation Comments [facility] (test code = 4.0 meq/L 3.5-5.5 379) If last glucose was less than 500, may do bedside glucose instead of serum glucose.[id number] 07:47:00 Test Item Value Reference Range Interpretation Comments GLUCOSE RANDOM ([facility]) (test code 370 mg/dL 70-110 H = 652) If last glucose was less than 500, may do bedside glucose instead of serum glucose.POCT-GLUCOSE [id number] 07:31:00 Test Item Value Reference Range Interpretation Comments POC-GLUCOSE METER 328 mg/dL 70-110 H Notified Rosalva Jama MD/TESTED AT ([facility]) (test code [facility] [address] [facility] = 1538) [facility] [place] [address] POCT-GLUCOSE [id number] 07:31:00 Test Item Value Reference Range Interpretation Comments POC-GLUCOSE METER 414 mg/dL 70-110 HH TESTED AT [facility] [address] (BEAKER) (test code [facility] = 1538) [place] [address] [id number] 06:57:00 Test Item Value Reference Range Interpretation Comments POTASSIUM (BEAKER) (test code = 4.5 meq/L 3.5-5.5 379) [id number] 06:51:00 Test Item Value Reference Range Interpretation Comments GLUCOSE RANDOM (BEAKER) (test code 523 mg/dL 70-110 HH = 652) If last glucose was less than 500, may do bedside glucose instead of serum glucose.URINALYSIS W/ REFLEX URINE [id number] 06:29:00 Test Item Value Reference Range Interpretation [...] (test code = 2795) RAPID INFLUENZA A&B [id number] 06:13:00 Test Item Value Reference Range Interpretation Comments RAPID INFLUENZA A AG (BEAKER) (test Negative Negative code = 1622) RAPID INFLUENZA B AG (BEAKER) (test Negative Negative code = 1623) SCREEN, [id number] 05:58:00 Test Item Value Reference Range Interpretation Comments TEST URINE (BEAKER) (test Negative code = 583) RAD, CHEST, 1 VIEW, NON [id number] 05:52:00Reason for exam:->EMESISReason for exam:->BLOOD SUGAR PROBLEMShould this be performed at the bedside?- >YesIs the patient ?->NoFINAL REPORT Comparison examination: 04/07/2017 No pneumothorax, focal pulmonary consolidation, or significant pleural effusion. Normal cardiomediastinal contours. Normal skeleton and soft tissues. Impression: No acute abnormality. Signed: Joesph Lopezeport Verified Date/Time: 05/18/2017 05:52:18 Reading Location: [address] Reading Room HEMOGLOBIN [id number] 05:49:00 Test Item Value Reference Range Interpretation Comments HEMOGLOBIN A1C (BEAKER) (test code = 13.2 % 4.3-6.1 H 368) BASIC METABOLIC [id number] 05:28:00 Test Item Value Reference Range Interpretation [...] bedside glucose instead of serum glucose.HEPATIC FUNCTION [id number] 05:27:00 Test Item Value Reference Range Interpretation [...] glucose instead of serum glucose.Specimen slightlylipemicBLOOD GAS, [id number] 05:04:00 Test Item Value Reference Range Interpretation [...] (test code = 1819) 21.0 % KETONE, [id number] 05:03:00 Test Item Value Reference Range Interpretation Comments KETONES, BLOOD (BEAKER) (test code 5.8 mmol/L <0.4 H = 1103) CBC W/PLT COUNT & AUTO [id number] 05:02:00 Test Item Value Reference Range Interpretation [...] L 0.00-0.20 (test code = 417) POCT-GLUCOSE [id number] 04:49:00 Test Item Value Reference Range Interpretation Comments POC-GLUCOSE METER > mg/dL 70-110 HH OUTSIDE ME ASURING (BEAKER) (test code RANGETES PRACHI AT [facility] [address] = 1538) [facility] [address] BLOOD [id number] 00:00:00 Test Item Value Reference Range Interpretation Comments CULTURE (BEAKER) (test No growth in 5 days code = 1095) BLOOD [id number] 00:00:00 Test Item Value Reference Range Interpretation Comments CULTURE (BEAKER) (test No growth in 5 days code = 1095) URINE [id number] 15:21:00 Test Item Value Reference Range Interpretation Comments CULTURE (BEAKER) (test >100,000 col/mL skin code = 1095) christophe POCT-GLUCOSE [id number] 14:37:00 Test Item Value Reference Range Interpretation Comments POC-GLUCOSE METER 326 mg/dL 70-110 H TESTED AT [facility] 67 ([facility]) (test code = SHARATH Blackwell [facility] 1538) [id number] POCT-GLUCOSE [id number] 13:26:00 Test Item Value Reference Range Interpretation Comments POC-GLUCOSE METER 331 mg/dL 70-110 H TESTED AT [place] [address] ([facility]) (test code = [facility] 1538) [address] CBC W/PLT COUNT & AUTO [id number] 11:34:00 Test Item Value Reference Range Interpretation [...] COUNTED (BEAKER) (test code = 1351) POCT-GLUCOSE [id number] 11:18:00 Test Item Value Reference Range Interpretation Comments POC-GLUCOSE METER 349 mg/dL 70-110 H TESTED AT [facility] 67 ([facility]) (test code = SH[place] 1538) [address] POCT-GLUCOSE [id number] 09:34:00 Test Item Value Reference Range Interpretation Comments POC-GLUCOSE METER 61 mg/dL 70-110 L TESTED AT [facility] 6720 ([facility]) (test code = SHARATH Blackwell [facility] [address] 1538) POCT-GLUCOSE [id number] 08:48:00 Test Item Value Reference Range Interpretation Comments POC-GLUCOSE METER 79 mg/dL 70-110 TESTED AT [place] [address] [facility] (test code = SHARATH Blackwell [facility] [address] 1538) BASIC METABOLIC [id number] 06:12:00 Test Item Value Reference Range Interpretation [...] NOT APPLICABLE FOR DIALYSIS PATIEN TS. KETONE, [id number] 05:43:00 Test Item Value Reference Range Interpretation Comments KETONES, BLOOD (BEAKER) (test code 0.1 mmol/L <0.4 = 1103) POCT-GLUCOSE [id number] 05:39:00 Test Item Value Reference Range Interpretation Comments POC-GLUCOSE METER 366 mg/dL 70-110 H TESTED AT [facility] 6720 (BEAKER) (test code = [facility] 1538) [address] POCT-GLUCOSE [id number] 22:32:00 Test Item Value Reference Range Interpretation Comments POC-GLUCOSE METER 302 mg/dL 70-110 H TESTED AT [place] [id number] (BEAKER) (test code = [facility] 1538) [address] POCT-GLUCOSE [id number] 19:15:00 Test Item Value Reference Range Interpretation Comments POC-GLUCOSE METER 273 mg/dL 70-110 H TESTED AT [place] [address] (BEAKER) (test code = SHARATH Blackwell [facility] 1538) [address] POCT-GLUCOSE [id number] 17:49:00 Test Item Value Reference Range Interpretation Comments POC-GLUCOSE METER 174 mg/dL 70-110 H TESTED AT [place] [address] ([facility]) (test code = SHARATH Blackwell [facility] 1538) [address] POCT-GLUCOSE [id number] 17:02:00 Test Item Value Reference Range Interpretation Comments POC-GLUCOSE METER 171 mg/dL 70-110 H TESTED AT [place] [address] ([facility]) (test code = SHARATH Blackwell [facility] 1538) [address] POCT-GLUCOSE [id number] 15:17:00 Test Item Value Reference Range Interpretation Comments POC-GLUCOSE METER 135 mg/dL 70-110 H TESTED AT [place] [address] ([facility]) (test code = SHARATH Blackwell [facility] 1538) [address] POCT-GLUCOSE [id number] 13:10:00 Test Item Value Reference Range Interpretation Comments POC-GLUCOSE METER 61 mg/dL 70-110 L TESTED AT [place] [address] ([facility]) (test code = [facility] Rosalva [facility] [address] 1538) POCT-GLUCOSE [id number] 11:21:00 Test Item Value Reference Range Interpretation Comments POC-GLUCOSE METER 57 mg/dL 70-110 L Notified Rosalva Jama MD/TESTED AT ([facility]) (test code = [address] 1538) [facility] [address] POCT-GLUCOSE [id number] 08:02:00 Test Item Value Reference Range Interpretation Comments POC-GLUCOSE METER 68 mg/dL 70-110 L Notified Rosalva Jama MD/TESTED AT ([facility]) (test code = [place] [id number]) [facility] 7703 0 CBC W/PLT COUNT & AUTO [id number] 08:02:00 Test Item Value Reference Range Interpretation Comments WHITE BLOOD CELL COUNT ([facility]) 6.6 K/ L 3.5-10.5 (test code = 775) RED BLOOD CELL COUNT ([facility]) 3.97 M/ L 3.93-5.22 (test code = 761) HEMOGLOBIN ([facility]) (test code = 11.2 GM/DL 11.2-15.7 410) [...] PERCENT (BEAKER) (test code = 2801) POCT-GLUCOSE [id number] 06:58:00 Test Item Value Reference Range Interpretation Comments POC-GLUCOSE METER 95 mg/dL 70-110 TESTED AT [facility] 6720 ([facility]) (test code = SH[place]ATH [place] [address] 1538) POCT-GLUCOSE [id number] 06:17:00 Test Item Value Reference Range Interpretation Comments POC-GLUCOSE METER 150 mg/dL 70-110 H TESTED AT [place] [address] ([facility] (test code = SHARATH Blackwell [facility] 1538) [address] POCT-GLUCOSE [id number] 05:18:00 Test Item Value Reference Range Interpretation Comments POC-GLUCOSE METER 101 mg/dL 70-110 TESTED AT [place] [address] ([facility] (test code = [place] [facility] 1538) [address] POCT-GLUCOSE [id number] 05:07:00 Test Item Value Reference Range Interpretation Comments POC-GLUCOSE METER 119 mg/dL 70-110 H TESTED AT [place] [address] ([facility] (test code = [facility] Rosalva [facility] 1538) [address] BASIC METABOLIC [id number] 04:52:00 Test Item Value Reference Range Interpretation [...] NOT APPLICABLE FOR DIALYSIS PATIEN TS. POCT-GLUCOSE [id number] 04:05:00 Test Item Value Reference Range Interpretation Comments POC-GLUCOSE METER 48 mg/dL 70-110 L TESTED AT [place] [address] (BEAKER) (test code = [place] [address] 1538) POCT-GLUCOSE [id number] 02:30:00 Test Item Value Reference Range Interpretation Comments POC-GLUCOSE METER 181 mg/dL 70-110 H TESTED AT [place] [id number] ([facility] (test code = SHARATH Blackwell [facility] 1538) [address] POCT-GLUCOSE [id number] 02:10:00 Test Item Value Reference Range Interpretation Comments POC-GLUCOSE METER 37 mg/dL 70-110 LL Will Repea t Test/TESTED (BEAKER) (test code = AT [facility] [address] 1538) [facility] 7703 0 POCT-GLUCOSE [id number] 01:07:00 Test Item Value Reference Range Interpretation Comments POC-GLUCOSE METER 87 mg/dL 70-110 TESTED AT [place] [address] ([facility] (test code = SHARATH Blackwell [facility] [address] 1538) BASIC METABOLIC [id number] 00:44:00 Test Item Value Reference Range Interpretation [...] NOT APPLICABLE FOR DIALYSIS PATIEN TS. POCT-GLUCOSE [id number] 00:30:00 Test Item Value Reference Range Interpretation Comments POC-GLUCOSE METER 96 mg/dL 70-110 TESTED AT [place] [address] ([facility] (test code = SHARATH Blackwell [facility] [address] 1538) POCT-GLUCOSE [id number] 23:54:00 Test Item Value Reference Range Interpretation Comments POC-GLUCOSE METER 91 mg/dL 70-110 TESTED AT [place] [address] (BEAKER) (test code = [facility] [address] 1538) POCT-GLUCOSE [id number] 23:12:00 Test Item Value Reference Range Interpretation Comments POC-GLUCOSE METER 48 mg/dL 70-110 L TESTED AT [place] [id number] (BEAKER) (test code = [facility] [address] 1538) POCT-GLUCOSE [id number] 21:58:00 Test Item Value Reference Range Interpretation Comments POC-GLUCOSE METER 94 mg/dL 70-110 TESTED AT [place] [address] (BEAKER) (test code = [facility] [address] 1538) BASIC METABOLIC [id number] 21:08:00 Test Item Value Reference Range Interpretation [...] NOT APPLICABLE FOR DIALYSIS PATIEN TS. POCT-GLUCOSE [id number] 20:57:00 Test Item Value Reference Range Interpretation Comments POC-GLUCOSE METER 165 mg/dL 70-110 H TESTED AT [facility] 6720 (BEAKER) (test code = [facility] 1538) [address] [id number] 20:55:00 Test Item Value Reference Range Interpretation Comments POTASSIUM (BEAKER) (test code = 3.6 meq/L 3.5-5.1 379) URINALYSIS W/ [id number] 20:40:00 Test Item Value Reference Range Interpretation [...] 516) SOURCE(BEAKER) (test code = 2795) POCT-GLUCOSE [id number] 19:59:00 Test Item Value Reference Range Interpretation Comments POC-GLUCOSE METER 282 mg/dL 70-110 H TESTED AT [facility] 6720 (BEAKER) (test code = SHARATH Blackwell [facility] 1538) [address] POCT-GLUCOSE [id number] 19:02:00 Test Item Value Reference Range Interpretation Comments POC-GLUCOSE METER 374 mg/dL 70-110 H Notified R Evita DAVIS/TESTED (BEAKER) (test code = AT [facility] 6720 [facility] 1538) [facility] 7703 0 CBC W/PLT COUNT & AUTO [id number] 18:56:00 Test Item Value Reference Range Interpretation [...] PERCENT (BEAKER) (test code = 2801) POCT-GLUCOSE [id number] 18:03:00 Test Item Value Reference Range Interpretation Comments POC-GLUCOSE METER 294 mg/dL 70-110 H TESTED AT [facility] 6720 ([facility]) (test code = SH[place] 1538) [address] HEMOGLOBIN [id number] 17:45:00 Test Item Value Reference Range Interpretation Comments HEMOGLOBIN A1C ([facility]) (test code = 12.6 % 4.3-6.1 H 368) RAD, CHEST, 1 VIEW, NON [id number] 17:20:00Reason for exam:->sobShould this be performed at [...] [place] Verified Date/Time: 04/07/2017 17:20:50 Reading Location: [address] Radiology Reading Room TSH/FREE T4 IF [id number] 17:04:00 Test Item Value Reference Range Interpretation Comments THYROID STIMULATING HORMONE 0.95 uIU/mL 0.35-4.94 ([facility]) (test code = 772) TROPONIN [id number] 16:51:00 Test Item Value Reference Range Interpretation [...] failure, acidosis, acute neurological disease, and persistent tachyarrhythmia.[id number] 16:45:00 Test Item Value Reference Range Interpretation Comments LIPASE ([facility]) (test code = 749) 33 U/L 8-78 [id number] 16:45:00 Test Item Value Reference Range Interpretation Comments AMYLASE (BEAKER) (test code = 349) 66 U/L 25-125 BASIC METABOLIC [id number] 16:45:00 Test Item Value Reference Range Interpretation [...] DIALYSIS PATIEN TS. LACTIC ACID, VENOUS, WHOLE [id number] 16:45:00 Test Item Value Reference Range Interpretation Comments LACTATE BLOOD VENOUS (2) (BEAKER) 1.1 mmol/L 0.5-2.2 (test code = 2872) Effective 12/05/2015: Units/Reference Range ChangeNew: 0.5-2.2 mmol/L Previous: 5- 20 mg/dLKETONE, [id number] 16:41:00 Test Item Value Reference Range Interpretation Comments KETONES, BLOOD (BEAKER) (test code 2.1 mmol/L <0.4 H = 1103) BLOOD GAS, [id number] 16:27:00 Test Item Value Reference Range Interpretation Comments PH VENOUS (BEAKER) (test code = 7.36 7.32-7.42 701) PCO2 VENOUS (BEAKER) (test code = 41 mmHg 41-51 755) PO2 VENOUS (BEAKER) (test code = 18 mmHg 25-40 L 702) O2 SATURATION VENOUS (BEAKER) 26.4 % 40.0-70.0 L (test code = 703) HCO3 VENOUS ([facility]) (test code = 23 mmol/L 21-29 705) BASE EXCESS VENOUS ([facility]) (test -2.5 mmol/L -2.0-3.0 L code = 704) PATIENT TEMPERATURE ([facility]) 37.0 C (test code = 1818) POCT-GLUCOSE [id number] 16:20:00 Test Item Value Reference Range Interpretation Comments POC-GLUCOSE METER 156 mg/dL 70-110 H TESTED AT [place] [address] ([facility]) ([facility] = [facility] 1538) [address] POCT-GLUCOSE [id number] 15:28:00 Test Item Value Reference Range Interpretation Comments POC-GLUCOSE METER 101 mg/dL 70-110 TESTED AT [place] [address] ([facility]) (test code = [facility] [place] [facility] 1538) [address]
--- NOTE | 2022-05-26 17:07 | ER ---
Nurse's Notes [facility] Name: Salome Santacruz Age: 22 yrs Sex: Female : 2000 Arrival Date: 05/26/2022 Time: 16:30 Bed Treatment Private MD: Diagnosis: Encounter for removal of sutures Presentation: 05/26 16:38 Chief complaint: Patient states: suture removal from Left thumb that was placed on vg1 05/19/22, denies pain. Onset of symptoms was May 19, 2022. 16:38 Method Of Arrival: Ambulatory vg1 16:38 Acuity: BRIAN 5 vg1 16:38 Coronavirus screen: Client denies travel out of the [place] in the last 14 days. Ebola vg1 Screen: Patient negative for fever greater than or equal to 101.5 degrees Fahrenheit, and additional compatible Ebola Virus Disease symptoms Patient denies exposure to infectious person. Risk Assessment: Do you want to hurt yourself or someone else? Patient reports no desire to harm self or others. 17:12 Initial Sepsis Screen: Does the patient meet any 2 criteria? No. Patient's initial kr3 sepsis screen is negative. Does the patient have a suspected source of infection? No. Patient's initial sepsis screen is negative. Triage Assessment: 16:39 General: Appears in no apparent distress. comfortable, Behavior is calm, cooperative. vg1 Pain: Denies pain. 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 - Social history:: Smoking status: Patient denies any tobacco usage or history of. Screenin:40 Abuse screen: Denies threats or abuse. Nutritional screening: No deficits noted. vg1 Tuberculosis screening: No symptoms or risk factors identified. Fall Risk None identified. Assessment: 17:11 Reassessment: No changes from previously documented assessment. Patient is alert, kr3 oriented x 3, equal unlabored respirations, skin warm/dry/pink. Vital Signs: 16:38 BP 110 / 77; Pulse 92; Resp 14; Temp 97.9; Pulse Ox 100% ; Weight 63.5 kg; Height 5 ft. vg1 4 in. (162.56 cm); Pain 0/10; 17:11 BP 112 / 78; Pulse 91; Resp 16; Pulse Ox 100% on R/A; kr3 16:38 Body Mass Index 24.03 (63.50 kg, 162.56 cm) vg1 ED Course: 16:30 Patient arrived in ED. am2 16:32 Dre Brothers PA is PHCP. cp 16:33 Joe Carreon MD is Attending Physician. cp 16:39 Triage completed. vg1 16:39 Arm band placed on. vg1 16:40 Patient has correct armband on for positive identification. vg1 16:40 Patient did not have IV access during this emergency room visit. vg1 16:41 Agustina Reinoso, VI is Primary Nurse. kr3 17:11 No provider procedures requiring assistance completed. kr3 Administered Medications: No medications were administered Medication: 17:12 VIS not applicable for this client. kr3 Outcome: 17:07 Discharge ordered by MD. cp 17:11 Discharged to home ambulatory. kr3 17:11 Condition: stable 17:11 Discharge instructions given to patient, Instructed on discharge instructions, wound care. 17:11 No charge visit due to suture removal. 17:13 Patient left the ED. kr3 Signatures: Dre Brothers PA PA Manda Oconnor am2 Sindy Rocha RN RN vg1 Agustina Reinoso RN RN kr3
--- NOTE | 2022-05-26 17:07 | EDPHYS ---
Physician Documentation [facility] Name: Salome Santacruz Age: 22 yrs Sex: Female : 2000 Arrival Date: 05/26/2022 Time: 16:30 Bed Treatment Private MD: ED Physician Joe Carreon HPI: 05/26 16:55 This 22 yrs old Female presents to ER via Ambulatory with complaints of Suture Removal. cp 16:55 The patient has sutures on the tip of distal phalanx left thumb. Previous treatment: cp The patient was initially treated on May 19, 2022, the care was rendered at [facility], Treatment type: The patient's original treatment included sutures. Sutures/bay progress: The patient has no c/o's. The wound is well-healing with no redness, swelling, discharge, or dehiscence reported. 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 - Social history:: Smoking status: Patient denies any tobacco usage or history of. ROS: 17:00 Constitutional: Negative for fever. cp 17:00 Skin: Positive for of the tip of distal phalanx left thumb, history of laceration. cp 17:00 All other systems are negative. Exam: 17:03 Constitutional: The patient appears in no acute distress, alert, awake, comfortable, cp non-toxic, well developed, well nourished. 17:03 Skin: Wound recheck: Suture laceration closure: the wound is healing well, the edges cp are well approximated, no evidence of dehiscence, no drainage, no erythema, no swelling, [address] Vital Signs: 16:38 BP 110 / 77; Pulse 92; Resp 14; Temp 97.9; Pulse Ox 100% ; Weight 63.5 kg; Height 5 ft. vg1 4 in. (162.56 cm); Pain 0/10; 17:11 BP 112 / 78; Pulse 91; Resp 16; Pulse Ox 100% on R/A; kr3 16:38 Body Mass Index 24.03 (63.50 kg, 162.56 cm) vg1 Procedures: 17:05 Suture/Staple removal: Removed 3 sutures, from distal phalanx left thumb, site appears cp well healed, dressed with band aid, Neosporin, Patient tolerated well. MDM: 16:52 Patient medically screened. cp 17:07 Data reviewed: vital signs, nurses notes, and as a result, I will discharge patient. cp 17:07 Counseling: I had a detailed discussion with the patient and/or guardian regarding: the cp historical points, exam findings, and any diagnostic results supporting the discharge/admit diagnosis, to return to the emergency department if symptoms worsen or persist or if there are any questions or concerns that arise at home. Response to treatment: the patient's symptoms have markedly improved after treatment, and as a result, I will discharge patient. Administered Medications: No medications were administered Disposition Summary: 05/26/22 17:07 Discharge Ordered Location: Home cp Problem: new cp Symptoms: have improved cp Condition: Stable cp Diagnosis - Encounter for removal of sutures cp Followup: cp - With: Emergency Department - When: As needed - Reason: Worsening of condition Discharge Instructions: - Discharge Summary Sheet cp - Suture Removal, Care After cp Forms: - Medication Reconciliation Form cp - Thank You Letter cp - Antibiotic Education cp - Prescription Opioid Use cp Addendum: 05/29/2022 06:29 Co-signature as Attending Physician, Joe Carreon MD. r n Signatures: Joe Carreon MD MD rn Page, Corey, PA PA cp Garcia, Victoria RN RN vg1 Agustina Reinoso RN RN kr3
[2022-05-26 17:30] VITALS: TEMP 97.9; O2SAT 100
[2022-05-26 17:34] VITALS: BP 112/78
== END 2022-05-26 17:13 | disposition home or self-care (01) ==
LOC: ER 16:26
DX: Z48.02 Encounter for removal of sutures (principal)

== ENCOUNTER 2022-07-08 11:05 | Emergency (ER) | payer OTHER ==
--- OUTSIDE RECORDS SUMMARY | 2022-07-08 11:20 | XMS REPORT | Continuity of Care Document ---
:[address] [facility] t Address [address] [place] [address] Care Team Providers Name Role Phone Inessa DAVIS, Cori A Primary Care Physician Unavailable AGNES JAIME Attending Clinician Unavailable AGNES JAIME Attending Clinician Unavailable ELEANOR SEXTON Attending Clinician Unavailable ELEANOR SEXTON Attending Clinician Unavailable Ebrahicarrillo TRAFFIC TECHNICIAN, Tien Attending Clinician EBDONELLMTIEN Attending Clinician Unavailable Unknown, Attending Attending Clinician Unavailable Jacqui Espinal MD Attending Clinician MARILEE KURTZ Attending Clinician Unavailable Rehana PROTOTYPE ENGINEER MANAGER, Marilee Robles Attending Clinician Gaby Chan RN Attending Clinician Unavailable Caroline TRAFFIC TECHNICIAN, Sammie Angeles Attending Clinician SAMMIE VELAZQUEZ Attending Clinician Unavailable Doctor Unassigned, [place] Attending Clinician Unavailable RAUL HAMMOND Attending Clinician Unavailable JAMIE FLAHERTY Attending Clinician Unavailable Jamie Flaherty DO Attending Clinician MARITZA VINES Attending Clinician Unavailable Green TRAFFIC TECHNICIAN, Bill Attending Clinician Manish TRAFFIC TECHNICIAN, Raul Attending Clinician Arturo Carter RN Attending Clinician Unavailable Only, Ang Db Test Attending Clinician Unavailable Geo Cedeño MD Attending Clinician GEO CEDEÑO Attending Clinician Unavailable Annette Moon RN Attending Clinician Unavailable Simone TRAFFIC TECHNICIAN, Dustin Attending Clinician DUSTIN NICHOLS Attending Clinician Unavailable Abraham Marcos PT Attending Clinician Unavailable Marcella Casey MD Attending Clinician MARCELLA CASEY Attending Clinician Unavailable JOHANNA APONTE Attending Clinician Unavailable Johanna Aponte MD Attending Clinician Sonal Chao NP Attending Clinician RADHA ABREU Attending Clinician Unavailable Radha Abreu DO Attending Clinician SONAL CHAO Attending Clinician Unavailable Sandeep Monreal MD Attending Clinician OSVALDO SCHULTE Attending Clinician Unavailable Alesha DAVIS, Latrice Sparks Attending Clinician FINLEY, ROSHUNDA R Attending Clinician Unavailable Lab, Ang - Db Attending Clinician Unavailable Malia AVALOSP, Johnathana R Attending Clinician LATRICE EDUARDO Attending Clinician Unavailable COREY DURAN Attending Clinician Unavailable COREY DURAN Attending Clinician Unavailable JUNITO LEE Attending Clinician Unavailable Pat Barajas S Attending Clinician PAT POZO S Attending Clinician Unavailable Corey Duran MD Attending Clinician Paul LEBRON, Kiley Narayan Attending Clinician LENORA ORTIZ Attending Clinician Unavailable Lenora Ortiz MD Attending Clinician Abraham Chaidez MD Attending Clinician Maritza Santiago Attending Clinician JAQUELIN HERNANDEZ Attending Clinician Unavailable Jaquelin Hernandez MD Attending Clinician SENIA ARIAS Attending Clinician Unavailable JANE HERNANDEZ Attending Clinician Unavailable David TRAFFIC TECHNICIAN, Jane Angeles Attending Clinician Michele LEBRON, Villa Cook Attending Clinician Unavailable BILL YOUSIF Attending Clinician Unavailable [facility] Attending Clinician Unavailable KARLA SMITH Attending Clinician Unavailable ARTURO GREENE Attending Clinician Unavailable JOSIE SALMERON Attending Clinician [...] MD Attending Clinician Pgy2 Attending Clinician Unavailable Dillon BURRIS, Claudia Marshall Attending Clinician Akinsipe WHCNP, Osvaldo C Attending Clinician [phone] Provider, [facility] Attending Clinician Unavailable Kelton DAVIS, Graham Collins Attending Clinician JASWINDER LOJA Attending Clinician Unavailable ELEAZAR GIBBS Attending Clinician Unavailable Lab, Adc Fam Pob I Attending Clinician Unavailable Ki BURRIS, Jemima S Attending Clinician Zbigniew DAVIS, Jaswinder Attending Clinician Anna Medel Attending Clinician Sophie LEBRON, Yesenia Attending Clinician Unavailable Visit, Ang-Rmchp Nurse Attending Clinician Unavailable Faculty, Ang Rmchp Mfm Attending Clinician Unavailable Lauri DAVIS, Basia Narayan Attending Clinician Abisai DAVIS, Vidya Taylor Attending Clinician VIDYA DEAN Attending Clinician Unavailable Fellow, Christiano Leongm Attending Clinician Unavailable Aaron Li MD Attending Clinician Thompson Sethi MD Attending Clinician Risk, Pkp-Rnaip-Bk/High Attending Clinician Unavailable George Tania NAVARRO Attending Clinician TANIA VAZQUEZ Attending Clinician Unavailable AARON LI Attending Clinician Unavailable AARON LI Attending Clinician Unavailable Ino Demarco MD, Dio Attending Clinician [phone] Marta Pearson MD Attending Clinician NICHOLE REAL Attending Clinician Unavailable Alexander AVALOSP, Delma Attending Clinician Sailaja [facility] Attending Clinician Nichole Real MD Attending Clinician Ultrasound, Harvey-Mfcarrillo Attending Clinician Unavailable Cedrick DAVIS, Adelaida Cook Attending Clinician Efrem TRAFFIC TECHNICIANSherry Attending Clinician ABIMBOLA GILL Attending Clinician Unavailable Bill DAVIS, Celena Attending Clinician Altamirano DO, Sameer Attending Clinician Carla Alegre MD Attending Clinician DIO ABBOTT Attending Clinician Unavailable Darian Coley MD Attending Clinician JAYY COONEY Attending Clinician Unavailable EDDIE HARRIS Attending Clinician Unavailable ADVY CRAWLEY Attending Clinician Unavailable RAFA HODGES Attending Clinician Unavailable TOMER CHACON Attending Clinician UnavailVIDYA Leonard Admitting Clinician Unavailable THOMPSON SETHI Admitting Clinician Unavailable DIO ABBOTT Admitting Clinician Unavailable ADELAIDA PHILIP Admitting Clinician Unavailable AARON LI Admitting Clinician Unavailable LATRICE EDUARDO Admitting Clinician Unavailable ABRAHAM CHAIDEZ Admitting Clinician Unavailable Abraham Chaidez MD Admitting Clinician JANE HERNANDEZ Admitting Clinician Unavailable LENORA ORTIZ Admitting Clinician Unavailable Nirav [place] MD Admitting Clinician Vidya Dean MD Admitting Clinician Thompson Sethi MD Admitting Clinician Dio Abbott MD Admitting Clinician [phone] Nichole Real MD Admitting Clinician Adelaida Philip MD Admitting Clinician Aaron Li MD Admitting Clinician JAYY COONEY Admitting Clinician Unavailable EDDIE HARRIS Admitting Clinician Unavailable EDENILSON HANSEN Admitting Clinician Unavailable JOHNY SAM Admitting Clinician Unavailable TOMER CHACON Admitting Clinician Unavailtanvi chowdhury Payers Payer Name Policy Type Policy Number Effective Date Expiration Date Anastasiya WINSLOW [id number] 2020 HEALTH 00:00:00 MEDICAID PENDING PENDING 2020 00:00:00 PHCS GENERIC [id number] 2018 2018 00:00:00 00:00:00 Problems Condition Condition [...] 4-18 ity of goal goal 00:00: [place] [facility] Branch Chronic Chronic Disease Active Univers pain of pain of 4-01 [place]y of both knees both knees [place] Chronic Chronic Disease Active Univers pain of pain of 4- [place] of [place] hips [place] Tachycardi Tachycardi Disease Active U nivers a a 4-01 ity of 00:00: [place] [facility] Branch Hyperglyce Hyperglyce Disease Active U nivers pablo pablo 8-13 ity of 00:00: [place] [facility] Diabetic Diabetic Disease Active Unive rs gastropare gastropare 8-05 it y of sis sis 00:00: [place] [facility] Branch Screening Screening Disease Active Uni vers examinatio examinatio 4-14 it y of n for STD n for STD 00:[place] ([place]ually (sexually 00 Medi ruben transmitte transmitte Br anch d disease) d disease) 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 4-14 ity of mellitus mellitus 00:00: [place] with with 00 Medical diabetic diabetic Branch autonomic autonomic neuropathy neuropathy Well woman Well woman Disease Active U nivers exam exam 3-24 ity of 00:00: [place] [facility] Acute Acute Disease Active Univers blood loss blood loss 3-02 it y of anemia anemia 00:00: [place] [facility] Diabetic Diabetic Disease Active Unive rs ketoacidos ketoacidos 2-01 it y of is without is without [place] coma coma 00 Medical associated associated Br anch with type with type 1 diabetes 1 diabetes mellitus mellitus Bipolar Bipolar Disease Active 2021-0 Univers disease disease 1-14 ity of during during 00:00: [place] , , 00 Me dical antepartum antepartum Br anch Dysuria Dysuria Disease Active Univers 1-06 ity of 00:00: [place] [facility] Vaginal Vaginal Disease Active Univers itching itching 1-06 ity of 00:00: [address] Branch Vaginal Vaginal Disease Active 2019-08 Univers bleeding bleeding 0-22 ity of 00:00: [place] [facility] Branch Diabetic Diabetic Disease Active 2016-08 [facility] keto[facility] ketoacidos 1-15 [facility] kes is without is without 00:00: Me dical coma coma 00 Center associated associated with with diabetes diabetes mellitus mellitus due to due to underlying underlying condition condition Dyspareuni Dyspareuni Disease Active 2016-08 U nivers a in a in 0-25 ity of female female 00:00: [place] [facility] Diabetic Diabetic Disease Active 2016-08 [facility] ketoacidos ketoacidos 0-16 Linette kes is without is without 00:00: Me dical coma coma 00 Center associated associated with type with type 1 diabetes 1 diabetes mellitus mellitus History of History of Disease Active U nivers tubal tubal 9-12 ity of ligation ligation 00:00: [place] [facility] Branch DKA, type DKA, type Disease Active [facility] Nausea Nausea Disease [facility] Center 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 wellbutri n 1 yr ago- self d/c. Attention Attention Disease Active Overview: Univers deficit deficit 3-17 Formattin ity o f hyperactiv hyperactiv 00:00: g of this [place] ity ity 00 note Medical disorder disorder might be Bran ch (ADHD) (ADHD) different from the original. ICD10 Diagnosis Term Assembler Trim Utility Allergies, Adverse Reactions, Alerts Allergy Allergy Status Severity Reaction(s) Onset Inactive Treating Comm ents Source Name Type Date Date Clinician CEPHALEX DRUG Active Hives Univers IN INGREDI 9-07 ity of 00:00: [address] Branch Cephalex Propensi Active Hiv Univer s in ty to 07 ity of adverse 00:00: [place] reaction 00 [...] Bumps in [facility] to [facility] adverse 00:00: Medical reaction 00 Center s Prometha Propensi Active Anxiety Severe [facility] zine ty to 04-07 anxiety [facility] adverse 00:00: attacks Medical reaction [...] Stop Date Quantity Comments Source Exposure to 2022-06-23 2022-07-03 Not sure University of SARS-CoV-2 00:00:00 16:46:00 [facility] [place] Alcohol intake 2017-06-17 2017-06-[address] [facility] 00:00:00 00:00:00 non-drinker of Medical Ce nter alcohol (finding) Tobacco use and 2017-04-07 2017-04-[address] Linette kes exposure 00:00:00 00:00:00 Medical Center History of 2012-04-14 2015-04-14 [facility] use [facility]:00 00:00:00 [facility] Sex Assigned At [birth year] LISA Mccormack 00:00:00 00:00:00 [facility] Smoking Status Start Date Stop Date Source Ex-smoker 2022-05-26 00:00:00 2022-05-26 00:00:00 [facility] Medications Ordered Filled Start Stop Current Ordering Indication Dosage Frequency Signature Comments Components Source Medication Medication Date Date Medication? Clinician (SIG) Name Name metroNIDAZO 2021-08- Yes [id number] 500mg Take 1 Univers LE (FLAGYL) 09-04 tablet by it y of 500 mg 00:00: 05:59 mouth [place] tablet 00 :00 every 12 Medical (twelve) Branch hours for 7 days. fluconazole 2021-08- Yes [id number] 150mg Take 1 Univers (DIFLUCAN) 09-04 tablet by ity of 150 mg 00:00: 05:59 mouth [place] tablet 00 :00 every 72 Medical (seventy-t Branch wo) hours for 2 doses. Nitrofurant 2021-08- Yes [id number] 100mg Take 1 Univers oin&Nit. 2-07-11 capsule by ity of Macrocryst 00:00: 05:59 mouth [place] (MACROBID) 00 :00 the Medical 100 mg morning Branch capsule and 1 capsule in the evening. Do all this for 7 days. Nitrofurant 2021-08- Yes [id number] 100mg Take 1 Univers oin&Nit. 09-03 capsule by ity of Macrocryst 00:00: 05:59 [place] (MACROBID) 00 :00 the Medical 100 mg morning Branch capsule and 1 capsule in the evening. Do all this for 7 days. Nitrofurant 2021-08- Yes [id number] 100mg Take 1 Univers oin&Nit. 2-07-11 capsule by ity of Macrocryst 00:00: 05:59 mouth in [place] (MACROBID) 00 :00 the Medical 100 mg morning Branch capsule and 1 capsule in the evening. Do all this for 7 days. Nitrofurant 2021-08- Yes [id number] 100mg Take 1 Univers oin&Nit. 207-11 capsule by ity of Macrocryst 00:00: 05:59 mouth [place] (MACROBID) 00 :00 the Medical 100 mg morning Branch capsule and 1 capsule in the evening. Do all this for 7 days. DULOXETINE 2021-08 Yes [id number] TAKE ONE Univers 20 mg 1-18 CAPSULE BY ity of capsule 00:00: MOUTH [place] 00 EVERY Medical MORNING Branch DULOXETINE 2021-08 Yes [id number] TAKE ONE Univers 20 mg 1-18 CAPSULE BY ity of capsule 00:00: MOUTH [place] 00 EVERY Medical MORNING Branch DULOXETINE 2021-08 Yes [id number] TAKE ONE Univers 20 mg 1-18 CAPSULE BY ity of capsule 00:00: MOUTH [place] 00 EVERY Medical MORNING Branch DULOXETINE 2021-08 Yes [id number] TAKE ONE Univers 20 mg 1-18 CAPSULE BY ity of capsule 00:00: MOUTH [place] 00 EVERY Medical MORNING Branch DULOXETINE 2021-08 Yes [id number] TAKE ONE Univers 20 mg 1-18 CAPSULE BY ity of capsule 00:00: MOUTH [place] 00 EVERY Medical MORNING Branch DULOXETINE 2021-08 Yes [id number] TAKE ONE Univers 20 mg 1-18 CAPSULE BY ity of capsule 00:00: MOUTH [place] 00 EVERY Medical MORNING Branch DULOXETINE 2021-08 Yes [id number] TAKE ONE Univers 20 mg 1-18 CAPSULE BY ity of capsule 00:00: MOUTH [place] 00 EVERY Medical MORNING Branch DULoxetine 2021-08- No 20mg 20 mg, Univ ers (CYMBALTA) 0-28 10-28 Oral, ity of capsule 20 20:45: 20:26 ONCE, 1 [place] mg 00 :00 dose, On Medical Thu Branch 05/30/22 at 1545, Routine ketorolac 2021-08 No 30mg 30 mg, Unive rs (TORADOL) 005-30 Slow IV ity of injection 20:45: 20:02 Push, [place] 30 mg 00 :00 ONCE, 1 Medical dose, On Branch 05/30/22 at 1545, Routine NaCl 0.9% 2021-08 No 1000mL at 1,000 U nivers (NS) IV 0-28 10-28 mL/hr, ity of infusion 20:15: 21:00 [place]venou [place] 1,000 mL 00 :00 s, ONCE, 1 Medic al dose, On Branch Thu05/30/22 at 1515, [facility] insulin 2021-08 No .1U/kg 6.21 Units U nivers regular 05-30 (0.1 ity of human 19:45: 20:00 Units/kg [place] (HUMULIN R) 00 :00 ?62.1 kg), Me dical injection Subcutaneo Bran ch 6.21 Units us, ONCE, 1 dose, On Thu05/30/22 at 1445, STAT<br&gt ;Indicatio n for insulin: Hyperglyce pablo NaCl 0.9% 2021-08 No 1000mL at 999 Uni vers (NS) bolus 0-28 10-28 mL/hr, ity of infusion 19:00: 19:30 1,000 mL, [place] 1,000 mL 00 :00 IV Medical Infusion, Branch ONCE, 1 dose, On Thu05/30/22 at 1400, THIEN ondansetron 2021-08 Yes [id number] 4mg Take 1 U nivers 4 mg 0-28 tablet by ity of disintegrat 00:00: mouth [place] ing tablet 00 every 8 Medica l (eight) Branch hours as needed for Nausea and Vomiting (N/V). ondansetron 2021-08 Yes [id number] 4mg Take 1 U nivers 4 mg 0-28 tablet by ity of disintegrat 00:00: mouth [place] ing tablet 00 every 8 Medica l (eight) Branch hours as needed for Nausea and Vomiting (N/V). ondansetron 2021-08 Yes [id number] 4mg Take 1 U nivers 4 mg 0-28 tablet by ity of disintegrat 00:00: mouth [place] ing tablet 00 every 8 Medica l (eight) Branch hours as needed for Nausea and Vomiting (N/V). ondansetron 2021-08 Yes [id number] 4mg Take 1 U nivers 4 mg 0-28 tablet by ity of disintegrat 00:00: mouth [place] ing tablet 00 every 8 Medica l (eight) Branch hours as needed for Nausea and Vomiting (N/V). ondansetron 2021-08 Yes [id number] 4mg Take 1 U nivers 4 mg 0-28 tablet by ity of disintegrat 00:00: mouth [place] ing tablet 00 every 8 Medica l (eight) Branch hours as needed for Nausea and Vomiting (N/V). ondansetron 2021-08 Yes [id number] 4mg Take 1 U nivers 4 mg 0-28 tablet by ity of disintegrat 00:00: mouth [place] ing tablet 00 every 8 Medica l (eight) Branch hours as needed for Nausea and Vomiting (N/V). ondansetron 2021-08 Yes [id number] 4mg Take 1 U nivers 4 mg 0-28 tablet by ity of disintegrat 00:00: mouth [place] ing tablet 00 every 8 Medica l (eight) Branch hours as needed for Nausea and Vomiting (N/V). ondansetron 2021-08 Yes [id number] 4mg Take 1 U nivers 4 mg 0-28 tablet by ity of disintegrat 00:00: mouth [place] ing tablet 00 every 8 Medica l (eight) Branch hours as needed for Nausea and Vomiting (N/V). ondansetron 2021-08 Yes [id number] 4mg Take 1 U nivers 4 mg 0-28 tablet by ity of disintegrat 00:00: mouth [place] ing tablet 00 every 8 Medica l (eight) Branch hours as needed for Nausea and Vomiting (N/V). ondansetron 2021-08 Yes [id number] 4mg Take 1 U nivers 4 mg 0-28 tablet by ity of disintegrat 00:00: mouth [place] ing tablet 00 every 8 Medica l (eight) Branch hours as needed for Nausea and Vomiting (N/V). ondansetron 2021-08 Yes [id number] 4mg Take 1 U nivers 4 mg 0-28 tablet by ity of disintegrat 00:00: mouth [place] ing tablet 00 every 8 Medica l (eight) Branch hours as needed for Nausea and Vomiting (N/V). ondansetron 2021-08 Yes [id number] 4mg Take 1 U nivers 4 mg 0-28 tablet by ity of disintegrat 00:00: mouth [place] ing tablet 00 every 8 Medica l (eight) Branch hours as needed for Nausea and Vomiting (N/V). sulfamethox 2021-08 Yes Univer s azole-trime 0-23 ity of thoprim 00:00: [place] 800-160 mg 00 Medical per tablet Branch sulfamethox 2021-08 Yes Univer s azole-trime 0-23 ity of thoprim 00:00: [place] 800-160 mg 00 Medical per tablet Branch sulfamethox 2021-08- No Unive rs azole-trime 0-23 10-28 ity of thoprim 00:00: 00:00 [place] 800-160 mg 00 :00 Medical per tablet Branch DULOXETINE 2021-08 Yes [id number] TAKE ONE Univers 20 mg 0-18 CAPSULE BY ity of capsule 00:00: MOUTH [place] 00 EVERY Medical MORNING Branch DULOXETINE 2021-08 Yes [id number] TAKE ONE Univers 20 mg 0-18 CAPSULE BY ity of capsule 00:00: MOUTH [place] 00 EVERY Medical MORNING Branch DULOXETINE 2021-08 Yes [id number] TAKE ONE Univers 20 mg 0-18 CAPSULE BY ity of capsule 00:00: MOUTH [place] 00 EVERY Medical MORNING Branch DULOXETINE 2021-08 Yes [id number] TAKE ONE Univers 20 mg 0-18 CAPSULE BY ity of capsule 00:00: MOUTH [place] 00 EVERY Medical MORNING Branch DULOXETINE 2021-08 Yes [id number] TAKE ONE Univers 20 mg 0-18 CAPSULE BY ity of capsule 00:00: MOUTH [place] 00 EVERY Medical MORNING Branch DULOXETINE 2021-08 Yes [id number] TAKE ONE Univers 20 mg 0-18 CAPSULE BY ity of capsule 00:00: MOUTH [place] 00 EVERY Medical MORNING Branch DULOXETINE 2021-08- No [id number] TAKE ONE Univers 20 mg 0-18 11-18 CAPSULE BY ity of capsule 00:00: 00:00 MOUTH [place] 00 :00 EVERY Medical MORNING Branch DULOXETINE 2021-08- No [id number] TAKE ONE Univers 20 mg 0-18 11-18 CAPSULE BY ity of capsule 00:00: 00:00 MOUTH [place] 00 :00 EVERY Medical MORNING Branch DULOXETINE 2021-08- No [id number] TAKE ONE Univers 20 mg 0-18 11-18 CAPSULE BY ity of capsule 00:00: 00:00 MOUTH [place] 00 :00 EVERY Medical MORNING Branch DULOXETINE 2021-08- No [id number] TAKE ONE Univers 20 mg 0-18 11-18 CAPSULE BY ity of capsule 00:00: 00:00 MOUTH [place] 00 :00 EVERY Medical MORNING Branch insulin 2021-08 Yes [id number] 60U inject 60 Univers aspart 0-09 9101 Units ity of RAPID 00:00: under the [place] (NOVOLOG 00 skin in Medical U-100 the Branch INSULIN morning. ASPART) 100 unit/mL injection insulin 2021-08 Yes [id number] 60U inject 60 Univers aspart 0-09 9101 Units ity of RAPID 00:00: under the [place] (NOVOLOG 00 skin in Medical U-100 the Branch INSULIN morning. ASPART) 100 unit/mL injection insulin 2021-08 Yes [id number] 60U inject 60 Univers aspart 0-09 9101 Units ity of RAPID 00:00: under the [place] (NOVOLOG 00 skin in Medical U-100 the Branch INSULIN morning. ASPART) 100 unit/mL injection insulin 2021-08 Yes [id number] 60U inject 60 Univers aspart 0-09 9101 Units ity of RAPID 00:00: under the [place] (NOVOLOG 00 skin in Medical U-100 the Branch INSULIN morning. ASPART) 100 unit/mL injection insulin 2021-08 Yes [id number] 60U inject 60 Univers aspart 0-09 9101 Units ity of RAPID 00:00: under the [place] (NOVOLOG 00 skin in Medical U-100 the Branch INSULIN morning. ASPART) 100 unit/mL injection insulin 2021-08 Yes [id number] 60U inject 60 Univers aspart 0-09 9101 Units ity of RAPID 00:00: under the [place] (NOVOLOG 00 skin in Medical U-100 the Branch INSULIN morning. ASPART) 100 unit/mL injection insulin 2021-08 Yes [id number] 60U inject 60 Univers aspart 0-09 9101 Units ity of RAPID 00:00: under the [place] (NOVOLOG 00 skin in Medical U-100 the Branch INSULIN morning. ASPART) 100 unit/mL injection insulin 2021-08 Yes [id number] 60U inject 60 Univers aspart 0-09 9101 Units ity of RAPID 00:00: under the [place] (NOVOLOG 00 skin in Medical U-100 the Branch INSULIN morning. ASPART) 100 unit/mL injection insulin 2021-08 Yes [id number] 60U inject 60 Univers aspart 0-09 9101 Units ity of RAPID 00:00: under the [place] (NOVOLOG 00 skin in Medical U-100 the Branch INSULIN morning. ASPART) 100 unit/mL injection insulin 2021-08 Yes [id number] 60U inject 60 Univers aspart 0-09 9101 Units ity of RAPID 00:00: under the [place] (NOVOLOG 00 skin in Medical U-100 the Branch INSULIN morning. ASPART) 100 unit/mL injection insulin 2021-08 Yes [id number] 60U inject 60 Univers aspart 0-09 9101 Units ity of RAPID 00:00: under the [place] (NOVOLOG 00 skin in Medical U-100 the Branch INSULIN morning. ASPART) 100 unit/mL injection insulin 2021-08 Yes [id number] 60U inject 60 Univers aspart 0-09 9101 Units ity of RAPID 00:00: under the [place] (NOVOLOG 00 skin in Medical U-100 the Branch INSULIN morning. ASPART) 100 unit/mL injection insulin 2021-08 Yes [id number] 60U inject 60 Univers aspart 0-09 9101 Units ity of RAPID 00:00: under the [place] (NOVOLOG 00 skin in Medical U-100 the Branch INSULIN morning. ASPART) 100 unit/mL injection insulin 2021-08 Yes [id number] 60U inject 60 Univers aspart 0-09 9101 Units ity of RAPID 00:00: under the [place] (NOVOLOG 00 skin in Medical U-100 the Branch INSULIN morning. ASPART) 100 unit/mL injection insulin 2021-08 Yes [id number] 60U inject 60 Univers aspart 0-09 9101 Units ity of RAPID 00:00: under the [place] (NOVOLOG 00 skin in Medical U-100 the Branch INSULIN morning. ASPART) 100 unit/mL injection insulin 2021-08 Yes [id number] 60U inject 60 Univers aspart 0-09 9101 Units ity of RAPID 00:00: under the [place] (NOVOLOG 00 skin in Medical U-100 the Branch INSULIN morning. ASPART) 100 unit/mL injection insulin 2021-08 Yes [id number] 60U inject 60 Univers aspart 0-09 9101 Units ity of RAPID 00:00: under the [place] (NOVOLOG 00 skin in Medical U-100 the Branch INSULIN morning. ASPART) 100 unit/mL injection DULOXETINE 0 Yes [id number] TAKE ONE Univers 20 mg 9-12 CAPSULE BY ity of capsule 00:00: MOUTH [place] 00 EVERY Medical MORNING Branch DULOXETINE 2021-0 Yes [id number] TAKE ONE Univers 20 mg 9-12 CAPSULE BY ity of capsule 00:00: MOUTH [place] 00 EVERY Medical MORNING Branch DULOXETINE 0 Yes [id number] TAKE ONE Univers 20 mg 9-12 CAPSULE BY ity of capsule 00:00: MOUTH 00 EVERY Medical MORNING Branch insulin 0 Yes 15 units 3 Univ ers aspart [...] 100 Insulin unit/mL pump injection insulin 0 Yes 15 units 3 Univ ers aspart 9-08 x a day ity of RAPID 00:00: before [place] (NOVOLOG 00 meals . Medical U-100 For use Branch INSULIN with ASPART) 100 Insulin unit/mL pump injection insulin 2021- No 15 units 3 Uni vers aspart 04-10 10-09 x a day ity of RAPID 00:00: 00:00 before [place] (NOVOLOG 00 :00 meals . Medical U-100 For use Branch INSULIN with ASPART) 100 Insulin unit/mL pump injection gabapentin 2021-0 Yes [id number] Take 1 cap Univers 100 mg 8-16 by mouth ity of capsule 00:00: at [place] 00 bedtime, Medical titrate Branch medication up to 3 caps by mouth three times a day gabapentin 2021-0 Yes [id number] Take 1 cap Univers 100 mg 8-16 by mouth ity of capsule 00:00: at [place] 00 bedtime, Medical titrate Branch medication up to 3 caps by mouth three times a day gabapentin 2022-0 Yes [id number] Take 1 cap [facility] 100 mg 8-16 by mouth ity of capsule 00:00: at [place] [address] bedtime, Medical titrate Branch medication up to 3 caps by mouth three times a day gabapentin 2-0 Yes [id number] Take 1 cap [facility] 100 mg 8-16 by mouth ity of capsule 00:00: at [place] 00 bedtime, Medical titrate Branch medication up to 3 caps by mouth three times a day gabapentin 2-0 Yes [id number] Take 1 cap [facility] 100 mg 8-16 by mouth ity of capsule 00:00: at [place] 00 bedtime, Medical titrate Branch medication up to 3 caps by mouth three times a day gabapentin 2021-0 Yes [id number] Take 1 cap [facility] 100 mg 8-16 by mouth ity of capsule 00:00: at [place] [address] bedtime, Medical titrate Branch medication up to 3 caps by mouth three times a day gabapentin 2021-0 Yes [id number] Take 1 cap [facility] 100 mg 8-16 by mouth ity of capsule 00:00: at [place] [address] bedtime, Medical titrate Branch medication up to 3 caps by mouth three times a day gabapentin 2021-0 Yes [id number] Take 1 cap [facility] 100 mg 8-16 by mouth ity of capsule 00:00: at [place] 00 bedtime, Medical titrate Branch medication up to 3 caps by mouth three times a day gabapentin 2021-0 Yes [id number] Take 1 cap [facility] 100 mg 8-16 by mouth ity of capsule 00:00: at [place] [address] bedtime, Medical titrate Branch medication up to 3 caps by mouth three times a day gabapentin 2021-0 202- No [id number] Take 1 cap [facility] 100 mg 8-16 10-28 by mouth ity of capsule 00:00: 00:00 at [place] 00 :00 bedtime, Medical titrate Branch medication up to 3 caps by mouth three times a day DULoxetine 2021-0 2021- No [id number] 20mg Take 1 [facility] 20 mg 8-15 -12 capsule by ity of capsule 00:00: 00:00 mouth in [place] 00 :00 the Medical morning. Branch rizatriptan 2021-0 Yes [id number] 10mg Take 1 [facility] n[facility] (MAXALT) 10 7-29 tablet by [facility] [place] mg tablet 00:00: [place] 00 needed for Medical Migraine. Branch May repeat in 2 hours if needed, do not exceed daily recommende d dose rizatriptan 2022-0 Yes [id number] 10mg Take 1 [facility] (MAXALT) 10 7-29 tablet by ity of mg tablet 00:00: mouth [place] 00 needed for Medical Migraine. Branch May repeat in 2 hours if needed, do not exceed daily recommende d dose rizatriptan 2022-0 Yes [id number] 10mg Take 1 [facility] (MAXALT) 10 7-29 tablet by ity of mg tablet 00:00: mouth [place] 00 needed for Medical Migraine. Branch May repeat in 2 hours if needed, do not exceed daily recommende d dose rizatriptan 2022-0 Yes [id number] 10mg Take 1 [facility] (MAXALT) 10 7-29 tablet by ity of mg tablet 00:00: mouth [place] 00 needed for Medical Migraine. Branch May repeat in 2 hours if needed, do not exceed daily recommende d dose rizatriptan 2-0 Yes [id number] 10mg Take 1 [facility] (MAXALT) 10 7-29 tablet by ity of mg tablet 00:00: mouth [place] 00 needed for Medical Migraine. Branch May repeat in 2 hours if needed, do not exceed daily recommende d dose rizatriptan 2-0 Yes [id number] 10mg Take 1 [facility] (MAXALT) 10 7-29 tablet by ity of mg tablet 00:00: mouth [place] 00 needed for Medical Migraine. Branch May repeat in 2 hours if needed, do not exceed daily recommende d dose rizatriptan 2022-0 Yes [id number] 10mg Take 1 [facility] (MAXALT) 10 7-29 tablet by ity of mg tablet 00:00: mouth [place] 00 needed for Medical Migraine. Branch May repeat in 2 hours if needed, do not exceed daily recommende d dose rizatriptan 2022-0 Yes [id number] 10mg Take 1 [facility] (MAXALT) 10 7-29 tablet by ity of mg tablet 00:00: mouth as [place] 00 needed for Medical Migraine. Branch May repeat in 2 hours if needed, do not exceed daily recommende d dose rizatriptan 2022-0 Yes [id number] 10mg Take 1 [facility] (MAXALT) 10 7-29 tablet by ity of mg tablet 00:00: mouth as [place] 00 needed for Medical Migraine. Branch May repeat in 2 hours if needed, do not exceed daily recommende d dose rizatriptan 2022-0 Yes [id number] 10mg Take 1 [facility] (MAXALT) 10 7-29 tablet by ity of mg tablet 00:00: mouth as [place] 00 needed for Medical Migraine. Branch May repeat in 2 hours if needed, do not exceed daily recommende d dose rizatriptan 2022-0 Yes [id number] 10mg Take 1 [facility] (MAXALT) 10 7-29 tablet by ity of mg tablet 00:00: mouth as [place] 00 needed for Medical Migraine. Branch May repeat in 2 hours if needed, do not exceed daily recommende d dose rizatriptan 2-0 Yes [id number] 10mg Take 1 [facility] (MAXALT) 10 7-29 tablet by ity of mg tablet 00:00: mouth as [place] 00 needed for Medical Migraine. Branch May repeat in 2 hours if needed, do not exceed daily recommende d dose rizatriptan 2021-0 Yes [id number] 10mg Take 1 [facility] (MAXALT) 10 7-29 tablet by ity of mg tablet 00:00: mouth as [place] 00 needed for Medical Migraine. Branch May repeat in 2 hours if needed, do not exceed daily recommende d dose rizatriptan 2-0 Yes [id number] 10mg Take 1 [facility] (MAXALT) 10 7-29 tablet by ity of mg tablet 00:00: mouth as [place] 00 needed for Medical Migraine. Branch May repeat in 2 hours if needed, do not exceed daily recommende d dose rizatriptan 2022-0 Yes [id number] 10mg Take 1 [facility] (MAXALT) 10 7-29 tablet by ity of mg tablet 00:00: mouth as [place] 00 needed for Medical Migraine. Branch May repeat in 2 hours if needed, do not exceed daily recommende d dose rizatriptan 2022-0 Yes [id number] 10mg Take 1 [facility] (MAXALT) 10 7-29 tablet by ity of mg tablet 00:00: mouth as [place] 00 needed for Medical Migraine. Branch May repeat in 2 hours if needed, do not exceed daily recommende d dose rizatriptan 2022-0 Yes [id number] 10mg Take 1 [facility] (MAXALT) 10 7-29 tablet by ity of mg tablet 00:00: mouth as [place] 00 needed for Medical Migraine. Branch May repeat in 2 hours if needed, do not exceed daily recommende d dose rizatriptan 2022-0 Yes [id number] 10mg Take 1 [facility] (MAXALT) 10 7-29 tablet by ity of mg tablet 00:00: mouth as [place] 00 needed for Medical Migraine. Branch May repeat in 2 hours if needed, do not exceed daily recommende d dose rizatriptan 2-0 Yes [id number] 10mg Take 1 [facility] (MAXALT) 10 7-29 tablet by ity of mg tablet 00:00: mouth as [place] 00 needed for Medical Migraine. Branch May repeat in 2 hours if needed, do not exceed daily recommende d dose rizatriptan 2-0 Yes [id number] 10mg Take 1 [facility] (MAXALT) 10 7-29 tablet by ity of mg tablet 00:00: mouth as [place] 00 needed for Medical Migraine. Branch May repeat in 2 hours if needed, do not exceed daily recommende d dose rizatriptan 2-0 Yes [id number] 10mg Take 1 [facility] (MAXALT) 10 7-29 tablet by ity of mg tablet 00:00: mouth as [place] 00 needed for Medical Migraine. Branch May repeat in 2 hours if needed, do not exceed daily recommende d dose rizatriptan 2-0 Yes [id number] 10mg Take 1 [facility] (MAXALT) 10 7-29 tablet by ity of mg tablet 00:00: mouth as [place] 00 needed for Medical Migraine. Branch May repeat in 2 hours if needed, do not exceed daily recommende d dose meloxicam 2-0 Yes [id number] 7.5mg Take 1 [facility] 7.5 mg 7-08 tablet by ity of tablet 00:00: mouth once daily as Medical needed for Branch Pain (scale 7-10). meloxicam 2021-0 Yes [id number] 7.5mg Take 1 [facility] 7.5 mg 7-08 tablet by ity of tablet 00:00: mouth once [place] 00 daily as Medical needed for Branch Pain (scale 7-10). meloxicam 2021-0 Yes [id number] 7.5mg Take 1 [facility] 7.5 mg 7-08 tablet by ity of tablet 00:00: mouth once [place] 00 daily as Medical needed for Branch Pain (scale 7-10). meloxicam 0 Yes [id number] 7.5mg Take 1 [facility] 7.5 mg 7-08 tablet by ity of tablet 00:00: mouth once [place] 00 daily as Medical needed for Branch Pain (scale 7-10). meloxicam 0 Yes [id number] 7.5mg Take 1 [facility] 7.5 mg 7-08 tablet by ity of tablet 00:00: mouth once [place] 00 daily as Medical needed for Branch Pain (scale 7-10). meloxicam 0 Yes [id number] 7.5mg Take 1 [facility] 7.5 mg 7-08 tablet by ity of tablet 00:00: mouth once [place] 00 daily as Medical needed for Branch Pain (scale 7-10). meloxicam 0 Yes [id number] 7.5mg Take 1 [facility] 7.5 mg 7-08 tablet by ity of tablet 00:00: mouth once [place] 00 daily as Medical needed for Branch Pain (scale 7-10). meloxicam 2021-0 Yes [id number] 7.5mg Take 1 [facility] 7.5 mg 7-08 tablet by ity of tablet 00:00: mouth once [place] 00 daily as Medical needed for Branch Pain (scale 7-10). meloxicam 0 Yes [id number] 7.5mg Take 1 [facility] 7.5 mg 7-08 tablet by ity of tablet 00:00: mouth once [place] 00 daily as Medical needed for Branch Pain (scale 7-10). meloxicam 2021-0 2021- No [id number] 7.5mg Take 1 [facility] 7.5 mg 7-08 10-28 tablet by ity of tablet 00:00: 00:00 mouth [place] 00 :00 daily as Medical needed for Branch Pain (scale 7-10). flash 2022-0 Yes [id number] 1{box} 1 Box Un bradly glucose 7-06 9101 every 14 ity of sensor 00:00: (fourteen) [place] (FREESTYLE 00 days. Medical DC 2 Branch SENSOR) Kit flash 2022-0 Yes [id number] 1{box} 1 Box Un bradly glucose 7-06 9101 every 14 ity of sensor 00:00: (fourteen) [place] (FREESTYLE 00 days. Medical DC 2 Branch SENSOR) Kit flash 2022-0 Yes [id number] 1{box} 1 Box Un bradly glucose 7-06 9101 every 14 ity of sensor 00:00: (fourteen) [place] (FREESTYLE 00 days. Medical DC 2 Branch SENSOR) Kit flash 2022-0 Yes [id number] 1{box} 1 Box Un bradly glucose 7-06 9101 every 14 ity of sensor 00:00: (fourteen) [place] (FREESTYLE 00 days. Medical DC 2 Branch SENSOR) Kit flash 2022-0 Yes [id number] 1{box} 1 Box Un bradly glucose 7-06 9101 every 14 ity of sensor 00:00: (fourteen) [place] (FREESTYLE 00 days. Medical DC 2 Branch SENSOR) Kit flash 2022-0 Yes [id number] 1{box} 1 Box Un bradly glucose 7-06 9101 every 14 ity of sensor 00:00: (fourteen) [place] (FREESTYLE 00 days. Medical DC 2 Branch SENSOR) Kit flash 2022-0 Yes [id number] 1{box} 1 Box Un bradly glucose 7-06 9101 every 14 ity of sensor 00:00: (fourteen) [place] (FREESTYLE 00 days. Medical DC 2 Branch SENSOR) Kit flash 2022-0 Yes [id number] 1{box} 1 Box Un bradly glucose 7-06 9101 every 14 ity of sensor 00:00: (fourteen) [place] (FREESTYLE 00 days. Medical DC 2 Branch SENSOR) Kit flash 2022-0 Yes [id number] 1{box} 1 Box Un brad[facility] glucose 7-06 9101 every 14 ity of sensor 00:00: (fourteen) [place] (FREESTYLE 00 days. Medical DC 2 Branch SENSOR) Kit flash 2022-0 Yes [id number] 1{box} 1 Box Un bradly glucose 7-06 9101 every 14 ity of sensor 00:00: (fourteen) [place] (FREESTYLE 00 days. Medical DC 2 Branch SENSOR) Kit flash 2022-0 Yes [id number] 1{box} 1 Box Un brad[facility] glucose 7-06 9101 every 14 ity of sensor 00:00: (fourteen) [place] (FREESTYLE 00 days. Medical DC 2 Branch SENSOR) Kit flash 2022-0 Yes [id number] 1{box} 1 Box Un brad[facility] glucose 7-06 9101 every 14 ity of sensor 00:00: (fourteen) [place] (FREESTYLE 00 days. Medical DC 2 Branch SENSOR) Kit flash 2022-0 Yes [id number] 1{box} 1 Box Un brad[facility] glucose 7-06 9101 every 14 ity of sensor 00:00: (fourteen) [place] (FREESTYLE 00 days. Medical DC 2 Branch SENSOR) Kit flash 2022-0 Yes [id number] 1{box} 1 Box Un bradly glucose 7-06 9101 every 14 ity of sensor 00:00: (fourteen) [place] (FREESTYLE 00 days. Medical DC 2 Branch SENSOR) Kit flash 2022-0 Yes [id number] 1{box} 1 Box Un brad[facility] glucose 7-06 9101 every 14 ity of sensor 00:00: (fourteen) [place] (FREESTYLE 00 days. Medical DC 2 Branch SENSOR) Kit flash 2022-0 Yes [id number] 1{box} 1 Box Un brad[facility] glucose 7-06 9101 every 14 ity of sensor 00:00: (fourteen) [place] (FREESTYLE 00 days. Medical DC 2 Branch SENSOR) Kit flash 2022-0 Yes [id number] 1{box} 1 Box Un brad[facility] glucose 7-06 9101 every 14 ity of sensor 00:00: (fourteen) [place] (FREESTYLE 00 days. Medical DC 2 Branch SENSOR) Kit flash 2022-0 Yes [id number] 1{box} 1 Box Un brad[facility] glucose 7-06 9101 every 14 ity of sensor 00:00: (fourteen) [place] (FREESTYLE 00 days. Medical DC 2 Branch SENSOR) Kit flash 2022-0 Yes [id number] 1{box} 1 Box Un brad[facility] glucose 7-06 9101 every 14 ity of sensor 00:00: (fourteen) [place] (FREESTYLE 00 days. Medical DC 2 Branch SENSOR) Kit flash 2021-0 Yes [id number] 1{box} 1 Box Un bradly glucose 7-06 9101 every 14 ity of sensor 00:00: (fourteen) [place] (FREESTYLE 00 days. Medical DC 2 Branch SENSOR) Kit flash 2021-0 Yes [id number] 1{box} 1 Box Un brad[facility] glucose 7-06 9101 every 14 ity of sensor 00:00: (fourteen) [place] (FREESTYLE 00 days. Medical DC 2 Branch SENSOR) Kit flash 2021-0 Yes [id number] 1{box} 1 Box Un brad[facility] glucose 7-06 9101 every 14 ity of sensor 00:00: (fourteen) [place] (FREESTYLE 00 days. Medical DC 2 Branch SENSOR) Kit insulin 2021- No [id number] 15U inject 15 [facility] aspart 02-05 09-08 9101 Units ity of U-100 00:00: 00:00 under the [place] (NOVOLOG 00 :00 skin 3 Medical FLEXPEN (three) Branch U-100 times INSULIN) daily 100 unit/mL before (3 mL) meals. injection flash 2021-0 Yes [id number] 1{box} 1 Box Unive rs glucose 4-25 daily. ity of scanning 00:00: [place] reader 00 Medical (FREESTYLE Branch DC 2 READER) Misc insulin 2022-0 Yes [id number] 30U inject 30 U nivers degludec 4-25 Units ity of (TRESIBA 00:00: [place] FLEXTOUCH 00 skin at Medical U-100) 100 bedtime. Branc h unit/mL (3 mL) InPn flash 2021-0 Yes [id number] 1{box} 1 Box Unive rs glucose 4-25 daily. ity of scanning 00:00: [place] reader 00 Medical (FREESTYLE Branch DC 2 READER) Misc insulin 2022-0 Yes [id number] 30U inject 30 U nivers degludec 4-25 Units ity of (TRESIBA 00:00: [place] FLEXTOUCH 00 skin at Medical U-100) 100 bedtime. Branc h unit/mL (3 mL) InPn flash 202-0 Yes [id number] 1{box} 1 Box Unive rs glucose 4-25 daily. ity of scanning 00:00: [place] reader 00 Medical (FREESTYLE Branch DC 2 READER) Misc insulin 2021-0 Yes [id number] 30U inject 30 U nivers degludec 4-25 Units ity of (TRESIBA 00:00: [place] FLEXTOUCH 00 skin at Medical U-100) 100 bedtime. Branc h unit/mL (3 mL) InPn flash 202-0 Yes [id number] 1{box} 1 Box Unive rs glucose 4-25 daily. ity of scanning 00:00: [place] reader 00 Medical (FREESTYLE Branch DC 2 READER) Misc insulin 2021-0 Yes [id number] 30U inject 30 U nivers degludec 4-25 Units ity of (TRESIBA 00:00: under [place] FLEXTOUCH 00 skin at Medical U-100) 100 bedtime. Branc h unit/mL (3 mL) InPn flash 2021-0 Yes [id number] 1{box} 1 Box Unive rs glucose 4-25 daily. ity of scanning 00:00: [place] reader 00 Medical (FREESTYLE Branch DC 2 READER) Misc insulin 2021-0 Yes [id number] 30U inject 30 U nivers degludec 4-25 Units ity of (TRESIBA 00:00: under the [place] FLEXTOUCH 00 skin at Medical U-100) 100 bedtime. Branc h unit/mL (3 mL) InPn flash 2021-0 Yes [id number] 1{box} 1 Box Unive rs glucose 4-25 daily. ity of scanning 00:00: [place] reader 00 Medical (FREESTYLE Branch DC 2 READER) Misc insulin 2021-0 Yes [id number] 30U inject 30 U nivers degludec 4-25 Units ity of (TRESIBA 00:00: under the [place] FLEXTOUCH 00 skin at Medical U-100) 100 bedtime. Branc h unit/mL (3 mL) InPn flash 2022-0 Yes [id number] 1{box} 1 Box Unive rs glucose 4-25 daily. ity of scanning 00:00: [place] reader 00 Medical (FREESTYLE Branch DC 2 READER) Misc insulin 2022-0 Yes [id number] 30U inject 30 U nivers degludec 4-25 Units ity of (TRESIBA 00:00: under the [place] FLEXTOUCH 00 skin at Medical U-100) 100 bedtime. Branc h unit/mL (3 mL) InPn flash 2021-0 Yes [id number] 1{box} 1 Box Unive rs glucose 4-25 daily. ity of scanning 00:00: [place] reader 00 Medical (FREESTYLE Branch DC 2 READER) Misc insulin 0 Yes [id number] 30U inject 30 U nivers degludec 4-25 Units ity of (TRESIBA 00:00: under the [place] FLEXTOUCH 00 skin at Medical U-100) 100 bedtime. Branc h unit/mL (3 mL) InPn flash 2021-0 Yes [id number] 1{box} 1 Box Unive rs glucose 4-25 daily. ity of scanning 00:00: [place] reader 00 Medical (FREESTYLE Branch DC 2 READER) Misc insulin 2021-0 Yes [id number] 30U inject 30 U nivers degludec 4-25 Units ity of (TRESIBA 00:00: under the [place] FLEXTOUCH 00 skin at Medical U-100) 100 bedtime. Branc h unit/mL (3 mL) InPn flash 2021-0 Yes [id number] 1{box} 1 Box Unive rs glucose 4-25 daily. ity of scanning 00:00: [place] reader 00 Medical (FREESTYLE Branch DC 2 READER) Misc insulin 2021-0 Yes [id number] 30U inject 30 U nivers degludec 4-25 Units ity of (TRESIBA 00:00: under the [place] FLEXTOUCH 00 skin at Medical U-100) 100 bedtime. Branc h unit/mL (3 mL) InPn flash 2021-0 Yes [id number] 1{box} 1 Box Unive rs glucose 4-25 daily. ity of scanning 00:00: [place] reader 00 Medical (FREESTYLE Branch DC 2 READER) Misc insulin 2021-0 Yes [id number] 30U inject 30 U nivers degludec 4-25 Units ity of (TRESIBA 00:00: under the [place] FLEXTOUCH 00 skin at Medical U-100) 100 bedtime. Branc h unit/mL (3 mL) InPn flash 202-0 Yes [id number] 1{box} 1 Box Unive rs glucose 4-25 daily. ity of scanning 00:00: [place] reader 00 Medical (FREESTYLE Branch DC 2 READER) Misc insulin 2021-0 Yes [id number] 30U inject 30 U nivers degludec 4-25 Units ity of (TRESIBA 00:00: under [place] FLEXTOUCH 00 skin at Medical U-100) 100 bedtime. Branc h unit/mL (3 mL) InPn flash 202-0 Yes [id number] 1{box} 1 Box Unive rs glucose 4-25 daily. ity of scanning 00:00: [place] reader 00 Medical (FREESTYLE Branch DC 2 READER) Misc insulin 2021-0 Yes [id number] 30U inject 30 U nivers degludec 4-25 Units ity of (TRESIBA 00:00: under the [place] FLEXTOUCH 00 skin at Medical U-100) 100 bedtime. Branc h unit/mL (3 mL) InPn flash 2021-0 Yes [id number] 1{box} 1 Box Unive rs glucose 4-25 daily. ity of scanning 00:00: [place] reader 00 Medical (FREESTYLE Branch DC 2 READER) Misc insulin 2021-0 Yes [id number] 30U inject 30 U nivers degludec 4-25 Units ity of (TRESIBA 00:00: under the [place] FLEXTOUCH 00 skin at Medical U-100) 100 bedtime. Branc h unit/mL (3 mL) InPn flash 2021-0 Yes [id number] 1{box} 1 Box Unive rs glucose 4-25 daily. ity of scanning 00:00: [place] reader 00 Medical (FREESTYLE Branch DC 2 READER) Misc insulin 2-0 Yes [id number] 30U inject 30 U nivers degludec 4-25 Units ity of (TRESIBA 00:00: under [place] FLEXTOUCH 00 skin at Medical U-100) 100 bedtime. Branc h unit/mL (3 mL) InPn flash 202-0 Yes [id number] 1{box} 1 Box Unive rs glucose 4-25 daily. ity of scanning 00:00: [place] reader 00 Medical (FREESTYLE Branch DC 2 READER) Misc insulin 202-0 Yes [id number] 30U inject 30 U nivers degludec 4-25 Units ity of (TRESIBA 00:00: under the [place] FLEXTOUCH 00 skin at Medical U-100) 100 bedtime. Branc h unit/mL (3 mL) InPn flash 2022-0 Yes [id number] 1{box} 1 Box Unive rs glucose 4-25 daily. ity of scanning 00:00: [place] reader 00 Medical (FREESTYLE Branch DC 2 READER) Misc insulin 2021-0 Yes [id number] 30U inject 30 U nivers degludec 4-25 Units ity of (TRESIBA 00:00: under the [place] FLEXTOUCH 00 skin at Medical U-100) 100 bedtime. Branc h unit/mL (3 mL) InPn flash 2021-0 Yes [id number] 1{box} 1 Box Unive rs glucose 4-25 daily. ity of scanning 00:00: [place] reader 00 Medical (FREESTYLE Branch DC 2 READER) Misc insulin 2021-0 Yes [id number] 30U inject 30 U nivers degludec 4-25 Units ity of (TRESIBA 00:00: under the [place] FLEXTOUCH 00 skin at Medical U-100) 100 bedtime. Branc h unit/mL (3 mL) InPn flash 202-0 Yes [id number] 1{box} 1 Box Unive rs glucose 4-25 daily. ity of scanning 00:00: [place] reader 00 Medical (FREESTYLE Branch DC 2 READER) Misc insulin 2021-0 Yes [id number] 30U inject 30 U nivers degludec 4-25 Units ity of (TRESIBA 00:00: under the [place] FLEXTOUCH 00 skin at Medical U-100) 100 bedtime. Branc h unit/mL (3 mL) InPn flash 2022-0 Yes [id number] 1{box} 1 Box Unive rs glucose 4-25 daily. ity of scanning 00:00: [place] reader 00 Medical (FREESTYLE Branch DC 2 READER) Misc insulin 2021-0 Yes [id number] 30U inject 30 U nivers degludec 4-25 Units ity of (TRESIBA 00:00: under the [place] FLEXTOUCH 00 skin at Medical U-100) 100 bedtime. Branc h unit/mL (3 mL) InPn flash Yes [id number] 1{box} 1 Box Unive rs glucose 4-25 daily. ity of scanning 00:00: [place] reader 00 Medical (FREESTYLE Branch DC 2 READER) Misc insulin Yes [id number] 30U inject 30 U nivers degludec 4-25 Units ity of (TRESIBA 00:00: under the [place] FLEXTOUCH 00 skin at Medical U-100) 100 bedtime. Branc h unit/mL (3 mL) InPn flash Yes [id number] 1{box} 1 Box Unive rs glucose 4-25 daily. ity of scanning 00:00: [place] reader 00 Medical (FREESTYLE Branch DC 2 READER) Misc insulin Yes [id number] 30U inject 30 U nivers degludec 4-25 Units ity of (TRESIBA 00:00: [place] FLEXTOUCH 00 skin at Medical U-100) 100 bedtime. Branc h unit/mL (3 mL) InPn pen needle, 2020-08 Yes [id number] 200{eac 200 Each 6 [facility] diabetic 31 0-05 h} (six) ity of gauge x 00:00: times [place] 1/6" Ndle 00 daily. Medical Branch pen needle, 2020-08 Yes [id number] 200{eac 200 Each 6 [facility] diabetic 31 0-05 h} (six) ity of gauge x 00:00: times [place] 1/6" Ndle 00 daily. Medical Branch pen needle, 2020-08 Yes [id number] 200{eac 200 Each 6 [facility] diabetic 31 0-05 h} (six) ity of gauge x 00:00: times [place] 1/6" Ndle 00 daily. Medical Branch pen needle, 2020-08 Yes [id number] 200{eac 200 Each 6 [facility] diabetic 31 0-05 h} (six) ity of gauge x 00:00: times [place] 1/6" Ndle 00 daily. Medical Branch pen needle, 2020-08 Yes [id number] 200{eac 200 Each 6 [facility] diabetic 31 0-05 h} (six) ity of gauge x 00:00: times [place] 08/08" Ndle 00 daily. Medical Branch pen needle, 2020-08 Yes [id number] 200{eac 200 Each 6 [facility] diabetic 31 0-05 h} (six) ity of gauge x 00:00: times [place] 08/08" Ndle 00 daily. Medical Branch pen needle, 2020-08 Yes [id number] 200{eac 200 Each 6 [facility] diabetic 31 0-05 h} (six) ity of gauge x 00:00: times [place] 08/08" Ndle 00 daily. Medical Branch pen needle, 2020-08 Yes [id number] 200{eac 200 Each 6 [facility] diabetic 31 0-05 h} (six) ity of gauge x 00:00: times [place] 08/08" Ndle 00 daily. Medical Branch pen needle, 2020-08 Yes [id number] 200{eac 200 Each 6 [facility] diabetic 31 0-05 h} (six) ity of gauge x 00:00: times [place] 08/08" Ndle 00 daily. Medical Branch pen needle, 2020-08 Yes [id number] 200{eac 200 Each 6 [facility] diabetic 31 0-05 h} (six) ity of gauge x 00:00: times [place] 08/08" Ndle 00 daily. Medical Branch pen needle, 2020-08 Yes [id number] 200{eac 200 Each 6 [facility] diabetic 31 0-05 h} (six) ity of gauge x 00:00: times [place] 08/08" Ndle 00 daily. Medical Branch pen needle, 2020-08 Yes [id number] 200{eac 200 Each 6 [facility] diabetic 31 0-05 h} (six) ity of gauge x 00:00: times [place] 08/08" Ndle 00 daily. Medical Branch pen needle, 2020-08 Yes [id number] 200{eac 200 Each 6 [facility] diabetic 31 0-05 h} (six) ity of gauge x 00:00: times [place] 08/08" Ndle 00 daily. Medical Branch pen needle, 2020-08 Yes [id number] 200{eac 200 Each 6 [facility] diabetic 31 0-05 h} (six) ity of gauge x 00:00: times [place] 08/08" Ndle 00 daily. Medical Branch pen needle, 2020-08 Yes [id number] 200{eac 200 Each 6 [facility] diabetic 31 0-05 h} (six) ity of gauge x 00:00: times [place] 08/08" Ndle 00 daily. Medical Branch pen needle, 2020-08 Yes [id number] 200{eac 200 Each 6 [facility] diabetic 31 0-05 h} (six) ity of gauge x 00:00: times [place] 08/08" Ndle 00 daily. Medical Branch pen needle, 2020-08 Yes [id number] 200{eac 200 Each 6 [facility] diabetic 31 0-05 h} (six) ity of gauge x 00:00: times [place] 08/08" Ndle 00 daily. Medical Branch pen needle, 2020-08 Yes [id number] 200{eac 200 Each 6 [facility] diabetic 31 0-05 h} (six) ity of gauge x 00:00: times [place] 08/08" Ndle 00 daily. Medical Branch pen needle, 2020-08 Yes [id number] 200{eac 200 Each 6 [facility] diabetic 31 0-05 h} (six) ity of gauge x 00:00: times 08/08" Ndle 00 daily. Medical Branch pen needle, 2020-08 Yes [id number] 200{eac 200 Each 6 [facility] diabetic 31 0-05 h} (six) ity of gauge x 00:00: times [place] 08/08" Ndle 00 daily. Medical Branch pen needle, 2020-08 Yes [id number] 200{eac 200 Each 6 [facility] diabetic 31 0-05 h} (six) ity of gauge x 00:00: times 08/08" Ndle 00 daily. Medical Branch pen needle, 2020-08 Yes [id number] 200{eac 200 Each 6 [facility] diabetic 31 0-05 h} (six) ity of gauge x 00:00: times [place] 08/08" Ndle 00 daily. Medical Branch Lancets 2019-08 Yes Patient to [facility] ers Misc 0-06 check ity of 00:00: blood [place] 00 sugar four Medical times Branch daily Lancets 2019-08 Yes Patient to [facility] ers Misc 0-06 check ity of 00:00: blood [place] 00 sugar four Medical times Branch daily Lancets 2019-08 Yes Patient to [facility] ers Misc 0-06 check ity of 00:00: blood [place] 00 sugar four Medical times Branch daily Lancets 2019-08 Yes Patient to [facility] ers Misc 0-06 check ity of 00:00: blood [place] 00 sugar four Medical times Branch daily Lancets 2020- Yes [facility] to [facility] Area ers Misc 0-06 check ity of 00:00: blood [place] 00 sugar four Medical times Branch daily Lancets 2020- Yes Patient to [facility] ers Misc 0-06 check ity of 00:00: blood [place] 00 sugar four Medical times Branch daily Lancets 2020- Yes Patient to [facility] ers Misc 0-06 check ity of 00:00: blood [place] 00 sugar four Medical times Branch daily Lancets 2020- Yes Patient to [facility] ers Misc 0-06 check ity of 00:00: blood [place] 00 sugar four Medical times Branch daily Lancets 2020- Yes Patient to [facility] Misc 0-06 check ity of 00:00: blood [place] 00 sugar four Medical times Branch daily Lancets 2020- Yes Patient to [facility] Misc 0-06 check ity of 00:00: blood [place] 00 sugar four Medical times Branch daily Lancets 2020- Yes Patient to [facility] Misc 0-06 check ity of 00:00: blood [place] 00 sugar four Medical times Branch daily Lancets 2020- Yes Patient to [facility] Misc 0-06 check ity of 00:00: blood [place] 00 sugar four Medical times Branch daily Lancets 2020- Yes Patient to [facility] Misc 0-06 check ity of 00:00: blood [place] 00 sugar four Medical times Branch daily Lancets 2020- Yes Patient to [facility] Misc 0-06 check ity of 00:00: blood [place] 00 sugar four Medical times Branch daily Lancets 2020- Yes Patient to [facility] ers Misc 0-06 check ity of 00:00: blood [place] 00 sugar four Medical times Branch daily Lancets 2020- Yes Patient to [facility] Misc 0-06 check ity of 00:00: blood [place] 00 sugar four Medical times Branch daily Lancets 2020- Yes Patient to [facility] ers Misc 0-06 check ity of 00:00: blood [place] 00 sugar four Medical times Branch daily Lancets 2020- Yes Patient to [facility] Misc 0-06 check ity of 00:00: blood [place] 00 sugar four Medical times Branch daily Lancets 2020- Yes Patient to [facility] Misc 0-06 check ity of 00:00: blood [place] 00 sugar four Medical times Branch daily Lancets 2020- Yes Patient to [facility] Misc 0-06 check ity of 00:00: blood [place] 00 sugar four Medical times Branch daily Lancets 2019-08 Yes Patient to [facility] Misc 0-06 check ity of 00:00: blood [place] 00 sugar four Medical times Branch daily Lancets 2019-08 Yes Patient to [facility] Misc 0-06 check ity of 00:00: blood [...] [facility] MG tablet 12:40: depression daily. [address] traZODone 2016-08 Yes insomnia 50mg QD Take [...] [facility] MG tablet 12:40: depression daily. [address] traZODone 2016-08 Yes insomnia 50mg QD Take [...] InPn insulin Yes If [facility] UN=[id number] [facility] JN=[id number] unit/mL , give injection 2unitsIf TP=766-578 , give 4unitsIf UL=709-185 , give 6unitsIf JR=892-546 , give 8units. insulin Yes If [facility] regular 04-09 YV=[id number] [facility] (HUMULIN [facility]:00: , give Medical R,NOVOLIN 00 1unitIf Center R) 100 GK=738-688 unit/mL , give injection 2unitsIf DN=941-916 , give 4unitsIf WB=948-910 , give 6unitsIf VK=937-974 , give 8units. insulin Yes If [facility] regular 04-09 KF=[id number] [facility] (HUMULIN 00:00: , give Medical R,NOVOLIN 00 unitIf [facility] R) 100 YV=019-384 unit/mL , give injection 2unitsIf FQ=053-617 , give 4unitsIf TS=455-575 , give 6unitsIf KL=744-418 , give 8units. Immunizations Ordered Immunization Filled Immunization Date Status Commen ts Source Name Name Influenza Virus 2021-11-01 Completed Universit y [facility] Vaccine Quad IM, 00:00:00 [facility] dical Preserv and ABX Free Bran ch 6 MO-64 YRS Influenza Virus 2021-11-01 Completed Universit y of Vaccine 00:00:00 [facility] Influenza Virus 2021-11-01 Completed Universit y of Vaccine Quad IM, 00:00:00 [facility] dical Preserv and ABX Free Bran ch 6 MO-64 YRS Influenza Virus 2021-11-01 Completed Universit y of Vaccine 00:00:00 [facility] Influenza Virus 2021-11-01 Completed Universit y of Vaccine Quad IM, 00:00:00 [place] [facility] dical Preserv and ABX Free Bran ch 6 MO-64 YRS Influenza Virus 2021-11-01 Completed Universit y of Vaccine 00:00:00 [facility] Influenza Virus 2021-11-01 Completed Universit y of Vaccine Quad IM, 00:00:00 [place] [facility] dical Preserv and ABX Free Bran ch 6 MO-64 YRS Influenza Virus 2021-11-01 Completed Universit y of Vaccine 00:00:00 [facility] Influenza Virus 2021-11-01 Completed Universit y of Vaccine Quad IM, 00:00:00 [facility] dical Preserv and ABX Free Bran ch 6 MO-64 YRS Influenza Virus 2021-11-01 Completed Universit y of Vaccine 00:00:00 [facility] Influenza Virus 2021-11-01 Completed Universit y of Vaccine Quad IM, 00:00:00 [facility] dical Preserv and ABX Free Bran ch 6 MO-64 YRS Influenza Virus 2021-11-01 Completed Universit y of Vaccine 00:00:00 [facility] Influenza Virus 2021-11-01 Completed Universit y of Vaccine Quad IM, 00:00:00 [facility] dical Preserv and ABX Free Bran ch 6 MO-64 YRS Influenza Virus 2021-11-01 Completed Universit y of Vaccine 00:00:00 [facility] Influenza Virus 2021-11-01 Completed Universit y of Vaccine Quad IM, 00:00:00 [facility] dical Preserv and ABX Free Bran ch 6 MO-64 YRS Influenza Virus 2021-11-01 Completed Universit y of Vaccine 00:00:00 [facility] Influenza Virus 2021-11-01 Completed Universit y of Vaccine Quad IM, 00:00:00 [place] [facility] dical Preserv and ABX Free Bran ch 6 MO-64 YRS Influenza Virus 2021-11-01 Completed Universit y of Vaccine 00:00:00 [facility] Influenza Virus 2021-11-01 Completed Universit y of Vaccine Quad IM, 00:00:00 [place] [facility] dical Preserv and ABX Free Bran ch 6 MO-64 YRS Influenza Virus 2021-11-01 Completed Universit y of Vaccine 00:00:00 [facility] Influenza Virus 2021-11-01 Completed Universit y of Vaccine Quad IM, 00:00:00 [place] dical Preserv and ABX Free Bran ch 6 MO-64 YRS Influenza Virus 2021-11-01 Completed Universit y of Vaccine 00:00:00 [facility] Influenza Virus 2021-11-01 Completed Universit y of Vaccine Quad IM, 00:00:00 [place] [facility] dical Preserv and ABX Free Bran ch 6 MO-64 YRS Influenza Virus 2021-11-01 Completed Universit y of Vaccine 00:00:00 [facility] Influenza Virus 2021-11-01 Completed Universit y of Vaccine Quad IM, 00:00:00 [facility] dical Preserv and ABX Free Bran ch 6 MO-64 YRS Influenza Virus 2021-11-01 Completed Universit y of Vaccine 00:00:00 [facility] Influenza Virus 2021-11-01 Completed Universit y of Vaccine Quad IM, 00:00:00 [facility] dical Preserv and ABX Free Bran ch 6 MO-64 YRS Influenza Virus 2021-11-01 Completed Universit y of Vaccine 00:00:00 [facility] Influenza Virus 2021-11-01 Completed Universit y of Vaccine Quad IM, 00:00:00 [facility] dical Preserv and ABX Free Bran ch 6 MO-64 YRS Influenza Virus 2021-11-01 Completed Universit y of Vaccine 00:00:00 [facility] Influenza Virus 2021-11-01 Completed Universit y of Vaccine Quad IM, 00:00:00 [facility] dical Preserv and ABX Free Bran ch 6 MO-64 YRS Influenza Virus 2021-11-01 Completed Universit y of Vaccine 00:00:00 [facility] Influenza Virus 2021-11-01 Completed Universit y of Vaccine Quad IM, 00:00:00 [facility] dical Preserv and ABX Free Bran ch 6 MO-64 YRS Influenza Virus 2021-11-01 Completed Universit y of Vaccine 00:00:00 [facility] Influenza Virus 2021-11-01 Completed Universit y of Vaccine Quad IM, 00:00:00 [facility] dical Preserv and ABX Free Bran ch 6 MO-64 YRS Influenza Virus 2021-11-01 Completed Universit y of Vaccine 00:00:00 [facility] Influenza Virus 2021-11-01 Completed Universit y of Vaccine Quad IM, 00:00:00 [place] [facility] dical Preserv and ABX Free Bran ch 6 MO-64 YRS Influenza Virus 2021-11-01 Completed Universit y of Vaccine 00:00:00 [facility] Influenza Virus 2021-11-01 Completed Universit y of Vaccine Quad IM, 00:00:00 [place] [facility] dical Preserv and ABX Free Bran ch 6 MO-64 YRS Influenza Virus 2021-11-01 Completed Universit y of Vaccine 00:00:00 [facility] Influenza Virus 2021-11-01 Completed Universit y of Vaccine Quad IM, 00:00:00 [place] [facility] dical Preserv and ABX Free Bran ch 6 MO-64 YRS Influenza Virus 2021-11-01 Completed Universit y of Vaccine 00:00:00 [facility] Influenza Virus 2021-11-01 Completed Universit y of Vaccine Quad IM, 00:00:00 [place] [facility] dical Preserv and ABX Free Bran ch 6 MO-64 YRS Influenza Virus 2021-11-01 Completed Universit y of Vaccine 00:00:00 [facility] SARS-COV-2 COVID-19 2020-11-10 Completed Unive rsity of PFIZER VACCINE 00:00:00 [facility] SARS-COV-2 COVID-19 2020-11-10 Completed Unive rsity of PFIZER VACCINE 00:00:00 [facility] SARS-COV-2 COVID-19 2020-11-10 Completed Unive rsity of PFIZER VACCINE 00:00:00 [facility] SARS-COV-2 COVID-19 2020-11-10 Completed Unive rsity of PFIZER VACCINE 00:00:00 [facility] SARS-COV-2 COVID-19 2020-11-10 Completed Unive rsity of PFIZER VACCINE 00:00:00 [facility] SARS-COV-2 COVID-19 2020-11-10 Completed Unive rsity of PFIZER VACCINE 00:00:00 [facility] SARS-COV-2 COVID-19 2020-11-10 Completed Unive rsity of PFIZER VACCINE 00:00:00 [facility] SARS-COV-2 COVID-19 2020-11-10 Completed Unive rsity of PFIZER VACCINE 00:00:00 [facility] SARS-COV-2 COVID-19 2020-11-10 Completed Unive rsity of PFIZER VACCINE 00:00:00 [facility] [place] [facility] SARS-COV-2 COVID-19 2020-11-10 Completed Unive rsity of PFIZER VACCINE 00:00:00 [facility] [place] [facility] SARS-COV-2 COVID-19 2020-11-10 Completed Unive rsity of PFIZER VACCINE 00:00:00 [facility] [place] [facility] SARS-COV-2 COVID-19 2020-11-10 Completed Unive rsity of PFIZER VACCINE 00:00:00 [facility] [place] [facility] SARS-COV-2 COVID-19 2020-11-10 Completed Unive rsity of PFIZER VACCINE 00:00:00 [facility] [place] [facility] SARS-COV-2 COVID-19 2020-11-10 Completed Unive rsity of PFIZER VACCINE 00:00:00 [facility] [place] [facility] SARS-COV-2 COVID-19 2020-11-10 Completed Unive rsity of PFIZER VACCINE 00:00:00 [facility] [place] [facility] SARS-COV-2 COVID-19 2020-11-10 Completed Unive rsity of PFIZER VACCINE 00:00:00 [facility] [place] [facility] SARS-COV-2 COVID-19 2020-11-10 Completed Unive rsity of PFIZER VACCINE 00:00:00 [facility] [place] [facility] SARS-COV-2 COVID-19 2020-11-10 Completed Unive rsity of PFIZER VACCINE 00:00:00 [facility] SARS-COV-2 COVID-19 2020-11-10 Completed Unive rsity of PFIZER VACCINE 00:00:00 [facility] SARS-COV-2 COVID-19 2020-11-10 Completed Unive rsity of PFIZER VACCINE 00:00:00 [facility] [place] [facility] SARS-COV-2 COVID-19 2020-11-10 Completed Unive rsity of PFIZER VACCINE 00:00:00 [facility] [place] [facility] SARS-COV-2 COVID-19 2020-11-10 Completed Unive rsity of PFIZER VACCINE 00:00:00 [facility] SARS-COV-2 COVID-19 2020-10-20 Completed Unive rsity of PFIZER VACCINE 00:00:00 [facility] SARS-COV-2 COVID-19 2020-10-20 Completed Unive rsity of PFIZER VACCINE 00:00:00 [place] [facility] SARS-COV-2 COVID-19 2020-10-20 Completed Unive rsity of PFIZER VACCINE 00:00:00 [facility] [place] [facility] SARS-COV-2 COVID-19 2020-10-20 Completed Unive rsity of PFIZER VACCINE 00:00:00 [facility] [place] [facility] SARS-COV-2 COVID-19 2020-10-20 Completed Unive rsity of PFIZER VACCINE 00:00:00 [facility] [place] [facility] SARS-COV-2 COVID-19 2020-10-20 Completed Unive rsity of PFIZER VACCINE 00:00:00 [facility] [place] [facility] SARS-COV-2 COVID-19 2020-10-20 Completed Unive rsity of PFIZER VACCINE 00:00:00 [facility] [place] [facility] SARS-COV-2 COVID-19 2020-10-20 Completed Unive rsity of PFIZER VACCINE 00:00:00 [facility] [place] [facility] SARS-COV-2 COVID-19 2020-10-20 Completed Unive rsity of PFIZER VACCINE 00:00:00 [facility] [place] [facility] SARS-COV-2 COVID-19 2020-10-20 Completed Unive rsity of PFIZER VACCINE 00:00:00 [facility] [place] [facility] SARS-COV-2 COVID-19 2020-10-20 Completed Unive rsity of PFIZER VACCINE 00:00:00 [facility] [place] [facility] SARS-COV-2 COVID-19 2020-10-20 Completed Unive rsity of PFIZER VACCINE 00:00:00 [facility] [place] [facility] SARS-COV-2 COVID-19 2020-10-20 Completed Unive rsity of PFIZER VACCINE 00:00:00 [facility] [place] [facility] SARS-COV-2 COVID-19 2020-10-20 Completed Unive rsity of PFIZER VACCINE 00:00:00 [facility] [place] [facility] SARS-COV-2 COVID-19 2020-10-20 Completed Unive rsity of PFIZER VACCINE 00:00:00 [facility] [place] [facility] SARS-COV-2 COVID-19 2020-10-20 Completed Unive rsity of PFIZER VACCINE 00:00:00 [facility] [place] [facility] SARS-COV-2 COVID-19 2020-10-20 Completed Unive rsity of PFIZER VACCINE 00:00:00 [facility] [place] [facility] SARS-COV-2 COVID-19 2020-10-20 Completed Unive rsity of PFIZER VACCINE 00:00:00 [facility] SARS-COV-2 COVID-19 2020-10-20 Completed Unive rsity of PFIZER VACCINE 00:00:00 [facility] SARS-COV-2 COVID-19 2020-10-20 Completed Unive rsity of PFIZER VACCINE 00:00:00 [facility] SARS-COV-2 COVID-19 2020-10-20 Completed Unive rsity of PFIZER VACCINE 00:00:00 [facility] SARS-COV-2 COVID-19 2020-10-20 Completed Unive rsity of PFIZER VACCINE 00:00:00 [facility] TDAP 2020-09-13 Completed [facility] of 00:00:00 [facility] TDAP 2020-09-13 Completed University of 00:00:00 [facility] TDAP 2020-09-13 Completed University of 00[facility]00:00 [facility] TDAP 2020-09-13 Completed University of 00[facility]00:00 [facility] TDAP 2020-09-13 Completed University of 00:00:00 [facility] TDAP 2020-09-13 Completed University of 00:00:00 [facility] TDAP 2020-09-13 Completed University of 00[facility]00:00 [facility] TDAP 2020-09-13 Completed University of 00:00:00 [facility] TDAP 2020-09-13 Completed University of 00:00:00 [facility] TDAP 2020-09-13 Completed University of 00:00:00 [facility] TDAP 2020-09-13 Completed University of 00[facility]00:00 [facility] TDAP 2020-09-13 Completed University of 00[facility]00:00 [facility] TDAP 2020-09-13 Completed University of 00[facility]00:00 [facility] TDAP 2020-09-13 Completed University of 00:00:00 [facility] TDAP 2020-09-13 Completed University of 00[facility]00:00 [facility] TDAP 2020-09-13 Completed University of 00[facility]00:00 [facility] TDAP 2020-09-13 Completed University of 00:00:00 [facility] TDAP 2020-09-13 Completed University of 00:00:00 [facility] TDAP 2020-09-13 Completed University of 00:00:00 [facility] TDAP 2020-09-13 Completed University of 00:00:00 [place] [facility] TDAP 2020-09-13 Completed University of 00:00:00 [place] [facility] TDAP 2020-09-13 Completed University of 00:00:00 [facility] Influenza Virus 2020-06-11 Completed Universit y of Vaccine Quad .5 mL 00:00:00 [place] [facility] IM 6+ MO Branch Influenza Virus 2020-06-11 Completed [facility]it y of Vaccine Quad .5 mL 00:00:00 [place] [facility] IM 6+ MO Branch Influenza Virus 2020-06-11 Completed [facility]it y of Vaccine Quad .5 mL 00:00:00 [place] [facility] IM 6+ MO Branch Influenza Virus 2020-06-11 Completed [facility]it y of Vaccine Quad .5 mL 00:00:00 [place] [facility] IM 6+ MO Branch Influenza Virus 2020-06-11 Completed [facility]it y of Vaccine Quad .5 mL 00:00:00 [place] [facility] IM 6+ MO Branch Influenza Virus 2020-06-11 Completed [facility]it y of Vaccine Quad .5 mL 00:00:00 [place] [facility] IM 6+ MO Branch Influenza Virus 2020-06-11 Completed [facility] y of Vaccine Quad .5 mL 00:00:00 [place] [facility] IM 6+ MO Branch Influenza Virus 2020-06-11 Completed [facility] y of Vaccine Quad .5 mL 00:00:00 [place] [facility] IM 6+ MO Branch Influenza Virus 2020-06-11 Completed [facility] y of Vaccine Quad .5 mL 00:00:00 [place] [facility] IM 6+ MO Branch Influenza Virus 2020-06-11 Completed [facility]it y of Vaccine Quad .5 mL 00:00:00 [place] [facility] IM 6+ MO Branch Influenza Virus 2020-06-11 Completed [facility]it y of Vaccine Quad .5 mL 00:00:00 [place] [facility] IM 6+ MO Branch Influenza Virus 2020-06-11 Completed [facility]it y of Vaccine Quad .5 mL 00:00:00 [place] [facility] IM 6+ MO Branch Influenza Virus 2020-06-11 Completed [facility]it y of Vaccine Quad .5 mL 00:00:00 [place] [facility] IM 6+ MO Branch Influenza Virus 2020-06-11 Completed [facility] y of Vaccine Quad .5 mL 00:00:00 [place] [facility] IM 6+ MO Branch Influenza Virus 2020-06-11 Completed [facility] y of Vaccine Quad .5 mL 00:00:00 [place] [facility] IM 6+ MO Branch Influenza Virus 2020-06-11 Completed [facility] y of Vaccine Quad .5 mL 00:00:00 [place] [facility] IM 6+ MO Branch Influenza Virus 2020-06-11 Completed [facility] y of Vaccine Quad .5 mL 00:00:00 [place] [facility] IM 6+ MO Branch Influenza Virus 2020-06-11 Completed [facility]it y of Vaccine Quad .5 mL 00:00:00 [place] [facility] IM 6+ MO Branch Influenza Virus 2020-06-11 Completed [facility] y of Vaccine Quad .5 mL 00:00:00 [place] [facility] IM 6+ MO Branch Influenza Virus 2020-06-11 Completed [facility] y of Vaccine Quad .5 mL 00:00:00 [place] [facility] IM 6+ MO Branch Influenza Virus 2020-06-11 Completed [facility] y of Vaccine Quad .5 mL 00:00:00 [place] [facility] IM 6+ MO Branch Influenza Virus 2020-06-11 Completed [facility]it y of Vaccine Quad .5 mL 00:00:00 [place] [facility] IM 6+ MO Branch HPV9 2017-07-14 Completed [facility] of 00:00:00 [facility] HPV9 2017-07-14 Completed University of 00:00:00 [facility] HPV9 2017-07-14 Completed [facility] of 00:00:00 [facility] HPV9 2017-07-14 Completed [facility] of 00:00:00 [facility] HPV9 2017-07-14 Completed [facility] of 00:00:00 [facility] HPV9 2017-07-14 Completed [facility] of 00:00:00 [facility] HPV9 2017-07-14 Completed [facility] of 00:00:00 [facility] HPV9 2017-07-14 Completed [facility] of 00:00:00 [facility] HPV9 2017-07-14 Completed [facility] of 00:00:00 [facility] HPV9 2017-07-14 Completed [facility] of 00:00:00 [facility] HPV9 2017-07-14 Completed [facility] of 00[facility]00:00 [facility] HPV9 2017-07-14 Completed [facility] of 00:00:00 [facility] HPV9 2017-07-14 Completed [facility] of 00:00:00 [facility] HPV9 2017-07-14 Completed [facility] of 00:00:00 [facility] HPV9 2017-07-14 Completed [facility] of 00:00:00 [facility] HPV9 2017-07-14 Completed [facility] of 00:00:00 [facility] HPV9 2017-07-14 Completed [facility] of 00:00:00 [facility] HPV9 2017-07-14 Completed University of 00:00:00 [facility] HPV9 2017-07-14 Completed [facility] of 00[facility]00:00 [facility] HPV9 2017-07-14 Completed [facility] of 00[facility]00:00 [facility] HPV9 2017-07-14 Completed [facility] of 00:00:00 [facility] HPV9 2017-07-14 Completed [facility] of 00[facility]00:00 [facility] Influenza Three-TIV 2017-05-18 Completed [facility] 5+ YR 00:00:00 [facility] Influenza Virus 2017-05-18 Completed Universit y of Vaccine (3+ yrs) 00:00:00 [facility] Influenza Virus 2017-05-18 Completed Universit y of Vaccine (3+ yrs) 00:00:00 [facility] Influenza Virus 2017-05-18 Completed Universit y of Vaccine (3+ yrs) 00:00:00 [facility] Influenza Virus 2017-05-18 Completed Universit y of Vaccine (3+ yrs) 00:00:00 [facility] Influenza Virus 2017-05-18 Completed Universit y of Vaccine (3+ yrs) 00:00:00 [facility] Influenza Virus 2017-05-18 Completed Universit y of Vaccine (3+ yrs) 00:00:00 [facility] Influenza Virus 2017-05-18 Completed Universit y of Vaccine (3+ yrs) 00:00:00 [facility] Influenza Virus 2017-05-18 Completed Universit y of Vaccine (3+ yrs) 00:00:00 [facility] Influenza Virus 2017-05-18 Completed Universit y of Vaccine (3+ yrs) 00:00:00 [facility] Influenza Virus 2017-05-18 Completed Universit y of Vaccine (3+ yrs) 00:00:00 [facility] Influenza Virus 2017-05-18 Completed Universit y of Vaccine (3+ yrs) 00:00:00 [facility] Influenza Virus 2017-05-18 Completed Universit y of Vaccine (3+ yrs) 00:00:00 [facility] Influenza Virus 2017-05-18 Completed Universit y of Vaccine (3+ yrs) 00:00:00 [facility] Influenza Virus 2017-05-18 Completed Universit y of Vaccine (3+ yrs) 00:00:00 [facility] Influenza Virus 2017-05-18 Completed Universit y of Vaccine (3+ yrs) 00:00:00 [facility] Influenza Virus 2017-05-18 Completed Universit y of Vaccine (3+ yrs) 00:00:00 [facility] Influenza Virus 2017-05-18 Completed [facility]it y of Vaccine (3+ yrs) 00:00:00 [facility] Influenza Virus 2017-05-18 Completed Universit y of Vaccine (3+ yrs) 00:00:00 [facility] Influenza Virus 2017-05-18 Completed Universit y of Vaccine (3+ yrs) 00:00:00 [facility] Influenza Virus 2017-05-18 Completed Universit y of Vaccine (3+ yrs) 00:00:00 [facility] Influenza Virus 2017-05-18 Completed Universit y of Vaccine (3+ yrs) 00:00:00 [facility] Influenza Virus 2017-05-18 Completed Universit y of Vaccine (3+ yrs) 00:00:00 [facility] Influenza Three-TIV 2017-05-18 Completed [facility]+ YR 00[facility]00:00 [facility] Influenza Three-TIV 2017-05-18 Completed [facility] 5+ YR 00:00:00 [facility] HPV9 2017-04-14 Completed [facility] of 00:00:00 [facility] TDAP (ADACEL) 2017-04-14 Completed University of VACCINE 00:00:00 [facility] HPV9 2017-04-14 Completed [facility] of 00:00:00 [facility] TDAP (ADACEL) 2017-04-14 Completed University of VACCINE 00:00:00 [facility] HPV9 2017-04-14 Completed [facility] 00[facility]00:00 [facility] TDAP (ADACEL) 2017-04-14 Completed University of VACCINE 00:00:00 [facility] HPV9 2017-04-14 Completed [facility] 00:00:00 [facility] TDAP (ADACEL) 2017-04-14 Completed [facility] of VACCINE 00:00:00 [facility] HPV9 2017-04-14 Completed [facility] of 00:00:00 [facility] TDAP (ADACEL) 2017-04-14 Completed [facility] of VACCINE 00:00:00 [facility] HPV9 2017-04-14 Completed [facility] 00:00:00 [facility] TDAP (ADACEL) 2017-04-14 Completed [facility] of VACCINE 00:00:00 [facility] HPV9 2017-04-14 Completed [facility] 00:00:00 [facility] TDAP (ADACEL) 2017-04-14 Completed [facility] of VACCINE 00:00:00 [facility] HPV9 2017-04-14 Completed [facility] 00:00:00 [facility] TDAP (ADACEL) 2017-04-14 Completed [facility] VACCINE 00:00:00 [facility] HPV9 2017-04-14 Completed [facility] 00:00:00 [facility] TDAP (ADACEL) 2017-04-14 Completed [facility] VACCINE 00:00:00 [facility] HPV9 2017-04-14 Completed [facility] 00:00:00 [facility] TDAP (ADACEL) 2017-04-14 Completed [facility] of VACCINE 00:00:00 [facility] HPV9 2017-04-14 Completed [facility] 00:00:00 [facility] TDAP (ADACEL) 2017-04-14 Completed [facility] of VACCINE 00:00:00 [facility] HPV9 2017-04-14 Completed [facility] 00:00:00 [facility] TDAP (ADACEL) 2017-04-14 Completed [facility] of VACCINE 00:00:00 [facility] HPV9 2017-04-14 Completed [facility] 00:00:00 [facility] TDAP (ADACEL) 2017-04-14 Completed [facility] of VACCINE 00:00:00 [facility] HPV9 2017-04-14 Completed [facility] 00:00:00 [facility] TDAP (ADACEL) 2017-04-14 Completed [facility] of VACCINE 00:00:00 [facility] HPV9 2017-04-14 Completed [facility] 00:00:00 [facility] TDAP (ADACEL) 2017-04-14 Completed [facility] VACCINE 00:00:00 [facility] HPV9 2017-04-14 Completed [facility] 00:00:00 [facility] TDAP (ADACEL) 2017-04-14 Completed [facility] VACCINE 00:00:00 [facility] HPV9 2017-04-14 Completed [facility] 00:00:00 [facility] TDAP (ADACEL) 2017-04-14 Completed [facility] VACCINE 00:00:00 [facility] HPV9 2017-04-14 Completed [facility] 00:00:00 [facility] TDAP (ADACEL) 2017-04-14 Completed [facility] VACCINE 00:00:00 [facility] HPV9 2017-04-14 Completed [facility] 00:00:00 [facility] TDAP (ADACEL) 2017-04-14 Completed [facility] VACCINE 00:00:00 [facility] HPV9 2017-04-14 Completed [facility] 00:00:00 [facility] TDAP (ADACEL) 2017-04-14 Completed [facility] VACCINE 00:00:00 [facility] HPV9 2017-04-14 Completed [facility] 00:00:00 [facility] TDAP (ADACEL) 2017-04-14 Completed [facility] of VACCINE 00:00:00 [facility] HPV9 2017-04-14 Completed [facility] 00:00:00 [facility] TDAP (ADACEL) 2017-04-14 Completed [facility] of VACCINE 00:00:00 [facility] TDAP 2015-12-27 Completed [facility] of 00:00:00 [facility] TDAP 2015-12-27 Completed [facility] 00:00:00 [facility] TDAP 2015-12-27 Completed [facility] 00:00:00 [facility] TDAP 2015-12-27 Completed [facility] 00:00:00 [facility] TDAP 2015-12-27 Completed [facility] 00:00:00 [facility] TDAP 2015-12-27 Completed [facility] 00:00:00 [facility] TDAP 2015-12-27 Completed [facility] 00:00:00 [facility] TDAP 2015-12-27 Completed [facility] 00:00:00 [facility] TDAP 2015-12-27 Completed [facility] 00:00:00 [facility] TDAP 2015-12-27 Completed [facility] 00:00:00 [facility] TDAP 2015-12-27 Completed [facility] 00:00:00 [facility] TDAP 2015-12-27 Completed [facility] 00:00:00 [facility] TDAP 2015-12-27 Completed [facility] 00:00:00 [facility] TDAP 2015-12-27 Completed [facility] 00:00:00 [facility] TDAP 2015-12-27 Completed [facility] 00:00:00 [facility] TDAP 2015-12-27 Completed [facility] 00:00:00 [facility] TDAP 2015-12-27 Completed [facility] 00:00:00 [facility] TDAP 2015-12-27 Completed [facility] of 00:00:00 [facility] TDAP 2015-12-27 Completed [facility] 00:00:00 [facility] TDAP 2015-12-27 Completed [facility] of 00[facility]00:00 [facility] TDAP 2015-12-27 Completed [facility] of 00:00:00 [facility] TDAP 2015-12-27 Completed [facility] of 00:00:00 [facility] Influenza Virus 2015-09-07 Completed Universit y of Vaccine Quad IM 3+ 00:00:00 [facility] Influenza Virus 2015-09-07 Completed [facility]it y of Vaccine Quad IM 3+ 00:00:00 [facility] Influenza Virus 2015-09-07 Completed [facility]it y of Vaccine Quad IM 3+ 00:00:00 [facility] Influenza Virus 2015-09-07 Completed [facility]it y of Vaccine Quad IM 3+ 00:00:00 [facility] Influenza Virus 2015-09-07 Completed [facility] y of Vaccine Quad IM 3+ 00:00:00 [facility] Influenza Virus 2015-09-07 Completed [facility] y of Vaccine Quad IM 3+ 00:00:00 [facility] Influenza Virus 2015-09-07 Completed [facility] y of Vaccine Quad IM 3+ 00:00:00 [facility] Influenza Virus 2015-09-07 Completed [facility] y of Vaccine Quad IM 3+ 00:00:00 [facility] Influenza Virus 2015-09-07 Completed [facility] y of Vaccine Quad IM 3+ 00:00:00 [facility] Influenza Virus 2015-09-07 Completed [facility] y of Vaccine Quad IM 3+ 00:00:00 [facility] Influenza Virus 2015-09-07 Completed [facility] y of Vaccine Quad IM 3+ 00:00:00 [facility] Influenza Virus 2015-09-07 Completed [facility] y of Vaccine Quad IM 3+ 00:00:00 [facility] Influenza Virus 2015-09-07 Completed [facility] y of Vaccine Quad IM 3+ 00:00:00 [facility] Influenza Virus 2015-09-07 Completed [facility] y of Vaccine Quad IM 3+ 00:00:00 [facility] Influenza Virus 2015-09-07 Completed [facility] y of Vaccine Quad IM 3+ 00:00:00 [facility] Influenza Virus 2015-09-07 Completed [facility] y of Vaccine Quad IM 3+ 00:00:00 [facility] Influenza Virus 2015-09-07 Completed [facility] y of Vaccine Quad IM 3+ 00:00:00 [facility] Influenza Virus 2015-09-07 Completed [facility] y of Vaccine Quad IM 3+ 00:00:00 [facility] Influenza Virus 2015-09-07 Completed [facility] y of Vaccine Quad IM 3+ 00:00:00 [facility] Influenza Virus 2015-09-07 Completed [facility] y of Vaccine Quad IM 3+ 00:00:00 [facility] Influenza Virus 2015-09-07 Completed [facility] y of Vaccine Quad IM 3+ 00:00:00 [facility] Influenza Virus 2015-09-07 Completed [facility] y of Vaccine Quad IM 3+ 00:00:00 [facility] HPV 2015-01-24 Completed [facility] 00:00:00 [facility] HPV 2015-01-24 Completed [facility] 00:00:00 [facility] HPV 2015-01-24 Completed [facility] 00[facility]00:00 [facility] HPV 2015-01-24 Completed [facility] 00:00:00 [facility] HPV 2015-01-24 Completed [facility] 00:00:00 [facility] HPV 2015-01-24 Completed [facility] 00[facility]00:00 [facility] HPV 2015-01-24 Completed [facility] 00[facility]00:00 [facility] HPV 2015-01-24 Completed [facility] 00:00:00 [facility] HPV 2015-01-24 Completed [facility] 00[facility]00:00 [facility] HPV 2015-01-24 Completed [facility] 00:00:00 [facility] HPV 2015-01-24 Completed [facility] of 00:00:00 [facility] HPV 2015-01-24 Completed [facility] 00:00:00 [facility] HPV 2015-01-24 Completed [facility] 00:00:00 [facility] HPV 2015-01-24 Completed [facility] of 00:00:00 [facility] HPV 2015-01-24 Completed [facility] 00:00:00 [facility] HPV 2015-01-24 Completed [facility] 00:00:00 [facility] HPV 2015-01-24 Completed [facility] 00:00:00 [facility] HPV 2015-01-24 Completed [facility] 00:00:00 [facility] HPV 2015-01-24 Completed [facility] 00:00:00 [facility] HPV 2015-01-24 Completed [facility] 00:00:00 [facility] HPV 2015-01-24 Completed [facility] 00:00:00 [facility] HPV 2015-01-24 Completed [facility] 00:00:00 [facility] Pneumococcal 13 2014-07-20 Completed Universit y of Conjugate, PCV13 00:00:00 [facility] (Pre[facility]ar 13) [facility] Pneumococcal 13 2014-07-20 Completed [facility]it y of Conjugate, PCV13 00:00:00 [facility] (Prevnar 13) [facility] Pneumococcal 13 2014-07-20 Completed [facility]it y of Conjugate, PCV13 00:00:00 [facility] (Prevnar 13) [facility] Pneumococcal 13 2014-07-20 Completed [facility] y of Conjugate, PCV13 00:00:00 [facility] (Prevnar 13) [facility] Pneumococcal 13 2014-07-20 Completed [facility] y of Conjugate, PCV13 00:00:00 [facility] (Prevnar 13) [facility] Pneumococcal 13 2014-07-20 Completed [facility] y of Conjugate, PCV13 00:00:00 [facility] (Prevnar 13) [facility] Pneumococcal 13 2014-07-20 Completed [facility] y of Conjugate, PCV13 00:00:00 [facility] (Prevnar 13) [facility] Pneumococcal 13 2014-07-20 Completed [facility] y of Conjugate, PCV13 00:00:00 [facility] (Prevnar 13) [facility] Pneumococcal 13 2014-07-20 Completed [facility]it y of Conjugate, PCV13 00:00:00 [facility] (Prevnar 13) [facility] Pneumococcal 13 2014-07-20 Completed [facility] y of Conjugate, PCV13 00:00:00 [facility] (Prevnar 13) [facility] Pneumococcal 13 2014-07-20 Completed [facility] y of Conjugate, PCV13 00:00:00 [facility] (Prevnar 13) [facility] Pneumococcal 13 2014-07-20 Completed [facility] y of Conjugate, PCV13 00:00:00 [facility] (Prevnar 13) [facility] Pneumococcal 13 2014-07-20 Completed [facility] y of Conjugate, PCV13 00:00:00 [facility] (Prevnar 13) [facility] Pneumococcal 13 2014-07-20 Completed [facility] y of Conjugate, PCV13 00:00:00 [facility] (Prevnar 13) [facility] Pneumococcal 13 2014-07-20 Completed [facility] y of Conjugate, PCV13 00:00:00 [facility] (Prevnar 13) [facility] Pneumococcal 13 2014-07-20 Completed [facility] y of Conjugate, PCV13 00:00:00 [facility] (Prevnar 13) [facility] Pneumococcal 13 2014-07-20 Completed [facility] y of Conjugate, PCV13 00:00:00 [facility] (Prevnar 13) [facility] Pneumococcal 13 2014-07-20 Completed [facility]it y of Conjugate, PCV13 00:00:00 [facility] (Prevnar 13) [facility] Pneumococcal 13 2014-07-20 Completed [facility] y of Conjugate, PCV13 00:00:00 [facility] (Prevnar 13) [facility] Pneumococcal 13 2014-07-20 Completed [facility] y of Conjugate, PCV13 00:00:00 [facility] (Prevnar 13) [facility] Pneumococcal 13 2014-07-20 Completed Universit y of Conjugate, PCV13 00:00:00 [facility] dical (Prevnar 13) Branch Pneumococcal 13 2014-07-20 Completed Universit y of Conjugate, PCV13 00:00:00 [facility] dical (Prevnar 13) Branch Meningococcal 2010-06-06 Completed University of Vaccine 00:00:00 [facility] TDAP 2010-06-06 Completed [facility] of 00:00:00 [facility] Meningococcal 2010-06-06 Completed [facility] of Vaccine 00:00:00 [facility] TDAP 2010-06-06 Completed [facility] of 00:00:00 [facility] Meningococcal 2010-06-06 Completed [facility] of Vaccine 00:00:00 [facility] TDAP 2010-06-06 Completed [facility] of 00:00:00 [facility] Meningococcal 2010-06-06 Completed [facility] of Vaccine 00:00:00 [facility] TDAP 2010-06-06 Completed [facility] of 00:00:00 [facility] Meningococcal 2010-06-06 Completed [facility] of Vaccine 00:00:00 [facility] TDAP 2010-06-06 Completed [facility] of 00:00:00 [facility] Meningococcal 2010-06-06 Completed [facility] of Vaccine 00:00:00 [facility] TDAP 2010-06-06 Completed [facility] of 00:00:00 [facility] Meningococcal 2010-06-06 Completed [facility] of Vaccine 00:00:00 [facility] TDAP 2010-06-06 Completed [facility] of 00:00:00 [facility] Meningococcal 2010-06-06 Completed [facility] of Vaccine 00:00:00 [facility] TDAP 2010-06-06 Completed [facility] 00:00:00 [facility] Meningococcal 2010-06-06 Completed [facility] of Vaccine 00:00:00 [facility] TDAP 2010-06-06 Completed [facility] 00:00:00 [facility] Meningococcal 2010-06-06 Completed [facility] of Vaccine 00:00:00 [facility] TDAP 2010-06-06 Completed [facility] of 00:00:00 [facility] Meningococcal 2010-06-06 Completed [facility] of Vaccine 00:00:00 [facility] TDAP 2010-06-06 Completed [facility] 00:00:00 [facility] Meningococcal 2010-06-06 Completed [facility] of Vaccine 00:00:00 [facility] TDAP 2010-06-06 Completed [facility] 00:00:00 [facility] Meningococcal 2010-06-06 Completed [facility] of Vaccine 00:00:00 [facility] TDAP 2010-06-06 Completed [facility] of 00:00:00 [facility] Meningococcal 2010-06-06 Completed [facility] of Vaccine 00:00:00 [facility] TDAP 2010-06-06 Completed [facility] of 00:00:00 [facility] Meningococcal 2010-06-06 Completed [facility] of Vaccine 00:00:00 [facility] TDAP 2010-06-06 Completed [facility] of 00:00:00 [facility] Meningococcal 2010-06-06 Completed [facility] of Vaccine 00:00:00 [facility] TDAP 2010-06-06 Completed [facility] of 00:00:00 [facility] Meningococcal 2010-06-06 Completed [facility] of Vaccine 00:00:00 [facility] TDAP 2010-06-06 Completed [facility] of 00:00:00 [facility] Meningococcal 2010-06-06 Completed [facility] of Vaccine 00:00:00 [facility] TDAP 2010-06-06 Completed [facility] of 00:00:00 [facility] Meningococcal 2010-06-06 Completed [facility] of Vaccine 00:00:00 [facility] TDAP 2010-06-06 Completed [facility] of 00:00:00 [facility] Meningococcal 2010-06-06 Completed [facility] of Vaccine 00:00:00 [facility] TDAP 2010-06-06 Completed [facility] of 00:00:00 [facility] Meningococcal 2010-06-06 Completed [facility] of Vaccine 00:00:00 [facility] TDAP 2010-06-06 Completed [facility] of 00:00:00 [facility] Meningococcal 2010-06-06 Completed [facility] of Vaccine 00:00:00 [facility] TDAP 2010-06-06 Completed [facility] of 00:00:00 [facility] Varicella 2008-03-09 Completed University of (varivax)(chicken 00:00:00 [...] HEPATITIS A 2006-03-09 Completed [facility] of 00:00:00 [facility] HEPATITIS A 2006-03-09 Completed [facility] of 00:00:00 [facility] HEPATITIS A 2006-03-09 Completed [facility] of 00:00:00 [facility] HEPATITIS A 2006-03-09 Completed [facility] of 00:00:00 [facility] HEPATITIS A 2006-03-09 Completed [facility] of 00:00:00 [facility] HEPATITIS A 2006-03-09 Completed [facility] of 00:00:00 [facility] HEPATITIS A 2006-03-09 Completed [facility] of 00:00:00 [facility] HEPATITIS A 2006-03-09 Completed [facility] of 00:00:00 [facility] HEPATITIS A 2006-03-09 Completed [facility] of 00:00:00 [facility] HEPATITIS A 2006-03-09 Completed [facility] of 00:00:00 [facility] HEPATITIS A 2006-03-09 Completed [facility] of 00:00:00 [facility] HEPATITIS A 2006-03-09 Completed [facility] of 00:00:00 [facility] HEPATITIS A 2006-03-09 Completed [facility] of 00:00:00 [facility] HEPATITIS A 2006-03-09 Completed [facility] of 00:00:00 [facility] HEPATITIS A 2006-03-09 Completed [facility] of 00:00:00 [facility] HEPATITIS A 2006-03-09 Completed [facility] of 00:00:00 [facility] HEPATITIS A 2006-03-09 Completed [facility] of 00:00:00 [facility] HEPATITIS A 2006-03-09 Completed [facility] of 00:00:00 [facility] HEPATITIS A 2006-03-09 Completed [facility] of 00:00:00 [facility] HEPATITIS A 2006-03-09 Completed [facility] of 00:00:00 [facility] HEPATITIS A 2006-03-09 Completed [facility] of 00:00:00 [facility] HEPATITIS A 2006-03-09 Completed [facility] of 00:00:00 [facility] HEPATITIS A 2005-05-22 Completed [facility] of 00:00:00 [facility] Hep B, Adol or Pedi 2005-05-22 Completed Unive rsity of Dosage 00:00:00 [facility] Polio (IPV/OPV) 2005-05-22 Completed [facility] 00:00:00 [facility] Td 2005-05-22 Completed [facility] of 00:00:00 [facility] HEPATITIS A 2005-05-22 Completed [facility] of 00:00:00 [facility] Hep B, Adol or Pedi 2005-05-22 Completed Unive rsity of Dosage 00:00:00 [facility] Polio (IPV/OPV) 2005-05-22 Completed [facility] 00:00:00 [facility] Td 2005-05-22 Completed [facility] of 00:00:00 [facility] HEPATITIS A 2005-05-22 Completed [facility] 00:00:00 [facility] Hep B, Adol or Pedi 2005-05-22 Completed Unive rsity of Dosage 00:00:00 [facility] Polio (IPV/OPV) 2005-05-22 Completed [facility] 00:00:00 [facility] Td 2005-05-22 Completed [facility] of 00:00:00 [facility] HEPATITIS A 2005-05-22 Completed [facility] 00:00:00 [facility] Hep B, Adol or Pedi 2005-05-22 Completed Unive rsity of Dosage 00:00:00 [facility] Polio (IPV/OPV) 2005-05-22 Completed [facility] 00:00:00 [facility] Td 2005-05-22 Completed [facility] of 00:00:00 [facility] HEPATITIS A 2005-05-22 Completed [facility] 00:00:00 [facility] Hep B, Adol or Pedi 2005-05-22 Completed Unive rsity of Dosage 00:00:00 [facility] Polio (IPV/OPV) 2005-05-22 Completed [facility] 00:00:00 [facility] Td 2005-05-22 Completed [facility] of 00:00:00 [facility] HEPATITIS A 2005-05-22 Completed [facility] 00:00:00 [facility] Hep B, Adol or Pedi 2005-05-22 Completed Unive rsity of Dosage 00:00:00 [facility] Polio (IPV/OPV) 2005-05-22 Completed [facility] 00:00:00 [facility] Td 2005-05-22 Completed [facility] 00:00:00 [facility] HEPATITIS A 2005-05-22 Completed [facility] 00:00:00 [facility] Hep B, Adol or Pedi 2005-05-22 Completed Unive rsity of Dosage 00:00:00 [facility] Polio (IPV/OPV) 2005-05-22 Completed [facility] 00:00:00 [facility] Td 2005-05-22 Completed [facility] of 00:00:00 [facility] HEPATITIS A 2005-05-22 Completed [facility] 00:00:00 [facility] Hep B, Adol or Pedi 2005-05-22 Completed Unive rsity of Dosage 00:00:00 [facility] Polio (IPV/OPV) 2005-05-22 Completed [facility] 00:00:00 [facility] Td 2005-05-22 Completed [facility] of 00:00:00 [facility] HEPATITIS A 2005-05-22 Completed [facility] 00:00:00 [facility] Hep B, Adol or Pedi 2005-05-22 Completed [facility]ive rsity of Dosage 00:00:00 [facility] Polio (IPV/OPV) 2005-05-22 Completed [facility] 00:00:00 [facility] Td 2005-05-22 Completed [facility] of 00:00:00 [facility] HEPATITIS A 2005-05-22 Completed [facility] 00:00:00 [facility] Hep B, Adol or Pedi 2005-05-22 Completed [facility]ive rsity of Dosage 00:00:00 [facility] Polio (IPV/OPV) 2005-05-22 Completed [facility] 00:00:00 [facility] Td 2005-05-22 Completed [facility] of 00:00:00 [facility] HEPATITIS A 2005-05-22 Completed [facility] 00:00:00 [facility] Hep B, Adol or Pedi 2005-05-22 Completed [facility]ive rsity of Dosage 00:00:00 [facility] Polio (IPV/OPV) 2005-05-22 Completed [facility] 00:00:00 [facility] Td 2005-05-22 Completed [facility] of 00:00:00 [facility] HEPATITIS A 2005-05-22 Completed [facility] 00:00:00 [facility] Hep B, Adol or Pedi 2005-05-22 Completed [facility]ive rsity of Dosage 00:00:00 [facility] Polio (IPV/OPV) 2005-05-22 Completed [facility] 00:00:00 [facility] Td 2005-05-22 Completed [facility] of 00:00:00 [facility] HEPATITIS A 2005-05-22 Completed [facility] 00:00:00 [facility] Hep B, Adol or Pedi 2005-05-22 Completed [facility]ive rsity of Dosage 00:00:00 [facility] Polio (IPV/OPV) 2005-05-22 Completed [facility] 00:00:00 [facility] Td 2005-05-22 Completed [facility] of 00:00:00 [facility] HEPATITIS A 2005-05-22 Completed [facility] of 00:00:00 [facility] Hep B, Adol or Pedi 2005-05-22 Completed [facility]ive rsity of Dosage 00:00:00 [facility] Polio (IPV/OPV) 2005-05-22 Completed [facility] 00:00:00 [facility] Td 2005-05-22 Completed [facility] of 00:00:00 [facility] HEPATITIS A 2005-05-22 Completed [facility] of 00:00:00 [facility] Hep B, Adol or Pedi 2005-05-22 Completed [facility]ive rsity of Dosage 00:00:00 [facility] Polio (IPV/OPV) 2005-05-22 Completed [facility] 00:00:00 [facility] Td 2005-05-22 Completed [facility] of 00:00:00 [facility] HEPATITIS A 2005-05-22 Completed [facility] 00:00:00 [facility] Hep B, Adol or Pedi 2005-05-22 Completed [facility] Dosage 00:00[facility] Branch Polio (IPV/OPV) 2005-05-22 Completed [facility]00 [facility] Td 2005-05-22 Completed [facility] 00:00:00 [facility] HEPATITIS A 2005-05-22 Completed [facility] 00:00:00 [facility] Hep B, Adol or Pedi 2005-05-22 Completed [facility]ive rsity of Dosage 00:00:00 [facility] Polio (IPV/OPV) 2005-05-22 Completed [facility] 00:00:00 [facility] Td 2005-05-22 Completed [facility] 00:00:00 [facility] HEPATITIS A 2005-05-22 Completed [facility] 00:00:00 [facility] Hep B, Adol or Pedi 2005-05-22 Completed [facility] Dosage 00:00:00 [facility] Polio (IPV/OPV) 2005-05-22 Completed [facility] 00:00:00 [facility] Td 2005-05-22 Completed [facility] 00:00:00 [facility] HEPATITIS A 2005-05-22 Completed [facility] 00:00:00 [facility] Hep B, Adol or Pedi 2005-05-22 Completed [facility] of Dosage 00:00:00 [facility] Polio (IPV/OPV) 2005-05-22 Completed [facility] 00[facility]00:00 [facility] Td 2005-05-22 Completed [facility] 00:00:00 [facility] HEPATITIS A 2005-05-22 Completed [facility] 00:00:00 [facility] Hep B, Adol or Pedi 2005-05-22 Completed [facility] Dosage 00:00:00 [facility] Polio (IPV/OPV) 2005-05-22 Completed [facility] 00[facility]00:00 [facility] Td 2005-05-22 Completed [facility] 00:00:00 [facility] HEPATITIS A 2005-05-22 Completed [facility] 00:00:00 [facility] Hep B, Adol or Pedi 2005-05-22 Completed [facility] Dosage 00:00:00 [facility] Polio (IPV/OPV) 2005-05-22 Completed [facility] 00:00:00 [facility] Td 2005-05-22 Completed [facility] 00:00:00 [facility] HEPATITIS A 2005-05-22 Completed [facility] 00:00:00 [facility] Hep B, Adol or Pedi 2005-05-22 Completed [facility] Dosage 00:00:00 [facility] Polio (IPV/OPV) 2005-05-22 Completed [facility] 00:00:00 [facility] Td 2005-05-22 Completed [facility] 00:00:00 [facility] DTAP 2005-01-14 Completed [facility] 00:00:00 [facility] Hep B, Adol or Pedi 2005-01-14 Completed [facility] of Dosage 00:00:00 [facility] MMR 2005-01-14 Completed [facility] 00:00:00 [facility] Polio (IPV/OPV) 2005-01-14 Completed [facility] 00:00:00 [facility] DTAP 2005-01-14 Completed [facility] 00:00:00 [facility] Hep B, Adol or Pedi 2005-01-14 Completed [facility] rs[facility] of Dosage 00:00:00 [facility] MMR 2005-01-14 Completed [facility] 00:00:00 [facility] Polio (IPV/OPV) 2005-01-14 Completed [facility] 00:00:00 [facility] DTAP 2005-01-14 Completed [facility] 00:00:00 [facility] Hep B, Adol or Pedi 2005-01-14 Completed [facility] Dosage 00:00:00 [facility] MMR 2005-01-14 Completed [facility] 00:00:00 [facility] Polio (IPV/OPV) 2005-01-14 Completed [facility] 00:00:00 [facility] DTAP 2005-01-14 Completed [facility] 00:00:00 [facility] Hep B, Adol or Pedi 2005-01-14 Completed [facility] rs[facility] of Dosage 00:00:00 [facility] MMR 2005-01-14 Completed [facility] 00:00:00 [facility] Polio (IPV/OPV) 2005-01-14 Completed [facility] 00:00:00 [facility] DTAP 2005-01-14 Completed [facility] 00:00:00 [facility] Hep B, Adol or Pedi 2005-01-14 Completed [facility] of Dosage 00:00:00 [facility] MMR 2005-01-14 Completed [facility] 00:00:00 [facility] Polio (IPV/OPV) 2005-01-14 Completed [facility] 00:00:00 [facility] DTAP 2005-01-14 Completed [facility] 00:00:00 [facility] Hep B, Adol or Pedi 2005-01-14 Completed [facility] of Dosage 00:00:00 [facility] MMR 2005-01-14 Completed [facility] 00:00:00 [facility] Polio (IPV/OPV) 2005-01-14 Completed [facility] 00:00:00 [facility] DTAP 2005-01-14 Completed [facility] 00:00:00 [facility] Hep B, Adol or Pedi 2005-01-14 Completed [facility] of Dosage 00:00:00 [facility] MMR 2005-01-14 Completed [facility] 00:00:00 [facility] Polio (IPV/OPV) 2005-01-14 Completed [facility] 00:00:00 [facility] DTAP 2005-01-14 Completed [facility] 00:00:00 [facility] Hep B, Adol or Pedi 2005-01-14 Completed [facility] Dosage 00:00:00 [facility] MMR 2005-01-14 Completed [facility] 00:00:00 [facility] Polio (IPV/OPV) 2005-01-14 Completed [facility] 00:00:00 [facility] DTAP 2005-01-14 Completed [facility] 00:00:00 [facility] Hep B, Adol or Pedi 2005-01-14 Completed [facility] Dosage 00:00:00 [facility] MMR 2005-01-14 Completed [facility] 00:00:00 [facility] Polio (IPV/OPV) 2005-01-14 Completed [facility] 00:00:00 [facility] DTAP 2005-01-14 Completed [facility] 00:00:00 [facility] Hep B, Adol or Pedi 2005-01-14 Completed [facility] Dosage 00:00:00 [facility] MMR 2005-01-14 Completed [facility] 00:00:00 [facility] Polio (IPV/OPV) 2005-01-14 Completed [facility] 00:00:00 [facility] DTAP 2005-01-14 Completed [facility] 00:00:00 [facility] Hep B, Adol or Pedi 2005-01-14 Completed [facility] Dosage 00:00:00 [facility] MMR 2005-01-14 Completed [facility] 00:00:00 [facility] Polio (IPV/OPV) 2005-01-14 Completed [facility] 00:00:00 [facility] DTAP 2005-01-14 Completed [facility] 00:00:00 [facility] Hep B, Adol or Pedi 2005-01-14 Completed [facility] of Dosage 00:00:00 [facility] MMR 2005-01-14 Completed [facility] 00:00:00 [facility] Polio (IPV/OPV) 2005-01-14 Completed [facility] 00:00:00 [facility] DTAP 2005-01-14 Completed [facility] 00:00:00 [facility] Hep B, Adol or Pedi 2005-01-14 Completed [facility] Dosage 00:00:00 [facility] MMR 2005-01-14 Completed [facility] 00:00:00 [facility] Polio (IPV/OPV) 2005-01-14 Completed [facility] 00:00:00 [facility] DTAP 2005-01-14 Completed [facility] 00:00:00 [facility] Hep B, Adol or Pedi 2005-01-14 Completed [facility] Dosage 00:00:00 [facility] MMR 2005-01-14 Completed [facility] 00:00:00 [facility] Polio (IPV/OPV) 2005-01-14 Completed [facility] 00:00:00 [facility] DTAP 2005-01-14 Completed [facility] 00:00:00 [facility] Hep B, Adol or Pedi 2005-01-14 Completed [facility] Dosage 00:00:00 [facility] MMR 2005-01-14 Completed [facility] 00:00:00 [facility] Polio (IPV/OPV) 2005-01-14 Completed [facility] 00:00:00 [facility] DTAP 2005-01-14 Completed [facility] 00:00:00 [facility] Hep B, Adol or Pedi 2005-01-14 Completed [facility] Dosage 00:00:00 [facility] MMR 2005-01-14 Completed [facility] 00:00:00 [facility] Polio (IPV/OPV) 2005-01-14 Completed [facility] 00:00:00 [facility] DTAP 2005-01-14 Completed [facility] 00:00:00 [facility] Hep B, Adol or Pedi 2005-01-14 Completed [facility] Dosage 00:00:00 [facility] MMR 2005-01-14 Completed [facility] 00:00:00 [facility] Polio (IPV/OPV) 2005-01-14 Completed [facility] 00:00:00 [facility] DTAP 2005-01-14 Completed [facility] 00:00:00 [facility] Hep B, Adol or Pedi 2005-01-14 Completed [facility] Dosage 00:00:00 [facility] MMR 2005-01-14 Completed [facility] 00:00:00 [facility] Polio (IPV/OPV) 2005-01-14 Completed [facility] 00:00:00 [facility] DTAP 2005-01-14 Completed [facility] 00:00:00 [facility] Hep B, Adol or Pedi 2005-01-14 Completed [facility] Dosage 00:00:00 [facility] MMR 2005-01-14 Completed [facility] 00:00:00 [facility] Polio (IPV/OPV) 2005-01-14 Completed [facility] 00:00:00 [facility] DTAP 2005-01-14 Completed [facility] 00:00:00 [facility] Hep B, Adol or Pedi 2005-01-14 Completed [facility] Dosage 00:00:00 [facility] MMR 2005-01-14 Completed [facility] 00:00:00 [facility] Polio (IPV/OPV) 2005-01-14 Completed [facility] 00:00:00 [facility] DTAP 2005-01-14 Completed [facility] 00:00:00 [facility] Hep B, Adol or Pedi 2005-01-14 Completed [facility] Dosage 00:00:00 [facility] MMR 2005-01-14 Completed [facility] 00:00:00 [facility] Polio (IPV/OPV) 2005-01-14 Completed [facility] 00:00:00 [facility] DTAP 2005-01-14 Completed [facility] 00:00:00 [facility] Hep B, Adol or Pedi 2005-01-14 Completed [facility] Dosage 00:00:00 [facility] MMR 2005-01-14 Completed [facility] 00:00:00 [facility] Polio (IPV/OPV) 2005-01-14 Completed [facility] 00:00:00 [facility] DTAP 2004-03-12 Completed [facility] 00:00:00 [facility] Hep B, Adol or Pedi 2004-03-12 Completed [facility] Dosage 00:00:00 [facility] Polio (IPV/OPV) 2004-03-12 Completed [facility] 00:00:00 [facility] DTAP 2004-03-12 Completed [facility] 00:00:00 [facility] Hep B, Adol or Pedi 2004-03-12 Completed [facility] Dosage 00:00:00 [facility] Polio (IPV/OPV) 2004-03-12 Completed [facility] 00:00:00 [facility] DTAP 2004-03-12 Completed [facility] 00:00:00 [facility] Hep B, Adol or Pedi 2004-03-12 Completed [facility] Dosage 00:00:00 [facility] Polio (IPV/OPV) 2004-03-12 Completed [facility] 00:00:00 [facility] DTAP 2004-03-12 Completed [facility] 00:00:00 [facility] Hep B, Adol or Pedi 2004-03-12 Completed [facility] Dosage 00:00:00 [facility] Polio (IPV/OPV) 2004-03-12 Completed [facility] 00:00:00 [facility] DTAP 2004-03-12 Completed [facility] 00:00:00 [facility] Hep B, Adol or Pedi 2004-03-12 Completed [facility] Dosage 00:00:00 [facility] Polio (IPV/OPV) 2004-03-12 Completed [facility] 00:00:00 [facility] DTAP 2004-03-12 Completed [facility] 00:00:00 [facility] Hep B, Adol or Pedi 2004-03-12 Completed [facility] Dosage 00:00:00 [facility] Polio (IPV/OPV) 2004-03-12 Completed [facility] 00:00:00 [facility] DTAP 2004-03-12 Completed [facility] 00:00:00 [facility] Hep B, Adol or Pedi 2004-03-12 Completed [facility] Dosage 00:00:00 [facility] Polio (IPV/OPV) 2004-03-12 Completed [facility] 00:00:00 [facility] DTAP 2004-03-12 Completed [facility] 00:00:00 [facility] Hep B, Adol or Pedi 2004-03-12 Completed [facility] Dosage 00:00:00 [facility] Polio (IPV/OPV) 2004-03-12 Completed [facility] 00:00:00 [facility] DTAP 2004-03-12 Completed [facility] 00:00:00 [facility] Hep B, Adol or Pedi 2004-03-12 Completed [facility] Dosage 00:00:00 [facility] Polio (IPV/OPV) 2004-03-12 Completed [facility] 00:00:00 [facility] DTAP 2004-03-12 Completed [facility] 00:00:00 [facility] Hep B, Adol or Pedi 2004-03-12 Completed [facility] Dosage 00:00:00 [facility] Polio (IPV/OPV) 2004-03-12 Completed [facility] 00:00:00 [facility] DTAP 2004-03-12 Completed [facility] 00:00:00 [facility] Hep B, Adol or Pedi 2004-03-12 Completed [facility] Dosage 00:00:00 [facility] Polio (IPV/OPV) 2004-03-12 Completed [facility] 00:00:00 [facility] DTAP 2004-03-12 Completed [facility] 00:00:00 [facility] Hep B, Adol or Pedi 2004-03-12 Completed [facility] Dosage 00:00:00 [facility] Polio (IPV/OPV) 2004-03-12 Completed [facility] 00:00:00 [facility] DTAP 2004-03-12 Completed [facility] 00:00:00 [facility] Hep B, Adol or Pedi 2004-03-12 Completed [facility] Dosage 00:00:00 [facility] Polio (IPV/OPV) 2004-03-12 Completed [facility] 00:00:00 [facility] DTAP 2004-03-12 Completed [facility] 00:00:00 [facility] Hep B, Adol or Pedi 2004-03-12 Completed [facility] Dosage 00:00:00 [facility] Polio (IPV/OPV) 2004-03-12 Completed [facility] 00:00:00 [facility] DTAP 2004-03-12 Completed [facility] 00:00:00 [facility] Hep B, Adol or Pedi 2004-03-12 Completed [facility] Dosage 00:00:00 [facility] Polio (IPV/OPV) 2004-03-12 Completed [facility] 00:00:00 [facility] DTAP 2004-03-12 Completed [facility] 00:00:00 [facility] Hep B, Adol or Pedi 2004-03-12 Completed [facility] Dosage 00:00:00 [facility] Polio (IPV/OPV) 2004-03-12 Completed [facility] 00:00:00 [facility] DTAP 2004-03-12 Completed [facility] 00:00:00 [facility] Hep B, Adol or Pedi 2004-03-12 Completed [facility] Dosage 00:00:00 [facility] Polio (IPV/OPV) 2004-03-12 Completed [facility] 00:00:00 [facility] DTAP 2004-03-12 Completed [facility] 00:00:00 [facility] Hep B, Adol or Pedi 2004-03-12 Completed [facility] Dosage 00:00:00 [facility] Polio (IPV/OPV) 2004-03-12 Completed [facility] 00:00:00 [facility] DTAP 2004-03-12 Completed [facility] 00:00:00 [facility] Hep B, Adol or Pedi 2004-03-12 Completed [facility] Dosage 00:00:00 [facility] Polio (IPV/OPV) 2004-03-12 Completed [facility] 00:00:00 [facility] DTAP 2004-03-12 Completed [facility] 00:00:00 [facility] Hep B, Adol or Pedi 2004-03-12 Completed [facility] Dosage 00:00:00 [facility] Polio (IPV/OPV) 2004-03-12 Completed [facility] 00:00:00 [facility] DTAP 2004-03-12 Completed [facility] 00:00:00 [facility] Hep B, Adol or Pedi 2004-03-12 Completed [facility] Dosage 00:00:00 [facility] Polio (IPV/OPV) 2004-03-12 Completed [facility] 00:00:00 [facility] DTAP 2004-03-12 Completed [facility] 00:00:00 [facility] Hep B, Adol or Pedi 2004-03-12 Completed [facility] Dosage 00:00:00 [facility] Polio (IPV/OPV) 2004-03-12 Completed [facility] 00:00:00 [facility] MMR 2004-03-11 Completed [facility] 00:00:00 [facility] Varicella 2004-03-11 Completed [facility] of (varivax)(chicken 00:00:00 [place] [facility] MMR 2004-03-11 Completed [facility] 00:00:00 [facility] Varicella 2004-03-11 Completed [facility] (varivax)(chicken 00:00:00 [place] [facility] 2004-03-11 Completed [facility] 00:00:00 [facility] Varicella 2004-03-11 Completed [facility] (varivax)(chicken 00:00:00 [place] [facility] 2004-03-11 Completed [facility] 00[facility]00:00 [facility] Varicella 2004-03-11 Completed [facility] (varivax)(chicken 00:00:00 [place] [facility]ox[facility] 2004-03-11 Completed [facility] 00[facility]00:00 [facility] Varicella 2004-03-11 Completed [facility] (varivax)(chicken 00:00:00 [place] [facility] pox[facility] 2004-03-11 Completed [facility] 00[facility]00:00 [facility] Varicella 2004-03-11 Completed [facility] (varivax)(chicken 00:00:00 [place] [facility] p[facility] 2004-03-11 Completed [facility] 00[facility]00:00 [facility] Varicella 2004-03-11 Completed [facility] (varivax)(chicken 00:00:00 [place] [facility] pox[facility] 2004-03-11 Completed [facility] 00[facility]00:00 [facility] Varicella 2004-03-11 Completed [facility] (varivax)(chicken 00:00:00 [place] [facility] pox[facility] 2004-03-11 Completed [facility] 00[facility]00:00 [facility] Varicella 2004-03-11 Completed [facility] (varivax)(chicken 00:00:00 [place] [facility] pox[facility] 2004-03-11 Completed [facility] 00[facility]00:00 [facility] Varicella 2004-03-11 Completed [facility] (varivax)(chicken 00:00:00 [place] [facility]ox[facility] 2004-03-11 Completed [facility] 00[facility]00:00 [facility] Varicella 2004-03-11 Completed [facility] (varivax)(chicken 00:00:00 [place] [facility] pox[facility] MMR 2004-03-11 Completed [facility] 00:00:00 [facility] Varicella 2004-03-11 Completed [facility] (varivax)(chicken 00:00:00 [place] [facility]ox[facility] 2004-03-11 Completed [facility] 00[facility]00:00 [facility] Varicella 2004-03-11 Completed [facility] (varivax)(chicken 00:00:00 [place] [facility] pox[facility] MMR 2004-03-11 Completed [facility] 00:00:00 [facility] Varicella 2004-03-11 Completed [facility] (varivax)(chicken 00:00:00 [place] [facility]ox[facility] 2004-03-11 Completed [facility] 00[facility]00:00 [facility] Varicella 2004-03-11 Completed [facility] (varivax)(chicken 00:00:00 [place] [facility] pox[facility] 2004-03-11 Completed [facility] 00[facility]00:00 [facility] Varicella 2004-03-11 Completed [facility] (varivax)(chicken 00:00:00 [place] [facility]ox[facility] 2004-03-11 Completed [facility] 00[facility]00:00 [facility] Varicella 2004-03-11 Completed [facility] (varivax)(chicken 00:00:00 [place] [facility] pox[facility] 2004-03-11 Completed [facility] 00[facility]00:00 [facility] Varicella 2004-03-11 Completed [facility] (varivax)(chicken 00:00:00 [place] [facility] pox[facility] 2004-03-11 Completed [facility] 00[facility]00:00 [facility] Varicella 2004-03-11 Completed [facility] (varivax)(chicken 00:00:00 [place] [facility] pox[facility] 2004-03-11 Completed [facility] 00[facility]00:00 [facility] Varicella 2004-03-11 Completed [facility] (varivax)(chicken 00:00:00 [place] [facility] p[facility] 2004-03-11 Completed [facility] 00[facility]00:00 [facility] Varicella 2004-03-11 Completed [facility] (varivax)(chicken 00:00:00 [place] [facility] 2004-03-11 Completed [facility] 00:00:00 [facility] Varicella 2004-03-11 Completed [facility] (varivax)(chicken 00:00:00 [place] [facility] HEPATITIS A 2000-02-21 Completed [facility] 00:00:00 [facility] Varicella 2000-02-21 Completed [facility] (varivax)(chicken 00:00:00 [place] [facility]ox[facility] HEPATITIS A 2000-02-21 Completed [facility] 00:00:00 [facility] Varicella 2000-02-21 Completed [facility] (varivax)(chicken 00:00:00 [place] [facility] HEPATITIS A 2000-02-21 Completed [facility] 00:00:00 [facility] Varicella 2000-02-21 Completed [facility] (varivax)(chicken 00:00:00 [place] [facility] HEPATITIS A 2000-02-21 Completed [facility] 00:00:00 [facility] Varicella 2000-02-21 Completed [facility] (varivax)(chicken 00:00:00 [place] [facility] HEPATITIS A 2000-02-21 Completed [facility] 00:00:00 [facility] Varicella 2000-02-21 Completed [facility] (varivax)(chicken 00:00:00 [place] [facility] HEPATITIS A 2000-02-21 Completed [facility] 00:00:00 [facility] Varicella 2000-02-21 Completed [facility] (varivax)(chicken 00:00:00 [place] [facility] HEPATITIS A 2000-02-21 Completed [facility] 00:00:00 [facility] Varicella 2000-02-21 Completed [facility] (varivax)(chicken 00:00:00 [place] [facility] HEPATITIS A 2000-02-21 Completed [facility] 00:00:00 [facility] Varicella 2000-02-21 Completed [facility] (varivax)(chicken 00:00:00 [place] [facility] HEPATITIS A 2000-02-21 Completed [facility] 00:00:00 [facility] Varicella 2000-02-21 Completed [facility] (varivax)(chicken 00:00:00 [place] [facility] HEPATITIS A 2000-02-21 Completed [facility] 00:00:00 [facility] Varicella 2000-02-21 Completed [facility] (varivax)(chicken 00:00:00 [place] [facility] HEPATITIS A 2000-02-21 Completed [facility] 00:00:00 [facility] Varicella 2000-02-21 Completed [facility] (varivax)(chicken 00:00:00 [place] [facility] HEPATITIS A 2000-02-21 Completed [facility] 00[facility]00:00 [facility] Varicella 2000-02-21 Completed University of (varivax)(chicken 00:00:00 [place] [facility] HEPATITIS A 2000-02-21 Completed University of 00:00:00 [facility] Varicella 2000-02-21 Completed [facility] (varivax)(chicken 00:00:00 [place] [facility] HEPATITIS A 2000-02-21 Completed University of 00:00:00 [facility] Varicella 2000-02-21 Completed [facility] (varivax)(chicken 00:00:00 [place] [facility] HEPATITIS A 2000-02-21 Completed University of 00:00:00 [facility] Varicella 2000-02-21 Completed [facility] (varivax)(chicken 00:00:00 [place] [facility] HEPATITIS A 2000-02-21 Completed University of 00:00:00 [facility] Varicella 2000-02-21 Completed [facility] (varivax)(chicken 00:00:00 [place] [facility] HEPATITIS A 2000-02-21 Completed University of 00:00:00 [facility] Varicella 2000-02-21 Completed [facility] (varivax)(chicken 00:00:00 [place] [facility] HEPATITIS A 2000-02-21 Completed University of 00:00:00 [facility] Varicella 2000-02-21 Completed [facility] (varivax)(chicken 00:00:00 [place] [facility] HEPATITIS A 2000-02-21 Completed University of 00:00:00 [facility] Varicella 2000-02-21 Completed [facility] (varivax)(chicken 00:00:00 [place] [facility] HEPATITIS A 2000-02-21 Completed [facility] of 00:00:00 [facility] Varicella 2000-02-21 Completed [facility] (varivax)(chicken 00:00:00 [place] [facility] HEPATITIS A 2000-02-21 Completed [facility] of 00:00:00 [facility] Varicella 2000-02-21 Completed [facility] (varivax)(chicken 00:00:00 [place] [facility] HEPATITIS A 2000-02-21 Completed [facility] 00:00:00 [place] [facility] Varicella 2000-02-21 Completed [facility] of (varivax)(chicken 00:00:00 [...] (varivax)(chicken 00:00:00 [place] [facility] Vital Signs Vital Name Observation Time Observation Value Comments Source Systolic blood 2022-07-03 22:50:00 112 mm[Hg] Univer sity of [facility] Diastolic blood 2022-07-03 22:50:00 69 mm[Hg] Unive rsity [facility] Heart rate 2022-07-03 22:50:00 87 /min [facility] Body temperature 2022-07-03 22:50:00 37.17 Alayna [facility] Body height 2022-07-03 22:50:00 162.6 cm [facility] Body weight 2022-07-03 22:50:00 63.504 kg [facility] BMI 2022-07-03 22:50:00 24.03 kg/m2 [facility] Oxygen saturation in 2022-07-03 22:50:00 99 /min [facility] Arterial blood by [facility] Pulse oximetry Branch Systolic blood 2022-05-30 21:00:00 113 mm[Hg] Univer sity of [facility] Diastolic blood 2022-05-30 21:00:00 73 mm[Hg] Unive rsity [facility] Heart rate 2022-05-30 21:00:00 87 /min [facility] Body temperature 2022-05-30 21:00:00 36.67 Alayna [facility] rate 2022-05-30 21:00:00 16 /min [facility] Oxygen saturation in 2022-05-30 21:00:00 99 /min University of Arterial blood by [facility] Pulse oximetry Branch Body height 2022-05-30 18:05:00 162.[address] [facility] Body weight 2022-05-30 18:05:00 [address] [facility] BMI 2022-05-30 18:05:00 23.52 kg/m2 Universi ty of [facility] Systolic blood 2022-05-26 23:10:00 114 mm[Hg] Univer sity of pressure [facility] Diastolic blood 2022-05-26 23:10:00 74 mm[Hg] Unive rsity of pressure [facility] Heart rate 2022-05-26 23:10:00 78 /min Universi ty [facility] Body temperature 2022-05-26 23:10:00 36.67 Alayna [facility] Respiratory rate 2022-05-26 23:10:00 16 /min [facility] Body height 2022-05-26 23:10:00 162.[address] [facility] Body weight 2022-05-26 23:10:00 62.46 kg Universi ty [facility] BMI 2022-05-26 23:10:00 23.64 kg/m2 Universi ty [facility] Oxygen saturation in 2022-05-26 23:10:00 100 /min University of Arterial blood by [facility] Pulse oximetry [place] Procedures Procedure Date / Time Performing Clinician Source Performed POCT URINALYSIS 2022-07-03 23:17:00 Tien Mancuso [place] o f [facility] POCT TEST 2022-07-03 23:12:00 [facility](AGE 2022-05-30 21:56:00 Marilee Kurtz [facility] >30DAYS) [facility] POCT GLUCOSE (AUTOMATED) 2022-05-30 21:55:00 [facility] (IMMUNOASSAY) 2022-05-30 20:25:00 [facility] REF[facility] POCT TEST 2022-05-30 18:24:00 [facility] 2022-05-30 18:21:[address] [facility] [place] [place] COMP. METABOLIC PANEL 2022-05-30 18:21:00 Marilee Kurtz [facility] ([id number]) [facility] ACUTE CARE VENOUS BLOOD 2022-05-30 18:21:00 Marilee Kurtz [facility] GAS [facility] CBC WITH DIFF 2022-05-30 18:21:[address] [facility] [place] GLYCOSYLATED HEMOGLOBIN 2022-05-30 18:21:00 Marilee Kurtz [facility] (A1C) [facility] URINALYSIS 2022-05-30 18:21:[address] [facility] [place] POCT GLUCOSE (AUTOMATED) 2022-05-30 18:06:00 Marilee Kurtz Un [facility] CONSENT/REFUSAL FOR 2022-05-30 17:59:12 Doctor Unassigned, No Un [facility] DIAGNOSIS AND TREATMENT [facility] ASSIGNMENT OF BENEFITS 2022-05-26 23:04:21 Doctor Unassigned, No [facility] DME/SUPPLY JUSTIFICATION 2022-04-08 05:01:00 Doctor Unassigned, No [facility] DME/SUPPLY JUSTIFICATION 2022-03-24 05:01:00 Doctor Unassigned, No [facility] Encounters Start End Encounter Admission Attending Care Care Encounter Source Date/Time Date/Time Type Type Clinicians Facility Department ID 2021-06-03 Emergency [facility] [id number] Univers 15:14:34 ity [facility] 2021-06-03 Emergency [facility] [id number] Univers 12:37:06 ity [facility] 2021-06-03 Emergency [facility] [id number] Univers 10:07:04 ity [facility] 2021-06-03 Emergency [facility] [id number] Univers 02:22:48 ity [facility] 2021-06-02 Emergency [facility] [id number] Univers 12:07:03 ity [facility] 2021-06-02 Emergency [facility] [id number] Univers 10:34:[address] [facility] 2021-06-02 Outpatient P [facility] [id number] Univers 01:58:[address] [facility] 2021-06-02 Outpatient P [facility] [id number] Univers 00:14:[address] [facility] 2021-06-01 Outpatient P [facility] [id number] Univers 22:21:[address] [facility] 2021-06-01 Outpatient [facility] [id number] Univers 20:51:[address] [facility] 2021-06-01 Emergency [facility] [id number] Univers 20:49:[address] [facility] 2021-06-01 Outpatient [facility] [id number] Univers 15:53:[address] [facility] 2021-06-01 Outpatient P [facility] [id number] Univers 15:31:[address] [facility] 2021-06-01 Outpatient P [facility] [id number] Univers 12:20:[address] [facility] 2021-06-01 Emergency [facility] [id number] Univers 04:48:[address] [facility] 2021-06-01 Outpatient P [facility] [id number] Univers 01:06:[address] [facility] 2021-06-01 Outpatient [facility] [id number] Univers 00:36:[address] [facility] 2021-05-31 Emergency [facility] [id number] Univers 23:01:[address] [facility] 2021-05-31 Emergency [facility] [id number] Univers 16:03:[address] [facility] 2021-05-31 Emergency [facility] [id number] Univers 00:16:[address] [facility] 2022-07-14 2022-07-14 Outpatient R AGNES JAIME [facility] [id number] Univers 13:30:00 13:30:[address] ity of [facility] 2022-07-09 2022-07-09 Outpatient R ELEANOR SEXTON [facility] [id number] Univers 15:30:00 15:30:00 ELEANOR SEXTON [facility] 2022-07-04 2022-07-04 Telephone Rafaeldonellcarrillo [facility] 1.2.840.114 [id number] Univers 00:00:00 00:00:00 [facility] HEALTH 350.1.13.10 it y of [place] 4.2.7.2.686 [place] RODERICK?BLEA [phone] [facility] [address] [place] MEDICAL OFFICE [facility] 2022-07-03 2022-07-03 Outpatient R CARLITOS [facility] [id number] Univers 16:20:00 17:24:34 TIEN cole [facility] 2022-07-03 2022-07-03 Urgent Davidsoncarrillo Tien [facility] 1.2.840.114 [id number] Univers 16:20:00 17:24:34 Care Unknown, [facility] HEALTH 350.1.13.10 ity of [place] 4.2.7.2.686 [place] RODERICK?BLEA [id number] [facility] [address] [place] MEDICAL OFFICE [facility] 2022-07-01 2022-07-01 Telephone Eleanor Sexton [facility] 1.2.348.576 [id number] Univers 00:00:00 00:00:00 HEALTH 350.1.13.10 it y of [place] 4.2.7.2.686 [place] RODERICK?BLEA [phone] [facility] [address] [place] MEDICAL OFFICE [facility] 2022-06-20 2022-06-20 [facility]orlando [facility] 1.2.840.114 [id number] Univers 00:00:00 00:00:00 [facility] 350.1.13.10 ity of [place] 4.2.7.2.686 [place] RODERICK?BLEA [phone] [facility] [address] [place] MEDICAL OFFICE [facility] 2022-06-10 2022-06-10 Telephone Eleanor Sexton [facility] 1.2.713.004 [id number] Univers 00:00:00 00:00:00 PRIMARY 350.1.13.10 it y of [place]2.[place] [phone] [facility] [address] [place] 2022-05-30 2022-05-30 Emergency X DREVER, [facility] ERT [id number] Univers 13:06:00 17:23:[address] [facility] 2022-05-30 2022-05-30 Emergency [facility] 1.2.448.609 [id number] Univers 13:06:00 17:23:00 Marilee G TWIN 350.1.13.10 [place] [id number] [facility] [address] [place] 2022-05-27 2022-05-27 Letter VIDYA Chan 1.2.840.114 [id number] Univers 00:00:00 00:00:00 (Out) Gaby ARREDONDO 350.1.13.10 it y of [facility] 4.2.7.2.[id number] [facility] [address] [place] 2022-05-26 2022-05-26 Urgent Sammie Velazquez [facility] 1.2.840 .114 [id number] Univers 18:20:00 18:40:00 Care Unknown, Attending HEALTH 350.1.13.10 ity of [place] 4.2.7.2.686 [place] RODERICK?BLEA [id number] [address] MEDICAL OFFICE BUILDING 2022-05-26 2022-05-26 Outpatient R CAROLINE [facility] [id number] Univers 18:20:00 18:27:37 SAMMIE cole o f [facility] 2022-05-26 2022-05-26 Orders Doctor DASILVA 1.2.840.114 [id number] Univers 00:00:00 00:00:00 Only Unassigned, MARIA ELENA 350.1.13.10 ity of [place] [facility] 4.2.7.2.[phone] [facility] [address] [place] 2022-05-26 2022-05-26 Letter [facility] 1.2.840.114 [id number] Univers 00:00:00 00:00:00 (Out) Sammie Angeles [facility] 350.1.13.10 ity of [place] 4.2.7.2.686 [place] RODERICK?BLEA [id number] [address] MEDICAL OFFICE [facility] 2022-05-16 2022-05-16 [facility] [id number] Univers 09:30:00 09:30:00 RAUL cole [facility] 2022-05-08 2022-05-08 Patient Eleanor Sexton [facility] 1.2.840.114 [id number] Univers 00:00:00 00:00:00 Secure Msg PRIMARY 350.1.13.10 ity of [facility] 4.2.7.2.[place] [id number] [facility] [address] [place] 2022-05-05 2022-05-05 Telephone Eleanor Sexton [facility] 1.2.416.685 [id number] Univers 00:00:00 00:00:00 HEALTH 350.1.13.10 it y of [place] 4.2.7.2.686 [place] RODERICK?BLEA [id number] [facility] [address] [facility] OFFICE [facility] 2022-04-25 2022-04-25 Outpatient [facility] [id number] Univers 16:00:00 16:00:00 RAUL edelshira [facility] 2022-04-21 2022-04-21 Outpatient Rosalva [facility] [id number] Univers 09:30:00 09:30:00 RAUL shira [facility] 2022-04-15 2022-04-15 [facility] [id number] Univers 12:12:00 15:19:00 JAMIE cole [facility] 2022-04-15 2022-04-15 Emergency [facility] 1.2.840.114 [id number] Univers 12:12:00 15:19:00 Jamie [place] 350.1.13.10 i ty [place].2.7.2.[place] [facility] [id number] [facility] [address] [place] 2022-04-12 2022-04-12 Reforlando [facility] 1.2.840.114 [id number] Univers 00:00:00 00:00:00 [place] HEALTH 350.1.13.10 ity of [place] 4.2.7.2.686 [place] RODERICK?BLEA [phone] Nd luisana [address] MEDICAL OFFICE BUILDING 2022-04-11 2022-04-11 Outpatient R MANISH [facility] [id number] Univers 09:00:00 09:00:00 RAUL cole [facility] 2022-04-11 2022-04-11 Outpatient R MANISH [facility] [id number] Univers 09:00:00 09:00:00 RAULGUS cole [facility] 2022-04-10 2022-04-10 Refill Carlie [facility] 1.2.840.114 [id number] Univers 00:00:00 00:00:00 PRIMARY 350.1.13.10 it [place]2.[place] [id number] [address] 2022-04-09 2022-04-09 Outpatient R CARLIEELEANOR [facility] [id number] Univers 09:00:00 09:00:00 CARLIEELEANOR [facility] 2022-04-09 2022-04-09 Outpatient R CARLIE PAUL [facility] [id number] Univers 09:00:00 09:00:00 CARLIEELEANOR [facility] 2022-04-09 2022-04-09 Outpatient R CARLIE PAUL [facility] [id number] Univers 09:00:00 09:00:00 CARLIE ELEANOR cole [facility] 2022-04-09 2022-04-09 Outpatient R CARLIE PAUL [facility] [id number] Univers 09:00:00 09:00:00 CARLIEELEANOR [facility] 2022-04-08 2022-04-08 Patient Carlie [facility] 1.2.840.114 [id number] Univers 00:00:00 00:00:00 Secure Msg PRIMARY 350.1.13.10 it[place] [id number] [address] 2022-04-08 2022-04-08 Orders Doctor DASILVA 1.2.840.114 [id number] Univers 00:00:00 00:00:00 Only Unassigned, MARIA ELENA 350.1.13.10 ity of [place] [facility] 4.2.7.2.686 [place] as [phone] [address] 2022-03-24 2022-03-24 Telephone Carlie [facility] 1.2.554.144 [id number] Univers 00:00:00 00:00:00 HEALTH 350.1.13.10 it y of [place] 4.2.7.2.686 [place] RODERICK?BLEA [phone] [facility] [address] [place] MEDICAL OFFICE [facility] 2022-03-24 2022-03-24 Orders Doctor VIDYA 1.2.840.114 [id number] Univers 00:00:00 00:00:00 Only Unassigned, MARIA ELENA 350.1.13.10 ity of [place] [facility] 4.2.7.2.686 [place] [id number] [address] 2022-03-21 2022-03-21 Telephone Eleanor Sexton [facility] 1.2.815.567 [id number] Univers 00:00:00 00:00:00 PRIMARY 350.1.13.10 it y of [place]2.[place] [id number] [address] 2022-03-20 2022-03-20 Patient Doctor [facility] 1.2.840.114 [id number] Univers 00:00:00 00:00:00 Secure Msg Unassigned, HEALTH 350.1.13.10 ity of [place] [facility] 4.2.7.2.686 [place] RODERICK?BLEA [id number] [facility] [address] [place] MEDICAL OFFICE [facility] 2022-03-19 2022-03-19 Outpatient R MOHINDRE [facility] [id number] Univers 13:00:00 13:00:[address] [facility] 2022-03-18 2022-03-18 Telephone [facility] 1.2.826.907 [id number] Univers 00:00:00 00:00:00 Jacqui HEALTH 350.1.13.10 ity of [place] 4.2.7.2.686 [place] RODERICK?BLEA [id number] Nd luisana CUNHA [address] [place] MEDICAL OFFICE [facility] 2022-03-18 2022-03-18 Patient Doctor [facility] 1.2.840.114 [id number] Univers 00:00:00 00:00:00 Secure Msg Unassigned, [facility] 350.1.13.10 ity of [place] [facility] 4.2.7.2.686 [place] RODERICK?BLEA [id number] [facility] MELVIN [address] [place] MEDICAL OFFICE [facility] 2022-03-17 2022-03-17 Outpatient R CHIP, [facility] [id number] Univers 08:40:00 09:07:30 [facility] 2022-03-17 2022-03-17 Office [facility] 1.2.840.114 [id number] Univers 08:40:00 09:07:30 Visit [facility] 350.1.13.10 ity of [place] 4.2.7.2.686 [place] RODERICK?BLEA [id number] [facility] [address] [facility] OFFICE [facility] 2022-03-13 2022-03-13 Outpatient R CARLITOS, [facility] [id number] Univers 19:40:00 20:20:46 TIEN [facility] 2022-03-13 2022-03-13 Urgent HaroonBill [facility] 1.2.840.114 [id number] Univers 19:40:00 20:20:46 [facility] 350.1.13.10 ity of [place] 4.2.7.2.686 [place] RODERICK?BLEA [id number] [facility] [address] [place] MEDICAL OFFICE [facility] 2022-03-13 2022-03-13 Outpatient R CARLITOS, [facility] [id number] Univers 19:40:00 20:20:46 TIEN [facility] 2022-03-12 2022-03-12 Outpatient R MOHINDER, [facility] [id number] Univers 13:00:00 13:00:00 [facility] 2022-[facility]-06 2022-03-06 Outpatient R MOHINDER, [facility] [id number] Univers 13:00:00 13:00:[address] [facility] 2022-02-28 2022-02-28 Telephone Manish [facility] 1.2.280.861 [id number] Univers 00:00:00 00:00:00 Raul HEALTH 350.1.13.10 it y of [place] 4.2.7.2.686 [place] RODERICK?BLEA [id number] [facility] [address] [place] MEDICAL OFFICE [facility] 2022-02-27 2022-02-27 Telephone Lore DASILVA 1.2.343.476 [id number] Univers 00:00:00 00:00:00 MARIA ELENA Mccurdy 350.1.13.10 ity of [facility] 4.2.7.2.686 [place] [phone] [address] 2022-02-27 2022-02-27 Patient Eleanor Sexton [facility] 1.2.840.114 [id number] Univers 00:00:00 00:00:00 Secure Msg PRIMARY 350.1.13.10 [place] of [place].2.[place] [id number] [facility] [address] [place] 2022-02-26 2022-02-26 Laboratory Only, Ang Db Test [facility] 1.2.8 40.114 [id number] Univers 13:30:00 13:45:00 Only Geo Cedeño [facility] 350.1.13.10 ity of [place] 4.2.7.2.686 [place] RODERICK?BLEA [id number] [facility] [address] [place] MEDICAL OFFICE [facility] 2022-02-26 2022-02-26 Outpatient R HEIDI [facility] [id number] Univers 13:30:00 13:30:00 GEO ity [facility] 2022-02-23 2022-02-23 Telephone Eleanor Sexton [facility] 1.2.744.118 [id number] Univers 00:00:00 00:00:00 HEALTH 350.1.13.10 it y of [place] 4.2.7.2.686 [place] RODERICK?BLEA [phone] [facility] [address] [place] MEDICAL OFFICE [facility] 2022-02-192022-02-19 Telephone [place]nette tinajero Carrillo DASILVA 1.2.840.114 [id number] Univers 00:00:00 00:00:00 MARIA ELENA 350.1.13.10 it y of HOSPITAL 4.2.7.2.[phone] [facility] [address] [place] 2022-02-18 2022-02-18 Laboratory Only, Ang Db Test [facility] 1.2.8 40.114 [id number] Univers 19:30:00 19:45:00 Only Dustin Nichols [facility] 350.1.13.10 ity of [place] 4.2.7.2.686 [place] RODERICK?BLEA [phone] Nd luisana MELVINEY [address] [place] MEDICAL OFFICE BUILDING 2022-02-18 2022-02-18 Outpatient R SIMONE [facility] [id number] Univers 19:30:00 19:30:00 DUSTIN ity o f [facility] 2022-02-18 2022-02-18 [facility] [id number] Univers 19:30:00 19:30:00 DUSTIN edely o [facility] 2022-02-17 2022-02-17 Ancillary Abraham Marcos [facility] 1.2.840. 114 [id number] Univers 09:15:00 10:15:00 Visit Marcella Casey 350.1.13.10 it[place] of [place] 4.2.7.2.[place] PROF[place] [id number] Nd luisana [facility] 179 [facility] 2022-02-17 2022-02-17 Outpatient R JACINTO [facility] [id number] Univers 09:15:00 09:15:00 MARCELLA cole [facility] 2022-02-17 2022-02-17 Orders Doctor VIDYA 1.2.840.114 [id number] Univers 00:00:00 00:00:00 Only Unassigned, MARIA ELENA 350.1.13.10 ity of [place] [facility] 4.2.7.2.[phone] [facility] [address] [place] 2022-02-14 2022-02-14 Out[facility] [id number] Univers 19:40:00 19:40:00 SAMARAIA ity [facility] 2022-02-07 2022-02-07 Outpatient R FAY [facility] [id number] Univers 13:32:04 23:59:00 JOHANNA ity [facility] 2022-02-07 2022-02-07 [facility] [id number] Univers 13:32:04 23:59:00 JOHANNA ity [facility] 2022-02-07 2022-02-07 [facility] 1.2.840.114 [id number] Univers 13:32:04 23:59:00 Encounter Johanna PRIMARY [id number] [place] [phone] [facility] [address] [place] 2022-02-07 2022-02-07 Office [facility] [id number] Univers 13:20:00 14:22:34 Visit Johanna PRIMARY 350.1.13.10 it y [place] [id number] [place] dical [address] [place] 2022-02-07 2022-02-07 [facility] [id number] Univers 13:20:00 14:22:34 JOHANNA ity [facility] 2022-02-05 2022-02-05 Office Eleanor Sexton [facility] 1.2.840.114 [id number] Univers 14:30:00 16:45:20 Visit HEALTH 350.1.13.10 it y of [place] 4.2.7.2.686 [place] RODERICK?BLEA [id number] N[place] dical KNEY [address] [place] MEDICAL OFFICE BUILDING 2022-02-05 2022-02-05 Outpatient R ELEANOR SEXTON [facility] [id number] Univers 14:30:00 16:45:20 ELEANOR SEXTON ity [facility] 2022-02-05 2022-02-05 Outpatient R ELEANOR SEXTON [facility] [id number] Univers 14:30:00 14:30:00 ELEANOR SEXTON itshira of [facility] [place] 2022-01-29 2022-01-29 [facility] 1.2.840.114 [id number] Univers 00:00:00 00:00:00 Management Sonal AVENDAÑO 350.1.13.10 ity of PEDIATRIC 4.2.7.2.686 [facility] [id number] [facility] [address] [place] 2022-01-29 2022-01-29 [facility] 1.2.840.114 [id number] Univers 00:00:00 00:00:00 Management Sonal AVENDAÑO 350.1.13.10 ity of PEDIATRIC 4.2.7.2.686 [facility] [phone] [address] 2022-01-27 2022-01-27 Emergency [facility] [id number] Univers 17:09:00 18:50:00 RADHA cole [facility] 2022-01-27 2022-01-27 Emergency [facility] 1.2.840.114 [id number] Univers 17:09:00 18:50:00 Radha MURCIA 350.1.13.10 ity of [place] 4.2.7.2.686 [facility] [id number] [facility] [address] [place] 2022-01-27 2022-01-27 Emergency X [facility] ERT [id number] Univers 17:09:00 18:50:00 RADHA cole [facility] 2022-01-27 2022-01-27 Outpatient R SONAL CHAO [facility] B [id number] Univers 14:00:00 15:19:34 SONAL CHAO [facility] 2022-01-27 2022-01-27 Office [facility] 1.2.840.114 [id number] Univers 14:00:00 15:19:34 Visit Sonal AVENDAÑO 350.1.13.10 it y of WOMEN'S 4.2.7.2.686 [facility] [id number] [facility] [address] 2022-01-16 2022-01-16 Shelton Monreal [facility] 1.2.840.114 [id number] Univers 00:00:00 00:00:00 Hopkins A HEALTH 350.1.13.10 ity of SPECIALTY 4.2.7.2.686 Te matthew [facility] - [id number] [facility] [address] [place] 2022-01-14 2022-01-14 Outpatient R AKINARGELIA, [facility] [id number] Univers 14:45:00 14:45:00 [address]VAL[address] ity o f [facility] 2022-01-14 2022-01-14 Telephone [facility] 1.2.247.767 [id number] Univers 00:00:00 00:00:00 Latrice MURCIA 350.1.13.10 ity of [place] 4.2.7.2.686 [place] anastasiya CADETESSIO [phone] Nd luisana MORATAYA [address] BUILDING 2022-01-08 2022-01-08 Outpatient R MALIA, [facility] [id number] Univers 09:00:00 09:00:00 ROSHUNDA ity o [facility] 2022-01-08 2022-01-08 Outpatient R MALIA, [facility] [id number] Univers 09:00:00 09:00:00 ROSHUNDA ity o [facility] 2022-01-08 2022-01-08 Outpatient R MALIA, [facility] [id number] Univers 09:00:00 09:00:00 ROSNDA ity o [facility] 2022-01-01 2022-01-01 Outpatient R ELEANOR SEXTON [facility] [id number] Univers 08:30:00 08:30:00 ELEANOR SEXTON ity [facility] 2021-12-23 2021-12-23 Orthotics Technician Lab, Ang - Db [facility] 1.2.840.1 14 [id number] Univers 12:00:00 12:15:00 Visit Raul Hammond [employer] 350.1.13.10 ity of [place] 4.2.7.2.686 Scot as RODERICK?BLEA [id number] Nd dical OLEGARIOEY [address] [place] MEDICAL OFFICE BUILDING 2021-12-23 2021-12-23 Outpatient R MANISH [facility] [id number] Univers 11:30:00 12:02:04 RAUL cole [facility] 2021-12-23 2021-12-23 Office [facility] 1.2.840.114 [id number] Univers 11:30:00 12:02:04 Visit [facility] 350.1.13.10 it [facility] 4.2.7.2.686 [place] as RODERICK?BLEA [id number] [address] MEDICAL OFFICE [facility] 2021-12-23 2021-12-23 Outpatient Rosalva HAMMOND [facility] [id number] Univers 11:30:00 12:02:04 RAUL cole [facility] 2021-12-19 2021-12-19 Outpatient Rosalva [facility] [id number] Univers 09:00:00 10:06:45 [facility]le o f [facility] 2021-12-19 2021-12-19 Office [facility] 1.2.840.114 [id number] Univers 09:00:00 10:06:45 Visit [facility] COILED COIL INSPECTOR 350.1.13.10 [facility] 4.2.7.2.686 Scot as MATERNAL [phone] [facility] ical & CHILD [address] [place] [address] 2021-12-18 2021-12-18 Outpatient Rosalva EDUARDO [facility] [id number] Univers 11:00:00 11:00:00 SENDGIOVANNY cole [facility] 2021-12-05 2021-12-05 Outpatient Rosalva LEE [facility] [id number] Univers 15:00:00 15:00:00 JUNITO cole [facility] 2021-12-05 2021-12-05 Outpatient Rosalva LEE [facility] [id number] Univers 15:00:00 15:00:00 JUNITO cole [facility] 2021-12-04 2021-12-04 Outpatient COREY QUINTEROS [facility] [id number] Univers 00:00:00 00:00:00 COREY DURAN [facility] 2021-12-04 2021-12-04 Refill [facility] 1.2.840.114 [id number] Univers 00:00:00 00:00:00 Pat S HEALTH 350.1.13.10 it y of [place] 4.2.7.2.686 [place] as RODERICK?BLEA [phone] Nd luisana CUNHA 198 [facility] OFFICE [facility] 2021-12-02 2021-12-02 Telephone [facility] 1.2.212.433 [id number] Univers 00:00:00 00:00:00 Pat S HEALTH 350.1.13.10 it y of [place] 4.2.7.2.686 [place] as RODERICK?BLEA [phone] Nd luisana [address] OFFICE [facility] 2021-11-30 2021-11-30 Patient Doctor VIDYA 1.2.840.114 [id number] Univers 00:00:00 00:00:00 Secure Msg Unassigned, MARIA ELENA 350.1.13.10 ity of [facility] 4.2.7.2.686 [place] as [id number] [address] 2021-11-28 2021-11-28 Office [facility] 1.2.840.114 [id number] Univers 08:30:00 08:45:00 Visit Pat S HEALTH 350.1.13.10 it y of [place] 4.2.7.2.686 [place] as RODERICK?BLEA [id number] Nd luisana [address] 2021-11-28 2021-11-28 Outpatient [facility] [id number] Univers 08:30:00 08:30:00 [facility] 2021-11-28 2021-11-28 Outpatient R [facility] [id number] Univers 08:30:00 08:30:00 PAT [facility] 2021-11-28 2021-11-28 Telephone [facility] 1.2.705.405 [id number] Univers 00:00:00 00:00:00 Pat S HEALTH 350.1.13.10 it y of [place] 4.2.7.2.686 [place] as RODERICK?BLEA [id number] Nd dickailey CUNHA 198 [facility] OFFICE [facility] 2021-11-25 2021-11-25 Outpatient R COREY DURAN [facility] [id number] Univers 15:40:00 16:20:31 COREY DURAN [facility] 2021-11-25 2021-11-25 Office Shyam [facility] 1.2.840.114 [id number] Univers 15:40:00 16:20:31 Visit Corey [facility] 350.1.13.10 ity of [place] 4.2.7.2.686 [place] as RODERICK?BLEA [phone] Nd luisana CUNHA 092 [facility] OFFICE [facility] 2021-11-25 2021-11-25 Outpatient R COREY DURAN [facility] [id number] Univers 15:40:00 15:40:00 COREY DURAN [facility] 2021-11-25 2021-11-25 Outpatient R ELEANOR SEXTON [facility] [id number] Univers 10:00:00 11:17:41 ELEANOR SEXTON [facility] 2021-11-25 2021-11-25 Office Eleanor Sexton [facility] 1.2.840.114 [id number] Univers 10:00:00 11:17:41 Visit [facility] 350.1.13.10 it y [facility] 4.2.7.2.686 [place] as RODERICK?BLEA [phone] Nd alannahkailey CUNHA [address] [facility] OFFICE [facility] 2021-11-22 2021-11-22 Outpatient R ALESHA [facility] [id number] Univers 15:12:16 23:59:00 SENDIL [facility] 2021-11-22 2021-11-22 Outpatient R ALESHA [facility] [id number] Univers 00:00:00 00:00:00 SENDIL [facility] 2021-11-21 2021-11-21 Orthotics Technician Lab, Ang - Db [facility] 1.2.840.1 14 [id number] Univers 16:00:00 16:22:57 Visit Pat Pozo [facility] 350.1.13.10 ity of [facility] 4.2.7.2.686 [place] as RODERICK?BLEA [phone] Nd luisana CUNHA 353 [facility] OFFICE [facility] 2021-11-21 2021-11-21 Outpatient Rosalva POZO [facility] [id number] Univers 16:00:00 16:00:00 [facility] 2021-11-21 2021-11-21 Office [facility] 1.2.840.114 [id number] Univers 15:30:00 16:00:00 Visit [facility] 350.1.13.10 it y of [place] 4.2.7.2.686 [place] as RODERICK?BLEA [id number] Nd luisana [facility] [address] [facility] OFFICE [facility] 2021-11-21 2021-11-21 Outpatient Rosalva POZO [facility] [id number] Univers 15:30:00 15:47:08 [facility] 2021-11-21 2021-11-21 Outpatient Rosalva POZO [facility] [id number] Univers 15:30:00 15:47:08 [facility] 2021-11-21 2021-11-21 Telephone [facility] 1.2.768.170 [id number] Univers 00:00:00 00:00:00 Latrice MURCIA 350.1.13.10 ity of [facility] 4.2.7.2.686 [place] PROF[place] [id number] [address] 2021-11-21 2021-11-21 Transition MACI Miller 1.2.840.114 [id number] Univers 00:00:00 00:00:00 of Care Kiley BARROW 350.1.13.10 i ty of [place]2.7.2.686 [place] [id number] [address] 2021-11-21 2021-11-21 Telephone [facility] 1.2.930.711 [id number] Univers 00:00:00 00:00:00 Latrice MURCIA 350.1.13.10 ity of [facility] 4.2.7.2.686 [place] [phone] Me dical NAL 059 [facility] 2021-11-18 2021-11-20 Inpatient X [facility] AMALIA [id number] Univers 21:35:00 15:25:00 [facility] 2021-11-18 2021-11-20 [facility] Sindymsabdullahi [facility] 1.2.840. 114 [id number] Univers 21:35:00 15:25:00 Encounter DevantegelypavithraAbraham [place] 350.1.13.10 [facility] 4.2.7.2.686 [facility] [id number] [facility] [address] [place] 2021-11-18 2021-11-20 Inpatient X [facility] AMALIA [id number] Univers 21:35:00 15:25:00 [facility] 2021-11-14 2021-11-14 [facility] 1.2.840.114 [id number] Univers 17:59:51 23:59:00 Encounter [facility] 350.1.13.10 [facility] 4.2.7.2.686 [place] as RODERICK?BLEA [id number] Nd alannahkailey CUNHA [address] [place] MEDICAL OFFICE [facility] 2021-11-14 2021-11-14 Outpatient R CARLITOS [facility] [id number] Univers 17:40:00 18:41:58 [facility] 2021-11-14 2021-11-14 Urgent Haroon [facility] 1.2.840.114 [id number] Univers 17:40:00 18:41:58 Care [facility] 350.1.13.10 [facility] 4.2.7.2.686 [place] as RODERICK?BLEA [phone] Nd alannahkailey CUNHA [address] [place] MEDICAL OFFICE [facility] 2021-11-11 2021-11-11 Outpatient R ALESHA [facility] [id number] Univers 00:00:00 00:00:00 SENDIL [facility] 2021-11-11 2021-11-11 Patient Doctor VIDYA 1.2.840.114 [id number] Univers 00:00:00 00:00:00 Secure Msg Unassigned, MARAI ELENA 350.1.13.10 ity of [facility] 4.2.7.2.686 [place] as [id number] [address] 2021-11-08 2021-11-08 Outpatient R ALESHA [facility] [id number] Univers 16:00:00 23:59:00 SENDIL ity [facility] 2021-11-08 2021-11-08 Outpatient Rosalva [facility] [id number] Univers 16:00:00 23:59:00 SENDIL ity [facility] 2021-11-06 2021-11-06 Telephone [facility] 1.2.031.339 [id number] Univers 00:00:00 00:00:00 Maritza Tinajero [facility] 350.1.13.10 i ty of [place] 4.2.7.2.686 [place] as RODERICK?BLEA [id number] Nd luisana MELVINEY [address] [place] MEDICAL OFFICE [facility] 2021-11-04 2021-11-04 Outpatient [facility] [id number] Univers 10:00:00 11:00:33 SENDIL ity [facility] 2021-11-04 2021-11-04 Outpatient Rosalva [facility] [id number] Univers 10:00:00 11:00:33 [facility] 2021-11-04 2021-11-04 [facility] 1.2.840.114 [id number] Univers 10:00:00 11:00:33 Visit Sendil Clare MURCIA 350.1.13.10 ity [facility] 4.2.7.2.686 [place] [id number] Nd luisana NAL 059 [facility] 2021-11-01 2021-11-01 Outpatient Rosalva [facility] [id number] Univers 15:28:39 23:59:00 MARITZA ity [facility] 2021-11-01 2021-11-01 [facility] 1.2.840.114 [id number] Univers 15:28:39 23:59:00 Encounter Maritza MURCIA 350.1.13.10 ity of [place] 4.2.7.2.686 [facility] [id number] [address] [place] 2021-11-01 2021-11-01 Hospital [facility] 1.2.840.114 [id number] Univers 15:28:26 23:59:00 Encounter Maritza ALEMANALICE 350.1.13.10 ity of [place] 4.2.7.2.686 [facility] [id number] [facility] [address] [place] 2021-11-01 2021-11-01 Outpatient Rosalva [facility] [id number] Univers 15:00:00 15:15:12 RAUL hollingsworthshira [facility] 2021-11-01 2021-11-01 Orthotics Technician Lab, Ang - [facility] 1.2.840.1 14 [id number] Univers 15:00:00 15:15:00 Visit Raul Hammond 350.1.13.10 ity of [place] 4.2.7.2.686 [place] as RODERICK?BLEA [id number] [facility] [address] [place] MEDICAL OFFICE BUILDING 2021-11-01 2021-11-01 Outpatient Rosalva [facility] [id number] Univers 15:00:00 15:00:00 RAUL edelshira [facility] 2021-11-01 2021-11-01 Office [facility] 1.2.840.114 [id number] Univers 14:00:00 14:30:00 Visit Maritza CARVER 350.1.13.10 i ty of [place] 4.2.7.2.686 [place] as RODERICK?BLEA [phone] [facility] [address] [place] MEDICAL OFFICE BUILDING 2021-11-01 2021-11-01 Orders Doctor VIDYA 1.2.840.114 [id number] Univers 00:00:00 00:00:00 Only Unassigned, MARIA ELENA 350.1.13.10 ity of [place] [facility] 4.2.7.2.[phone] [facility] [address] [place] 2021-10-31 2021-10-31 Outpatient Rosalva [facility] [id number] Univers 08:00:00 08:00:00 RAUL cole [facility] 2021-10-31 2021-10-31 Outpatient R MANISH [facility] [id number] Univers 08:00:00 08:00:00 RAUL cole [facility] 2021-10-29 2021-10-29 Outpatient R MANISH [facility] [id number] Univers 16:00:00 16:00:00 RAUL cole [facility] 2021-10-25 2021-10-25 Outpatient R EUFEMIA [facility] [id number] Univers 14:15:00 14:51:16 [facility] ity [facility] 2021-10-25 2021-10-25 Office Eufemia [facility] 1.2.840.114 [id number] Univers 14:15:00 14:51:16 Visit [facility] 350.1.13.10 it y of [place] 4.2.7.2.686 [facility] [phone] [address] 2021-10-21 2021-10-21 Outpatient R COREY DURAN [facility] [id number] Univers 11:30:00 11:30:00 COREY DURAN kelsey [facility] 2021-10-21 2021-10-21 Outpatient R COREY DURAN [facility] [id number] Univers 11:30:00 11:30:00 SHYAMCOREY CAMERON kelsey [facility] 2021-09-24 2021-09-24 Outpatient R [facility] [id number] Univers 11:00:00 11:00:00 ity [facility] 2021-09-24 2021-09-24 Outpatient R [facility] [id number] Univers 11:00:00 11:00:00 ity [facility] 2021-09-24 2021-09-24 Outpatient R JUANA [facility] [id number] Univers 11:00:00 11:00:00 SENIA ity [facility] 2021-09-19 2021-09-19 Outpatient R [facility] [id number] Univers 10:00:00 10:00:00 ity [facility] 2021-09-18 2021-09-18 Outpatient R AGNES JAIME [facility] [id number] Univers 14:00:00 14:41:25 AGNES JAIME shira [facility] 2021-09-18 2021-09-18 Office Tiana [facility] 1.2.840.114 [id number] Univers 14:00:00 14:41:25 [facility] 350.1.13.10 it y of [place] 4.2.7.2.686 [facility] [id number] [facility] [address] [place] 2021-09-18 2021-09-18 Outpatient R AGNES JAIME [facility] [id number] Univers 14:00:00 14:00:00 AGNES JAIME [facility] 2021-09-16 2021-09-17 Emergency [facility] ERT [id number] Univers 23:55:00 02:44:00 JANE cole [facility] 2021-09-16 2021-09-17 Emergency [facility] 1.2.556.835 [id number] Univers 23:55:00 02:44:00 Jane MURCIA 350.1.13.10 ity of [place] 4.2.7.2.686 [facility] [id number] [facility] [address] [place] 2021-09-16 2021-09-17 Emergency X [facility] ERT [id number] Univers 23:55:00 02:44:00 JANE kelsey [facility] 2021-09-16 2021-09-16 Outpatient [facility] [id number] Univers 15:30:00 15:30:00 RAUL kelsey [facility] 2021-09-16 2021-09-16 Orders Doctor VIDYA 1.2.840.114 [id number] Univers 00:00:00 00:00:00 Only Unassigned, MARIA ELENA 350.1.13.10 ity of [place] [facility] 4.2.7.2.[id number] [facility] [address] 2021-09-10 2021-09-10 Kishan Hammond [facility] 1.2.566.588 [id number] Univers 00:00:00 00:00:00 Raul HEALTH 350.1.13.10 it y of [place] 4.2.7.2.686 [place] as RODERICK?BLEA [id number] [address] OFFICE [facility] 2021-09-05 2021-09-05 Orthotics Technician Lab, Ang - Db [facility] 1.2.840.1 14 [id number] Univers 14:30:00 14:45:00 Visit Raul Hammond 350.1.13.10 ity of [place] 4.2.7.2.686 Scot as RODERICK?BLEA [id number] [facility] [address] [facility] OFFICE [facility] 2021-09-05 2021-09-05 Outpatient Rosalva HAMMOND [facility] [id number] Univers 14:30:00 14:30:00 RAUL itshira [facility] 2021-09-05 2021-09-05 Outpatient [facility] [id number] Univers 13:30:00 14:23:24 RAUL itshira [facility] 2021-09-05 2021-09-05 Office [facility] 1.2.840.114 [id number] Univers 13:30:00 14:23:24 Visit Raul [facility] 350.1.13.10 it y of [place] 4.2.7.2.686 Scot as RODERICK?BLEA [id number] [address] OFFICE [facility] 2021-09-05 2021-09-05 Office [facility] 1.2.840.114 [id number] Univers 13:30:00 14:23:24 Visit Raul HEALTH 350.1.13.10 it y of [place] 4.2.7.2.686 Scot as RODERICK?BLEA [id number] [address] OFFICE [facility] 2021-09-05 2021-09-05 Outpatient R MANISH [facility] [id number] Univers 13:30:00 14:23:24 RAUL [facility] 2021-09-05 2021-09-05 Telephone [facility] 1.2.850.084 [id number] Univers 00:00:00 00:00:00 Maritza A HEALTH 350.1.13.10 i ty of [place] 4.2.7.2.686 Scot as RODERICK?BLEA [id number] [facility] [address] [place] MEDICAL OFFICE [facility] 2021-09-03 2021-09-03 Outpatient R MARLINSRUTHI [facility] [id number] Univers 16:00:00 16:00:00 RAUL itshira [facility] 2021-09-02 2021-09-02 Outpatient R MOHINDER, [facility] [id number] Univers 10:00:00 10:00:00 MARITZA cole [facility] 2021-09-02 2021-09-02 Outpatient [facility] [id number] Univers 10:00:00 10:00:00 MARITZA shira [facility] 2021-08-29 2021-08-29 Telephone VIDYA Bautista 1.2.313.431 [id number] Univers 00:00:00 00:00:00 Villa ARREDONDO 350.1.13.10 ity [facility] 4.2.7.2.686 Scot as [id number] [address] 2021-08-28 2021-08-28 Laboratory Only, Ang Db Test [facility] 1.2.8 40.114 [id number] Univers 18:00:00 18:15:00 Only Dustin Nichols HEALTH 350.1.13.10 ity of [place] 4.2.7.2.686 Scot as RODERICK?BLEA [id number] [address] MEDICAL OFFICE [facility] 2021-08-28 2021-08-28 Outpatient [facility] [id number] Univers 18:00:00 18:00:00 DUSTIN ity o f [facility] 2021-08-22 2021-08-22 Laboratory Only, Ang Db Test [facility] 1.2.8 40.114 [id number] Univers 20:00:00 20:15:00 Only Haroon, Bill HEALTH 350.1.13.10 ity of [place] 4.2.7.2.686 Scot as RODERICK?BLEA [id number] [address] OFFICE [facility] 2021-08-22 2021-08-22 Outpatient R HAROON, [facility] [id number] Univers 20:00:00 20:00:00 BILL shira [facility] 2021-08-21 2021-08-21 Outpatient R CAROLINE, [facility] [id number] Univers 12:00:00 12:00:00 SAMMIE ity o f [facility] 2021-08-21 2021-08-21 Letter Nurse, Harvey [facility] 1.2.840.114 [id number] Univers 00:00:00 00:00:00 (Out) Urgent Care HEALTH [id number] ity of [place] [id number] [place] as RODERICK?BLEA [phone] [address] OFFICE [facility] 2021-08-15 2021-08-15 Outpatient R LUIS [facility] [id number] Univers 11:30:00 11:30:[address] o [address] [facility] 2021-08-13 2021-08-13 Outpatient R COREY DURAN [facility] [id number] Univers 08:00:00 08:00:00 COREY DURAN [facility] 2021-08-11 2021-08-11 Outpatient R JC [facility] [id number] Univers 16:00:00 16:31:43 ARTURO [facility] 2021-08-11 2021-08-11 Laboratory Only, Harvey Db Test [facility] 1.2.8 40.114 [id number] Univers 16:00:00 16:15:00 Only Unknown, Attending HEALTH 350.1.13.10 ity [facility] 4.2.7.2.686 [place] as RODERICK?BLEA [phone] [address] MEDICAL OFFICE [facility] 2021-08-09 2021-08-09 Outpatient COREY QUINTEROS [facility] [id number] Univers 10:00:00 10:00:00 COREY DURAN [facility] 2021-08-05 2021-08-05 Emergency X YAEUGENIAMA, [facility] ERT [id number] Univers 15:05:00 16:44:00 LENORA itshira [facility] 2021-08-05 2021-08-05 Emergency Angel, [facility] 1.2.084.745 [id number] Univers 15:05:00 16:44:00 Lenora MURCIA 350.1.13.10 ity of [facility] 4.2.7.2.686 [place] [phone] [address] 2021-08-01 2021-08-01 Office Manish [facility] 1.2.840.114 [id number] Univers 09:30:00 10:47:41 Visit Raul HEALTH 350.1.13.10 it y of [facility] 4.2.7.2.686 [place] RODERICK?BLEA [phone] [address] MEDICAL OFFICE [facility] 2021-08-01 2021-08-01 [facility] [id number] Univers 09:30:00 10:47:41 RAUL itshira [facility] 2021-08-01 2021-08-01 Office [facility] 1.2.840.114 [id number] Univers 09:30:00 10:47:41 Visit Raul HEALTH 350.1.13.10 it y of [place] 4.2.7.2.686 [place] RODERICK?BLEA [phone] [address] MEDICAL OFFICE [facility] 2021-08-01 2021-08-01 Outpatient R MANISH, [facility] [id number] Univers 09:30:00 10:47:41 RAUL ity [facility] 2021-08-01 2021-08-01 Outpatient R MANISH, [facility] [id number] Univers 09:30:00 09:30:00 RAUL ity [facility] 2021-07-18 2021-07-18 Outpatient R JARON [facility] [id number] Univers 14:00:00 14:35:49 JOSIE ity [facility] 2021-07-18 2021-07-18 Office [facility] 1.2.840.114 [id number] Univers 14:00:00 14:35:49 Visit Josie Collins HEALTH 350.1.13.10 i ty of EYE 4.2.7.2.686 [facility] [phone] [facility] [address] 2021-07-17 2021-07-17 Outpatient Rosalva FINLEY [facility] [id number] Univers 09:00:00 09:00:00 JOHNATHANA edely o f [facility] 2021-07-17 2021-07-17 Outpatient Rosalva FINLEY [facility] [id number] Univers 09:00:00 09:00:00 LENORANDA ity o f [facility] 2021-07-12 2021-07-13 Emergency [facility] ERT [id number] Univers 19:10:00 01:46:00 WAKILI ity [facility] 2021-07-12 2021-07-13 Emergency X YARIMA, [facility] ERT [id number] Univers 19:10:00 01:46:00 NJAUDI ity [facility] 2021-07-12 2021-07-13 Emergency [facility] 1.2.882.411 [id number] Univers 19:10:00 01:46:00 Lenora Anastasiya [facility] 350.1.13.10 ity of [place] 4.2.7.2.686 [facility] [phone] [facility] [address] 2021-07-12 2021-07-12 Outpatient Rosalva CEDEÑO [facility] [id number] Univers 11:45:00 11:54:39 [facility] 2021-07-12 2021-07-12 Nurse Nurse, [facility] 1.2.840.114 [id number] Univers 11:34:17 11:54:39 Visit Geo Cedeño [facility] 350.1.13.10 ity of [place] 4.2.7.2.686 [place] RODERICK?BLEA [phone] Nd luisana [address] MEDICAL OFFICE BUILDING 2021-07-12 2021-07-12 Orders Doctor VIDYA 1.2.840.114 [id number] Univers 00:00:00 00:00:00 Only Unassigned, MARIA ELENA 350.1.13.10 ity of [place] [facility] 4.2.7.2.686 [place] as [phone] [address] 2021-06-14 2021-06-14 Orthotics Technician Lab, Ang - Db [facility] 1.2.840.1 14 [id number] Univers 09:57:31 10:12:31 Visit Corey Duran [facility] 350.1.13. 10 ity of [place] 4.2.7.2.686 [place] as RODERICK?BLEA [phone] [facility] [address] [place] MEDICAL OFFICE BUILDING 2021-06-14 2021-06-14 Outpatient COREY QUINTEROS [facility] [id number] Univers 09:20:00 09:58:01 COREY DURAN shira [facility] 2021-06-14 2021-06-14 Outpatient COREY QUINTEROS [facility] [id number] Univers 09:20:00 09:58:01 COREY DURAN shira [facility] 2021-06-14 2021-06-14 Office Shyam [facility] 1.2.840.114 [id number] Univers 09:17:10 09:58:01 Visit [facility] 350.1.13.10 ity of [place] 4.2.7.2.686 [place] as RODERICK?BLEA [phone] Nd luisana [address] OFFICE [facility] 2021-06-14 2021-06-14 Outpatient COREY QUINTEROS [facility] [id number] Univers 09:20:00 09:20:00 COREY DURAN [facility] 2021-06-06 2021-06-06 Outpatient Rosalva LIND [facility] [id number] Univers 13:40:00 13:40:00 ENEDINA edelshira o [facility] 2021-06-06 2021-06-06 Outpatient Rosalva LIND [facility] [id number] Univers 13:40:00 13:40:00 ENEDINA edelshira o [facility] 2021-06-04 2021-06-04 Orthotics Technician Lab, Ang - Db [facility] 1.2.840.1 14 [id number] Univers 16:23:28 16:38:28 Visit Maritza Vines HEALTH 350.1.13.10 ity of [facility] 4.2.7.2.686 [place] RODERICK?BLEA [phone] [facility] OFFICE [facility] 2021-06-04 2021-06-04 Outpatient R MARLINSRUTHI [facility] [id number] Univers 16:00:00 16:23:14 RAULGUS cole [facility] 2021-06-04 2021-06-04 Outpatient [facility] [id number] Univers 16:00:00 16:23:14 RAULGUS cole [facility] 2021-06-04 2021-06-04 Office [facility] 1.2.840.114 [id number] Univers 15:49:27 16:23:14 Visit Raul CARVER 350.1.13.10 it y of [facility] 4.2.7.2.686 [place] RODERICK?BLEA [phone] [facility] 044 [facility] 2021-06-03 2021-06-03 Telephone Mohinder [facility] 1.2.742.270 [id number] Univers 00:00:00 00:00:00 Maritza Tinajero HEALTH 350.1.13.10 i ty of [place] 4.2.7.2.686 [place] RODERICK?BLEA [phone] [address] OFFICE [facility] 2021-06-02 2021-06-02 Emergency X [facility] ERT [id number] Univers 13:06:00 18:42:00 ASHOK cole [facility] 2021-06-02 2021-06-02 Emergency [facility] 1.2.972.436 [id number] Univers 13:06:00 18:42:00 Ashok Lizama ASHALICE 350.1.13.10 ity of [facility] 4.2.7.2.686 [place] [facility] [phone] [address] 2021-06-02 2021-06-02 Emergency [facility] [id number] Univers 13:06:00 18:42:00 ASHOK cole [facility] 2021-06-02 2021-06-02 Orders Doctor VIDYA 1.2.840.114 [id number] Univers 00:00:00 00:00:00 Only Unassigned, MARIA ELENA 350.1.13.10 ity of [place] [facility] 4.2.7.2.[phone] [facility] [address] 2021-05-30 2021-05-30 Outpatient [facility] [id number] Univers 11:15:00 11:15:00 WONDIFUL ity o [facility] 2021-05-30 2021-05-30 Outpatient [facility] [id number] Univers 10:30:00 10:30:00 MARITZA shira [facility] 2021-05-30 2021-05-30 Outpatient R [facility] [id number] Univers 10:30:00 10:30:00 MARITZA [facility] 2021-05-14 2021-05-14 Outpatient R [facility] [id number] Univers 14:00:00 14:00:00 ity [facility] 2021-05-14 2021-05-14 Outpatient R [facility] [id number] Univers 13:00:00 13:00:00 JOHNATHANA ity o [facility] 2021-05-09 2021-05-09 Outpatient [facility] [id number] Univers 14:20:00 14:20:00 ENEDINA ity o [facility] 2021-05-07 2021-05-07 Office [facility] 1.2.840.114 [id number] Univers 09:54:24 10:24:24 Visit [facility] 350.1.13.10 ity of Specialty 4.2.7.2.686 [facility] [phone] [facility] [address] 2021-05-07 2021-05-07 Outpatient [facility] [id number] Univers 09:30:00 09:30:00 HOPKINS ity o [facility] 2021-05-07 2021-05-07 Telephone [facility] 1.2.704.790 [id number] Univers 00:00:00 00:00:00 [facility] 350.1.13.10 ity of Specialty 4.2.7.2.686 [place] [facility] - [phone] [address] 2021-05-06 2021-05-06 Orthotics Technician Zhang, Adc Lab Main [facility] 1.2.8 40.114 [id number] Univers 17:03:55 17:18:55 Visit Lyssa Monreald Tanvi [place] 350.1.13.10 ity of [place] 4.2.7.2.686 [place] Profess[place] [phone] [address] 2021-05-06 2021-05-06 Outpatient R [facility] [id number] Univers 10:00:00 10:00:00 MARITZA hollingsworthshira [facility] 2021-04-30 2021-04-30 Orthotics Technician Zhang, [facility] Lab Main [facility] 1.2.8 40.114 [id number] Univers 11:47:03 12:02:03 Visit Maritza Vineston 350.1.13.10 ity of [place] 4.2.7.2.686 [place] Profess[place] [phone] [address] 2021-04-30 2021-04-30 Outpatient R MOHINDER [facility] [id number] Univers 11:30:00 11:30:00 MARITZA hollingsworthshira [facility] 2021-04-30 2021-04-30 Telephone Rah [facility] 1.2.035.289 [id number] Univers 00:00:00 00:00:00 Sandeep A Health 350.1.13.10 ity of [place] 4[place]2.7.2.686 [place] [phone] [address] Office Building 2021-04-17 2021-04-17 Office [facility] 1.2.840.114 [id number] Univers 12:36:07 13:51:10 Visit Maritza Tinajero Health 350.1.13.10 i ty of [place] 4.2.7.2.686 [place] Roderick?Blea [phone] [address] Office [facility] 2021-04-17 2021-04-17 Outpatient R MOHINDER [facility] [id number] Univers 12:30:00 12:30:[address] [facility] 2021-04-17 2021-04-17 Orders Doctor VIDYA 1.2.840.114 [id number] Univers 00:00:00 00:00:00 Only Unassigned, MARIA ELENA 350.1.13.10 ity of [place] [facility] 4.2.7.2.686 [place] as [phone] [address] 2021-04-17 2021-04-17 Telephone [facility] 1.2.846.305 [id number] Univers 00:00:00 00:00:00 Maritza A Health 350.1.13.10 i ty of [place] 4.2.7.2.686 [place] Roderick?Blea [phone] [address] Office [facility] 2021-04-17 2021-04-17 Orders Doctor VIDYA 1.2.840.114 [id number] Univers 00:00:00 00:00:00 Only Unassigned, MARIA ELENA 350.1.13.10 ity of [place] [facility] 4.2.7.2.686 [place] as [id number] [address] 2021-03-21 2021-03-21 Telephone Resendez, UNIVERSIT 1.2.840.11 [id number] Univers 00:00:00 00:00:00 Radha Robles Y HEALTH 350.1.13.10 i ty of [facility] 4.2.7.2.686 [place] [phone] [place] 175065 [place] 2021-03-15 2021-03-15 Emergency Lenora Ortiz [facility] 1.2.840 .114 [id number] Univers 00:58:00 18:31:00 [place] 350.1.13.10 ity of [place] 4.2.7.2.686 [place] [phone] [place] 860264 [place] 2021-03-07 2021-03-07 Office Pgy2 UNIVERSIT 1.2.912.713 [id number] Univers 15:22:23 15:37:23 Visit Sandeep Monreal [facility] 350.1.13.10 ity of [facility] 4.2.7.2.[address] [place] [phone] [facility] [address] 2021-03-07 2021-03-07 Outpatient R [facility] [id number] Univers 15:15:00 15:15:[address] [facility] 2021-03-06 2021-03-06 Outpatient R [facility] [id number] Univers 10:30:00 10:30:00 MARITZA cole [facility] 2021-03-05 2021-03-05 Emergency Claudia Carranza [facility] 1.2.840.114 [id number] Univers 00:44:00 05:15:00 Joanna [place] 350.1.13.10 i ty [facility] 4.2.7.2.686 [place] [phone] [facility] 084 [place] 2021-03-05 2021-03-05 Orders Doctor VIDYA 1.2.840.114 [id number] Univers 00:00:00 00:00:00 Only Unassigned, MARIA ELENA 350.1.13.10 ity of [place] [facility] 4.2.7.2.[phone] [facility] [address] 2021-02-28 2021-02-28 Office Malia [facility] 1.2.840.114 [id number] Univers 10:36:17 11:42:08 Visit Iliana Blackwell COILED COIL INSPECTOR 350.1.13.10 ity of [facility] 4.2.7.2.686 [place] as MATERNAL [phone] Med ical & CHILD [address] [place] [address] 2021-02-28 2021-02-28 Outpatient R MALIA [facility] [id number] Univers 10:45:00 10:45:00 ILIANA cole o f [facility] 2021-02-22 2021-02-22 Outpatient R MOHINDER [facility] [id number] Univers 13:00:00 13:00:00 MARITZA cole [facility] 2021-02-22 2021-02-22 Telephone Mohinder [facility] 1.2.773.978 [id number] Univers 00:00:00 00:00:00 Maritza A Health 350.1.13.10 i ty of [place] 4.2.7.2.686 [place] as Professio [phone] [address] One 2021-02-21 2021-02-21 Emergency [facility] 1.2.840.114 [id number] Univers 14:23:00 16:09:00 Radha Murcia 350.1.13.10 ity [facility] 4.2.7.2.686 [place] [facility] [phone] [address] 2021-02-21 2021-02-21 Telephone E[facility] 1.2.840.114 [id number] Univers 00:00:00 00:00:00 Osvaldo Chisholm COILED COIL INSPECTOR 350.1.13.10 ity [facility] 4.2.7.2.686 [place] as MATERNAL [phone] [facility] ical & CHILD [address] [place] [address] 2021-02-19 2021-02-19 Office [facility] 1.2.850.953 [id number] [facility] 13:50:26 14:20:33 Visit Osvaldo Chisholm COILED COIL INSPECTOR 350.1.13.10 ity [facility] 4.2.7.2.686 [place] as MATERNAL [phone] [facility] & [address] 2021-02-19 2021-02-19 Outpatient R ERIS [facility] [id number] Univers 14:00:00 14:00:[address] ity o f [facility] 2021-02-18 2021-02-18 Telephone [facility] 1.2.179.131 [id number] Univers 00:00:00 00:00:00 Maritza A Health 350.1.13.10 i ty of [place] 4.2.7.2.686 [place] Professio [phone] [address] One 2021-02-11 2021-02-11 Urgent Provider, [facility] 1.2.840.114 [id number] Univers 16:48:53 18:10:35 Care Graham [facility] 350.1.13.10 ity of [place] 4.2.7.2.686 [place] Professio [phone] Nd dical nal 044 [facility] One 2021-02-11 2021-02-11 Outpatient R [facility] [id number] Univers 17:00:00 17:00:[address] [facility] 2021-02-07 2021-02-07 Outpatient [facility] [id number] Univers 08:15:00 08:15:00 WONDIFUL ity o f [facility] 2021-02-06 2021-02-06 Outpatient R [facility] [id number] Univers 13:30:00 13:30:00 [facility] 2021-02-06 2021-02-06 Orders Doctor VIDYA 1.2.840.114 [id number] Univers 00:00:00 00:00:00 Only Unassigned, MARIA ELENA 350.1.13.10 ity of [place] [facility] 4.2.7.2.686 [place] as [phone] [address] 2021-01-29 2021-01-29 Outpatient R [facility] [id number] Univers 14:30:00 14:30:00 JASWINDER [facility] 2021-01-28 2021-01-28 Outpatient R [facility] [id number] Univers 10:30:00 10:30:00 JOSIE [facility] 2021-01-25 2021-01-25 Outpatient [facility] [id number] Univers 11:30:00 11:30:00 ELEAZAR [facility] 2021-01-25 2021-01-25 Telephone [facility] 1.2.944.872 [id number] Univers 00:00:00 00:00:00 Maritza Tinajero Health 350.1.13.10 i ty of [place] 4.2.7.2.686 [place] Professio [phone] Nd dical nal 044 [facility] One 2021-01-22 2021-01-22 Orthotics Technician Lab, Adc Fam Pob I [facility] 1.2. 840.114 [id number] Univers 14:45:57 15:05:57 Visit Kimberly NicholsExcela [facility] 350.1.13.10 ity of [place] 4.2.7.2.686 [place] Professio [phone] Nd dicok nal 044 [place] Office [facility] One 2021-01-22 2021-01-22 Office [facility] 1.2.840.114 [id number] Univers 13:54:55 14:46:13 Visit [facility] 350.1.13.10 i ty of [place] 4.2.7.2.686 [place] as Professio [phone] [address] One 2021-01-22 2021-01-22 Outpatient R [facility] [id number] Univers 14:00:00 14:00:00 DUSTIN cole o [facility] 2021-01-20 2021-01-20 Emergency [facility] 1.2.838.573 [id number] Univers 01:27:00 04:30:00 Lenora Langford [place] 350.1.13.10 ity of [place] 4.2.7.2.686 [place] [facility] [phone] [address] 2021-01-18 2021-01-18 Outpatient R SAI [facility] [id number] Univers 10:30:00 10:30:00 ELEAZAR cole [facility] 2021-01-10 2021-01-10 Outpatient R ERIS [facility] [id number] Univers 13:15:00 13:15:[address] o f [facility] 2021-01-02 2021-01-02 Outpatient R ERIS [facility] [id number] Univers 08:00:00 08:00:[address]y o f [facility] 2020-11-14 2020-11-14 [facility] 1.2.377.993 [id number] 13:09:00 14:20:05 Visit Osvaldo Chisholm COILED COIL INSPECTOR 350.1.13.10 [facility] 4.2.7.2.686 MATERNAL [phone] & CHILD 107 [facility] 2020-11-14 2020-11-14 Office [facility] 1.2.503.824 [id number] Univers 13:09:00 14:20:05 Visit Osvaldo Chisholm COILED COIL INSPECTOR 350.1.13.10 ity of [facility] 4.2.7.2.686 [place] MATERNAL [phone] Med ical & CHILD 107 [facility] 2020-11-14 2020-11-14 Outpatient R [facility] [id number] Univers 13:15:00 13:15:[address]y o f [facility] 2020-11-11 2020-11-12 [facility] 1.2.310.447 [id number] Univers 20:34:00 00:26:00 Lenora Murcia 350.1.13.10 ity of [place] 4.2.7.2.686 [facility] [phone] [address] 2020-11-10 2020-11-10 Outpatient [facility] [id number] Univers 13:55:00 13:55:[address] [facility] 2020-11-04 2020-11-04 Emergency [facility] 1.2.587.917 [id number] Univers 18:01:00 20:04:00 Jemima Langford [place] 350.1.13.10 i ty of [place] 4.2.7.2.686 [facility] [phone] [address] 2020-10-30 2020-10-30 1.2.840.1 1.2.840.114 [id number] Univers 00:00:00 00:00:00 Encounter 18791.1.1 350.1.13.10 ity of 3.104.2.7 4.[place].2.696 [place] .[id number] 570 [facility] 2020-10-29 2020-10-29 Telephone [facility] 1.2.188.221 [id number] Univers 00:00:00 00:00:00 Jaswinder [place] 350.1.13.10 i ty of [place] 4.2.7.2.686 [place] [phone] [address] 2020-10-29 2020-10-29 Telephone [facility]MEM[facility] 1.2.203.312 [id number] Univers 00:00:00 00:00:00 [facility] 350.1.13.10 i ty of [place] 4.2.7.2.686 [place] [phone] [address] 2020-10-26 2020-10-26 Outpatient Rosalva HERNANDEZ [facility] [id number] Univers 15:00:00 15:00:00 [facility] 2020-10-25 2020-10-25 Telephone [facility] 1.2.020.109 [id number] Univers 00:00:00 00:00:00 [facility] 350.1.13.10 i ty of [place] 4.2.7.2.686 [place] [phone] [address] 2020-10-24 2020-10-24 Routine Akinargelia [facility] 1.2.352.504 [id number] Univers 15:58:25 16:30:47 Osvaldo C COILED COIL INSPECTOR 350.1.13.10 ity of Visit [facility] 4.2.7.2.686 [place] as MATERNAL [phone] Med ical & CHILD [address] [place] [address] 2020-10-24 2020-10-24 Office Zbigniew [facility] 1.2.840.114 [id number] Univers 08:32:21 09:34:52 Visit [facility] 350.1.13.10 i ty of [place] 4.2.7.2.686 [place] [phone] [address] 2020-10-24 2020-10-24 Outpatient R ZBIGNIEW [facility] [id number] Univers 08:30:00 08:30:00 [facility] 2020-10-20 2020-10-20 Outpatient [facility] [id number] Univers 13:45:00 13:45:[address] [facility] 2020-10-19 2020-10-19 Telephone Edwin [facility] 1.2.050.430 [id number] Univers 00:00:00 00:00:00 [facility] 350.1.13.10 it y of [place] 4.2.7.2.686 [place] as Professio [phone] [facility] 044 [place] Office [facility] One 2020-10-18 2020-10-18 [facility] 1.2.840.114 [id number] Univers 20:14:02 23:59:00 Encounter Anna Murcia 350.1.13.10 ity of [place] 4.2.7.2.686 [place] [facility] [phone] [facility] 807 [place] 2020-10-18 2020-10-18 Urgent Provider, [facility] 1.2.840.114 [id number] Univers 18:26:47 19:49:55 Care Sammie Velazquez [facility] 350.1.13.10 ity [facility] 4.2.7.2.686 [place] Professio [phone] [address] One 2020-10-18 2020-10-18 Outpatient R CAROLINE [facility] [id number] Univers 18:40:00 18:40:00 SAMMIE itshira o f [facility] 2020-10-13 2020-10-13 Nurse VIDYA Barrios 1.2.840.114 [id number] Univers 00:00:00 00:00:00 Triage Yesenia ARREDONDO 350.1.13.10 it y of [facility] 4.2.7.2.[id number] [facility] [address] [place] 2020-10-11 2020-10-11 Nurse Visit, Dione Nurse [facility] 1.2 .840.114 [id number] Univers 10:20:05 10:38:28 Visit Osvaldo Schulte [employer] INSPECTOR 350.1.13. 10 ity of [facility] 4.2.7.2.686 Scot as MATERNAL [phone] Med ical & CHILD [address] [place] [address] 2020-10-11 2020-10-11 Outpatient R ADRIANAJOSUE [facility] [id number] Univers 10:30:00 10:30:[address] it[address] o f [facility] [place] 2020-10-11 2020-10-11 1.2.840.1 1.2.840.114 [id number] Univers 00:00:00 00:00:00 Encounter [id number] 350.1.13.10 ity of 3[place]104.2.7 [place]2.[place] .[id number] [facility] 2020-10-08 2020-10-08 1.2.840.1 1.2.840.114 [id number] Univers 00:00:00 00:00:00 Encounter [id number] 350.1.13.10 ity of 3.104.2.7 [place]2.[place] .[id number] 570 [facility] 2020-10-01 2020-10-01 [employer] Faculty, Harvey [facility] 1.2.840.114 [id number] Univers 09:23:14 14:54:50 ne Visit Basia Carreon [employer]IL INSPECTOR 350.1.13.10 ity of [facility] 4.2.7.2.686 [place] as MATERNAL [id number] [facility] ical & CHILD [address] [place] [address] 2020-09-27 2020-09-27 [facility] Vidya Dean [facility] 1.2.840.114 [id number] Univers 14:29:00 22:45:00 Encounter [facility] 350.1.13.10 ity of [place] 4.2.7.2.686 [facility] [id number] [address] 2020-09-27 2020-09-27 Outpatient P VIDYA DEAN [facility] DENISE [id number] Univers 14:29:00 22:45:[address] [facility] [place] 2020-09-27 2020-09-27 Outpatient R [facility] [id number] Univers 13:00:00 13:00:[address] [facility] 2020-09-27 2020-09-27 Telemedici Fellow, Christiano Capellan [facility] 1 .2.840.114 [id number] Univers 07:53:52 08:08:52 ne Visit Basia Carreon COILED COIL INSPECTOR 350.1.13.10 ity of [facility] 4.2.7.2.686 [place] MATERNAL [phone] [facility] ical & CHILD [address] [place] [address] 2020-09-24 2020-09-24 Routine Faculty, Harvey Capellan [facility] 1.2 .840.114 [id number] Univers 14:32:43 15:03:55 Aaron Li COILED COIL INSPECTOR 350.1.13.10 ity of Visit REGIONAL 4.2.7.2.686 [place] MATERNAL [phone] [facility] & CHILD [address] [place] [address] 2020-09-24 2020-09-24 Outpatient R [facility] [id number] Univers 14:30:00 14:30:00 ity [facility] 2020-09-19 2020-09-22 [facility] VIDYA Sethi 1.2.005.891 [id number] Univers 20:30:00 10:35:00 Encounter Thompson Yosvany ARREDONDO 350.1.13.10 ity of [facility] 4.2.7.2.686 [place] [phone] [address] 2020-09-20 2020-09-20 Outpatient R [facility] [id number] Univers 15:00:00 15:00:00 ity [facility] 2020-09-13 2020-09-13 Routine Risk, Ymw-Xrrcg-Ts/High [facility] 1. 2.840.114 [id number] Univers 14:30:12 15:31:05 Tania Vazquez COILED COIL INSPECTOR 350.1.13.10 ity of Visit [facility] 4.2.7.2.686 [place] MATERNAL [phone] [facility] & CHILD [address] [place] [address] 2020-09-13 2020-09-13 Outpatient R GEORGE [facility] [id number] Univers 14:30:00 14:30:00 TANIA itshira [facility] 2020-09-11 2020-09-11 Outpatient P AARON LI [facility] [id number] Univers 13:30:00 13:30:00 AARON LI [facility] 2020-09-02 2020-09-09 Hospital Ino DASILVA 1.2.840.114 [id number] Univers 23:37:00 14:30:00 Encounter Camron MARIA ELENA 350.1.13.10 ity of s, [facility] 4.2.7.2.[phone] [facility] [address] 2020-09-09 2020-09-09 Letter YASMIN PearsonIT 1.2.840.114 [id number] Univers 00:00:00 00:00:00 (Out) [facility] 350.1.13.10 i ty of [facility] 4.2.7.2.[address] [place] [phone] [facility] [address] 2020-09-06 2020-09-06 Outpatient P FARHAN [facility] [id number] Univers 13:00:00 13:00:00 NICHOLE [facility] 2020-09-02 2020-09-[address] [facility] [address] 1.2.545.629 [id number] Univers 12:27:00 15:04:00 Jemima Murcia 350.1.13.10 i ty of [place] 4.2.7.2.[address] [facility] [phone] [facility] [address] 2020-09-02 2020-09-02 Orders Doctor DASILVA 1.2.840.114 [id number] Univers 00:00:00 00:00:00 Only Unassigned, MARIA ELENA 350.1.13.10 ity of [place] [facility] 4.2.7.2.[phone] [facility] [address] 2020-08-30 2020-08-30 Outpatient R [facility] [id number] Univers 15:30:00 15:30:00 ity [facility] 2020-08-28 2020-08-28 Telephone ANEL Munoz 1.2.840.114 [id number] Univers 00:00:00 00:00:00 [facility] 350.1.13.10 i ty of CLINICS 4[place]2.7.2.[address] [place] [phone] [facility] 113 [place] 2020-08-28 2020-08-28 Telephone Shebatrejosue [facility] 1.2.840.114 [id number] Univers 00:00:00 00:00:00 Osvaldo Chisholm COILED COIL INSPECTOR 350.1.13.10 ity of [facility] 4.2.7.2.686 [place] MATERNAL [phone] Med ical & [place]ILD [address] [place] [address] 2020-08-23 2020-08-23 Routine Risk, Thu-Ypdae-Bi/High [facility] 1. 2.840.114 [id number] Univers 15:25:42 16:19:39 Tania Vazquez COILED COIL INSPECTOR 350.1.13.10 ity of Visit [facility] 4.2.7.2.686 [place] MATERNAL [phone] [facility] & CHILD [address] [place] [address] 2020-08-23 2020-08-23 Outpatient R [facility] [id number] Univers 11:00:00 11:00:[address] [facility] 2020-08-16 2020-08-16 Routine Risk, Yoy-Fqmfg-Tg/High [facility] 1. 2.840.114 [id number] Univers 13:22:11 13:37:11 Crystal Menard COILED COIL INSPECTOR 350.1.13.10 ity of Visit [facility] 4.2.7.2.686 [place] MATERNAL [phone] [facility] & CHILD [address] [place] [address] 2020-08-16 2020-08-16 Outpatient R [facility] [id number] Univers 13:30:00 13:30:[address] [facility] 2020-08-16 2020-08-16 Orders Doctor DASILVA 1.2.840.114 [id number] Univers 00:00:00 00:00:00 Only Unassigned, MARIA ELENA 350.1.13.10 ity of [place] [facility] 4.2.7.2.[phone] [facility] 00[address] [place] 2020-08-09 2020-08-11 Hospital VIDYA Real 1.2.840.114 [id number] Univers 18:41:00 13:02:00 Encounter Nichole Crowell MARIA ELENA 350.1.13.10 ity of [facility] 4.2.7.2.[phone] [facility] 019 [place] 2020-08-09 2020-08-09 Routine Risk, Xwv-Harqq-Kp/High [facility] 1. 2.840.114 [id number] Univers 13:21:37 14:25:58 Tania Vazquez COILED COIL INSPECTOR 350.1.13.10 ity of Visit [facility] 4.2.7.2.686 [place] MATERNAL [phone] Med ical & CHILD 107 [facility] 2020-08-09 2020-08-09 Outpatient R [facility] [id number] Univers 14:00:00 14:00:[address] [facility] 2020-08-09 2020-08-09 Orthotics Technician [facility] 1.2 .840.114 [id number] Univers 12:52:13 13:21:14 Visit Edmund Realio Mervat COILED COIL INSPECTOR 350.1.13.10 ity of [place] [address].2.7.2.686 [place] as MATERNAL [phone] Med ical & CHILD 369 [facility] 2020-08-09 2020-08-09 Orders Doctor VIDYA 1.2.840.114 [id number] Univers 00:00:00 00:00:00 Only Unassigned, MARIA ELENA 350.1.13.10 ity of [place] [facility] 4.2.7.2.[phone] [facility] [address] [place] 2020-08-08 2020-08-08 Hospital [facility] 1.2.840.114 [id number] Univers 16:18:00 20:20:00 Encounter Adelaida Murcia 350.1.13.10 ity of [place] 4.2.7.2.686 [place] [facility] [phone] [facility] 083 [place] 2020-08-08 2020-08-08 Orders Doctor DASILVA 1.2.840.114 [id number] Univers 00:00:00 00:00:00 Only Unassigned, MARIA ELENA 350.1.13.10 ity of [place] [facility] 4.2.7.2.[phone] [facility] 00[address] [place] 2020-07-31 2020-07-31 Routine [facility], [facility] 1.2.659.495 [id number] Univers 14:33:59 15:07:48 Osvaldo C COILED COIL INSPECTOR 350.1.13.10 ity of Visit REGIONAL 4.2.7.2.686 [place] MATERNAL [phone] [facility] ical & CHILD [address] [place] [address] 2020-07-31 2020-07-31 Outpatient R [facility] [id number] Univers 14:30:00 14:30:[address] ity o f [facility] 2020-07-23 2020-07-23 Outpatient R [facility] [id number] Univers 10:00:00 10:00:[address] [facility] 2020-07-22 2020-07-22 Emergency Sherry Topete [facility] 1.2.840. 114 [id number] Univers 15:14:00 17:33:00 Vidya Dean Holstein 350.1.13.10 ity of [place] [facility].7.2.[phone] [facility] 084 [place] 2020-07-22 2020-07-22 Outpatient P VIDYA DEAN [facility] DENISE [id number] Univers 15:14:00 15:14:[address] [facility] 2020-07-16 2020-07-16 Routine [facility] 1.2.885.949 [id number] Univers 10:49:31 11:34:46 Osvaldo C COILED COIL INSPECTOR 350.1.13.10 ity of Visit REGIONAL 4.2.7.2.686 [place] as MATERNAL [phone] [facility] & CHILD [address] [place] [address] 2020-07-16 2020-07-16 Routine Harvey Maldonado [facility] 1.2 .840.114 [id number] Univers 10:03:55 10:49:16 Aaron Li COILED COIL INSPECTOR 350.1.13.10 ity of Visit REGIONAL 4.2.7.2.686 [place] MATERNAL [phone] Med ical & CHILD 107 [facility] 2020-07-16 2020-07-16 Outpatient R [facility] [id number] Univers 09:00:00 09:00:00 ity [facility] 2020-07-16 2020-07-16 Orders Doctor VIDYA 1.2.840.114 [id number] Univers 00:00:00 00:00:00 Only Unassigned, MARIA ELENA 350.1.13.10 ity of [place] [facility] 4.2.7.2.686 [place] as [phone] [address] 2020-07-12 2020-07-12 Outpatient P ABIMBOLA GILL [facility] [id number] Univers 10:30:00 10:30:00 ity [facility] 2020-07-11 2020-07-11 Outpatient R RAH [facility] [id number] Univers 13:30:00 13:30:00 SANDEEP ity o f [facility] 2020-07-09 2020-07-09 Telemedici Faculty, Harvey Rodriguezconchita [facility] 1.2.840.114 [id number] Univers 08:08:55 16:43:54 ne Visit Aaron Li COILED COIL INSPECTOR 350.1.13.10 ity of [facility] 4.2.7.2.686 [place] as MATERNAL [phone] [facility] & [address] 2020-07-09 2020-07-09 Outpatient R AARON LI [facility] [id number] Univers 15:30:00 15:30:00 AARON LI ity [facility] 2020-07-09 2020-07-09 Orthotics Technician Ultrasound, [facility] 1.2 .840.114 [id number] Univers 13:00:00 14:06:35 Visit Aaron Li COILED COIL INSPECTOR 350.1.13.10 ity of [facility] 4.2.7.2.686 [place] MATERNAL [phone] [facility] 369 [facility] 2020-07-02 2020-07-02 Outpatient R [facility] [id number] Univers 09:45:00 09:45:00 ity [facility] 2020-07-02 2020-07-02 Telemedici Faculty, Harvey [facility] 1.2.840.114 [id number] Univers 08:27:24 08:57:24 ne Visit Dio Abbott COILED COIL INSPECTOR 350.1 .13.10 ity of REGIONAL 4.2.7.2.686 [place] MATERNAL [phone] [facility] ical & CHILD [address] [place] [address] 2020-06-27 2020-06-27 Office Hernandez, [facility] 1.2.840.114 [id number] Univers 10:04:07 11:12:04 Visit [facility] 350.1.13.10 it y of [place] [phone] [address] 2020-06-27 2020-06-27 Outpatient [facility] [id number] Univers 10:00:00 10:00:00 HUMAIR ity [facility] 2020-06-26 2020-06-26 [facility] 1.2.840.114 [id number] Univers 00:00:00 00:00:00 Osvaldo Chisholm COILED COIL INSPECTOR 350.1.13.10 ity of REGIONAL 4.2.7.2.686 [place] MATERNAL [phone] [facility] & CHILD [address] [place] [address] 2020-06-25 2020-06-25 Routine Faculty, Harvey Capellan [facility] 1.2 .840.114 [id number] Univers 09:02:18 09:43:31 Basia Carreon COILED COIL INSPECTOR 350.1.13.10 ity of Visit REGIONAL 4.2.7.2.686 [place] MATERNAL [phone] [facility] & CHILD [address] [place] [address] 2020-06-25 2020-06-25 Outpatient R [facility] [id number] Univers 09:15:00 09:15:00 ity [facility] 2020-06-22 2020-06-22 Telephone [facility] 1.2.840.114 [id number] Univers 00:00:00 00:00:00 Osvaldo Chisholm COILED COIL INSPECTOR 350.1.13.10 ity of REGIONAL 4.2.7.2.686 [place] MATERNAL [phone] [facility] & CHILD [address] [place] [address] 2020-06-20 2020-06-20 Outpatient R ERIS, [facility] [id number] Univers 10:30:00 10:30:[address] [facility] 2020-06-19 2020-06-19 Telephone ANEL Khan 1.2.840.114 [id number] Univers 00:00:00 00:00:00 [facility] 350.1.13.10 i ty of [facility] 4.2.7.2.[address] [place] [phone] [facility] [address] [place] 2020-06-18 2020-06-18 Outpatient R [facility] [id number] Univers 10:30:00 10:30:[address] [facility] [place] 2020-06-18 2020-06-18 Telemedici Faculty, Harvey Capellan [facility] 1.2.840.114 [id number] Univers 09:51:46 10:21:46 ne Visit Dio Abbott COILED COIL INSPECTOR 350.1 .13.10 ity of REGIONAL 4.2.7.2.686 [place] as MATERNAL [phone] Med ical & CHILD [address] [place] [address] 2020-06-13 2020-06-13 Emergency Altamirano [facility] 1.2.283.629 [id number] Univers 13:56:00 15:42:00 Sameer Murcia 350.1.13.10 i ty of [place].2.[place] [phone] [facility] 0[address] [place] 2020-06-11 2020-06-11 Routine Faculty, Harvey Capellan [facility] 1.2 .840.114 [id number] Univers 09:37:31 10:48:32 Carla Alegre COILED COIL INSPECTOR 350.1.13.10 ity of Visit [facility] 4.2.7.2.686 [place] as MATERNAL [phone] [facility] ica & CHILD [address] [place] [address] 2020-06-11 2020-06-11 Outpatient R [facility] [id number] Univers 09:00:00 09:00:[address] [facility] [place] 2020-06-11 2020-06-11 Orders Doctor DASILVA 1.2.840.114 [id number] Univers 00:00:00 00:00:00 Only Unassigned, MARIA ELENA 350.1.13.10 ity of [place] [facility] 4.2.7.2.[phone] [facility] 00[address] [place] 2020-06-04 2020-06-05 Telemedici Faculty, Harvey Capellan [facility] 1.2.840.114 [id number] Univers 08:18:00 14:22:03 ne Visit Dio Abbott COILED COIL INSPECTOR 350.1 .13.10 ity of AkintreOsvaldo salas REGIONAL 4.2.7.2.68 6 [place] MATERNAL [phone] Med ical & CHILD [address] [place] [address] 2020-06-04 2020-06-04 Outpatient R INO [facility] [id number] Univers 14:15:00 14:15:00 CAMRON it y of S, WHARTON [facility] 2020-05-24 2020-05-28 [facility] VIDYA Li 1.2.840.114 [id number] Univers 19:22:00 14:36:00 Encounter Aaron ARREDONDO 350.1.13.10 ity of HOSPITAL 4.2.7.2.[phone] [facility] 019 [place] 2020-05-28 2020-05-28 Outpatient R [facility] [id number] Univers 13:00:00 13:00:00 ity [facility] 2020-05-24 2020-05-24 Routine Risk, Msu-Iezkc-Zo/High [facility] 1. 2.840.114 [id number] Univers 14:23:40 16:18:10 Tania Vazquez COILED COIL INSPECTOR 350.1.13.10 ity of Visit REGIONAL 4.2.7.2.686 [place] MATERNAL [phone] [facility] ical & CHILD [address] [place] [address] 2020-05-24 2020-05-24 Outpatient R [facility] [id number] Univers 14:30:00 14:30:00 ity [facility] 2020-05-21 2020-05-21 Outpatient R ABIMBOLA GILL [facility] [id number] Univers 10:15:00 10:15:00 ity [facility] 2020-05-17 2020-05-17 Routine Risk, Cib-Ceioe-Wi/High [facility] 1. 2.840.114 [id number] Univers 14:42:13 15:09:43 Osvaldo Schulte COILED COIL INSPECTOR 350.1.13 .10 ity of Visit REGIONAL 4.2.7.2.686 [place] MATERNAL [phone] [facility] ical & CHILD 107 [facility] 2020-05-17 2020-05-17 Outpatient R [facility] [id number] Univers 15:00:00 15:00:[address] [facility] 2020-05-17 2020-05-17 Outpatient R ERIS, [facility] [id number] Univers 15:00:00 15:00:[address] o f [facility] 2020-05-16 2020-05-16 Emergency Altamirano, [facility] 1.2.600.097 [id number] Univers 17:21:00 19:33:00 Sameer Murcia 350.1.13.10 i ty [facility] 4.2.7.2.686 [place] [phone] [address] 2020-05-16 2020-05-16 Telephone Eris [facility] 1.2.840.114 [id number] Univers 00:00:00 00:00:00 Osvaldo Chisholm COILED COIL INSPECTOR 350.1.13.10 ity of REGIONAL 4.2.7.2.686 [place] MATERNAL [phone] [facility] ical & CHILD 107 [facility] 2020-05-10 2020-05-10 Orthotics Technician Ultrasound, Jaqueline [facility] 1.2 .840.114 [id number] Univers 15:41:17 16:11:17 Visit Thompson Sethi COILED COIL INSPECTOR 350.1.13.1 0 ity of REGIONAL 4.2.7.2.686 [place] MATERNAL [phone] [facility] ical & CHILD 369 [facility] 2020-05-10 2020-05-10 Outpatient P [facility] [id number] Univers 15:15:00 15:15:[address] [facility] 2020-05-08 2020-05-08 Darian Green [facility] 1.2.840.114 [id number] Univers 00:00:00 00:00:00 Management [facility] 350.1.13.10 ity of CLINICS [place].2.[place] [phone] [address] 2020-05-07 2020-05-07 Outpatient R [facility] [id number] Univers 10:00:00 10:00:[address] [facility] 2020-05-07 2020-05-07 Telemedici Faculty, Harvey [facility] 1.2.840.114 [id number] Univers 08:42:41 09:12:41 ne Visit Aaron Li COILED COIL INSPECTOR 350.1.13.10 ity of REGIONAL 4.2.7.2.686 [place] MATERNAL [phone] [facility] & CHILD [address] [place] [address] 2020-05-07 2020-05-07 Telephone [facility] 1.2.840.114 [id number] Univers 00:00:00 00:00:00 Osvaldo C COILED COIL INSPECTOR 350.1.13.10 ity of [facility] 4.2.7.2.686 [place] MATERNAL [phone] [facility] & CHILD [address] [place] [address] 2020-04-20 2020-04-20 Telephone [facility] 1.2.840.114 [id number] Univers 00:00:00 00:00:00 Osvaldo C COILED COIL INSPECTOR 350.1.13.10 ity of [facility] 4.2.7.2.686 [place] MATERNAL [phone] [facility] & [address] 2020-04-16 2020-04-16 Initial [facility] 1.2.284.326 [id number] Univers 12:54:24 14:25:19 Osvaldo C COILED COIL INSPECTOR 350.1.13.10 ity of Visit REGIONAL 4.2.7.2.686 [place] MATERNAL [phone] [facility] & CHILD [address] [place] [address] 2020-04-16 2020-04-16 Outpatient R [facility] [id number] Univers 12:30:00 12:30:[address] o f [facility] 2020-04-16 2020-04-16 Orders Doctor VIDYA 1.2.840.114 [id number] Univers 00:00:00 00:00:00 Only Unassigned, MARIA ELENA 350.1.13.10 ity of [facility] 4.2.7.2.686 [facility] [phone] [facility] 00[address] [place] 2020-04-06 2020-04-06 Emergency [facility] 1.2.871.576 [id number] Univers 15:01:00 16:55:00 Marilee [place] 350.1.13.10 ity [facility] 4.2.7.2.686 [facility] [phone] [place] 860264 [place] 2020-01-10 2020-01-10 Emergency [facility] [id number] Univers 17:11:44 22:23:00 JAYY [facility] 2019-03-25 2019-03-25 Emergency [facility] 1.2.861.915 [id number] Univers 07:56:38 11:39:00 Lenora Murcia 350.1.13.10 ity [facility] 4.2.7.2.686 [facility] [phone] [address] 2018-07-13 2018-07-13 Emergency [facility] [id number] Univers 09:57:43 13:30:00 EDDIE [facility] Results Test Description Test Time Test Comments Results Result Comments Source POCT URINALYSIS W SPECIFIC GRAVITY 2022-07-03 23:17:00 Test Item Value Reference Range Interpretation Comme nts POCT U SP GRAV (test code = 3255) 1.015 mg/dl 1.005-1.025 POCT PH U (test code = 3254) 6 mg/dl 5-8 POCT U LEUK EST (test code = 3263) trace Negative - Negative POCT U NIT (test code = 3262) pos Negative - Negative POCT U PROT (test code = 3259) neg Negative - Negative POCT U GLU (test code = 3256) Negative - Negative POCT U KETONE (test code = 3258) neg Negative - Negative POCT U UROBILI (test code = 3260) neg 0.2-1 POCT U BILI (test code = 3261) neg Negative - Negative POCT U BLD (test code = 3257) Negative - Negative POCT U COLOR (test code = 3266) yellow POCT U APPEAR (test code = 3267) cloudy Lab Interpretation (test code = 23327-2) Abnormal [facility] URINALYSIS W SPECIFIC [id number] 23:17:00 Test Item Value Reference Range Interpretation Comments POCT U SP GRAV (test code = 1.015 mg/dl 1.005-1.025 3255) POCT PH U (test code = 3254) 6 mg/dl 5-8 POCT U LEUK EST (test code = trace Negative - Negative 3263) POCT U NIT (test code = 3262) pos Negative - Negative POCT U PROT (test code = neg Negative - Negative 3259) POCT U GLU (test code = 3256) Negative - Negative POCT U KETONE (test code = neg Negative - Negative 3258) POCT U UROBILI (test code = neg 0.2-1 3260) POCT U BILI (test code = neg Negative - Negative 3261) POCT U BLD (test code = 3257) Negative - Negative POCT U COLOR (test code = yellow 3266) POCT U APPEAR (test code = cloudy 3267) Lab Interpretation (test code Abnormal = 20415-4) [facility] URINALYSIS W SPECIFIC [id number] 23:17:00 Test Item Value Reference Range Interpretation Comments POCT U SP GRAV (test code = 1.015 mg/dl 1.005-1.025 3255) POCT PH U (test code = 3254) 6 mg/dl 5-8 POCT U LEUK EST (test code = trace Negative - Negative 3263) POCT U NIT (test code = 3262) pos Negative - Negative POCT U PROT (test code = neg Negative - Negative 3259) POCT U GLU (test code = 3256) Negative - Negative POCT U KETONE (test code = neg Negative - Negative 3258) POCT U UROBILI (test code = neg 0.2-1 3260) POCT U BILI (test code = neg Negative - Negative 3261) POCT U BLD (test code = 3257) Negative - Negative POCT U COLOR (test code = yellow 3266) POCT U APPEAR (test code = cloudy 3267) Lab Interpretation (test code Abnormal = 01195-6) [facility] [id number] 23:16:00 Test Item Value Reference Range Interpretation Comments POCT PREG (test code = 1605) Negative On board controls acceptable with C Yes Line (test code = 3574) POCT PREG LOT # (test code = 3575) POCT PREG TEST DATE (test code = 3576) Lab Interpretation (test code = Normal 04713-0) [facility] [id number] 23:16:00 Test Item Value Reference Range Interpretation Comments POCT PREG (test code = 1605) Negative On board controls acceptable with C Yes Line (test code = 3574) POCT PREG LOT # (test code = 3575) POCT PREG TEST DATE (test code = 3576) Lab Interpretation (test code = Normal 62853-1) [facility] [id number] 23:16:00 Test Item Value Reference Range Interpretation Comments POCT PREG (test code = 1605) Negative On board controls acceptable with C Yes Line (test code = 3574) POCT PREG LOT # (test code = 3575) POCT PREG TEST DATE (test code = 3576) Lab Interpretation (test code = Normal 31975-8) [facility] GLUCOSE (AUTOMATED)2022-05-30 21:57:09 Test Item Value Reference Range Interpretation Comments POCT GLU (test code = [id number]) 179 mg/dL 70-110 H Lab Interpretation (test code = Abnormal 18099-2) [facility] GLUCOSE(AGE >30DAYS)2022-05-30 21:56:00 Test Item Value Reference Range Interpretation Comments POCT Glu (age>30days) (test code = 179 mg/dL 70-110 A 3342) Lab Interpretation (test code = Abnormal 95391-2) [facility] CARE VENOUS BLOOD [id number] 18:25:59 Test Item Value Reference Range Interpretation Comments PH (test code = 7.32-7.42 7847764602) PCO2 JAIDA (test code = See_Comment H [Auto mated message] [id number]) The system [employer] generated this result transmitted ref erence range: 41 - 51 mmHg. The reference r junito was not used to interpret this result as normal/abnor mal. PO2 JAIDA (test code = See_Comment [Autom ated message] [id number]) The system [employer] generated this result transmitted ref erence range: 25 - 40 mmHg. The reference r junito was not used to interpret this result as normal/abnor mal. HCO3 JAIDA (test code = See_Comment H [Auto mated message] [id number]) The system [employer] generated this result transmitted ref erence range: 24 - 28 mEq/L. The reference r junito was not used to interpret this result as normal/abnor mal. AC VBE(BEAKER) (test mEq/L code = 1558980256) Lab Interpretation (test Abnormal code = 38853-1) [facility] [id number] 18:24:00 Test Item Value Reference Range Interpretation Comments POCT PREG (test code = 1605) negative On board controls acceptable with yes C Line (test code = 3574) POCT PREG LOT # (test code = 3575) [id number] POCT PREG TEST DATE (test 10/01/2023 code = 3576) Lab Interpretation (test code = Normal 48328-4) [facility] GLUCOSE (AUTOMATED)2022-05-30 18:08:37 Test Item Value Reference Range Interpretation Comments POCT GLU (test code = 5432296347) 338 mg/dL 70-110 H Lab Interpretation (test code = Abnormal 65397-4) [facility] PELVIC (TRANSVAGINAL ONLY)2018-03-16 14:02:32CLINICAL INDICATION: R10.2 Pelvic and perineal painTECHNIQUE:Real-time and doppler transvaginal ultrasound evaluation of the pelvis was performed on the Sand 9 PreDrifty.Comparison study: No prior study.FINDINGS:Uterus: 8.2 x 3.9 x 5.1 cm. Homogeneous echotexture without focal mass. Small volume fluid within the endometrial canal. Endometrial stripe: 7.0 mm. Right ovary: 4.2 x 1.9 x 3.7 cm with a volume of 15.6 ml. Several small follicles. Left Ovary: 3.5 x 2.1 x 2.6 cm with a volume of 9.9ml. Simple cyst measuring 1.8 x 1.5 x 1.5 cm. Adnexa: No free fluid or adnexal mass.IMPRESSION:1. Simple, 1.8 cm left ovarian cyst.2. No other significant findings.POCT-GLUCOSE [id number] 10:41:00 Test Item Value Reference Range Interpretation Comments POC-GLUCOSE METER 230 mg/dL 70-110 H TESTED AT [address] ([facility]) (test code [employer] [facility] = 1538) [place] [address] POCT-GLUCOSE [id number] 08:32:00 Test Item Value Reference Range Interpretation Comments POC-GLUCOSE METER 70 mg/dL 70-110 TESTED AT [address] ([facility]) (test code = [employer] [facility] 1538) [place] [address] POCT-GLUCOSE [id number] 05:13:00 Test Item Value Reference Range Interpretation Comments POC-GLUCOSE METER 152 mg/dL 70-110 H TESTED AT [address] ([facility]) (test code [employer] [facility] = 1538) [place] [address] POCT-GLUCOSE [id number] 04:14:00 Test Item Value Reference Range Interpretation Comments POC-GLUCOSE METER 55 mg/dL 70-110 L TESTED AT [address] ([facility]) (test code = [employer] [facility] 1538) [place] [address] POCT-GLUCOSE [id number] 20:37:00 Test Item Value Reference Range Interpretation Comments POC-GLUCOSE METER 204 mg/dL 70-110 H TESTED AT [address] ([facility]) (test code [employer] [facility] = 1538) [place] [address] POCT-GLUCOSE [id number] 19:01:00 Test Item Value Reference Range Interpretation Comments POC-GLUCOSE METER 88 mg/dL 70-110 TESTED AT [address] ([facility]) (test code = [employer] [facility] 1538) [place] [address] POCT-GLUCOSE [id number] 17:27:00 Test Item Value Reference Range Interpretation Comments POC-GLUCOSE METER 253 mg/dL 70-110 H TESTED AT [address] ([facility]) (test code [facility] = 1538) [place] [address] POCT-GLUCOSE [id number] 15:36:00 Test Item Value Reference Range Interpretation Comments POC-GLUCOSE METER 366 mg/dL 70-110 H TESTED AT [facility] [address] (BEAKER) (test code [facility] = 1538) [place] [address] POCT-GLUCOSE [id number] 11:51:00 Test Item Value Reference Range Interpretation Comments POC-GLUCOSE METER 194 mg/dL 70-110 H TESTED AT [facility] [address] (BEAKER) (test code [facility] = 1538) [place] [address] POCT-GLUCOSE [id number] 10:19:00 Test Item Value Reference Range Interpretation Comments POC-GLUCOSE METER 147 mg/dL 70-110 H TESTED AT [facility] [address] (BEAKER) (test code [facility] = 1538) [place] [address] BASIC METABOLIC [id number] 09:23:00 Test Item Value Reference Range Interpretation [...] NOT APPLICABLE FOR DIALYSIS PATIEN TS. POCT-GLUCOSE [id number] 08:02:00 Test Item Value Reference Range Interpretation Comments POC-GLUCOSE METER 161 mg/dL 70-110 H TESTED AT [facility] [address] (BEAKER) (test code [facility] = 1538) [place] [address] POCT-GLUCOSE [id number] 07:03:00 Test Item Value Reference Range Interpretation Comments POC-GLUCOSE METER 151 mg/dL 70-110 H TESTED AT [facility] [address] (BEAKER) (test code [facility] = 1538) [place] [address] POCT-GLUCOSE [id number] 05:08:00 Test Item Value Reference Range Interpretation Comments POC-GLUCOSE METER 158 mg/dL 70-110 H TESTED AT [facility] [address] (BEAKER) (test code [facility] = 1538) [place] [address] BASIC METABOLIC [id number] 04:51:00 Test Item Value Reference Range Interpretation [...] NOT APPLICABLE FOR DIALYSIS PATIEN TS. POCT-GLUCOSE [id number] 03:03:00 Test Item Value Reference Range Interpretation Comments POC-GLUCOSE METER 153 mg/dL 70-110 H TESTED AT [facility] [address] (BEAKER) (test code [facility] = 1538) [place] [address] POCT-GLUCOSE [id number] 02:09:00 Test Item Value Reference Range Interpretation Comments POC-GLUCOSE METER 159 mg/dL 70-110 H TESTED AT [facility] [address] (BEAKER) (test code [facility] = 1538) [place] [address] POCT-GLUCOSE [id number] 01:08:00 Test Item Value Reference Range Interpretation Comments POC-GLUCOSE METER 174 mg/dL 70-110 H TESTED AT [facility] [address] (BEAKER) (test code [facility] = 1538) [place] [address] BASIC METABOLIC [id number] 00:38:00 Test Item Value Reference Range Interpretation [...] NOT APPLICABLE FOR DIALYSIS PATIEN TS. POCT-GLUCOSE [id number] 00:37:00 Test Item Value Reference Range Interpretation Comments POC-GLUCOSE METER 198 mg/dL 70-110 H TESTED AT [facility] [address] (BEAKER) (test code [facility] = 1538) [place] [address] POCT-GLUCOSE [id number] 00:14:00 Test Item Value Reference Range Interpretation Comments POC-GLUCOSE METER 162 mg/dL 70-110 H TESTED AT [facility] [address] (BEAKER) (test code [facility] = 1538) [place] [address] POCT-GLUCOSE [id number] 23:39:00 Test Item Value Reference Range Interpretation Comments POC-GLUCOSE METER 149 mg/dL 70-110 H TESTED AT [facility] [address] (BEAKER) (test code [facility] = 1538) [place] [address] POCT-GLUCOSE [id number] 23:10:00 Test Item Value Reference Range Interpretation Comments POC-GLUCOSE METER 134 mg/dL 70-110 H TESTED AT [facility] [address] (BEAKER) (test code [facility] = 1538) [place] [address] POCT-GLUCOSE [id number] 22:41:00 Test Item Value Reference Range Interpretation Comments POC-GLUCOSE METER 112 mg/dL 70-110 H TESTED AT [facility] [address] (BEAKER) (test code [facility] = 1538) [place] [address] POCT-GLUCOSE [id number] 21:59:00 Test Item Value Reference Range Interpretation Comments POC-GLUCOSE METER 95 mg/dL 70-110 TESTED AT [facility] [address] [facility] (test code = [facility] [place] [address] POCT-GLUCOSE [id number] 21:39:00 Test Item Value Reference Range Interpretation Comments POC-GLUCOSE METER 110 mg/dL 70-110 TESTED AT [facility] [address] (BEAKER) (test code [facility] = 1538) [place] [address] POCT-GLUCOSE [id number] 21:07:00 Test Item Value Reference Range Interpretation Comments POC-GLUCOSE METER 114 mg/dL 70-110 H TESTED AT [facility] [address] (BEAKER) (test code [facility] = 1538) [place] [address] BASIC METABOLIC [id number] 20:47:00 Test Item Value Reference Range Interpretation [...] NOT APPLICABLE FOR DIALYSIS PATIEN TS. POCT-GLUCOSE [id number] 20:17:00 Test Item Value Reference Range Interpretation Comments POC-GLUCOSE METER 176 mg/dL 70-110 H TESTED AT [facility] [address] (BEAKER) (test code [facility] = 1538) [place] [address] [id number] 19:09:00 Test Item Value Reference Range Interpretation Comments GLUCOSE RANDOM (BEAKER) (test code 230 mg/dL 70-110 H = 652) If last glucose was less than 500, may do bedside glucose instead of serum glucose.POCT-GLUCOSE [id number] 18:53:00 Test Item Value Reference Range Interpretation Comments POC-GLUCOSE METER 212 mg/dL 70-110 H TESTED AT [facility] [address] [facility] (test code [facility] = 1538) [place] [address] POCT-GLUCOSE [id number] 17:14:00 Test Item Value Reference Range Interpretation Comments POC-GLUCOSE METER 145 mg/dL 70-110 H TESTED AT [facility] [address] (BEAKER) (test code [facility] = 1538) [place] [address] BASIC METABOLIC [id number] 16:51:00 Test Item Value Reference Range Interpretation [...] may do bedside glucose instead of serum glucose.[id number] 16:47:00 Test Item Value Reference Range Interpretation Comments GLUCOSE RANDOM (BEAKER) (test code 126 mg/dL 70-110 H = 652) If last glucose was less than 500, may do bedside glucose instead of serum glucose.POCT-GLUCOSE [id number] 16:04:00 Test Item Value Reference Range Interpretation Comments POC-GLUCOSE METER 119 mg/dL 70-110 H TESTED AT [facility] [address] ([facility]) (test code [facility] = 1538) [place] [address] [id number] 14:30:00 Test Item Value Reference Range Interpretation Comments POTASSIUM (BEAKER) (test code = 3.9 meq/L 3.5-5.5 379) If last glucose was less than 500, may do bedside glucose instead of serum glucose.[id number] 14:30:00 Test Item Value Reference Range Interpretation Comments GLUCOSE RANDOM ([facility]) (test code 190 mg/dL 70-110 H = 652) If last glucose was less than 500, may do bedside glucose instead of serum glucose.POCT-GLUCOSE [id number] 14:05:00 Test Item Value Reference Range Interpretation Comments POC-GLUCOSE METER 194 mg/dL 70-110 H TESTED AT [facility] [address] ([facility]) (test code [facility] = 1538) [place] [address] POCT-GLUCOSE [id number] 13:15:00 Test Item Value Reference Range Interpretation Comments POC-GLUCOSE METER 229 mg/dL 70-110 H TESTED AT [facility] [address] ([facility]) (test code [facility] = 1538) [place] [address] BASIC METABOLIC [id number] 12:44:00 Test Item Value Reference Range Interpretation [...] may do bedside glucose instead of serum glucose.[id number] 12:43:00 Test Item Value Reference Range Interpretation Comments GLUCOSE RANDOM (BEAKER) (test code 258 mg/dL 70-110 H = 652) If last glucose was less than 500, may do bedside glucose instead of serum glucose.POCT-GLUCOSE [id number] 12:03:00 Test Item Value Reference Range Interpretation Comments POC-GLUCOSE METER 238 mg/dL 70-110 H TESTED AT [facility] [address] ([facility] (test code [facility] = 1538) [place] [address] POCT-GLUCOSE [id number] 11:05:00 Test Item Value Reference Range Interpretation Comments POC-GLUCOSE METER 261 mg/dL 70-110 H TESTED AT [facility] [address] ([facility] (test code [facility] = 1538) [place] [address] HEMOGLOBIN [id number] 10:07:00 Test Item Value Reference Range Interpretation Comments HEMOGLOBIN A1C (BEAKER) (test code = > % 4.3-6.1 H 368) [id number] 10:00:00 Test Item Value Reference Range Interpretation Comments GLUCOSE RANDOM (BEAKER) (test code 441 mg/dL 70-110 HH = 652) If last glucose was less than 500, may do bedside glucose instead of serum glucose.[id number] 09:55:00 Test Item Value Reference Range Interpretation Comments POTASSIUM (BEAKER) (test code = 4.1 meq/L 3.5-5.5 379) If last glucose was less than 500, may do bedside glucose instead of serum glucose.POCT-GLUCOSE [id number] 09:18:00 Test Item Value Reference Range Interpretation Comments POC-GLUCOSE METER > mg/dL 70-110 HH OUTSIDE ME ASURING (BEAKER) (test code [facility] AT [facility] [address] = 1538) [facility] [address] [id number] 09:15:00 Test Item Value Reference Range Interpretation Comments GLUCOSE RANDOM (BEAKER) (test code 585 mg/dL 70-110 HH = 652) If last glucose was less than 500, may do bedside glucose instead of serum glucose.COMPREHENSIVE METABOLIC [id number] 08:30:00 Test Item Value Reference Range Interpretation [...] PATIEN TS. CBC W/PLT COUNT & AUTO [id number] 08:29:00 Test Item Value Reference Range Interpretation [...] K/ L 0.00-0.20 (test code = 417) [id number] 08:25:00 Test Item Value Reference Range Interpretation Comments PHOSPHORUS (BEAKER) (test code = 4.0 mg/dL 2.5-4.5 604) [id number] 08:25:00 Test Item Value Reference Range Interpretation Comments MAGNESIUM (BEAKER) (test code = 2.0 mg/dL 1.5-3.0 627) SCREEN, [id number] 08:16:00 Test Item Value Reference Range Interpretation Comments TEST URINE (BEAKER) (test Negative code = 583) URINALYSIS W/ [id number] 08:16:00 Test Item Value Reference Range Interpretation [...] Rare SOURCE(BEAKER) (test code = 2795) KETONE, [id number] 08:09:00 Test Item Value Reference Range Interpretation Comments KETONES, BLOOD (BEAKER) (test code 6.1 mmol/L <0.4 H = 1103) PH, [id number] 08:08:00 Test Item Value Reference Range Interpretation Comments PH VENOUS (BEAKER) (test code = 701) 7.18 7.32-7.42 LL BLOOD [id number] 13:00:00 Test Item Value Reference Range Interpretation Comments CULTURE (BEAKER) (test No growth in 5 days code = 1095) BLOOD [id number] 13:00:00 Test Item Value Reference Range Interpretation Comments CULTURE (BEAKER) (test No growth in 5 days code = 1095) POCT-GLUCOSE [id number] 17:12:00 Test Item Value Reference Range Interpretation Comments POC-GLUCOSE METER 136 mg/dL 70-[address] [place] [address] [address] (BEAKER) (test code [facility] = 1538) [place] [address] POCT-GLUCOSE [id number] 16:37:00 Test Item Value Reference Range Interpretation Comments POC-GLUCOSE METER 45 mg/dL 70-[address] [place] [address] [address] (BEAKER) (test code = [facility]38) [place] [address] POCT-GLUCOSE [id number] 11:32:00 Test Item Value Reference Range Interpretation Comments POC-GLUCOSE METER 98 mg/dL 70-110 TESTED AT [facility] [address] (BEAKER) (test code = [facility] 1538) [place] [address] POCT-GLUCOSE [id number] 06:45:00 Test Item Value Reference Range Interpretation Comments POC-GLUCOSE METER 85 mg/dL 70-110 TESTED AT [facility] [address] (BEAKER) (test code = [facility] 1538) [place] [address] [id number] 06:25:00 Test Item Value Reference Range Interpretation Comments PHOSPHORUS (BEAKER) (test code = 2.4 mg/dL 2.5-4.5 L 604) [id number] 06:25:00 Test Item Value Reference Range Interpretation Comments MAGNESIUM (BEAKER) (test code = 2.4 mg/dL 1.5-3.0 627) BASIC METABOLIC [id number] 06:25:00 Test Item Value Reference Range Interpretation [...] PATIEN TS. CBC W/PLT COUNT & AUTO [id number] 05:58:00 Test Item Value Reference Range Interpretation [...] L 0.00-0.20 (test code = 417) POCT-GLUCOSE [id number] 05:38:00 Test Item Value Reference Range Interpretation Comments POC-GLUCOSE METER 102 mg/dL 70-110 TESTED AT [facility] [address] (BEAKER) (test code [facility] = 1538) [place] [address] POCT-GLUCOSE [id number] 03:29:00 Test Item Value Reference Range Interpretation Comments POC-GLUCOSE METER 163 mg/dL 70-110 H TESTED AT [facility] [address] (BEAKER) (test code [facility] = 1538) [place] [address] POCT-GLUCOSE [id number] 03:29:00 Test Item Value Reference Range Interpretation Comments POC-GLUCOSE METER 155 mg/dL 70-110 H TESTED AT [facility] [address] (BEAKER) (test code [facility] = 1538) [place] [address] BASIC METABOLIC [id number] 01:42:00 Test Item Value Reference Range Interpretation [...] S NOT APPLICABLE FOR DIALYSIS PATIEN TS. [id number] 01:39:00 Test Item Value Reference Range Interpretation Comments PHOSPHORUS (BEAKER) (test code = 2.1 mg/dL 2.5-4.5 L 604) [id number] 01:39:00 Test Item Value Reference Range Interpretation Comments MAGNESIUM (BEAKER) (test code = 2.0 mg/dL 1.5-3.0 627) POCT-GLUCOSE [id number] 01:19:00 Test Item Value Reference Range Interpretation Comments POC-GLUCOSE METER 152 mg/dL 70-110 H TESTED AT [facility] [address] (BEAKER) (test code [employer] [facility] = 1538) [place] [address] POCT-GLUCOSE [id number] 01:07:00 Test Item Value Reference Range Interpretation Comments POC-GLUCOSE METER 145 mg/dL 70-110 H TESTED AT [facility] [address] (BEAKER) (test code [employer] [facility] = 1538) [place] [address] POCT-GLUCOSE [id number] 01:07:00 Test Item Value Reference Range Interpretation Comments POC-GLUCOSE METER 165 mg/dL 70-110 H TESTED AT [facility] [address] (BEAKER) (test code [employer] [facility] = 1538) [place] [address] POCT-GLUCOSE [id number] 01:07:00 Test Item Value Reference Range Interpretation Comments POC-GLUCOSE METER 163 mg/dL 70-110 H TESTED AT [facility] [address] (BEAKER) (test code [facility] = 1538) [place] [address] BASIC METABOLIC [id number] 20:59:00 Test Item Value Reference Range Interpretation [...] S NOT APPLICABLE FOR DIALYSIS PATIEN TS. [id number] 20:58:00 Test Item Value Reference Range Interpretation Comments MAGNESIUM (BEAKER) 1.8 mg/dL 1.5-3.0 Specimen slightly (test code = 627) hemolyzed [id number] 20:58:00 Test Item Value Reference Range Interpretation Comments PHOSPHORUS (BEAKER) 2.2 mg/dL 2.5-4.5 L Specimen slightly (test code = 604) hemolyzed POCT-GLUCOSE [id number] 18:02:00 Test Item Value Reference Range Interpretation Comments POC-GLUCOSE METER 176 mg/dL 70-110 H TESTED AT [facility] [address] (BEAKER) (test code [facility] = 1538) [place] [address] [id number] 16:46:00 Test Item Value Reference Range Interpretation Comments MAGNESIUM (BEAKER) 2.1 mg/dL 1.5-3.0 Specimen slightly (test code = 627) hemolyzed [id number] 16:46:00 Test Item Value Reference Range Interpretation Comments PHOSPHORUS (BEAKER) 2.1 mg/dL 2.5-4.5 L Specimen slightly (test code = 604) hemolyzed BASIC METABOLIC [id number] 16:46:00 Test Item Value Reference Range Interpretation [...] NOT APPLICABLE FOR DIALYSIS PATIEN TS. CALCIUM, [id number] 16:21:00 Test Item Value Reference Range Interpretation Comments CALCIUM IONIZED (BEAKER) (test 1.13 mmol/L 1.12-1.27 code = 698) PH, BLOOD (BEAKER) (test code = 7.30 1810) Check serum Ionized Calcium level after 4 hours after IV Calcium replacement. POCT-GLUCOSE [id number] 16:12:00 Test Item Value Reference Range Interpretation Comments POC-GLUCOSE METER 191 mg/dL 70-110 H TESTED AT [facility] [address] (BEAKER) (test code [facility] = 1538) [place] [address] POCT-GLUCOSE [id number] 15:20:00 Test Item Value Reference Range Interpretation Comments POC-GLUCOSE METER 181 mg/dL 70-110 H TESTED AT [facility] [address] (BEAKER) (test code [facility] = 1538) [place] [address] POCT-GLUCOSE [id number] 14:15:00 Test Item Value Reference Range Interpretation Comments POC-GLUCOSE METER 169 mg/dL 70-110 H TESTED AT [facility] [address] (BEAKER) (test code [facility] = 1538) [place] [address] BASIC METABOLIC [id number] 13:44:00 Test Item Value Reference Range Interpretation [...] NOT APPLICABLE FOR DIALYSIS PATIEN TS. POCT-GLUCOSE [id number] 13:24:00 Test Item Value Reference Range Interpretation Comments POC-GLUCOSE METER 157 mg/dL 70-110 H TESTED AT [facility] [address] (BEAKER) (test code [employer] [facility] = 1538) [place] [address] POCT-GLUCOSE [id number] 12:34:00 Test Item Value Reference Range Interpretation Comments POC-GLUCOSE METER 131 mg/dL 70-110 H TESTED AT [facility] [address] (BEAKER) (test code [employer] [facility] = 1538) [place] [address] POCT-GLUCOSE [id number] 11:39:00 Test Item Value Reference Range Interpretation Comments POC-GLUCOSE METER 160 mg/dL 70-110 H TESTED AT [facility] [address] (BEAKER) (test code [employer] [facility] = 1538) [place] [address] [id number] 11:13:00 Test Item Value Reference Range Interpretation Comments PROCALCITONIN (BEAKER) (test code = < ng/mL <0.05 3036) SEPSIS RISK (ng/mL)Low: 0.05-0.50Intermediate: 0.51-2.00High: >=2.01POCT- GLUCOSE [id number] 10:40:00 Test Item Value Reference Range Interpretation Comments POC-GLUCOSE METER 202 mg/dL 70-110 H TESTED AT [facility] [address] (BEAKER) (test code [facility] = 1538) [place] [address] [id number] 10:04:00 Test Item Value Reference Range Interpretation Comments PHOSPHORUS (BEAKER) 1.4 mg/dL 2.5-4.5 LL Specimen slightly (test code = 604) hemolyzed BASIC METABOLIC [id number] 10:04:00 Test Item Value Reference Range Interpretation [...] S NOT APPLICABLE FOR DIALYSIS PATIEN TS. [id number] 10:02:00 Test Item Value Reference Range Interpretation Comments MAGNESIUM (BEAKER) 1.8 mg/dL 1.5-3.0 Specimen slightly (test code = 627) hemolyzed POCT-GLUCOSE [id number] 09:36:00 Test Item Value Reference Range Interpretation Comments POC-GLUCOSE METER 212 mg/dL 70-110 H TESTED AT [facility] [address] ([facility]) (test code [facility] = 1538) [place] [address] POCT-GLUCOSE [id number] 08:43:00 Test Item Value Reference Range Interpretation Comments POC-GLUCOSE METER 268 mg/dL 70-110 H TESTED AT [facility] [address] ([facility]) (test code [facility] = 1538) [place] [address] [id number] 07:47:00 Test Item Value Reference Range Interpretation Comments POTASSIUM ([facility] [facility]) (test code = 4.0 meq/L 3.5-5.5 379) If last glucose was less than 500, may do bedside glucose instead of serum glucose.[id number] 07:47:00 Test Item Value Reference Range Interpretation Comments GLUCOSE RANDOM ([facility]) (test code 370 mg/dL 70-110 H = 652) If last glucose was less than 500, may do bedside glucose instead of serum glucose.POCT-GLUCOSE [id number] 07:31:00 Test Item Value Reference Range Interpretation Comments POC-GLUCOSE METER 328 mg/dL 70-110 H Notified Rosalva Jama MD/TESTED AT ([facility]) (test code [facility] [address] [facility] [address] = 1538) [facility] [place] [address] POCT-GLUCOSE [id number] 07:31:00 Test Item Value Reference Range Interpretation Comments POC-GLUCOSE METER 414 mg/dL 70-110 HH TESTED AT [facility] [address] ([facility]) (test code [facility] = 1538) [place] [address] [id number] 06:57:00 Test Item Value Reference Range Interpretation Comments POTASSIUM ([facility]) (test code = 4.5 meq/L 3.5-5.5 379) [id number] 06:51:00 Test Item Value Reference Range Interpretation Comments GLUCOSE RANDOM ([facility]) (test code 523 mg/dL 70-110 HH = 652) If last glucose was less than 500, may do bedside glucose instead of serum glucose.URINALYSIS W/ REFLEX URINE [id number] 06:29:00 Test Item Value Reference Range Interpretation [...] (test code = 2795) RAPID INFLUENZA A&B [id number] 06:13:00 Test Item Value Reference Range Interpretation Comments RAPID INFLUENZA A AG (BEAKER) (test Negative Negative code = 1622) RAPID INFLUENZA B AG (BEAKER) (test Negative Negative code = 1623) SCREEN, [id number] 05:58:00 Test Item Value Reference Range Interpretation Comments TEST URINE (BEAKER) (test Negative code = 583) RAD, CHEST, 1 VIEW, NON [id number] 05:52:00Reason for exam:->EMESISReason for exam:->BLOOD SUGAR PROBLEMShould this be performed at the bedside?- >YesIs the patient ?->NoFINAL REPORT Comparison examination: 04/07/2017 No pneumothorax, focal pulmonary consolidation, or significant pleural effusion. Normal cardiomediastinal contours. Normal skeleton and soft tissues. Impression: No acute abnormality. Signed: Joesph Lopezeport Verified Date/Time: 05/18/2017 05:52:18 Reading Location: [address] Transitional Reading Room HEMOGLOBIN [id number] 05:49:00 Test Item Value Reference Range Interpretation Comments HEMOGLOBIN A1C (BEAKER) (test code = 13.2 % 4.3-6.1 H 368) BASIC METABOLIC [id number] 05:28:00 Test Item Value Reference Range Interpretation [...] bedside glucose instead of serum glucose.HEPATIC FUNCTION [id number] 05:27:00 Test Item Value Reference Range Interpretation [...] glucose instead of serum glucose.Specimen slightlylipemicBLOOD GAS, [id number] 05:04:00 Test Item Value Reference Range Interpretation [...] (test code = 1819) 21.0 % KETONE, [id number] 05:03:00 Test Item Value Reference Range Interpretation Comments KETONES, BLOOD (BEAKER) (test code 5.8 mmol/L <0.4 H = 1103) CBC W/PLT COUNT & AUTO [id number] 05:02:00 Test Item Value Reference Range Interpretation [...] L 0.00-0.20 (test code = 417) POCT-GLUCOSE [id number] 04:49:00 Test Item Value Reference Range Interpretation Comments POC-GLUCOSE METER > mg/dL 70-110 HH OUTSIDE ME ASURING (BEAKER) (test code RANGETES PRACHI AT [facility] [address] = 1538) [facility] [address] BLOOD [id number] 00:00:00 Test Item Value Reference Range Interpretation Comments CULTURE (BEAKER) (test No growth in 5 days code = 1095) BLOOD [id number] 00:00:00 Test Item Value Reference Range Interpretation Comments CULTURE (BEAKER) (test No growth in 5 days code = 1095) URINE [id number] 15:21:00 Test Item Value Reference Range Interpretation Comments CULTURE (BEAKER) (test >100,000 col/mL skin code = 1095) christophe POCT-GLUCOSE [id number] 14:37:00 Test Item Value Reference Range Interpretation Comments POC-GLUCOSE METER 326 mg/dL 70-110 H TESTED AT [facility] 67 (BEAKER) (test code = SHARATH [place] 1538) [address] POCT-GLUCOSE [id number] 13:26:00 Test Item Value Reference Range Interpretation Comments POC-GLUCOSE METER 331 mg/dL 70-110 H TESTED AT [facility] 6720 (BEAKER) (test code = SHARATH [place] [facility] 1538) [address] CBC W/PLT COUNT & AUTO [id number] 11:34:00 Test Item Value Reference Range Interpretation [...] COUNTED (AKER) (test code = 1351) POCT-GLUCOSE [id number] 11:18:00 Test Item Value Reference Range Interpretation Comments POC-GLUCOSE METER 349 mg/dL 70-110 H TESTED AT [place] [address] ([facility]) (test code = [facility] 1538) [address] POCT-GLUCOSE [id number] 09:34:00 Test Item Value Reference Range Interpretation Comments POC-GLUCOSE METER 61 mg/dL 70-110 L TESTED AT [place] [address] ([facility]) (test code = [facility] [address] 1538) POCT-GLUCOSE [id number] 08:48:00 Test Item Value Reference Range Interpretation Comments POC-GLUCOSE METER 79 mg/dL 70-110 TESTED AT [place] [address] ([facility]) (test code = [facility] [address] 1538) BASIC METABOLIC [id number] 06:12:00 Test Item Value Reference Range Interpretation [...] 358) GLUCOSE RANDOM 387 mg/dL 70-105 H ([facility]) (test code = 652) CALCIUM (BEAKER) 8.7 mg/dL 8.4-10.2 (test code = 697) EGFR ([facility]) (test 89 mL/min/1.73 ESTIMA PRACHI GFR IS code = 1092) sq m NOT ACCURATE CREATININE CLEARANCE IN PREDICTING GLOMERULAR FILTRATION RATE . ESTIMATED GFR I S NOT APPLICABLE FOR DIALYSIS PATIEN TS. KETONE, [id number] 05:43:00 Test Item Value Reference Range Interpretation Comments KETONES, BLOOD ([facility]) (test code 0.1 mmol/L <0.4 = 1103) POCT-GLUCOSE [id number] 05:39:00 Test Item Value Reference Range Interpretation Comments POC-GLUCOSE METER 366 mg/dL 70-110 H TESTED AT [place] [address] ([facility]) (test code = SHARATH [place] 1538) [address] POCT-GLUCOSE [id number] 22:32:00 Test Item Value Reference Range Interpretation Comments POC-GLUCOSE METER 302 mg/dL 70-110 H TESTED AT [place] [address] ([facility]) (test code = SHARATH [place] 1538) [address] POCT-GLUCOSE [id number] 19:15:00 Test Item Value Reference Range Interpretation Comments POC-GLUCOSE METER 273 mg/dL 70-110 H TESTED AT [place] [address] ([facility]) (test code = [employer] [place] 1538) [address] POCT-GLUCOSE [id number] 17:49:00 Test Item Value Reference Range Interpretation Comments POC-GLUCOSE METER 174 mg/dL 70-110 H TESTED AT [place] [address] ([facility]) (test code = [employer] [place] 1538) [address] POCT-GLUCOSE [id number] 17:02:00 Test Item Value Reference Range Interpretation Comments POC-GLUCOSE METER 171 mg/dL 70-110 H TESTED AT [place] [address] ([facility]) (test code = CIARASRUTHI [place] 1538) [address] POCT-GLUCOSE [id number] 15:17:00 Test Item Value Reference Range Interpretation Comments POC-GLUCOSE METER 135 mg/dL 70-110 H TESTED AT [place] [address] ([facility]) (test code = SHARATH Blackwell [facility] 1538) [address] POCT-GLUCOSE [id number] 13:10:00 Test Item Value Reference Range Interpretation Comments POC-GLUCOSE METER 61 mg/dL 70-110 L TESTED AT [place] [id number] ([facility]) (test code = SHARATH [place]well [facility] [address] 1538) POCT-GLUCOSE [id number] 11:21:00 Test Item Value Reference Range Interpretation Comments POC-GLUCOSE METER 57 mg/dL 70-110 L Notified R Evita DAVIS/TESTED AT ([facility]) (test code = [address] 1538) [facility] [address] POCT-GLUCOSE [id number] 08:02:00 Test Item Value Reference Range Interpretation Comments POC-GLUCOSE METER 68 mg/dL 70-110 L Notified Rosalva Jama MD/TESTED AT ([facility]) (test code = [address] 1538) [facility] 7703 0 CBC W/PLT COUNT & AUTO [id number] 08:02:00 Test Item Value Reference Range Interpretation [...] PERCENT (BEAKER) (test code = 2801) POCT-GLUCOSE [id number] 06:58:00 Test Item Value Reference Range Interpretation Comments POC-GLUCOSE METER 95 mg/dL 70-110 TESTED AT [place] [address] ([facility]) (test code = [facility] [address] 1538) POCT-GLUCOSE [id number] 06:17:00 Test Item Value Reference Range Interpretation Comments POC-GLUCOSE METER 150 mg/dL 70-110 H TESTED AT [place] [address] ([facility]) (test code = [facility] 1538) [address] POCT-GLUCOSE [id number] 05:18:00 Test Item Value Reference Range Interpretation Comments POC-GLUCOSE METER 101 mg/dL 70-110 TESTED AT [place] [address] ([facility]) (test code = [facility] 1538) [address] POCT-GLUCOSE [id number] 05:07:00 Test Item Value Reference Range Interpretation Comments POC-GLUCOSE METER 119 mg/dL 70-110 H TESTED AT [place] [address] ([facility]) (test code = [facility] 1538) [address] BASIC METABOLIC [id number] 04:52:00 Test Item Value Reference Range Interpretation [...] NOT APPLICABLE FOR DIALYSIS PATIEN TS. POCT-GLUCOSE [id number] 04:05:00 Test Item Value Reference Range Interpretation Comments POC-GLUCOSE METER 48 mg/dL 70-110 L TESTED AT [place] [address] ([facility]) (test code = SHAR[facility] [place] [facility] [address] 1538) POCT-GLUCOSE [id number] 02:30:00 Test Item Value Reference Range Interpretation Comments POC-GLUCOSE METER 181 mg/dL 70-110 H TESTED AT [place] [address] ([facility]) (test code = SHARATH Blackwell [facility] 1538) [address] POCT-GLUCOSE [id number] 02:10:00 Test Item Value Reference Range Interpretation Comments POC-GLUCOSE METER 37 mg/dL 70-110 LL Will Repea t Test/TESTED (BEAKER) (test code = AT [facility] [address] [place] [address] 1538) [facility] 7[address] 0 POCT-GLUCOSE [id number] 01:07:00 Test Item Value Reference Range Interpretation Comments POC-GLUCOSE METER 87 mg/dL 70-110 TESTED AT [place] [address] [facility] (test code = SHARATH [place] [facility] [address] 1538) BASIC METABOLIC [id number] 00:44:00 Test Item Value Reference Range Interpretation [...] NOT APPLICABLE FOR DIALYSIS PATIEN TS. POCT-GLUCOSE [id number] 00:30:00 Test Item Value Reference Range Interpretation Comments POC-GLUCOSE METER 96 mg/dL 70-110 TESTED AT [place] [address] ([facility]) (test code = [facility] [address] 1538) POCT-GLUCOSE [id number] 23:54:00 Test Item Value Reference Range Interpretation Comments POC-GLUCOSE METER 91 mg/dL 70-110 TESTED AT [place] [address] ([facility]) (test code = [facility] [address] 1538) POCT-GLUCOSE [id number] 23:12:00 Test Item Value Reference Range Interpretation Comments POC-GLUCOSE METER 48 mg/dL 70-110 L TESTED AT [place] [address] [facility] (test code = [facility] [address] 1538) POCT-GLUCOSE [id number] 21:58:00 Test Item Value Reference Range Interpretation Comments POC-GLUCOSE METER 94 mg/dL 70-110 TESTED AT [place] [address] ([facility] (test code = [facility] [address] 1538) BASIC METABOLIC [id number] 21:08:00 Test Item Value Reference Range Interpretation [...] NOT APPLICABLE FOR DIALYSIS PATIEN TS. POCT-GLUCOSE [id number] 20:57:00 Test Item Value Reference Range Interpretation Comments POC-GLUCOSE METER 165 mg/dL 70-110 H TESTED AT [facility] 6720 (BEAKER) (test code = SHAR[facility] [place] [facility] 1538) [address] [id number] 20:55:00 Test Item Value Reference Range Interpretation Comments POTASSIUM (BEAKER) (test code = 3.6 meq/L 3.5-5.1 379) URINALYSIS W/ [id number] 20:40:00 Test Item Value Reference Range Interpretation [...] 516) SOURCE(BEAKER) (test code = 2795) POCT-GLUCOSE [id number] 19:59:00 Test Item Value Reference Range Interpretation Comments POC-GLUCOSE METER 282 mg/dL 70-110 H TESTED AT [facility] 6720 (BEAKER) (test code = [facility] [place] [facility] 1538) [address] POCT-GLUCOSE [id number] 19:02:00 Test Item Value Reference Range Interpretation Comments POC-GLUCOSE METER 374 mg/dL 70-110 H Notified R Evita DAVIS/TESTED (BEAKER) (test code = AT [facility] 67[address] [facility] 1538) [facility] 7703 0 CBC W/PLT COUNT & AUTO [id number] 18:56:00 Test Item Value Reference Range Interpretation [...] PERCENT (BEAKER) (test code = 2801) POCT-GLUCOSE [id number] 18:03:00 Test Item Value Reference Range Interpretation Comments POC-GLUCOSE METER 294 mg/dL 70-110 H TESTED AT [facility] 6720 (BEAKER) (test code = SHARATH [place]well [facility] 1538) [address] HEMOGLOBIN [id number] 17:45:00 Test Item Value Reference Range Interpretation Comments HEMOGLOBIN A1C (BEAKER) (test code = 12.6 % 4.3-6.1 H 368) RAD, CHEST, 1 VIEW, NON [id number] 17:20:00Reason for exam:->sobShould this be performed at [...] MDReport Verified Date/Time: 04/07/2017 17:20:50 Reading Location: [address] Radiology Reading Room TSH/FREE T4 IF [id number] 17:04:00 Test Item Value Reference Range Interpretation Comments THYROID STIMULATING HORMONE 0.95 uIU/mL 0.35-4.94 (BEAKER) (test code = 772) TROPONIN [id number] 16:51:00 Test Item Value Reference Range Interpretation [...] failure, acidosis, acute neurological disease, and persistent tachyarrhythmia.[id number] 16:45:00 Test Item Value Reference Range Interpretation Comments LIPASE (BEAKER) (test code = 749) 33 U/L 8-78 [id number] 16:45:00 Test Item Value Reference Range Interpretation Comments AMYLASE (BEAKER) (test code = 349) 66 U/L 25-125 BASIC METABOLIC [id number] 16:45:00 Test Item Value Reference Range Interpretation [...] DIALYSIS PATIEN TS. LACTIC ACID, VENOUS, WHOLE [id number] 16:45:00 Test Item Value Reference Range Interpretation Comments LACTATE BLOOD VENOUS (2) (BEAKER) 1.1 mmol/L 0.5-2.2 (test code = 2872) Effective 12/05/2015: Units/Reference Range ChangeNew: 0.5-2.2 mmol/L Previous: 5- 20 mg/dLKETONE, [id number] 16:41:00 Test Item Value Reference Range Interpretation Comments KETONES, BLOOD (BEAKER) (test code 2.1 mmol/L <0.4 H = 1103) BLOOD GAS, [id number] 16:27:00 Test Item Value Reference Range Interpretation [...] 37.0 C (test code = 1818) POCT-GLUCOSE [id number] 16:20:00 Test Item Value Reference Range Interpretation Comments POC-GLUCOSE METER 156 mg/dL 70-110 H TESTED AT [facility] 6720 (BEAKER) (test code = SHAR[place] 1538) [address] POCT-GLUCOSE [id number] 15:28:00 Test Item Value Reference Range Interpretation Comments POC-GLUCOSE METER 101 mg/dL 70-110 TESTED AT [facility] 6720 (TACO) (test code = [place] [address]) [address]
[2022-07-08] MEDS ORDERED: ONDANSETRON 4 MG/2 ML VIAL ONE ×2 (11:22→14:19)
[2022-07-08] MEDS ORDERED: NA CHLORIDE 0.9% 1,000 ML ONE ×2 (11:23→13:21)
[2022-07-08 11:47] LABS: Urine Blood Trace-intact (Negative); Urine Glucose 3+ (Negative); Urine Protein 1+ (Negative); Urine pH 6.5 (5.0-7.0)
[2022-07-08 11:53] LABS: Absolute Lymphocytes (CBC) 1.2 K/uL (0.7-4.9); Hematocrit 37.9 % (36.0-45.0); MCV 81.6 fL (80-100); MPV 7.5 fL (7.6-11.3); RBC Red Blood Cell Count 4.65 M/uL (3.86-4.86)
--- NOTE | 2022-07-08 11:58 | RAD REPORT ---
EXAM DESCRIPTION: RAD - Chest Single View - 07/08/2022 11:51 am CLINICAL HISTORY: fever, cough Chest pain. COMPARISON: Chest Single View dated 06/26/2020; Chest Single View dated 04/07/2017; Chest Single View dated 12/04/2015; CHEST SINGLE VIEW dated 01/18/2015 FINDINGS: Portable technique limits examination quality. The lungs are grossly clear. The heart is normal in size. No displaced fractures. IMPRESSION: No acute intrathoracic process suspected.
[2022-07-08 12:04] LABS: Urine Bacteria <20 /HPF (<20); Urine Mucus Slight /HPF (None Seen)
[2022-07-08 12:10] LABS: Albumin 3.3 g/dL (3.4-5.0); Bilirubin Total 0.5 mg/dL (0.2-1.0); Potassium 3.5 mmol/L (3.5-5.1); Protein, Total 7.9 g/dL (6.4-8.2)
[2022-07-08 12:30] LABS: SARS-COV-2 RT PCR NEGATIVE (NEGATIVE)
--- NOTE | 2022-07-08 12:57 | RAD REPORT ---
EXAM DESCRIPTION: CT - Abdomen Pelvis W Contrast - 07/08/2022 12:42 pm CLINICAL HISTORY: Abdominal pain COMPARISON: 2019 TECHNIQUE: Computed axial tomography of the abdomen pelvis was obtained. 100 cc Isovue-300 was admin istered intravenously. Oral contrast was not requested which limits evaluation of bowel and appendix All CT scans are performed using dose optimization technique as appropriate and may include automated exposure control or mA/KV adjustment according to patient size. FINDINGS: Liver appears borderline enlarged Spleen, pancreas, adrenal and kidneys appear unremarkable. There is no evidence of diverticulitis. Normal appendix 2.5 centimeter right ovarian cyst with minimal free fluid. Moderate amount of stool within the colon. Mild bladder wall thickening. Small umbilical hernia IMPRESSION: Mild bladder wall thickening may indicate a cystitis 2.5 centimeter right ovarian cyst with minimal fluid Moderate amount of stool within the colon Borderline hepatomegaly
[2022-07-08] MEDS ORDERED: MORPHINE 4 MG/ML SYR ONE (13:05)
[2022-07-08] MEDS ORDERED: CIPROFLOXACIN 400mg IV 400 MG/200 ML BAG IV ONE (13:21)
[2022-07-08] MEDS ORDERED: IBUPROFEN 400 MG TAB ONE (13:38)
--- NOTE | 2022-07-08 13:46 | EDPHYS ---
Physician Documentation [facility] Name: Salome Santacruz Age: 22 yrs Sex: Female : 2000 Arrival Date: 07/08/2022 Time: 11:10 Bed 10 Private MD: ED Physician Joe Carreon HPI: 07/08 11:14 This 22 yrs old Female presents to ER via Unassigned with complaints of fever, abd pain.rn 11:14 The patient reports fever, that was measured at 101 degrees Fahrenheit. Onset: The rn symptoms/episode began/occurred 2 day(s) ago. Modifying factors: there are no obvious modifying factors. Associated signs and symptoms: Pertinent positives: abdominal pain, chills. 11:14 Severity of symptoms: At their worst the symptoms were mild in the emergency department rn the symptoms are unchanged. The patient has not experienced similar symptoms in the past. The patient has been recently seen by a physician:. Pt reports just diagnosed with UTI and BV, at [facility], started on 3 abx yesterday, states diffuse abd pain, back pain, chills, nausea. . 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 - Social history:: Smoking status: Patient denies any tobacco usage or history of. - Family history:: not pertinent. - Hospitalizations: : No recent hospitalization is reported. 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 Exam: 11:14 Constitutional: This is a well developed, well nourished patient who is awake, alert, rn and in no acute distress. Head/Face: Normocephalic, atraumatic. Eyes: Periorbital areas with no swelling, redness, or edema. ENT: dry MM Cardiovascular: tachycardic, regular Respiratory: No increased work of breathing, no retractions or nasal flaring. Abdomen/GI: soft, mild mid abd tenderness, no rebound or peritoneal signs Skin: Warm, dry MS/ Extremity: Pulses equal, no cyanosis Neuro: Awake and alert, GCS 15 Vital Signs: 11:07 BP 111 / 82; Pulse 111; Resp 18; Temp 99.7(O); Pulse Ox 100% on R/A; Weight 63.5 kg; db Height 5 ft. 4 in. (162.56 cm); Pain 10/10; 13:00 BP 115 / 077; Pulse 107; Resp 16; Pulse Ox 100% on R/A; db 13:30 BP 113 / 77; Pulse 108; Resp 18; Temp 100.1(O); Pulse Ox 100% on R/A; db 14:30 BP 118 / 78; Pulse 116; Resp 18; Temp 103.1(O); Pulse Ox 100% on R/A; db 15:45 BP 103 / 60; Pulse 113; Resp 18; Temp 99.9(O); Pulse Ox 100% on R/A; db 11:07 Body Mass Index 24.03 (63.50 kg, 162.56 cm) db MDM: 11:10 Patient medically screened. rn 13:44 Differential diagnosis: viral Infection, bacterial infection, URI, UTI. Data reviewed: rn vital signs, nurses notes, lab test result(s), radiologic studies, CT scan, and as a result, I will discharge patient. Counseling: I had a detailed discussion with the patient and/or guardian regarding: the historical points, exam findings, and any diagnostic results supporting the discharge/admit diagnosis, lab results, radiology results, the need for outpatient follow up, to return to the emergency department if symptoms worsen or persist or if there are any questions or concerns that arise at home. Response to treatment: the patient's symptoms have mildly improved after treatment, and as a result, I will discharge patient. Special discussion: I discussed with the patient/guardian in detail that at this point there is no indication for admission to the hospital. It is understood, however, that if the symptoms persist or worsen the patient needs to return immediately for re-evaluation. ED course: + UTI, appears cystitis, no evidence of pyelonephritis at this time, was taking nitrofurantoin, will change to cipro and dc home with strict return precautions. COVID and flu neg. . 07/08 11:12 Order name: CBC with Diff; Complete Time: 12:54 rn 07/08 11:12 Order name: CMP; Complete Time: 12:54 rn 07/08 11:12 Order name: Lipase; Complete Time: 12:54 rn 07/08 11:12 Order name: Urine Microscopic Only; Complete Time: 12:54 rn 07/08 11:13 Order name: COVID-19/FLU A+B; Complete Time: 12:54 rn 07/08 11:13 Order name: Lactate w/ 2H reflex if indic.; Complete Time: 12:54 rn 07/08 11:12 Order name: CT Abd/Pelvis - IV Contrast Only; Complete Time: 13:01 rn 07/08 11:13 Order name: Blood Culture Adult (2) 07/08 11:14 Order name: XRAY Chest (1 view); Complete Time: 12:54 rn 07/08 11:47 Order name: Urine Dipstick-Ancillary; Complete Time: 12:54 EDPA 07/08 11:48 Order name: Urine --Ancillary (enter results) 07/08 11:50 Order name: Urine Dipstick-Ancillary EDPA 07/08 12:12 Order name: Urine Culture EDPA 07/08 12:13 Order name: Glucose, Ancillary Testing; Complete Time: 12:54 EDPA 07/08 11:12 Order name: IV Saline Lock; Complete Time: 11:52 rn 07/08 11:12 Order name: Labs collected and sent; Complete Time: 11:52 rn 07/08 11:12 Order name: Urine Dipstick-Ancillary (obtain specimen); Complete Time: 11:52 rn 07/08 11:12 Order name: Urine Test (obtain specimen); Complete Time: 11:52 rn 07/08 11:12 Order name: Glucose Level; Complete Time: 12:03 rn Administered Medications: 11:35 Drug: NS 0.9% 1000 ml Route: IV; Rate: 1 bolus; Site: right antecubital; db 13:08 Follow up: Response: No adverse reaction; IV Status: Completed infusion; IV Intake: db 1000ml 11:35 Drug: Zofran (Ondansetron) 4 mg Route: IVP; Site: right antecubital; db 13:08 Follow up: Response: No adverse reaction db 13:08 Drug: morphine 4 mg Route: IVP; Infused Over: 4 mins; Site: right antecubital; db 13:31 Follow up: Response: No adverse reaction; Pain is decreased db 13:31 Drug: Cipro (ciprofloxacin) 400 mg Volume: 200 ml; Route: IVPB; Infused Over: 60 mins; db Site: right antecubital; 14:35 Follow up: Response: No adverse reaction; IV Status: Completed infusion; IV Intake: db 100ml 13:31 Drug: NS 0.9% 1000 ml Route: IV; Rate: 1000 ml; Site: right antecubital; db 14:40 Follow up: Response: No adverse reaction; IV Status: Completed infusion; IV Intake: db 1000ml 13:39 Drug: Motrin (ibuprofen) 800 mg Route: PO; db 15:12 Follow up: Response: No adverse reaction db 14:22 Drug: Zofran (Ondansetron) 4 mg Route: IVP; Site: right antecubital; em6 15:12 Follow up: Response: No adverse reaction; Nausea is decreased db 14:44 Drug: Tylenol 1000 mg Route: PO; db 15:12 Follow up: Response: No adverse reaction db Disposition Summary: 07/08/22 13:45 Discharge Ordered Location: Home rn Problem: new rn Symptoms: have improved rn Condition: Stable rn Diagnosis - Acute cystitis without hematuria rn - Fever, unspecified rn Followup: rn - With: Private Physician - When: As needed - Reason: Recheck today's complaints, Re-evaluation by your physician Discharge Instructions: - Discharge Summary Sheet rn - Urinary Tract Infection, Adult rn Forms: - Medication Reconciliation Form rn - Thank You Letter rn - 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
--- NOTE | 2022-07-08 13:46 | ER ---
Nurse's Notes [facility] Name: Salome Santacruz Age: 22 yrs Sex: Female : 2000 Arrival Date: 07/08/2022 Time: 11:10 Bed 10 Private MD: Diagnosis: Acute cystitis without hematuria;Fever, unspecified Presentation: 07/08 11:07 Chief complaint: EMS states: Generalized weakness, fever, nausea since Thursday. db recently diagnosed and taking abx for UTI, diagnosed with BV, and yeast infection as well. Coronavirus screen: Vaccine status: Patient reports receiving the 2nd dose of the covid vaccine. Client denies travel out of the [place] in the last 14 days. Client presents with at least one sign or symptom that may indicate coronavirus-19. Standard/surgical mask placed on the client. Ebola Screen: Patient negative for fever greater than or equal to 101.5 degrees Fahrenheit, and additional compatible Ebola Virus Disease symptoms Patient denies exposure to infectious person. Patient denies travel to an Ebola-affected area in the 21 days before illness onset. No symptoms or risks identified at this time. Initial Sepsis Screen: Does the patient meet any 2 criteria? HR > 90 bpm. Yes Does the patient have a suspected source of infection? No. Patient's initial sepsis screen is negative. Risk Assessment: Do you want to hurt yourself or someone else? Patient reports no desire to harm self or others. Onset of symptoms was July 05, 2022. 11:07 Method Of Arrival: EMS: [facility] db 11:07 Acuity: BRIAN 3 db Triage Assessment: 11:14 General: Appears in no apparent distress. uncomfortable, Behavior is calm, cooperative, db appropriate for age, quiet. Pain: Complains of pain in head, back and abdomen. GI: Patient currently denies nausea, vomiting. 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 - Social history:: Smoking status: Patient denies any tobacco usage or history of. - Family history:: not pertinent. - Hospitalizations: : No recent hospitalization is reported. Screenin:55 Abuse screen: Denies threats or abuse. Denies injuries from another. Nutritional db screening: No deficits noted. Tuberculosis screening: No symptoms or risk factors identified. Fall Risk None identified. No fall in past 12 months (0 pts). No secondary diagnosis (0 pts). IV access (20 points). Ambulatory Aid- None/Bed Rest/Nurse Assist (0 pts). Gait- Normal/Bed Rest/Wheelchair (0 pts) Mental Status- Oriented to own ability (0 pts). Total [place] Fall Scale indicates No Risk (0-24 pts). Assessment: 11:54 Reassessment: Patient appears in no apparent distress at this time. Patient is alert, db oriented x 3, equal unlabored respirations, skin warm/dry/pink. patient resting. Visitor at bedside. Reassessment:. General: Appears. General: Appears in no apparent distress. comfortable, Behavior is calm, cooperative, appropriate for age. Pain: Complains of pain in back and abdomen and head. Neuro: No deficits noted. Level of Consciousness is awake, alert, obeys commands, Oriented to person, place, time, Moves all extremities. Speech is normal, Facial symmetry appears normal, Pupils are PERRLA. Cardiovascular: No deficits noted. Respiratory: No deficits noted. Airway is patent Respiratory effort is even, unlabored, Respiratory pattern is regular, symmetrical. GI: Abdomen is flat, non-distended, Reports nausea. : Reports recent diagnosis of UTI. EENT: No deficits noted. No signs and/or symptoms were reported regarding the EENT system. Derm: No deficits noted. No signs and/or symptoms reported regarding the dermatologic system. 12:30 Reassessment: Patient appears in no apparent distress at this time. No changes from db previously documented assessment. Patient and/or family updated on plan of care and expected duration. Pain level reassessed. Patient is alert, oriented x 3, equal unlabored respirations, skin warm/dry/pink. 13:35 Reassessment: Patient appears in no apparent distress at this time. Patient and/or db family updated on plan of care and expected duration. Pain level reassessed. Patient is alert, oriented x 3, equal unlabored respirations, skin warm/dry/pink. Patient states feeling better. 14:37 Reassessment: Patient appears in no apparent distress at this time. Patient and/or db family updated on plan of care and expected duration. Pain level reassessed. Patient is alert, oriented x 3, equal unlabored respirations, skin warm/dry/pink. fever increased. Dr. CARREON NOTIFIED. patient provided water and ice chips. Vital Signs: 11:07 BP 111 / 82; Pulse 111; Resp 18; Temp 99.7(O); Pulse Ox 100% on R/A; Weight 63.5 kg; db Height 5 ft. 4 in. (162.56 cm); Pain 10/10; 13:00 BP 115 / 077; Pulse 107; Resp 16; Pulse Ox 100% on R/A; db 13:30 BP 113 / 77; Pulse 108; Resp 18; Temp 100.1(O); Pulse Ox 100% on R/A; db 14:30 BP 118 / 78; Pulse 116; Resp 18; Temp 103.1(O); Pulse Ox 100% on R/A; db 15:45 BP 103 / 60; Pulse 113; Resp 18; Temp 99.9(O); Pulse Ox 100% on R/A; db 11:07 Body Mass Index 24.03 (63.50 kg, 162.56 cm) db ED Course: 11:10 Patient arrived in ED. rn 11:10 Joe Carreon MD is Attending Physician. rn 11:11 Renea Tan, VI is Primary Nurse. db 11:14 Triage completed. db 11:15 Arm band placed on right wrist. db 11:35 Inserted saline lock: 20 gauge in right antecubital area, using aseptic technique. db Blood collected. 11:35 First set of blood cultures drawn. db 11:50 Second set of blood cultures drawn by me. db 11:53 XRAY Chest (1 view) In Process Unspecified. EDMS 11:58 Urine Dipstick-Ancillary Sent. em6 12:44 CT Abd/Pelvis - IV Contrast Only In Process Unspecified. EDMS 14:44 Bed in low position. Call light in reach. Side rails up X 1. db 15:55 No provider procedures requiring assistance completed. IV discontinued, intact, db bleeding controlled, No redness/swelling at site. Administered Medications: 11:35 Drug: NS 0.9% 1000 ml Route: IV; Rate: 1 bolus; Site: right antecubital; db 13:08 Follow up: Response: No adverse reaction; IV Status: Completed infusion; IV Intake: db 1000ml 11:35 Drug: Zofran (Ondansetron) 4 mg Route: IVP; Site: right antecubital; db 13:08 Follow up: Response: No adverse reaction db 13:08 Drug: morphine 4 mg Route: IVP; Infused Over: 4 mins; Site: right antecubital; db 13:31 Follow up: Response: No adverse reaction; Pain is decreased db 13:31 Drug: Cipro (ciprofloxacin) 400 mg Volume: 200 ml; Route: IVPB; Infused Over: 60 mins; db Site: right antecubital; 14:35 Follow up: Response: No adverse reaction; IV Status: Completed infusion; IV Intake: db 100ml 13:31 Drug: NS 0.9% 1000 ml Route: IV; Rate: 1000 ml; Site: right antecubital; db 14:40 Follow up: Response: No adverse reaction; IV Status: Completed infusion; IV Intake: db 1000ml 13:39 Drug: Motrin (ibuprofen) 800 mg Route: PO; db 15:12 Follow up: Response: No adverse reaction db 14:22 Drug: Zofran (Ondansetron) 4 mg Route: IVP; Site: right antecubital; em6 15:12 Follow up: Response: No adverse reaction; Nausea is decreased db 14:44 Drug: Tylenol 1000 mg Route: PO; db 15:12 Follow up: Response: No adverse reaction db Medication: 14:30 VIS not applicable for this client. db Intake: 13:08 IV: 1000ml; Total: 1000ml. db 14:35 IV: 100ml; Total: 1100ml. db 14:40 IV: 1000ml; Total: 2100ml. db Outcome: 13:45 Discharge ordered by . rn 15:55 Discharged to home ambulatory. db 15:55 Condition: stable 15:55 Discharge instructions given to patient, friend, Instructed on discharge instructions, follow up and referral plans. Demonstrated understanding of instructions, follow-up care, medications, Prescriptions given X 1. 15:56 Patient left the ED. db Signatures: Dispatcher [employer] Joe Arnett MD MD rn Martinez, Erika, RN RN em6 Renea Tan RN RN db Corrections: (The following items were deleted from the chart) 15:55 14:37 Reassessment: Patient appears in no apparent distress at this time. Patient db and/or family updated on plan of care and expected duration. Pain level reassessed. Patient is alert, oriented x 3, equal unlabored respirations, skin warm/dry/pink. fever increased. Dr. CARREON NOTIFIED db
[2022-07-08] MEDS ORDERED: ACETAMINOPHEN 500 MG TAB ONE (14:40)
[2022-07-08 19:40] VITALS: O2SAT 100
[2022-07-08 19:59] VITALS: BP 103/60; TEMP 99.9
== END 2022-07-08 15:56 | disposition home or self-care (01) ==
LOC: ER 11:05
DX: N30.00 Acute cystitis without hematuria (principal); Z20.822 Contact with and (suspected) exposure to COVID-19
CPT/HCPCS: 87040 ×2; 87088; 85025; 87086; 36415; 81025; 82947; 83605; 83690; 80053; 0240U; 74177; 71045; Q9967; J7030 ×2; J2405 ×2; J0744; 81003; 81015; 96361; 96365; 96375; 99284

== ENCOUNTER 2022-07-09 23:35 | Inpatient (IN) | payer OTHER ==
--- OUTSIDE RECORDS SUMMARY | 2022-07-09 23:49 | XMS REPORT | Continuity of Care Document ---
:2000 Author Organization [facility] t Address [id number] Care Team Providers Name Role Phone Inessa DAVIS, Cori A Primary Care Physician Unavailable ELEANOR SEXTON Attending Clinician Unavailable ELEANOR SEXTON Attending Clinician Unavailable AGNES JAIME Attending Clinician Unavailable AGNES JAIME Attending Clinician Unavailable Ebhicarrillo POLICY VALUE CALCULATOR, Tien Attending Clinician TIEN MANCUSO Attending Clinician Unavailable Unknown, Attending Attending Clinician Unavailable Jacqui Espinal MD Attending Clinician MARILEE KURTZ Attending Clinician Unavailable Rehana ROAD HOGGER OPERATOR, Marilee Robles Attending Clinician Gaby Chan RN Attending Clinician Unavailable Caroline POLICY VALUE CALCULATOR, Romina Angeles Attending Clinician ROMINA VELAZQUEZ Attending Clinician Unavailable Doctor Unassigned, [place] Attending Clinician Unavailable RAUL HAMMOND Attending Clinician Unavailable AMALIA FLAHERTY Attending Clinician Unavailable Amalia Flaherty DO Attending Clinician MARITZA VINES Attending Clinician Unavailable Green POLICY VALUE CALCULATOR, Bill Attending Clinician Manish POLICY VALUE CALCULATOR, Raul Attending Clinician Arturo Carter RN Attending Clinician Unavailable Only, Ang Db Test Attending Clinician Unavailable Manda Cedeño MD Attending Clinician MANDA CEDEÑO Attending Clinician Unavailable Annette Moon RN Attending Clinician Unavailable Simone POLICY VALUE CALCULATOR, Dustin Attending Clinician DUSTIN NICHOLS Attending Clinician [...] Attending Clinician FAVIOLA ORTIZ Attending Clinician Unavailable Faviola Ortiz MD Attending Clinician Abraham Chaidez MD Attending Clinician Maritza Santiago Attending Clinician JAQUELIN HERNANDEZ Attending Clinician Unavailable Jaquelin Hernandez MD Attending Clinician SENIA ARIAS Attending Clinician Unavailable JANE HERNANDEZ Attending Clinician Unavailable Colby POLICY VALUE CALCULATOR, Jane Angeles Attending Clinician Michele LEBRON, Villa Cook Attending Clinician Unavailable BILL PATIÑO Attending Clinician Unavailable [facility] Att[facility] [...] Clinician Akinsipe WHCNP, Osvaldo C Attending Clinician [phone] Provider, [facility] Attending Clinician Unavailable Kelton DAVIS, Graham Collins Attending Clinician JUAN LOJA Attending Clinician Unavailable ELEAZAR GIBBS Attending Clinician Unavailable Lab, Adc Fam Pob I Attending Clinician Unavailable Ki BURRIS, Jemima S Attending Clinician Zbigniew DAVIS, Juan Attending Clinician Anna Medel Attending Clinician Sophie LEBRON, Yesenia Attending Clinician Unavailable Visit, Ang-Rmchp Nurse Attending Clinician Unavailable Faculty, Ang Rmchp Mfm Attending Clinician Unavailable Lauri DAVIS, Basia Narayan Attending Clinician Abisai DAVIS, Vidya Taylor Attending Clinician VIDYA DEAN Attending Clinician Unavailable Fellow, Christiano Leongm Attending Clinician Unavailable Aaron Li MD Attending Clinician Thompson Sethi MD Attending Clinician Risk, Qdz-Svvcd-Fo/High Attending Clinician Unavailable George Tania NAVARRO Attending Clinician TANIA VAZQUEZ Attending Clinician Unavailable AARON LI Attending Clinician Unavailable AARON LI Attending Clinician Unavailable Leslye Demarco MD, Dio Attending Clinician [phone] Marta Pearson MD Attending Clinician NICHOLE REAL Attending Clinician Unavailable Alexander AVALOSP, Delma Attending Clinician [facility]ail[facility]ending [facility] Nichole Real MD Attending Clinician Ultrasound, Harvey-Mfcarrillo Attending Clinician Unavailable Cedrick DAVIS, Adelaida Cook Attending Clinician Efrem POLICY VALUE CALCULATORSherry Attending Clinician ABIMBOLA GILL Attending Clinician Unavailable [...] Admitting Clinician Dio Abbott MD Admitting Clinician [phone] Nichole Real MD Admitting Clinician Adelaida Philip MD Admitting Clinician Aaron Li MD Admitting Clinician JAYY COONEY Admitting Clinician Unavailable EDDIE HARRIS Admitting Clinician Unavailable EDENILSON HANSEN Admitting Clinician Unavailable JOHNY SAM Admitting Clinician Unavailable TOMER CHACON Admitting Clinician Unavailtanvi chowdhury Payers Payer Name Policy Type Policy Number Effective Date Expiration Date Anastasiya WINSLOW [id number] 2020 HEALTH 00:00:00 MEDICAID PENDING PENDING 2020 00:00:00 PHCS GENERIC [id number] 2018 2018 00:00:00 00:00:00 Problems Condition Condition Condition Status Onset Resolution Last Treating Co mments Source Name Details Category Date Date Treatment Clinician Date Vaginal Vaginal Disease Active Univers discharge discharge 6-28 ity of 00:00: [place] [facility] High risk High risk Disease Active Uni vers bisexual bisexual 6-28 ity of behavior behavior 00:00: [place] [facility] DKA, type DKA, type Disease Active Uni vers 1, not at 1, not at 4-18 ity of goal goal 00:00: [place] [facility] Chronic Chronic Disease Active Univers pain of pain of 4-01 ity of both knees both knees [place] [facility] Chronic Chronic Disease Active Univers pain of pain of 4- [place] Tachycardi Tachycardi Disease Active U nivers a a 4-01 ity of 00:00: [place] [facility] Hyperglyce Hyperglyce Disease Active U nivers pablo pablo 8-13 ity of 00:00: [place] [facility] Diabetic Diabetic Disease Active Unive rs gastropare gastropare 8-05 it y of sis sis 00:00: [facility] Screening Screening Disease Active Uni vers [...] nivers exam exam 3-24 ity of 00:00: [place] [facility] Acute Acute Disease Active Univers blood loss blood loss 3-02 it y of anemia anemia 00:00: [place] [facility] Diabetic Diabetic Disease Active Unive rs ketoacidos ketoacidos 2-01 it y of is without is without 00:[place] coma coma 00 Medical associated associated Br anch with type with type 1 diabetes 1 diabetes mellitus mellitus Bipolar Bipolar Disease Active 2021-0 Univers disease disease 1-14 ity of during during 00:00: [place] , , 00 Me dical antepartum antepartum Br anch Dysuria Dysuria Disease Active Univers 1-06 ity of 00:00: [place] [facility] Vaginal Vaginal Disease Active Univers itching itching 1-06 ity of 00:00: [address] Branch Vaginal Vaginal Disease Active 2019-08 Univers bleeding bleeding 0-22 ity of 00:00: [place] [facility] Diabetic Diabetic Disease Active 2016-08 [facility]-15 [facility] k[facility] is without is without 00:00: Me dical coma coma 00 Center associated associated with with diabetes diabetes mellitus mellitus due to due to underlying underlying condition condition Dyspareuni Dyspareuni Disease Active 2016-08 U nivers a in a in 0-25 ity of female female 00:00: [place] [facility] Diabetic Diabetic Disease Active 2016-08 [facility] ketoac[facility] 0-16 [facility] kes is without is without 00:00: Me dical coma coma 00 Center associated associated with type with type 1 diabetes 1 diabetes mellitus mellitus History of History of Disease Active U nivers tubal tubal 9-12 ity of ligation ligation 00:00: [place] [facility] DKA, type DKA, type Disease Active [facility] Nausea Nausea Disease [facility] 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 wellbutri n 1 yr ago- self d/c. Attention Attention Disease Active Overview: Univers deficit deficit 3-17 Formattin ity o f hyperactiv hyperactiv 00:00: g of this [place] ity ity 00 note Medical disorder disorder might be Bran ch (ADHD) (ADHD) different from the original. ICD10 Diagnosis Term Mathematical Technician Utility Allergies, Adverse Reactions, Alerts Allergy Allergy Status Severity Reaction(s) Onset Inactive Treating Comm ents Source Name Type Date Date Clinician CEPHALEX DRUG Active Hives Univers IN INGREDI 9-07 ity of 00:00: [address] Branch Cephalex Propensi Active Hiv Univer [...] Not sure University of SARS-CoV-2 00:00:00 16:46:00 [place] [facility] [place] Alcohol intake 2017-06-17 2017-06-[address] [facility] 00:00:00 00:00:00 non-drinker of Medical Ce nter alcohol (finding) Tobacco use and 2017-04-07 2017-04-[address] [facility] [facility] kes exposure 00:00:00 00:00:00 Medical Center History of 2012-04-14 2015-04-14 [facility]:00 [facility] Sex Assigned At [birth year] LISA Mccormack 00:00:00 00:00:00 [facility] Smoking Status Start Date Stop Date Source Ex-smoker 2022-05-26 00:00:00 2022-05-26 00:00:00 [facility] Medications Ordered Filled Start Stop Current Ordering Indication Dosage Frequency Signature Comments Components Source Medication Medication Date Date Medication? Clinician (SIG) Name Name metroNIDAZO 2021-08- Yes [id number] 500mg Take 1 Univers LE (FLAGYL) 09-04 tablet by it y of 500 mg 00:00: 05:59 mouth [place] tablet 00 :00 every 12 Medical (twelve) Branch hours for 7 days. fluconazole 2021-08- Yes [id number] 150mg Take 1 Univers (DIFLUCAN) 09-04 tablet by ity of 150 mg 00:00: 05:59 mouth [place] tablet 00 :00 every 72 Medical (seventy-t Branch wo) hours for 2 doses. Nitrofurant 2021-08- Yes [id number] 100mg Take 1 Univers oin&Nit. 2-07-11 capsule by ity of Macrocryst 00:00: 05:59 mouth in [place] (MACROBID) 00 :00 the Medical 100 mg morning Branch capsule and 1 capsule in the evening. Do all this for 7 days. Nitrofurant 2021-08- Yes [id number] 100mg Take 1 Univers oin&Nit. 09-03 capsule by ity of Macrocryst 00:00: 05:59 mouth [place] (MACROBID) 00 :00 the Medical 100 mg morning Branch capsule and 1 capsule in the evening. Do all this for 7 days. Nitrofurant 2021-08- Yes [id number] 100mg Take 1 Univers oin&Nit. 2-07-11 capsule by ity of Macrocryst 00:00: 05:59 mouth in [place] (MACROBID) 00 :00 the Medical 100 mg morning Branch capsule and 1 capsule in the evening. Do all this for 7 days. Nitrofurant 2021-08- Yes [id number] 100mg Take 1 Univers oin&Nit. 207-11 capsule by ity of Macrocryst 00:00: 05:59 mouth in [place] (MACROBID) 00 :00 the Medical 100 mg morning Branch capsule and 1 capsule in the evening. Do all this for 7 days. DULOXETINE 2021-08 Yes [id number] TAKE ONE Univers 20 mg 1-18 CAPSULE BY ity of capsule 00:00: MOUTH [place] 00 EVERY Medical MORNING Branch DULOXETINE 2021-08 Yes [id number] TAKE ONE Univers 20 mg 1-18 CAPSULE BY ity of capsule 00:00: MOUTH [place] 00 EVERY Medical MORNING Branch DULOXETINE 2021-08 Yes [id number] TAKE ONE Univers 20 mg 1-18 CAPSULE BY ity of capsule 00:00: MOUTH [place] 00 EVERY Medical MORNING Branch DULOXETINE 2021-08 Yes [id number] TAKE ONE Univers 20 mg 1-18 CAPSULE BY ity of capsule 00:00: MOUTH [place] 00 EVERY Medical MORNING Branch DULOXETINE 2021-08 Yes [id number] TAKE ONE Univers 20 mg 1-18 CAPSULE BY ity of capsule 00:00: MOUTH [place] 00 EVERY Medical MORNING Branch DULOXETINE 2021-08 Yes [id number] TAKE ONE Univers 20 mg 1-18 CAPSULE BY ity of capsule 00:00: MOUTH [place] 00 EVERY Medical MORNING Branch DULOXETINE 2021-08 Yes [id number] TAKE ONE Univers 20 mg 1-18 CAPSULE [...] al dose, On Branch Thu05/30/22 at 1515, [facility] insulin 2021-08 No .1U/kg 6.21 Units U [...] Thu05/30/22 at 1400, THIEN ondansetron 2021-08 Yes [id number] 4mg Take 1 U nivers 4 mg 0-28 tablet by ity of disintegrat 00:00: mouth [place] ing tablet 00 every 8 Medica l (eight) Branch hours as needed for Nausea and Vomiting (N/V). ondansetron 2021-08 Yes [id number] 4mg Take 1 U nivers 4 mg 0-28 tablet by ity of disintegrat 00:00: mouth [place] ing tablet 00 every 8 Medica l (eight) Branch hours as needed for Nausea and Vomiting (N/V). ondansetron 2021-08 Yes [id number] 4mg Take 1 U nivers 4 mg 0-28 tablet by ity of disintegrat 00:00: mouth [place] ing tablet 00 every 8 Medica l (eight) Branch hours as needed for Nausea and Vomiting (N/V). ondansetron 2021-08 Yes [id number] 4mg Take 1 U nivers 4 mg 0-28 tablet by ity of disintegrat 00:00: mouth [place] ing tablet 00 every 8 Medica l (eight) Branch hours as needed for Nausea and Vomiting (N/V). ondansetron 2021-08 Yes [id number] 4mg Take 1 U nivers 4 mg 0-28 tablet by ity of disintegrat 00:00: mouth [place] ing tablet 00 every 8 Medica l (eight) Branch hours as needed for Nausea and Vomiting (N/V). ondansetron 2021-08 Yes [id number] 4mg Take 1 U nivers 4 mg 0-28 tablet by ity of disintegrat 00:00: mouth [place] ing tablet 00 every 8 Medica l (eight) Branch hours as needed for Nausea and Vomiting (N/V). ondansetron 2021-08 Yes [id number] 4mg Take 1 U nivers 4 mg 0-28 tablet by ity of disintegrat 00:00: mouth [place] ing tablet 00 every 8 Medica l (eight) Branch hours as needed for Nausea and Vomiting (N/V). ondansetron 2021-08 Yes [id number] 4mg Take 1 U nivers 4 mg 0-28 tablet by ity of disintegrat 00:00: mouth [place] ing tablet 00 every 8 Medica l (eight) Branch hours as needed for Nausea and Vomiting (N/V). ondansetron 2021-08 Yes [id number] 4mg Take 1 U nivers 4 mg 0-28 tablet by ity of disintegrat 00:00: mouth [place] ing tablet 00 every 8 Medica l (eight) Branch hours as needed for Nausea and Vomiting (N/V). ondansetron 2021-08 Yes [id number] 4mg Take 1 U nivers 4 mg 0-28 tablet by ity of disintegrat 00:00: mouth [place] ing tablet 00 every 8 Medica l (eight) Branch hours as needed for Nausea and Vomiting (N/V). ondansetron 2021-08 Yes [id number] 4mg Take 1 U nivers 4 mg 0-28 tablet by ity of disintegrat 00:00: mouth [place] ing tablet 00 every 8 Medica l (eight) Branch hours as needed for Nausea and Vomiting (N/V). ondansetron 2021-08 Yes [id number] 4mg Take 1 U nivers 4 mg [...] Medical per tablet Branch DULOXETINE 2021-08 Yes [id number] TAKE ONE Univers 20 mg 0-18 CAPSULE BY ity of capsule 00:00: MOUTH [place] 00 EVERY Medical MORNING Branch DULOXETINE 2021-08 Yes [id number] TAKE ONE Univers 20 mg 0-18 CAPSULE BY ity of capsule 00:00: MOUTH [place] 00 EVERY Medical MORNING Branch DULOXETINE 2021-08 Yes [id number] TAKE ONE Univers 20 mg 0-18 CAPSULE BY ity of capsule 00:00: MOUTH [place] 00 EVERY Medical MORNING Branch DULOXETINE 2021-08 Yes [id number] TAKE ONE Univers 20 mg 0-18 CAPSULE BY ity of capsule 00:00: MOUTH [place] 00 EVERY Medical MORNING Branch DULOXETINE 2021-08 Yes [id number] TAKE ONE Univers 20 mg 0-18 CAPSULE BY ity of capsule 00:00: MOUTH [place] 00 EVERY Medical MORNING Branch DULOXETINE 2021-08 Yes [id number] TAKE ONE Univers 20 mg 0-18 CAPSULE BY ity of capsule 00:00: MOUTH [place] 00 EVERY Medical MORNING Branch DULOXETINE 2021-08- No [id number] TAKE ONE Univers 20 mg 0-18 11-18 CAPSULE BY ity of capsule 00:00: 00:00 MOUTH [place] 00 :00 EVERY Medical MORNING Branch DULOXETINE 2021-08- No [id number] TAKE ONE Univers 20 mg 0-18 11-18 CAPSULE BY ity of capsule 00:00: 00:00 MOUTH [place] 00 :00 EVERY Medical MORNING Branch DULOXETINE 2021-08- No [id number] TAKE ONE Univers 20 mg 0-18 11-18 CAPSULE BY ity of capsule 00:00: 00:00 MOUTH [place] 00 :00 EVERY Medical MORNING Branch DULOXETINE 2021-08- No [id number] TAKE ONE Univers 20 mg 0-18 11-18 CAPSULE BY ity of capsule 00:00: 00:00 MOUTH [place] 00 :00 EVERY Medical MORNING Branch insulin 2021-08 Yes [id number] 60U inject 60 Univers aspart 0-09 9101 Units ity of RAPID 00:00: under the [place] (NOVOLOG 00 skin in Medical U-100 the Branch INSULIN morning. ASPART) 100 unit/mL injection insulin 2021-08 Yes [id number] 60U inject 60 Univers aspart 0-09 9101 Units ity of RAPID 00:00: under the [place] (NOVOLOG 00 skin in Medical U-100 the Branch INSULIN morning. ASPART) 100 unit/mL injection insulin 2021-08 Yes [id number] 60U inject 60 Univers aspart 0-09 9101 Units ity of RAPID 00:00: under the [place] (NOVOLOG 00 skin in Medical U-100 the Branch INSULIN morning. ASPART) 100 unit/mL injection insulin 2021-08 Yes [id number] 60U inject 60 Univers aspart 0-09 9101 Units ity of RAPID 00:00: under the [place] (NOVOLOG 00 skin in Medical U-100 the Branch INSULIN morning. ASPART) 100 unit/mL injection insulin 2021-08 Yes [id number] 60U inject 60 Univers aspart 0-09 9101 Units ity of RAPID 00:00: under the [place] (NOVOLOG 00 skin in Medical U-100 the Branch INSULIN morning. ASPART) 100 unit/mL injection insulin 2021-08 Yes [id number] 60U inject 60 Univers aspart 0-09 9101 Units ity of RAPID 00:00: under the [place] (NOVOLOG 00 skin in Medical U-100 the Branch INSULIN morning. ASPART) 100 unit/mL injection insulin 2021-08 Yes [id number] 60U inject 60 Univers aspart 0-09 9101 Units ity of RAPID 00:00: under the [place] (NOVOLOG 00 skin in Medical U-100 the Branch INSULIN morning. ASPART) 100 unit/mL injection insulin 2021-08 Yes [id number] 60U inject 60 Univers aspart 0-09 9101 Units ity of RAPID 00:00: under the [place] (NOVOLOG 00 skin in Medical U-100 the Branch INSULIN morning. ASPART) 100 unit/mL injection insulin 2021-08 Yes [id number] 60U inject 60 Univers aspart 0-09 9101 Units ity of RAPID 00:00: under the [place] (NOVOLOG 00 skin in Medical U-100 the Branch INSULIN morning. ASPART) 100 unit/mL injection insulin 2021-08 Yes [id number] 60U inject 60 Univers aspart 0-09 9101 Units ity of RAPID 00:00: under the [place] (NOVOLOG 00 skin in Medical U-100 the Branch INSULIN morning. ASPART) 100 unit/mL injection insulin 2021-08 Yes [id number] 60U inject 60 Univers aspart 0-09 9101 Units ity of RAPID 00:00: under the [place] (NOVOLOG 00 skin in Medical U-100 the Branch INSULIN morning. ASPART) 100 unit/mL injection insulin 2021-08 Yes [id number] 60U inject 60 Univers aspart 0-09 9101 Units ity of RAPID 00:00: under the [place] (NOVOLOG 00 skin in Medical U-100 the Branch INSULIN morning. ASPART) 100 unit/mL injection insulin 2021-08 Yes [id number] 60U inject 60 Univers aspart 0-09 9101 Units ity of RAPID 00:00: under the [place] (NOVOLOG 00 skin in Medical U-100 the Branch INSULIN morning. ASPART) 100 unit/mL injection insulin 2021-08 Yes [id number] 60U inject 60 Univers aspart 0-09 9101 Units ity of RAPID 00:00: under the [place] (NOVOLOG 00 skin in Medical U-100 the Branch INSULIN morning. ASPART) 100 unit/mL injection insulin 2021-08 Yes [id number] 60U inject 60 Univers aspart 0-09 9101 Units ity of RAPID 00:00: under the [place] (NOVOLOG 00 skin in Medical U-100 the Branch INSULIN morning. ASPART) 100 unit/mL injection insulin 2021-08 Yes [id number] 60U inject 60 Univers aspart 0-09 9101 Units ity of RAPID 00:00: under the [place] (NOVOLOG 00 skin in Medical U-100 the Branch INSULIN morning. ASPART) 100 unit/mL injection insulin 2021-08 Yes [id number] 60U inject 60 Univers aspart 0-09 9101 Units ity of RAPID 00:00: under the [place] (NOVOLOG 00 skin in Medical U-100 the Branch INSULIN morning. ASPART) 100 unit/mL injection DULOXETINE 0 Yes [id number] TAKE ONE Univers 20 mg 9-12 CAPSULE BY ity of capsule 00:00: MOUTH [place] 00 EVERY Medical MORNING Branch DULOXETINE 2021-0 Yes [id number] TAKE ONE Univers 20 mg 9-12 CAPSULE BY ity of capsule 00:00: MOUTH [place] 00 EVERY Medical MORNING Branch DULOXETINE 0 Yes [id number] TAKE ONE Univers 20 mg 9-12 CAPSULE BY ity of capsule 00:00: MOUTH 00 EVERY Medical MORNING Branch insulin 0 Yes 15 units 3 Univ ers aspart 9-08 x a day ity of RAPID 00:00: before [place] (NOVOLOG 00 meals . Medical U-100 For use Branch INSULIN with ASPART) 100 Insulin unit/mL pump injection insulin Yes 15 units 3 Univ ers aspart 9-08 x a day ity of RAPID 00:00: before [place] (NOVOLOG 00 meals . Medical U-100 For use Branch INSULIN with ASPART) 100 Insulin unit/mL pump injection insulin 0 Yes 15 units 3 Univ ers aspart 9-08 x a day ity of RAPID 00:00: before [place] (NOVOLOG 00 meals . Medical U-100 For use Branch INSULIN with ASPART) 100 Insulin unit/mL pump injection insulin 2021- No 15 units 3 Uni vers aspart 04-10 10-09 x a day ity of RAPID 00:00: 00:00 before [place] (NOVOLOG 00 :00 meals . Medical U-100 For use Branch INSULIN with ASPART) 100 Insulin unit/mL pump injection gabapentin 2021-0 Yes [id number] Take 1 cap Univers 100 mg 8-16 by mouth ity of capsule 00:00: at [place] 00 bedtime, Medical titrate Branch medication up to 3 caps by mouth three times a day gabapentin 2021-0 Yes [id number] Take 1 cap Univers 100 mg 8-16 by mouth ity of capsule 00:00: at [place] 00 bedtime, Medical titrate Branch medication up to 3 caps by mouth three times a day gabapentin 2022-0 Yes [id number] Take 1 cap Univers 100 mg 8-16 by mouth ity of capsule 00:00: at [place] [address] bedtime, Medical titrate Branch medication up to 3 caps by mouth three times a day gabapentin 2-0 Yes [id number] Take 1 cap Univers 100 mg 8-16 by mouth ity of capsule 00:00: at [place] 00 bedtime, Medical titrate Branch medication up to 3 caps by mouth three times a day gabapentin 2-0 Yes [id number] Take 1 cap Univers 100 mg 8-16 by mouth ity of capsule 00:00: at [place] 00 bedtime, Medical titrate Branch medication up to 3 caps by mouth three times a day gabapentin 2021-0 Yes [id number] Take 1 cap Univers 100 mg 8-16 by mouth ity of capsule 00:00: at [place] [address] bedtime, Medical titrate Branch medication up to 3 caps by mouth three times a day gabapentin 2021-0 Yes [id number] Take 1 cap Univers 100 mg 8-16 by mouth ity of capsule 00:00: at [place] [address] bedtime, Medical titrate Branch medication up to 3 caps by mouth three times a day gabapentin 2021-0 Yes [id number] Take 1 cap Univers 100 mg 8-16 by mouth ity of capsule 00:00: at [place] 00 bedtime, Medical titrate Branch medication up to 3 caps by mouth three times a day gabapentin 2021-0 Yes [id number] Take 1 cap Univers 100 mg 8-16 by mouth ity of capsule 00:00: at [place] [address] bedtime, Medical titrate Branch medication up to 3 caps by mouth three times a day gabapentin 2021-0 202- No [id number] Take 1 cap Univers 100 mg 8-16 10-28 by mouth ity of capsule 00:00: 00:00 at [place] 00 :00 bedtime, Medical titrate Branch medication up to 3 caps by mouth three times a day DULoxetine 2021-0 2021- No [id number] 20mg Take 1 Univers 20 mg 8-15 -12 capsule by ity of capsule 00:00: 00:00 mouth in [place] 00 :00 the Medical morning. Branch rizatriptan 2021-0 Yes [id number] 10mg Take 1 U nivers (MAXALT) 10 7-29 tablet by ity of mg tablet 00:00: [place] 00 needed for Medical Migraine. Branch May repeat in 2 hours if needed, do not exceed daily recommende d dose rizatriptan 2022-0 Yes [id number] 10mg Take 1 U nivers (MAXALT) 10 7-29 tablet by ity of mg tablet 00:00: mouth [place] 00 needed for Medical Migraine. Branch May repeat in 2 hours if needed, do not exceed daily recommende d dose rizatriptan 2022-0 Yes [id number] 10mg Take 1 U nivers (MAXALT) 10 7-29 tablet by ity of mg tablet 00:00: mouth [place] 00 needed for Medical Migraine. Branch May repeat in 2 hours if needed, do not exceed daily recommende d dose rizatriptan 2022-0 Yes [id number] 10mg Take 1 U nivers (MAXALT) 10 7-29 tablet by ity of mg tablet 00:00: mouth [place] 00 needed for Medical Migraine. Branch May repeat in 2 hours if needed, do not exceed daily recommende d dose rizatriptan 2-0 Yes [id number] 10mg Take 1 U nivers (MAXALT) 10 7-29 tablet by ity of mg tablet 00:00: mouth [place] 00 needed for Medical Migraine. Branch May repeat in 2 hours if needed, do not exceed daily recommende d dose rizatriptan 2-0 Yes [id number] 10mg Take 1 U nivers (MAXALT) 10 7-29 tablet by ity of mg tablet 00:00: mouth [place] 00 needed for Medical Migraine. Branch May repeat in 2 hours if needed, do not exceed daily recommende d dose rizatriptan 2022-0 Yes [id number] 10mg Take 1 U nivers (MAXALT) 10 7-29 tablet by ity of mg tablet 00:00: mouth [place] 00 needed for Medical Migraine. Branch May repeat in 2 hours if needed, do not exceed daily recommende d dose rizatriptan 2022-0 Yes [id number] 10mg Take 1 U nivers (MAXALT) 10 7-29 tablet by ity of mg tablet 00:00: mouth [place] 00 needed for Medical Migraine. Branch May repeat in 2 hours if needed, do not exceed daily recommende d dose rizatriptan 2022-0 Yes [id number] 10mg Take 1 U nivers (MAXALT) 10 7-29 tablet by ity of mg tablet 00:00: mouth [place] 00 needed for Medical Migraine. Branch May repeat in 2 hours if needed, do not exceed daily recommende d dose rizatriptan 2022-0 Yes [id number] 10mg Take 1 [facility] n[facility] (MAXALT) 10 7-29 tablet by [facility] [place] mg tablet [place] needed for Medical Migraine. Branch May repeat in 2 hours if needed, do not exceed daily recommende d dose rizatriptan 2022-0 Yes [id number] 10mg Take 1 [facility] (MAXALT) 10 7-29 tablet by [facility] mg tablet 00:00: [place] 00 needed for Medical Migraine. Branch May repeat in 2 hours if needed, do not exceed daily recommende d dose rizatriptan 2-0 Yes [id number] 10mg Take 1 [facility] (MAXALT) 10 7-29 tablet by [facility] [place] mg tablet 00:00: [place] 00 needed for Medical Migraine. Branch May repeat in 2 hours if needed, do not exceed daily recommende d dose rizatriptan 2021-0 Yes [id number] 10mg Take 1 [facility] (MAXALT) 10 7-29 tablet by [facility] mg tablet 00:00: [place] 00 needed for Medical Migraine. Branch May repeat in 2 hours if needed, do not exceed daily recommende d dose rizatriptan 2-0 Yes [id number] 10mg Take 1 [facility] (MAXALT) 10 7-29 tablet by [facility] mg tablet 00:00: [place] 00 needed for Medical Migraine. Branch May repeat in 2 hours if needed, do not exceed daily recommende d dose rizatriptan 2022-0 Yes [id number] 10mg Take 1 [facility] (MAXALT) 10 7-29 tablet by [facility] mg tablet 00:00: [place] 00 needed for Medical Migraine. Branch May repeat in 2 hours if needed, do not exceed daily recommende d dose rizatriptan 2022-0 Yes [id number] 10mg Take 1 [facility] (MAXALT) 10 7-29 tablet by [facility] mg tablet 00:00: mouth [place] 00 needed for Medical Migraine. Branch May repeat in 2 hours if needed, do not exceed daily recommende d dose rizatriptan 2022-0 Yes [id number] 10mg Take 1 [facility] (MAXALT) 10 7-29 tablet by [facility] mg tablet 00:00: mouth [place] 00 needed for Medical Migraine. Branch May repeat in 2 hours if needed, do not exceed daily recommende d dose rizatriptan 2022-0 Yes [id number] 10mg Take 1 [facility] (MAXALT) 10 7-29 tablet by [facility] mg tablet 00:00: mouth [place] 00 needed for Medical Migraine. Branch May repeat in 2 hours if needed, do not exceed daily recommende d dose rizatriptan 2-0 Yes [id number] 10mg Take 1 [facility] (MAXALT) 10 7-29 tablet by [facility] mg tablet 00:00: mouth [place] 00 needed for Medical Migraine. Branch May repeat in 2 hours if needed, do not exceed daily recommende d dose rizatriptan 2-0 Yes [id number] 10mg Take 1 [facility] (MAXALT) 10 7-29 tablet by [facility] mg tablet 00:00: mouth [place] 00 needed for Medical Migraine. Branch May repeat in 2 hours if needed, do not exceed daily recommende d dose rizatriptan 2-0 Yes [id number] 10mg Take 1 [facility] (MAXALT) 10 7-29 tablet by [facility] mg tablet 00:00: mouth [place] 00 needed for Medical Migraine. Branch May repeat in 2 hours if needed, do not exceed daily recommende d dose rizatriptan 2-0 Yes [id number] 10mg Take 1 [facility] (MAXALT) 10 7-29 tablet by [facility] mg tablet 00:00: [place] 00 needed for Medical Migraine. Branch May repeat in 2 hours if needed, do not exceed daily recommende d dose meloxicam 2-0 Yes [id number] 7.5mg Take 1 [facility] 7.5 mg 7-08 tablet by ity of tablet 00:00: mouth once daily as Medical needed for Branch Pain (scale 7-10). meloxicam 2021-0 Yes [id number] 7.5mg Take 1 [facility] 7.5 mg 7-08 tablet by ity of tablet 00:00: mouth once [place] 00 daily as Medical needed for Branch Pain (scale 7-10). meloxicam 2021-0 Yes [id number] 7.5mg Take 1 [facility] 7.5 mg 7-08 tablet by ity of tablet 00:00: mouth once [place] 00 daily as Medical needed for Branch Pain (scale 7-10). meloxicam 0 Yes [id number] 7.5mg Take 1 [facility] 7.5 mg 7-08 tablet by ity of tablet 00:00: mouth once [place] 00 daily as Medical needed for Branch Pain (scale 7-10). meloxicam 0 Yes [id number] 7.5mg Take 1 [facility] 7.5 mg 7-08 tablet by ity of tablet 00:00: mouth once [place] 00 daily as Medical needed for Branch Pain (scale 7-10). meloxicam 0 Yes [id number] 7.5mg Take 1 [facility] 7.5 mg 7-08 tablet by ity of tablet 00:00: mouth once [place] 00 daily as Medical needed for Branch Pain (scale 7-10). meloxicam 0 Yes [id number] 7.5mg Take 1 [facility] 7.5 mg 7-08 tablet by ity of tablet 00:00: mouth once [place] 00 daily as Medical needed for Branch Pain (scale 7-10). meloxicam 2021-0 Yes [id number] 7.5mg Take 1 [facility] 7.5 mg 7-08 tablet by ity of tablet 00:00: mouth once [place] 00 daily as Medical needed for Branch Pain (scale 7-10). meloxicam 0 Yes [id number] 7.5mg Take 1 [facility] 7.5 mg 7-08 tablet by ity of tablet 00:00: mouth once [place] 00 daily as Medical needed for Branch Pain (scale 7-10). meloxicam 2021-0 2021- No [id number] 7.5mg Take 1 [facility] 7.5 mg 7-08 10-28 tablet by [facility] tablet 00:00: 00:[place] :00 daily as Medical needed for Branch Pain (scale 7-10). flash 2022-0 Yes [id number] 1{box} 1 Box [facility] glucose 7-06 9101 every 14 ity of sensor 00:00: (fourteen) [place] (FREESTYLE 00 days. Medical DC 2 Branch SENSOR) Kit flash 2022-0 Yes [id number] 1{box} 1 Box Un brad[facility] glucose 7-06 9101 every 14 ity of sensor 00:00: (fourteen) [place] (FREESTYLE 00 days. Medical DC 2 Branch SENSOR) Kit flash 2022-0 Yes [id number] 1{box} 1 Box Un brad[facility] glucose 7-06 9101 every 14 ity of sensor 00:00: (fourteen) [place] (FREESTYLE 00 days. Medical DC 2 Branch SENSOR) Kit flash 2022-0 Yes [id number] 1{box} 1 Box Un bradly glucose 7-06 9101 every 14 ity of sensor 00:00: (fourteen) [place] (FREESTYLE 00 days. Medical DC 2 Branch SENSOR) Kit flash 2022-0 Yes [id number] 1{box} 1 Box Un brad[facility] glucose 7-06 9101 every 14 ity of sensor 00:00: (fourteen) [place] (FREESTYLE 00 days. Medical DC 2 Branch SENSOR) Kit flash 2022-0 Yes [id number] 1{box} 1 Box Un brad[facility] glucose 7-06 9101 every 14 ity of sensor 00:00: (fourteen) [place] (FREESTYLE 00 days. Medical DC 2 Branch SENSOR) Kit flash 2022-0 Yes [id number] 1{box} 1 Box Un brad[facility] glucose 7-06 9101 every 14 ity of sensor 00:00: (fourteen) [place] (FREESTYLE 00 days. Medical DC 2 Branch SENSOR) Kit flash 2022-0 Yes [id number] 1{box} 1 Box Un brad[facility] glucose 7-06 9101 every 14 ity of sensor 00:00: (fourteen) [place] (FREESTYLE 00 days. Medical DC 2 Branch SENSOR) Kit flash 2022-0 Yes [id number] 1{box} 1 Box Un brad[facility] glucose 7-06 9101 every 14 ity of sensor 00:00: (fourteen) [place] (FREESTYLE 00 days. Medical DC 2 Branch SENSOR) Kit flash 2022-0 Yes [id number] 1{box} 1 Box Un [facility] glucose 7-06 9101 every 14 ity of sensor 00:00: (fourteen) [place] (FREESTYLE 00 days. Medical DC 2 Branch SENSOR) Kit flash 2022-0 Yes [id number] 1{box} 1 Box Un brad[facility] glucose 7-06 9101 every 14 ity of sensor 00:00: (fourteen) [place] (FREESTYLE 00 days. Medical DC 2 Branch SENSOR) Kit flash 2022-0 Yes [id number] 1{box} 1 Box Un brad[facility] glucose 7-06 9101 every 14 ity of sensor 00:00: (fourteen) [place] (FREESTYLE 00 days. Medical DC 2 Branch SENSOR) Kit flash 2022-0 Yes [id number] 1{box} 1 Box Un brad[facility] glucose 7-06 9101 every 14 ity of sensor 00:00: (fourteen) [place] (FREESTYLE 00 days. Medical DC 2 Branch SENSOR) Kit flash 2022-0 Yes [id number] 1{box} 1 Box Un br[facility] glucose 7-06 9101 every 14 ity of sensor 00:00: (fourteen) [place] (FREESTYLE 00 days. Medical DC 2 Branch SENSOR) Kit flash 2022-0 Yes [id number] 1{box} 1 Box Un brad[facility] glucose 7-06 9101 every 14 ity of sensor 00:00: (fourteen) [place] (FREESTYLE 00 days. Medical DC 2 Branch SENSOR) Kit flash 2022-0 Yes [id number] 1{box} 1 Box Un brad[facility] glucose 7-06 9101 every 14 ity of sensor 00:00: (fourteen) [place] (FREESTYLE 00 days. Medical DC 2 Branch SENSOR) Kit flash 2022-0 Yes [id number] 1{box} 1 Box Un [facility] glucose 7-06 9101 every 14 ity of sensor 00:00: (fourteen) [place] (FREESTYLE 00 days. Medical DC 2 Branch SENSOR) Kit flash 2022-0 Yes [id number] 1{box} 1 Box Un brad[facility] glucose 7-06 9101 every 14 ity of sensor 00:00: (fourteen) [place] (FREESTYLE 00 days. Medical DC 2 Branch SENSOR) Kit flash 2022-0 Yes [id number] 1{box} 1 Box Un br[facility] glucose 7-06 9101 every 14 ity of sensor 00:00: (fourteen) [place] (FREESTYLE 00 days. Medical DC 2 Branch SENSOR) Kit flash 2021-0 Yes [id number] 1{box} 1 Box Un br[facility] glucose 7-06 9101 every 14 ity of sensor 00:00: (fourteen) [place] (FREESTYLE 00 days. Medical DC 2 Branch SENSOR) Kit flash 2021-0 Yes [id number] 1{box} 1 Box Un [facility] glucose 7-06 9101 every 14 ity of sensor 00:00: (fourteen) [place] (FREESTYLE 00 days. Medical DC 2 Branch SENSOR) Kit flash 2021-0 Yes [id number] 1{box} 1 Box Un [facility] glucose 7-06 9101 every 14 ity of sensor 00:00: (fourteen) [place] (FREESTYLE 00 days. Medical DC 2 Branch SENSOR) Kit insulin 2021- No [id number] 15U inject 15 [facility] aspart 02-05 09-08 9101 Units ity of U-100 00:00: 00:00 under the [place] (NOVOLOG 00 :00 skin 3 Medical FLEXPEN (three) Branch U-100 times INSULIN) daily 100 unit/mL before (3 mL) meals. injection flash 2021-0 Yes [id number] 1{box} 1 Box Unive rs glucose 4-25 daily. ity of scanning 00:00: [place] reader 00 Medical (FREESTYLE Branch DC 2 READER) Misc insulin 2022-0 Yes [id number] 30U inject 30 [facility] degludec 4-25 Units ity of (TRESIBA 00:00: [place] FLEXTOUCH 00 skin at Medical U-100) 100 bedtime. Branc h unit/mL (3 mL) InPn flash 2021-0 Yes [id number] 1{box} 1 Box Unive rs glucose 4-25 daily. ity of scanning 00:00: [place] reader 00 Medical (FREESTYLE Branch DC 2 READER) Misc insulin 2022-0 Yes [id number] 30U inject 30 [facility] degludec 4-25 Units ity of (TRESIBA 00:00: [place] FLEXTOUCH 00 skin at Medical U-100) 100 bedtime. Branc h unit/mL (3 mL) InPn flash 202-0 Yes [id number] 1{box} 1 Box Unive rs glucose 4-25 daily. ity of scanning 00:00: [place] reader 00 Medical (FREESTYLE Branch DC 2 READER) Misc insulin 2021-0 Yes [id number] 30U inject 30 [facility] degludec 4-25 Units ity of (TRESIBA 00:00: [place] FLEXTOUCH 00 skin at Medical U-100) 100 bedtime. Branc h unit/mL (3 mL) InPn flash 202-0 Yes [id number] 1{box} 1 Box Unive rs glucose 4-25 daily. ity of scanning 00:00: [place] reader 00 Medical (FREESTYLE Branch DC 2 READER) Misc insulin 2021-0 Yes [id number] 30U inject 30 [facility] degludec 4-25 Units ity of (TRESIBA 00:00: [place] FLEXTOUCH 00 skin at Medical U-100) 100 bedtime. Branc h unit/mL (3 mL) InPn flash 2021-0 Yes [id number] 1{box} 1 Box Unive rs glucose 4-25 daily. ity of scanning 00:00: [place] reader 00 Medical (FREESTYLE Branch DC 2 READER) Misc insulin 2021-0 Yes [id number] 30U inject 30 [facility] degludec 4-25 Units ity of (TRESIBA 00:00: [place] FLEXTOUCH 00 skin at Medical U-100) 100 bedtime. Branc h unit/mL (3 mL) InPn flash 2021-0 Yes [id number] 1{box} 1 Box Unive rs glucose 4-25 daily. ity of scanning 00:00: [place] reader 00 Medical (FREESTYLE Branch DC 2 READER) Misc insulin 2021-0 Yes [id number] 30U inject 30 [facility]ivers degludec 4-25 Units ity of (TRESIBA 00:00: [place] FLEXTOUCH 00 skin at Medical U-100) 100 bedtime. Branc h unit/mL (3 mL) InPn flash 2022-0 Yes [id number] 1{box} 1 Box Unive rs glucose 4-25 daily. ity of scanning 00:00: [place] reader 00 Medical (FREESTYLE Branch DC 2 READER) Misc insulin 2022-0 Yes [id number] 30U inject 30 [facility] nivers degludec 4-25 Units ity of (TRESIBA 00:00: [place] FLEXTOUCH 00 skin at Medical U-100) 100 bedtime. Branc h unit/mL (3 mL) InPn flash 2021-0 Yes [id number] 1{box} 1 Box Unive rs glucose 4-25 daily. ity of scanning 00:00: [place] reader 00 Medical (FREESTYLE Branch DC 2 READER) Misc insulin 0 Yes [id number] 30U inject 30 [facility]ivers degludec 4-25 Units ity of (TRESIBA 00:00: [place] FLEXTOUCH 00 skin at Medical U-100) 100 bedtime. Branc h unit/mL (3 mL) InPn flash 2021-0 Yes [id number] 1{box} 1 Box Unive rs glucose 4-25 daily. ity of scanning 00:00: [place] reader 00 Medical (FREESTYLE Branch DC 2 READER) Misc insulin 2021-0 Yes [id number] 30U inject 30 [facility] nivers degludec 4-25 Units ity of (TRESIBA 00:00: [place] FLEXTOUCH 00 skin at Medical U-100) 100 bedtime. Branc h unit/mL (3 mL) InPn flash 2021-0 Yes [id number] 1{box} 1 Box Unive rs glucose 4-25 daily. ity of scanning 00:00: [place] reader 00 Medical (FREESTYLE Branch CD 2 READER) Misc insulin 2021-0 Yes [id number] 30U inject 30 [facility] nivers degludec 4-25 Units ity of (TRESIBA 00:00: [place] FLEXTOUCH 00 skin at Medical U-100) 100 bedtime. Branc h unit/mL (3 mL) InPn flash 2021-0 Yes [id number] 1{box} 1 Box Unive rs glucose 4-25 daily. ity of scanning 00:00: [place] reader 00 Medical (FREESTYLE Branch DC 2 READER) Misc insulin 2021-0 Yes [id number] 30U inject 30 [facility] nivers degludec 4-25 Units ity of (TRESIBA 00:00: [place] FLEXTOUCH 00 skin at Medical U-100) 100 bedtime. Branc h unit/mL (3 mL) InPn flash 202-0 Yes [id number] 1{box} 1 Box Unive rs glucose 4-25 daily. ity of scanning 00:00: [place] reader 00 Medical (FREESTYLE Branch DC 2 READER) Misc insulin 2021-0 Yes [id number] 30U inject 30 [facility] nivers degludec 4-25 Units ity of (TRESIBA 00:00: [place] FLEXTOUCH 00 skin at Medical U-100) 100 bedtime. Branc h unit/mL (3 mL) InPn flash 202-0 Yes [id number] 1{box} 1 Box Unive rs glucose 4-25 daily. ity of scanning 00:00: [place] reader 00 Medical (FREESTYLE Branch DC 2 READER) Misc insulin 2021-0 Yes [id number] 30U inject 30 [facility] degludec 4-25 Units ity of (TRESIBA 00:00: [place] FLEXTOUCH 00 skin at Medical U-100) 100 bedtime. Branc h unit/mL (3 mL) InPn flash 2021-0 Yes [id number] 1{box} 1 Box Unive rs glucose 4-25 daily. ity of scanning 00:00: [place] reader 00 Medical (FREESTYLE Branch DC 2 READER) Misc insulin 2021-0 Yes [id number] 30U inject 30 [facility] nivers degludec 4-25 Units ity of (TRESIBA 00:00: [place] FLEXTOUCH 00 skin at Medical U-100) 100 bedtime. Branc h unit/mL (3 mL) InPn flash 2021-0 Yes [id number] 1{box} 1 Box Unive rs glucose 4-25 daily. ity of scanning 00:00: [place] reader 00 Medical (FREESTYLE Branch DC 2 READER) Misc insulin 2-0 Yes [id number] 30U inject 30 U nivers degludec 4-25 Units ity of (TRESIBA 00:00: [place] FLEXTOUCH 00 skin at Medical U-100) 100 bedtime. Branc h unit/mL (3 mL) InPn flash 202-0 Yes [id number] 1{box} 1 Box Unive rs glucose 4-25 daily. ity of scanning 00:00: [place] reader 00 Medical (FREESTYLE Branch DC 2 READER) Misc insulin 202-0 Yes [id number] 30U inject 30 U nivers degludec 4-25 Units ity of (TRESIBA 00:00: [place] FLEXTOUCH 00 skin at Medical U-100) 100 bedtime. Branc h unit/mL (3 mL) InPn flash 2022-0 Yes [id number] 1{box} 1 Box Unive rs glucose 4-25 daily. ity of scanning 00:00: [place] reader 00 Medical (FREESTYLE Branch DC 2 READER) Misc insulin 2021-0 Yes [id number] 30U inject 30 U nivers degludec 4-25 Units ity of (TRESIBA 00:00: [place] the [place] FLEXTOUCH 00 skin at Medical U-100) 100 bedtime. Branc h unit/mL (3 mL) InPn flash 2021-0 Yes [id number] 1{box} 1 Box Unive rs glucose 4-25 daily. ity of scanning 00:00: [place] reader 00 Medical (FREESTYLE Branch DC 2 READER) Misc insulin 2021-0 Yes [id number] 30U inject 30 U nivers degludec 4-25 Units ity of (TRESIBA 00:00: [place] the [place] FLEXTOUCH 00 skin at Medical U-100) 100 bedtime. Branc h unit/mL (3 mL) InPn flash 202-0 Yes [id number] 1{box} 1 Box Unive rs glucose 4-25 daily. ity of scanning 00:00: [place] reader 00 Medical (FREESTYLE Branch DC 2 READER) Misc insulin 2021-0 Yes [id number] 30U inject 30 U nivers degludec 4-25 Units ity of (TRESIBA 00:00: [place] the [place] FLEXTOUCH 00 skin at Medical U-100) 100 bedtime. Branc h unit/mL (3 mL) InPn flash 2022-0 Yes [id number] 1{box} 1 Box Unive rs glucose 4-25 daily. ity of scanning 00:00: [place] reader 00 Medical (FREESTYLE Branch DC 2 READER) Misc insulin 2021-0 Yes [id number] 30U inject 30 U nivers degludec 4-25 Units ity of (TRESIBA 00:00: [place] the [place] FLEXTOUCH 00 skin at Medical U-100) 100 bedtime. Branc h unit/mL (3 mL) InPn flash Yes [id number] 1{box} 1 Box Unive rs glucose 4-25 daily. ity of scanning 00:00: [place] reader 00 Medical (FREESTYLE Branch DC 2 READER) Misc insulin Yes [id number] 30U inject 30 U nivers degludec 4-25 Units ity of (TRESIBA 00:00: [place] FLEXTOUCH 00 skin at Medical U-100) 100 bedtime. Branc h unit/mL (3 mL) InPn flash Yes [id number] 1{box} 1 Box Unive rs glucose 4-25 daily. ity of scanning 00:00: [place] reader 00 Medical (FREESTYLE Branch DC 2 READER) Misc insulin Yes [id number] 30U inject 30 U nivers degludec 4-25 Units ity of (TRESIBA 00:00: [place] FLEXTOUCH 00 skin at Medical U-100) 100 bedtime. Branc h unit/mL (3 mL) InPn pen needle, 2020-08 Yes [id number] 200{eac 200 Each 6 [facility] diabetic 31 0-05 h} (six) ity of gauge x 00:00: times [place] 1/6" Ndle 00 daily. Medical Branch pen needle, 2020-08 Yes [id number] 200{eac 200 Each 6 [facility] diabetic 31 0-05 h} (six) ity of gauge x 00:00: times [place] 1/6" Ndle 00 daily. Medical Branch pen needle, 2020-08 Yes [id number] 200{eac 200 Each 6 [facility] diabetic 31 0-05 h} (six) ity of gauge x 00:00: times [place] 1/6" Ndle 00 daily. Medical Branch pen needle, 2020-08 Yes [id number] 200{eac 200 Each 6 [facility] diabetic 31 0-05 h} (six) ity of gauge x 00:00: times [place] 1/6" Ndle 00 daily. Medical Branch pen needle, 2020-08 Yes [id number] 200{eac 200 Each 6 [facility] diabetic 31 0-05 h} (six) ity of gauge x 00:00: times [place] 08/08" Ndle 00 daily. Medical Branch pen needle, 2020-08 Yes [id number] 200{eac 200 Each 6 [facility] diabetic 31 0-05 h} (six) ity of gauge x 00:00: times [place] 08/08" Ndle 00 daily. Medical Branch pen needle, 2020-08 Yes [id number] 200{eac 200 Each 6 [facility] diabetic 31 0-05 h} (six) ity of gauge x 00:00: times [place] 08/08" Ndle 00 daily. Medical Branch pen needle, 2020-08 Yes [id number] 200{eac 200 Each 6 [facility] diabetic 31 0-05 h} (six) ity of gauge x 00:00: times [place] 08/08" Ndle 00 daily. Medical Branch pen needle, 2020-08 Yes [id number] 200{eac 200 Each 6 [facility] diabetic 31 0-05 h} (six) ity of gauge x 00:00: times [place] 08/08" Ndle 00 daily. Medical Branch pen needle, 2020-08 Yes [id number] 200{eac 200 Each 6 [facility] diabetic 31 0-05 h} (six) ity of gauge x 00:00: times [place] 08/08" Ndle 00 daily. Medical Branch pen needle, 2020-08 Yes [id number] 200{eac 200 Each 6 [facility] diabetic 31 0-05 h} (six) ity of gauge x 00:00: times [place] 08/08" Ndle 00 daily. Medical Branch pen needle, 2020-08 Yes [id number] 200{eac 200 Each 6 [facility] diabetic 31 0-05 h} (six) ity of gauge x 00:00: times [place] 08/08" Ndle 00 daily. Medical Branch pen needle, 2020-08 Yes [id number] 200{eac 200 Each 6 [facility] diabetic 31 0-05 h} (six) ity of gauge x 00:00: times [place] 08/08" Ndle 00 daily. Medical Branch pen needle, 2020-08 Yes [id number] 200{eac 200 Each 6 [facility] diabetic 31 0-05 h} (six) ity of gauge x 00:00: times [place] 08/08" Ndle 00 daily. Medical Branch pen needle, 2020-08 Yes [id number] 200{eac 200 Each 6 [facility] diabetic 31 0-05 h} (six) ity of gauge x 00:00: times [place] 08/08" Ndle 00 daily. Medical Branch pen needle, 2020-08 Yes [id number] 200{eac 200 Each 6 [facility] diabetic 31 0-05 h} (six) ity of gauge x 00:00: times [place] 08/08" Ndle 00 daily. Medical Branch pen needle, 2020-08 Yes [id number] 200{eac 200 Each 6 [facility] diabetic 31 0-05 h} (six) ity of gauge x 00:00: times [place] 08/08" Ndle 00 daily. Medical Branch pen needle, 2020-08 Yes [id number] 200{eac 200 Each 6 [facility] diabetic 31 0-05 h} (six) ity of gauge x 00:00: times [place] 08/08" Ndle 00 daily. Medical Branch pen needle, 2020-08 Yes [id number] 200{eac 200 Each 6 [facility] diabetic 31 0-05 h} (six) ity of gauge x 00:00: times 08/08" Ndle 00 daily. Medical Branch pen needle, 2020-08 Yes [id number] 200{eac 200 Each 6 [facility] diabetic 31 0-05 h} (six) ity of gauge x 00:00: times [place] 08/08" Ndle 00 daily. Medical Branch pen needle, 2020-08 Yes [id number] 200{eac 200 Each 6 [facility] diabetic 31 0-05 h} (six) ity of gauge x 00:00: times 08/08" Ndle 00 daily. Medical Branch pen needle, 2020-08 Yes [id number] 200{eac 200 Each 6 [facility] diabetic 31 0-05 h} (six) ity of gauge x 00:00: times [place] 08/08" Ndle 00 daily. Medical Branch Lancets 2019-08 Yes Patient to [facility] ers Misc 0-06 check ity of 00:00: blood [place] 00 sugar four Medical times Branch daily Lancets 2019-08 Yes Patient to [facility] ers Misc 0-06 check ity of 00:00: blood [place] 00 sugar four Medical times Branch daily Lancets 2019-08 Yes Patient to [facility] ers Misc 0-06 check ity of 00:00: blood [place] 00 sugar four Medical times Branch daily Lancets 2019-08 Yes Patient to [facility] ers Misc 0-06 check ity of 00:00: blood [place] 00 sugar four Medical times Branch daily Lancets 2020- Yes Patient to [facility] ers Misc 0-06 check ity of 00:00: blood [place] 00 sugar four Medical times Branch daily Lancets 2020- Yes Patient to [facility] ers Misc 0-06 check ity of 00:00: blood [place] 00 sugar four Medical times Branch daily Lancets 2020- Yes Patient to [facility] ers Misc 0-06 check ity of 00:00: blood [place] 00 sugar four Medical times Branch daily Lancets 2020- Yes Patient to [facility] ers Misc 0-06 check ity of 00:00: blood [place] 00 sugar four Medical times Branch daily Lancets 2020- Yes Patient to [facility] Misc 0-06 check ity of 00:00: blood [place] 00 sugar four Medical times Branch daily Lancets 2020- Yes Patient to [facility] Misc 0-06 check ity of 00:00: blood [place] 00 sugar four Medical times Branch daily Lancets 2020- Yes Patient to [facility] Misc 0-06 check ity of 00:00: blood [place] 00 sugar four Medical times Branch daily Lancets 2020- Yes Patient to [facility] Misc 0-06 check ity of 00:00: blood [place] 00 sugar four Medical times Branch daily Lancets 2020- Yes Patient to [facility] Misc 0-06 check ity of 00:00: blood [place] 00 sugar four Medical times Branch daily Lancets 2020- Yes Patient to [facility] Misc 0-06 check ity of 00:00: blood [place] 00 sugar four Medical times Branch daily Lancets 2020- Yes Patient to [facility] ers Misc 0-06 check ity of 00:00: blood [place] 00 sugar four Medical times Branch daily Lancets 2020- Yes Patient to [facility] Misc 0-06 check ity of 00:00: blood [place] 00 sugar four Medical times Branch daily Lancets 2020- Yes Patient to [facility] ers Misc 0-06 check ity of 00:00: blood [place] 00 sugar four Medical times Branch daily Lancets 2020- Yes Patient to [facility] Misc 0-06 check ity of 00:00: blood [place] 00 sugar four Medical times Branch daily Lancets 2020- Yes Patient to [facility] Misc 0-06 check ity of 00:00: blood [place] 00 sugar four Medical times Branch daily Lancets 2020- Yes Patient to [facility] Misc 0-06 check ity of 00:00: blood [place] 00 sugar four Medical times Branch daily Lancets 2019-08 Yes Patient to [facility] Misc 0-06 check ity of 00:00: blood [place] 00 sugar four Medical times Branch daily Lancets 2019-08 Yes Patient to [facility] Misc 0-06 check ity of 00:00: [...] [facility] MG tablet 12:40: depression daily. [address] traZODone 2016-08 Yes insomnia 50mg [...] [facility] MG tablet 12:40: depression daily. [address] traZODone 2016-08 Yes insomnia 50mg [...] [facility] MG tablet 12:40: depression daily. [address] traZODone 2016-08 Yes insomnia 50mg QD Take [address] [facility] (DESYREL) 1-17 associated by mouth [facility] MG 12:40: with nightly. Medical tablet 09 depression [place] ondansetron 2016-08 Yes 4mg Take 4 mg [...] Luke s MG tablet 12:40: depression daily. [address] traZODone 2016-08 Yes insomnia 50mg QD Take [address] [facility] (DESYREL) 1-17 associated by mouth [facility] 50 MG 12:40: with nightly. Medical tablet 09 [facility] ondansetron 2016-08 Yes 4mg Take 4 [...] daily before meals Use as directed.. insulin 2017 Yes 30U QD [facility]ject [facility] [...] insulin Yes If [facility] regular 9-07 HP=[id number] [facility] (HUMULIN 00:00: , give Medical R,NOVOLIN 00 1unitIf Center R) 100 AD=003-671 unit/mL , give injection 2unitsIf DO=937-992 , give 4unitsIf RR=284-547 , give 6unitsIf DQ=950-808 , give 8units. insulin [address] [facility] regular 9-07 KA=408-961 [facility] (HUMULIN 00:00: , give Medical R,NOVOLIN 00 1unitIf [facility] R) 100 PU=115-337 unit/mL , give injection 2unitsIf GF=237-854 , give 4unitsIf OU=977-442 , give 6unitsIf GF=159-002 , give 8units. insulin [address] [facility] 9- CO=806-448 [facility] ([facility]: , give Medical R,NOVOLIN 00 1unitIf Center R) 100 HV=529-183 unit/mL , give injection 2unitsIf NA=077-846 , give 4unitsIf HI=559-833 , give 6unitsIf SJ=116-370 , give 8units. insulin Yes If [facility] regular 9- MW=717-821 [facility] (HUMULIN [facility]:00: , give Medical R,NOVOLIN 00 1unitIf Center R) 100 MO=574-058 unit/mL , give injection 2unitsIf NQ=543-865 , give 4unitsIf FF=679-656 , give 6unitsIf ZP=275-841 , give 8units. Immunizations Ordered Immunization Filled Immunization Date Status Commen ts Source Name Name Influenza Virus 2021-11-01 Completed [facility] Vaccine [facility], 00:00:00 [facility] dical Preserv and ABX Free Bran ch 6 MO-64 YRS Influenza Virus 2021-11-01 Completed [facility]it [facility] of Vaccine 00:00:00 [facility] Influenza Virus 2021-11-01 Completed [facility] y of Vaccine Quad IM, 00:00:00 [facility] dical Preserv and ABX Free Bran ch 6 MO-64 YRS Influenza Virus 2021-11-01 Completed [facility]it y of Vaccine 00:00:00 [facility] Influenza Virus 2021-11-01 Completed [facility] y of Vaccine Quad IM, 00:00:00 [facility] dical Preserv and ABX Free Bran ch 6 MO-64 YRS Influenza Virus 2021-11-01 Completed [facility] y of Vaccine 00:00:00 [facility] Influenza Virus 2021-11-01 Completed [facility] of Vaccine Quad IM, 00:00:00 [place] [facility] dical Preserv and ABX Free Bran ch 6 MO-64 YRS Influenza Virus 2021-11-01 Completed [facility] y of Vaccine 00:00:00 [facility] Influenza Virus 2021-11-01 Completed [facility] y of Vaccine Quad IM, 00:00:00 [facility] dical Preserv and ABX Free Bran ch 6 MO-64 YRS Influenza Virus 2021-11-01 Completed [facility] y of Vaccine 00:00:00 [facility] Influenza Virus 2021-11-01 Completed [facility] y of Vaccine Quad IM, 00:00:00 [facility] dical Preserv and ABX Free Bran ch 6 MO-64 YRS Influenza Virus 2021-11-01 Completed [facility]it y of Vaccine 00:00:00 [facility] Influenza Virus 2021-11-01 Completed [facility] y of Vaccine Quad IM, 00:00:00 [facility] dical Preserv and ABX Free Bran ch 6 MO-64 YRS Influenza Virus 2021-11-01 Completed [facility] y of Vaccine 00:00:00 [facility] Influenza Virus 2021-11-01 Completed [facility] of Vaccine Quad IM, 00:00:00 [facility] dical Preserv and ABX Free Bran ch 6 MO-64 YRS Influenza Virus 2021-11-01 Completed [facility] of Vaccine 00:00:00 [facility] Influenza Virus 2021-11-01 Completed [facility] y of Vaccine Quad IM, 00:00:00 [facility] dical Preserv and ABX Free Bran ch 6 MO-64 YRS Influenza Virus 2021-11-01 Completed [facility] y of Vaccine 00:00:00 [facility] Influenza Virus 2021-11-01 Completed [facility] of Vaccine Quad IM, 00:00:00 [place] [facility] dical Preserv and ABX Free Bran ch 6 MO-64 YRS Influenza Virus 2021-11-01 Completed [facility] of Vaccine 00:00:00 [facility] Influenza Virus 2021-11-01 Completed [facility] of Vaccine Quad IM, 00:00:00 [place] [facility] dical Preserv and ABX Free Bran ch 6 MO-64 YRS Influenza Virus 2021-11-01 Completed [facility] y of Vaccine 00:00:00 [facility] Influenza Virus 2021-11-01 Completed [facility] of Vaccine Quad IM, 00:00:00 [place] [facility] dical Preserv and ABX Free Bran ch 6 MO-64 YRS Influenza Virus 2021-11-01 Completed [facility] y of Vaccine 00:00:00 [facility] Influenza Virus 2021-11-01 Completed [facility] of Vaccine Quad IM, 00:00:00 [place] [facility] dical Preserv and ABX Free Bran ch 6 MO-64 YRS Influenza Virus 2021-11-01 Completed [facility] y of Vaccine 00:00:00 [facility] Influenza Virus 2021-11-01 Completed [facility] of Vaccine Quad IM, 00:00:00 [place] [facility] dical Preserv and ABX Free Bran ch 6 MO-64 YRS Influenza Virus 2021-11-01 Completed [facility] y of Vaccine 00:00:00 [facility] Influenza Virus 2021-11-01 Completed [facility] y of Vaccine Quad IM, 00:00:00 [facility] dical Preserv and ABX Free Bran ch 6 MO-64 YRS Influenza Virus 2021-11-01 Completed [facility] y of Vaccine 00:00:00 [facility] Influenza Virus 2021-11-01 Completed [facility] y of Vaccine Quad IM, 00:00:00 [facility] dical Preserv and ABX Free Bran ch 6 MO-64 YRS Influenza Virus 2021-11-01 Completed [facility]it y of Vaccine 00:00:00 [facility] Influenza Virus 2021-11-01 Completed [facility] y of Vaccine Quad IM, 00:00:00 [facility] dical Preserv and ABX Free Bran ch 6 MO-64 YRS Influenza Virus 2021-11-01 Completed [facility] y of Vaccine 00:00:00 [facility] Influenza Virus 2021-11-01 Completed [facility] of Vaccine Quad IM, 00:00:00 [place] [facility] dical Preserv and ABX Free Bran ch 6 MO-64 YRS Influenza Virus 2021-11-01 Completed [facility] of Vaccine 00:00:00 [facility] Influenza Virus 2021-11-01 Completed [facility] y of Vaccine Quad IM, 00:00:00 [place] [facility] dical Preserv and ABX Free Bran ch 6 MO-64 YRS Influenza Virus 2021-11-01 Completed [facility] y of Vaccine 00:00:00 [facility] Influenza Virus 2021-11-01 Completed [facility] y of Vaccine Quad IM, 00:00:00 [facility] dical Preserv and ABX Free Bran ch 6 MO-64 YRS Influenza Virus 2021-11-01 Completed [facility]it y of Vaccine 00:00:00 [facility] Influenza Virus 2021-11-01 Completed [facility] of Vaccine Quad IM, 00:00:00 [place] [facility] dical Preserv and ABX Free Bran ch 6 MO-64 YRS Influenza Virus 2021-11-01 Completed [facility] y of Vaccine 00:00:00 [facility] Influenza Virus 2021-11-01 Completed [facility] of Vaccine Quad IM, 00:00:00 [place] [facility] dical Preserv and ABX Free Bran ch 6 MO-64 YRS Influenza Virus 2021-11-01 Completed [facility] of Vaccine 00:00:00 [facility] SARS-COV-2 COVID-19 2020-11-10 Completed Unive rsity of PFIZER VACCINE 00:00:00 [facility] SARS-COV-2 COVID-19 2020-11-10 Completed Unive rsity of PFIZER VACCINE 00:00:00 [facility] SARS-COV-2 COVID-19 2020-11-10 Completed Unive rsity of PFIZER VACCINE 00:00:00 [facility] SARS-COV-2 COVID-19 2020-11-10 Completed Unive rsity of PFIZER VACCINE 00:00:00 [facility] SARS-COV-2 COVID-19 2020-11-10 Completed Unive rsity of PFIZER VACCINE 00:00:00 [facility] SARS-COV-2 COVID-19 2020-11-10 Completed Unive rsity of PFIZER VACCINE 00:00:00 [facility] SARS-COV-2 COVID-19 2020-11-10 Completed Unive rsity of PFIZER VACCINE 00:00:00 [facility] SARS-COV-2 COVID-19 2020-11-10 Completed Unive rsity of PFIZER VACCINE 00:00:00 [facility] SARS-COV-2 COVID-19 2020-11-10 Completed Unive rsity of PFIZER VACCINE 00:00:00 [facility] SARS-COV-2 COVID-19 2020-11-10 Completed Unive rsity of PFIZER VACCINE 00:00:00 [facility] SARS-COV-2 COVID-19 2020-11-10 Completed Unive rsity of PFIZER VACCINE 00:00:00 [facility] SARS-COV-2 COVID-19 2020-11-10 Completed Unive rsity of PFIZER VACCINE 00:00:00 [facility] SARS-COV-2 COVID-19 2020-11-10 Completed Unive rsity of PFIZER VACCINE 00:00:00 [facility] SARS-COV-2 COVID-19 2020-11-10 Completed Unive rsity of PFIZER VACCINE 00:00:00 [facility] SARS-COV-2 COVID-19 2020-11-10 Completed Unive rsity of PFIZER VACCINE 00:00:00 [facility] SARS-COV-2 COVID-19 2020-11-10 Completed Unive rsity of PFIZER VACCINE 00:00:00 [facility] SARS-COV-2 COVID-19 2020-11-10 Completed Unive rsity of PFIZER VACCINE 00:00:00 [facility] SARS-COV-2 COVID-19 2020-11-10 Completed Unive rsity of PFIZER VACCINE 00:00:00 [facility] SARS-COV-2 COVID-19 2020-11-10 Completed [facility]ive rsity of PFIZER VACCINE 00:00:00 [facility] SARS-COV-2 COVID-19 2020-11-10 Completed Unive rsity of PFIZER VACCINE 00:00:00 [facility] SARS-COV-2 COVID-19 2020-11-10 Completed Unive rsity of PFIZER VACCINE 00:00:00 [facility] SARS-COV-2 COVID-19 2020-11-10 Completed Unive rsity of PFIZER VACCINE 00:00:00 [facility] SARS-COV-2 COVID-19 2020-10-20 Completed Unive rsity of PFIZER VACCINE 00:00:00 [facility] SARS-COV-2 COVID-19 2020-10-20 Completed Unive rsity of PFIZER VACCINE 00:00:00 [facility] SARS-COV-2 COVID-19 2020-10-20 Completed Unive rsity of PFIZER VACCINE 00:00:00 [facility] SARS-COV-2 COVID-19 2020-10-20 Completed [facility]ive rsity of PFIZER VACCINE 00:00:00 [facility] SARS-COV-2 COVID-19 2020-10-20 Completed Unive rsity of PFIZER VACCINE 00:00:00 [facility] SARS-COV-2 COVID-19 2020-10-20 Completed [facility]ive rsity of PFIZER VACCINE 00:00:00 [facility] SARS-COV-2 COVID-19 2020-10-20 Completed [facility]ive rsity of PFIZER VACCINE 00:00:00 [facility] SARS-COV-2 COVID-19 2020-10-20 Completed [facility]ive rsity of PFIZER VACCINE 00:00:00 [facility] SARS-COV-2 COVID-19 2020-10-20 Completed [facility]ive rsity of PFIZER VACCINE 00:00:00 [facility] SARS-COV-2 COVID-19 2020-10-20 Completed [facility]ive rsity of PFIZER VACCINE 00:00:00 [facility] SARS-COV-2 COVID-19 2020-10-20 Completed [facility]ive rsity of PFIZER VACCINE 00:00:00 [facility] SARS-COV-2 COVID-19 2020-10-20 Completed [facility]ive rsity of PFIZER VACCINE 00:00:00 [facility] SARS-COV-2 COVID-19 2020-10-20 Completed [facility]ive rsity of PFIZER VACCINE 00:00:00 [facility] SARS-COV-2 COVID-19 2020-10-20 Completed [facility]ive rsity of PFIZER VACCINE 00:00:00 [facility] SARS-COV-2 COVID-19 2020-10-20 Completed [facility]ive rsity of PFIZER VACCINE 00:00:00 [facility] SARS-COV-2 COVID-19 2020-10-20 Completed [facility]ive rsity of PFIZER VACCINE 00:00:00 [facility] SARS-COV-2 COVID-19 2020-10-20 Completed [facility]ive rsity of PFIZER VACCINE 00:00:00 [facility] SARS-COV-2 COVID-19 2020-10-20 Completed [facility]ive rsity of PFIZER VACCINE 00:00:00 [facility] SARS-COV-2 COVID-19 2020-10-20 Completed [facility]ive rsity of PFIZER VACCINE 00:00:00 [facility] SARS-COV-2 COVID-19 2020-10-20 Completed [facility]ive rsity of PFIZER VACCINE 00:00:00 [facility] SARS-COV-2 COVID-19 2020-10-20 Completed Unive rsity of PFIZER VACCINE 00:00:00 [facility] SARS-COV-2 COVID-19 2020-10-20 Completed Unive rsity of PFIZER VACCINE 00:00:00 [facility] TDAP 2020-09-13 Completed University of 00:00:00 [facility] TDAP 2020-09-13 Completed University of 00:00:00 [facility] TDAP 2020-09-13 Completed University of 00:00:00 [facility] TDAP 2020-09-13 Completed University of 00:00:00 [facility] TDAP 2020-09-13 Completed University of 00:00:00 [facility] TDAP 2020-09-13 Completed University of 00:00:00 [facility] TDAP 2020-09-13 Completed University of 00:00:00 [facility] TDAP 2020-09-13 Completed University of 00:00:00 [facility] TDAP 2020-09-13 Completed University of 00:00:00 [facility] TDAP 2020-09-13 Completed University of 00:00:00 [facility] TDAP 2020-09-13 Completed University of 00:00:00 [facility] TDAP 2020-09-13 Completed University of 00:00:00 [facility] TDAP 2020-09-13 Completed University of 00:00:00 [facility] TDAP 2020-09-13 Completed University of 00:00:00 [facility] TDAP 2020-09-13 Completed University of 00:00:00 [facility] TDAP 2020-09-13 Completed University of 00:00:00 [facility] TDAP 2020-09-13 Completed University of 00:00:00 [facility] TDAP 2020-09-13 Completed University of 00:00:00 [facility] TDAP 2020-09-13 Completed University of 00:00:00 [facility] TDAP 2020-09-13 Completed University of 00:00:00 [facility] TDAP 2020-09-13 Completed University of 00:00:00 [facility] TDAP 2020-09-13 Completed University of 00:00:00 [facility] Influenza Virus 2020-06-11 Completed Universit y [...] y of Vaccine Quad .5 mL 00:00:00 [place] [facility] 6+ MO Branch Influenza Virus [...] y of Vaccine Quad .5 mL 00:00:00 [facility] 6+ MO Branch HPV9 2017-07-14 Completed University of 00:00:00 [facility] HPV9 2017-07-14 Completed University of 00:00:00 [facility] HPV9 2017-07-14 Completed University of 00:00:00 [facility] HPV9 2017-07-14 Completed [facility] of 00:00:00 [facility] HPV9 2017-07-14 Completed [facility] of 00:00:00 [facility] HPV9 2017-07-14 Completed [facility] of 00:00:00 [facility] HPV9 2017-07-14 Completed [facility] of 00:00:00 [facility] HPV9 2017-07-14 Completed [facility] of 00:00:00 [facility] HPV9 2017-07-14 Completed [facility] of 00:00:00 [facility] HPV9 2017-07-14 Completed [facility] of 00:00:00 [facility] HPV9 2017-07-14 Completed [facility] of 00:00:00 [facility] HPV9 2017-07-14 Completed [facility] of 00:00:00 [facility] HPV9 2017-07-14 Completed [facility] of 00:00:00 [facility] HPV9 2017-07-14 Completed [facility] of 00:00:00 [facility] HPV9 2017-07-14 Completed [facility] of 00:00:00 [facility] HPV9 2017-07-14 Completed [facility] of 00:00:00 [facility] HPV9 2017-07-14 Completed [facility] of 00:00:00 [facility] HPV9 2017-07-14 Completed [facility] of 00:00:00 [facility] HPV9 2017-07-14 Completed [facility] of 00:00:00 [facility] HPV9 2017-07-14 Completed [facility] of 00:00:00 [facility] HPV9 2017-07-14 Completed [facility] of 00:00:00 [facility] HPV9 2017-07-14 Completed [facility] of 00:00:00 [facility] Influenza Virus 2017-05-18 Completed Universit y of Vaccine (3+ yrs) 00:00:00 [facility] Influenza Virus 2017-05-18 Completed Universit y of Vaccine (3+ yrs) 00:00:00 [facility] Influenza Virus 2017-05-18 Completed Universit y of Vaccine (3+ yrs) 00:00:00 [facility] Influenza Virus 2017-05-18 Completed [facility]it y of Vaccine (3+ yrs) 00:00:00 [facility] Influenza Virus 2017-05-18 Completed [facility]it y of Vaccine (3+ yrs) 00:00:00 [facility] Influenza Virus 2017-05-18 Completed [facility]it y of Vaccine (3+ yrs) 00:00:00 [facility] Influenza Virus 2017-05-18 Completed [facility] y of Vaccine (3+ yrs) 00:00:00 [facility] Influenza Virus 2017-05-18 Completed [facility]it y of Vaccine (3+ yrs) 00:00:00 [facility] Influenza Virus 2017-05-18 Completed [facility]it y of Vaccine (3+ yrs) 00:00:00 [facility] Influenza Virus 2017-05-18 Completed [facility] y of Vaccine (3+ yrs) 00:00:00 [facility] Influenza Virus 2017-05-18 Completed [facility] y of Vaccine (3+ yrs) 00:00:00 [facility] Influenza Virus 2017-05-18 Completed [facility]it y of Vaccine (3+ yrs) 00:00:00 [facility] Influenza Virus 2017-05-18 Completed [facility]it y of Vaccine (3+ yrs) 00:00:00 [facility] Influenza Virus 2017-05-18 Completed [facility] y of Vaccine (3+ yrs) 00:00:00 [facility] Influenza Virus 2017-05-18 Completed [facility] y of Vaccine (3+ yrs) 00:00:00 [facility] Influenza Virus 2017-05-18 Completed [facility]it y of Vaccine (3+ yrs) 00:00:00 [facility] Influenza Virus 2017-05-18 Completed [facility]it y of Vaccine (3+ yrs) 00:00:00 [facility] Influenza Virus 2017-05-18 Completed [facility]it y of Vaccine (3+ yrs) 00:00:00 [facility] Influenza Virus 2017-05-18 Completed [facility] y of Vaccine (3+ yrs) 00:00:00 [facility] Influenza Virus 2017-05-18 Completed [facility]it y of Vaccine (3+ yrs) 00:00:00 [facility] Influenza Virus 2017-05-18 Completed [facility]it y of Vaccine (3+ yrs) 00:00:00 [facility] Influenza Virus 2017-05-18 Completed [facility] y of Vaccine (3+ yrs) 00:00:00 [facility] Influenza Three-TIV 2017-05-18 Completed [facility] 5+ YR 00:00:00 [facility] Influenza Three-TIV 2017-05-18 Completed [facility] 5+ YR 00:00:00 [facility] Influenza Three-TIV 2017-05-18 Completed [facility] 5+ YR 00:00:00 [facility] Influenza Three-TIV 2017-05-18 Completed [facility] 5+ YR 00:00:00 [facility] HPV9 2017-04-14 Completed [facility] of 00:00:00 [facility] TDAP (ADACEL) 2017-04-14 Completed University of VACCINE 00:00:00 [facility] HPV9 2017-04-14 Completed [facility] of 00:00:00 [facility] TDAP (ADACEL) 2017-04-14 Completed University of VACCINE 00:00:00 [facility] HPV9 2017-04-14 Completed [facility] of 00:00:00 [facility] TDAP (ADACEL) 2017-04-14 Completed University of VACCINE 00:00:00 [facility] HPV9 2017-04-14 Completed [facility] of 00:00:00 [facility] TDAP (ADACEL) 2017-04-14 Completed University of VACCINE 00:00:00 [facility] HPV9 2017-04-14 Completed [facility] of 00:00:00 [facility] TDAP (ADACEL) 2017-04-14 Completed University of VACCINE 00:00:00 [facility] HPV9 2017-04-14 Completed [facility] of 00:00:00 [facility] TDAP (ADACEL) 2017-04-14 Completed University of VACCINE 00:00:00 [facility] HPV9 2017-04-14 Completed [facility] 00:00:00 [facility] TDAP (ADACEL) 2017-04-14 Completed University of VACCINE 00:00:00 [facility] HPV9 2017-04-14 Completed [facility] of 00:00:00 [facility] TDAP (ADACEL) 2017-04-14 Completed University of VACCINE 00:00:00 [facility] HPV9 2017-04-14 Completed [facility] of 00:00:00 [facility] TDAP (ADACEL) 2017-04-14 Completed University of VACCINE 00:00:00 [facility] HPV9 2017-04-14 Completed [facility] of 00:00:00 [facility] TDAP (ADACEL) 2017-04-14 Completed [facility] of VACCINE 00:00:00 [facility] HPV9 2017-04-14 Completed [facility] of 00:00:00 [facility] TDAP (ADACEL) 2017-04-14 Completed [facility] of VACCINE 00:00:00 [facility] HPV9 2017-04-14 Completed [facility] of 00:00:00 [facility] TDAP (ADACEL) 2017-04-14 Completed [facility] of VACCINE 00:00:00 [facility] HPV9 2017-04-14 Completed [facility] of 00:00:00 [facility] TDAP (ADACEL) 2017-04-14 Completed [facility] of VACCINE 00:00:00 [facility] HPV9 2017-04-14 Completed [facility] of 00:00:00 [facility] TDAP (ADACEL) 2017-04-14 Completed [facility] of VACCINE 00:00:00 [facility] HPV9 2017-04-14 Completed [facility] of 00:00:00 [facility] TDAP (ADACEL) 2017-04-14 Completed [facility] of VACCINE 00:00:00 [facility] HPV9 2017-04-14 Completed [facility] of 00:00:00 [facility] TDAP (ADACEL) 2017-04-14 Completed [facility] of VACCINE 00:00:00 [facility] HPV9 2017-04-14 Completed [facility] of 00:00:00 [facility] TDAP (ADACEL) 2017-04-14 Completed [facility] of VACCINE 00:00:00 [facility] HPV9 2017-04-14 Completed [facility] of 00:00:00 [facility] TDAP (ADACEL) 2017-04-14 Completed [facility] of VACCINE 00:00:00 [facility] HPV9 2017-04-14 Completed [facility] 00:00:00 [facility] TDAP (ADACEL) 2017-04-14 Completed [facility] of VACCINE 00:00:00 [facility] HPV9 2017-04-14 Completed [facility] 00:00:00 [facility] TDAP (ADACEL) 2017-04-14 Completed [facility] of VACCINE 00:00:00 [facility] HPV9 2017-04-14 Completed [facility] of 00:00:00 [facility] TDAP (ADACEL) 2017-04-14 Completed [facility] of VACCINE 00:00:00 [facility] HPV9 2017-04-14 Completed [facility] of 00:00:00 [facility] TDAP (ADACEL) 2017-04-14 Completed [facility] of VACCINE 00:00:00 [facility] TDAP 2015-12-27 Completed [facility] of 00:00:00 [facility] TDAP 2015-12-27 Completed [facility] of 00:00:00 [facility] TDAP 2015-12-27 Completed [facility] of 00:00:00 [facility] TDAP 2015-12-27 Completed [facility] of 00:00:00 [facility] TDAP 2015-12-27 Completed [facility] of 00:00:00 [facility] TDAP 2015-12-27 Completed [facility] of 00:00:00 [facility] TDAP 2015-12-27 Completed [facility] of 00:00:00 [facility] TDAP 2015-12-27 Completed [facility] of 00:00:00 [facility] TDAP 2015-12-27 Completed [facility] of 00:00:00 [facility] TDAP 2015-12-27 Completed [facility] of 00:00:00 [facility] TDAP 2015-12-27 Completed [facility] of 00:00:00 [facility] TDAP 2015-12-27 Completed [facility] of 00:00:00 [facility] TDAP 2015-12-27 Completed [facility] of 00:00:00 [facility] TDAP 2015-12-27 Completed [facility] of 00:00:00 [facility] TDAP 2015-12-27 Completed [facility] of 00:00:00 [facility] TDAP 2015-12-27 Completed [facility] of 00:00:00 [facility] TDAP 2015-12-27 Completed [facility] of 00:00:00 [facility] TDAP 2015-12-27 Completed [facility] of 00:00:00 [facility] TDAP 2015-12-27 Completed [facility] 00:00:00 [facility] TDAP 2015-12-27 Completed [facility] 00:00:00 [facility] TDAP 2015-12-27 Completed [facility] 00:00:00 [facility] TDAP 2015-12-27 Completed [facility] 00:00:00 [facility] Influenza Virus 2015-09-07 Completed [facility]it [facility] of Vaccine Quad IM 3+ 00:00:00 [facility] Influenza Virus 2015-09-07 Completed [facility] of Vaccine Quad IM 3+ 00:00:00 [facility] Influenza Virus 2015-09-07 Completed [facility] Vaccine Quad IM 3+ 00:00:00 [facility] Influenza Virus 2015-09-07 Completed [facility] Vaccine Quad IM 3+ 00:00:00 [facility] Influenza Virus 2015-09-07 Completed [facility] Vaccine Quad IM 3+ 00:00:00 [facility] Influenza Virus 2015-09-07 Completed [facility] Vaccine Quad IM 3+ 00:00:00 [facility] Influenza Virus 2015-09-07 Completed [facility] Vaccine Quad IM 3+ 00:00:00 [facility] Influenza Virus 2015-09-07 Completed [facility] Vaccine Quad IM 3+ 00:00:00 [facility] Influenza Virus 2015-09-07 Completed [facility] Vaccine Quad IM 3+ 00:00:00 [facility] Influenza Virus 2015-09-07 Completed [facility] Vaccine Quad IM 3+ 00:00:00 [facility] Influenza Virus 2015-09-07 Completed [facility] Vaccine Quad IM 3+ 00:00:00 [facility] Influenza Virus 2015-09-07 Completed [facility] Vaccine Quad IM 3+ 00:00:00 [facility] Influenza Virus 2015-09-07 Completed [facility] Vaccine Quad IM 3+ 00:00:00 [facility] Influenza Virus 2015-09-07 Completed [facility] Vaccine Quad IM 3+ 00:00:00 [facility] Influenza Virus 2015-09-07 Completed [facility] Vaccine Quad IM 3+ 00:00:00 [facility] Influenza Virus 2015-09-07 Completed [facility] Vaccine Quad IM 3+ 00:00:00 [facility] Influenza Virus 2015-09-07 Completed [facility] Vaccine Quad IM 3+ 00:00:00 [facility] Influenza Virus 2015-09-07 Completed [facility] Vaccine Quad IM 3+ 00:00:00 [facility] Influenza Virus 2015-09-07 Completed [facility] Vaccine Quad IM 3+ 00:00:00 [facility] Influenza Virus 2015-09-07 Completed [facility] Vaccine Quad IM 3+ 00:00:00 [facility] Influenza Virus 2015-09-07 Completed [facility] Vaccine Quad IM 3+ 00:00:00 [facility] Influenza Virus 2015-09-07 Completed [facility] Vaccine Quad IM 3+ 00:00:00 [facility] HPV 2015-01-24 Completed [facility] 00:00:00 [facility] HPV 2015-01-24 Completed [facility] 00:00:00 [facility] HPV 2015-01-24 Completed [facility] 00:00:00 [facility] HPV 2015-01-24 Completed [facility] 00:00:00 [facility] HPV 2015-01-24 Completed [facility] 00:00:00 [facility] HPV 2015-01-24 Completed [facility] 00:00:00 [facility] HPV 2015-01-24 Completed [facility] 00:00:00 [facility] HPV 2015-01-24 Completed [facility] 00:00:00 [facility] HPV 2015-01-24 Completed [facility] 00:00:00 [facility] HPV 2015-01-24 Completed [facility] 00:00:00 [facility] HPV 2015-01-24 Completed [facility] 00:00:00 [facility] HPV 2015-01-24 Completed [facility] 00:00:00 [facility] HPV 2015-01-24 Completed [facility] 00:00:00 [facility] HPV 2015-01-24 Completed [facility] 00:00:00 [facility] HPV 2015-01-24 Completed [facility] 00:00:00 [facility] HPV 2015-01-24 Completed [facility] 00:00:00 [facility] HPV 2015-01-24 Completed [facility] 00:00:00 [facility] HPV 2015-01-24 Completed [facility] 00:00:00 [facility] HPV 2015-01-24 Completed [facility] 00:00:00 [facility] HPV 2015-01-24 Completed [facility] 00:00:00 [facility] HPV 2015-01-24 Completed [facility] 00:00:00 [facility] HPV 2015-01-24 Completed [facility] 00:00:00 [facility] Pneumococcal 13 2014-07-20 Completed Universit y [...] Completed [facility] of Conjugate, PCV13 00:00:00 [place] [facility]Pre[facility]ar [facility] Meningococcal 2010-06-06 Completed [facility] of Vaccine 00:00:00 [facility] TDAP 2010-06-06 Completed [facility] 00:00:00 [facility] Meningococcal 2010-06-06 Completed [facility] of Vaccine 00:00:00 [facility] TDAP 2010-06-06 Completed [facility] 00:00:00 [facility] Meningococcal 2010-06-06 Completed [facility] of Vaccine 00:00:00 [facility] TDAP 2010-06-06 Completed [facility] 00:00:00 [facility] Meningococcal 2010-06-06 Completed [facility] of Vaccine 00:00:00 [facility] TDAP 2010-06-06 Completed [facility] 00:00:00 [facility] Meningococcal 2010-06-06 Completed [facility] of Vaccine 00:00:00 [facility] TDAP 2010-06-06 Completed [facility] 00:00:00 [facility] Meningococcal 2010-06-06 Completed [facility] of Vaccine 00:00:00 [facility] TDAP 2010-06-06 Completed [facility] 00:00:00 [facility] Meningococcal 2010-06-06 Completed [facility] of Vaccine 00:00:00 [facility] TDAP 2010-06-06 Completed [facility] 00:00:00 [facility] Meningococcal 2010-06-06 Completed [facility] of Vaccine 00:00:00 [facility] TDAP 2010-06-06 Completed [facility] 00:00:00 [facility] Meningococcal 2010-06-06 Completed [facility] of Vaccine 00:00:00 [facility] TDAP 2010-06-06 Completed [facility] 00:00:00 [facility] Meningococcal 2010-06-06 Completed [facility] of Vaccine 00:00:00 [facility] TDAP 2010-06-06 Completed [facility] 00:00:00 [facility] Meningococcal 2010-06-06 Completed [facility] of Vaccine 00:00:00 [facility] TDAP 2010-06-06 Completed [facility] 00:00:00 [facility] Meningococcal 2010-06-06 Completed [facility] Vaccine 00:00:00 [facility] TDAP 2010-06-06 Completed [facility] 00:00:00 [facility] Meningococcal 2010-06-06 Completed [facility] of Vaccine 00:00:00 [facility] TDAP 2010-06-06 Completed [facility] 00:00:00 [facility] Meningococcal 2010-06-06 Completed [facility] of Vaccine 00:00:00 [facility] TDAP 2010-06-06 Completed [facility] 00:00:00 [facility] Meningococcal 2010-06-06 Completed [facility] of Vaccine 00:00:00 [facility] TDAP 2010-06-06 Completed [facility] 00:00:00 [facility] Meningococcal 2010-06-06 Completed [facility] of Vaccine 00:00:00 [facility] TDAP 2010-06-06 Completed [facility] 00:00:00 [facility] Meningococcal 2010-06-06 Completed [facility] of Vaccine 00:00:00 [facility] TDAP 2010-06-06 Completed [facility] 00:00:00 [facility] Meningococcal 2010-06-06 Completed [facility] of Vaccine 00:00:00 [facility] TDAP 2010-06-06 Completed [facility] 00:00:00 [facility] Meningococcal 2010-06-06 Completed [facility] of Vaccine 00:00:00 [facility] TDAP 2010-06-06 Completed [facility] 00:00:00 [facility] Meningococcal 2010-06-06 Completed [facility] of Vaccine 00:00:00 [facility] TDAP 2010-06-06 Completed [facility] 00:00:00 [facility] Meningococcal 2010-06-06 Completed [facility] of Vaccine 00:00:00 [facility] TDAP 2010-06-06 Completed [facility] 00:00:00 [facility] Meningococcal 2010-06-06 Completed [facility] of Vaccine 00:00:00 [facility] TDAP 2010-06-06 Completed [facility] 00:00:00 [facility] Varicella 2008-03-09 Completed University of (varivax)(chicken [...] HEPATITIS A 2006-03-09 Completed [facility] 00:00:00 [facility] HEPATITIS A 2006-03-09 Completed [facility] 00:00:00 [facility] HEPATITIS A 2006-03-09 Completed [facility] 00:00:00 [facility] HEPATITIS A 2006-03-09 Completed [facility] 00:00:00 [facility] HEPATITIS A 2006-03-09 Completed [facility] 00:00:00 [facility] HEPATITIS A 2006-03-09 Completed [facility] 00:00:00 [facility] HEPATITIS A 2006-03-09 Completed [facility] 00:00:00 [facility] HEPATITIS A 2006-03-09 Completed [facility] 00:00:00 [facility] HEPATITIS A 2006-03-09 Completed [facility] 00:00:00 [facility] HEPATITIS A 2006-03-09 Completed [facility] 00:00:00 [facility] HEPATITIS A 2006-03-09 Completed [facility] 00:00:00 [facility] HEPATITIS A 2006-03-09 Completed [facility] 00:00:00 [facility] HEPATITIS A 2006-03-09 Completed [facility] 00:00:00 [facility] HEPATITIS A 2006-03-09 Completed [facility] 00:00:00 [facility] HEPATITIS A 2006-03-09 Completed [facility] 00:00:00 [facility] HEPATITIS A 2006-03-09 Completed [facility] 00:00:00 [facility] HEPATITIS A 2006-03-09 Completed [facility] 00:00:00 [facility] HEPATITIS A 2006-03-09 Completed [facility] 00:00:00 [facility] HEPATITIS A 2006-03-09 Completed [facility] 00:00:00 [facility] HEPATITIS A 2006-03-09 Completed [facility] 00:00:00 [facility] HEPATITIS A 2006-03-09 Completed [facility] 00:00:00 [facility] HEPATITIS A 2006-03-09 Completed [facility] 00:00:00 [facility] HEPATITIS A 2005-05-22 Completed [facility] 00:00:00 [facility] Hep B, Adol or Pedi 2005-05-22 Completed Unive rsity of Dosage 00:00:00 [facility] Polio (IPV/OPV) 2005-05-22 Completed [facility] 00:00:00 [facility] Td 2005-05-22 Completed [facility] 00:00:00 [facility] HEPATITIS A 2005-05-22 Completed [facility] 00:00:00 [facility] Hep B, Adol or Pedi 2005-05-22 Completed Unive rsity of Dosage 00:00:00 [facility] Polio (IPV/OPV) 2005-05-22 Completed [facility] 00:00:00 [facility] Td 2005-05-22 Completed [facility] 00:00:00 [facility] HEPATITIS A 2005-05-22 Completed [facility] 00:00:00 [facility] Hep B, Adol or Pedi 2005-05-22 Completed Unive rsity of Dosage 00:00:00 [facility] Polio (IPV/OPV) 2005-05-22 Completed [facility] 00:00:00 [facility] Td 2005-05-22 Completed [facility] 00:00:00 [facility] HEPATITIS A 2005-05-22 Completed [facility] 00:00:00 [facility] Hep B, Adol or Pedi 2005-05-22 Completed Unive rsity of Dosage 00:00:00 [facility] Polio (IPV/OPV) 2005-05-22 Completed [facility] 00:00:00 [facility] Td 2005-05-22 Completed [facility] 00:00:00 [facility] HEPATITIS A 2005-05-22 Completed [facility] 00:00:00 [facility] Hep B, Adol or Pedi 2005-05-22 Completed Unive rsity of Dosage 00:00:00 [facility] Polio (IPV/OPV) 2005-05-22 Completed [facility] 00:00:00 [facility] Td 2005-05-22 Completed [facility] 00:00:00 [facility] HEPATITIS A 2005-05-22 Completed [facility] 00:00:00 [facility] Hep B, Adol or Pedi 2005-05-22 Completed Unive rsity of Dosage 00:00:00 [facility] Polio (IPV/OPV) 2005-05-22 Completed [facility] 00:00:00 [facility] Td 2005-05-22 Completed [facility] 00:00:00 [facility] HEPATITIS A 2005-05-22 Completed [facility] 00:00:00 [facility] Hep B, Adol or Pedi 2005-05-22 Completed Unive rsity of Dosage 00:00:00 [facility] Polio (IPV/OPV) 2005-05-22 Completed [facility] 00:00:00 [facility] Td 2005-05-22 Completed [facility] 00:00:00 [facility] HEPATITIS A 2005-05-22 Completed [facility] 00:00:00 [facility] Hep B, Adol or Pedi 2005-05-22 Completed Unive rsity of Dosage 00:00:00 [facility] Polio (IPV/OPV) 2005-05-22 Completed [facility] 00:00:00 [facility] Td 2005-05-22 Completed [facility] 00:00:00 [facility] HEPATITIS A 2005-05-22 Completed [facility] 00:00:00 [facility] Hep B, Adol or Pedi 2005-05-22 Completed Unive rsity of Dosage 00:00:00 [facility] Polio (IPV/OPV) 2005-05-22 Completed [facility] 00:00:00 [facility] Td 2005-05-22 Completed [facility] 00:00:00 [facility] HEPATITIS A 2005-05-22 Completed [facility] 00:00:00 [facility] Hep B, Adol or Pedi 2005-05-22 Completed Unive rsity of Dosage 00:00:00 [facility] Polio (IPV/OPV) 2005-05-22 Completed [facility] 00:00:00 [facility] Td 2005-05-22 Completed [facility] 00:00:00 [facility] HEPATITIS A 2005-05-22 Completed [facility] 00:00:00 [facility] Hep B, Adol or Pedi 2005-05-22 Completed Unive rsity of Dosage 00:00:00 [facility] Polio (IPV/OPV) 2005-05-22 Completed [facility] 00:00:00 [facility] Td 2005-05-22 Completed [facility] 00:00:00 [facility] HEPATITIS A 2005-05-22 Completed [facility] 00:00:00 [facility] Hep B, Adol or Pedi 2005-05-22 Completed Unive rsity of Dosage 00:00:00 [facility] Polio (IPV/OPV) 2005-05-22 Completed [facility] 00:00:00 [facility] Td 2005-05-22 Completed [facility] 00:00:00 [facility] HEPATITIS A 2005-05-22 Completed [facility] 00:00:00 [facility] Hep B, Adol or Pedi 2005-05-22 Completed [facility]ive rsity of Dosage 00:00:00 [facility] Polio (IPV/OPV) 2005-05-22 Completed [facility] 00:00:00 [facility] Td 2005-05-22 Completed [facility] 00:00:00 [facility] HEPATITIS A 2005-05-22 Completed [facility] 00:00:00 [facility] Hep B, Adol or Pedi 2005-05-22 Completed Unive rsity of Dosage 00:00:00 [facility] Polio (IPV/OPV) 2005-05-22 Completed [facility] 00:00:00 [facility] Td 2005-05-22 Completed [facility] 00:00:00 [facility] HEPATITIS A 2005-05-22 Completed [facility] 00:00:00 [facility] Hep B, Adol or Pedi 2005-05-22 Completed [facility]ive rsity of Dosage 00:00:00 [facility] Polio (IPV/OPV) 2005-05-22 Completed [facility] 00:00:00 [facility] Td 2005-05-22 Completed [facility] 00:00:00 [facility] HEPATITIS A 2005-05-22 Completed [facility] 00:00:00 [facility] Hep B, Adol or Pedi 2005-05-22 Completed [facility]ive rsity of Dosage 00:00:00 [facility] Polio (IPV/OPV) 2005-05-22 Completed [facility] 00:00:00 [facility] Td 2005-05-22 Completed [facility] 00:00:00 [facility] HEPATITIS A 2005-05-22 Completed [facility] 00:00:00 [facility] Hep B, Adol or Pedi 2005-05-22 Completed [facility]ive rsity of Dosage 00:00:00 [facility] Polio (IPV/OPV) 2005-05-22 Completed [facility] 00:00:00 [facility] Td 2005-05-22 Completed [facility] 00:00:00 [facility] HEPATITIS A 2005-05-22 Completed [facility] 00:00:00 [facility] Hep B, Adol or Pedi 2005-05-22 Completed Unive rsity of Dosage 00:00:00 [facility] Polio (IPV/OPV) 2005-05-22 Completed [facility] 00:00:00 [facility] Td 2005-05-22 Completed [facility] 00:00:00 [facility] HEPATITIS A 2005-05-22 Completed [facility] 00:00:00 [facility] Hep B, Adol or Pedi 2005-05-22 Completed [facility]ive rsity of Dosage 00:00:00 [facility] Polio (IPV/OPV) 2005-05-22 Completed [facility] 00:00:00 [facility] Td 2005-05-22 Completed [facility] 00:00:00 [facility] HEPATITIS A 2005-05-22 Completed [facility] 00:00:00 [facility] Hep B, Adol or Pedi 2005-05-22 Completed [facility]ive rsity of Dosage 00:00:00 [facility] Polio (IPV/OPV) 2005-05-22 Completed [facility] 00:00:00 [facility] Td 2005-05-22 Completed [facility] 00:00:00 [facility] HEPATITIS A 2005-05-22 Completed [facility] 00:00:00 [facility] Hep B, Adol or Pedi 2005-05-22 Completed [facility]ive rsity of Dosage 00:00:00 [facility] Polio (IPV/OPV) 2005-05-22 Completed [facility] 00:00:00 [facility] Td 2005-05-22 Completed [facility] 00:00:00 [facility] HEPATITIS A 2005-05-22 Completed [facility] 00:00:00 [facility] Hep B, Adol or Pedi 2005-05-22 Completed [facility]ive rsity of Dosage 00:00:00 [facility] Polio (IPV/OPV) 2005-05-22 Completed [facility] 00:00:00 [facility] Td 2005-05-22 Completed [facility] 00:00:00 [facility] DTAP 2005-01-14 Completed [facility] 00:00:00 [facility] Hep B, Adol or Pedi 2005-01-14 Completed [facility]ive rsity of Dosage 00:00:00 [facility] MMR 2005-01-14 Completed [facility] 00:00:00 [facility] Polio (IPV/OPV) 2005-01-14 Completed [facility] 00:00:00 [facility] DTAP 2005-01-14 Completed [facility] 00:00:00 [facility] Hep B, Adol or Pedi 2005-01-14 Completed [facility]ive rsity of Dosage 00:00:00 [facility] MMR 2005-01-14 Completed [facility] 00:00:00 [facility] Polio (IPV/OPV) 2005-01-14 Completed [facility] 00:00:00 [facility] DTAP 2005-01-14 Completed [facility] 00:00:00 [facility] Hep B, Adol or Pedi 2005-01-14 Completed [facility]ive rsity of Dosage 00:00:00 [facility] MMR 2005-01-14 Completed [facility] 00:00:00 [facility] Polio (IPV/OPV) 2005-01-14 Completed [facility] 00:00:00 [facility] DTAP 2005-01-14 Completed [facility] 00:00:00 [facility] Hep B, Adol or Pedi 2005-01-14 Completed [facility]ive rsity of Dosage 00:00:00 [facility] MMR 2005-01-14 Completed [facility] 00:00:00 [facility] Polio (IPV/OPV) 2005-01-14 Completed [facility] 00:00:00 [facility] DTAP 2005-01-14 Completed [facility] 00:00:00 [facility] Hep B, Adol or Pedi 2005-01-14 Completed [facility]ive rsity of Dosage 00:00:00 [facility] MMR 2005-01-14 Completed [facility] 00:00:00 [facility] Polio (IPV/OPV) 2005-01-14 Completed [facility] 00:00:00 [facility] DTAP 2005-01-14 Completed [facility] 00:00:00 [facility] Hep B, Adol or Pedi 2005-01-14 Completed [facility]ive rsity of Dosage 00:00:00 [facility] MMR 2005-01-14 Completed [facility] 00:00:00 [facility] Polio (IPV/OPV) 2005-01-14 Completed [facility] 00:00:00 [facility] DTAP 2005-01-14 Completed [facility] 00:00:00 [facility] Hep B, Adol or Pedi 2005-01-14 Completed [facility]ive rsity of Dosage 00:00:00 [facility] MMR 2005-01-14 Completed [facility] 00:00:00 [facility] Polio (IPV/OPV) 2005-01-14 Completed [facility] 00:00:00 [facility] DTAP 2005-01-14 Completed [facility] 00:00:00 [facility] Hep B, Adol or Pedi 2005-01-14 Completed [facility]ive rsity of Dosage 00:00:00 [facility] MMR 2005-01-14 Completed [facility] 00:00:00 [facility] Polio (IPV/OPV) 2005-01-14 Completed [facility] 00:00:00 [facility] DTAP 2005-01-14 Completed [facility] 00:00:00 [facility] Hep B, Adol or Pedi 2005-01-14 Completed [facility]ive rs[facility] of Dosage 00:00:00 [facility] MMR 2005-01-14 Completed [facility] 00:00:00 [facility] Polio (IPV/OPV) 2005-01-14 Completed [facility] 00:00:00 [facility] DTAP 2005-01-14 Completed [facility] 00:00:00 [facility] Hep B, Adol or Pedi 2005-01-14 Completed [facility]ive rsity of Dosage 00:00:00 [facility] MMR 2005-01-14 Completed [facility] 00:00:00 [facility] Polio (IPV/OPV) 2005-01-14 Completed [facility] 00:00:00 [facility] DTAP 2005-01-14 Completed [facility] 00:00:00 [facility] Hep B, Adol or Pedi 2005-01-14 Completed Unive rsity of Dosage 00:00:00 [facility] MMR 2005-01-14 Completed [facility] 00:00:00 [facility] Polio (IPV/OPV) 2005-01-14 Completed [facility] 00:00:00 [facility] DTAP 2005-01-14 Completed [facility] 00:00:00 [facility] Hep B, Adol or Pedi 2005-01-14 Completed Unive rsity of Dosage 00:00:00 [facility] MMR 2005-01-14 Completed [facility] 00:00:00 [facility] Polio (IPV/OPV) 2005-01-14 Completed [facility] 00:00:00 [facility] DTAP 2005-01-14 Completed [facility] 00:00:00 [facility] Hep B, Adol or Pedi 2005-01-14 Completed Unive rsity of Dosage 00:00:00 [facility] MMR 2005-01-14 Completed [facility] 00:00:00 [facility] Polio (IPV/OPV) 2005-01-14 Completed [facility]it [facility] 00:00:00 [facility] DTAP 2005-01-14 Completed [facility] 00:00:00 [facility] Hep B, Adol or Pedi 2005-01-14 Completed Unive rsity of Dosage 00:00:00 [facility] MMR 2005-01-14 Completed [facility] 00:00:00 [facility] Polio (IPV/OPV) 2005-01-14 Completed [facility] 00:00:00 [facility] DTAP 2005-01-14 Completed [facility] 00:00:00 [facility] Hep B, Adol or Pedi 2005-01-14 Completed Unive rsity of Dosage 00:00:00 [facility] MMR 2005-01-14 Completed [facility] 00:00:00 [facility] Polio (IPV/OPV) 2005-01-14 Completed [facility]it [facility] of 00:00:00 [facility] DTAP 2005-01-14 Completed [facility] 00:00:00 [facility] Hep B, Adol or Pedi 2005-01-14 Completed Unive rsity of Dosage 00:00:00 [facility] MMR 2005-01-14 Completed [facility] 00:00:00 [facility] Polio (IPV/OPV) 2005-01-14 Completed [facility]it [facility] of 00:00:00 [facility] DTAP 2005-01-14 Completed [facility] 00:00:00 [facility] Hep B, Adol or Pedi 2005-01-14 Completed [facility]ive rsity of Dosage 00:00:00 [facility] MMR 2005-01-14 Completed [facility] 00:00:00 [facility] Polio (IPV/OPV) 2005-01-14 Completed [facility]it [facility] of 00:00:00 [facility] DTAP 2005-01-14 Completed [facility] 00:00:00 [facility] Hep B, Adol or Pedi 2005-01-14 Completed Unive rsity of Dosage 00:00:00 [facility] MMR 2005-01-14 Completed [facility] 00:00:00 [facility] Polio (IPV/OPV) 2005-01-14 Completed [facility]it [facility] 00:00:00 [facility] DTAP 2005-01-14 Completed [facility] 00:00:00 [facility] Hep B, Adol or Pedi 2005-01-14 Completed Unive rsity of Dosage 00:00:00 [facility] MMR 2005-01-14 Completed [facility] 00:00:00 [facility] Polio (IPV/OPV) 2005-01-14 Completed [facility]it [facility] of 00:00:00 [facility] DTAP 2005-01-14 Completed [facility] 00:00:00 [facility] Hep B, Adol or Pedi 2005-01-14 Completed Unive rsity of Dosage 00:00:00 [facility] MMR 2005-01-14 Completed [facility] 00:00:00 [facility] Polio (IPV/OPV) 2005-01-14 Completed [facility]it [facility] of 00:00:00 [facility] DTAP 2005-01-14 Completed [facility] 00:00:00 [facility] Hep B, Adol or Pedi 2005-01-14 Completed Unive rsity of Dosage 00:00:00 [facility] MMR 2005-01-14 Completed [facility] 00:00:00 [facility] Polio (IPV/OPV) 2005-01-14 Completed [facility]it [facility] 00:00:00 [facility] DTAP 2005-01-14 Completed [facility] 00:00:00 [facility] Hep B, Adol or Pedi 2005-01-14 Completed Unive rsity of Dosage 00:00:00 [facility] MMR 2005-01-14 Completed [facility] 00:00:00 [facility] Polio (IPV/OPV) 2005-01-14 Completed [facility]it [facility] of 00:00:00 [facility] DTAP 2004-03-12 Completed [facility] 00:00:00 [facility] Hep B, Adol or Pedi 2004-03-12 Completed Unive rsity of Dosage 00:00:00 [facility] Polio (IPV/OPV) 2004-03-12 Completed [facility]it [facility] of 00:00:00 [facility] DTAP 2004-03-12 Completed [facility] 00:00:00 [facility] Hep B, Adol or Pedi 2004-03-12 Completed Unive rsity of Dosage 00:00:00 [facility] Polio (IPV/OPV) 2004-03-12 Completed [facility]it [facility] of 00:00:00 [facility] DTAP 2004-03-12 Completed [facility] of 00:00:00 [facility] Hep B, Adol or Pedi 2004-03-12 Completed Unive rsity of Dosage 00:00:00 [facility] Polio (IPV/OPV) 2004-03-12 Completed [facility]it [facility] of 00:00:00 [facility] DTAP 2004-03-12 Completed [facility] of 00:00:00 [facility] Hep B, Adol or Pedi 2004-03-12 Completed Unive rsity of Dosage 00:00:00 [facility] Polio (IPV/OPV) 2004-03-12 Completed [facility]it [facility] 00:00:00 [facility] DTAP 2004-03-12 Completed [facility] 00:00:00 [facility] Hep B, Adol or Pedi 2004-03-12 Completed Unive rsity of Dosage 00:00:00 [facility] Polio (IPV/OPV) 2004-03-12 Completed [facility]it [facility] 00:00:00 [facility] DTAP 2004-03-12 Completed [facility] 00:00:00 [facility] Hep B, Adol or Pedi 2004-03-12 Completed Unive rsity of Dosage 00:00:00 [facility] Polio (IPV/OPV) 2004-03-12 Completed [facility]it [facility] of 00:00:00 [facility] DTAP 2004-03-12 Completed [facility] 00:00:00 [facility] Hep B, Adol or Pedi 2004-03-12 Completed Unive rsity of Dosage 00:00:00 [facility] Polio (IPV/OPV) 2004-03-12 Completed [facility]it [facility] 00:00:00 [facility] DTAP 2004-03-12 Completed [facility] 00:00:00 [facility] Hep B, Adol or Pedi 2004-03-12 Completed Unive rsity of Dosage 00:00:00 [facility] Polio (IPV/OPV) 2004-03-12 Completed [facility] 00:00:00 [facility] DTAP 2004-03-12 Completed [facility] 00:00:00 [facility] Hep B, Adol or Pedi 2004-03-12 Completed Unive rsity of Dosage 00:00:00 [facility] Polio (IPV/OPV) 2004-03-12 Completed [facility]it [facility] of 00:00:00 [facility] DTAP 2004-03-12 Completed [facility] 00:00:00 [facility] Hep B, Adol or Pedi 2004-03-12 Completed Unive rsity of Dosage 00:00:00 [facility] Polio (IPV/OPV) 2004-03-12 Completed [facility]it [facility] of 00:00:00 [facility] DTAP 2004-03-12 Completed [facility] 00:00:00 [facility] Hep B, Adol or Pedi 2004-03-12 Completed Unive rsity of Dosage 00:00:00 [facility] Polio (IPV/OPV) 2004-03-12 Completed [facility] 00:00:00 [facility] DTAP 2004-03-12 Completed [facility] 00:00:00 [facility] Hep B, Adol or Pedi 2004-03-12 Completed Unive rsity of Dosage 00:00:00 [facility] Polio (IPV/OPV) 2004-03-12 Completed [facility] 00:00:00 [facility] DTAP 2004-03-12 Completed [facility] 00:00:00 [facility] Hep B, Adol or Pedi 2004-03-12 Completed Unive rsity of Dosage 00:00:00 [facility] Polio (IPV/OPV) 2004-03-12 Completed [facility] 00:00:00 [facility] DTAP 2004-03-12 Completed [facility] 00:00:00 [facility] Hep B, Adol or Pedi 2004-03-12 Completed Unive rsity of Dosage 00:00:00 [facility] Polio (IPV/OPV) 2004-03-12 Completed [facility]it [facility] of 00:00:00 [facility] DTAP 2004-03-12 Completed [facility] 00:00:00 [facility] Hep B, Adol or Pedi 2004-03-12 Completed Unive rsity of Dosage 00:00:00 [facility] Polio (IPV/OPV) 2004-03-12 Completed [facility] 00:00:00 [facility] DTAP 2004-03-12 Completed [facility] 00:00:00 [facility] Hep B, Adol or Pedi 2004-03-12 Completed Unive rsity of Dosage 00:00:00 [facility] Polio (IPV/OPV) 2004-03-12 Completed [facility]it [facility] 00:00:00 [facility] DTAP 2004-03-12 Completed [facility] 00:00:00 [facility] Hep B, Adol or Pedi 2004-03-12 Completed Unive rsity of Dosage 00:00:00 [facility] Polio (IPV/OPV) 2004-03-12 Completed [facility]it [facility] 00:00:00 [facility] DTAP 2004-03-12 Completed [facility] 00:00:00 [facility] Hep B, Adol or Pedi 2004-03-12 Completed Unive rsity of Dosage 00:00:00 [facility] Polio (IPV/OPV) 2004-03-12 Completed [facility]it [facility] 00:00:00 [facility] DTAP 2004-03-12 Completed [facility] 00:00:00 [facility] Hep B, Adol or Pedi 2004-03-12 Completed Unive rsity of Dosage 00:00:00 [facility] Polio (IPV/OPV) 2004-03-12 Completed [facility] 00:00:00 [facility] DTAP 2004-03-12 Completed [facility] 00:00:00 [facility] Hep B, Adol or Pedi 2004-03-12 Completed Unive rsity of Dosage 00:00:00 [facility] Polio (IPV/OPV) 2004-03-12 Completed [facility]it [facility] 00:00:00 [facility] DTAP 2004-03-12 Completed [facility] 00:00:00 [facility] Hep B, Adol or Pedi 2004-03-12 Completed Unive rsity of Dosage 00:00:00 [facility] Polio (IPV/OPV) 2004-03-12 Completed [facility] 00:00:00 [facility] DTAP 2004-03-12 Completed [facility] 00:00:00 [facility] Hep B, Adol or Pedi 2004-03-12 Completed Unive rsity of Dosage 00:00:00 [facility] Polio (IPV/OPV) 2004-03-12 Completed [facility] 00:00:00 [facility] MMR 2004-03-11 Completed [facility] 00:00:00 [facility] Varicella 2004-03-11 Completed [facility] (varivax)(chicken 00:00:00 [place] [facility] MMR 2004-03-11 Completed [facility] 00:00:00 [facility] Varicella 2004-03-11 Completed [facility] (varivax)(chicken 00:00:00 [place] [facility] 2004-03-11 Completed [facility] 00:00:00 [facility] Varicella 2004-03-11 Completed [facility] (varivax)(chicken 00:00:00 [place] [facility] 2004-03-11 Completed [facility] 00:00:00 [facility] Varicella 2004-03-11 Completed [facility] (varivax)(chicken 00:00:00 [place] [facility] 2004-03-11 Completed [facility] 00:00:00 [facility] Varicella 2004-03-11 Completed [facility] (varivax)(chicken 00:00:00 [place] [facility] 2004-03-11 Completed [facility] 00:00:00 [facility] Varicella 2004-03-11 Completed [facility] (varivax)(chicken 00:00:00 [place] [facility] 2004-03-11 Completed [facility] 00:00:00 [facility] Varicella 2004-03-11 Completed [facility] (varivax)(chicken 00:00:00 [place] [facility] 2004-03-11 Completed [facility] 00:00:00 [facility] Varicella 2004-03-11 Completed [facility] (varivax)(chicken 00:00:00 [place] [facility] 2004-03-11 Completed [facility] 00:00:00 [facility] Varicella 2004-03-11 Completed [facility] (varivax)(chicken 00:00:00 [place] [facility] 2004-03-11 Completed [facility] 00:00:00 [facility] Varicella 2004-03-11 Completed [facility] (varivax)(chicken 00:00:00 [place] [facility] 2004-03-11 Completed [facility] 00:00:00 [facility] Varicella 2004-03-11 Completed [facility] (varivax)(chicken 00:00:00 [place] [facility] 2004-03-11 Completed [facility] 00:00:00 [facility] Varicella 2004-03-11 Completed [facility] (varivax)(chicken 00:00:00 [place] [facility] MMR 2004-03-11 Completed [facility] 00:00:00 [facility] Varicella 2004-03-11 Completed [facility] (varivax)(chicken 00:00:00 [place] [facility] 2004-03-11 Completed [facility] 00:00:00 [facility] Varicella 2004-03-11 Completed [facility] (varivax)(chicken 00:00:00 [place] [facility] MMR 2004-03-11 Completed [facility] 00:00:00 [facility] Varicella 2004-03-11 Completed [facility] (varivax)(chicken 00:00:00 [place] [facility] 2004-03-11 Completed [facility] 00:00:00 [facility] Varicella 2004-03-11 Completed [facility] (varivax)(chicken 00:00:00 [place] [facility] 2004-03-11 Completed [facility] 00:00:00 [facility] Varicella 2004-03-11 Completed [facility] (varivax)(chicken 00:00:00 [place] [facility] 2004-03-11 Completed [facility] 00:00:00 [facility] Varicella 2004-03-11 Completed [facility] (varivax)(chicken 00:00:00 [place] [facility] 2004-03-11 Completed [facility] 00:00:00 [facility] Varicella 2004-03-11 Completed [facility] (varivax)(chicken 00:00:00 [place] [facility] 2004-03-11 Completed [facility] 00:00:00 [facility] Varicella 2004-03-11 Completed [facility] (varivax)(chicken 00:00:00 [place] [facility] 2004-03-11 Completed [facility] 00:00:00 [facility] Varicella 2004-03-11 Completed [facility] (varivax)(chicken 00:00:00 [place] [facility] 2004-03-11 Completed [facility] 00:00:00 [facility] Varicella 2004-03-11 Completed [facility] (varivax)(chicken 00:00:00 [place] [facility] HEPATITIS A 2000-02-21 Completed [facility] 00:00:00 [facility] Varicella 2000-02-21 Completed [facility] (varivax)(chicken 00:00:00 [place] [facility] HEPATITIS A 2000-02-21 Completed [facility] 00:00:00 [facility] Varicella 2000-02-21 Completed [facility] (varivax)(chicken 00:00:00 [place] [facility] HEPATITIS A 2000-02-21 Completed [facility] 00:00:00 [facility] Varicella 2000-02-21 Completed [facility] (varivax)(chicken 00:00:00 [place] [facility] HEPATITIS A 2000-02-21 Completed [facility] 00:00:00 [facility] Varicella 2000-02-21 Completed [facility] (varivax)(chicken 00:00:00 [place] [facility] HEPATITIS A 2000-02-21 Completed [facility] 00:00:00 [facility] Varicella 2000-02-21 Completed [facility] (varivax)(chicken 00:00:00 [place] [facility] HEPATITIS A 2000-02-21 Completed [facility] 00:00:00 [facility] Varicella 2000-02-21 Completed [facility] (varivax)(chicken 00:00:00 [place] [facility] HEPATITIS A 2000-02-21 Completed [facility] 00:00:00 [facility] Varicella 2000-02-21 Completed [facility] (varivax)(chicken 00:00:00 [place] [facility] HEPATITIS A 2000-02-21 Completed [facility] 00:00:00 [facility] Varicella 2000-02-21 Completed [facility] (varivax)(chicken 00:00:00 [place] [facility] HEPATITIS A 2000-02-21 Completed [facility] 00:00:00 [facility] Varicella 2000-02-21 Completed [facility] (varivax)(chicken 00:00:00 [place] [facility] HEPATITIS A 2000-02-21 Completed [facility] 00:00:00 [facility] Varicella 2000-02-21 Completed [facility] (varivax)(chicken 00:00:00 [place] [facility] HEPATITIS A 2000-02-21 Completed [facility] 00:00:00 [facility] Varicella 2000-02-21 Completed [facility] (varivax)(chicken 00:00:00 [place] [facility] HEPATITIS A 2000-02-21 Completed [facility] 00:00:00 [facility] Varicella 2000-02-21 Completed [facility] (varivax)(chicken 00:00:00 [place] [facility] HEPATITIS A 2000-02-21 Completed [facility] 00:00:00 [facility] Varicella 2000-02-21 Completed [facility] (varivax)(chicken 00:00:00 [place] [facility] HEPATITIS A 2000-02-21 Completed [facility] 00:00:00 [facility] Varicella 2000-02-21 Completed [facility] (varivax)(chicken 00:00:00 [place] [facility] HEPATITIS A 2000-02-21 Completed [facility] 00:00:00 [facility] Varicella 2000-02-21 Completed [facility] (varivax)(chicken 00:00:00 [place] [facility] HEPATITIS A 2000-02-21 Completed [facility] 00:00:00 [facility] Varicella 2000-02-21 Completed [facility] (varivax)(chicken 00:00:00 [place] [facility] HEPATITIS A 2000-02-21 Completed [facility] 00:00:00 [facility] Varicella 2000-02-21 Completed [facility] (varivax)(chicken 00:00:00 [place] [facility] HEPATITIS A 2000-02-21 Completed [facility] 00:00:00 [facility] Varicella 2000-02-21 Completed [facility] (varivax)(chicken 00:00:00 [place] [facility] HEPATITIS A 2000-02-21 Completed [facility] 00:00:00 [facility] Varicella 2000-02-21 Completed [facility] (varivax)(chicken 00:00:00 [place] [facility] HEPATITIS A 2000-02-21 Completed [facility] 00:00:00 [facility] Varicella 2000-02-21 Completed [facility] (varivax)(chicken 00:00:00 [place] [facility] HEPATITIS A 2000-02-21 Completed [facility] 00:00:00 [facility] Varicella 2000-02-21 Completed [facility] (varivax)(chicken 00:00:00 [place] [facility] HEPATITIS A 2000-02-21 Completed [facility] 00:00:00 [facility] Varicella 2000-02-21 Completed [facility] of (varivax)(chicken [...] 2022-07-03 22:50:00 112 mm[Hg] Univer sity of pressure [facility] Diastolic blood 2022-07-03 22:50:00 69 mm[Hg] Unive rsity of [facility] Heart rate 2022-07-03 22:50:00 87 [facility] Body temperature 2022-07-03 22:50:00 37.17 [place] [facility] 2022-07-03 22:50:00 162.6 cm [facility] Body weight 2022-07-03 22:50:00 63.504 kg [facility] BMI 2022-07-03 22:50:00 24.03 kg/m2 [facility] Oxygen saturation in 2022-07-03 22:50:00 99 /min [facility] of Arterial blood by [facility] Pulse oximetry Branch Systolic blood 2022-05-30 21:00:00 113 mm[Hg] Univer sity of pressure [facility] Diastolic blood 2022-05-30 21:00:00 73 mm[Hg] Unive rsity of pressure [facility] Heart rate 2022-05-30 21:00:00 87 /min Universi ty [facility] Body temperature 2022-05-30 21:00:00 36.67 [place]na [facility] rate 2022-05-30 21:00:00 16 /min [facility] saturation in 2022-05-30 21:00:00 99 /min [facility] Arterial blood by [facility] Pulse oximetry Branch Body height 2022-05-30 18:05:00 162.6 cm Universi [facility] Body weight 2022-05-30 18:05:00 62.143 kg Universi [facility] BMI 2022-05-30 18:05:00 23.52 [facility] 2022-05-26 23:10:00 114 mm[Hg] Univer sity of pressure [facility] Diastolic blood 2022-05-26 23:10:00 74 mm[Hg] Unive rsity of pressure [facility] Heart rate 2022-05-26 23:10:00 78 /min [facility] Body temperature 2022-05-26 23:10:00 36.67 [place]na [facility] rate 2022-05-26 23:10:00 16 /min [facility] height 2022-05-26 23:10:00 [facility] Body weight 2022-05-26 23:10:00 62.46 kg [facility] BMI 2022-05-26 23:10:00 23.64 kg/m2 [facility] Oxygen saturation in 2022-05-26 23:10:00 100 /min [facility] blood by [facility] Pulse oximetry Branch Procedures Procedure Date / Time Performing Clinician Source Performed POCT URINALYSIS 2022-07-03 23:17:00 Tien Mancuso [place] [facility] POCT TEST 2022-07-03 23:12:00 Tien Mancuso [facility] POCT GLUCOSE(AGE 2022-05-30 21:56:[address] [facility] >30DAYS) [facility] POCT GLUCOSE (AUTOMATED) 2022-05-30 21:55:00 Marilee Kurtz [facility] URINE DRUG (IMMUNOASSAY) 2022-05-30 20:25:00 [facility] PO[facility] TEST 2022-05-30 18:24:00 Marilee Kurtz [facility] LIPASE 2022-05-30 18:21:00 Marilee Kurtz [facility] COMP. METABOLIC PANEL 2022-05-30 18:21:00 Marilee Kurtz [facility] ([id number]) [facility] ACUTE CARE VENOUS BLOOD 2022-05-30 18:21:00 Marilee Kurtz [facility] GAS [facility] CBC WITH DIFF 2022-05-30 18:21:00 Marilee Kurtz [facility] GLYCOSYLATED HEMOGLOBIN 2022-05-30 18:21:00 Marilee Kurtz [facility] (A1C) [facility] URINALYSIS 2022-05-30 18:21:00 Marilee Kurtz [facility] POCT GLUCOSE (AUTOMATED) 2022-05-30 18:06:00 [facility]US[facility] FOR 2022-05-30 17:59:12 Doctor Unassigned, No Un [facility] DIAGNOSIS AND TREATMENT [facility] ASSIGNMENT OF BENEFITS 2022-05-26 23:04:21 Doctor Unassigned, No [facility] DME/SUPPLY JUSTIFICATION 2022-04-08 05:01:00 Doctor Unassigned, No [facility] DME/SUPPLY JUSTIFICATION 2022-03-24 05:01:00 Doctor Unassigned, No [facility] Encounters Start End Encounter Admission Attending Care Care Encounter Source Date/Time Date/Time Type Type Clinicians Facility Department ID 2021-06-03 Emergency [facility] [id number] Univers 15:14:34 ity [facility] 2021-06-03 Emergency [facility] [id number] Univers 12:37:06 ity [facility] 2021-06-03 Emergency [facility] [id number] Univers 10:07:04 ity [facility] 2021-06-03 Emergency [facility] [id number] Univers 02:22:48 ity [facility] 2021-06-02 Emergency [facility] [id number] Univers 12:07:03 ity of [facility] 2021-06-02 Emergency [facility] [id number] Univers 10:34:21 ity [facility] 2021-06-02 Outpatient P [facility] DENISE [id number] Univers 01:58:31 ity [facility] 2021-06-02 Outpatient P [facility] DENISE [id number] Univers 00:14:42 ity of [facility] 2021-06-01 Outpatient P [facility] DENISE [id number] Univers 22:21:09 ity of [facility] 2021-06-01 Outpatient [facility] [id number] Univers 20:51:29 ity of [facility] 2021-06-01 Emergency [facility] [id number] Univers 20:49:21 ity of [facility] 2021-06-01 Outpatient [facility] [id number] Univers 15:53:16 ity of [facility] 2021-06-01 Outpatient P [facility] DENISE [id number] Univers 15:31:42 ity of [facility] 2021-06-01 Outpatient P [facility] DENISE [id number] Univers 12:20:05 ity of [facility] 2021-06-01 Emergency [facility] [id number] Univers 04:48:52 ity of [facility] 2021-06-01 Outpatient P [facility] DENISE [id number] Univers 01:06:52 ity of [facility] 2021-06-01 Outpatient [facility] [id number] Univers 00:36:46 ity of [facility] 2021-05-31 Emergency [facility] [id number] Univers 23:01:42 ity of [facility] 2021-05-31 Emergency [facility] [id number] Univers 16:03:19 ity of [facility] 2021-05-31 Emergency [facility] [id number] Univers 00:16:05 ity of [facility] 2022-07-14 2022-07-14 Outpatient R AGNES JAIME [facility] [id number] Univers 13:30:00 13:30:00 TIANA AGNES ity of [facility] 2022-07-09 2022-07-09 Outpatient R ELEANOR SEXTON [facility] [id number] Univers 15:30:00 15:30:00 ELEANOR SEXTON ity of [facility] 2022-07-04 2022-07-04 Telephone Jamee [facility] 1.2.840.114 [id number] Univers 00:00:00 00:00:00 [facility] HEALTH 350.1.13.10 it y of [place] 4.2.7.2.686 [place] as NORRIS?BLEA [id number] [facility] [address] MEDICAL OFFICE BUILDING 2022-07-03 2022-07-03 Outpatient R KARSTENJEOVANYCarrillo [facility] [id number] Univers 16:20:00 17:24:34 TIEN cole [facility] 2022-07-03 2022-07-03 Urgent [facility] 1.2.840.114 [id number] Univers 16:20:00 17:24:34 Care Unknown, [facility] HEALTH 350.1.13.10 ity of [place] 4.2.7.2.686 [place] NORRIS?BLEA [id number] [facility] [address] MEDICAL OFFICE [facility] 2022-07-01 2022-07-01 Telephone Carlie Louis [facility] 1.2.134.639 [id number] Univers 00:00:00 00:00:00 HEALTH 350.1.13.10 it y of [place] 4.2.7.2.686 [place] NORRIS?BLEA [id number] [facility] [address] MEDICAL OFFICE [facility] 2022-06-20 2022-06-20 Shelton [facility] 1.2.840.114 [id number] Univers 00:00:00 00:00:00 [place] HEALTH 350.1.13.10 ity of [place] 4.2.7.2.686 [place] NORRIS?BLEA [id number] [facility] [address] MEDICAL OFFICE [facility] 2022-06-10 2022-06-10 Telephone Eleanor Sexton [facility] 1.2.378.188 [id number] Univers 00:00:00 00:00:00 PRIMARY 350.1.13.10 it y of [place].2.[place] [id number] [facility] [address] 2022-05-30 2022-05-30 Emergency X [facility] ERT [id number] Univers 13:06:00 17:23:00 MARILEE cole of [facility] 2022-05-30 2022-05-30 Emergency [facility] 1.2.190.167 [id number] Univers 13:06:00 17:23:00 Marilee G TWIN 350.1.13.10 ity of [place].2.7.2.[place] [id number] [facility] [address] 2022-05-27 2022-05-27 Letter VIDYA Chan 1.2.840.114 [id number] Univers 00:00:00 00:00:00 (Out) Gaby ARREDONDO 350.1.13.10 it y of [facility] 4.2.7.2.686 [place] [id number] [facility] [address] 2022-05-26 2022-05-26 Urgent Romina Velazquez [facility] 1.2.840 .114 [id number] Univers 18:20:00 18:40:00 Care Unknown, Attending HEALTH 350.1.13.10 ity of [place] 4.2.7.2.686 [place] as NORRIS?BLEA [id number] [address] MEDICAL OFFICE [facility] 2022-05-26 2022-05-26 Outpatient R CAROLINE [facility] [id number] Univers 18:20:00 18:27:37 ROMINA granger [facility] 2022-05-26 2022-05-26 Orders Doctor DASILVA 1.2.840.114 [id number] Univers 00:00:00 00:00:00 Only Unassigned, MARIA ELENA 350.1.13.10 ity of [place] [facility] 4.2.7.2.686 [place] as [id number] [facility] [address] 2022-05-26 2022-05-26 Letter Caroline [facility] 1.2.840.114 [id number] Univers 00:00:00 00:00:00 (Out) Romina Angeles [facility] 350.1.13.10 ity of [place] 4.2.7.2.686 [place] as NORRIS?BLEA [id number] [address] MEDICAL OFFICE BUILDING 2022-05-16 2022-05-16 Outpatient R MANISH [facility] [id number] Univers 09:30:00 09:30:00 RAUL cole [facility] 2022-05-08 2022-05-08 Patient Eleanor Sexton [facility] 1.2.840.114 [id number] Univers 00:00:00 00:00:00 Secure Msg PRIMARY 350.1.13.10 ity of [facility] 4.2.7.2.686 [place] [id number] [facility] [address] 2022-05-05 2022-05-05 Telephone Eleanor Sexton [facility] 1.2.070.217 [id number] Univers 00:00:00 00:00:00 HEALTH 350.1.13.10 it y of [place] 4.2.7.2.686 [place] NORRIS?BLEA [id number] [facility] [address] MEDICAL OFFICE [facility] 2022-04-25 2022-04-25 Outpatient Rosalva [facility] [id number] Univers 16:00:00 16:00:00 [facility] 2022-04-21 2022-04-21 Outpatient Rosalva [facility] [id number] Univers 09:30:00 09:30:00 [facility] 2022-04-15 2022-04-15 Emergency X [facility] ERT [id number] Univers 12:12:00 15:19:00 AMALIA [facility] 2022-04-15 2022-04-15 Emergency [facility] 1.2.840.114 [id number] Univers 12:12:00 15:19:00 Amalia [place] 350.1.13.10 i ty of [place] 4.2.7.2.686 [place] [id number] [facility] [address] 2022-04-12 2022-04-12 Reforlando [facility] 1.2.840.114 [id number] Univers 00:00:00 00:00:00 [facility] 350.1.13.10 ity of [place] 4.2.7.2.686 [place] as NORRIS?BLEA [id number] [facility] [address] MEDICAL OFFICE [facility] 2022-04-11 2022-04-11 Outpatient R [facility] [id number] Univers 09:00:00 09:00:00 RAUL cole [facility] 2022-04-11 2022-04-11 Outpatient R MANISH [facility] [id number] Univers 09:00:00 09:00:00 RAULGUS cole [facility] 2022-04-10 2022-04-10 Refill Carlie [facility] 1.2.840.114 [id number] Univers 00:00:00 00:00:00 PRIMARY 350.1.13.10 it y of [place] 4.2.[place].2.[place] [phone] [place] dical [address] 2022-04-09 2022-04-09 Outpatient R CARLIE [facility] [id number] Univers 09:00:00 09:00:00 CARLIEELEANOR [facility] 2022-04-09 2022-04-09 Outpatient R [facility] [id number] Univers 09:00:00 09:00:00 CARLIEELEANOR [facility] 2022-04-09 2022-04-09 Outpatient R CARLIE [facility] [id number] Univers 09:00:00 09:00:00 CARLIEELEANOR shira [facility] 2022-04-09 2022-04-09 Outpatient R CAR[facility]IE [facility] [id number] Univers 09:00:00 09:00:00 CARLIEELEANOR [facility] 2022-04-08 2022-04-08 Patient Carlie [facility] 1.2.840.114 [id number] Univers 00:00:00 00:00:00 Secure Msg PRIMARY 350.1.13.10 ity of [place].2.[place] [phone] [place] dical [address] 2022-04-08 2022-04-08 Orders Doctor VIDYA 1.2.840.114 [id number] Univers 00:00:00 00:00:00 Only Unassigned, MARIA ELENA 350.1.13.10 ity of [place] [facility] 4.2.7.2.686 [place] as [phone] [address] 2022-03-24 2022-03-24 Telephone Eleanor Sexton [facility] 1.2.339.276 [id number] Univers 00:00:00 00:00:00 HEALTH 350.1.13.10 it y of [place] 4.2.7.2.686 [place] as NORRIS?BLEA [id number] [address] MEDICAL OFFICE [facility] 2022-03-24 2022-03-24 Orders Doctor VIDYA 1.2.840.114 [id number] Univers 00:00:00 00:00:00 Only Unassigned, MARIA ELENA 350.1.13.10 ity of [place] [facility] 4.2.7.2.686 [place] as [id number] [address] 2022-03-21 2022-03-21 Telephone Eleanor Sexton [facility] 1.2.595.190 [id number] Univers 00:00:00 00:00:00 PRIMARY 350.1.13.10 it y of [place] 4.2.[place].2.[place] [id number] [address] 2022-03-20 2022-03-20 Patient Doctor [facility] 1.2.840.114 [id number] Univers 00:00:00 00:00:00 Secure Msg Unassigned, HEALTH 350.1.13.10 ity of [place] [facility] 4.2.7.2.686 [place] NORRIS?BLEA [id number] [address] OFFICE [facility] 2022-03-19 2022-03-19 Outpatient R MOHINDER, [facility] [id number] Univers 13:00:00 13:00:00 MARITZA ity of [facility] 2022-03-18 2022-03-18 Telephone [facility] 1.2.236.657 [id number] Univers 00:00:00 00:00:00 Jacqui HEALTH 350.1.13.10 [facility] 4.2.7.2.686 [place] NORRIS?BLEA [id number] [address] OFFICE [facility] 2022-03-18 2022-03-18 Patient Doctor [facility] 1.2.840.114 [id number] Univers 00:00:00 00:00:00 Secure Msg Unassigned, [facility] 350.1.13.10 ity of [place] 4.2.7.2.686 [place] as NORRIS?BLEA [id number] [facility] [address] MEDICAL OFFICE [facility] 2022-03-17 2022-03-17 Outpatient R CHIP [facility] [id number] Univers 08:40:00 09:07:30 [facility] 2022-03-17 2022-03-17 [facility] 1.2.840.114 [id number] Univers 08:40:00 09:07:30 Visit [facility] 350.1.13.10 ity of [place] 4.2.7.2.686 [place] NORRIS?BLEA [id number] [facility] [address] MEDICAL OFFICE [facility] 2022-03-13 2022-03-13 Outpatient R JAMEE [facility] [id number] Univers 19:40:00 20:20:46 [facility] 2022-03-13 2022-03-13 Urgent Bill Patiño [facility] 1..840.114 9 [id number] Univers 19:40:00 20:20:46 Care Karstenalcarrillo [facility] 350.1.13.10 ity of [place] 4.2.7.2.686 [place] as NORRIS?BLEA [id number] [facility] [address] MEDICAL OFFICE [facility] 2022-03-13 2022-03-13 Outpatient R JAMEE [facility] [id number] Univers 19:40:00 20:20:46 [facility] 2022-03-12 2022-03-12 Outpatient [facility] [id number] Univers 13:00:00 13:00:00 MARITZA cole [facility] 2022-03-06 2022-03-06 Outpatient R [facility] [id number] Univers 13:00:00 13:00:00 [facility] 2022-02-28 2022-02-28 Telephone [facility] 1.2.898.273 [id number] Univers 00:00:00 00:00:00 Raul HEALTH 350.1.13.10 it y of [place] 4.2.7.2.686 [place] as NORRIS?BLEA [id number] [facility] [address] MEDICAL OFFICE [facility] 2022-02-27 2022-02-27 Telephone Lore DASILVA 1.2.288.925 [id number] Univers 00:00:00 00:00:00 MARIA ELENA Mccurdy 350.1.13.10 ity of [facility] 4.2.7.2.686 [place] as [id number] [address] 2022-02-27 2022-02-27 Patient Carlie Louis [facility] 1.2.840.114 [id number] Univers 00:00:00 00:00:00 Secure Msg PRIMARY 350.1.13.10 ity of [facility] 4.2.7.2.[place] [id number] [address] 2022-02-26 2022-02-26 Laboratory Only, Ang Db Test [facility] 1.2.8 40.114 [id number] Univers 13:30:00 13:45:00 Only Davidson [facility] 350.1.13.10 ity of [place] 4.2.7.2.686 [place] as NORRIS?BLEA [id number] [facility] [address] MEDICAL OFFICE [facility] 2022-02-26 2022-02-26 Outpatient R DAVIDSON [facility] [id number] Univers 13:30:00 13:30:00 MANDA ity [facility] 2022-02-23 2022-02-23 Telephone Eleanor Sexton [facility] 1.2.846.444 [id number] Univers 00:00:00 00:00:00 HEALTH 350.1.13.10 it y of [place] 4.2.7.2.686 [place] as NORRIS?BLEA [id number] [facility] [address] MEDICAL OFFICE [facility] 2022-02-19 2022-02-19 Telephone Annette Moon 1.2.840.114 [id number] Univers 00:00:00 00:00:00 MARIA ELENA 350.1.13.10 it y of HOSPITAL 4.2.7.2.686 [place] as [id number] [facility] [address] 2022-02-18 2022-02-18 Laboratory Only, Ang Db Test [facility] 1.2.8 40.114 [id number] Univers 19:30:00 19:45:00 Only Dustin Nichols 350.1.13.10 ity of [place] 4.2.7.2.686 [place] as NORRIS?BLEA [id number] Ks dical KNEY [address] MEDICAL OFFICE BUILDING 2022-02-18 2022-02-18 Outpatient R SIMONE, [facility] [id number] Univers 19:30:00 19:30:00 DUSTIN ity o [facility] 2022-02-18 2022-02-18 Outpatient R SIMONE, [facility] [id number] Univers 19:30:00 19:30:00 DUSTIN ity o [facility] 2022-02-17 2022-02-17 Ancillary Abraham Marcos [facility] 1.2.840. 114 [id number] Univers 09:15:00 10:15:00 Visit Marcella Casey 350.1.13.10 ity of [place].2.7.2.[place] PROF[place] [phone] Ks alannahkailey [facility] 179 [facility] 2022-02-17 2022-02-17 Outpatient R JACINTO [facility] [id number] Univers 09:15:00 09:15:00 MARCELLA cole [facility] 2022-02-17 2022-02-17 Orders Doctor DASILVA 1.2.840.114 [id number] Univers 00:00:00 00:00:00 Only Unassigned, MARIA ELENA 350.1.13.10 ity of [place] [facility] 4.2.7.2.686 [place] as [phone] [facility] [address] 2022-02-14 2022-02-14 Outpatient R JAMEE [facility] [id number] Univers 19:40:00 19:40:00 TIEN cole [facility] 2022-02-07 2022-02-07 Outpatient [place] [id number] Univers 13:32:04 23:59:00 KATIE ity [facility] 2022-02-07 2022-02-07 Outpatient [place] [id number] Univers 13:32:04 23:59:00 KATIE ity [facility] 2022-02-07 2022-02-07 [facility] 1.2.840.114 [id number] Univers 13:32:04 23:59:00 Encounter Katie PRIMARY 350.1.13.10 it[place] [id number] [facility] [address] 2022-02-07 2022-02-07 Office [facility] 1.2.976.167 [id number] Univers 13:20:00 14:22:34 Visit Katie PRIMARY 350.1.13.10 it y of [place] 4[place]2.7.2.[place] [id number] [place] dical [address] 2022-02-07 2022-02-07 Outpatient R [place] [id number] Univers 13:20:00 14:22:34 [facility] 2022-02-05 2022-02-05 Office Carlie [facility] 1.2.840.114 [id number] Univers 14:30:00 16:45:20 Visit HEALTH 350.1.13.10 it y of [place] 4.2.7.2.686 [place] as NORRIS?BLEA [id number] Ks dical KNEY [address] MEDICAL OFFICE BUILDING 2022-02-05 2022-02-05 Outpatient R ELEANOR SEXTON [facility] [id number] Univers 14:30:00 16:45:20 [facility] 2022-02-05 2022-02-05 Outpatient R ELEANOR SEXTON [facility] [id number] Univers 14:30:00 14:30:00 [facility] 2022-01-29 2022-01-29 [facility] 1.2.840.114 [id number] Univers 00:00:00 00:00:00 Management Sonal AVENDAÑO 350.1.13.10 ity of PEDIATRIC 4.2.7.2.686 Te [facility] [phone] [facility] [address] 2022-01-29 2022-01-29 Case [facility] 1.2.840.114 [id number] Univers 00:00:00 00:00:00 Management Sonal AVENDAÑO 350.1.13.10 ity of PEDIATRIC 4.2.7.2.686 [facility] [id number] [address] 2022-01-27 2022-01-27 Emergency [facility] [id number] Univers 17:09:00 18:50:00 RADHA cole [facility] 2022-01-27 2022-01-27 Emergency [facility] 1.2.840.114 [id number] Univers 17:09:00 18:50:00 Radha MURCIA 350.1.13.10 ity of [place] 4.2.7.2.686 [facility] [phone] [facility] [address] 2022-01-27 2022-01-27 Emergency X [facility] ERT [id number] Univers 17:09:00 18:50:00 RADHA cole [facility] 2022-01-27 2022-01-27 Outpatient R SONAL CHAO [facility] [id number] Univers 14:00:00 15:19:34 SONAL CHAO [facility] 2022-01-27 2022-01-27 Office [facility] 1.2.840.114 [id number] Univers 14:00:00 15:19:34 Visit Sonal AVENDAÑO 350.1.13.10 it y of WOMEN'S 4.2.7.2.686 [facility] [id number] [facility] [address] 2022-01-16 2022-01-16 Shelton [facility] 1.2.840.114 [id number] Univers 00:00:00 00:00:00 Sandeep A HEALTH 350.1.13.10 ity of SPECIALTY 4.2.7.2.686 [facility] [id number] [facility] [address] 2022-01-14 2022-01-14 Outpatient R ERIS [facility] [id number] Univers 14:45:00 14:45:00 OSVALDO ity o f [facility] 2022-01-14 2022-01-14 Telephone [facility] 1.2.571.172 [id number] Univers 00:00:00 00:00:00 Latrice MURCIA 350.1.13.10 ity of [place].2.7.2.686 [place] [phone] [place]s luisana MORATAYA [address] BUILDING 2022-01-08 2022-01-08 Outpatient R MALIA [facility] [id number] Univers 09:00:00 09:00:00 PAMELA cole o [facility] 2022-01-08 2022-01-08 Outpatient R IFNLEY, [facility] [id number] Univers 09:00:00 09:00:00 PAMELA cole o [facility] 2022-01-08 2022-01-08 Outpatient R MALIA [facility] [id number] Univers 09:00:00 09:00:00 JANISMABEL cole o [facility] 2022-01-01 2022-01-01 Outpatient R ELEANOR SEXTON [facility] [id number] Univers 08:30:00 08:30:00 ELEANOR SEXTON itshira [facility] 2021-12-23 2021-12-23 Oncology Social Worker Lab, Ang - [facility] 1.2.840.1 14 [id number] Univers 12:00:00 12:15:00 Visit Raul Hammond [facility] 350.1.13.10 ity [facility] 4.2.7.2.686 [place] NORRIS?BLEA [id number] Ks luisana MELVINEY [address] MEDICAL OFFICE BUILDING 2021-12-23 2021-12-23 Outpatient R MANISH [facility] [id number] Univers 11:30:00 12:02:04 RAUL ity [facility] 2021-12-23 2021-12-23 Office [facility] 1.2.840.114 [id number] Univers 11:30:00 12:02:04 Visit [facility] 350.1.13.10 it [facility] 4.2.7.2.686 [place] as NORRIS?BLEA [id number] [address] OFFICE [facility] 2021-12-23 2021-12-23 Outpatient R MANISH [facility] [id number] Univers 11:30:00 12:02:04 RAUL shira [facility] 2021-12-19 2021-12-19 Outpatient Rosalva FINLEY [facility] [id number] Univers 09:00:00 10:06:45 PAMELA cole o f [facility] 2021-12-19 2021-12-19 Office [facility] 1.2.840.114 [id number] Univers 09:00:00 10:06:45 Visit Pamela Blackwell [employer] 350.1.13.10 [facility] 4.2.7.2.686 [place] as MATERNAL [phone] [facility] ical & CHILD [address] [place] [address] 2021-12-18 2021-12-18 Outpatient Rosalva EDUARDO [facility] [id number] Univers 11:00:00 11:00:00 LATRICE [facility] 2021-12-05 2021-12-05 Outpatient Rosalva LEE [facility] [id number] Univers 15:00:00 15:00:00 JUNITO [facility] 2021-12-05 2021-12-05 Outpatient Rosalva LEE [facility] [id number] Univers 15:00:00 15:00:00 JUNITO cole [facility] 2021-12-04 2021-12-04 Outpatient COREY QUINTEROS [facility] [id number] Univers 00:00:00 00:00:00 COREY DURAN [facility] 2021-12-04 2021-12-04 Shelton Pozo [facility] [id number] Univers 00:00:00 00:00:00 [facility] [id number] it y of [place] [id number] [place] as NORRIS?BLEA [phone] [place] CUNHA [address] [facility] 2021-12-02 2021-12-02 Telephone [facility] [id number] Univers 00:00:00 00:00:00 [facility] HEALTH [id number] it y of [place] [id number] [place] as NORRIS?BLEA [phone] [place] CUNHA 198 [facility] OFFICE [facility] 2021-11-30 2021-11-30 Patient Doctor VIDYA [id number] Univers 00:00:00 00:00:00 Secure Msg Unassigned, MARIA ELENA [id number] ity of [place] [facility] [id number] [place] as [phone] [address] 2021-11-28 2021-11-28 [facility] [id number] Univers 08:30:00 08:45:00 Visit [facility] [id number] it y of [place] [id number] [place] as NORRIS?BLEA [phone] [place] CUNHA [address] [place] [address] 2021-11-28 2021-11-28 [facility] [id number] Univers 08:30:00 08:30:00 [facility] 2021-11-28 2021-11-28 [facility] [id number] Univers 08:30:00 08:30:00 [facility] 2021-11-28 2021-11-28 Telephone [facility] 1.2.309.953 [id number] Univers 00:00:00 00:00:00 [facility] 350.1.13.10 it y of [place] 4.2.7.2.686 [place] as NORRIS?BLEA [phone] [place] luisana CUNHA 198 [facility] OFFICE [facility] 2021-11-25 2021-11-25 Outpatient COREY QUINTEROS [facility] [id number] Univers 15:40:00 16:20:31 COREY DURAN [facility] 2021-11-25 2021-11-25 Office Roger [facility] 1.2.840.114 [id number] Univers 15:40:00 16:20:31 Visit Corey Romo [facility] 350.1.13.10 ity of [place] 4.2.7.2.686 [place] as NORRIS?BLEA [id number] [place] alannahkailey CUNHA [address] MEDICAL OFFICE [facility] 2021-11-25 2021-11-25 Outpatient R COREY DURAN [facility] [id number] Univers 15:40:00 15:40:00 COREY DURAN [facility] 2021-11-25 2021-11-25 Outpatient R ELEANOR SEXTON [facility] [id number] Univers 10:00:00 11:17:41 CARLIE ELEANOR [facility] 2021-11-25 2021-11-25 Office Carlie [facility] 1.2.840.114 [id number] Univers 10:00:00 11:17:41 Visit [facility] 350.1.13.10 it y of [place] 4.2.7.2.686 [place] as NORRIS?BLEA [phone] [place] alannahkailey CUNHA 220 [facility] OFFICE [facility] 2021-11-22 2021-11-22 Outpatient R [facility] [id number] Univers 15:12:16 23:59:00 SENDIL [facility] 2021-11-22 2021-11-22 Outpatient R [facility] [id number] Univers 00:00:00 00:00:00 SENDIL [facility] 2021-11-21 2021-11-21 Oncology Social Worker Lab, Ang - Db [facility] 1.2.840.1 14 [id number] Univers 16:00:00 16:22:57 Visit Pat Pozo [facility] 350.1.13.10 ity of [place] 4.2.7.2.686 [place] as NORRIS?BLEA [phone] [place] alannahkailey ALPHONSE [address] MEDICAL OFFICE BUILDING 2021-11-21 2021-11-21 Outpatient R [facility] [id number] Univers 16:00:00 16:00:00 [facility] 2021-11-21 2021-11-21 Office [facility] 1.2.840.114 [id number] Univers 15:30:00 16:00:00 Visit Pat [facility] 350.1.13.10 it y of [place] 4.2.7.2.686 [place] as NORRIS?BLEA [phone] [address] OFFICE [facility] 2021-11-21 2021-11-21 Outpatient R SÁNCHEZ [facility] [id number] Univers 15:30:00 15:47:08 [facility] 2021-11-21 2021-11-21 Outpatient Rosalva [facility] [id number] Univers 15:30:00 15:47:08 [facility] 2021-11-21 2021-11-21 Telephone [facility] 1.2.834.749 [id number] Univers 00:00:00 00:00:00 Latrice MURCIA 350.1.13.10 it[place] of [place] [phone] [facility] NAL 9 [facility] 2021-11-21 2021-11-21 Transition [facility] 1.2.840.114 [id number] Univers 00:00:00 00:00:00 of Care Kiley BARROW 350.1.13.10 i ty of [place].2.7.2.686 [place] [id number] [address] 2021-11-21 2021-11-21 Telephone [facility] 1.2.764.425 [id number] Univers 00:00:00 00:00:00 Latrice MURCIA 350.1.13.10 ity of [place].2.7.2.686 [place] [phone] [place] dicco NAL 059 [facility] 2021-11-18 2021-11-20 Inpatient [facility] [id number] Univers 21:35:00 15:25:00 FAVIOLA ity [facility] 2021-11-18 2021-11-20 [facility] Faviola Ortiz [facility] 1.2.840. 114 [id number] Univers 21:35:00 15:25:00 Encounter Abraham [facility]idez [facility] 350.1.13.10 ity of [facility] 4.2.7.2.686 [place] [facility] [phone] [facility] [address] 2021-11-18 2021-11-20 Inpatient X ANGEL [facility] [id number] Univers 21:35:00 15:25:00 [facility] ity [facility] 2021-11-14 2021-11-14 [facility] 1.2.840.114 [id number] Univers 17:59:51 23:59:00 Encounter [facility] 350.1.13.10 ity of [place] 4.2.7.2.686 [place] NORRIS?BLEA [phone] [place] luisana CUNHA [address] MEDICAL OFFICE [facility] 2021-11-14 2021-11-14 Outpatient R [facility] [id number] Univers 17:40:00 18:41:58 [facility] 2021-11-14 2021-11-14 Urgent Haroon Bill [facility] 1.2.840.114 [id number] Univers 17:40:00 18:41:58 Care [facility] 350.1.13.10 ity of [place] 4.2.7.2.686 [place] as NORRIS?BLEA [phone] [place] luisana [facility] [address] MEDICAL OFFICE [facility] 2021-11-11 2021-11-11 Outpatient R [facility] [id number] Univers 00:00:00 00:00:00 SENDIL ity [facility] 2021-11-11 2021-11-11 Patient Doctor VIDYA 1.2.840.114 [id number] Univers 00:00:00 00:00:00 Secure Msg Unassigned, MARIA ELENA 350.1.13.10 ity of [place] [facility] 4.2.7.2.686 [place] as [phone] [facility] [address] 2021-11-08 2021-11-08 Outpatient R [facility] [id number] Univers 16:00:00 23:59:00 SENDIL ity [facility] 2021-11-08 2021-11-08 Outpatient R [facility] [id number] Univers 16:00:00 23:59:00 SENDIL ity [facility] 2021-11-06 2021-11-06 [facility] 1.2.688.980 [id number] Univers 00:00:00 00:00:00 Maritza Tinajero [facility] 350.1.13.10 i ty of [place] 4.2.7.2.686 [place] as NORRIS?BLEA [phone] [place] luisana MELVINEY [address] MEDICAL OFFICE [facility] 2021-11-04 2021-11-04 Outpatient R [facility] [id number] Univers 10:00:00 11:00:33 SENDIL ity [facility] 2021-11-04 2021-11-04 Outpatient R [facility] [id number] Univers 10:00:00 11:00:33 SENDIL ity [facility] 2021-11-04 2021-11-04 [facility] 1.2.840.114 [id number] Univers 10:00:00 11:00:33 Visit Sendil Clare MURCIA 350.1.13.10 ity of [place] 4.2.7.2.686 [place] [facility] [phone] [place] l[place] MORATAYA 059 [facility] 2021-11-01 2021-11-01 Outpatient R [facility] [id number] Univers 15:28:39 23:59:00 MARITZA ity [facility] 2021-11-01 2021-11-01 [facility] 1.2.840.114 [id number] Univers 15:28:39 23:59:00 Encounter Maritza MURCIA 350.1.13.10 ity of [facility] 4.2.7.2.686 [place] [phone] [facility] [address] 2021-11-01 2021-11-01 [facility] 1.2.840.114 [id number] Univers 15:28:26 23:59:00 Encounter Maritza ALEMANALICE 350.1.13.10 ity of [place] 4.2.7.2.686 [place] [id number] [facility] [address] 2021-11-01 2021-11-01 Outpatient Rosalva [facility] [id number] Univers 15:00:00 15:15:12 RAUL cole [facility] 2021-11-01 2021-11-01 Oncology Social Worker Lab, Ang - Db [facility] 1.2.840.1 14 [id number] Univers 15:00:00 15:15:00 Visit Raul Hammond 350.1.13.10 ity of [facility] 4.2.7.2.686 [place] NORRIS?BLEA [phone] [facility] [address] MEDICAL OFFICE [facility] 2021-11-01 2021-11-01 Outpatient Rosalva [facility] [id number] Univers 15:00:00 15:00:00 RAUL cole [facility] 2021-11-01 2021-11-[address] [facility] 1.2.840.114 [id number] Univers 14:00:00 14:30:00 Visit Maritza Tanvi [facility] 350.1.13.10 i ty of [place] 4.2.7.2.686 [place] as NORRIS?BLEA [phone] [facility] [address] MEDICAL OFFICE [facility] 2021-11-01 2021-11-01 Orders Doctor VIDYA 1.2.840.114 [id number] Univers 00:00:00 00:00:00 Only Unassigned, MARIA ELENA 350.1.13.10 ity of [place] [facility] 4.2.7.2.686 [place] as [phone] [facility] [address] 2021-10-31 2021-10-31 Outpatient Rosalva HAMMOND [facility] [id number] Univers 08:00:00 08:00:00 RAUL cole [facility] 2021-10-31 2021-10-31 Outpatient Rosalva [facility] [id number] Univers 08:00:00 08:00:00 RAUL cole [facility] 2021-10-29 2021-10-29 Outpatient R MANISH [facility] [id number] Univers 16:00:00 16:00:00 RAUL cole [facility] 2021-10-25 2021-10-25 Outpatient R HERNANDEZ, [facility] [id number] Univers 14:15:00 14:51:16 JAQUELIN itshira [facility] 2021-10-25 2021-10-25 Office [facility] 1.2.840.114 [id number] Univers 14:15:00 14:51:16 Visit [facility] 350.1.13.10 it y of [place] 4.2.7.2.686 [facility] [phone] [address] 2021-10-21 2021-10-21 Outpatient R ROGERCOREY [facility] [id number] Univers 11:30:00 11:30:00 ROGERCOREY [facility] 2021-10-21 2021-10-21 Outpatient R ROGER, COREY [facility] [id number] Univers 11:30:00 11:30:00 ROGER COREY [facility] 2021-09-24 2021-09-24 Outpatient R [facility] [id number] Univers 11:00:00 11:00:00 ity [facility] 2021-09-24 2021-09-24 Outpatient R [facility] [id number] Univers 11:00:00 11:00:00 ity [facility] 2021-09-24 2021-09-24 Outpatient R JUANA [facility] [id number] Univers 11:00:00 11:00:00 SENIA ity [facility] 2021-09-19 2021-09-19 Outpatient R [facility] [id number] Univers 10:00:00 10:00:00 ity [facility] 2021-09-18 2021-09-18 Outpatient R AGNES JAIME [facility] [id number] Univers 14:00:00 14:41:25 [facility]ES [facility]IME [facility] 2021-09-18 2021-09-18 Office [facility] 1.2.840.114 [id number] Univers 14:00:00 14:41:25 Visit Agnes [facility] 350.1.13.10 it y of [place] 4.2.7.2.686 [facility] [phone] [facility] [address] 2021-09-18 2021-09-18 Outpatient R TIANA AGNES [facility] [id number] Univers 14:00:00 14:00:00 AGNES JAIME shira [facility] 2021-09-16 2021-09-17 Emergency X [facility] ERT [id number] Univers 23:55:00 02:44:00 JANE cole [facility] 2021-09-16 2021-09-17 Emergency [facility] 1.2.672.375 [id number] Univers 23:55:00 02:44:00 Jane MURCIA 350.1.13.10 ity of [facility] 4.2.7.2.686 [facility] [phone] [facility] [address] 2021-09-16 2021-09-17 Emergency X CACCHANDU, [facility] ERT [id number] Univers 23:55:00 02:44:00 JANE shira [facility] 2021-09-16 2021-09-16 Outpatient R [facility] [id number] Univers 15:30:00 15:30:00 RAUL shira [facility] 2021-09-16 2021-09-16 Orders Doctor VIDYA 1.2.840.114 [id number] Univers 00:00:00 00:00:00 Only Unassigned, MARIA ELENA 350.1.13.10 ity of [place] [facility] 4.2.7.2.686 [place] as [id number] [facility] [address] 2021-09-10 2021-09-10 Kishan Hammond [facility] 1.2.191.916 [id number] Univers 00:00:00 00:00:00 [facility] 350.1.13.10 it y of [place] 4.2.7.2.686 [place] as NORRIS?BLEA [phone] Me dical [address] OFFICE [facility] 2021-09-05 2021-09-05 Oncology Social Worker Lab, Ang - Db [facility] 1.2.840.1 14 [id number] Univers 14:30:00 14:45:00 Visit Raul Hammond HEALTH 350.1.13.10 ity of [place] 4.2.7.2.686 [place] as NORRIS?BLEA [phone] [facility] [address] [facility] OFFICE [facility] 2021-09-05 2021-09-05 Outpatient R [facility] [id number] Univers 14:30:00 14:30:00 RAULGUS cole [facility] 2021-09-05 2021-09-05 Outpatient R [facility] [id number] Univers 13:30:00 14:23:24 RAULGUS cole [facility] 2021-09-05 2021-09-05 Office [facility] 1.2.840.114 [id number] Univers 13:30:00 14:23:24 Visit Raul [facility] 350.1.13.10 it [facility] 4.2.7.2.686 [place] as NORRIS?BLEA [id number] [address] OFFICE [facility] 2021-09-05 2021-09-05 Office [facility] 1.2.840.114 [id number] Univers 13:30:00 14:23:24 Visit Raul HEALTH 350.1.13.10 it y of [place] 4.2.7.2.686 [place] as NORRIS?BLEA [id number] [address] OFFICE [facility] 2021-09-05 2021-09-05 Outpatient R MANISH [facility] [id number] Univers 13:30:00 14:23:24 RAUL cole [facility] 2021-09-05 2021-09-05 Telephone Mohinder [facility] 1.2.059.926 [id number] Univers 00:00:00 00:00:00 Maritza A HEALTH 350.1.13.10 i ty of [place] 4.2.7.2.686 [place] as NORRIS?BLEA [phone] [facility] [address] MEDICAL OFFICE [facility] 2021-09-03 2021-09-03 Outpatient R MANISH [facility] [id number] Univers 16:00:00 16:00:00 RAUL ity [facility] 2021-09-02 2021-09-02 Outpatient R [facility] [id number] Univers 10:00:00 10:00:00 MARITZA ity [facility] 2021-09-02 2021-09-02 Outpatient R [facility] [id number] Univers 10:00:00 10:00:00 MARITZA ity [facility] 2021-08-29 2021-08-29 Telephone VIDYA Bautista 1.2.238.418 [id number] Univers 00:00:00 00:00:00 Villa ARREDONDO 350.1.13.10 ity [facility] 4.2.7.2.686 [place] as [id number] [address] 2021-08-28 2021-08-28 Laboratory Only, Ang Db Test [facility] 1.2.8 40.114 [id number] Univers 18:00:00 18:15:00 Only Simone, Dustin [employer] 350.1.13.10 ity of [place] 4.2.7.2.686 [place] as NORRIS?BLEA [id number] [address] MEDICAL OFFICE [facility] 2021-08-28 2021-08-28 Outpatient R [facility] [id number] Univers 18:00:00 18:00:00 DUSTIN ity o f [facility] 2021-08-22 2021-08-22 Laboratory Only, Ang Db Test [facility] 1.2.8 40.114 [id number] Univers 20:00:00 20:15:00 Only Haroon Bill HEALTH 350.1.13.10 ity of [place] 4.2.7.2.686 [place] as NORRIS?BLEA [id number] [address] MEDICAL OFFICE [facility] 2021-08-22 2021-08-22 Outpatient R [facility] [id number] Univers 20:00:00 20:00:00 BILL ity [facility] 2021-08-21 2021-08-21 Outpatient R CAROLINE, [facility] [id number] Univers 12:00:00 12:00:00 ROMINA cole o f [facility] 2021-08-21 2021-08-21 Letter Nurse, Harvey [facility] 1.2.840.114 [id number] Univers 00:00:00 00:00:00 (Out) Urgent Care HEALTH 350.1.13.10 ity [facility] 4.2.7.2.686 [place] as NORRIS?BLEA [phone] [address] MEDICAL OFFICE [facility] 2021-08-15 2021-08-15 Outpatient R LUIS [facility] [id number] Univers 11:30:00 11:30:00 KARLA cole o elkin [facility] 2021-08-13 2021-08-13 Outpatient R COREY DURAN [facility] [id number] Univers 08:00:00 08:00:00 COREY DURAN [facility] 2021-08-11 2021-08-11 Outpatient R JC [facility] [id number] Univers 16:00:00 16:31:43 ARTURO [facility] 2021-08-11 2021-08-11 Laboratory Only, Harvey Db Test [facility] 1.2.8 40.114 [id number] Univers 16:00:00 16:15:00 Only Unknown, Attending HEALTH 350.1.13.10 ity [facility] 4.2.7.2.686 [place] as NORRIS?BLEA [id number] [address] MEDICAL OFFICE [facility] 2021-08-09 2021-08-09 Outpatient R COREY DURAN [facility] [id number] Univers 10:00:00 10:00:00 COREY DURAN [facility] 2021-08-05 2021-08-05 Emergency X ANGEL [facility] ERT [id number] Univers 15:05:00 16:44:00 FAVIOLA [facility] 2021-08-05 2021-08-05 Emergency [facility] 1.2.142.293 [id number] Univers 15:05:00 16:44:00 Faviola Langford [place] 350.1.13.10 ity of [place] 4.2.7.2.686 [facility] [id number] [facility] [address] 2021-08-01 2021-08-01 Office [facility] 1.2.840.114 [id number] Univers 09:30:00 10:47:41 Visit Raul HEALTH 350.1.13.10 it y [facility] 4.2.7.2.686 [place] as NORRIS?BLEA [phone] [address] MEDICAL OFFICE [facility] 2021-08-01 2021-08-01 Outpatient R [facility] [id number] Univers 09:30:00 10:47:41 RAUL ity [facility] 2021-08-01 2021-08-01 [facility] 1.2.840.114 [id number] Univers 09:30:00 10:47:41 Visit Raul HEALTH 350.1.13.10 it y of [place] 4.2.7.2.686 [place] as NORRIS?BLEA [id number] [address] OFFICE [facility] 2021-08-01 2021-08-01 Outpatient R [facility] [id number] Univers 09:30:00 10:47:41 RAUL ity [facility] 2021-08-01 2021-08-01 Outpatient R [facility] [id number] Univers 09:30:00 09:30:00 RAUL ity [facility] 2021-07-18 2021-07-18 Outpatient R SALMERON [facility] [id number] Univers 14:00:00 14:35:49 JOSIE ity [facility] 2021-07-18 2021-07-18 Office [facility] 1.2.840.114 [id number] Univers 14:00:00 14:35:49 Visit Josie Collins HEALTH 350.1.13.10 i ty of [place] 4.2.7.2.686 [facility] [id number] [facility] [address] 2021-07-17 2021-07-17 Outpatient Rosalva FINLEY [facility] [id number] Univers 09:00:00 09:00:00 PAMELA cole o f [facility] 2021-07-17 2021-07-17 Outpatient Rosalva FINLEY [facility] [id number] Univers 09:00:00 09:00:00 PAMELA cole o f [facility] 2021-07-12 2021-07-13 Emergency X ANGEL, [facility] ERT [id number] Univers 19:10:00 01:46:00 SDAUDI itshira [facility] 2021-07-12 2021-07-13 Emergency X ANGEL, [facility] ERT [id number] Univers 19:10:00 01:46:00 [facility] 2021-07-12 2021-07-13 Emergency Angel, [facility] 1.2.061.889 [id number] Univers 19:10:00 01:46:00 Faviola [facility] 350.1.13.10 ity of [place] 4.2.7.2.686 [facility] [id number] [facility] [address] 2021-07-12 2021-07-12 Outpatient Rosalva CEDEÑO [facility] [id number] Univers 11:45:00 11:54:39 [facility] 2021-07-12 2021-07-12 Nurse Nurse, [facility] 1.2.840.114 [id number] Univers 11:34:17 11:54:39 [facility] 350.1.13.10 ity of [place] 4.2.7.2.686 Scot as NORRIS?BLEA [id number] [address] MEDICAL OFFICE BUILDING 2021-07-12 2021-07-12 Orders Doctor VIDYA 1.2.840.114 [id number] Univers 00:00:00 00:00:00 Only Unassigned, MARIA ELENA 350.1.13.10 ity of [place] [facility] 4.2.7.2.686 Scot as [phone] [facility] [address] 2021-06-14 2021-06-14 Oncology Social Worker Lab, Ang - Steve [facility] 1.2.840.1 14 [id number] Univers 09:57:31 10:12:31 Visit Corey Duran [facility] 350.1.13. 10 ity of [place] 4.2.7.2.686 Scot as NORRIS?BLEA [id number] [facility] [address] [facility] OFFICE [facility] 2021-06-14 2021-06-14 Outpatient R COREY DURAN [facility] [id number] Univers 09:20:00 09:58:01 COREY DURAN [facility] 2021-06-14 2021-06-14 Outpatient R COREY DURAN [facility] [id number] Univers 09:20:00 09:58:01 COREY DURAN [facility] 2021-06-14 2021-06-14 Office Roger [facility] 1.2.840.114 [id number] Univers 09:17:10 09:58:01 Visit Corey [facility] 350..13.10 ity of [place] 4.2.7.2.686 Scot as NORRIS?BLEA [phone] [facility] [address] [facility] 2021-06-14 2021-06-14 Outpatient R COREY DURAN [facility] [id number] Univers 09:20:00 09:20:00 COREY DURAN [facility] 2021-06-06 2021-06-06 Outpatient R LELO, [facility] [id number] Univers 13:40:00 13:40:00 THOMASDANIS edely o [facility] 2021-06-06 2021-06-06 Outpatient R LELO, [facility] [id number] Univers 13:40:00 13:40:00 THOMASDANIS ity o f [facility] 2021-06-04 2021-06-04 Oncology Social Worker Lab, Ang - Db [facility] 1.2.840.1 14 [id number] Univers 16:23:28 16:38:28 Visit Maritza Vines [facility] 350.1.13.10 ity of [place] 4.2.7.2.686 [place] NORRIS?BLEA [phone] [facility] [address] MEDICAL OFFICE [facility] 2021-06-04 2021-06-04 Outpatient R MANISH [facility] [id number] Univers 16:00:00 16:23:14 RAUL cole [facility] 2021-06-04 2021-06-04 Outpatient R MANISH [facility] [id number] Univers 16:00:00 16:23:14 RAUL cole [facility] 2021-06-04 2021-06-04 [facility] [id number] Univers 15:49:27 16:23:14 Visit Raul HEALTH 350.1.13.10 it y of [place] 4.2.7.2.686 [place] NORRIS?BLEA [phone] [address] MEDICAL OFFICE [facility] 2021-06-03 2021-06-03 Telephone [facility] [id number] Univers 00:00:00 00:00:00 Maritza Tanvi HEALTH 350.1.13.10 i ty of [place] 4.2.7.2.686 [place] NORRIS?BLEA [phone] [address] OFFICE [facility] 2021-06-02 2021-06-02 Emergency X STEPHEN [facility] ERT [id number] Univers 13:06:00 18:42:00 ASHOK hollingsworthshira [facility] 2021-06-02 2021-06-02 [facility] [id number] Univers 13:06:00 18:42:00 Ashok MURCIA 350.1.13.10 ity [facility] 4.2.7.2.686 [place] [phone] [address] 2021-06-02 2021-06-02 Emergency [facility] [id number] Univers 13:06:00 18:42:00 ASHOK cole [facility] 2021-06-02 2021-06-02 Orders Doctor DASILVA 1.2.840.114 [id number] Univers 00:00:00 00:00:00 Only Unassigned, MARIA ELENA 350.1.13.10 ity of [place] [facility] 4.2.7.2.686 [place] [phone] [facility] [address] 2021-05-30 2021-05-30 Outpatient R INESSA, [facility] [id number] Univers 11:15:00 11:15:00 WONDIFUL ity o f [facility] 2021-05-30 2021-05-30 Outpatient R MOHINDER, [facility] [facility] [id number] Univers 10:30:00 10:30:00 MARITZA ity [facility] 2021-05-30 2021-05-30 Outpatient [facility] [id number] Univers 10:30:00 10:30:00 MARITZA ity [facility] 2021-05-14 2021-05-14 Outpatient [facility] [id number] Univers 14:00:00 14:00:00 ity [facility] 2021-05-14 2021-05-14 Outpatient [facility] [id number] Univers 13:00:00 13:00:00 ROSHUNDA ity o [facility] 2021-05-09 2021-05-09 Outpatient [facility] [id number] Univers 14:20:00 14:20:00 ENEDINA ity o [facility] 2021-05-07 2021-05-07 Office [facility] 1.2.840.114 [id number] Univers 09:54:24 10:24:24 Visit [facility] A Health 350.1.13.10 ity of Specialty 4.2.7.2.686 [place] - [phone] [facility] [address] 2021-05-07 2021-05-07 Outpatient [facility] [id number] Univers 09:30:00 09:30:00 HOPKINS ity o [facility] 2021-05-07 2021-05-07 Telephone [facility] 1.2.805.153 [id number] Univers 00:00:00 00:00:00 [facility] A Health 350.1.13.10 it[place] of Specialty 4.[place].2.686 [place] - [phone] [address] 2021-05-06 2021-05-06 Oncology Social Worker Zhang, Adc Lab Main [facility] 1.2.8 40.114 [id number] Univers 17:03:55 17:18:55 Visit Rah Hopkins Tanvi [place] 350.1.13.10 ity of [place] 4.2.7.2.686 [place] Professio [phone] Ks dic[address] 2021-05-06 2021-05-06 Outpatient [facility] [id number] Univers 10:00:00 10:00:00 MARITZA ity [facility] 2021-04-30 2021-04-30 Oncology Social Worker Zhang, Adc Lab Main [facility] 1.2.8 40.114 [id number] Univers 11:47:03 12:02:03 Visit Maritza Vines 350.1.13.10 ity of [place] 4.2.7.2.686 [place] Professio [phone] [address] 2021-04-30 2021-04-30 Outpatient R [facility] [id number] Univers 11:30:00 11:30:00 MARITZA itshira [facility] 2021-04-30 2021-04-30 Telephone [facility] 1.2.092.937 [id number] Univers 00:00:00 00:00:00 Sandeep Tinajero Health 350.1.13.10 ity of [place].2.7.2.686 [place] [phone] [address] Office Building 2021-04-17 2021-04-17 Office [facility] 1.2.840.114 [id number] Univers 12:36:07 13:51:10 Visit Maritza Tinajero Health 350.1.13.10 i ty of [place] 4.2.7.2.686 [place] as Norris?Blea [phone] [place] dickailey kney 044 [facility] Office Building 2021-04-17 2021-04-17 Outpatient R [facility] [id number] Univers 12:30:00 12:30:00 MARITZA itshira of [facility] 2021-04-17 2021-04-17 Orders Doctor VIDYA 1.2.840.114 [id number] Univers 00:00:00 00:00:00 Only Unassigned, MARIA ELENA 350.1.13.10 ity of [place] [facility] 4.2.7.2.686 [place] as [phone] [address] 2021-04-17 2021-04-[address] [facility] 1.2.242.895 [id number] Univers 00:00:00 00:00:00 Maritza A Health 350.1.13.10 i ty of [place] 4.2.7.2.686 [place] as Norris?Blea [phone] [address] Medical Office Building 2021-04-17 2021-04-17 Orders Doctor VIDYA 1.2.840.114 [id number] Univers 00:00:00 00:00:00 Only Unassigned, MARIA ELENA 350.1.13.10 ity of [place] [facility] 4.2.7.2.686 [place] as [phone] [address] 2021-03-21 2021-03-21 Telephone Dipti, [facility] [place] 1.2.840.11 [id number] Univers 00:00:00 00:00:00 Radha Granados HEALTH 350.1.13.10 i ty of CLINICS 4.2.7.2.686 [place] [phone] [place] 211215 [place] 2021-03-15 2021-03-15 Emergency Faviola Ortiz [facility] 1.2.840 .114 [id number] Univers 00:58:00 18:31:00 [place] 350.1.13.10 ity of [place] 4.2.7.2.686 [place] [phone] [place] 126904 [place] 2021-03-07 2021-03-07 Office Pgy2 [facility] 1.2.930.642 [id number] Univers 15:22:23 15:37:23 Visit Sandeep Monreal Y HEALTH 350.1.13.10 ity of CLINICS 4.2.7.2.686 [place] [phone] [facility] [address] 2021-03-07 2021-03-07 Outpatient R [facility] [id number] Univers 15:15:00 15:15:00 ity of [facility] 2021-03-06 2021-03-06 Outpatient R [facility] [id number] Univers 10:30:00 10:30:00 MARITZA cole [facility] 2021-03-05 2021-03-05 Emergency Claudia Carranza [facility] 1.2.840.114 [id number] Univers 00:44:00 05:15:00 Joanna Murcia 350.1.13.10 i ty of [place] 4.2.7.2.686 [facility] [phone] [facility] 084 [address] 2021-03-05 2021-03-05 Orders Doctor VIDYA 1.2.840.114 [id number] Univers 00:00:00 00:00:00 Only Unassigned, MARIA ELENA 350.1.13.10 ity of [place] [facility] 4.2.7.2.686 [place] as [phone] [facility] 009 [address] 2021-02-28 2021-02-28 Office Malia [facility] 1.2.840.114 [id number] Univers 10:36:17 11:42:08 Visit Pamela Blackwell ELECT[employer] GOL[employer] REPAIRER 350.1.13.10 ity of [facility] 4.2.7.2.686 [place] as MATERNAL [phone] Med ical & CHILD [address] [place] [address] 2021-02-28 2021-02-28 Outpatient R MALIA [facility] [id number] Univers 10:45:00 10:45:00 PAMELA cole o f [facility] 2021-02-22 2021-02-22 Outpatient R MOHINDER [facility] [id number] Univers 13:00:00 13:00:00 MARITZA cole [facility] 2021-02-22 2021-02-22 Telephone Mohinder [facility] 1.2.417.646 [id number] Univers 00:00:00 00:00:00 Maritza Tinajero [facility] 350.1.13.10 i ty of [place] 4.2.7.2.686 [place] as Professio [phone] [facility] 044 [place] Office [facility] One 2021-02-21 2021-02-21 Emergency [facility] 1.2.840.114 [id number] Univers 14:23:00 16:09:00 Radha [place] 350.1.13.10 ity of [place] 4.2.7.2.686 [place] [facility] [phone] [address] 2021-02-21 2021-02-21 Telephone [facility] 1.2.840.114 [id number] Univers 00:00:00 00:00:00 Osvaldo Chisholm E[employer] GOL[employer] REPAIRER 350.1.13.10 ity of [facility] 4.2.7.2.686 [place] as MATERNAL [phone] [facility] ical & CHILD [address] [place] [address] 2021-02-19 2021-02-19 Office [facility] 1.2.908.508 [id number] Univers 13:50:26 14:20:33 Visit Osvaldo Chisholm ELECT[employer] GOL[employer] REPAIRER 350.1.13.10 ity of [facility] 4.2.7.2.686 [place] as MATERNAL [phone] [facility] ical & CHILD [address] [place] [address] 2021-02-19 2021-02-19 Outpatient R ERIS [facility] [id number] [facility] 14:00:00 14:00:00 OSVALDO hollingswotrhy o f [facility] 2021-02-18 2021-02-18 Telephone [facility] 1.2.303.863 [id number] Univers 00:00:00 00:00:00 Maritza Tinajero [facility] 350.1.13.10 i ty of [place] 4.2.7.2.686 [place] as Professio [phone] [address] One 2021-02-11 2021-02-11 Urgent Provider, [facility] 1.2.840.114 [id number] Univers 16:48:53 18:10:35 Care Graham Melara 350.1.13.10 ity of [place] 4.2.7.2.686 [place] as Professio [phone] [place]s dical nal 044 [place] Office Building One 2021-02-11 2021-02-11 Outpatient R [facility] [id number] Univers 17:00:00 17:00:00 ity [facility] 2021-02-07 2021-02-07 Outpatient [facility] [id number] Univers 08:15:00 08:15:00 WONDIFUL ity o f [facility] 2021-02-06 2021-02-06 Outpatient R [facility] [id number] Univers 13:30:00 13:30:00 [facility] 2021-02-06 2021-02-06 Orders Doctor VIDYA 1.2.840.114 [id number] Univers 00:00:00 00:00:00 Only Unassigned, MARIA ELENA 350.1.13.10 ity of [place] [facility] 4.2.7.2.686 [place] as [phone] [address] 2021-01-29 2021-01-29 Outpatient R ZBIGNIEW, [facility] [id number] Univers 14:30:00 14:30:00 WENTONG [facility] 2021-01-28 2021-01-28 Outpatient [facility] [id number] Univers 10:30:00 10:30:00 JOSIE [facility] 2021-01-25 2021-01-25 Outpatient R [facility] [id number] Univers 11:30:00 11:30:00 ELEAZAR [facility] 2021-01-25 2021-01-25 Telephone [facility] 1.2.154.001 [id number] Univers 00:00:00 00:00:00 Maritza A Health 350.1.13.10 i ty of [place] 4.2.7.2.686 [place] as Professio [phone] Ks dical nal 044 [facility] One 2021-01-22 2021-01-22 Oncology Social Worker Lab, Adc Fam Pob I [facility] 1.2. 840.114 [id number] Univers 14:45:57 15:05:57 Visit uDstin Nichols [facility] 350.1.13.10 ity of [place] 4.2.7.2.686 [place] as Professio [phone] [address] Office [facility] One 2021-01-22 2021-01-22 Office [facility] 1.2.840.114 [id number] Univers 13:54:55 14:46:[address] [facility] 350.1.13.10 i ty of [place] 4.2.7.2.686 [place] as Professio [phone] [address] One 2021-01-22 2021-01-22 Outpatient R [facility] [id number] Univers 14:00:00 14:00:00 DUSTIN harmon [facility] 2021-01-20 2021-01-20 [facility] 1.2.378.248 [id number] Univers 01:27:00 04:30:00 Faviola Langford [place] 350.1.13.10 itDay [facility] 4.2.7.2.686 [place] [facility] [phone] [address] 2021-01-18 2021-01-18 Outpatient R SAI [facility] [id number] Univers 10:30:00 10:30:00 ELEAZAR cole [facility] 2021-01-10 2021-01-10 Outpatient R [facility] [id number] Univers 13:15:00 13:15:00 OSVALDO granger [facility] 2021-01-02 2021-01-02 Outpatient R ERIS [facility] [id number] Univers 08:00:00 08:00:00 OSVALDO granger [facility] 2020-11-14 2020-11-14 Office [facility] 1.2.668.467 [id number] 13:09:00 14:20:05 Visit Osvaldo Chisholm ELECTR[employer] GOL[employer] C[employer] REPAIRER 350.1.13.10 [facility] 4.2.7.2.686 MATERNAL [phone] & CHILD [address] [place] [address] 2020-11-14 2020-11-14 Office [facility] 1.2.724.003 [id number] Univers 13:09:00 14:20:05 Visit Osvaldo Chisholm ELECTR[employer] GOLF C[employer] REPAIRER 350.1.13.10 ity of [facility] 4.2.7.2.686 [place] as MATERNAL [phone] Med ical & CHILD 107 [facility] 2020-11-14 2020-11-14 Outpatient R ERIS [facility] [id number] Univers 13:15:00 13:15:00 OSVALDO ity o f [facility] 2020-11-11 2020-11-12 [facility] 1.2.179.512 [id number] Univers 20:34:00 00:26:00 Faviola Langford [place] 350.1.13.10 ity of [place] 4.2.7.2.686 [place] [phone] [facility] 084 [place] 2020-11-10 2020-11-10 Outpatient [facility] [id number] Univers 13:55:00 13:55:00 ity of [facility] 2020-11-04 2020-11-04 Emergency [facility] 1.2.463.700 [id number] Univers 18:01:00 20:04:00 Jemiam Murcia 350.1.13.10 i ty of [place] 4.2.7.2.686 [place] [phone] [facility] 084 [place] 2020-10-30 2020-10-30 1.2.840.1 1.2.840.114 [id number] Univers 00:00:00 00:00:00 Encounter [id number] 350.1.13.10 ity of 3.104.2.7 4.2.7.2.696 [place] .[id number] [address] Med[address] l [place] 2020-10-29 2020-10-29 Telephone [facility] 1.2.339.330 [id number] Univers 00:00:00 00:00:00 Juan Murcia 350.1.13.10 i ty of [place] 4.2.7.2.686 [place] [facility] [phone] Ks dical nal 220 [facility] 2020-10-29 2020-10-29 Telephone [facility] 1.2.277.618 [id number] Univers 00:00:00 00:00:00 [facility] 350.1.13.10 i ty of [place] 4.2.7.2.686 [place] Profess[place] [phone] [address] 2020-10-26 2020-10-26 Outpatient R MARY [facility] [id number] Univers 15:00:00 15:00:00 [facility]IR [facility] 2020-10-25 2020-10-25 Telephone [facility] 1.2.581.532 [id number] Univers 00:00:00 00:00:00 [facility] 350.1.13.10 i ty of [place] 4.2.7.2.686 [place] Profess[place] [id number] [address] 2020-10-24 2020-10-24 Routine Akinsharonda [facility] 1.2.512.963 [id number] Univers 15:58:25 16:30:47 Osvaldo C ELECTR[employer] GOLF C[employer] REPAIRER 350.1.13.10 ity of Visit [facility] 4.2.7.2.686 [place] as MATERNAL [phone] Med ical & CHILD [address] [place] [address] 2020-10-24 2020-10-24 Office Zbigniew [facility] 1.2.840.114 [id number] Univers 08:32:21 09:34:52 Visit [facility] 350.1.13.10 i ty of [place] 4.2.7.2.686 [place] Profess[place] [phone] [address] 2020-10-24 2020-10-24 Outpatient R ZBIGNIEW [facility] [id number] Univers 08:30:00 08:30:00 [facility] 2020-10-20 2020-10-20 Outpatient [facility] [id number] Univers 13:45:00 13:45:00 ity [facility] 2020-10-19 2020-10-19 Telephone [facility] 1.2.674.689 [id number] Univers 00:00:00 00:00:00 [facility] 350.1.13.10 it y of [place] 4.2.7.2.686 [place] as Professio [phone] Ks [facility] 044 [place] Office [facility] One 2020-10-18 2020-10-18 Hospital [facility] 1.2.840.114 [id number] Univers 20:14:02 23:59:00 Encounter Anna Murcia 350.1.13.10 ity of [place] 4.2.7.2.686 [place] [facility] [phone] [facility] 807 [place] 2020-10-18 2020-10-18 Urgent Provider, [facility] 1.2.840.114 [id number] Univers 18:26:47 19:49:55 Care Caroline, Romina [facility] 350.1.13.10 ity of [place] 4.2.7.2.686 [place] as Professio [phone] [address] One 2020-10-18 2020-10-18 Outpatient R CAROLINE [facility] [id number] Univers 18:40:00 18:40:00 ROMINA granger [facility] 2020-10-13 2020-10-13 Nurse VIDYA Barrios 1.2.840.114 [id number] Univers 00:00:00 00:00:00 Triage Yesenia ARREDONDO 350.1.13.10 it y of [facility] 4.2.7.2.686 [place] as [phone] [facility] 019 [place] 2020-10-11 2020-10-11 Nurse Visit, Dione Nurse [facility] 1.2 .840.114 [id number] Univers 10:20:05 10:38:28 Visit Osvaldo Schulte ELECTR[employer] GOLF C[employer] REPAIRER 350.1.13. 10 ity of [facility] 4.2.7.2.686 [place] as MATERNAL [phone] Med ical & CHILD [address] [place] [address] 2020-10-11 2020-10-11 Outpatient R ERIS [facility] [id number] Univers 10:30:00 10:30:00 OSVALDO granger [facility] 2020-10-11 2020-10-11 1.2.840.1 1.2.840.114 [id number] Univers 00:00:00 00:00:00 Encounter 84614.1.1 350.1.13.10 ity of 3.104.2.7 4.2.7.2.696 [place] .2.071789 [address] [place] 2020-10-08 2020-10-08 1.2.840.1 1.2.840.114 [id number] Univers 00:00:00 00:00:00 Encounter 05695.1.1 350.1.13.10 ity of 3.104.2.7 4.2.7.2.696 [place] .2.707694 570 Medica l [place] 2020-10-01 2020-10-01 Telemedici Faculty, Harvey [facility] 1.2.840.114 [id number] Univers 09:23:14 14:54:50 ne Visit Basia Carreon ELECTRIC GOLF C[employer] REPAIRER 350.1.13.10 ity of [facility] 4.2.7.2.686 [place] as MATERNAL [phone] Med ical & CHILD 107 [facility] 2020-09-27 2020-09-27 Hospital Vidya Dean [facility] 1.2.840.114 [id number] Univers 14:29:00 22:45:00 Encounter [facility] 350.1.13.10 ity of [place] 4.2.7.2.686 [facility] [phone] [place] 126903 [place] 2020-09-27 2020-09-27 Outpatient P VIDYA DEAN [facility] DENISE [id number] Univers 14:29:00 22:45:00 ity of [facility] 2020-09-27 2020-09-27 Outpatient R [facility] [id number] Univers 13:00:00 13:00:00 ity of [facility] 2020-09-27 2020-09-27 Telemedici Fellow, Christiano maricruz [facility] 1 .2.840.114 [id number] Univers 07:53:52 08:08:52 ne Visit Basia Carreon ELECTR[employer] GOLF CART REPAIRER 350.1.13.10 ity of [facility] 4.2.7.2.686 [place] as MATERNAL [phone] Med ical & CHILD 124 [facility] 2020-09-24 2020-09-24 Routine Faculty, Harvey [facility] 1.2 .840.114 [id number] Univers 14:32:43 15:03:55 Aaron Li ELECTRIC GOLF CART REPAIRER 350.1.13.10 ity of Visit REGIONAL 4.2.7.2.686 [place] as MATERNAL [phone] [facility] ical & CHILD 107 [facility] 2020-09-24 2020-09-24 Outpatient R [facility] [id number] Univers 14:30:00 14:30:00 ity [facility] 2020-09-19 2020-09-22 [facility] VIDYA Sethi 1.2.904.429 [id number] Univers 20:30:00 10:35:00 Encounter Thompson ARREDONDO 350.1.13.10 ity [facility] 4.2.7.2.686 [place] as [phone] [address] 2020-09-20 2020-09-20 Outpatient R [facility] [id number] Univers 15:00:00 15:00:00 ity [facility] 2020-09-13 2020-09-13 Routine Risk, Cfg-Ejdql-Iq/High [facility] 1. 2.840.114 [id number] Univers 14:30:12 15:31:05 Tania Vazquez ELECTRIC GOLF CART REPAIRER 350.1.13.10 ity of Visit [facility] 4.2.7.2.686 [place] as MATERNAL [phone] [facility] ical & CHILD [address] [place] [address] 2020-09-13 2020-09-13 Outpatient R GEORGE [facility] [id number] Univers 14:30:00 14:30:00 TANIA cole [facility] 2020-09-11 2020-09-11 Outpatient P AARON LI [facility] [id number] Univers 13:30:00 13:30:00 AARON LI [facility] 2020-09-02 2020-09-09 [facility] Leslye DASILVA 1.2.840.114 [id number] Univers 23:37:00 14:30:00 Encounter Camron MARIA ELENA 350.1.13.10 ity of s, [facility] 4.2.7.2.686 [place] as [phone] [facility] [address] 2020-09-09 2020-09-09 Letter YASMIN PearsonIT 1.2.840.114 [id number] Univers 00:00:00 00:00:00 (Out) [facility] 350.1.13.10 i ty of CLINICS 4.2.7.2.686 [place] [phone] [facility] [address] 2020-09-06 2020-09-06 Outpatient P FARHAN [facility] [id number] Univers 13:00:00 13:00:00 NICHOLE [facility] 2020-09-02 2020-09-02 Emergency [facility] 1.2.298.530 [id number] Univers 12:27:00 15:04:00 Jemima Murcia 350.1.13.10 i ty of [place] 4.2.7.2.686 [place] [phone] [facility] 084 [address] 2020-09-02 2020-09-02 Orders Doctor VIDYA 1.2.840.114 [id number] Univers 00:00:00 00:00:00 Only Unassigned, MARIA ELENA 350.1.13.10 ity of [place] [facility] 4.2.7.2.686 [place] as [phone] [facility] 009 [address] 2020-08-30 2020-08-30 Outpatient R [facility] [id number] Univers 15:30:00 15:30:00 ity [facility] 2020-08-28 2020-08-28 Telephone ANEL Munoz 1.2.840.114 [id number] Univers 00:00:00 00:00:00 [facility] 350.1.13.10 i ty of CLINICS 4.2.7.2.686 [place] [phone] [facility] [address] 2020-08-28 2020-08-28 Telephone Eris [facility] 1.2.840.114 [id number] Univers 00:00:00 00:00:00 Osvaldo Chisholm ELECTRIC GOLF C[employer] REPAIRER 350.1.13.10 ity of REGIONAL 4.2.7.2.686 [place] as MATERNAL [phone] [facility] & CHILD [address] [place] [address] 2020-08-23 2020-08-23 Routine Risk, Gih-Vdlob-Gy/High [facility] 1. 2.840.114 [id number] Univers 15:25:42 16:19:39 Tania Vazquez ELECTRIC GOLF CART REPAIRER 350.1.13.10 ity of Visit REGIONAL 4.2.7.2.686 [place] as MATERNAL [phone] [facility] & [address] 2020-08-23 2020-08-23 Outpatient R [facility] [id number] Univers 11:00:00 11:00:00 ity of [facility] 2020-08-16 2020-08-16 Routine Risk, Zuw-Xbvjw-Pj/High [facility] 1. 2.840.114 [id number] Univers 13:22:11 13:37:11 Crystal Menard ELECTRIC GOLF CART REPAIRER 350.1.13.10 ity of Visit REGIONAL 4.2.7.2.686 [place] as MATERNAL [phone] [address] 2020-08-16 2020-08-16 Outpatient R [facility] [id number] Univers 13:30:00 13:30:00 ity of [facility] 2020-08-16 2020-08-16 Orders Doctor DASILVA 1.2.840.114 [id number] Univers 00:00:00 00:00:00 Only Unassigned, MARIA ELENA 350.1.13.10 ity of [place] [facility] 4.2.7.2.686 Scot as [phone] [facility] [address]9 [address] 2020-08-09 2020-08-11 Hospital VIDYA Real 1.2.840.114 [id number] Univers 18:41:00 13:02:00 Encounter Nichole ARREDONDO 350.1.13.10 ity of HOSPITAL 4.2.7.2.686 [place] as [phone] [facility] 019 [place] 2020-08-09 2020-08-09 Routine Risk, Tnt-Hskxg-Ex/High [facility] 1. 2.840.114 [id number] Univers 13:21:37 14:25:58 VazquezTania christie Joey ELECTRIC GOLF CART REPAIRER 350.1.13.10 ity of Visit REGIONAL 4.2.7.2.686 [place] as MATERNAL [phone] Med ical & CHILD 107 [facility] 2020-08-09 2020-08-09 Outpatient R [facility] [id number] Univers 14:00:00 14:00:00 ity of [facility] 2020-08-09 2020-08-09 Oncology Social Worker Ultrasound, Jaqueline [facility] 1.2 .840.114 [id number] Univers 12:52:13 13:21:14 Visit Nichole Real [employer] REPA[employer]ER 350.1.13.10 ity of REGIONAL 4.2.7.2.686 [place] as MATERNAL [phone] Med ical & CHILD 369 [facility] 2020-08-09 2020-08-09 Orders Doctor VIDYA 1.2.840.114 [id number] Univers 00:00:00 00:00:00 Only Unassigned, MARIA ELENA 350.1.13.10 ity of [facility] 4.2.7.2.686 Scot as [phone] [address] 2020-08-08 2020-08-08 [facility] 1.2.840.114 [id number] Univers 16:18:00 20:20:00 Encounter Adelaida Murcia 350.1.13.10 ity of [place] 4.2.7.2.686 [place] [facility] [phone] [facility] [address] [place] 2020-08-08 2020-08-08 Orders Doctor VIDYA 1.2.840.114 [id number] Univers 00:00:00 00:00:00 Only Unassigned, MARIA ELENA 350.1.13.10 ity of [facility] 4.2.7.2.686 [place] as [id number] [facility] [address] [place] 2020-07-31 2020-07-31 Routine Akinsipe, [facility] 1.2.561.164 [id number] Univers 14:33:59 15:07:48 Osvaldo C [employer] REPAIRER 350.1.13.10 ity of Visit REGIONAL 4.2.7.2.686 [place]ot as MATERNAL [phone] [facility] & CHILD [address] [place] [address] 2020-07-31 2020-07-31 Outpatient R ERIS [facility] [id number] Univers 14:30:00 14:30:00 OSVALDO ity o f [facility] 2020-07-23 2020-07-23 Outpatient R [facility] [id number] Univers 10:00:00 10:00:00 ity of [facility] 2020-07-22 2020-07-22 Emergency Efrem Sherry [facility] 1.2.840. 114 [id number] Univers 15:14:00 17:33:00 Vidya Dean [facility] 350.1.13.10 ity of [place] 4.2.7.2.686 [place] [facility] [phone] [address] 2020-07-22 2020-07-22 Outpatient P VIDYA DEAN [facility] DENISE [id number] Univers 15:14:00 15:14:00 ity of [facility] 2020-07-16 2020-07-16 Routine [facility] 1.2.810.662 [id number] Univers 10:49:31 11:34:46 Osvaldo C ELECTRIC GOLF CART REPAIRER 350.1.13.10 ity of Visit [facility] 4.2.7.2.686 [place] as MATERNAL [phone] [facility] & CHILD [address] [place] [address] 2020-07-16 2020-07-16 Routine Faculty, [facility] 1.2 .840.114 [id number] Univers 10:03:55 10:49:16 Aaron Li ELECTRIC GOLF CART REPAIRER 350.1.13.10 ity of Visit [facility] 4.2.7.2.686 [place] MATERNAL [id number] [facility] & CHILD [address] [place] [address] 2020-07-16 2020-07-16 Outpatient R [facility] [id number] Univers 09:00:00 09:00:00 ity of [facility] 2020-07-16 2020-07-16 Orders Doctor VIDYA 1.2.840.114 [id number] Univers 00:00:00 00:00:00 Only Unassigned, MARIA ELENA 350.1.13.10 [facility]y [facility] [address]686 [place] as [phone] [address] 2020-07-12 2020-07-12 Outpatient P ABIMBOLA GILL [facility] [id number] Univers 10:30:00 10:30:00 ity [facility] 2020-07-11 2020-07-11 Outpatient R RAH, [facility] [id number] Univers 13:30:00 13:30:00 SANDEEP ity o f [facility] 2020-07-09 2020-07-09 Telemedici Faculty, [facility] 1.2.840.114 [id number] Univers 08:08:55 16:43:54 ne Visit Aaron Li ELECTRIC GOLF CART REPAIRER 350.1.13.10 [place] [address].2.7.2.686 [place] MATERNAL [phone] Med ical & CHILD [address] [facility] 2020-07-09 2020-07-09 Outpatient R AARON LI [facility] [id number] Univers 15:30:00 15:30:00 [facility] 2020-07-09 2020-07-09 Oncology Social Worker [facility]tras[facility], [facility] 1.2 .840.114 [id number] Univers 13:00:00 14:06:35 Visit Aaron Li ELECTRIC GOLF CART REPAIRER 350.1.13.10 [place] [address].7.2.686 [place] MATERNAL [phone] [facility] ical & CHILD [address] [facility] 2020-07-02 2020-07-02 Outpatient R [facility] [id number] Univers 09:45:00 09:45:00 ity [facility] 2020-07-02 2020-07-02 Telemedici Faculty, [facility] 1.2.840.114 [id number] Univers 08:27:24 08:57:24 ne Visit Dio Abbott ELECTRIC GOLF CART REPAIRER 350.1 .13.10 ity of REGIONAL 4.2.7.2.686 [place] MATERNAL [id number] [facility] & CHILD [address] [place] [address] 2020-06-27 2020-06-27 Office Mary [facility] 1.2.840.114 [id number] Univers 10:04:07 11:12:04 Visit [facility] 350.1.13.10 it y of [place].2.686 [place] [phone] [address] 2020-06-27 2020-06-27 Outpatient R MARY [facility] [id number] Univers 10:00:00 10:00:00 HUMAIR ity [facility] 2020-06-26 2020-06-26 Telephone [facility] 1.2.840.114 [id number] Univers 00:00:00 00:00:00 Osvaldo Chisholm ELECTRIC GOLF CART REPAIRER 350.1.13.10 ity of REGIONAL 4.2.7.2.686 [place] MATERNAL [phone] [facility] & CHILD [address] [place] [address] 2020-06-25 2020-06-25 Routine Faculty, [facility] 1.2 .840.114 [id number] Univers 09:02:18 09:43:31 Basia Carreon ELECTRIC GOLF CART REPAIRER 350.1.13.10 ity of Visit REGIONAL 4.2.7.2.686 [place] MATERNAL [phone] [facility] & [address] 2020-06-25 2020-06-25 Outpatient R [facility] [id number] Univers 09:15:00 09:15:00 ity [facility] 2020-06-22 2020-06-22 Telephone [facility] 1.2.840.114 [id number] Univers 00:00:00 00:00:00 Osvaldo Chisholm ELECTRIC GOLF CART REPAIRER 350.1.13.10 ity of REGIONAL 4.2.7.2.686 [place] MATERNAL [phone] [facility] & CHILD [address] [place] [address] 2020-06-20 2020-06-20 Outpatient R ERIS [facility] [id number] Univers 10:30:00 10:30:00 OSVALDO cole o f [facility] 2020-06-19 2020-06-19 Telephone ANEL Khan 1.2.840.114 [id number] Univers 00:00:00 00:00:00 [facility] 350.1.13.10 i ty of [facility] 4.2.7.2.686 [place] [id number] [facility] [address] [place] 2020-06-18 2020-06-18 Outpatient R [facility] [id number] Univers 10:30:00 10:30:00 ity of [facility] 2020-06-18 2020-06-18 Telemedici Faculty, [facility] 1.2.840.114 [id number] Univers 09:51:46 10:21:46 ne Visit Dio Abbott ELECTRIC GOLF CART REPAIRER 350.1 .13.10 ity of [facility] 4.2.7.2.686 [place] MATERNAL [phone] Med ical & CHILD [address] [place] [address] 2020-06-13 2020-06-13 Emergency Singer [facility] 1.2.929.920 [id number] Univers 13:56:00 15:42:00 Sameer Murcia 350.1.13.10 i ty of [place] 4[place]2.7.2.686 [place] [id number] [facility] [address] 2020-06-11 2020-06-11 Routine Faculty, [facility] 1.2 .840.114 [id number] Univers 09:37:31 10:48:32 Carla Alegre ELECTRIC GOLF CART REPAIRER 350.1.13.10 ity of Visit [facility] 4.2.7.2.686 [place] MATERNAL [phone] Med ical & CHILD [address] [place] [address] 2020-06-11 2020-06-11 Outpatient R [facility] [id number] Univers 09:00:00 09:00:00 ity of [facility] 2020-06-11 2020-06-11 Orders Doctor DASILVA 1.2.840.114 [id number] Univers 00:00:00 00:00:00 Only Unassigned, MARIA ELENA 350.1.13.10 ity of [place] [facility] 4.2.7.2.686 [place] as [phone] [facility] [address] [place] 2020-06-04 2020-06-05 Telemedici Faculty, [facility] 1.2.840.114 [id number] Univers 08:18:00 14:22:03 ne Visit Leslye RamírezjeremiahDio nath ELECTRIC GOLF CART REPAIRER 350.1 .13.10 ity of Osvaldo Schulte REGIONAL 4.2.7.2.68 6 [place] MATERNAL [id number] [facility] ical & CHILD [address] [place] [address] 2020-06-04 2020-06-04 Outpatient R LESLYE [facility] [id number] Univers 14:15:00 14:15:00 CAMRON it y of Anastasiya WHARTON [facility] 2020-05-24 2020-05-28 [facility] VIDYA Li 1.2.840.114 [id number] Univers 19:22:00 14:36:00 Encounter Aaron Narayan MARIA ELENA 350.1.13.10 ity of HOSPITAL 4.2.7.2.686 [place] as [phone] [facility] [address] [place] 2020-05-28 2020-05-28 Outpatient R [facility] [id number] Univers 13:00:00 13:00:00 ity of [facility] 2020-05-24 2020-05-24 Routine Risk, Cvr-Qqrha-Ak/High [facility] 1. 2.840.114 [id number] Univers 14:23:40 16:18:10 Tania Vazquez ELECTRIC GOLF CART REPAIRER 350.1.13.10 ity of Visit REGIONAL 4.2.7.2.686 [place] MATERNAL [phone] [facility] & CHILD [address] [place] [address] 2020-05-24 2020-05-24 Outpatient R [facility] [id number] Univers 14:30:00 14:30:00 ity of [facility] 2020-05-21 2020-05-21 Outpatient R ABIMBOLA GILL [facility] [id number] Univers 10:15:00 10:15:00 ity [facility] 2020-05-17 2020-05-17 Routine Risk, Gtd-Vcijm-Xi/High [facility] 1. 2.840.114 [id number] Univers 14:42:13 15:09:43 Osvaldo Schulte ELECTRIC GOLF CART REPAIRER 350.1.13 .10 ity of Visit REGIONAL 4.2.7.2.686 [place] MATERNAL [phone] [facility] ical & CHILD [address] [facility] 2020-05-17 2020-05-17 Outpatient R [facility] [id number] Univers 15:00:00 15:00:00 ity of [facility] 2020-05-17 2020-05-17 Outpatient [facility] [id number] Univers 15:00:00 15:00:00 OSVALDO ity o f [facility] 2020-05-16 2020-05-16 Emergency [place], [facility] 1.2.171.353 [id number] Univers 17:21:00 19:33:00 Sameer [place] 350.1.13.10 i ty [facility] 4.2.7.2.686 [place] [id number] [address] 2020-05-16 2020-05-16 Telephone [facility] 1.2.840.114 [id number] Univers 00:00:00 00:00:00 Osvaldo Chisholm ELECTRIC GOLF CART REPAIRER 350.1.13.10 ity of REGIONAL 4.2.7.2.686 [place] MATERNAL [phone] [facility] ical & CHILD [address] [place] [address] 2020-05-10 2020-05-10 Oncology Social Worker Ultrasound, [facility] 1.2 .840.114 [id number] Univers 15:41:17 16:11:17 Visit Thompson Sethi ELECTRIC GOLF CART REPAIRER 350.1.13.1 0 ity of REGIONAL 4.2.7.2.686 [place] MATERNAL [phone] [facility] ical & CHILD [address] [facility] 2020-05-10 2020-05-10 Outpatient P [facility] [id number] Univers 15:15:00 15:15:00 ity of [facility] 2020-05-08 2020-05-08 Michael ColeyChelseaid [facility]ERSIT 1.2.840.114 [id number] Univers 00:00:00 00:00:00 Management [facility] 350.1.13.10 ity of CLINICS 4[place]2.7.2.[place] [id number] [address] 2020-05-07 2020-05-07 Outpatient R [facility] [id number] Univers 10:00:00 10:00:00 ity of [facility] 2020-05-07 2020-05-07 Telemedici Faculty, [facility] 1.2.840.114 [id number] Univers 08:42:41 09:12:41 ne Visit Aaron Li ELECTRIC GOLF CART REPAIRER 350.1.13.10 ity of REGIONAL 4.2.7.2.686 [place] MATERNAL [id number] [facility] ical & CHILD [address] [place] [address] 2020-05-07 2020-05-[address] [facility] 1.2.840.114 [id number] Univers 00:00:00 00:00:00 Osvaldo C ELECTRIC GOLF CART REPAIRER 350.1.13.10 ity of REGIONAL 4.2.7.2.686 [place] MATERNAL [phone] [facility] & CHILD [address] [place] [address] 2020-04-20 2020-04-[address] 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 2020-04-16 2020-04-16 Orders Doctor DASILVA 1.2.840.114 [id number] Univers 00:00:00 00:00:00 Only Unassigned, MARIA ELENA 350.1.13.10 ity of [place] [facility] 4.2.7.2.686 Soct [id number] [facility] [address] [place] 2020-04-06 2020-04-06 Emergency [facility] 1.2.672.990 [id number] Univers 15:01:00 16:55:00 Marilee Murcia 350.1.13.10 ity of [place] 4.2.7.2.686 [facility] [id number] [place] [address] [place] 2020-01-10 2020-01-10 Emergency Simran COONEY, [facility] ERT [id number] Univers 17:11:44 22:23:00 [facility] 2019-03-25 2019-03-25 Emergency [facility] 1.2.824.711 [id number] Univers 07:56:38 11:39:00 Faviola Murcia 350.1.13.10 ity [facility] 4.2.7.2.686 [facility] [phone] [address] 2018-07-13 2018-07-13 Emergency [facility] E[facility] [id number] Univers 09:57:43 13:30:00 SHINTA [facility] Results Test Description Test Time Test Comments [...] 3267) cloudy Lab Interpretation (test code = 34641-6) Abnormal [facility] URINALYSIS W SPECIFIC [id number] 23:17:00 Test Item Value Reference Range Interpretation [...] 3267) Lab Interpretation (test code Abnormal = 94325-4) [facility] URINALYSIS W SPECIFIC [id number] 23:17:00 Test Item Value Reference Range Interpretation [...] 3267) Lab Interpretation (test code Abnormal = 28295-5) [facility] [id number] 23:16:00 Test Item Value Reference Range Interpretation Comments POCT PREG (test code = 1605) Negative On board controls acceptable with C Yes Line (test code = 3574) POCT PREG LOT # (test code = 3575) POCT PREG TEST DATE (test code = 3576) Lab Interpretation (test code = Normal 52060-3) [facility] [id number] 23:16:00 Test Item Value Reference Range Interpretation Comments POCT PREG (test code = 1605) Negative On board controls acceptable with C Yes Line (test code = 3574) POCT PREG LOT # (test code = 3575) POCT PREG TEST DATE (test code = 3576) Lab Interpretation (test code = Normal 20274-1) [facility] [id number] 23:16:00 Test Item Value Reference Range Interpretation Comments POCT PREG (test code = 1605) Negative On board controls acceptable with C Yes Line (test code = 3574) POCT PREG LOT # (test code = 3575) POCT PREG TEST DATE (test code = 3576) Lab Interpretation (test code = Normal 93407-6) [facility] GLUCOSE (AUTOMATED)2022-05-30 21:57:09 Test Item Value Reference Range Interpretation Comments POCT GLU (test code = 7185361737) 179 mg/dL 70-110 H Lab Interpretation (test code = Abnormal 08425-0) [facility] GLUCOSE(AGE >30DAYS)2022-05-30 21:56:00 Test Item Value Reference Range Interpretation Comments POCT Glu (age>30days) (test code = 179 mg/dL 70-110 A 3342) Lab Interpretation (test code = Abnormal 77429-4) [facility] VENOUS BLOOD [id number] 18:25:59 Test Item Value Reference Range Interpretation Comments PH (test code = 7.32-7.42 1190269401) PCO2 JAIDA (test code = See_Comment H [Auto mated message] 7059743841) The system [employer] generated this result transmitted ref erence range: 41 - 51 mmHg. The reference r junito was not used to interpret this result as normal/abnor mal. PO2 JAIDA (test code = See_Comment [Autom ated message] 8976364909) The system [employer] generated this result transmitted ref erence range: 25 - 40 mmHg. The reference r junito was not used to interpret this result as normal/abnor mal. HCO3 JAIDA (test code = See_Comment H [Auto mated message] 0687513500) The system [employer] generated this result transmitted ref erence range: 24 - 28 mEq/L. The reference r junito was not used to interpret this result as normal/abnor mal. AC VBE(BEAKER) (test mEq/L code = 0858028495) Lab Interpretation (test Abnormal code = 62903-0) [facility] [id number] 18:24:00 Test Item Value Reference Range Interpretation Comments POCT PREG (test code = 1605) negative On board controls acceptable with yes C Line (test code = 3574) POCT PREG LOT # (test code = 3575) [id number] POCT PREG TEST DATE (test 10/01/2023 code = 3576) Lab Interpretation (test code = Normal 55505-7) [facility] GLUCOSE (AUTOMATED)2022-05-30 18:08:37 Test Item Value Reference Range Interpretation Comments POCT GLU (test code = 3942374981) 338 mg/dL 70-110 H Lab Interpretation (test code = Abnormal 44213-4) [facility] PELVIC (TRANSVAGINAL ONLY)2018-03-16 14:02:32CLINICAL INDICATION: R10.2 Pelvic and perineal painTECHNIQUE:Real-time and doppler transvaginal ultrasound evaluation of the pelvis was performed on the [employer].Comparison study: No prior study.FINDINGS:Uterus: 8.2 x 3.9 [...] left ovarian cyst.2. No other significant findings.POCT-GLUCOSE [id number] 10:41:00 Test Item Value Reference Range Interpretation Comments POC-GLUCOSE METER 230 mg/dL 70-110 H TESTED AT [facility] [address] ([facility]) (test code [employer] [facility] = 1538) [place] [address] POCT-GLUCOSE [id number] 08:32:00 Test Item Value Reference Range Interpretation Comments POC-GLUCOSE METER 70 mg/dL 70-110 TESTED AT [facility] [address] ([facility]) (test code = [employer] [facility] 1538) [place] [address] POCT-GLUCOSE [id number] 05:13:00 Test Item Value Reference Range Interpretation Comments POC-GLUCOSE METER 152 mg/dL 70-110 H TESTED AT [facility] [address] ([facility]) (test code [employer] [facility] = 1538) [place] [address] POCT-GLUCOSE [id number] 04:14:00 Test Item Value Reference Range Interpretation Comments POC-GLUCOSE METER 55 mg/dL 70-110 L TESTED AT [facility] [address] ([facility]) (test code = [employer] [facility] 1538) [place] [address] POCT-GLUCOSE [id number] 20:37:00 Test Item Value Reference Range Interpretation Comments POC-GLUCOSE METER 204 mg/dL 70-110 H TESTED AT [facility] [address] ([facility]) (test code [employer] [facility] = 1538) [place] [address] POCT-GLUCOSE [id number] 19:01:00 Test Item Value Reference Range Interpretation Comments POC-GLUCOSE METER 88 mg/dL 70-110 TESTED AT [facility] [address] [facility] (test code = [employer] [facility] 1538) [place] [address] POCT-GLUCOSE [id number] 17:27:00 Test Item Value Reference Range Interpretation Comments POC-GLUCOSE METER 253 mg/dL 70-110 H TESTED AT [facility] [address] ([facility]) (test code [employer] [facility] = 1538) [place] [address] POCT-GLUCOSE [id number] 15:36:00 Test Item Value Reference Range Interpretation Comments POC-GLUCOSE METER 366 mg/dL 70-110 H TESTED AT [facility] [address] (BEAKER) (test code [facility] = 1538) [place] [address] POCT-GLUCOSE [id number] 11:51:00 Test Item Value Reference Range Interpretation Comments POC-GLUCOSE METER 194 mg/dL 70-110 H TESTED AT [facility] [address] (BEAKER) (test code [facility] = 1538) [place] [address] POCT-GLUCOSE [id number] 10:19:00 Test Item Value Reference Range Interpretation Comments POC-GLUCOSE METER 147 mg/dL 70-110 H TESTED AT [facility] [address] (BEAKER) (test code [facility] = 1538) [place] [address] BASIC METABOLIC [id number] 09:23:00 Test Item Value Reference Range Interpretation [...] NOT APPLICABLE FOR DIALYSIS PATIEN TS. POCT-GLUCOSE [id number] 08:02:00 Test Item Value Reference Range Interpretation Comments POC-GLUCOSE METER 161 mg/dL 70-110 H TESTED AT [facility] [address] (BEAKER) (test code [facility] = 1538) [place] [address] POCT-GLUCOSE [id number] 07:03:00 Test Item Value Reference Range Interpretation Comments POC-GLUCOSE METER 151 mg/dL 70-110 H TESTED AT [facility] [address] (BEAKER) (test code [facility] = 1538) [place] [address] POCT-GLUCOSE [id number] 05:08:00 Test Item Value Reference Range Interpretation Comments POC-GLUCOSE METER 158 mg/dL 70-110 H TESTED AT [facility] [address] (BEAKER) (test code [facility] = 1538) [place] [address] BASIC METABOLIC [id number] 04:51:00 Test Item Value Reference Range Interpretation [...] NOT APPLICABLE FOR DIALYSIS PATIEN TS. POCT-GLUCOSE [id number] 03:03:00 Test Item Value Reference Range Interpretation Comments POC-GLUCOSE METER 153 mg/dL 70-110 H TESTED AT [facility] [address] (BEAKER) (test code [facility] = 1538) [place] [address] POCT-GLUCOSE [id number] 02:09:00 Test Item Value Reference Range Interpretation Comments POC-GLUCOSE METER 159 mg/dL 70-110 H TESTED AT [facility] [address] (BEAKER) (test code [facility] = 1538) [place] [address] POCT-GLUCOSE [id number] 01:08:00 Test Item Value Reference Range Interpretation Comments POC-GLUCOSE METER 174 mg/dL 70-110 H TESTED AT [facility] [address] (BEAKER) (test code [facility] = 1538) [place] [address] BASIC METABOLIC [id number] 00:38:00 Test Item Value Reference Range Interpretation [...] NOT APPLICABLE FOR DIALYSIS PATIEN TS. POCT-GLUCOSE [id number] 00:37:00 Test Item Value Reference Range Interpretation Comments POC-GLUCOSE METER 198 mg/dL 70-110 H TESTED AT [facility] [address] (BEAKER) (test code [facility] = 1538) [place] [address] POCT-GLUCOSE [id number] 00:14:00 Test Item Value Reference Range Interpretation Comments POC-GLUCOSE METER 162 mg/dL 70-110 H TESTED AT [facility] [address] (BEAKER) (test code [facility] = 1538) [place] [address] POCT-GLUCOSE [id number] 23:39:00 Test Item Value Reference Range Interpretation Comments POC-GLUCOSE METER 149 mg/dL 70-110 H TESTED AT [facility] [address] (BEAKER) (test code [facility] = 1538) [place] [address] POCT-GLUCOSE [id number] 23:10:00 Test Item Value Reference Range Interpretation Comments POC-GLUCOSE METER 134 mg/dL 70-110 H TESTED AT [facility] [address] (BEAKER) (test code [facility] = 1538) [place] [address] POCT-GLUCOSE [id number] 22:41:00 Test Item Value Reference Range Interpretation Comments POC-GLUCOSE METER 112 mg/dL 70-110 H TESTED AT [facility] [address] (BEAKER) (test code [facility] = 1538) [place] [address] POCT-GLUCOSE [id number] 21:59:00 Test Item Value Reference Range Interpretation Comments POC-GLUCOSE METER 95 mg/dL 70-110 TESTED AT [facility] [address] (BEAKER) (test code = [facility] [place] [address] POCT-GLUCOSE [id number] 21:39:00 Test Item Value Reference Range Interpretation Comments POC-GLUCOSE METER 110 mg/dL 70-110 TESTED AT [facility] [address] (BEAKER) (test code [facility] = 1538) [place] [address] POCT-GLUCOSE [id number] 21:07:00 Test Item Value Reference Range Interpretation Comments POC-GLUCOSE METER 114 mg/dL 70-110 H TESTED AT [facility] [address] (BEAKER) (test code [facility] = 1538) [place] [address] BASIC METABOLIC [id number] 20:47:00 Test Item Value Reference Range Interpretation [...] NOT APPLICABLE FOR DIALYSIS PATIEN TS. POCT-GLUCOSE [id number] 20:17:00 Test Item Value Reference Range Interpretation Comments POC-GLUCOSE METER 176 mg/dL 70-110 H TESTED AT [facility] [address] (BEAKER) (test code [facility] = 1538) [place] [address] [id number] 19:09:00 Test Item Value Reference Range Interpretation Comments GLUCOSE RANDOM (BEAKER) (test code 230 mg/dL 70-110 H = 652) If last glucose was less than 500, may do bedside glucose instead of serum glucose.POCT-GLUCOSE [id number] 18:53:00 Test Item Value Reference Range Interpretation Comments POC-GLUCOSE METER 212 mg/dL 70-110 H TESTED AT [facility] [address] (BEAKER) (test code [facility] = 1538) [place] [address] POCT-GLUCOSE [id number] 17:14:00 Test Item Value Reference Range Interpretation Comments POC-GLUCOSE METER 145 mg/dL 70-110 H TESTED AT [facility] [address] (BEAKER) (test code [facility] = 1538) [place] [address] BASIC METABOLIC [id number] 16:51:00 Test Item Value Reference Range Interpretation [...] may do bedside glucose instead of serum glucose.[id number] 16:47:00 Test Item Value Reference Range Interpretation Comments GLUCOSE RANDOM (BEAKER) (test code 126 mg/dL 70-110 H = 652) If last glucose was less than 500, may do bedside glucose instead of serum glucose.POCT-GLUCOSE [id number] 16:04:00 Test Item Value Reference Range Interpretation Comments POC-GLUCOSE METER 119 mg/dL 70-110 H TESTED AT [facility] [address] (BEAKER) (test code [facility] = 1538) [place] [address] [id number] 14:30:00 Test Item Value Reference Range Interpretation Comments POTASSIUM (BEAKER) (test code = 3.9 meq/L 3.5-5.5 379) If last glucose was less than 500, may do bedside glucose instead of serum glucose.[id number] 14:30:00 Test Item Value Reference Range Interpretation Comments GLUCOSE RANDOM (BEAKER) (test code 190 mg/dL 70-110 H = 652) If last glucose was less than 500, may do bedside glucose instead of serum glucose.POCT-GLUCOSE [id number] 14:05:00 Test Item Value Reference Range Interpretation Comments POC-GLUCOSE METER 194 mg/dL 70-110 H TESTED AT [facility] [address] (BEAKER) (test code [facility] = 1538) [place] [address] POCT-GLUCOSE [id number] 13:15:00 Test Item Value Reference Range Interpretation Comments POC-GLUCOSE METER 229 mg/dL 70-110 H TESTED AT [facility] [address] (BEAKER) (test code [facility] = 1538) [place] [address] BASIC METABOLIC [id number] 12:44:00 Test Item Value Reference Range Interpretation [...] may do bedside glucose instead of serum glucose.[id number] 12:43:00 Test Item Value Reference Range Interpretation Comments GLUCOSE RANDOM (BEAKER) (test code 258 mg/dL 70-110 H = 652) If last glucose was less than 500, may do bedside glucose instead of serum glucose.POCT-GLUCOSE [id number] 12:03:00 Test Item Value Reference Range Interpretation Comments POC-GLUCOSE METER 238 mg/dL 70-110 H TESTED AT [facility] [address] ([facility]) (test code [facility] = 1538) [place] [address] POCT-GLUCOSE [id number] 11:05:00 Test Item Value Reference Range Interpretation Comments POC-GLUCOSE METER 261 mg/dL 70-110 H TESTED AT [facility] [address] ([facility]) (test code [facility] = 1538) [place] [address] HEMOGLOBIN [id number] 10:07:00 Test Item Value Reference Range Interpretation Comments HEMOGLOBIN A1C (BEAKER) (test code = > % 4.3-6.1 H 368) [id number] 10:00:00 Test Item Value Reference Range Interpretation Comments GLUCOSE RANDOM (BEAKER) (test code 441 mg/dL 70-110 HH = 652) If last glucose was less than 500, may do bedside glucose instead of serum glucose.[id number] 09:55:00 Test Item Value Reference Range Interpretation Comments POTASSIUM (BEAKER) (test code = 4.1 meq/L 3.5-5.5 379) If last glucose was less than 500, may do bedside glucose instead of serum glucose.POCT-GLUCOSE [id number] 09:18:00 Test Item Value Reference Range Interpretation Comments POC-GLUCOSE METER > mg/dL 70-110 HH OUTSIDE ME ASURING (BEAKER) (test code RANGETES PRACHI AT [facility] [address] = 1538) [facility] [address] [id number] 09:15:00 Test Item Value Reference Range Interpretation Comments GLUCOSE RANDOM (BEAKER) (test code 585 mg/dL 70-110 HH = 652) If last glucose was less than 500, may do bedside glucose instead of serum glucose.COMPREHENSIVE METABOLIC [id number] 08:30:00 Test Item Value Reference Range Interpretation [...] PATIEN TS. CBC W/PLT COUNT & AUTO [id number] 08:29:00 Test Item Value Reference Range Interpretation [...] K/ L 0.00-0.20 (test code = 417) [id number] 08:25:00 Test Item Value Reference Range Interpretation Comments PHOSPHORUS (BEAKER) (test code = 4.0 mg/dL 2.5-4.5 604) [id number] 08:25:00 Test Item Value Reference Range Interpretation Comments MAGNESIUM (BEAKER) (test code = 2.0 mg/dL 1.5-3.0 627) SCREEN, [id number] 08:16:00 Test Item Value Reference Range Interpretation Comments TEST URINE (BEAKER) (test Negative code = 583) URINALYSIS W/ [id number] 08:16:00 Test Item Value Reference Range Interpretation [...] = 1574) Rare SOURCE(BEAKER) (test code = 2052) KETONE, [id number] 08:09:00 Test Item Value Reference Range Interpretation Comments KETONES, BLOOD (BEAKER) (test code 6.1 mmol/L <0.4 H = 1103) PH, [id number] 08:08:00 Test Item Value Reference Range Interpretation Comments PH VENOUS (BEAKER) (test code = 701) 7.18 7.32-7.42 LL BLOOD [id number] 13:00:00 Test Item Value Reference Range Interpretation Comments CULTURE (BEAKER) (test No growth in 5 days code = 1095) BLOOD [id number] 13:00:00 Test Item Value Reference Range Interpretation Comments CULTURE (BEAKER) (test No growth in 5 days code = 1095) POCT-GLUCOSE [id number] 17:12:00 Test Item Value Reference Range Interpretation Comments POC-GLUCOSE METER 136 mg/dL 70-110 H TESTED AT [facility] [address] (BEAKER) (test code [facility] = 1538) [place] [address] POCT-GLUCOSE [id number] 16:37:00 Test Item Value Reference Range Interpretation Comments POC-GLUCOSE METER 45 mg/dL 70-110 L TESTED AT [facility] [address] (BEAKER) (test code = [facility] 1538) [place] [address] POCT-GLUCOSE [id number] 11:32:00 Test Item Value Reference Range Interpretation Comments POC-GLUCOSE METER 98 mg/dL 70-110 TESTED AT [facility] [address] (BEAKER) (test code = [facility] 1538) [place] [address] POCT-GLUCOSE [id number] 06:45:00 Test Item Value Reference Range Interpretation Comments POC-GLUCOSE METER 85 mg/dL 70-110 TESTED AT [facility] [address] (BEAKER) (test code = [facility] 1538) [place] [address] [id number] 06:25:00 Test Item Value Reference Range Interpretation Comments PHOSPHORUS (BEAKER) (test code = 2.4 mg/dL 2.5-4.5 L 604) [id number] 06:25:00 Test Item Value Reference Range Interpretation Comments MAGNESIUM (BEAKER) (test code = 2.4 mg/dL 1.5-3.0 627) BASIC METABOLIC [id number] 06:25:00 Test Item Value Reference Range Interpretation [...] PATIEN TS. CBC W/PLT COUNT & AUTO [id number] 05:58:00 Test Item Value Reference Range Interpretation [...] L 0.00-0.20 (test code = 417) POCT-GLUCOSE [id number] 05:38:00 Test Item Value Reference Range Interpretation Comments POC-GLUCOSE METER 102 mg/dL 70-110 TESTED AT [facility] [address] (BEAKER) (test code [facility] = 1538) [place] [address] POCT-GLUCOSE [id number] 03:29:00 Test Item Value Reference Range Interpretation Comments POC-GLUCOSE METER 163 mg/dL 70-110 H TESTED AT [facility] [address] (BEAKER) (test code [facility] = 1538) [place] [address] POCT-GLUCOSE [id number] 03:29:00 Test Item Value Reference Range Interpretation Comments POC-GLUCOSE METER 155 mg/dL 70-110 H TESTED AT [facility] [address] (BEAKER) (test code [facility] = 1538) [place] [address] BASIC METABOLIC [id number] 01:42:00 Test Item Value Reference Range Interpretation [...] S NOT APPLICABLE FOR DIALYSIS PATIEN TS. [id number] 01:39:00 Test Item Value Reference Range Interpretation Comments PHOSPHORUS (BEAKER) (test code = 2.1 mg/dL 2.5-4.5 L 604) [id number] 01:39:00 Test Item Value Reference Range Interpretation Comments MAGNESIUM (BEAKER) (test code = 2.0 mg/dL 1.5-3.0 627) POCT-GLUCOSE [id number] 01:19:00 Test Item Value Reference Range Interpretation Comments POC-GLUCOSE METER 152 mg/dL 70-110 H TESTED AT [facility] [address] (BEAKER) (test code [employer] [facility] = 1538) [place] [address] POCT-GLUCOSE [id number] 01:07:00 Test Item Value Reference Range Interpretation Comments POC-GLUCOSE METER 145 mg/dL 70-[address] [place] [address] [address] (BEAKER) (test code [employer] [facility] = 1538) [place] [address] POCT-GLUCOSE [id number] 01:07:00 Test Item Value Reference Range Interpretation Comments POC-GLUCOSE METER 165 mg/dL 70-[address] [place] [address] [address] (BEAKER) (test code [employer] [facility] = 1538) [place] [address] POCT-GLUCOSE [id number] 01:07:00 Test Item Value Reference Range Interpretation Comments POC-GLUCOSE METER 163 mg/dL 70-110 H TESTED AT [facility] [address] (BEAKER) (test code [employer] [facility] = 1538) [place] [address] BASIC METABOLIC [id number] 20:59:00 Test Item Value Reference Range Interpretation [...] S NOT APPLICABLE FOR DIALYSIS PATIEN TS. [id number] 20:58:00 Test Item Value Reference Range Interpretation Comments MAGNESIUM (BEAKER) 1.8 mg/dL 1.5-3.0 Specimen slightly (test code = 627) hemolyzed [id number] 20:58:00 Test Item Value Reference Range Interpretation Comments PHOSPHORUS (BEAKER) 2.2 mg/dL 2.5-4.5 L Specimen slightly (test code = 604) hemolyzed POCT-GLUCOSE [id number] 18:02:00 Test Item Value Reference Range Interpretation Comments POC-GLUCOSE METER 176 mg/dL 70-110 H TESTED AT [facility] [address] (BEAKER) (test code [facility] = 1538) [place] [address] [id number] 16:46:00 Test Item Value Reference Range Interpretation Comments MAGNESIUM (BEAKER) 2.1 mg/dL 1.5-3.0 Specimen slightly (test code = 627) hemolyzed [id number] 16:46:00 Test Item Value Reference Range Interpretation Comments PHOSPHORUS (BEAKER) 2.1 mg/dL 2.5-4.5 L Specimen slightly (test code = 604) hemolyzed BASIC METABOLIC [id number] 16:46:00 Test Item Value Reference Range Interpretation [...] NOT APPLICABLE FOR DIALYSIS PATIEN TS. CALCIUM, [id number] 16:21:00 Test Item Value Reference Range Interpretation Comments CALCIUM IONIZED (BEAKER) (test 1.13 mmol/L 1.12-1.27 code = 698) PH, BLOOD (BEAKER) (test code = 7.30 1810) Check serum Ionized Calcium level after 4 hours after IV Calcium replacement. POCT-GLUCOSE [id number] 16:12:00 Test Item Value Reference Range Interpretation Comments POC-GLUCOSE METER 191 mg/dL 70-110 H TESTED AT [facility] [address] (BEAKER) (test code [employer] [facility] = 1538) [place] [address] POCT-GLUCOSE [id number] 15:20:00 Test Item Value Reference Range Interpretation Comments POC-GLUCOSE METER 181 mg/dL 70-110 H TESTED AT [facility] [address] (BEAKER) (test code [employer] [facility] = 1538) [place] [address] POCT-GLUCOSE [id number] 14:15:00 Test Item Value Reference Range Interpretation Comments POC-GLUCOSE METER 169 mg/dL 70-110 H TESTED AT [facility] [address] (BEAKER) (test code [facility] = 1538) [place] [address] BASIC METABOLIC [id number] 13:44:00 Test Item Value Reference Range Interpretation [...] NOT APPLICABLE FOR DIALYSIS PATIEN TS. POCT-GLUCOSE [id number] 13:24:00 Test Item Value Reference Range Interpretation Comments POC-GLUCOSE METER 157 mg/dL 70-110 H TESTED AT [facility] [address] (BEAKER) (test code [facility] = 1538) [place] [address] POCT-GLUCOSE [id number] 12:34:00 Test Item Value Reference Range Interpretation Comments POC-GLUCOSE METER 131 mg/dL 70-110 H TESTED AT [facility] [address] (BEAKER) (test code [facility] = 1538) [place] [address] POCT-GLUCOSE [id number] 11:39:00 Test Item Value Reference Range Interpretation Comments POC-GLUCOSE METER 160 mg/dL 70-110 H TESTED AT [facility] [address] (BEAKER) (test code [facility] = 1538) [place] [address] [id number] 11:13:00 Test Item Value Reference Range Interpretation Comments PROCALCITONIN (BEAKER) (test code = < ng/mL <0.05 3036) SEPSIS RISK (ng/mL)Low: 0.05-0.50Intermediate: 0.51-2.00High: >=2.01POCT- GLUCOSE [id number] 10:40:00 Test Item Value Reference Range Interpretation Comments POC-GLUCOSE METER 202 mg/dL 70-110 H TESTED AT [facility] [address] (BEAKER) (test code [facility] = 1538) [place] [address] [id number] 10:04:00 Test Item Value Reference Range Interpretation Comments PHOSPHORUS (BEAKER) 1.4 mg/dL 2.5-4.5 LL Specimen slightly (test code = 604) hemolyzed BASIC METABOLIC [id number] 10:04:00 Test Item Value Reference Range Interpretation [...] S NOT APPLICABLE FOR DIALYSIS PATIEN TS. [id number] 10:02:00 Test Item Value Reference Range Interpretation Comments MAGNESIUM (BEAKER) 1.8 mg/dL 1.5-3.0 Specimen slightly (test code = 627) hemolyzed POCT-GLUCOSE [id number] 09:36:00 Test Item Value Reference Range Interpretation Comments POC-GLUCOSE METER 212 mg/dL 70-110 H TESTED AT [facility] [address] (BEAKER) (test code [facility] = 1538) [place] [address] POCT-GLUCOSE [id number] 08:43:00 Test Item Value Reference Range Interpretation Comments POC-GLUCOSE METER 268 mg/dL 70-110 H TESTED AT [facility] [address] ([facility]) (test code [facility] = 1538) [place] [address] [id number] 07:47:00 Test Item Value Reference Range Interpretation Comments POTASSIUM (BEAKER) (test code = 4.0 meq/L 3.5-5.5 379) If last glucose was less than 500, may do bedside glucose instead of serum glucose.[id number] 07:47:00 Test Item Value Reference Range Interpretation Comments GLUCOSE RANDOM (BEAKER) (test code 370 mg/dL 70-110 H = 652) If last glucose was less than 500, may do bedside glucose instead of serum glucose.POCT-GLUCOSE [id number] 07:31:00 Test Item Value Reference Range Interpretation Comments POC-GLUCOSE METER 328 mg/dL 70-110 H Notified R Evita DAVIS/TESTED AT ([facility]) (test code [facility] [address] [place] [address] = 1538) [facility] [place] [address] POCT-GLUCOSE [id number] 07:31:00 Test Item Value Reference Range Interpretation Comments POC-GLUCOSE METER 414 mg/dL 70-110 HH TESTED AT [address] ([facility]) (test code [facility] = 1538) [place] [address] [id number] 06:57:00 Test Item Value Reference Range Interpretation Comments POTASSIUM (BEAKER) (test code = 4.5 meq/L 3.5-5.5 379) [id number] 06:51:00 Test Item Value Reference Range Interpretation Comments GLUCOSE RANDOM (BEAKER) (test code 523 mg/dL 70-110 HH = 652) If last glucose was less than 500, may do bedside glucose instead of serum glucose.URINALYSIS W/ REFLEX URINE [id number] 06:29:00 Test Item Value Reference Range Interpretation [...] (test code = 2795) RAPID INFLUENZA A&B [id number] 06:13:00 Test Item Value Reference Range Interpretation Comments RAPID INFLUENZA A AG (BEAKER) (test Negative Negative code = 1622) RAPID INFLUENZA B AG (BEAKER) (test Negative Negative code = 1623) SCREEN, [id number] 05:58:00 Test Item Value Reference Range Interpretation Comments TEST URINE (BEAKER) (test Negative code = 583) RAD, CHEST, 1 VIEW, NON [id number] 05:52:00Reason for exam:->EMESISReason for exam:->BLOOD SUGAR PROBLEMShould this be performed at the bedside?- >YesIs the patient ?->NoFINAL REPORT Comparison examination: 04/07/2017 No pneumothorax, focal pulmonary consolidation, or significant pleural effusion. Normal cardiomediastinal contours. Normal skeleton and soft tissues. Impression: No acute abnormality. Signed: Joesph Lopez Verified Date/Time: 05/18/2017 05:52:18 Reading Location: [address] Reading Room HEMOGLOBIN [id number] 05:49:00 Test Item Value Reference Range Interpretation Comments HEMOGLOBIN A1C (BEAKER) (test code = 13.2 % 4.3-6.1 H 368) BASIC METABOLIC [id number] 05:28:00 Test Item Value Reference Range Interpretation [...] bedside glucose instead of serum glucose.HEPATIC FUNCTION [id number] 05:27:00 Test Item Value Reference Range Interpretation [...] glucose instead of serum glucose.Specimen slightlylipemicBLOOD GAS, [id number] 05:04:00 Test Item Value Reference Range Interpretation [...] (test code = 1819) 21.0 % KETONE, [id number] 05:03:00 Test Item Value Reference Range Interpretation Comments KETONES, BLOOD (BEAKER) (test code 5.8 mmol/L <0.4 H = 1103) CBC W/PLT COUNT & AUTO [id number] 05:02:00 Test Item Value Reference Range Interpretation [...] L 0.00-0.20 (test code = 417) POCT-GLUCOSE [id number] 04:49:00 Test Item Value Reference Range Interpretation Comments POC-GLUCOSE METER > mg/dL 70-110 HH OUTSIDE ME ASURING (BEAKER) (test code [facility]AN[facility] PRACHI AT [facility] [address] = 1538) [facility] [address] BLOOD [id number] 00:00:00 Test Item Value Reference Range Interpretation Comments CULTURE (BEAKER) (test No growth in 5 days code = 1095) BLOOD [id number] 00:00:00 Test Item Value Reference Range Interpretation Comments CULTURE (BEAKER) (test No growth in 5 days code = 1095) URINE [id number] 15:21:00 Test Item Value Reference Range Interpretation Comments CULTURE (BEAKER) (test >100,000 col/mL skin code = 1095) christophe POCT-GLUCOSE [id number] 14:37:00 Test Item Value Reference Range Interpretation Comments POC-GLUCOSE METER 326 mg/dL 70-110 H TESTED AT [facility] 6720 (BEAKER) (test code = SHAR[facility] 1538) [address] POCT-GLUCOSE [id number] 13:26:00 Test Item Value Reference Range Interpretation Comments POC-GLUCOSE METER 331 mg/dL 70-110 H TESTED AT [facility] 6720 (BEAKER) (test code = SH[facility] [place] 1538) [address] CBC W/PLT COUNT & AUTO [id number] 11:34:00 Test Item Value Reference Range Interpretation [...] COUNTED (BEAKER) (test code = 1351) POCT-GLUCOSE [id number] 11:18:00 Test Item Value Reference Range Interpretation Comments POC-GLUCOSE METER 349 mg/dL 70-110 H TESTED AT [place] [address] (BEAKER) (test code = [facility] 1538) [address] POCT-GLUCOSE [id number] 09:34:00 Test Item Value Reference Range Interpretation Comments POC-GLUCOSE METER 61 mg/dL 70-110 L TESTED AT [place] [address] (BEAKER) (test code = [facility] [address] 1538) POCT-GLUCOSE [id number] 08:48:00 Test Item Value Reference Range Interpretation Comments POC-GLUCOSE METER 79 mg/dL 70-110 TESTED AT [place] [address] (BEAKER) (test code = [facility] [address] 1538) BASIC METABOLIC [id number] 06:12:00 Test Item Value Reference Range Interpretation [...] mg/dL 8.4-10.2 (test code = 697) EGFR ([facility]) (test 89 mL/min/1.73 ESTIMA PRACHI GFR IS code = 1092) sq m NOT ACCURATE CREATININE CLEARANCE IN PREDICTING GLOMERULAR FILTRATION RATE . ESTIMATED GFR I S NOT APPLICABLE FOR DIALYSIS PATIEN TS. KETONE, [id number] 05:43:00 Test Item Value Reference Range Interpretation Comments KETONES, BLOOD ([facility]) (test code 0.1 mmol/L <0.4 = 1103) POCT-GLUCOSE [id number] 05:39:00 Test Item Value Reference Range Interpretation Comments POC-GLUCOSE METER 366 mg/dL 70-110 H TESTED AT [place] [address] ([facility]) (test code = [employer] [place] 1538) [address] POCT-GLUCOSE [id number] 22:32:00 Test Item Value Reference Range Interpretation Comments POC-GLUCOSE METER 302 mg/dL 70-110 H TESTED AT [place] [address] ([facility]) (test code = [employer] [facility] 1538) [address] POCT-GLUCOSE [id number] 19:15:00 Test Item Value Reference Range Interpretation Comments POC-GLUCOSE METER 273 mg/dL 70-110 H TESTED AT [place] [address] ([facility]) (test code = [employer] [place] 1538) [address] POCT-GLUCOSE [id number] 17:49:00 Test Item Value Reference Range Interpretation Comments POC-GLUCOSE METER 174 mg/dL 70-110 H TESTED AT [place] [address] ([facility]) (test code = [employer] [place] 1538) [address] POCT-GLUCOSE [id number] 17:02:00 Test Item Value Reference Range Interpretation Comments POC-GLUCOSE METER 171 mg/dL 70-110 H TESTED AT [place] [address] ([facility]) (test code = [employer] [place] 1538) [address] POCT-GLUCOSE [id number] 15:17:00 Test Item Value Reference Range Interpretation Comments POC-GLUCOSE METER 135 mg/dL 70-110 H TESTED AT [place] [address] ([facility]) (test code = [employer] [place] 1538) [address] POCT-GLUCOSE [id number] 13:10:00 Test Item Value Reference Range Interpretation Comments POC-GLUCOSE METER 61 mg/dL 70-110 L TESTED AT [facility] 6720 (BEAKER) (test code = [place] [address] 1538) POCT-GLUCOSE [id number] 11:21:00 Test Item Value Reference Range Interpretation Comments POC-GLUCOSE METER 57 mg/dL 70-110 L Notified R N MD/TESTED AT (BEAKER) (test code = [place] [id number] [place] 1538) [facility] [address] POCT-GLUCOSE [id number] 08:02:00 Test Item Value Reference Range Interpretation Comments POC-GLUCOSE METER 68 mg/dL 70-110 L Notified R N MD/TESTED AT (BEAKER) (test code = [facility] 67[address] [facility] 1538) [facility] 7703 0 CBC W/PLT COUNT & AUTO [id number] 08:02:00 Test Item Value Reference Range Interpretation [...] PERCENT (BEAKER) (test code = 2801) POCT-GLUCOSE [id number] 06:58:00 Test Item Value Reference Range Interpretation Comments POC-GLUCOSE METER 95 mg/dL 70-110 TESTED AT [place] [address] ([facility]) (test code = [facility] [address] 1538) POCT-GLUCOSE [id number] 06:17:00 Test Item Value Reference Range Interpretation Comments POC-GLUCOSE METER 150 mg/dL 70-110 H TESTED AT [place] [address] ([facility]) (test code = [facility] 1538) [address] POCT-GLUCOSE [id number] 05:18:00 Test Item Value Reference Range Interpretation Comments POC-GLUCOSE METER 101 mg/dL 70-110 TESTED AT [place] [address] ([facility]) (test code = [facility] 1538) [address] POCT-GLUCOSE [id number] 05:07:00 Test Item Value Reference Range Interpretation Comments POC-GLUCOSE METER 119 mg/dL 70-110 H TESTED AT [place] [address] ([facility]) (test code = [facility] 1538) [address] BASIC METABOLIC [id number] 04:52:00 Test Item Value Reference Range Interpretation [...] NOT APPLICABLE FOR DIALYSIS PATIEN TS. POCT-GLUCOSE [id number] 04:05:00 Test Item Value Reference Range Interpretation Comments POC-GLUCOSE METER 48 mg/dL 70-110 L TESTED AT [place] [address] ([facility]) (test code = [facility] [address] 1538) POCT-GLUCOSE [id number] 02:30:00 Test Item Value Reference Range Interpretation Comments POC-GLUCOSE METER 181 mg/dL 70-110 H TESTED AT [place] [address] ([facility]) (test code = [facility] 1538) [address] POCT-GLUCOSE [id number] 02:10:00 Test Item Value Reference Range Interpretation Comments POC-GLUCOSE METER 37 mg/dL 70-110 LL Will Repea t Test/TESTED ([facility]) (test code = AT [address] 1538) [facility] [id number] POCT-GLUCOSE [id number] 01:07:00 Test Item Value Reference Range Interpretation Comments POC-GLUCOSE METER 87 mg/dL 70-110 TESTED AT [place] [address] ([facility]) (test code = [facility] [address] 1538) BASIC METABOLIC [id number] 00:44:00 Test Item Value Reference Range Interpretation [...] NOT APPLICABLE FOR DIALYSIS PATIEN TS. POCT-GLUCOSE [id number] 00:30:00 Test Item Value Reference Range Interpretation Comments POC-GLUCOSE METER 96 mg/dL 70-110 TESTED AT [place] [address] ([facility]) (test code = [facility] [address] 1538) POCT-GLUCOSE [id number] 23:54:00 Test Item Value Reference Range Interpretation Comments POC-GLUCOSE METER 91 mg/dL 70-110 TESTED AT [place] [address] ([facility]) (test code = [facility] [id number] 1538) POCT-GLUCOSE [id number] 23:12:00 Test Item Value Reference Range Interpretation Comments POC-GLUCOSE METER 48 mg/dL 70-110 L TESTED AT [place] [address] ([facility]) (test code = DIGNITY [facility] Dealised [facility] [id number] 1538) POCT-GLUCOSE [id number] 21:58:00 Test Item Value Reference Range Interpretation Comments POC-GLUCOSE METER 94 mg/dL 70-110 TESTED AT [place] [address] ([facility]) (test code = [facility] Dealised [facility] [id number] 1538) BASIC METABOLIC [id number] 21:08:00 Test Item Value Reference Range Interpretation [...] NOT APPLICABLE FOR DIALYSIS PATIEN TS. POCT-GLUCOSE [id number] 20:57:00 Test Item Value Reference Range Interpretation Comments POC-GLUCOSE METER 165 mg/dL 70-110 H TESTED AT [facility] 6720 (BEAKER) (test code = [place] 1538) [address] [id number] 20:55:00 Test Item Value Reference Range Interpretation Comments POTASSIUM (BEAKER) (test code = 3.6 meq/L 3.5-5.1 379) URINALYSIS W/ [id number] 20:40:00 Test Item Value Reference Range Interpretation [...] 516) SOURCE(BEAKER) (test code = 2795) POCT-GLUCOSE [id number] 19:59:00 Test Item Value Reference Range Interpretation Comments POC-GLUCOSE METER 282 mg/dL 70-110 H TESTED AT [facility] 6720 (BEAKER) (test code = SHARATH [place] [facility] 1538) [id number] POCT-GLUCOSE [id number] 19:02:00 Test Item Value Reference Range Interpretation Comments POC-GLUCOSE METER 374 mg/dL 70-110 H Notified R Evita DAVIS/TESTED (BEAKER) (test code = AT [facility] 6720 [facility] 1538) [facility] 7703 0 CBC W/PLT COUNT & AUTO [id number] 18:56:00 Test Item Value Reference Range Interpretation [...] PERCENT (BEAKER) (test code = 2801) POCT-GLUCOSE [id number] 18:03:00 Test Item Value Reference Range Interpretation Comments POC-GLUCOSE METER 294 mg/dL 70-110 H TESTED AT [facility] 6720 (BEAKER) (test code = SHARATH [place] [facility] 1538) [address] HEMOGLOBIN [id number] 17:45:00 Test Item Value Reference Range Interpretation Comments HEMOGLOBIN A1C (BEAKER) (test code = 12.6 % 4.3-6.1 H 368) RAD, CHEST, 1 VIEW, NON [id number] 17:20:00Reason for exam:->sobShould this be performed at [...] MDReport Verified Date/Time: 04/07/2017 17:20:50 Reading Location: [address] Radiology Reading Room TSH/FREE T4 IF [id number] 17:04:00 Test Item Value Reference Range Interpretation Comments THYROID STIMULATING HORMONE 0.95 uIU/mL 0.35-4.94 (BEAKER) (test code = 772) TROPONIN [id number] 16:51:00 Test Item Value Reference Range Interpretation [...] failure, acidosis, acute neurological disease, and persistent tachyarrhythmia.[id number] 16:45:00 Test Item Value Reference Range Interpretation Comments LIPASE (BEAKER) (test code = 749) 33 U/L 8-78 [id number] 16:45:00 Test Item Value Reference Range Interpretation Comments AMYLASE (BEAKER) (test code = 349) 66 U/L 25-125 BASIC METABOLIC [id number] 16:45:00 Test Item Value Reference Range Interpretation [...] DIALYSIS PATIEN TS. LACTIC ACID, VENOUS, WHOLE [id number] 16:45:00 Test Item Value Reference Range Interpretation Comments LACTATE BLOOD VENOUS (2) (BEAKER) 1.1 mmol/L 0.5-2.2 (test code = 2872) Effective 12/05/2015: Units/Reference Range ChangeNew: 0.5-2.2 mmol/L Previous: 5- 20 mg/dLKETONE, [id number] 16:41:00 Test Item Value Reference Range Interpretation Comments KETONES, BLOOD (BEAKER) (test code 2.1 mmol/L <0.4 H = 1103) BLOOD GAS, [id number] 16:27:00 Test Item Value Reference Range Interpretation [...] 37.0 C (test code = 1818) POCT-GLUCOSE [id number] 16:20:00 Test Item Value Reference Range Interpretation Comments POC-GLUCOSE METER 156 mg/dL 70-110 H TESTED AT [facility] 6720 (BEAKER) (test code = [place] 1538) [address] POCT-GLUCOSE [id number] 15:28:00 Test Item Value Reference Range Interpretation Comments POC-GLUCOSE METER 101 mg/dL 70-110 [facility] (BEAKER) (test code = [place] 1538) [address]
[2022-07-10 00:14] LABS: Urine Blood 1+ (Negative); Urine Glucose Trace (Negative); Urine Protein 2+ (Negative); Urine Specific Gravity >=1.030 (1.005-1.030); Urine pH 5.5 (5.0-7.0)
[2022-07-10] MEDS ORDERED: ONDANSETRON 4 MG/2 ML VIAL ONE ×3 (00:26→08:29)
[2022-07-10] MEDS ORDERED: MORPHINE 4 MG/ML SYR ONE (00:26)
[2022-07-10] MEDS ORDERED: NA CHLORIDE 0.9% 1,000 ML ONE (00:27)
[2022-07-10] MEDS ORDERED: FAMOTIDINE 20 MG/2 ML VIAL IV ONE (00:27)
[2022-07-10 00:36] LABS: Absolute Lymphocytes (CBC) 1.8 K/uL (0.7-4.9); Hematocrit 32.3 % (36.0-45.0); Lymphocytes % 13.1 % (15.3-44.8); MCV 81.4 fL (80-100); MPV 7.5 fL (7.6-11.3); RBC Red Blood Cell Count 3.97 M/uL (3.86-4.86)
[2022-07-10 00:40] LABS: Calcium Oxalate Crystals- Ur Few /HPF (None Seen); Urine Bacteria <20 /HPF (<20); Urine Mucus Slight /HPF (None Seen); Urine RBC 21-50 /HPF (None Seen); Urine WBC Clump Occasional /HPF (None Seen)
[2022-07-10 00:52] LABS: Albumin 2.8 g/dL (3.4-5.0); Bilirubin Total 0.3 mg/dL (0.2-1.0); Potassium 3.3 mmol/L (3.5-5.1); Protein, Total 7.1 g/dL (6.4-8.2)
[2022-07-10] MEDS ORDERED: CEFTRIAXONE 1000 MG/VIAL ONE (01:20)
--- NOTE | 2022-07-10 01:29 | ER ---
Nurse's Notes [facility] Name: Salome Santacruz Age: 22 yrs Sex: Female : 2000 Arrival Date: 07/09/2022 Time: 23:39 Bed 20 Private MD: Diagnosis: Acute cystitis-failed out patient treatment;Epigastric abdominal tenderness;Type 1 diabetes mellitus with hyperglycemia;Elevated white blood cell count;Gastroparesis;Hypokalemia Presentation: 07/09 23:44 Chief complaint: Patient states: "I have started vomiting. I was here a couple of days tw5 ago by EMS for body aches due to a bad UTI. I got put on new antibiotics but they are not helping. I am a type 1 diabetic and I have ketones in my urine.". Coronavirus screen: Vaccine status: Patient reports receiving the 2nd dose of the covid vaccine. Wizdee. Ebola Screen: Patient negative for fever greater than or equal to 101.5 degrees Fahrenheit, and additional compatible Ebola Virus Disease symptoms Patient denies exposure to infectious person. Patient denies travel to an Ebola-affected area in the 21 days before illness onset. Initial Sepsis Screen: Does the patient meet any 2 criteria? HR > 90 bpm. Does the patient have a suspected source of infection? No. Patient's initial sepsis screen is negative. Risk Assessment: Do you want to hurt yourself or someone else? Patient reports no desire to harm self or others. Onset of symptoms is unknown. 23:44 Acuity: BRIAN 3 tw5 23:44 Method Of Arrival: Ambulatory tw5 Triage Assessment: 23:46 General: Appears uncomfortable, ill, Behavior is calm, cooperative, appropriate for tw5 age. Pain: Complains of pain in "Whole body." Pain currently is 10 out of 10 on a pain scale. GI: Reports nausea, vomiting. 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 - Social history:: Smoking status: Patient denies any tobacco usage or history of. Screenin:47 Abuse screen: Denies threats or abuse. Denies injuries from another. Nutritional tw5 screening: No deficits noted. 07/10 02:27 Fall Risk None identified. kl 02:27 Tuberculosis screening: No symptoms or risk factors identified. kl Assessment: 00:10 General: Appears distressed, uncomfortable, ill, Behavior is cooperative, anxious. kl Pain: Complains of pain in abdomen. Neuro: No deficits noted. Cardiovascular: No deficits noted. Respiratory: No deficits noted. GI: Pt is actively vomiting bile, Reports lower abdominal pain, upper abdominal pain, intolerance of fluids, intolerance of food, nausea, vomiting. : No deficits noted. No signs and/or symptoms were reported regarding the genitourinary system. EENT: No deficits noted. No signs and/or symptoms were reported regarding the EENT system. Vital Signs: 07/09 23:44 BP 109 / 68; Pulse 96; Resp 18; Temp 98.2; Pulse Ox 100% ; Weight 63.05 kg; Height 5 tw5 ft. 4 in. (162.56 cm); Pain 10/10; 07/10 00:47 BP 111 / 73; Pulse 92; Resp 16; Pulse Ox 100% on R/A; kl 02:26 BP 109 / 64; Pulse 80; Resp 16; Pulse Ox 99% on R/A; kl 07/09 23:44 Body Mass Index 23.86 (63.05 kg, 162.56 cm) tw5 ED Course: 07/09 23:39 Patient arrived in ED. ja2 23:46 Triage completed. tw 23:46 Arm band placed on. tw5 07/10 00:06 Vania Marshall PA-C is PHCP. sb4 00:06 Dre Rice MD is Attending Physician. sb4 00:19 CBC with Diff Sent. kl 00:19 CMP Sent. kl 00:19 Lipase Sent. kl 00:19 Urine Microscopic Only Sent. kl 00:20 No provider procedures requiring assistance completed. Inserted saline lock: 20 gauge kl in left forearm, using aseptic technique. Blood collected. 00:44 Urine --Ancillary (enter results) Sent. kl 00:44 COVID-19/FLU A+B Sent. kl 00:44 CMP Sent. kl 00:44 Lipase Sent. kl 01:23 Bradley Carreon MD is Hospitalizing Provider. [facility] 02:27 Patient has correct armband on for positive identification. kl 02:27 Patient admitted, IV remains in place. kl Administered Medications: 00:20 Drug: Zofran (Ondansetron) 4 mg Route: IVP; Site: left forearm; kl 00:25 Drug: NS 0.9% 1000 ml Route: IV; Rate: 1 bolus; Site: left forearm; kl 01:00 Follow up: IV Status: Completed infusion; IV Intake: 1000ml kl 00:30 Drug: morphine 4 mg Route: IVP; Infused Over: 4 mins; Site: left forearm; kl 02:28 Follow up: Response: No adverse reaction; Marked relief of symptoms kl 00:35 Drug: Pepcid (famotidine) 20 mg Route: IVP; Site: left forearm; kl 02:27 Follow up: Response: No adverse reaction; Marked relief of symptoms kl 01:32 CANCELLED (Duplicate Order): NS 0.9% 1000 ml IV at 1 bolus Per protocol; 1000 mL bolus rajan 02:13 Drug: Zosyn (piperacillin-tazobactam) 3.375 grams Route: IVPB; Infused Over: 60 mins; kl Site: left forearm; 02:13 Drug: NS 0.9% with KCl 20 mEq/L 1000 ml Route: IV; Rate: 150 ml/hr; Site: left forearm; Medication: 02:27 VIS not applicable for this client. kl Intake: 01:00 IV: 1000ml; Total: 1000ml. Outcome: 01:29 Decision to Hospitalize by Provider. rajan 02:26 Admitted to ER Hold. Please see [facility] for further documentation. 02:26 Condition: improved 02:26 Discharge instructions given to patient, Instructed on the need for admit, Demonstrated understanding of instructions. 12:30 Patient left the ED. ko1 Signatures: Romina Kyle RN RN kl Anderson, Corey, MD MD cha Alexander, Jessica ja2 Wood, Tiffany 5 Michelle De La Rosa RN RN ko1 Brown, Vania, PA-C PA-C sb4
[2022-07-10 01:30] LABS: Urine Specific Gravity/Preg >1.030 (1.005-1.030)
--- NOTE | 2022-07-10 01:30 | EDPHYS ---
Physician Documentation [facility] Name: Salome Santacruz Age: 22 yrs Sex: Female : 2000 Arrival Date: 07/09/2022 Time: 23:39 Bed 20 Private MD: ED Physician Dre Rice HPI: 07/10 00:13 This 22 yrs old Female presents to ER via Ambulatory with complaints of sb4 Nausea/Vomiting, Fever, Pain All Over. 00:13 The patient presents to the emergency department with nausea, vomiting, abdominal pain. sb4 Onset: The symptoms/episode began/occurred today. The patient has been recently seen at the [facility] Emergency Department, this week. Patient is a 22-year-old female with type 1 diabetes who presented to the ED with complaints of abdominal pain, fever, nausea, vomiting, and pain all over. States that she began vomiting this evening and has not been able to stop. States her blood sugar at home was 250 and she had ketones in her urine. She has been taking all medications as prescribed. She was seen here yesterday and treated for UTI with ciprofloxacin.. 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 - Social history:: Smoking status: Patient denies any tobacco usage or history of. ROS: 07/10 00:13 Eyes: Negative for injury, pain, redness, and discharge, Cardiovascular: Negative for sb4 chest pain, palpitations, and edema, Respiratory: Negative for shortness of breath, cough, wheezing, and pleuritic chest pain, MS/Extremity: Negative for injury and deformity, Skin: Negative for injury, rash, and discoloration. Constitutional: Positive for fever, Negative for poor PO intake. Abdomen/GI: Positive for nausea and vomiting, Negative for diarrhea, abdominal distension, hematemesis. Exam: 00:13 Head/Face: Normocephalic, atraumatic. Cardiovascular: Regular rate and rhythm with a sb4 normal S1 and S2. Respiratory: Lungs have equal breath sounds bilaterally, clear to auscultation and percussion. No rales, rhonchi or wheezes noted. No increased work of breathing, no retractions or nasal flaring. Skin: Warm, dry with normal turgor. Normal color with no rashes, no lesions, and no evidence of cellulitis. MS/ Extremity: Pulses equal, no cyanosis. Neurovascular intact. Full, normal range of motion. 00:13 Abdomen/GI: Soft, non-tender, no distension. 00:13 Constitutional: The patient appears Diaphoretic, actively vomiting Vital Signs: 07/09 23:44 BP 109 / 68; Pulse 96; Resp 18; Temp 98.2; Pulse Ox 100% ; Weight 63.05 kg; Height 5 tw5 ft. 4 in. (162.56 cm); Pain 10/10; 07/10 00:47 BP 111 / 73; Pulse 92; Resp 16; Pulse Ox 100% on R/A; kl 02:26 BP 109 / 64; Pulse 80; Resp 16; Pulse Ox 99% on R/A; kl 12 23:44 Body Mass Index 23.86 (63.05 kg, 162.56 cm) tw5 MDM: 00:07 Patient medically screened. sb4 01:20 Transition of care: After a detail discussion of the patient's case, care is sb4 transferred to Dre Rice MD. 01:21 Data reviewed: vital signs, nurses notes, lab test result(s). sb4 07/10 00:07 Order name: CBC with Diff; Complete Time: 00:44 sb4 07/10 00:07 Order name: CMP; Complete Time: 00:56 sb4 07/10 00:07 Order name: Lipase; Complete Time: 00:57 sb4 07/10 00:07 Order name: Urine Microscopic Only; Complete Time: 00:41 sb4 07/10 00:13 Order name: COVID-19/FLU A+B; Complete Time: 03:06 sb4 07/10 00:14 Order name: Urine Dipstick-Ancillary; Complete Time: 00:31 EDMS 08 00:16 Order name: Urine --Ancillary (enter results); Complete Time: 01:31 ds4 08 05:05 Order name: Glucose, Ancillary Testing; Complete Time: 08:22 EDMS 08 05:06 Order name: CBC with Automated Diff; Complete Time: 08:22 EDMS 07/10 05:15 Order name: Lipase; Complete Time: 08:22 EDMS 07/10 05:34 Order name: Comprehensive Metabolic Panel; Complete Time: 08:22 EDMS 07/10 07:38 Order name: Glucose, Ancillary Testing; Complete Time: 08:22 EDMS 07/10 12:15 Order name: Glucose, Ancillary Testing; Complete Time: 15:06 EDMS 07/10 00:07 Order name: IV Saline Lock; Complete Time: 00:19 sb4 07/10 00:07 Order name: Labs collected and sent; Complete Time: 00:19 sb4 07/10 00:07 Order name: Urine Dipstick-Ancillary (obtain specimen); Complete Time: 00:44 sb4 07/10 00:07 Order name: Urine Test (obtain specimen); Complete Time: 00:44 sb4 07/10 01:22 Order name: US Abdomen Limited rajan 07/10 07:28 Order name: US; Complete Time: 08:22 EDMS 08 07:35 Order name: CT; Complete Time: 08:22 EDMS Administered Medications: 00:20 Drug: Zofran (Ondansetron) 4 mg Route: IVP; Site: left forearm; kl 00:25 Drug: NS 0.9% 1000 ml Route: IV; Rate: 1 bolus; Site: left forearm; kl 01:00 Follow up: IV Status: Completed infusion; IV Intake: 1000ml kl 00:30 Drug: morphine 4 mg Route: IVP; Infused Over: 4 mins; Site: left forearm; kl 02:28 Follow up: Response: No adverse reaction; Marked relief of symptoms kl 00:35 Drug: Pepcid (famotidine) 20 mg Route: IVP; Site: left forearm; kl 02:27 Follow up: Response: No adverse reaction; Marked relief of symptoms kl 01:32 CANCELLED (Duplicate Order): NS 0.9% 1000 ml IV at 1 bolus Per protocol; 1000 mL bolus rajan 02:13 Drug: Zosyn (piperacillin-tazobactam) 3.375 grams Route: IVPB; Infused Over: 60 mins; Site: left forearm; 02:13 Drug: NS 0.9% with KCl 20 mEq/L 1000 ml Route: IV; Rate: 150 ml/hr; Site: left forearm; Disposition: 01:31 Co-signature as Attending Physician, Dre Rice MD I agree with the assessment and rajan plan of care. Disposition Summary: 07/10/22 01:29 Hospitalization Ordered Hospitalization Status: Observation rajan Provider: Bradley Carreon cha Condition: Fair rajan Problem: new rajan Symptoms: have improved rajan Bed/Room Type: Standard rajan Location: Telemetry/MedSurg (observation)(07/10/22 10:53) kj1 Room Assignment: [facility](07/10/22 10:53) kj1 Diagnosis - Acute cystitis - failed out patient treatment rajan - Epigastric abdominal tenderness rajan - Type 1 diabetes mellitus with hyperglycemia rajan - Elevated white blood cell count rajan - Gastroparesis rajan - Hypokalemia rajan Forms: - Medication Reconciliation Form rajan - SBAR form rajan Signatures: Dispatcher [employer] EDMS Romina Kyle RN RN kl Anderson, Corey, MD MD cha Nieto, Roman, MD MD rn Attema, Lee, [employer] Crystal Rocha RN RN cg Jackson, Kandis kj1 Fouzia Alarcon tw5 Vania Marshall PA-C PA-C sb4 Corrections: (The following items were deleted from the chart) 00:18 00:13 Abdomen/GI: sb4 sb4 00:48 00:13 Patient is a 22-year-old female with type 1 diabetes who presented to the ED with sb4 complaints of abdominal pain, fever, nausea, vomiting, and pain all over. States that she began vomiting this evening and has not been able to stop. States her blood sugar at home was 250 and she had ketones in her urine. She has been taking all medications as prescribed. She was seen here recently treated for UTI with ciprofloxacin.. sb4 01:32 01:22 NS 0.9% 1000 ml IV at 1 bolus Per protocol; 1000 mL bolus ordered. rajan rajan 01:41 00:08 Abdomen Pelvis W Con+CT.RAD.BRZ ordered. EDMS EDMS 02:50 01:29 Telemetry/MedSurg (Inpatient) rajan cg 02:50 01:29 rajan cg 10:53 02:50 [facility] ER HOLD cg kj1 10:53 02:50 ERHOLD- cg kj1
[2022-07-10 01:35] LABS: SARS-COV-2 RT PCR NEGATIVE (NEGATIVE)
[2022-07-10] MEDS ORDERED: NA CHLORIDE 0.9% 100 ML IV ONE ×2 (02:00→08:29)
[2022-07-10] MEDS ORDERED: NS KCL 20MEQ 1,000 ML IV ONE (02:00)
[2022-07-10] MEDS ORDERED: PIPERACIL/TAZO 3.375 GM VIAL IV ONE ×2 (02:01→08:29)
--- NOTE | 2022-07-10 02:15 | P.HP ---
Certification for Inpatient Patient admitted to: Observation With expected LOS: <2 Midnights Patient will require the following post-hospital care: None Practitioner: I am a practitioner with admitting privileges, knowledge of patient current condition, hospital course, and medical plan of care. Services: Services provided to patient in accordance with Admission requirements found in Title 42 Section 412.3 of the Code of Federal Regulations <Dl Shen - Last Filed: 07/10/22 02:12> Patient History Date of Service: 07/10/22 Reason for admission: Epigastric pain, vomiting History of Present Illness: 22-year-old female with type 1 diabetes presents emergency department for epigastric pain, vomiting. She reports that last week on the first she began to have dysuria, frequency and was seen at [facility] and prescribed Macrobid, she took this medication throughout the weekend she began developing fever on the third and fourth of this month and came to the emergency department here on the sixth, at that time she was prescribed Cipro for UTI. Urine culture was also obtained, the preliminary results showed mixed christophe. She had a CT scan of the abdomen pelvis with IV contrast on 07/08/2022 which showed mild bladder wall thickening may indicate a cystitis, 2.5 cm right ovarian cyst with minimal fluid, moderate amount of stool in the colon, borderline hepatomegaly. Patient reports she is had increasing epigastric pain/upper quadrant pain since she got home as well as 3 episodes of vomiting today also noted small mount of ketones in her urine. She was evaluated here in the emergency department today her labs are significant for leukocytosis with white blood cell count 13.6, hemoglobin 10.9 hematocrit 32.3 potassium 3.3 glucose 125 urinalysis trace leuk esterase, greater than 50 white blood cells, less than 20 bacteria. She is not hyperglycemic or in DKA at this time she still has significant epigastric/right upper quadrant pain/tenderness. At this time ED is unable to perform ultrasound to rule out cholecystitis, wishes to admit patient under observation. - Past Medical/Surgical History Diabetic: Yes -: Type 1 DM -: major depressive disorder with psychosis -: -: [place] Teeth removed -: I&D Psychosocial/ Personal History: Patient lives at home with family - Family History Family History: Reviewed- Non-Contributory - Social History Smoking Status: Never smoker Alcohol use: No CD- Drugs: No Caffeine use: Yes Place of Residence: Home <Dl Shen - Last Filed: 07/10/22 02:12> Date of Service: 07/10/22 <Bradley Carreon - Last Filed: 07/10/22 23:05> Allergies acetaminophen [From Midol] Allergy (Verified 08/21/16 08:55) "bumps in my mouth" latex Allergy (Verified 08/21/16 08:55) Rash pamabrom [From Midol] Allergy (Verified 08/21/16 08:55) "bumps in my mouth" promethazine [From Phenergan] Allergy (Verified 04/20/19 23:18) Unknown Home Medications: Sertraline [Zoloft*] 100 mg PO DAILY 11/27/20 Insulin Aspart [Novolog Flexpen] See Protocol SQ SEECOM #1 box 11/28/20 Insulin Detemir [Levemir] 20 units SQ DAILY #1 vial 11/28/20 Sumatriptan [Imitrex*] 50 mg PO PRN PRN 30 Days #14 tab 01/17/21 Ubrogepant [Ubrelvy] 50 mg PO DAILY 30 Days #30 tablet 01/17/21 Duloxetine [Cymbalta *] 1 cap PO DAILY 07/10/22 Review of Systems 10-point ROS is otherwise unremarkable Gastrointestinal: Nausea, Vomiting, Abdominal Pain Genitourinary: Dysuria <Dl Shen - Last Filed: 07/10/22 02:12> Physical Examination - Physical Exam General: Alert, In no apparent distress, Oriented x3 HEENT: Atraumatic, PERRLA, Mucous membr. moist/pink, EOMI, Sclerae nonicteric Neck: Supple, 2+ carotid pulse no bruit, No LAD, Without JVD or thyroid abnormality Respiratory: Clear to auscultation bilaterally, Normal air movement Cardiovascular: Regular rate/rhythm, Normal S1 S2 Capillary refill: <2 Seconds Gastrointestinal: Normal bowel sounds, No masses, No rebound, No guarding, Tenderness (Moderate epigastric/right upper quadrant tenderness) Musculoskeletal: No tenderness Integumentary: No rashes Neurological: Normal gait, Normal speech, Normal strength at 5/5 x4 extr, Normal tone, Normal affect Lymphatics: No axilla or inguinal lymphadenopathy - Studies Laboratory Data (last 24 hrs) 07/10/22 00:10: Sodium 137, Potassium 3.3 L, BUN 11, Creatinine 0.78, Glucose 125 H, Total Bilirubin 0.3, AST 9 L, ALT 15, Alkaline Phosphatase 116, Lipase 60 L 07/10/22 00:10: WBC 13.60 H, Hgb 10.9 L, Hct 32.3 L, Plt Count 356 <Dl Shen - Last Filed: 07/10/22 02:12> - Studies Laboratory Data (last 24 hrs) 07/10/22 00:10: Sodium 137, Potassium 3.3 L, BUN 11, Creatinine 0.78, Glucose 125 H, Total Bilirubin 0.3, AST 9 L, ALT 15, Alkaline Phosphatase 116, Lipase 60 L 07/10/22 00:10: WBC 13.60 H, Hgb 10.9 L, Hct 32.3 L, Plt Count 356 <Bradley Carreon - Last Filed: 07/10/22 23:05> Assessment and Plan - Plan Assessment: Epigastric pain/tenderness rule out acute cholecystitis Diabetes mellitus type 1 Plan: Epigastric pain/tenderness rule out acute cholecystitis: NPO, IVF, IV antibiotics, as needed pain medications and antiemetics. Ultrasound this morning to rule out acute cholecystitis. Diabetes mellitus type 1: Every 6 hours Accu-Chek, sliding scale insulin. DVT PPX: SCD Code status: Full Discharge Plan: Home Plan to discharge in: 24 Hours - Advance Directives Does patient have a Living Will: No Does patient have a Durable POA for Healthcare: No - Code Status/Comfort Care Code Status Assessed: Yes (Full code) Critical Care: No Time Spent Managing Pts Care (In Minutes): 55 <Dl Shen - Last Filed: 07/10/22 02:12> - Plan Patient with recent diagnosis of UTI, fever to 103, persistent symptoms and now severe RUQ/epigastric pain suspect pyelonephritis check CT Abd/pelvis to r/o pyelo patient tachycardic, with significant pain, +nausea failed outpatient treatment sepsis, without severe sepsis, secondary to presumed pyelo continue empiric antibiotics pain control anti-emetics <Bradley Carreon - Last Filed: 07/10/22 23:05>
[2022-07-10] MEDS ORDERED: SODIUM CHLORIDE 0.9% 10ML INJ IV PRN (02:45)
[2022-07-10] MEDS ORDERED: NA CHLORIDE 0.9% 1,000 ML IV SCH (03:00)
[2022-07-10] MEDS ORDERED: D50W 25 GM/50 ML SYRINGE IV ONE (04:56)
[2022-07-10] MEDS ORDERED: DEXTROSE 10%-WATER 500 ML IV ONE (04:58)
[2022-07-10] MEDS ORDERED: D10W 250 ML IV ONE (05:00)
[2022-07-10] MEDS: D5.45NS W/KCL 20MEQ 20 MEQ/1,000 ML BAG IV SCH ×3 (05:00→16:14)
[2022-07-10 05:04] LABS: Absolute Lymphocytes (CBC) 1.4 K/uL (0.7-4.9); Hematocrit 28.6 % (36.0-45.0); Lymphocytes % 12.3 % (15.3-44.8); MCV 82.7 fL (80-100); MPV 7.5 fL (7.6-11.3); RBC Red Blood Cell Count 3.46 M/uL (3.86-4.86)
[2022-07-10] MEDS ORDERED: D5.45NS W/KCL 20MEQ 1,000 ML IV ONE (05:06)
[2022-07-10] MEDS ORDERED: MORPHINE 2 MG/ML SYR ONE ×2 (05:17→11:50)
[2022-07-10 05:22] LABS: Albumin 2.3 g/dL (3.4-5.0); Bilirubin Total 0.2 mg/dL (0.2-1.0); Protein, Total 5.9 g/dL (6.4-8.2)
[2022-07-10] MEDS: MORPHINE 2 MG/ML SYR IV PRN ×4 (05:25→23:21)
[2022-07-10] MEDS: ONDANSETRON 4 MG/2 ML VIAL IV PRN ×3 (05:26→17:25)
--- NOTE | 2022-07-10 07:27 | RAD REPORT ---
EXAM DESCRIPTION: US - Abdomen Exam Limited - 07/10/2022 7:15 am CLINICAL HISTORY: ABD PAIN COMPARISON: Abdomen Pelvis W Contrast dated 07/08/2022 FINDINGS: No gallstones, sludge or other abnormalities within the gallbladder lumen. There is no wal l thickening or pericholecystic fluid. No common duct stone or biliary tree dilatation identified. IMPRESSION: Normal gallbladder and biliary tree ultrasound.
--- NOTE | 2022-07-10 07:35 | RAD REPORT ---
EXAM DESCRIPTION: CT - Abdomen Pelvis W Contrast - 07/10/2022 7:10 am CLINICAL HISTORY: RUQ pain, recent UTI, eval pyelo, gallbladder COMPARISON: Abdomen Pelvis W Contrast dated 07/08/2022 TECHNIQUE: Biphasic, helical CT imaging of the abdomen and pelvis was performed following 100 ml non -ionic IV contrast. Oral contrast: No. All CT scans are performed using dose optimization technique as appropriate and may include automated exposure control or mA/KV adjustment according to patient size. FINDINGS: Stranding in each posterior gutter is believed be atelectasis. Infiltrate is not suspected . No pneumothorax or pleural effusion. No pericardial effusion. The liver, spleen, and pancreas show no suspicious findings. Periportal edema is present. This is a n onspecific finding that can seen with acute liver parenchymal disease but can also be a secondary res ponse to systemic illness. Gallbladder and biliary tree are also without suspicious finding. No hydronephrosis is present. No obstructing or nonobstructing calculi seen. There are subtle areas o f heterogeneous, diminished attenuation in the renal parenchyma. Mild or early bilateral pyelonephrit is is suspected. No solid mass of either kidney. Appearance of the bladder has improved significantly since the July 08 study. The thickened wall has returned to normal size. No adrenal abnormalities . Uterus and left ovary show no new findings. There is a 2.2 centimeter involuting right ovarian cyst . Trace amount of free fluid is seen in the peritoneal cavity. This is possibly from an ovarian folli joceline or cyst rupture. Reactive fluid from the abnormalities would be possible as well. No gastric dilatation or gastric wall thickening. No small bowel abnormality. The appendix is normal in diameter with air seen in the lumen. No acute colon process identified. No free air or pneumatosi s. No hernia, mass or bulky lymphadenopathy. No suspicious bony findings. IMPRESSION: Both kidneys show subtle areas of decreased enhancement suspicious for mild or early vanessa ateral pyelonephritis. The urinary bladder cystitis findings seen on July 08 have resolved or nearly fully resolved. Involuting right ovarian cyst or follicle. Trace amount of free fluid in the peritoneal cavity could be from cysts/ follicle rupture or possibly secondary reactive fluid from the abnormalities.
[2022-07-10] MEDS ORDERED: PROMETHAZINE INJ 25 MG/ML AMP ONE (08:13)
[2022-07-10] MEDS ORDERED: PANTOPRAZOLE 40 MG INJ ONE (08:29)
[2022-07-10] MEDS: PANTOPRAZOLE 40 MG INJ IVP SCH (09:00)
[2022-07-10] MEDS: PIPER TAZO 3.375 GM in NA CHLORIDE 0.9% 100 ML IV SCH ×2 (09:00→16:13)
[2022-07-10] MEDS ORDERED: ONDANSETRON 4 MG/2 ML VIAL IV ONE (09:00)
[2022-07-11] MEDS: D5.45NS W/KCL 20MEQ 20 MEQ/1,000 ML BAG IV SCH (00:47)
[2022-07-11] MEDS: PIPER TAZO 3.375 GM in NA CHLORIDE 0.9% 100 ML IV SCH ×3 (00:48→16:33)
[2022-07-11] MEDS ORDERED: GLUCAGON 1 MG/VIAL IM PRN (01:02)
[2022-07-11] MEDS ORDERED: D50W 25 GM/50 ML SYRINGE IV PRN (01:02)
[2022-07-11] MEDS ORDERED: D10W 125 ML IV PRN (01:06)
[2022-07-11] MEDS: Ringers Lactate 1,000 ML IV SCH ×3 (04:47→18:05)
[2022-07-11 04:48] LABS: Absolute Lymphocytes (CBC) 2.8 K/uL (0.7-4.9); Lymphocytes % 30.6 % (15.3-44.8); MCV 83.3 fL (80-100); MPV 7.8 fL (7.6-11.3); RBC Red Blood Cell Count 3.48 M/uL (3.86-4.86)
[2022-07-11 05:06] LABS: Albumin 2.2 g/dL (3.4-5.0); Bilirubin Total 0.2 mg/dL (0.2-1.0); Protein, Total 5.6 g/dL (6.4-8.2)
[2022-07-11 06:41] VITALS: BMI 24.3
[2022-07-11] MEDS ORDERED: INFLUENZA VACCINE (for 6+ mo) 0.5 ML DOSE IMVAC ONE (08:00)
[2022-07-11] MEDS: PANTOPRAZOLE 40 MG INJ IVP SCH (08:17)
[2022-07-11] MEDS: INSULIN -REGULAR HUMAN 50 UNIT/0.5 ML ML SQ SCH ×4 (08:28→21:45)
[2022-07-11] MEDS: MORPHINE 2 MG/ML SYR IV PRN (11:59)
[2022-07-11 12:38] LABS: Urine Bilirubin NEGATIVE (Negative); Urine Blood Negative (Negative); Urine Clarity Clear (Clear); Urine Color Colorless (Yellow); Urine Glucose 4+ (Over) (Negative); Urine Protein NEGATIVE (Negative); Urine Urobilinogen Normal (Normal); Urine pH 5.5 (5.0-7.0)
[2022-07-11] MEDS ORDERED: TRAMADOL HCL 50 MG TAB PO PRN (17:51)
[2022-07-11] MEDS ORDERED: MORPHINE 4 MG/ML SYR IV PRN (17:56)
--- NOTE | 2022-07-11 22:25 | P.PN ---
Date of Service: 07/11/22 Subjective: no acute events overnight slight improvement +nausea, no vomiting ROS: A complete review of systems was performed and is negative except as mentioned above Physical Exam: Gen: uncomfortable appearing, AOx3 HEENT: normal conjunctiva, sclera anicteric CV: regular rate & rhythm, no edema Pulm: non-labored respirations, clear bilaterally Abd: soft, TTP in RUQ, non-distended Skin: no rashes, no lesions Neuro: normal speech, normal affect, moves all extremities vitals reviewed Problem List acute bilateral pyelonephritis; failed outpatient therapy Diabetes mellitus type 1 nausea/vomiting RUQ pain slightly improved transition zosyn to levaquin f/u cultures - not done on admission unfortunately; unlikely to grow anything given multiple antibiotics she received improving advance diet as tolerated VTE: lovenox Code: full Dispo: home, ~2 days Time Spent Managing Pts Care (In Minutes): 35
[2022-07-11] MEDS ORDERED: Levofloxacin 750mg IV 750 MG/150 ML BAG IV SCH (23:00)
[2022-07-12] MEDS: ONDANSETRON 4 MG/2 ML VIAL IV PRN (01:57)
[2022-07-12] MEDS ORDERED: DIPHENHYDRAMINE 50 MG/ML VIAL IV ONE (02:18)
[2022-07-12] MEDS: Ringers Lactate 1,000 ML IV SCH ×3 (02:31→16:09)
[2022-07-12 05:42] LABS: Hematocrit 28.2 % (36.0-45.0); MPV 7.5 fL (7.6-11.3); RBC Red Blood Cell Count 3.44 M/uL (3.86-4.86)
[2022-07-12 05:57] LABS: Magnesium 1.7 mg/dL (1.6-2.4); Potassium 4.1 mmol/L (3.5-5.1)
[2022-07-12] MEDS: DULOXETINE 20 MG CAP PO SCH (08:48)
[2022-07-12] MEDS: INSULIN -REGULAR HUMAN 50 UNIT/0.5 ML ML SQ SCH ×4 (08:48→21:10)
[2022-07-12] MEDS: PANTOPRAZOLE 40 MG INJ IVP SCH (08:48)
[2022-07-12] MEDS: SERTRALINE HCL 100 MG TAB PO SCH (08:48)
[2022-07-12] MEDS ORDERED: INSULIN GLARGINE 100 UNIT/ML SQ SCH (09:00)
[2022-07-12] MEDS: PIPER TAZO 3.375 GM in NA CHLORIDE 0.9% 100 ML IV SCH ×2 (10:38→16:52)
[2022-07-12 11:21] VITALS: O2SAT 98
[2022-07-12] MEDS: INSULIN GLARGINE 100 UNIT/ML SQ SCH (21:10)
--- NOTE | 2022-07-12 21:19 | P.PN ---
Date of Service: 07/12/22 Subjective: allergic reaction to levaquin slight nausea, pain improving, more tolerable ROS: A complete review of systems was performed and is negative except as mentioned above Physical Exam: Gen: NAD, AOx3 HEENT: normal conjunctiva, sclera anicteric CV: regular rate & rhythm, no edema Pulm: non-labored respirations, clear bilaterally Abd: soft, TTP in RUQ, non-distended, minimal b/l CVA tenderness Skin: no rashes, no lesions Neuro: normal speech, normal affect, moves all extremities vitals reviewed Problem List acute bilateral pyelonephritis; failed outpatient therapy Diabetes mellitus type 1 nausea/vomiting improved RUQ pain improved allergic reaction to levaquin, restart zosyn augmentin on discharge f/u cultures - not done on admission unfortunately; unlikely to grow anything given multiple antibiotics she received improving advance diet as tolerated VTE: lovenox Code: full Dispo: home, possibly tomorrow Time Spent Managing Pts Care (In Minutes): 25
[2022-07-13] MEDS: PIPER TAZO 3.375 GM in NA CHLORIDE 0.9% 100 ML IV SCH ×2 (02:41→08:46)
[2022-07-13 05:50] VITALS: BP 120/69; TEMP 98.5
[2022-07-13 05:50] LABS: Potassium 3.7 mmol/L (3.5-5.1)
[2022-07-13] MEDS: INSULIN -REGULAR HUMAN 50 UNIT/0.5 ML ML SQ SCH (07:30)
[2022-07-13] MEDS: PANTOPRAZOLE 40 MG INJ IVP SCH (08:45)
[2022-07-13] MEDS: DULOXETINE 20 MG CAP PO SCH (08:45)
[2022-07-13] MEDS: INSULIN GLARGINE 100 UNIT/ML SQ SCH (08:45)
[2022-07-13] MEDS: SERTRALINE HCL 100 MG TAB PO SCH (08:45)
[2022-07-13] MEDS ORDERED: POTASSIUM CL SA 10 MEQ TAB PO ONE (09:00)
--- NOTE | 2022-07-13 17:41 | P.DS ---
Admission Date: 07/10/22 Discharge Date: 07/13/22 Disposition: ROUTINE DISCHARGE Discharge Condition: GOOD Reason for Admission: Epigastric pain, vomiting Brief History of Present Illness: 22yo F, PMH: Type 1 diabetic with recurrent UTIs Presents to ED with epigastric / RUQ pain, nausea, and vomiting. She was seen ~1 week ago at [facility] for dysuria and urinary frequency, prescribed Macrobid. After a few days, she had worsening symptoms and developed fever so she presented to our ED 2 days ago. She was diagnosed with UTI, noted to have fever to 103 at that time. She was discharged home with ciprofloxacin. She took this for ~1 day, but continued to worsen and developed nausea/vomiting, unable to keep anything down along with this severe pain. In the ED, she was noted to have leukocytopsis, UA concerning for UTI, with severe RUQ/epigastric tenderness, and inability to keep anything down. Hospital Course: Patient presented with nausea/vomiting and RUQ abdominal pain. Recently seen in ED for UTI with fever to 103. Found to have leukocytosis and CT concerning for mild bilateral pyelonephritis. She had improvement with empiric treatment with IV zosyn. She had an allergic reaction to levaquin. Her leukocytosis resolved, remained afebrile, and symptoms improved. Deemed stable for discharge home. To continue Augmentin for 7 days Blood culture was negative. Urine culture was ordered, however it was not performed / never made it to the lab to run. Follow up with PCP within 1 week Recommend consideration to follow up with Urology given recurrent UTIs RUQ U/S was performed and no Gallbladder/liver pathology noted. Tbili and LFTs were WNL. Vital Signs/Physical Exam: Temp Pulse Resp BP Pulse Ox 98.5 F 79 21 H 120/69 90 L 07/13/22 04:00 07/13/22 04:00 07/13/22 04:00 07/13/22 04:00 07/13/22 04:00 General: Alert, In no apparent distress, Oriented x3 HEENT: EOMI, Sclerae nonicteric Neck: Supple, No LAD Respiratory: Clear to auscultation bilaterally, Normal air movement Cardiovascular: No edema, Regular rate/rhythm Gastrointestinal: Soft and benign, Non-distended, No tenderness Musculoskeletal: No erythema, No tenderness Integumentary: No rashes, No significant lesion Neurological: Normal speech, Normal strength at 5/5 x4 extr, Normal affect Laboratory Data at Discharge: WBC 8.30 K/uL (4.3-10.9) 07/12/22 05:10 Hgb 9.6 g/dL (12.0-15.0) L 07/12/22 05:10 Hct 28.2 % (36.0-45.0) L 07/12/22 05:10 Plt Count 396 K/uL (152-406) 07/12/22 05:10 Sodium 137 mmol/L (136-145) 07/13/22 05:06 Potassium 3.7 mmol/L (3.5-5.1) 07/13/22 05:06 BUN 4 mg/dL (7-18) L 07/13/22 05:06 Creatinine 0.72 mg/dL (0.55-1.02) 07/13/22 05:06 Glucose 236 mg/dL (74-106) H 07/13/22 05:06 Magnesium 1.7 mg/dL (1.6-2.4) 07/12/22 05:10 Total Bilirubin 0.2 mg/dL (0.2-1.0) 07/11/22 04:16 AST 5 U/L (15-37) L 07/11/22 04:16 ALT 12 U/L (13-56) L 07/11/22 04:16 Alkaline Phosphatase 96 U/L (45-117) 07/11/22 04:16 Lipase 48 U/L (73-393) L 07/10/22 04:38 Home Medications: Sertraline [Zoloft*] 100 mg PO DAILY 11/27/20 Insulin Aspart [Novolog Flexpen] See Protocol SQ SEECOM #1 box 11/28/20 Insulin Detemir [Levemir] 20 units SQ DAILY #1 vial 11/28/20 Sumatriptan [Imitrex*] 50 mg PO PRN PRN 30 Days #14 tab 01/17/21 Ubrogepant [Ubrelvy] 50 mg PO DAILY 30 Days #30 tablet 01/17/21 Duloxetine [Cymbalta *] 1 cap PO DAILY 07/10/22 Amox/Clavulanate [Augmentin 875-125 Tab] 875 mg PO BID 7 Days #14 tab 07/13/22 New Medications: Amox/Clavulanate [Augmentin 875-125 Tab] 875 mg PO BID 7 Days #14 tab Physician Discharge Instructions: Patient presented with nausea/vomiting and RUQ abdominal pain. Recently seen in ED for UTI with fever to 103. Found to have leukocytosis and CT concerning for mild bilateral pyelonephritis. She had improvement with empiric treatment with IV zosyn. She had an allergic reaction to levaquin. Her leukocytosis resolved, remained afebrile, and symptoms improved. Deemed stable for discharge home. To continue Augmentin for 7 days Follow up with PCP within 1 week Recommend consideration to follow up with Urology given recurrent UTIs Followup: NONE,NONE [Primary Care Provider] - 1 Week (call to schedule an appointment) Time spent managing pt's care (in minutes): 45
== END 2022-07-13 09:56 | disposition home or self-care (01) | DRG 872 ==
LOC: ER 23:35 → ERHOLD 07-10 02:00 → 4TH 07-10 12:04 → OBSVTOIN 07-11 10:21
PROVIDERS: ADMIT Hospitalist; ATTEND Hospitalist
DX: A41.9 Sepsis, unspecified organism (principal); N10 Acute pyelonephritis; E87.6 Hypokalemia; E10.9 Type 1 diabetes mellitus without complications; N83.201 Unspecified ovarian cyst, right side; Z79.4 Long term (current) use of insulin; Z88.5 Allergy status to narcotic agent; Z91.018 Allergy to other foods; Z91.040 Latex allergy status; Z79.899 Other long term (current) drug therapy; Z20.822 Contact with and (suspected) exposure to COVID-19
CPT/HCPCS: 0240U; 36415; 74177; 76705; 80048; 80053; 81003; 81015; 81025; 82947; 83690; 83735; 85025; 85027; 87040; 96361; 96374; 96375; 99285; C9113; G0378; J1200; J1815; J2270; J2405; J2543; J2550; J3480; J7030; J7120; Q9967

== ENCOUNTER 2023-11-30 15:06 | Emergency (ER) | payer OTHER ==
[2023-11-30 15:39] LABS: Specific Gravity 1.017 (1.005-1.030)
[2023-11-30] MEDS ORDERED: ONDANSETRON 4 MG/2 ML VIAL ONE (16:55)
[2023-11-30] MEDS ORDERED: NA CHLORIDE 0.9% 1,000 ML ONE (16:55)
[2023-11-30] MEDS ORDERED: MORPHINE 4 MG/ML SYR ONE (16:55)
[2023-11-30 17:13] LABS: Absolute Eosinophils 0.1 K/uL (0-0.5); Absolute Lymphocytes (CBC) 2.7 K/uL (0.7-4.9); Absolute Monocytes 0.4 K/uL (0.1-1.3); Absolute Neutrophil 3.7 K/uL (1.8-8.0); Basophils % 0.6 % (0-1.3); Eosinophils % 1.2 % (0-4.4); Hematocrit 33.2 % (36.0-45.0); Hemoglobin 11.5 g/dL (12.0-15.0); Lymphocytes % 38.9 % (15.3-44.8); MCH 28.7 pg (27.0-35.0); MCHC 34.7 g/dL (32.0-36.0); MCV 82.7 fL (80-100); MPV 7.2 fL (7.6-11.3); Monocytes % 6.2 % (3.3-12.3); Neutrophils % 53.1 % (41.7-73.7); Nucleated Red Blood Cells % 0.1 % (0-0); Platelets 344 thou/uL (152-406); RBC Red Blood Cell Count 4.02 M/uL (3.86-4.86); Red Cell Distribution Width 13.5 % (12.1-15.2)
[2023-11-30 17:23] LABS: Anion Gap 8.8 mEq/L (5.0-15.0); Potassium 3.8 mEq/L (3.5-5.1)
--- NOTE | 2023-11-30 17:26 | RAD REPORT ---
EXAM DESCRIPTION: CT - Head Brain Wo Cont - 11/30/2023 4:47 pm CLINICAL HISTORY: HEADACHE COMPARISON: Head angio dated 11/30/2023; Head angio dated 10/03/2019; Head Brain Wo Cont dated 10/03/2019 TECHNIQUE: Noncontrast head CT images were obtained without IV contrast. Multiplanar reformats were generated and reviewed. All CT scans are performed using dose optimization technique as appropriate and may include automated exposure control or mA/KV adjustment according to patient size. FINDINGS: No intracranial hemorrhage, mass, or edema. Midline structures are unremarkable. Normal ventricular caliber for age. [place]-white matter differentiation is preserved, without evidence of acute infarct. No abnormal extra- axial fluid collections. Mastoid air cells and visualized portions of the paranasal sinuses are clear. No acute bony findings. IMPRESSION: No evidence of an acute intracranial process.
--- NOTE | 2023-11-30 17:31 | RAD REPORT ---
EXAM DESCRIPTION: CT - Head angio - 11/30/2023 4:46 pm CLINICAL HISTORY: HEADACHE COMPARISON: Head angio dated 10/03/2019; Head Brain Wo Cont dated 10/03/2019 TECHNIQUE: Axial CT angiography images of the head was performed with multiplanar and maximum intens ity projection reconstructions. Images performed following intravenous administration of 95mL Isovue 370. All CT scans are performed using dose optimization technique as appropriate and may include automated exposure control or mA/KV adjustment according to patient size. FINDINGS: No evidence of large vessel occlusion. No evidence of aneurysm or dissection flap is detec denton. No flow-limiting stenosis or vascular malformation identified. Antegrade flow is seen in the vertebral arteries. The vertebral arteries are codominant. The visualized dural venous sinuses are grossly patent. IMPRESSION: No evidence of large vessel occlusion or flow-limiting stenosis.
--- NOTE | 2023-11-30 17:37 | RAD REPORT ---
EXAM DESCRIPTION: CT - Neck Angio - 11/30/2023 4:46 pm CLINICAL HISTORY: HEADACHE COMPARISON: No comparisons TECHNIQUE: Axial CT angiography images of the neck was performed with multiplanar and maximum intens ity projection reconstructions. Images performed following intravenous administration of 95mL Isovue 370. All CT scans are performed using dose optimization technique as appropriate and may include automated exposure control or mA/KV adjustment according to patient size. Quantification of carotid stenosis, if any, is performed according to NASCET criteria. FINDINGS: A left aortic arch is identified with normal three vessel configuration of the great vesse ls. No significant flow abnormality is seen of the common carotid bilaterally. No significant stenosis is identified involving the cervical segments of both internal carotid arteri es. Normal flow is seen within both vertebral arteries. IMPRESSION: No significant flow abnormality of the neck vessels is identified. CAROTID STENOSIS REFERENCE USING NASCET CRITERIA: % ICA stenosis = (1 - narrowest ICA diameter/diameter of distal cervical ICA) x 100. Mild - <50% stenosis. Moderate - 50-69% stenosis. Severe - 70-94% stenosis. Near occlusion - 95-99% stenosis. Occluded - 100% stenosis.
[2023-11-30] MEDS ORDERED: MORPHINE 2 MG/ML SYR ONE (17:42)
[2023-11-30] MEDS ORDERED: KETOROLAC 30 MG/ML INJ ONE (17:42)
--- NOTE | 2023-11-30 17:44 | EDPHYS ---
Physician Documentation [facility] Name: Salome Santacruz Age: 23 yrs Sex: Female : 2000 Arrival Date: 11/30/2023 Time: 15:06 Bed 11 Private MD: ED Physician Joe Carreon HPI: 11/29 15:31 This 23 yrs old Female presents to ER via Ambulatory with complaints of Headache, Eye rn Pain, Neck pain. 15:31 The patient complains of pain to the top of head and forehead. The patient describes rn the headache as aching. 15:33 Onset: The symptoms/episode began/occurred 3 day(s) ago. Associated signs and symptoms: rn Pertinent positives: Photophobia Pertinent negatives: altered mental status, fever, neck stiffness, rash, vision loss. Severity of symptoms: At its worst the pain was moderate, "similar to past headaches", in the emergency department the pain is unchanged. The symptoms are alleviated by nothing. the symptoms are aggravated by lights, noise. The patient has experienced similar episodes in the past, multiple times. The patient has not recently seen a physician. Patient reports migraine headache that began a few days ago. No trauma. No fever. No focal neurological deficit. Patient states similar to previous migraines that she has had numerous times. Does strangely so that she has never had migraine workup. Does not recall last time she had imaging.. Historical: - Allergies: 15:19 raw onions; ld1 15:19 Phenergan; ld1 15:19 Midol; ld1 15:19 Latex; ld1 15:19 Keflex; ld1 15:19 Demerol; ld1 - PMHx: 15:19 Anxiety; Bipolar disorder; Diabetes - IDDM; Depression; Type 1 Diabetes Mellitus; ld1 Migraine; - PSHx: 15:19 section; ld1 - Immunization history:: Adult Immunizations up to date. - Infectious Disease History:: Denies. - Social history:: Smoking status: Patient denies any tobacco usage or history of. Patient/guardian denies using alcohol. - Family history:: not pertinent. ROS: 15:33 Constitutional: Negative for fever, chills, and weight loss, Eyes: Negative for injury, rn pain, redness, and discharge, Neck: Negative for injury, and swelling, Cardiovascular: Negative for chest pain, palpitations, and edema, Respiratory: Negative for shortness of breath, cough, wheezing, and pleuritic chest pain, Abdomen/GI: Negative for abdominal pain, diarrhea, and constipation, MS/Extremity: Negative for injury and deformity, Skin: Negative for injury, rash, and discoloration, Neuro: Negative for weakness, numbness, tingling, and seizure, Exam: 15:35 Constitutional: This is a well developed, well nourished patient who is awake, alert, rn and in no acute distress. Head/Face: Normocephalic, atraumatic. Cardiovascular: Regular rate and rhythm with a normal S1 and S2. No gallops, murmurs, or rubs. Normal PMI, no JVD. No pulse deficits. Respiratory: Lungs have equal breath sounds bilaterally, clear to auscultation and percussion. No rales, rhonchi or wheezes noted. No increased work of breathing, no retractions or nasal flaring. Abdomen/GI: Soft, non-tender, with normal bowel sounds. No distension or tympany. No guarding or rebound. No evidence of tenderness throughout. Vital Signs: 15:18 BP 119 / 102; Pulse 97; Resp 18; Temp 98.4(TE); Pulse Ox 98% on R/A; Weight 68.04 kg; ld1 Height 5 ft. 4 in. ; Pain 5/10; 17:35 BP 97 / 66; Pulse 88; Resp 18 S; Pulse Ox 100% on R/A; as6 18:00 BP 109 / 75; Pulse 87; Resp 18 S; Pulse Ox 100% on R/A; as6 15:18 Body Mass Index 25.75 (68.04 kg, 162.56 cm) ld1 15:18 Pain Scale: Adult ld1 [place] Coma Score: 17:42 Eye Response: spontaneous(4). Motor Response: obeys commands(6). Verbal Response: rn oriented(5). Total: 15. MDM: 15:15 Patient medically screened. rn 17:42 Differential diagnosis: migraine, neoplasm. rn 17:42 Data reviewed: vital signs, nurses notes, lab test result(s), radiologic studies, CT rn scan, and as a result, I will discharge patient. Counseling: I had a detailed discussion with the patient and/or guardian regarding the historical points, exam findings, and any diagnostic results supporting the discharge/admit diagnosis, lab results, radiology results, the need for outpatient follow up, to return to the emergency department if symptoms worsen or persist or if there are any questions or concerns that arise at home. Response to treatment: the patient's symptoms have mildly improved after treatment, and as a result, I will discharge patient. Special discussion: I discussed with the patient/guardian in detail that at this point there is no indication for admission to the hospital. It is understood, however, that if the symptoms persist or worsen the patient needs to return immediately for re-evaluation. 17:42 ED course: No acute findings and CT head or CT angio head and neck. Patient feels rn better after pain control. Most likely another one of her migraines. Will treat pain and discharge home. I have personally reviewed all of the results, including but not limited to blood tests and imaging deemed necessary to safely discharge this patient at this time. All results given to and printed out for patient. I personally went over all the results with the patient and answered all questions. Patient will follow-up with PCP and or specialist as discussed. Return precautions given and understood.. 11/29 15:26 Order name: CBC with Diff; Complete Time: 17:29 rn 11/29 15:26 Order name: Basic Metabolic Panel; Complete Time: 17:29 rn 11/29 15:26 Order name: Test, Urine; Complete Time: 17:29 rn 11/29 15:26 Order name: CT Head Brain wo Cont; Complete Time: 17:29 rn 11/29 15:26 Order name: Head Angio CT; Complete Time: 17:33 rn 11/29 15:26 Order name: Neck Angio CT; Complete Time: 17:38 rn 11/29 15:26 Order name: IV Start; Complete Time: 16:43 rn Administered Medications: 17:04 Drug: morphine IVP or IV 4 mg IVP once over 4 mins Route: IVP; Infused Over: 4 mins; as6 Site: right antecubital; 18:02 Follow up: Response: No adverse reaction as6 17:04 Drug: Ondansetron IVP 4 mg IVP once; over 2 minutes Route: IVP; Site: right antecubital;as6 18:02 Follow up: Response: No adverse reaction as6 17:04 Drug: NS 0.9% IV 1000 ml IV at 1000 ml once Route: IV; Rate: 1000 ml; Site: right as6 antecubital; 18:02 Follow up: Response: No adverse reaction; IV Status: Completed infusion; IV Intake: as6 1000ml 17:46 Drug: Ketorolac IVP 30 mg IVP once Route: IVP; Site: right antecubital; as6 18:02 Follow up: Response: No adverse reaction as6 17:46 Drug: morphine IVP or IV 2 mg IVP once over 4 mins Route: IVP; Infused Over: 4 mins; as6 Site: right antecubital; 18:02 Follow up: Response: No adverse reaction as6 Disposition Summary: 11/30/23 17:43 Discharge Ordered Notes: Location: Home rn Problem: chronic rn Symptoms: have improved rn Condition: Stable rn Diagnosis - Migraine, unspecified, not intractable, without status migrainosus rn Followup: rn - With: Private Physician - When: As needed - Reason: Recheck today's complaints, Re-evaluation by your physician Discharge Instructions: - Discharge Summary Sheet rn - Migraine Headache rn Forms: - Medication Reconciliation Form rn - Antibiotic rn clinical quality - Prescription Opioid Use rn - Patient Portal Instructions rn - Leadership Thank You Letter rn Prescriptions: - Tramadol 50 mg Oral Tablet - take 1 tablet ORAL route every 8 hours as needed; 12 tablet; Refills: 0, rn Product Selection Permitted Signatures: Dispatcher [employer] EDMS Joe Carreon MD MD rn Sims, Lauren RN RN ld1 Jacinto Wahl, RN RN as6 Corrections: (The following items were deleted from the chart) 15:26 15:26 Neck Angio+CT.RAD.BRZ ordered. EDMS EDMS 15:27 15:26 CBC+H.LAB.BRZ ordered. EDMS EDMS 15:27 15:26 BASIC METABOLIC PANEL+C.LAB.BRZ ordered. EDMS EDMS 15:27 15:26 Test, Urine+UC.LAB.BRZ ordered. EDMS EDMS 15:42 15:42 Lower Extremity Artery Uni Ltd+US.RAD.BRZ ordered. EDMS EDMS 16:09 15:42 Extremity Venous Uni Ltd+US.RAD.BRZ ordered. EDMS EDMS
--- NOTE | 2023-11-30 17:44 | ER ---
Nurse's Notes [facility] Name: Salome Santacruz Age: 23 yrs Sex: Female : 2000 Arrival Date: 11/30/2023 Time: 15:06 Bed 11 Private MD: Diagnosis: Migraine, unspecified, not intractable, without status migrainosus Presentation: 11/29 15:18 Chief complaint: Patient states: Migraines X 3 years. C/O worsening migraines recently, ld1 PCP told to go to ER if pain became worse. Coronavirus screen: At this time, the client does not indicate any symptoms associated with coronavirus-19. Ebola Screen: No symptoms or risks identified at this time. Initial Sepsis Screen: Does the patient meet any 2 criteria? No. Patient's initial sepsis screen is negative. Does the patient have a suspected source of infection? No. Patient's initial sepsis screen is negative. Risk Assessment: Do you want to hurt yourself or someone else? Patient reports no desire to harm self or others. Onset of symptoms was November 30, 2023. 15:18 Method Of Arrival: Ambulatory ld1 15:18 Acuity: BRIAN 3 ld1 Triage Assessment: 15:19 Headache History: The patient has had previous headaches and this one is similar to ld1 previous episodes. General: Appears in no apparent distress. uncomfortable, Behavior is calm, cooperative, appropriate for age. Pain: Complains of pain in right ear, right confucianism and right jaw Pain does not radiate. Pain currently is 8 out of 10 on a pain scale. Quality of pain is described as throbbing, Pain began suddenly, Also complains of no other associated symptoms. EENT: No signs and/or symptoms were reported regarding the EENT system. Neuro: Level of Consciousness is awake, alert, obeys commands, Oriented to person, place, time, situation. Cardiovascular: Capillary refill < 3 seconds Patient's skin is warm and dry. Respiratory: Airway is patent Respiratory effort is even, unlabored. GI: Abdomen is round non-distended. : No signs and/or symptoms were reported regarding the genitourinary system. Derm: No signs and/or symptoms reported regarding the dermatologic system. Musculoskeletal: No signs and/or symptoms reported regarding the musculoskeletal system. Historical: - Allergies: 15:19 raw onions; ld1 15:19 Phenergan; ld1 15:19 Midol; ld1 15:19 Latex; ld1 15:19 Keflex; ld1 15:19 Demerol; ld1 - PMHx: 15:19 Anxiety; Bipolar disorder; Diabetes - IDDM; Depression; Type 1 Diabetes Mellitus; ld1 Migraine; - PSHx: 15:19 section; ld1 - Immunization history:: Adult Immunizations up to date. - Infectious Disease History:: Denies. - Social history:: Smoking status: Patient denies any tobacco usage or history of. Patient/guardian denies using alcohol. - Family history:: not pertinent. Screenin:34 [facility] ED Fall Risk Assessment (Adult) History of falling in the last 3 months, as6 including since admission No falls in past 3 months (0 pts) Confusion or Disorientation No (0 pts) Intoxicated or Sedated No (0 pts) Impaired Gait No (0 pts) Mobility Assist Device Used No (0 pt) Altered Elimination No (0 pt) Score/Fall Risk Level 0 - 2 = Low Risk Oriented to surroundings, Maintained a safe environment, Educated pt \T\ family on fall prevention, incl call for assistance when getting out of bed, Assessed \T\ reinforced patient's understanding of fall precautions. Abuse screen: Denies threats or abuse. Denies injuries from another. Nutritional screening: No deficits noted. Tuberculosis screening: No symptoms or risk factors identified. Assessment: 17:35 Reassessment: Patient appears in no apparent distress at this time. Patient and/or as6 family updated on plan of care and expected duration. Pain level reassessed. Patient is alert, oriented x 3, equal unlabored respirations, skin warm/dry/pink. still c/o headache, medicated as ordered. Vital Signs: 15:18 BP 119 / 102; Pulse 97; Resp 18; Temp 98.4(TE); Pulse Ox 98% on R/A; Weight 68.04 kg; ld1 Height 5 ft. 4 in. ; Pain 5/10; 17:35 BP 97 / 66; Pulse 88; Resp 18 S; Pulse Ox 100% on R/A; as6 18:00 BP 109 / 75; Pulse 87; Resp 18 S; Pulse Ox 100% on R/A; as6 15:18 Body Mass Index 25.75 (68.04 kg, 162.56 cm) ld1 15:18 Pain Scale: Adult ld1 Rody Coma Score: 17:42 Eye Response: spontaneous(4). Motor Response: obeys commands(6). Verbal Response: rn oriented(5). Total: 15. ED Course: 15:11 Patient arrived in ED. mr 15:15 Joe Carreon MD is Attending Physician. rn 15:19 Triage completed. ld1 15:19 Arm band placed on right wrist. ld1 15:35 Test, Urine Sent. jr12 16:08 Jacinto Wahl, VI is Primary Nurse. as6 16:46 CT Head Brain wo Cont In Process Unspecified. EDMS 16:[address] In Process Unspecified. EDMS 16:[address] In Process Unspecified. EDMS 17:35 Bed in low position. Call light in reach. Side rails up X 1. Client placed on as6 continuous cardiac and pulse oximetry monitoring. NIBP monitoring applied. Warm blanket given. 18:01 Provided Education on: follow up. as6 18:01 No provider procedures requiring assistance completed. IV discontinued, intact, as6 bleeding controlled, No redness/swelling at site. Pressure dressing applied. Administered Medications: 17:04 Drug: morphine IVP or IV 4 mg IVP once over 4 mins Route: IVP; Infused Over: 4 mins; as6 Site: right antecubital; 18:02 Follow up: Response: No adverse reaction as6 17:04 Drug: Ondansetron IVP 4 mg IVP once; over 2 minutes Route: IVP; Site: right antecubital;as6 18:02 Follow up: Response: No adverse reaction as6 17:04 Drug: NS 0.9% IV 1000 ml IV at 1000 ml once Route: IV; Rate: 1000 ml; Site: right as6 antecubital; 18:02 Follow up: Response: No adverse reaction; IV Status: Completed infusion; IV Intake: as6 1000ml 17:46 Drug: Ketorolac IVP 30 mg IVP once Route: IVP; Site: right antecubital; as6 18:02 Follow up: Response: No adverse reaction as6 17:46 Drug: morphine IVP or IV 2 mg IVP once over 4 mins Route: IVP; Infused Over: 4 mins; as6 Site: right antecubital; 18:02 Follow up: Response: No adverse reaction as6 Medication: 17:35 VIS not applicable for this client. as6 Intake: 18:02 IV: 1000ml; Total: 1000ml. as6 Outcome: 17:43 Discharge ordered by . rn 18:01 Discharged to home ambulatory, with significant other, as6 18:01 Condition: stable 18:01 Discharge instructions given to patient, Instructed on discharge instructions, follow up and referral plans. medication usage, Demonstrated understanding of instructions, follow-up care, medications, Prescriptions given X 1, 18:02 Patient left the ED. as6 Signatures: Dispatcher [employer] EDMS Vale Hall, Reg Reg mr Joe Carreon MD MD rn Sims, Lauren, RN RN [email or web address] Jacinto Wahl RN RN as6 Shell Shepherd [email or web address]
[2023-11-30 18:56] VITALS: BP 109/75; TEMP 98.4; O2SAT 100
== END 2023-11-30 18:02 | disposition home or self-care (01) ==
LOC: ER 15:06
DX: G43.909 Migraine, unspecified, not intractable, without status migrainosus (principal); Z88.1 Allergy status to other antibiotic agents; Z88.5 Allergy status to narcotic agent; Z88.8 Allergy status to other drugs, medicaments and biological substances; Z91.018 Allergy to other foods; Z91.040 Latex allergy status
CPT/HCPCS: 85025; 80048; 36415; 81025; 82565; 70450; 70496; 70498; Q9967; J2270; J2405; J7030; 96361; 96374; 96375; 99284

== ENCOUNTER 2024-05-14 21:13 | Emergency (ER) | payer OTHER ==
[2024-05-14] MEDS ORDERED: IBUPROFEN 400 MG TAB ONE (21:51)
[2024-05-14] MEDS ORDERED: IBUPROFEN 200 MG TAB PO ONE (21:51)
[2024-05-14] MEDS ORDERED: HYDROCODONE/APAP 10/325 TAB ONE (21:51)
--- NOTE | 2024-05-14 22:20 | RAD REPORT ---
EXAMINATION: XR LEFT KNEE CLINICAL INDICATION: PAIN TECHNIQUE: Multiple projections of the left knee were obtained. COMPARISON: No prior exam. FINDINGS: No bone or joint abnormality seen.
--- NOTE | 2024-05-14 22:46 | ER ---
Nurse's Notes [facility] Name: Salome Santacruz Age: 24 yrs Sex: Female : 2000 Arrival Date: 05/14/2024 Time: 21:13 Bed 17 Private MD: Diagnosis: Pain in left lower leg;Pain in left knee;Unspecified symptoms and signs involving the musculoskeletal system Presentation: 05/14 21:21 Chief complaint: Patient states: hurt left knee by running 1 week ago. wore a brace for cp4 a few days with no relief. pain to back of left knee radiating to foot. Coronavirus screen: Client denies travel out of the [place] in the last 14 days. At this time, the client does not indicate any symptoms associated with coronavirus-19. Ebola Screen: No symptoms or risks identified at this time. Initial Sepsis Screen: Does the patient meet any 2 criteria? No. Patient's initial sepsis screen is negative. Does the patient have a suspected source of infection? No. Patient's initial sepsis screen is negative. Risk Assessment: Do you want to hurt yourself or someone else? Patient reports no desire to harm self or others. Onset of symptoms is unknown. 21:21 Method Of Arrival: Wheelchair cp4 21:21 Acuity: BRIAN 4 cp4 Triage Assessment: 21:23 General: Appears in no apparent distress. comfortable, Behavior is calm, cooperative. cp4 Pain: Complains of pain in posterior aspect of left knee Pain radiates to left leg. EENT: No deficits noted. No signs and/or symptoms were reported regarding the EENT system. Neuro: No deficits noted. Lama Agitation-Sedation Scale (RASS): 0 - Alert and Calm Level of Consciousness is awake, alert, obeys commands, Oriented to person, place, time, situation. Cardiovascular: No deficits noted. Denies chest pain, shortness of breath, Capillary refill < 3 seconds Clubbing of nail beds is absent JVD is absent Patient's skin is warm and dry. Respiratory: No deficits noted. Airway is patent Respiratory effort is even, unlabored, Respiratory pattern is regular, symmetrical. GI: No deficits noted. No signs and/or symptoms were reported involving the gastrointestinal system. : No deficits noted. No signs and/or symptoms were reported regarding the genitourinary system. Derm: No deficits noted. No signs and/or symptoms reported regarding the dermatologic system. Skin is intact, is healthy with good turgor, Skin is dry, Skin is normal, Skin temperature is warm. Musculoskeletal: Circulation, motion, and sensation intact. Range of motion: intact in all extremities, Reports pain in posterior aspect of left knee. 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 - Infectious Disease History:: Denies. - Social history:: Smoking status: Patient denies any tobacco usage or history of. Patient/guardian denies using alcohol, street drugs. - Family history:: not pertinent. Screenin:59 [facility] ED Fall Risk Assessment (Adult) History of falling in the last 3 months, rg5 including since admission No falls in past 3 months (0 pts) Confusion or Disorientation No (0 pts) Intoxicated or Sedated No (0 pts) Impaired Gait No (0 pts) Mobility Assist Device Used No (0 pt) Altered Elimination No (0 pt) Score/Fall Risk Level 0 - 2 = Low Risk Oriented to surroundings, Maintained a safe environment, Hourly rounding (assess needs \T\ fall precautionary measures) done. Abuse screen: Denies threats or abuse. Nutritional screening: No deficits noted. Tuberculosis screening: No symptoms or risk factors identified. Assessment: 21:30 General: Appears in no apparent distress. Behavior is calm, cooperative, appropriate rg5 for age. 21:30 Pain: Complains of pain in right leg Pain currently is 8 out of 10 on a pain scale. rg5 Neuro: Level of Consciousness is awake, alert, obeys commands, Oriented to person, place, time. Cardiovascular: Denies chest pain, shortness of breath, Heart tones S1 S2 Capillary refill < 3 seconds Patient's skin is warm and dry. Respiratory: Airway is patent Trachea midline Respiratory effort is even, unlabored. GI: Abdomen is round non-distended. : No signs and/or symptoms were reported regarding the genitourinary system. EENT: No deficits noted. Derm: Skin is intact, Skin is clammy, Skin is normal, Skin temperature is warm. Musculoskeletal: Circulation, motion, and sensation intact. Range of motion: intact in all extremities. 22:35 Reassessment: Patient and/or family updated on plan of care and expected duration. Pain rg5 level reassessed. Patient is alert, oriented x 3, equal unlabored respirations, skin warm/dry/pink. Patient states symptoms have improved. Vital Signs: 21:21 BP 116 / 52; Pulse 94; Resp 17 S; Temp 98.5(O); Pulse Ox 100% on R/A; Weight 74.84 kg cp4 (R); Height 5 ft. 4 in. (R); Pain 7/10; 21:30 BP 116 / 52; Pulse 94; Resp 17; Pulse Ox 100% on R/A; Pain 8/10; rg5 22:30 BP 117 / 60; Pulse 88; Resp 17; Temp 98(O); Pulse Ox 100% ; Pain 3/10; rg5 21:21 Body Mass Index 28.32 (74.84 kg, 162.56 cm) cp4 21:21 Pain Scale: Adult cp4 21:30 Pain Scale: Adult rg5 22:30 Pain Scale: Adult rg5 ED Course: 21:17 Patient arrived in ED. ra3 21:23 Triage completed. cp4 21:23 Dre Rice MD is Attending Physician. rajan 21:23 Arm band placed on right wrist. cp4 21:30 Edson Gamboa, VI is Primary Nurse. rg5 22:11 Knee Left 3 View XRAY In Process Unspecified. EDMS 22:46 Ezra Macias MD is Referral Physician. rajan 22:48 US Extremity Venous W Compression Edwin In Process Unspecified. EDMS 22:59 Patient has correct armband on for positive identification. Call light in reach. Side rg5 rails up X 1. Adult w/ patient. 22:59 No provider procedures requiring assistance completed. Patient did not have IV access rg5 during this emergency room visit. 23:00 Provided Education on: POST ER CARE. rg5 Administered Medications: 22:00 Drug: [place] PO 10 mg-325 mg 1 tabs PO once Route: PO; rg5 22:40 Follow up: Response: No adverse reaction; Pain is decreased rg5 22:01 Drug: Ibuprofen PO 600 mg PO once Route: PO; rg5 22:40 Follow up: Response: No adverse reaction; Pain is decreased rg5 Medication: 22:59 VIS not applicable for this client. rg5 Outcome: 22:46 Discharge ordered by MD. tolentino 23:16 Discharged to home via wheelchair, rg5 23:16 Condition: stable 23:16 Discharge instructions given to patient, Instructed on discharge instructions, follow up and referral plans. Demonstrated understanding of instructions, follow-up care, medications, Prescriptions given X 1, 23:17 Patient left the ED. rg5 Signatures: Dispatcher [employer] EDMS Dre Rice MD MD cha Potter, Christina cp4 Stephanie Enriqeu ra3 Edson Gamboa, RN RN rg5 Corrections: (The following items were deleted from the chart) 21:25 21:23 Allergies: Demerol; cp4 cp4
--- NOTE | 2024-05-14 22:46 | EDPHYS ---
Physician Documentation [facility] Name: Salome Santacruz Age: 24 yrs Sex: Female : 2000 Arrival Date: 05/14/2024 Time: 21:13 Bed 17 Private MD: KRISTINE Physician Dre Rice HPI: 05/14 22:10 This 24 yrs old Female presents to ER via Wheelchair with complaints of Leg rajan Injury, Knee Injury - left. 22:10 The patient presents with decreased range of motion, an injury, pain, that is acute. rajan The complaints affect the lateral aspect of left calf, left calf, medial aspect of left calf and left valente. Context: The problem was sustained at home, resulted from a repetitive motion, an unknown cause. 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 - Infectious Disease History:: Denies. - Social history:: Smoking status: Patient denies any tobacco usage or history of. Patient/guardian denies using alcohol, street drugs. - Family history:: not pertinent. ROS: 22:10 Constitutional: Negative for fever, chills, and weight loss, Eyes: Negative for injury, rajan pain, redness, and discharge, ENT: Negative for injury, pain, and discharge, Neck: Negative for injury, pain, and swelling, Cardiovascular: Negative for chest pain, palpitations, and edema, Respiratory: Negative for shortness of breath, cough, wheezing, and pleuritic chest pain, Abdomen/GI: Negative for abdominal pain, nausea, vomiting, diarrhea, and constipation, Back: Negative for injury and pain, : Negative for injury, bleeding, discharge, and swelling, Skin: Negative for injury, rash, and discoloration, Neuro: Negative for headache, weakness, numbness, tingling, and seizure, Psych: Negative for depression, anxiety, suicide ideation, homicidal ideation, and hallucinations, Allergy/Immunology: Negative for hives, rash, and allergies, Endocrine: Negative for neck swelling, polydipsia, polyuria, polyphagia, and marked weight changes, Hematologic/Lymphatic: Negative for swollen nodes, abnormal bleeding, and unusual bruising, 22:10 MS/extremity: Positive for decreased range of motion, pain, of the lateral aspect of left calf, left calf, medial aspect of left calf and left valente, Exam: 22:14 Constitutional: This is a well developed, well nourished patient who is awake, alert, rajan and in no acute distress. Head/Face: Normocephalic, atraumatic. Eyes: Pupils equal round and reactive to light, extra-ocular motions intact. Lids and lashes normal. Conjunctiva and sclera are non-icteric and not injected. Cornea within normal limits. Periorbital areas with no swelling, redness, or edema. ENT: Nares patent. No nasal discharge, no septal abnormalities noted. Tympanic membranes are normal and external auditory canals are clear. Oropharynx with no redness, swelling, or masses, exudates, or evidence of obstruction, uvula midline. Mucous membranes moist. Neck: Trachea midline, no thyromegaly or masses palpated, and no cervical lymphadenopathy. Supple, full range of motion without nuchal rigidity, or vertebral point tenderness. No Meningismus. Chest/axilla: Normal chest wall appearance and motion. Nontender with no deformity. No lesions are appreciated. Cardiovascular: Regular rate and rhythm with a normal S1 and S2. No gallops, murmurs, or rubs. Normal PMI, no JVD. No pulse deficits. Respiratory: Lungs have equal breath sounds bilaterally, clear to auscultation and percussion. No rales, rhonchi or wheezes noted. No increased work of breathing, no retractions or nasal flaring. Abdomen/GI: Soft, non-tender, with normal bowel sounds. No distension or tympany. No guarding or rebound. No evidence of tenderness throughout. Back: No spinal tenderness. No costovertebral tenderness. Full range of motion. Skin: Warm, dry with normal turgor. Normal color with no rashes, no lesions, and no evidence of cellulitis. Neuro: Awake and alert, GCS 15, oriented to person, place, time, and situation. Cranial nerves II-XII grossly intact. Motor strength 5/5 in all extremities. Sensory grossly intact. Cerebellar exam normal. Normal gait. Psych: Awake, alert, with orientation to person, place and time. Behavior, mood, and affect are within normal limits. 22:14 Musculoskeletal/extremity: ROM: full active range of motion, full passive range of motion, limited active range of motion due to pain, limited passive range of motion due to pain, Circulation is intact in all extremities. Sensation intact. Compartment Syndrome exam of affected extremity: is normal. Weight bearing: able to fully bear weight, DVT Exam: no swelling, negative Homans' sign noted on exam, no appreciated bluish discoloration, no erythema, no increased warmth, pain, tenderness, Vital Signs: 21:21 BP 116 / 52; Pulse 94; Resp 17 S; Temp 98.5(O); Pulse Ox 100% on R/A; Weight 74.84 kg cp4 (R); Height 5 ft. 4 in. (R); Pain 7/10; 21:30 BP 116 / 52; Pulse 94; Resp 17; Pulse Ox 100% on R/A; Pain 8/10; rg5 22:30 BP 117 / 60; Pulse 88; Resp 17; Temp 98(O); Pulse Ox 100% ; Pain 3/10; rg5 21:21 Body Mass Index 28.32 (74.84 kg, 162.56 cm) cp4 21:21 Pain Scale: Adult cp4 21:30 Pain Scale: Adult rg5 22:30 Pain Scale: Adult rg5 MDM: 21:23 Patient medically screened. rajan 22:11 Differential diagnosis: closed fracture, contusion, abrasion, tendonitis. Data [facility] reviewed: vital signs, nurses notes, radiologic studies, doppler, plain films. Consideration of Admission/Observation Escalation of care including admission/observation considered. I considered the following discharge prescriptions or medication management in the emergency department Medications were administered in the Emergency Department. See MAR. Independent interpretation of the following test(s) in the Emergency Department X-Ray: My interpretation is NO FX. Test considered but Not performed: Labs: NO LABS. Historians other than the Patient: Spouse/Significant Other: SIG OTHER. Care significantly affected by the following chronic conditions: Diabetes, ANXIETY , BIPOLAR. Counseling: I had a detailed discussion with the patient and/or guardian regarding the historical points, exam findings, and any diagnostic results supporting the discharge/admit diagnosis, lab results, radiology results, the need for outpatient follow up, for definitive care, a family practitioner, a orthopedic surgeon. 05/14 21:25 Order name: Knee Left 3 View XRAY; Complete Time: 22:45 [facility] 05/14 22:02 Order name: US Extremity Venous W Compression Edwin [facility] 05/14 21:25 Order name: Ice pack; Complete Time: 22:40 [facility] 05/14 22:02 Order name: Knee Immobilizer; Complete Time: 23:16 rajan Administered Medications: 22:00 Drug: [place] PO 10 mg-325 mg 1 tabs PO once Route: PO; rg5 22:40 Follow up: Response: No adverse reaction; Pain is decreased rg5 22:01 Drug: Ibuprofen PO 600 mg PO once Route: PO; rg5 22:40 Follow up: Response: No adverse reaction; Pain is decreased rg5 Disposition Summary: 05/14/24 22:46 Discharge Ordered Notes: Location: Home rajan Problem: new rajan Symptoms: have improved rajan Condition: Stable rajan Diagnosis - Pain in left lower leg rajan - Pain in left knee rajan - Unspecified symptoms and signs involving the musculoskeletal system rajan Followup: rajan - With: Private Physician - When: 2 - 3 days - Reason: Recheck today's complaints, Continuance of care, Re-evaluation by your physician Followup: rajan - With: Ezra Macias MD - When: 2 - 3 days - Reason: Recheck today's complaints, Re-evaluation by your physician Discharge Instructions: - Discharge Summary Sheet rajan - How to Use a Knee Immobilizer rajan - Musculoskeletal Pain rajan - Acute Knee Pain, Adult rajan - How to Use a Knee Immobilizer, [id number] rajan - How to Use Cold Therapy rajan - Acute Knee Pain, Adult, Lysp-[id number] rajan Forms: - Medication Reconciliation Form rajan - Antibiotic Education rajan - Prescription Opioid Use rajan - Patient Portal Instructions rajan - Leadership Thank You Letter rajan - Work release form vk Prescriptions: - Ibuprofen 600 mg Oral Tablet - take 1 tablet ORAL route every 6 hours As needed take with food; 30 tablet; [facility] Refills: 0, Product Selection Permitted Signatures: Dispatcher [employer] Dre Rock MD MD cha Potter, Christina cp4 Edson Gamboa, RN RN rg5 Corrections: (The following items were deleted from the chart) 21:25 21:23 Allergies: Demerol; cp4 cp4
[2024-05-15 03:59] VITALS: O2SAT 100
[2024-05-15 04:03] VITALS: BP 117/60; TEMP 98
--- NOTE | 2024-05-16 08:18 | RAD REPORT ---
PROCEDURE: US BILATERAL LOWER EXTREMITY VENOUS DUPLEX DOPPLER TECHNIQUE: Duplex Doppler ultrasound of the BILATERAL common and superficial femoral, popliteal, post erior tibial and proximal deep femoral and greater saphenous veins was attempted. Rincon scale imaging with and without compression, spectral waveform analysis with and without augmentation, and color flow Doppler were employed. HISTORY: , , PAIN, Bed Name: 17 COMPARISONS: None FINDINGS: RIGHT LOWER EXTREMITY: Deep Venous Thrombus: None . Superficial Venous Thrombus: None . Venous valvular incompetence: None . Soft tissue abnormality: None . Other: None . LEFT LOWER EXTREMITY: Deep Venous Thrombus: None . Superficial Venous Thrombus: None . Venous valvular incompetence: None . Soft tissue abnormality: None . Other: None . IMPRESSION: No evidence of deep venous thrombosis in the lower extremities bilaterally. Electronically signed by: Otto Darby MD 05/14/2024 11:08 PM CDT RP QQL Due to temporary technical issues with the PACS/Proofpoint reporting system, reports are being tianna d by the in-house radiologist without review as a courtesy to ensure prompt reporting the interpreting radiologist is fully responsible for the content of the report. Transcribed Date/Time: 05/16/2024 8:22 AM
== END 2024-05-14 23:17 | disposition home or self-care (01) ==
LOC: ER 21:13
DX: M79.662 Pain in left lower leg (principal); M25.562 Pain in left knee; R29.91 Unspecified symptoms and signs involving the musculoskeletal system; E10.9 Type 1 diabetes mellitus without complications; Z79.4 Long term (current) use of insulin
CPT/HCPCS: 93970; 99283

== ENCOUNTER 2024-10-14 13:26 | Emergency (ER) | payer OTHER ==
[2024-10-14] MEDS ORDERED: DIPHENHYDRAMINE 50 MG/ML VIAL ONE (14:54)
[2024-10-14] MEDS ORDERED: NA CHLORIDE 0.9% 1,000 ML ONE (14:54)
[2024-10-14] MEDS ORDERED: FAMOTIDINE 20 MG/2 ML VIAL IV ONE (14:54)
[2024-10-14] MEDS ORDERED: METOCLOPRAMIDE 10 MG/2mL INJ ONE (14:54)
[2024-10-14] MEDS ORDERED: NA CHLORIDE 0.9% 50 ML ONE (14:55)
[2024-10-14 15:04] LABS: Absolute Lymphocytes (CBC) 1.6 K/uL (0.7-4.9); Absolute Monocytes 0.4 K/uL (0.1-1.3); Absolute Neutrophil 5.3 K/uL (1.8-8.0); Basophils % 0.5 % (0-1.3); Eosinophils % 0.7 % (0-4.4); Hematocrit 22.7 % (36.0-45.0); Hemoglobin 7.7 g/dL (12.0-15.0); Lymphocytes % 21.9 % (15.3-44.8); MCH 28.8 pg (27.0-35.0); MCHC 34.1 g/dL (32.0-36.0); MCV 84.4 fL (80-100); Neutrophils % 71.9 % (41.7-73.7); Platelets 259 thou/uL (152-406); RBC Red Blood Cell Count 2.69 M/uL (3.86-4.86); Red Cell Distribution Width 13.3 % (12.1-15.2)
[2024-10-14 15:16] LABS: Specific Gravity 1.015 (1.005-1.030); Urine Bacteria None Seen /HPF (<20); Urine Bilirubin NEGATIVE (Negative); Urine Blood Negative (Negative); Urine Clarity Extremely Turbid (Clear); Urine Color Light-Yellow (Yellow); Urine Culture Reflex Order NOT NEEDED; Urine Glucose NEGATIVE (Negative); Urine Ketones 1+ (Negative); Urine Microscopic Reflex YN ORDER UMIC; Urine Mucus Slight /HPF (None Seen); Urine Nitrite NEGATIVE (Negative); Urine Protein 1+ (Negative); Urine RBC <5 /HPF (None Seen); Urine Urobilinogen Normal (Normal); Urine WBC <5 /HPF (<5); Urine WBC Clump Rare /HPF (None Seen); Urine pH 8.5 (5.0-7.0)
[2024-10-14 15:20] LABS: AST/SGOT 11 U/L (15-37); Albumin 3.4 g/dL (3.4-5.0); Albumin/Globulin Ratio 0.8 (1.1-1.8); Alkaline Phosphatase 83 U/L (45-117); Anion Gap 7.7 mEq/L (5.0-15.0); BUN Blood Urea Nitrogen 12 mg/dL (7-18); Bicarbonate 26 mEq/L (21-32); Bilirubin Total 0.5 mg/dL (0.2-1.0); Globulin 4.1 g/dL (2.3-3.5); Glomerular Filtration Rate 82 ml/min (=/>90); Glucose Level 194 mg/dL (74-106); Lipase 20 U/L (13-75); Magnesium 1.7 mg/dL (1.6-2.4); Potassium 3.7 mEq/L (3.5-5.1); Protein, Total 7.5 g/dL (6.4-8.2); Sodium Level 136 mEq/L (136-145)
[2024-10-14 15:22] LABS: ALT/SGPT < 14 U/L (13-56)
--- NOTE | 2024-10-14 16:20 | RAD REPORT ---
EXAMINATION: ONE VIEW CHEST XR CLINICAL INDICATION: Female, 24 years old.,upper abdomen pain, vomiting TECHNIQUE: Frontal chest projection is submitted. Examination is limited by patient positioning and t echnique. COMPARISON: 07/08/2022 FINDINGS: The lungs are well inflated and clear. No pneumothorax or sizable effusion. The heart is normal in s ize. Mediastinal contours are unremarkable. IMPRESSION: No acute intrathoracic abnormalities.
--- NOTE | 2024-10-14 16:21 | RAD REPORT ---
EXAMINATION: US Abdomen Exam Limited CLINICAL HISTORY: [facility] MAIN Y ABD PAIN Bed Name: 8 COMPARISON: None. TECHNIQUE: Limited upper abdominal grayscale and color flow sonographic images. FINDINGS: Gallbladder: Normal. Negative sonographic Chao sign Bile ducts: No intrahepatic or extrahepatic biliary dilatation. Common bile duct measures 2 mm. Liver: Visualized portions of the liver demonstrate normal echogenicity with no suspicious findings. Fluid: No ascites. IMPRESSION: No abnormalities on right upper quadrant ultrasound.
--- NOTE | 2024-10-14 16:34 | RAD REPORT ---
EXAMINATION: CT Abdomen Pelvis W Contrast CLINICAL INDICATION: Female, 24 years old. EPIGASTRIC PAIN TECHNIQUE: CT abdomen and pelvis was performed, after the administration of IV contrast, as per [facility] protocol. Axial, sagittal and coronal reconstructions were obtained. One or more of the following dose reduction techniques were used: Automated exposure control, adjustment of the mA and k V according to patient size, and iterative reconstruction. Unless otherwise specified, incidental findings do not require dedicated imaging follow-up. COMPARISON: 04/24/2024 FINDINGS: LOWER CHEST: The visualized lung bases are clear. LIVER: Normal in size and contour. No focal lesion. BILIARY SYSTEM: No suspicious abnormalities. SPLEEN: Normal size. No focal lesion. PANCREAS: No mass, ductal dilation, or ana-pancreatic fluid. ADRENALS: Normal; no mass. KIDNEYS: Normal size and contour. No hydronephrosis. URINARY BLADDER: Decompressed limiting evaluation. GASTROINTESTINAL TRACT: No evidence of free air, significant intra-abdominal free fluid, bowel obstru ction or abscess. APPENDIX: Appendix surgically absent. LYMPH NODES: No lymphadenopathy. MUSCULOSKELETAL: No acute or suspicious osseous abnormality. ADDITIONAL FINDINGS: Dominant right adnexal cyst or follicle measuring 2.7 cm, probably physiologic. IMPRESSION: No acute or concerning abnormalities seen in the abdomen or pelvis.
--- NOTE | 2024-10-14 16:55 | EDPHYS ---
Physician Documentation [facility] Name: Salome Santacruz Age: 24 yrs Sex: Female : 2000 Arrival Date: 10/14/2024 Time: 13:26 Bed 8 Private MD: ED Physician Joe Carreon HPI: 10/14 13:35 This 24 yrs old Female presents to ER via EMS with complaints of Abdominal Pain. cp 13:35 The patient presents with abdominal pain in the epigastric area, in the upper abdomen. cp 13:35 Onset: The symptoms/episode began/occurred today. The symptoms do not radiate. cp Associated signs and symptoms: Pertinent positives: nausea and vomiting, Pertinent negatives: blood in stools, diarrhea, dysuria, fever, vomiting blood, dark/black/tarry stools. The symptoms are described as constant. Modifying factors: the symptoms are aggravated by movement, pressure. Severity of pain: in the emergency department the pain is unchanged despite EMS interventions. Historical: - Allergies: 13:28 Keflex; ld1 13:28 Midol; ld1 13:28 Latex; ld1 13:28 Phenergan; ld1 13:28 raw onions; ld1 - PMHx: 13:28 Anxiety; Bipolar disorder; Depression; Diabetes - IDDM; Migraine; Type 1 Diabetes ld1 Mellitus; - PSHx: 13:28 section; tubal ligation; ld1 - Immunization history:: Adult Immunizations up to date. - Infectious Disease History:: Denies. - Social history:: Smoking status: Patient denies any tobacco usage or history of. ROS: 13:40 Constitutional: Negative for body aches, chills, fever, cp 13:40 Eyes: Negative for injury, pain, redness, and discharge, cp 13:40 ENT: Negative for drainage from ear(s), ear pain, sore throat, difficulty swallowing, difficulty handling secretions, 13:40 Cardiovascular: Negative for chest pain, palpitations, 13:40 Respiratory: Negative for cough, shortness of breath, wheezing, 13:40 Abdomen/GI: Positive for abdominal pain, nausea and vomiting, Negative for diarrhea, constipation, hematemesis, black/tarry stool, rectal bleeding, 13:40 Back: Negative for pain at rest, pain with movement, radiated pain, 13:40 : Negative for urinary symptoms, hematuria, flank pain, 13:40 Neuro: Negative for altered mental status, headache, syncope, weakness, 13:40 All other systems are negative, Exam: 13:45 Constitutional: The patient appears in no acute distress, alert, awake, cp non-diaphoretic, non-toxic, well developed, well nourished, uncomfortable, 13:45 Head/Face: Normocephalic, atraumatic. cp 13:45 Eyes: Periorbital structures: appear normal, Conjunctiva: normal, no exudate, no injection, Sclera: no appreciated abnormality, Lids and lashes: appear normal, bilaterally, 13:45 ENT: External ear(s): are unremarkable, Nose: is normal, Mouth: Lips: moist, Oral mucosa: moist, Posterior pharynx: Airway: no evidence of obstruction, patent, 13:45 Neck: ROM/movement: is normal, is supple, without pain, no range of motions limitations, no meningismus, 13:45 Chest/axilla: Inspection: normal, 13:45 Cardiovascular: Rate: normal, Rhythm: regular, Edema: is not appreciated, JVD: is not appreciated, 13:45 Respiratory: the patient does not display signs of respiratory distress, Respirations: normal, no use of accessory muscles, no retractions, labored breathing, is not present, Breath sounds: are clear throughout, no decreased breath sounds, no stridor, no wheezing, 13:45 Abdomen/GI: Inspection: abdomen appears normal, Bowel sounds: active, all quadrants, Palpation: soft, in all quadrants, severe abdominal tenderness, in the epigastric area, right upper quadrant and left upper quadrant, rebound tenderness, is not appreciated, involuntary guarding, is not appreciated, 13:45 Back: CVA tenderness, is absent, 13:45 Neuro: Orientation: to person, place \T\ time. Mentation: is normal, Motor: moves all fours, no focal deficits, Sensation: no obvious gross deficits, Vital Signs: 13:30 BP 123 / 90; Pulse 96; Resp 16; Temp 98(TE); Pulse Ox 100% on R/A; Height 5 ft. 4 in. ; ld1 Pain 7/10; 15:15 BP 121 / 76; Pulse 89; Resp 18; Pulse Ox 100% on R/A; ph 16:18 BP 130 / 81; Pulse 94; Resp 18; Pulse Ox 100% on R/A; ph 17:30 BP 125 / 79; Pulse 81; Resp 18; Temp 97.5; Pulse Ox 98% on R/A; ph 13:30 Pain Scale: Adult ld1 MDM: 15:00 Differential diagnosis: appendicitis, bowel obstruction, cholecystitis, Cholelithiasis, cp gastritis, pancreatitis, Peptic Ulcer Disease, Perf. Duodenal Ulcer, Perf. Gastric Ulcer, Pyelonephritis, Ureterolithiasis, urinary tract infection, GI bleed. 16:54 Medical Screening Exam initiated 16:54 Data reviewed: vital signs, nurses notes, and as a result, I will. 16:54 I considered the following discharge prescriptions or medication management in the emergency department Medications were administered in the Emergency Department. See MAR. Care significantly affected by the following chronic conditions: Diabetes. Counseling: I had a detailed discussion with the patient and/or guardian regarding the historical points, exam findings, and any diagnostic results supporting the discharge/admit diagnosis, lab results, radiology results, the need for outpatient follow up, a family practitioner, a sales closer, to return to the emergency department if symptoms worsen or persist or if there are any questions or concerns that arise at home. Response to treatment: the patient's symptoms have markedly improved after treatment, and as a result, I will discharge patient. Special discussion: Based on the patient's Hx, exam, and Dx evaluation, there is no indication for emergent surgery or inpatient Tx. It is understood by the patient/guardian that if the Sx's persist or worsen they need to return immediately for re-evaluation. ED course: VSS. Patient denies blood in stools and/or dark tarry stools, no vaginal bleeding at this time. Discussed H/H and recommendation of f/u with pcp and GI. Return to ED worsening symptoms. 10/14 13:32 Order name: CBC with Diff; Complete Time: 15:22 10/14 15:23 Interpretation: Normal except: RBC 2.69; HGB 7.7; HCT 22.7; MPV 7.0. 10/14 13:32 Order name: CMP; Complete Time: 15:22 10/14 15:23 Interpretation: Normal except: GLUC 194; GFR 82; AST 11; GLOB 4.1; A/G 0.8. cp 10/14 13:32 Order name: Lipase; Complete Time: 15:22 cp 10/14 13:32 Order name: Test, Urine; Complete Time: 15:22 cp 10/14 13:32 Order name: Urinalysis w/ reflexes; Complete Time: 15:22 cp 10/14 15:23 Interpretation: Normal except: [facility] Extremely Turbid; UKET 1+; UPH 8.5; UPROT 1+. cp 10/14 13:33 Order name: Magnesium; Complete Time: 15:22 cp 10/14 15:07 Order name: XRAY Chest (1 view); Complete Time: 16:35 cp 10/14 16:35 Interpretation: Report review. cp 10/14 15:07 Order name: US Abdomen Limited: gallbladder; Complete Time: 16:35 cp 10/14 16:36 Interpretation: Report reviewed. 10/14 15:27 Order name: CT Abd/Pelvis - IV Contrast Only: CT angio study; Complete Time: 16:35 cp 10/14 16:36 Interpretation: Report reviewed. 10/14 13:32 Order name: IV Saline Lock; Complete Time: 15:18 cp 10/14 13:32 Order name: Labs collected and sent; Complete Time: 15:18 cp 10/14 15:07 Order name: NPO; Complete Time: 15:11 cp Administered Medications: 15:17 Drug: diphenhydrAMINE IVP 25 mg IVP once Route: IVP; Site: left antecubital; ph 16:00 Follow up: Response: No adverse reaction ph 15:18 Drug: Famotidine IVP 20 mg IVP once; dilute with 10 mL 0.9% NaCl; give over 2 minutes ph Route: IVP; Site: left antecubital; 16:00 Follow up: Response: No adverse reaction ph 15:18 Drug: NS 0.9% IV 1000 ml IV at 1 bolus Per protocol; to be given as a bolus over 60 ph minutes Route: IV; Rate: 1 bolus; Site: left antecubital; 16:30 Follow up: Response: No adverse reaction; IV Status: Completed infusion; IV Intake: ph 1000ml 15:18 Drug: metoCLOPramide IVP 10 mg IVP once; over 1 to 2 minutes Route: IVP; Site: left ph antecubital; 16:30 Follow up: Response: No adverse reaction ph Disposition: 20:35 Co-signature as Attending Physician, Joe Carreon MD I reviewed the patient's care rn provided by the Advanced Practice Provider and agree with the diagnosis and treatment plan. Disposition Summary: 10/14/24 16:54 Discharge Ordered Notes: Location: Home cp Problem: new cp Symptoms: have improved cp Condition: Stable cp Diagnosis - Nausea with vomiting, unspecified cp - Upper abdominal pain, unspecified cp - Anemia, unspecified cp Followup: cp - With: Private Physician - When: 2 - 3 days - Reason: Recheck today's complaints Discharge Instructions: - Discharge Summary Sheet cp - Abdominal Pain, Adult cp - Anemia cp - Gastritis, Adult cp - Nausea and Vomiting, Adult cp Forms: - Medication Reconciliation Form cp - Antibiotic Education cp - Prescription Opioid Use cp - Patient Portal Instructions cp - Leadership Thank You Letter cp - Family Work Release hb Prescriptions: - Protonix 40 mg Oral Tablet - take 1 tablet ORAL route once daily; 30 tablet; Refills: 0, Product Selection cp Permitted - Reglan 10 mg Oral tablet - take 1 tablet ORAL route every 6 hours take 30 minutes before meals and at cp bedtime; 30 tablet; Refills: 0, Product Selection Permitted Signatures: Dispatcher [employer] EDJoe Briseno MD MD rn Hall, Patricia, RN RN ph Dre Brothers PA PA cp Kendra Castor, RN RN ld1 Corrections: (The following items were deleted from the chart) 13:33 13:33 CBC+H.LAB.BRZ ordered. EDMS EDMS 13:33 13:33 COMPREHENSIVE METABOLIC PANEL+C.LAB.BRZ ordered. EDMS EDMS 13:33 13:33 LIPASE+C.LAB.BRZ ordered. EDMS EDMS 13:33 13:33 Test, Urine+UC.LAB.BRZ ordered. EDMS EDMS 13:33 13:33 Urinalysis+U.LAB.BRZ ordered. EDMS EDMS 15:08 15:08 Abdomen Limited+US.RAD.BRZ ordered. EDMS EDMS
--- NOTE | 2024-10-14 16:55 | ER ---
Nurse's Notes [facility] Name: Salome Santacruz Age: 24 yrs Sex: Female : 2000 Arrival Date: 10/14/2024 Time: 13:26 Bed 8 Private MD: Diagnosis: Nausea with vomiting, unspecified;Upper abdominal pain, unspecified;Anemia, unspecified Presentation: 10/14 13:29 Chief complaint: EMS states: toned out to side of road for abdominal pain. Coronavirus ld1 screen: At this time, the client does not indicate any symptoms associated with coronavirus-19. Ebola Screen: No symptoms or risks identified at this time. Initial Sepsis Screen: Does the patient meet any 2 criteria? No. Patient's initial sepsis screen is negative. Does the patient have a suspected source of infection? No. Patient's initial sepsis screen is negative. Risk Assessment: Do you want to hurt yourself or someone else? Patient reports no desire to harm self or others. Onset of symptoms was October 14, 2024. 13:29 Method Of Arrival: EMS: [facility] ld1 13:29 Acuity: BRIAN 3 ld1 Triage Assessment: 13:30 General: Appears in no apparent distress. uncomfortable, Behavior is calm, cooperative, ld1 appropriate for age. Pain: Complains of pain in abdomen Pain does not radiate. Pain currently is 8 out of 10 on a pain scale. Quality of pain is described as throbbing, Pain began suddenly, Is continuous. EENT: No signs and/or symptoms were reported regarding the EENT system. Neuro: Level of Consciousness is awake, alert, obeys commands, Oriented to person, place, time, situation. Cardiovascular: Capillary refill < 3 seconds Patient's skin is warm and dry. Respiratory: Airway is patent Respiratory effort is even, unlabored. GI: Abdomen is round non-distended, Reports lower abdominal pain, upper abdominal pain. Historical: - Allergies: 13:28 Keflex; ld1 13:28 Midol; ld1 13:28 Latex; ld1 13:28 Phenergan; ld1 13:28 raw onions; ld1 - PMHx: 13:28 Anxiety; Bipolar disorder; Depression; Diabetes - IDDM; Migraine; Type 1 Diabetes ld1 Mellitus; - PSHx: 13:28 section; tubal ligation; ld1 - Immunization history:: Adult Immunizations up to date. - Infectious Disease History:: Denies. - Social history:: Smoking status: Patient denies any tobacco usage or history of. Screenin:11 [facility] ED Fall Risk Assessment (Adult) History of falling in the last 3 months, ph including since admission No falls in past 3 months (0 pts) Confusion or Disorientation No (0 pts) Intoxicated or Sedated No (0 pts) Impaired Gait No (0 pts) Mobility Assist Device Used No (0 pt) Altered Elimination No (0 pt) Score/Fall Risk Level 0 - 2 = Low Risk Oriented to surroundings, Maintained a safe environment, Hourly rounding (assess needs \T\ fall precautionary measures) done. Abuse screen: Denies threats or abuse. Denies injuries from another. Nutritional screening: No deficits noted. Tuberculosis screening: No symptoms or risk factors identified. Assessment: 15:13 General: Appears in no apparent distress. uncomfortable, Behavior is calm, cooperative, ph appropriate for age. Pain: Complains of pain in abdomen. Neuro: Level of Consciousness is awake, alert, obeys commands, Oriented to person, place, time, situation. Cardiovascular: Capillary refill < 3 seconds in bilateral fingers Patient's skin is warm and dry. Respiratory: Airway is patent Respiratory effort is even, unlabored. GI: Abdomen is non-distended, Bowel sounds present X 4 quads. Abd is soft X 4 quads. GI: Reports lower abdominal pain, upper abdominal pain, nausea, vomiting. Derm: Skin is pink, warm \T\ dry. 16:45 Reassessment: Patient appears in no apparent distress at this time. Patient and/or ph family updated on plan of care and expected duration. Pain level reassessed. Patient is alert, oriented x 3, equal unlabored respirations, skin warm/dry/pink. Vital Signs: 13:30 BP 123 / 90; Pulse 96; Resp 16; Temp 98(TE); Pulse Ox 100% on R/A; Height 5 ft. 4 in. ; ld1 Pain 7/10; 15:15 BP 121 / 76; Pulse 89; Resp 18; Pulse Ox 100% on R/A; ph 16:18 BP 130 / 81; Pulse 94; Resp 18; Pulse Ox 100% on R/A; ph 17:30 BP 125 / 79; Pulse 81; Resp 18; Temp 97.5; Pulse Ox 98% on R/A; ph 13:30 Pain Scale: Adult ld1 ED Course: 13:28 Patient arrived in ED. mr 13:29 Dre Brothers PA is PHCP. cp 13:30 Joe Carreon MD is Attending Physician. cp 13:30 Triage completed. ld1 13:41 Arm band placed on right wrist. ld1 14:40 Angie Ha RN is Primary Nurse. ph 15:11 Patient has correct armband on for positive identification. Bed in low position. Call ph light in reach. Side rails up X 1. Pulse ox on. NIBP on. Door closed. Noise minimized. Lights dimmed. Warm blanket given. Pillow given. 15:12 Initial lab(s) drawn, by me, sent to lab. Urine collected:. Maintain EMS IV. Dressing ph intact. Good blood return noted. Site clean \T\ dry. Gauge \T\ site: 20 LAC. Flushed with 10 mL NS. 15:20 XRAY Chest (1 view) In Process Unspecified. EDMS 15:41 US Abdomen Limited: gallbladder In Process Unspecified. EDMS 15:43 CT Abd/Pelvis - IV Contrast Only: CT angio study In Process Unspecified. EDMS 17:41 No provider procedures requiring assistance completed. IV discontinued, intact, ph bleeding controlled, No redness/swelling at site. Pressure dressing applied. Administered Medications: 15:17 Drug: diphenhydrAMINE IVP 25 mg IVP once Route: IVP; Site: left antecubital; ph 16:00 Follow up: Response: No adverse reaction ph 15:18 Drug: Famotidine IVP 20 mg IVP once; dilute with 10 mL 0.9% NaCl; give over 2 minutes ph Route: IVP; Site: left antecubital; 16:00 Follow up: Response: No adverse reaction ph 15:18 Drug: NS 0.9% IV 1000 ml IV at 1 bolus Per protocol; to be given as a bolus over 60 ph minutes Route: IV; Rate: 1 bolus; Site: left antecubital; 16:30 Follow up: Response: No adverse reaction; IV Status: Completed infusion; IV Intake: ph 1000ml 15:18 Drug: metoCLOPramide IVP 10 mg IVP once; over 1 to 2 minutes Route: IVP; Site: left ph antecubital; 16:30 Follow up: Response: No adverse reaction ph Medication: 15:11 VIS not applicable for this client. ph Intake: 16:30 IV: 1000ml; Total: 1000ml. ph Outcome: 16:54 Discharge ordered by . cp 17:41 Patient left the ED. ph 17:54 Discharged to home ambulatory, with significant other, ph 17:54 Condition: good 17:54 Discharge instructions given to patient, Instructed on discharge instructions, follow up and referral plans. medication usage, Demonstrated understanding of instructions, follow-up care, medications, Prescriptions given X 2, Signatures: Dispatcher [employer] EDMS Vale Hall, Andrew Reg mr Angie Ha RN RN ph Dre Brothers PA PA cp Sims, Lauren RN RN ld1
[2024-10-14 17:55] VITALS: TEMP 98; O2SAT 100
[2024-10-14 17:57] VITALS: BP 130/81
== END 2024-10-14 17:41 | disposition home or self-care (01) ==
LOC: ER 13:26
DX: R11.2 Nausea with vomiting, unspecified (principal); R10.13 Epigastric pain; D64.9 Anemia, unspecified
CPT/HCPCS: 96361; 85025; 81001; 36415; 83735; 81025; 83690; 80053; 74177; 71045; 76705; 96375; 96374; 99284; Q9967; J2765; J1200; J7030